=== PATIENT | female | born 1960 | race Caucasian/White ===

== ENCOUNTER 2016-06-30 14:23 | Inpatient (IN) | payer MEDICAID, MEDICARE ==
[2016-06-30] MEDS ORDERED: Ondansetron INJ* 2 MG/ML VIAL IV ONE (15:45)
[2016-06-30] MEDS ORDERED: Morphine INJ* 4 MG/ML 1 ML CARPUJECT IV ONE (15:45)
[2016-06-30 15:55] LABS: Hematocrit 33 % (35-47); Hemoglobin 10.4 g/dl (12.0-16.0); Mean Corpuscular HGB Conc 32 g/dl (31-36); Mean Corpuscular Hemoglobin 27 pg (27-31); Mean Corpuscular Volume 85 fL (80-97); Mean Platelet Volume 7 um3 (7.4-10.4); Red Blood Count 3.81 10^6/ul (4.0-5.4); Red Cell Distribution Width 15 % (10.5-15); White Blood Count 6.1 10^3/ul (3.5-10.8)
[2016-06-30 16:06] LABS: Albumin 3.1 g/dL (3.2-5.2); BUN/Creatinine Ratio 4.8 (8-20); Calcium 9.3 mg/dL (8.6-10.3); EGFR African American 3.4 (>60); EGFR Non-African American 2.6 (>60); Globulin 3.1 g/dL (2-4); Magnesium 2.6 mg/dL (1.9-2.7); Phosphorus 9.5 mg/dL (2.5-5.0); Potassium 5.1 mmol/L (3.5-5.0); Total Bilirubin 0.4 mg/dL (0.2-1.0); Total Protein 6.2 g/dL (6.4-8.9)
[2016-06-30 16:22] LABS: Troponin I 0.07 ng/mL (<0.04)
[2016-06-30 16:30] LABS: TSH (Thyroid Stimulating Horm) 4.18 mcIU/mL (0.34-5.60)
--- NOTE | 2016-06-30 16:30 | RAD ---
INDICATION: Left lower posterior chest pain, not eating, diarrhea. COMPARISON: Comparison is made with a prior CT of the chest from January 04, [address] of the abdomen and pelvis from August 12, 2015. TECHNIQUE: A CT scan of the chest, abdomen and pelvis was performed without intravenous or oral contrast. Contiguous axial sections were obtained from the lung apices through the symphysis pubis. Images were reconstructed in the coronal and sagittal planes. FINDINGS: There are bilateral diffuse groundglass infiltrates with smaller consolidative infiltrates in the anterior aspect of the right upper lobe and within the lingula. There are small bilateral pleural effusions. The lungs are hyperinflated most consistent with chronic obstructive pulmonary disease. No significant enlarged mediastinal or hilar lymph nodes are seen. The heart is mildly enlarged. The thoracic aorta is normal in caliber. There is moderate calcific plaque present. The liver is moderately enlarged. There is a 2.0 cm fluid density lesion in the superior aspect of the right hepatic lobe which is unchanged from the prior exam most consistent with a cyst. The spleen is moderately enlarged and unchanged. The gallbladder is distended. No calcified gallstones are seen. No pancreatic ductal distention or calcifications are seen. The kidneys are enlarged with numerous cysts simple and complex and multiple renal calcifications and calculi most consistent with autosomal dominant polycystic kidney disease. No gross hydronephrosis is seen. The aorta is normal in caliber and there is severe calcific plaque present. No significant enlarged retroperitoneal lymph nodes are seen. There is a small hiatal hernia. The stomach, small and large bowel appear nondistended. The appendix is not visualized. There is mild thickening of the wall of the ascending colon suggesting the possibility of colitis. There is moderate to severe sigmoid diverticulosis without evidence for diverticulitis. There is a peritoneal dialysis catheter present within the right lower quadrant. There is a small amount of free intraperitoneal fluid present within the abdomen and pelvis. No free peritoneal air is seen. There are multiple old bilateral rib fractures some of which are ununited. There is a ununited fracture of the manubrium of the sternum and likely subacute in duration. There is a subacute fracture of the anterolateral aspect of the right iliac crest with surrounding bony callus. There are old healed fractures of the inferior pubic rami on both sides. IMPRESSION: 1. THE DIFFUSE BILATERAL GROUNDGLASS INFILTRATES AND SMALL BILATERAL PLEURAL EFFUSIONS MOST CONSISTENT WITH CONGESTIVE HEART FAILURE LESS LIKELY PNEUMONIA. 2. MILD THICKENING OF THE WALL OF THE ASCENDING COLON SUGGESTING THE POSSIBILITY OF COLITIS. 3. FINDINGS CONSISTENT WITH AUTOSOMAL DOMINANT POLYCYSTIC KIDNEY DISEASE WITH MULTIPLE SIMPLE, COMPLEX CYSTS AND RENAL CALCULI. 4. HEPATOSPLENOMEGALY, UNCHANGED. 5. THERE IS A PERITONEAL DIALYSIS CATHETER IN PLACE AND A SMALL AMOUNT OF FREE INTRAPERITONEAL FLUID. 5. SUBACUTE FRACTURES OF THE MANUBRIUM AND RIGHT ILIAC CREST.
[2016-06-30] MEDS ORDERED: NS 0.9% 500 ML* 500 ML IV ONE (18:14)
[2016-06-30] MEDS ORDERED: Al Hydrox/Mg Hydrox/Simet LIQ* 30 ML UDC PO PRN (18:15)
[2016-06-30] MEDS ORDERED: traMADol TAB* 50 MG PO PRN (18:18)
[2016-06-30] MEDS ORDERED: LORazepam TAB(*) 1 MG PO PRN (18:18)
[2016-06-30] MEDS ORDERED: Acetaminophen TAB* 325 MG PO PRN (18:18)
--- NOTE | 2016-06-30 18:50 | ED ---
Armaan Morales Janilya, scribed for Rohith Hassan MD on 06/30/16 at 1534 . GI/ HPI <Michelle Hernadez - Last Filed: 06/30/16 16:24> - HPI Summary HPI Summary: A 55 y/o came in to [facility] presenting w/ flu-like symptoms starting "a few days ago". Pt reports nausea, body aches, chills, diarrhea, unsure about fever. In addition, pt states she has baseline left sided abd pain that she has had for about a month due to a fall that resulted in broken ribs. Pain worse with palpation. Pt denies rash, but confirms itchy sensations. Pt has not had an adequate diet for about a week. PMHx polycystic renal disease and peritoneal dialysis for about 10 years. Pt did not take any pain medication today. Pt normally takes Hydrocodone. - History of Current Complaint Hx Obtained From: Patient Onset/Duration: Started Days Ago, Still Present Timing: Constant, Lasting Days Severity: Moderate Current Severity: Moderate Pain Intensity: 8 Location of Pain: LUQ, LLQ - Additional Pertinent History Primary Care Physician: [id number] <Rohith Hassan - Last Filed: 06/30/16 18:50> - History of Current Complaint Chief Complaint: EDGeneral Time Seen by Provider: 06/30/16 14:38 Stated Complaint: HAVENT EATEN IN DAYS DIALYSIS PT - Allergy/Home Medications Allergies/Adverse Reactions: Allergies Allergy/AdvReac Type Severity Reaction Status Date / Time Adhesive Tape Allergy Hives Verified 06/30/16 14:30 Codeine Allergy GI Upset Verified 06/30/16 14:30 PMH/Surg Hx/FS Hx/Imm Hx Endocrine/Hematology History: Reports: Hx Anemia - gets epogen shot Denies: Hx Diabetes, Hx Systemic Lupus Erythematosus, Hx Thyroid Disease Cardiovascular History: Reports: Hx Aneurysm, Hx Congestive Heart Failure, Hx Coronary Artery Disease, Hx Hypercholesterolemia, Hx Hypertension, Other Cardiovascular Problems/Disorders - CAD, PR Denies: Hx Pacemaker/ICD, Hx Peripheral Vascular Disease Respiratory History: Reports: Hx Chronic Obstructive Pulmonary Disease (COPD), Hx Pleural Effusion Denies: Hx Pneumonia GI History: Reports: Hx Gastroesophageal Reflux Disease, Hx Ulcer History: Reports: Hx Chronic Renal Failure, Hx Dialysis, Hx Kidney Infection , Hx Renal Disease - dialysis daily, Other Problems/Disorders - polycystic kidney Denies: Hx Kidney Stones Musculoskeletal History: Reports: Hx Rheumatoid Arthritis, Other Musculoskeletal History - LEFT HIP FX Denies: Hx Arthritis, Hx Osteoporosis Sensory History: Reports: Hx Contacts or Glasses - reading glasses only Denies: Hx Cataracts, Hx Glaucoma, Hx Deafness, Hx Hearing Aid, Hx Hearing Problem Opthamlomology History: Reports: Hx Contacts or Glasses - reading glasses only Denies: Hx Cataracts, Hx Glaucoma Neurological History: Reports: Hx CVA, Other Neuro Impairments/Disorders - brain aneurism Psychiatric History: Reports: Hx Anxiety Denies: Hx Depression, Hx Panic Disorder, Hx Post Traumatic Stress Disorder, Other Psychiatric Issues/Disorders - Cancer History Hx Chemotherapy: No - Surgical History Surgery Procedure, Year, and Place: dialysis port x2 Hx Anesthesia Reactions: No - Immunization History Date of Tetanus Vaccine: Unknown Infectious Disease History: No Infectious Disease History: Denies: Traveled Outside the [place] in Last 30 Days - Family History Known Family History: Negative: Cardiac Disease, Hypertension, Diabetes - Social History Alcohol Use: None Substance Use Type: Reports: None Smoking Status (MU): Former Smoker Type: Cigarettes Amount Used/How Often: not much, only while in college Have You Smoked in the Last Year: No <Rohith Hassan - Last Filed: 06/30/16 18:50> Review of Systems Positive: Fever - pt is unsure, Chills Positive: Diarrhea, Nausea Positive: Arthralgia - left sided tenderness, Myalgia - left sided tenderness Negative: Rash - pt confirms itchy sensations All Other Systems Reviewed And Are Negative: Yes <Rohith Hassan - Last Filed: 06/30/16 18:50> Physical Exam Vital Signs On Initial Exam: Initial Vitals Temp Pulse Resp BP Pulse Ox 98.1 F 72 18 139/74 100 06/30/16 14:30 06/30/16 14:30 06/30/16 14:30 06/30/16 14:30 06/30/16 14:30 <Michelle Hernadez - Last Filed: 06/30/16 16:24> Triage Information Reviewed: Yes Vital Signs On Initial Exam: Initial Vitals Temp Pulse Resp BP Pulse Ox 98.1 F 72 18 139/74 100 06/30/16 14:30 06/30/16 14:30 06/30/16 14:30 06/30/16 14:30 06/30/16 14:30 Vital Signs Reviewed: Yes Appearance: Positive: Ill-Appearing - mild-moderately, pale Skin: Positive: Warm, Skin Color Reflects Adequate Perfusion, Dry Head/Face: Positive: Normal Head/Face Inspection, Other - dry mucous membrane Eyes: Positive: EOMI, HEVER ENT: Positive: Normal ENT inspection Neck: Positive: Supple, Nontender Respiratory/Lung Sounds: Positive: Clear to Auscultation, Breath Sounds Present Cardiovascular: Positive: RRR Abdomen Description: Positive: Nontender, Soft Bowel Sounds: Positive: Hypoactive Musculoskeletal: Positive: Other - tenderness in left posterior ribs Neurological: Positive: Normal, Sensory/Motor Intact, Alert, Oriented to Person Place, Time Psychiatric: Positive: Affect/Mood Appropriate <Rohith Hassan - Last Filed: 06/30/16 18:50> Diagnostics - Vital Signs Vital Signs Temp Pulse Resp BP Pulse Ox 06/30/16 16:00 17 06/30/16 15:36 70 90 06/30/16 15:34 146/71 06/30/16 14:30 98.1 F 72 18 139/74 100 - Laboratory Lab Results: Lab Results 06/30/16 06/30/16 06/30/16 Range/Units 15:35 15:35 15:35 WBC 6.1 (3.5-10.8) 10^3/ul RBC 3.81 L (4.0-5.4) 10^6/ul Hgb 10.4 L (12.0-16.0) g/dl Hct 33 L (35-47) % MCV 85 (80-97) fL MCH 27 (27-31) pg MCHC 32 (31-36) g/dl RDW 15 (10.5-15) % Plt Count 151 (150-450) 10^3/ul MPV 7 L (7.4-10.4) um3 Neut % (Auto) 76.3 (38-83) % Lymph % (Auto) 14.2 L (25-47) % Isabella % (Auto) 8.5 (1-9) % Eos % (Auto) 0 (0-6) % Baso % (Auto) 1.0 (0-2) % Absolute Neuts (auto) 4.7 (1.5-7.7) 10^3/ul Absolute Lymphs (auto) 0.9 L (1.0-4.8) 10^3/ul Absolute Monos (auto) 0.5 (0-0.8) 10^3/ul Absolute Eos (auto) 0 (0-0.6) 10^3/ul Absolute Basos (auto) 0.1 (0-0.2) 10^3/ul Absolute Nucleated RBC 0 10^3/ul Nucleated RBC % 0 INR (Anticoag Therapy) 0.91 (0.89-1.11) APTT 38.7 H (26.0-36.3) seconds Sodium 133 (133-145) mmol/L Potassium 5.1 H (3.5-5.0) mmol/L Chloride 93 L (101-111) mmol/L Carbon Dioxide 23 (22-32) mmol/L Anion Gap 17 H (2-11) mmol/L BUN 70 H (6-24) mg/dL Creatinine 14.60 H (0.51-0.95) mg/dL Est GFR ( Amer) 3.4 (>60) Est GFR (Non-Af Amer) 2.6 (>60) BUN/Creatinine Ratio 4.8 L (8-20) Glucose 82 (70-100) mg/dL Lactic Acid (0.5-2.0) mmol/L Calcium 9.3 (8.6-10.3) mg/dL Phosphorus 9.5 H (2.5-5.0) mg/dL Magnesium 2.6 (1.9-2.7) mg/dL Total Bilirubin 0.40 (0.2-1.0) mg/dL AST 10 L (13-39) U/L ALT 6 L (7-52) U/L Alkaline Phosphatase 92 (34-104) U/L Total Creatine Kinase 116 (10-223) U/L CK-MB (CK-2) 13.4 H (0.6-6.3) ng/mL Troponin I 0.07 H* (<0.04) ng/mL C-Reactive Protein 47.00 H (< 5.00) mg/L B-Natriuretic Peptide ( - 100) pg/mL Total Protein 6.2 L (6.4-8.9) g/dL Albumin 3.1 L (3.2-5.2) g/dL Globulin 3.1 (2-4) g/dL Albumin/Globulin Ratio 1.0 (1-3) Lipase 16 (11.0-82.0) U/L TSH Pending 06/30/16 06/30/16 Range/Units 15:35 15:35 WBC (3.5-10.8) 10^3/ul RBC (4.0-5.4) 10^6/ul Hgb (12.0-16.0) g/dl Hct (35-47) % MCV (80-97) fL MCH (27-31) pg MCHC (31-36) g/dl RDW (10.5-15) % Plt Count (150-450) 10^3/ul MPV (7.4-10.4) um3 Neut % (Auto) (38-83) % Lymph % (Auto) (25-47) % Isabella % (Auto) (1-9) % Eos % (Auto) (0-6) % Baso % (Auto) (0-2) % Absolute Neuts (auto) (1.5-7.7) 10^3/ul Absolute Lymphs (auto) (1.0-4.8) 10^3/ul Absolute Monos (auto) (0-0.8) 10^3/ul Absolute Eos (auto) (0-0.6) 10^3/ul Absolute Basos (auto) (0-0.2) 10^3/ul Absolute Nucleated RBC 10^3/ul Nucleated RBC % INR (Anticoag Therapy) (0.89-1.11) APTT (26.0-36.3) seconds Sodium (133-145) mmol/L Potassium (3.5-5.0) mmol/L Chloride (101-111) mmol/L Carbon Dioxide (22-32) mmol/L Anion Gap (2-11) mmol/L BUN (6-24) mg/dL Creatinine (0.51-0.95) mg/dL Est GFR ( Amer) (>60) Est GFR (Non-Af Amer) (>60) BUN/Creatinine Ratio (8-20) Glucose (70-100) mg/dL Lactic Acid 0.7 (0.5-2.0) mmol/L Calcium (8.6-10.3) mg/dL Phosphorus (2.5-5.0) mg/dL Magnesium (1.9-2.7) mg/dL Total Bilirubin (0.2-1.0) mg/dL AST (13-39) U/L ALT (7-52) U/L Alkaline Phosphatase (34-104) U/L Total Creatine Kinase (10-223) U/L CK-MB (CK-2) (0.6-6.3) ng/mL Troponin I (<0.04) ng/mL C-Reactive Protein (< 5.00) mg/L B-Natriuretic Peptide 1193 H ( - 100) pg/mL Total Protein (6.4-8.9) g/dL Albumin (3.2-5.2) g/dL Globulin (2-4) g/dL Albumin/Globulin Ratio (1-3) Lipase (11.0-82.0) U/L TSH Result Diagrams: 06/30/16 15:35 06/30/16 15:35 Lab Statement: Any lab studies that have been ordered have been reviewed, and results considered in the medical decision making process. <Michelle Hernadez - Last Filed: 06/30/16 16:24> - Vital Signs Vital Signs Temp Pulse Resp BP Pulse Ox 06/30/16 14:30 98.1 F 72 18 139/74 100 - Laboratory Lab Results: Lab Results 06/30/16 06/30/16 06/30/16 Range/Units 15:35 15:35 15:35 WBC 6.1 (3.5-10.8) 10^3/ul RBC 3.81 L (4.0-5.4) 10^6/ul Hgb 10.4 L (12.0-16.0) g/dl Hct 33 L (35-47) % MCV 85 (80-97) fL MCH 27 (27-31) pg MCHC 32 (31-36) g/dl RDW 15 (10.5-15) % Plt Count 151 (150-450) 10^3/ul MPV 7 L (7.4-10.4) um3 Neut % (Auto) 76.3 (38-83) % Lymph % (Auto) 14.2 L (25-47) % Isabella % (Auto) 8.5 (1-9) % Eos % (Auto) 0 (0-6) % Baso % (Auto) 1.0 (0-2) % Absolute Neuts (auto) 4.7 (1.5-7.7) 10^3/ul Absolute Lymphs (auto) 0.9 L (1.0-4.8) 10^3/ul Absolute Monos (auto) 0.5 (0-0.8) 10^3/ul Absolute Eos (auto) 0 (0-0.6) 10^3/ul Absolute Basos (auto) 0.1 (0-0.2) 10^3/ul Absolute Nucleated RBC 0 10^3/ul Nucleated RBC % 0 INR (Anticoag Therapy) 0.91 (0.89-1.11) APTT 38.7 H (26.0-36.3) seconds Sodium 133 (133-145) mmol/L Potassium 5.1 H (3.5-5.0) mmol/L Chloride 93 L (101-111) mmol/L Carbon Dioxide 23 (22-32) mmol/L Anion Gap 17 H (2-11) mmol/L BUN 70 H (6-24) mg/dL Creatinine 14.60 H (0.51-0.95) mg/dL Est GFR ( Amer) 3.4 (>60) Est GFR (Non-Af Amer) 2.6 (>60) BUN/Creatinine Ratio 4.8 L (8-20) Glucose 82 (70-100) mg/dL Lactic Acid (0.5-2.0) mmol/L Calcium 9.3 (8.6-10.3) mg/dL Phosphorus 9.5 H (2.5-5.0) mg/dL Magnesium 2.6 (1.9-2.7) mg/dL Total Bilirubin 0.40 (0.2-1.0) mg/dL AST 10 L (13-39) U/L ALT 6 L (7-52) U/L Alkaline Phosphatase 92 (34-104) U/L Total Creatine Kinase 116 (10-223) U/L CK-MB (CK-2) 13.4 H (0.6-6.3) ng/mL Troponin I 0.07 H* (<0.04) ng/mL C-Reactive Protein 47.00 H (< 5.00) mg/L B-Natriuretic Peptide ( - 100) pg/mL Total Protein 6.2 L (6.4-8.9) g/dL Albumin 3.1 L (3.2-5.2) g/dL Globulin 3.1 (2-4) g/dL Albumin/Globulin Ratio 1.0 (1-3) Lipase 16 (11.0-82.0) U/L TSH 4.18 (0.34-5.60) mcIU/mL 06/30/16 06/30/16 Range/Units 15:35 15:35 WBC (3.5-10.8) 10^3/ul RBC (4.0-5.4) 10^6/ul Hgb (12.0-16.0) g/dl Hct (35-47) % MCV (80-97) fL MCH (27-31) pg MCHC (31-36) g/dl RDW (10.5-15) % Plt Count (150-450) 10^3/ul MPV (7.4-10.4) um3 Neut % (Auto) (38-83) % Lymph % (Auto) (25-47) % Isabella % (Auto) (1-9) % Eos % (Auto) (0-6) % Baso % (Auto) (0-2) % Absolute Neuts (auto) (1.5-7.7) 10^3/ul Absolute Lymphs (auto) (1.0-4.8) 10^3/ul Absolute Monos (auto) (0-0.8) 10^3/ul Absolute Eos (auto) (0-0.6) 10^3/ul Absolute Basos (auto) (0-0.2) 10^3/ul Absolute Nucleated RBC 10^3/ul Nucleated RBC % INR (Anticoag Therapy) (0.89-1.11) APTT (26.0-36.3) seconds Sodium (133-145) mmol/L Potassium (3.5-5.0) mmol/L Chloride (101-111) mmol/L Carbon Dioxide (22-32) mmol/L Anion Gap (2-11) mmol/L BUN (6-24) mg/dL Creatinine (0.51-0.95) mg/dL Est GFR ( Amer) (>60) Est GFR (Non-Af Amer) (>60) BUN/Creatinine Ratio (8-20) Glucose (70-100) mg/dL Lactic Acid 0.7 (0.5-2.0) mmol/L Calcium (8.6-10.3) mg/dL Phosphorus (2.5-5.0) mg/dL Magnesium (1.9-2.7) mg/dL Total Bilirubin (0.2-1.0) mg/dL AST (13-39) U/L ALT (7-52) U/L Alkaline Phosphatase (34-104) U/L Total Creatine Kinase (10-223) U/L CK-MB (CK-2) (0.6-6.3) ng/mL Troponin I (<0.04) ng/mL C-Reactive Protein (< 5.00) mg/L B-Natriuretic Peptide 1193 H ( - 100) pg/mL Total Protein (6.4-8.9) g/dL Albumin (3.2-5.2) g/dL Globulin (2-4) g/dL Albumin/Globulin Ratio (1-3) Lipase (11.0-82.0) U/L TSH (0.34-5.60) mcIU/mL Result Diagrams: 06/30/16 15:35 06/30/16 15:35 Lab Statement: Any lab studies that have been ordered have been reviewed, and results considered in the medical decision making process. - CT Chest/A/P CT Interpretation: No Acute Changes CT Interpretation Completed By: Radiologist - IMPRESSION: 1. THE DIFFUSE BILATERAL GROUNDGLASS INFILTRATES AND SMALL BILATERAL PLEURAL EFFUSIONS MOST CONSISTENT WITH CONGESTIVE HEART FAILURE LESS LIKELY PNEUMONIA. 2. MILD THICKENING OF THE WALL OF THE ASCENDING COLON SUGGESTING THE POSSIBILITY OF COLITIS. 3. FINDINGS CONSISTENT WITH AUTOSOMAL DOMINANT POLYCYSTIC KIDNEY DISEASE WITH MULTIPLE SIMPLE, COMPLEX CYSTS AND RENAL CALCULI. 4. HEPATOSPLENOMEGALY, UNCHANGED. 5. THERE IS A PERITONEAL DIALYSIS CATHETER IN PLACE AND A SMALL AMOUNT OF FREE INTRAPERITONEAL FLUID. 5. SUBACUTE FRACTURES OF THE MANUBRIUM AND RIGHT ILIAC CREST. <Rohith Hassan - Last Filed: 06/30/16 18:50> GIGU Course/Dx <Michelle Hernadez - Last Filed: 06/30/16 16:24> - Course Assessment/Plan: admit hospitalist stable - Physician Notifications Discussed Care Of Patient With: Called Dr. Bianchi (ornamental metal worker helper) at 1700: was unavailable. Dr. Duffy (hospitalist) at 1720: agrees to admit pt. <Rohith Hassan - Last Filed: 06/30/16 18:50> - Diagnoses Provider Diagnoses: Diarrhea, Dehydration, Renal failure Discharge <Michelle Hernadez - Last Filed: 06/30/16 16:24> <Rohith Hassan - Last Filed: 06/30/16 18:50> - Discharge Plan Condition: Stable Disposition: ADMITTED TO [facility] Referrals: Letty Duffy MD [Primary Care Provider] - The documentation as recorded by the Armaan woods Janilya accurately reflects the service I personally performed and the decisions made by , Rohith Hassan MD.
[2016-06-30] MEDS ORDERED: Sevelamer TAB* 800 MG PO PRN (20:33)
[2016-06-30] MEDS: HYDROcodone/ACETAMIN 5-325 MG* 1 TAB PO SCH (20:55)
[2016-06-30] MEDS: NIFEdipine ER TAB* 30 MG PO SCH (20:55)
[2016-06-30] MEDS: Heparin VIAL(*) 5000 UNITS/ML VIAL (FIVE THOUSAND) SUBCUT SCH (20:57)
[2016-06-30] MEDS: Aliskiren TAB* 300 MG PO SCH (21:01)
[2016-06-30] MEDS: diPHENhydraMINE PO* 25 MG PO PRN (21:09)
[2016-06-30] MEDS: Ondansetron INJ* 2 MG/ML VIAL IV PRN (21:09)
--- NOTE | 2016-06-30 22:07 | HP ---
HISTORY AND PHYSICAL: DATE OF ADMISSION: 06/30/16 PRIMARY CARE PHYSICIAN: Dr. Letty Duffy. CHIEF COMPLAINT: "Sick with the bug." HISTORY OF PRESENT ILLNESS: Ms. Charles is a pleasant 55-year-old female with a past medical histo ry of hypertension; adult polycystic kidney disease, on peritoneal dialysis; depression; CAD, status post [place]; CVA who presented to the hospital with few days of abdominal pain, diarrhea, and decreased p.o. intake. She reports her symptoms began about 1 week ago where she noted crampy, diffuse abdom inal pain and began to have diarrhea. She states she would have somewhere between 3 and 5 watery alex wel movements a day. She denies any blood in the bowel movement. She states that when she goes to the bathroom, her abdominal pain is relieved; however, it will inadvertently return after a few hour s, occasionally waking her up in the middle of the night. She reports some subjective sweats and ch ills; however, has not taken her temperature, has been very nauseous. Denies any emesis, but has be en eating and drinking very little over the past 4 to 5 days. Reports chronic rhinorrhea which is un changed. No cough. Feels that her breathing has been slightly labored over the past 4 to 5 days, b ut states she would not call it "shortness of breath." The patient does not urinate. States she fe els very dehydrated. Last bowel movement was this morning and was watery as well. The patient also states about 1 month ago she fell and since then has had some left- sided chest aman n that has radiated down the left side of her abdomen as well. PAST MEDICAL HISTORY: 1. Hypertension. 2. End-stage renal disease secondary to polycystic kidney disease, on peritoneal dialysis. 3. Cardiomyopathy with an EF of 45% to 50%. 4. Depression. 5. CAD, status post [place]. 6. CVA. PAST SURGICAL HISTORY: PD catheter insertion, removal, and then reinsertion. HOME MEDICATIONS: 1. Tylenol 500 mg by mouth every 6 hours as needed for pain. 2. Coreg 25 mg by mouth 2 times daily. 3. Silvia-Linette 1 tablet by mouth daily. 4. Tekturna 300 mg by mouth daily. 5. Ativan 1 mg by mouth every 6 hours as needed for anxiety. 6. Isordil 30 mg by mouth daily. 7. [place] 10/325 one tablet by mouth every 6 hours as needed for pain. 8. Zofran 4 mg by mouth every 6 hours as needed for nausea. 9. Nifedipine 30 mg by mouth daily. 10. Sevelamer 4000 mg by mouth with meals and snacks. 11. Sertraline 100 mg by mouth daily. 12. Tramadol 50 mg by mouth every 6 hours as needed for pain. 13. Benadryl 25 mg by mouth at bedtime as needed for insomnia. 14. Vitamin E 400 units by mouth daily. ALLERGIES: CODEINE. FAMILY HISTORY: Significant for father with polycystic kidney disease. SOCIAL HISTORY: The patient states she was a social smoker in college; however, does not currently smoke. Denies any alcohol or illicit drug use. REVIEW OF SYSTEMS: A 12-point review of systems negative except for that as noted in the HPI. PHYSICAL EXAMINATION GENERAL: The patient is a pleasant middle-aged female lying in bed in no apparent distres s. VITAL SIGNS: On admission, temperature 98.1, heart rate of 72, respiratory rate of 18, O2 saturatio n 100% on room air, blood pressure 139/74 which has since increased to systolics in the 180s. HEENT: Moist mucous membranes. Pupils equal, round, reactive to light and accommodation. Anicteri c sclerae. NECK: No cervical adenopathy. LUNGS: The patient with some trace rales in left lower lung field. Otherwise clear. No wheezing a ppreciated. CARDIOVASCULAR: Regular rate and rhythm. Mild systolic ejection murmur. ABDOMEN: Soft. Tender to palpation in the left lower quadrant, left upper quadrant, and epigastric area as well as in the right lower quadrant. Bowel sounds are hyperactive. No rebound or guarding . No abdominal distention. PD catheter is in place with no surrounding erythema or edema. EXTREMITIES: No cyanosis, clubbing, or edema. NEUROLOGIC: The patient is alert and oriented x3. No focal neurological deficits. LABS AND DIAGNOSTICS: White blood cell count of 6.1, hemoglobin of 10.4, hematocrit of 33, platele ts of 151. INR of 0.91. Sodium of 133, potassium of 5.1, chloride of 93, carbon dioxide of 23, BUN of 70, creatinine 14.6, glucose of 82, lactic acid of 0.7, phosphorus of 9.5. LFTs within normal l imits. Troponin of 0.07. CRP of 4700. B-natriuretic peptide of 1193. TSH of 4.18. CT of chest, abdomen, and pelvis shows diffuse bilateral ground-glass infiltrates and small bilatera l effusions. Mild thickening of the wall of the ascending colon suggesting the possibility of colit is. Findings consistent with autosomal dominant polycystic kidney disease with multiple simple comp ashley cysts and renal calculi. Hepatosplenomegaly unchanged. PD catheter in place. Small amount of f ree intraperitoneal fluid. Subacute fractures of the manubrium and right iliac crest. ASSESSMENT AND PLAN: Dehydration secondary to likely viral infection causing nausea, diarrhea, and decreased p.o. intake in a 55-year-old female with a past medical history of hypertension; polycysti c kidney disease, on peritoneal dialysis; coronary artery disease, status post myocardial infarction ; cerebrovascular accident; depression; and mild cardiomyopathy. 1. Dehydration secondary to viral GI infection: The patient appears somewhat dry on exam and her l abs, specifically her hemoglobin and hematocrit are much higher than her baseline. Also has a mildl y elevated BUN/creatinine ratio. The patient is not having any nausea currently. The diarrhea seem s to have subsided. We will give her 500 cc of IV fluid over 5 hours and write for a diet. The ED physician has ordered a number of stool tests which are pending at this time. I do not think this i s a bacterial infection necessitating any antibiotics. I will write for p.r.n. Zofran IV and have t he patient's pain medications available as well. 2. Hypertension: Blood pressure is elevated. We will restart the patient's home blood pressure me dications with all but her Isordil to start today and restart her daily medications tomorrow morning . 3. End-stage renal disease, on peritoneal dialysis secondary to adult polycystic kidney disease: I have contacted the PD nurse who will touch base with Dr. Bianchi to see if he feels that she needs P D tonight. If so, they will come in and do that. We will continue her Silvia-Linette and sevelamer. He r phosphorus is elevated at 9.5, but seems to be somewhat close to where she usually runs. She has no acidosis and only a very mild hyperkalemia. 4. Chronic pain: Continue home [place], Tylenol and tramadol. 5. Depression/anxiety: Continue home Zoloft and lorazepam. 6. DVT prophylaxis: Heparin subcu. 7. Code status: The patient is a full code. TIME SPENT: Total time spent on this admission, 45 minutes with over half the time spent face-to-fa ce with the patient, counseling and coordinating care. [id number]/CPS #: [id number]
[2016-07-01] MEDS: HYDROcodone/ACETAMIN 5-325 MG* 1 TAB PO SCH ×5 (01:07→23:52)
[2016-07-01] MEDS: Heparin VIAL(*) 5000 UNITS/ML VIAL (FIVE THOUSAND) SUBCUT SCH ×3 (05:14→21:08)
[2016-07-01 05:42] LABS: BUN/Creatinine Ratio 5.1 (8-20); Calcium 8.7 mg/dL (8.6-10.3); EGFR African American 3.4 (>60); EGFR Non-African American 2.6 (>60); Potassium 5.2 mmol/L (3.5-5.0)
[2016-07-01] MEDS: Ondansetron INJ* 2 MG/ML VIAL IV PRN ×2 (08:35→12:58)
[2016-07-01] MEDS: Vitamin B Complex TAB PO SCH (08:38)
[2016-07-01] MEDS: Folic Acid TAB* 1 MG PO SCH (08:39)
[2016-07-01] MEDS: Carvedilol TAB* 25 MG PO SCH ×2 (08:40→17:38)
[2016-07-01] MEDS: Vitamin E CAP* 400 UNIT PO SCH (08:40)
[2016-07-01] MEDS: Sertraline* 50 MG TAB PO SCH (08:40)
[2016-07-01] MEDS: NIFEdipine ER TAB* 30 MG PO SCH (08:40)
[2016-07-01] MEDS: Isosorbide Mononitrate ER TAB* 30 MG PO SCH (08:40)
[2016-07-01] MEDS: Sevelamer TAB* 800 MG PO SCH ×3 (08:41→17:39)
[2016-07-01] MEDS: Aliskiren TAB* 300 MG PO SCH (08:41)
[2016-07-01 09:46] LABS: Urine Bacteria Absent (Absent); Urine Bilirubin Negative (Negative); Urine Glucose 1+(50 mg/dL) (Negative); Urine Nitrite Negative (Negative)
--- NOTE | 2016-07-01 11:47 | PN ---
Subjective Date of Service: 07/01/16 Interval History: Patient seen this morning. States she was feeling a little SOB this morning and was noted to be hypoxic. Had a turkey sandwich last night with no problem, this morning had a bigger breakfast and now is having nausea and abdominal discomfort. Also very tired as she did not sleep well. States she has been on oxygen in the hospital before but that was from CO poisoning and maybe PNA. Did not get PD last night. Family History: Unchanged from Admission Social History: Unchanged from Admission Past Medical History: Unchanged from Admission Objective Active Medications: Acetaminophen (Tylenol Tab*) 325 mg PO Q6H PRN Acetaminophen/Hydrocodone Bitart (White 5-325 Tab*) 2 tab PO Q6H GUY Al Hydrox/Mg Hydrox/Simethicone (Maalox Plus*) 30 ml PO Q6H PRN Aliskiren (Tekturna Tab*) 300 mg PO DAILY GUY Carvedilol (Coreg Tab*) 25 mg PO BID WITH MEALS GUY Diphenhydramine HCl (Benadryl Po*) 25 mg PO BEDTIME PRN Folic Acid (Folvite Tab*) 0.5 mg PO DAILY GUY Heparin Sodium (Porcine) (Heparin Vial(*)) 5,000 units SUBCUT Q8HR GUY Isosorbide Mononitrate (Imdur Er Tab*) 30 mg PO DAILY GUY Lorazepam (Ativan Tab(*)) 1 mg PO Q6H PRN Nifedipine (Procardia Xl Tab*) 30 mg PO DAILY GUY Ondansetron HCl (Zofran Inj*) 4 mg IV Q4H PRN Sertraline HCl (Zoloft*) 100 mg PO DAILY GUY Sevelamer Carbonate (Renvela Tab*) 4,000 mg PO TID WITH MEALS GUY Sevelamer Carbonate (Renvela Tab*) 4,000 mg PO .SEE COMMENTS PRN Tramadol HCl (Ultram*) 50 mg PO Q6H PRN Vitamin B Complex/Vitamin E (Complex B-100*) 1 tab PO DAILY GUY Vitamin E (Vitamin E Cap*) 400 unit PO DAILY GUY Vital Signs 06/30/16 06/30/16 06/30/16 18:30 19:48 20:30 Temperature 97.6 F 97.2 F Pulse Rate 70 72 72 Respiratory 16 17 Rate Blood Pressure 180/87 172/77 170/88 (mmHg) O2 Sat by Pulse 91 97 Oximetry 06/30/16 07/01/16 07/01/16 23:43 01:07 03:07 Temperature 98.1 F Pulse Rate 74 Respiratory 16 17 17 Rate Blood Pressure 179/81 (mmHg) O2 Sat by Pulse 93 Oximetry 07/01/16 07/01/16 07/01/16 08:00 08:06 11:23 Temperature 98.1 F 98.3 F Pulse Rate 74 67 Respiratory 20 20 18 Rate Blood Pressure 149/67 164/82 (mmHg) O2 Sat by Pulse 87 97 Oximetry Oxygen Devices in Use Now: Nasal Cannula - 2-3L Appearance: Middle-aged, F, ill-appearing, laying in bed fatigued, NAD Eyes: No Scleral Icterus Ears/Nose/Mouth/Throat: - - Dry MM Neck: NL Appearance and Movements; NL JVP Respiratory: Symmetrical Chest Expansion and Respiratory Effort, - - Trace rales in the bases, good air movement Cardiovascular: NL Sounds; No Murmurs; No JVD, - - mild DONALD Abdominal: - - Soft, non-distended, BS+, mild TTP in lower abdomen, no rebound/ guarding Lymphatic: No Cervical Adenopathy Extremities: No Edema Skin: No Rash or Ulcers Neurological: - - Fatigued but oriented x3 Lines/Tubes/Other Access: Clean, Dry and Intact Other Access - PD cath Result Diagrams: 06/30/16 15:35 07/01/16 04:48 Microbiology and Other Data: Microbiology 07/01/16 06:50 Nasal Screen MRSA (PCR)(HANNAH) - Final Nasal Mrsa Negative Assess/Plan/Problems-Billing Assessment: Viral enteritis/colitis in a 55 yo F with hx of HTN, APKD on PD, CAD s/p [place], CVA , depression and mild cardiomyopathy. Course now complicated by hypoxia. - Patient Problems (1) Gastroenteritis and colitis, viral Current Visit: Yes Comment: Symptoms seem to be slowly improving although some problems with breakfast this morning. Has had no BMs since admission. Cancel C diff testing. Hold on additional IVF for now. Continue anti-emetics. (2) Hypoxia Current Visit: Yes Comment: Unable to wean off O2 this morning. ?due to IVF given yesterday, was only 500 cc. Did not get PD overnight. Will get CXR. Incentive spirometer. Do not think this is respiratory infection. (3) HTN (hypertension) Current Visit: Yes Comment: BP improved this morning. Continue home medications. (4) ESRD (end stage renal disease) Current Visit: No Comment: 2/2 APKD. Spoke with PD nurse who talked with Dr. Bianchi who did not recommend PD overnight. Alerted them to the hypoxia and that patient may be in the hospital an additional night. (5) Chronic pain Current Visit: Yes Comment: Continue home pain medications (6) History of depression Current Visit: No Comment: Continue zoloft (7) DVT prophylaxis Current Visit: No Comment: Heparin SQ. Status and Disposition: Pending improvement in hypoxia and GI symptoms
--- NOTE | 2016-07-01 12:04 | RAD ---
INDICATION: Shortness of breath and hypoxia. COMPARISON: Comparison is made with a prior CT of the chest from June 30, 2016. TECHNIQUE: A portable view of the chest was obtained. FINDINGS: The heart is moderately enlarged. There is diffuse prominence of the interstitial markings. There is a more focal infiltrate at the left lung base. There are small bilateral pleural effusions left greater than right. These findings appear to have progressed from the prior study. IMPRESSION: FINDINGS SUGGESTIVE OF CONGESTIVE HEART FAILURE LESS LIKELY PNEUMONIA DEMONSTRATING INTERVAL PROGRESSION.
[2016-07-01] MEDS ORDERED: PROCHLORPERAZINE INJ 5 MG/ML 2 ML VIAL IV PRN (14:18)
[2016-07-01] MEDS ORDERED: Simethicone TAB* 80 MG TAB.CHEW PO PRN (14:18)
[2016-07-01] MEDS: diPHENhydraMINE PO* 25 MG PO PRN (23:52)
[2016-07-02] MEDS: Heparin VIAL(*) 5000 UNITS/ML VIAL (FIVE THOUSAND) SUBCUT SCH (04:43)
[2016-07-02] MEDS: HYDROcodone/ACETAMIN 5-325 MG* 1 TAB PO SCH (06:00)
[2016-07-02 08:19] VITALS: BP 156/70
[2016-07-02] MEDS: Folic Acid TAB* 1 MG PO SCH (08:24)
[2016-07-02] MEDS: Aliskiren TAB* 300 MG PO SCH (08:24)
[2016-07-02] MEDS: Vitamin E CAP* 400 UNIT PO SCH (08:24)
[2016-07-02] MEDS: NIFEdipine ER TAB* 30 MG PO SCH (08:24)
[2016-07-02] MEDS: Isosorbide Mononitrate ER TAB* 30 MG PO SCH (08:25)
[2016-07-02] MEDS: Carvedilol TAB* 25 MG PO SCH (08:25)
[2016-07-02] MEDS: Sertraline* 50 MG TAB PO SCH (08:25)
[2016-07-02] MEDS: Vitamin B Complex TAB PO SCH (08:25)
[2016-07-02] MEDS: Sevelamer TAB* 800 MG PO SCH (08:26)
[2016-07-02 09:10] LABS: BUN/Creatinine Ratio 4.5 (8-20); EGFR African American 3.3 (>60); EGFR Non-African American 2.6 (>60); Potassium 5.3 mmol/L (3.5-5.0)
--- NOTE | 2016-07-02 10:53 | DCNOTE ---
Patient seen this morning. Says she feels "much better" today. More energy. Weaned off O2. No issues. On exam, RRR, s1 and s2 present, no m/g/r, abd soft, NTND, BS+, no LE edema D/C home today. F/U with PCP and Dr. Bianchi
[2016-07-02] MEDS ORDERED: Epoetin Alfa* 2,000 UNITS/ML VIAL SUBCUT ONE (11:00)
[2016-07-02] MEDS ORDERED: Epoetin Alfa* 3,000 UNITS/ML VIAL SUBCUT ONE (11:00)
[2016-07-02] MEDS ORDERED: Epoetin Alfa* 10,000 UNITS/ML VIAL SUBCUT ONE (11:00)
--- NOTE | 2016-07-03 08:35 | DS ---
DISCHARGE SUMMARY: DATE OF ADMISSION: 06/30/16 DATE OF DISCHARGE: 07/02/16 PRIMARY CARE PHYSICIAN: Dr. Letty Duffy. PRINCIPAL DISCHARGE DIAGNOSES: 1. Viral gastroenteritis. 2. Dehydration. 3. Hypoxia. SECONDARY DIAGNOSES: 1. Hypertension. 2. End-stage renal disease secondary to polycystic kidney disease, on peritoneal dialysis. 3. Depression. 4. CAD status post [place]. 5. CVA; cardiomyopathy with an EF of 45% to 50%. DISCHARGE MEDICATION REGIMEN: 1. Tylenol 500 mg by mouth every 6 hours as needed for pain. 2. Coreg 25 mg by mouth 3 times daily. 3. B-complex 1 tablet by mouth daily. 4. Tekturna 300 mg by mouth daily. 5. Lorazepam 1 mg by mouth every 6 hours as needed for anxiety. 6. Isosorbide 30 mg by mouth daily. 7. Minden 10/325 one tablet by mouth every 6 hours as needed for pain. 8. Zofran 4 mg by mouth every 6 hours as needed for nausea. 9. Nifedipine 30 mg by mouth daily. 10. Sevelamer 4000 mg by mouth with meals and snacks. 11. Sertraline 100 mg by mouth daily. 12. Tramadol 50 mg by mouth every 6 hours as needed for pain. 13. Benadryl 25 mg by mouth at bedtime as needed for insomnia. 14. Vitamin E 400 units by mouth daily. STUDIES DONE DURING HOSPITALIZATION: CT chest, abdomen, and pelvis, impression : Diffuse bilateral ground-glass infiltrates with small bilateral pleural effusions most consistent with congestive heart failure, less likely pneumonia. Mild thickening of the wall of the ascending colon suggesting the possibility of colitis. Findings consistent with autosomal dominant polycystic kidney disease with multiple complex cysts and renal calculi. Hepatosplenomegaly unchanged. There is a peritoneal dialysis catheter in place and a small amount of free intraperitoneal fluid. Subacute fracture of the manubrium and right iliac crest. Chest x-ray, impression: Findings suggestive of congestive heart failure, less likely pneumonia, demonstrating interval progression. HISTORY OF PRESENT ILLNESS AND HOSPITAL SUMMARY: Please see my full history and physical for full details. Briefly, Ms. Charles is a pleasant 55-year-old female with a past medical history as above, who presented to the hospital with abdominal pain, diarrhea, decreased p.o. intake. The patient states she had about 1 week of abdominal discomfort and diarrhea. She states she initially should have come to the hospital sooner, however, she was trying to tough it out at home, however was taking very little orally. The patient's exam and labs indicated dehydration. She was given a small amount of IV fluids in the emergency department. The following day, diarrhea symptom improved; however, the patient remained somewhat nauseous and was not taking very much p.o. and she was also noted to be hypoxic requiring nasal cannula oxygen. The patient underwent peritoneal dialysis with improvement in her symptoms and we were able to wean her off oxygen. On the day of discharge, she felt well, was still not eating much, but the diarrhea had resolved and she had no shortness of breath. She will be discharged home. She can follow up with her PCP and with Dr. Bianchi. TIME SPENT: Total time spent on this discharge, 45 minutes. This is a summary of the hospitalization. Please see the full medical record for further details. CC: Dr. Letty Duffy; Dr. Bianchi * [id number]/CPS #: [id number] MTDD
== END 2016-07-02 11:40 | disposition home or self-care (01) | DRG 391 ==
LOC: ED 14:23 → MEDTELE 18:15 → OBSVTOIN 07-01 17:48
PROVIDERS: ADMIT Hospitalist; ATTEND Hospitalist
PROC: 3E1M39Z Irrigation of Peritoneal Cavity using Dialysate, Percutaneous Approach (ICD-10-PCS; principal; 2016-07-01)
DX: A08.4 Viral intestinal infection, unspecified (principal); N18.6 End stage renal disease; I42.9 Cardiomyopathy, unspecified; I13.11 Hypertensive heart and chronic kidney disease without heart failure, with stage 5 chronic kidney disease, or end stage renal disease; Q61.2 Polycystic kidney, adult type; E86.0 Dehydration; R09.02 Hypoxemia; I25.10 Atherosclerotic heart disease of native coronary artery without angina pectoris; F32.9 Major depressive disorder, single episode, unspecified; Z99.2 Dependence on renal dialysis; Z86.73 Personal history of transient ischemic attack (TIA), and cerebral infarction without residual deficits; I25.2 Old myocardial infarction; Z79.1 Long term (current) use of non-steroidal anti-inflammatories (NSAID); Z79.899 Other long term (current) drug therapy; Z88.6 Allergy status to analgesic agent; Z84.1 Family history of disorders of kidney and ureter
CPT/HCPCS: 36415; 71010; 71250; 74176; 80048; 80053; 81003; 81015; 82550; 82553; 83605; 83690; 83735; 83880; 84100; 84443; 84484; 85025; 85610; 85730; 86140; 87077; 87086; 87186; 87641; 90945; 94760; A9270-GY; G0257; G0378; J0780; J0885; J1644; J2270; J2405

== ENCOUNTER 2016-12-02 17:17 | Emergency (ER) | payer MEDICARE, MEDICAID ==
[2016-12-02] MEDS ORDERED: Acetaminophen TAB* 325 MG PO ONE (18:04)
--- NOTE | 2016-12-02 18:08 | ED ---
Head Injury - HPI Summary HPI Summary: 56F presents with head injury today. She was walking on the sidewalk and tripped and fell onto head and right knee. She denies any LOC or n/v. She is on ASA for a stroke. she was able to ambulate into the ED. She also complains of right knee pain and swelling. She denies any numbness or tingling. She is a dialysis patient. - History Of Current Complaint Chief Complaint: EDHeadInjury Stated Complaint: FALL, Time Seen by Provider: 12/02/16 17:55 Pain Intensity: 0 - Allergies/Home Medications Allergies/Adverse Reactions: Allergies Allergy/AdvReac Type Severity Reaction Status Date / Time Adhesive Tape Allergy Hives Verified 06/30/16 14:30 Codeine Allergy GI Upset Verified 06/30/16 14:30 PMH/Surg Hx/FS Hx/Imm Hx Endocrine/Hematology History: Reports: Hx Anemia - gets epogen shot Denies: Hx Diabetes, Hx Systemic Lupus Erythematosus, Hx Thyroid Disease Cardiovascular History: Reports: Hx Aneurysm, Hx Congestive Heart Failure, Hx Coronary Artery Disease, Hx Hypercholesterolemia, Hx Hypertension, Other Cardiovascular Problems/Disorders - CAD, [place] Denies: Hx Pacemaker/ICD, Hx Peripheral Vascular Disease Respiratory History: Reports: Hx Chronic Obstructive Pulmonary Disease (COPD), Hx Pleural Effusion Denies: Hx Pneumonia GI History: Reports: Hx Gastroesophageal Reflux Disease, Hx Ulcer History: Reports: Hx Chronic Renal Failure, Hx Dialysis, Hx Kidney Infection , Hx Renal Disease - dialysis daily, Other Problems/Disorders - polycystic kidney Denies: Hx Kidney Stones Musculoskeletal History: Reports: Hx Rheumatoid Arthritis, Other Musculoskeletal History - LEFT HIP FX Denies: Hx Arthritis, Hx Osteoporosis Sensory History: Reports: Hx Contacts or Glasses - reading glasses only Denies: Hx Cataracts, Hx Glaucoma, Hx Deafness, Hx Hearing Aid, Hx Hearing Problem Opthamlomology History: Reports: Hx Contacts or Glasses - reading glasses only Denies: Hx Cataracts, Hx Glaucoma Neurological History: Reports: Hx CVA, Other Neuro Impairments/Disorders - brain aneurism Psychiatric History: Reports: Hx Anxiety, Hx Depression Denies: Hx Panic Disorder, Hx Post Traumatic Stress Disorder, Other Psychiatric Issues/Disorders - Cancer History Hx Chemotherapy: No - Surgical History Surgery Procedure, Year, and Place: dialysis port x2 Hx Anesthesia Reactions: No - Immunization History Date of Tetanus Vaccine: Unknown Infectious Disease History: Denies: Traveled Outside the [place] in Last 30 Days - Family History Known Family History: Negative: Cardiac Disease, Hypertension, Diabetes - Social History Alcohol Use: None Substance Use Type: Reports: None Smoking Status (MU): Former Smoker Type: Cigarettes Amount Used/How Often: not much, only while in college Have You Smoked in the Last Year: No Review of Systems Negative: Fever Negative: Chest Pain Negative: Shortness Of Breath Positive: Myalgia - right knee Neurological: Other - head injury All Other Systems Reviewed And Are Negative: Yes Physical Exam Triage Information Reviewed: Yes Vital Signs On Initial Exam: Initial Vitals Temp Pulse Resp BP Pulse Ox 96.7 F 61 17 137/86 98 12/02/16 17:19 12/02/16 17:19 12/02/16 17:19 12/02/16 17:19 12/02/16 17:19 Vital Signs Reviewed: Yes Appearance: Positive: Well-Appearing Skin: Positive: Warm, Dry, Other - abrasion to bridge of noses, under nose, and right knee, Head/Face: Positive: Other - hematoma above left eye, no step off, racoon eyes, godwin sign Eyes: Positive: Normal, EOMI, HEVER, Conjunctiva Clear ENT: Positive: Normal ENT inspection, Pharynx normal, TMs normal Respiratory/Lung Sounds: Positive: Clear to Auscultation, Breath Sounds Present Cardiovascular: Positive: Normal, RRR Musculoskeletal: Positive: Edema Right - right knee, Other - good pulses, tender over right knee Neurological: Positive: Sensory/Motor Intact, Alert, Oriented to Person Place, Time, CN Intact II-III, Finger to Nose - Ernie Coma Scale Best Eye Response: 4 - Spontaneous Best Motor Response: 6 - Obeys Commands Best Verbal Response: 5 - Oriented Diagnostics - Vital Signs Vital Signs Temp Pulse Resp BP Pulse Ox 12/02/16 17:19 96.7 F 61 17 137/86 98 - Laboratory Lab Statement: Any lab studies that have been ordered have been reviewed, and results considered in the medical decision making process. - Radiology knee Xray Interpretation: Positive (See Comments) - IMPRESSION: 1. PROBABLE NONDISPLACED FRACTURE OF THE PROXIMAL DIAPHYSIS OF THE FIBULA. 2. PROMINENT SOFT TISSUE SWELLING IN THE REGION OF THE PATELLAR TENDO Radiology Interpretation Completed By: Radiologist - CT brain CT Interpretation: No Acute Changes - IMPRESSION: 1. NO EVIDENCE FOR ACUTE INTRACRANIAL ABNORMALITY. 2. OLD BILATERAL LACUNAR INFARCTS. CT Interpretation Completed By: Radiologist maxillaryfacial CT Interpretation: No Acute Changes - IMPRESSION: NO EVIDENCE OF FRACTURE. CT Interpretation Completed By: Radiologist Head Injury Course/Dx Course Of Treatment: 56F presents with head injury today. She was walking on the sidewalk and tripped and fell onto head and right knee. She denies any LOC or n/v. She is on ASA for a stroke. she was able to ambulate into the ED. She also complains of right knee pain and swelling. normal neuro exam. moderate amount of edema to right knee. cleaned abrasions on face. CT head and face normal. xray shows possible fibula fracture. discussed with dr gomez and patient and offered knee imbolizer with crutches but pt would like to ANTONIO wrap it and use cane. told to follow up with ortho. patient understands and agrees with plan - Diagnoses Differential Diagnosis/HQI/PQRI: Concussion Without LOC, Intracranial Bleed, Other - fracture Provider Diagnoses: Head injury, Fracture, fibula, proximal Discharge - Discharge Plan Condition: Good Disposition: HOME Prescriptions: traMADol TAB* [Ultram*] 25 mg PO Q8H PRN #12 tab MDD 3 PRN Reason: Pain Patient Education Materials: Leg Fracture (ED), Head Injury (ED) Referrals: Letty Duffy MD [Primary Care Provider] - Additional Instructions: Keep off knee as much as possible Ice, elevate Take Tylenol for pain, every 6 hours, use tramadol for break through pain every 6 hours Follow up with ortho Follow up with primary within 5 days Return to ED if develop any new or worsening symptoms
--- NOTE | 2016-12-02 18:27 | RAD ---
INDICATION: Right knee injury. TECHNIQUE: 4 views of the right knee were obtained. FINDINGS: There is prominent soft tissue swelling along the anterior aspect of the knee which is most prominent in the region of the patellar tendon. The bones appear osteopenic and in normal alignment. No joint effusion is seen. There is suggestion of a nondisplaced fracture of the proximal diaphysis of the fibula. IMPRESSION: 1. PROBABLE NONDISPLACED FRACTURE OF THE PROXIMAL DIAPHYSIS OF THE FIBULA. 2. PROMINENT SOFT TISSUE SWELLING IN THE REGION OF THE PATELLAR TENDON.
--- NOTE | 2016-12-02 18:51 | RAD ---
INDICATION: Head injury. COMPARISON: Comparison is made with a prior CT of the brain from August 30, 2015. TECHNIQUE: Contiguous axial sections of the brain were obtained from the skull base to the vertex without contrast. FINDINGS: The ventricles, cisterns and sulci are enlarged consistent with diffuse atrophy. There is a fluid density lesion in the medial left temporal lobe likely representing a prominent perivascular space which is unchanged. There are focal areas of decreased attenuation present in the periventricular white matter bilaterally most consistent with old lacunar infarcts. No other focal abnormality or mass effect is seen. There is no evidence for hemorrhage. There is focal soft tissue swelling anterior to the region of the nose and the right frontal sinus. No fracture is seen. The visualized portion of the paranasal sinuses and mastoid air cells appear clear. IMPRESSION: 1. NO EVIDENCE FOR ACUTE INTRACRANIAL ABNORMALITY. 2. OLD BILATERAL LACUNAR INFARCTS.
--- NOTE | 2016-12-02 18:58 | RAD ---
INDICATION: Facial trauma. COMPARISON: Comparison is made with a prior CT of the facial bones from August 30, 2015. TECHNIQUE: Contiguous axial sections of the axial images of the facial bones were obtained and reconstructed in the coronal and sagittal planes. FINDINGS: Soft tissue swelling is noted anterior to the bridge of the nose and right frontal sinus. The rocha of the orbits and maxillary sinuses appear intact. The zygomatic arches appear intact. There is no evidence for a fracture of the mandible. There is moderate to severe bilateral osteoarthritic change in the temporomandibular joints. The nasal bones appear intact. There is moderate to severe deviation of the nasal septum toward the right side. The pterygoid plates appear intact. There is mild mucosal thickening within the frontal, ethmoid, maxillary and sphenoid sinuses. The mastoid air cells appear clear. IMPRESSION: NO EVIDENCE OF FRACTURE.
[2016-12-02] MEDS ORDERED: traMADol TAB* 50 MG PO ONE (19:09)
[2016-12-02 19:38] VITALS: BP 139/77
== END 2016-12-02 19:38 | disposition home or self-care (01) ==
LOC: ED 17:17
DX: S09.90XA Unspecified injury of head, initial encounter (principal); S82.401A Unspecified fracture of shaft of right fibula, initial encounter for closed fracture; W01.0XXA Fall on same level from slipping, tripping and stumbling without subsequent striking against object, initial encounter; Y93.9 Activity, unspecified; Y92.9 Unspecified place or not applicable; Z88.5 Allergy status to narcotic agent; Z91.048 Other nonmedicinal substance allergy status; I50.9 Heart failure, unspecified; I25.10 Atherosclerotic heart disease of native coronary artery without angina pectoris; I10 Essential (primary) hypertension; E78.00 Pure hypercholesterolemia, unspecified; J44.9 Chronic obstructive pulmonary disease, unspecified; K21.9 Gastro-esophageal reflux disease without esophagitis; N18.9 Chronic kidney disease, unspecified; Z86.73 Personal history of transient ischemic attack (TIA), and cerebral infarction without residual deficits; Z87.891 Personal history of nicotine dependence
CPT/HCPCS: 70450; 70486; 99282; A9270-GY

== ENCOUNTER 2017-02-24 15:44 | Inpatient (IN) | payer MEDICARE ==
[2017-02-24 18:45] LABS: Hematocrit 38 % (35-47); Hemoglobin 12.1 g/dl (12.0-16.0); Mean Corpuscular HGB Conc 32 g/dl (31-36); Mean Corpuscular Hemoglobin 29 pg (27-31); Mean Corpuscular Volume 91 fL (80-97); Mean Platelet Volume 8 um3 (7.4-10.4); Red Blood Count 4.15 10^6/ul (4.0-5.4); Red Cell Distribution Width 16 % (10.5-15); White Blood Count 5.1 10^3/ul (3.5-10.8)
[2017-02-24 19:02] LABS: Albumin 3.1 g/dL (3.2-5.2); BUN/Creatinine Ratio 6.8 (8-20); C Reactive Protein 7.91 mg/L (< 5.00); Calcium 8.9 mg/dL (8.6-10.3); EGFR African American 4.3 (>60); EGFR Non-African American 3.3 (>60); Globulin 3.1 g/dL (2-4); Total Bilirubin 0.3 mg/dL (0.2-1.0); Total Protein 6.2 g/dL (6.4-8.9)
--- NOTE | 2017-02-24 19:06 | RAD ---
INDICATION: Shortness of breath. Chronic obstructive pulmonary disease. Weakness. COMPARISON: November 08, 2016 TECHNIQUE: Dual energy PA and routine lateral views of the chest were obtained. REPORT: Moderately coarse interstitial markings without significant change. Mild consolidation at the LEFT lung base less prominent than on the prior exam. Small pleural effusions are not excluded. Negative for pneumothorax. Negative for cardiomegaly. Prominent central pulmonary arteries with peripheral attenuation. Tortuous descending thoracic aorta without change. Innumerable bilateral healed rib fractures. Suggestion of a nondisplaced acute fracture involving the RIGHT approximate eighth rib laterally. Increased thoracic kyphosis and multiple mild anterior wedge deformities of the thoracic vertebral bodies without change. Bone density appears decreased throughout. IMPRESSION: 1. Stigmata of chronic obstructive pulmonary disease. Mild LEFT basilar consolidation is less prominent than on the November 08, 2016 exam however it may represent residual or recurrent inflammatory disease. 2. Multiple healed rib fractures and suggestion of at least one acute nondisplaced rib fracture at the RIGHT approximate eighth rib laterally. Negative for pneumothorax.
[2017-02-24 19:11] LABS: Troponin I 0.14 ng/mL (<0.04)
[2017-02-24 20:00] LABS: Potassium 5.4 mmol/L (3.5-5.0)
[2017-02-24] MEDS ORDERED: Aliskiren TAB* 150 MG PO SCH (21:00)
[2017-02-24] MEDS ORDERED: Acetaminophen TAB* 325 MG PO PRN (21:06)
[2017-02-24] MEDS ORDERED: CMCS: Melatonin (NF) 3 MG TAB PO PRN (21:07)
[2017-02-24] MEDS: NS 0.9% 500 ML BAG* 500 ML IV SCH (21:26)
[2017-02-24] MEDS ORDERED: Sevelamer TAB* 800 MG PO PRN (21:28)
[2017-02-24] MEDS: Carvedilol TAB* 25 MG PO SCH (22:23)
[2017-02-24] MEDS: NIFEdipine ER TAB* 30 MG PO SCH (22:23)
[2017-02-24] MEDS: HYDROcodone/ACETAMIN 5-325 MG* 1 TAB PO PRN (22:24)
[2017-02-24] MEDS: Heparin VIAL(*) 5000 UNITS/ML VIAL (FIVE THOUSAND) SUBCUT SCH (22:24)
[2017-02-24] MEDS: LORazepam TAB(*) 1 MG PO PRN (23:02)
--- NOTE | 2017-02-25 00:25 | HP ---
CC: Letty Duffy MD * HISTORY AND PHYSICAL: DATE OF ADMISSION: 02/24/17 PRIMARY CARE PROVIDER: Letty Duffy MD ATTENDING PHYSICIAN: Cammie Lagunas MD * (report dictated by Cheryl Toscano NP) CHIEF COMPLAINT: Shortness of breath and weakness for 3 days. HISTORY OF PRESENT ILLNESS: Ms. Charles is a 56-year-old female with past medical history significant for end-stage renal disease, on peritoneal dialysis , hypertension, polycystic kidney disease, cardiomyopathy, last known EF 45% to 50%, depression, CAD status post myocardial infarction, and cerebrovascular accident, who presented to the emergency room with complaints of shortness of breath and weakness for the last 3 days and feeling dehydrated. The patient states that she has not eaten or drank today due to requiring too much energy to get to the kitchen to get food. She is also worried about ambulating due to her recurrent falls and she did not want to fall and have any further injuries. The patient also reports not taking medications today due to feeling weak. So , the patient presented to the emergency room for further evaluation of her symptoms. While in the emergency room, the patient had labs that were significant for slightly elevated potassium of 5.4, elevated BUN of 80, and creatinine of 11.77. The creatinine is near what appears to be the patient's baseline. Her BUN is elevated. Serum troponin is 0.14 in addition to a BNP of 2607. She had a white blood cell count of 5.1, hemoglobin 12.1, hematocrit 38, and platelet count 171. She had an EKG showing a sinus rhythm, rate of 61, some T wave inversions in leads V4 to 6. This is similar to previous EKG from 06/29/15 with the exception of the T wave inversion in lead V4 is now new. The patient also had a chest x-ray showing stigmata of chronic obstructive pulmonary disease , mild left basilar consolidation, though it is less prominent than from , in addition to multiple healed rib fractures and a suggestion of at least 1 acute nondisplaced rib fracture on the right at approximately the 8th rib. Due to the patient's presentation, hospitalists were asked to evaluate the patient for admission. The patient denies any recent fevers, although she does report intermittent chills. She denies any chest pain. She also reports shortness of breath that is worse with talking and walking. She reports an occasional cough at night. She denies nausea, vomiting. She had 1 episode of diarrhea last evening. She denies any urinary symptoms. She reports that she still urinates a small amount. PAST MEDICAL HISTORY: 1. End-stage renal disease, on peritoneal dialysis. 2. Hypertension. 3. Polycystic kidney disease. 4. Cardiomyopathy, last known EF of 45% to 50%. 5. Depression. 6. Coronary artery disease, status post myocardial infarction. 7. History of cerebrovascular accident. PAST SURGICAL HISTORY: Status post PD cath insertion. MEDICATIONS: Home medications include: 1. Vitamin D 1 tablet oral daily. 2. Calcitriol 1 tablet oral daily. 3. Tekturna 300 mg oral daily. 4. Acetaminophen 500 mg oral every 6 hours as needed for fever or pain. 5. Lorazepam 1 mg oral every 6 hours as needed for anxiety. 6. Isosorbide dinitrate ER 30 mg oral daily. 7. Etna 10/325 one tablet oral every 6 hours as needed for pain. 8. Carvedilol 25 mg oral twice daily. 9. Zoloft 100 mg oral daily. 10. Nifedipine 30 mg oral daily. 11. Benadryl 25 mg oral daily at bedtime as needed for sleep. 12. Sevelamer mg oral with meals and snacks. ALLERGIES: ADHESIVE TAPE and CODEINE. FAMILY HISTORY: The patient denies any family history of coronary artery disease, diabetes mellitus, or cancer. SOCIAL HISTORY: The patient denies any tobacco, alcohol, or recreational drug use. She lives alone. The patient's son, Alex Charles, will be her surrogate decision maker in the event she is unable to make decisions for herself. REVIEW OF SYSTEMS: I performed a 14-point review of systems. All the pertinent positives and negatives are mentioned in the history of present illness. The remaining review of systems is negative. PHYSICAL EXAMINATION GENERAL APPEARANCE: The patient is alert, pleasant, chronically ill appearing, and older than her stated age of 56. VITAL SIGNS: Temperature 97.7, heart rate 76, respiratory rate 21, O2 sat 95% on room air, blood pressure 209/108. HEENT: Normocephalic, atraumatic. Pupils are equal and reactive to light. Extraocular movements are intact. RESPIRATORY: There is no accessory muscle use. The lungs are clear to auscultation bilaterally, but diminished. CARDIOVASCULAR: Regular rate and rhythm. S1 and S2 present. There are no murmurs, rubs, or gallops heard. ABDOMEN: Soft, nontender, and nondistended. There are bowel sounds present x4. EXTREMITIES: Trace to 1+ bilateral lower extremity edema. DP and PT pulses are present and symmetric. MUSCULOSKELETAL: There is no clubbing or cyanosis noted. The patient exhibits good strength in all extremities. NEUROLOGICAL: The patient is alert and oriented x4. Cranial nerves II through XII are grossly intact. PSYCHOLOGICAL: The patient is calm and cooperative. SKIN: There are no rashes or abnormalities seen, although the patient does have a kenrick coloring to her skin. DIAGNOSTIC STUDIES/LABORATORY DATA: Sodium 133, potassium 5.4, chloride 95, CO2 20, BUN 80, creatinine 11.77, glucose 90. Troponin 0.14, CRP 7.91, BNP 2607. CK- MB 20.1. EKG shows a sinus rhythm, rate of 67, there is T wave inversion in leads V4 to 6. This is similar to previous EKG from 06/29/15 with the exception of new T wave inversion in lead V4. Chest x-ray from today. Radiologist's impression: Stigmata of chronic obstructive pulmonary disease, mild left basilar consolidation is less prominent than on the 11/08/16 exam; however, it may represent residual or recurrent inflammatory disease. Multiple healed rib fractures and suggestion of at least one acute nondisplaced rib fracture at the right approximate 8th rib laterality. Negative for pneumothorax. IMPRESSION: Ms. Charles is a 56-year-old female with past medical history significant for end-stage renal disease on peritoneal dialysis, hypertension, cardiomyopathy with EF of 45% to 50%, depression, history of CAD and CVA, who presents to the emergency room with complaints of weakness and shortness of breath for 3 days and feeling dehydrated. She will be admitted as an inpatient for elevated troponins, weakness, and shortness of breath. ASSESSMENT/PLAN: 1. Elevated troponins. The patient's troponin is elevated. She denies any chest pain. Her baseline troponin appears to be around 0.07 in the setting of her end- stage renal disease, although her CK-MB is elevated today at 20.1, which is higher than it has been previously. We will monitor the patient on telemetry. We will trend her troponins. 2. Weakness. The patient has had multiple falls over the last several months and complains of generalized weakness. She has no focal weakness. We will ask Physical Therapy to evaluate her. I did discuss with her the possibility of needing to go to rehabilitation until she is stronger. She lives alone. The patient would like to try to return home if possible. I suspect part of the patient's weakness is dehydration. 3. Shortness of breath. I question if this is secondary to acidosis and the patient trying to compensate for the acidosis. She is not hypoxic or tachycardic. So, we will hold off on working her up for possible PE at this time , but if she continues to have shortness of breath or develops hypoxia and tachycardia, I recommended working the patient up for a possible PE. 4. Hypertension. The patient's blood pressure is as high as 200 systolic and 100 diastolic. She has not taken any of her medications. Today, I am going to resume her oral home antihypertensives of Tekturna, isosorbide, carvedilol, and nifedipine in addition to giving her hydralazine IV as needed for systolic blood pressures greater than 180 and diastolic blood pressures greater than 110. 5. End-stage renal disease. The patient is on peritoneal dialysis. Dr. Bianchi is aware of her admission. He does not feel she needs to have peritoneal dialysis tonight unless she appeared to be fluid overloaded. At this time, she has no crackles in her lungs and minimal lower extremity edema that the patient states is better than usual. We will continue her Silvia-Linette and sevelamer. 6. Chronic pain. The patient will be continued on Etna and Tylenol as needed for pain. 7. Anxiety and depression. The patient will be continued on her home Zoloft and Ativan. 8. Hyperkalemia. The patient is noted to be slightly hyperkalemic. I suspect this is secondary to her renal failure. I am going to hold on giving her any treatment for that as I suspect it will go down slightly on its own and after peritoneal dialysis, it will improve. 9. Fluids, electrolytes, and nutrition. The patient will be on a renal diet. 10. Code status. Full code. 11. DVT prophylaxis. The patient is at moderate risk and will have subcu heparin. 12. Disposition. Inpatient. TIME SPENT: Time for this admission was approximately 60 minutes, greater than half of that was spent [id number] with the patient discussing medications, past medical history, the events leading up to her arrival today, performing a physical examination. The case has been reviewed with the attending, Dr. Lagunas, who agrees with the plan of care. CHERYL GILL, SNEHA [id number]/CPS #: [id number] EL
[2017-02-25] MEDS: NS 0.9% 500 ML BAG* 500 ML IV SCH (02:39)
[2017-02-25] MEDS: hydrALAZINE IV* 20 MG/ML VIAL IV SLOW PU PRN ×2 (04:55→16:09)
[2017-02-25] MEDS: Heparin VIAL(*) 5000 UNITS/ML VIAL (FIVE THOUSAND) SUBCUT SCH ×3 (05:00→21:08)
[2017-02-25] MEDS: LORazepam TAB(*) 1 MG PO PRN ×3 (05:41→23:53)
[2017-02-25] MEDS ORDERED: Furosemide IV* 10 MG/ML VIAL (40 MG) IV ONE (06:08)
[2017-02-25] MEDS ORDERED: Nitroglycerin 2% OINT* 1 GM PAK TOPICAL ONE (06:33)
--- NOTE | 2017-02-25 06:36 | PN ---
Progress Note - Progress Note Date of Service: 02/25/17 Note: Paged for increase work of breathing. Patient feels better on oxymask. Remains tachpneic. Poor aeration with decreased breath sounds. CXR shows increase interstital edema. Will give Lasix 40 mg IV, Inch of Nitro and order ABG. May benefit from hi flow if no improvement.
[2017-02-25 06:38] LABS: PCO2 Arterial 41 mmHg (35-45)
[2017-02-25 06:48] LABS: BUN/Creatinine Ratio 6.8 (8-20); Calcium 8.8 mg/dL (8.6-10.3); EGFR African American 4.2 (>60); EGFR Non-African American 3.3 (>60)
[2017-02-25 07:00] LABS: Potassium 5.4 mmol/L (3.5-5.0)
[2017-02-25] MEDS ORDERED: Furosemide IV* 10 MG/ML VIAL (40 MG) IV SCH (07:00)
--- NOTE | 2017-02-25 08:09 | RAD ---
INDICATION: Shortness of breath. COMPARISON: Comparison is made with prior chest x-ray study from February 24, 2017. TECHNIQUE: A portable view of the chest was obtained. FINDINGS: The heart appears mildly enlarged. There is diffuse prominence of the interstitial markings and small bilateral pleural effusions with a more focal infiltrate at the left lung base most consistent with congestive heart failure less likely pneumonia. IMPRESSION: FINDINGS MOST CONSISTENT WITH CONGESTIVE HEART FAILURE LESS LIKELY PNEUMONIA.
[2017-02-25] MEDS: NIFEdipine ER TAB* 30 MG PO SCH (08:30)
[2017-02-25] MEDS: Carvedilol TAB* 25 MG PO SCH ×2 (08:30→21:07)
[2017-02-25] MEDS: Sevelamer TAB* 800 MG PO SCH ×4 (08:30→17:58)
[2017-02-25] MEDS: Sertraline* 50 MG TAB PO SCH (08:30)
[2017-02-25] MEDS ORDERED: CALCITRIOL PO SCH (09:00)
[2017-02-25] MEDS ORDERED: Influenza VAC *QUAD* 2017-18* 0.5 ML SYRINGE IM ONE (09:00)
[2017-02-25] MEDS: Aliskiren TAB* 300 MG PO SCH (10:11)
[2017-02-25] MEDS: HYDROcodone/ACETAMIN 5-325 MG* 1 TAB PO PRN (17:49)
[2017-02-25] MEDS: Mupirocin 2% OINT* TUBE TOPICAL SCH (17:53)
[2017-02-25] MEDS ORDERED: Nitro Patch/OINT Remove TOPICAL ONE (18:00)
--- NOTE | 2017-02-25 18:15 | PN ---
Subjective Date of Service: 02/25/17 Interval History: Hypertensive to 200s over 100s this morning, responded well to her scheduled antihypertensives. PD was performed this afternoon with some improvement in her breathing. She denies chest pain, cough, fevers, chills, leg swelling. Her abdominal distension is unchanged. She has been gaining weight, but according to our scale is only 3lbs above her dry weight. Family History: Unchanged from Admission Social History: Unchanged from Admission Past Medical History: Unchanged from Admission Objective Active Medications: Acetaminophen (Tylenol Tab*) 650 mg PO Q4H PRN PRN Reason: FEVER/PAIN Last Admin: 02/25/17 14:23 Dose: 650 mg Hydrocodone Bitart/Acetaminophen ([place] 5-325 Tab*) 1 tab PO Q4H PRN PRN Reason: PAIN - MILD TO MODERATE Last Admin: 02/24/17 22:24 Dose: 1 tab Hydrocodone Bitart/Acetaminophen ([place] 5-325 Tab*) 2 tab PO Q4H PRN PRN Reason: PAIN - MODERATE TO SEVERE Last Admin: 02/25/17 17:49 Dose: 2 tab [place] (Tekturna Tab*) 300 mg PO DAILY [facility] Last Admin: 02/25/17 10:11 Dose: 300 mg Calcitriol (Rocaltrol Cap*) 0.25 mcg PO DAILY [facility] Carvedilol (Coreg Tab*) 25 mg PO BID [facility] Last Admin: 02/25/17 08:30 Dose: 25 mg Heparin Sodium (Porcine) (Heparin Vial(*)) 5,000 units SUBCUT Q8HR [facility] Last Admin: 02/25/17 14:00 Dose: Not Given Hydralazine HCl (Apresoline Iv*) 5 mg IV SLOW PU Q6H PRN PRN Reason: BLOOD PRESSURE Last Admin: 02/25/17 16:09 Dose: 5 mg Lorazepam (Ativan Tab(*)) 1 mg PO Q6H PRN PRN Reason: ANXIETY Last Admin: 02/25/17 16:13 Dose: 1 mg Melatonin (Melatonin (Nf)) 3 mg PO BEDTIME PRN PRN Reason: INSOMNIA Mupirocin (Bactroban 2 % Oint*) 1 applic TOPICAL DAILY [facility] Last Admin: 02/25/17 17:53 Dose: 1 applic Nifedipine (Procardia Xl Tab*) 30 mg PO DAILY [facility] Last Admin: 02/25/17 08:30 Dose: 30 mg Sertraline HCl (Zoloft*) 100 mg PO DAILY [facility] Last Admin: 02/25/17 08:30 Dose: 100 mg Sevelamer Carbonate (Renvela Tab*) 4,000 mg PO TID WITH MEALS [facility] Last Admin: 02/25/17 17:58 Dose: 800 mg Sevelamer Carbonate (Renvela Tab*) 4,000 mg PO .SEE COMMENTS PRN PRN Reason: WITH SNACKS Vital Signs 02/24/17 02/24/17 02/24/17 22:07 22:24 23:02 Temperature 97.7 F Pulse Rate 70 Respiratory 22 22 22 Rate Blood Pressure 186/92 (mmHg) O2 Sat by Pulse 100 Oximetry 02/25/17 02/25/17 02/25/17 00:24 01:02 04:29 Temperature 97.6 F Pulse Rate 71 Respiratory 16 16 16 Rate Blood Pressure 198/102 (mmHg) O2 Sat by Pulse 99 Oximetry 02/25/17 02/25/17 02/25/17 05:41 07:41 07:43 Temperature 97.5 F Pulse Rate 76 Respiratory 24 24 26 Rate Blood Pressure 209/105 (mmHg) O2 Sat by Pulse 100 Oximetry 02/25/17 02/25/17 02/25/17 08:00 11:18 15:19 Temperature 97.6 F Pulse Rate 74 72 Respiratory 20 18 Rate Blood Pressure 167/78 (mmHg) O2 Sat by Pulse 100 97 Oximetry 02/25/17 02/25/17 16:13 17:49 Temperature Pulse Rate Respiratory 20 16 Rate Blood Pressure (mmHg) O2 Sat by Pulse Oximetry Oxygen Devices in Use Now: Nasal Cannula Appearance: alert, tachypneic, appears older than stated age Ears/Nose/Mouth/Throat: NL Teeth, Lips, Gums Neck: Trachea Midline, - - unable to visualize JVP, as she is unable to lie at 45 degrees Respiratory: - - crackles at b/l bases Cardiovascular: NL Sounds; No Murmurs; No JVD, RRR Abdominal: - - distended, nontender Lymphatic: No Cervical Adenopathy Extremities: No Edema Skin: No Rash or Ulcers Neurological: Alert and Oriented x 3 Result Diagrams: 02/24/17 18:35 02/25/17 06:05 Assess/Plan/Problems-Billing Assessment: 1. Acute Hypoxic Respiratory Failure Likely caused by hypertensive crisis. Unclear why this occurred; she did not miss any PD sessions or medications, though she may have eaten some salty meals. Improved after PD; wean O2 as able. 2. 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 Now well controlled on home regimen and PD 3. Elevated troponin likely related to volume overload in the setting of ESRD. She does have TWIs inferiorly and laterally; will repeat EKG tomorrow to re-evaluate when she is normotensive. 4. CAD She is not on asa, statin, or bb--need med rec, unclear why not 5. NICM No recent echo; recheck tomorrow for progression given ongoing hypertension
[2017-02-26] MEDS: Heparin VIAL(*) 5000 UNITS/ML VIAL (FIVE THOUSAND) SUBCUT SCH ×3 (04:44→20:33)
[2017-02-26] MEDS: LORazepam TAB(*) 1 MG PO PRN ×3 (06:34→23:29)
[2017-02-26] MEDS: Sevelamer TAB* 800 MG PO SCH ×3 (08:17→16:53)
[2017-02-26] MEDS: Aliskiren TAB* 300 MG PO SCH (08:17)
[2017-02-26] MEDS: Sertraline* 50 MG TAB PO SCH (08:18)
[2017-02-26] MEDS: Mupirocin 2% OINT* TUBE TOPICAL SCH ×2 (08:18→13:44)
[2017-02-26] MEDS: Carvedilol TAB* 25 MG PO SCH ×2 (08:18→20:28)
[2017-02-26] MEDS: Calcitriol CAP* 0.25 MCG PO SCH (08:18)
[2017-02-26] MEDS: NIFEdipine ER TAB* 30 MG PO SCH (08:18)
[2017-02-26] MEDS: hydrALAZINE IV* 20 MG/ML VIAL IV SLOW PU PRN ×2 (11:49→20:28)
--- NOTE | 2017-02-26 11:58 | PN ---
Subjective Date of Service: 02/26/17 Interval History: Still markedly dyspneic with exertion. Feels weak all over, complains of body aches, no chest pain, no cough, some orthpnea, no fevers/chills, no diarrhea or constipation. Family History: Unchanged from Admission Social History: Unchanged from Admission Past Medical History: Unchanged from Admission Objective Active Medications: Acetaminophen (Tylenol Tab*) 650 mg PO Q4H PRN PRN Reason: FEVER/PAIN Last Admin: 02/25/17 14:23 Dose: 650 mg Hydrocodone Bitart/Acetaminophen ([place] 5-325 Tab*) 1 tab PO Q4H PRN PRN Reason: PAIN - MILD TO MODERATE Last Admin: 02/24/17 22:24 Dose: 1 tab Hydrocodone Bitart/Acetaminophen ([place] 5-325 Tab*) 2 tab PO Q4H PRN PRN Reason: PAIN - MODERATE TO SEVERE Last Admin: 02/25/17 17:49 Dose: 2 tab [place] (Tekturna Tab*) 300 mg PO DAILY [facility] Last Admin: 02/26/17 08:17 Dose: 300 mg Calcitriol (Rocaltrol Cap*) 0.25 mcg PO DAILY [facility] Last Admin: 02/26/17 08:18 Dose: 0.25 mcg Carvedilol (Coreg Tab*) 25 mg PO BID [facility] Last Admin: 02/26/17 08:18 Dose: 25 mg Heparin Sodium (Porcine) (Heparin Vial(*)) 5,000 units SUBCUT Q8HR [facility] Last Admin: 02/26/17 04:44 Dose: Not Given Hydralazine HCl (Apresoline Iv*) 5 mg IV SLOW PU Q6H PRN PRN Reason: BLOOD PRESSURE Last Admin: 02/26/17 11:49 Dose: 5 mg Lorazepam (Ativan Tab(*)) 1 mg PO Q6H PRN PRN Reason: ANXIETY Last Admin: 02/26/17 06:34 Dose: 1 mg Melatonin (Melatonin (Nf)) 3 mg PO BEDTIME PRN PRN Reason: INSOMNIA Mupirocin (Bactroban 2 % Oint*) 1 applic TOPICAL DAILY [facility] Last Admin: 02/26/17 08:18 Dose: Not Given Nifedipine (Procardia Xl Tab*) 30 mg PO DAILY [facility] Last Admin: 02/26/17 08:18 Dose: 30 mg Sertraline HCl (Zoloft*) 100 mg PO DAILY [facility] Last Admin: 02/26/17 08:18 Dose: 100 mg Sevelamer Carbonate (Renvela Tab*) 4,000 mg PO TID WITH MEALS [facility] Last Admin: 02/26/17 11:49 Dose: 4,000 mg Sevelamer Carbonate (Renvela Tab*) 4,000 mg PO .SEE COMMENTS PRN PRN Reason: WITH SNACKS Vital Signs 02/25/17 02/25/17 02/25/17 15:19 16:13 17:49 Temperature Pulse Rate 72 Respiratory 20 16 Rate Blood Pressure (mmHg) O2 Sat by Pulse 97 Oximetry 02/25/17 02/25/17 02/25/17 18:13 19:46 19:49 Temperature Pulse Rate 69 Respiratory 16 18 14 Rate Blood Pressure 170/82 (mmHg) O2 Sat by Pulse 100 Oximetry 02/25/17 02/25/17 02/25/17 20:00 20:30 23:27 Temperature 97.5 F 97.6 F Pulse Rate 70 Respiratory 16 20 Rate Blood Pressure 158/87 (mmHg) O2 Sat by Pulse 100 Oximetry 02/25/17 02/26/17 02/26/17 23:53 01:53 03:20 Temperature 97.4 F Pulse Rate 66 Respiratory 12 14 24 Rate Blood Pressure 148/79 (mmHg) O2 Sat by Pulse 99 Oximetry 02/26/17 02/26/17 02/26/17 06:34 07:30 08:00 Temperature 96.4 F Pulse Rate 65 Respiratory 16 22 22 Rate Blood Pressure 177/82 (mmHg) O2 Sat by Pulse 100 Oximetry 02/26/17 02/26/17 08:34 10:50 Temperature 97.4 F Pulse Rate 67 Respiratory 22 20 Rate Blood Pressure 186/93 (mmHg) O2 Sat by Pulse 100 Oximetry Oxygen Devices in Use Now: Nasal Cannula Appearance: alert, ill appearing, uncomfortable Eyes: No Scleral Icterus, PERRLA Ears/Nose/Mouth/Throat: NL Teeth, Lips, Gums, Clear Oropharnyx Respiratory: Symmetrical Chest Expansion and Respiratory Effort, - - crackles at b/l bases Cardiovascular: RRR, No Edema, - - profound kyphosis Lymphatic: No Cervical Adenopathy Extremities: No Edema Skin: No Rash or Ulcers Neurological: Alert and Oriented x 3 Result Diagrams: 02/24/17 18:35 02/25/17 06:05 Assess/Plan/Problems-Billing Assessment: 1. Acute Hypoxic Respiratory Failure Still with b/l pleural effusions today despite successful PD session yesterday. Likely caused by hypertensive crisis. Unclear why this occurred; she did not miss any PD sessions or medications, though she may have eaten some salty meals. Awaiting TTE today to evaluate for cardiogenic etiology of pleural effusions. If unrevealing, will check CTA to rule out thromboembolism, as she is still profoundly dyspneic, and is at risk for pe given chronic severe inflammation. 2. 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 Now well controlled on home regimen and PD 3. Elevated troponin likely related to volume overload in the setting of ESRD. She does have TWIs inferiorly and laterally; awaiting repeat EKG today to re-evaluate when she is normotensive. 4. CAD She is not on asa, statin, or bb--need med rec, unclear why not 5. NICM No recent echo; recheck today for progression given ongoing hypertension.
[2017-02-26] MEDS ORDERED: Iodixanol* (CONTRAST) 320 MG/ML 100 ML SDV IV ONE (12:09)
--- NOTE | 2017-02-26 12:14 | RAD ---
Indication: Pleural effusion. Single frontal view of the chest performed at 1125 hours was reviewed. Comparison is made with previous exam dated February 25, 2017. Cardiomegaly with interstitial edema persists. Left basilar atelectasis and probable small left pleural effusion is noted. No significant change is noted since February 25, 2017. IMPRESSION: INTERSTITIAL EDEMA WITH LEFT PLEURAL EFFUSION AND LEFT BASE ATELECTASIS. THIS IS UNCHANGED FROM 2016.
--- NOTE | 2017-02-26 13:26 | RAD ---
INDICATION: Shortness of breath and elevated troponin. COMPARISON: CT of the chest dated June 30, 2016 TECHNIQUE: Axial source images were acquired following the administration of 58 mL of Visipaque [address] angiographic technique. Coronal and sagittal reconstructed images were constructed and reviewed. FINDINGS: There there are no filling defects in the pulmonary arteries to indicate acute pulmonary embolic disease. The lungs exhibit diffuse centrilobular emphysematous changes and hyperaeration. There are diffuse mild patchy groundglass densities similar in appearance to the previous CT of the chest. There are small bibasilar pleural effusions. Similar to the prior CT examination there is mild cardiomegaly. There is no large pericardial effusion. There is coarse atherosclerotic calcification at the mitral valve. There is mild calcification at the arch of the aorta and coronary arteries. There is calcified atherosclerosis of the lower thoracic and abdominal aorta similar in appearance to the prior CT examination. There is no mediastinal, hilar, or axillary lymphadenopathy. Degenerative changes of the thoracic spine include loss of intervertebral disc height, marginal osteophyte formation and stable kyphotic deformity. 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 IMPRESSION: 1. No CT of evidence of pulmonary embolism. 2. Signs of fluid overload include mild groundglass opacification and small pleural effusions both similar to the prior CT examination. 3. Additional chronic and degenerative changes described in the body the report unlikely to be directly related to the patient's current presentation.
[2017-02-26] MEDS: HYDROcodone/ACETAMIN 5-325 MG* 1 TAB PO PRN ×3 (13:43→21:01)
--- NOTE | 2017-02-26 14:30 | ECHO ---
Patient: EDWARDO GUILLEN [facility] Rec#: [id number] : 1960 Date: 02/26/2017 Age: 56y Height: 167.6 cm / 66.0 in Weight: 50.8 kg / 112.0 lbs Sex: F BSA: 1.6 Room#: 451 Admit Date#: 02/24/2017 Type: Inpatient Referring: Romana Núñez MD Reading: Ike Deutsch MD Dianeticist: Zeynep Orourke RN RDCS CC: Letty Duffy Transthoracic Echocardiogram Indication: Shortness of breath BP: 148/49 HR: 66 Rhythm: NSR Findings History: CAD, HTN, ESRD, peritoneal dialysis Technical Comments: The study quality is fair. Completed at 1050. Left Ventricle: The left ventricular chamber size is normal. Moderate concentric left ventricular hypertrophy is observed. There is global hypokinesis of the left ventricle with minor regional variation. There is mild to moderately decreased left ventricular systolic function. The estimated ejection fraction is 35-40%. Abnormal left ventricular diastolic filling is observed, consistent with impaired relaxation. Left Atrium: The left atrium is mild to moderately dilated. Right Ventricle: The right ventricular cavity size is normal. The right ventricular global systolic function is low normal. Right Atrium: The right atrial cavity size is normal. Aortic Valve: The aortic valve is trileaflet. The aortic valve leaflets are mildly thickened. There is trace to mild aortic regurgitation. There is no evidence of aortic stenosis. Mitral Valve: There is posterior mitral annular calcification. The mitral valve leaflets are mildly thickened. There is mild mitral regurgitation. There is no evidence of mitral stenosis. Tricuspid Valve: The tricuspid valve leaflets are normal. There is mild tricuspid regurgitation. There is evidence of mild pulmonary hypertension. There is no tricuspid stenosis. Pulmonic Valve: The pulmonic valve structure is not well visualized. There is mild pulmonic regurgitation. There is no pulmonic stenosis. Pericardium: A trivial pericardial effusion is visualized. Aorta: There is no dilatation of the ascending aorta. The aortic arch is not well visualized. There is no dilation of the aortic root. Pulmonary Artery: The main pulmonary artery is not well visualized. Venous: The inferior vena cava appears normal in size. There is a greater than 50% respiratory change in the inferior vena cava dimension. Summary: There are no significant changes when compared to the previous study done on 01/27/14 Conclusions There is global hypokinesis of the left ventricle with minor regional variation. There is mild to moderately decreased left ventricular systolic function. The estimated ejection fraction is 35-40%. There is trace to mild aortic regurgitation. There is no evidence of aortic stenosis. There is posterior mitral annular calcification. There is mild mitral regurgitation. There is mild tricuspid regurgitation. There is evidence of mild pulmonary hypertension. A trivial pericardial effusion is visualized. There are no significant changes when compared to the previous study done on 01/27/14 Measurements Name Value Normal Range RVDdMajor (2D) 3.3 cm (2.2 - 4.4) RAd ISD 4CH 4.8 cm (3.4 - 4.9) RA (A4C)W 4.4 cm (2.9 - 4.6) IVSd (2D) 1.4 cm (0.6 - 1) LVPWd (2D) 1.4 cm (0.6 - 1) LVIDd (2D) 3.8 cm (3.6 - 5.4) Aortic Annulus 2 cm (1.4 - 2.6) Ao root diameter (2D) 2.8 cm (2.1 - 3.5) Ascending Ao 3 cm (2.1 - 3.4) LA dimension (AP) 2D 3.5 cm (2.3 - 3.8) LAd ISD 4CH 5.2 cm (2.9 - 5.3) LA ISD 4CH W 4.6 cm (2.5 - 4.5) Name Value Normal Range LA ESV SP 4CH (A/L) 77 ml - LA ESV SP 2CH (A/L) 85 ml - LA ESV BP (A/L) 82 ml - LA ESV BP (A/L) index 52.7 ml/m2 - LA ESV SP 4CH (MOD) 69 ml - LA ESV SP 2CH (MOD) 85 ml - Name Value Normal Range MV E-wave Vmax 0.79 m/sec - MV deceleration time 208 msec - MV A-wave Vmax 1.1 m/sec - MV E:A ratio 0.71 ratio - LV septal e' Vmax 0.03 m/sec - LV lateral e' Vmax 0.05 m/sec - LV E:e' septal ratio 26.3 ratio - LV E:e' lateral ratio 15.8 ratio - Name Value Normal Range AV Vmax 1.8 m/sec - AV VTI 38.8 cm - AV peak gradient 12.2 mmHg - AV mean gradient 6.2 mmHg - LVOT Vmax 1.1 m/sec - LVOT VTI 26.6 cm - LVOT peak gradient 4.8 mmHg - LVOT mean gradient 2.3 mmHg - Name Value Normal Range TR Vmax 3 m/sec - TR peak gradient 36 mmHg - RAP 3 mmHg - RVSP 39 mmHg - IVC diameter 1.3 cm - Name Value Normal Range PV Vmax 0.87 m/sec -
[2017-02-26] MEDS ORDERED: Lisinopril TAB* 10 MG PO ONE (16:00)
[2017-02-26] MEDS: Ondansetron INJ* 2 MG/ML VIAL IV PRN (20:28)
[2017-02-27] MEDS: HYDROcodone/ACETAMIN 5-325 MG* 1 TAB PO PRN ×3 (03:37→21:10)
[2017-02-27 05:16] LABS: Hematocrit 33 % (35-47); Hemoglobin 10.8 g/dl (12.0-16.0); Mean Corpuscular HGB Conc 33 g/dl (31-36); Mean Corpuscular Hemoglobin 29 pg (27-31); Mean Corpuscular Volume 91 fL (80-97); Mean Platelet Volume 7 um3 (7.4-10.4); Red Blood Count 3.67 10^6/ul (4.0-5.4); Red Cell Distribution Width 16 % (10.5-15); White Blood Count 5.9 10^3/ul (3.5-10.8)
[2017-02-27] MEDS: Heparin VIAL(*) 5000 UNITS/ML VIAL (FIVE THOUSAND) SUBCUT SCH ×3 (05:20→21:06)
[2017-02-27 05:33] LABS: BUN/Creatinine Ratio 6.1 (8-20); Calcium 8.7 mg/dL (8.6-10.3); EGFR Non-African American 3.9 (>60); Potassium 4.3 mmol/L (3.5-5.0)
--- NOTE | 2017-02-27 06:24 | ED ---
Ayan Morales SooYoung, scribed for Jt Ricci MD on 02/24/17 at 1748 . Complex/Multi-Sys Presentation - HPI Summary HPI Summary: A 56 y/o F presents to ED with c/o feeling dehydrated onset today. Pt is on peritoneal dialysis, 12 hours at night. Associated sx: weakness, SOB, lightheaded, diarrhea 1x last night. Denies CP, cough, fever, abd pain. Sees Dr. Bianchi, nephrology. - History Of Current Complaint Chief Complaint: EDWeakness Hx Obtained From: Patient Onset/Duration: Still Present Timing: Constant Severity Currently: Moderate Severity Initially: Moderate Associated Signs And Symptoms: Positive: Weakness, SOB, Diarrhea, Other - pos: lightheaded. Negative: Cough, Chest Pain, Abdominal Pain, Fever - Allergies/Home Medications Allergies/Adverse Reactions: Allergies Allergy/AdvReac Type Severity Reaction Status Date / Time Adhesive Tape Allergy Hives Verified 01/11/17 09:10 Codeine Allergy GI Upset Verified 01/11/17 09:10 Home Medications: Home Medications Calcitriol CAP* 1 cap PO DAILY 02/24/17 [History Confirmed 02/24/17] Vitamin D 1 tab PO DAILY 02/24/17 [History Confirmed 02/24/17] PMH/Surg Hx/FS Hx/Imm Hx Previously Healthy: No Endocrine/Hematology History: Reports: Hx Anemia - gets epogen shot Denies: Hx Diabetes, Hx Systemic Lupus Erythematosus, Hx Thyroid Disease Cardiovascular History: Reports: Hx Aneurysm, Hx Congestive Heart Failure, Hx Coronary Artery Disease, Hx Hypercholesterolemia, Hx Hypertension, Other Cardiovascular Problems/Disorders - CAD, NH Denies: Hx Pacemaker/ICD, Hx Peripheral Vascular Disease Respiratory History: Reports: Hx Chronic Obstructive Pulmonary Disease (COPD), Hx Pleural Effusion Denies: Hx Pneumonia GI History: Reports: Hx Gastroesophageal Reflux Disease, Hx Ulcer History: Reports: Hx Chronic Renal Failure, Hx Dialysis, Hx Kidney Infection , Hx Renal Disease - dialysis daily, Other Problems/Disorders - polycystic kidney Denies: Hx Kidney Stones Musculoskeletal History: Reports: Hx Rheumatoid Arthritis, Other Musculoskeletal History - LEFT HIP FX Denies: Hx Arthritis, Hx Osteoporosis Sensory History: Reports: Hx Contacts or Glasses - reading glasses only Denies: Hx Cataracts, Hx Glaucoma, Hx Deafness, Hx Hearing Aid, Hx Hearing Problem Opthamlomology History: Reports: Hx Contacts or Glasses - reading glasses only Denies: Hx Cataracts, Hx Glaucoma Neurological History: Reports: Hx CVA, Other Neuro Impairments/Disorders - brain aneurism Psychiatric History: Reports: Hx Anxiety, Hx Depression Denies: Hx Panic Disorder, Hx Post Traumatic Stress Disorder, Other Psychiatric Issues/Disorders - Cancer History Hx Chemotherapy: No - Surgical History Surgery Procedure, Year, and Place: dialysis port x2 Hx Anesthesia Reactions: No - Immunization History Date of Tetanus Vaccine: Unknown Infectious Disease History: No Infectious Disease History: Denies: Traveled Outside the [place] in Last 30 Days - Family History Known Family History: Negative: Cardiac Disease, Hypertension, Diabetes - Social History Occupation: Disabled Lives: With Family - son Alcohol Use: None Hx Substance Use: Yes Substance Use Type: Reports: Prescribed Hx Tobacco Use: Yes Smoking Status (MU): Former Smoker Type: Cigarettes Amount Used/How Often: not much, only while in college Have You Smoked in the Last Year: No Review of Systems Positive: Other - pos: dehydrated. Negative: Fever Negative: Chest Pain Positive: Shortness Of Breath. Negative: Cough Positive: Diarrhea. Negative: Abdominal Pain Neurological: Other - pos: lightheaded Positive: Weakness All Other Systems Reviewed And Are Negative: Yes Physical Exam - Summary Physical Exam Summary: VITAL SIGNS: Reviewed. GENERAL: Patient is an elderly female who is lying comfortable in the stretcher on 2L O2. Patient is not in any acute respiratory distress. HEAD AND FACE: No signs of trauma. No ecchymosis, hematomas or skull depressions. No sinus tenderness. EYES: PERRLA, EOMI x 2, No injected conjunctiva, no nystagmus. EARS: Hearing grossly intact. Ear canals and tympanic membranes are within normal limits. MOUTH: Oropharynx within normal limits. NECK: Supple, trachea is midline, no adenopathy, no JVD, no carotid bruit, no c- spine tenderness, neck with full ROM. CHEST: Symmetric, no tenderness at palpation LUNGS: Pt has bilateral crackles and decreased breath sounds. CVS: Regular rate and rhythm, S1 and S2 present, no murmurs or gallops appreciated. ABDOMEN: Soft, non-tender. No signs of distention. No rebound, no guarding, and no masses palpated. Bowel sounds are normal. RLQ port for peritoneal dialysis. EXTREMITIES: FROM in all major joints, 1+ bilat pedal edema, no cyanosis or clubbing. NEURO: Alert and oriented x 3. No acute neurological deficits. Speech is normal and follows commands. SKIN: Dry and warm Triage Information Reviewed: Yes Vital Signs On Initial Exam: Initial Vitals Temp Pulse Resp BP Pulse Ox 97.7 F 78 18 154/87 96 02/24/17 15:54 02/24/17 15:54 02/24/17 15:54 02/24/17 15:54 02/24/17 15:54 Vital Signs Reviewed: Yes - Ernie Coma Scale Coma Scale Total: 15 Diagnostics - Vital Signs Vital Signs Temp Pulse Resp BP Pulse Ox 02/24/17 17:25 73 24 92 02/24/17 17:23 175/90 02/24/17 15:54 97.7 F 78 18 154/87 96 - Laboratory Lab Results: Lab Results 02/24/17 02/24/17 02/24/17 Range/Units 18:35 18:35 18:35 WBC 5.1 (3.5-10.8) 10^3/ul RBC 4.15 (4.0-5.4) 10^6/ul Hgb 12.1 (12.0-16.0) g/dl Hct 38 (35-47) % MCV 91 (80-97) fL MCH 29 (27-31) pg MCHC 32 (31-36) g/dl RDW 16 H (10.5-15) % Plt Count 171 (150-450) 10^3/ul MPV 8 (7.4-10.4) um3 Neut % (Auto) 67.8 (38-83) % Lymph % (Auto) 18.4 L (25-47) % Lake % (Auto) 10.5 H (1-9) % Eos % (Auto) 1.8 (0-6) % Baso % (Auto) 1.5 (0-2) % Absolute Neuts (auto) 3.4 (1.5-7.7) 10^3/ul Absolute Lymphs (auto) 0.9 L (1.0-4.8) 10^3/ul Absolute Monos (auto) 0.5 (0-0.8) 10^3/ul Absolute Eos (auto) 0.1 (0-0.6) 10^3/ul Absolute Basos (auto) 0.1 (0-0.2) 10^3/ul Absolute Nucleated RBC 0 10^3/ul Nucleated RBC % 0.1 Sodium 133 (133-145) mmol/L Potassium 5.4 H (3.5-5.0) mmol/L Chloride 95 L (101-111) mmol/L Carbon Dioxide 20 L (22-32) mmol/L Anion Gap 18 H (2-11) mmol/L BUN 80 H (6-24) mg/dL Creatinine 11.77 H (0.51-0.95) mg/dL Est GFR ( Amer) 4.3 (>60) Est GFR (Non-Af Amer) 3.3 (>60) BUN/Creatinine Ratio 6.8 L (8-20) Glucose 90 (70-100) mg/dL Lactic Acid (0.5-2.0) mmol/L Calcium 8.9 (8.6-10.3) mg/dL Total Bilirubin 0.30 (0.2-1.0) mg/dL AST 14 (13-39) U/L ALT 10 (7-52) U/L Alkaline Phosphatase 93 (34-104) U/L CK-MB (CK-2) 20.1 H (0.6-6.3) ng/mL Troponin I 0.14 H* (<0.04) ng/mL C-Reactive Protein 7.91 H (< 5.00) mg/L B-Natriuretic Peptide 2607 H ( - 100) pg/mL Total Protein 6.2 L (6.4-8.9) g/dL Albumin 3.1 L (3.2-5.2) g/dL Globulin 3.1 (2-4) g/dL Albumin/Globulin Ratio 1.0 (1-3) 02/24/17 Range/Units 18:35 WBC (3.5-10.8) 10^3/ul RBC (4.0-5.4) 10^6/ul Hgb (12.0-16.0) g/dl Hct (35-47) % MCV (80-97) fL MCH (27-31) pg MCHC (31-36) g/dl RDW (10.5-15) % Plt Count (150-450) 10^3/ul MPV (7.4-10.4) um3 Neut % (Auto) (38-83) % Lymph % (Auto) (25-47) % Lake % (Auto) (1-9) % Eos % (Auto) (0-6) % Baso % (Auto) (0-2) % Absolute Neuts (auto) (1.5-7.7) 10^3/ul Absolute Lymphs (auto) (1.0-4.8) 10^3/ul Absolute Monos (auto) (0-0.8) 10^3/ul Absolute Eos (auto) (0-0.6) 10^3/ul Absolute Basos (auto) (0-0.2) 10^3/ul Absolute Nucleated RBC 10^3/ul Nucleated RBC % Sodium (133-145) mmol/L Potassium (3.5-5.0) mmol/L Chloride (101-111) mmol/L Carbon Dioxide (22-32) mmol/L Anion Gap (2-11) mmol/L BUN (6-24) mg/dL Creatinine (0.51-0.95) mg/dL Est GFR ( Amer) (>60) Est GFR (Non-Af Amer) (>60) BUN/Creatinine Ratio (8-20) Glucose (70-100) mg/dL Lactic Acid 0.7 (0.5-2.0) mmol/L Calcium (8.6-10.3) mg/dL Total Bilirubin (0.2-1.0) mg/dL AST (13-39) U/L ALT (7-52) U/L Alkaline Phosphatase (34-104) U/L CK-MB (CK-2) (0.6-6.3) ng/mL Troponin I (<0.04) ng/mL C-Reactive Protein (< 5.00) mg/L B-Natriuretic Peptide ( - 100) pg/mL Total Protein (6.4-8.9) g/dL Albumin (3.2-5.2) g/dL Globulin (2-4) g/dL Albumin/Globulin Ratio (1-3) Result Diagrams: 02/27/17 05:07 02/27/17 05:07 Lab Statement: Any lab studies that have been ordered have been reviewed, and results considered in the medical decision making process. - EKG 1751 Cardiac Rate: NL - 67bpm EKG Rhythm: Sinus Rhythm EKG Comparison: No Significant Change - from 06/29/2015 Complex Multi-Symp Course/Dx Course Of Treatment: A 56 y/o F presents to ED with c/o feeling dehydrated onset today. Pt is on peritoneal dialysis, 12 hours at night. Associated sx: weakness, SOB, lightheaded, diarrhea 1x last night. Denies CP, cough, fever, abd pain. Sees Dr. Bianchi, nephrology. Assessment/Plan: In the ED course an IV access was obtained. Patient was placed in a patient monitor. Patient was started with gently hydration since patient seems to be dehydrated. P/E reveals crackles in both lungs. Labs consistent with CHF exacerbation, ESRD for which patient is peritoneal dialysis and increased troponin to r/o ACS. K+ still pending which it will be followed by Dr. Crowe. Dr. Gomez will order diuresis and further treatment for the patient. CXR shows interstitial edema and pleural effusion. She continues to be hemodynamically stable and A+O x3. Patient accepted by Dr. Gomez for admission. - Diagnoses Provider Diagnoses: CHF exacerbation, Pleural effusion Discharge - Discharge Plan Condition: Stable Disposition: OTHER Discharge Disposition Comment: SO to Dr. Beal pending CXR read, lab results. The documentation as recorded by the Ayan woods SooYoung accurately reflects the service I personally performed and the decisions made by me, Jt Ricci MD.
[2017-02-27] MEDS: Sevelamer TAB* 800 MG PO SCH ×3 (08:08→17:17)
[2017-02-27] MEDS: NIFEdipine ER TAB* 30 MG PO SCH (08:09)
[2017-02-27] MEDS: Aliskiren TAB* 300 MG PO SCH (08:09)
[2017-02-27] MEDS: Sertraline* 50 MG TAB PO SCH (08:09)
[2017-02-27] MEDS: Carvedilol TAB* 25 MG PO SCH ×2 (08:09→21:06)
[2017-02-27] MEDS: Calcitriol CAP* 0.25 MCG PO SCH (08:09)
--- NOTE | 2017-02-27 11:44 | PN ---
Subjective Date of Service: 02/27/17 Interval History: Appears much more comfortable today, resting in bed. Less tachypneic. She says she feels almost back to baseline but does not feel ready to go home today. We discussed rehab options, but she declines. SOB improved with ambulation, no chest pain, no palpitations, no abdominal pain but she does report some post-prandial nausea. Family History: Unchanged from Admission Social History: Unchanged from Admission Past Medical History: Unchanged from Admission Objective Active Medications: Acetaminophen (Tylenol Tab*) 650 mg PO Q4H PRN PRN Reason: FEVER/PAIN Last Admin: 02/25/17 14:23 Dose: 650 mg Hydrocodone Bitart/Acetaminophen (Freedom 5-325 Tab*) 1 tab PO Q4H PRN PRN Reason: PAIN - MILD TO MODERATE Last Admin: 02/26/17 15:03 Dose: 1 tab Hydrocodone Bitart/Acetaminophen (Freedom 5-325 Tab*) 2 tab PO Q4H PRN PRN Reason: PAIN - MODERATE TO SEVERE Last Admin: 02/27/17 03:37 Dose: 2 tab [place] (Tekturna Tab*) 300 mg PO DAILY [facility] Last Admin: 02/27/17 08:09 Dose: 300 mg Calcitriol (Rocaltrol Cap*) 0.25 mcg PO DAILY [facility] Last Admin: 02/27/17 08:09 Dose: 0.25 mcg Carvedilol (Coreg Tab*) 25 mg PO BID [facility] Last Admin: 02/27/17 08:09 Dose: 25 mg Heparin Sodium (Porcine) (Heparin Vial(*)) 5,000 units SUBCUT Q8HR [facility] Last Admin: 02/27/17 05:20 Dose: Not Given Hydralazine HCl (Apresoline Iv*) 5 mg IV SLOW PU Q6H PRN PRN Reason: BLOOD PRESSURE Last Admin: 02/26/17 20:28 Dose: 5 mg Lorazepam (Ativan Tab(*)) 1 mg PO Q6H PRN PRN Reason: ANXIETY Last Admin: 02/26/17 23:29 Dose: 1 mg Melatonin (Melatonin (Nf)) 3 mg PO BEDTIME PRN PRN Reason: INSOMNIA Mupirocin (Bactroban 2 % Oint*) 1 applic TOPICAL DAILY [facility] Last Admin: 02/26/17 13:44 Dose: 1 applic Nifedipine (Procardia Xl Tab*) 30 mg PO DAILY [facility] Last Admin: 02/27/17 08:09 Dose: 30 mg Ondansetron HCl (Zofran Inj*) 4 mg IV Q8H PRN PRN Reason: NAUSEA Last Admin: 02/26/17 20:28 Dose: 4 mg Sertraline HCl (Zoloft*) 100 mg PO DAILY [facility] Last Admin: 02/27/17 08:09 Dose: 100 mg Sevelamer Carbonate (Renvela Tab*) 4,000 mg PO TID WITH MEALS [facility] Last Admin: 02/27/17 08:08 Dose: 1,600 mg Sevelamer Carbonate (Renvela Tab*) 4,000 mg PO .SEE COMMENTS PRN PRN Reason: WITH SNACKS Vital Signs 02/26/17 02/26/17 02/26/17 12:44 13:43 14:44 Temperature Pulse Rate Respiratory 20 20 22 Rate Blood Pressure (mmHg) O2 Sat by Pulse Oximetry 02/26/17 02/26/17 02/26/17 15:03 15:23 15:40 Temperature Pulse Rate 68 68 Respiratory 22 20 Rate Blood Pressure 188/83 (mmHg) O2 Sat by Pulse 100 Oximetry 02/26/17 02/26/17 02/26/17 15:42 15:43 17:03 Temperature Pulse Rate Respiratory 20 20 Rate Blood Pressure 190/88 (mmHg) O2 Sat by Pulse Oximetry 02/26/17 02/26/17 02/26/17 19:51 20:00 21:01 Temperature 97.3 F Pulse Rate 70 Respiratory 20 24 22 Rate Blood Pressure 182/83 (mmHg) O2 Sat by Pulse 100 Oximetry 02/26/17 02/26/17 02/26/17 23:01 23:29 23:47 Temperature 97.5 F Pulse Rate 75 Respiratory 18 22 20 Rate Blood Pressure 136/69 (mmHg) O2 Sat by Pulse 100 Oximetry 02/27/17 02/27/17 02/27/17 01:29 03:37 03:44 Temperature 97.8 F Pulse Rate 72 Respiratory 18 24 20 Rate Blood Pressure 124/76 (mmHg) O2 Sat by Pulse 100 Oximetry 02/27/17 02/27/17 02/27/17 07:05 07:45 08:28 Temperature 97.4 F Pulse Rate 70 Respiratory 18 18 18 Rate Blood Pressure 152/79 (mmHg) O2 Sat by Pulse 100 Oximetry Oxygen Devices in Use Now: Nasal Cannula Appearance: alert, thin, ill-appearing, breathing more comfortable Eyes: No Scleral Icterus, PERRLA Ears/Nose/Mouth/Throat: NL Teeth, Lips, Gums, Clear Oropharnyx Neck: NL Appearance and Movements; NL JVP, Trachea Midline Respiratory: Symmetrical Chest Expansion and Respiratory Effort, Clear to Auscultation Cardiovascular: - - systolic murmur at the apex with radiation throughout Abdominal: - - distended, firm, nontender. Lymphatic: No Cervical Adenopathy Extremities: No Edema Skin: No Rash or Ulcers Neurological: Alert and Oriented x 3 Result Diagrams: 02/27/17 05:07 02/27/17 05:07 Additional Lab and Data: Lab Results 02/24/17 02/24/17 02/24/17 Range/Units 18:35 18:35 18:35 WBC 5.1 (3.5-10.8) 10^3/ul RBC 4.15 (4.0-5.4) 10^6/ul Hgb 12.1 (12.0-16.0) g/dl Hct 38 (35-47) % MCV 91 (80-97) fL MCH 29 (27-31) pg MCHC 32 (31-36) g/dl RDW 16 H (10.5-15) % Plt Count 171 (150-450) 10^3/ul MPV 8 (7.4-10.4) um3 Neut % (Auto) 67.8 (38-83) % Lymph % (Auto) 18.4 L (25-47) % Stafford % (Auto) 10.5 H (1-9) % Eos % (Auto) 1.8 (0-6) % Baso % (Auto) 1.5 (0-2) % Absolute Neuts (auto) 3.4 (1.5-7.7) 10^3/ul Absolute Lymphs (auto) 0.9 L (1.0-4.8) 10^3/ul Absolute Monos (auto) 0.5 (0-0.8) 10^3/ul Absolute Eos (auto) 0.1 (0-0.6) 10^3/ul Absolute Basos (auto) 0.1 (0-0.2) 10^3/ul Absolute Nucleated RBC 0 10^3/ul Nucleated RBC % 0.1 Sodium 133 (133-145) mmol/L Potassium 5.4 H (3.5-5.0) mmol/L Chloride 95 L (101-111) mmol/L Carbon Dioxide 20 L (22-32) mmol/L Anion Gap 18 H (2-11) mmol/L BUN 80 H (6-24) mg/dL Creatinine 11.77 H (0.51-0.95) mg/dL Est GFR ( Amer) 4.3 (>60) Est GFR (Non-Af Amer) 3.3 (>60) BUN/Creatinine Ratio 6.8 L (8-20) Glucose 90 (70-100) mg/dL Lactic Acid (0.5-2.0) mmol/L Calcium 8.9 (8.6-10.3) mg/dL Total Bilirubin 0.30 (0.2-1.0) mg/dL AST 14 (13-39) U/L ALT 10 (7-52) U/L Alkaline Phosphatase 93 (34-104) U/L CK-MB (CK-2) 20.1 H (0.6-6.3) ng/mL Troponin I 0.14 H* (<0.04) ng/mL C-Reactive Protein 7.91 H (< 5.00) mg/L B-Natriuretic Peptide 2607 H ( - 100) pg/mL Total Protein 6.2 L (6.4-8.9) g/dL Albumin 3.1 L (3.2-5.2) g/dL Globulin 3.1 (2-4) g/dL Albumin/Globulin Ratio 1.0 (1-3) 02/24/ Range/Units 18:35 WBC (3.5-10.8) 10^3/ul RBC (4.0-5.4) 10^6/ul Hgb (12.0-16.0) g/dl Hct (35-47) % MCV (80-97) fL MCH (27-31) pg MCHC (31-36) g/dl RDW (10.5-15) % Plt Count (150-450) 10^3/ul MPV (7.4-10.4) um3 Neut % (Auto) (38-83) % Lymph % (Auto) (25-47) % Stafford % (Auto) (1-9) % Eos % (Auto) (0-6) % Baso % (Auto) (0-2) % Absolute Neuts (auto) (1.5-7.7) 10^3/ul Absolute Lymphs (auto) (1.0-4.8) 10^3/ul Absolute Monos (auto) (0-0.8) 10^3/ul Absolute Eos (auto) (0-0.6) 10^3/ul Absolute Basos (auto) (0-0.2) 10^3/ul Absolute Nucleated RBC 10^3/ul Nucleated RBC % Sodium (133-145) mmol/L Potassium (3.5-5.0) mmol/L Chloride (101-111) mmol/L Carbon Dioxide (22-32) mmol/L Anion Gap (2-11) mmol/L BUN (6-24) mg/dL Creatinine (0.51-0.95) mg/dL Est GFR ( Amer) (>60) Est GFR (Non-Af Amer) (>60) BUN/Creatinine Ratio (8-20) Glucose (70-100) mg/dL Lactic Acid 0.7 (0.5-2.0) mmol/L Calcium (8.6-10.3) mg/dL Total Bilirubin (0.2-1.0) mg/dL AST (13-39) U/L ALT (7-52) U/L Alkaline Phosphatase (34-104) U/L CK-MB (CK-2) (0.6-6.3) ng/mL Troponin I (<0.04) ng/mL C-Reactive Protein (< 5.00) mg/L B-Natriuretic Peptide ( - 100) pg/mL Total Protein (6.4-8.9) g/dL Albumin (3.2-5.2) g/dL Globulin (2-4) g/dL Albumin/Globulin Ratio (1-3) Assess/Plan/Problems-Billing Assessment: 1. Acute Hypoxic Respiratory Failure Resolving; able to walk with PT yesterday with O2. Still with b/l pleural effusions yesterday despite successful PD, and weight is elevated from dry weight (209lbs). Likely caused by hypertensive crisis. Discussed case with nephrology; Dr. Bianchi will assess today for consideration of more aggressive PD. Markedly improved today. REYES is improved. 2. 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 Now well controlled on home regimen and PD 3. Elevated troponin likely related to volume overload in the setting of ESRD. She does have TWIs laterally that are unchanged from a 2016 ekg. 4. CAD She is not on asa, statin, or bb--need med rec, unclear why not 5. NICM May also be contributing to her volume overload; does not make urine so will address PD volume as above.
[2017-02-27] MEDS: Ondansetron INJ* 2 MG/ML VIAL IV PRN (12:43)
[2017-02-27] MEDS: Mupirocin 2% OINT* TUBE TOPICAL SCH ×2 (21:06→21:07)
--- NOTE | 2017-02-28 07:22 | PN ---
PROGRESS NOTE: DATE OF SERVICE/DICTATION: 02/27/17 HISTORY: Ms. Charles had been rather short of breath here in the hospital with an elevated respiratory rate. Dr. Núñez asked me to come over and see if this looked to be her baseline. The patient tells me that she is actually breathing a lot better this morning since we tried to ultrafilter off some extra fluid last night. Interestingly enough however her weight is not down, but actually a little up since admission. She denies chest pain. She has had some back pain, which is a chronic and longstanding problem for her. She is having diffuse itch which is also a longstanding and chronic problem for her. Her blood pressure is 152/79 with a pulse of 70, respiratory rate is stable at 18. She has some bibasilar rales. She has some signs of fluid overload on her CT scan. We are going to try to go ahead and ultrafilter off some more fluid a little more aggressively tonight than last night. I think she probably has been losing lean body mass, we will need to drop her dry weight. [id number] #: [id number] EL
[2017-02-28] MEDS: Carvedilol TAB* 25 MG PO SCH ×2 (08:43→21:05)
[2017-02-28] MEDS: NIFEdipine ER TAB* 30 MG PO SCH (08:43)
[2017-02-28] MEDS: Calcitriol CAP* 0.25 MCG PO SCH (08:43)
[2017-02-28] MEDS: Sertraline* 50 MG TAB PO SCH (08:44)
[2017-02-28] MEDS: Aliskiren TAB* 300 MG PO SCH (08:44)
[2017-02-28] MEDS: Sevelamer TAB* 800 MG PO SCH ×3 (08:44→17:36)
[2017-02-28] MEDS: Heparin VIAL(*) 5000 UNITS/ML VIAL (FIVE THOUSAND) SUBCUT SCH ×3 (08:44→21:05)
[2017-02-28] MEDS: HYDROcodone/ACETAMIN 5-325 MG* 1 TAB PO PRN (08:57)
[2017-02-28 09:05] LABS: Calcium 8.6 mg/dL (8.6-10.3); EGFR African American 4.9 (>60); EGFR Non-African American 3.8 (>60); Potassium 4.5 mmol/L (3.5-5.0)
--- NOTE | 2017-02-28 11:42 | PN ---
Subjective Date of Service: 02/28/17 Interval History: Had 2.5L UF off overnight with PD. Patient seen this morning. Says she feels "terrible". Feels very dry. Reports difficulty swallowing which apparently has been going on for some time. Reports sensation of things getting stuck in her throat, even water. Breathing feels better. Family History: Unchanged from Admission Social History: Unchanged from Admission Past Medical History: Unchanged from Admission Objective Active Medications: Acetaminophen (Tylenol Tab*) 650 mg PO Q4H PRN PRN Reason: FEVER/PAIN Last Admin: 02/25/17 14:23 Dose: 650 mg Hydrocodone Bitart/Acetaminophen (Heth 5-325 Tab*) 1 tab PO Q4H PRN PRN Reason: PAIN - MILD TO MODERATE Last Admin: 02/26/17 15:03 Dose: 1 tab Hydrocodone Bitart/Acetaminophen (Heth 5-325 Tab*) 2 tab PO Q4H PRN PRN Reason: PAIN - MODERATE TO SEVERE Last Admin: 02/28/17 08:57 Dose: 2 tab [place] (Tekturna Tab*) 300 mg PO DAILY [facility] Last Admin: 02/28/17 08:44 Dose: 300 mg Calcitriol (Rocaltrol Cap*) 0.25 mcg PO DAILY [facility] Last Admin: 02/28/17 08:43 Dose: 0.25 mcg Carvedilol (Coreg Tab*) 25 mg PO BID [facility] Last Admin: 02/28/17 08:43 Dose: 25 mg Heparin Sodium (Porcine) (Heparin Vial(*)) 5,000 units SUBCUT Q8HR [facility] Last Admin: 02/28/17 08:44 Dose: Not Given Hydralazine HCl (Apresoline Iv*) 5 mg IV SLOW PU Q6H PRN PRN Reason: BLOOD PRESSURE Last Admin: 02/26/17 20:28 Dose: 5 mg Lorazepam (Ativan Tab(*)) 1 mg PO Q6H PRN PRN Reason: ANXIETY Last Admin: 02/26/17 23:29 Dose: 1 mg Melatonin (Melatonin (Nf)) 3 mg PO BEDTIME PRN PRN Reason: INSOMNIA Mupirocin (Bactroban 2 % Oint*) 1 applic TOPICAL DAILY [facility] Last Admin: 02/27/17 21:07 Dose: 1 applic Nifedipine (Procardia Xl Tab*) 30 mg PO DAILY [facility] Last Admin: 02/28/17 08:43 Dose: 30 mg Ondansetron HCl (Zofran Inj*) 4 mg IV Q8H PRN PRN Reason: NAUSEA Last Admin: 02/27/17 12:43 Dose: 4 mg Sertraline HCl (Zoloft*) 100 mg PO DAILY [facility] Last Admin: 02/28/17 08:44 Dose: 100 mg Sevelamer Carbonate (Renvela Tab*) 4,000 mg PO TID WITH MEALS [facility] Last Admin: 02/28/17 08:44 Dose: Not Given Sevelamer Carbonate (Renvela Tab*) 4,000 mg PO .SEE COMMENTS PRN PRN Reason: WITH SNACKS Vital Signs 02/27/17 02/27/17 02/27/17 12:49 14:49 15:32 Temperature 97.5 F Pulse Rate 65 Respiratory 18 18 16 Rate Blood Pressure 173/79 (mmHg) O2 Sat by Pulse 96 Oximetry 02/27/17 02/27/17 02/27/17 19:53 21:10 23:10 Temperature Pulse Rate Respiratory 16 20 16 Rate Blood Pressure (mmHg) O2 Sat by Pulse Oximetry 02/28/17 02/28/17 02/28/17 00:10 07:24 07:36 Temperature 98.2 F 97.6 F Pulse Rate 73 73 Respiratory 16 24 16 Rate Blood Pressure 147/72 168/80 (mmHg) O2 Sat by Pulse 90 94 Oximetry Oxygen Devices in Use Now: None Appearance: Middle-aged, F, appears older than stated age, frail, thin Eyes: No Scleral Icterus Ears/Nose/Mouth/Throat: - - Dry MM Neck: NL Appearance and Movements; NL JVP Respiratory: Symmetrical Chest Expansion and Respiratory Effort, Clear to Auscultation Cardiovascular: NL Sounds; No Murmurs; No JVD, RRR Abdominal: - - Soft, non-tender, non-distended, BS+ Lymphatic: No Cervical Adenopathy Extremities: No Edema Skin: No Rash or Ulcers Neurological: Alert and Oriented x 3 Result Diagrams: 02/27/17 05:07 02/28/17 08:30 Assess/Plan/Problems-Billing Assessment: Hypertensive urgency, fluid overload, acute on chronic systolic CHF exacerbation in a 56 yo F with hx of ESRD on PD, APCKD, cardiomyopathy with EF 35-40% - Patient Problems (1) Dysphagia Current Visit: Yes Comment: Reports unable to take in significant PO. Never had EGD in the past. Will get swallow eval and esophagogram. (2) Acute respiratory failure with hypoxia Current Visit: Yes Comment: Resolved. Likely caused by hypertensive crisis. Dr. Bianchi evaluated patient, 2.5L UF taken off overnight. SOB seems to have resolved. (3) Hypertensive urgency Current Visit: No Comment: Resolved. Continue tekturna, nifedipine, carvediolol. Not on Isordil, will remove from home list. (4) Hx of cardiomyopathy Current Visit: No Comment: EF 35-40%. Unchanged from prior echo. Liklely contributed to fluid overloaded with elevated BPs. (5) Hx of coronary artery disease Current Visit: No Comment: Continue beta-samira. Not on ASA/statin, can address with PCP (6) ESRD (end stage renal disease) Current Visit: No Comment: 2/2 APKD. Additional UF taken overnight, likely making patient feel a bit worse today. Continue calcitriol and sevelamer (7) DVT prophylaxis Current Visit: Yes Comment: HSQ
[2017-02-28] MEDS: LORazepam TAB(*) 1 MG PO PRN (16:25)
[2017-02-28] MEDS: Mupirocin 2% OINT* TUBE TOPICAL SCH (21:04)
[2017-03-01] MEDS: Heparin VIAL(*) 5000 UNITS/ML VIAL (FIVE THOUSAND) SUBCUT SCH (05:14)
[2017-03-01] MEDS: Sevelamer TAB* 800 MG PO SCH ×2 (08:52→13:07)
--- NOTE | 2017-03-01 09:04 | RAD ---
INDICATION: Dysphasia COMPARISON: None TECHNIQUE: Barium was administered per os and digital fluoroscopy was performed with cine loop and digital spot imaging of the esophagus. 0.6 minutes of fluoroscopy was utilized. The examination is mildly limited due to difficulty in positioning the patient due to her clinical condition. Prone imaging could not be performed Esophagus: The esophagus is normal in caliber and motility. There are no mucosal irregularities GE junction: The GE junction is normally positioned. There is no hiatal hernia. There is no gastroesophageal reflux Other: None. IMPRESSION: NO ABNORMALITIES ARE IDENTIFIED. CPT II Codes: 6045F PQRS (Fluoro time doc)
[2017-03-01] MEDS: Aliskiren TAB* 300 MG PO SCH (09:45)
[2017-03-01] MEDS: Sertraline* 50 MG TAB PO SCH (09:45)
[2017-03-01] MEDS: NIFEdipine ER TAB* 30 MG PO SCH (09:45)
[2017-03-01] MEDS: Calcitriol CAP* 0.25 MCG PO SCH (09:45)
[2017-03-01] MEDS: Carvedilol TAB* 25 MG PO SCH (09:45)
[2017-03-01] MEDS: Mupirocin 2% OINT* TUBE TOPICAL SCH (09:48)
[2017-03-01 11:02] VITALS: BP 164/65
--- NOTE | 2017-03-01 12:22 | DCNOTE ---
Patient seen this morning. Says she is feeling a bit better than yesterday. Had some breakfast this morning and did better this dinner last night. Explained normal esophagogram. On exam, RRR, DONALD, lungs with some minimal rales in L base, no LE edema O2 in place but not required, patient satting 95% on RA. Will plan to discharge today and will need close PCP follow-up. If continues to have swallowing issues can consider outpatient EGD.
--- NOTE | 2017-03-02 09:14 | DS ---
DISCHARGE SUMMARY: DATE OF ADMISSION: 02/24/17 DATE OF DISCHARGE: 03/01/17 PRINCIPAL DISCHARGE DIAGNOSES: 1. Acute hypoxic respiratory failure. 2. Hypertensive urgency. 3. Acute systolic congestive heart failure exacerbation. SECONDARY DIAGNOSES: 1. Endstage renal disease on peritoneal dialysis without polycystic kidney disease. 2. Dysphagia. DISCHARGE MEDICATION REGIMEN: 1. Sevelamer 4000 mg by mouth with meals and snacks. 2. Benadryl 25 mg by mouth at bedtime as needed for insomnia. 3. Nifedipine extended release 30 mg by mouth daily. 4. Zoloft 100 mg by mouth daily. 5. Coreg 25 mg by mouth 3 times daily. 6. Sterling 10/325 one tablet by mouth every 6 hours as needed for pain. 7. Ativan 1 mg by mouth every 6 hours as needed for anxiety. 8. Tylenol 500 mg by mouth every 6 hours as needed for pain. 9. Tekturna 300 mg by mouth daily. 10. Calcitriol 1 capsule by mouth daily. 11. Vitamin D 1 tablet by mouth daily. STUDIES DONE DURING HOSPITALIZATION: Chest x-ray 02/24/17, impression: Stigmata of chronic obstructive pulmonary disease, mild left basilar consolidation, multiple healed rib fractures, and suggestion of at least 1 acute nondisplaced rib fracture at the right, approximately the 8th rib laterally, negative for pneumothorax. Repeat chest x-ray 02/25/17, findings most consistent with congestive heart failure less likely pneumonia. Transthoracic echocardiogram, conclusion: There is global hypokinesis of the left ventricle with minor regional variation. There is mild to moderately decreased left ventricular systolic function. The estimated ejection fraction is 35% to 40%. Trace to mild aortic regurgitation. No evidence of aortic stenosis. Posterior mitral annular calcification. Mild mitral regurgitation. Mild tricuspid regurgitation, evidence of mild pulmonary hypertension, trivial pericardial effusion is visualized. No significant changes when compared to the previous study of 01/09/14. Repeat chest x-ray 02/26/17, impression: Interstitial edema with left pleural effusion and left basilar atelectasis, this is unchanged from February 25. CTA of the chest. Impression: No CT evidence of pulmonary embolism. Signs of fluid overload, include mild ground glass opacification and small pleural effusions both similar to the prior CT exam. Additional chronic and degenerative changes described in the body of the report unlikely to be related to the patient's current presentation. Esophagogram, impression: No abnormalities identified. HISTORY OF PRESENT ILLNESS AND HOSPITAL SUMMARY: Please see the full history and physical by Lisa Palencia NP, for full details. Briefly, Ms. Charles is a 56-year-old female with a past medical history as above who presented to the hospital with weakness, shortness of breath, and mild troponin elevation, as well as hypertensive urgency. The patient had systolic blood pressures in the 200s, apparently she was not taking her medications for a few days leading up to hospitalization. It was felt these elevated blood pressures lead to acute on chronic systolic CHF exacerbation. The patient due to her renal disease is not particularly responsive to Lasix and extra fluid was filtered during her peritoneal dialysis. Over the following days, her symptoms improved, she was able to be weaned off of oxygen. She was seen by Dr. Bianchi while in the hospital who increased her ultrafiltrate to 2.5 L on the night of the although it seemed like that may have been a bit too much as the patient felt very fatigued and "dried out" the next day. The patient was complaining of some dysphagia during the hospitalization stating she felt that the food got stuck just below her rib cage. This apparently has been going on for some time. She underwent a swallow evaluation as well as an esophagogram both of which were normal. If this persists as an outpatient, she can see her PCP and consider possible GI evaluation and the need for endoscopy. The patient blood pressures were fairly well-controlled back on her home medications. She will be discharged on this and we will follow up with her PCP and Dr. Bianchi as an outpatient. TIME SPENT: Total time spent on this discharge 45 minutes, this is a summary of the hospitalization, please see the full medical record for further details. [id number]/[facility] #: [id number] [facility] CENTERRenee
== END 2017-03-01 14:25 | disposition home or self-care (01) | DRG 189 ==
LOC: ED 15:44 → MEDTELE 20:58 → MED 02-28 16:39
PROVIDERS: ADMIT Nurse Practitioner Family; ATTEND Hospitalist
PROC: 3E1M39Z Irrigation of Peritoneal Cavity using Dialysate, Percutaneous Approach (ICD-10-PCS; principal; 2017-02-25)
DX: J96.00 Acute respiratory failure, unspecified whether with hypoxia or hypercapnia (principal); I50.21 Acute systolic (congestive) heart failure; N18.6 End stage renal disease; Q61.3 Polycystic kidney, unspecified; R13.10 Dysphagia, unspecified; E87.5 Hyperkalemia; S22.31XA Fracture of one rib, right side, initial encounter for closed fracture; 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 disease with heart failure and with stage 5 chronic kidney disease, or end stage renal disease; I16.0 Hypertensive urgency; R74.8 Abnormal levels of other serum enzymes; W18.30XA Fall on same level, unspecified, initial encounter; F41.9 Anxiety disorder, unspecified; F32.9 Major depressive disorder, single episode, unspecified; Z86.73 Personal history of transient ischemic attack (TIA), and cerebral infarction without residual deficits; Z99.2 Dependence on renal dialysis; Y92.9 Unspecified place or not applicable; Z79.1 Long term (current) use of non-steroidal anti-inflammatories (NSAID); Z79.899 Other long term (current) drug therapy; Z88.5 Allergy status to narcotic agent; Z91.048 Other nonmedicinal substance allergy status
CPT/HCPCS: 36415; 71010; 71020; 71275; 74220; 80048; 80053; 82553; 82803; 83605; 83880; 84484; 85025; 86140; 87040; 90686; 90945; 93005; 93306; A9270-GY; G0257; J0360; J1644; J1940; J2405; Q9967

== ENCOUNTER 2017-03-05 15:19 | Emergency (ER) | payer MEDICARE ==
[2017-03-05] MEDS ORDERED: Aspirin Low Dose CHEW TAB* 81 MG PO ONE (15:30)
--- NOTE | 2017-03-05 16:14 | RAD ---
Indication: Fall, head injury. CT of the brain was performed without IV contrast. Comparison is made with previous exam dated December 02, 2016. Ventricular structures are midline. No midline shift is noted. The extraction spaces are unremarkable. Hypodensity is noted in the deep white white matter of the right frontal lobe as well as in the left basal ganglia and left frontal lobe. Are consistent with old lacunar infarcts and have not significantly changed since previous exam. No evidence of mass or hemorrhage is noted otherwise. The bony calvaria including mastoid air cells and paranasal sinuses are otherwise unremarkable. IMPRESSION: No intracranial mass or hemorrhage is noted. Bifrontal lacunar infarct left basal ganglia lacunar infarct is unchanged from previous exam.
--- NOTE | 2017-03-05 16:21 | RAD ---
Indication: Fall, neck injury. CT of the cervical spine was obtained in the axial plane. Sagittal and coronal reconstructed images were obtained. The skull base demonstrates mastoid air cells to be well aerated. No evidence of fracture is noted. The C1 intact. No evidence of compression fracture is noted. The vertebral bodies from C2, C3 and C4 are intact. Due to disc disease is noted at C5-C6. There appears to be a fracture of the spinous process C6. No extension into the lamina is noted. There are also fractures of the spinous processes of C7 and T1 which appear to BE well-corticated and the age of these are undetermined. No evidence of facet arthropathy or facet malalignment is noted. IMPRESSION: There appears to be a fracture of the spinous processes of C6. Additionally there are likely old fractures of the spinous processes of C7 and T1 as the margins appear to be well-corticated. No spinal canal compromise is noted.
[2017-03-05 16:42] LABS: Hematocrit 29 % (35-47); Hemoglobin 9.6 g/dl (12.0-16.0); Mean Corpuscular HGB Conc 34 g/dl (31-36); Mean Corpuscular Hemoglobin 30 pg (27-31); Mean Corpuscular Volume 90 fL (80-97); Mean Platelet Volume 8 um3 (7.4-10.4); Red Blood Count 3.19 10^6/ul (4.0-5.4); Red Cell Distribution Width 16 % (10.5-15); White Blood Count 7.3 10^3/ul (3.5-10.8)
[2017-03-05 16:59] LABS: Albumin 2.5 g/dL (3.2-5.2); BUN/Creatinine Ratio 4.8 (8-20); Calcium 8.5 mg/dL (8.6-10.3); EGFR African American 4.8 (>60); EGFR Non-African American 3.7 (>60); Potassium 4.4 mmol/L (3.5-5.0); Total Bilirubin 0.3 mg/dL (0.2-1.0); Total Protein 5.5 g/dL (6.4-8.9)
[2017-03-05] MEDS ORDERED: Lidocaine 2% EPI 1:200000 MPF* 20 ML VIAL INJ ONE (20:00)
[2017-03-05] MEDS ORDERED: Lidocaine 2% EPI 1:200000 MPF* 20 ML VIAL ONE (20:02)
--- NOTE | 2017-03-05 21:14 | PN ---
Progress Note - Progress Note Date of Service: 03/05/17 Note: Suture placement done by Lynnette Ruiz 1. right knee irregular 5cm by 1 and 1/2 cm laceration cleaned with saline 500cc betadaine prep single layer prolene 4-0 8 sutures placed sterial dressing with telfa, coband, and jayden placed 2. head lac 4cm by 1cm lac irregular cleaned with saline 500cc single layer prolene 6-0 5 sutures placed
[2017-03-05 21:35] VITALS: BP 136/74
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
== END 2017-03-05 21:35 | disposition home or self-care (01) ==
LOC: ED 15:19
DX: S01.81XA Laceration without foreign body of other part of head, initial encounter (principal); S12.9XXA Fracture of neck, unspecified, initial encounter; S09.90XA Unspecified injury of head, initial encounter; W17.89XA Other fall from one level to another, initial encounter; Y93.9 Activity, unspecified; Y92.9 Unspecified place or not applicable; Z87.891 Personal history of nicotine dependence
CPT/HCPCS: 36415; 70450; 72125; 80053; 83605; 85025; 85610; 93005; 96374; 99283

== ENCOUNTER 2017-06-22 12:04 | Inpatient (IN) | payer MEDICARE ==
--- NOTE | 2017-06-22 13:31 | RAD ---
Indication: Chest pain. Single frontal view of the chest performed at 1307 hourswas reviewed. Comparison is made with previous exam dated April 16, 2017. No mediastinal shift is noted. Heart is of normal size and configuration. Lung curry appear clear. Multiple bilateral rib fractures are noted. This was likely present previously. No pneumothorax is noted. Chronic pleural changes are noted. IMPRESSION: CHRONIC PLEURAL CHANGES WITH NO PNEUMONIA. LIKELY BILATERAL RIB FRACTURES.
[2017-06-22 14:06] LABS: ABS Basophils 0 10^3/ul (0-0.2); ABS Eosinophils 0 10^3/ul (0-0.6); ABS Lymphocytes 0.6 10^3/ul (1.0-4.8); ABS Monocytes 0.6 10^3/ul (0-0.8); ABS Neutrophils 11.9 10^3/ul (1.5-7.7); ABS Nucleated RBC 0 10^3/ul; Eosinophil % 0.1 % (0-6); Hematocrit 31 % (35-47); Lymphocyte % 4.8 % (25-47); Mean Corpuscular HGB Conc 32 g/dl (31-36); Mean Corpuscular Hemoglobin 29 pg (27-31); Mean Corpuscular Volume 89 fL (80-97); Mean Platelet Volume 7 um3 (7.4-10.4); Nucleated Red Blood Cells % 0; Platelet Count 263 10^3/ul (150-450); Red Blood Count 3.47 10^6/ul (4.0-5.4); Red Cell Distribution Width 14 % (10.5-15); White Blood Count 13.2 10^3/ul (3.5-10.8)
[2017-06-22] MEDS ORDERED: HYDROmorphone INJ* 2 MG/ML CARPUJECT SYRINGE IV SLOW PU ONE (14:10)
[2017-06-22 14:22] LABS: EGFR Non-African American 6.2 (>60)
[2017-06-22] MEDS ORDERED: Piperacillin/Tazobac ADVAN(*) 3.375 GM in NS 0.9% 100 ML* 100 ML IVPB ONE (15:54)
[2017-06-22] MEDS ORDERED: Zosyn per Pharmacy* NOTE FOLLOW UP SCH (16:00)
[2017-06-22] MEDS ORDERED: HYDROcodone/ACETAMIN 5-325 MG* 1 TAB ONE (17:03)
--- NOTE | 2017-06-22 17:46 | RAD ---
Indication: Right ankle pain. 3 views of the right ankle demonstrates no fracture. Soft tissue swelling is noted. Atherosclerosis with arterial calcification of the posterior tibial and dorsalis pedis artery is noted. IMPRESSION: Soft tissue swelling without fracture.
--- NOTE | 2017-06-22 17:48 | RAD ---
Indication: Right hip pain, leg pain. Single view of the pelvis and 2 views of the right hip are reviewed. There is sclerosis in the right femoral head. No definite fracture is noted. The possibility of avascular necrosis should be considered. The left femoral head appears similar. The pelvic ring is grossly intact. IMPRESSION: No definite fracture is noted. There is increased sclerosis in both femoral heads and the possibility of avascular necrosis should be considered. Findings are similar to that seen on CT dated June 19, 2017.
--- NOTE | 2017-06-22 17:49 | RAD ---
Indication: Right lower leg pain. 2 views of the right lower leg demonstrates no fracture. No other bone or joint abnormality is noted. IMPRESSION: No fracture of the right lower leg is noted.
--- NOTE | 2017-06-22 17:49 | RAD ---
Indication: Right knee pain. 2 views of the right knee demonstrates no fracture. Calcification along the quadriceps tendon is noted. Atherosclerosis of the popliteal artery is noted. IMPRESSION: No fracture is noted. Calcification along the quadriceps tendon. Atherosclerosis is noted.
[2017-06-22] MEDS: ZOSYN 3.375 GM Q12H per EXTENDED INFUSION IVPB SCH ×2 (19:49)
[2017-06-22] MEDS: Carvedilol TAB* 25 MG PO SCH (19:53)
[2017-06-22] MEDS: NIFEdipine ER TAB* 30 MG PO SCH (19:53)
[2017-06-22] MEDS ORDERED: Heparin DIALYSIS ONLY(*) 1,000 UNITS/ML VIAL DIALYSIS ONE (22:00)
[2017-06-22] MEDS: Ondansetron INJ* 2 MG/ML VIAL IV PRN (22:39)
[2017-06-22] MEDS: Heparin VIAL(*) 5000 UNITS/ML VIAL (FIVE THOUSAND) SUBCUT SCH (22:40)
--- NOTE | 2017-06-22 22:56 | HP ---
CC: Dr. Letty Duffy * MEDICINE HISTORY AND PHYSICAL: DATE OF ADMISSION: 06/22/17 ATTENDING PHYSICIAN: Romana Núñez DO * (dictated by Tomasa Ibarra NP) PRIMARY CARE PROVIDER: Dr. Letty Duffy. PRIMARY LABORER: Jet Bianchi MD CHIEF COMPLAINT: Abdominal pain and weakness. HISTORY OF PRESENT ILLNESS: Ms. Charles is a 56-year-old female who has a past medical history of peritoneal dialysis secondary to end-stage renal disease , systolic heart failure with EF of 35% to 40%, polycystic kidney disease, hypertension, coronary artery disease, who presents today with concern of abdominal pain and weakness. She reports the pain started on Saturday and, at that time, she presented to her PCP's office. The history is a little bit confusing as the patient's timeline is somewhat unclear, but it appears that she saw the nurse practitioner in Dr. Duffy's office within the past 10 days, mainly because she was having symptoms of abdominal pain and vaginal discharge. At that time, she said samples were taken and sent off, that she was not put on any medications. On 06/18/17, she was seen by Dr. Bianchi, who ordered a CT scan, with concern for abdominal pain. The CT scan showed diverticulosis. The patient states that she was started on azithromycin for the infection, but it appears that she may have been started on azithromycin for a different concern and this is also somewhat unclear. At some point, there were peritoneal dialysate samples drawn, which showed concern for vaginal victoriano and enterococcus growth. I am uncertain where those records are, but the dialysis nurse will be sending those to the hospital for our records. Ms. Charles was scheduled to have a Gastrografin enema this coming week to better evaluate for fistula concern, given the growth of the bacteria in her dialysis fluid. In regards to the patient's symptoms, she describes her pain as intestinal pain and states that it started worsening this past Saturday on 06/18/17 and it is worst in the right lower quadrant, although she is diffusely tender all over. She feels as though someone punched her in her stomach. It is aggravated with movement, and she has found no relieving factors. She states that she has had peritoneal dialysis for 13 years and this is the worst she has felt. Her most recent dialysis treatment last evening was painful as she was drawing off fluid. In regards to her catheter, she states that she usually does let the catheter hang freely and sometimes it does hit her groin area and thighs. She also endorses decreased PO intake and decreased appetite. She had diarrhea x 4 days but that has since resolved. In regards to the weakness, the patient reports that on Saturday, she tripped as she was coming through the doorway, fell and landed on her right leg. Since then, she has been using a cane and has difficulty bearing weight through the leg as that is very painful. She states that she frequently trips and falls. Here in the ER, she is afebrile. She does have white count of 13,000 as well as an elevated CRP given her multiple complaints. Hospital Medicine was consulted for admission. PAST MEDICAL HISTORY: Includes; 1. End-stage renal disease, on peritoneal dialysis. 2. Hypertension. 3. History of polycystic kidney disease. 4. Cardiomyopathy. 5. Systolic heart failure with EF of 35% to 40%. 6. Depression. 7. Coronary artery disease, status post CO. 8. History of CVA. 9. History of inflammatory arthropathy. HOME MEDICATIONS: Which do still need to be fully confirmed include: 1. Nifedipine ER 30 mg b.i.d. 2. Plaquenil 400 mg daily. 3. Acetaminophen 500 mg q.6 hours p.r.n. 4. Prednisone 5 mg daily. 5. Zofran 4 mg q.6 hours p.r.n. 6. Lindsay 10/325, 1 tab q. 6 hours p.r.n. 7. Coreg 25 mg b.i.d. 8. Lorazepam 2 mg q.6 hours p.r.n. 9. Sertraline 50 mg daily. This list is obtained from [facility]. ALLERGIES: Include ADHESIVE TAPE and CODEINE. FAMILY HISTORY: The patient had a father who of an CO and also had a history of polycystic kidney disease. Her mother has a history of hypertension and Alzheimer disease. SOCIAL HISTORY: She lives with her son. She denies any tobacco, alcohol, or illicit drug use. Her son, Alex Charles, is her surrogate decision maker in the event of an emergency. REVIEW OF SYSTEMS: As per HPI. All pertinent positives and negatives are included in the HPI. PHYSICAL EXAMINATION VITAL SIGNS: Temperature 98.7, heart rate 81, respiratory rate 20, blood pressure 120/77, O2 saturation is 100% on 2 L nasal cannula. HEENT: Head is atraumatic, normocephalic. Pupils are equal, round, reactive to light. Extraocular movements are intact. Oral mucosa appears somewhat dry. There is no oropharyngeal erythema or exudate. NECK: Supple. No lymphadenopathy appreciated. The patient has full range of motion to the neck and no tenderness with palpation. LUNGS: Diminished, but clear to auscultation and has good aeration throughout all lung curry. CARDIAC: S1, S2 heart sounds. Regular rate and rhythm. The patient has a soft systolic murmur, approximately grade 2 to 3 that is best heard along the left upper sternal border. She has 3+ pitting edema to the bilateral lower extremities. ABDOMEN: Diffusely tender with palpation. Bowel sounds are normoactive. There is a peritoneal dialysis catheter in the right lower quadrant that has some mild erythema around the insertion site, but no purulent drainage noted. No evidence of leaking or excoriated skin around the insertion site. MUSCULOSKELETAL: There is no clubbing or cyanosis. The patient is noted to have full range of motion, though there is some pain with palpation to the right knee. NEURO: Speech is clear. The patient is able to move all 4 extremities. Sensation is intact to light touch. There are no focal deficits. SKIN: The patient has scattered ecchymosis and most notably to the right pelaez as well as to the upper extremities and to the forehead. PSYCH: She is alert, oriented x3. Affect is appropriate. DIAGNOSTIC STUDIES/LAB DATA: CBC: WBC 13.2, hemoglobin 10.0, hematocrit 31, platelet count 263,000. CMP: Sodium 130, potassium 4.7, chloride 90, carbon dioxide 27, BUN 57, creatinine 6.88, glucose 104. Lactic acid 1.3. Calcium 8.5. AST 11, ALT 9. Troponin 0.10. CRP 205. Albumin 2.1. Chest x-ray shows chronic pleural changes with no pneumonia, likely bilateral rib fractures. ASSESSMENT AND PLAN: Ms. Charles is a 56-year-old female who presents today with concern for diffuse abdominal pain and weakness. She will be admitted to the medicine floor. Plan is as follows: 1. Abdominal pain, suspect peritonitis. The patient will be started on Zosyn given her elevated white count, diffuse abdominal pain, and CRP. I will attempt to redraw the peritoneal dialysis fluid here in order to see what is growing. The patient has already had blood cultures here in the ER. We will consult ID on Saturday when available. Additionally, the patient was being evaluated with concern for fistula between the vagina and large intestine, and, in speaking with Dr. Bianchi, it appears that the recommended test for this was a Gastrografin enema, which has been ordered. In the interim, we will continue antibiotics and monitor the patient's status. 2. Weakness. It appears to be less of a weakness and more acute injury to the right lower extremity, which has not been evaluated yet. I ordered x-rays of the right lower extremity to see if there are any acute fractures given her fall and inability to fully weight bear through the extremity. Assuming no acute injury, PT and OT will be ordered for the patient to help evaluate for any subacute rehab needs. 3. Leukocytosis. Suspect that this is secondary to peritonitis, perhaps chronic prednisone use. We will continue to trend and follow. 4. Anemia of chronic disease. The patient has H and H that appears within her baseline and is likely secondary to her end-stage renal disease. We will continue to follow this as well. 5. Hyponatremia. Suspect that this may be slightly secondary to dehydration and fluid overload. We will encourage p.o. intake and continue to monitor. 6. Elevated troponin. The patient is denying any chest pain or cardiac complaints. This appears to be within her new baseline as of 2017. I will trend the troponins. 7. History of end-stage renal disease, on peritoneal dialysis. Continue peritoneal dialysis. Dialysis team has been contacted in the ER and is planning to come in to dialyze the patient today. 8. History of hypertension, currently normotensive. Continue home medication regimen of carvedilol and nifedipine. 9. History of systolic heart failure. The patient does have lower extremity edema, which is, per the patient, mildly worse from her baseline. We will continue her on daily weights and I's and O's. Continue to monitor. We could consider JR hose if she will tolerate. We will encourage the patient to elevate her extremities and continue to follow her weight trends. 10. History of depression. Continue Zoloft. 11. History of coronary artery disease. Continue nifedipine and Coreg. 12. History of inflammatory arthropathy. Continue prednisone and Plaquenil. 13. FEN. The patient is ordered a renal diet. 14. DVT prophylaxis. Subcu heparin. 15. Code status. The patient is a full code. 16. Disposition. Admit to inpatient with anticipation of likelihood of stay greater than 2 days. TIME SPENT: Time spent on this admission was approximately 65 minutes, more than half that time was spent [id number] with the patient obtaining history and physical, performing the physical examination, and reviewing the plan of care. Plan of care was also reviewed with my attending, Dr. Núñez, who is in agreement. TOMASA IBARRA, ALMOND SORTER [id number]/CPS #: [id number] EL
--- NOTE | 2017-06-22 22:59 | ED ---
Donato Morales Julia, scribed for Shanna Birch MD on 06/22/17 at 1355 . Abdominal Pain/Female - HPI Summary HPI Summary: This patient is a 56 year old F BIBA to [facility] with a chief complaint of worsening abdominal cramps since 06/11/17. The patient rates the pain 2/10 in severity. Symptoms aggravated by movement. Symptoms alleviated by nothing. Patient reports SOB. Patient denies fever, chills, headache, ear ache, sore through, bloody stool. Patient states current pain is not typical abdominal pain. Patient recently fell and hit RLE. Patient is anuric. Patient recently fell and bruised her RLE. - History of Current Complaint Chief Complaint: EDAbdPain Stated Complaint: ABD PAIN Time Seen by Provider: 06/22/17 12:10 Hx Obtained From: Patient Onset/Duration: Lasting Weeks Pain Intensity: 2 Pain Scale Used: 0-10 Numeric Aggravating Factor(s): Movement Alleviating Factor(s): Nothing Associated Signs and Symptoms: Positive: Other: - SOB Allergies/Adverse Reactions: Allergies Allergy/AdvReac Type Severity Reaction Status Date / Time Adhesive Tape Allergy Hives Verified 06/19/17 12:14 Codeine Allergy GI Upset Verified 06/19/17 12:14 Home Medications: Home Medications Hydroxychloroquine TAB* [Plaquenil TAB*] 400 mg PO DAILY 06/22/17 [History Confirmed 06/22/17] LORazepam TAB(*) [Ativan 1 MG TAB (*)] 2 mg PO Q6HR PRN 06/22/17 [History Confirmed 06/22/17] Ondansetron TAB* [Zofran 4 MG Tab*] 4 mg PO Q6H PRN 06/22/17 [History Confirmed 06/22/17] Prednisone [Prednisone] 5 mg PO DAILY 06/22/17 [History Confirmed 06/22/17] PMH/Surg Hx/FS Hx/Imm Hx Endocrine/Hematology History: Reports: Hx Anemia - gets epogen shot Denies: Hx Diabetes, Hx Systemic Lupus Erythematosus, Hx Thyroid Disease Cardiovascular History: Reports: Hx Aneurysm, Hx Congestive Heart Failure, Hx Coronary Artery Disease, Hx Hypercholesterolemia, Hx Hypertension, Other Cardiovascular Problems/Disorders - CAD, MD Denies: Hx Pacemaker/ICD, Hx Peripheral Vascular Disease Respiratory History: Reports: Hx Pleural Effusion Denies: Hx Chronic Obstructive Pulmonary Disease (COPD) - PT DENIES, Hx Pneumonia GI History: Reports: Hx Diverticulosis, Hx Gastroesophageal Reflux Disease, Hx Ulcer History: Reports: Hx Chronic Renal Failure, Hx Dialysis, Hx Kidney Infection , Hx Renal Disease, Other Problems/Disorders - polycystic kidney Denies: Hx Kidney Stones Musculoskeletal History: Reports: Hx Rheumatoid Arthritis, Hx Back Problems, Other Musculoskeletal History - LEFT HIP FX Denies: Hx Arthritis, Hx Osteoporosis Sensory History: Reports: Hx Contacts or Glasses - reading glasses only Denies: Hx Cataracts, Hx Glaucoma, Hx Deafness, Hx Hearing Aid, Hx Hearing Problem Opthamlomology History: Reports: Hx Contacts or Glasses - reading glasses only Denies: Hx Cataracts, Hx Glaucoma Neurological History: Reports: Hx CVA, Other Neuro Impairments/Disorders - brain aneurism Psychiatric History: Reports: Hx Anxiety, Hx Depression Denies: Hx Panic Disorder, Hx Post Traumatic Stress Disorder, Other Psychiatric Issues/Disorders - Cancer History Hx Chemotherapy: No - Surgical History Surgery Procedure, Year, and Place: dialysis port x2 Hx Anesthesia Reactions: No - Immunization History Date of Tetanus Vaccine: Unknown Infectious Disease History: No Infectious Disease History: Denies: Traveled Outside the [place] in Last 30 Days - Family History Known Family History: Negative: Cardiac Disease, Hypertension, Diabetes - Social History Alcohol Use: None Hx Substance Use: No Substance Use Type: Reports: None Hx Tobacco Use: Yes Smoking Status (MU): Former Smoker Type: Cigarettes Amount Used/How Often: not much, only while in college Have You Smoked in the Last Year: No Review of Systems Negative: Fever, Chills Negative: Sore Throat, Ear Ache Positive: Shortness Of Breath Gastrointestinal: Negative - bloody stool Positive: Abdominal Pain Positive: other - anuric Positive: Bruising - RLE Negative: Headache All Other Systems Reviewed And Are Negative: No Physical Exam - Summary Physical Exam Summary: Appearance: Alert, conversive, nontoxic appearing, weak/frail Skin: Warm, dry, no mottling, no rashes, no contusions HEENT: EOMI, PERRL, dry mucous membranes Neck: No masses on the neck, supple Respiratory: Clear to auscultation, breath sounds present, no rales, no rhonchi , no wheezes Cardiovascular: RRR, pulses are symmetrical in both lower and upper extremities , systolic ejection murmur 3/6 Abdomen: Soft, abdomen is tender, bowel sounds present Bowel Sounds: Present Musculoskeletal: No CVA tenderness, no obvious deformity, moving all extremities in a grossly normal manner, RLE ecchymosis Neurological: A&Ox3, CN II-XII Intact, moving all extremities symmetrically Psychiatric: Normal affect and mood Triage Information Reviewed: Yes Vital Signs On Initial Exam: Initial Vitals Temp Pulse Resp BP Pulse Ox 98.7 F 80 20 135/87 94 06/22/17 12:09 06/22/17 12:09 06/22/17 12:09 06/22/17 12:09 06/22/17 12:09 Vital Signs Reviewed: Yes - Ernie Coma Scale Coma Scale Total: 15 Diagnostics - Vital Signs Vital Signs Temp Pulse Resp BP Pulse Ox 06/22/17 12:16 80 17 94 06/22/17 12:14 135/87 06/22/17 12:09 98.7 F 80 20 135/87 94 - Laboratory Lab Results: Lab Results 06/22/17 06/22/17 06/22/17 Range/Units 13:44 13:44 13:44 WBC 13.2 H (3.5-10.8) 10^3/ul RBC 3.47 L (4.0-5.4) 10^6/ul Hgb 10.0 L (12.0-16.0) g/dl Hct 31 L (35-47) % MCV 89 (80-97) fL MCH 29 (27-31) pg MCHC 32 (31-36) g/dl RDW 14 (10.5-15) % Plt Count 263 (150-450) 10^3/ul MPV 7 L (7.4-10.4) um3 Neut % (Auto) 90.4 H (38-83) % Lymph % (Auto) 4.8 L (25-47) % Lincoln % (Auto) 4.4 (1-9) % Eos % (Auto) 0.1 (0-6) % Baso % (Auto) 0.3 (0-2) % Absolute Neuts (auto) 11.9 H (1.5-7.7) 10^3/ul Absolute Lymphs (auto) 0.6 L (1.0-4.8) 10^3/ul Absolute Monos (auto) 0.6 (0-0.8) 10^3/ul Absolute Eos (auto) 0 (0-0.6) 10^3/ul Absolute Basos (auto) 0 (0-0.2) 10^3/ul Absolute Nucleated RBC 0 10^3/ul Nucleated RBC % 0 Sodium 130 L (133-145) mmol/L Potassium 4.7 (3.5-5.0) mmol/L Chloride 90 L (101-111) mmol/L Carbon Dioxide 27 (22-32) mmol/L Anion Gap 13 H (2-11) mmol/L BUN 57 H (6-24) mg/dL Creatinine 6.88 H (0.51-0.95) mg/dL Est GFR ( Amer) 8.0 (>60) Est GFR (Non-Af Amer) 6.2 (>60) BUN/Creatinine Ratio 8.3 (8-20) Glucose 104 H (70-100) mg/dL Lactic Acid 1.3 (0.5-2.0) mmol/L Calcium 8.5 L (8.6-10.3) mg/dL Total Bilirubin 0.20 (0.2-1.0) mg/dL AST 11 L (13-39) U/L ALT 9 (7-52) U/L Alkaline Phosphatase 99 (34-104) U/L Troponin I 0.10 H* (<0.04) ng/mL C-Reactive Protein 205.25 H (< 5.00) mg/L Total Protein 5.3 L (6.4-8.9) g/dL Albumin 2.1 L (3.2-5.2) g/dL Globulin 3.2 (2-4) g/dL Albumin/Globulin Ratio 0.7 L (1-3) Lipase < 10 L (11.0-82.0) U/L 06/22/17 Range/Units 16:55 WBC (3.5-10.8) 10^3/ul RBC (4.0-5.4) 10^6/ul Hgb (12.0-16.0) g/dl Hct (35-47) % MCV (80-97) fL MCH (27-31) pg MCHC (31-36) g/dl RDW (10.5-15) % Plt Count (150-450) 10^3/ul MPV (7.4-10.4) um3 Neut % (Auto) (38-83) % Lymph % (Auto) (25-47) % Lincoln % (Auto) (1-9) % Eos % (Auto) (0-6) % Baso % (Auto) (0-2) % Absolute Neuts (auto) (1.5-7.7) 10^3/ul Absolute Lymphs (auto) (1.0-4.8) 10^3/ul Absolute Monos (auto) (0-0.8) 10^3/ul Absolute Eos (auto) (0-0.6) 10^3/ul Absolute Basos (auto) (0-0.2) 10^3/ul Absolute Nucleated RBC 10^3/ul Nucleated RBC % Sodium (133-145) mmol/L Potassium (3.5-5.0) mmol/L Chloride (101-111) mmol/L Carbon Dioxide (22-32) mmol/L Anion Gap (2-11) mmol/L BUN (6-24) mg/dL Creatinine (0.51-0.95) mg/dL Est GFR ( Amer) (>60) Est GFR (Non-Af Amer) (>60) BUN/Creatinine Ratio (8-20) Glucose (70-100) mg/dL Lactic Acid (0.5-2.0) mmol/L Calcium (8.6-10.3) mg/dL Total Bilirubin (0.2-1.0) mg/dL AST (13-39) U/L ALT (7-52) U/L Alkaline Phosphatase (34-104) U/L Troponin I 0.11 H* (<0.04) ng/mL C-Reactive Protein (< 5.00) mg/L Total Protein (6.4-8.9) g/dL Albumin (3.2-5.2) g/dL Globulin (2-4) g/dL Albumin/Globulin Ratio (1-3) Lipase (11.0-82.0) U/L Result Diagrams: 06/22/17 13:44 06/22/17 13:44 Lab Statement: Any lab studies that have been ordered have been reviewed, and results considered in the medical decision making process. - Radiology CXR Radiology Interpretation Completed By: Radiologist - CHRONIC PLEURAL CHANGES WITH NO PNEUMONIA. LIKELY BILATERAL RIB FRACTURES. ED Physician has reviewed this report. - EKG 13:39 Cardiac Rate: NL EKG Rhythm: Sinus Rhythm - at 82 BPM EKG Interpretation: normal QRS and QTC, inverted T waves in in lateral leads aVL Abdominal Pain Fem Course/Dx - Diagnoses Provider Diagnoses: Peritonitis, ESRD (end stage renal disease) - Provider Notifications Discussed Care Of Patient With: Jet Bianchi Time Discussed With Above Provider: 14:55 Instructed by Provider To: Other - Dr. Bianchi reports patient grew orgnaisms consistent with vaginal victoriano. Concern for tucking of peritoneal catheter due to catheter colonization. 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 Dr. Bianchi will attempt to have culture results faxed from [facility] in [place]. Patient has history of multiple falls at home, is at risk, and requires admission. Patient is due for next dialysis on 06/24/17. Patient is on vancomycin at dialysis. Peritoneal nurse can be called in for peritoneal dialysis. Discharge - Discharge Plan Condition: Stable Disposition: ADMITTED TO [facility] The documentation as recorded by the Donato woods Julia accurately reflects the service I personally performed and the decisions made by , Shanna Birch MD.
[2017-06-22] MEDS: HYDROcodone/ACETAMIN 5-325 MG* 1 TAB PO PRN (23:22)
[2017-06-23] MEDS: LORazepam TAB(*) 1 MG PO PRN ×3 (00:57→23:46)
[2017-06-23 05:09] LABS: ABS Basophils 0 10^3/ul (0-0.2); ABS Eosinophils 0 10^3/ul (0-0.6); ABS Lymphocytes 0.9 10^3/ul (1.0-4.8); ABS Monocytes 0.5 10^3/ul (0-0.8); ABS Neutrophils 7.1 10^3/ul (1.5-7.7); ABS Nucleated RBC 0 10^3/ul; Eosinophil % 0.5 % (0-6); Hematocrit 27 % (35-47); Lymphocyte % 10.1 % (25-47); Mean Corpuscular HGB Conc 33 g/dl (31-36); Mean Corpuscular Hemoglobin 29 pg (27-31); Mean Corpuscular Volume 89 fL (80-97); Mean Platelet Volume 7 um3 (7.4-10.4); Nucleated Red Blood Cells % 0; Platelet Count 221 10^3/ul (150-450); Red Blood Count 3.06 10^6/ul (4.0-5.4); Red Cell Distribution Width 14 % (10.5-15); White Blood Count 8.6 10^3/ul (3.5-10.8)
[2017-06-23] MEDS: Heparin VIAL(*) 5000 UNITS/ML VIAL (FIVE THOUSAND) SUBCUT SCH ×3 (05:35→21:11)
[2017-06-23] MEDS: Sertraline* 50 MG TAB PO SCH (08:45)
[2017-06-23] MEDS: HYDROcodone/ACETAMIN 5-325 MG* 1 TAB PO PRN ×3 (08:45→21:37)
[2017-06-23] MEDS: ZOSYN 3.375 GM Q12H per EXTENDED INFUSION IVPB SCH ×4 (08:46→21:12)
[2017-06-23] MEDS: predniSONE TAB* 5 MG PO SCH (08:46)
[2017-06-23] MEDS: Hydroxychloroquine TAB* 200 MG PO SCH (08:53)
[2017-06-23] MEDS: Carvedilol TAB* 25 MG PO SCH ×2 (09:01→21:10)
[2017-06-23] MEDS: NIFEdipine ER TAB* 30 MG PO SCH ×2 (09:01→21:10)
--- NOTE | 2017-06-23 10:37 | PN ---
Subjective Date of Service: 06/23/17 Interval History: Patient seen and evaluated at bedside. She reports feeling somewhat improved today, especially with abdominal pain. Denies fever/chills, CP, SOB, n/v. She had peritoneal dialysis last night and states that it went well and did not have pain with session. No other acute concerns expressed. She has been able to get out of bed with assistance. We discussed the incident findings of avascular necrosis seen on imaging and her chronic prednisone. The patient would like to further discuss prednisone use with Dr. Coronel and continue outpatient evaluation, including MRI and ortho follow up. Family History: Unchanged from Admission Social History: Unchanged from Admission Past Medical History: Unchanged from Admission Objective Active Medications: Acetaminophen (Tylenol Tab*) 650 mg PO Q4H PRN PRN Reason: FEVER/PAIN Hydrocodone Bitart/Acetaminophen ([place] 5-325 Tab*) 2 tab PO Q6H PRN PRN Reason: PAIN Last Admin: 06/23/17 08:45 Dose: 2 tab Carvedilol (Coreg Tab*) 25 mg PO BID [facility] Last Admin: 06/23/17 09:01 Dose: Not Given Heparin Sodium (Porcine) (Heparin Vial(*)) 5,000 units SUBCUT Q8HR [facility] Last Admin: 06/23/17 05:35 Dose: 5,000 units Hydromorphone HCl (Dilaudid Injic*) 0.5 mg IV SLOW PU Q4H PRN PRN Reason: PAIN - MODERATE TO SEVERE Hydroxychloroquine Sulfate (Plaquenil Tab*) 400 mg PO DAILY [facility] Last Admin: 06/23/17 08:53 Dose: 400 mg Piperacillin Sod/Tazobactam (Sod 3.375 gm/ Sodium Chloride) 100 mls @ 25 mls/ hr IVPB Q12H [facility] Last Admin: 06/23/17 08:46 Dose: 25 mls/hr Lorazepam (Ativan Tab(*)) 2 mg PO Q6HR PRN PRN Reason: ANXIETY Last Admin: 06/23/17 00:57 Dose: 2 mg Nifedipine (Procardia Xl Tab*) 30 mg PO BID [facility] Last Admin: 06/23/17 09:01 Dose: Not Given Ondansetron HCl (Zofran Inj*) 4 mg IV Q6H PRN PRN Reason: NAUSEA/VOMITING Last Admin: 06/22/17 22:39 Dose: 4 mg Pharmacy Consult (Zosyn Per Pharmacy*) 1 note FOLLOW UP .ZOSYN PER PHARMACY [facility] Prednisone (Deltasone Tab*) 5 mg PO DAILY [facility] Last Admin: 06/23/17 08:46 Dose: 5 mg Sertraline HCl (Zoloft*) 50 mg PO DAILY [facility] Last Admin: 06/23/17 08:45 Dose: 50 mg Vital Signs - 8 hr 06/23/17 06/23/17 06/23/17 02:48 03:56 07:37 Temperature 97.4 F 97.7 F Pulse Rate 81 77 Respiratory 20 20 16 Rate Blood Pressure 98/60 98/54 (mmHg) O2 Sat by Pulse 100 100 Oximetry 06/23/17 06/23/17 06/23/17 07:45 08:45 10:36 Temperature Pulse Rate Respiratory 16 18 18 Rate Blood Pressure (mmHg) O2 Sat by Pulse Oximetry Oxygen Devices in Use Now: Nasal Cannula Appearance: Chronically ill appearing, appears older than stated age, lying in bed, NAD Eyes: No Scleral Icterus, PERRLA Ears/Nose/Mouth/Throat: Clear Oropharnyx, Mucous Membranes Moist Neck: NL Appearance and Movements; NL JVP Respiratory: Symmetrical Chest Expansion and Respiratory Effort, Clear to Auscultation Cardiovascular: RRR - grade 2-3/6 systolic murmur, - - BLE pitting edema Abdominal: - - mild tenderness with deep palpation, diffuse discomfort. BS x 4, PD cath c/d/i Extremities: No Clubbing, Cyanosis Skin: - - scattered ecchymosis to BUE and BLE Neurological: Alert and Oriented x 3, NL Muscle Strength and Tone Lines/Tubes/Other Access: Clean, Dry and Intact Peripheral IV Nutrition: Taking PO's Result Diagrams: 06/23/17 04:49 06/23/17 04:49 Additional Lab and Data: Lab Results 06/22/17 06/22/17 06/22/17 Range/Units 13:44 13:44 13:44 WBC 13.2 H (3.5-10.8) 10^3/ul RBC 3.47 L (4.0-5.4) 10^6/ul Hgb 10.0 L (12.0-16.0) g/dl Hct 31 L (35-47) % MCV 89 (80-97) fL MCH 29 (27-31) pg MCHC 32 (31-36) g/dl RDW 14 (10.5-15) % Plt Count 263 (150-450) 10^3/ul MPV 7 L (7.4-10.4) um3 Neut % (Auto) 90.4 H (38-83) % Lymph % (Auto) 4.8 L (25-47) % [place] % (Auto) 4.4 (1-9) % Eos % (Auto) 0.1 (0-6) % Baso % (Auto) 0.3 (0-2) % Absolute Neuts (auto) 11.9 H (1.5-7.7) 10^3/ul Absolute Lymphs (auto) 0.6 L (1.0-4.8) 10^3/ul Absolute Monos (auto) 0.6 (0-0.8) 10^3/ul Absolute Eos (auto) 0 (0-0.6) 10^3/ul Absolute Basos (auto) 0 (0-0.2) 10^3/ul Absolute Nucleated RBC 0 10^3/ul Nucleated RBC % 0 Sodium 130 L (133-145) mmol/L Potassium 4.7 (3.5-5.0) mmol/L Chloride 90 L (101-111) mmol/L Carbon Dioxide 27 (22-32) mmol/L Anion Gap 13 H (2-11) mmol/L BUN 57 H (6-24) mg/dL Creatinine 6.88 H (0.51-0.95) mg/dL Est GFR ( Amer) 8.0 (>60) Est GFR (Non-Af Amer) 6.2 (>60) BUN/Creatinine Ratio 8.3 (8-20) Glucose 104 H (70-100) mg/dL Lactic Acid 1.3 (0.5-2.0) mmol/L Calcium 8.5 L (8.6-10.3) mg/dL Total Bilirubin 0.20 (0.2-1.0) mg/dL AST 11 L (13-39) U/L ALT 9 (7-52) U/L Alkaline Phosphatase 99 (34-104) U/L Troponin I 0.10 H* (<0.04) ng/mL C-Reactive Protein 205.25 H (< 5.00) mg/L Total Protein 5.3 L (6.4-8.9) g/dL Albumin 2.1 L (3.2-5.2) g/dL Globulin 3.2 (2-4) g/dL Albumin/Globulin Ratio 0.7 L (1-3) Lipase < 10 L (11.0-82.0) U/L 06/22/17 Range/Units 16:55 WBC (3.5-10.8) 10^3/ul RBC (4.0-5.4) 10^6/ul Hgb (12.0-16.0) g/dl Hct (35-47) % MCV (80-97) fL MCH (27-31) pg MCHC (31-36) g/dl RDW (10.5-15) % Plt Count (150-450) 10^3/ul MPV (7.4-10.4) um3 Neut % (Auto) (38-83) % Lymph % (Auto) (25-47) % [place] % (Auto) (1-9) % Eos % (Auto) (0-6) % Baso % (Auto) (0-2) % Absolute Neuts (auto) (1.5-7.7) 10^3/ul Absolute Lymphs (auto) (1.0-4.8) 10^3/ul Absolute Monos (auto) (0-0.8) 10^3/ul Absolute Eos (auto) (0-0.6) 10^3/ul Absolute Basos (auto) (0-0.2) 10^3/ul Absolute Nucleated RBC 10^3/ul Nucleated RBC % Sodium (133-145) mmol/L Potassium (3.5-5.0) mmol/L Chloride (101-111) mmol/L Carbon Dioxide (22-32) mmol/L Anion Gap (2-11) mmol/L BUN (6-24) mg/dL Creatinine (0.51-0.95) mg/dL Est GFR ( Amer) (>60) Est GFR (Non-Af Amer) (>60) BUN/Creatinine Ratio (8-20) Glucose (70-100) mg/dL Lactic Acid (0.5-2.0) mmol/L Calcium (8.6-10.3) mg/dL Total Bilirubin (0.2-1.0) mg/dL AST (13-39) U/L ALT (7-52) U/L Alkaline Phosphatase (34-104) U/L Troponin I 0.11 H* (<0.04) ng/mL C-Reactive Protein (< 5.00) mg/L Total Protein (6.4-8.9) g/dL Albumin (3.2-5.2) g/dL Globulin (2-4) g/dL Albumin/Globulin Ratio (1-3) Lipase (11.0-82.0) U/L Microbiology and Other Data: Microbiology 06/22/17 20:45 Gram Stain - Final Peritoneal Dialysis Effluent 06/22/17 18:45 Nasal Screen MRSA (PCR)([facility]ANNAH) - Final Nasal Mrsa Negative Assess/Plan/Problems-Billing Assessment: Ms. Charles is a 56 yo female with a PMH significant for ESRD on peritoneal dialysis, PKD, HTN, systolic HF, CAD, and inflammatory arthropathy who presented with abd pain and weakness secondary to suspected peritonitis. - Patient Problems (1) Peritonitis Code(s): K65.9 - PERITONITIS, UNSPECIFIED Comment: With diffuse abd pain, now improving Continue Zosyn, will request ID consult tomorrow Patient reportedly had vaginal victoriano growing in previous culture of peritoneal fluid Was previously on azithromycin but with worsening abd pain Blood cx and repeat peritoneal culture pending Plan for gastograffin enema to evaluate for vaginal-intestinal fistula (vs. colonization of catheter with vaginal victoriano) (2) Sepsis Comment: Patient met sepsis criteria within 1st 12 hours of admission by SOFA with SBP< 100, MAP<70, RR>22. Patient met sepsis criteria within 1st 12 hours of admission by SIRS with leukocytosis, tachypnea, hypotension. Source appears to be peritonitis. Cultures pending, continue Zosyn. (3) Leukocytosis Code(s): D72.829 - ELEVATED WHITE BLOOD CELL COUNT, UNSPECIFIED Comment: Resolved Appears to be secondary to acute infection (4) Weakness Code(s): R53.1 - WEAKNESS Comment: By patient report; she reportedly tripped and fell on her right side earlier this week. No acute fractures or injuries noted on XR; incidental finding of concern for avascular necrosis noted on scans. Patient advised to follow up with PCP and ortho as outpatient; will need to discuss discontinuation of prednisone therapy. PT evaluation to assess strength and gait. (5) ESRD (end stage renal disease) Code(s): N18.6 - END STAGE RENAL DISEASE Comment: Hx of polycystic kidney disease Continue peritoneal dialysis. (6) Anemia Code(s): D64.9 - ANEMIA, UNSPECIFIED Comment: Suspect anemia of chronic disease Normocytic, normochromic HH mildly lower than previous labs but still within baseline since February Check stool occult, iron studies (7) Hyponatremia Code(s): E87.1 - HYPO-OSMOLALITY AND HYPONATREMIA Comment: Improving May have been dilutional from fluid overload Continue to intermittently follow (8) Systolic CHF Code(s): I50.20 - UNSPECIFIED SYSTOLIC (CONGESTIVE) HEART FAILURE Comment: Does not appear to be in acute exacerbation BLE edema mildly improved Continue I/O, daily weights Continue home carvedilol. (9) COPD (chronic obstructive pulmonary disease) Code(s): J44.9 - CHRONIC OBSTRUCTIVE PULMONARY DISEASE, UNSPECIFIED Comment: Stable Not in acute exacerbation, no wheezing on exam Continue prn nebulizers (10) HTN (hypertension) Code(s): I10 - ESSENTIAL (PRIMARY) HYPERTENSION Comment: Normotensive to hypotensive Continue home carvedilol and nifedipine with hold parameters. (11) History of depression Code(s): Z86.59 - PERSONAL HISTORY OF OTHER MENTAL AND BEHAVIORAL DISORDERS Comment: Continue sertraline. (12) Hx of coronary artery disease Code(s): Z86.79 - PERSONAL HISTORY OF OTHER DISEASES OF THE CIRCULATORY SYSTEM Comment: Continue beta-samira. Not on ASA/statin, should follow up with PCP. (13) Inflammatory arthropathy Code(s): M19.90 - UNSPECIFIED OSTEOARTHRITIS, UNSPECIFIED SITE Comment: Continue outpatient f/u with rheumatology. Continue home prednisone and hydroxychlorquine. Patient advised to follow up with rheumatology re: continued prednisone with suspected avascular necrosis. Will need outpatient MRI and ortho follow-up, per orthopedic surgery group. (14) Peritoneal dialysis catheter in place Code(s): Z99.2 - DEPENDENCE ON RENAL DIALYSIS (15) DVT prophylaxis SNOMED Code(s): 130499458 Comment: Heparin SQ (16) Full code status Code(s): Z78.9 - OTHER SPECIFIED HEALTH STATUS Status and Disposition: Inpatient admission. Anticipate LOS>2 days for complex medical history and multiple medial issues.
[2017-06-23] MEDS: Ondansetron INJ* 2 MG/ML VIAL IV PRN ×2 (13:24→21:38)
[2017-06-23] MEDS ORDERED: Albuterol 2.5 MG/3 ML NEB.SOL* (0.083%) INH PRN (15:23)
[2017-06-23] MEDS ORDERED: Sevelamer TAB* 800 MG PO PRN (16:11)
--- NOTE | 2017-06-23 17:53 | PN ---
Hospitalist Progress Note Date of Service: 06/23/17 Per the patient, she only wants to take 2 tabs of Renvela with meals and snacks secondary to poor PO intake.
[2017-06-23] MEDS: Sevelamer TAB* 800 MG PO SCH (19:38)
[2017-06-23] MEDS: Ferrous Sulfate TAB* 325 MG PO SCH (21:12)
[2017-06-24] MEDS: Heparin VIAL(*) 5000 UNITS/ML VIAL (FIVE THOUSAND) SUBCUT SCH ×3 (05:19→20:59)
[2017-06-24] MEDS: Calcitriol CAP* 0.25 MCG PO SCH (08:53)
[2017-06-24] MEDS: Carvedilol TAB* 25 MG PO SCH ×2 (08:53→20:57)
[2017-06-24] MEDS: HYDROcodone/ACETAMIN 5-325 MG* 1 TAB PO PRN ×2 (08:53→20:57)
[2017-06-24] MEDS: Ferrous Sulfate TAB* 325 MG PO SCH ×2 (08:54→20:58)
[2017-06-24] MEDS: NIFEdipine ER TAB* 30 MG PO SCH ×2 (08:54→20:58)
[2017-06-24] MEDS: predniSONE TAB* 5 MG PO SCH (08:54)
[2017-06-24] MEDS: Hydroxychloroquine TAB* 200 MG PO SCH (08:54)
[2017-06-24] MEDS: ZOSYN 3.375 GM Q12H per EXTENDED INFUSION IVPB SCH ×4 (08:54→20:58)
[2017-06-24] MEDS: Sevelamer TAB* 800 MG PO SCH ×3 (08:54→17:23)
[2017-06-24] MEDS: Sertraline* 50 MG TAB PO SCH (08:54)
[2017-06-24] MEDS ORDERED: Vancomycin(*) 1,000 MG VIAL IVPB ONE (12:00)
[2017-06-24] MEDS ORDERED: Heparin DIALYSIS ONLY(*) 1,000 UNITS/ML VIAL DIALYSIS ONE ×2 (12:00→14:00)
[2017-06-24] MEDS ORDERED: Mupirocin 2% OINT* TUBE TOPICAL PRN (12:59)
--- NOTE | 2017-06-24 16:55 | CONS ---
CONSULTATION REPORT: DATE OF CONSULT: 06/24/17 REQUESTING PHYSICIAN: Dr. Bianchi. CONSULTING SERVICE: Infectious Disease. REASON FOR CONSULT: Question peritoneal dialysis catheter infection. IMPRESSION: 1. Two weeks of right-sided abdominal pain, loose stools, bloating without change in dialysate, it has not been cloudy. She has a little bit of pain with infusion or instillation, which elicits a bowel movement. She has also had loose stools after eating every meal for the last 2 weeks. No fevers or chills , but she has had anorexia. An outpatient peritoneal dialysis culture grew enterococcus and prevotella. A sample taken here showed 5 white cells and a culture has no growth today. She had not been on antibiotics at the time it was taken. I think peritoneal dialysis catheter infection less likely though still in the differential diagnosis. Other considerations include gallbladder disease given right upper quadrant pain on exam and distended gallbladder on CT. 2. Diarrhea as above. Infectious colitis is a consideration though no particular inflammation seen on the CT scan. 3. End-stage renal disease, on peritoneal dialysis. 4. Polycystic kidney disease. 5. Inflammatory arthropathy, on immunosuppressive regimen. RECOMMENDATION: Ultrasound of the gallbladder, which I ordered. Stool cultures already been sent. We will obtain the outpatient culture results, which were sent. HISTORY OF PRESENT ILLNESS: This is a 56-year-old woman with end-stage renal disease, on peritoneal dialysis, admitted with right-sided abdominal pain. She had been well until about 2 weeks ago when she developed multiple soft or loose stools a day, mostly after eating, then noticed onset of abdominal pain mostly right upper and lower quadrants without fevers or chills. She had noticed her appetite was decreased. During that time, has lost a couple of pounds. She also had a little bit of yellowish vaginal discharge, was seen by [facility] at [facility]. Some samples were taken, apparently unrevealing. She has not noticed that the discharge continued and nothing looked like stool or peritoneal dialysis fluid passed through the vagina. She was seen at dialysis center where she had a culture taken on 06/14/17 that grew Enterococcus faecalis and Prevotella pola. She was on Keflex for a couple of days and stopped because it was not deemed to be improving her symptoms or effective against these organisms. She came to the hospital on 06/22/17 because of worsening abdominal cramps. She was still having loose stools. No blood in the stool or black tarry stools, no mucus. Appetite has been off. No fevers or chills since she has been here. She had a CT scan as an outpatient on 06/19/17 that showed polycystic kidney disease, bilateral avascular necrosis, a little bit of free air. She has not noticed any problems with instillation of dialysate. There is no redness or discharge around the PD catheter. Her lab tests here showed white count of 13,000, CRP of 200 down to 150 the next day. Mild elevation in troponin. PAST MEDICAL HISTORY: 1. End-stage renal disease, on peritoneal dialysis. 2. Polycystic kidney disease. 3. Inflammatory arthropathy. 4. Hypertension. 5. Cardiomyopathy, ejection fraction 35% to 40%. 6. Depression. 7. Coronary artery disease, history of VT. 8. History of stroke. MEDICATIONS: 1. Tylenol. 2. Calcitriol. 3. Carvedilol. 4. Ferrous sulfate. 5. Heparin subcutaneous injection. 6. Vicodin as needed. 7. Ativan as needed. 8. Nifedipine. 9. Zosyn 3.375 g every 12 hours. 10. Prednisone 5 mg a day. 11. Sertraline. 12. Sevelamer. ALLERGIES: ADHESIVE TAPE and CODEINE. FAMILY HISTORY: No recurrent infections. SOCIAL HISTORY: She lives with her son. She has no travel. No sick contacts. REVIEW OF SYSTEMS: A 14-point review of systems was negative except as noted above. PHYSICAL EXAM: Vital Signs: Temperature 36.5, heart rate 75, respiratory rate 20, blood pressure 115/61, oxygen saturation 100% on 2.5 L. General: She is awake, not in distress. Neurologic: She is oriented x3. Follows all commands. Moves all extremities. HEENT: There is no conjunctival hemorrhage. Oropharynx is without lesions. Neck: Neck is supple. Lymph Nodes: There is no inguinal, axillary, or epitrochlear lymphadenopathy. Heart has regular rate and rhythm without murmurs, rubs, or gallops. Lungs are clear to auscultation bilaterally. Abdomen: Decreased bowel sounds throughout. Abdomen is soft. There is right upper quadrant tenderness to palpation. She is not significantly distended. There is no rebound tenderness. The right-sided peritoneal dialysis catheter has no surrounding erythema. Musculoskeletal: No spine tenderness to palpation. LABORATORY DATA: White blood cell count 8.6, hemoglobin 9, platelets 221. Creatinine 6.1, potassium 3.5. CRP 150. Please see impressions and recommendations as outlined above. Thanks for asking me to see Ms. Charles in consultation. [id number]/[facility] #: [id number] MTDD
[2017-06-24] MEDS: Ondansetron INJ* 2 MG/ML VIAL IV PRN (17:23)
--- NOTE | 2017-06-24 18:40 | PN ---
Subjective Date of Service: 06/24/17 Interval History: Patient seen and examined. States she is still having diarrhea and when she ate last night she vomited. She feels a little better than yesterday, but still feels cold and general malaise. No SOB, no chest pain, no current n/v. Afebrile. Family History: Unchanged from Admission Social History: Unchanged from Admission Past Medical History: Unchanged from Admission Objective Active Medications: Acetaminophen (Tylenol Tab*) 650 mg PO Q4H PRN PRN Reason: FEVER/PAIN Hydrocodone Bitart/Acetaminophen ([place] 5-325 Tab*) 2 tab PO Q6H PRN PRN Reason: PAIN Last Admin: 06/24/17 08:53 Dose: 2 tab Albuterol (Ventolin 2.5 Mg/3 Ml Neb.Francy*) 2.5 mg INH Q4H PRN PRN Reason: SOB/WHEEZING Calcitriol (Rocaltrol Cap*) 0.25 mcg PO DAILY [facility] Last Admin: 06/24/17 08:53 Dose: 0.25 mcg Carvedilol (Coreg Tab*) 25 mg PO BID [facility] Last Admin: 06/24/17 08:53 Dose: 25 mg Ferrous Sulfate (Ferrous Sulfate Tab*) 325 mg PO BID [facility] Last Admin: 06/24/17 08:54 Dose: 325 mg Heparin Sodium (Porcine) (Heparin Vial(*)) 5,000 units SUBCUT Q8HR [facility] Last Admin: 06/24/17 13:20 Dose: 5,000 units Hydromorphone HCl (Dilaudid Injic*) 0.5 mg IV SLOW PU Q4H PRN PRN Reason: PAIN - MODERATE TO SEVERE Hydroxychloroquine Sulfate (Plaquenil Tab*) 400 mg PO DAILY [facility] Last Admin: 06/24/17 08:54 Dose: 400 mg Piperacillin Sod/Tazobactam (Sod 3.375 gm/ Sodium Chloride) 100 mls @ 25 mls/ hr IVPB Q12H [facility] Last Admin: 06/24/17 08:54 Dose: 25 mls/hr Lorazepam (Ativan Tab(*)) 2 mg PO Q6HR PRN PRN Reason: ANXIETY Last Admin: 06/23/17 23:46 Dose: 2 mg Mupirocin (Bactroban 2 % Oint*) 1 applic TOPICAL DAILY PRN PRN Reason: PD EXIT SITE Nifedipine (Procardia Xl Tab*) 30 mg PO BID [facility] Last Admin: 06/24/17 08:54 Dose: 30 mg Ondansetron HCl (Zofran Inj*) 4 mg IV Q8H PRN PRN Reason: NAUSEA/VOMITING Last Admin: 06/24/17 17:23 Dose: 4 mg Pharmacy Consult (Zosyn Per Pharmacy*) 1 note FOLLOW UP .ZOSYN PER PHARMACY [facility] Prednisone (Deltasone Tab*) 5 mg PO DAILY [facility] Last Admin: 06/24/17 08:54 Dose: 5 mg Prochlorperazine Edisylate (Compazine Inj*) 2.5 mg IV Q6H PRN PRN Reason: NAUSEA/VOMITING Sertraline HCl (Zoloft*) 50 mg PO DAILY [facility] Last Admin: 06/24/17 08:54 Dose: 50 mg Sevelamer Carbonate (Renvela Tab*) 1,600 mg PO TID WITH MEALS [facility] Last Admin: 06/24/17 17:23 Dose: Not Given Sevelamer Carbonate (Renvela Tab*) 1,600 mg PO .SNACKS PRN PRN Reason: SNACKS Vital Signs - 8 hr 06/24/17 06/24/17 06/24/17 11:19 11:21 15:31 Temperature 97.7 F 97.4 F Pulse Rate 73 52 Respiratory 18 20 20 Rate Blood Pressure 115/61 128/69 (mmHg) O2 Sat by Pulse 100 96 Oximetry Oxygen Devices in Use Now: None Appearance: fatigued, alert Eyes: No Scleral Icterus, PERRLA Ears/Nose/Mouth/Throat: Mucous Membranes Moist Neck: Trachea Midline Respiratory: Symmetrical Chest Expansion and Respiratory Effort, Clear to Auscultation Cardiovascular: NL Sounds; No Murmurs; No JVD Abdominal: - - tender RUQ superior to PD cath Extremities: No Edema, No Clubbing, Cyanosis Neurological: Alert and Oriented x 3, NL Sensation Nutrition: Taking PO's Result Diagrams: 06/23/17 04:49 06/23/17 04:49 Additional Lab and Data: Lab Results 06/22/17 06/22/17 06/22/17 Range/Units 13:44 13:44 13:44 WBC 13.2 H (3.5-10.8) 10^3/ul RBC 3.47 L (4.0-5.4) 10^6/ul Hgb 10.0 L (12.0-16.0) g/dl Hct 31 L (35-47) % MCV 89 (80-97) fL MCH 29 (27-31) pg MCHC 32 (31-36) g/dl RDW 14 (10.5-15) % Plt Count 263 (150-450) 10^3/ul MPV 7 L (7.4-10.4) um3 Neut % (Auto) 90.4 H (38-83) % Lymph % (Auto) 4.8 L (25-47) % [place] % (Auto) 4.4 (1-9) % Eos % (Auto) 0.1 (0-6) % Baso % (Auto) 0.3 (0-2) % Absolute Neuts (auto) 11.9 H (1.5-7.7) 10^3/ul Absolute Lymphs (auto) 0.6 L (1.0-4.8) 10^3/ul Absolute Monos (auto) 0.6 (0-0.8) 10^3/ul Absolute Eos (auto) 0 (0-0.6) 10^3/ul Absolute Basos (auto) 0 (0-0.2) 10^3/ul Absolute Nucleated RBC 0 10^3/ul Nucleated RBC % 0 Sodium 130 L (133-145) mmol/L Potassium 4.7 (3.5-5.0) mmol/L Chloride 90 L (101-111) mmol/L Carbon Dioxide 27 (22-32) mmol/L Anion Gap 13 H (2-11) mmol/L BUN 57 H (6-24) mg/dL Creatinine 6.88 H (0.51-0.95) mg/dL Est GFR ( Amer) 8.0 (>60) Est GFR (Non-Af Amer) 6.2 (>60) BUN/Creatinine Ratio 8.3 (8-20) Glucose 104 H (70-100) mg/dL Lactic Acid 1.3 (0.5-2.0) mmol/L Calcium 8.5 L (8.6-10.3) mg/dL Total Bilirubin 0.20 (0.2-1.0) mg/dL AST 11 L (13-39) U/L ALT 9 (7-52) U/L Alkaline Phosphatase 99 (34-104) U/L Troponin I 0.10 H* (<0.04) ng/mL C-Reactive Protein 205.25 H (< 5.00) mg/L Total Protein 5.3 L (6.4-8.9) g/dL Albumin 2.1 L (3.2-5.2) g/dL Globulin 3.2 (2-4) g/dL Albumin/Globulin Ratio 0.7 L (1-3) Lipase < 10 L (11.0-82.0) U/L 06/22/17 Range/Units 16:55 WBC (3.5-10.8) 10^3/ul RBC (4.0-5.4) 10^6/ul Hgb (12.0-16.0) g/dl Hct (35-47) % MCV (80-97) fL MCH (27-31) pg MCHC (31-36) g/dl RDW (10.5-15) % Plt Count (150-450) 10^3/ul MPV (7.4-10.4) um3 Neut % (Auto) (38-83) % Lymph % (Auto) (25-47) % [place] % (Auto) (1-9) % Eos % (Auto) (0-6) % Baso % (Auto) (0-2) % Absolute Neuts (auto) (1.5-7.7) 10^3/ul Absolute Lymphs (auto) (1.0-4.8) 10^3/ul Absolute Monos (auto) (0-0.8) 10^3/ul Absolute Eos (auto) (0-0.6) 10^3/ul Absolute Basos (auto) (0-0.2) 10^3/ul Absolute Nucleated RBC 10^3/ul Nucleated RBC % Sodium (133-145) mmol/L Potassium (3.5-5.0) mmol/L Chloride (101-111) mmol/L Carbon Dioxide (22-32) mmol/L Anion Gap (2-11) mmol/L BUN (6-24) mg/dL Creatinine (0.51-0.95) mg/dL Est GFR ( Amer) (>60) Est GFR (Non-Af Amer) (>60) BUN/Creatinine Ratio (8-20) Glucose (70-100) mg/dL Lactic Acid (0.5-2.0) mmol/L Calcium (8.6-10.3) mg/dL Total Bilirubin (0.2-1.0) mg/dL AST (13-39) U/L ALT (7-52) U/L Alkaline Phosphatase (34-104) U/L Troponin I 0.11 H* (<0.04) ng/mL C-Reactive Protein (< 5.00) mg/L Total Protein (6.4-8.9) g/dL Albumin (3.2-5.2) g/dL Globulin (2-4) g/dL Albumin/Globulin Ratio (1-3) Lipase (11.0-82.0) U/L Microbiology and Other Data: Microbiology 06/22/17 20:45 Gram Stain - Final Peritoneal Dialysis Effluent 06/22/17 18:45 Nasal Screen MRSA (PCR)(HANNAH) - Final Nasal Mrsa Negative Assess/Plan/Problems-Billing Assessment: This is a 56 yo female with a PMH significant for ESRD on peritoneal dialysis, PKD, HTN, systolic HF, CAD, and inflammatory arthropathy that presents with abdominal pain, diarrhea and weakness secondary to likely peritonitis. - Patient Problems (1) Inflammatory arthropathy Code(s): M19.90 - UNSPECIFIED OSTEOARTHRITIS, UNSPECIFIED SITE SNOMED Code(s) : 8551830 Comment: - Given avascular necrosis on xray, would recommend stopping prednisone, needs outpatient follow up with rheumatology. - Needs MRI and orthopedic eval for hips as an outpatient - Continue home prednisone and hydroxychlorquine for now (2) Peritonitis Code(s): K65.9 - PERITONITIS, UNSPECIFIED SNOMED Code(s): 89402151 Comment: - Abodminal pain somewhat improved, continues with nausea and diarrhea however - Continue Zosyn, follow stool cultures, appreciate recs from ID - Pending US gallbladder - Follow cultures from Dr. Bianchi and inpatient; reportedly had vaginal victoriano growing in previous culture of peritoneal fluid - Less likely vaginal-intestinal fistula (vs. colonization of catheter with vaginal victoriano) based on presentation (3) Sepsis Comment: - Symptoms resolved, BP stable (4) Systolic CHF Code(s): I50.20 - UNSPECIFIED SYSTOLIC (CONGESTIVE) HEART FAILURE SNOMED Code( s): 871958352 Comment: - At baseline - Continue coreg (5) Chronic pain Current Visit: No Status: Acute Code(s): G89.29 - OTHER CHRONIC PAIN SNOMED Code(s): 90741424 Comment: Continue home pain medications (6) Full code status Code(s): Z78.9 - OTHER SPECIFIED HEALTH STATUS SNOMED Code(s): 443626468 (7) ESRD (end stage renal disease) Code(s): N18.6 - END STAGE RENAL DISEASE SNOMED Code(s): 25026534 Comment: - Hx of polycystic kidney disease - Continue peritoneal dialysis (8) History of depression Code(s): Z86.59 - PERSONAL HISTORY OF OTHER MENTAL AND BEHAVIORAL DISORDERS SNOMED Code(s): 313076431 Comment: - Continue sertraline. (9) Hx of coronary artery disease Code(s): Z86.79 - PERSONAL HISTORY OF OTHER DISEASES OF THE CIRCULATORY SYSTEM SNOMED Code(s): 575143670 Comment: - Continue beta-samira. - Question daily ASA or statin? Status and Disposition: Remain inpatient for continued care and multiple complexities. Counseling and/or Coordination of Care Minutes: coordinated with patient and staff and Dr. Benavides
[2017-06-24] MEDS: LORazepam TAB(*) 1 MG PO PRN (19:54)
[2017-06-25] MEDS: HYDROmorphone INJ* 1 MG/ML CARPUJECT SYRINGE IV SLOW PU PRN ×3 (03:16→21:43)
[2017-06-25] MEDS: HYDROcodone/ACETAMIN 5-325 MG* 1 TAB PO PRN ×3 (04:58→19:54)
[2017-06-25] MEDS: Heparin VIAL(*) 5000 UNITS/ML VIAL (FIVE THOUSAND) SUBCUT SCH ×3 (05:00→21:46)
[2017-06-25] MEDS: predniSONE TAB* 5 MG PO SCH (09:10)
[2017-06-25] MEDS: Acetaminophen TAB* 325 MG PO PRN (09:11)
[2017-06-25] MEDS: LORazepam TAB(*) 1 MG PO PRN ×2 (09:11→19:54)
[2017-06-25] MEDS: NIFEdipine ER TAB* 30 MG PO SCH ×2 (09:12→21:46)
[2017-06-25] MEDS: Hydroxychloroquine TAB* 200 MG PO SCH (09:12)
[2017-06-25] MEDS: Carvedilol TAB* 25 MG PO SCH ×2 (09:12→21:46)
[2017-06-25] MEDS: Calcitriol CAP* 0.25 MCG PO SCH (09:12)
[2017-06-25] MEDS: Ferrous Sulfate TAB* 325 MG PO SCH ×2 (09:12→21:46)
[2017-06-25] MEDS: Sertraline* 50 MG TAB PO SCH (09:12)
[2017-06-25] MEDS: ZOSYN 3.375 GM Q12H per EXTENDED INFUSION IVPB SCH ×4 (09:26→21:48)
[2017-06-25] MEDS: Sevelamer TAB* 800 MG PO SCH ×3 (09:27→17:45)
--- NOTE | 2017-06-25 09:51 | RAD ---
HISTORY: Right upper quadrant pain COMPARISONS: CT dated June 19, 2017 TECHNIQUE: Multiple transverse and longitudinal ultrasound images were obtained of the right upper quadrant of the abdomen using grayscale and color Doppler imaging. FINDINGS: LIVER: The liver is normal in shape, size, contour, and echogenicity. There is a cyst of the right lobe measuring 1.8 cm.. There is normal hepatopedal flow of the portal vein on Doppler imaging. BILIARY TREE: There is no intrahepatic or extrahepatic biliary dilatation. The common duct measures 0.7 cm. GALLBLADDER: The gallbladder is distended. There is no cholelithiasis. The technologist reports a positive sonographic Hancock sign. PANCREAS: The head of the pancreas is unremarkable. The tail of the pancreas is not well visualized secondary to overlying bowel gas. RIGHT KIDNEY: The kidney parenchyma is essentially replaced by innumerable renal parenchymal cysts consistent with polycystic kidney disease. There is no hydronephrosis or nephrolithiasis. The right kidney measures 13.9 x 7.2 x 6.9 cm. AORTA AND IVC: The aorta and IVC are unremarkable. FLUID: There is perihepatic ascites OTHER FINDINGS: None. IMPRESSION: 1. THE CYBER SECURITY MANAGER REPORTS A POSITIVE SONOGRAPHIC HANCOCK'S SIGN. THERE IS NO CHOLELITHIASIS OR GALLBLADDER WALL THICKENING. THIS IS INDETERMINATE FOR THE SONOGRAPHIC FEATURES OF ACUTE CHOLECYSTITIS. 2. SMALL AMOUNT OF ASCITES. 3. POLYCYSTIC KIDNEY DISEASE
--- NOTE | 2017-06-25 15:03 | PN ---
Progress Note - Progress Note Date of Service: 06/25/17 SOAP: Subjective: CC: RUQ pain HPI: 56 year old woman with ESRD/PD and RUQ PD catheter with 2-3 weeks Right sided abd pain and post prandial diarrhea. No fever or diarrhea. No change in dialysate until last night when it was painful to drain it and some blood present. Appetite ok. Objective: Vital Signs Temp 36.8 C 06/25/17 11:43 Pulse 76 06/25/17 11:43 Resp 16 06/25/17 13:27 BP 116/77 06/25/17 11:43 Pulse Ox 97 06/25/17 11:43 Intake & Output 06/24/17 06/25/17 06/25/17 18:59 06:59 18:59 Intake Total 346 125 0 Output Total 0 Balance 346 125 0 Weight 112 lb 14.4 oz 113 lb Intake: IV Fluids 15 125 ABX - PIPERACILLIN 15 100 NS (0.9%) 25 IVPB 111 ABX - PIPERACILLIN 111 Oral 220 0 0 Output: Urine 0 Other: Estimated Void Medium # Bowel Movements 2 Estimated Stool Amount Small Medium Small # Voids 0 Gen:awake, no distress HEENT:PERRL, MMM Heart:RRR no murmur Lungs:CTA BL Abd:+BS RUQ tenderness, RUQ catheter no surrounding erythema Skin: no rash Microbiology 06/22/17 13:44 Aerobic Blood Culture - Preliminary Blood Venous No Growth Day 3 Anaerobic Blood Culture - Preliminary No Growth Day 3 06/22/17 13:55 Aerobic Blood Culture - Preliminary Blood Venous No Growth Day 3 Anaerobic Blood Culture - Preliminary No Growth Day 3 06/22/17 20:45 Gram Stain - Final Peritoneal Dialysis Effluent Body Fluid Culture - Preliminary No Growth Day 3 06/22/17 20:45 Sterile Body Fluid Culture - Preliminary Peritoneal Fluid No Growth Day 2 Sterile Body Fluid Culture - Preliminary No Growth Day 2 GB US: enlarged GB, no stones or wall thickening Assessment: 1. RUQ pain; diff dx GB disease or PD catheter infection though fluid had very few WBC's and fluid has been clear; outpt culture grew Enterococcus and Prevotella; here culture negative (without recent abx). 2. ESRD/PD 3. PCKD 4. elevated CRP, improving Plan: 1. continue zosyn, recheck CRP 06/26 (ordered); surgical consultation. Will discuss with Dr Bianchi.
--- NOTE | 2017-06-25 18:50 | PN ---
Subjective Date of Service: 06/25/17 Interval History: Patient seen and examined. Feeling somewhat better. Wants to have her PD exchange tonight, which was interrupted and cancelled last night 2/2 pain. States diarrhea is improving, no n/v, denies fevers, denies headache, no chills. Still with abdominal pain, but tolerating meals now. Family History: Unchanged from Admission Social History: Unchanged from Admission Past Medical History: Unchanged from Admission Objective Active Medications: Acetaminophen (Tylenol Tab*) 650 mg PO Q4H PRN PRN Reason: FEVER/PAIN Last Admin: 06/25/17 09:11 Dose: 650 mg Hydrocodone Bitart/Acetaminophen ([place] 5-325 Tab*) 2 tab PO Q6H PRN PRN Reason: PAIN Last Admin: 06/25/17 13:27 Dose: 2 tab Albuterol (Ventolin 2.5 Mg/3 Ml Neb.Francy*) 2.5 mg INH Q4H PRN PRN Reason: SOB/WHEEZING Calcitriol (Rocaltrol Cap*) 0.25 mcg PO DAILY [facility] Last Admin: 06/25/17 09:12 Dose: 0.25 mcg Carvedilol (Coreg Tab*) 25 mg PO BID [facility] Last Admin: 06/25/17 09:12 Dose: 25 mg Ferrous Sulfate (Ferrous Sulfate Tab*) 325 mg PO BID [facility] Last Admin: 06/25/17 09:12 Dose: 325 mg Heparin Sodium (Porcine) (Heparin Vial(*)) 5,000 units SUBCUT Q8HR [facility] Last Admin: 06/25/17 13:27 Dose: 5,000 units Hydromorphone HCl (Dilaudid Injic*) 0.5 mg IV SLOW PU Q4H PRN PRN Reason: PAIN - MODERATE TO SEVERE Last Admin: 06/25/17 09:12 Dose: 0.5 mg Hydroxychloroquine Sulfate (Plaquenil Tab*) 400 mg PO DAILY [facility] Last Admin: 06/25/17 09:12 Dose: 400 mg Piperacillin Sod/Tazobactam (Sod 3.375 gm/ Sodium Chloride) 100 mls @ 25 mls/ hr IVPB Q12H [facility] Last Admin: 06/25/17 09:26 Dose: 25 mls/hr Lorazepam (Ativan Tab(*)) 2 mg PO Q6HR PRN PRN Reason: ANXIETY Last Admin: 06/25/17 09:11 Dose: 2 mg Mupirocin (Bactroban 2 % Oint*) 1 applic TOPICAL DAILY PRN PRN Reason: PD EXIT SITE Nifedipine (Procardia Xl Tab*) 30 mg PO BID [facility] Last Admin: 06/25/17 09:12 Dose: 30 mg Ondansetron HCl (Zofran Inj*) 4 mg IV Q8H PRN PRN Reason: NAUSEA/VOMITING Last Admin: 06/24/17 17:23 Dose: 4 mg Pharmacy Consult (Zosyn Per Pharmacy*) 1 note FOLLOW UP .ZOSYN PER PHARMACY [facility] Prednisone (Deltasone Tab*) 5 mg PO DAILY [facility] Last Admin: 06/25/17 09:10 Dose: 5 mg Prochlorperazine Edisylate (Compazine Inj*) 2.5 mg IV Q6H PRN PRN Reason: NAUSEA/VOMITING Sertraline HCl (Zoloft*) 50 mg PO DAILY [facility] Last Admin: 06/25/17 09:12 Dose: 50 mg Sevelamer Carbonate (Renvela Tab*) 1,600 mg PO TID WITH MEALS [facility] Last Admin: 06/25/17 17:45 Dose: 1,600 mg Sevelamer Carbonate (Renvela Tab*) 1,600 mg PO .SNACKS PRN PRN Reason: SNACKS Vital Signs - 8 hr 06/25/17 06/25/17 06/25/17 11:31 11:32 11:34 Temperature 98.2 F Pulse Rate 76 Respiratory 18 18 18 Rate Blood Pressure 116/77 (mmHg) O2 Sat by Pulse 93 Oximetry 06/25/17 06/25/17 06/25/17 11:43 13:27 15:29 Temperature 98.2 F 98.1 F Pulse Rate 76 75 Respiratory 18 16 18 Rate Blood Pressure 116/77 123/72 (mmHg) O2 Sat by Pulse 97 95 Oximetry Oxygen Devices in Use Now: None Appearance: Alert, NAD Eyes: No Scleral Icterus, PERRLA Ears/Nose/Mouth/Throat: Mucous Membranes Moist Neck: NL Appearance and Movements; NL JVP, Trachea Midline Respiratory: Symmetrical Chest Expansion and Respiratory Effort, Clear to Auscultation Cardiovascular: NL Sounds; No Murmurs; No JVD, RRR Abdominal: - - tender RUQ Extremities: No Edema, No Clubbing, Cyanosis Skin: No Rash or Ulcers Neurological: Alert and Oriented x 3, NL Muscle Strength and Tone Nutrition: Taking PO's Result Diagrams: 06/23/17 04:49 06/23/17 04:49 Additional Lab and Data: Lab Results 06/22/17 06/22/17 06/22/17 Range/Units 13:44 13:44 13:44 WBC 13.2 H (3.5-10.8) 10^3/ul RBC 3.47 L (4.0-5.4) 10^6/ul Hgb 10.0 L (12.0-16.0) g/dl Hct 31 L (35-47) % MCV 89 (80-97) fL MCH 29 (27-31) pg MCHC 32 (31-36) g/dl RDW 14 (10.5-15) % Plt Count 263 (150-450) 10^3/ul MPV 7 L (7.4-10.4) um3 Neut % (Auto) 90.4 H (38-83) % Lymph % (Auto) 4.8 L (25-47) % [place] % (Auto) 4.4 (1-9) % Eos % (Auto) 0.1 (0-6) % Baso % (Auto) 0.3 (0-2) % Absolute Neuts (auto) 11.9 H (1.5-7.7) 10^3/ul Absolute Lymphs (auto) 0.6 L (1.0-4.8) 10^3/ul Absolute Monos (auto) 0.6 (0-0.8) 10^3/ul Absolute Eos (auto) 0 (0-0.6) 10^3/ul Absolute Basos (auto) 0 (0-0.2) 10^3/ul Absolute Nucleated RBC 0 10^3/ul Nucleated RBC % 0 Sodium 130 L (133-145) mmol/L Potassium 4.7 (3.5-5.0) mmol/L Chloride 90 L (101-111) mmol/L Carbon Dioxide 27 (22-32) mmol/L Anion Gap 13 H (2-11) mmol/L BUN 57 H (6-24) mg/dL Creatinine 6.88 H (0.51-0.95) mg/dL Est GFR ( Amer) 8.0 (>60) Est GFR (Non-Af Amer) 6.2 (>60) BUN/Creatinine Ratio 8.3 (8-20) Glucose 104 H (70-100) mg/dL Lactic Acid 1.3 (0.5-2.0) mmol/L Calcium 8.5 L (8.6-10.3) mg/dL Total Bilirubin 0.20 (0.2-1.0) mg/dL AST 11 L (13-39) U/L ALT 9 (7-52) U/L Alkaline Phosphatase 99 (34-104) U/L Troponin I 0.10 H* (<0.04) ng/mL C-Reactive Protein 205.25 H (< 5.00) mg/L Total Protein 5.3 L (6.4-8.9) g/dL Albumin 2.1 L (3.2-5.2) g/dL Globulin 3.2 (2-4) g/dL Albumin/Globulin Ratio 0.7 L (1-3) Lipase < 10 L (11.0-82.0) U/L 06/22/17 Range/Units 16:55 WBC (3.5-10.8) 10^3/ul RBC (4.0-5.4) 10^6/ul Hgb (12.0-16.0) g/dl Hct (35-47) % MCV (80-97) fL MCH (27-31) pg MCHC (31-36) g/dl RDW (10.5-15) % Plt Count (150-450) 10^3/ul MPV (7.4-10.4) um3 Neut % (Auto) (38-83) % Lymph % (Auto) (25-47) % [place] % (Auto) (1-9) % Eos % (Auto) (0-6) % Baso % (Auto) (0-2) % Absolute Neuts (auto) (1.5-7.7) 10^3/ul Absolute Lymphs (auto) (1.0-4.8) 10^3/ul Absolute Monos (auto) (0-0.8) 10^3/ul Absolute Eos (auto) (0-0.6) 10^3/ul Absolute Basos (auto) (0-0.2) 10^3/ul Absolute Nucleated RBC 10^3/ul Nucleated RBC % Sodium (133-145) mmol/L Potassium (3.5-5.0) mmol/L Chloride (101-111) mmol/L Carbon Dioxide (22-32) mmol/L Anion Gap (2-11) mmol/L BUN (6-24) mg/dL Creatinine (0.51-0.95) mg/dL Est GFR ( Amer) (>60) Est GFR (Non-Af Amer) (>60) BUN/Creatinine Ratio (8-20) Glucose (70-100) mg/dL Lactic Acid (0.5-2.0) mmol/L Calcium (8.6-10.3) mg/dL Total Bilirubin (0.2-1.0) mg/dL AST (13-39) U/L ALT (7-52) U/L Alkaline Phosphatase (34-104) U/L Troponin I 0.11 H* (<0.04) ng/mL C-Reactive Protein (< 5.00) mg/L Total Protein (6.4-8.9) g/dL Albumin (3.2-5.2) g/dL Globulin (2-4) g/dL Albumin/Globulin Ratio (1-3) Lipase (11.0-82.0) U/L Microbiology and Other Data: Microbiology 06/22/17 20:45 Gram Stain - Final Peritoneal Dialysis Effluent 06/22/17 18:45 Nasal Screen MRSA (PCR)([facility]) - Final Nasal Mrsa Negative Assess/Plan/Problems-Billing Assessment: This is a 56 yo female with a PMH significant for ESRD on peritoneal dialysis, PKD, HTN, systolic HF, CAD, and inflammatory arthropathy that presents with abdominal pain, diarrhea and weakness secondary to peritonitis. - Patient Problems (1) Inflammatory arthropathy Code(s): M19.90 - UNSPECIFIED OSTEOARTHRITIS, UNSPECIFIED SITE SNOMED Code(s) : 5247437 Comment: - Given avascular necrosis on xray, would recommend stopping prednisone at some point, needs outpatient follow up with rheumatology. - Needs MRI and orthopedic eval for hips as an outpatient - Continue home prednisone and hydroxychlorquine for now (2) Peritonitis Code(s): K65.9 - PERITONITIS, UNSPECIFIED SNOMED Code(s): 11857410 Comment: - Abodminal pain with further improvement, diarrhea persistent - Continue Zosyn, follow stool cultures - US gallbladder with no acute cholycystitis - Per radiology, gastrografin enema will likely NOT yield a finding for fistula , also discussed with Dr. Ospina from surgery, CT scan with oral contrast would be preferred. (3) Sepsis Comment: - Symptoms resolved, BP stable (4) Systolic CHF Code(s): I50.20 - UNSPECIFIED SYSTOLIC (CONGESTIVE) HEART FAILURE SNOMED Code( s): 179507173 Comment: - At baseline - Continue coreg (5) Chronic pain Current Visit: No Status: Acute Code(s): G89.29 - OTHER CHRONIC PAIN SNOMED Code(s): 52204428 Comment: Continue home pain medications (6) Full code status Code(s): Z78.9 - OTHER SPECIFIED HEALTH STATUS SNOMED Code(s): 997200152 (7) ESRD (end stage renal disease) Code(s): N18.6 - END STAGE RENAL DISEASE SNOMED Code(s): 61022348 Comment: - Hx of polycystic kidney disease, s/p nephrectomy - Continue peritoneal dialysis tonight if tolerated (8) History of depression Code(s): Z86.59 - PERSONAL HISTORY OF OTHER MENTAL AND BEHAVIORAL DISORDERS SNOMED Code(s): 834186008 Comment: - Continue sertraline. (9) Hx of coronary artery disease Code(s): Z86.79 - PERSONAL HISTORY OF OTHER DISEASES OF THE CIRCULATORY SYSTEM SNOMED Code(s): 502006397 Comment: - Continue beta-samira. - Question daily ASA or statin? Status and Disposition: Re-evaluate need for CT scan tomorrow and need for surgical consult based on CT results. Remain inpatient for IV atbx therapy and try PD exchange again tonight. Counseling and/or Coordination of Care Minutes: coordinated with radiology, Dr. Ocampo, Dr. Bianchi and Dr. Ospina
[2017-06-25] MEDS: Ondansetron INJ* 2 MG/ML VIAL IV PRN (21:43)
[2017-06-26] MEDS: HYDROcodone/ACETAMIN 5-325 MG* 1 TAB PO PRN ×3 (03:10→15:33)
[2017-06-26] MEDS: LORazepam TAB(*) 1 MG PO PRN ×4 (03:16→22:29)
[2017-06-26] MEDS: Heparin VIAL(*) 5000 UNITS/ML VIAL (FIVE THOUSAND) SUBCUT SCH ×3 (06:28→22:21)
[2017-06-26 07:28] LABS: ABS Basophils 0 10^3/ul (0-0.2); ABS Eosinophils 0.1 10^3/ul (0-0.6); ABS Monocytes 0.5 10^3/ul (0-0.8); ABS Neutrophils 6.2 10^3/ul (1.5-7.7); ABS Nucleated RBC 0 10^3/ul; Eosinophil % 0.8 % (0-6); Hematocrit 28 % (35-47); Hemoglobin 9.2 g/dl (12.0-16.0); Lymphocyte % 12.6 % (25-47); Mean Corpuscular HGB Conc 32 g/dl (31-36); Mean Corpuscular Hemoglobin 29 pg (27-31); Mean Corpuscular Volume 90 fL (80-97); Mean Platelet Volume 7 um3 (7.4-10.4); Nucleated Red Blood Cells % 0.1; Platelet Count 223 10^3/ul (150-450); Red Blood Count 3.16 10^6/ul (4.0-5.4); Red Cell Distribution Width 15 % (10.5-15); White Blood Count 7.9 10^3/ul (3.5-10.8)
[2017-06-26 07:44] LABS: EGFR Non-African American 7.2 (>60)
[2017-06-26] MEDS: predniSONE TAB* 5 MG PO SCH (08:48)
[2017-06-26] MEDS: Calcitriol CAP* 0.25 MCG PO SCH (08:49)
[2017-06-26] MEDS: Sertraline* 50 MG TAB PO SCH (08:49)
[2017-06-26] MEDS: Hydroxychloroquine TAB* 200 MG PO SCH (08:49)
[2017-06-26] MEDS: Carvedilol TAB* 25 MG PO SCH ×2 (08:50→20:58)
[2017-06-26] MEDS: NIFEdipine ER TAB* 30 MG PO SCH ×2 (08:51→20:58)
[2017-06-26] MEDS: Ferrous Sulfate TAB* 325 MG PO SCH ×2 (08:51→20:58)
[2017-06-26] MEDS: ZOSYN 3.375 GM Q12H per EXTENDED INFUSION IVPB SCH ×4 (08:54→22:21)
[2017-06-26] MEDS: Sevelamer TAB* 800 MG PO SCH ×3 (09:03→17:19)
--- NOTE | 2017-06-26 16:02 | PN ---
Subjective Date of Service: 06/26/17 Interval History: Patient seen and examined. Was able to tolerate PD exchange last night. Still had blood in effluent and still had pain but had some improvement. Still with diarrhea, no SOB, no chest pain, no n/v. Tolerating PO last 24 hours. No fevers or chills. Family History: Unchanged from Admission Social History: Unchanged from Admission Past Medical History: Unchanged from Admission Objective Active Medications: Acetaminophen (Tylenol Tab*) 650 mg PO Q4H PRN PRN Reason: FEVER/PAIN Last Admin: 06/25/17 09:11 Dose: 650 mg Hydrocodone Bitart/Acetaminophen ([employer] 5-325 Tab*) 2 tab PO Q6H PRN PRN Reason: PAIN Last Admin: 06/26/17 15:33 Dose: 2 tab Albuterol (Ventolin 2.5 Mg/3 Ml Neb.Francy*) 2.5 mg INH Q4H PRN PRN Reason: SOB/WHEEZING Calcitriol (Rocaltrol Cap*) 0.25 mcg PO DAILY [facility] Last Admin: 06/26/17 08:49 Dose: 0.25 mcg Carvedilol (Coreg Tab*) 25 mg PO BID [facility] Last Admin: 06/26/17 08:50 Dose: 25 mg Ferrous Sulfate (Ferrous Sulfate Tab*) 325 mg PO BID [facility] Last Admin: 06/26/17 08:51 Dose: 325 mg Heparin Sodium (Porcine) (Heparin Vial(*)) 5,000 units SUBCUT Q8HR [facility] Last Admin: 06/26/17 15:34 Dose: 5,000 units Hydromorphone HCl (Dilaudid Injic*) 0.5 mg IV SLOW PU Q4H PRN PRN Reason: PAIN - MODERATE TO SEVERE Last Admin: 06/25/17 21:43 Dose: 0.5 mg Hydroxychloroquine Sulfate (Plaquenil Tab*) 400 mg PO DAILY [facility] Last Admin: 06/26/17 08:49 Dose: 400 mg Piperacillin Sod/Tazobactam (Sod 3.375 gm/ Sodium Chloride) 100 mls @ 25 mls/ hr IVPB Q12H [facility] Last Admin: 06/26/17 08:54 Dose: 25 mls/hr Lorazepam (Ativan Tab(*)) 2 mg PO Q6HR PRN PRN Reason: ANXIETY Last Admin: 06/26/17 15:34 Dose: 2 mg Mupirocin (Bactroban 2 % Oint*) 1 applic TOPICAL DAILY PRN PRN Reason: PD EXIT SITE Nifedipine (Procardia Xl Tab*) 30 mg PO BID [facility] Last Admin: 06/26/17 08:51 Dose: 30 mg Ondansetron HCl (Zofran Inj*) 4 mg IV Q8H PRN PRN Reason: NAUSEA/VOMITING Last Admin: 06/25/17 21:43 Dose: 4 mg Pharmacy Consult (Zosyn Per Pharmacy*) 1 note FOLLOW UP .ZOSYN PER PHARMACY [facility] Prednisone (Deltasone Tab*) 5 mg PO DAILY [facility] Last Admin: 06/26/17 08:48 Dose: 5 mg Prochlorperazine Edisylate (Compazine Inj*) 2.5 mg IV Q6H PRN PRN Reason: NAUSEA/VOMITING Sertraline HCl (Zoloft*) 50 mg PO DAILY [facility] Last Admin: 06/26/17 08:49 Dose: 50 mg Sevelamer Carbonate (Renvela Tab*) 1,600 mg PO TID WITH MEALS [facility] Last Admin: 06/26/17 15:29 Dose: Not Given Sevelamer Carbonate (Renvela Tab*) 1,600 mg PO .SNACKS PRN PRN Reason: SNACKS Vital Signs - 8 hr 06/26/17 06/26/17 06/26/17 08:00 08:51 08:52 Respiratory 16 16 16 Rate 06/26/17 06/26/17 15:33 15:34 Respiratory 18 18 Rate Oxygen Devices in Use Now: None Appearance: frail, alert, NAD Ears/Nose/Mouth/Throat: Clear Oropharnyx Neck: NL Appearance and Movements; NL JVP, Trachea Midline Respiratory: Symmetrical Chest Expansion and Respiratory Effort, Clear to Auscultation Cardiovascular: NL Sounds; No Murmurs; No JVD, RRR Abdominal: NL Sounds; No Tenderness; No Distention Extremities: No Edema Skin: No Rash or Ulcers Neurological: Alert and Oriented x 3 Nutrition: Taking PO's Result Diagrams: 06/26/17 06:55 06/26/17 06:55 Microbiology and Other Data: Microbiology 06/22/17 20:45 Gram Stain - Final Peritoneal Dialysis Effluent 06/22/17 18:45 Nasal Screen MRSA (PCR)([facility]) - Final Nasal Mrsa Negative Diagnostic Imaging: Patient Name: EDWARDO GUILLEN Medical Record#: [id number] Ordering Physician: Vinayak Benavides MD Acct.#: [id number] : 1960 Age: 56 Sex: F Location: [address] [place] [address] MEDICAL/TELEMETRY Exam Date: 06/25/171128 ADM Status: ADM IN Order Information: US GALL BLADDER Accession Number: [id number] CPT: 39127 HISTORY: Right upper quadrant pain COMPARISONS: CT dated June 19, 2017 TECHNIQUE: Multiple transverse and longitudinal ultrasound images were obtained of the right upper quadrant of the abdomen using grayscale and color Doppler imaging. FINDINGS: LIVER: The liver is normal in shape, size, contour, and echogenicity. There is a cyst of the right lobe measuring 1.8 cm.. There is normal hepatopedal flow of the portal vein on Doppler imaging. BILIARY TREE: There is no intrahepatic or extrahepatic biliary dilatation. The common duct measures 0.7 cm. GALLBLADDER: The gallbladder is distended. There is no cholelithiasis. The technologist reports a positive sonographic Hancock sign. PANCREAS: The head of the pancreas is unremarkable. The tail of the pancreas is not well visualized secondary to overlying bowel gas. RIGHT KIDNEY: The kidney parenchyma is essentially replaced by innumerable renal parenchymal cysts consistent with polycystic kidney disease. There is no hydronephrosis or nephrolithiasis. The right kidney measures 13.9 x 7.2 x 6.9 cm. AORTA AND IVC: The aorta and IVC are unremarkable. FLUID: There is perihepatic ascites OTHER FINDINGS: None. IMPRESSION: 1. THE CONTROL SYSTEMS DRAFTING OFFICER REPORTS A POSITIVE SONOGRAPHIC HANCOCK'S SIGN. THERE IS NO CHOLELITHIASIS OR GALLBLADDER WALL THICKENING. THIS IS INDETERMINATE FOR THE SONOGRAPHIC FEATURES OF ACUTE CHOLECYSTITIS. 2. SMALL AMOUNT OF ASCITES. 3. POLYCYSTIC KIDNEY DISEASE <Electronically signed by Bladimir Barrera MD in [place]> 06/25/17 0947 Dictated By: Bladimir Barrera MD Dictated Date/Time: 06/25/17 0947 Transcribed Date/Time: 06/25/17 0905 Copy to: CC:Letty Duffy MD; Vinayak Benavides MD; Romana Núñez DO; Miriam Vizcarra MD 1 of 2 Assess/Plan/Problems-Billing Assessment: This is a 56 yo female with a PMH significant for ESRD on peritoneal dialysis, PKD, HTN, systolic HF, CAD, and inflammatory arthropathy that presents with abdominal pain, diarrhea and weakness secondary to peritonitis. - Patient Problems (1) Inflammatory arthropathy Code(s): M19.90 - UNSPECIFIED OSTEOARTHRITIS, UNSPECIFIED SITE SNOMED Code(s) : 5211378 Comment: - Given avascular necrosis on xray, would recommend stopping prednisone at some point, needs outpatient follow up with rheumatology. - Needs MRI and orthopedic eval for hips as an outpatient - Continue home prednisone and hydroxychlorquine for now (2) Peritonitis Code(s): K65.9 - PERITONITIS, UNSPECIFIED SNOMED Code(s): 73862171 Comment: - Abodminal pain with further improvement, diarrhea persistent but less volume and episodes - Continue Zosyn, follow stool cultures, NTD - US gallbladder with no acute cholycystitis - Per radiology, gastrografin enema will likely NOT yield a finding for fistula , also discussed with Dr. Ospina from surgery, CT scan with oral contrast would be preferred. Also discussed with Jemma dial marker, there was discussion of doing a peritoneogram under fluoroscopy. Will investigate and see if we can do this tomorrow. (3) Sepsis Comment: - Symptoms resolved, BP stable (4) Systolic CHF Code(s): I50.20 - UNSPECIFIED SYSTOLIC (CONGESTIVE) HEART FAILURE SNOMED Code( s): 726037773 Comment: - At baseline - Continue coreg (5) Chronic pain Current Visit: No Status: Acute Code(s): G89.29 - OTHER CHRONIC PAIN SNOMED Code(s): 29467435 Comment: Continue home pain medications (6) Full code status Code(s): Z78.9 - OTHER SPECIFIED HEALTH STATUS SNOMED Code(s): 719518609 (7) ESRD (end stage renal disease) Code(s): N18.6 - END STAGE RENAL DISEASE SNOMED Code(s): 76439894 Comment: - Hx of polycystic kidney disease, s/p nephrectomy - Blood tinged effluent from PD exchange last night, but tolerated, continue tonight (8) History of depression Code(s): Z86.59 - PERSONAL HISTORY OF OTHER MENTAL AND BEHAVIORAL DISORDERS SNOMED Code(s): 833728206 Comment: - Continue sertraline. (9) Hx of coronary artery disease Code(s): Z86.79 - PERSONAL HISTORY OF OTHER DISEASES OF THE CIRCULATORY SYSTEM SNOMED Code(s): 996883492 Comment: - Continue beta-samira. - Question daily ASA or statin? Status and Disposition: Remain inpatient for atbx and possible peritoneogram tomorrow to assess placement and function of PD catheter. Counseling and/or Coordination of Care Minutes: [facility] with [facility]
[2017-06-26] MEDS: Ondansetron INJ* 2 MG/ML VIAL IV PRN (17:16)
[2017-06-26] MEDS: PROCHLORPERAZINE INJ 5 MG/ML 2 ML VIAL IV PRN (22:43)
[2017-06-27] MEDS: HYDROmorphone INJ* 1 MG/ML CARPUJECT SYRINGE IV SLOW PU PRN ×2 (03:50→21:36)
[2017-06-27] MEDS: Ondansetron INJ* 2 MG/ML VIAL IV PRN ×3 (03:58→21:21)
[2017-06-27] MEDS: Heparin VIAL(*) 5000 UNITS/ML VIAL (FIVE THOUSAND) SUBCUT SCH ×3 (05:54→21:40)
[2017-06-27] MEDS: ZOSYN 3.375 GM Q12H per EXTENDED INFUSION IVPB SCH ×4 (09:34→21:55)
[2017-06-27] MEDS: Sevelamer TAB* 800 MG PO SCH ×3 (09:35→18:07)
[2017-06-27] MEDS: Ferrous Sulfate TAB* 325 MG PO SCH ×2 (09:35→21:39)
[2017-06-27] MEDS: NIFEdipine ER TAB* 30 MG PO SCH ×2 (09:35→21:39)
[2017-06-27] MEDS: Carvedilol TAB* 25 MG PO SCH ×2 (09:35→21:39)
[2017-06-27] MEDS: predniSONE TAB* 5 MG PO SCH (09:35)
[2017-06-27] MEDS: LORazepam TAB(*) 1 MG PO PRN ×2 (09:51→21:39)
[2017-06-27] MEDS: Hydroxychloroquine TAB* 200 MG PO SCH (09:53)
[2017-06-27] MEDS: Calcitriol CAP* 0.25 MCG PO SCH (09:53)
[2017-06-27] MEDS: Sertraline* 50 MG TAB PO SCH (10:22)
--- NOTE | 2017-06-27 14:57 | RAD ---
CPT II Codes: 6045F. Indication: Peritoneal dialysis catheter check. 14 seconds of fluoroscopy time was used. Single view of the abdomen was reviewed. Under fluoroscopic guidance approximately 15 mL of Omnipaque 300 was injected into the peritoneal dialysis catheter. The contrast outlining bowel loops. No evidence of abnormal collections noted. IMPRESSION: Peritoneal dialysis catheter appears to be patent with no evidence of loculated collections.
[2017-06-27] MEDS: PROCHLORPERAZINE INJ 5 MG/ML 2 ML VIAL IV PRN (15:26)
[2017-06-27] MEDS: HYDROcodone/ACETAMIN 5-325 MG* 1 TAB PO PRN (15:32)
--- NOTE | 2017-06-27 16:12 | PN ---
Subjective Date of Service: 06/27/17 Interval History: Patient seen and examined. No acute overnight events. PD exchange with no issues last night. Had some of her usual pain, but not like previous. No blood in effluent. Soft stool, but no diarrhea, no n/v. Pain in right knee 2/2 previous fall. No further complaints. Family History: Unchanged from Admission Social History: Unchanged from Admission Past Medical History: Unchanged from Admission Objective Active Medications: Acetaminophen (Tylenol Tab*) 650 mg PO Q4H PRN PRN Reason: FEVER/PAIN Last Admin: 06/25/17 09:11 Dose: 650 mg Hydrocodone Bitart/Acetaminophen ([place] 5-325 Tab*) 2 tab PO Q6H PRN PRN Reason: PAIN Last Admin: 06/27/17 15:32 Dose: 2 tab Albuterol (Ventolin 2.5 Mg/3 Ml Neb.Francy*) 2.5 mg INH Q4H PRN PRN Reason: SOB/WHEEZING Calcitriol (Rocaltrol Cap*) 0.25 mcg PO DAILY [facility] Last Admin: 06/27/17 09:53 Dose: 0.25 mcg Carvedilol (Coreg Tab*) 25 mg PO BID [facility] Last Admin: 06/27/17 09:35 Dose: 25 mg Ferrous Sulfate (Ferrous Sulfate Tab*) 325 mg PO BID [facility] Last Admin: 06/27/17 09:35 Dose: 325 mg Heparin Sodium (Porcine) (Heparin Vial(*)) 5,000 units SUBCUT Q8HR [facility] Last Admin: 06/27/17 15:27 Dose: 5,000 units Hydromorphone HCl (Dilaudid Injic*) 0.5 mg IV SLOW PU Q4H PRN PRN Reason: PAIN - MODERATE TO SEVERE Last Admin: 06/27/17 03:50 Dose: 0.5 mg Hydroxychloroquine Sulfate (Plaquenil Tab*) 400 mg PO DAILY [facility] Last Admin: 06/27/17 09:53 Dose: 400 mg Piperacillin Sod/Tazobactam (Sod 3.375 gm/ Sodium Chloride) 100 mls @ 25 mls/ hr IVPB Q12H [facility] Last Admin: 06/27/17 09:34 Dose: 25 mls/hr Lorazepam (Ativan Tab(*)) 2 mg PO Q6HR PRN PRN Reason: ANXIETY Last Admin: 06/27/17 09:51 Dose: 2 mg Mupirocin (Bactroban 2 % Oint*) 1 applic TOPICAL DAILY PRN PRN Reason: PD EXIT SITE Nifedipine (Procardia Xl Tab*) 30 mg PO BID [facility] Last Admin: 06/27/17 09:35 Dose: 30 mg Ondansetron HCl (Zofran Inj*) 4 mg IV Q8H PRN PRN Reason: NAUSEA/VOMITING Last Admin: 06/27/17 10:41 Dose: 4 mg Pharmacy Consult (Zosyn Per Pharmacy*) 1 note FOLLOW UP .ZOSYN PER PHARMACY [facility] Prednisone (Deltasone Tab*) 5 mg PO DAILY [facility] Last Admin: 06/27/17 09:35 Dose: 5 mg Prochlorperazine Edisylate (Compazine Inj*) 2.5 mg IV Q6H PRN PRN Reason: NAUSEA/VOMITING Last Admin: 06/27/17 15:26 Dose: 0.5 ml Sertraline HCl (Zoloft*) 50 mg PO DAILY [facility] Last Admin: 06/27/17 10:22 Dose: 50 mg Sevelamer Carbonate (Renvela Tab*) 1,600 mg PO TID WITH MEALS [facility] Last Admin: 06/27/17 12:33 Dose: 1,600 mg Sevelamer Carbonate (Renvela Tab*) 1,600 mg PO .SNACKS PRN PRN Reason: SNACKS Vital Signs - 8 hr 06/27/17 06/27/17 06/27/17 09:51 12:30 15:32 Respiratory 18 18 16 Rate Oxygen Devices in Use Now: None Appearance: alert, ambulatory, no distress Ears/Nose/Mouth/Throat: NL Teeth, Lips, Gums, Mucous Membranes Moist Neck: NL Appearance and Movements; NL JVP, Trachea Midline Respiratory: Symmetrical Chest Expansion and Respiratory Effort, Clear to Auscultation Cardiovascular: NL Sounds; No Murmurs; No JVD, RRR Abdominal: - - mild pain to palpation ruq Extremities: - - bruising and ecchymosis to right knee with some edema Skin: No Rash or Ulcers Neurological: Alert and Oriented x 3 Nutrition: Taking PO's Result Diagrams: 06/26/17 06:55 06/26/17 06:55 Additional Lab and Data: Lab Results Microbiology and Other Data: Microbiology 06/22/17 20:45 Gram Stain - Final Peritoneal Dialysis Effluent 06/22/17 18:45 Nasal Screen MRSA (PCR)(HANNAH) - Final Nasal Mrsa Negative Diagnostic Imaging: Patient Name: EDWARDO GUILLEN Medical Record#: [id number] Ordering Physician: Annette Mooney NP Acct.#: [id number] : 1960 Age: 56 Sex: F Location: 4 [facility]LE[facility] Exam Date: 06/27/17 1219 ADM Status: ADM IN Order Information: INJ CONTRAST FOR CVAD PATENCY Accession Number: [id number] CPT: 29264 CPT II Codes: 6045F. Indication: Peritoneal dialysis catheter check. 14 seconds of fluoroscopy time was used. Single view of the abdomen was reviewed. Under fluoroscopic guidance approximately 15 mL of Omnipaque 300 was injected into the peritoneal dialysis catheter. The contrast outlining bowel loops. No evidence of abnormal collections noted. IMPRESSION: Peritoneal dialysis catheter appears to be patent with no evidence of loculated collections. <Electronically signed by Melinda Campos MD in [place]> 06/27/17 1454 Dictated By: Melinda Campos MD Dictated Date/Time: 06/27/17 1454 Transcribed Date/Time: 06/27/17 1453 Copy to: CC:Letty Duffy MD; Vinayak Benavides MD; Annette Mooney NETWORK TECHNOLOGY INSTRUCTOR; Romana Núñez DO; Doug Reyes MD Imaging - [facility] Imaging - [facility] Imaging - [facility] [address] [address] ph [phone]) ph ([phone]) ph ([phone]) 1 of 1 Patient Name: EDWARDO GUILLEN Medical Record#: [id number] Ordering Physician: Vinayak Benavides MD Acct.#: [id number] : 1960 Age: 56 Sex: F Location: 4 [facility] Exam Date: 06/25/17 1129 ADM Status: ADM IN Order Information: US GALL BLADDER Accession Number: [id number] CPT: 85761 HISTORY: Right upper quadrant pain COMPARISONS: CT dated June 19, 2017 TECHNIQUE: Multiple transverse and longitudinal ultrasound images were obtained of the right upper quadrant of the abdomen using grayscale and color Doppler imaging. FINDINGS: LIVER: The liver is normal in shape, size, contour, and echogenicity. There is a cyst of the right lobe measuring 1.8 cm.. There is normal hepatopedal flow of the portal vein on Doppler imaging. BILIARY TREE: There is no intrahepatic or extrahepatic biliary dilatation. The common duct measures 0.7 cm. GALLBLADDER: The gallbladder is distended. There is no cholelithiasis. The technologist reports a positive sonographic Hancock sign. PANCREAS: The head of the pancreas is unremarkable. The tail of the pancreas is not well visualized secondary to overlying bowel gas. RIGHT KIDNEY: The kidney parenchyma is essentially replaced by innumerable renal parenchymal cysts consistent with polycystic kidney disease. There is no hydronephrosis or nephrolithiasis. The right kidney measures 13.9 x 7.2 x 6.9 cm. AORTA AND IVC: The aorta and IVC are unremarkable. FLUID: There is perihepatic ascites OTHER FINDINGS: None. IMPRESSION: 1. 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 THERE IS NO CHOLELITHIASIS OR GALLBLADDER WALL THICKENING. THIS IS INDETERMINATE FOR THE SONOGRAPHIC FEATURES OF ACUTE CHOLECYSTITIS. 2. SMALL AMOUNT OF ASCITES. 3. POLYCYSTIC KIDNEY DISEASE <Electronically signed by Bladimir Barrera MD in [place]> 06/25/17946 Dictated By: Bladimir Barrera MD Dictated Date/Time: 06/25/17946 Transcribed Date/Time: 06/25/17942 Copy to: CC:Letty Duffy MD; Vinayak Benavides MD; Romana Núñez DO; Miriam Vizcarra MD 1 of 2 Assess/Plan/Problems-Billing Assessment: This is a 56 yo female with a PMH significant for ESRD on peritoneal dialysis, PKD, HTN, systolic HF, CAD, and inflammatory arthropathy that presents with abdominal pain, diarrhea and weakness secondary to peritonitis. - Patient Problems (1) Inflammatory arthropathy Code(s): M19.90 - UNSPECIFIED OSTEOARTHRITIS, UNSPECIFIED SITE SNOMED Code(s) : 4518986 Comment: - Given avascular necrosis on xray, would recommend stopping prednisone at some point, needs outpatient follow up with rheumatology. - Needs MRI and orthopedic eval for hips as an outpatient - Continue home prednisone and hydroxychlorquine for now (2) Peritonitis Code(s): K65.9 - PERITONITIS, UNSPECIFIED SNOMED Code(s): 77579566 Comment: - PD catheter check under fluoroscopy as above. PD catheter in proper placement - Abd pain improved - Soft stool but no watery diarrhea - US gallbladder with no acute cholycystitis - Will defer to ID for duration of antibiotics (3) Sepsis Comment: - Symptoms resolved, BP stable (4) Systolic CHF Code(s): I50.20 - UNSPECIFIED SYSTOLIC (CONGESTIVE) HEART FAILURE SNOMED Code( s): 892707857 Comment: - At baseline - Continue coreg (5) Chronic pain Current Visit: No Status: Acute Code(s): G89.29 - OTHER CHRONIC PAIN SNOMED Code(s): 90146643 Comment: Continue home pain medications (6) Full code status Code(s): Z78.9 - OTHER SPECIFIED HEALTH STATUS SNOMED Code(s): 937817659 (7) ESRD (end stage renal disease) Code(s): N18.6 - END STAGE RENAL DISEASE SNOMED Code(s): 58252714 Comment: - Hx of polycystic kidney disease, s/p nephrectomy - Blood tinged effluent from PD exchange last night, but tolerated, continue tonight (8) History of depression Code(s): Z86.59 - PERSONAL HISTORY OF OTHER MENTAL AND BEHAVIORAL DISORDERS SNOMED Code(s): 558853063 Comment: - Continue sertraline. (9) Hx of coronary artery disease Code(s): Z86.79 - PERSONAL HISTORY OF OTHER DISEASES OF THE CIRCULATORY SYSTEM SNOMED Code(s): 751924950 Comment: - Continue beta-samira. - Question daily ASA or statin? (10) Knee pain, acute Code(s): M25.569 - PAIN IN UNSPECIFIED KNEE SNOMED Code(s): 98944137 Comment: - 2/2 fall, xray negative for fracture or dislocation - ice pack and pain meds for soft tissue swelling and bruising (11) Troponin level elevated Code(s): R74.8 - ABNORMAL LEVELS OF OTHER SERUM ENZYMES SNOMED Code(s): 904108034 Comment: - In a dialysis patient, likely chronic demand ischemia - Final number trended down today - Patient has been chest pain free since admission Status and Disposition: Marked improvement. Would plan for DC home tomorrow if clear by ID. Counseling and/or Coordination of Care Minutes: coordinated with patient and RN
[2017-06-28] MEDS: PROCHLORPERAZINE INJ 5 MG/ML 2 ML VIAL IV PRN (03:35)
[2017-06-28] MEDS: HYDROcodone/ACETAMIN 5-325 MG* 1 TAB PO PRN ×2 (05:00→18:10)
[2017-06-28] MEDS: Heparin VIAL(*) 5000 UNITS/ML VIAL (FIVE THOUSAND) SUBCUT SCH ×3 (05:01→20:31)
[2017-06-28] MEDS: Sevelamer TAB* 800 MG PO SCH ×3 (08:53→17:50)
[2017-06-28] MEDS: ZOSYN 3.375 GM Q12H per EXTENDED INFUSION IVPB SCH ×4 (09:20→22:08)
[2017-06-28] MEDS: Sertraline* 50 MG TAB PO SCH (09:21)
[2017-06-28] MEDS: Acetaminophen TAB* 325 MG PO PRN (09:21)
[2017-06-28] MEDS: Hydroxychloroquine TAB* 200 MG PO SCH (09:21)
[2017-06-28] MEDS: Carvedilol TAB* 25 MG PO SCH ×2 (09:22→20:27)
[2017-06-28] MEDS: Calcitriol CAP* 0.25 MCG PO SCH (09:22)
[2017-06-28] MEDS: NIFEdipine ER TAB* 30 MG PO SCH ×2 (09:22→20:27)
[2017-06-28] MEDS: Ferrous Sulfate TAB* 325 MG PO SCH ×2 (09:22→20:27)
[2017-06-28] MEDS: predniSONE TAB* 5 MG PO SCH (09:23)
--- NOTE | 2017-06-28 09:50 | PN ---
Progress Note - Progress Note Date of Service: 06/28/17 SOAP: Subjective: CC: RUQ pain HPI: 56 year old woman with ESRD/PD and RUQ PD catheter with 2-3 weeks. Ongoing right sided abd pain and post prandial diarrhea. No fever or diarrhea. No pain emptying dialysate. Appetite still decreased. Vomited yesterday. Objective: Vital Signs Temp 37.0 C 06/28/17 07:51 Pulse 78 06/28/17 07:51 Resp 17 06/28/17 08:13 BP 142/76 06/28/17 07:51 Pulse Ox 97 06/28/17 07:51 Intake & Output 06/27/17 06/28/17 06/28/17 18:59 06:59 18:59 Intake Total 350 331 Output Total 0 Balance 350 331 Weight 104 lb 12.8 oz Intake: IV Fluids 20 ABX - ZOSYN 20 IVPB 111 ABX - ZOSYN 111 Oral 350 200 Output: Urine 0 Other: # Bowel Movements 1 Estimated Stool Amount Small Gen:awake, no distress, pale HEENT:PERRL, MMM Heart:RRR no murmur Lungs:CTA BL Abd:+BS, RUQ tenderness, RUQ catheter no surrounding erythema Skin: no rash Laboratory Results - last 24 hr 06/27/17 12:48 Troponin I 0.19 H* Assessment: 1. RUQ pain; diff dx GB disease ie acalculous cholecystitis (Enterococcus does grow in GB, it is enlarged on US, and she has postprandial symptoms) or PD catheter infection which seems less likely as fluid has been clear and instilling fluid is not painful. 2. ESRD/PD 3. PCKD 4. elevated CRP, improving Plan: 1. continue zosyn, HIDA scan. Discussed with Dr Bianchi and Cande Alcala CLINICAL DATA ASSOCIATE 35 minutes floor time >50% face to face regarding further diagnostic testing
--- NOTE | 2017-06-28 10:12 | PN ---
Subjective Date of Service: 06/28/17 Interval History: Ms. Charles reports persistent loose stool, vomiting and right upper quadrant pain. She is nervous about going for the planned HIDA scan this morning. She agrees that she appears short of breath but feels that this is related to her anxiety about the impending test. She feels that she has not really improved much since admission. Family History: Unchanged from Admission Social History: Unchanged from Admission Past Medical History: Unchanged from Admission Objective Active Medications: Acetaminophen (Tylenol Tab*) 650 mg PO Q4H PRN Hydrocodone Bitart/Acetaminophen ([place] 5-325 Tab*) 2 tab PO Q6H PRN Albuterol (Ventolin 2.5 Mg/3 Ml Neb.Francy*) 2.5 mg INH Q4H PRN Calcitriol (Rocaltrol Cap*) 0.25 mcg PO DAILY [facility] Carvedilol (Coreg Tab*) 25 mg PO BID [facility] Ferrous Sulfate (Ferrous Sulfate Tab*) 325 mg PO BID [facility] Heparin Sodium (Porcine) (Heparin Vial(*)) 5,000 units SUBCUT Q8HR [facility] Hydroxychloroquine Sulfate (Plaquenil Tab*) 400 mg PO DAILY [facility] Piperacillin Sod/Tazobactam (Sod 3.375 gm/ Sodium Chloride) 100 mls @ 25 mls/ hr IVPB Q12H [facility] Lorazepam (Ativan Tab(*)) 2 mg PO Q6HR PRN Mupirocin (Bactroban 2 % Oint*) 1 applic TOPICAL DAILY PRN Nifedipine (Procardia Xl Tab*) 30 mg PO BID [facility] Ondansetron HCl (Zofran Inj*) 4 mg IV Q8H PRN Pharmacy Consult (Zosyn Per Pharmacy*) 1 note FOLLOW UP .ZOSYN PER PHARMACY [facility] Prednisone (Deltasone Tab*) 5 mg PO DAILY [facility] Prochlorperazine Edisylate (Compazine Inj*) 2.5 mg IV Q6H PRN Sertraline HCl (Zoloft*) 50 mg PO DAILY [facility] Sevelamer Carbonate (Renvela Tab*) 1,600 mg PO TID WITH MEALS [facility] Sevelamer Carbonate (Renvela Tab*) 1,600 mg PO .SNACKS PRN Vital Signs: Temp Pulse Resp BP Pulse Ox 98.6 F 78 17 142/76 97 06/28/17 07:51 06/28/17 10:05 06/28/17 10:54 06/28/17 07:51 06/28/17 10:05 Oxygen Devices in Use Now: None, Other - Patient on NC intermittently Appearance: Thin female lying in bed, appears mildly SOB Eyes: No Scleral Icterus Ears/Nose/Mouth/Throat: Mucous Membranes Moist Respiratory: Symmetrical Chest Expansion and Respiratory Effort, Clear to Auscultation, - - Diminished bilaterally Cardiovascular: NL Sounds; No Murmurs; No JVD, No Edema Abdominal: - - Soft, significant tenderness in right upper quadrant Extremities: No Edema Skin: No Rash or Ulcers Neurological: Alert and Oriented x 3, NL Muscle Strength and Tone Nutrition: Taking PO's Result Diagrams: 06/26/17 06:55 06/26/17 06:55 Additional Lab and Data: . Microbiology and Other Data: . Diagnostic Imaging: . Assess/Plan/Problems-Billing Assessment: Ms. Charles is a 56 yo female with a PMH significant for ESRD on peritoneal dialysis, PKD, HTN, systolic CHF, CAD, and inflammatory arthropathy that presents with abdominal pain, diarrhea and weakness initially thought to be secondary to peritonitis but with concern for cholecystitis. - Patient Problems (1) Abdominal pain Comment: - Persistent nausea and vomiting with right upper quadrant pain. - Original suspicion was for peritonitis but with persistent symptoms there is persistent concern for cholecystitis despite negative GB US on arrival. - Plan for HIDA scan now. (2) ESRD (end stage renal disease) Comment: - Hx of polycystic kidney disease, s/p nephrectomy. - Blood tinged effluent from PD exchange last night, but tolerated, continue tonight. - Catheter xray shows appropriate placement. (3) Inflammatory arthropathy Comment: - Given avascular necrosis on xray, would recommend stopping prednisone at some point, needs outpatient follow up with rheumatology. - Needs MRI and orthopedic eval for hips as an outpatient - Continue home prednisone and hydroxychlorquine for now (4) Knee pain, acute Comment: - 2/2 fall, xray negative for fracture or dislocation - ice pack and pain meds for soft tissue swelling and bruising (5) Hx of coronary artery disease Comment: - Continue beta-samira. - Question daily ASA or statin? (6) Systolic CHF Comment: - At baseline. - Continue coreg. (7) HTN (hypertension) Comment: - Normotensive to hypotensive - Continue home carvedilol and nifedipine with hold parameters. (8) COPD (chronic obstructive pulmonary disease) Comment: - Stable, no evidence of acute exacerbation. - Continue prn nebulizers. (9) Anxiety Comment: - Continue lorazepam prn. (10) History of depression Comment: - Continue sertraline. (11) Anemia Comment: - Stable. - Suspect anemia of chronic disease. - Continue iron supplementation. (12) Hyponatremia Comment: - Resolved. (13) Troponin level elevated Comment: - Likely related to ESRD and demand ischemia. - Patient has been chest pain free since admission. (14) Sepsis Comment: - Resolved. (15) Full code status (16) DVT prophylaxis Comment: - Heparin SQ Status and Disposition: Remains symptomatic. Anticipate discharge to home when medically stable.
[2017-06-28] MEDS: LORazepam TAB(*) 1 MG PO PRN ×2 (10:54→20:27)
--- NOTE | 2017-06-28 13:34 | RAD ---
INDICATION: ] Right upper quadrant pain. Nausea. Vomiting. COMPARISON: Gallbladder sonogram June 25, 2017 TECHNIQUE: Following the administration of 6.1 millicuries of technetium 99m mebrofenin, serial, static, anterior images of the abdomen were obtained at 5 minute increments for a period of one hour. FINDINGS: There is prompt uptake of radiopharmaceutical within the liver indicating normal hepatic function. There is prompt visualization of the gallbladder and kidney cystic duct patency. The small bowel is well visualized at 1 hour indicating patency of the common duct. IMPRESSION: THE CYSTIC AND COMMON DUCTS ARE PATENT.
[2017-06-28] MEDS: Ondansetron INJ* 2 MG/ML VIAL IV PRN (20:27)
[2017-06-29] MEDS: Heparin VIAL(*) 5000 UNITS/ML VIAL (FIVE THOUSAND) SUBCUT SCH ×3 (05:04→20:38)
[2017-06-29] MEDS: LORazepam TAB(*) 1 MG PO PRN ×3 (05:04→18:32)
[2017-06-29] MEDS: Sevelamer TAB* 800 MG PO SCH ×3 (08:53→17:28)
[2017-06-29] MEDS: Ondansetron INJ* 2 MG/ML VIAL IV PRN (09:07)
[2017-06-29] MEDS: NIFEdipine ER TAB* 30 MG PO SCH ×2 (09:10→20:37)
[2017-06-29] MEDS: Sertraline* 50 MG TAB PO SCH (09:10)
[2017-06-29] MEDS: Ferrous Sulfate TAB* 325 MG PO SCH ×2 (09:10→20:37)
[2017-06-29] MEDS: Carvedilol TAB* 25 MG PO SCH ×2 (09:10→20:37)
[2017-06-29] MEDS: Calcitriol CAP* 0.25 MCG PO SCH (09:23)
[2017-06-29] MEDS: Hydroxychloroquine TAB* 200 MG PO SCH (09:23)
[2017-06-29] MEDS: ZOSYN 3.375 GM Q12H per EXTENDED INFUSION IVPB SCH ×4 (09:24→20:41)
[2017-06-29] MEDS: predniSONE TAB* 5 MG PO SCH (09:24)
[2017-06-29] MEDS: PROCHLORPERAZINE INJ 5 MG/ML 2 ML VIAL IV PRN ×2 (11:37→18:32)
[2017-06-29] MEDS: HYDROcodone/ACETAMIN 5-325 MG* 1 TAB PO PRN ×2 (13:20→20:37)
--- NOTE | 2017-06-29 16:49 | PN ---
Subjective Date of Service: 06/29/17 Interval History: Pt attested to 9/10 abdominal cramps this AM. watery diarrhea 3 times overnight and 3 times by mid day today. Pt asserts that she was hospitalized for 4 days about 1 month ago at this hospital and diagnosed with colitis. No records seen cooborating this. Denies visiting other hospital. Can't say whether she was treated with antibiotics or not. HIDA scan with patent bile ducts. Stool cultures obtained, pending. Cdiff PCR negative. Family History: Unchanged from Admission Social History: Unchanged from Admission Past Medical History: Unchanged from Admission Objective Active Medications: Acetaminophen (Tylenol Tab*) 650 mg PO Q4H PRN PRN Reason: FEVER/PAIN Last Admin: 06/28/17 09:21 Dose: 650 mg Albuterol (Ventolin 2.5 Mg/3 Ml Neb.Francy*) 2.5 mg INH Q4H PRN PRN Reason: SOB/WHEEZING Calcitriol (Rocaltrol Cap*) 0.25 mcg PO DAILY [facility] Last Admin: 06/29/17 09:23 Dose: 0.25 mcg Carvedilol (Coreg Tab*) 25 mg PO BID [facility] Last Admin: 06/29/17 09:10 Dose: 25 mg Ferrous Sulfate (Ferrous Sulfate Tab*) 325 mg PO BID [facility] Last Admin: 06/29/17 09:10 Dose: 325 mg Heparin Sodium (Porcine) (Heparin Vial(*)) 5,000 units SUBCUT Q8HR [facility] Last Admin: 06/29/17 13:16 Dose: 5,000 units Hydroxychloroquine Sulfate (Plaquenil Tab*) 400 mg PO DAILY [facility] Last Admin: 06/29/17 09:23 Dose: 400 mg Piperacillin Sod/Tazobactam (Sod 3.375 gm/ Sodium Chloride) 100 mls @ 25 mls/ hr IVPB Q12H [facility] Last Admin: 06/29/17 09:24 Dose: 25 mls/hr Mupirocin (Bactroban 2 % Oint*) 1 applic TOPICAL DAILY PRN PRN Reason: PD EXIT SITE Nifedipine (Procardia Xl Tab*) 30 mg PO BID [facility] Last Admin: 06/29/17 09:10 Dose: 30 mg Ondansetron HCl (Zofran Inj*) 4 mg IV Q8H PRN PRN Reason: NAUSEA/VOMITING Last Admin: 06/29/17 09:07 Dose: 4 mg Pharmacy Consult (Zosyn Per Pharmacy*) 1 note FOLLOW UP .ZOSYN PER PHARMACY [facility] Prednisone (Deltasone Tab*) 5 mg PO DAILY [facility] Last Admin: 06/29/17 09:24 Dose: Not Given Prochlorperazine Edisylate (Compazine Inj*) 2.5 mg IV Q6H PRN PRN Reason: NAUSEA/VOMITING Last Admin: 06/29/17 11:37 Dose: 0.5 ml Sertraline HCl (Zoloft*) 50 mg PO DAILY [facility] Last Admin: 06/29/17 09:10 Dose: 50 mg Sevelamer Carbonate (Renvela Tab*) 1,600 mg PO TID WITH MEALS [facility] Last Admin: 06/29/17 13:16 Dose: 800 mg Sevelamer Carbonate (Renvela Tab*) 1,600 mg PO .SNACKS PRN PRN Reason: SNACKS Vital Signs - 8 hr 06/29/17 06/29/17 06/29/17 08:53 11:25 11:38 Temperature 97.4 F Pulse Rate 73 Respiratory 18 24 18 Rate Blood Pressure 145/82 (mmHg) O2 Sat by Pulse 100 Oximetry 06/29/17 06/29/17 13:20 14:20 Temperature Pulse Rate Respiratory 18 18 Rate Blood Pressure (mmHg) O2 Sat by Pulse Oximetry Oxygen Devices in Use Now: Nasal Cannula Appearance: NAD, anxious. Eyes: No Scleral Icterus, PERRLA Ears/Nose/Mouth/Throat: NL Teeth, Lips, Gums, Mucous Membranes Moist Neck: NL Appearance and Movements; NL JVP Respiratory: Symmetrical Chest Expansion and Respiratory Effort Cardiovascular: NL Sounds; No Murmurs; No JVD, RRR Abdominal: - - RUQ tenderness, no guarding or rebound. Not worse with Hancock's testing. soft Extremities: No Edema, No Clubbing, Cyanosis Skin: No Rash or Ulcers, No Nodules or Sclerosis Neurological: Alert and Oriented x 3, NL Sensation, NL Muscle Strength and Tone Result Diagrams: 06/29/17 16:55 06/26/17 06:55 Additional Lab and Data: . Microbiology and Other Data: . Microbiology 06/28/17 19:22 Stool Stool Gross Appearance - Final 06/28/17 19:22 Stool C. difficile DNA Amplification - Final 027 Presumptive NEGATIVE Toxigenic C.diff NEGATIVE 06/22/17 20:45 Peritoneal Fluid Sterile Body Fluid Culture - Final No Growth Day 5 06/22/17 20:45 Peritoneal Fluid Sterile Body Fluid Culture - Final No Growth Day 5 06/22/17 13:44 Blood Venous Aerobic Blood Culture - Final No Growth Day 5 06/22/17 13:44 Blood Venous Anaerobic Blood Culture - Final No Growth Day 5 06/22/17 13:55 Blood Venous Aerobic Blood Culture - Final No Growth Day 5 06/22/17 13:55 Blood Venous Anaerobic Blood Culture - Final No Growth Day 5 06/22/17 20:45 Peritoneal Dialysis Effluent Gram Stain - Final 06/22/17 20:45 Peritoneal Dialysis Effluent Body Fluid Culture - Final No Growth Day 4 06/23/17 15:39 Stool Stool Occult Blood ([facility]) - Final 06/22/17 18:45 Nasal Nasal Screen MRSA (PCR)([facility]) - Final Mrsa Negative Assess/Plan/Problems-Billing Assessment: 56 yo female PMH ESRD on peritoneal dialysis, PCKD, HTN, HFpEF(45-50%), CAD, inflammatory arthropathy p/w abdominal pain, diarrhea and weakness. Peritoneal fluid with Enterococcus and Prevotella as outpatient 06/13. Cdiff negative. On zosyn with minimal improvement in symptoms. CT abd/pelvis with extended GB. HIDA negative. RUQ US w/o cholelithasis. LFTS wnl. - Patient Problems (1) Abdominal pain Current Visit: Yes Status: Acute Code(s): R10.9 - UNSPECIFIED ABDOMINAL PAIN SNOMED Code(s): 36425935 Comment: cramping, RUQ. Diarrhea (worsening, green, watery) DDx: peritonitis, gall bladder pathology, PCKD, IBS, Cdiff, colitis, pancreatitis, ischemic colitis, IBD, ovarian torsion. - HIDA scan negative. - RUQ w/o gall stones - Cdiff negative - lipase negative - lactic acid negative - continue norco q6h prn - appreciate ID recs, continue zosyn for now but this is now day 8. repeat labs (none since 06/26) and consider stopping zosyn tomorrow. Repeat peritoneal fluid on 06/22 showed no growth. (2) Anemia Current Visit: Yes Status: Acute Code(s): D64.9 - ANEMIA, UNSPECIFIED SNOMED Code(s): 036967767 Comment: - Stable. Hgb 10.0. Stool occult negative. - Iron <15, Iron Sat 4, Ferritin 19 consistent with iron deficiency - Continue iron supplementation. (3) Inflammatory arthropathy Current Visit: Yes Status: Acute Code(s): M19.90 - UNSPECIFIED OSTEOARTHRITIS, UNSPECIFIED SITE SNOMED Code(s): 6068929 Comment: - Given avascular necrosis on xray, would recommend stopping prednisone at some point, needs outpatient follow up with rheumatology. - Needs MRI and orthopedic eval for hips as an outpatient - Continue home prednisone and hydroxychlorquine for now (4) Peritonitis Current Visit: Yes Status: Acute Code(s): K65.9 - PERITONITIS, UNSPECIFIED SNOMED Code(s): 53593200 Comment: - PD catheter check in proper placement - Continue zosyn for now. plan per above. (5) Sepsis Current Visit: Yes Status: Acute Comment: Present in first 12 hours of admission (hypotensive, tachypneic). Now resolved. (6) Troponin level elevated Current Visit: Yes Status: Acute Code(s): R74.8 - ABNORMAL LEVELS OF OTHER SERUM ENZYMES SNOMED Code(s): 022303086 Comment: - Likely related to ESRD and demand ischemia. - Patient has been chest pain free since admission. (7) Systolic CHF Current Visit: Yes Status: Chronic Code(s): I50.20 - UNSPECIFIED SYSTOLIC ( CONGESTIVE) HEART FAILURE SNOMED Code(s): 173783018 Comment: ECHO 05/21/17 EF 45-50%. - At baseline. - Continue coreg. (8) Anxiety Current Visit: No Status: Acute Priority: High Onset Date: 01/26/14 Code (s): F41.9 - ANXIETY DISORDER, UNSPECIFIED SNOMED Code(s): 09421731 Comment: - Continue lorazepam prn. (9) Chronic pain Current Visit: No Status: Acute Code(s): G89.29 - OTHER CHRONIC PAIN SNOMED Code(s): 86287598 Comment: Continue home pain medications (10) COPD (chronic obstructive pulmonary disease) Current Visit: No Status: Chronic Code(s): J44.9 - CHRONIC OBSTRUCTIVE PULMONARY DISEASE, UNSPECIFIED SNOMED Code(s): 11371340 Comment: - Stable, no evidence of acute exacerbation. - Continue prn nebulizers. (11) ESRD (end stage renal disease) Current Visit: No Status: Chronic Priority: Medium Code(s): N18.6 - END STAGE RENAL DISEASE SNOMED Code(s): 19796212 Comment: - Hx of polycystic kidney disease. - continue PD - Catheter xray shows appropriate placement. (12) HTN (hypertension) Current Visit: No Status: Chronic Code(s): I10 - ESSENTIAL (PRIMARY) HYPERTENSION SNOMED Code(s): 67296403 Comment: - SBP 140-160 - Continue home carvedilol and nifedipine with hold parameters. (13) Hx of coronary artery disease Current Visit: No Status: Chronic Priority: Medium Code(s): Z86.79 - PERSONAL HISTORY OF OTHER DISEASES OF THE CIRCULATORY SYSTEM SNOMED Code(s): 613299125 Comment: - Continue beta-samira. - Question daily ASA or statin? Status and Disposition: Remains symptomatic. Anticipate discharge to home when medically stable. Attending: Doug Reyes
[2017-06-29 17:12] LABS: ABS Basophils 0.1 10^3/ul (0-0.2); ABS Eosinophils 0 10^3/ul (0-0.6); ABS Monocytes 0.6 10^3/ul (0-0.8); ABS Neutrophils 8.7 10^3/ul (1.5-7.7); ABS Nucleated RBC 0 10^3/ul; Eosinophil % 0.1 % (0-6); Hematocrit 31 % (35-47); Lymphocyte % 9.7 % (25-47); Mean Corpuscular HGB Conc 32 g/dl (31-36); Mean Corpuscular Hemoglobin 28 pg (27-31); Mean Corpuscular Volume 89 fL (80-97); Mean Platelet Volume 7 um3 (7.4-10.4); Nucleated Red Blood Cells % 0.1; Platelet Count 243 10^3/ul (150-450); Red Blood Count 3.54 10^6/ul (4.0-5.4); Red Cell Distribution Width 15 % (10.5-15); White Blood Count 10.4 10^3/ul (3.5-10.8)
[2017-06-29 17:22] LABS: EGFR Non-African American 7.1 (>60)
[2017-06-29] MEDS ORDERED: Loperamide CAP* 2 MG PO ONE (17:24)
[2017-06-29] MEDS ORDERED: Loperamide CAP* 2 MG PO PRN (20:00)
[2017-06-30] MEDS: Heparin VIAL(*) 5000 UNITS/ML VIAL (FIVE THOUSAND) SUBCUT SCH (05:36)
[2017-06-30] MEDS: HYDROcodone/ACETAMIN 5-325 MG* 1 TAB PO PRN (06:01)
[2017-06-30] MEDS: LORazepam TAB(*) 1 MG PO PRN (08:28)
[2017-06-30] MEDS ORDERED: Iodixanol* (CONTRAST) 320 MG/ML 100 ML SDV IV ONE (09:44)
--- NOTE | 2017-06-30 11:02 | RAD ---
CLINICAL HISTORY: Abdominal pain, diarrhea, peritoneal dialysis COMPARISON: June 19, 2017 TECHNIQUE: Multiple contiguous axial CT scans were obtained of the abdomen and pelvis after the administration of intravenous contrast. Coronal and sagittal multiplanar reformations are submitted for review. Oral contrast was administered. Delayed images were obtained through the abdomen and pelvis. FINDINGS: LUNG BASES: There are small bilateral pleural effusions. LIVER: There is stable simple cyst of the right lobe of liver. BILE DUCTS: There is no intrahepatic or extrahepatic biliary dilatation. GALLBLADDER: The gallbladder is normal, without pericholecystic inflammatory change. PANCREAS: The pancreas is normal, without mass or ductal dilatation. SPLEEN: Normal in size and appearance. UPPER GI TRACT: Evaluation of the gastrointestinal tract is limited by incomplete gastric distention. The upper GI tract is unremarkable. SMALL BOWEL AND MESENTERY: The small bowel is normal in contour, course, and caliber. There is no obstruction or dilatation. COLON: There are multiple diverticula of the sigmoid colon. There is no pericolonic inflammatory change. ADRENALS: Normal bilaterally. KIDNEYS: Again noted are innumerable cysts of varying complexity replacing the parenchyma of both kidneys. This is stable. There is no appreciable hydronephrosis. BLADDER: The bladder is collapsed and is not well evaluated. PELVIC ORGANS: The uterus and adnexa are grossly normal for technique. AORTA: There is calcific atherosclerotic disease of the abdominal aorta and its branches, without aneurysmal dilatation IVC: Unremarkable LYMPH NODES: There is no lymphadenopathy by size criteria. ABDOMINAL WALL: A peritoneal dialysis catheter is noted. BONES AND SOFT TISSUES: There is a mild scoliotic curvature of the spine. There are findings suggestive of avascular necrosis of the femoral heads bilaterally, stable. There is remote posttraumatic change to the right ilium, stable. There are chronic fractures of the right hemithorax, stable. OTHER: There is a small amount of ascites. IMPRESSION: 1. SMALL BILATERAL PLEURAL EFFUSIONS. 2. AGAIN NOTED ARE NORMAL RENAL PARENCHYMAL CYSTS CONSISTENT WITH POLYCYSTIC KIDNEY DISEASE. 3. SMALL AMOUNT OF ASCITES LIKELY RELATED TO PERITONEAL DIALYSIS. 4. ATHEROSCLEROSIS. 5. DIVERTICULOSIS. 6. THE APPEARANCE SIMILAR TO JUNE 19, 2017.
[2017-06-30] MEDS: Ferrous Sulfate TAB* 325 MG PO SCH (12:51)
[2017-06-30] MEDS: Carvedilol TAB* 25 MG PO SCH (12:51)
[2017-06-30] MEDS: Hydroxychloroquine TAB* 200 MG PO SCH (12:51)
[2017-06-30] MEDS: NIFEdipine ER TAB* 30 MG PO SCH (12:51)
[2017-06-30] MEDS: Sertraline* 50 MG TAB PO SCH (12:51)
[2017-06-30] MEDS: predniSONE TAB* 5 MG PO SCH (12:52)
[2017-06-30] MEDS: Sevelamer TAB* 800 MG PO SCH ×2 (12:52→12:56)
[2017-06-30] MEDS: Calcitriol CAP* 0.25 MCG PO SCH (12:52)
[2017-06-30 15:03] VITALS: BP 158/85
--- NOTE | 2017-07-01 05:00 | DS ---
DISCHARGE SUMMARY: DATE OF ADMISSION: 06/22/17 DATE OF DISCHARGE: 06/30/17 ADMITTING PROVIDER: Jazmine Garcia NP ATTENDING PHYSICIAN: Doug Reyes MD PRIMARY CARE PHYSICIAN: Dr. Letty Duffy. CHIEF COMPLAINT: Abdominal pain and weakness. PRINCIPAL DIAGNOSES: Abdominal pain of unclear etiology, but thought secondary to possible peritonitis in the setting of recent outpatient positive cultures including E. faecalis and Prevotella; and also worsened likely by antibiotic associated diarrhea. HISTORY OF PRESENT ILLNESS AND HOSPITAL COURSE: Ms. Charles is a 56-year-old female with PMH of end-stage renal disease, on peritoneal dialysis, systolic CHF , polycystic kidney disease, hypertension, coronary artery disease who was referred from primary care physician's office with complaint of abdominal pain and weakness. She had been having abdominal pain for the previous 10 days and had some vaginal discharge. 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 Sample peritoneal fluid had been obtained, which would ultimately grow enterococcus faecalis and Prevotella, these had been drawn on 06/13/17. There had been some concern about a possible fistula developing and she was scheduled to get a Gastrografin enema as an outpatient. Of note, she has also had 4 falls within the previous few weeks prior to admission and had some pain in her right knee. She attributed some of the falls to generalized weakness and history of CVA with left foot drop on occasion. She was afebrile on admission throughout her hospital course. She had an elevated white count of 13.2 on admission and CRP initially 205, which decreased throughout admission. She was placed on Zosyn and Infectious Disease was consulted. The patient had elevated troponin, which peaked at 0.41 on 06/24/17. She was noted to be anemic. Hemoglobins 9 to 10. Normocytic and iron studies demonstrated iron- deficiency anemia with iron less than 15, sat 4%, and ferritin 19. She was started on iron supplementation. There was some concern given the seemingly enlarged gallbladder though no wall thickening and normal LFTs for a gallbladder pathology. An ultrasound was obtained, which did not show any evidence of cholelithiasis. There was no gallbladder wall thickening again. There was report of a positive sonographic Hancock sign with small amount of ascites and polycystic kidney disease. She had a HIDA scan, which showed common bile ducts and again liver function tests were normal. The patient had progression of her diarrhea and by 06/29/17, cramping abdominal pain. The day prior, C. diff testing had been sent for and was negative. The patient was placed on some Imodium with almost immediate relief of her abdominal pain. A repeat CT abdomen and pelvis was obtained, which showed small bilateral pleural effusions , normal renal parenchymal cyst consistent with polycystic kidney disease, small amount of ascites, and overall similar appearance to 06/19/17 study. The patient was feeling much better and discharged with plan to follow up with Dr. Letty Duffy and nurses at Dr. Bianchi's nephrology office. Of note, the patient is on Plaquenil for at least 1 year for her inflammatory arthropathy and that can sometimes cause nausea, vomiting, abdominal pain. There was suspicion that perhaps the worsening of her diarrhea was associated with the antibiotic use. Of note, the patient had repeat peritoneal fluid cultures on , which showed no growth x5 days with 5 white blood cells, all neutrophils , fluid was colorless. DISCHARGE MEDICATIONS: Include: 1. Ferrous sulfate 325 mg p.o. b.i.d. 2. Imodium 2 mg tabs p.r.n. 3. Calcitriol daily 0.25 mcg. 4. Carvedilol 25 mg p.o. b.i.d. 5. Hydrocodone/acetaminophen 5/325 mg 1 tabs p.o. q.6 hours p.r.n. 6. Plaquenil (hydrochloroquine) 400 mg p.o. daily. 7. Nifedipine 30 mg p.o. b.i.d. 8. Prednisone 5 mg p.o. daily. 9. Sertraline 15 mg p.o. daily. 10. Sevelamer 4000 mg p.o. with meals and snacks. 11. Acetaminophen 500 mg q.6 hours p.r.n. 12. Zofran 4 mg p.o. q.6 hours p.r.n. 13. Vitamin D 1 tab p.o. daily. 14. Synthetic marijuana p.r.n. DISCHARGE DIET: Heart healthy. ACTIVITY LEVEL: No restrictions. FOLLOWUP: Please follow up with Dr. Letty Duffy within 3 to 5 days of discharge. TIME SPENT ON DISCHARGE: 35 minutes. [id number]/[facility] #: [id number] EL
== END 2017-06-30 14:25 | disposition home or self-care (01) | DRG 391 ==
LOC: ED 12:04 → MEDTELE 18:39 → MED 06-29 16:40
PROVIDERS: ADMIT Internal Medicine; ATTEND Internal Medicine
PROC: 3E1M39Z Irrigation of Peritoneal Cavity using Dialysate, Percutaneous Approach (ICD-10-PCS; principal; 2017-06-22)
DX: K57.80 Diverticulitis of intestine, part unspecified, with perforation and abscess without bleeding (principal); N18.6 End stage renal disease; 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 disease with heart failure and with stage 5 chronic kidney disease, or end stage renal disease; I67.1 Cerebral aneurysm, nonruptured; R18.8 Other ascites; I42.9 Cardiomyopathy, unspecified; K52.1 Toxic gastroenteritis and colitis; E87.1 Hypo-osmolality and hyponatremia; I50.22 Chronic systolic (congestive) heart failure; M87.851 Other osteonecrosis, right femur; M87.852 Other osteonecrosis, left femur; N28.0 Ischemia and infarction of kidney; Q61.3 Polycystic kidney, unspecified; B95.2 Enterococcus as the cause of diseases classified elsewhere; B96.89 Other specified bacterial agents as the cause of diseases classified elsewhere; I25.10 Atherosclerotic heart disease of native coronary artery without angina pectoris; K21.9 Gastro-esophageal reflux disease without esophagitis; M06.9 Rheumatoid arthritis, unspecified; F41.9 Anxiety disorder, unspecified; F32.9 Major depressive disorder, single episode, unspecified; E78.00 Pure hypercholesterolemia, unspecified; R53.1 Weakness; D63.1 Anemia in chronic kidney disease; J44.9 Chronic obstructive pulmonary disease, unspecified; G89.29 Other chronic pain; M25.561 Pain in right knee; M21.372 Foot drop, left foot; D50.9 Iron deficiency anemia, unspecified; M13.852 Other specified arthritis, left hip; M13.851 Other specified arthritis, right hip; R74.8 Abnormal levels of other serum enzymes; T36.95XA Adverse effect of unspecified systemic antibiotic, initial encounter; Y92.239 Unspecified place in hospital as the place of occurrence of the external cause; Z79.52 Long term (current) use of systemic steroids; Z87.891 Personal history of nicotine dependence; Z88.8 Allergy status to other drugs, medicaments and biological substances; Z88.6 Allergy status to analgesic agent; I25.2 Old myocardial infarction; Z99.2 Dependence on renal dialysis; Z90.5 Acquired absence of kidney; I69.398 Other sequelae of cerebral infarction
CPT/HCPCS: 36415; 36598; 71045; 74177; 76705; 78226; 80048; 80053; 82272; 82607; 82652; 82728; 82746; 83540; 83550; 83605; 83690; 84484; 85025; 85652; 86140; 87040; 87045; 87046; 87070; 87205; 87493; 87641; 87899; 89051; 90945; 93005; 96374; 99283; A9270-GY; A9537; G0257; J0780; J1170; J1644; J2405; J2543; J3370; J7512; Q9967

== ENCOUNTER 2017-09-13 21:26 | Observation (INO) | payer MEDICARE, MEDICAID ==
[2017-09-13] MEDS ORDERED: Morphine INJ* 4 MG/ML 1 ML SYRINGE (NEW SYRINGE VERSION) IV ONE (22:05)
[2017-09-13] MEDS ORDERED: ceFAZolin 1 GM VIAL(*) 1 GM in NS 0.9% 50 ML* 50 ML IVPB ONE ×2 (22:05→22:26)
[2017-09-13] MEDS ORDERED: Ondansetron INJ* 2 MG/ML VIAL IV ONE (22:05)
[2017-09-13] MEDS ORDERED: Tetan/Diph/Pertus SYR(Tdap)* 0.5 ML SYR(BOOSTRIX) use SYR IM ONE (22:06)
[2017-09-13] MEDS ORDERED: Lidocaine 2% 10 ML* VIAL INJ ONE (22:07)
[2017-09-13] MEDS ORDERED: ceFAZolin 1 GM in Dextrose (*) 1 GM/50 ML BAG IVPB ONE (22:15)
[2017-09-13] MEDS ORDERED: Morphine VIAL* 4 MG/ML VIAL (1 ml vial) IV ONE ×2 (22:17→22:19)
[2017-09-13 22:28] LABS: ABS Basophils 0.1 10^3/ul (0-0.2); ABS Eosinophils 0.4 10^3/ul (0-0.6); ABS Lymphocytes 1.3 10^3/ul (1.0-4.8); ABS Monocytes 0.5 10^3/ul (0-0.8); ABS Neutrophils 5.9 10^3/ul (1.5-7.7); ABS Nucleated RBC 0 10^3/ul; Hematocrit 33 % (35-47); Hemoglobin 10.7 g/dl (12.0-16.0); Lymphocyte % 15.9 % (25-47); Mean Corpuscular HGB Conc 33 g/dl (31-36); Mean Corpuscular Hemoglobin 29 pg (27-31); Mean Corpuscular Volume 90 fL (80-97); Mean Platelet Volume 7.6 um3 (7.4-10.4); Nucleated Red Blood Cells % 0.1; Platelet Count 201 10^3/ul (150-450); Red Blood Count 3.63 10^6/ul (4.0-5.4); Red Cell Distribution Width 16 % (10.5-15); White Blood Count 8.3 10^3/ul (3.5-10.8)
[2017-09-13 22:46] LABS: EGFR Non-African American 5.6 (>60)
[2017-09-14] MEDS ORDERED: Ondansetron INJ* 2 MG/ML VIAL IV PRN (02:00)
--- NOTE | 2017-09-14 02:16 | ED ---
Umesh Morales Tecjoon, scribkelvin for Sanjuanita High MD on 09/13/17 at 2210 . Laceration/Wound HPI - HPI Summary HPI Summary: This patient is a 57 year old female BIBA to [facility] accompanied by son with a chief complaint of left leg laceration [employer]. Patient states that she was carrying her dialysis bag when she slipped and scrapped her left leg on her trash can. Patient states that when she fell, she suffered head trauma as well, but no LOC. Patient has a long laceration running down her left leg. The pain is rated 5/10 in severity. Symptoms aggravated by movement. Symptoms alleviated by nothing. Patient additionally reports abrasion on lip and ecchymosis on chest. - History of Current Complaint Stated Complaint: FALL/LT LEG INJURY Time Seen by Provider: 09/13/17 21:56 Hx Obtained From: Patient Mechanism of Injury: Sharp/Blunt Trauma, Other - mechanical fall Onset/Duration: Sudden Onset, Lasting Hours, Still Present Aggravating: Movement Alleviating: Nothing Timing: Constant Onset Severity: Severe Current Severity: Severe Pain Intensity: 5 Pain Scale Used: 0-10 Numeric Associated Signs & Symptoms: Pain - Additional Pertinent History Primary Care Physician: CHANDU - Allergy/Home Medications Allergies/Adverse Reactions: Allergies Allergy/AdvReac Type Severity Reaction Status Date / Time Adhesive Tape Allergy Hives Verified 06/19/17 12:14 MS Codeine [Codeine] Allergy GI Upset Verified 06/19/17 12:14 PMH/Surg Hx/FS Hx/Imm Hx Previously Healthy: No Endocrine/Hematology History: Reports: Hx Anemia - gets epogen shot Denies: Hx Diabetes, Hx Systemic Lupus Erythematosus, Hx Thyroid Disease Cardiovascular History: Reports: Hx Aneurysm, Hx Congestive Heart Failure, Hx Coronary Artery Disease, Hx Hypercholesterolemia, Hx Hypertension, Other Cardiovascular Problems/Disorders - CAD, ND Denies: Hx Pacemaker/ICD, Hx Peripheral Vascular Disease Respiratory History: Reports: Hx Pleural Effusion Denies: Hx Chronic Obstructive Pulmonary Disease (COPD) - PT DENIES, Hx Pneumonia GI History: Reports: Hx Diverticulosis, Hx Gastroesophageal Reflux Disease, Hx Ulcer History: Reports: Hx Chronic Renal Failure, Hx Dialysis - PD, Hx Kidney Infection, Hx Renal Disease - ESRD, polycystic kidney disease, Other Problems /Disorders - polycystic kidney Denies: Hx Kidney Stones Musculoskeletal History: Reports: Hx Rheumatoid Arthritis, Hx Back Problems, Other Musculoskeletal History - LEFT HIP FX Denies: Hx Arthritis, Hx Osteoporosis Sensory History: Reports: Hx Contacts or Glasses - reading glasses only Denies: Hx Cataracts, Hx Glaucoma, Hx Deafness, Hx Hearing Aid, Hx Hearing Problem Opthamlomology History: Reports: Hx Contacts or Glasses - reading glasses only Denies: Hx Cataracts, Hx Glaucoma Neurological History: Reports: Hx CVA, Other Neuro Impairments/Disorders - brain aneurism Psychiatric History: Reports: Hx Anxiety, Hx Depression Denies: Hx Panic Disorder, Hx Post Traumatic Stress Disorder, Other Psychiatric Issues/Disorders - Cancer History Hx Chemotherapy: No - Surgical History Surgery Procedure, Year, and Place: dialysis port x2 Hx Anesthesia Reactions: No - Immunization History Date of Tetanus Vaccine: Unknown Infectious Disease History: No Infectious Disease History: Denies: Traveled Outside the [place] in Last 30 Days - Family History Known Family History: Negative: Cardiac Disease, Hypertension, Diabetes - Social History Lives: With Family Alcohol Use: None Hx Substance Use: No Substance Use Type: Reports: None Hx Tobacco Use: Yes Smoking Status (MU): Former Smoker Type: Cigarettes Amount Used/How Often: not much, only while in college Have You Smoked in the Last Year: No Review of Systems Negative: Fever Positive: Other - long laceration over left leg, abrasion on lip, ecchymosis on chest All Other Systems Reviewed And Are Negative: Yes Physical Exam - Summary Physical Exam Summary: VITAL SIGNS: Reviewed. GENERAL: Patient is an elderly-looking, far more than her age implies, female who is lying comfortable in the stretcher. Patient is not in any acute respiratory distress. HEAD AND FACE: No signs of trauma. No ecchymosis, hematomas or skull depressions. No sinus tenderness. EYES: PERRLA, EOMI x 2, No injected conjunctiva, no nystagmus. EARS: Hearing grossly intact. Ear canals and tympanic membranes are within normal limits. MOUTH: Oropharynx within normal limits. NECK: Supple, trachea is midline, no adenopathy, no JVD, no carotid bruit, no c- spine tenderness, neck with full ROM. CHEST: Symmetric, no tenderness at palpation LUNGS: Clear to auscultation bilaterally. No wheezing or crackles. CVS: Regular rate and rhythm, S1 and S2 present, no murmurs or gallops appreciated. ABDOMEN: Soft, non-tender. No signs of distention. No rebound no guarding, and no masses palpated. Bowel sounds are normal. EXTREMITIES: Bilateral lower extremety edema +2-3. Laceration all the way from proximal left leg, just below knee to distal left leg just above ankle. Deep to muscle free flap, patient has another laceration next to that one. Minimal bleeding NEURO: Alert and oriented x 3. No acute neurological deficits. Speech is normal and follows commands. SKIN: Dry and warm Triage Information Reviewed: Yes Vital Signs On Initial Exam: Initial Vitals Temp Pulse Resp BP Pulse Ox 98.5 F 76 18 132/78 94 09/13/17 21:33 09/13/17 21:33 09/13/17 21:33 09/13/17 21:33 09/13/17 21:33 Vital Signs Reviewed: Yes Procedures - Laceration/Wound Repair 1 Location: lower extremity - left Description: Irregular Anesthesia: 2.0%, Lido Betadine Prep?: No Irrigated w/ Saline (ccs): 500 Laceration/Wound Explored: clean Closure: SteriStrips, Brissa #__ - 15 Debridement: minimal Suture Type: Other - brissa Layer Closure?: No Sterile Dressing Applied?: Yes - zero form, bacitracin Diagnostics - Vital Signs Vital Signs Temp Pulse Resp BP Pulse Ox 09/13/17 21:33 98.5 F 76 18 132/78 94 - Laboratory Result Diagrams: 09/13/17 22:10 09/13/17 22:10 Lab Statement: Any lab studies that have been ordered have been reviewed, and results considered in the medical decision making process. - CT CT Head CT Interpretation: Positive (See Comments) - CT Head reveals, per radiologist, IMPRESSION: No hemorrhage. Bilateral low density focus in the left posterior basal ganglia of indeterminant age. No shift or herniation. ED physician has reviewed this radiology report. CT Interpretation Completed By: Radiologist Laceration Repair Course/Dx - Course Course Of Treatment: This patient is a 57 year old female BIBA to [facility] accompanied by son with a chief complaint of left leg laceration [employer]. Patient states that she was carrying her dialysis bag when she slipped and scrapped her left leg on her trash can. Skin edges approximated as much as possible. Patient has very thin skin at places. Bacitracin applied, Zero form applied. Wound wrapped with heavy dressing and jayden bandages. CT Head reveals, per radiologist, IMPRESSION: No hemorrhage. Bilateral low density focus in the left posterior basal ganglia of indeterminant age. No shift or herniation. ED physician has reviewed this radiology report. Bloodwork Obtained. Test results with no significant abnormalities. In the ED course the patient was given Tdap, Zofran, Morhpine, Lidocaine, cefazolin. We discussed patient care with Dr. Chavis ( Hospitalist) and they agreed to admit the patient. Patient will be admitted to the hospital with a diagnosis of large left leg laceration and difficulty ambulating. The patient is agreeable with this plan. - Clinical Impression Provider Diagnoses: Laceration of left leg, Increased weakness when ambulating - Physician Notifications Discussed Care Of Patient With: Richie Chavis - Hospitalist Time Discussed With Above Provider: 00:35 - We discussed patient care with Dr. Chavis (Hospitalist) and they agreed to admit the patient. Instructed by Provider To: Admit As Inpatient Discharge - Sign-Out/Discharge Documenting (check all that apply): Discharge - admitted - Discharge Plan Condition: Stable Disposition: ADMITTED TO [facility] Referrals: Letty Duffy MD [Primary Care Provider] - The documentation as recorded by the Umesh woods Tecjoon accurately reflects the service I personally performed and the decisions made by , Sanjuanita High MD.
[2017-09-14] MEDS ORDERED: Loperamide CAP* 2 MG PO PRN (02:33)
[2017-09-14] MEDS ORDERED: LORazepam TAB(*) 1 MG PO PRN (02:33)
[2017-09-14] MEDS: Acetaminophen TAB* 325 MG PO PRN ×2 (02:37→10:27)
[2017-09-14] MEDS ORDERED: Sevelamer TAB* 800 MG PO PRN (03:00)
[2017-09-14] MEDS: Morphine INJ* 2 MG/ML 1 ML CARPUJECT IV PRN ×2 (03:27→07:11)
--- NOTE | 2017-09-14 07:19 | RAD ---
INDICATION: Head injury. COMPARISON: Comparison is made with prior CT of the brain from March 05, 2017. TECHNIQUE: Contiguous axial sections of the brain were obtained from the skull base to the vertex without contrast. FINDINGS: The ventricles, cisterns and sulci are within normal limits. There are several small hypodense areas present within the periventricular white matter bilaterally, anterior limb of the internal capsule on the left side and within the left lentiform nucleus which appear old most consistent with old lacunar infarcts. There is a new area of decreased relatively low density present in the posterior aspect of the left external capsule also most consistent with a lacunar infarct age-indeterminate although likely subacute to chronic. No hemorrhage or mass effect is seen. Note is made of chronic calcifications along the tentorium. Soft tissue swelling is noted in the scalp anterior to the frontal bones. No fracture is seen. There is mild mucosal thickening within the visualized portion of the maxillary sinuses. The paranasal sinuses and mastoid air cells otherwise appear clear. IMPRESSION: 1. NO EVIDENCE FOR ACUTE INTRACRANIAL ABNORMALITY. 2. FINDINGS MOST CONSISTENT WITH MULTIPLE OLD LACUNAR TYPE INFARCTS. THERE IS ONE NEW INFARCT PRESENT ON THE LEFT SIDE COMPARED WITH THE PRIOR STUDY.
[2017-09-14 08:26] VITALS: BP 157/93
--- NOTE | 2017-09-14 08:27 | PN ---
Subjective Date of Service: 09/14/17 Interval History: Mrs. Charles was admitted for observation last night after she sustained a fall at home. She tripped holding a dialysis solution bag and fell on her left side. She was brought to the ED, found to have a laceration of her left leg and lower lip. Head CT was negative for acute process. She had her laceration repaired in ED, had some difficulty ambulating afterwords due to pain. This morning, she a lot more comfortable. Has been ambulating using her walker, which she does at home as well. Denies any headaches, chest pain, palpitaions or blurred vision. She would like to go home later this morning. Family History: Unchanged from Admission Social History: Unchanged from Admission Past Medical History: Unchanged from Admission Objective Active Medications: Acetaminophen (Tylenol Tab*) 650 mg PO Q4H PRN PRN Reason: FEVER/HEADACHE Last Admin: 09/14/17 02:37 Dose: 650 mg Calcitriol (Rocaltrol Cap*) 0.25 mcg PO DAILY [facility] Carvedilol (Coreg Tab*) 25 mg PO BID GUY Ferrous Sulfate (Ferrous Sulfate Tab*) 325 mg PO BID GUY Loperamide HCl (Imodium Cap*) 2 mg PO .SEE DIRECTIONS PRN PRN Reason: DIARRHEA Lorazepam (Ativan Tab(*)) 2 mg PO Q6HR PRN PRN Reason: ANXIETY Morphine Sulfate (Morphine Inj (Syringe)*) 2 mg IV Q3H PRN PRN Reason: PAIN Last Admin: 09/14/17 07:11 Dose: 2 mg Ondansetron HCl (Zofran Inj*) 4 mg IV Q6H PRN PRN Reason: NAUSEA Sertraline HCl (Zoloft*) 50 mg PO DAILY [facility] Sevelamer Carbonate (Renvela Tab*) 4,000 mg PO .SEE COMMENT PRN PRN Reason: WITH SNACKS Sevelamer Carbonate (Renvela Tab*) 4,000 mg PO TID WITH MEALS [facility] Vital Signs - 8 hr 09/14/17 09/14/17 09/14/17 03:00 03:03 03:09 Temperature 97.4 F 98.9 F 97.4 F Pulse Rate 74 76 74 Respiratory 18 18 18 Rate Blood Pressure 163/81 138/76 163/81 (mmHg) O2 Sat by Pulse 95 98 95 Oximetry 09/14/17 09/14/1709/14/18 03:27 03:49 03:50 Temperature Pulse Rate Respiratory 18 16 18 Rate Blood Pressure (mmHg) O2 Sat by Pulse Oximetry 09/14/17 09/14/17 07:11 07:15 Temperature Pulse Rate Respiratory 16 16 Rate Blood Pressure (mmHg) O2 Sat by Pulse Oximetry Oxygen Devices in Use Now: None Appearance: Awke, alert and oriented, Appears comfortable in bed, left leg elevated on a pillow, in NAD. Eyes: No Scleral Icterus, PERRLA Ears/Nose/Mouth/Throat: Mucous Membranes Moist, - - A small lower lip laceration with a dry scab noted. Minimal surrounding ecchymosis, No active bleeding. No loose teeth or other injuries. Neck: NL Appearance and Movements; NL JVP, Trachea Midline Respiratory: Symmetrical Chest Expansion and Respiratory Effort, Clear to Auscultation Cardiovascular: NL Sounds; No Murmurs; No JVD, RRR Abdominal: NL Sounds; No Tenderness; No Distention Extremities: - - Left lower extrimity with a clean and dry ANOTNIO wrap. A small area on ecchymosis on dorsal aspect of foot. Pedal pulse intact. Sensation intact. Neurological: Alert and Oriented x 3, NL Muscle Strength and Tone Nutrition: Taking PO's Result Diagrams: 09/13/17 22:10 09/13/17 22:10 Diagnostic Imaging: Patient Name: EDWARDO CHARLES Medical Record#: [id number] Ordering Physician: Sanjuanita High MD Acct.#: [id number] : 1960 Age: 57 Sex: F Location: SURGICAL STAY UNIT Exam Date: 09/13/172302 ADM Status: ADM Mago Order Information: CT BRAIN WO Accession Number: [id number] CPT: 57460 INDICATION: Head injury. IMPRESSION: 1. NO EVIDENCE FOR ACUTE INTRACRANIAL ABNORMALITY. 2. FINDINGS MOST CONSISTENT WITH MULTIPLE OLD LACUNAR TYPE INFARCTS. THERE IS ONE NEW INFARCT PRESENT ON THE LEFT SIDE COMPARED WITH THE PRIOR STUDY. Assess/Plan/Problems-Billing Assessment: A 57 y/o female who sustained a left leg laceration after tripping and falling at home last night, with hx CVA, ESRD on PD, HTN and anemia of chronic disease, who was admitted for pain control, doing much better this morning. - Patient Problems (1) Laceration of leg not thigh, left Current Visit: Yes Status: Acute Comment: Laceration repaired by primary closure in ED Dressing changed and advised to keep leg elevated as much as possible Plan to F/U with wound clinic to reassess and remove china when indicated. (2) End stage renal failure on dialysis Current Visit: Yes Comment: Will continue her peritoneal dialysis at home (3) Hypertension Current Visit: Yes Comment: Continue your beta blockers at home (4) Contusion, lip Current Visit: Yes Status: Acute Code(s): S00.531A - CONTUSION OF LIP, INITIAL ENCOUNTER SNOMED Code(s): 42876784 Comment: stable, will resolve with time (5) DVT prophylaxis Current Visit: Yes Status: Acute Code(s): XDV5519 - SNOMED Code(s): 191255215 Comment: Ambulate, SCD (6) Full code status Current Visit: Yes Status: Acute Code(s): Z78.9 - OTHER SPECIFIED HEALTH STATUS SNOMED Code(s): 369940935 Status and Disposition: Mrs. Charles has done well overnight. Her leg pain is tolerable. We went through discharge instructions in details. A Rx for Percocet was sent to her pharmacy to use as needed for pain. F/U plans with PCP and wound clinic arranged. She will be discharged to home today. Total time spent on her discharge today was 35 min.
[2017-09-14] MEDS: Sevelamer TAB* 800 MG PO SCH ×2 (08:39→12:58)
[2017-09-14] MEDS ORDERED: Sertraline* 50 MG TAB PO SCH (09:00)
[2017-09-14] MEDS ORDERED: Carvedilol TAB* 25 MG PO SCH (09:00)
[2017-09-14] MEDS ORDERED: Calcitriol CAP* 0.25 MCG PO SCH (09:00)
[2017-09-14] MEDS ORDERED: Ferrous Sulfate TAB* 325 MG PO SCH (09:00)
--- NOTE | 2017-09-14 10:10 | DS ---
AMENDED REPORT NOW INCLUDES COSIGNER DESIGNATION - ESIGNED BEFORE ADJUSTMENTS CC: Dr. Letty Duffy; Dr. Bianchi * DISCHARGE SUMMARY: DATE OF ADMISSION: 09/13/17 DATE OF DISCHARGE: 09/14/17 PATIENT OF: Dr. Emilie Hammond. ADMITTING PHYSICIAN: Dr. Richie Chavis. ATTENDING PHYSICIAN: Dr. Hammond.* (DICTATED BY CHRISSY CHRIS) ADMISSION DIAGNOSES: 1. Left leg laceration secondary to fall at home. 2. Hypertension. 3. End-stage renal disease, on peritoneal dialysis at home. 4. History of cerebrovascular accident. 5. Depression. DISCHARGE DIAGNOSES: 1. Left leg laceration secondary to fall at home. 2. Hypertension. 3. End-stage renal disease, on peritoneal dialysis at home. 4. History of cerebrovascular accident. 5. Depression. CONSULTATIONS: None. PROCEDURE: Laceration repair with primary closure in ED on 09/13/17. BRIEF MEDICAL HISTORY: Mrs. Charles is a pleasant 57-year-old female with a past medical history significant for end-stage renal disease for which he has been on peritoneal dialysis at home. She also has a history of hypertension, congestive heart failure, coronary artery disease, anxiety, depression, and anemia of chronic disease. She presented to the emergency room last night via ambulance accompanied by her son after she sustained a fall at home. She notes that she was carrying a heavy bag of her dialysis solution when she slipped and fell, scraping her left leg on a trash can. She sustained a laceration on the lateral aspect of her left leg as well as contusion on her left foot and left lower leg. She also suffered a blow to her face; however, she denies any headache, syncope, dizziness, or loss of consciousness. She had a head CT during her ED visit that was negative for any bleeding or acute process. She had primary closure of her laceration in the ED and she was all set to be discharged to home; however, she complained of difficulty ambulating and pain to the left leg for which she was kept in the hospital overnight for observation under the hospitalist service. HOSPITAL COURSE: The patient was admitted for observation. She was given morphine IV as needed for pain that she reports had helped her a lot. On the following morning, she was feeling much better with only mild discomfort in her left leg. She ambulated using her walker down the urena and she had no difficulty. Her laceration was examined, which extended from just below the knee to the distal left leg to just above the ankle and there was a total of 20 china as well as multiple Steri-Strips were present. There was mild edema noted and ecchymosis to the dorsal aspect of her leg. On exam, she had good pedal pulse and normal sensation and muscle strength. She denies any headache, chest pain and she was alert and oriented. We will plan on discharging her today and she will follow up with Dr. Duffy on Saturday as well as wound clinic to reassess her laceration repair and remove her china on a timely fashion. DISCHARGE MEDICATIONS: Her discharge medications include: 1. Acetaminophen 500 mg p.o. q.6 hours as needed for pain. 2. Calcitriol caps 1 tablet daily. 3. Coreg 25 mg p.o. b.i.d. 4. Ferrous sulfate 325 mg p.o. b.i.d. 5. Percocet 5/325 one tablet q.4 hours as needed for pain. 6. Imodium 2 mg p.o. as needed for diarrhea. 7. Lorazepam 1 mg q.6 hours as needed for anxiety. 8. Zofran 4 mg q.6 hours as needed for nausea. 9. Zoloft 50 mg p.o. daily. 10. Vitamin D 1 tablet p.o. daily. PROBLEM LIST: 1. Laceration of the left leg secondary to trip and fall at home. 2. Lower lip contusion. 3. Head trauma with no loss of consciousness and negative CT of the head. 4. End-stage renal disease, on peritoneal dialysis. 5. Hypertension, controlled. 6. Anxiety and depression. CHRISSY CHRIS [id number]/[facility] #: [id number] EL
--- NOTE | 2017-09-14 14:06 | HP ---
CC: Dr. Letty Duffy; Dr. Bianchi ADMISSION HISTORY AND PHYSICAL: DATE OF ADMISSION: 09/14/17 CHIEF COMPLAINT: Left leg laceration. HISTORY OF PRESENT ILLNESS: Ms. Charles is a 57-year-old woman with history of end-stage renal disease, who was carrying her peritoneal dialysis supplies at home when she tripped and fell lacerating her left leg and right forearm as well as striking her face. She did not have loss of consciousness, but she had heavy bleeding from her mouth and left leg and right arm. The patient was brought to the emergency room where she had the laceration on her left lower extremity sutured and hemostasis was obtained. At that point, the son was present and there was concern that the patient will not to be ambulatory at this time due to the large wound in her leg. The son states he cannot manage the patient at home and he will need help and equipment if she is not ambulatory. The patient does admit to pain in the left leg and right forearm and she does feel she cannot manage herself at home or ambulate safely. PAST MEDICAL HISTORY: Includes end-stage renal disease, on peritoneal dialysis ; polycystic kidney disease, underlying cause of the renal failure. She has hypertension, cardiomyopathy with ejection fraction of 35%. She has coronary artery disease with history of CT, history of stroke, and history of inflammatory arthropathy, as well as depression. PAST SURGICAL HISTORY: She has only had a peritoneal dialysis catheter placed in the past. She states she is scheduled for fistula surgery because she will be switching to hemodialysis. MEDICATIONS ON ADMISSION: 1. Acetaminophen 500 mg p.o. q.6 p.r.n. 2. Calcitriol 1 tab p.o. q. day. 3. Carvedilol 25 mg p.o. b.i.d. 4. Iron sulfate 325 mg p.o. b.i.d. 5. Hydrocodone/acetaminophen 10/325 one q.6 hours p.r.n. pain. 6. Loperamide 2 mg as needed. 7. Ativan 2 mg p.o. q.6 hours p.r.n. anxiety. 8. Zofran 4 mg p.o. q.6 hours p.r.n. nausea. 9. Sertraline 50 mg p.o. q. day. 10. Renvela 4000 mg p.o. with meals t.i.d. 11. Synthetic marijuana, unclear dosing. 12. Vitamin D 1 tab p.o. q. day. ALLERGIES: CODEINE and ADHESIVE TAPE. FAMILY HISTORY: Notable for father with polycystic kidney disease and father of CT. Mother had hypertension, but of Alzheimer's. SOCIAL HISTORY: She is disabled. She lives with her son, Rojelio, who is her healthcare proxy. She is . She has only the one son. She never smoked. No alcohol or drug use. REVIEW OF SYSTEMS: The patient denies any fevers, weight loss, anorexia. The patient denies any chest pain or palpitations. The patient denies any shortness of breath or cough. The patient fell due to mechanical tripping, not a syncope. Remainder of her 14-point review of systems is negative other than mentioned in the HPI. PHYSICAL EXAMINATION GENERAL: She is alert, in no acute distress. VITAL SIGNS: Temperature is 37.2, pulse 76, respirations 18, blood pressure is 138/76, O2 sat is 98%. HEENT: Head is normocephalic. There is trauma to the lips, more on the left than the right with edema and erythema, and blood in her lips. Extraocular muscles are intact. Pupils are equal, round, reactive to light and accommodation. Oropharynx: No broken teeth. Dry mouth. No lesions. NECK: No JVD. No carotid bruits. No thyromegaly. LUNGS: Clear to auscultation and percussion bilaterally. HEART: Regular rate and rhythm without murmurs or gallops. ABDOMEN: Soft, nontender, positive bowel sounds. No hepatosplenomegaly. EXTREMITIES: 1+ pitting edema bilaterally. NEUROLOGIC: Cranial nerves II through XII are intact. She can move all 4 extremities with equal power. She is alert and oriented x3. SKIN: Exam notable for gerardo skin color on her chest and face and arms. There is large laceration on the left lower extremity linearly that has been bandaged , with wounds. There is also small laceration on the right forearm and wrist, which has been bandaged as well. See the ER notes for further description of the wound closure. DIAGNOSTIC STUDIES/LAB DATA: Sodium 140, potassium 4.2, chloride 99, bicarb 31 , BUN 44, creatinine 7.46, glucose is 88, calcium 8.7. Albumin 2.4. AST 11, ALT 6, bilirubin 0.2. White count 8.3, hemoglobin 10.7, hematocrit of 33%, platelets are 201. Head CT is negative for infarct or bleed. ASSESSMENT AND PLAN: A 57-year-old woman with large laceration to the left lower extremity. Due to the pain control issues and trouble with ambulation, she needs observation in the hospital to titrate medications and give us time to arrange home care. At home, she will need wheelchair and aides to assist with ADLs. The patient has chronic trouble healing wounds due to her renal disease and edema and she likely needs the wound clinic arranged to help her with the healing of these large wounds as well. For her end-stage renal disease, she will continue on her peritoneal dialysis, but this will be skipped tonight and she can do it during the day tomorrow. She can bring her supplies from home or we can contact Dr. Bianchi if necessary tomorrow. Code status is full. DVT prophylaxis. SCDs will be contraindicated on her lower extremity due to the lacerations. She is at low risk for DVT given her age and lack of certain other comorbidities. We will try to get her to be mobile and possibly even ambulatory tomorrow, so DVT prophylaxis will be just early mobilization. [id number]/[facility] #: [id number] EL
== END 2017-09-14 15:45 | disposition home or self-care (01) ==
LOC: ED 21:26 → SSU 09-14 02:43
PROVIDERS: ADMIT Internal Medicine; ATTEND Internal Medicine
DX: S81.812A Laceration without foreign body, left lower leg, initial encounter (principal); N18.6 End stage renal disease; I10 Essential (primary) hypertension; S00.511A Abrasion of lip, initial encounter; W19.XXXA Unspecified fall, initial encounter; Y92.9 Unspecified place or not applicable; Z99.2 Dependence on renal dialysis; Z86.73 Personal history of transient ischemic attack (TIA), and cerebral infarction without residual deficits; F32.9 Major depressive disorder, single episode, unspecified; I25.10 Atherosclerotic heart disease of native coronary artery without angina pectoris; Z87.891 Personal history of nicotine dependence; R53.1 Weakness; S20.219A Contusion of unspecified front wall of thorax, initial encounter; I25.2 Old myocardial infarction
CPT/HCPCS: 12002; 36415; 70450; 80053; 85025; 86850; 86900; 86901; 90471; 90715; 96374; 96375; 99285; A9270-GY; G0378; J0690; J2270; J2405

== ENCOUNTER 2017-09-16 11:57 | Inpatient (IN) | payer MEDICARE, MEDICAID ==
[2017-09-16 12:41] LABS: ABS Basophils 0 10^3/ul (0-0.2); ABS Eosinophils 0.5 10^3/ul (0-0.6); ABS Lymphocytes 0.8 10^3/ul (1.0-4.8); ABS Monocytes 0.7 10^3/ul (0-0.8); ABS Nucleated RBC 0 10^3/ul; Eosinophil % 6.8 % (0-6); Hematocrit 30 % (35-47); Hemoglobin 9.7 g/dl (12.0-16.0); Lymphocyte % 11.9 % (25-47); Mean Corpuscular HGB Conc 33 g/dl (31-36); Mean Corpuscular Hemoglobin 29 pg (27-31); Mean Corpuscular Volume 90 fL (80-97); Mean Platelet Volume 7.8 um3 (7.4-10.4); Nucleated Red Blood Cells % 0; Platelet Count 183 10^3/ul (150-450); Red Blood Count 3.29 10^6/ul (4.0-5.4); Red Cell Distribution Width 16 % (10.5-15); White Blood Count 7.1 10^3/ul (3.5-10.8)
[2017-09-16 12:43] LABS: INR 0.9 (0.77-1.02)
[2017-09-16 13:03] LABS: EGFR Non-African American 5.6 (>60)
--- NOTE | 2017-09-16 13:08 | RAD ---
INDICATION: Left hip injury. COMPARISON: Comparison is made with a prior study from June 22, 2017. Correlation is also made with a CT of the abdomen and pelvis from June 30, 2017. TECHNIQUE: An AP view of the pelvis and frontal and lateral views of the left hip were obtained. FINDINGS: The bones are in normal alignment. There is lucency and deformity of the right iliac bone likely related to the fracture seen on the prior CT study. No acute fracture is seen. There is sclerosis within the femoral heads which is unchanged suggesting the possibility of avascular necrosis. There are also calcifications adjacent to the left greater trochanter suggestive of calcific tendinitis. There is mild bilateral osteoarthritic change in the hips. IMPRESSION: 1. NO EVIDENCE FOR ACUTE FRACTURE, IF THE PATIENT'S SYMPTOMS PERSIST RECOMMEND FOLLOW-UP IMAGING. 2. CHRONIC FRACTURE OF THE RIGHT ILIAC BONE. 3. SCLEROSIS WITHIN THE FEMORAL HEADS, UNCHANGED SUGGESTING THE POSSIBILITY OF AVASCULAR NECROSIS.
--- NOTE | 2017-09-16 13:09 | RAD ---
INDICATION: Knee pain COMPARISON: None TECHNIQUE: AP and crosstable lateral imaging was performed. The patient was not able to flex the knee were obtained. FINDINGS: No acute bony change is seen. The knee articulates normally. There is no effusion. There are vascular calcifications and there are surgical china about the lateral distal leg. IMPRESSION: NO ACUTE BONY CHANGE.
[2017-09-16] MEDS ORDERED: Ondansetron INJ* 2 MG/ML VIAL IV PRN (13:54)
[2017-09-16] MEDS ORDERED: Bacitracin OINTMENT* 0.5% 0.5 oz TUBE ONE (14:38)
--- NOTE | 2017-09-16 15:58 | RAD ---
INDICATION: Left hip pain after fall COMPARISON: Left hip same date; CT abdomen pelvis June 30, 2017 TECHNIQUE: Noncontrast axial source images were obtained from the iliac crests through the symphysis pubis. FINDINGS: There is osteopenia. There are no CT abnormalities of the bony pelvis. There is sclerosis and cystic change about both femoral heads and the acetabula consistent with degenerative osteoarthritis. Avascular necrosis is considered a less likely finding but not excluded. Relative to an earlier CT the findings are unchanged There is an old right iliac fracture. The SI joints and symphysis are intact. No uterine or adnexal mass is seen. No free fluid or adenopathy is seen. There is subcutaneous edema. There are extensive vascular calcifications. The noncontrast CT appearance of the bowel is remarkable for scattered diverticula. The superficial soft tissues appear normal. The bladder appears normal. There is a peritoneal dialysis catheter. IMPRESSION: NO ACUTE PELVIC FRACTURE. ARTHRITIC CHANGES ABOUT THE HIPS.
--- NOTE | 2017-09-16 16:03 | RAD ---
INDICATION: Left lower extremity laceration and hip pain after a fall COMPARISON: Same day CT of the pelvis dated September 16, 2017 TECHNIQUE: Noncontrast CT examination of the left lower leg.. Axial images were acquired and sagittal and coronal reformats were created and independently analyzed. FINDINGS: There is widespread infiltration of the subcutaneous tissue. Extending down the lateral margin of the thigh there is a subcutaneous fluid collection extending as far as the level of the knee joint. This fluid collection measures up to 2.1 x 6.3 cm in the axial plane. More inferiorly there are surgical skin china overlying the anterolateral proximal left lower leg, presumably the site of the reported laceration. There is coarse of this atherosclerotic calcification of the visualized distal superficial femoral artery extending into the popliteal and infrapopliteal arteries. There is no definite fracture or dislocation identified in the visualized bones. Degenerative changes at the ankle joint and knee joint include joint space narrowing. IMPRESSION: 1. Subcutaneous fluid collection overlying the distal lateral margin of the left thigh as described above. 2. No bony fracture or dislocation.
--- NOTE | 2017-09-16 16:04 | ED ---
Monet Morales Nilda, scribed for Walter Phillips MD on 09/16/17 at 1211 . Lower Extremity - HPI Summary HPI Summary: This patient is a 57 year old F BIBA with a chief complaint of constant worsening left leg pain and bruising since the morning of 09/14/18 after being seen in [facility] [place] (tripped). Pt came to ED 3 days ago with laceration to left leg s/p fall. Per medical records, laceration was stapled and pt was admitted [place] [facility] due to pain with ambulation. Pt was D/C that afternoon after ambulating in hallway, but since then pain has worsened. Pt states she did not receive imaging of leg. The patient rates the pain 7/10 in severity. Symptoms aggravated by movement and palpation, and alleviated by pain medications. - History of Current Complaint Stated Complaint: LOWER LT EXTREMITY PAIN Time Seen by Provider: 09/16/17 11:59 Hx Obtained From: Patient, Medical Records Mechanism Of Injury: Other - Tripped and fall Onset of Pain: Immediate Onset/Duration: Days Severity Currently: Severe Pain Intensity: 7 Pain Scale Used: 0-10 Numeric Timing: Constant Location: Is Discrete @ - left leg Associated Signs And Symptoms: Positive: Bruising, Knee Pain, Other - pain with ROM Aggravating Factor(s): Ambulation, Movement, Other - palpation Alleviating Factor(s): Other - pain medications - Allergies/Home Medications Allergies/Adverse Reactions: Allergies Allergy/AdvReac Type Severity Reaction Status Date / Time Adhesive Tape Allergy Hives Verified 09/16/17 12:02 codeine Allergy GI Upset Verified 09/16/17 12:02 Home Medications: Home Medications Aliskiren TAB* [Tekturna TAB*] 300 mg PO DAILY 09/16/17 [History Confirmed 09/16] Aspirin EC TAB* [Ecotrin EC Low Dose 81 MG*] 81 mg PO DAILY 09/16/17 [History Confirmed 09/16/17] Calcitriol CAP* [Rocaltrol CAP*] 0.25 mcg PO DAILY 09/16/17 [History Confirmed 09/16/17] Etanercept SYR (NF) [Enbrel (NF)] 25 mg SUBCUT Q7D 09/16/17 [History Confirmed 09/16/17] PMH/Surg Hx/FS Hx/Imm Hx Endocrine/Hematology History: Reports: Hx Anemia - gets epogen shot Denies: Hx Blood Disorders, Hx Blood Transfusions, Hx Bone Marrow Disease, Hx Diabetes, Hx Systemic Lupus Erythematosus, Hx Thyroid Disease, Hx Unexplained Bleeding Cardiovascular History: Reports: Hx Aneurysm, Hx Congestive Heart Failure, Hx Coronary Artery Disease, Hx Hypercholesterolemia, Hx Hypertension, Other Cardiovascular Problems/Disorders - CAD, [place] Denies: Hx Pacemaker/ICD, Hx Peripheral Vascular Disease Respiratory History: Reports: Hx Pleural Effusion Denies: Hx Chronic Obstructive Pulmonary Disease (COPD) - PT DENIES, Hx Pneumonia, Hx Pulmonary Edema, Hx Pulmonary Embolism, Hx Seasonal Allergies, Hx Sleep Apnea GI History: Reports: Hx Diverticulosis, Hx Gastroesophageal Reflux Disease, Hx Ulcer History: Reports: Hx Chronic Renal Failure, Hx Dialysis - PD, Hx Kidney Infection, Hx Renal Disease - ESRD, polycystic kidney disease, Other Problems /Disorders - polycystic kidney Denies: Hx Kidney Stones Musculoskeletal History: Reports: Hx Arthritis, Hx Rheumatoid Arthritis, Hx Back Problems, Other Musculoskeletal History - LEFT HIP FX Denies: Hx Osteoporosis Sensory History: Reports: Hx Contacts or Glasses - reading Denies: Hx Cataracts, Hx Eye Injury, Hx Eye Prosthesis, Hx Glaucoma, Hx Legally Blind, Hx Macular Degeneration, Hx Vision Problem, Hx Deafness, Hx Hearing Aid, Hx Hearing Problem Opthamlomology History: Reports: Hx Contacts or Glasses - reading Denies: Hx Cataracts, Hx Eye Injury, Hx Eye Prosthesis, Hx Glaucoma, Hx Legally Blind, Hx Macular Degeneration, Hx Vision Problem Neurological History: Reports: Hx CVA, Other Neuro Impairments/Disorders - brain aneurism x5 per pt Denies: Hx Dementia, Hx Developmental Delay, Hx Headaches, Hx Migraine, Hx Nerve Disease, Hx Seizures Psychiatric History: Reports: Hx Anxiety, Hx Depression Denies: Hx Panic Disorder, Hx Post Traumatic Stress Disorder, Other Psychiatric Issues/Disorders - Cancer History Hx Chemotherapy: No - Surgical History Surgery Procedure, Year, and Place: dialysis port x2 Hx Anesthesia Reactions: No - Immunization History Date of Tetanus Vaccine: Unknown Infectious Disease History: No Infectious Disease History: Denies: Hx Tuberculosis, Traveled Outside the [place] in Last 30 Days - Family History Known Family History: Negative: Cardiac Disease, Hypertension, Diabetes - Social History Alcohol Use: None Hx Substance Use: No Substance Use Type: Reports: None Hx Tobacco Use: Yes Smoking Status (MU): Former Smoker Type: Cigarettes Amount Used/How Often: not much, only while in college Have You Smoked in the Last Year: No Review of Systems Positive: Decreased ROM, Other - left leg pain Positive: Bruising All Other Systems Reviewed And Are Negative: Yes Physical Exam - Summary Physical Exam Summary: Appearance: The patient is well-nourished in no acute distress and in no acute pain. Skin: The skin is warm and dry and skin color reflects adequate perfusion. HEENT: The head is normocephalic and atraumatic. The pupils are equal and reactive. The conjunctivae are clear and without drainage. Nares are patent and without drainage. Mouth reveals moist mucous membranes and the throat is without erythema and exudate. The external ears are intact. The ear canals are patent and without drainage. The tympanic membranes are intact. Neck: the neck is supple with full range of motion and non-tender. There are no carotid bruits. There is no neck vein distension. Respiratory: Chest is non-tender. Lungs are clear to auscultation and breath sounds are symmetrical and equal. Cardiovascular: Heart is regular rate and rhythm. There is no murmur or rub auscultated. Abdomen: The abdomen is soft and non-tender. There are normal bowel sounds heard in all four quadrants and there is no organomegaly palpated. Musculoskeletal: There is no back tenderness noted. There is good capillary refill. Tender to any palpation and ROM of left leg. Left knee is a little swollen and warm to the touch. She has ecchymosis over posterior lateral aspect of the left thigh. Her bilat feet are swollen and difficult to get pulses but they're palpable. Neurological: Patient is alert and oriented to person, place and time. Cranial nerves are grossly intact. She slurs her speech and falls asleep if unattended for more than a couple of seconds. Psychiatric: The patient has an appropriate affect and does not exhibit any anxiety or depression. Triage Information Reviewed: Yes Vital Signs On Initial Exam: Initial Vitals Temp Pulse Resp BP Pulse Ox 98.4 F 78 16 155/83 96 09/16/17 11:59 09/16/17 11:59 09/16/17 11:59 09/16/17 11:59 09/16/17 11:59 Vital Signs Reviewed: Yes Diagnostics - Vital Signs Vital Signs Temp Pulse Resp BP Pulse Ox 09/16/17 11:59 98.4 F 78 16 155/83 96 - Laboratory Lab Results: Lab Results 09/16/17 09/16/17 09/16/17 Range/Units 12:28 12:28 12:28 WBC 7.1 (3.5-10.8) 10^3/ul RBC 3.29 L (4.0-5.4) 10^6/ul Hgb 9.7 L (12.0-16.0) g/dl Hct 30 L (35-47) % MCV 90 (80-97) fL MCH 29 (27-31) pg MCHC 33 (31-36) g/dl RDW 16 H (10.5-15) % Plt Count 183 (150-450) 10^3/ul MPV 7.8 (7.4-10.4) um3 Neut % (Auto) 70.5 (38-83) % Lymph % (Auto) 11.9 L (25-47) % Hernando % (Auto) 10.1 H (0-7) % Eos % (Auto) 6.8 H (0-6) % Baso % (Auto) 0.7 (0-2) % Absolute Neuts (auto) 5.0 (1.5-7.7) 10^3/ul Absolute Lymphs (auto) 0.8 L (1.0-4.8) 10^3/ul Absolute Monos (auto) 0.7 (0-0.8) 10^3/ul Absolute Eos (auto) 0.5 (0-0.6) 10^3/ul Absolute Basos (auto) 0 (0-0.2) 10^3/ul Absolute Nucleated RBC 0 10^3/ul Nucleated RBC % 0 INR (Anticoag Therapy) 0.90 (0.77-1.02) Sodium 136 L (139-145) mmol/L Potassium 4.1 (3.5-5.0) mmol/L Chloride 97 L (101-111) mmol/L Carbon Dioxide 30 (22-32) mmol/L Anion Gap 9 (2-11) mmol/L BUN 46 H (6-24) mg/dL Creatinine 7.48 H (0.51-0.95) mg/dL Est GFR ( Amer) 7.2 (>60) Est GFR (Non-Af Amer) 5.6 (>60) BUN/Creatinine Ratio 6.1 L (8-20) Glucose 92 (70-100) mg/dL Calcium 8.9 (8.6-10.3) mg/dL Total Bilirubin 0.20 (0.2-1.0) mg/dL AST 10 L (13-39) U/L ALT < 3 L (7-52) U/L Alkaline Phosphatase 51 (34-104) U/L C-Reactive Protein 93.21 H (< 5.00) mg/L Total Protein 5.0 L (6.4-8.9) g/dL Albumin 2.3 L (3.2-5.2) g/dL Globulin 2.7 (2-4) g/dL Albumin/Globulin Ratio 0.9 L (1-3) Result Diagrams: 09/16/17 12:28 09/16/17 12:28 Lab Statement: Any lab studies that have been ordered have been reviewed, and results considered in the medical decision making process. - Radiology Knee XR Radiology Interpretation Completed By: Radiologist - Knee XR, per radiologist, reveals no acute bony change. Dr. Phillips has reviewed this radiology report. Hip XR Radiology Interpretation Completed By: Radiologist - Hip XR, per radiologist, reveals 1. NO EVIDENCE FOR ACUTE FRACTURE, IF THE PATIENT'S SYMPTOMS PERSIST RECOMMEND FOLLOW-UP IMAGING. 2. CHRONIC FRACTURE OF THE RIGHT ILIAC BONE. 3. SCLEROSIS WITHIN THE FEMORAL HEADS, UNCHANGED SUGGESTING THE POSSIBILITY OF AVASCULAR NECROSIS. Dr. Phillips has reviewed this radiology report. Re-Evaluation - Re-Evaluation First Eval Re-Evaluation Time: 13:15 Comment: Reviewed labs and imaging with pt as well as admission plan. Lower Extremity Course/Dx - Course Course Of Treatment: Ms. Charles presented with severe pain in her left leg from the fall two days ago. She had walked on it with a walker prior to D/C on Saturday but it has gotten gradually worse. The wound is clean and she is very tender over her knee, femur and hip. She is a bit somnolent I suspect from pain medications. I don't think she can take care of herself at home at this point and have asked the hospitalist service to see her. Assessment/Plan: Knee XR, per radiologist, reveals no acute bony change. Dr. Phillips has reviewed this radiology report. Hip XR, per radiologist, reveals 1. NO EVIDENCE FOR ACUTE FRACTURE, IF THE PATIENT'S SYMPTOMS PERSIST RECOMMEND FOLLOW-UP. IMAGING. 2. CHRONIC FRACTURE OF THE RIGHT ILIAC BONE. 3. SCLEROSIS WITHIN THE FEMORAL HEADS, UNCHANGED SUGGESTING THE POSSIBILITY OF AVASCULAR. NECROSIS. Dr. Phillips has reviewed this radiology report. - Diagnoses Provider Diagnoses: Intractable pain - Physician Notifications Discussed Care Of Patient With: Jet Bianchi - Nephrology Time Discussed With Above Provider: 13:08 Instructed by Provider To: Other - Dr. Bianchi recommended admission and shelter placement and hemodialysis. Discharge - Sign-Out/Discharge Documenting (check all that apply): Discharge - Admit - Discharge Plan Condition: Stable Disposition: ADMITTED TO [facility] Referrals: Letty Duffy MD [Primary Care Provider] - - Billing Disposition and Condition Condition: STABLE [place]position[place] [facility] The documentation as recorded by the Monet woods Nilda accurately reflects the service I personally performed and the decisions made by Alan hutchins Richard L, MD.
[2017-09-16] MEDS: Heparin VIAL(*) 5000 UNITS/ML VIAL (FIVE THOUSAND) SUBCUT SCH ×2 (16:22→22:17)
--- NOTE | 2017-09-16 16:28 | HP ---
CC: Dr. Letty Duffy; Dr. Bianchi; Dr. Maxwell; Dr. Phillips * HISTORY AND PHYSICAL: DATE OF ADMISSION: 09/16/17 PRIMARY CARE PROVIDER: Dr. Letty Duffy. CONSULTING PARAPLANNER: Dr. Bianchi. CONSULTING INTERVENTIONAL RADIOLOGIST: Dr. Maxwell. ATTENDING PHYSICIAN WHILE IN THE HOSPITAL: Dr. Brigitte Patel * (report dictated by Audie Duffy NP) CONSULTING SURGEON: Dr. Phillips. CHIEF COMPLAINT: 1. Fall. 2. Pain. 3. Altered mental status. HISTORY OF PRESENT ILLNESS: Ms. Charles is a 57-year-old female patient, who is just discharged over the weekend on Saturday. She came in initially on 09/14, she says that she was carrying her dialysis bag up 2 stairs when one of the bag slipped, it caused her to lose her balance. She fell in which she caught her leg on the stair. She had a significant wound to the left lower extremity. She came into the ER that night, it was stapled and approximated in the ER. Unfortunately, her pain was not well controlled and she was admitted under observation for pain control that night. The next morning, she was up, she says she walked with a walker. She went home, but unfortunately at home, she was taking her Percocet every 4 hours. She says that she was having more pain particularly now in the hip. It was not as much over the laceration, although anytime she tried to walk, she could not, she needed help getting up out of her couch. She was having difficulty and trouble. She could not really manage at home and it was also noted that she was becoming more drowsy, lethargic, she was not acting herself, and there was concern and EMS was summoned and she was brought into the hospital. Because of the altered mental status and worsening pain, we were asked to evaluate for admission. PAST MEDICAL HISTORY: Significant for: 1. End-stage renal disease, she is on peritoneal dialysis. 2. Polycystic kidney disease. 3. Hypertension. 4. Cardiomyopathy with EF less than 30%. 5. CAD. 6. NH. 7. CVA. 8. Rheumatoid arthritis. 9. Depression. PAST SURGICAL HISTORY: She has had a PD catheter placement, she is scheduled for an AV fistula for HD. MEDICATIONS: Home meds according to the list provided include: 1. Enbrel 25 mg subcu every 7 days. 2. Percocet 1 tablet every 4 hours as needed. 3. Zoloft 50 mg daily. 4. Ativan 2 tablets every 6 hours as needed. 5. Carvedilol 25 mg p.o. b.i.d. 6. Calcitriol 0.25 mcg p.o. daily. 7. Tekturna 300 mg p.o. daily. 8. Aspirin 81 mg a day. ALLERGIES TO MEDICATIONS: Include TAPE and CODEINE. FAMILY HISTORY: Her mother had a history of hypertension, dementia. Father had a history of end-stage renal disease. SOCIAL HISTORY: The patient does not smoke, does not drink. Surrogate decision maker at this point is her son. REVIEW OF SYSTEMS: There is no documented fever. She denied having any significant weight change. She denies having any double vision. There is no ear discharge. Denies having any abdominal pain. There is no nausea. She denies having any vomiting. There is no dysuria, no frequency. There was no seizure, no loss of consciousness. No pruritus. She does admit to having a large open skin wound to the left lower extremity, but no purulent drainage or erythema was noted to her knowledge there. Again, there was no loss of consciousness and no seizure- like activity. Review of 14 systems completed, all others negative. PHYSICAL EXAMINATION GENERAL: At this time, Ms. Charles is a 57-year-old female patient. She is sitting in the ED stretcher. She does appear to be older than stated age, does not appear to be in any acute distress. VITAL SIGNS: Blood pressure 155/83, pulse 78, respirations 16, O2 sat 96%, and temperature 98.4. HEENT: Head: Atraumatic, normocephalic. Eyes: EOMs are intact. Sclerae anicteric and not pale. Throat: Oral mucosa appears to be moist. No oropharyngeal erythema. NECK: Supple. LUNGS: Clear to auscultation bilaterally. No wheezes, rales, or rhonchi. HEART: Sounds S1 and S2. Regular rate and rhythm. No murmurs, rubs, or gallops. ABDOMEN: Soft, it was flat, nontender. She does have a PD catheter in site, there is no erythema or purulent discharge from that site. EXTREMITIES: Pulses were 2+ throughout. Sensation is intact bilaterally. She does have +2 pitting edema bilaterally. She does have a large wound to the left lower extremity extending basically just below her knee just to above her ankle. It is now stapled and approximated. Otherwise, her skin is intact. She does have multiple ecchymotic areas. NEUROLOGIC: She is drowsy. She does fall asleep during my interview but she does awaken to her name and to just tactile stimuli. She is oriented x3. Windows Technical Specialist are equal, tongue midline. No gross focal deficits. Speech was clear. SKIN: Again, grossly intact with the exception of the aforementioned skin laceration and she has multiple areas of ecchymosis. DIAGNOSTIC STUDIES/LAB DATA: Her labs today, WBC of 7.1, RBC of 3.29, hemoglobin 9.7, hematocrit of 30, platelet count of 183. INR 0.90. Sodium 136 , potassium 4.1, chloride 97, bicarb 30, BUN 46, creatinine 7.48, glucose 92, calcium 8.9. Total bili 0.2, AST 10, ALT less than 3, alk phos 51. CRP 93. Albumin is 2.3. She did have a hip pelvis x-ray obtained today, impression: No evidence of acute fracture, if symptoms persist, recommend followup imaging. Chronic fracture of the right iliac bone, sclerosis within the femoral head is unchanged , suggesting the possibility of avascular necrosis. She had a knee x-ray as well today, no active disease. EKG shows normal sinus rhythm with rate of 76. The patient's previous EKG appears to be similar. She does have inverted T waves in V4, V5, and V6 along with II, III, and aVF, which she has had previously, no significant changes. She did have a CT brain when she was here a few days ago, showed no evidence for acute intracranial abnormality. She had multiple old lacunar infarcts. Old medical records were reviewed. ASSESSMENT AND PLAN: Ms. Charles is a 57-year-old female patient coming into the emergency department today with complaints of fall a few days ago and on evaluation now noted to be altered and still having significant amount of left lower extremity pain particularly at the hip. We were asked to evaluate for admission. She will be admitted under inpatient status for: 1. Altered mental status. I suspect this is really the polypharmacy, she is on as needed Percocet every 4 hours. I am going to hold this medication to allow the medication to wear off, which may take some time because of the renal disease, but she does awaken appropriately, she is breathing appropriately. She had no gross focal deficits. She appears to be stable. We will get neuro checks for her every 4 hours and we will continue to follow. 2. End-stage renal disease. Again, I did touch base with Dr. Bianchi, he is following. He will like to try to place a hemodialysis tunneled catheter, which I did touch base with Dr. Maxwell. He will be performing hopefully tomorrow. The patient will be n.p.o. after midnight. Her coagulation studies were stable. I will continue her medications as prescribed. I did discuss with the patient about the peritoneal dialysis, she is not having any cloudy dialysate when she exchanges. 3. Hypertension. Continue meds as prescribed. 4. Left lower extremity wound. I did touch base with the surgical team. I left a message for Dr. Phillips to evaluate. I also placed a Wound Care consult. We will continue with current dressings with daily changes and we will continue to monitor. She does not appear to have active infection. 5. History of coronary artery disease and myocardial infarction. Continue beta samira and aspirin. 6. Rheumatoid arthritis. I am going to hold the Enbrel for now. 7. Cerebrovascular accident. Continue with secondary prevention. 8. Depression. Continue with supportive care. 9. Social issues. The patient is having a hard time managing at home. We will get Social Work involved as she is probably going to need some placement. 10. Continued left hip pain. I am going to CT the lower extremity and we will follow with this. If there are any fractures, we will get Orthopedics involved. 11. Cardiomyopathy. Again, we will continue with her dialysis. 12. DVT prophylaxis. She is high risk. She will be placed on heparin subcu. 13. Code status. Full code. 14. Fluids, electrolytes, and nutrition. She can have a renal diet. TIME SPENT: On the admission, 60 minutes, greater than half that time was spent [id number] with the patient obtaining my history and physical, other half the time spent going over the plan of care with the patient and implementing the plan of care. I did discuss the plan of care with my attending, Dr. Patel; she is in agreement. AUDIE DUFFY, SNEHA [id number]/[facility] #: [id number] EL
--- NOTE | 2017-09-16 19:04 | CONS ---
CC: [facility]; Dr. Jet Bianchi; Dr. Letty Duffy, [facility] * CONSULTATION REPORT: DATE OF CONSULT: 09/16/17 REFERRING PROVIDER: Audie Duffy NP, hospitalist. REASON FOR CONSULT: Left leg laceration. HISTORY OF PRESENT ILLNESS: Ms. Beth Charles is a 57-year-old woman with a history of end-stage renal disease, who is on peritoneal dialysis, who was carrying a heavy dialysis bag when fell and lacerated her left leg between knee and ankle this past Saturday. She also had hit her face and right pelaez. She denied loss of consciousness, but noted some bleeding and she was here in the emergency room, where she had the laceration of her left lower extremity sutured and dressed. At that time, she was admitted for observation overnight. Further radiology studies were all unremarkable for fracture. She was discharged home on Saturday, but presented back to the emergency room today with mental status changes and increased discomfort and inability to care for herself and was subsequently admitted to the hospitalist service. Surgical consultation was obtained for management of the left leg laceration. PAST MEDICAL HISTORY: 1. End-stage renal disease, on peritoneal dialysis. 2. Polycystic kidney disease. 3. Hypertension. 4. Cardiomyopathy. 5. Coronary artery disease. 6. History of CVA. 7. Depression. PAST SURGICAL HISTORY: Peritoneal dialysis catheter placement. MEDICATIONS: Include: 1. Enbrel. 2. Tylenol. 3. Percocet. 4. Sertraline. 5. Carvedilol. 6. Calcitriol. 7. Tekturna. 8. Baby aspirin. ALLERGIES: She is allergic to CODEINE and ADHESIVE TAPE. SOCIAL HISTORY: She is disabled. She lives with her son in [facility]. She is . She never smoked. Does not use alcohol or drugs. PHYSICAL EXAM: She appears much older than her stated age. She is quite cachectic. In the left lower extremity, there is no evidence of edema. She does have a large long laceration on the lateral aspect of the pelaez from just below the knee to just above the ankle. This is fairly superficial, but it appears that there had been a flap that had been raised. There were several areas of denuded skin, somewhat on the lateral aspect of the leg. There was a significant amount of ecchymosis. There were some Steri-Strips as well as china that were intact. There is no evidence of redness or drainage or discomfort. The left foot is without edema. I do not appreciate palpable dorsalis pedis or posterior tibial pulses. She is able to move the left foot normally and has normal strength and sensation to light touch and pinprick. DIAGNOSTIC STUDIES: No x-rays were performed on the day of presentation but her brain CT was unremarkable. Hip and pelvic x-rays today showed no evidence of acute fracture of the hip or pelvis. IMPRESSION: Long laceration of the left leg status post fall. She is going to be admitted to the medical service. PLAN: For continued medical care and observation. In addition, a CT scan of the left lower extremity is to be obtained to rule out fracture especially in the knee area. At this point, I do not believe that there is any evidence of infection in the left lower leg laceration and the suture line appears to be intact. There is a significant amount of ecchymosis and at this point, it is difficult to determine if there is going to be development or progression of nonviable skin that would at some point need more aggressive surgical care. For now, I will recommend bacitracin to the open areas along the staple line and wrapping the leg gently with a 4-inch Kerlix. She will keep the leg elevated when in bed and in the chair. These wound care orders were written. We will follow her closely with you. Thank you very much for this consultation. [id number]/[facility] #: [id number] EL
[2017-09-16] MEDS: Acetaminophen TAB* 325 MG PO PRN (19:15)
[2017-09-16] MEDS: Carvedilol TAB* 25 MG PO SCH (21:05)
[2017-09-16] MEDS ORDERED: traMADol TAB* 50 MG PO PRN (21:08)
[2017-09-17] MEDS: Acetaminophen TAB* 325 MG PO PRN ×2 (01:16→08:09)
[2017-09-17] MEDS: Heparin VIAL(*) 5000 UNITS/ML VIAL (FIVE THOUSAND) SUBCUT SCH ×3 (06:34→21:52)
[2017-09-17 06:53] LABS: ABS Basophils 0 10^3/ul (0-0.2); ABS Eosinophils 0.3 10^3/ul (0-0.6); ABS Lymphocytes 0.9 10^3/ul (1.0-4.8); ABS Monocytes 0.5 10^3/ul (0-0.8); ABS Neutrophils 4.3 10^3/ul (1.5-7.7); ABS Nucleated RBC 0 10^3/ul; Hematocrit 27 % (35-47); Hemoglobin 8.8 g/dl (12.0-16.0); Lymphocyte % 14.5 % (25-47); Mean Corpuscular HGB Conc 33 g/dl (31-36); Mean Corpuscular Hemoglobin 30 pg (27-31); Mean Corpuscular Volume 90 fL (80-97); Mean Platelet Volume 7.5 um3 (7.4-10.4); Nucleated Red Blood Cells % 0; Platelet Count 174 10^3/ul (150-450); Red Blood Count 2.95 10^6/ul (4.0-5.4); Red Cell Distribution Width 16 % (10.5-15); White Blood Count 5.9 10^3/ul (3.5-10.8)
[2017-09-17 06:59] LABS: INR 0.98 (0.77-1.02)
[2017-09-17 07:09] LABS: EGFR Non-African American 5.1 (>60)
[2017-09-17] MEDS: Sertraline* 50 MG TAB PO SCH (08:08)
[2017-09-17] MEDS: Carvedilol TAB* 25 MG PO SCH ×2 (08:08→21:51)
[2017-09-17] MEDS: Calcitriol CAP* 0.25 MCG PO SCH (08:08)
[2017-09-17] MEDS: Aspirin EC TAB* 81 MG TAB.EC PO SCH (08:09)
[2017-09-17] MEDS: ALISKIREN 300 MG PO SCH (08:19)
--- NOTE | 2017-09-17 10:17 | PN ---
Subjective Date of Service: 09/17/17 Interval History: Patient seen and examined. States pain in left leg and thigh is "excrutiating". Cannot ambulate. Denies SOB, no chest pain, no further complaints. Discussed placement of HD cath today, patient states her son does not want her to have HD , and would like her to continue PD. Discussed that this decision is likely in her best interest, given acute nature of her current issues. Objective Active Medications: Acetaminophen (Tylenol Tab*) 650 mg PO Q4H PRN PRN Reason: FEVER/PAIN Last Admin: 09/17/17 08:09 Dose: 650 mg Aliskiren (Tekturna Tab*) 300 mg PO DAILY [facility] Last Admin: 09/17/17 08:19 Dose: 300 mg Aspirin (Aspirin Ec Tab*) 81 mg PO DAILY [facility] Last Admin: 09/17/17 08:09 Dose: 81 mg Calcitriol (Rocaltrol Cap*) 0.25 mcg PO DAILY [facility] Last Admin: 09/17/17 08:08 Dose: 0.25 mcg Carvedilol (Coreg Tab*) 25 mg PO BID [facility] Last Admin: 09/17/17 08:08 Dose: 25 mg Heparin Sodium (Porcine) (Heparin Vial(*)) 5,000 units SUBCUT Q8HR [facility] Last Admin: 09/17/17 06:34 Dose: Not Given Ondansetron HCl (Zofran Inj*) 4 mg IV Q6H PRN PRN Reason: NAUSEA Last Admin: 09/17/17 01:16 Dose: 4 mg Sertraline HCl (Zoloft*) 50 mg PO DAILY [facility] Last Admin: 09/17/17 08:08 Dose: 50 mg Tramadol HCl (Ultram*) 50 mg PO Q8H PRN PRN Reason: PAIN Last Admin: 09/16/17 22:19 Dose: 50 mg Vital Signs - 8 hr 09/17/17 09/17/17 02:52 07:58 Temperature 99.3 F 98.0 F Pulse Rate 92 78 Respiratory 18 16 Rate Blood Pressure 134/78 141/71 (mmHg) O2 Sat by Pulse 95 99 Oximetry Oxygen Devices in Use Now: None Appearance: Alert, frail, deconditioned, mild distress noted Ears/Nose/Mouth/Throat: Mucous Membranes Moist Neck: Trachea Midline Respiratory: Symmetrical Chest Expansion and Respiratory Effort, Clear to Auscultation Cardiovascular: RRR - grade III/ murmur, No Edema Abdominal: NL Sounds; No Tenderness; No Distention Skin: - - poor color, ashen at baseline, significant ecchymosis to left lateral thigh, dressing to LLE CDI Neurological: Alert and Oriented x 3, NL Sensation Nutrition: - - NPO Result Diagrams: 09/17/17 06:45 09/17/17 06:45 Additional Lab and Data: Lab Results 09/16/17 09/16/17 09/16/17 Range/Units 12:28 12:28 12:28 WBC 7.1 (3.5-10.8) 10^3/ul RBC 3.29 L (4.0-5.4) 10^6/ul Hgb 9.7 L (12.0-16.0) g/dl Hct 30 L (35-47) % MCV 90 (80-97) fL MCH 29 (27-31) pg MCHC 33 (31-36) g/dl RDW 16 H (10.5-15) % Plt Count 183 (150-450) 10^3/ul MPV 7.8 (7.4-10.4) um3 Neut % (Auto) 70.5 (38-83) % Lymph % (Auto) 11.9 L (25-47) % [place] % (Auto) 10.1 H (0-7) % Eos % (Auto) 6.8 H (0-6) % Baso % (Auto) 0.7 (0-2) % Absolute Neuts (auto) 5.0 (1.5-7.7) 10^3/ul Absolute Lymphs (auto) 0.8 L (1.0-4.8) 10^3/ul Absolute Monos (auto) 0.7 (0-0.8) 10^3/ul Absolute Eos (auto) 0.5 (0-0.6) 10^3/ul Absolute Basos (auto) 0 (0-0.2) 10^3/ul Absolute Nucleated RBC 0 10^3/ul Nucleated RBC % 0 INR (Anticoag Therapy) 0.90 (0.77-1.02) Sodium 136 L (139-145) mmol/L Potassium 4.1 (3.5-5.0) mmol/L Chloride 97 L (101-111) mmol/L Carbon Dioxide 30 (22-32) mmol/L Anion Gap 9 (2-11) mmol/L BUN 46 H (6-24) mg/dL Creatinine 7.48 H (0.51-0.95) mg/dL Est GFR ( Amer) 7.2 (>60) Est GFR (Non-Af Amer) 5.6 (>60) BUN/Creatinine Ratio 6.1 L (8-20) Glucose 92 (70-100) mg/dL Calcium 8.9 (8.6-10.3) mg/dL Total Bilirubin 0.20 (0.2-1.0) mg/dL AST 10 L (13-39) U/L ALT < 3 L (7-52) U/L Alkaline Phosphatase 51 (34-104) U/L C-Reactive Protein 93.21 H (< 5.00) mg/L Total Protein 5.0 L (6.4-8.9) g/dL Albumin 2.3 L (3.2-5.2) g/dL Globulin 2.7 (2-4) g/dL Albumin/Globulin Ratio 0.9 L (1-3) Diagnostic Imaging: Patient Name: EDWARDO GUILLEN Medical Record#: [id number] Ordering Physician: Audie Duffy FIBER TECHNICIAN Acct.#: [id number] : 1960 Age: 57 Sex: F Location: [address] [place] [address] MEDICAL Exam Date: 09/16/17 1354 ADM Status: ADM IN Order Information: CT EXTREMITY LOWER LEFT WO Accession Number: [id number] CPT: 74414 INDICATION: Left lower extremity laceration and hip pain after a fall COMPARISON: Same day CT of the pelvis dated September 16, 2017 TECHNIQUE: Noncontrast CT examination of the left lower leg.. Axial images were acquired and sagittal and coronal reformats were created and independently analyzed. FINDINGS: There is widespread infiltration of the subcutaneous tissue. Extending down the lateral margin of the thigh there is a subcutaneous fluid collection extending as far as the level of the knee joint. This fluid collection measures up to 2.1 x 6.3 cm in the axial plane. More inferiorly there are surgical skin china overlying the anterolateral proximal left lower leg, presumably the site of the reported laceration. There is coarse of this atherosclerotic calcification of the visualized distal superficial femoral artery extending into the popliteal and infrapopliteal arteries. There is no definite fracture or dislocation identified in the visualized bones. Degenerative changes at the ankle joint and knee joint include joint space narrowing. IMPRESSION: 1. Subcutaneous fluid collection overlying the distal lateral margin of the left thigh as described above. 2. No bony fracture or dislocation. <Electronically signed by Doug Mawxell MD in OV> 09/16/17 1600 Dictated By: Doug Maxwell MD Dictated Date/Time: 09/16/17 1600 Transcribed Date/Time: 09/16/17 1555 Copy to: Assess/Plan/Problems-Billing Assessment: This is a frail, 57 year old female with PMHx of ESRD on PD, cardiomyopathy, RA ; s/p fall with large laceration to LLE with intractable pain and inability to ambulate, admitted for same. - Patient Problems (1) Laceration of left lower leg Code(s): S81.812A - LACERATION WITHOUT FOREIGN BODY, LEFT LOWER LEG, INIT ENCNTR SNOMED Code(s): 575595002 Comment: - [place] intact - Surgery consulted, does not appear to need surgical intervention at this time - CT LLE as above, no fracture - PT as tolerated (2) Anemia Code(s): D64.9 - ANEMIA, UNSPECIFIED SNOMED Code(s): 667025805 Comment: - 2/2 ESRD/chronic disease and iron deficiency - H&H stable - Was previously on iron suplementation, monitor H&H (3) Anxiety Onset Date: 01/26/14 Code(s): F41.9 - ANXIETY DISORDER, UNSPECIFIED SNOMED Code(s): 49682542 Comment: - Continue sertraline daily (4) Chronic pain Code(s): G89.29 - OTHER CHRONIC PAIN SNOMED Code(s): 62703134 Comment: - Acute on chronic now with laceration - Discussed extensively with Dr. Bianchi, will start methadone 5mg daily and ok for percocet for breakthru, mentation is intact (5) End stage renal failure on dialysis Code(s): N18.6 - END STAGE RENAL DISEASE; Z99.2 - DEPENDENCE ON RENAL DIALYSIS SNOMED Code(s): 185144116 Comment: - Plan for tunneled cath today at noon to start HD (6) Hypertension Current Visit: No Status: Acute Code(s): I10 - ESSENTIAL (PRIMARY) HYPERTENSION SNOMED Code(s): 05421633 Comment: Continue your beta blockers at home (7) Inflammatory arthropathy Code(s): M19.90 - UNSPECIFIED OSTEOARTHRITIS, UNSPECIFIED SITE SNOMED Code(s) : 8340693 Comment: - Starting on methadone for chronic pain (8) Full code status Code(s): Z78.9 - OTHER SPECIFIED HEALTH STATUS SNOMED Code(s): 991664610 Status and Disposition: Remain inpatient, highly recommend rehab placement for strength and gait training.
[2017-09-17] MEDS: Methadone TAB* 5 MG PO SCH (11:26)
[2017-09-18] MEDS: Heparin VIAL(*) 5000 UNITS/ML VIAL (FIVE THOUSAND) SUBCUT SCH ×3 (06:12→21:09)
[2017-09-18] MEDS: Carvedilol TAB* 25 MG PO SCH ×2 (09:10→21:09)
[2017-09-18] MEDS: Calcitriol CAP* 0.25 MCG PO SCH (09:10)
[2017-09-18] MEDS: ALISKIREN 300 MG PO SCH (09:10)
[2017-09-18] MEDS: Sertraline* 50 MG TAB PO SCH (09:10)
[2017-09-18] MEDS: Aspirin EC TAB* 81 MG TAB.EC PO SCH (09:10)
[2017-09-18] MEDS: Methadone TAB* 5 MG PO SCH (09:11)
[2017-09-18] MEDS: Mupirocin 2% OINT* TUBE TOPICAL SCH (09:12)
[2017-09-18] MEDS: oxyCODONE/Acetamin 5/325 MG* TAB PO PRN ×2 (11:31→17:41)
--- NOTE | 2017-09-18 15:53 | PN ---
Subjective Date of Service: 09/18/17 Interval History: Patient seen and examined. No acute overnight events. Pain in leg is improving with current pain regimen. Lengthy discussion with patient and her son regarding POC. SW will seek referrals for appropriate facility that can accommodate PD and provide physical rehab based on today's PT evaluation which recommends GAY. Denies chest pain, no SOB, no fevers or chills. States pain in leg makes her unable to walk and difficult to turn in bed. Objective Active Medications: Acetaminophen (Tylenol Tab*) 650 mg PO Q4H PRN PRN Reason: FEVER/PAIN Last Admin: 09/17/17 08:09 Dose: 650 mg Aliskiren (Tekturna Tab*) 300 mg PO DAILY [facility] Last Admin: 09/18/17 09:10 Dose: 300 mg Aspirin (Aspirin Ec Tab*) 81 mg PO DAILY [facility] Last Admin: 09/18/17 09:10 Dose: 81 mg Calcitriol (Rocaltrol Cap*) 0.25 mcg PO DAILY [facility] Last Admin: 09/18/17 09:10 Dose: 0.25 mcg Carvedilol (Coreg Tab*) 25 mg PO BID [facility] Last Admin: 09/18/17 09:10 Dose: 25 mg Heparin Sodium (Porcine) (Heparin Vial(*)) 5,000 units SUBCUT Q8HR [facility] Last Admin: 09/18/17 13:48 Dose: 5,000 units Methadone HCl (Dolophine Tab*) 5 mg PO DAILY [facility] Last Admin: 09/18/17 09:11 Dose: 5 mg Mupirocin (Bactroban 2 % Oint*) 1 applic TOPICAL DAILY [facility] Last Admin: 09/18/17 09:12 Dose: 1 applic Oxycodone/Acetaminophen (Percocet 5/325 Tab*) 1 tab PO Q6H PRN PRN Reason: PAIN Last Admin: 09/18/17 11:31 Dose: 1 tab Sertraline HCl (Zoloft*) 50 mg PO DAILY [facility] Last Admin: 09/18/17 09:10 Dose: 50 mg Vital Signs - 8 hr 09/18/17 09/18/17 09:11 11:31 Respiratory 20 20 Rate Oxygen Devices in Use Now: None Appearance: Alert, NAD Eyes: No Scleral Icterus, PERRLA Ears/Nose/Mouth/Throat: - - dry oral mucosa Neck: Trachea Midline Respiratory: Symmetrical Chest Expansion and Respiratory Effort, Clear to Auscultation Cardiovascular: RRR, No Edema Abdominal: NL Sounds; No Tenderness; No Distention Skin: - - staple line CDI, dressing intact Neurological: Alert and Oriented x 3 Nutrition: Taking PO's Result Diagrams: 09/17/17 06:45 09/17/17 06:45 Additional Lab and Data: Lab Results 09/16/17 09/16/17 09/16/17 Range/Units 12:28 12:28 12:28 WBC 7.1 (3.5-10.8) 10^3/ul RBC 3.29 L (4.0-5.4) 10^6/ul Hgb 9.7 L (12.0-16.0) g/dl Hct 30 L (35-47) % MCV 90 (80-97) fL MCH 29 (27-31) pg MCHC 33 (31-36) g/dl RDW 16 H (10.5-15) % Plt Count 183 (150-450) 10^3/ul MPV 7.8 (7.4-10.4) um3 Neut % (Auto) 70.5 (38-83) % Lymph % (Auto) 11.9 L (25-47) % [place] % (Auto) 10.1 H (0-7) % Eos % (Auto) 6.8 H (0-6) % Baso % (Auto) 0.7 (0-2) % Absolute Neuts (auto) 5.0 (1.5-7.7) 10^3/ul Absolute Lymphs (auto) 0.8 L (1.0-4.8) 10^3/ul Absolute Monos (auto) 0.7 (0-0.8) 10^3/ul Absolute Eos (auto) 0.5 (0-0.6) 10^3/ul Absolute Basos (auto) 0 (0-0.2) 10^3/ul Absolute Nucleated RBC 0 10^3/ul Nucleated RBC % 0 INR (Anticoag Therapy) 0.90 (0.77-1.02) Sodium 136 L (139-145) mmol/L Potassium 4.1 (3.5-5.0) mmol/L Chloride 97 L (101-111) mmol/L Carbon Dioxide 30 (22-32) mmol/L Anion Gap 9 (2-11) mmol/L BUN 46 H (6-24) mg/dL Creatinine 7.48 H (0.51-0.95) mg/dL Est GFR ( Amer) 7.2 (>60) Est GFR (Non-Af Amer) 5.6 (>60) BUN/Creatinine Ratio 6.1 L (8-20) Glucose 92 (70-100) mg/dL Calcium 8.9 (8.6-10.3) mg/dL Total Bilirubin 0.20 (0.2-1.0) mg/dL AST 10 L (13-39) U/L ALT < 3 L (7-52) U/L Alkaline Phosphatase 51 (34-104) U/L C-Reactive Protein 93.21 H (< 5.00) mg/L Total Protein 5.0 L (6.4-8.9) g/dL Albumin 2.3 L (3.2-5.2) g/dL Globulin 2.7 (2-4) g/dL Albumin/Globulin Ratio 0.9 L (1-3) Diagnostic Imaging: Patient Name: EDWARDO GUILLEN Medical Record#: [id number] Ordering Physician: Audie Duffy PHOTO OFFSET PRINTER Acct.#: [id number] : 1960 Age: 57 Sex: F Location: [address] [place] [address] MEDICAL Exam Date: 09/16/17 135 ADM Status: ADM IN Order Information: CT EXTREMITY LOWER LEFT WO Accession Number: [id number] CPT: 80503 INDICATION: Left lower extremity laceration and hip pain after a fall COMPARISON: Same day CT of the pelvis dated September 16, 2017 TECHNIQUE: Noncontrast CT examination of the left lower leg.. Axial images were acquired and sagittal and coronal reformats were created and independently analyzed. FINDINGS: There is widespread infiltration of the subcutaneous tissue. Extending down the lateral margin of the thigh there is a subcutaneous fluid collection extending as far as the level of the knee joint. This fluid collection measures up to 2.1 x 6.3 cm in the axial plane. More inferiorly there are surgical skin brissa overlying the anterolateral proximal left lower leg, presumably the site of the reported laceration. There is coarse of this atherosclerotic calcification of the visualized distal superficial femoral artery extending into the popliteal and infrapopliteal arteries. There is no definite fracture or dislocation identified in the visualized bones. Degenerative changes at the ankle joint and knee joint include joint space narrowing. IMPRESSION: 1. Subcutaneous fluid collection overlying the distal lateral margin of the left thigh as described above. 2. No bony fracture or dislocation. <Electronically signed by Doug Maxwell MD in [place]> 09/16/17 1600 Dictated By: Doug Maxwell MD Dictated Date/Time: 09/16/17 1600 Transcribed Date/Time: 09/16/17 1555 Copy to: Assess/Plan/Problems-Billing Assessment: This is a frail, 57 year old female with PMHx of ESRD on PD, cardiomyopathy, RA ; s/p fall with large laceration to LLE with intractable pain and inability to ambulate, admitted for same. - Patient Problems (1) Laceration of left lower leg Code(s): S81.812A - LACERATION WITHOUT FOREIGN BODY, LEFT LOWER LEG, INIT ENCNTR SNOMED Code(s): 867486491 Comment: - Brissa intact - Surgery consulted, does not appear to need surgical intervention at this time - CT LLE as above, no fracture - Did not tolerate PT/walking today, recommending rehab (2) Anemia Code(s): D64.9 - ANEMIA, UNSPECIFIED SNOMED Code(s): 572696844 Comment: - 2/2 ESRD/chronic disease and iron deficiency - H&H stable - Was previously on iron suplementation, monitor H&H (3) Anxiety Onset Date: 01/26/14 Code(s): F41.9 - ANXIETY DISORDER, UNSPECIFIED SNOMED Code(s): 48402187 Comment: - Continue sertraline daily (4) Chronic pain Code(s): G89.29 - OTHER CHRONIC PAIN SNOMED Code(s): 92787138 Comment: - Acute on chronic now with laceration - Discussed extensively with Dr. Bianchi, continue methadone 5mg daily and ok for percocet for breakthru, mentation is intact (5) End stage renal failure on dialysis Code(s): N18.6 - END STAGE RENAL DISEASE; Z99.2 - DEPENDENCE ON RENAL DIALYSIS SNOMED Code(s): 891134745 Comment: - Tunneled cath DC'd yesterday after discussion with Dr. Bianchi, patient and her son. Will continue PD with nightly exchanges - SW to find appropriate GAY that can accommodate PD (6) Hypertension Current Visit: No Status: Acute Code(s): I10 - ESSENTIAL (PRIMARY) HYPERTENSION SNOMED Code(s): 28278119 Comment: - Stable on home meds (7) Inflammatory arthropathy Code(s): M19.90 - UNSPECIFIED OSTEOARTHRITIS, UNSPECIFIED SITE SNOMED Code(s) : 9209465 Comment: - Pain improving on methadone for chronic pain (8) Full code status Code(s): Z78.9 - OTHER SPECIFIED HEALTH STATUS SNOMED Code(s): 814445717 Status and Disposition: Remain inpatient, plan for GAY for strengthening and gait training and then refer to [facility] after. Patient and her son are agreeable to this plan. SW working on placement. Counseling and/or Coordination of Care Minutes: coordinated with Dr. Bianchi, patient, SW and patient's son/POA.
[2017-09-18] MEDS: LORazepam TAB(*) 1 MG PO PRN (21:08)
[2017-09-19 06:11] LABS: ABS Basophils 0.1 10^3/ul (0-0.2); ABS Eosinophils 0.4 10^3/ul (0-0.6); ABS Lymphocytes 0.7 10^3/ul (1.0-4.8); ABS Monocytes 0.6 10^3/ul (0-0.8); ABS Neutrophils 5.8 10^3/ul (1.5-7.7); ABS Nucleated RBC 0 10^3/ul; Eosinophil % 5.4 % (0-6); Hematocrit 28 % (35-47); Hemoglobin 9.2 g/dl (12.0-16.0); Lymphocyte % 9.1 % (25-47); Mean Corpuscular HGB Conc 32 g/dl (31-36); Mean Corpuscular Hemoglobin 29 pg (27-31); Mean Corpuscular Volume 91 fL (80-97); Mean Platelet Volume 7.9 um3 (7.4-10.4); Nucleated Red Blood Cells % 0.1; Platelet Count 200 10^3/ul (150-450); Red Blood Count 3.12 10^6/ul (4.0-5.4); Red Cell Distribution Width 16 % (10.5-15); White Blood Count 7.5 10^3/ul (3.5-10.8)
[2017-09-19] MEDS: Heparin VIAL(*) 5000 UNITS/ML VIAL (FIVE THOUSAND) SUBCUT SCH ×3 (06:20→20:52)
--- NOTE | 2017-09-19 09:30 | PN ---
Subjective Date of Service: 09/19/17 Interval History: Patient seen and examined. Had some overnight anxiety, ativan ordered with good response. WOB mildly increased today per patient, feelin g "breathless" at times. Leg pain well controlled. No further complaints. Objective Active Medications: Acetaminophen (Tylenol Tab*) 650 mg PO Q4H PRN PRN Reason: FEVER/PAIN Last Admin: 09/17/17 08:09 Dose: 650 mg Aliskiren (Tekturna Tab*) 300 mg PO DAILY [facility] Last Admin: 09/18/17 09:10 Dose: 300 mg Aspirin (Aspirin Ec Tab*) 81 mg PO DAILY [facility] Last Admin: 09/18/17 09:10 Dose: 81 mg Calcitriol (Rocaltrol Cap*) 0.25 mcg PO DAILY [facility] Last Admin: 09/18/17 09:10 Dose: 0.25 mcg Carvedilol (Coreg Tab*) 25 mg PO BID [facility] Last Admin: 09/18/17 21:09 Dose: 25 mg Heparin Sodium (Porcine) (Heparin Vial(*)) 5,000 units SUBCUT Q8HR [facility] Last Admin: 09/19/17 06:20 Dose: 5,000 units Lorazepam (Ativan Tab(*)) 2 mg PO Q6H PRN PRN Reason: ANXIETY Last Admin: 09/18/17 21:08 Dose: 2 mg Methadone HCl (Dolophine Tab*) 5 mg PO DAILY [facility] Last Admin: 09/18/17 09:11 Dose: 5 mg Mupirocin (Bactroban 2 % Oint*) 1 applic TOPICAL DAILY [facility] Last Admin: 09/18/17 09:12 Dose: 1 applic Oxycodone/Acetaminophen (Percocet 5/325 Tab*) 1 tab PO Q6H PRN PRN Reason: PAIN Last Admin: 09/18/17 17:41 Dose: 1 tab Sertraline HCl (Zoloft*) 50 mg PO DAILY [facility] Last Admin: 09/18/17 09:10 Dose: 50 mg Vital Signs - 8 hr 09/19/17 04:07 Temperature 98.6 F Pulse Rate 76 Respiratory 16 Rate Blood Pressure 126/71 (mmHg) O2 Sat by Pulse 92 Oximetry Oxygen Devices in Use Now: Nasal Cannula Appearance: Alert, NAD Ears/Nose/Mouth/Throat: Mucous Membranes Moist Neck: NL Appearance and Movements; NL JVP, Trachea Midline Respiratory: Symmetrical Chest Expansion and Respiratory Effort, Clear to Auscultation Cardiovascular: NL Sounds; No Murmurs; No JVD, RRR Abdominal: NL Sounds; No Tenderness; No Distention Skin: - - poor color overall, at baseline Neurological: Alert and Oriented x 3, - - general weakness Nutrition: Taking PO's Result Diagrams: 09/19/17 05:55 09/17/17 06:45 Additional Lab and Data: Lab Results 09/16/17 09/16/17 09/16/17 Range/Units 12:28 12:28 12:28 WBC 7.1 (3.5-10.8) 10^3/ul RBC 3.29 L (4.0-5.4) 10^6/ul Hgb 9.7 L (12.0-16.0) g/dl Hct 30 L (35-47) % MCV 90 (80-97) fL MCH 29 (27-31) pg MCHC 33 (31-36) g/dl RDW 16 H (10.5-15) % Plt Count 183 (150-450) 10^3/ul MPV 7.8 (7.4-10.4) um3 Neut % (Auto) 70.5 (38-83) % Lymph % (Auto) 11.9 L (25-47) % [place] % (Auto) 10.1 H (0-7) % Eos % (Auto) 6.8 H (0-6) % Baso % (Auto) 0.7 (0-2) % Absolute Neuts (auto) 5.0 (1.5-7.7) 10^3/ul Absolute Lymphs (auto) 0.8 L (1.0-4.8) 10^3/ul Absolute Monos (auto) 0.7 (0-0.8) 10^3/ul Absolute Eos (auto) 0.5 (0-0.6) 10^3/ul Absolute Basos (auto) 0 (0-0.2) 10^3/ul Absolute Nucleated RBC 0 10^3/ul Nucleated RBC % 0 INR (Anticoag Therapy) 0.90 (0.77-1.02) Sodium 136 L (139-145) mmol/L Potassium 4.1 (3.5-5.0) mmol/L Chloride 97 L (101-111) mmol/L Carbon Dioxide 30 (22-32) mmol/L Anion Gap 9 (2-11) mmol/L BUN 46 H (6-24) mg/dL Creatinine 7.48 H (0.51-0.95) mg/dL Est GFR ( Amer) 7.2 (>60) Est GFR (Non-Af Amer) 5.6 (>60) BUN/Creatinine Ratio 6.1 L (8-20) Glucose 92 (70-100) mg/dL Calcium 8.9 (8.6-10.3) mg/dL Total Bilirubin 0.20 (0.2-1.0) mg/dL AST 10 L (13-39) U/L ALT < 3 L (7-52) U/L Alkaline Phosphatase 51 (34-104) U/L C-Reactive Protein 93.21 H (< 5.00) mg/L Total Protein 5.0 L (6.4-8.9) g/dL Albumin 2.3 L (3.2-5.2) g/dL Globulin 2.7 (2-4) g/dL Albumin/Globulin Ratio 0.9 L (1-3) Diagnostic Imaging: Patient Name: EDWARDO GUILLEN Medical Record#: [id number] Ordering Physician: Audie Duffy AXLE TURNER Acct.#: [id number] : 1960 Age: 57 Sex: F Location: [address] [place] [address] MEDICAL Exam Date: 09/16/17 1354 ADM Status: ADM IN Order Information: CT EXTREMITY LOWER LEFT WO Accession Number: [id number] CPT: 47955 INDICATION: Left lower extremity laceration and hip pain after a fall COMPARISON: Same day CT of the pelvis dated September 16, 2017 TECHNIQUE: Noncontrast CT examination of the left lower leg.. Axial images were acquired and sagittal and coronal reformats were created and independently analyzed. FINDINGS: There is widespread infiltration of the subcutaneous tissue. Extending down the lateral margin of the thigh there is a subcutaneous fluid collection extending as far as the level of the knee joint. This fluid collection measures up to 2.1 x 6.3 cm in the axial plane. More inferiorly there are surgical skin brissa overlying the anterolateral proximal left lower leg, presumably the site of the reported laceration. There is coarse of this atherosclerotic calcification of the visualized distal superficial femoral artery extending into the popliteal and infrapopliteal arteries. There is no definite fracture or dislocation identified in the visualized bones. Degenerative changes at the ankle joint and knee joint include joint space narrowing. IMPRESSION: 1. Subcutaneous fluid collection overlying the distal lateral margin of the left thigh as described above. 2. No bony fracture or dislocation. <Electronically signed by Doug Maxwell MD in [facility]> 09/16/17 1600 Dictated By: Doug Maxwell MD Dictated Date/Time: 09/16/17 1600 Transcribed Date/Time: 09/16/17 1555 Copy to: Assess/Plan/Problems-Billing Assessment: This is a frail, 57 year old female with PMHx of ESRD on PD, cardiomyopathy, RA ; s/p fall with large laceration to LLE with intractable pain and inability to ambulate, admitted for same. - Patient Problems (1) Laceration of left lower leg Code(s): S81.812A - LACERATION WITHOUT FOREIGN BODY, LEFT LOWER LEG, INIT ENCNTR SNOMED Code(s): 844625595 Comment: - Brissa intact - Surgery following, continue local wound care, brissa may have to remain for quite some time - CT LLE as above, no fracture - Continue physical activity per PT recs (2) Anemia Code(s): D64.9 - ANEMIA, UNSPECIFIED SNOMED Code(s): 683323806 Comment: - 2/2 ESRD/chronic disease and iron deficiency - H&H stable - Was previously on iron suplementation, monitor H&H (3) Anxiety Onset Date: 01/26/14 Code(s): F41.9 - ANXIETY DISORDER, UNSPECIFIED SNOMED Code(s): 13928863 Comment: - Continue sertraline daily - Ativan added last night, mood stable (4) Chronic pain Code(s): G89.29 - OTHER CHRONIC PAIN SNOMED Code(s): 62169797 Comment: - Acute on chronic now with laceration - Discussed extensively with Dr. Bianchi, continue methadone 5mg daily and ok for percocet for breakthru, mentation is intact (5) End stage renal failure on dialysis Code(s): N18.6 - END STAGE RENAL DISEASE; Z99.2 - DEPENDENCE ON RENAL DIALYSIS SNOMED Code(s): 894571895 Comment: - SW to find appropriate GAY that can accommodate PD (6) Hypertension Current Visit: No Status: Acute Code(s): I10 - ESSENTIAL (PRIMARY) HYPERTENSION SNOMED Code(s): 80096889 Comment: - Stable on home meds (7) Inflammatory arthropathy Code(s): M19.90 - UNSPECIFIED OSTEOARTHRITIS, UNSPECIFIED SITE SNOMED Code(s) : 7550153 Comment: - Pain improving on methadone for chronic pain (8) Full code status Code(s): Z78.9 - OTHER SPECIFIED HEALTH STATUS SNOMED Code(s): 143150196 (9) COPD (chronic obstructive pulmonary disease) Code(s): J44.9 - CHRONIC OBSTRUCTIVE PULMONARY DISEASE, UNSPECIFIED SNOMED Code(s): 36411539 Comment: - Add supplemental O2 today, no wheeze or sputum noted - SOB may also be attributed to volume overload and fluid shifts Status and Disposition: Remain inpatient, plan for GAY for strengthening and gait training and then refer to [facility] after. Patient and her son are agreeable to this plan. SW working on placement.
[2017-09-19] MEDS: oxyCODONE/Acetamin 5/325 MG* TAB PO PRN ×2 (10:04→16:40)
[2017-09-19] MEDS: Methadone TAB* 5 MG PO SCH (10:46)
[2017-09-19] MEDS: Carvedilol TAB* 25 MG PO SCH ×2 (10:46→20:51)
[2017-09-19] MEDS: Aspirin EC TAB* 81 MG TAB.EC PO SCH (10:49)
[2017-09-19] MEDS: Calcitriol CAP* 0.25 MCG PO SCH (10:49)
[2017-09-19] MEDS: ALISKIREN 300 MG PO SCH (10:49)
[2017-09-19] MEDS: Sertraline* 50 MG TAB PO SCH (10:49)
[2017-09-19] MEDS: Mupirocin 2% OINT* TUBE TOPICAL SCH (10:54)
[2017-09-19] MEDS: Acetaminophen TAB* 325 MG PO PRN (21:00)
[2017-09-20] MEDS: oxyCODONE/Acetamin 5/325 MG* TAB PO PRN ×2 (02:56→17:07)
[2017-09-20] MEDS: Heparin VIAL(*) 5000 UNITS/ML VIAL (FIVE THOUSAND) SUBCUT SCH ×3 (05:36→21:15)
[2017-09-20] MEDS: ALISKIREN 300 MG PO SCH (08:13)
[2017-09-20] MEDS: Aspirin EC TAB* 81 MG TAB.EC PO SCH (08:14)
[2017-09-20] MEDS: Mupirocin 2% OINT* TUBE TOPICAL SCH (08:14)
[2017-09-20] MEDS: Sertraline* 50 MG TAB PO SCH (08:14)
[2017-09-20] MEDS: Carvedilol TAB* 25 MG PO SCH ×2 (08:14→21:14)
[2017-09-20] MEDS: Calcitriol CAP* 0.25 MCG PO SCH (08:14)
[2017-09-20] MEDS: Methadone TAB* 5 MG PO SCH (08:14)
--- NOTE | 2017-09-20 09:06 | PN ---
Subjective Date of Service: 09/20/17 Interval History: Patient seen and examined. No acute overnight events. Still with pain in LLE, but improved. Remains unable to ambulate unassisted. Tolerated PD overnight without issue. No c/o SOB today. Objective Active Medications: Acetaminophen (Tylenol Tab*) 650 mg PO Q4H PRN PRN Reason: FEVER/PAIN Last Admin: 09/19/17 21:00 Dose: 650 mg Aliskiren (Tekturna Tab*) 300 mg PO DAILY [facility] Last Admin: 09/20/17 08:13 Dose: 300 mg Aspirin (Aspirin Ec Tab*) 81 mg PO DAILY [facility] Last Admin: 09/20/17 08:14 Dose: 81 mg Calcitriol (Rocaltrol Cap*) 0.25 mcg PO DAILY [facility] Last Admin: 09/20/17 08:14 Dose: 0.25 mcg Carvedilol (Coreg Tab*) 25 mg PO BID [facility] Last Admin: 09/20/17 08:14 Dose: 25 mg Heparin Sodium (Porcine) (Heparin Vial(*)) 5,000 units SUBCUT Q8HR [facility] Last Admin: 09/20/17 05:36 Dose: 5,000 units Lorazepam (Ativan Tab(*)) 2 mg PO Q6H PRN PRN Reason: ANXIETY Last Admin: 09/18/17 21:08 Dose: 2 mg Methadone HCl (Dolophine Tab*) 5 mg PO DAILY [facility] Last Admin: 09/20/17 08:14 Dose: 5 mg Mupirocin (Bactroban 2 % Oint*) 1 applic TOPICAL DAILY [facility] Last Admin: 09/20/17 08:14 Dose: 1 applic Oxycodone/Acetaminophen (Percocet 5/325 Tab*) 1 tab PO Q6H PRN PRN Reason: PAIN Last Admin: 09/20/17 02:56 Dose: 1 tab Sertraline HCl (Zoloft*) 50 mg PO DAILY [facility] Last Admin: 09/20/17 08:14 Dose: 50 mg Vital Signs - 8 hr 09/20/17 09/20/17 09/20/17 02:55 02:56 03:09 Temperature 97.3 F Pulse Rate 72 Respiratory 16 18 Rate Blood Pressure 161/71 142/76 (mmHg) O2 Sat by Pulse 100 Oximetry 09/20/17 09/20/17 09/20/17 05:35 07:34 08:14 Temperature 97.7 F Pulse Rate 70 Respiratory 18 15 18 Rate Blood Pressure 141/68 (mmHg) O2 Sat by Pulse 100 Oximetry 09/20/17 08:19 Temperature Pulse Rate Respiratory 18 Rate Blood Pressure (mmHg) O2 Sat by Pulse Oximetry Oxygen Devices in Use Now: Nasal Cannula Appearance: Alert, NAD Ears/Nose/Mouth/Throat: Mucous Membranes Moist Neck: NL Appearance and Movements; NL JVP, Trachea Midline Respiratory: Symmetrical Chest Expansion and Respiratory Effort, Clear to Auscultation Cardiovascular: NL Sounds; No Murmurs; No JVD, RRR, No Edema Abdominal: NL Sounds; No Tenderness; No Distention Extremities: No Clubbing, Cyanosis, - - laceration dressing CDI Skin: - - ecchymosis improving to left lateral thigh Neurological: Alert and Oriented x 3, - - general weakness Nutrition: Taking PO's Result Diagrams: 09/19/17 05:55 09/17/17 06:45 Additional Lab and Data: Lab Results 09/16/17 09/16/17 09/16/17 Range/Units 12:28 12:28 12:28 WBC 7.1 (3.5-10.8) 10^3/ul RBC 3.29 L (4.0-5.4) 10^6/ul Hgb 9.7 L (12.0-16.0) g/dl Hct 30 L (35-47) % MCV 90 (80-97) fL MCH 29 (27-31) pg MCHC 33 (31-36) g/dl RDW 16 H (10.5-15) % Plt Count 183 (150-450) 10^3/ul MPV 7.8 (7.4-10.4) um3 Neut % (Auto) 70.5 (38-83) % Lymph % (Auto) 11.9 L (25-47) % [place] % (Auto) 10.1 H (0-7) % Eos % (Auto) 6.8 H (0-6) % Baso % (Auto) 0.7 (0-2) % Absolute Neuts (auto) 5.0 (1.5-7.7) 10^3/ul Absolute Lymphs (auto) 0.8 L (1.0-4.8) 10^3/ul Absolute Monos (auto) 0.7 (0-0.8) 10^3/ul Absolute Eos (auto) 0.5 (0-0.6) 10^3/ul Absolute Basos (auto) 0 (0-0.2) 10^3/ul Absolute Nucleated RBC 0 10^3/ul Nucleated RBC % 0 INR (Anticoag Therapy) 0.90 (0.77-1.02) Sodium 136 L (139-145) mmol/L Potassium 4.1 (3.5-5.0) mmol/L Chloride 97 L (101-111) mmol/L Carbon Dioxide 30 (22-32) mmol/L Anion Gap 9 (2-11) mmol/L BUN 46 H (6-24) mg/dL Creatinine 7.48 H (0.51-0.95) mg/dL Est GFR ( Amer) 7.2 (>60) Est GFR (Non-Af Amer) 5.6 (>60) BUN/Creatinine Ratio 6.1 L (8-20) Glucose 92 (70-100) mg/dL Calcium 8.9 (8.6-10.3) mg/dL Total Bilirubin 0.20 (0.2-1.0) mg/dL AST 10 L (13-39) U/L ALT < 3 L (7-52) U/L Alkaline Phosphatase 51 (34-104) U/L C-Reactive Protein 93.21 H (< 5.00) mg/L Total Protein 5.0 L (6.4-8.9) g/dL Albumin 2.3 L (3.2-5.2) g/dL Globulin 2.7 (2-4) g/dL Albumin/Globulin Ratio 0.9 L (1-3) Diagnostic Imaging: Patient Name: EDWARDO GUILLEN Medical Record#: [id number] Ordering Physician: 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 Axial images were acquired and sagittal and coronal reformats were created and independently analyzed. FINDINGS: There is widespread infiltration of the subcutaneous tissue. Extending down the lateral margin of the thigh there is a subcutaneous fluid collection extending as far as the level of the knee joint. This fluid collection measures up to 2.1 x 6.3 cm in the axial plane. More inferiorly there are surgical skin brissa overlying the anterolateral proximal left lower leg, presumably the site of the reported laceration. There is coarse of this atherosclerotic calcification of the visualized distal superficial femoral artery extending into the popliteal and infrapopliteal arteries. There is no definite fracture or dislocation identified in the visualized bones. Degenerative changes at the ankle joint and knee joint include joint space narrowing. IMPRESSION: 1. Subcutaneous fluid collection overlying the distal lateral margin of the left thigh as described above. 2. No bony fracture or dislocation. <Electronically signed by Doug Maxwell MD in [facility]> 09/16/17 1600 Dictated By: Doug Maxwell MD Dictated Date/Time: 09/16/17 1600 Transcribed Date/Time: 09/16/17 1555 Copy to: Assess/Plan/Problems-Billing Assessment: This is a frail, 57 year old female with PMHx of ESRD on PD, cardiomyopathy, RA ; s/p fall with large laceration to LLE with intractable pain and inability to ambulate, admitted for same. - Patient Problems (1) Laceration of left lower leg Code(s): S81.812A - LACERATION WITHOUT FOREIGN BODY, LEFT LOWER LEG, INIT ENCNTR SNOMED Code(s): 486834134 Comment: - Brissa intact - Surgery following, continue local wound care, brissa may have to remain for quite some time - CT LLE as above, no fracture - Continue physical activity per PT recs (2) Anemia Code(s): D64.9 - ANEMIA, UNSPECIFIED SNOMED Code(s): 603198236 Comment: - 2/2 ESRD/chronic disease and iron deficiency - H&H stable - Was previously on iron suplementation, monitor H&H (3) Anxiety Onset Date: 01/26/14 Code(s): F41.9 - ANXIETY DISORDER, UNSPECIFIED SNOMED Code(s): 98253089 Comment: - Continue sertraline daily - Ativan added last night, mood stable (4) Chronic pain Code(s): G89.29 - OTHER CHRONIC PAIN SNOMED Code(s): 49255014 Comment: - Acute on chronic now with laceration - Continue methadone 5mg daily and ok for percocet for breakthru, mentation is intact (5) End stage renal failure on dialysis Code(s): N18.6 - END STAGE RENAL DISEASE; Z99.2 - DEPENDENCE ON RENAL DIALYSIS SNOMED Code(s): 856894437 Comment: - SW to find appropriate GAY that can accommodate PD - Referrals made 09/19 (6) Hypertension Current Visit: No Status: Acute Code(s): I10 - ESSENTIAL (PRIMARY) HYPERTENSION SNOMED Code(s): 64596215 Comment: - Stable on home meds (7) Inflammatory arthropathy Code(s): M19.90 - UNSPECIFIED OSTEOARTHRITIS, UNSPECIFIED SITE SNOMED Code(s) : 5272358 Comment: - Pain improving on methadone for chronic pain (8) COPD (chronic obstructive pulmonary disease) Code(s): J44.9 - CHRONIC OBSTRUCTIVE PULMONARY DISEASE, UNSPECIFIED SNOMED Code(s): 47734811 Comment: - Add supplemental O2 today, no wheeze or sputum noted - SOB may also be attributed to volume overload and fluid shifts (9) Full code status Code(s): Z78.9 - OTHER SPECIFIED HEALTH STATUS SNOMED Code(s): 028920345 Status and Disposition: Remain inpatient, plan for GAY for strengthening and gait training and then refer to [facility] after. Patient and her son are agreeable to this plan. SW working on placement. May have to be placed on Swing Status if we are unable to get an accepting facility today.
--- NOTE | 2017-09-20 10:16 | PN ---
Progress Note - Progress Note Date of Service: 09/20/17 SOAP: Subjective: She complains only of left lower extremity pain Tolerating po Unable to ambulate Objective: Temp Pulse Resp BP Pulse Ox 97.7 F 70 18 141/68 100 09/20/17 07:34 09/20/17 07:34 09/20/17 08:19 09/20/17 07:34 09/20/17 07:34 PEX: Left lower leg--staple line is intact. Flap is viable and remains ecchymotic. Open areas of laceration are pink and healthy without drainage, surrounding redness or warmth. No odor. No edema in the leg. Upper lateral thigh without redness or tenderness. [place] removed. Wound re-dressed. Assessment: Left lower leg laceration s/p fall-- no signs of infection at present. Continue to follow skin flap which today appears viable but ecchymotic. No signs of infection Gro[place]beck removed and no indication for debridement Plan: Continue wound care as ordered Elevate leg as much as possible.
[2017-09-20] MEDS: LORazepam TAB(*) 1 MG PO PRN (10:33)
[2017-09-20] MEDS: Acetaminophen TAB* 325 MG PO PRN (21:14)
[2017-09-21] MEDS: oxyCODONE/Acetamin 5/325 MG* TAB PO PRN ×3 (02:21→17:27)
[2017-09-21] MEDS: Heparin VIAL(*) 5000 UNITS/ML VIAL (FIVE THOUSAND) SUBCUT SCH ×3 (05:54→21:23)
[2017-09-21] MEDS: Aspirin EC TAB* 81 MG TAB.EC PO SCH (08:42)
[2017-09-21] MEDS: Sertraline* 50 MG TAB PO SCH (08:42)
[2017-09-21] MEDS: Methadone TAB* 5 MG PO SCH (08:42)
[2017-09-21] MEDS: Calcitriol CAP* 0.25 MCG PO SCH (08:42)
[2017-09-21] MEDS: ALISKIREN 300 MG PO SCH (08:42)
[2017-09-21] MEDS: Carvedilol TAB* 25 MG PO SCH ×2 (08:42→21:23)
[2017-09-21] MEDS: Mupirocin 2% OINT* TUBE TOPICAL SCH (08:48)
--- NOTE | 2017-09-21 10:49 | PN ---
Subjective Date of Service: 09/21/17 Interval History: C/o continued left lower leg pain increased pain with movement, pain also at rest. Chest pain or shortness of breath. Denies n/v/d. Family History: Unchanged from Admission Social History: Unchanged from Admission Past Medical History: Unchanged from Admission Objective Active Medications: Acetaminophen (Tylenol Tab*) 650 mg PO Q4H PRN PRN Reason: FEVER/PAIN Last Admin: 09/20/17 21:14 Dose: 650 mg Aliskiren (Tekturna Tab*) 300 mg PO DAILY [facility] Last Admin: 09/21/17 08:42 Dose: 300 mg Aspirin (Aspirin Ec Tab*) 81 mg PO DAILY [facility] Last Admin: 09/21/17 08:42 Dose: 81 mg Calcitriol (Rocaltrol Cap*) 0.25 mcg PO DAILY [facility] Last Admin: 09/21/17 08:42 Dose: 0.25 mcg Carvedilol (Coreg Tab*) 25 mg PO BID [facility] Last Admin: 09/21/17 08:42 Dose: 25 mg Heparin Sodium (Porcine) (Heparin Vial(*)) 5,000 units SUBCUT Q8HR [facility] Last Admin: 09/21/17 05:54 Dose: 5,000 units Lorazepam (Ativan Tab(*)) 2 mg PO Q6H PRN PRN Reason: ANXIETY Last Admin: 09/20/17 10:33 Dose: 2 mg Methadone HCl (Dolophine Tab*) 5 mg PO DAILY [facility] Last Admin: 09/21/17 08:42 Dose: 5 mg Mupirocin (Bactroban 2 % Oint*) 1 applic TOPICAL DAILY [facility] Last Admin: 09/21/17 08:48 Dose: 1 applic Oxycodone/Acetaminophen (Percocet 5/325 Tab*) 1 tab PO Q6H PRN PRN Reason: PAIN Last Admin: 09/21/17 08:43 Dose: 1 tab Sertraline HCl (Zoloft*) 50 mg PO DAILY [facility] Last Admin: 09/21/17 08:42 Dose: 50 mg Vital Signs - 8 hr 09/21/17 09/21/17 09/21/17 04:56 08:42 08:43 Respiratory 18 18 18 Rate Oxygen Devices in Use Now: Nasal Cannula Appearance: appears uncomfortable resting in bed, respirations easy and even. Eyes: No Scleral Icterus Ears/Nose/Mouth/Throat: Clear Oropharnyx, Mucous Membranes Moist Neck: NL Appearance and Movements; NL JVP, Trachea Midline Respiratory: Symmetrical Chest Expansion and Respiratory Effort, Clear to Auscultation Cardiovascular: NL Sounds; No Murmurs; No JVD Abdominal: NL Sounds; No Tenderness; No Distention Extremities: No Clubbing, Cyanosis, - - mild swelling to left lower leg. Skin: - - dressing intact to left lower leg, pedal and post tib pulses intact, sensation and movement also intact. Neurological: Alert and Oriented x 3 Nutrition: Taking PO's Result Diagrams: 09/19/17 05:55 09/17/17 06:45 Additional Lab and Data: Lab Results 09/16/17 09/16/17 09/16/17 Range/Units 12:28 12:28 12:28 WBC 7.1 (3.5-10.8) 10^3/ul RBC 3.29 L (4.0-5.4) 10^6/ul Hgb 9.7 L (12.0-16.0) g/dl Hct 30 L (35-47) % MCV 90 (80-97) fL MCH 29 (27-31) pg MCHC 33 (31-36) g/dl RDW 16 H (10.5-15) % Plt Count 183 (150-450) 10^3/ul MPV 7.8 (7.4-10.4) um3 Neut % (Auto) 70.5 (38-83) % Lymph % (Auto) 11.9 L (25-47) % Garrard % (Auto) 10.1 H (0-7) % Eos % (Auto) 6.8 H (0-6) % Baso % (Auto) 0.7 (0-2) % Absolute Neuts (auto) 5.0 (1.5-7.7) 10^3/ul Absolute Lymphs (auto) 0.8 L (1.0-4.8) 10^3/ul Absolute Monos (auto) 0.7 (0-0.8) 10^3/ul Absolute Eos (auto) 0.5 (0-0.6) 10^3/ul Absolute Basos (auto) 0 (0-0.2) 10^3/ul Absolute Nucleated RBC 0 10^3/ul Nucleated RBC % 0 INR (Anticoag Therapy) 0.90 (0.77-1.02) Sodium 136 L (139-145) mmol/L Potassium 4.1 (3.5-5.0) mmol/L Chloride 97 L (101-111) mmol/L Carbon Dioxide 30 (22-32) mmol/L Anion Gap 9 (2-11) mmol/L BUN 46 H (6-24) mg/dL Creatinine 7.48 H (0.51-0.95) mg/dL Est GFR ( Amer) 7.2 (>60) Est GFR (Non-Af Amer) 5.6 (>60) BUN/Creatinine Ratio 6.1 L (8-20) Glucose 92 (70-100) mg/dL Calcium 8.9 (8.6-10.3) mg/dL Total Bilirubin 0.20 (0.2-1.0) mg/dL AST 10 L (13-39) U/L ALT < 3 L (7-52) U/L Alkaline Phosphatase 51 (34-104) U/L C-Reactive Protein 93.21 H (< 5.00) mg/L Total Protein 5.0 L (6.4-8.9) g/dL Albumin 2.3 L (3.2-5.2) g/dL Globulin 2.7 (2-4) g/dL Albumin/Globulin Ratio 0.9 L (1-3) Diagnostic Imaging: Patient Name: EDWARDO GUILLEN Medical Record#: [id number] Ordering Physician: Audie Duffy [employer]OLLEY [employer]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 Axial images were acquired and sagittal and coronal reformats were created and independently analyzed. FINDINGS: There is widespread infiltration of the subcutaneous tissue. Extending down the lateral margin of the thigh there is a subcutaneous fluid collection extending as far as the level of the knee joint. This fluid collection measures up to 2.1 x 6.3 cm in the axial plane. More inferiorly there are surgical skin brissa overlying the anterolateral proximal left lower leg, presumably the site of the reported laceration. There is coarse of this atherosclerotic calcification of the visualized distal superficial femoral artery extending into the popliteal and infrapopliteal arteries. There is no definite fracture or dislocation identified in the visualized bones. Degenerative changes at the ankle joint and knee joint include joint space narrowing. IMPRESSION: 1. Subcutaneous fluid collection overlying the distal lateral margin of the left thigh as described above. 2. No bony fracture or dislocation. <Electronically signed by Doug Maxwell MD in OV> 09/16/17 1600 Dictated By: Doug Maxwell MD Dictated Date/Time: 09/16/17 1600 Transcribed Date/Time: 09/16/17 1555 Copy to: Assess/Plan/Problems-Billing Assessment: This is a frail, 57 year old female with PMHx of ESRD on PD, cardiomyopathy, RA ; s/p fall with large laceration to LLE with intractable pain and inability to ambulate, admitted for same. - Patient Problems (1) Laceration of left lower leg Current Visit: Yes Status: Acute Code(s): S81.812A - LACERATION WITHOUT FOREIGN BODY, LEFT LOWER LEG, INIT ENCNTR SNOMED Code(s): 104992499 Comment: - Brissa removed - Surgery following, continue local wound care - dressing intact with a small of amount of serosangous drainage noted to the dressing - CT LLE as above, no fracture - Continue physical activity per PT recs (2) Anemia Current Visit: No Status: Acute Code(s): D64.9 - ANEMIA, UNSPECIFIED SNOMED Code(s): 438085058 Comment: - 2/2 ESRD/chronic disease and iron deficiency - H&H stable at baseline - Was previously on iron suplementation, monitor H&H (3) Anxiety Current Visit: No Status: Acute Priority: High Onset Date: 01/26/14 Code (s): F41.9 - ANXIETY DISORDER, UNSPECIFIED SNOMED Code(s): 63751452 Comment: - Continue sertraline daily - Ativan added last night, mood stable (4) Chronic pain Current Visit: No Status: Acute Code(s): G89.29 - OTHER CHRONIC PAIN SNOMED Code(s): 32260909 Comment: - Acute on chronic now with laceration - Continue methadone 5mg daily and ok for percocet for breakthru, mentation is intact, continues to have pain in left lower leg (5) Contusion, lip Current Visit: No Status: Acute Code(s): S00.531A - CONTUSION OF LIP, INITIAL ENCOUNTER SNOMED Code(s): 33530823 Comment: stable, will resolve with time (6) End stage renal failure on dialysis Current Visit: No Status: Acute Code(s): N18.6 - END STAGE RENAL DISEASE; Z99.2 - DEPENDENCE ON RENAL DIALYSIS SNOMED Code(s): 867462231 Comment: - PD nightly - SW to find appropriate [facility] that can accommodate PD - Referrals made 09/19 - May need to transfer to swing bed on saturday. (7) DVT prophylaxis Current Visit: No Status: Acute Priority: High Onset Date: 09/08/14 Code (s): [id number] - SNOMED Code(s): 222815874 Comment: - Heparin SQ (8) Full code status Current Visit: No Status: Acute Onset Date: 09/08/14 Code(s): Z78.9 - OTHER SPECIFIED HEALTH STATUS SNOMED Code(s): 315628749 Status and Disposition: Remain inpatient, plan for [facility] for strengthening and gait training and then refer to [facility] after. Patient and her son are agreeable to this plan. SW working on placement. May have to be placed on Swing Status if we are unable to get an accepting facility.
[2017-09-21] MEDS: LORazepam TAB(*) 1 MG PO PRN (18:19)
[2017-09-22] MEDS: Heparin VIAL(*) 5000 UNITS/ML VIAL (FIVE THOUSAND) SUBCUT SCH ×3 (05:38→21:02)
[2017-09-22] MEDS: oxyCODONE/Acetamin 5/325 MG* TAB PO PRN ×2 (06:09→13:58)
[2017-09-22] MEDS: Sertraline* 50 MG TAB PO SCH (10:15)
[2017-09-22] MEDS: Calcitriol CAP* 0.25 MCG PO SCH (10:15)
[2017-09-22] MEDS: ALISKIREN 300 MG PO SCH (10:15)
[2017-09-22] MEDS: Methadone TAB* 5 MG PO SCH (10:15)
[2017-09-22] MEDS: Carvedilol TAB* 25 MG PO SCH ×2 (10:15→21:00)
[2017-09-22] MEDS: Aspirin EC TAB* 81 MG TAB.EC PO SCH (10:15)
[2017-09-22] MEDS: Mupirocin 2% OINT* TUBE TOPICAL SCH (10:17)
[2017-09-22] MEDS: LORazepam TAB(*) 1 MG PO PRN (13:58)
--- NOTE | 2017-09-22 17:47 | PN ---
Subjective Date of Service: 09/22/17 Interval History: Continues to c/o severe pain in left ankle with movement and at rest. Denies chest pain or shortness of breath. denies and abdominal pain, n/v/d. Family History: Unchanged from Admission Social History: Unchanged from Admission Past Medical History: Unchanged from Admission Objective Active Medications: Acetaminophen (Tylenol Tab*) 650 mg PO Q4H PRN PRN Reason: FEVER/PAIN Last Admin: 09/20/17 21:14 Dose: 650 mg Aliskiren (Tekturna Tab*) 300 mg PO DAILY [facility] Last Admin: 09/22/17 10:15 Dose: 300 mg Aspirin (Aspirin Ec Tab*) 81 mg PO DAILY [facility] Last Admin: 09/22/17 10:15 Dose: 81 mg Calcitriol (Rocaltrol Cap*) 0.25 mcg PO DAILY [facility] Last Admin: 09/22/17 10:15 Dose: 0.25 mcg Carvedilol (Coreg Tab*) 25 mg PO BID [facility] Last Admin: 09/22/17 10:15 Dose: 25 mg Heparin Sodium (Porcine) (Heparin Vial(*)) 5,000 units SUBCUT Q8HR [facility] Last Admin: 09/22/17 14:00 Dose: 5,000 units Lorazepam (Ativan Tab(*)) 2 mg PO Q6H PRN PRN Reason: ANXIETY Last Admin: 09/22/17 13:58 Dose: 2 mg Methadone HCl (Dolophine Tab*) 5 mg PO DAILY [facility] Last Admin: 09/22/17 10:15 Dose: 5 mg Mupirocin (Bactroban 2 % Oint*) 1 applic TOPICAL DAILY [facility] Last Admin: 09/22/17 10:17 Dose: 1 applic Oxycodone/Acetaminophen (Percocet 5/325 Tab*) 1 tab PO Q6H PRN PRN Reason: PAIN Last Admin: 09/22/17 13:58 Dose: 1 tab Sertraline HCl (Zoloft*) 50 mg PO DAILY [facility] Last Admin: 09/22/17 10:15 Dose: 50 mg Vital Signs - 8 hr 09/22/17 09/22/17 09/22/17 10:15 12:15 13:58 Respiratory 18 18 18 Rate Oxygen Devices in Use Now: Nasal Cannula Appearance: alert, appears uncomfortable resting in bed, color pale Eyes: No Scleral Icterus Ears/Nose/Mouth/Throat: Clear Oropharnyx, Mucous Membranes Moist Neck: NL Appearance and Movements; NL JVP, Trachea Midline Respiratory: Symmetrical Chest Expansion and Respiratory Effort, Clear to Auscultation - diminished in the bases bilat with few scaatered crackles Cardiovascular: - - no JVD, irregular rate Abdominal: NL Sounds; No Tenderness; No Distention Extremities: No Edema, No Clubbing, Cyanosis Skin: - - large laceration extending from just below the knee to ankle the left lower leg, purple discoloration noted, there is some skin approximation noted throughout the laceration, open area noted to the mid pelaez, no redness, small amount of serosangous drainage noted . blistering noted to left heel Neurological: Alert and Oriented x 3 Nutrition: Taking PO's Result Diagrams: 09/19/17 05:55 09/17/17 06:45 Additional Lab and Data: Lab Results 09/16/17 09/16/17 09/16/17 Range/Units 12:28 12:28 12:28 WBC 7.1 (3.5-10.8) 10^3/ul RBC 3.29 L (4.0-5.4) 10^6/ul Hgb 9.7 L (12.0-16.0) g/dl Hct 30 L (35-47) % MCV 90 (80-97) fL MCH 29 (27-31) pg MCHC 33 (31-36) g/dl RDW 16 H (10.5-15) % Plt Count 183 (150-450) 10^3/ul MPV 7.8 (7.4-10.4) um3 Neut % (Auto) 70.5 (38-83) % Lymph % (Auto) 11.9 L (25-47) % Steele % (Auto) 10.1 H (0-7) % Eos % (Auto) 6.8 H (0-6) % Baso % (Auto) 0.7 (0-2) % Absolute Neuts (auto) 5.0 (1.5-7.7) 10^3/ul Absolute Lymphs (auto) 0.8 L (1.0-4.8) 10^3/ul Absolute Monos (auto) 0.7 (0-0.8) 10^3/ul Absolute Eos (auto) 0.5 (0-0.6) 10^3/ul Absolute Basos (auto) 0 (0-0.2) 10^3/ul Absolute Nucleated RBC 0 10^3/ul Nucleated RBC % 0 INR (Anticoag Therapy) 0.90 (0.77-1.02) Sodium 136 L (139-145) mmol/L Potassium 4.1 (3.5-5.0) mmol/L Chloride 97 L (101-111) mmol/L Carbon Dioxide 30 (22-32) mmol/L Anion Gap 9 (2-11) mmol/L BUN 46 H (6-24) mg/dL Creatinine 7.48 H (0.51-0.95) mg/dL Est GFR ( Amer) 7.2 (>60) Est GFR (Non-Af Amer) 5.6 (>60) BUN/Creatinine Ratio 6.1 L (8-20) Glucose 92 (70-100) mg/dL Calcium 8.9 (8.6-10.3) mg/dL Total Bilirubin 0.20 (0.2-1.0) mg/dL AST 10 L (13-39) U/L ALT < 3 L (7-52) U/L Alkaline Phosphatase 51 (34-104) U/L C-Reactive Protein 93.21 H (< 5.00) mg/L Total Protein 5.0 L (6.4-8.9) g/dL Albumin 2.3 L (3.2-5.2) g/dL Globulin 2.7 (2-4) g/dL Albumin/Globulin Ratio 0.9 L (1-3) Diagnostic Imaging: Patient Name: EDWARDO GUILLEN Medical Record#: [id number] Ordering Physician: Audie Duffy COLOR MATCHER Acct.#: [id number] : 1960 Age: 57 Sex: F Location: [address] [place] [address] MEDICAL Exam Date: 09/16/17 1358 ADM Status: ADM IN Order Information: CT EXTREMITY LOWER LEFT WO Accession Number: [id number] CPT: 38667 INDICATION: Left lower extremity laceration and hip pain after a fall COMPARISON: Same day CT of the pelvis dated September 16, 2017 TECHNIQUE: Noncontrast CT examination of the left lower leg.. Axial images were acquired and sagittal and coronal reformats were created and independently analyzed. FINDINGS: There is widespread infiltration of the subcutaneous tissue. Extending down the lateral margin of the thigh there is a subcutaneous fluid collection extending as far as the level of the knee joint. This fluid collection measures up to 2.1 x 6.3 cm in the axial plane. More inferiorly there are surgical skin brissa overlying the anterolateral proximal left lower leg, presumably the site of the reported laceration. There is coarse of this atherosclerotic calcification of the visualized distal superficial femoral artery extending into the popliteal and infrapopliteal arteries. There is no definite fracture or dislocation identified in the visualized bones. Degenerative changes at the ankle joint and knee joint include joint space narrowing. IMPRESSION: 1. Subcutaneous fluid collection overlying the distal lateral margin of the left thigh as described above. 2. No bony fracture or dislocation. <Electronically signed by Doug Maxwell MD in [facility]> 09/16/17 1600 Dictated By: Doug Maxwell MD Dictated Date/Time: 09/16/17 1600 Transcribed Date/Time: 09/16/17 1555 Copy to: Assess/Plan/Problems-Billing Assessment: This is a frail, 57 year old female with PMHx of ESRD on PD, cardiomyopathy, RA ; s/p fall with large laceration to LLE with intractable pain and inability to ambulate, admitted for same. - Patient Problems (1) Laceration of left lower leg Current Visit: Yes Status: Acute Code(s): S81.812A - LACERATION WITHOUT FOREIGN BODY, LEFT LOWER LEG, INIT ENCNTR SNOMED Code(s): 276896903 Comment: - Brissa removed- 1 remaining staple at the distal laceration just above the ankle - Surgery following, continue local wound care - dressing removed and wound evaluated- large laceration extending from just below the knee to the left ankle, small open area noted to mid pelaez, small amount of serosangous drainage. Skin is warm to touch pedal pulses are +1, sensation is intact. - reports significant pain in left ankle with movement- will get CT with contrast to R/O abscess, reevaluate for fracture d/t unproportional pain (2) Anemia Current Visit: No Status: Acute Code(s): D64.9 - ANEMIA, UNSPECIFIED SNOMED Code(s): 772845384 Comment: - 2/2 ESRD/chronic disease and iron deficiency - H&H stable at baseline - monitor H&H (3) Anxiety Current Visit: No Status: Acute Priority: High Onset Date: 01/26/14 Code (s): F41.9 - ANXIETY DISORDER, UNSPECIFIED SNOMED Code(s): 25595448 Comment: - Continue sertraline daily - Ativan added last night, mood stable (4) Chronic pain Current Visit: No Status: Acute Code(s): G89.29 - OTHER CHRONIC PAIN SNOMED Code(s): 87857790 Comment: - Acute on chronic now with laceration - Continue methadone 5mg daily and ok for percocet for breakthru, mentation is intact, continues to have pain in left lower leg (5) Contusion, lip Current Visit: No Status: Acute Code(s): S00.531A - CONTUSION OF LIP, INITIAL ENCOUNTER SNOMED Code(s): 81996248 Comment: stable, will resolve with time (6) End stage renal failure on dialysis Current Visit: No Status: Acute Code(s): N18.6 - END STAGE RENAL DISEASE; Z99.2 - DEPENDENCE ON RENAL DIALYSIS SNOMED Code(s): 256589156 Comment: - PD nightly - SW to find appropriate [facility] that can accommodate PD - Referrals made 09/19 - May need to transfer to swing bed on saturday. (7) DVT prophylaxis Current Visit: No Status: Acute Priority: High Onset Date: 09/08/14 Code (s): YJE5427 - SNOMED Code(s): 592338445 Comment: - Heparin SQ (8) Full code status Current Visit: No Status: Acute Onset Date: 09/08/14 Code(s): Z78.9 - OTHER SPECIFIED HEALTH STATUS SNOMED Code(s): 004500349 Status and Disposition: Remain inpatient, plan for [facility] for strengthening and gait training and then refer to [facility] after. Patient and her son are agreeable to this plan. SW working on placement. May have to be placed on Swing Status if we are unable to get an accepting facility.
[2017-09-22] MEDS ORDERED: Iodixanol* (CONTRAST) 320 MG/ML 100 ML SDV IV ONE (18:35)
[2017-09-23] MEDS: Heparin VIAL(*) 5000 UNITS/ML VIAL (FIVE THOUSAND) SUBCUT SCH ×3 (05:31→21:40)
[2017-09-23] MEDS: Calcitriol CAP* 0.25 MCG PO SCH (08:28)
[2017-09-23] MEDS: oxyCODONE/Acetamin 5/325 MG* TAB PO PRN ×2 (08:29→20:46)
[2017-09-23] MEDS: Carvedilol TAB* 25 MG PO SCH ×2 (08:29→20:44)
[2017-09-23] MEDS: Sertraline* 50 MG TAB PO SCH (08:29)
[2017-09-23] MEDS: Aspirin EC TAB* 81 MG TAB.EC PO SCH (08:29)
[2017-09-23] MEDS: Methadone TAB* 5 MG PO SCH (08:30)
[2017-09-23] MEDS: LORazepam TAB(*) 1 MG PO PRN ×2 (08:31→20:46)
[2017-09-23] MEDS: ALISKIREN 300 MG PO SCH (08:31)
[2017-09-23] MEDS: Mupirocin 2% OINT* TUBE TOPICAL SCH (08:32)
[2017-09-23 09:58] LABS: ABS Basophils 0 10^3/ul (0-0.2); ABS Eosinophils 0.3 10^3/ul (0-0.6); ABS Lymphocytes 1.1 10^3/ul (1.0-4.8); ABS Monocytes 0.5 10^3/ul (0-0.8); ABS Neutrophils 3.1 10^3/ul (1.5-7.7); ABS Nucleated RBC 0 10^3/ul; Eosinophil % 6.3 % (0-6); Hematocrit 27 % (35-47); Hemoglobin 9.1 g/dl (12.0-16.0); Mean Corpuscular HGB Conc 33 g/dl (31-36); Mean Corpuscular Hemoglobin 30 pg (27-31); Mean Corpuscular Volume 90 fL (80-97); Mean Platelet Volume 6.9 um3 (7.4-10.4); Nucleated Red Blood Cells % 0.1; Platelet Count 240 10^3/ul (150-450); Red Blood Count 3.06 10^6/ul (4.0-5.4); Red Cell Distribution Width 16 % (10.5-15)
[2017-09-23 10:12] LABS: EGFR Non-African American 6.2 (>60)
[2017-09-23] MEDS ORDERED: Iodixanol* (CONTRAST) 320 MG/ML 100 ML SDV IV ONE (13:21)
--- NOTE | 2017-09-23 15:35 | RAD ---
INDICATION: Severe ankle pain disproportionate to injury. COMPARISON: Comparison is made with a prior x-ray study of the left lower extremity from September 16, 2017. TECHNIQUE: Contiguous axial sections were obtained of the lower legs. Images were reconstructed in the sagittal and coronal planes. The exam was performed following intravenous injection of 100 mL of Visipaque nonionic contrast. FINDINGS: There is soft tissue swelling present throughout the left lower leg. There is a soft tissue defect present along the anterolateral aspect of the distal lower leg. No fluid collection or abscess is seen. No periosteal reaction or erosive changes seen. There is a moderate to high-grade stenosis in the left popliteal artery. There is diffuse calcific plaque present in the lower leg runoff vessels which appear grossly patent. IMPRESSION: 1. SOFT TISSUE SWELLING AND SOFT TISSUE DEFECT IN THE LEFT LOWER LEG. NO ABSCESS IS SEEN. THERE IS NO EVIDENCE FOR OSTEOMYELITIS. IF THIS IS OF CLINICAL CONCERN CONSIDER A BONE SCAN OR MR IMAGING FOR FURTHER EVALUATION. 2. MODERATE TO HIGH-GRADE STENOSIS IN THE LEFT POPLITEAL ARTERY.
[2017-09-23] MEDS ORDERED: Heparin DIALYSIS ONLY(*) 1,000 UNITS/ML VIAL DIALYSIS ONE (17:00)
--- NOTE | 2017-09-23 19:32 | PN ---
Subjective Date of Service: 09/23/17 Interval History: States that left lower leg pain is improved today. Denies chest pain or shortness of breath. Denies Abd pain n/v/d. states she did well with PT today. Family History: Unchanged from Admission Social History: Unchanged from Admission Past Medical History: Unchanged from Admission Objective Active Medications: Acetaminophen (Tylenol Tab*) 650 mg PO Q4H PRN PRN Reason: FEVER/PAIN Last Admin: 09/20/17 21:14 Dose: 650 mg Aliskiren (Tekturna Tab*) 300 mg PO DAILY [facility] Last Admin: 09/23/17 08:31 Dose: 300 mg Aspirin (Aspirin Ec Tab*) 81 mg PO DAILY [facility] Last Admin: 09/23/17 08:29 Dose: 81 mg Calcitriol (Rocaltrol Cap*) 0.25 mcg PO DAILY [facility] Last Admin: 09/23/17 08:28 Dose: 0.25 mcg Carvedilol (Coreg Tab*) 25 mg PO BID [facility] Last Admin: 09/23/17 08:29 Dose: 25 mg Heparin Sodium (Porcine) (Heparin Vial(*)) 5,000 units SUBCUT Q8HR [facility] Last Admin: 09/23/17 15:35 Dose: 5,000 units Lorazepam (Ativan Tab(*)) 2 mg PO Q6H PRN PRN Reason: ANXIETY Last Admin: 09/23/17 08:31 Dose: 2 mg Methadone HCl (Dolophine Tab*) 5 mg PO DAILY [facility] Last Admin: 09/23/17 08:30 Dose: 5 mg Mupirocin (Bactroban 2 % Oint*) 1 applic TOPICAL DAILY [facility] Last Admin: 09/23/17 08:32 Dose: 1 applic Oxycodone/Acetaminophen (Percocet 5/325 Tab*) 1 tab PO Q6H PRN PRN Reason: PAIN Last Admin: 09/23/17 08:29 Dose: 1 tab Sertraline HCl (Zoloft*) 50 mg PO DAILY [facility] Last Admin: 09/23/17 08:29 Dose: 50 mg Vital Signs - 8 hr 09/23/17 09/23/17 09/23/17 11:23 14:32 16:10 Temperature 98.0 F 97.8 F 98.2 F Pulse Rate 77 75 79 Respiratory 15 18 Rate Blood Pressure 115/62 134/71 150/70 (mmHg) O2 Sat by Pulse 91 95 95 Oximetry Oxygen Devices in Use Now: Nasal Cannula Appearance: Color sallow, appears comfortable resting in bed Eyes: No Scleral Icterus Ears/Nose/Mouth/Throat: Clear Oropharnyx, Mucous Membranes Moist Neck: NL Appearance and Movements; NL JVP, Trachea Midline Respiratory: Symmetrical Chest Expansion and Respiratory Effort, Clear to Auscultation Cardiovascular: NL Sounds; No Murmurs; No JVD, No Edema Abdominal: NL Sounds; No Tenderness; No Distention Extremities: No Edema, No Clubbing, Cyanosis Skin: - - see imaging below Neurological: Alert and Oriented x 3, NL Muscle Strength and Tone Result Diagrams: 09/23/17 09:50 09/23/17 09:50 Additional Lab and Data: Lab Results 09/16/17 09/16/17 09/16/17 Range/Units 12:28 12:28 12:28 WBC 7.1 (3.5-10.8) 10^3/ul RBC 3.29 L (4.0-5.4) 10^6/ul Hgb 9.7 L (12.0-16.0) g/dl Hct 30 L (35-47) % MCV 90 (80-97) fL MCH 29 (27-31) pg MCHC 33 (31-36) g/dl RDW 16 H (10.5-15) % Plt Count 183 (150-450) 10^3/ul MPV 7.8 (7.4-10.4) um3 Neut % (Auto) 70.5 (38-83) % Lymph % (Auto) 11.9 L (25-47) % [place] % (Auto) 10.1 H (0-7) % Eos % (Auto) 6.8 H (0-6) % Baso % (Auto) 0.7 (0-2) % Absolute Neuts (auto) 5.0 (1.5-7.7) 10^3/ul Absolute Lymphs (auto) 0.8 L (1.0-4.8) 10^3/ul Absolute Monos (auto) 0.7 (0-0.8) 10^3/ul Absolute Eos (auto) 0.5 (0-0.6) 10^3/ul Absolute Basos (auto) 0 (0-0.2) 10^3/ul Absolute Nucleated RBC 0 10^3/ul Nucleated RBC % 0 INR (Anticoag Therapy) 0.90 (0.77-1.02) Sodium 136 L (139-145) mmol/L Potassium 4.1 (3.5-5.0) mmol/L Chloride 97 L (101-111) mmol/L Carbon Dioxide 30 (22-32) mmol/L Anion Gap 9 (2-11) mmol/L BUN 46 H (6-24) mg/dL Creatinine 7.48 H (0.51-0.95) mg/dL Est GFR ( Amer) 7.2 (>60) Est GFR (Non-Af Amer) 5.6 (>60) BUN/Creatinine Ratio 6.1 L (8-20) Glucose 92 (70-100) mg/dL Calcium 8.9 (8.6-10.3) mg/dL Total Bilirubin 0.20 (0.2-1.0) mg/dL AST 10 L (13-39) U/L ALT < 3 L (7-52) U/L Alkaline Phosphatase 51 (34-104) U/L C-Reactive Protein 93.21 H (< 5.00) mg/L Total Protein 5.0 L (6.4-8.9) g/dL Albumin 2.3 L (3.2-5.2) g/dL Globulin 2.7 (2-4) g/dL Albumin/Globulin Ratio 0.9 L (1-3) Diagnostic Imaging: Assess/Plan/Problems-Billing Assessment: This is a frail, 57 year old female with PMHx of ESRD on PD, cardiomyopathy, RA ; s/p fall with large laceration to LLE with intractable pain and inability to ambulate, admitted for same. - Patient Problems (1) Laceration of left lower leg Current Visit: Yes Status: Acute Code(s): S81.812A - LACERATION WITHOUT FOREIGN BODY, LEFT LOWER LEG, INIT ENCNTR SNOMED Code(s): 033192251 Comment: - [place] removed- 1 remaining staple at the distal laceration just above the ankle- removed today - Surgery following, continue local wound care - dressing removed and wound evaluated- large laceration extending from just below the knee to the left ankle, small open area noted to mid pelaez, small amount of serosangous drainage. Skin is warm to touch pedal pulses are +1, sensation is intact. - reports significant pain in left ankle with movement- will get CT with contrast to R/O abscess, reevaluate for fracture d/t unproportional pain- CT negative - PT evaluation - refer to picture attached to this document for further description of the wound.- pt gave verbal consented to imaging (2) Anemia Current Visit: No Status: Acute Code(s): D64.9 - ANEMIA, UNSPECIFIED SNOMED Code(s): 265171777 Comment: - 2/2 ESRD/chronic disease and iron deficiency - H&H stable at baseline - monitor H&H (3) Anxiety Current Visit: No Status: Acute Priority: High Onset Date: 01/26/14 Code (s): F41.9 - ANXIETY DISORDER, UNSPECIFIED SNOMED Code(s): 89796613 Comment: - Continue sertraline daily - Ativan added last night, mood stable (4) Chronic pain Current Visit: No Status: Acute Code(s): G89.29 - OTHER CHRONIC PAIN SNOMED Code(s): 42691056 Comment: - Acute on chronic now with laceration - Continue methadone 5mg daily and ok for percocet for breakthru, mentation is intact, continues to have pain in left lower leg (5) Contusion, lip Current Visit: No Status: Acute Code(s): S00.531A - CONTUSION OF LIP, INITIAL ENCOUNTER SNOMED Code(s): 93597335 Comment: stable, will resolve with time (6) End stage renal failure on dialysis Current Visit: No Status: Acute Code(s): N18.6 - END STAGE RENAL DISEASE; Z99.2 - DEPENDENCE ON RENAL DIALYSIS SNOMED Code(s): 591014860 Comment: - PD nightly - SW to find appropriate [facility] that can accommodate PD - Referrals made 09/19 - waitinf for bed (7) DVT prophylaxis Current Visit: No Status: Acute Priority: High Onset Date: 09/08/14 Code (s): MUH2126 - SNOMED Code(s): 425200910 Comment: - Heparin SQ (8) Full code status Current Visit: No Status: Acute Onset Date: 09/08/14 Code(s): Z78.9 - OTHER SPECIFIED HEALTH STATUS SNOMED Code(s): 254709586 Status and Disposition: Remain inpatient, plan for [facility] for strengthening and gait training and then refer to [facility] after. Patient and her son are agreeable to this plan. SW working on placement. May have to be placed on Swing Status if we are unable to get an accepting facility.
[2017-09-24] MEDS: oxyCODONE/Acetamin 5/325 MG* TAB PO PRN (03:12)
[2017-09-24] MEDS: Heparin VIAL(*) 5000 UNITS/ML VIAL (FIVE THOUSAND) SUBCUT SCH ×3 (05:46→21:54)
[2017-09-24] MEDS: ALISKIREN 300 MG PO SCH (09:14)
[2017-09-24] MEDS: Sertraline* 50 MG TAB PO SCH (09:15)
[2017-09-24] MEDS: Calcitriol CAP* 0.25 MCG PO SCH (09:15)
[2017-09-24] MEDS: Carvedilol TAB* 25 MG PO SCH ×2 (09:15→20:08)
[2017-09-24] MEDS: Methadone TAB* 5 MG PO SCH (09:15)
[2017-09-24] MEDS: Aspirin EC TAB* 81 MG TAB.EC PO SCH (09:15)
[2017-09-24] MEDS: Mupirocin 2% OINT* TUBE TOPICAL SCH (09:18)
[2017-09-24] MEDS ORDERED: Heparin DIALYSIS ONLY(*) 1,000 UNITS/ML VIAL DIALYSIS ONE (17:00)
[2017-09-24] MEDS: LORazepam TAB(*) 1 MG PO PRN (18:29)
[2017-09-24] MEDS: Acetaminophen TAB* 325 MG PO PRN (18:30)
[2017-09-24] MEDS ORDERED: oxyCODONE/Acetamin 5/325 MG* TAB PO PRN (18:53)
[2017-09-24] MEDS: Bacitracin OINTMENT* 0.5% 0.5 oz TUBE TOPICAL SCH (20:11)
--- NOTE | 2017-09-24 22:16 | PN ---
Subjective Date of Service: 09/24/17 Interval History: States that she is feeling better today, continue to have mild pain in left lower leg, worse with movement. Denies chest pain or shortness of breath. Denies abd pain or n/v/d. denies fever or chills Family History: Unchanged from Admission Social History: Unchanged from Admission Past Medical History: Unchanged from Admission Objective Active Medications: Acetaminophen (Tylenol Tab*) 650 mg PO Q4H PRN PRN Reason: FEVER/PAIN Last Admin: 09/24/17 18:30 Dose: 650 mg Aliskiren (Tekturna Tab*) 300 mg PO DAILY [facility] Last Admin: 09/24/17 09:14 Dose: 300 mg Aspirin (Aspirin Ec Tab*) 81 mg PO DAILY [facility] Last Admin: 09/24/17 09:15 Dose: 81 mg Bacitracin (Bacitracin Ointment*) 1 applic TOPICAL DAILY [facility] Last Admin: 09/24/17 20:11 Dose: Not Given Calcitriol (Rocaltrol Cap*) 0.25 mcg PO DAILY [facility] Last Admin: 09/24/17 09:15 Dose: 0.25 mcg Carvedilol (Coreg Tab*) 25 mg PO BID [facility] Last Admin: 09/24/17 20:08 Dose: 25 mg Heparin Sodium (Porcine) (Heparin Vial(*)) 5,000 units SUBCUT Q8HR [facility] Last Admin: 09/24/17 21:54 Dose: 5,000 units Lorazepam (Ativan Tab(*)) 2 mg PO Q6H PRN PRN Reason: ANXIETY Last Admin: 09/24/17 18:29 Dose: 2 mg Mupirocin (Bactroban 2 % Oint*) 1 applic TOPICAL DAILY [facility] Last Admin: 09/24/17 09:18 Dose: Not Given Oxycodone/Acetaminophen (Percocet 5/325 Tab*) 1 tab PO Q6H PRN PRN Reason: PAIN Last Admin: 09/24/17 20:08 Dose: 1 tab Sertraline HCl (Zoloft*) 50 mg PO DAILY [facility] Last Admin: 09/24/17 09:15 Dose: 50 mg Vital Signs - 8 hr 09/24/17 09/24/17 09/24/17 14:20 15:55 18:29 Temperature 97.8 F Pulse Rate 71 Respiratory 18 16 22 Rate Blood Pressure 165/85 (mmHg) O2 Sat by Pulse 100 Oximetry 09/24/17 09/24/17 09/24/17 18:37 19:39 20:08 Temperature 97.5 F Pulse Rate 72 Respiratory 20 18 18 Rate Blood Pressure 186/89 (mmHg) O2 Sat by Pulse 100 Oximetry 09/24/17 09/24/17 20:10 21:56 Temperature Pulse Rate Respiratory 18 18 Rate Blood Pressure (mmHg) O2 Sat by Pulse Oximetry Oxygen Devices in Use Now: Nasal Cannula Appearance: color pale, appear comfortable sitting in the bed encouraged to the patient to get out of bed. Eyes: No Scleral Icterus Ears/Nose/Mouth/Throat: Clear Oropharnyx, Mucous Membranes Moist Neck: NL Appearance and Movements; NL JVP Respiratory: Symmetrical Chest Expansion and Respiratory Effort, Clear to Auscultation Cardiovascular: NL Sounds; No Murmurs; No JVD Abdominal: NL Sounds; No Tenderness; No Distention Extremities: No Edema, No Clubbing, Cyanosis, - - bilat arms and legs with bruising noted. Left lower leg with dressing intact, pepal pulses +2 bilat. Skin: - - please refer to 09/23 dianostic image for picture discription of the large lower leg wound. blistering noted to left heel, no open area Neurological: Alert and Oriented x 3 Nutrition: Taking PO's Result Diagrams: 09/23/17 09:50 09/23/17 09:50 Additional Lab and Data: Lab Results 09/16/17 09/16/17 09/16/17 Range/Units 12:28 12:28 12:28 WBC 7.1 (3.5-10.8) 10^3/ul RBC 3.29 L (4.0-5.4) 10^6/ul Hgb 9.7 L (12.0-16.0) g/dl Hct 30 L (35-47) % MCV 90 (80-97) fL MCH 29 (27-31) pg MCHC 33 (31-36) g/dl RDW 16 H (10.5-15) % Plt Count 183 (150-450) 10^3/ul MPV 7.8 (7.4-10.4) um3 Neut % (Auto) 70.5 (38-83) % Lymph % (Auto) 11.9 L (25-47) % [place] % (Auto) 10.1 H (0-7) % Eos % (Auto) 6.8 H (0-6) % Baso % (Auto) 0.7 (0-2) % Absolute Neuts (auto) 5.0 (1.5-7.7) 10^3/ul Absolute Lymphs (auto) 0.8 L (1.0-4.8) 10^3/ul Absolute Monos (auto) 0.7 (0-0.8) 10^3/ul Absolute Eos (auto) 0.5 (0-0.6) 10^3/ul Absolute Basos (auto) 0 (0-0.2) 10^3/ul Absolute Nucleated RBC 0 10^3/ul Nucleated RBC % 0 INR (Anticoag Therapy) 0.90 (0.77-1.02) Sodium 136 L (139-145) mmol/L Potassium 4.1 (3.5-5.0) mmol/L Chloride 97 L (101-111) mmol/L Carbon Dioxide 30 (22-32) mmol/L Anion Gap 9 (2-11) mmol/L BUN 46 H (6-24) mg/dL Creatinine 7.48 H (0.51-0.95) mg/dL Est GFR ( Amer) 7.2 (>60) Est GFR (Non-Af Amer) 5.6 (>60) BUN/Creatinine Ratio 6.1 L (8-20) Glucose 92 (70-100) mg/dL Calcium 8.9 (8.6-10.3) mg/dL Total Bilirubin 0.20 (0.2-1.0) mg/dL AST 10 L (13-39) U/L ALT < 3 L (7-52) U/L Alkaline Phosphatase 51 (34-104) U/L C-Reactive Protein 93.21 H (< 5.00) mg/L Total Protein 5.0 L (6.4-8.9) g/dL Albumin 2.3 L (3.2-5.2) g/dL Globulin 2.7 (2-4) g/dL Albumin/Globulin Ratio 0.9 L (1-3) Diagnostic Imaging: Assess/Plan/Problems-Billing Assessment: This is a frail, 57 year old female with PMHx of ESRD on PD, cardiomyopathy, RA ; s/p fall with large laceration to LLE with intractable pain and inability to ambulate, admitted for same. - Patient Problems (1) Laceration of left lower leg Current Visit: Yes Status: Acute Code(s): S81.812A - LACERATION WITHOUT FOREIGN BODY, LEFT LOWER LEG, INIT ENCNTR SNOMED Code(s): 040742790 Comment: - [place] removed- - continue local wound care- spoke to wound care today - continue with bacitran and telfa dressing to left lower leg. - dressing removed and wound evaluated- large laceration extending from just below the knee to the left ankle, Skin is warm to touch pedal pulses are +1, sensation is intact. - reports pain in left ankle has improved No signs of infection - PT evaluation - refer to picture attached to this document for further description of the wound.- pt gave verbal consented to imaging (2) Anemia Current Visit: No Status: Acute Code(s): D64.9 - ANEMIA, UNSPECIFIED SNOMED Code(s): 457757273 Comment: - 2/2 ESRD/chronic disease and iron deficiency - H&H stable at baseline - monitor H&H (3) Anxiety Current Visit: No Status: Acute Priority: High Onset Date: 01/26/14 Code (s): F41.9 - ANXIETY DISORDER, UNSPECIFIED SNOMED Code(s): 37100079 Comment: - Continue sertraline daily - Ativan added, mood stable (4) Chronic pain Current Visit: No Status: Acute Code(s): G89.29 - OTHER CHRONIC PAIN SNOMED Code(s): 14058257 Comment: - Acute on chronic now with laceration - Continue percocet for pain mentation is intact, continues to have pain in left lower leg (5) Contusion, lip Current Visit: No Status: Acute Code(s): S00.531A - CONTUSION OF LIP, INITIAL ENCOUNTER SNOMED Code(s): 10928064 Comment: stable, will resolve with time (6) End stage renal failure on dialysis Current Visit: No Status: Acute Code(s): N18.6 - END STAGE RENAL DISEASE; Z99.2 - DEPENDENCE ON RENAL DIALYSIS SNOMED Code(s): 962520406 Comment: - PD nightly - SW to find appropriate [facility] that can accommodate PD - waiting for bed (7) DVT prophylaxis Current Visit: No Status: Acute Priority: High Onset Date: 09/08/14 Code (s): IUT4341 - SNOMED Code(s): 018479383 Comment: - Heparin SQ (8) Full code status Current Visit: No Status: Acute Onset Date: 09/08/14 Code(s): Z78.9 - OTHER SPECIFIED HEALTH STATUS SNOMED Code(s): 767446081 Status and Disposition: Possible discharge tomorrow to short term rehab or will be placed in a swing bed.
[2017-09-25] MEDS: Heparin VIAL(*) 5000 UNITS/ML VIAL (FIVE THOUSAND) SUBCUT SCH (05:45)
[2017-09-25] MEDS: Carvedilol TAB* 25 MG PO SCH (08:43)
[2017-09-25] MEDS: ALISKIREN 300 MG PO SCH (08:43)
[2017-09-25] MEDS: Calcitriol CAP* 0.25 MCG PO SCH (08:43)
[2017-09-25] MEDS: Aspirin EC TAB* 81 MG TAB.EC PO SCH (08:43)
[2017-09-25] MEDS: Sertraline* 50 MG TAB PO SCH (08:43)
[2017-09-25] MEDS: Bacitracin OINTMENT* 0.5% 0.5 oz TUBE TOPICAL SCH (08:44)
[2017-09-25] MEDS: Mupirocin 2% OINT* TUBE TOPICAL SCH (08:44)
--- NOTE | 2017-09-25 11:44 | PN ---
Progress Note - Progress Note Date of Service: 09/25/17 SOAP: Subjective: She is being discharged to a [facility] in [place] today Still with pain in her left ankle. Objective: Temp Pulse Resp BP Pulse Ox 98.0 F 76 18 172/87 98 09/25/17 07:55 09/25/17 07:55 09/25/17 07:55 09/25/17 07:55 09/25/17 07:55 PEX: Left lower extremity without edema The lateral skin flap between knee and ankle is blistered and resolving and there is some underlying skin that is darker in color-there is no redness or drainage or odor. Open areas are clean and pink. No ankle edema Assessment: Large laceration and hematoma left leg. There is no sign of infection at this point but the flap of skin is beginning to "declare" itself and may need debridement in the next few days. It may form a protective eschar which may be optimal. Plan: Continue present wound care Elevation of leg leg and also protection of heel on the foot to prevent pressure ulcer. I discussed this with her. I would gladly follow up with her in [facility] wound center but distance may make this impossible.
[2017-09-25] MEDS: LORazepam TAB(*) 1 MG PO PRN (12:09)
--- NOTE | 2017-09-25 13:23 | DS ---
CC: Dr. Letty Duffy; Dr. Bianchi; Dr. Maxwell; Dr. Phillips * DATE OF ADMISSION: 09/16/2017. DATE OF DISCHARGE: 09/25/2017. PROVIDER: Elvia Cornell NP. ATTENDING PHYSICIAN: Dr. Pradeep Duffy *(dictated by Elvia Cornell NP). PRIMARY CARE PHYSICIAN: Dr. Letty Duffy. PRIMARY DIAGNOSES: 1. Fall. 2. Pain. 3. Large left lower leg laceration. SECONDARY DIAGNOSES: 1. End-stage renal disease with peritoneal dialysis. 2. Polycystic kidney disease. 3. Hypertension. 4. Cardiomyopathy with an EF of less than 30 percent. 5. CAD. 6. [place]. 7. CVA. 8. Rheumatoid arthritis. 9. Depression. STUDIES COMPLETED WHILE IN THE HOSPITAL: 1. She had a hip and pelvis x-ray on 09/16/2017: Radiologist's impression: (1 ) No evidence for acute fracture. If the patient's symptoms persist, recommend follow-up imaging. (2) Chronic fracture of the right iliac bone. (3) Sclerosis within the femoral heads, unchanged suggesting the possibility of avascular necrosis. 2. She had a knee x-ray on 09/16/2017: No acute bony changes. 3. She had an electrocardiogram on 09/16/2017 which showed a sinus rhythm at a rate of 76. 4. She had a CT of the lower extremity on 09/16/2017: Radiologist's impression : Subcutaneous fluid collection overlying the distal lateral margin of the left thigh, measures 2.1 x 6.3 cm in the axial plane. There was no bony fracture or dislocation. 5. She had a CT of the pelvis on 09/16/2017: Radiologist's impression: No acute pelvic fracture. Arthritic changes about the hips. There is sclerosis and cystic changes about both femoral heads and the acetabula consistent with degenerative osteoarthritis. 6. She had a repeat CT of her lower extremity on 09/23/2017: Radiologist's impression: (1) Soft tissue swelling and soft tissue defect in the left lower leg. No abscess was seen. There was no evidence for osteomyelitis. (2) Moderate to high-grade stenosis in the left popliteal artery. DISCHARGE MEDICATIONS: New medication: 1. Bacitracin ointment, apply daily to left lower leg open wound. Continued home medications: 1. Enbrel 25 mg subcu q.7 days. 2. Oxycodone/acetaminophen 5/325 one tablet q.4 hours as needed for pain. 3. Zoloft 50 mg p.o. daily. 4. Ativan 2 mg p.o. q.6 hours as needed for anxiety. 5. Carvedilol 25 mg p.o. b.i.d. 6. Rocaltrol 0.25 mcg p.o. daily. 7. Tekturna 300 mg p.o. daily. 8. Aspirin enteric coated 81 mg p.o. daily. 9. Acetaminophen 650 mg p.o. q.4 hours as needed for pain, do not exceed more than 3,000 mg of Tylenol daily. HISTORY OF PRESENT ILLNESS AND HOSPITAL COURSE: Ms. Charles is a 57-year-old female who initially presented to the facility on September 14, states she was carrying her dialysis bags up two stairs and one bag slipped causing her to lose her balance and she fell and caught her leg on the stairs. She had a significant wound to her left lower extremity. She came to the ER that night. It was stapled and approximated in the ER. Unfortunately, her pain was not well controlled and she was admitted under observation for pain control that night. The next morning, she was up and says she walked with a walker. She went home, but unfortunately at home she was taking her Percocet every four hours. She said she was having more pain particularly now in the hip. It was not as much over the laceration, although anytime she tried to walk she could not and she needed help getting off the couch. She was having difficulty and trouble with ambulations and unable to manage at home. She was also noted to be becoming more drowsy and lethargic and not acting herself, and that was a concern, so EMS was summoned and she was brought to the hospital. Because of her altered mental status and worsening pain, we were asked to see her for admission. During her hospitalization, we have continued to monitor her. She has been receiving her peritoneal dialysis on a nightly basis without any issues. Her vital signs have been stable throughout her hospitalization. She does have periods of hypertension when her pain is exacerbated. The patient was also seen and treated by the Surgical team and wound management here. Dr. Phillips evaluated her on 09/25/2017. He had recommended that her dressing be changed daily, Bacitracin be applied to the wound daily, and then Vaseline gauze on top of 4 x 4's and wrapped loosing in cling. He is also recommending that she see a wound care consult in one week to help assist in further management. The patient did some some exquisite pain in her left ankle on 09/23/2017. A repeat CT was completed with contrast to rule out abscess in the lower extremity wound. The CT of the lower extremity was negative for any abscess or infection. She has not had a white count during this hospitalization. Her WBC on 09/23/2017 was 5.0, RBC was 3.06, hemoglobin was 9.1, hematocrit was 27 which is her baseline, platelet count was 240. Sodium was 134 on 09/23/2017, this is her baseline, potassium was 4.4, BUN was 48, creatinine was 6.84. She does complain of generalized joint pain due to her osteoarthritis. She does take Percocet at home for this pain. Percocet continues to help relieve her pain here in the hospital. She has worked with physical therapy throughout her hospitalization. She is improving slowly. At this time, Ms. Charles is stable for transfer to [facility] for further management. Ms. Charles will be discharged home today. Vitals signs are as follows: Temperature 98.0, heart rate 76, respirations 18, O2 saturation 98 percent, blood pressure 147/75. DISCHARGE PLAN: 1. Ms. Charles will be discharged to [facility]. 2. Activity as tolerated with physical therapy. 3. She should continue on a renal diet. 4. End-stage renal disease. She should continue her nightly peritoneal dialysis. 5. As far as her hypertension, she should continue her previously prescribed hypertensive meds of Carvedilol. 6. Lower extremity wound: She should continue with daily dressing changes, Bacitracin, then Vaseline gauze with 4 x 4's applied on top and loosely wrapped in cling. As far as her heel pressure wound, she should continue elevating her feet off of the bed to avoid further breakdown. It was recommended that Dr. Phillips that she also be seen by wound care when she is admitted to [facility]. A wound care consult needs to be set up for further management of her left lower leg wound. She should be seen within one week. 7. For her coronary artery disease, we will continue her beta samira and aspirin. 8. For her CVA, we will continue with secondary prevention. 9. For her depression, her supportive care and continue her Zoloft. 10. For her continued left hip pain, CT of the pelvis showed degenerative changes in the hips. 11. For her cardiomyopathy, again she should continue with her dialysis on a daily basis. 12. Code status: She is a full code. The patient should return to the emergency room if she develops any chest pain or shortness of breath or any other concerning symptoms. This is a summarization of her hospitalization. For further details, please see the entire medical record. I discussed this discharge with Dr. Duffy and he is in agreement with my plan. TIME SPENT: Time spent on this discharge was approximately 60 minutes, greater than half that time was spent with the patient discussing discharge plans and instructions. CONDITION ON DISCHARGE: Stable. ELVIA CORNELL NP [id number]/[facility] #: [id number] EL
[2017-09-25 13:54] VITALS: BP 139/70
== END 2017-09-25 13:05 | DRG 604 ==
LOC: ED 11:57 → MED 13:49
PROVIDERS: ADMIT Hospitalist; ATTEND Internal Medicine
PROC: 0JQP3ZZ Repair Left Lower Leg Subcutaneous Tissue and Fascia, Percutaneous Approach (ICD-10-PCS; 2017-09-16)
PROC: 3E1M39Z Irrigation of Peritoneal Cavity using Dialysate, Percutaneous Approach (ICD-10-PCS; principal; 2017-09-17)
DX: S81.812A Laceration without foreign body, left lower leg, initial encounter (principal); N18.6 End stage renal disease; I42.9 Cardiomyopathy, unspecified; Q61.3 Polycystic kidney, unspecified; 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 disease with heart failure and with stage 5 chronic kidney disease, or end stage renal disease; M84.454A Pathological fracture, pelvis, initial encounter for fracture; R64 Cachexia; S00.531A Contusion of lip, initial encounter; E78.00 Pure hypercholesterolemia, unspecified; I50.9 Heart failure, unspecified; K21.9 Gastro-esophageal reflux disease without esophagitis; K57.90 Diverticulosis of intestine, part unspecified, without perforation or abscess without bleeding; M19.90 Unspecified osteoarthritis, unspecified site; M06.9 Rheumatoid arthritis, unspecified; I25.10 Atherosclerotic heart disease of native coronary artery without angina pectoris; R41.82 Altered mental status, unspecified; I70.202 Unspecified atherosclerosis of native arteries of extremities, left leg; F41.9 Anxiety disorder, unspecified; D63.1 Anemia in chronic kidney disease; D50.8 Other iron deficiency anemias; G89.29 Other chronic pain; J44.9 Chronic obstructive pulmonary disease, unspecified; I72.9 Aneurysm of unspecified site; F32.9 Major depressive disorder, single episode, unspecified; S80.12XA Contusion of left lower leg, initial encounter; W01.0XXA Fall on same level from slipping, tripping and stumbling without subsequent striking against object, initial encounter; Z88.5 Allergy status to narcotic agent; Z88.8 Allergy status to other drugs, medicaments and biological substances; Z86.79 Personal history of other diseases of the circulatory system; Z79.82 Long term (current) use of aspirin; Z99.2 Dependence on renal dialysis; Z86.73 Personal history of transient ischemic attack (TIA), and cerebral infarction without residual deficits; Z87.891 Personal history of nicotine dependence; I25.2 Old myocardial infarction; Z82.49 Family history of ischemic heart disease and other diseases of the circulatory system; Z84.1 Family history of disorders of kidney and ureter; Z68.20 Body mass index [BMI] 20.0-20.9, adult; Y92.009 Unspecified place in unspecified non-institutional (private) residence as the place of occurrence of the external cause
CPT/HCPCS: 12002; 36415; 70450; 72192; 80048; 80053; 85025; 85610; 85730; 86140; 86850; 86900; 86901; 90471; 90715; 90945; 93005; 96374; 96375; 99284; 99285; A9270-GY; G0257; G0378; G8978-GP-CJ; G8978-GP-CL; G8978-GP-CM; G8979-GP-CH; G8979-GP-CI; G8979-GP-CK; G8979-GP-CL; G8980-GP-CH; J0690; J1644; J2270; J2405; Q9967

== ENCOUNTER 2017-11-24 11:22 | Inpatient (IN) | payer MEDICARE ==
[2017-11-24 13:50] LABS: ABS Basophils 0.1 10^3/ul (0-0.2); ABS Eosinophils 0.2 10^3/ul (0-0.6); ABS Lymphocytes 0.9 10^3/ul (1.0-4.8); ABS Monocytes 0.4 10^3/ul (0-0.8); ABS Neutrophils 7.3 10^3/ul (1.5-7.7); ABS Nucleated RBC 0 10^3/ul; Eosinophil % 2.4 % (0-6); Hematocrit 30 % (35-47); Hemoglobin 9.8 g/dl (12.0-16.0); Lymphocyte % 10.2 % (25-47); Mean Corpuscular HGB Conc 33 g/dl (31-36); Mean Corpuscular Hemoglobin 30 pg (27-31); Mean Corpuscular Volume 90 fL (80-97); Mean Platelet Volume 7.2 um3 (7.4-10.4); Nucleated Red Blood Cells % 0; Platelet Count 278 10^3/ul (150-450); Red Cell Distribution Width 17 % (10.5-15); White Blood Count 8.9 10^3/ul (3.5-10.8)
[2017-11-24 13:58] LABS: INR 0.98 (0.77-1.02)
--- NOTE | 2017-11-24 14:03 | RAD ---
CLINICAL HISTORY: ABD PAIN COMPARISON: June 30, 2017 TECHNIQUE: Multiple contiguous axial CT scans were obtained of the abdomen and pelvis, without intravenous contrast enhancement. Coronal and sagittal multiplanar reformations are submitted for review. Oral contrast was not administered. FINDINGS: The study is limited by the lack of intravenous contrast. This limits evaluation of the solid organs and vasculature. LUNG BASES: There are moderate bilateral pleural effusions. LIVER: The liver is enlarged measuring 19 cm long axis. There are stable hepatic cysts. BILE DUCTS: There is no intrahepatic or extrahepatic biliary dilatation. GALLBLADDER: The gallbladder is not visualized. Surgical clips are noted in the gallbladder fossa. PANCREAS: The pancreas is normal, without mass or ductal dilatation. SPLEEN: Normal in size and appearance. UPPER GI TRACT: Evaluation of the gastrointestinal tract is limited by incomplete gastric distention. The upper GI tract is unremarkable. SMALL BOWEL AND MESENTERY: The small bowel is normal in contour, course, and caliber. There is no obstruction or dilatation. COLON: There is extensive diverticulosis of the descending and sigmoid colon. ADRENALS: Normal bilaterally. KIDNEYS: The kidneys are essentially replaced by a double cysts of varying attenuation consistent with polycystic kidney disease. These are stable. BLADDER: The bladder is collapsed and is not well evaluated. PELVIC ORGANS: The uterus and adnexa are grossly normal for technique. AORTA: There is calcific atherosclerotic disease of the abdominal aorta and its branches, without aneurysmal dilatation IVC: Unremarkable LYMPH NODES: There is no lymphadenopathy by size criteria. ABDOMINAL WALL: There is diffuse subcutaneous edema. BONES AND SOFT TISSUES: Degenerative changes are noted. There is diffuse subcutaneous edema. OTHER: There is a small amount of ascites a peritoneal dialysis catheter is noted. There is free intracranial gas. IMPRESSION: 1. BILATERAL PLEURAL EFFUSIONS. 2. EXTENSIVE SUBCUTANEOUS EDEMA. 3. SMALL AMOUNT OF ASCITES WITH A PERITONEAL DIALYSIS CATHETER. THERE IS ALSO FRAYED. NO GAS IS PRESUMABLY RELATED TO BE. WE'LL DIALYSIS CATHETER. 4. POLYCYSTIC KIDNEY DISEASE. 5. ATHEROSCLEROSIS. 6. EXTENSIVE DIVERTICULOSIS.
--- NOTE | 2017-11-24 14:12 | RAD ---
HISTORY: COUGH,SOB COMPARISONS: June 22, 2015 VIEWS: 1: frontal portable view of the chest at 1:30 PM FINDINGS: LINES AND TUBES: None. CARDIOMEDIASTINAL SILHOUETTE: The cardiomediastinal silhouette is normal for portable technique. PLEURA: There is a small left pleural effusion. LUNG PARENCHYMA: There is a diffuse reticular pattern with indistinct pulmonary vessels. ABDOMEN: The upper abdomen is clear. There is no subphrenic gas. BONES AND SOFT TISSUES: There are chronic bilateral rib fractures. IMPRESSION: PULMONARY INTERSTITIAL EDEMA WITH A SMALL LEFT PLEURAL EFFUSION.
[2017-11-24] MEDS ORDERED: Acetaminophen TAB* 325 MG PO PRN ×2 (16:21→16:22)
[2017-11-24] MEDS ORDERED: Morphine VIAL* 4 MG/ML VIAL (1 ml vial) IV PRN (16:22)
[2017-11-24] MEDS ORDERED: Magnesium Sulfate 1 GM IV* 1 GM/100 ML BAG IV ONE (16:36)
[2017-11-24] MEDS ORDERED: Vancomycin per Pharmacy* NOTE FOLLOW UP SCH (17:00)
[2017-11-24] MEDS ORDERED: Vancomycin(*) 750 MG in NS 0.9% 250 ML* 250 ML IVPB SCH ×4 (17:00)
[2017-11-24 17:45] LABS: ABS Basophils 0.1 10^3/ul (0-0.2); ABS Eosinophils 0.3 10^3/ul (0-0.6); ABS Lymphocytes 1.1 10^3/ul (1.0-4.8); ABS Monocytes 0.5 10^3/ul (0-0.8); ABS Neutrophils 6.4 10^3/ul (1.5-7.7); ABS Nucleated RBC 0 10^3/ul; Eosinophil % 3.4 % (0-6); Hematocrit 29 % (35-47); Hemoglobin 9.3 g/dl (12.0-16.0); Lymphocyte % 13.3 % (25-47); Mean Corpuscular HGB Conc 32 g/dl (31-36); Mean Corpuscular Hemoglobin 29 pg (27-31); Mean Corpuscular Volume 90 fL (80-97); Mean Platelet Volume 7.3 um3 (7.4-10.4); Nucleated Red Blood Cells % 0; Platelet Count 280 10^3/ul (150-450); Red Blood Count 3.22 10^6/ul (4.00-5.40); Red Cell Distribution Width 17 % (10.5-15); White Blood Count 8.4 10^3/ul (3.5-10.8)
[2017-11-24] MEDS: HYDROcodone/ACETAMIN 5-325 MG* 1 TAB PO PRN (18:02)
[2017-11-24] MEDS: cefTRIAXone(*) 1 GM in NS 0.9% 50 ML* 50 ML IVPB SCH (18:03)
[2017-11-24 18:12] LABS: EGFR Non-African American 6.8 (>60)
--- NOTE | 2017-11-24 18:26 | HP ---
CC: Dr. Letty Duffy; Dr. Bianchi * HISTORY AND PHYSICAL: DATE OF ADMISSION: 11/24/17 PRIMARY CARE PROVIDER: Dr. Letty Duffy. CHIEF COMPLAINT: Shortness of breath, weight gain, and abdominal pain. HISTORY OF PRESENT ILLNESS: Beth Charles is a 57-year-old female with history of end-stage renal disease due to polycystic kidney disease, who is using peritoneal dialysis on a daily basis. The patient stated that she had been having problems with generalized abdominal pain and feeling unwell for the past 4 to 5 days. The patient stated that her bowels are well formed and regular and the last bowel movement was 24 hours ago. The patient also has noted that she has gained approximately 10 pounds in the past 1 month and she feels that her dialysis is not effective. She was admitted to the hospital in September 2017 after a fall, from which hospital stay the patient needed to be transferred to rehabilitation facility. She stayed at the rehabilitation facility for approximately 2 weeks, did well and was discharged home to live with her son. She ambulates with a roller walker and her wound on the left leg that was a large laceration is healing well. Nevertheless, she also has noted for the past month after her discharge from rehab facility, she had been gaining weight despite trying to use dialysis as directed. The patient is going to be admitted with a diagnosis of possibility of peritonitis. She also is in fluid overload. PAST MEDICAL HISTORY: 1. History of end-stage renal disease secondary to polycystic kidney disease, on peritoneal dialysis. 2. History of hypertension. 3. History of cardiomyopathy with EF of 35%. 4. History of coronary artery disease. 5. History of CVA. 6. History of inflammatory arthropathy, on Enbrel. 7. History of depression. 8. Status post peritoneal dialysis placement in the past. 9. History of leg wound for the past month and a half after trauma. MEDICATIONS AT HOME: Include: 1. Zoloft 50 mg daily. 2. Tekturna 300 mg daily. 3. Acetaminophen 650 mg on a p.r.n. basis. 4. Ativan 2 mg every 6 hours p.r.n. 5. Calcitriol 0.25 mcg daily. 6. Aspirin 81 mg daily. 7. Omeprazole 20 mg daily. 8. Enbrel 25 mg subcutaneously every 7 days. 9. Naproxen 500 mg b.i.d. 10. Hydrocodone/acetaminophen 5/325 mg 1 tablet every 6 hours p.r.n. 11. Coreg 25 mg b.i.d. ALLERGIES: Include ADHESIVE TAPE and CODEINE. FAMILY HISTORY: Father with history of polycystic kidney disease, who of VT. Mother with history of hypertension, who of Alzheimer's. SOCIAL HISTORY: The patient is independent with activities of daily living. She uses a walker for ambulation. She lives with her son. She never smoked. She denies any alcohol or drug use. Her son, Rojelio, is her healthcare proxy. REVIEW OF SYSTEMS: Please see history of present illness. In addition to above mentioned, the patient stated that her usual weight is 117 pounds and currently she is 127. Her leg wound which dressing she changes on a daily basis herself is doing well. She goes to wound care center on a weekly basis. The patient denies any fevers. She denies diarrhea, nausea, and vomiting. Her appetite was rather poor. She complains of bilateral lower quadrant abdominal pain that is constant and approximately 5/10 in intensity. She was noted to have an eschar covered abrasion next to her peritoneal dialysis catheter and she is unsure of how long it has been there. She had been short of breath for several days now. Her abdominal pain had been ongoing for 4 to 5 days. All the remaining 12 systems were reviewed with the patient and were otherwise negative. PHYSICAL EXAMINATION GENERAL: The patient is a pleasant 57-year-old female who appears older than stated age and chronically ill. The patient has grayish discoloration of her skin, which appears chronic. She is in no acute distress. She is alert, awake , and oriented x3. VITAL SIGNS: Blood pressure of 154/88, heart rate of 70 and regular, respiratory rate 14, oxygen saturation 100% on room air, temperature of 97.7. HEENT: Head: Atraumatic, normocephalic. Eyes: Pupils are equal, reactive to light and accommodation. Oropharynx clear. Mucosa moist. NECK: Supple. No JVD. No bruits bilaterally. RESPIRATORY: Decreased breath sounds in bilateral bases with faint crackles in bilateral mid lungs. CARDIOVASCULAR: Regular rate and rhythm with 2/6 systolic ejection murmur on auscultation of the right upper sternal border. ABDOMEN: Soft, tender in the bilateral lower quadrants with positive rebound. No guarding. Bowel sounds are present in all 4 quadrants. Peritoneal dialysis catheter is in place. Next to it on the left side of peritoneal dialysis catheter, the patient has what appears to be abrasion like lesion that is approximately 1 cm in diameter covered with eschar, now with some erythema surrounding it, appears chronic. EXTREMITIES: There is +2 pitting pedal edema right more than left. There is no clubbing and no cyanosis. NEUROLOGIC: Cranial nerves II through XII are grossly intact. Motor strength is 5/5 bilaterally. PSYCHIATRIC: Oriented x3 with no evidence of anxiety or depression. SKIN: For the eschar covered lesion next to the peritoneal dialysis catheter in the area surrounding the peritoneal dialysis catheter, there is no purulent discharge. The patient also has a large wound on the distal left lower extremity that is partially healed. The area is elongated in approximately 2 or 3 parts of approximately 10 cm each. The bottom of the wounds is covered with slough. The wounds are rather shallow and granulating well. There is no evidence of acute infection. DIAGNOSTIC STUDIES/LAB DATA: The patient's last echocardiogram obtained in May 2017 showed EF of 45% to 50% with mild aortic stenosis and aortic valve area calculated at 1.5 cm square. There was also borderline mitral valve stenosis. Today's lab work obtained in the ED showed white blood cell count of 8.9, hemoglobin of 9.8, hematocrit of 30, and platelets of 278,000. Please note that the patient's anemia is consistent with prior. Sodium was 136, potassium 3.8, chloride 96, carbon dioxide 31, BUN of 49, creatinine 6.15. Liver function tests were unremarkable. C-reactive protein of 147, lipase below 10, lactic acid 0.5. Magnesium was 1.7. The patient's CT of abdomen and pelvis obtained on 11/24/17 showed "bilateral pleural effusions. subcutaneous edema. Small amount of ascites within the peritoneal dialysis catheter. There is also free air. The gas is presumably related to the dialysis catheter. Polycystic kidney disease. Atherosclerosis. Extensive amount of diverticulosis." Portable chest x-ray, impression: "Pulmonary interstitial edema with small left pleural effusion." ASSESSMENT AND PLAN: 1. Abdominal pain in a patient with history of peritoneal dialysis. The patient also has markedly elevated C-reactive protein. At this point, the patient is also on Enbrel, which is an immunosuppressant. At this point, the patient is going to be placed empirically on vancomycin and ceftriaxone. I spoke with Dr. Bianchi who is going to arrange for the patient to have intraperitoneal antibiotic treatment. Intravenously, the patient is going to be placed on ceftriaxone and vancomycin. In regards to vancomycin dosage, the patient is going to be placed on 750 mg of vancomycin on a daily basis and we will need to check the patient's trough since we do not have a protocol in the pharmacy to treat peritoneal dialysis patients with vancomycin. For the time being, the patient is going to be placed on a liquid diet. Fluid cultures are going to be obtained in the emergency department. 2. Fluid overload. The patient gained over 10 pounds. She is fairly dyspneic on evaluation and has pleural effusions on chest x-ray. She is going to be placed on peritoneal dialysis tonight. 3. The patient's anemia is chronic likely due to end-stage renal disease with hemoglobin at baseline. 4. For the patient's history of inflammatory arthropathy, her Enbrel is going to be held for the time being when the patient is being evaluated for source of infection. 5. For DVT prophylaxis, the patient is going to be placed on heparin subcutaneously. 6. The patient's code status is full. Her surrogate is her son. TIME SPENT: Approximately 70 minutes were spent on admission of this patient, more than half of that time was spent [id number] with the patient during the interview and physical exam. [id number]/[facility] #: [id number] EL
--- NOTE | 2017-11-24 18:34 | ED ---
Narcisa Morales Jade, scribed for Rohith Hassan MD on 11/24/17 at 1309 . Abdominal Pain/Female - HPI Summary HPI Summary: Pt is a 57 y/o who presents to the ED c/o abdominal pain. She states the cramping pain began 3 days ago and became worse today, and it feels like she has an infection of her peritoneal dialysis catheter. The pain is rated a 7/10 in intensity, feels a bubbling sensation in her stomach, and is SOB. Pt denies any fever. Pt is currently on dialysis because her kidneys failed from polycystic kidney disease. - History of Current Complaint Chief Complaint: EDAbdPain Stated Complaint: ABD PAIN Time Seen by Provider: 11/24/17 12:56 Hx Obtained From: Patient Onset/Duration: Gradual Onset, Lasting Days - 3 Severity Currently: Moderate Pain Intensity: 7 Pain Scale Used: 0-10 Numeric Location: Suprapubic Character: Cramping Associated Signs and Symptoms: Positive: Other: - Shortness of breath Allergies/Adverse Reactions: Allergies Allergy/AdvReac Type Severity Reaction Status Date / Time Adhesive Tape Allergy Hives Verified 11/24/17 11:33 codeine Allergy GI Upset Verified 11/24/17 11:33 Home Medications: Home Medications HYDROcodone/ACETAMIN 5-325 MG* [[place] 5-325 TAB*] 1 tab PO Q6H PRN 11/24/17 [ History Confirmed 11/24/17] Naproxen [Naproxen 500 mg tab] 500 mg PO BID 11/24/17 [History Confirmed ] Omeprazole CAP* [Prilosec CAP* 20 MG] 20 mg PO DAILY 11/24/17 [History Confirmed 11/24/17] PMH/Surg Hx/FS Hx/Imm Hx Endocrine/Hematology History: Reports: Hx Anemia - gets epogen shot Denies: Hx Blood Disorders, Hx Blood Transfusions, Hx Bone Marrow Disease, Hx Diabetes, Hx Systemic Lupus Erythematosus, Hx Thyroid Disease, Hx Unexplained Bleeding Cardiovascular History: Reports: Hx Aneurysm, Hx Congestive Heart Failure, Hx Coronary Artery Disease, Hx Hypercholesterolemia, Hx Hypertension, Other Cardiovascular Problems/Disorders - CAD, [place] Denies: Hx Pacemaker/ICD, Hx Peripheral Vascular Disease Respiratory History: Reports: Hx Pleural Effusion Denies: Hx Chronic Obstructive Pulmonary Disease (COPD) - PT DENIES, Hx Pneumonia, Hx Pulmonary Edema, Hx Pulmonary Embolism, Hx Seasonal Allergies, Hx Sleep Apnea GI History: Reports: Hx Diverticulosis, Hx Gastroesophageal Reflux Disease, Hx Ulcer History: Reports: Hx Chronic Renal Failure, Hx Dialysis - PD, Hx Kidney Infection, Hx Renal Disease - ESRD, polycystic kidney disease, Other Problems /Disorders - polycystic kidney Denies: Hx Kidney Stones Musculoskeletal History: Reports: Hx Arthritis, Hx Rheumatoid Arthritis, Hx Back Problems, Other Musculoskeletal History - LEFT HIP FX Denies: Hx Osteoporosis Sensory History: Reports: Hx Contacts or Glasses - reading Denies: Hx Cataracts, Hx Eye Injury, Hx Eye Prosthesis, Hx Glaucoma, Hx Legally Blind, Hx Macular Degeneration, Hx Vision Problem, Hx Deafness, Hx Hearing Aid, Hx Hearing Problem Opthamlomology History: Reports: Hx Contacts or Glasses - reading Denies: Hx Cataracts, Hx Eye Injury, Hx Eye Prosthesis, Hx Glaucoma, Hx Legally Blind, Hx Macular Degeneration, Hx Vision Problem Neurological History: Reports: Hx CVA, Other Neuro Impairments/Disorders - brain aneurism x5 per pt Denies: Hx Dementia, Hx Developmental Delay, Hx Headaches, Hx Migraine, Hx Nerve Disease, Hx Seizures Psychiatric History: Reports: Hx Anxiety, Hx Depression Denies: Hx Panic Disorder, Hx Post Traumatic Stress Disorder, Other Psychiatric Issues/Disorders - Cancer History Hx Chemotherapy: No - Surgical History Surgery Procedure, Year, and Place: dialysis port x2 Hx Anesthesia Reactions: No - Immunization History Date of Tetanus Vaccine: Unknown Infectious Disease History: No Infectious Disease History: Denies: Hx Tuberculosis, Traveled Outside the [place] in Last 30 Days - Family History Known Family History: Negative: Cardiac Disease, Hypertension, Diabetes - Social History Alcohol Use: None Hx Substance Use: No Substance Use Type: Reports: None Hx Tobacco Use: Yes Smoking Status (MU): Former Smoker Type: Cigarettes Amount Used/How Often: not much, only while in college Have You Smoked in the Last Year: No Review of Systems Negative: Fever Positive: Shortness Of Breath Positive: Abdominal Pain - Lower - peritoneal dialysis catheter, Other - Bubbling sensation in stomach All Other Systems Reviewed And Are Negative: Yes Physical Exam - Summary Physical Exam Summary: General: well-appearing, no pain distress Skin: Metallic Head: normal Eyes: EOMI, HEVER ENT: normal Neck: supple, nontender Respiratory: CTA, breath sounds present Cardiovascular: RRR Abdomen: soft. Peritoneal dialysis catheter in right abdomen. No erythema. Tenderness over lower abdomen. Bowel: Hypoactive Musculoskeletal: normal, strength/ROM intact Neurological: sensory/motor intact, A&O x3 Psychological: affect/mood appropriate Triage Information Reviewed: Yes Vital Signs On Initial Exam: Initial Vitals Temp Pulse Resp BP Pulse Ox 97.7 F 76 36 136/105 97 11/24/17 11:26 11/24/17 11:26 11/24/17 11:26 11/24/17 11:26 11/24/17 11:26 Vital Signs Reviewed: Yes Diagnostics - Vital Signs Vital Signs Temp Pulse Resp BP Pulse Ox 11/24/17 11:26 97.7 F 76 36 136/105 97 - Laboratory Lab Results: Lab Results 11/24/17 11/24/17 11/24/17 Range/Units 13:23 13:23 13:24 WBC 8.9 (3.5-10.8) 10^3/ul RBC 3.30 L (4.00-5.40) 10^6/ul Hgb 9.8 L (12.0-16.0) g/dl Hct 30 L (35-47) % MCV 90 (80-97) fL MCH 30 (27-31) pg MCHC 33 (31-36) g/dl RDW 17 H (10.5-15) % Plt Count 278 (150-450) 10^3/ul MPV 7.2 L (7.4-10.4) um3 Neut % (Auto) 82.1 (38-83) % Lymph % (Auto) 10.2 L (25-47) % Pike % (Auto) 4.3 (0-7) % Eos % (Auto) 2.4 (0-6) % Baso % (Auto) 1.0 (0-2) % Absolute Neuts (auto) 7.3 (1.5-7.7) 10^3/ul Absolute Lymphs (auto) 0.9 L (1.0-4.8) 10^3/ul Absolute Monos (auto) 0.4 (0-0.8) 10^3/ul Absolute Eos (auto) 0.2 (0-0.6) 10^3/ul Absolute Basos (auto) 0.1 (0-0.2) 10^3/ul Absolute Nucleated RBC 0 10^3/ul Nucleated RBC % 0 INR (Anticoag Therapy) 0.98 (0.77-1.02) APTT 40.4 H (26.0-36.3) seconds Sodium (135-145) mmol/L Potassium (3.5-5.0) mmol/L Chloride (101-111) mmol/L Carbon Dioxide (22-32) mmol/L Anion Gap (2-11) mmol/L BUN (6-24) mg/dL Creatinine (0.51-0.95) mg/dL Est GFR ( Amer) (>60) Est GFR (Non-Af Amer) (>60) BUN/Creatinine Ratio (8-20) Glucose (70-100) mg/dL Lactic Acid 0.5 (0.5-2.0) mmol/L Calcium (8.6-10.3) mg/dL Phosphorus (2.5-5.0) mg/dL Magnesium (1.9-2.7) mg/dL Total Bilirubin (0.2-1.0) mg/dL AST (13-39) U/L ALT (7-52) U/L Alkaline Phosphatase (34-104) U/L C-Reactive Protein (< 5.00) mg/L Total Protein (6.4-8.9) g/dL Albumin (3.2-5.2) g/dL Globulin (2-4) g/dL Albumin/Globulin Ratio (1-3) Lipase (11.0-82.0) U/L // Range/Units 13:24 WBC (3.5-10.8) 10^3/ul RBC (4.00-5.40) 10^6/ul Hgb (12.0-16.0) g/dl Hct (35-47) % MCV (80-97) fL MCH (27-31) pg MCHC (31-36) g/dl RDW (10.5-15) % Plt Count (150-450) 10^3/ul MPV (7.4-10.4) um3 Neut % (Auto) (38-83) % Lymph % (Auto) (25-47) % Pike % (Auto) (0-7) % Eos % (Auto) (0-6) % Baso % (Auto) (0-2) % Absolute Neuts (auto) (1.5-7.7) 10^3/ul Absolute Lymphs (auto) (1.0-4.8) 10^3/ul Absolute Monos (auto) (0-0.8) 10^3/ul Absolute Eos (auto) (0-0.6) 10^3/ul Absolute Basos (auto) (0-0.2) 10^3/ul Absolute Nucleated RBC 10^3/ul Nucleated RBC % INR (Anticoag Therapy) (0.77-1.02) APTT (26.0-36.3) seconds Sodium 136 (135-145) mmol/L Potassium 3.8 (3.5-5.0) mmol/L Chloride 96 L (101-111) mmol/L Carbon Dioxide 31 (22-32) mmol/L Anion Gap 9 (2-11) mmol/L BUN 49 H (6-24) mg/dL Creatinine 6.15 H (0.51-0.95) mg/dL Est GFR ( Amer) 9.0 (>60) Est GFR (Non-Af Amer) 7.0 (>60) BUN/Creatinine Ratio 8.0 (8-20) Glucose 103 H (70-100) mg/dL Lactic Acid (0.5-2.0) mmol/L Calcium 8.8 (8.6-10.3) mg/dL Phosphorus 4.8 (2.5-5.0) mg/dL Magnesium 1.7 L (1.9-2.7) mg/dL Total Bilirubin 0.20 (0.2-1.0) mg/dL AST 12 L (13-39) U/L ALT 11 (7-52) U/L Alkaline Phosphatase 82 (34-104) U/L C-Reactive Protein 147.07 H (< 5.00) mg/L Total Protein 5.3 L (6.4-8.9) g/dL Albumin 2.1 L (3.2-5.2) g/dL Globulin 3.2 (2-4) g/dL Albumin/Globulin Ratio 0.7 L (1-3) Lipase < 10 L (11.0-82.0) U/L Result Diagrams: 11/24/17 17:18 11/24/17 17:30 Lab Statement: Any lab studies that have been ordered have been reviewed, and results considered in the medical decision making process. - Radiology CXR Xray Interpretation: Positive (See Comments) - PULMONARY INTERSTITIAL EDEMA WITH A SMALL LEFT PLEURAL EFFUSION. ED physician reviewed radiology report. Radiology Interpretation Completed By: Radiologist - CT 13:12 CT Interpretation: Positive (See Comments) - Abd/Pel CT: 1. BILATERAL PLEURAL EFFUSIONS. 2. EXTENSIVE SUBCUTANEOUS EDEMA. 3. SMALL AMOUNT OF ASCITES WITH A PERITONEAL DIALYSIS CATHETER. THERE IS ALSO FRAYED. NO GAS IS PRESUMABLY RELATED TO BE. WE'LL DIALYSIS CATHETER. 4. POLYCYSTIC KIDNEY DISEASE. 5. ATHEROSCLEROSIS. 6. EXTENSIVE DIVERTICULOSIS. ED physician reviewed radiology report. CT Interpretation Completed By: Radiologist Abdominal Pain Fem Course/Dx - Course Course Of Treatment: ADMIT HOSPITALIST - Diagnoses Provider Diagnoses: Abdominal pain, Peritoneal dialysis catheter in place Discharge - Sign-Out/Discharge Documenting (check all that apply): Discharge/Admit/Transfer - Admit Signing out patient TO: Miriam Vizcarra - Discharge Plan Condition: Stable Disposition: ADMITTED TO [facility] - Billing Disposition and Condition Condition: STABLE Disposition: Admitted to [facility] The documentation as recorded by the Narcisa woods Jade accurately reflects the service I personally performed and the decisions made by me, Rohith Hassan MD.
[2017-11-24] MEDS: Aliskiren TAB* 150 MG PO SCH (19:10)
[2017-11-24] MEDS: Vancomycin(*) 750 MG in NS 0.9% 250 ML* 250 ML IVPB SCH (19:10)
[2017-11-24] MEDS: Heparin VIAL(*) 5000 UNITS/ML VIAL (FIVE THOUSAND) SUBCUT SCH (21:43)
[2017-11-24] MEDS: LORazepam TAB(*) 1 MG PO PRN (21:44)
[2017-11-24] MEDS: Carvedilol TAB* 25 MG PO SCH (21:44)
[2017-11-25] MEDS: Heparin VIAL(*) 5000 UNITS/ML VIAL (FIVE THOUSAND) SUBCUT SCH ×2 (05:09→17:42)
[2017-11-25] MEDS: HYDROcodone/ACETAMIN 5-325 MG* 1 TAB PO PRN ×2 (05:09→11:59)
[2017-11-25 06:48] LABS: Vancomycin Trough 9.7 mcg/mL
[2017-11-25] MEDS: Aspirin EC TAB* 81 MG TAB.EC PO SCH (08:15)
[2017-11-25] MEDS: Carvedilol TAB* 25 MG PO SCH ×2 (08:15→20:27)
[2017-11-25] MEDS: Aliskiren TAB* 150 MG PO SCH (08:15)
[2017-11-25] MEDS: Omeprazole CAP* 20 MG PO SCH (08:15)
[2017-11-25] MEDS: Calcitriol CAP* 0.25 MCG PO SCH (08:15)
[2017-11-25] MEDS: Sertraline* 50 MG TAB PO SCH (08:15)
[2017-11-25] MEDS ORDERED: Heparin VIAL(*) 5000 UNITS/ML VIAL (FIVE THOUSAND) SUBCUT SCH (09:00)
--- NOTE | 2017-11-25 14:31 | CONS ---
CONSULTATION NOTE: DATE OF CONSULT: 11/25/17 REQUESTING PHYSICIAN: Dr. Smiht. CONSULTING SERVICE: Infectious Disease. REASON FOR CONSULTATION: Abdominal pain, peritoneal dialysis. IMPRESSION: 1. A few days of lower abdominal pain, some change in the consistency of the dialysate after it comes off the catheter. Overall, she has a PD catheter associated peritonitis, bacterial or fungal, most likely bacterial. 2. End-stage renal disease, on peritoneal dialysis. 3. Left lower extremity wound, chronic nonpressure related. RECOMMENDATION: Agree with intraperitoneal vancomycin and ceftriaxone 1 g a day while we are awaiting the fluid studies and cultures. She does not make urine but if the peritoneal fluid cultures are unrevealing, we could consider straight catheterization for urine culture. HISTORY OF PRESENT ILLNESS: This is a 57-year-old woman with end-stage renal disease, on peritoneal dialysis, who has had diffuse abdominal pain since . She has had no fevers or chills at home. Dialysis process has been a bit more painful; and, when the fluid comes out, it is kind of cloudy and stringy. A sample of fluid was taken overnight. She was started on vancomycin and ceftriaxone. No fever here overnight. She has no occult fever or chills at home. She has had a left lower extremity wound since a fall for about 2 or 3 months. It is slowly healing. There is no redness and minimal fluid drainage. PAST MEDICAL HISTORY: 1. Polycystic kidney disease. 2. End-stage renal disease, on peritoneal dialysis. 3. Hypertension. 4. Cardiomyopathy, ejection fraction 35%. 5. Coronary artery disease. 6. History of stroke. 7. Inflammatory arthropathy, was prescribed Enbrel but says she has never received it. 8. Depression. MEDICATIONS: 1. Tylenol. 2. Tekturna. 3. Aspirin. 4. Calcitriol. 5. Coreg. 6. Heparin subcutaneous injection. 7. Vicodin as needed. 8. Ativan as needed. 9. Morphine as needed. 10. Omeprazole. 11. Ceftriaxone 1 g a day. 12. Sertraline. 13. Vancomycin 750 mg nightly. ALLERGIES: ADHESIVE TAPE and CODEINE. FAMILY HISTORY: Father had polycystic kidney disease and of [place]. Mother had hypertension, of Alzheimer's. SOCIAL HISTORY: She is a nonsmoker. No alcohol or injection drugs. Her son is her healthcare proxy. REVIEW OF SYSTEMS: All negative to a 14-point review of systems except as noted above. PHYSICAL EXAM: Vital Signs: Temperature 36.4, heart rate 70, respiratory rate 16, blood pressure 118/65, oxygen saturation 96% on 2 L. In general, she is awake and not in distress. Neurologic: She is oriented x3, follows all commands, moves all her extremities. HEENT: There is no conjunctival hemorrhage. Oropharynx without lesions. Neck: Supple without mass. Heart is regular rate and rhythm without murmurs, rubs, or gallops. Lungs are clear to auscultation bilaterally. Abdomen: Soft, mildly distended. There is a midline peritoneal dialysis catheter without surrounding erythema or fluctuance. There is diffuse mild tenderness to palpation. Bowel sounds are present. Skin: There is no rash or splinter hemorrhages. Musculoskeletal: There is no spine tenderness to palpation. No joint synovitis. LABORATORY DATA: White blood cell count 8, hemoglobin 9, platelets 280,000, MCV 90. Creatinine 6, potassium 3.8, CRP 150. Please see impressions and recommendations outlined above. Thanks for asking me to see Ms. Charles in consultation. [id number]/[facility] #: [id number] EL
[2017-11-25] MEDS: Mupirocin 2% OINT* TUBE TOPICAL SCH (17:20)
[2017-11-25] MEDS: cefTRIAXone(*) 1 GM in NS 0.9% 50 ML* 50 ML IVPB SCH (17:41)
[2017-11-25] MEDS: Vancomycin(*) 750 MG in NS 0.9% 250 ML* 250 ML IVPB SCH (18:00)
[2017-11-25] MEDS: LORazepam TAB(*) 1 MG PO PRN (20:26)
--- NOTE | 2017-11-25 20:27 | PN ---
Subjective Date of Service: 11/25/17 Interval History: Pt seen and examined. Meds and labs reviewed. ROS: Denied PATTEN/dizziness, F/C, N/V, CP, SOB, increased cough, sputum production , abd pain, diarrhea, constipation, dysuria, myalgias, arthralgias, throat pain , and new skin lesions. The rest of the 14 point ROS are unremarkable. PHYSICAL EXAM: GEN APPEARANCE: Awake, not in acute distress, think HEENT: NC/AT, PERRLA, moist oral mucosa, (-) throat erythema NECK: Soft, supple, (-) cervical LAD, (-)JVD HEART: S1S2 WNL, RRR, No MRG CHEST: CTA, BL, GAE, No W/R/R ABD: Soft, ND/NT, NABS 4x Q EXT: No C/C/+1BLUE edema, more subcutaneous distribution SKIN: Warm to touch PSYCH: No active psychosis, hallucinations, depression, SI/HI Objective Active Medications: Acetaminophen (Tylenol Tab*) 650 mg PO Q4H PRN PRN Reason: FEVER/PAIN Hydrocodone Bitart/Acetaminophen ([place] 5-325 Tab*) 1 tab PO Q6H PRN PRN Reason: PAIN Last Admin: 11/25/17 11:59 Dose: 1 tab Alisk[place]ren (Tekturna Tab*) 300 mg PO DAILY [facility] Last Admin: 11/25/17 08:15 Dose: 300 mg Aspirin (Aspirin Ec Tab*) 81 mg PO DAILY [facility] Last Admin: 11/25/17 08:15 Dose: 81 mg Calcitriol (Rocaltrol Cap*) 0.25 mcg PO DAILY [facility] Last Admin: 11/25/17 08:15 Dose: 0.25 mcg Carvedilol (Coreg Tab*) 25 mg PO BID [facility] Last Admin: 11/25/17 08:15 Dose: 25 mg Heparin Sodium (Porcine) (Heparin Vial(*)) 5,000 units SUBCUT Q12H [facility] Last Admin: 11/25/17 17:42 Dose: 5,000 units Ceftriaxone Sodium 1 gm/ (Sodium Chloride) 50 mls @ 200 mls/hr IVPB Q24H [facility] Last Admin: 11/25/17 17:41 Dose: 200 mls/hr Vancomycin HCl 750 mg/ Sodium (Chloride) 250 mls @ 166.667 mls/hr IVPB 1830 [facility] Last Admin: 11/25/17 18:00 Dose: 166.667 mls/hr Lorazepam (Ativan Tab(*)) 2 mg PO Q6HR PRN PRN Reason: PAIN Last Admin: 11/24/17 21:44 Dose: 2 mg Morphine Sulfate (Morphine Vial*) 1 mg IV Q4H PRN PRN Reason: PAIN Last Admin: 11/24/17 21:43 Dose: 1 mg Mupirocin (Bactroban 2 % Oint*) 1 applic TOPICAL DAILY [facility] Last Admin: 11/25/17 17:20 Dose: Not Given Omeprazole (Prilosec Cap*) 20 mg PO DAILY [facility] Last Admin: 11/25/17 08:15 Dose: 20 mg Sertraline HCl (Zoloft*) 50 mg PO DAILY [facility] Last Admin: 11/25/17 08:15 Dose: 50 mg Vital Signs - 8 hr 11/25/17 11/25/17 11/25/17 14:13 15:41 19:21 Temperature 98.0 F 98.1 F Pulse Rate 70 94 Respiratory 18 16 22 Rate Blood Pressure 131/67 152/75 (mmHg) O2 Sat by Pulse 97 100 Oximetry Oxygen Devices in Use Now: Nasal Cannula Result Diagrams: 11/24/17 17:18 11/24/17 17:30 Additional Lab and Data: Lab Results 11/24/17 11/24/17 11/24/17 Range/Units 13:23 13:23 13:24 WBC 8.9 (3.5-10.8) 10^3/ul RBC 3.30 L (4.00-5.40) 10^6/ul Hgb 9.8 L (12.0-16.0) g/dl Hct 30 L (35-47) % MCV 90 (80-97) fL MCH 30 (27-31) pg MCHC 33 (31-36) g/dl RDW 17 H (10.5-15) % Plt Count 278 (150-450) 10^3/ul MPV 7.2 L (7.4-10.4) um3 Neut % (Auto) 82.1 (38-83) % Lymph % (Auto) 10.2 L (25-47) % [place] % (Auto) 4.3 (0-7) % Eos % (Auto) 2.4 (0-6) % Baso % (Auto) 1.0 (0-2) % Absolute Neuts (auto) 7.3 (1.5-7.7) 10^3/ul Absolute Lymphs (auto) 0.9 L (1.0-4.8) 10^3/ul Absolute Monos (auto) 0.4 (0-0.8) 10^3/ul Absolute Eos (auto) 0.2 (0-0.6) 10^3/ul Absolute Basos (auto) 0.1 (0-0.2) 10^3/ul Absolute Nucleated RBC 0 10^3/ul Nucleated RBC % 0 INR (Anticoag Therapy) 0.98 (0.77-1.02) APTT 40.4 H (26.0-36.3) seconds Sodium (135-145) mmol/L Potassium (3.5-5.0) mmol/L Chloride (101-111) mmol/L Carbon Dioxide (22-32) mmol/L Anion Gap (2-11) mmol/L BUN (6-24) mg/dL Creatinine (0.51-0.95) mg/dL Est GFR ( Amer) (>60) Est GFR (Non-Af Amer) (>60) BUN/Creatinine Ratio (8-20) Glucose (70-100) mg/dL Lactic Acid 0.5 (0.5-2.0) mmol/L Calcium (8.6-10.3) mg/dL Phosphorus (2.5-5.0) mg/dL Magnesium (1.9-2.7) mg/dL Total Bilirubin (0.2-1.0) mg/dL AST (13-39) U/L ALT (7-52) U/L Alkaline Phosphatase (34-104) U/L C-Reactive Protein (< 5.00) mg/L Total Protein (6.4-8.9) g/dL Albumin (3.2-5.2) g/dL Globulin (2-4) g/dL Albumin/Globulin Ratio (1-3) Lipase (11.0-82.0) U/L 11/24/17 Range/Units 13:24 WBC (3.5-10.8) 10^3/ul RBC (4.00-5.40) 10^6/ul Hgb (12.0-16.0) g/dl Hct (35-47) % MCV (80-97) fL MCH (27-31) pg MCHC (31-36) g/dl RDW (10.5-15) % Plt Count (150-450) 10^3/ul MPV (7.4-10.4) um3 Neut % (Auto) (38-83) % Lymph % (Auto) (25-47) % [place] % (Auto) (0-7) % Eos % (Auto) (0-6) % Baso % (Auto) (0-2) % Absolute Neuts (auto) (1.5-7.7) 10^3/ul Absolute Lymphs (auto) (1.0-4.8) 10^3/ul Absolute Monos (auto) (0-0.8) 10^3/ul Absolute Eos (auto) (0-0.6) 10^3/ul Absolute Basos (auto) (0-0.2) 10^3/ul Absolute Nucleated RBC 10^3/ul Nucleated RBC % INR (Anticoag Therapy) (0.77-1.02) APTT (26.0-36.3) seconds Sodium 136 (135-145) mmol/L Potassium 3.8 (3.5-5.0) mmol/L Chloride 96 L (101-111) mmol/L Carbon Dioxide 31 (22-32) mmol/L Anion Gap 9 (2-11) mmol/L BUN 49 H (6-24) mg/dL Creatinine 6.15 H (0.51-0.95) mg/dL Est GFR ( Amer) 9.0 (>60) Est GFR (Non-Af Amer) 7.0 (>60) BUN/Creatinine Ratio 8.0 (8-20) Glucose 103 H (70-100) mg/dL Lactic Acid (0.5-2.0) mmol/L Calcium 8.8 (8.6-10.3) mg/dL Phosphorus 4.8 (2.5-5.0) mg/dL Magnesium 1.7 L (1.9-2.7) mg/dL Total Bilirubin 0.20 (0.2-1.0) mg/dL AST 12 L (13-39) U/L ALT 11 (7-52) U/L Alkaline Phosphatase 82 (34-104) U/L C-Reactive Protein 147.07 H (< 5.00) mg/L Total Protein 5.3 L (6.4-8.9) g/dL Albumin 2.1 L (3.2-5.2) g/dL Globulin 3.2 (2-4) g/dL Albumin/Globulin Ratio 0.7 L (1-3) Lipase < 10 L (11.0-82.0) U/L Assess/Plan/Problems-Billing Assessment: - Patient Problems (1) Abdominal pain Current Visit: No Status: Acute Code(s): R10.9 - UNSPECIFIED ABDOMINAL PAIN SNOMED Code(s): 11819087 Comment: #Abd pain: -Discussed with Dr. Vizcarra who mentioned that on presentation, pt had rebound guarding and tenderness on direct palpation indicative of peritonitis -Continue Vanco and Rocephin intraperitoneally -Cultures ordered on admission was for some reason not randiscussed with Dr. Vizcarra and Dr. Benavides -Will await any further input from Dr. Bianchi (2) Fluid overload Current Visit: Yes Status: Acute Code(s): E87.70 - FLUID OVERLOAD, UNSPECIFIED SNOMED Code(s): 44067608 Comment: -Will likely need ultra-filtration? -Defer with Dr. Bianchi (3) Anemia Current Visit: No Status: Acute Code(s): D64.9 - ANEMIA, UNSPECIFIED SNOMED Code(s): 023826016 Comment: -Chronic and likely due to AOCD -Check Iron studies, B12 and folate (4) Inflammatory arthropathy Current Visit: No Status: Acute Code(s): M19.90 - UNSPECIFIED OSTEOARTHRITIS , UNSPECIFIED SITE SNOMED Code(s): 1589772 Comment: -Enbrel being withheld due to concerns of peritonitis above (5) DVT prophylaxis Current Visit: No Status: Acute Priority: High Onset Date: 09/08/14 Code (s): FUN3018 - SNOMED Code(s): 581360193 Comment: - Decreased Heparin SQ to q12 given CKD Status and Disposition: -As above -For PT eval for D/C planning
[2017-11-26] MEDS: HYDROcodone/ACETAMIN 5-325 MG* 1 TAB PO PRN ×4 (01:34→22:21)
[2017-11-26] MEDS: Heparin VIAL(*) 5000 UNITS/ML VIAL (FIVE THOUSAND) SUBCUT SCH ×2 (06:18→18:00)
[2017-11-26 06:34] LABS: Vancomycin Trough 16.2 mcg/mL
[2017-11-26] MEDS: Sertraline* 50 MG TAB PO SCH (09:39)
[2017-11-26] MEDS: Aspirin EC TAB* 81 MG TAB.EC PO SCH (09:39)
[2017-11-26] MEDS: Omeprazole CAP* 20 MG PO SCH (09:39)
[2017-11-26] MEDS: Carvedilol TAB* 25 MG PO SCH ×2 (09:39→22:21)
[2017-11-26] MEDS: Aliskiren TAB* 150 MG PO SCH (09:41)
[2017-11-26] MEDS: Calcitriol CAP* 0.25 MCG PO SCH (09:41)
[2017-11-26] MEDS: Mupirocin 2% OINT* TUBE TOPICAL SCH (09:42)
--- NOTE | 2017-11-26 10:28 | PN ---
Subjective Date of Service: 11/26/17 Interval History: Patient seen and examined. States she feels "weird" and "confused". Patient relays that last night and this morning she has gotten dizzy with ambulation, but not weak. Today she is feeling confused, states she had trouble working her phone and couldn't find the TV on the wall. States she knows something is off. Denies headache, no dizziness while seated or laying down, denies chest pain, no SOB, no further complaints. Objective Active Medications: Acetaminophen (Tylenol Tab*) 650 mg PO Q4H PRN PRN Reason: FEVER/PAIN Hydrocodone Bitart/Acetaminophen ([place] 5-325 Tab*) 1 tab PO Q6H PRN PRN Reason: PAIN Last Admin: 11/26/17 06:17 Dose: 1 tab Aliskiren (Tekturna Tab*) 300 mg PO DAILY [facility] Last Admin: 11/26/17 09:41 Dose: 300 mg Aspirin (Aspirin Ec Tab*) 81 mg PO DAILY [facility] Last Admin: 11/26/17 09:39 Dose: 81 mg Calcitriol (Rocaltrol Cap*) 0.25 mcg PO DAILY [facility] Last Admin: 11/26/17 09:41 Dose: 0.25 mcg Carvedilol (Coreg Tab*) 25 mg PO BID [facility] Last Admin: 11/26/17 09:39 Dose: 25 mg Heparin Sodium (Porcine) (Heparin Vial(*)) 5,000 units SUBCUT Q12H [facility] Last Admin: 11/26/17 06:18 Dose: 5,000 units Ceftriaxone Sodium 1 gm/ (Sodium Chloride) 50 mls @ 200 mls/hr IVPB Q24H [facility] Last Admin: 11/25/17 17:41 Dose: 200 mls/hr Vancomycin HCl 750 mg/ Sodium (Chloride) 250 mls @ 166.667 mls/hr IVPB 1830 [facility] Last Admin: 11/25/17 18:00 Dose: 166.667 mls/hr Lorazepam (Ativan Tab(*)) 2 mg PO Q6HR PRN PRN Reason: PAIN Last Admin: 11/25/17 20:26 Dose: 2 mg Morphine Sulfate (Morphine Vial*) 1 mg IV Q4H PRN PRN Reason: PAIN Last Admin: 11/24/17 21:43 Dose: 1 mg Mupirocin (Bactroban 2 % Oint*) 1 applic TOPICAL DAILY [facility] Last Admin: 11/26/17 09:42 Dose: Not Given Omeprazole (Prilosec Cap*) 20 mg PO DAILY [facility] Last Admin: 11/26/17 09:39 Dose: 20 mg Sertraline HCl (Zoloft*) 50 mg PO DAILY [facility] Last Admin: 11/26/17 09:39 Dose: 50 mg Vital Signs - 8 hr 11/26/17 11/26/17 11/26/17 03:05 04:17 06:17 Temperature 97.9 F Pulse Rate 72 Respiratory 16 18 20 Rate Blood Pressure 131/71 (mmHg) O2 Sat by Pulse 100 Oximetry 11/26/17 11/26/17 11/26/17 07:20 08:00 10:00 Temperature 97.3 F Pulse Rate 69 Respiratory 15 20 20 Rate Blood Pressure 135/67 (mmHg) O2 Sat by Pulse 98 Oximetry Oxygen Devices in Use Now: Nasal Cannula Appearance: Alert, mild distress Eyes: No Scleral Icterus, PERRLA Ears/Nose/Mouth/Throat: NL Teeth, Lips, Gums, Mucous Membranes Moist Neck: NL Appearance and Movements; NL JVP, Trachea Midline Respiratory: Symmetrical Chest Expansion and Respiratory Effort, - - diminished throughout, no rhonchi or rales noted Cardiovascular: NL Sounds; No Murmurs; No JVD, - - bilateral LE edema Abdominal: NL Sounds; No Tenderness; No Distention Skin: No Rash or Ulcers Neurological: - - alert to person and place, seems forgetful otherwise Nutrition: Taking PO's Result Diagrams: 11/24/17 17:18 11/24/17 17:30 Additional Lab and Data: Lab Results 11/24/17 11/24/17 11/24/17 Range/Units 13:23 13:23 13:24 WBC 8.9 (3.5-10.8) 10^3/ul RBC 3.30 L (4.00-5.40) 10^6/ul Hgb 9.8 L (12.0-16.0) g/dl Hct 30 L (35-47) % MCV 90 (80-97) fL MCH 30 (27-31) pg MCHC 33 (31-36) g/dl RDW 17 H (10.5-15) % Plt Count 278 (150-450) 10^3/ul MPV 7.2 L (7.4-10.4) um3 Neut % (Auto) 82.1 (38-83) % Lymph % (Auto) 10.2 L (25-47) % [place] % (Auto) 4.3 (0-7) % Eos % (Auto) 2.4 (0-6) % Baso % (Auto) 1.0 (0-2) % Absolute Neuts (auto) 7.3 (1.5-7.7) 10^3/ul Absolute Lymphs (auto) 0.9 L (1.0-4.8) 10^3/ul Absolute Monos (auto) 0.4 (0-0.8) 10^3/ul Absolute Eos (auto) 0.2 (0-0.6) 10^3/ul Absolute Basos (auto) 0.1 (0-0.2) 10^3/ul Absolute Nucleated RBC 0 10^3/ul Nucleated RBC % 0 INR (Anticoag Therapy) 0.98 (0.77-1.02) APTT 40.4 H (26.0-36.3) seconds Sodium (135-145) mmol/L Potassium (3.5-5.0) mmol/L Chloride (101-111) mmol/L Carbon Dioxide (22-32) mmol/L Anion Gap (2-11) mmol/L BUN (6-24) mg/dL Creatinine (0.51-0.95) mg/dL Est GFR ( Amer) (>60) Est GFR (Non-Af Amer) (>60) BUN/Creatinine Ratio (8-20) Glucose (70-100) mg/dL Lactic Acid 0.5 (0.5-2.0) mmol/L Calcium (8.6-10.3) mg/dL Phosphorus (2.5-5.0) mg/dL Magnesium (1.9-2.7) mg/dL Total Bilirubin (0.2-1.0) mg/dL AST (13-39) U/L ALT (7-52) U/L Alkaline Phosphatase (34-104) U/L C-Reactive Protein (< 5.00) mg/L Total Protein (6.4-8.9) g/dL Albumin (3.2-5.2) g/dL Globulin (2-4) g/dL Albumin/Globulin Ratio (1-3) Lipase (11.0-82.0) U/L // Range/Units 13:24 WBC (3.5-10.8) 10^3/ul RBC (4.00-5.40) 10^6/ul Hgb (12.0-16.0) g/dl Hct (35-47) % MCV (80-97) fL MCH (27-31) pg MCHC (31-36) g/dl RDW (10.5-15) % Plt Count (150-450) 10^3/ul MPV (7.4-10.4) um3 Neut % (Auto) (38-83) % Lymph % (Auto) (25-47) % [place] % (Auto) (0-7) % Eos % (Auto) (0-6) % Baso % (Auto) (0-2) % Absolute Neuts (auto) (1.5-7.7) 10^3/ul Absolute Lymphs (auto) (1.0-4.8) 10^3/ul Absolute Monos (auto) (0-0.8) 10^3/ul Absolute Eos (auto) (0-0.6) 10^3/ul Absolute Basos (auto) (0-0.2) 10^3/ul Absolute Nucleated RBC 10^3/ul Nucleated RBC % INR (Anticoag Therapy) (0.77-1.02) APTT (26.0-36.3) seconds Sodium 136 (135-145) mmol/L Potassium 3.8 (3.5-5.0) mmol/L Chloride 96 L (101-111) mmol/L Carbon Dioxide 31 (22-32) mmol/L Anion Gap 9 (2-11) mmol/L BUN 49 H (6-24) mg/dL Creatinine 6.15 H (0.51-0.95) mg/dL Est GFR ( Amer) 9.0 (>60) Est GFR (Non-Af Amer) 7.0 (>60) BUN/Creatinine Ratio 8.0 (8-20) Glucose 103 H (70-100) mg/dL Lactic Acid (0.5-2.0) mmol/L Calcium 8.8 (8.6-10.3) mg/dL Phosphorus 4.8 (2.5-5.0) mg/dL Magnesium 1.7 L (1.9-2.7) mg/dL Total Bilirubin 0.20 (0.2-1.0) mg/dL AST 12 L (13-39) U/L ALT 11 (7-52) U/L Alkaline Phosphatase 82 (34-104) U/L C-Reactive Protein 147.07 H (< 5.00) mg/L Total Protein 5.3 L (6.4-8.9) g/dL Albumin 2.1 L (3.2-5.2) g/dL Globulin 3.2 (2-4) g/dL Albumin/Globulin Ratio 0.7 L (1-3) Lipase < 10 L (11.0-82.0) U/L Diagnostic Imaging: Patient Name: EDWARDO GUILLEN Medical Record#: [id number] Ordering Physician: Rohith Hassan MD Acct.#: [id number] : 1960 Age: 57 Sex: F Location: EMERGENCY DEPARTMENT Exam Date: 11/24/17 1312 ADM Status: REG ER Order Information: CT ABD/PEL W/O Accession Number: [id number] CPT: 14072 CLINICAL HISTORY: ABD PAIN COMPARISON: June 30, 2017 TECHNIQUE: Multiple contiguous axial CT scans were obtained of the abdomen and pelvis, without intravenous contrast enhancement. Coronal and sagittal multiplanar reformations are submitted for review. Oral contrast was not administered. FINDINGS: The study is limited by the lack of intravenous contrast. This limits evaluation of the solid organs and vasculature. LUNG BASES: There are moderate bilateral pleural effusions. LIVER: The liver is enlarged measuring 19 cm long axis. There are stable hepatic cysts. BILE DUCTS: There is no intrahepatic or extrahepatic biliary dilatation. GALLBLADDER: The gallbladder is not visualized. Surgical clips are noted in the gallbladder fossa. PANCREAS: The pancreas is normal, without mass or ductal dilatation. SPLEEN: Normal in size and appearance. UPPER GI TRACT: Evaluation of the gastrointestinal tract is limited by incomplete gastric distention. The upper GI tract is unremarkable. SMALL BOWEL AND MESENTERY: The small bowel is normal in contour, course, and caliber. There is no obstruction or dilatation. COLON: There is extensive diverticulosis of the descending and sigmoid colon. ADRENALS: Normal bilaterally. KIDNEYS: The kidneys are essentially replaced by a double cysts of varying attenuation consistent with polycystic kidney disease. These are stable. BLADDER: The bladder is collapsed and is not well evaluated. PELVIC ORGANS: The uterus and adnexa are grossly normal for technique. AORTA: There is calcific atherosclerotic disease of the abdominal aorta and its branches, without aneurysmal dilatation IVC: Unremarkable LYMPH NODES: There is no lymphadenopathy by size criteria. ABDOMINAL WALL: There is diffuse subcutaneous edema. BONES AND SOFT TISSUES: Degenerative changes are noted. There is diffuse subcutaneous edema. OTHER: There is a small amount of ascites a peritoneal dialysis catheter is noted. There is free intracranial gas. IMPRESSION: 1. BILATERAL PLEURAL EFFUSIONS. 2. EXTENSIVE SUBCUTANEOUS EDEMA. 3. SMALL AMOUNT OF ASCITES WITH A PERITONEAL DIALYSIS CATHETER. THERE IS ALSO FRAYED. NO GAS IS PRESUMABLY RELATED TO BE. WE'LL DIALYSIS CATHETER. 4. POLYCYSTIC KIDNEY DISEASE. 5. ATHEROSCLEROSIS. 6. EXTENSIVE DIVERTICULOSIS. 1 of 2 Assess/Plan/Problems-Billing Assessment: This is a 57 year old female, well known to our service, history of ESRD on PD, COPD/oxygen dependent, admitted for abdominal pain, r/o peritonitis, now with acute confusion. - Patient Problems (1) Peritonitis Code(s): K65.9 - PERITONITIS, UNSPECIFIED SNOMED Code(s): 88700433 Comment: - Persistent abdominal pain - CT as above - Started on vanco and rocephin intraperiotoneal instillation - ID and Nephro following - Fluid culture was not obtained before vanco started, will not likely yield any results - Supportive care (2) Fluid overload Code(s): E87.70 - FLUID OVERLOAD, UNSPECIFIED SNOMED Code(s): 09057531 Comment: - Plan per nephrology, appreciate recs from Dr. Bianchi (3) Chronic pain Code(s): G89.29 - OTHER CHRONIC PAIN SNOMED Code(s): 67638890 Comment: - Continue analgesics as needed, acute on chronic? (4) End stage renal failure on dialysis Code(s): N18.6 - END STAGE RENAL DISEASE; Z99.2 - DEPENDENCE ON RENAL DIALYSIS SNOMED Code(s): 117542128 Comment: - Nightly PD as per nephrology (5) Inflammatory arthropathy Code(s): M19.90 - UNSPECIFIED OSTEOARTHRITIS, UNSPECIFIED SITE SNOMED Code(s) : 2404545 Comment: - Hold Enbrel while being worked up/treated for peritonitis (6) COPD (chronic obstructive pulmonary disease) Code(s): J44.9 - CHRONIC OBSTRUCTIVE PULMONARY DISEASE, UNSPECIFIED SNOMED Code(s): 63810872 Comment: - Continue O2 - It is likely that fluid overload and pleural effusions contributing Status and Disposition: Remain inpatient, dispo planning home with VNS.
--- NOTE | 2017-11-26 11:28 | RAD ---
Indication: Confusion. CT of the brain was performed without IV contrast. Motion artifact limits examination. Ventricular structures are midline. No midline shift is noted. Periventricular lucency consistent with chronic ischemic White matter change is noted. No obvious hemorrhage is noted although subtle areas of hemorrhage cannot BE excluded. Lacunar infarct in the left basal ganglia is noted. Hypodensity in the right occipital lobe in the right PHYSICIAN CHIEF OF PATHOLOGY territory is present and the possibility of a right posterior cerebral artery infarct noted involving is not excluded. IMPRESSION: NO OBVIOUS HEMORRHAGE IS NOTED. HYPODENSITY IN THE RIGHT OCCIPITAL AREA FOR WHICH AN EVOLVING INFARCT CANNOT BE EXCLUDED. CLINICAL CORRELATION IS SUGGESTED.
[2017-11-26] MEDS: LORazepam TAB(*) 1 MG PO PRN ×2 (12:49→20:06)
[2017-11-26] MEDS: cefTRIAXone(*) 1 GM in NS 0.9% 50 ML* 50 ML IVPB SCH (16:59)
[2017-11-26] MEDS: Vancomycin(*) 750 MG in NS 0.9% 250 ML* 250 ML IVPB SCH (18:00)
--- NOTE | 2017-11-27 05:59 | CONS ---
NEUROLOGICAL CONSULTATION REPORT: DATE OF CONSULT: 11/26/17 REQUESTING PROVIDER: Annette Mooney NP REASON FOR CONSULT: Probable right occipital infarction. HISTORY OF PRESENT ILLNESS: Beth Charles is a 57-year-old woman with history of end-stage renal disease, on peritoneal dialysis, secondary to polycystic kidney disease, as well as history of strokes in the bilateral hemispheres in 2016, who came into the hospital on 11/24/17 because of abdominal pain, shortness of breath, and weight gain. She was admitted to the medicine service with concern for peritonitis. This morning, when Annette Mooney went to round on the patient, she reported she was feeling confused in that she was having difficulty using her flip phone and difficulty figuring out how to turn on the television. She had not alerted anyone else to these new problems. She further went on to tell Annette that her previous stroke had presented with confusion and so a CT scan of the brain was ordered, which demonstrated hypodensity in the area of the right TIE SAWYER. On my evaluation this evening, Ms. Charles denied having any specific problems with her vision. She just thought that she was confused about how to use things that she normally should knows how to use. She did not think that she had any weakness or numbness that was new in her extremities. She did recognize that she was in the hospital for abdominal pain. Since her admission , she has been treated for the possibility of peritonitis as well. PAST MEDICAL HISTORY: 1. End-stage renal disease secondary to PCKD, on peritoneal dialysis. 2. Hypertension. 3. Cardiomyopathy. 4. Coronary artery disease. 5. History of bihemispheric strokes. 6. Inflammatory arthropathy, on Enbrel. 7. Depression. 8. Intracranial aneurysms MEDICATIONS: In-hospital medications: 1. Tylenol 650 q.4 p.r.n. 2. [place] 5/325 q.6 p.r.n. 3. T[place]turn[place] 300 mg daily. 4. Aspirin 81 mg daily. 5. Calcitriol 0.25 mcg daily. 6. Carvedilol 25 mg twice daily. 7. Ceftriaxone 1 g q.24 hours. 8. Heparin 5000 units q.12. 9. Lorazepam 2 mg p.o. q.6 p.r.n. pain. 10. Morphine 1 mg IV q.4 p.r.n. pain. 11. Bactroban ointment. 12. Omeprazole 20 mg daily. 13. Zoloft 50 mg daily. 14. Vancomycin 750 mg last administered on 11/26/17 at 1800. ALLERGIES: ADHESIVE TAPE and CODEINE. FAMILY HISTORY: Her father had polycystic kidney disease and of a heart attack. Her mother has history of hypertension and from Alzheimer's disease. SOCIAL HISTORY: She is a nonsmoker and does not drink alcohol or use illicit drugs. She lives with her son and uses a walker. REVIEW OF SYSTEMS: She admits to being short of breath. She has a healing laceration on her right lower leg. She has had abdominal pain as mentioned in HPI. PHYSICAL EXAM: Vital Signs: Temperature 97.6, blood pressure 164/81, heart rate 73, oxygen saturation 100% on room air. Her recent blood pressures have all generally had MAPs greater than 80 except for this morning at 8 a.m. and 11 a.m. On general examination, she appears older than her stated age and chronically ill. She has grayish purple discoloration of her extremities. She appeared to have increased work of breathing. Her heart was in a regular rate and rhythm with a soft systolic ejection murmur. No carotid bruits are auscultated. On neurologic exam, she is alert and oriented to situation. Her pupils are equal, round, and reactive from 3 to 2 mm. She has some difficulty cooperating with versions to the left though she was able to cross midline. She has dense left homonymous hemianopsia. Her speech is intact without dysarthria or aphasia. Facial musculature and sensation is full and symmetric. Hearing is intact to voice. Palate elevates symmetrically and the tongue is midline. On motor examination, she has antigravity strength in her upper and lower extremities. There is no clear focal weakness. Sensation was intact to light touch in the upper and lower extremities. The remainder of the neurologic exam was deferred as the patient was requesting to get out of bed and use bathroom. DIAGNOSTIC STUDIES/LAB DATA: Her CBC on 11/24/17 showed a normal white count, hematocrit of 29, platelet count of 280. Chemistry panel on 11/24/17 showed a creatinine of 6.32, BUN of 48, normal sodium and potassium. Her CRP was 147.07. Protein and albumin were low. Coagulation studies on 06/17/18 showed a normal INR and PTT of 40.4. Her noncontrast brain CT was personally reviewed and there was significant motion artifact, which degraded the images, but there did appear to be a new hypodensity in the right occipital region. In addition, there is evidence of old infarcts in the bilateral white matter of the frontal lobes. IMPRESSION AND PLAN: Ms. Beth Charles is a 57-year-old woman with end- stage renal disease secondary to polycystic kidney disease as well as history of previous stroke, who is admitted with concern for peritonitis and now unfortunately seems to have suffered a right posterior cerebral artery stroke. Her exam is notable for a left homonymous hemianopsia. When I reviewed her CT scan earlier with Annette Mooney, I recommended transfer to [address] [place] [id number] for telemetry monitoring. This evening when I saw Ms. Charles, I ordered head and neck MRA as well as brain MRI to better define the area of infarction since the CT was degraded by motion and to evaluate for any other involved territories, which may be smaller and not well seen on the CAT scan. I also should note that she has known intracranial aneurysms secondary to her polycystic kidney disease and therefore if she were found to have a definite embolic source for her strokes, we will have to carefully weigh the risks and benefits of anticoagulation in her especially given her overall health status at this point. We will update her transthoracic echocardiogram with bubble study. I will also get a fasting lipid profile and hemoglobin A1c on her in the morning. She should continue aspirin at this time, but we may elect to change this to clopidogrel after her workup is completed and/or consider adding it for a short period of time to the aspirin that she is already on pending her testing Thank you for this consultation, we will continue to follow the patient along with you. [id number]/[facility] #: [id number] EL
[2017-11-27] MEDS: Heparin VIAL(*) 5000 UNITS/ML VIAL (FIVE THOUSAND) SUBCUT SCH ×2 (06:07→18:45)
[2017-11-27] MEDS: LORazepam TAB(*) 1 MG PO PRN (06:11)
[2017-11-27] MEDS: HYDROcodone/ACETAMIN 5-325 MG* 1 TAB PO PRN ×3 (06:34→23:54)
[2017-11-27 07:49] LABS: Vancomycin Trough 21.6 mcg/mL
[2017-11-27] MEDS: Omeprazole CAP* 20 MG PO SCH (08:42)
[2017-11-27] MEDS: Aspirin EC TAB* 81 MG TAB.EC PO SCH (08:42)
[2017-11-27] MEDS: Methadone TAB* 5 MG PO PRN (08:42)
[2017-11-27] MEDS: Sertraline* 50 MG TAB PO SCH (08:42)
[2017-11-27] MEDS: Mupirocin 2% OINT* TUBE TOPICAL SCH (08:43)
[2017-11-27] MEDS: Carvedilol TAB* 25 MG PO SCH ×2 (08:43→21:16)
[2017-11-27] MEDS: Calcitriol CAP* 0.25 MCG PO SCH (08:47)
[2017-11-27] MEDS: Aliskiren TAB* 150 MG PO SCH (08:47)
--- NOTE | 2017-11-27 08:53 | RAD ---
Indication: Posterior cerebral artery territory stroke. Evaluate vertebral arteries. End-stage renal disease. Comparison: MRI brain of the same date. Technique: [employer] 1.5 Natacha [id number] with GEM suite. MR angiography 3-D [id number] data was obtained with rotational display of the [place] and posterior fossa arteries. Report: Unremarkable intracranial internal carotid arteries as well as the M1 and M2 segments of the middle cerebral arteries. 0.7 cm maximum dimension isidro aneurysm at the anterior communicating artery. Patent A1 and A2 segments of the anterior cerebral arteries. Diminutive RIGHT vertebral artery with both vertebral arteries contributing to the basilar artery. Unremarkable cerebellar artery origins. The RIGHT posterior cerebral artery is occluded approximately 1.8 cm from the basilar artery origin. The LEFT posterior cerebral artery is unremarkable. The posterior communicating arteries are hypoplastic. IMPRESSION: 1. Solitary 0.7 cm maximum dimension intracranial aneurysm at the level of the anterior indicating artery centered toward the RIGHT side. 2. The RIGHT posterior cerebral artery is occluded approximately 1.8 cm from the basilar artery origin. 3. Normal variant diminutive RIGHT vertebral artery with both vertebral arteries contributing to the basilar artery.
--- NOTE | 2017-11-27 09:08 | RAD ---
Indication: RIGHT posterior cerebral artery distribution stroke. Comparison: MRI brain of the same date March 13, 2016 CT angiogram head and neck. Technique: [employer] 1.5 Natacha [id number] with GEM suite. MR angiography of the neck without contrast. Rotational display of the major arteries of the neck. Stenosis estimations based on denominator of distal internal carotid diameter. Report: Motion artifact degrades image quality. No significant stenosis evident at the internal carotid arteries. Antegrade flow documented at the bilateral vertebral arteries. The distal RIGHT vertebral artery is diminutive but patent and contributes to the basilar artery. Unremarkable dominant LEFT vertebral artery. IMPRESSION: 1. Limited exam due to motion artifact in absence of IV contrast without compelling evidence for significant carotid stenosis. 2. The distal RIGHT vertebral artery is diminutive but patent and contributes to the basilar artery.
--- NOTE | 2017-11-27 09:36 | RAD ---
Indication: Suspect posterior cerebral artery distribution stroke. Acute confusion. Comparison: MRI angiogram of the head and neck of the same date. CT of the same date. September 16, 2015 MRI. Technique: [employer] [place] 1.5 Natacha [id number] with GEM suite. MRI brain without contrast. Report: Large region of restricted diffusion involving medial aspect of the RIGHT occipital lobe and medial posterior aspect of the RIGHT temporal with corresponding loss of signal on ADC map and corresponding with the region hypodensity on CT. Associated mild mass effect with effacement of the overlying cerebral sulci. Negative for significant mass effect on the RIGHT lateral ventricle. Negative for midline shift. The basal cisterns remain patent. Additional minimal linear region of restricted diffusion corresponding decreased signal on ADC map extending to the inferior RIGHT parietal lobule. Normal variant dilated perivascular spaces at the basal ganglia periventricular white matter with dominant 1.0 cm diameter perivascular space at the LEFT basal ganglia. The white matter signal changes in the periventricular regions may represent chronic small vessel ischemic disease. Grossly preserved major intracranial flow-voids. Anterior communicating artery and distal RIGHT M1 segment middle cerebral artery aneurysms noted as described in the dedicated MRA report. Unremarkable orbital contents. No suspicious abnormality of the calvarium or skull base. Grossly clear paranasal sinuses. RIGHT greater than LEFT mastoid effusions are chronic. IMPRESSION: 1. Acute or subacute large RIGHT posterior cerebral artery distribution ischemic infarct. Only mild mass effect. 2. Anterior communicating artery and distal RIGHT M1 segment middle cerebral artery aneurysms noted as described in the dedicated MRA report. 3. Normal variant dilated perivascular spaces at the basal ganglia periventricular white matter with dominant 1.0 cm diameter perivascular space at the LEFT basal ganglia. The white matter signal changes in the periventricular regions may represent chronic small vessel ischemic disease. This finding is unchanged compared with the September 16, 2015 exam.
[2017-11-27] MEDS ORDERED: Magnesium Sulfate 1 GM IV* 1 GM/100 ML BAG IV ONE (11:25)
[2017-11-27] MEDS ORDERED: NS 0.9% 500 ML* 500 ML IV ONE (11:53)
[2017-11-27] MEDS ORDERED: PROCHLORPERAZINE INJ 5 MG/ML 2 ML VIAL IV PRN (11:55)
[2017-11-27 11:56] LABS: EGFR Non-African American 7.2 (>60)
[2017-11-27] MEDS ORDERED: Potassium Chloride LIQUID* 20 MEQ PACKET PO ONE (12:20)
[2017-11-27 12:30] LABS: ABS Basophils 0.1 10^3/ul (0-0.2); ABS Eosinophils 0.4 10^3/ul (0-0.6); ABS Monocytes 0.5 10^3/ul (0-0.8); ABS Neutrophils 6.6 10^3/ul (1.5-7.7); ABS Nucleated RBC 0 10^3/ul; Eosinophil % 4.6 % (0-6); Hematocrit 32 % (35-47); Hemoglobin 10.3 g/dl (12.0-16.0); Lymphocyte % 11.9 % (25-47); Mean Corpuscular HGB Conc 32 g/dl (31-36); Mean Corpuscular Hemoglobin 29 pg (27-31); Mean Corpuscular Volume 90 fL (80-97); Mean Platelet Volume 7.6 um3 (7.4-10.4); Nucleated Red Blood Cells % 0; Platelet Count 353 10^3/ul (150-450); Red Blood Count 3.55 10^6/ul (4.00-5.40); Red Cell Distribution Width 16 % (10.5-15); White Blood Count 8.5 10^3/ul (3.5-10.8)
--- NOTE | 2017-11-27 14:50 | ECHO ---
Patient: EDWARDO GUILLEN [facility] Rec#: [id number] : 1960 Date: 11/27/2017 Age: 57y Height: 167.64 cm / 66.0 in Weight: 55.34 kg / 122.0 lbs Sex: F BSA: 1.62 Room#: [facility] Admit Date#: 11/25/2017 Type: Inpatient Referring: Karen Lugo Reading: Kate Verduzco MD Senior Mechanical Estimator: Lisa Orozco RDCS CC: Letty Duffy Transthoracic Echocardiogram Indication: CVA BP: 163/77 HR: 83 Rhythm: NSR with PVCs Findings History: ESRD on peritoneal dialysis, CVA, HTN, cardiomyopathy, and CAD. Technical Comments: The study quality is fair. Completed at 1300. Left Ventricle: The left ventricular chamber size is decreased. Mild to moderate concentric left ventricular hypertrophy is observed. Global left ventricular wall motion and contractility are within normal limits. Left ventricular systolic function is at the lower limits of normal. The estimated ejection fraction is 50-55%. Abnormal left ventricular diastolic function is observed. Abnormal left ventricular diastolic filling is observed, consistent with impaired relaxation. Left Atrium: The left atrium is moderately dilated. Right Ventricle: The right ventricle wall thickness is mildly increased. The right ventricular cavity size is normal. The right ventricular global systolic function is mildly reduced. Right Atrium: The right atrium is mildly dilated. Interatrial septum appears intact without evidence of shunting. The bubble study is negative. A patent foramen ovale is not demonstrated with color Doppler and agitated contrast. Aortic Valve: The aortic valve is trileaflet. The aortic valve leaflets are mildly thickened. There is a trace of aortic regurgitation. There is no evidence of aortic stenosis. The mean gradient of the aortic valve is 4.34 mmHg. The peak instantaneous gradient of the aortic valve is 12.7 mmHg. The aortic valve area, by peak velocities, is calculated at 1.7 cm2. The aortic valve area, by VTI's, is calculated at 1.5 cm2. Mitral Valve: There is mitral annular calcification. The mitral valve leaflets are moderately thickened. There is mild mitral regurgitation. The mean gradient across the mitral valve is 4.54 mmHg. The peak gradient across the mitral valve is 10.88 mmHg. The pressure half time of the mitral valve is 90 msec. The mitral valve area, by pressure half time, is calculated at 2.4 cm2. Tricuspid Valve: The tricuspid valve leaflets are mildly thickened. There is trace to mild tricuspid regurgitation. The right ventricular systolic pressure is estimated at 30 mmHg. There is evidence that pulmonary hypertension may be underestimated. There is no tricuspid stenosis. Pulmonic Valve: The pulmonic valve appears normal. There is a trace pulmonic regurgitation. There is no pulmonic stenosis. Pericardium: There is no significant pericardial effusion. Aorta: There is no dilatation of the ascending aorta. There is no dilatation of the aortic arch. The aortic root is normal in size. Pulmonary Artery: The main pulmonary artery appears normal. Venous: The inferior vena cava appears normal in size. There is a greater than 50% respiratory change in the inferior vena cava dimension. Contrast: Normal saline was used as contrast for the bubble study. Images 17 and 18. Intravenous contrast was used to help determine presence of intracardiac shunting. Conclusions Mild to moderate concentric left ventricular hypertrophy is observed. The left ventricular chamber size is decreased. Global left ventricular wall motion and contractility are within normal limits. The estimated ejection fraction is 50-55%. Abnormal left ventricular diastolic function is observed. The right ventricle wall thickness is mildly increased. The right ventricular global systolic function is mildly reduced. Interatrial septum appears intact without evidence of shunting. The aortic valve leaflets are mildly thickened with good valve function. There is mitral annular calcification and sclerosis of the leaflets. There is mild mitral regurgitation. The mitral valve area, by pressure half time, is calculated at 2.4 cm2. There is trace to mild tricuspid regurgitation. The right ventricular systolic pressure is estimated at 30 mmHg. There is evidence that pulmonary hypertension may be underestimated. Compared with prior echo of 05/21/17, LVEF improved from 45-50%, previously mild seen, not noted now, mean gradient decreased from 9 to 4 mmHg. MAC and borderline MS noted previously, P 1/2 stable at 90 ms. MR and TR stable, PA pressure estimate stable. Measurements Name Value Normal Range RVIDd (AP) 2D 2.6 cm (0.9 - 2.6) RAd ISD 4CH 5 cm (3.4 - 4.9) RA (A4C)W 4.2 cm (2.9 - 4.6) IVSd (2D) 1.3 cm (0.6 - 1) LVPWd (2D) 1.3 cm (0.6 - 1) LVIDd (2D) 3.5 cm (3.6 - 5.4) LVIDs (2D) 2.8 cm - LV FS (2D) 19 % (25 - 45) Aortic Annulus 1.8 cm (1.4 - 2.6) Ao root diameter (2D) 3.1 cm (2.1 - 3.5) Ascending Ao 3.4 cm (2.1 - 3.4) Aortic arch 2.7 cm (1.8 - 3.4) LA dimension (AP) 2D 3.1 cm (2.3 - 3.8) LAd ISD 4CH 5.5 cm (2.9 - 5.3) LA ISD 4CH W 5.7 cm (2.5 - 4.5) Name Value Normal Range LA ESV SP 4CH (A/L) 79 ml - LA ESV SP 2CH (A/L) 62 ml - LA ESV BP (A/L) 71 ml - LA ESV BP (A/L) index 45 ml/m2 - LA ESV SP 4CH (MOD) 74 ml - LA ESV SP 2CH (MOD) 58 ml - Name Value Normal Range MV E-wave Vmax 1 m/sec - MV deceleration time 153.3 msec - MV A-wave Vmax 1.34 m/sec - MV E:A ratio 0.77 ratio - LV septal e' Vmax 0.04 m/sec - LV lateral e' Vmax 0.11 m/sec - LV E:e' septal ratio 25 ratio - LV E:e' lateral ratio 9.09 ratio - Name Value Normal Range AV Vmax 1.8 m/sec - AV VTI 36.7 cm - AV peak gradient 12.7 mmHg - AV mean gradient 4.34 mmHg - LVOT diameter 2 cm - LVOT Vmax 0.99 m/sec - LVOT VTI 17.34 cm - LVOT peak gradient 3.92 mmHg - LVOT mean gradient 1.86 mmHg - JOCELYNN (continuity Vmax) 1.7 cm2 - JOCELYNN (continuity VTI) 1.5 cm2 - HELADIO Vmax 0.57 m/sec - Name Value Normal Range MV Vmax 1.6 m/sec - MV VTI 34.32 cm - MV peak gradient 10.88 mmHg - MV mean gradient 4.54 mmHg - MV PHT 90 msec - MVA (PHT) 2.4 cm2 - MVA (continuity VTI) 1.5 cm2 - Name Value Normal Range TR Vmax 2.6 m/sec - TR peak gradient 27 mmHg - RAP 3 mmHg - RVSP 30 mmHg - IVC diameter 1.7 cm - Name Value Normal Range PV Vmax 1.1 m/sec - PV peak gradient 4.9 mmHg -
--- NOTE | 2017-11-27 15:18 | PN ---
Subjective Date of Service: 11/27/17 Interval History: Patient seen and examined. nauseous this AM. Denies chest pain, no SOB, abdominal pain increased this AM, improved with methadone. No further complaints , appears tired today. Son at bedside for visit. Objective Active Medications: Acetaminophen (Tylenol Tab*) 650 mg PO Q4H PRN PRN Reason: FEVER/PAIN Hydrocodone Bitart/Acetaminophen ([place] 5-325 Tab*) 1 tab PO Q6H PRN PRN Reason: PAIN Last Admin: 11/27/17 06:34 Dose: 1 tab Al[place]iren (Tekturna Tab*) 300 mg PO DAILY [facility] Last Admin: 11/27/17 08:47 Dose: 300 mg Aspirin (Aspirin Ec Tab*) 81 mg PO DAILY [facility] Last Admin: 11/27/17 08:42 Dose: 81 mg Calcitriol (Rocaltrol Cap*) 0.25 mcg PO DAILY [facility] Last Admin: 11/27/17 08:47 Dose: 0.25 mcg Carvedilol (Coreg Tab*) 25 mg PO BID [facility] Last Admin: 11/27/17 08:43 Dose: 25 mg Heparin Sodium (Porcine) (Heparin Vial(*)) 5,000 units SUBCUT Q12H [facility] Last Admin: 11/27/17 06:07 Dose: 5,000 units Ceftriaxone Sodium 1 gm/ (Sodium Chloride) 50 mls @ 200 mls/hr IVPB Q24H [facility] Last Admin: 11/26/17 16:59 Dose: 200 mls/hr Vancomycin HCl 750 mg/ Sodium (Chloride) 250 mls @ 166.667 mls/hr IVPB 1830 [facility] Last Admin: 11/26/17 18:00 Dose: 166.667 mls/hr Sodium Chloride (Ns 0.9% 500 Ml*) 500 mls @ 50 mls/hr IV ONCE ONE Stop: 11/27/17 21:52 Last Admin: 11/27/17 12:24 Dose: 50 mls/hr Lorazepam (Ativan Tab(*)) 2 mg PO Q6HR PRN PRN Reason: PAIN Last Admin: 11/27/17 06:11 Dose: 2 mg Methadone HCl (Dolophine Tab*) 5 mg PO Q12H PRN PRN Reason: PAIN Last Admin: 11/27/17 08:42 Dose: 5 mg Morphine Sulfate (Morphine Vial*) 1 mg IV Q4H PRN PRN Reason: PAIN Last Admin: 11/24/17 21:43 Dose: 1 mg Mupirocin (Bactroban 2 % Oint*) 1 applic TOPICAL DAILY [facility] Last Admin: 11/27/17 08:43 Dose: Not Given Omeprazole (Prilosec Cap*) 20 mg PO DAILY [facility] Last Admin: 11/27/17 08:42 Dose: 20 mg Prochlorperazine Edisylate (Compazine Inj*) 5 mg IV Q6H PRN PRN Reason: NAUSEA/VOMITING Last Admin: 11/27/17 12:25 Dose: 5 mg Sertraline HCl (Zoloft*) 50 mg PO DAILY [facility] Last Admin: 11/27/17 08:42 Dose: 50 mg Vital Signs - 8 hr 11/27/17 11/27/17 11/27/17 07:33 07:35 08:42 Temperature 98.6 F Pulse Rate 74 Respiratory 15 18 Rate Blood Pressure 147/71 (mmHg) O2 Sat by Pulse 93 Oximetry 11/27/17 11/27/17 11/27/17 08:43 11:10 11:20 Temperature 99.2 F Pulse Rate 85 Respiratory 18 20 16 Rate Blood Pressure 153/83 (mmHg) O2 Sat by Pulse 99 Oximetry Oxygen Devices in Use Now: Nasal Cannula Appearance: tired, ill appearing Eyes: No Scleral Icterus, PERRLA Ears/Nose/Mouth/Throat: NL Teeth, Lips, Gums, - - dry oral mucosa noted Neck: NL Appearance and Movements; NL JVP, Trachea Midline Respiratory: Symmetrical Chest Expansion and Respiratory Effort, - - periods of tachypnea, no distress, no wheeze, poor air entry at baseline Cardiovascular: NL Sounds; No Murmurs; No JVD, No Edema Abdominal: - - diffuse tenderness, no rebound Extremities: No Clubbing, Cyanosis Skin: - - old LE laceration almost healed, dressing CDI Neurological: Alert and Oriented x 3, - - general weakness Nutrition: Taking PO's Result Diagrams: 11/27/17 06:44 11/27/17 06:44 Additional Lab and Data: Lab Results 11/24/17 11/24/17 11/24/17 Range/Units 13:23 13:23 13:24 WBC 8.9 (3.5-10.8) 10^3/ul RBC 3.30 L (4.00-5.40) 10^6/ul Hgb 9.8 L (12.0-16.0) g/dl Hct 30 L (35-47) % MCV 90 (80-97) fL MCH 30 (27-31) pg MCHC 33 (31-36) g/dl RDW 17 H (10.5-15) % Plt Count 278 (150-450) 10^3/ul MPV 7.2 L (7.4-10.4) um3 Neut % (Auto) 82.1 (38-83) % Lymph % (Auto) 10.2 L (25-47) % [place] % (Auto) 4.3 (0-7) % Eos % (Auto) 2.4 (0-6) % Baso % (Auto) 1.0 (0-2) % Absolute Neuts (auto) 7.3 (1.5-7.7) 10^3/ul Absolute Lymphs (auto) 0.9 L (1.0-4.8) 10^3/ul Absolute Monos (auto) 0.4 (0-0.8) 10^3/ul Absolute Eos (auto) 0.2 (0-0.6) 10^3/ul Absolute Basos (auto) 0.1 (0-0.2) 10^3/ul Absolute Nucleated RBC 0 10^3/ul Nucleated RBC % 0 INR (Anticoag Therapy) 0.98 (0.77-1.02) APTT 40.4 H (26.0-36.3) seconds Sodium (135-145) mmol/L Potassium (3.5-5.0) mmol/L Chloride (101-111) mmol/L Carbon Dioxide (22-32) mmol/L Anion Gap (2-11) mmol/L BUN (6-24) mg/dL Creatinine (0.51-0.95) mg/dL Est GFR ( Amer) (>60) Est GFR (Non-Af Amer) (>60) BUN/Creatinine Ratio (8-20) Glucose (70-100) mg/dL Lactic Acid 0.5 (0.5-2.0) mmol/L Calcium (8.6-10.3) mg/dL Phosphorus (2.5-5.0) mg/dL Magnesium (1.9-2.7) mg/dL Total Bilirubin (0.2-1.0) mg/dL AST (13-39) U/L ALT (7-52) U/L Alkaline Phosphatase (34-104) U/L C-Reactive Protein (< 5.00) mg/L Total Protein (6.4-8.9) g/dL Albumin (3.2-5.2) g/dL Globulin (2-4) g/dL Albumin/Globulin Ratio (1-3) Lipase (11.0-82.0) U/L 11/24/17 Range/Units 13:24 WBC (3.5-10.8) 10^3/ul RBC (4.00-5.40) 10^6/ul Hgb (12.0-16.0) g/dl Hct (35-47) % MCV (80-97) fL MCH (27-31) pg MCHC (31-36) g/dl RDW (10.5-15) % Plt Count (150-450) 10^3/ul MPV (7.4-10.4) um3 Neut % (Auto) (38-83) % Lymph % (Auto) (25-47) % [place] % (Auto) (0-7) % Eos % (Auto) (0-6) % Baso % (Auto) (0-2) % Absolute Neuts (auto) (1.5-7.7) 10^3/ul Absolute Lymphs (auto) (1.0-4.8) 10^3/ul Absolute Monos (auto) (0-0.8) 10^3/ul Absolute Eos (auto) (0-0.6) 10^3/ul Absolute Basos (auto) (0-0.2) 10^3/ul Absolute Nucleated RBC 10^3/ul Nucleated RBC % INR (Anticoag Therapy) (0.77-1.02) APTT (26.0-36.3) seconds Sodium 136 (135-145) mmol/L Potassium 3.8 (3.5-5.0) mmol/L Chloride 96 L (101-111) mmol/L Carbon Dioxide 31 (22-32) mmol/L Anion Gap 9 (2-11) mmol/L BUN 49 H (6-24) mg/dL Creatinine 6.15 H (0.51-0.95) mg/dL Est GFR ( Amer) 9.0 (>60) Est GFR (Non-Af Amer) 7.0 (>60) BUN/Creatinine Ratio 8.0 (8-20) Glucose 103 H (70-100) mg/dL Lactic Acid (0.5-2.0) mmol/L Calcium 8.8 (8.6-10.3) mg/dL Phosphorus 4.8 (2.5-5.0) mg/dL Magnesium 1.7 L (1.9-2.7) mg/dL Total Bilirubin 0.20 (0.2-1.0) mg/dL AST 12 L (13-39) U/L ALT 11 (7-52) U/L Alkaline Phosphatase 82 (34-104) U/L C-Reactive Protein 147.07 H (< 5.00) mg/L Total Protein 5.3 L (6.4-8.9) g/dL Albumin 2.1 L (3.2-5.2) g/dL Globulin 3.2 (2-4) g/dL Albumin/Globulin Ratio 0.7 L (1-3) Lipase < 10 L (11.0-82.0) U/L Diagnostic Imaging: Patient Name: EDWARDO GUILLEN Medical Record#: [id number] Ordering Physician: Rohith Hassan MD Acct.#: [id number] : 1960 Age: 57 Sex: F Location: EMERGENCY DEPARTMENT Exam Date: 11/24/17 1312 ADM Status: REG ER Order Information: CT ABD/PEL W/O Accession Number: [id number] CPT: 16364 CLINICAL HISTORY: ABD PAIN COMPARISON: June 30, 2017 TECHNIQUE: Multiple contiguous axial CT scans were obtained of the abdomen and pelvis, without intravenous contrast enhancement. Coronal and sagittal multiplanar reformations are submitted for review. Oral contrast was not administered. FINDINGS: The study is limited by the lack of intravenous contrast. This limits evaluation of the solid organs and vasculature. LUNG BASES: There are moderate bilateral pleural effusions. LIVER: The liver is enlarged measuring 19 cm long axis. There are stable hepatic cysts. BILE DUCTS: There is no intrahepatic or extrahepatic biliary dilatation. GALLBLADDER: The gallbladder is not visualized. Surgical clips are noted in the gallbladder fossa. PANCREAS: The pancreas is normal, without mass or ductal dilatation. SPLEEN: Normal in size and appearance. UPPER GI TRACT: Evaluation of the gastrointestinal tract is limited by incomplete gastric distention. The upper GI tract is unremarkable. SMALL BOWEL AND MESENTERY: The small bowel is normal in contour, course, and caliber. There is no obstruction or dilatation. COLON: There is extensive diverticulosis of the descending and sigmoid colon. ADRENALS: Normal bilaterally. KIDNEYS: The kidneys are essentially replaced by a double cysts of varying attenuation consistent with polycystic kidney disease. These are stable. BLADDER: The bladder is collapsed and is not well evaluated. PELVIC ORGANS: The uterus and adnexa are grossly normal for technique. AORTA: There is calcific atherosclerotic disease of the abdominal aorta and its branches, without aneurysmal dilatation IVC: Unremarkable LYMPH NODES: There is no lymphadenopathy by size criteria. ABDOMINAL WALL: There is diffuse subcutaneous edema. BONES AND SOFT TISSUES: Degenerative changes are noted. There is diffuse subcutaneous edema. OTHER: There is a small amount of ascites a peritoneal dialysis catheter is noted. There is free intracranial gas. IMPRESSION: 1. BILATERAL PLEURAL EFFUSIONS. 2. EXTENSIVE SUBCUTANEOUS EDEMA. 3. SMALL AMOUNT OF ASCITES WITH A PERITONEAL DIALYSIS CATHETER. THERE IS ALSO FRAYED. NO GAS IS PRESUMABLY RELATED TO BE. WE'LL DIALYSIS CATHETER. 4. POLYCYSTIC KIDNEY DISEASE. 5. ATHEROSCLEROSIS. 6. EXTENSIVE DIVERTICULOSIS. 1 of 2 Assess/Plan/Problems-Billing Assessment: This is a 57 year old female, well known to our service, history of ESRD on PD, COPD/oxygen dependent, admitted for abdominal pain, r/o peritonitis, acute confusion, found to have new CVA on CT scan. - Patient Problems (1) Peritonitis Code(s): K65.9 - PERITONITIS, UNSPECIFIED SNOMED Code(s): 63885052 Comment: - Persistent abdominal pain - CT as above - Started on vanco and rocephin, however she did not have intraperitoneal instillation of ATBX - Vanco level >21 today - Discussed with ID, dose adjust vanco with pharmacy and hold tonight's dose - ID and Nephro following - Follow cultures - Supportive care (2) Fluid overload Code(s): E87.70 - FLUID OVERLOAD, UNSPECIFIED SNOMED Code(s): 65883350 Comment: - Plan per nephrology, had PD last night, patient states she was "pluggin up" during treatment last night, appreciate recs from Dr. Bianchi - Appears intravascularly dry today - Although she has fine crackles, she is otherwise dry, will trial very gentle IV hydration and monitor respiratory status. (3) Chronic pain Code(s): G89.29 - OTHER CHRONIC PAIN SNOMED Code(s): 32063802 Comment: - Continue analgesics as needed, acute on chronic, methadone added yesterday (4) End stage renal failure on dialysis Code(s): N18.6 - END STAGE RENAL DISEASE; Z99.2 - DEPENDENCE ON RENAL DIALYSIS SNOMED Code(s): 005506893 Comment: - Nightly PD as per nephrology (5) Inflammatory arthropathy Code(s): M19.90 - UNSPECIFIED OSTEOARTHRITIS, UNSPECIFIED SITE SNOMED Code(s) : 5424850 Comment: - Hold Enbrel while being worked up/treated for peritonitis (6) COPD (chronic obstructive pulmonary disease) Code(s): J44.9 - CHRONIC OBSTRUCTIVE PULMONARY DISEASE, UNSPECIFIED SNOMED Code(s): 75811464 Comment: - Continue O2 - Appears improved today Status and Disposition: Remain inpatient, dispo planning home with VNS when clear by ID and nephrology.
[2017-11-27] MEDS ORDERED: [UNRECOGNIZED DRUG - OTHER] FOLLOW UP PRN (15:32)
[2017-11-27] MEDS: cefTRIAXone(*) 1 GM in NS 0.9% 50 ML* 50 ML IVPB SCH (16:34)
[2017-11-27] MEDS ORDERED: Heparin DIALYSIS ONLY(*) 1,000 UNITS/ML VIAL DIALYSIS ONE (17:00)
[2017-11-28] MEDS: LORazepam TAB(*) 1 MG PO PRN ×2 (03:42→15:17)
[2017-11-28] MEDS: Heparin VIAL(*) 5000 UNITS/ML VIAL (FIVE THOUSAND) SUBCUT SCH ×2 (06:35→17:29)
[2017-11-28] MEDS: Vancomycin Random Level* NOTE FOLLOW UP SCH (06:39)
[2017-11-28] MEDS: Omeprazole CAP* 20 MG PO SCH (08:34)
[2017-11-28] MEDS: Aliskiren TAB* 150 MG PO SCH (08:34)
[2017-11-28] MEDS: Aspirin EC TAB* 81 MG TAB.EC PO SCH (08:34)
[2017-11-28] MEDS: Calcitriol CAP* 0.25 MCG PO SCH (08:34)
[2017-11-28] MEDS: Carvedilol TAB* 25 MG PO SCH ×2 (08:34→20:54)
[2017-11-28] MEDS: Sertraline* 50 MG TAB PO SCH (08:34)
[2017-11-28] MEDS: Mupirocin 2% OINT* TUBE TOPICAL SCH (08:36)
[2017-11-28] MEDS ORDERED: Heparin DIALYSIS ONLY(*) 1,000 UNITS/ML VIAL DIALYSIS ONE (15:00)
--- NOTE | 2017-11-28 17:12 | PN ---
Subjective Date of Service: 11/28/17 Interval History: Patient seen and examined. Does appear a little improved today. No confusion, abdominal pain with mild improvment, responding well to pain meds. Denies nausea today, no vomiting. No chest pain or SOB. Denies fevers or chills. Objective Active Medications: Acetaminophen (Tylenol Tab*) 650 mg PO Q4H PRN PRN Reason: FEVER/PAIN Hydrocodone Bitart/Acetaminophen ([place] [address] 5-325 Tab*) 1 tab PO Q6H PRN PRN Reason: PAIN Last Admin: 11/27/17 23:54 Dose: 1 tab [place] ([place]turna Tab*) 300 mg PO DAILY [facility] Aspirin (Aspirin Ec Tab*) 81 mg PO DAILY [facility] Last Admin: 11/28/17 08:34 Dose: 81 mg Atorvastatin Calcium (Lipitor*) 20 mg PO 2100 [facility] Calcitriol (Rocaltrol Cap*) 0.25 mcg PO DAILY [facility] Last Admin: 11/28/17 08:34 Dose: 0.25 mcg Carvedilol (Coreg Tab*) 25 mg PO BID [facility] Last Admin: 11/28/17 08:34 Dose: 25 mg Heparin Sodium (Porcine) (Heparin Vial(*)) 5,000 units SUBCUT Q12H [facility] Last Admin: 11/28/17 06:35 Dose: 5,000 units Ceftriaxone Sodium 1 gm/ (Sodium Chloride) 50 mls @ 200 mls/hr IVPB Q24H [facility] Last Admin: 11/27/17 16:34 Dose: 200 mls/hr Lorazepam (Ativan Tab(*)) 2 mg PO Q6HR PRN PRN Reason: PAIN Last Admin: 11/28/17 15:17 Dose: 2 mg Methadone HCl (Dolophine Tab*) 5 mg PO Q12H PRN PRN Reason: PAIN Last Admin: 11/27/17 08:42 Dose: 5 mg Morphine Sulfate (Morphine Vial*) 1 mg IV Q4H PRN PRN Reason: PAIN Last Admin: 11/24/17 21:43 Dose: 1 mg Mupirocin (Bactroban 2 % Oint*) 1 applic TOPICAL DAILY [facility] Last Admin: 11/28/17 08:36 Dose: Not Given Omeprazole (Prilosec Cap*) 20 mg PO DAILY [facility] Last Admin: 11/28/17 08:34 Dose: 20 mg Pharmacy Consult (Vancomycin Per Pharmacy*) 1 note FOLLOW UP . PRN PRN Reason: PER PROTOCOL Pharmacy Consult (Vancomycin Random Level*) 1 note FOLLOW UP 0600 [facility] Last Admin: 11/28/17 06:39 Dose: 1 note Prochlorperazine Edisylate (Compazine Inj*) 5 mg IV Q6H PRN PRN Reason: NAUSEA/VOMITING Last Admin: 11/27/17 12:25 Dose: 5 mg Sertraline HCl (Zoloft*) 50 mg PO DAILY [facility] Last Admin: 11/28/17 08:34 Dose: 50 mg Vital Signs - 8 hr 11/28/17 11/28/17 11/28/17 11:34 15:17 15:40 Temperature 99.0 F 98.1 F Pulse Rate 73 71 Respiratory 15 19 16 Rate Blood Pressure 133/70 124/69 (mmHg) O2 Sat by Pulse 100 99 Oximetry Oxygen Devices in Use Now: Nasal Cannula Appearance: Alert, ill-appearing Eyes: No Scleral Icterus, PERRLA Ears/Nose/Mouth/Throat: Clear Oropharnyx, Mucous Membranes Moist Neck: NL Appearance and Movements; NL JVP, Trachea Midline Respiratory: Symmetrical Chest Expansion and Respiratory Effort, - - diminished throughout, no wheeze Cardiovascular: NL Sounds; No Murmurs; No JVD, RRR - multifocal PVCs Abdominal: NL Sounds; No Tenderness; No Distention Extremities: No Edema Skin: - - LLE dressed, CDI Neurological: Alert and Oriented x 3 Nutrition: Taking PO's Result Diagrams: 11/27/17 06:44 11/27/17 06:44 Additional Lab and Data: Lab Results 11/24/17 11/24/17 11/24/17 Range/Units 13:23 13:23 13:24 WBC 8.9 (3.5-10.8) 10^3/ul RBC 3.30 L (4.00-5.40) 10^6/ul Hgb 9.8 L (12.0-16.0) g/dl Hct 30 L (35-47) % MCV 90 (80-97) fL MCH 30 (27-31) pg MCHC 33 (31-36) g/dl RDW 17 H (10.5-15) % Plt Count 278 (150-450) 10^3/ul MPV 7.2 L (7.4-10.4) um3 Neut % (Auto) 82.1 (38-83) % Lymph % (Auto) 10.2 L (25-47) % [place] % (Auto) 4.3 (0-7) % Eos % (Auto) 2.4 (0-6) % Baso % (Auto) 1.0 (0-2) % Absolute Neuts (auto) 7.3 (1.5-7.7) 10^3/ul Absolute Lymphs (auto) 0.9 L (1.0-4.8) 10^3/ul Absolute Monos (auto) 0.4 (0-0.8) 10^3/ul Absolute Eos (auto) 0.2 (0-0.6) 10^3/ul Absolute Basos (auto) 0.1 (0-0.2) 10^3/ul Absolute Nucleated RBC 0 10^3/ul Nucleated RBC % 0 INR (Anticoag Therapy) 0.98 (0.77-1.02) APTT 40.4 H (26.0-36.3) seconds Sodium (135-145) mmol/L Potassium (3.5-5.0) mmol/L Chloride (101-111) mmol/L Carbon Dioxide (22-32) mmol/L Anion Gap (2-11) mmol/L BUN (6-24) mg/dL Creatinine (0.51-0.95) mg/dL Est GFR ( Amer) (>60) Est GFR (Non-Af Amer) (>60) BUN/Creatinine Ratio (8-20) Glucose (70-100) mg/dL Lactic Acid 0.5 (0.5-2.0) mmol/L Calcium (8.6-10.3) mg/dL Phosphorus (2.5-5.0) mg/dL Magnesium (1.9-2.7) mg/dL Total Bilirubin (0.2-1.0) mg/dL AST (13-39) U/L ALT (7-52) U/L Alkaline Phosphatase (34-104) U/L C-Reactive Protein (< 5.00) mg/L Total Protein (6.4-8.9) g/dL Albumin (3.2-5.2) g/dL Globulin (2-4) g/dL Albumin/Globulin Ratio (1-3) Lipase (11.0-82.0) U/L //18 Range/Units 13:24 WBC (3.5-10.8) 10^3/ul RBC (4.00-5.40) 10^6/ul Hgb (12.0-16.0) g/dl Hct (35-47) % MCV (80-97) fL MCH (27-31) pg MCHC (31-36) g/dl RDW (10.5-15) % Plt Count (150-450) 10^3/ul MPV (7.4-10.4) um3 Neut % (Auto) (38-83) % Lymph % (Auto) (25-47) % [place] % (Auto) (0-7) % Eos % (Auto) (0-6) % Baso % (Auto) (0-2) % Absolute Neuts (auto) (1.5-7.7) 10^3/ul Absolute Lymphs (auto) (1.0-4.8) 10^3/ul Absolute Monos (auto) (0-0.8) 10^3/ul Absolute Eos (auto) (0-0.6) 10^3/ul Absolute Basos (auto) (0-0.2) 10^3/ul Absolute Nucleated RBC 10^3/ul Nucleated RBC % INR (Anticoag Therapy) (0.77-1.02) APTT (26.0-36.3) seconds Sodium 136 (135-145) mmol/L Potassium 3.8 (3.5-5.0) mmol/L Chloride 96 L (101-111) mmol/L Carbon Dioxide 31 (22-32) mmol/L Anion Gap 9 (2-11) mmol/L BUN 49 H (6-24) mg/dL Creatinine 6.15 H (0.51-0.95) mg/dL Est GFR ( Amer) 9.0 (>60) Est GFR (Non-Af Amer) 7.0 (>60) BUN/Creatinine Ratio 8.0 (8-20) Glucose 103 H (70-100) mg/dL Lactic Acid (0.5-2.0) mmol/L Calcium 8.8 (8.6-10.3) mg/dL Phosphorus 4.8 (2.5-5.0) mg/dL Magnesium 1.7 L (1.9-2.7) mg/dL Total Bilirubin 0.20 (0.2-1.0) mg/dL AST 12 L (13-39) U/L ALT 11 (7-52) U/L Alkaline Phosphatase 82 (34-104) U/L C-Reactive Protein 147.07 H (< 5.00) mg/L Total Protein 5.3 L (6.4-8.9) g/dL Albumin 2.1 L (3.2-5.2) g/dL Globulin 3.2 (2-4) g/dL Albumin/Globulin Ratio 0.7 L (1-3) Lipase < 10 L (11.0-82.0) U/L Microbiology and Other Data: Microbiology 11/24/17 19:59 Sterile Body Fluid Culture - Preliminary Peritoneal Fluid No Growth Day 3 Sterile Body Fluid Culture - Preliminary No Growth Day 3 11/24/17 17:30 Aerobic Blood Culture - Preliminary Blood Venous No Growth Day 3 Anaerobic Blood Culture - Preliminary No Growth Day 3 Diagnostic Imaging: Patient Name: EDWARDO GUILLEN Medical Record#: [id number] Ordering Physician: Rohith Hassan MD Acct.#: [id number] : 1960 Age: 57 Sex: F Location: EMERGENCY DEPARTMENT Exam Date: 11/24/171311 ADM Status: REG ER Order Information: CT ABD/PEL W/O Accession Number: [id number] CPT: 61734 CLINICAL HISTORY: ABD PAIN COMPARISON: June 30, 2017 TECHNIQUE: Multiple contiguous axial CT scans were obtained of the abdomen and pelvis, without intravenous contrast enhancement. Coronal and sagittal multiplanar reformations are submitted for review. Oral contrast was not administered. FINDINGS: The study is limited by the lack of intravenous contrast. This limits evaluation of the solid organs and vasculature. LUNG BASES: There are moderate bilateral pleural effusions. LIVER: The liver is enlarged measuring 19 cm long axis. There are stable hepatic cysts. BILE DUCTS: There is no intrahepatic or extrahepatic biliary dilatation. GALLBLADDER: The gallbladder is not visualized. Surgical clips are noted in the gallbladder fossa. PANCREAS: The pancreas is normal, without mass or ductal dilatation. SPLEEN: Normal in size and appearance. UPPER GI TRACT: Evaluation of the gastrointestinal tract is limited by incomplete gastric distention. The upper GI tract is unremarkable. SMALL BOWEL AND MESENTERY: The small bowel is normal in contour, course, and caliber. There is no obstruction or dilatation. COLON: There is extensive diverticulosis of the descending and sigmoid colon. ADRENALS: Normal bilaterally. KIDNEYS: The kidneys are essentially replaced by a double cysts of varying attenuation consistent with polycystic kidney disease. These are stable. BLADDER: The bladder is collapsed and is not well evaluated. PELVIC ORGANS: The uterus and adnexa are grossly normal for technique. AORTA: There is calcific atherosclerotic disease of the abdominal aorta and its branches, without aneurysmal dilatation IVC: Unremarkable LYMPH NODES: There is no lymphadenopathy by size criteria. ABDOMINAL WALL: There is diffuse subcutaneous edema. BONES AND SOFT TISSUES: Degenerative changes are noted. There is diffuse subcutaneous edema. OTHER: There is a small amount of ascites a peritoneal dialysis catheter is noted. There is free intracranial gas. IMPRESSION: 1. BILATERAL PLEURAL EFFUSIONS. 2. EXTENSIVE SUBCUTANEOUS EDEMA. 3. SMALL AMOUNT OF ASCITES WITH A PERITONEAL DIALYSIS CATHETER. THERE IS ALSO FRAYED. NO GAS IS PRESUMABLY RELATED TO BE. WE'LL DIALYSIS CATHETER. 4. POLYCYSTIC KIDNEY DISEASE. 5. ATHEROSCLEROSIS. 6. EXTENSIVE DIVERTICULOSIS. 1 of 2 Assess/Plan/Problems-Billing Assessment: This is a 57 year old female, well known to our service, history of ESRD on PD, COPD/oxygen dependent, admitted for abdominal pain, r/o peritonitis, acute confusion, found to have new CVA on CT scan. - Patient Problems (1) Peritonitis Code(s): K65.9 - PERITONITIS, UNSPECIFIED SNOMED Code(s): 66380946 Comment: - Persistent abdominal pain with some improvement today - CT as above - Vanco level 18 today, dose adjust vanco with pharmacy and hold tonight's dose , random level tomorrow - ID and Nephro following - Follow cultures NTD - Supportive care (2) CVA (cerebral vascular accident) Code(s): I63.9 - CEREBRAL INFARCTION, UNSPECIFIED SNOMED Code(s): 138245010 Comment: - CT as above - Neuro consult appreciated - Continue current managment with ASA - Will defer to neuro if Plavic to be initiated (3) Fluid overload Code(s): E87.70 - FLUID OVERLOAD, UNSPECIFIED SNOMED Code(s): 00975271 Comment: - Appears euvolemic - Continue to monitor (4) Chronic pain Code(s): G89.29 - OTHER CHRONIC PAIN SNOMED Code(s): 00778864 Comment: - Continue analgesics as needed, acute on chronic, methadone added yesterday (5) End stage renal failure on dialysis Code(s): N18.6 - END STAGE RENAL DISEASE; Z99.2 - DEPENDENCE ON RENAL DIALYSIS SNOMED Code(s): 217307598 Comment: - Nightly PD as per nephrology (6) Inflammatory arthropathy Code(s): M19.90 - UNSPECIFIED OSTEOARTHRITIS, UNSPECIFIED SITE SNOMED Code(s) : 3454529 Comment: - Hold Enbrel while being worked up/treated for peritonitis (7) COPD (chronic obstructive pulmonary disease) Code(s): J44.9 - CHRONIC OBSTRUCTIVE PULMONARY DISEASE, UNSPECIFIED SNOMED Code(s): 23565998 Comment: - Continue O2 - Still desats without O2, education provided (8) DVT prophylaxis Code(s): GYL9871 - SNOMED Code(s): 179603531 Comment: - HSQ (9) Full code status Code(s): Z78.9 - OTHER SPECIFIED HEALTH STATUS SNOMED Code(s): 638860226 Status and Disposition: Remain inpatient, dispo planning home with VNS when clear by ID and nephrology.
[2017-11-28] MEDS: cefTRIAXone(*) 1 GM in NS 0.9% 50 ML* 50 ML IVPB SCH (17:29)
--- NOTE | 2017-11-28 19:42 | RAD ---
Indication: Bilateral lower extremity edema. Duplex Doppler sonography of the deep venous system of both lower extremities was performed. Bilaterally the common femoral veins, proximal greater saphenous veins, proximal deep femoral veins, femoral veins, popliteal veins, posterior tibial veins and peroneal veins appear patent and compressible. IMPRESSION: NO EVIDENCE OF DEEP VENOUS THROMBOSIS OF EITHER LOWER EXTREMITY IS PRESENT.
[2017-11-28] MEDS: Methadone TAB* 5 MG PO PRN (20:53)
[2017-11-28] MEDS: Atorvastatin* 20 MG TAB PO SCH (20:54)
[2017-11-29] MEDS: Heparin VIAL(*) 5000 UNITS/ML VIAL (FIVE THOUSAND) SUBCUT SCH ×2 (06:20→17:56)
[2017-11-29] MEDS: HYDROcodone/ACETAMIN 5-325 MG* 1 TAB PO PRN (06:20)
[2017-11-29] MEDS: Vancomycin Random Level* NOTE FOLLOW UP SCH (08:49)
[2017-11-29] MEDS: LORazepam TAB(*) 1 MG PO PRN (10:28)
[2017-11-29] MEDS: Omeprazole CAP* 20 MG PO SCH (10:29)
[2017-11-29] MEDS: Sertraline* 50 MG TAB PO SCH (10:29)
[2017-11-29] MEDS: Carvedilol TAB* 25 MG PO SCH ×2 (10:29→20:47)
[2017-11-29] MEDS: Methadone TAB* 5 MG PO PRN (10:29)
[2017-11-29] MEDS: Calcitriol CAP* 0.25 MCG PO SCH (10:29)
[2017-11-29] MEDS: Aspirin EC TAB* 81 MG TAB.EC PO SCH (10:31)
[2017-11-29] MEDS: Aliskiren TAB* 300 MG PO SCH (10:31)
[2017-11-29] MEDS: Mupirocin 2% OINT* TUBE TOPICAL SCH (12:08)
[2017-11-29] MEDS: Clopidogrel TAB* 75 MG PO SCH (14:26)
[2017-11-29] MEDS ORDERED: Heparin DIALYSIS ONLY(*) 1,000 UNITS/ML VIAL DIALYSIS ONE (16:00)
--- NOTE | 2017-11-29 16:32 | PN ---
Subjective Date of Service: 11/29/17 Interval History: Patient seen and examined. Feeling better today, states pain is improving. No fevers or chills, no dizziness or confusion. Tolerating PO. Objective Active Medications: Acetaminophen (Tylenol Tab*) 650 mg PO Q4H PRN PRN Reason: FEVER/PAIN Hydrocodone Bitart/Acetaminophen (Stirum 5-325 Tab*) 1 tab PO Q6H PRN PRN Reason: PAIN Last Admin: 11/29/17 06:20 Dose: 1 tab [place] (Tekturna Tab*) 300 mg PO DAILY [facility] Last Admin: 11/29/17 10:31 Dose: 300 mg Aspirin (Aspirin Ec Tab*) 81 mg PO DAILY [facility] Last Admin: 11/29/17 10:31 Dose: 81 mg Atorvastatin Calcium (Lipitor*) 20 mg PO 2100 [facility] Last Admin: 11/28/17 20:54 Dose: 20 mg Calcitriol (Rocaltrol Cap*) 0.25 mcg PO DAILY [facility] Last Admin: 11/29/17 10:29 Dose: 0.25 mcg Carvedilol (Coreg Tab*) 25 mg PO BID [facility] Last Admin: 11/29/17 10:29 Dose: 25 mg Clopidogrel Bisulfate (Plavix Tab*) 75 mg PO DAILY [facility] Last Admin: 11/29/17 14:26 Dose: 75 mg Heparin Sodium (Porcine) (Heparin Vial(*)) 5,000 units SUBCUT Q12H [facility] Last Admin: 11/29/17 06:20 Dose: 5,000 units Lorazepam (Ativan Tab(*)) 2 mg PO Q6HR PRN PRN Reason: PAIN Last Admin: 11/29/17 10:28 Dose: 2 mg Methadone HCl (Dolophine Tab*) 5 mg PO Q12H PRN PRN Reason: PAIN Last Admin: 11/29/17 10:29 Dose: 5 mg Mupirocin (Bactroban 2 % Oint*) 1 applic TOPICAL DAILY [facility] Last Admin: 11/29/17 12:08 Dose: Not Given Pantoprazole Sodium (Protonix Tab (Nf)) 40 mg PO DAILY [facility] Prochlorperazine Edisylate (Compazine Inj*) 5 mg IV Q6H PRN PRN Reason: NAUSEA/VOMITING Last Admin: 11/27/17 12:25 Dose: 5 mg Sertraline HCl (Zoloft*) 50 mg PO DAILY [facility] Last Admin: 11/29/17 10:29 Dose: 50 mg Vital Signs - 8 hr 11/29/17 11/29/17 11/29/17 09:59 10:28 10:29 Temperature Pulse Rate Respiratory 20 20 20 Rate Blood Pressure (mmHg) O2 Sat by Pulse Oximetry 11/29/17 11/29/17 11/29/17 13:59 14:37 15:35 Temperature 97.5 F 97.8 F Pulse Rate 69 66 Respiratory 18 16 12 Rate Blood Pressure 152/70 158/77 (mmHg) O2 Sat by Pulse 100 100 Oximetry Oxygen Devices in Use Now: Nasal Cannula Appearance: Alert, NAD, frail appearing Eyes: No Scleral Icterus, PERRLA Ears/Nose/Mouth/Throat: Clear Oropharnyx, Mucous Membranes Moist Neck: NL Appearance and Movements; NL JVP, Trachea Midline Respiratory: Symmetrical Chest Expansion and Respiratory Effort, - - diminished throughout lung curry Cardiovascular: NL Sounds; No Murmurs; No JVD, RRR - PVCs on tele Abdominal: - - diffuse tenderness Extremities: No Clubbing, Cyanosis Skin: - - LLE dressing CDI Neurological: Alert and Oriented x 3 Nutrition: Taking PO's Result Diagrams: 11/27/17 06:44 11/27/17 06:44 Additional Lab and Data: Lab Results 11/24/17 11/24/17 11/24/17 Range/Units 13:23 13:23 13:24 WBC 8.9 (3.5-10.8) 10^3/ul RBC 3.30 L (4.00-5.40) 10^6/ul Hgb 9.8 L (12.0-16.0) g/dl Hct 30 L (35-47) % MCV 90 (80-97) fL MCH 30 (27-31) pg MCHC 33 (31-36) g/dl RDW 17 H (10.5-15) % Plt Count 278 (150-450) 10^3/ul MPV 7.2 L (7.4-10.4) um3 Neut % (Auto) 82.1 (38-83) % Lymph % (Auto) 10.2 L (25-47) % [place] % (Auto) 4.3 (0-7) % Eos % (Auto) 2.4 (0-6) % Baso % (Auto) 1.0 (0-2) % Absolute Neuts (auto) 7.3 (1.5-7.7) 10^3/ul Absolute Lymphs (auto) 0.9 L (1.0-4.8) 10^3/ul Absolute Monos (auto) 0.4 (0-0.8) 10^3/ul Absolute Eos (auto) 0.2 (0-0.6) 10^3/ul Absolute Basos (auto) 0.1 (0-0.2) 10^3/ul Absolute Nucleated RBC 0 10^3/ul Nucleated RBC % 0 INR (Anticoag Therapy) 0.98 (0.77-1.02) APTT 40.4 H (26.0-36.3) seconds Sodium (135-145) mmol/L Potassium (3.5-5.0) mmol/L Chloride (101-111) mmol/L Carbon Dioxide (22-32) mmol/L Anion Gap (2-11) mmol/L BUN (6-24) mg/dL Creatinine (0.51-0.95) mg/dL Est GFR ( Amer) (>60) Est GFR (Non-Af Amer) (>60) BUN/Creatinine Ratio (8-20) Glucose (70-100) mg/dL Lactic Acid 0.5 (0.5-2.0) mmol/L Calcium (8.6-10.3) mg/dL Phosphorus (2.5-5.0) mg/dL Magnesium (1.9-2.7) mg/dL Total Bilirubin (0.2-1.0) mg/dL AST (13-39) U/L ALT (7-52) U/L Alkaline Phosphatase (34-104) U/L C-Reactive Protein (< 5.00) mg/L Total Protein (6.4-8.9) g/dL Albumin (3.2-5.2) g/dL Globulin (2-4) g/dL Albumin/Globulin Ratio (1-3) Lipase (11.0-82.0) U/L 11/24/17 Range/Units 13:24 WBC (3.5-10.8) 10^3/ul RBC (4.00-5.40) 10^6/ul Hgb (12.0-16.0) g/dl Hct (35-47) % MCV (80-97) fL MCH (27-31) pg MCHC (31-36) g/dl RDW (10.5-15) % Plt Count (150-450) 10^3/ul MPV (7.4-10.4) um3 Neut % (Auto) (38-83) % Lymph % (Auto) (25-47) % [place] % (Auto) (0-7) % Eos % (Auto) (0-6) % Baso % (Auto) (0-2) % Absolute Neuts (auto) (1.5-7.7) 10^3/ul Absolute Lymphs (auto) (1.0-4.8) 10^3/ul Absolute Monos (auto) (0-0.8) 10^3/ul Absolute Eos (auto) (0-0.6) 10^3/ul Absolute Basos (auto) (0-0.2) 10^3/ul Absolute Nucleated RBC 10^3/ul Nucleated RBC % INR (Anticoag Therapy) (0.77-1.02) APTT (26.0-36.3) seconds Sodium 136 (135-145) mmol/L Potassium 3.8 (3.5-5.0) mmol/L Chloride 96 L (101-111) mmol/L Carbon Dioxide 31 (22-32) mmol/L Anion Gap 9 (2-11) mmol/L BUN 49 H (6-24) mg/dL Creatinine 6.15 H (0.51-0.95) mg/dL Est GFR ( Amer) 9.0 (>60) Est GFR (Non-Af Amer) 7.0 (>60) BUN/Creatinine Ratio 8.0 (8-20) Glucose 103 H (70-100) mg/dL Lactic Acid (0.5-2.0) mmol/L Calcium 8.8 (8.6-10.3) mg/dL Phosphorus 4.8 (2.5-5.0) mg/dL Magnesium 1.7 L (1.9-2.7) mg/dL Total Bilirubin 0.20 (0.2-1.0) mg/dL AST 12 L (13-39) U/L ALT 11 (7-52) U/L Alkaline Phosphatase 82 (34-104) U/L C-Reactive Protein 147.07 H (< 5.00) mg/L Total Protein 5.3 L (6.4-8.9) g/dL Albumin 2.1 L (3.2-5.2) g/dL Globulin 3.2 (2-4) g/dL Albumin/Globulin Ratio 0.7 L (1-3) Lipase < 10 L (11.0-82.0) U/L Microbiology and Other Data: Microbiology 11/24/17 19:59 Sterile Body Fluid Culture - Preliminary Peritoneal Fluid No Growth Day 3 Sterile Body Fluid Culture - Preliminary No Growth Day 3 11/24/17 17:30 Aerobic Blood Culture - Preliminary Blood Venous No Growth Day 3 Anaerobic Blood Culture - Preliminary No Growth Day 3 Diagnostic Imaging: Patient Name: EDWARDO GUILLEN Medical Record#: [id number] Ordering Physician: Rohith Hassan MD Acct.#: [id number] : 1960 Age: 57 Sex: F Location: EMERGENCY DEPARTMENT Exam Date: 11/24/171311 ADM Status: REG ER Order Information: CT ABD/PEL W/O Accession Number: [id number] CPT: 04036 CLINICAL HISTORY: ABD PAIN COMPARISON: June 30, 2017 TECHNIQUE: Multiple contiguous axial CT scans were obtained of the abdomen and pelvis, without intravenous contrast enhancement. Coronal and sagittal multiplanar reformations are submitted for review. Oral contrast was not administered. FINDINGS: The study is limited by the lack of intravenous contrast. This limits evaluation of the solid organs and vasculature. LUNG BASES: There are moderate bilateral pleural effusions. LIVER: The liver is enlarged measuring 19 cm long axis. There are stable hepatic cysts. BILE DUCTS: There is no intrahepatic or extrahepatic biliary dilatation. GALLBLADDER: The gallbladder is not visualized. Surgical clips are noted in the gallbladder fossa. PANCREAS: The pancreas is normal, without mass or ductal dilatation. SPLEEN: Normal in size and appearance. UPPER GI TRACT: Evaluation of the gastrointestinal tract is limited by incomplete gastric distention. The upper GI tract is unremarkable. SMALL BOWEL AND MESENTERY: The small bowel is normal in contour, course, and caliber. There is no obstruction or dilatation. COLON: There is extensive diverticulosis of the descending and sigmoid colon. ADRENALS: Normal bilaterally. KIDNEYS: The kidneys are essentially replaced by a double cysts of varying attenuation consistent with polycystic kidney disease. These are stable. BLADDER: The bladder is collapsed and is not well evaluated. PELVIC ORGANS: The uterus and adnexa are grossly normal for technique. AORTA: There is calcific atherosclerotic disease of the abdominal aorta and its branches, without aneurysmal dilatation IVC: Unremarkable LYMPH NODES: There is no lymphadenopathy by size criteria. ABDOMINAL WALL: There is diffuse subcutaneous edema. BONES AND SOFT TISSUES: Degenerative changes are noted. There is diffuse subcutaneous edema. OTHER: There is a small amount of ascites a peritoneal dialysis catheter is noted. There is free intracranial gas. IMPRESSION: 1. BILATERAL PLEURAL EFFUSIONS. 2. EXTENSIVE SUBCUTANEOUS EDEMA. 3. SMALL AMOUNT OF ASCITES WITH A PERITONEAL DIALYSIS CATHETER. THERE IS ALSO FRAYED. NO GAS IS PRESUMABLY RELATED TO BE. WE'LL DIALYSIS CATHETER. 4. POLYCYSTIC KIDNEY DISEASE. 5. ATHEROSCLEROSIS. 6. EXTENSIVE DIVERTICULOSIS. 1 of 2 Assess/Plan/Problems-Billing Assessment: This is a 57 year old female, well known to our service, history of ESRD on PD, COPD/oxygen dependent, admitted for abdominal pain, r/o peritonitis, acute confusion, found to have new CVA on CT scan. - Patient Problems (1) Peritonitis Code(s): K65.9 - PERITONITIS, UNSPECIFIED SNOMED Code(s): 49381851 Comment: - Persistent abdominal pain with continued improvment - CT as above - Per ID, DC antibiotics today - Will monitor off antibiotics and assess in AM (2) CVA (cerebral vascular accident) Code(s): I63.9 - CEREBRAL INFARCTION, UNSPECIFIED SNOMED Code(s): 772281388 Comment: - CT as above - Neuro consult appreciated - Start plavix today and continue ASA daily - Continue duel anti-platelet therapy for 30 days (3) Fluid overload Code(s): E87.70 - FLUID OVERLOAD, UNSPECIFIED SNOMED Code(s): 10297991 Comment: - Resolved (4) Chronic pain Code(s): G89.29 - OTHER CHRONIC PAIN SNOMED Code(s): 70232271 Comment: - Improved with methadone added to regimen (5) End stage renal failure on dialysis Code(s): N18.6 - END STAGE RENAL DISEASE; Z99.2 - DEPENDENCE ON RENAL DIALYSIS SNOMED Code(s): 418424014 Comment: - Nightly PD as per nephrology (6) Inflammatory arthropathy Code(s): M19.90 - UNSPECIFIED OSTEOARTHRITIS, UNSPECIFIED SITE SNOMED Code(s) : 9690656 Comment: - Restart enbrel at DC (7) COPD (chronic obstructive pulmonary disease) Code(s): J44.9 - CHRONIC OBSTRUCTIVE PULMONARY DISEASE, UNSPECIFIED SNOMED Code(s): 17523093 Comment: - Continue O2 - Still desats without O2, education provided (8) DVT prophylaxis Code(s): QQO9681 - SNOMED Code(s): 241945143 Comment: - HSQ (9) Full code status Code(s): Z78.9 - OTHER SPECIFIED HEALTH STATUS SNOMED Code(s): 534283256 Status and Disposition: Dispo home vs rehab. Follow PT eval and discharge likely tomorrow.
[2017-11-29] MEDS: Atorvastatin* 20 MG TAB PO SCH (20:47)
[2017-11-30] MEDS: Heparin VIAL(*) 5000 UNITS/ML VIAL (FIVE THOUSAND) SUBCUT SCH (05:42)
[2017-11-30] MEDS ORDERED: CMCS - Pantoprazole TAB (NF) 40 MG TAB PO SCH (09:00)
[2017-11-30] MEDS: Aliskiren TAB* 300 MG PO SCH (09:23)
[2017-11-30] MEDS: Aspirin EC TAB* 81 MG TAB.EC PO SCH (09:23)
[2017-11-30] MEDS: Calcitriol CAP* 0.25 MCG PO SCH (09:23)
[2017-11-30] MEDS: Carvedilol TAB* 25 MG PO SCH (09:23)
[2017-11-30] MEDS: Sertraline* 50 MG TAB PO SCH (09:23)
[2017-11-30] MEDS: Clopidogrel TAB* 75 MG PO SCH (09:23)
[2017-11-30] MEDS: Mupirocin 2% OINT* TUBE TOPICAL SCH ×2 (09:24→09:29)
[2017-11-30 12:50] VITALS: BP 166/79
[2017-11-30] MEDS: Methadone TAB* 5 MG PO PRN (13:02)
[2017-11-30] MEDS: LORazepam TAB(*) 1 MG PO PRN (16:34)
--- NOTE | 2017-11-30 19:37 | DS ---
CC: Dr. Letty Duffy; Jet Bianchi MD * DISCHARGE SUMMARY: DATE OF ADMISSION: 11/25/17 DATE OF DISCHARGE: 11/30/17 ATTENDING PHYSICIAN: Miriam Vizcarra MD MY ATTENDING FOR TODAY: Julius Nash MD * (DICTATED BY JENNA CAMPA NP) HOSPITAL COURSE: This is a 57-year-old female well known to our service who has had multiple admissions in the past for abdominal pain, shortness of breath and fluid overload. The patient is on peritoneal dialysis for 15 years now. She is well known to Dr. Edison Bianchi. She has had a history of polycystic kidney disease for which she is on peritoneal dialysis. The patient presented again with shortness of breath and excruciating abdominal pain. It was thought that she may have peritonitis. Fluid samples were collected. She was started empirically on vancomycin and Rocephin. She was seen by Infectious Disease and by Dr. Bianchi. We continued her peritoneal dialysis nightly. She did not have anything return in culture. She remained afebrile; however, she did have this persistent abdominal pain. She was started on methadone, which she had taken back in September of this year, which worked well for her chronic pains and responded well. With no cultures growing any bacteria and her symptoms resolving on their own, we felt it safe to discharge the patient today. She had no acute rehab needs. She does have rehab in the home. She was cleared by Infectious Disease to be off antibiotics for the last 24 hours, her vancomycin was stopped as well as her Rocephin and she has fared very well. I had a long conversation with the patient's son regarding disposition planning. Both the patient and her son felt that she did not want to go to rehab even though Physical Therapy thought she would benefit from it; however, given her peritoneal dialysis it is very difficult to find placement for her in rehab. She opted to go home and continue to follow up with her home care nursing and outpatient wound care for a chronic lower extremity wound that has been healing very well and has had no acute changes since this admission. The patient also reported on the second day of admission that she felt dizzy and confused and was unsure how to use her telephone. She was sent for a CAT scan and found to have a new CVA. She was seen by Dr. Lugo of Neurology, who evaluated her scan and then sent the patient also for head and neck MRA and MRI of the brain. The patient's symptoms resolved very quickly. She was started on aspirin and Plavix for 30 days and optimized with statin as well. Per Dr. Lugo 's recommendations, her stroke appeared to be embolic; however, given her frail nature and history of chronic kidney disease, putting her on systemic anticoagulation would probably be very complicated. She has poor health in general, she is quite emaciated and frail. Two years ago when she had her last stroke, she was told by Dr. Lugo that she may potentially have further episodes like this. She had Dopplers that were negative while she was here, so at this point putting her on an antiplatelet regimen seemed the safest for her. Again, the patient was in agreement and Dr. Bianchi was kept in the loop on all the recommendations that were made. REVIEW OF SYSTEMS: On the day of discharge, review of systems is negative except as noted above. DISCHARGE DIAGNOSES: 1. Abdominal pain, rule out peritonitis. 2. Fluid overload secondary to end-stage renal disease. 3. History of hypertension. 4. History of cardiomyopathy with ejection fraction of 35%. 5. History of coronary artery disease, stable. 6. History of cerebrovascular accident. 7. History of inflammatory arthropathy, on Enbrel. 8. History of depression. 9. Chronic leg wound. DISCHARGE MEDICATIONS: Include: 1. Sertraline 50 mg daily. 2. Tekturna 300 mg daily. 3. Tylenol 650 mg q.4 hours as needed. 4. Ativan 2 mg q.6 hours as needed. 5. Rocaltrol 0.25 mcg daily. 6. Aspirin 81 mg daily. 7. Omeprazole 20 mg daily. 8. Enbrel 25 mg subcu q.7 days. 9. Naproxen 500 mg 2 times a day. 10. [place] 1 tablet q.6 hours as needed. 11. Carvedilol 25 mg 2 times a day. 12. Bactroban ointment to lower extremity daily. 13. Methadone 5 mg p.o. b.i.d. as needed for 5 days. 14. Plavix 75 mg daily. 15. Atorvastatin 20 mg daily. FOLLOWUPS: The patient was instructed to follow up with [facility] for her home care services; Dr. Edison Bianchi for her dialysis needs; and Dr. Letty Duffy, her primary care provider, within the next week. The patient was discharged in the care of her son in stable condition. All questions were answered. The patient stated her understanding of her discharge instructions. Again, I did discuss this extensively with the patient's son, Alex, who stated he was comfortable taking the patient home and continuing their in-home plan of care. JENNA CAMPA, SNEHA [id number]/[facility] #: [id number] EL
== END 2017-11-30 17:43 | disposition home health service (06) | DRG 919 ==
LOC: ED 11:22 → MED 15:53 → OBSVTOIN 11-25 14:00 → MEDTELE 11-26 11:37
PROVIDERS: ADMIT Internal Medicine; ATTEND Internal Medicine
PROC: 3E1M39Z Irrigation of Peritoneal Cavity using Dialysate, Percutaneous Approach (ICD-10-PCS; principal; 2017-11-25)
DX: T85.71XA Infection and inflammatory reaction due to peritoneal dialysis catheter, initial encounter (principal); K65.9 Peritonitis, unspecified; N18.6 End stage renal disease; I63.531 Cerebral infarction due to unspecified occlusion or stenosis of right posterior cerebral artery; 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 disease with heart failure and with stage 5 chronic kidney disease, or end stage renal disease; I42.9 Cardiomyopathy, unspecified; I25.10 Atherosclerotic heart disease of native coronary artery without angina pectoris; E78.00 Pure hypercholesterolemia, unspecified; I50.9 Heart failure, unspecified; K21.9 Gastro-esophageal reflux disease without esophagitis; M06.9 Rheumatoid arthritis, unspecified; F32.9 Major depressive disorder, single episode, unspecified; F41.9 Anxiety disorder, unspecified; R74.8 Abnormal levels of other serum enzymes; D63.1 Anemia in chronic kidney disease; H53.462 Homonymous bilateral field defects, left side; G89.29 Other chronic pain; Y73.1 Therapeutic (nonsurgical) and rehabilitative gastroenterology and urology devices associated with adverse incidents; M12.80 Other specific arthropathies, not elsewhere classified, unspecified site; E87.70 Fluid overload, unspecified; J44.9 Chronic obstructive pulmonary disease, unspecified; X58.XXXA Exposure to other specified factors, initial encounter; S81.812A Laceration without foreign body, left lower leg, initial encounter; K57.90 Diverticulosis of intestine, part unspecified, without perforation or abscess without bleeding; R41.0 Disorientation, unspecified; Q61.3 Polycystic kidney, unspecified; Z99.2 Dependence on renal dialysis; Z88.5 Allergy status to narcotic agent; Z91.048 Other nonmedicinal substance allergy status; I25.2 Old myocardial infarction; Z87.11 Personal history of peptic ulcer disease; Z86.73 Personal history of transient ischemic attack (TIA), and cerebral infarction without residual deficits; Z84.1 Family history of disorders of kidney and ureter; Z82.49 Family history of ischemic heart disease and other diseases of the circulatory system; Z81.8 Family history of other mental and behavioral disorders; Z79.02 Long term (current) use of antithrombotics/antiplatelets; Z79.82 Long term (current) use of aspirin; Z99.81 Dependence on supplemental oxygen; Y92.9 Unspecified place or not applicable
CPT/HCPCS: 36415; 70450; 70544; 70547; 70551; 71045; 74176; 80048; 80053; 80061; 80202; 82042; 82607; 82652; 82728; 82746; 83036; 83540; 83550; 83605; 83690; 83735; 84100; 84157; 85025; 85610; 85730; 86140; 87040; 89051; 90945; 93306; 93970; 99284; A9270-GY; G0257; G0378; G8978-GP-CJ; G8979-GP-CI; J0696; J0780; J1644; J2270; J3370; J3475

== ENCOUNTER 2017-11-30 20:48 | Inpatient (IN) | payer MEDICARE ==
--- NOTE | 2017-11-29 11:06 | PN ---
NEUROLOGY FOLLOWUP NOTE: DATE OF FOLLOWUP: 11/28/17 HISTORY: Ms. Charles notices no improvement in her vision off to the left, but also notices no new neurological issues. She continues to have intermittent abdominal pain, which was bad this morning, and seems to be worse right after she eats. MEDICATIONS: 1. Tylenol 650 q.4 p.r.n. 2. [place] 1 tab q.6 p.r.n. 3. Tekturna 300 mg daily. 4. Aspirin 81 mg daily. 5. Calcitriol 0.25 mcg daily. 6. Carvedilol 25 mg b.i.d. 7. Ceftriaxone 1 g daily. 8. Heparin 5000 units q.12 hours. 9. Lorazepam 2 mg q.6 hours p.r.n. pain. 10. Methadone 5 mg q.12 p.r.n. 11. Morphine 1 mg q.4 p.r.n. pain. 12. Bactroban ointment. 13. Omeprazole 20 mg daily. 14. Prochlorperazine 5 mg IV q.6 p.r.n. 15. Zoloft 50 mg daily. PHYSICAL EXAMINATION: Vital Signs: Temperature 98.1, blood pressure 124/69, heart rate 71, oxygen saturation 99% on 2 L. On general examination, she appears chronically ill. She appears to have mild increased work of breathing. She is in no acute distress. Her heart is in regular rate and rhythm. Lungs are clear laterally. She has flexion deformity of the digits 2 through 5 on the right hand. She has multiple bruises over her arms and bandaged left lower extremity. On neurologic exam, she is fully awake, alert, and oriented. Speech is clear without dysarthria or aphasia. Pupils were equal, round, and reactive from 3 to 2.5 mm bilaterally. Visions are full without nystagmus. On visual field testing, she continues to have a left dense homonymous hemianopia. When presented with stroke cards, she only describes the right half of pictures and reads the right half of words on the page. Her face is symmetric and full strength. Hearing is intact to voice. Shoulder shrug is symmetric. On motor testing, she has full strength proximally in her upper extremities. No clear focal weakness in the lower extremities. Sensation is intact to light touch in the upper and lower extremities. There is no ataxia on [id number] testing. She was not ambulated. DIAGNOSTIC STUDIES/LAB DATA: Her brain MRI showed a large area of infarct in the right occipital region in the area of the right [employer]VIS[employer]. Head and neck MRA was notable for occlusion of the right [employer] just distal to the bifurcation off the basilar artery. The right vertebral artery appears diminutive, which is chronic. Her known intracranial aneurysms are stable with the largest being the Acom measured at approximately 0.7 cm. Her neck MRA was somewhat limited because of the lack of contrast, but there is no obvious internal carotid stenosis. She had a repeat transthoracic echocardiogram, which demonstrated an EF of 50% to 55% and indicates there is no PFO, but she has had a TTE in the past as an outpatient, which did show PFO as well as an atrial septal aneurysm. Lipid profile shows triglycerides of 133, total cholesterol 148, LDL 96, HCL 25. Her hemoglobin A1c is 5.1. 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 This could be cardioembolic in nature, but given the presence of her previously documented PFO, it also could be secondary to a paradoxical embolus. I will recheck lower extremity Doppler' s. She is not on a statin and there is no mention of her being allergic or intolerant to statins. Given her lipid profile, she should be treated with a statin and I will speak with the hospitalist service about adding one. Though her stroke appears to be embolic in nature, consideration of anticoagulation would be very complicated in her given the presence of known intracranial aneurysms in the setting of her polycystic kidney disease and her overall poor health status with her increased fall risk as well. As an outpatient, we had discussed this when she had strokes 2 years ago and I had wanted her to have a reevaluation with the endovascular neurosurgeon in [place] to weigh in on this question, but unfortunately she was never able to go for that evaluation. If there is compelling evidence either on telemetry or with her Dopplers of reason to anticoagulate, we may need to consider and discuss this further. For now, she will continue her current antiplatelet regimen. [id number]/[facility] #: [id number] [facility] CENTERRenee
--- NOTE | 2017-12-01 02:27 | PN ---
Progress Note - Progress Note Date of Service: 11/30/17 Note: Patient discharged earlier this evening, had been advised to stay in hospital on swing status, wait for subacute rehab bed. Patient went home with son, was unable to get into house, returned to ED. She now agrees to stay for swing stay and go to subacute rehab. Patient admitted to swing status.
[2017-12-01] MEDS ORDERED: Methadone TAB* 5 MG PO PRN (02:43)
[2017-12-01] MEDS ORDERED: Etanercept SYR (NF) 50 MG/ML 0.98 ML SUBCUT SCH (03:00)
--- NOTE | 2017-12-01 03:31 | ED ---
Ayan Morales SooYoung, scribed for Alva Fishman MD on 11/30/17 at 2205 . Complex/Multi-Sys Presentation - HPI Summary HPI Summary: A 57 y/o F presents to ED due to weakness onset [employer]AMP [employer]. Pt is asleep at bedside. 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 Three days ago, in [facility], pt had a stroke. Son took pt home, but brought her to [facility] because he felt it was not safe for her to be in her home due to LE weakness. At discharge today at 1700, pt was given 2 Lorazepams. Pt is on Day 3 of Methadone, which she receives for chronic pain. Pt has renal failure and receives peritoneal dialysis every night at home. Previously, pt had a fall and was in rehab for 1.5 months at [facility], which she finished approximately 5 weeks ago. Son states pt's leg is healing and she goes to the wound clinic, and pt receives PT from [facility] at home. He states that pt is lucid at one moment but then does not make sense the next moment. PMHx: chronic pain; polycystic kidney dz; renal failure; 4 brain aneurysms; CVA. - History Of Current Complaint Chief Complaint: EDWeakness Time Seen by Provider: 11/30/17 21:57 Hx Obtained From: Family/Animal Rides Manager - son Onset/Duration: Still Present Timing: Constant Character: Unable To Describe - asleep at bedside Associated Signs And Symptoms: Positive: Weakness, Other - pt asleep at bedside Related History: Recent Hospitalization - Allergies/Home Medications Allergies/Adverse Reactions: Allergies Allergy/AdvReac Type Severity Reaction Status Date / Time Adhesive Tape Allergy Hives Verified 11/30/17 20:58 codeine Allergy GI Upset Verified 11/30/17 20:58 PMH/Surg Hx/FS Hx/Imm Hx Previously Healthy: No Endocrine/Hematology History: Reports: Hx Anemia - gets epogen shot Denies: Hx Blood Disorders, Hx Blood Transfusions, Hx Bone Marrow Disease, Hx Diabetes, Hx Systemic Lupus Erythematosus, Hx Thyroid Disease, Hx Unexplained Bleeding Cardiovascular History: Reports: Hx Aneurysm, Hx Cardiomegaly, Hx Congestive Heart Failure, Hx Coronary Artery Disease, Hx Hypercholesterolemia, Hx Hypertension, Other Cardiovascular Problems/Disorders - CAD, PR Denies: Hx Pacemaker/ICD, Hx Peripheral Vascular Disease Respiratory History: Reports: Hx Pleural Effusion Denies: Hx Chronic Obstructive Pulmonary Disease (COPD) - PT DENIES, Hx Pneumonia, Hx Pulmonary Edema, Hx Pulmonary Embolism, Hx Seasonal Allergies, Hx Sleep Apnea GI History: Reports: Hx Diverticulosis, Hx Gastroesophageal Reflux Disease, Hx Ulcer History: Reports: Hx Chronic Renal Failure, Hx Dialysis - PD, Hx Kidney Infection, Hx Renal Disease - ESRD, polycystic kidney disease, Other Problems /Disorders - polycystic kidney Denies: Hx Kidney Stones Musculoskeletal History: Reports: Hx Arthritis, Hx Rheumatoid Arthritis, Hx Back Problems, Other Musculoskeletal History - LEFT HIP FX Denies: Hx Osteoporosis Sensory History: Reports: Hx Contacts or Glasses - reading Denies: Hx Cataracts, Hx Eye Injury, Hx Eye Prosthesis, Hx Glaucoma, Hx Legally Blind, Hx Macular Degeneration, Hx Vision Problem, Hx Deafness, Hx Hearing Aid, Hx Hearing Problem Opthamlomology History: Reports: Hx Contacts or Glasses - reading Denies: Hx Cataracts, Hx Eye Injury, Hx Eye Prosthesis, Hx Glaucoma, Hx Legally Blind, Hx Macular Degeneration, Hx Vision Problem Neurological History: Reports: Hx CVA, Other Neuro Impairments/Disorders - brain aneurism x5 per pt Denies: Hx Dementia, Hx Developmental Delay, Hx Headaches, Hx Migraine, Hx Nerve Disease, Hx Seizures Psychiatric History: Reports: Hx Anxiety, Hx Depression Denies: Hx Panic Disorder, Hx Post Traumatic Stress Disorder, Other Psychiatric Issues/Disorders - Cancer History Hx Chemotherapy: No - Surgical History Surgery Procedure, Year, and Place: dialysis port x2 Hx Anesthesia Reactions: No - Immunization History Date of Tetanus Vaccine: Unknown Infectious Disease History: No Infectious Disease History: Denies: Hx Tuberculosis, Traveled Outside the [place] in Last 30 Days - Family History Known Family History: Negative: Cardiac Disease, Hypertension, Diabetes - Social History Occupation: Retired Lives: With Family Alcohol Use: None Hx Substance Use: No Substance Use Type: Reports: None Hx Tobacco Use: Yes Smoking Status (MU): Former Smoker Type: Cigarettes Amount Used/How Often: not much, only while in college Have You Smoked in the Last Year: No Review of Systems Negative: Fever Positive: Weakness All Other Systems Reviewed And Are Negative: No - Comments Additional Review of Systems Comments: LEVEL 5 CAVEAT: PT ASLEEP AT BEDSIDE. Physical Exam - Summary Physical Exam Summary: GENERAL: Patient is a well-developed and nourished F who is lying comfortable in the stretcher. Pt is very sleepy. Patient is not in any acute respiratory distress. HEAD AND FACE: Normocephalic EYES: PERRLA, EOMI x 2. EARS: Hearing grossly intact. MOUTH: Oropharynx within normal limits. NECK: Supple, trachea is midline, no adenopathy, no JVD, no carotid bruit. CHEST: Symmetric, no tenderness at palpation LUNGS: Clear to auscultation bilaterally. No wheezing or crackles. CVS: Regular rate and rhythm, S1 and S2 present, no murmurs or gallops appreciated. ABDOMEN: Distended but non-tender. Bowel sounds are normal. No abdominal abnormal pulsations. EXTREMITIES: Full ROM in all major joints, no edema, no cyanosis or clubbing. NEURO: Alert and oriented x 3. No acute neurological deficits. Speech is normal and follows commands. SKIN: Dry and warm Triage Information Reviewed: Yes Vital Signs On Initial Exam: Initial Vitals Temp Pulse Resp BP Pulse Ox 98.3 F 60 16 128/71 94 11/30/17 20:54 11/30/17 20:54 11/30/17 20:54 11/30/17 20:54 11/30/17 20:54 Vital Signs Reviewed: Yes Diagnostics - Vital Signs Vital Signs Temp Pulse Resp BP Pulse Ox 11/30/17 20:54 98.3 F 60 16 128/71 94 - Laboratory Lab Statement: Any lab studies that have been ordered have been reviewed, and results considered in the medical decision making process. 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 Pt is asleep at bedside. 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 Three days ago, in [facility], pt had a stroke. Son took pt home, but brought her to [facility] because he felt it was not safe for her to be in her home due to LE weakness. At discharge today at 1700, pt was given 2 Lorazepams. Pt is on Day 3 of Methadone, which she receives for chronic pain. Pt has renal failure and receives peritoneal dialysis every night at home. Previously, pt had a fall and was in rehab for 1.5 months at [facility], which she finished approximately 5 weeks ago. Son states pt' s leg is healing and she goes to the wound clinic, and pt receives PT from [facility] at home. He states that pt is lucid at one moment but then does not make sense the next moment. PMHx: chronic pain; polycystic kidney dz; renal failure; 4 brain aneurysms; CVA. Pt seen and evaluated at bedside by hospitalist with plans for placement. - Diagnoses Provider Diagnoses: Increased weakness when ambulating - Physician Notifications Discussed Care Of Patient With: Richie Chavis - hospitalist Time Discussed With Above Provider: 22:15 Instructed by Provider To: Other - Will look into a social consult and call back. Discharge - Sign-Out/Discharge Documenting (check all that apply): Discharge/Admit/Transfer - admit - Discharge Plan Condition: Stable Disposition: ADMITTED TO [facility] Consult Consult: Consult with Dr. Chavis at 2330. Will admit pt. The documentation as recorded by the Ayan woosd SooYoung accurately reflects the service I personally performed and the decisions made by me, Alva Fishman MD.
[2017-12-01] MEDS: Aliskiren TAB* 300 MG PO SCH (09:28)
[2017-12-01] MEDS: Calcitriol CAP* 0.25 MCG PO SCH (09:28)
[2017-12-01] MEDS: Carvedilol TAB* 25 MG PO SCH ×2 (09:29→22:23)
[2017-12-01] MEDS: Naproxen TAB* 250 MG PO SCH ×2 (09:29→22:22)
[2017-12-01] MEDS: Clopidogrel TAB* 75 MG PO SCH (09:29)
[2017-12-01] MEDS: Sertraline* 50 MG TAB PO SCH (09:29)
[2017-12-01] MEDS: Aspirin EC TAB* 81 MG TAB.EC PO SCH (09:30)
[2017-12-01] MEDS: CMCS: Pantoprazole TAB (NF) 40 MG TAB PO SCH (09:30)
[2017-12-01] MEDS: Mupirocin 2% OINT* TUBE TOPICAL SCH (09:34)
[2017-12-01 11:07] LABS: ABS Basophils 0 10^3/ul (0-0.2); ABS Eosinophils 0.3 10^3/ul (0-0.6); ABS Lymphocytes 1.1 10^3/ul (1.0-4.8); ABS Monocytes 0.5 10^3/ul (0-0.8); ABS Neutrophils 5.3 10^3/ul (1.5-7.7); ABS Nucleated RBC 0 10^3/ul; Hematocrit 29 % (35-47); Hemoglobin 9.3 g/dl (12.0-16.0); Lymphocyte % 15.8 % (25-47); Mean Corpuscular HGB Conc 33 g/dl (31-36); Mean Corpuscular Hemoglobin 30 pg (27-31); Mean Corpuscular Volume 91 fL (80-97); Mean Platelet Volume 7.2 um3 (7.4-10.4); Nucleated Red Blood Cells % 0; Platelet Count 308 10^3/ul (150-450); Red Blood Count 3.15 10^6/ul (4.00-5.40); Red Cell Distribution Width 16 % (10.5-15); White Blood Count 7.2 10^3/ul (3.5-10.8)
[2017-12-01 11:14] LABS: EGFR Non-African American 6.7 (>60)
[2017-12-01] MEDS ORDERED: Magnesium Sulfate 1 GM IV* 1 GM/100 ML BAG IV ONE (14:45)
--- NOTE | 2017-12-01 14:47 | PN ---
Subjective Date of Service: 12/01/17 Interval History: Patient states that after she was discharged yesterday she went home and was unable to get into her house even with the help of her son. Patient states that she has been feeling weak and that this was not an exacerbation of her weakness. Patient denies any new symptoms since leaving the hospital including F /C, N/V, CP, SOB, dysuria, or other pain. Complains of overall weakness with no focality of other neurological deficits and of chronic abdominal pain which is at baseline. Family History: Unchanged from Admission Social History: Unchanged from Admission Past Medical History: Unchanged from Admission Objective Active Medications: Acetaminophen (Tylenol Tab*) 650 mg PO Q4H PRN PRN Reason: FEVER/PAIN Hydrocodone Bitart/Acetaminophen ([place] 5-325 Tab*) 1 tab PO Q6H PRN PRN Reason: PAIN Aliskiren (Tekturna Tab*) 300 mg PO DAILY [facility] Last Admin: 12/01/17 09:28 Dose: 300 mg Aspirin (Aspirin Ec Tab*) 81 mg PO DAILY [facility] Last Admin: 12/01/17 09:30 Dose: 81 mg Atorvastatin Calcium (Lipitor*) 20 mg PO 2100 [facility] Calcitriol (Rocaltrol Cap*) 0.25 mcg PO DAILY [facility] Last Admin: 12/01/17 09:28 Dose: 0.25 mcg Carvedilol (Coreg Tab*) 25 mg PO BID [facility] Last Admin: 12/01/17 09:29 Dose: 25 mg Clopidogrel Bisulfate (Plavix Tab*) 75 mg PO DAILY [facility] Last Admin: 12/01/17 09:29 Dose: 75 mg Clotrimazole (Mycelex Jose J*) 10 mg PO FIVE TIMES DAILY [facility] Etanercept (Enbrel (Nf)) 25 mg SUBCUT Q7D [facility] Lorazepam (Ativan Tab(*)) 1 mg PO Q6HR PRN PRN Reason: PAIN Methadone HCl (Dolophine Tab*) 5 mg PO BID PRN PRN Reason: PAIN Mupirocin (Bactroban 2 % Oint*) 1 applic TOPICAL DAILY [facility] Last Admin: 12/01/17 09:34 Dose: 1 oint Naproxen (Naprosyn Tab*) 500 mg PO BID [facility] Last Admin: 12/01/17 09:29 Dose: 500 mg Pantoprazole Sodium (Protonix Tab (Nf)) 40 mg PO DAILY [facility] Last Admin: 12/01/17 09:30 Dose: 40 mg Sertraline HCl (Zoloft*) 50 mg PO DAILY [facility] Last Admin: 12/01/17 09:29 Dose: 50 mg Vital Signs - 8 hr 12/01/17 12/01/17 07:29 09:01 Pulse Rate 63 Respiratory 14 Rate Blood Pressure 132/70 (mmHg) O2 Sat by Pulse 100 99 Oximetry Oxygen Devices in Use Now: Nasal Cannula Appearance: Patient is a 57yo sidhu hued female who appears much older than stated age and is sitting in the bed in NAD. Eyes: No Scleral Icterus, PERRLA Ears/Nose/Mouth/Throat: NL Teeth, Lips, Gums, Mucous Membranes Moist, - - Thrush Neck: NL Appearance and Movements; NL JVP, Trachea Midline Respiratory: Symmetrical Chest Expansion and Respiratory Effort, Clear to Auscultation Cardiovascular: NL Sounds; No Murmurs; No JVD, RRR, No Edema Abdominal: No Hepatosplenomegaly, - - Diffusely tender to palpation without rebound or guarding. Extremities: No Edema, No Clubbing, Cyanosis Skin: No Nodules or Sclerosis, - - Patient has a sidhu tinge to skin. Neurological: Alert and Oriented x 3, NL Sensation, NL Muscle Strength and Tone , - - CN II-XII intact. 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 - Patient Problems (1) Physical deconditioning Current Visit: Yes Status: Acute Code(s): R53.81 - OTHER MALAISE SNOMED Code(s): 06781092355642 Comment: General, without focality. Is agreeable to STR at this time. Swing Bed. PT/OT. (2) End stage renal failure on dialysis Current Visit: No Status: Acute Code(s): N18.6 - END STAGE RENAL DISEASE; Z99.2 - DEPENDENCE ON RENAL DIALYSIS SNOMED Code(s): 341933036 Comment: Continue Peritoneal Dialysis. (3) Anemia Current Visit: No Status: Acute Code(s): D64.9 - ANEMIA, UNSPECIFIED SNOMED Code(s): 553480660 Comment: Chronic and likely due to AOCD/Renal Failure (4) Anxiety Current Visit: No Status: Acute Priority: High Onset Date: 01/26/14 Code (s): F41.9 - ANXIETY DISORDER, UNSPECIFIED SNOMED Code(s): 36632177 Comment: Continue sertraline daily Ativan PRN, Currently Euthymic. (5) CVA (cerebral vascular accident) Current Visit: No Status: Acute Code(s): I63.9 - CEREBRAL INFARCTION, UNSPECIFIED SNOMED Code(s): 776326460 Comment: During recent hospitalization. Continue duel anti-platelet therapy for 30 days from 11/29 (6) COPD (chronic obstructive pulmonary disease) Current Visit: No Status: Chronic Code(s): J44.9 - CHRONIC OBSTRUCTIVE PULMONARY DISEASE, UNSPECIFIED SNOMED Code(s): 78570376 Comment: With Chronic hypoxic respiratory failure Continue O2 at 1L NC (7) Inflammatory arthropathy Current Visit: No Status: Acute Code(s): M19.90 - UNSPECIFIED OSTEOARTHRITIS , UNSPECIFIED SITE SNOMED Code(s): 8343331 Comment: Restart enbrel when able. Follow with rheumatology outpatient. (8) HTN (hypertension) Current Visit: No Status: Chronic Code(s): I10 - ESSENTIAL (PRIMARY) HYPERTENSION SNOMED Code(s): 65088452 Comment: Normotensive Continue Tekturna, Coreg (9) Hx of coronary artery disease Current Visit: No Status: Chronic Priority: Medium Code(s): Z86.79 - PERSONAL HISTORY OF OTHER DISEASES OF THE CIRCULATORY SYSTEM SNOMED Code(s): 406743693 Comment: Continue beta-samira. On DAPT (10) Systolic CHF Current Visit: No Status: Chronic Code(s): I50.20 - UNSPECIFIED SYSTOLIC ( CONGESTIVE) HEART FAILURE SNOMED Code(s): 699170902 Comment: Echo shows No Exacerbation, Continue Coreg and Tekturna (11) Full code status Current Visit: No Status: Acute Code(s): Z78.9 - OTHER SPECIFIED HEALTH STATUS SNOMED Code(s): 098766729 (12) DVT prophylaxis Current Visit: No Status: Acute Priority: High Onset Date: 09/08/14 Code (s): YLD1139 - SNOMED Code(s): 991779748 Comment: Heparin SQ to q12 given CKD Status and Disposition: Swing bed pending placement.
[2017-12-01] MEDS: Clotrimazole TROCHE* 10 MG TROCHE PO SCH ×3 (15:31→23:10)
[2017-12-01] MEDS ORDERED: Magnesium Oxide TAB* 400 MG PO ONE (15:39)
[2017-12-01] MEDS: Atorvastatin* 20 MG TAB PO SCH (22:22)
[2017-12-01] MEDS: Heparin VIAL(*) 5000 UNITS/ML VIAL (FIVE THOUSAND) SUBCUT SCH (22:25)
[2017-12-02] MEDS: Clotrimazole TROCHE* 10 MG TROCHE PO SCH ×5 (05:12→20:30)
[2017-12-02] MEDS: Calcitriol CAP* 0.25 MCG PO SCH (08:47)
[2017-12-02] MEDS: Sertraline* 50 MG TAB PO SCH (08:48)
[2017-12-02] MEDS: Carvedilol TAB* 25 MG PO SCH ×2 (08:48→20:29)
[2017-12-02] MEDS: Clopidogrel TAB* 75 MG PO SCH (08:49)
[2017-12-02] MEDS: Naproxen TAB* 250 MG PO SCH ×2 (08:49→20:29)
[2017-12-02] MEDS: CMCS: Pantoprazole TAB (NF) 40 MG TAB PO SCH (08:50)
[2017-12-02] MEDS: Aspirin EC TAB* 81 MG TAB.EC PO SCH (08:50)
[2017-12-02] MEDS: Aliskiren TAB* 300 MG PO SCH (08:50)
[2017-12-02] MEDS: Mupirocin 2% OINT* TUBE TOPICAL SCH ×2 (08:51→10:49)
[2017-12-02] MEDS: Heparin VIAL(*) 5000 UNITS/ML VIAL (FIVE THOUSAND) SUBCUT SCH ×2 (08:51→20:30)
[2017-12-02] MEDS: HYDROcodone/ACETAMIN 5-325 MG* 1 TAB PO PRN (10:47)
[2017-12-02] MEDS: Atorvastatin* 20 MG TAB PO SCH (20:28)
[2017-12-03] MEDS: HYDROcodone/ACETAMIN 5-325 MG* 1 TAB PO PRN ×2 (01:22→10:22)
[2017-12-03] MEDS: Clotrimazole TROCHE* 10 MG TROCHE PO SCH ×5 (06:04→22:41)
[2017-12-03] MEDS: CMCS: Pantoprazole TAB (NF) 40 MG TAB PO SCH (10:21)
[2017-12-03] MEDS: Aspirin EC TAB* 81 MG TAB.EC PO SCH (10:21)
[2017-12-03] MEDS: Calcitriol CAP* 0.25 MCG PO SCH (10:22)
[2017-12-03] MEDS: Carvedilol TAB* 25 MG PO SCH ×2 (10:22→20:51)
[2017-12-03] MEDS: Sertraline* 50 MG TAB PO SCH (10:23)
[2017-12-03] MEDS: Naproxen TAB* 250 MG PO SCH ×2 (10:23→20:43)
[2017-12-03] MEDS: Heparin VIAL(*) 5000 UNITS/ML VIAL (FIVE THOUSAND) SUBCUT SCH ×2 (10:24→20:44)
[2017-12-03] MEDS: Mupirocin 2% OINT* TUBE TOPICAL SCH (10:24)
[2017-12-03] MEDS: Clopidogrel TAB* 75 MG PO SCH (10:24)
[2017-12-03] MEDS: Aliskiren TAB* 300 MG PO SCH (10:25)
[2017-12-03] MEDS ORDERED: Senna TAB PO PRN (10:56)
[2017-12-03] MEDS ORDERED: Docusate CAP* 100 MG PO PRN (10:56)
[2017-12-03] MEDS ORDERED: Heparin DIALYSIS ONLY(*) 1,000 UNITS/ML VIAL DIALYSIS ONE (13:00)
[2017-12-03] MEDS: Atorvastatin* 20 MG TAB PO SCH (20:44)
[2017-12-04] MEDS: LORazepam TAB(*) 1 MG PO PRN (03:34)
[2017-12-04] MEDS: Clotrimazole TROCHE* 10 MG TROCHE PO SCH ×5 (05:06→20:01)
[2017-12-04] MEDS: Naproxen TAB* 250 MG PO SCH ×2 (10:11→19:58)
[2017-12-04] MEDS: Clopidogrel TAB* 75 MG PO SCH (10:11)
[2017-12-04] MEDS: Heparin VIAL(*) 5000 UNITS/ML VIAL (FIVE THOUSAND) SUBCUT SCH ×2 (10:12→19:59)
[2017-12-04] MEDS: Aliskiren TAB* 300 MG PO SCH (10:12)
[2017-12-04] MEDS: Calcitriol CAP* 0.25 MCG PO SCH (10:12)
[2017-12-04] MEDS: Aspirin EC TAB* 81 MG TAB.EC PO SCH (10:12)
[2017-12-04] MEDS: Carvedilol TAB* 25 MG PO SCH ×2 (10:12→19:59)
[2017-12-04] MEDS: Sertraline* 50 MG TAB PO SCH (10:12)
[2017-12-04] MEDS: CMCS: Pantoprazole TAB (NF) 40 MG TAB PO SCH (10:13)
[2017-12-04] MEDS: Mupirocin 2% OINT* TUBE TOPICAL SCH (10:13)
--- NOTE | 2017-12-04 15:40 | PN ---
Hospitalist Progress Note Date of Service: 12/04/17 Discussed at length with Patient and Son Alex the limited options therapeutically for the patient as well as her limited life expectancy in the setting of ESRD. Patient and son state that they are not interested in a palliative approach to care at this time and would like the main goal of her care to be restoring functional capacity so she can return home to be as independent as possible.
[2017-12-04] MEDS: Atorvastatin* 20 MG TAB PO SCH (19:59)
[2017-12-05] MEDS: Clotrimazole TROCHE* 10 MG TROCHE PO SCH (05:22)
[2017-12-05] MEDS: Calcitriol CAP* 0.25 MCG PO SCH (09:04)
[2017-12-05] MEDS: Sertraline* 50 MG TAB PO SCH (09:04)
[2017-12-05] MEDS: CMCS: Pantoprazole TAB (NF) 40 MG TAB PO SCH (09:04)
[2017-12-05] MEDS: Clopidogrel TAB* 75 MG PO SCH (09:04)
[2017-12-05] MEDS: Naproxen TAB* 250 MG PO SCH (09:04)
[2017-12-05] MEDS: Carvedilol TAB* 25 MG PO SCH ×2 (09:04→20:19)
[2017-12-05] MEDS: Aspirin EC TAB* 81 MG TAB.EC PO SCH (09:04)
[2017-12-05] MEDS: Heparin VIAL(*) 5000 UNITS/ML VIAL (FIVE THOUSAND) SUBCUT SCH ×2 (09:05→20:19)
[2017-12-05] MEDS: Aliskiren TAB* 300 MG PO SCH (09:05)
[2017-12-05] MEDS: Mupirocin 2% OINT* TUBE TOPICAL SCH (09:15)
[2017-12-05] MEDS: HYDROcodone/ACETAMIN 5-325 MG* 1 TAB PO PRN (11:05)
[2017-12-05] MEDS ORDERED: Multivitamins/Minerals TAB PO SCH (13:15)
[2017-12-05] MEDS ORDERED: Folic Acid TAB* 1 MG PO SCH (14:00)
[2017-12-05] MEDS ORDERED: Thiamine TAB* 100 MG TAB PO SCH (14:00)
[2017-12-05] MEDS ORDERED: LORazepam TAB(*) 1 MG PO SCH (14:00)
[2017-12-05] MEDS ORDERED: Heparin DIALYSIS ONLY(*) 1,000 UNITS/ML VIAL DIALYSIS ONE (16:00)
[2017-12-05] MEDS ORDERED: Heparin(*) 1000 UNIT/ML 10 ML VIAL CATH LAB IV ONE (17:00)
[2017-12-05] MEDS: Atorvastatin* 20 MG TAB PO SCH (20:18)
[2017-12-05] MEDS: LORazepam TAB(*) 1 MG PO PRN (20:19)
[2017-12-06] MEDS: Ondansetron ODT TAB* 4 MG SL PRN ×2 (01:29→22:22)
[2017-12-06] MEDS: HYDROcodone/ACETAMIN 5-325 MG* 1 TAB PO PRN (03:35)
[2017-12-06] MEDS: CMCS: Pantoprazole TAB (NF) 40 MG TAB PO SCH (09:37)
[2017-12-06] MEDS: Aspirin EC TAB* 81 MG TAB.EC PO SCH (09:37)
[2017-12-06] MEDS: Heparin VIAL(*) 5000 UNITS/ML VIAL (FIVE THOUSAND) SUBCUT SCH ×2 (09:37→21:39)
[2017-12-06] MEDS: Carvedilol TAB* 25 MG PO SCH ×2 (09:37→21:39)
[2017-12-06] MEDS: Sertraline* 50 MG TAB PO SCH (09:37)
[2017-12-06] MEDS: Calcitriol CAP* 0.25 MCG PO SCH (09:37)
[2017-12-06] MEDS: Clopidogrel TAB* 75 MG PO SCH (09:37)
[2017-12-06] MEDS: Aliskiren TAB* 300 MG PO SCH (09:37)
[2017-12-06] MEDS: Mupirocin 2% OINT* TUBE TOPICAL SCH (09:38)
--- NOTE | 2017-12-06 14:19 | PN ---
Subjective Date of Service: 12/06/17 Interval History: Patient feeling much better today. Decreased abdominal pain. Able to transfer to with 1 assist. Optimistic about possible placement. Denies CP, SOB, N/V, F/C , diarrhea, or other pain. Family History: Unchanged from Admission Social History: Unchanged from Admission Past Medical History: Unchanged from Admission Objective Active Medications: Acetaminophen (Tylenol Tab*) 650 mg PO Q4H PRN PRN Reason: FEVER/PAIN Hydrocodone Bitart/Acetaminophen ([place] 5-325 Tab*) 1 tab PO Q6H PRN PRN Reason: PAIN Last Admin: 12/06/17 03:35 Dose: 1 tab Aliskiren (Tekturna Tab*) 300 mg PO DAILY [facility] Last Admin: 12/06/17 09:37 Dose: 300 mg Aspirin (Aspirin Ec Tab*) 81 mg PO DAILY [facility] Last Admin: 12/06/17 09:37 Dose: 81 mg Atorvastatin Calcium (Lipitor*) 20 mg PO 2100 [facility] Last Admin: 12/05/17 20:18 Dose: 20 mg Calcitriol (Rocaltrol Cap*) 0.25 mcg PO DAILY [facility] Last Admin: 12/06/17 09:37 Dose: 0.25 mcg Carvedilol (Coreg Tab*) 25 mg PO BID [facility] Last Admin: 12/06/17 09:37 Dose: 25 mg Clopidogrel Bisulfate (Plavix Tab*) 75 mg PO DAILY [facility] Last Admin: 12/06/17 09:37 Dose: 75 mg Docusate Sodium (Colace Cap*) 200 mg PO DAILY PRN PRN Reason: CONSTIPATION Heparin Sodium (Porcine) (Heparin Vial(*)) 5,000 units SUBCUT Q12HR [facility] Last Admin: 12/06/17 09:37 Dose: 5,000 units Lorazepam (Ativan Tab(*)) 1 mg PO Q6HR PRN PRN Reason: PAIN Last Admin: 12/05/17 20:19 Dose: 1 mg Methadone HCl (Dolophine Tab*) 5 mg PO BID PRN PRN Reason: PAIN Mupirocin (Bactroban 2 % Oint*) 1 applic TOPICAL DAILY [facility] Last Admin: 12/06/17 09:38 Dose: Not Given Ondansetron HCl (Zofran Odt Tab*) 4 mg SL Q6H PRN PRN Reason: NAUSEA/VOMITING Last Admin: 12/06/17 01:29 Dose: 4 mg Pantoprazole Sodium (Protonix Tab (Nf)) 40 mg PO DAILY [facility] Last Admin: 12/06/17 09:37 Dose: 40 mg Senna (Senokot Tab*) 1 tab PO DAILY PRN PRN Reason: CONSTIPATION Sertraline HCl (Zoloft*) 50 mg PO DAILY [facility] Last Admin: 12/06/17 09:37 Dose: 50 mg Vital Signs - 8 hr 12/06/17 12/06/17 12/06/17 07:35 08:00 10:59 Temperature 98.2 F 98.8 F Pulse Rate 74 68 Respiratory 14 18 20 Rate Blood Pressure 112/53 89/55 (mmHg) O2 Sat by Pulse 96 99 Oximetry 12/06/17 11:06 Temperature Pulse Rate Respiratory Rate Blood Pressure 92/55 (mmHg) O2 Sat by Pulse Oximetry Oxygen Devices in Use Now: Nasal Cannula Appearance: Patient is a 57yo female who appears much older than stated age and is sitting in the bed in [facility]. Eyes: No Scleral Icterus, PERRLA Ears/Nose/Mouth/Throat: NL Teeth, Lips, Gums, Clear Oropharnyx, Mucous Membranes Moist Neck: NL Appearance and Movements; NL JVP, Trachea Midline Respiratory: Symmetrical Chest Expansion and Respiratory Effort, Clear to Auscultation Cardiovascular: NL Sounds; No Murmurs; No JVD, RRR, No Edema Abdominal: NL Sounds; No Tenderness; No Distention, No Hepatosplenomegaly Lymphatic: No Cervical Adenopathy Extremities: No Edema, No Clubbing, Cyanosis Skin: No Nodules or Sclerosis, - - Ashen. Large ulcer on left pelaez. Neurological: Alert and Oriented x 3, NL Sensation, - - Left sided homonyous hemianopsia. No other focal deficits. 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 - Patient Problems (1) Physical deconditioning Current Visit: Yes Status: Acute Code(s): R53.81 - OTHER MALAISE SNOMED Code(s): 78048824866082 Comment: General, without focality. Is agreeable to STR at this time. Swing Bed. PT/OT. Will need placement at a facility with PD capability. (2) End stage renal failure on dialysis Current Visit: No Status: Acute Code(s): N18.6 - END STAGE RENAL DISEASE; Z99.2 - DEPENDENCE ON RENAL DIALYSIS SNOMED Code(s): 139984220 Comment: Continue Peritoneal Dialysis. (3) Anemia Current Visit: No Status: Acute Code(s): D64.9 - ANEMIA, UNSPECIFIED SNOMED Code(s): 426270639 Comment: Chronic and likely due to AOCD/Renal Failure (4) Anxiety Current Visit: No Status: Acute Priority: High Onset Date: 01/26/14 Code (s): F41.9 - ANXIETY DISORDER, UNSPECIFIED SNOMED Code(s): 16288236 Comment: Continue sertraline daily Ativan PRN, Currently Euthymic. (5) CVA (cerebral vascular accident) Current Visit: No Status: Acute Code(s): I63.9 - CEREBRAL INFARCTION, UNSPECIFIED SNOMED Code(s): 538046513 Comment: During recent hospitalization. Continue duel anti-platelet therapy for 30 days from 11/29 (6) COPD (chronic obstructive pulmonary disease) Current Visit: No Status: Chronic Code(s): J44.9 - CHRONIC OBSTRUCTIVE PULMONARY DISEASE, UNSPECIFIED SNOMED Code(s): 22961377 Comment: With Chronic hypoxic respiratory failure Continue O2 at 1L NC (7) Inflammatory arthropathy Current Visit: No Status: Acute Code(s): M19.90 - UNSPECIFIED OSTEOARTHRITIS , UNSPECIFIED SITE SNOMED Code(s): 8810720 Comment: Restart enbrel when able. Follow with rheumatology outpatient. (8) HTN (hypertension) Current Visit: No Status: Chronic Code(s): I10 - ESSENTIAL (PRIMARY) HYPERTENSION SNOMED Code(s): 68651406 Comment: Normotensive Continue Tekturna, Coreg (9) Hx of coronary artery disease Current Visit: No Status: Chronic Priority: Medium Code(s): Z86.79 - PERSONAL HISTORY OF OTHER DISEASES OF THE CIRCULATORY SYSTEM SNOMED Code(s): 241354439 Comment: Continue beta-samira. On DAPT (10) Systolic CHF Current Visit: No Status: Chronic Code(s): I50.20 - UNSPECIFIED SYSTOLIC ( CONGESTIVE) HEART FAILURE SNOMED Code(s): 680876592 Comment: Echo shows No Exacerbation, Continue Coreg and Tekturna (11) Full code status Current Visit: No Status: Acute Code(s): Z78.9 - OTHER SPECIFIED HEALTH STATUS SNOMED Code(s): 590854274 (12) DVT prophylaxis Current Visit: No Status: Acute Priority: High Onset Date: 09/08/14 Code (s): WYR3781 - SNOMED Code(s): 445717198 Comment: Heparin SQ to q12 given CKD Status and Disposition: Swing bed pending placement.
[2017-12-06] MEDS: Acetaminophen TAB* 325 MG PO PRN (19:49)
[2017-12-06] MEDS: LORazepam TAB(*) 1 MG PO PRN (20:14)
[2017-12-06] MEDS: Atorvastatin* 20 MG TAB PO SCH (21:39)
[2017-12-07] MEDS: HYDROcodone/ACETAMIN 5-325 MG* 1 TAB PO PRN (02:25)
[2017-12-07] MEDS: Aliskiren TAB* 300 MG PO SCH (10:42)
[2017-12-07] MEDS: LORazepam TAB(*) 1 MG PO PRN ×2 (10:43→23:07)
[2017-12-07] MEDS: Aspirin EC TAB* 81 MG TAB.EC PO SCH (10:43)
[2017-12-07] MEDS: Sertraline* 50 MG TAB PO SCH (10:43)
[2017-12-07] MEDS: Carvedilol TAB* 25 MG PO SCH ×2 (10:43→22:51)
[2017-12-07] MEDS: Clopidogrel TAB* 75 MG PO SCH (10:43)
[2017-12-07] MEDS: Calcitriol CAP* 0.25 MCG PO SCH (10:44)
[2017-12-07] MEDS: Mupirocin 2% OINT* TUBE TOPICAL SCH (10:44)
[2017-12-07] MEDS: Heparin VIAL(*) 5000 UNITS/ML VIAL (FIVE THOUSAND) SUBCUT SCH ×2 (10:44→22:50)
[2017-12-07] MEDS: CMCS: Pantoprazole TAB (NF) 40 MG TAB PO SCH (10:44)
[2017-12-07] MEDS: Heparin(*) 1000 UNIT/ML 10 ML VIAL CATH LAB IV SCH (14:03)
[2017-12-07] MEDS: Atorvastatin* 20 MG TAB PO SCH (22:51)
[2017-12-08] MEDS: Mupirocin 2% OINT* TUBE TOPICAL SCH (07:23)
[2017-12-08] MEDS: Heparin(*) 1000 UNIT/ML 10 ML VIAL CATH LAB IV SCH (07:23)
[2017-12-08] MEDS: Aliskiren TAB* 300 MG PO SCH (07:44)
[2017-12-08] MEDS: Calcitriol CAP* 0.25 MCG PO SCH (07:44)
[2017-12-08] MEDS: Aspirin EC TAB* 81 MG TAB.EC PO SCH (07:44)
[2017-12-08] MEDS: CMCS: Pantoprazole TAB (NF) 40 MG TAB PO SCH (07:44)
[2017-12-08] MEDS: Clopidogrel TAB* 75 MG PO SCH (07:45)
[2017-12-08] MEDS: Heparin VIAL(*) 5000 UNITS/ML VIAL (FIVE THOUSAND) SUBCUT SCH ×2 (07:45→21:29)
[2017-12-08] MEDS: Carvedilol TAB* 25 MG PO SCH ×2 (07:45→21:29)
[2017-12-08] MEDS: Sertraline* 50 MG TAB PO SCH (07:45)
[2017-12-08] MEDS: LORazepam TAB(*) 1 MG PO PRN (09:14)
[2017-12-08] MEDS: HYDROcodone/ACETAMIN 5-325 MG* 1 TAB PO PRN (12:40)
[2017-12-08] MEDS: Acetaminophen TAB* 325 MG PO PRN (19:31)
[2017-12-08] MEDS: Atorvastatin* 20 MG TAB PO SCH (21:29)
[2017-12-09] MEDS: Ondansetron ODT TAB* 4 MG SL PRN (01:03)
[2017-12-09] MEDS: LORazepam TAB(*) 1 MG PO PRN ×2 (01:42→21:53)
[2017-12-09] MEDS: HYDROcodone/ACETAMIN 5-325 MG* 1 TAB PO PRN (06:35)
[2017-12-09] MEDS: Mupirocin 2% OINT* TUBE TOPICAL SCH (07:29)
[2017-12-09] MEDS: Heparin(*) 1000 UNIT/ML 10 ML VIAL CATH LAB IV SCH (07:29)
[2017-12-09] MEDS: Carvedilol TAB* 25 MG PO SCH ×2 (07:44→20:59)
[2017-12-09] MEDS: Sertraline* 50 MG TAB PO SCH (07:44)
[2017-12-09] MEDS: Clopidogrel TAB* 75 MG PO SCH (07:44)
[2017-12-09] MEDS: Aspirin EC TAB* 81 MG TAB.EC PO SCH (07:44)
[2017-12-09] MEDS: CMCS: Pantoprazole TAB (NF) 40 MG TAB PO SCH (07:44)
[2017-12-09] MEDS: Heparin VIAL(*) 5000 UNITS/ML VIAL (FIVE THOUSAND) SUBCUT SCH ×2 (07:44→20:59)
[2017-12-09] MEDS: Aliskiren TAB* 300 MG PO SCH (07:44)
[2017-12-09] MEDS: Calcitriol CAP* 0.25 MCG PO SCH (07:44)
--- NOTE | 2017-12-09 10:21 | PN ---
Subjective Date of Service: 12/09/17 Interval History: Patient reports she is "doing okay today", reports mild SOB, not different from other days. She feels fluid overloaded and states her PD appears to not be working. She agrees to hemodialysis catheter placement. Family History: Unchanged from Admission Social History: Unchanged from Admission Past Medical History: Unchanged from Admission Objective Active Medications: Acetaminophen (Tylenol Tab*) 650 mg PO Q4H PRN PRN Reason: FEVER/PAIN Last Admin: 12/08/17 19:31 Dose: 650 mg Hydrocodone Bitart/Acetaminophen ([place] 5-325 Tab*) 1 tab PO Q6H PRN PRN Reason: PAIN Last Admin: 12/09/17 06:35 Dose: 1 tab [place] (Tekturna Tab*) 300 mg PO DAILY [facility] Last Admin: 12/09/17 07:44 Dose: 300 mg Aspirin (Aspirin Ec Tab*) 81 mg PO DAILY [facility] Last Admin: 12/09/17 07:44 Dose: 81 mg Atorvastatin Calcium (Lipitor*) 20 mg PO 2100 [facility] Last Admin: 12/08/17 21:29 Dose: 20 mg Calcitriol (Rocaltrol Cap*) 0.25 mcg PO DAILY [facility] Last Admin: 12/09/17 07:44 Dose: 0.25 mcg Carvedilol (Coreg Tab*) 25 mg PO BID [facility] Last Admin: 12/09/17 07:44 Dose: 25 mg Clopidogrel Bisulfate (Plavix Tab*) 75 mg PO DAILY [facility] Last Admin: 12/09/17 07:44 Dose: 75 mg Docusate Sodium (Colace Cap*) 200 mg PO DAILY PRN PRN Reason: CONSTIPATION Heparin Sodium (Porcine) (Heparin Vial(*)) 5,000 units SUBCUT Q12HR [facility] Last Admin: 12/09/17 07:44 Dose: 5,000 units Heparin Sodium (Porcine) (Heparin(*)) 0 unit IV DAILY [facility] Last Admin: 12/09/17 07:29 Dose: Not Given Lorazepam (Ativan Tab(*)) 1 mg PO Q6H PRN PRN Reason: ANXIETY Last Admin: 12/09/17 01:42 Dose: 1 mg Mupirocin (Bactroban 2 % Oint*) 1 applic TOPICAL DAILY [facility] Last Admin: 12/09/17 07:29 Dose: Not Given Ondansetron HCl (Zofran Odt Tab*) 4 mg SL Q6H PRN PRN Reason: NAUSEA/VOMITING Last Admin: 12/09/17 01:03 Dose: 4 mg Pantoprazole Sodium (Protonix Tab (Nf)) 40 mg PO DAILY [facility] Last Admin: 12/09/17 07:44 Dose: 40 mg Senna (Senokot Tab*) 1 tab PO DAILY PRN PRN Reason: CONSTIPATION Sertraline HCl (Zoloft*) 50 mg PO DAILY [facility] Last Admin: 12/09/17 07:44 Dose: 50 mg Vital Signs - 8 hr 12/09/17 12/09/17 12/09/17 04:47 06:35 07:21 Temperature 97.8 F Pulse Rate 68 Respiratory 17 16 16 Rate Blood Pressure 117/71 (mmHg) O2 Sat by Pulse 97 Oximetry 12/09/17 12/09/17 08:00 09:27 Temperature Pulse Rate Respiratory 16 16 Rate Blood Pressure (mmHg) O2 Sat by Pulse Oximetry Oxygen Devices in Use Now: Nasal Cannula Appearance: chronically ill female sitting up in a chair in NAD. A+O x3 Neck: NL Appearance and Movements; NL JVP Respiratory: Symmetrical Chest Expansion and Respiratory Effort, - - mild crackles to lower bases bilaterally Abdominal: NL Sounds; No Tenderness; No Distention, - - PD cath intact - no noted erythema or drainage. Extremities: - - 2+ B/L extremity edema - upper extremities lower aspect of arms are edematous. 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 - Patient Problems (1) ESRD (end stage renal disease) Comment: - Hx of polycystic kidney disease. - PD not effectively dialyzing pt, per patient she is retaining fluid. Some mild SOB. - Hemodialysis tunneled cuff catheter to be placed by surgery - preference today or tomorrow so she can have hemodialysis wed. Patient agrees with plan. Surgery to consult. Will send labs including INR, PTT. (2) Physical deconditioning Comment: General, without focality. Is agreeable to STR at this time. Swing Bed. PT/OT. Will need placement (3) CVA (cerebral vascular accident) Comment: Previous recent hospitalization. Possible cardioembolic, noted PFO in past. Neurology discussed anticoagulation, however she is high risk d/t falls, and complicated d/t known intracranial aneurysms, previously she was recommended to f/u with an endovascular neurosurgeon which she failed to do. Recommendation last hospitalizations was if there was compelling evidence to anticoagulate such as dopplers or noted afib on tele it may need to be further considered. Dopplers negative. Continue duel anti-platelet therapy for 30 days from 11/29 (4) COPD (chronic obstructive pulmonary disease) Comment: Stable With Chronic hypoxic respiratory failure Continue O2 at 1L NC (5) Hx of coronary artery disease Comment: Continue beta-samira. On DAPT (6) Peritoneal dialysis catheter in place Comment: noted (7) Systolic CHF Comment: Echo shows EF 55% Noted fluid overload, but stable, Mild SOB with crackles noted, requiring oxygen. Continue Coreg and Tekturna - plan for hemodialysis (8) DVT prophylaxis Comment: Heparin SQ to q12 given CKD Status and Disposition: Swing bed pending placement.
[2017-12-09 11:46] LABS: ABS Basophils 0.1 10^3/ul (0-0.2); ABS Eosinophils 0.4 10^3/ul (0-0.6); ABS Lymphocytes 0.8 10^3/ul (1.0-4.8); ABS Monocytes 0.6 10^3/ul (0-0.8); ABS Neutrophils 4.5 10^3/ul (1.5-7.7); ABS Nucleated RBC 0 10^3/ul; Eosinophil % 6.2 % (0-6); Hematocrit 25 % (35-47); Hemoglobin 7.9 g/dl (12.0-16.0); Lymphocyte % 12.5 % (25-47); Mean Corpuscular HGB Conc 32 g/dl (31-36); Mean Corpuscular Hemoglobin 29 pg (27-31); Mean Corpuscular Volume 90 fL (80-97); Mean Platelet Volume 7.2 um3 (7.4-10.4); Nucleated Red Blood Cells % 0; Platelet Count 237 10^3/ul (150-450); Red Blood Count 2.71 10^6/ul (4.00-5.40); Red Cell Distribution Width 17 % (10.5-15); White Blood Count 6.4 10^3/ul (3.5-10.8)
[2017-12-09 11:54] LABS: INR 0.97 (0.77-1.02)
[2017-12-09 12:20] LABS: EGFR Non-African American 5.6 (>60)
[2017-12-09] MEDS: Atorvastatin* 20 MG TAB PO SCH (20:59)
[2017-12-10] MEDS: LORazepam TAB(*) 1 MG PO PRN (07:29)
--- NOTE | 2017-12-10 08:47 | PN ---
Subjective Date of Service: 12/10/17 Family History: Unchanged from Admission Social History: Unchanged from Admission Past Medical History: Unchanged from Admission Objective Active Medications: Acetaminophen (Tylenol Tab*) 650 mg PO Q4H PRN PRN Reason: FEVER/PAIN Last Admin: 12/08/17 19:31 Dose: 650 mg Hydrocodone Bitart/Acetaminophen ([place] 5-325 Tab*) 1 tab PO Q6H PRN PRN Reason: PAIN Last Admin: 12/09/17 06:35 Dose: 1 tab [place] (Tekturna Tab*) 300 mg PO DAILY [facility] Last Admin: 12/09/17 07:44 Dose: 300 mg Aspirin (Aspirin Ec Tab*) 81 mg PO DAILY [facility] Last Admin: 12/09/17 07:44 Dose: 81 mg Atorvastatin Calcium (Lipitor*) 20 mg PO 2100 [facility] Last Admin: 12/09/17 20:59 Dose: 20 mg Calcitriol (Rocaltrol Cap*) 0.25 mcg PO DAILY [facility] Last Admin: 12/09/17 07:44 Dose: 0.25 mcg Carvedilol (Coreg Tab*) 25 mg PO BID [facility] Last Admin: 12/09/17 20:59 Dose: 25 mg Clopidogrel Bisulfate (Plavix Tab*) 75 mg PO DAILY [facility] Last Admin: 12/09/17 07:44 Dose: 75 mg Docusate Sodium (Colace Cap*) 200 mg PO DAILY PRN PRN Reason: CONSTIPATION Heparin Sodium (Porcine) (Heparin Vial(*)) 5,000 units SUBCUT Q12HR [facility] Last Admin: 12/09/17 20:59 Dose: 5,000 units Heparin Sodium (Porcine) (Heparin(*)) 0 unit IV DAILY [facility] Last Admin: 12/09/17 07:29 Dose: Not Given Lorazepam (Ativan Tab(*)) 1 mg PO Q6H PRN PRN Reason: ANXIETY Last Admin: 12/10/17 07:29 Dose: 1 mg Mupirocin (Bactroban 2 % Oint*) 1 applic TOPICAL DAILY [facility] Last Admin: 12/09/17 07:29 Dose: Not Given Ondansetron HCl (Zofran Odt Tab*) 4 mg SL Q6H PRN PRN Reason: NAUSEA/VOMITING Last Admin: 12/09/17 01:03 Dose: 4 mg Pantoprazole Sodium (Protonix Tab (Nf)) 40 mg PO DAILY [facility] Last Admin: 12/09/17 07:44 Dose: 40 mg Senna (Senokot Tab*) 1 tab PO DAILY PRN PRN Reason: CONSTIPATION Sertraline HCl (Zoloft*) 50 mg PO DAILY [facility] Last Admin: 12/09/17 07:44 Dose: 50 mg Vital Signs - 8 hr 12/10/17 07:29 Respiratory 16 Rate Oxygen Devices in Use Now: Nasal Cannula Result Diagrams: 12/09/17 11:31 12/09/17 11:31 Assess/Plan/Problems-Billing Assessment: Patient is a 57yo with a PMH for 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 - Patient Problems (1) ESRD (end stage renal disease) Comment: - Hx of polycystic kidney disease. - PD not effectively dialyzing pt, per patient she is retaining fluid. Some mild SOB. - Hemodialysis tunneled cuff catheter to be placed by surgery - preference today or tomorrow so she can have hemodialysis wed. Patient agrees with plan. Surgery to consult. Will send labs including INR, PTT. (2) Physical deconditioning Comment: General, without focality. Is agreeable to STR at this time. Swing Bed. PT/OT. Will need placement (3) CVA (cerebral vascular accident) Comment: Previous recent hospitalization. Possible cardioembolic, noted PFO in past. Neurology discussed anticoagulation, however she is high risk d/t falls, and complicated d/t known intracranial aneurysms, previously she was recommended to f/u with an endovascular neurosurgeon which she failed to do. Recommendation last hospitalizations was if there was compelling evidence to anticoagulate such as dopplers or noted afib on tele it may need to be further considered. Dopplers negative. Continue duel anti-platelet therapy for 30 days from 11/29 (4) COPD (chronic obstructive pulmonary disease) Comment: Stable With Chronic hypoxic respiratory failure Continue O2 at 1L NC (5) Hx of coronary artery disease Comment: Continue beta-samira. On DAPT (6) Peritoneal dialysis catheter in place Comment: noted (7) Systolic CHF Comment: Echo shows EF 55% Noted fluid overload, but stable, Mild SOB with crackles noted, requiring oxygen. Continue Coreg and Tekturna - plan for hemodialysis (8) DVT prophylaxis Comment: Heparin SQ to q12 given CKD Status and Disposition: Swing bed pending placement.
[2017-12-10] MEDS: CMCS: Pantoprazole TAB (NF) 40 MG TAB PO SCH (09:25)
[2017-12-10] MEDS: Sertraline* 50 MG TAB PO SCH (09:25)
[2017-12-10] MEDS: Calcitriol CAP* 0.25 MCG PO SCH (09:25)
[2017-12-10] MEDS: Carvedilol TAB* 25 MG PO SCH ×2 (09:25→21:01)
[2017-12-10] MEDS: Clopidogrel TAB* 75 MG PO SCH (09:25)
[2017-12-10] MEDS: Heparin VIAL(*) 5000 UNITS/ML VIAL (FIVE THOUSAND) SUBCUT SCH ×2 (09:25→21:01)
[2017-12-10] MEDS: Aliskiren TAB* 300 MG PO SCH (09:25)
[2017-12-10] MEDS: Aspirin EC TAB* 81 MG TAB.EC PO SCH (09:25)
[2017-12-10] MEDS: Heparin(*) 1000 UNIT/ML 10 ML VIAL CATH LAB IV SCH (09:26)
[2017-12-10] MEDS: Mupirocin 2% OINT* TUBE TOPICAL SCH (09:26)
[2017-12-10] MEDS: Ondansetron ODT TAB* 4 MG SL PRN (11:04)
--- NOTE | 2017-12-10 14:46 | PN ---
Hospitalist Progress Note Date of Service: 12/10/[address] Villarreal, plan now for to place catheter. Hold Plavix. He spoke with Dr. Bianchi who recommended giving DDAVP prior to surgery. Will discuss with pharmacist best timing pre-op.
[2017-12-10] MEDS: Atorvastatin* 20 MG TAB PO SCH (21:01)
[2017-12-11] MEDS: HYDROcodone/ACETAMIN 5-325 MG* 1 TAB PO PRN (04:42)
[2017-12-11] MEDS: Mupirocin 2% OINT* TUBE TOPICAL SCH (07:15)
[2017-12-11] MEDS: Heparin(*) 1000 UNIT/ML 10 ML VIAL CATH LAB IV SCH (07:15)
[2017-12-11] MEDS: Calcitriol CAP* 0.25 MCG PO SCH (08:57)
[2017-12-11] MEDS: Aspirin EC TAB* 81 MG TAB.EC PO SCH (08:57)
[2017-12-11] MEDS: Aliskiren TAB* 300 MG PO SCH (08:57)
[2017-12-11] MEDS: Sertraline* 50 MG TAB PO SCH (08:57)
[2017-12-11] MEDS: Heparin VIAL(*) 5000 UNITS/ML VIAL (FIVE THOUSAND) SUBCUT SCH (08:57)
[2017-12-11] MEDS: Carvedilol TAB* 25 MG PO SCH ×2 (08:57→21:17)
[2017-12-11] MEDS: CMCS: Pantoprazole TAB (NF) 40 MG TAB PO SCH (08:57)
[2017-12-11] MEDS: LORazepam TAB(*) 1 MG PO PRN ×2 (10:51→18:37)
[2017-12-11] MEDS: Ondansetron TAB* 4 MG PO PRN (16:38)
[2017-12-11] MEDS: Atorvastatin* 20 MG TAB PO SCH (21:17)
[2017-12-12] MEDS: HYDROcodone/ACETAMIN 5-325 MG* 1 TAB PO PRN ×2 (04:14→20:09)
[2017-12-12 06:56] LABS: ABS Basophils 0.1 10^3/ul (0-0.2); ABS Eosinophils 0.5 10^3/ul (0-0.6); ABS Lymphocytes 0.9 10^3/ul (1.0-4.8); ABS Monocytes 0.8 10^3/ul (0-0.8); ABS Nucleated RBC 0 10^3/ul; Eosinophil % 6.5 % (0-6); Hematocrit 25 % (35-47); Hemoglobin 8.1 g/dl (12.0-16.0); Lymphocyte % 12.5 % (25-47); Mean Corpuscular HGB Conc 33 g/dl (31-36); Mean Corpuscular Hemoglobin 30 pg (27-31); Mean Corpuscular Volume 90 fL (80-97); Mean Platelet Volume 7.5 um3 (7.4-10.4); Nucleated Red Blood Cells % 0; Platelet Count 264 10^3/ul (150-450); Red Blood Count 2.74 10^6/ul (4.00-5.40); Red Cell Distribution Width 17 % (10.5-15); White Blood Count 7.2 10^3/ul (3.5-10.8)
[2017-12-12] MEDS: Heparin(*) 1000 UNIT/ML 10 ML VIAL CATH LAB IV SCH (07:16)
[2017-12-12] MEDS: Mupirocin 2% OINT* TUBE TOPICAL SCH (07:16)
[2017-12-12] MEDS: Aliskiren TAB* 300 MG PO SCH (08:05)
[2017-12-12] MEDS: Calcitriol CAP* 0.25 MCG PO SCH (08:05)
[2017-12-12] MEDS: Sertraline* 50 MG TAB PO SCH (08:05)
[2017-12-12] MEDS: CMCS: Pantoprazole TAB (NF) 40 MG TAB PO SCH (08:05)
[2017-12-12] MEDS: LORazepam TAB(*) 1 MG PO PRN (08:05)
[2017-12-12] MEDS: Carvedilol TAB* 25 MG PO SCH (08:05)
[2017-12-12] MEDS: Aspirin EC TAB* 81 MG TAB.EC PO SCH (08:08)
[2017-12-12] MEDS ORDERED: Desmopressin Acetate* 4 MCG/ML 10 ML VIAL IVPB ONE (13:00)
[2017-12-12] MEDS ORDERED: NS 0.9% IVPB ONE (13:00)
[2017-12-12] MEDS ORDERED: DESMOPRESSIN ACETATE IVPB ONE (13:00)
--- NOTE | 2017-12-12 18:05 | RAD ---
INDICATION: Status post right internal jugular vein tunneled dialysis catheter placement COMPARISON: Chest x-ray November 24, 2017 TECHNIQUE: Single AP portable view of the chest was obtained. FINDINGS: Image quality is compromised due to the relative inferiority of a portable chest x-ray. There is been interval placement of a right internal jugular vein tunneled hemodialysis catheter with the tip terminating at the cavoatrial junction. The heart and mediastinum exhibit normal size and contour. There are patchy densities obscuring the bilateral lungs as well as density obscuring the left lung base and left hemidiaphragm. Visualized bones are normal for the patient's age. IMPRESSION: 1. Interval placement of a tunneled hemodialysis catheter as described above. 2. Chest x-ray findings are consistent with pulmonary edema and likely left lung base pleural effusion.
--- NOTE | 2017-12-12 18:32 | PN ---
Hospitalist Progress Note Date of Service: 12/12/17 Patient back from HD cath insertion. Per nurse dialysis recommends hold home antihypertensive meds so they can try to get a lot of fluid off tomorrow during dialysis. Will DC Tekturna and Coreg, these will need to potentially be restarted determining blood pressure. As well her Plavix is on hold for the procdure and will need to be restarted when cleared by surgery.
--- NOTE | 2017-12-12 18:32 | PN ---
Subjective Date of Service: 12/12/17 Interval History: Patient back from HD cath insertion. Per nurse dialysis recommends hold home antihypertensive meds so they can try to get a lot of fluid off tomorrow during dialysis. Will DC Tekturna and Coreg, these will need to potentially be restarted determining blood pressure. As well her Plavix is on hold for the procdure and will need to be restarted when cleared by surgery. Family History: Unchanged from Admission Social History: Unchanged from Admission Past Medical History: Unchanged from Admission Objective Active Medications: Acetaminophen (Tylenol Tab*) 650 mg PO Q4H PRN PRN Reason: FEVER/PAIN Last Admin: 12/08/17 19:31 Dose: 650 mg Hydrocodone Bitart/Acetaminophen ([place] 5-325 Tab*) 1 tab PO Q6H PRN PRN Reason: PAIN Last Admin: 12/12/17 04:14 Dose: 1 tab Aspirin (Aspirin Ec Tab*) 81 mg PO DAILY [facility] Last Admin: 12/12/17 08:08 Dose: Not Given Atorvastatin Calcium (Lipitor*) 20 mg PO 2100 [facility] Last Admin: 12/11/17 21:17 Dose: 20 mg Calcitriol (Rocaltrol Cap*) 0.25 mcg PO DAILY [facility] Last Admin: 12/12/17 08:05 Dose: 0.25 mcg Docusate Sodium (Colace Cap*) 200 mg PO DAILY PRN PRN Reason: CONSTIPATION Heparin Sodium (Porcine) (Heparin(*)) 0 unit IV DAILY [facility] Last Admin: 12/12/17 07:16 Dose: Not Given Lorazepam (Ativan Tab(*)) 1 mg PO Q6H PRN PRN Reason: ANXIETY Last Admin: 12/12/17 08:05 Dose: 1 mg Mupirocin (Bactroban 2 % Oint*) 1 applic TOPICAL DAILY [facility] Last Admin: 12/12/17 07:16 Dose: Not Given Ondansetron HCl (Zofran Tab*) 4 mg PO Q6H PRN PRN Reason: NAUSEA/VOMITING Last Admin: 12/11/17 16:38 Dose: 4 mg Pantoprazole Sodium (Protonix Tab (Nf)) 40 mg PO DAILY [facility] Last Admin: 12/12/17 08:05 Dose: 40 mg Senna (Senokot Tab*) 1 tab PO DAILY PRN PRN Reason: CONSTIPATION Sertraline HCl (Zoloft*) 50 mg PO DAILY [facility] Last Admin: 12/12/17 08:05 Dose: 50 mg Vital Signs - 8 hr 12/12/17 12/12/17 12/12/17 12:20 18:11 18:14 Temperature 97.5 F 97.5 F Pulse Rate 62 70 70 Respiratory 19 20 20 Rate Blood Pressure 122/64 86/54 90/50 (mmHg) O2 Sat by Pulse 98 94 94 Oximetry Oxygen Devices in Use Now: Nasal Cannula Result Diagrams: 12/12/17 06:09 12/12/17 06:09 Assess/Plan/Problems-Billing Assessment: - Patient Problems (1) ESRD (end stage renal disease) Comment: - Hx of polycystic kidney disease. - PD not effectively dialyzing pt, per patient she is retaining fluid. Some mild SOB. - Hemodialysis tunneled cuff catheter to be placed by surgery - preference today or tomorrow so she can have hemodialysis wed. Patient agrees with plan. Surgery to consult. Will send labs including INR, PTT. (2) Physical deconditioning Comment: General, without focality. Is agreeable to STR at this time. Swing Bed. PT/OT. Will need placement (3) CVA (cerebral vascular accident) Comment: Previous recent hospitalization. Possible cardioembolic, noted PFO in past. Neurology discussed anticoagulation, however she is high risk d/t falls, and complicated d/t known intracranial aneurysms, previously she was recommended to f/u with an endovascular neurosurgeon which she failed to do. Recommendation last hospitalizations was if there was compelling evidence to anticoagulate such as dopplers or noted afib on tele it may need to be further considered. Dopplers negative. Continue duel anti-platelet therapy for 30 days from 11/29 (4) COPD (chronic obstructive pulmonary disease) Comment: Stable With Chronic hypoxic respiratory failure Continue O2 at 1L NC (5) Hx of coronary artery disease Comment: Continue beta-samira. On DAPT (6) Peritoneal dialysis catheter in place Comment: noted (7) Systolic CHF Comment: Echo shows EF 55% Noted fluid overload, but stable, Mild SOB with crackles noted, requiring oxygen. Continue Coreg and Tekturna - plan for hemodialysis (8) DVT prophylaxis Comment: Heparin SQ to q12 given CKD
[2017-12-12] MEDS: Atorvastatin* 20 MG TAB PO SCH (20:09)
--- NOTE | 2017-12-12 20:49 | RAD ---
CPT II Codes: G9500 INDICATION: Renal failure TECHNIQUE: Intraoperative fluoroscopy was provided during placement of a right internal jugular vein tunneled hemodialysis catheter. FINDINGS: A single spot film depicts a tunneled hemodialysis catheter above the right clavicle. The tip is not visualized on the image. Fluoroscopy time: 12.7 seconds IMPRESSION: As above.
[2017-12-13] MEDS: Acetaminophen TAB* 325 MG PO PRN ×3 (00:33→16:34)
[2017-12-13] MEDS: HYDROcodone/ACETAMIN 5-325 MG* 1 TAB PO PRN ×3 (03:08→14:51)
[2017-12-13] MEDS: LORazepam TAB(*) 1 MG PO PRN ×2 (06:02→20:19)
[2017-12-13] MEDS: Sertraline* 50 MG TAB PO SCH (08:54)
[2017-12-13] MEDS: CMCS: Pantoprazole TAB (NF) 40 MG TAB PO SCH (08:54)
[2017-12-13] MEDS: Calcitriol CAP* 0.25 MCG PO SCH (08:54)
[2017-12-13] MEDS: Aspirin EC TAB* 81 MG TAB.EC PO SCH (08:55)
[2017-12-13] MEDS: Heparin(*) 1000 UNIT/ML 10 ML VIAL CATH LAB IV SCH (09:00)
[2017-12-13] MEDS: Mupirocin 2% OINT* TUBE TOPICAL SCH (09:00)
[2017-12-13] MEDS ORDERED: Epoetin Alfa* 10,000 UNITS/ML VIAL IV ONE (11:00)
[2017-12-13] MEDS ORDERED: Heparin DIALYSIS ONLY(*) 1,000 UNITS/ML VIAL DIALYSIS ONE (11:00)
--- NOTE | 2017-12-13 11:02 | OP ---
CC: Darinel Villarreal MD; Dr. Jet Bianchi* OPERATIVE REPORT: DATE OF OPERATION: 12/12/17 - Inpatient, room 402-01. DATE OF : 60 SURGEON: Darinel Villarreal MD MAGNETIC OBSERVER: None. ANESTHESIOLOGIST: Marek. ANESTHESIA: LMAC anesthesia. PRE-OP DIAGNOSIS: Renal failure. POST-OP DIAGNOSIS: Renal failure. OPERATIVE PROCEDURE: Placement of right internal jugular hemodialysis catheter , with sono and fluoro guidance. DESCRIPTION OF PROCEDURE: The patient was supine on the operating table. After adequate intravenous sedation, the right neck and chest region were prepped with antiseptic and draped in a sterile fashion. Ultrasound was used to identify the jugular vein in the neck. Several times, I am able to cannulate the vein and then the wire does not pass, but ultimately I am able to cannulate the vein and get the wire to pass and it passes nicely down the SVC. It was decided that a 28-cm hemodialysis catheter would be utilized. This was tunneled above from below and then passed through the peel-away introducer after dilating the tract. The catheter was positioned with the tip in the distal SVC and the cuff is roughly 3 to 4 cm above the exit site. The exit site was suture closed with 4-0 Prolene, was also used to secure the catheter flange. The neck site is sutured with 5-0 Vicryl followed by Steri-Strips. A Tegaderm dressing was placed over the exit site. The catheter had good blood return. It was flushed with saline solution and then final heparin flush solution. She is awakened and brought to Recovery in good condition. There were no complications. No drains. No pathologic specimens. Sponge and instrument counts correct. Estimated blood loss is 50 mL. [id number]/[facility] #: [id number] [facility]
[2017-12-13] MEDS ORDERED: HYDROcodone/ACETAMIN 5-325 MG* 1 TAB PO ONE (19:00)
[2017-12-13] MEDS: Atorvastatin* 20 MG TAB PO SCH (20:19)
--- NOTE | 2017-12-13 20:34 | PN ---
Hospitalist Progress Note Date of Service: 12/13/17 Called by Nursing staff do to patients increased pain at her hemodialysis cath site. There is no bleed or swelling noted to the site. No crepitus or ecchymosis noted. Lungs sounds are diminished but clear. Will give 1 time dose of hydrocodone for her increased pain. Will reassess tomorrow. Patient did receive dialysis today.
[2017-12-14] MEDS: HYDROcodone/ACETAMIN 5-325 MG* 1 TAB PO PRN ×2 (05:52→18:31)
[2017-12-14] MEDS: CMCS: Pantoprazole TAB (NF) 40 MG TAB PO SCH (08:24)
[2017-12-14] MEDS: LORazepam TAB(*) 1 MG PO PRN ×2 (08:24→22:04)
[2017-12-14] MEDS: Sertraline* 50 MG TAB PO SCH (08:24)
[2017-12-14] MEDS: Aspirin EC TAB* 81 MG TAB.EC PO SCH (08:24)
[2017-12-14] MEDS: Calcitriol CAP* 0.25 MCG PO SCH (08:25)
[2017-12-14] MEDS: Heparin(*) 1000 UNIT/ML 10 ML VIAL CATH LAB IV SCH (09:05)
[2017-12-14] MEDS: Mupirocin 2% OINT* TUBE TOPICAL SCH (09:07)
[2017-12-14] MEDS: Atorvastatin* 20 MG TAB PO SCH (22:04)
[2017-12-14] MEDS: Acetaminophen TAB* 325 MG PO PRN (22:06)
[2017-12-15] MEDS: HYDROcodone/ACETAMIN 5-325 MG* 1 TAB PO PRN ×3 (01:52→23:15)
[2017-12-15] MEDS: LORazepam TAB(*) 1 MG PO PRN ×2 (04:21→19:18)
[2017-12-15 06:51] LABS: ABS Basophils 0.2 10^3/ul (0-0.2); ABS Eosinophils 0.6 10^3/ul (0-0.6); ABS Monocytes 0.9 10^3/ul (0-0.8); ABS Neutrophils 5.5 10^3/ul (1.5-7.7); ABS Nucleated RBC 0 10^3/ul; Eosinophil % 7.1 % (0-6); Hematocrit 26 % (35-47); Hemoglobin 8.8 g/dl (12.0-16.0); Mean Corpuscular HGB Conc 34 g/dl (31-36); Mean Corpuscular Hemoglobin 31 pg (27-31); Mean Corpuscular Volume 90 fL (80-97); Mean Platelet Volume 7.5 um3 (7.4-10.4); Nucleated Red Blood Cells % 0.1; Platelet Count 274 10^3/ul (150-450); Red Blood Count 2.88 10^6/ul (4.00-5.40); Red Cell Distribution Width 17 % (10.5-15); White Blood Count 8.1 10^3/ul (3.5-10.8)
[2017-12-15 07:12] LABS: EGFR Non-African American 5.1 (>60)
[2017-12-15] MEDS: Heparin(*) 1000 UNIT/ML 10 ML VIAL CATH LAB IV SCH (07:38)
[2017-12-15] MEDS: Mupirocin 2% OINT* TUBE TOPICAL SCH (07:39)
[2017-12-15] MEDS: CMCS: Pantoprazole TAB (NF) 40 MG TAB PO SCH (07:52)
[2017-12-15] MEDS: Sertraline* 50 MG TAB PO SCH (07:52)
[2017-12-15] MEDS: Acetaminophen TAB* 325 MG PO PRN ×2 (07:52→19:18)
[2017-12-15] MEDS: Aspirin EC TAB* 81 MG TAB.EC PO SCH (07:52)
[2017-12-15] MEDS: Calcitriol CAP* 0.25 MCG PO SCH (07:52)
[2017-12-15] MEDS: Ondansetron TAB* 4 MG PO PRN (17:20)
[2017-12-15] MEDS: Atorvastatin* 20 MG TAB PO SCH (19:18)
[2017-12-16] MEDS: HYDROcodone/ACETAMIN 5-325 MG* 1 TAB PO PRN ×2 (06:48→12:59)
[2017-12-16] MEDS: LORazepam TAB(*) 1 MG PO PRN ×2 (07:23→14:29)
[2017-12-16] MEDS: CMCS: Pantoprazole TAB (NF) 40 MG TAB PO SCH (08:50)
[2017-12-16] MEDS: Calcitriol CAP* 0.25 MCG PO SCH (08:50)
[2017-12-16] MEDS: Aspirin EC TAB* 81 MG TAB.EC PO SCH (08:50)
[2017-12-16] MEDS: Sertraline* 50 MG TAB PO SCH (08:51)
[2017-12-16] MEDS: Heparin(*) 1000 UNIT/ML 10 ML VIAL CATH LAB IV SCH (09:11)
[2017-12-16] MEDS: Mupirocin 2% OINT* TUBE TOPICAL SCH (09:11)
[2017-12-16] MEDS ORDERED: Heparin DIALYSIS ONLY(*) 1,000 UNITS/ML VIAL DIALYSIS ONE (10:00)
[2017-12-16] MEDS ORDERED: Epoetin Alfa* 10,000 UNITS/ML VIAL IV ONE (10:00)
--- NOTE | 2017-12-16 10:29 | PN ---
Subjective Date of Service: 12/16/17 Interval History: PAtient seen and examined. Currently having HD and tolerating well. Per RN, BP was elevated at the start, but is starting to trend down with treatment. Still with serous leaking to dialysis cath site. Evaluated by surgery, will be resutured by surgical attending after HD finishes. Patient states she feel weak , no acute SOB, no further complaints. Family History: Unchanged from Admission Social History: Unchanged from Admission Past Medical History: Unchanged from Admission Objective Active Medications: Acetaminophen (Tylenol Tab*) 650 mg PO Q4H PRN PRN Reason: FEVER/PAIN Last Admin: 12/15/17 19:18 Dose: 650 mg Hydrocodone Bitart/Acetaminophen ([place] 5-325 Tab*) 1 tab PO Q6H PRN PRN Reason: PAIN Last Admin: 12/16/17 06:48 Dose: 1 tab Aspirin (Aspirin Ec Tab*) 81 mg PO DAILY [facility] Last Admin: 12/16/17 08:50 Dose: 81 mg Atorvastatin Calcium (Lipitor*) 20 mg PO 2100 [facility] Last Admin: 12/15/17 19:18 Dose: 20 mg Calcitriol (Rocaltrol Cap*) 0.25 mcg PO DAILY [facility] Last Admin: 12/16/17 08:50 Dose: 0.25 mcg Docusate Sodium (Colace Cap*) 200 mg PO DAILY PRN PRN Reason: CONSTIPATION Lorazepam (Ativan Tab(*)) 1 mg PO Q6H PRN PRN Reason: ANXIETY Last Admin: 12/16/17 07:23 Dose: 1 mg Mupirocin (Bactroban 2 % Oint*) 1 applic TOPICAL DAILY [facility] Last Admin: 12/16/17 09:11 Dose: Not Given Ondansetron HCl (Zofran Tab*) 4 mg PO Q6H PRN PRN Reason: NAUSEA/VOMITING Last Admin: 12/15/17 17:20 Dose: 4 mg Pantoprazole Sodium (Protonix Tab (Nf)) 40 mg PO DAILY [facility] Last Admin: 12/16/17 08:50 Dose: 40 mg Senna (Senokot Tab*) 1 tab PO DAILY PRN PRN Reason: CONSTIPATION Sertraline HCl (Zoloft*) 50 mg PO DAILY [facility] Last Admin: 12/16/17 08:51 Dose: 50 mg Vital Signs - 8 hr 0712/16/17 12/16/17 06:48 07:23 07:39 Temperature 97.4 F Pulse Rate 72 Respiratory 20 24 24 Rate Blood Pressure 186/97 (mmHg) O2 Sat by Pulse 95 Oximetry 12/16/17 12/16/17 12/16/17 07:40 08:02 08:55 Temperature Pulse Rate Respiratory 20 Rate Blood Pressure 162/74 (mmHg) O2 Sat by Pulse 96 Oximetry 12/16/17 08:59 Temperature Pulse Rate Respiratory 20 Rate Blood Pressure (mmHg) O2 Sat by Pulse Oximetry Oxygen Devices in Use Now: Nasal Cannula Appearance: alert, frail, NAD Eyes: No Scleral Icterus, PERRLA Ears/Nose/Mouth/Throat: - - dry oral mucosa Neck: NL Appearance and Movements; NL JVP, - - dialysis cath site with persistent drainage on dressing Respiratory: Symmetrical Chest Expansion and Respiratory Effort, - - diminished bases Cardiovascular: NL Sounds; No Murmurs; No JVD, RRR Abdominal: NL Sounds; No Tenderness; No Distention Extremities: No Clubbing, Cyanosis, - - wound RLE dressing CDI Neurological: Alert and Oriented x 3, - - general weakness Nutrition: Taking PO's Result Diagrams: 12/15/17 06:27 12/15/17 06:27 Assess/Plan/Problems-Billing Assessment: This is a 57 year old female with extensive history of ESRD on PD, now on HD started this week, multiple CVAs, general weakness and chronic pain that was unable to be discharged to home, and remains on SWING status until placement can be obtained. - Patient Problems (1) Physical deconditioning Code(s): R53.81 - OTHER MALAISE SNOMED Code(s): 72788145034237 Comment: - No new focality, likely long-standing chronic illness and multiple hospital admissions - Needs rehab, but will talk with patient and her son about placement and goals of care (2) Anemia Code(s): D64.9 - ANEMIA, UNSPECIFIED SNOMED Code(s): 236015986 Comment: - 2/2 Chronic disease/ESRD - Continue supportive care (3) Anxiety Onset Date: 01/26/14 Code(s): F41.9 - ANXIETY DISORDER, UNSPECIFIED SNOMED Code(s): 08920687 Comment: - Continue sertraline daily - Ativan PRN, mood stable (4) Chronic pain Code(s): G89.29 - OTHER CHRONIC PAIN SNOMED Code(s): 06641311 Comment: - Hydrocodone as needed (5) ESRD (end stage renal disease) Code(s): N18.6 - END STAGE RENAL DISEASE SNOMED Code(s): 14239538 Comment: - 2/2 polycycstic renal disease - Ultimately failed PD - Tunneled cath placed for HD this week - Tolerating HD, plan for MWF as an outpatient (6) HTN (hypertension) Code(s): I10 - ESSENTIAL (PRIMARY) HYPERTENSION SNOMED Code(s): 60180834 Comment: - Hypertensive today prior to HD, with no improvement - Restart Tekturna and Coreg, first doses now then daily - Cotninue to monitor (7) CVA (cerebral vascular accident) Code(s): I63.9 - CEREBRAL INFARCTION, UNSPECIFIED SNOMED Code(s): 208318679 Comment: - Continue duel anti-platelet therapy for 30 days from 11/29 when ok by surgery to restart, would recommend continue to hold as cath site is bleeding - Re-eval tomorrow (8) Full code status Code(s): Z78.9 - OTHER SPECIFIED HEALTH STATUS SNOMED Code(s): 308607018 Status and Disposition: Needs placement and family discussion for realistic plan about patient's physical capacity to be home.
[2017-12-16] MEDS: Carvedilol TAB* 25 MG PO SCH (11:20)
[2017-12-16] MEDS: Aliskiren TAB* 300 MG PO SCH (11:20)
[2017-12-16] MEDS: Acetaminophen TAB* 325 MG PO PRN ×2 (11:20→16:10)
[2017-12-16] MEDS: Atorvastatin* 20 MG TAB PO SCH (19:59)
--- NOTE | 2017-12-17 02:20 | OP ---
CC: Dr. Bianchi * DATE OF PROCEDURE: 12/16/17 HISTORY: Ms. Charles is 4 days out from placement of a new hemodialysis catheter. I was called this morning by my dialysis unit. She was bleeding from the exit site. DESCRIPTION OF PROCEDURE: On evaluation, there was fresh blood oozing from the catheter exit site on the right chest. There was no obvious bleeder at the site , it was coming from within, therefore it was decided that a compression suture will be placed to tamponade the area. Two sutures of 2-0 silk were placed under local anesthetic with alcohol prep. She tolerated this well and the dialysis nurses will take care of replacing the bandage afterwards and certainly they are free to call me if there is any additional bleeding. [id number]/[facility] #: [id number] MTDRenee
[2017-12-17] MEDS: HYDROcodone/ACETAMIN 5-325 MG* 1 TAB PO PRN ×2 (02:59→12:08)
[2017-12-17] MEDS: Sertraline* 50 MG TAB PO SCH (07:40)
[2017-12-17] MEDS: Carvedilol TAB* 25 MG PO SCH (07:41)
[2017-12-17] MEDS: Aliskiren TAB* 300 MG PO SCH (07:41)
[2017-12-17 07:42] VITALS: BP 158/74
[2017-12-17] MEDS: Calcitriol CAP* 0.25 MCG PO SCH (07:42)
[2017-12-17] MEDS: Aspirin EC TAB* 81 MG TAB.EC PO SCH (07:42)
[2017-12-17] MEDS: CMCS: Pantoprazole TAB (NF) 40 MG TAB PO SCH (07:42)
[2017-12-17] MEDS: LORazepam TAB(*) 1 MG PO PRN (08:01)
[2017-12-17] MEDS: Mupirocin 2% OINT* TUBE TOPICAL SCH (08:22)
--- NOTE | 2017-12-17 12:08 | DS ---
CC: Dr. Letty Duffy; Dr. Jet Bianchi* DATE OF ADMISSION: 11/30/2017. DATE OF DISCHARGE: 12/17/2017. PRIMARY CARE PHYSICIAN: Dr. Letty Duffy. ATTENDING PHYSICIAN FOR THIS ADMISSION: Dr. Chato Chavis. MY ATTENDING PHYSICIAN FOR TODAY: Dr. Dennis Manzo* (dictated by Jenna Mooney NP). HOSPITAL COURSE: This is a 57-year-old female patient who discharged from the hospital on November 30 after having a complicated admission for CVA and peritonitis. The patient was stabilized and discharged to home on the ; however, two hours later the patient returned to the emergency department. Her son, whom she lives with and her primary caregiver, was unable to actually transport the patient into the house. She became very weak and deconditioned and was advised to come back to the emergency department where she was admitted to swing status given her recent hospitalization. The patient has remained in swing on fluid overload and dealing with her issues with her end-stage renal disease and peritoneal dialysis. It was determined that during this time, because of her persistent fluid over which has been happening for some six months now, the patient finally agreed to having a hemodialysis catheter placed. That procedure was performed by our surgical team, Dr. Villarreal, inpatient on 12/12/2017. The patient had placement of a right internal jugular hemodialysis catheter. That procedure was performed with ultrasound and fluoroscopy guidance. She had an uneventful procedure; however, when the dialysis catheter was being used for her first round of hemodialysis, she did have some seepage and leaking. On 12/16/2017, Dr. Villarreal and the surgical team resutured the catheter and effectively controlling the amount of seepage and bleeding from the insertion site. The patient tolerated her first few rounds of hemodialysis with no issue. She was scheduled by Dr. Bianchi for a Saturday, Saturday, and Saturday regimen in the afternoons. Now that the patient is less fluid bound and feeling better, she is ready for discharge to rehab. Of significant note up to this point, because the patient was on peritoneal dialysis for so long, we had had quite a bit of difficulty placing her in rehab for PD; however, now that she is on hemodialysis, we are sending her locally to [facility] this afternoon. Please see initial discharge summary from 11/30/2017 for her full course and hospitalization from her admission prior to being admitted back for swing status. DISCHARGE DIAGNOSES: 1. Physical deconditioning with no new focalities. 2. Anemia of chronic disease, secondary to end-stage renal disease. 3. History of anxiety, maintained on SSRI and Ativan as needed. 4. Chronic pain: Hydrocodone and Methadone as needed. 5. Hypertension: Controlled with Tekturna and Coreg and is stable. 6. History of CVA, most recently in November of this year, also currently stable with no residual deficits. DISCHARGE MEDICATIONS: 1. Tylenol 650 mg as needed q.4 hours. 2. Colace 200 mg p.o. daily. 3. Tekturna 300 mg daily. 4. Aspirin 81 mg daily. 5. Atorvastatin 20 mg in the evening. 6. Calcitriol 0.25 mcg daily. 7. Carvedilol 25 mg two times a day. 8. Plavix 75 mg daily. 9. Enbrel 25 mg subcu weekly. 10. [place] one tab q.6 hours as needed. 11. Ativan 2 mg q.6 hours as needed. 12. Methadone 5 mg two times a day as needed. 13. Bactroban ointment applied to leg wound daily. 14. Naproxen 500 mg two times a day as needed. 15. Omeprazole 20 mg daily. 16. Sertraline 50 mg daily. LABORATORY DATA: Most recent labs dated 12/15/2017: WBC 8.1, RBC 2.88, hemoglobin 8.8, hematocrit 26, platelets 274; sodium 137, potassium 4.4, chloride 98, CO2 26, BUN 52, creatinine 8.09, GFR 5.1, glucose 84, calcium 9.1; INR 0.97. DISPOSITION: The patient will be discharged to [facility] this afternoon for subacute rehab. She can have a renal heart-healthy diet. Her activity, she can participate in PT ad amna as tolerated. Again, her dialysis schedule is Saturday, Saturday, and Saturday in the afternoons. This is being handled by Dr. Bianchi's office and should be continued. FOLLOW-UP: The patient should follow-up with Dr. Duffy's office after she is discharged from rehabilitation. Also, follow-up with home care services as needed after she is discharged from rehabilitation. Weekly follow-ups with Dr. Bianchi while she is maintained on her hemodialysis. The patient was discharged in stable condition. All questions were answered. I had a lengthy discussion also with the patient's son, Alex, who is also her power of attorney at law who is in agreement with her plan and is aware of her progress today. JENNA MOONEY, REMEDIATION CONSULTANT [id number]/[facility] #: [id number] AL[facility] MEDICAL CENTERRenee
== END 2017-12-17 13:10 | DRG 264 ==
LOC: ED 20:48 → MED 12-01 00:31
PROVIDERS: ADMIT Internal Medicine; ATTEND Internal Medicine
PROC: 3E1M39Z Irrigation of Peritoneal Cavity using Dialysate, Percutaneous Approach (ICD-10-PCS; 2017-12-02)
PROC: B513ZZA Fluoroscopy of Right Jugular Veins, Guidance (ICD-10-PCS; 2017-12-12)
PROC: 0JH63XZ Insertion of Tunneled Vascular Access Device into Chest Subcutaneous Tissue and Fascia, Percutaneous Approach (ICD-10-PCS; 2017-12-12)
PROC: 02HV33Z Insertion of Infusion Device into Superior Vena Cava, Percutaneous Approach (ICD-10-PCS; 2017-12-12)
PROC: 5A1D70Z Performance of Urinary Filtration, Intermittent, Less than 6 Hours Per Day (ICD-10-PCS; 2017-12-13)
PROC: 0W383ZZ Control Bleeding in Chest Wall, Percutaneous Approach (ICD-10-PCS; principal; 2017-12-16)
PROC: 5A1D70Z Performance of Urinary Filtration, Intermittent, Less than 6 Hours Per Day (ICD-10-PCS; 2017-12-16)
DX: 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 disease with heart failure and with stage 5 chronic kidney disease, or end stage renal disease (principal); N18.6 End stage renal disease; Q61.3 Polycystic kidney, unspecified; I50.22 Chronic systolic (congestive) heart failure; Q21.1 Atrial septal defect; I25.3 Aneurysm of heart; T82.43XA Leakage of vascular dialysis catheter, initial encounter; J96.11 Chronic respiratory failure with hypoxia; R53.81 Other malaise; Y84.1 Kidney dialysis as the cause of abnormal reaction of the patient, or of later complication, without mention of misadventure at the time of the procedure; Y92.239 Unspecified place in hospital as the place of occurrence of the external cause; G89.29 Other chronic pain; D63.1 Anemia in chronic kidney disease; I67.1 Cerebral aneurysm, nonruptured; I25.10 Atherosclerotic heart disease of native coronary artery without angina pectoris; E78.00 Pure hypercholesterolemia, unspecified; K21.9 Gastro-esophageal reflux disease without esophagitis; K57.90 Diverticulosis of intestine, part unspecified, without perforation or abscess without bleeding; J44.9 Chronic obstructive pulmonary disease, unspecified; I65.9 Occlusion and stenosis of unspecified precerebral artery; M19.90 Unspecified osteoarthritis, unspecified site; M06.9 Rheumatoid arthritis, unspecified; F41.9 Anxiety disorder, unspecified; F32.9 Major depressive disorder, single episode, unspecified; I25.2 Old myocardial infarction; Z88.5 Allergy status to narcotic agent; Z87.11 Personal history of peptic ulcer disease; Z99.2 Dependence on renal dialysis; Z86.73 Personal history of transient ischemic attack (TIA), and cerebral infarction without residual deficits; Z88.8 Allergy status to other drugs, medicaments and biological substances; Z87.891 Personal history of nicotine dependence; Z79.82 Long term (current) use of aspirin; Z79.02 Long term (current) use of antithrombotics/antiplatelets
CPT/HCPCS: 36415; 71045; 76000; 80048; 83735; 85025; 85610; 85730; 90935; 90945; 99283; A9270-GY; G0257; G8978-GP-CJ; G8979-GP-CI; G8987-GO-CL; G8988-GO-CI; G8989-GO-CI; J0885; J1644; J2597; J3475

== ENCOUNTER 2017-12-24 12:05 | Emergency (ER) | payer MEDICARE, MEDICAID ==
--- NOTE | 2017-12-24 12:21 | ED ---
Complex/Multi-Sys Presentation - HPI Summary HPI Summary: 57 y/o female BIBA c/o general malaise for around 1 week s/p hemodialysis. PMHx peritoneal dialysis (20 years). Last week pt was changed to hemodialysis and has been "off" ever since. Catheter placed by Dr. Villarreal around 2 weeks ago. Pt c/o nausea, SOB, vision deficit, confusion (with "left and right"). SOB aggravated with exertion. PMHx polycystic kidney disease. This is scribe Wesly Marie documenting for attending physician Walter Phillips M.D. - History Of Current Complaint Chief Complaint: EDAbdPain Time Seen by Provider: 12/24/17 12:16 Hx Obtained From: Patient Onset/Duration: Lasting Days, Still Present Timing: Constant Aggravating Factor(s): SOB aggravated with exertion Associated Signs And Symptoms: Positive: Confusion, SOB, Nausea, Other - vision deficit - Allergies/Home Medications Allergies/Adverse Reactions: Allergies Allergy/AdvReac Type Severity Reaction Status Date / Time Adhesive Tape Allergy Hives Verified 11/30/17 20:58 codeine AdvReac GI Upset Verified 12/13/17 18:19 Home Medications: Home Medications Acetaminophen TAB* [Tylenol TAB*] 650 mg PO Q4H PRN 12/24/17 [History Confirmed 12/24/17] Aliskiren TAB* [Tekturna TAB*] 300 mg PO QAM 12/24/17 [History Confirmed ] Aspirin EC TAB* [Ecotrin EC Low Dose 81 MG*] 81 mg PO QAM 12/24/17 [History Confirmed 12/24/17] Atorvastatin* [Lipitor*] 20 mg PO QPM 12/24/17 [History Confirmed 12/24/17] Calcitriol CAP* [Rocaltrol CAP*] 0.25 mcg PO QAM 12/24/17 [History Confirmed ] Carvedilol TAB* [Coreg TAB*] 25 mg PO BID 12/24/17 [History Confirmed 12/24/17] Clopidogrel TAB* [Plavix TAB*] 75 mg PO QPM 12/24/17 [History Confirmed 12/24/17 ] Etanercept [Enbrel] 25 mg SC WEEKLY 12/24/17 [History Confirmed 12/24/17] HYDROcodone/ACETAMIN 5-325 MG* [Raymond 5-325 TAB*] 1 tab PO Q6H PRN 12/24/17 [ History Confirmed 12/24/17] LORazepam TAB(*) [Ativan 1 MG TAB (*)] 2 mg PO Q6H PRN 12/24/17 [History Confirmed 12/24/17] Methadone TAB* [Dolophine TAB*] 5 mg PO Q12H PRN MDD 2 tablets 12/24/17 [ History Confirmed 12/24/17] Mupirocin 2% OINT* [Bactroban 2 % Oint*] 1 applic TOPICAL BID 12/24/17 [History Confirmed 12/24/17] Naproxen [Naprosyn 500 mg tab] 500 mg PO BID 12/24/17 [History Confirmed ] Omeprazole CAP* [Prilosec CAP* 20 MG] 20 mg PO QAM 12/24/17 [History Confirmed 12/24/17] Ondansetron TAB* [Zofran 4 MG Tab*] 4 mg PO Q8H PRN 12/24/17 [History Confirmed 12/24/17] Sertraline* [Zoloft*] 50 mg PO QAM 12/24/17 [History Confirmed 12/24/17] PMH/Surg Hx/FS Hx/Imm Hx Previously Healthy: No Endocrine/Hematology History: Reports: Hx Anemia - gets epogen shot Denies: Hx Blood Disorders, Hx Blood Transfusions, Hx Bone Marrow Disease, Hx Diabetes, Hx Systemic Lupus Erythematosus, Hx Thyroid Disease, Hx Unexplained Bleeding Cardiovascular History: Reports: Hx Aneurysm, Hx Cardiomegaly, Hx Congestive Heart Failure, Hx Coronary Artery Disease, Hx Hypercholesterolemia, Hx Hypertension, Other Cardiovascular Problems/Disorders - CAD, [place] Denies: Hx Pacemaker/ICD, Hx Peripheral Vascular Disease Respiratory History: Reports: Hx Pleural Effusion Denies: Hx Chronic Obstructive Pulmonary Disease (COPD) - PT DENIES, Hx Pneumonia, Hx Pulmonary Edema, Hx Pulmonary Embolism, Hx Seasonal Allergies, Hx Sleep Apnea GI History: Reports: Hx Diverticulosis, Hx Gastroesophageal Reflux Disease, Hx Ulcer History: Reports: Hx Chronic Renal Failure, Hx Dialysis - PD, Hx Kidney Infection, Hx Renal Disease - ESRD, polycystic kidney disease, Other Problems /Disorders - polycystic kidney Denies: Hx Kidney Stones Musculoskeletal History: Reports: Hx Arthritis, Hx Rheumatoid Arthritis, Hx Back Problems, Other Musculoskeletal History - LEFT HIP FX Denies: Hx Osteoporosis Sensory History: Reports: Hx Contacts or Glasses - reading Denies: Hx Cataracts, Hx Eye Injury, Hx Eye Prosthesis, Hx Glaucoma, Hx Legally Blind, Hx Macular Degeneration, Hx Vision Problem, Hx Deafness, Hx Hearing Aid, Hx Hearing Problem Opthamlomology History: Reports: Hx Contacts or Glasses - reading Denies: Hx Cataracts, Hx Eye Injury, Hx Eye Prosthesis, Hx Glaucoma, Hx Legally Blind, Hx Macular Degeneration, Hx Vision Problem Neurological History: Reports: Hx CVA, Other Neuro Impairments/Disorders - brain aneurism x5 per pt Denies: Hx Dementia, Hx Developmental Delay, Hx Headaches, Hx Migraine, Hx Nerve Disease, Hx Seizures Psychiatric History: Reports: Hx Anxiety, Hx Depression Denies: Hx Panic Disorder, Hx Post Traumatic Stress Disorder, Other Psychiatric Issues/Disorders - Cancer History Hx Chemotherapy: No - Surgical History Surgery Procedure, Year, and Place: dialysis port x2 Hx Anesthesia Reactions: No - Immunization History Date of Tetanus Vaccine: Unknown Infectious Disease History: No Infectious Disease History: Denies: Hx Tuberculosis, Traveled Outside the [place] in Last 30 Days - Family History Known Family History: Negative: Cardiac Disease, Hypertension, Diabetes - Social History Alcohol Use: None Hx Substance Use: No Substance Use Type: Reports: None Hx Tobacco Use: Yes Smoking Status (MU): Former Smoker Type: Cigarettes Amount Used/How Often: not much, only while in college Have You Smoked in the Last Year: No Review of Systems Positive: Other - general malaise Eyes: Other - vision deficit ENT: Negative Cardiovascular: Negative Positive: Shortness Of Breath Positive: Nausea Genitourinary: Negative Musculoskeletal: Negative Skin: Negative Neurological: Other - confusion Psychological: Normal All Other Systems Reviewed And Are Negative: Yes Physical Exam - Summary Physical Exam Summary: Appearance: The patient is well-nourished in no acute distress and in no acute pain. Skin: The skin is warm and dry and skin color reflects adequate perfusion. HEENT: The head is normocephalic and atraumatic. The pupils are equal and reactive. The conjunctivae are clear and without drainage. Nares are patent and without drainage. Mouth reveals moist mucous membranes and the throat is without erythema and exudate. The external ears are intact. The ear canals are patent and without drainage. The tympanic membranes are intact. Neck: The neck is supple with full range of motion and non-tender. There are no carotid bruits. There is no neck vein distension. Respiratory: Chest is non-tender. Breath sounds are symmetrical and equal. There are crackles in both lung curry. Cardiovascular: Heart is regular rate and rhythm. There is possibly a soft systolic ejection murmur. There is mild pitting edema and pulses are symmetrical and equal. Abdomen: The abdomen is soft and non-tender. There are normal bowel sounds heard in all four quadrants and there is no organomegaly palpated. Musculoskeletal: There is no back tenderness noted. Extremities are non-tender with full range of motion. There is good capillary refill. There is no peripheral edema or calf tenderness elicited. Neurological: Patient is alert and oriented to person, place and time. The patient has symmetrical motor strength in all four extremities. Cranial nerves are grossly intact. Deep tendon reflexes are symmetrical and equal in all four extremities. Psychiatric: The patient has an appropriate affect and does not exhibit any anxiety or depression. Triage Information Reviewed: Yes Vital Signs On Initial Exam: Initial Vitals Temp Pulse Resp BP Pulse Ox 98.3 F 69 20 179/92 99 12/24/17 12:09 12/24/17 12:09 12/24/17 12:09 12/24/17 12:09 12/24/17 12:09 Vital Signs Reviewed: Yes Diagnostics - Vital Signs Vital Signs Temp Pulse Resp BP Pulse Ox 12/24/17 12:09 98.3 F 69 20 179/92 99 - Laboratory Result Diagrams: 12/24/17 12:37 12/24/17 12:37 Lab Statement: Any lab studies that have been ordered have been reviewed, and results considered in the medical decision making process. - Radiology CXR Xray Interpretation: Positive (See Comments) - #. Alveolar and interstitial pulmonary edema with associated moderate pleural effusions and basilar atelectasis without significant interval change. #. Probable underlying chronic obstructive pulmonary disease. Radiology Interpretation Completed By: Radiologist - EKG 1 EKG Interpretation: 12:32 - NSR @ 65 BPM. LVH. EKG Comparison: No Significant Change - 09/16/17 Re-Evaluation - Re-Evaluation 1 Re-Evaluation Time: 14:30 Comment: Pt is asleep. Spoke with pt's son Complex Multi-Symp Course/Dx Course Of Treatment: Ms. Charles presents to the emergency department stating that ever since she was converted from CAPD to hemodialysis about 2 weeks ago, she hasn't felt right. Her complaints are numerous and vague but one of them is shortness of breath. She was worked up here with labs and chest x-ray and she does have some pulmonary edema. Her labs and chest x-ray do not look any different than her previous values and she looks very comfortable lying flat in the bed sleeping. I spoke with Dr. Bianchi who knows her well and he reviewed her results also. He felt that she could go home and he would follow her up. - Diagnoses Provider Diagnoses: Weakness - Physician Notifications Discussed Care Of Patient With: Jet Bianchi Time Discussed With Above Provider: 13:30 Discharge - Sign-Out/Discharge Documenting (check all that apply): Patient Departure - Discharge Plan Condition: Stable Disposition: HOME Patient Education Materials: Weakness (ED) Referrals: Letty Duffy MD [Primary Care Provider] - () Jet Bianchi MD [Medical Doctor] - 3 Days (PLEASE F/U IN 2-3 DAYS) Additional Instructions: RETURN TO THE ED FOR CHANGING/WORSENING SYMPTOMS - Billing Disposition and Condition Condition: STABLE Disposition: Home
[2017-12-24 12:52] LABS: ABS Basophils 0.1 10^3/ul (0-0.2); ABS Eosinophils 0.4 10^3/ul (0-0.6); ABS Monocytes 0.6 10^3/ul (0-0.8); ABS Neutrophils 3.8 10^3/ul (1.5-7.7); ABS Nucleated RBC 0 10^3/ul; Eosinophil % 6.8 % (0-6); Hematocrit 28 % (35-47); Hemoglobin 9.3 g/dl (12.0-16.0); Lymphocyte % 17.4 % (25-47); Mean Corpuscular HGB Conc 33 g/dl (31-36); Mean Corpuscular Hemoglobin 30 pg (27-31); Mean Corpuscular Volume 91 fL (80-97); Nucleated Red Blood Cells % 0; Platelet Count 203 10^3/ul (150-450); Red Blood Count 3.13 10^6/ul (4.00-5.40); Red Cell Distribution Width 18 % (10.5-15); White Blood Count 5.9 10^3/ul (3.5-10.8)
[2017-12-24 13:10] LABS: EGFR Non-African American 12.7 (>60)
--- NOTE | 2017-12-24 13:20 | RAD ---
INDICATION: Shortness of breath for 2 months. Coronary artery disease; previous myocardial infarction. History of tobacco use. COMPARISON: June 14, 2017 TECHNIQUE: Dual energy PA and routine lateral views of the chest were obtained. REPORT: Distal tip of tunneled RIGHT chest wall central venous catheter is at the level of the RIGHT atrium. Cardiomegaly, prominent ill-defined central pulmonary vasculature, mild predominant perihilar alveolar opacities, and diffuse prominence of interstitial markings with peripheral thickened interlobular septa. Small bilateral dependent pleural effusions with proportional basilar atelectasis. Healed bilateral rib fractures. IMPRESSION: #. Alveolar and interstitial pulmonary edema with associated moderate pleural effusions and basilar atelectasis without significant interval change. #. Probable underlying chronic obstructive pulmonary disease.
[2017-12-24 15:23] VITALS: BP 193/100
== END 2017-12-24 18:00 | disposition home or self-care (01) ==
LOC: ED 12:05
DX: R53.1 Weakness (principal); J90 Pleural effusion, not elsewhere classified; J98.11 Atelectasis; Q61.3 Polycystic kidney, unspecified; D64.9 Anemia, unspecified; J81.1 Chronic pulmonary edema; I51.7 Cardiomegaly; I12.0 Hypertensive chronic kidney disease with stage 5 chronic kidney disease or end stage renal disease; N18.6 End stage renal disease; M06.9 Rheumatoid arthritis, unspecified; Z86.73 Personal history of transient ischemic attack (TIA), and cerebral infarction without residual deficits; Z99.2 Dependence on renal dialysis; Z79.02 Long term (current) use of antithrombotics/antiplatelets; Z79.899 Other long term (current) drug therapy; Z88.5 Allergy status to narcotic agent; Z87.891 Personal history of nicotine dependence
CPT/HCPCS: 36415; 71046; 80053; 83605; 83735; 83880; 84100; 84484; 85025; 86140; 93005; 99284

== ENCOUNTER 2018-02-12 11:01 | Emergency (ER) | payer MEDICAID, MEDICARE ==
[2018-02-12] MEDS ORDERED: Amoxicillin/Clavulanate TAB* 875 MG PO ONE (12:02)
[2018-02-12 12:38] LABS: ABS Basophils 0.1 10^3/ul (0-0.2); ABS Eosinophils 0.5 10^3/ul (0-0.6); ABS Lymphocytes 0.6 10^3/ul (1.0-4.8); ABS Monocytes 0.7 10^3/ul (0-0.8); ABS Neutrophils 4.8 10^3/ul (1.5-7.7); ABS Nucleated RBC 0 10^3/ul; Eosinophil % 8.1 % (0-6); Hematocrit 33 % (35-47); Hemoglobin 10.2 g/dl (12.0-16.0); Lymphocyte % 8.5 % (25-47); Mean Corpuscular HGB Conc 31 g/dl (31-36); Mean Corpuscular Hemoglobin 28 pg (27-31); Mean Corpuscular Volume 90 fL (80-97); Nucleated Red Blood Cells % 0; Platelet Count 224 10^3/ul (150-450); Red Blood Count 3.64 10^6/ul (4.00-5.40); Red Cell Distribution Width 16 % (10.5-15); White Blood Count 6.7 10^3/ul (3.5-10.8)
--- NOTE | 2018-02-12 12:46 | RAD ---
INDICATION: 1 week of right ear pain with reported red/brown discharge from the right ear. COMPARISON: CTA of the head and neck November 01, 2010 TECHNIQUE: Contiguous axial sections of the axial images of the sinuses were obtained and reconstructed in the coronal and sagittal planes. FINDINGS: There is mild mucosal thickening of the bilateral sphenoid sinuses. There is mild mucosal thickening of the right ethmoid air cells. There is very mild mucosal thickening of the dependent-most bilateral maxillary sinuses. There is complete opacification of the right frontal sinuses. There is complete opacification of the right mastoid air cells as well as opacification of the external auditory canal. The temporal bones are grossly intact. Encephalomalacia at the right medial posterior aspect of the temporal lobe and occipital lobe corresponds to the acute infarction documented on the November 26, 2017 MRI of the brain. The remaining visualized brain is grossly normal. IMPRESSION: 1. Complete mastoid air cell effusion and opacification of the right external auditory canal is consistent with mastoiditis. 2. Mild to moderate paranasal sinus mucosal disease and complete opacification of the right frontal sinus. 3. Right-sided encephalomalacia corresponds to the acute infarction seen on the November 26, 2017 MRI the brain.
[2018-02-12 12:50] LABS: EGFR Non-African American 10.7 (>60)
[2018-02-12] MEDS ORDERED: Ciproflox/Dexameth OTIC.SUSP* 7.5 ML BTL RIGHT EAR ONE (13:19)
[2018-02-12 14:22] VITALS: BP 186/91
--- NOTE | 2018-02-12 15:27 | ED ---
Throat Pain/Nasal Congestion - HPI Summary HPI Summary: Patient is a 57-year-old female presenting to the ED from [facility] with a 1.5 week history of serous and purulent drainage from the right ear. She was placed on ofloxacin last week by her HEALTH CARE TECHNICIAN. The ear continues to have purulent drainage and serosanguineous fluid. Sitting was fluid is new over the past several days, but serous fluid has been present 1.5 weeks. She is endorsing pain to the mastoid area. She also is stating this is causing her to have some vertigo symptoms. She has multiple health complications, however no obvious history of ear infections. Patient is immunocompromised. - History of Current Complaint Chief Complaint: EDEarPain Time Seen by Provider: 02/12/18 11:26 Hx Obtained From: Patient, Family/Dietitian, Medical Records Onset/Duration: Gradual Onset Severity: Severe Associated Signs And Symptoms: Positive: Negative - Epiglottits Risk Factors Epiglottis Risk Factors: Negative - Allergies/Home Medications Allergies/Adverse Reactions: Allergies Allergy/AdvReac Type Severity Reaction Status Date / Time Adhesive Tape Allergy Hives Verified 02/12/18 11:26 codeine AdvReac GI Upset Verified 02/12/18 11:26 PMH/Surg Hx/FS Hx/Imm Hx Previously Healthy: No Endocrine/Hematology History: Reports: Hx Anemia - gets epogen shot Denies: Hx Blood Disorders, Hx Blood Transfusions, Hx Bone Marrow Disease, Hx Diabetes, Hx Systemic Lupus Erythematosus, Hx Thyroid Disease, Hx Unexplained Bleeding Cardiovascular History: Reports: Hx Aneurysm, Hx Cardiomegaly, Hx Congestive Heart Failure, Hx Coronary Artery Disease, Hx Hypercholesterolemia, Hx Hypertension, Other Cardiovascular Problems/Disorders - CAD, SD Denies: Hx Pacemaker/ICD, Hx Peripheral Vascular Disease Respiratory History: Reports: Hx Pleural Effusion Denies: Hx Chronic Obstructive Pulmonary Disease (COPD) - PT DENIES, Hx Pneumonia, Hx Pulmonary Edema, Hx Pulmonary Embolism, Hx Seasonal Allergies, Hx Sleep Apnea GI History: Reports: Hx Diverticulosis, Hx Gastroesophageal Reflux Disease, Hx Ulcer History: Reports: Hx Chronic Renal Failure, Hx Dialysis - PD, Hx Kidney Infection, Hx Renal Disease - ESRD, polycystic kidney disease, Other Problems /Disorders - polycystic kidney Denies: Hx Kidney Stones Musculoskeletal History: Reports: Hx Arthritis, Hx Rheumatoid Arthritis, Hx Back Problems, Other Musculoskeletal History - LEFT HIP FX Denies: Hx Osteoporosis Sensory History: Reports: Hx Contacts or Glasses - reading Denies: Hx Cataracts, Hx Eye Injury, Hx Eye Prosthesis, Hx Glaucoma, Hx Legally Blind, Hx Macular Degeneration, Hx Vision Problem, Hx Deafness, Hx Hearing Aid, Hx Hearing Problem Opthamlomology History: Reports: Hx Contacts or Glasses - reading Denies: Hx Cataracts, Hx Eye Injury, Hx Eye Prosthesis, Hx Glaucoma, Hx Legally Blind, Hx Macular Degeneration, Hx Vision Problem Neurological History: Reports: Hx CVA, Other Neuro Impairments/Disorders - brain aneurism x5 per pt Denies: Hx Dementia, Hx Developmental Delay, Hx Headaches, Hx Migraine, Hx Nerve Disease, Hx Seizures Psychiatric History: Reports: Hx Anxiety, Hx Depression Denies: Hx Panic Disorder, Hx Post Traumatic Stress Disorder, Other Psychiatric Issues/Disorders - Cancer History Hx Chemotherapy: No - Surgical History Surgery Procedure, Year, and Place: dialysis port x2 Hx Anesthesia Reactions: No - Immunization History Date of Tetanus Vaccine: Unknown Immunizations Up to Date: Yes Infectious Disease History: No Infectious Disease History: Denies: Hx Tuberculosis, Traveled Outside the [place] in Last 30 Days - Family History Known Family History: Negative: Cardiac Disease, Hypertension, Diabetes - Social History Occupation: Unemployed Lives: [facility] Alcohol Use: None Hx Substance Use: No Substance Use Type: Reports: None Hx Tobacco Use: Yes Smoking Status (MU): Former Smoker Type: Cigarettes Amount Used/How Often: not much, only while in college Have You Smoked in the Last Year: No Review of Systems Constitutional: Negative Negative: Fever, Chills, Fatigue, Skin Diaphoresis Positive: Ear Ache Negative: Palpitations, Chest Pain Negative: Shortness Of Breath, Cough Negative: Abdominal Pain, Vomiting, Diarrhea, Nausea Genitourinary: Negative Positive: no symptoms reported, see HPI Negative: Arthralgia, Myalgia Skin: Negative Neurological: Negative All Other Systems Reviewed And Are Negative: Yes Physical Exam Triage Information Reviewed: Yes Vital Signs On Initial Exam: Initial Vitals Temp Pulse Resp BP Pulse Ox 98 F 62 20 200/97 100 02/12/18 11:10 02/12/18 11:10 02/12/18 11:10 02/12/18 11:10 02/12/18 11:10 Vital Signs Reviewed: Yes Appearance: Positive: Ill-Appearing, Thin, Cachectic Skin: Positive: Skin Color Reflects Adequate Perfusion Head/Face: Positive: Normal Head/Face Inspection Eyes: Positive: EOMI, HEVER, Conjunctiva Clear ENT: Positive: Other - Right TM clear drainage with serosanguineous fluid with air bubbles Neck: Positive: Supple, No Lymphadenopathy Respiratory/Lung Sounds: Positive: Clear to Auscultation, Breath Sounds Present Cardiovascular: Positive: RRR, Pulses are Symmetrical in both Upper and Lower Extremities Musculoskeletal: Positive: Normal, Strength/ROM Intact - At baseline per patient Neurological: Positive: Speech Normal Psychiatric: Positive: Normal, Affect/Mood Appropriate AVPU Assessment: Alert Diagnostics - Vital Signs Vital Signs Temp Pulse Resp BP Pulse Ox 02/12/18 14:31 98.2 F 62 18 186/91 98 02/12/18 14:19 64 18 186/91 98 02/12/18 14:10 61 14 195/93 96 02/12/18 13:39 61 15 183/93 99 02/12/18 13:09 57 13 186/96 96 02/12/18 11:39 64 15 201/97 100 02/12/18 11:20 62 22 177/97 100 02/12/18 11:10 98 F 62 20 200/97 100 - Laboratory Lab Results: Lab Results 02/12/18 02/12/18 Range/Units 12:17 12:18 WBC 6.7 (3.5-10.8) 10^3/ul RBC 3.64 L (4.00-5.40) 10^6/ul Hgb 10.2 L (12.0-16.0) g/dl Hct 33 L (35-47) % MCV 90 (80-97) fL MCH 28 (27-31) pg MCHC 31 (31-36) g/dl RDW 16 H (10.5-15) % Plt Count 224 (150-450) 10^3/ul MPV 8.0 (7.4-10.4) um3 Neut % (Auto) 71.8 (38-83) % Lymph % (Auto) 8.5 L (25-47) % [place] % (Auto) 10.7 H (0-7) % Eos % (Auto) 8.1 H (0-6) % Baso % (Auto) 0.9 (0-2) % Absolute Neuts (auto) 4.8 (1.5-7.7) 10^3/ul Absolute Lymphs (auto) 0.6 L (1.0-4.8) 10^3/ul Absolute Monos (auto) 0.7 (0-0.8) 10^3/ul Absolute Eos (auto) 0.5 (0-0.6) 10^3/ul Absolute Basos (auto) 0.1 (0-0.2) 10^3/ul Absolute Nucleated RBC 0 10^3/ul Nucleated RBC % 0 Sodium 138 (135-145) mmol/L Potassium 4.3 (3.5-5.0) mmol/L Chloride 98 L (101-111) mmol/L Carbon Dioxide 31 (22-32) mmol/L Anion Gap 9 (2-11) mmol/L BUN 36 H (6-24) mg/dL Creatinine 4.26 H (0.51-0.95) mg/dL Est GFR ( Amer) 13.0 (>60) Est GFR (Non-Af Amer) 10.7 (>60) BUN/Creatinine Ratio 8.5 (8-20) Glucose 87 (70-100) mg/dL Calcium 9.6 (8.6-10.3) mg/dL Total Bilirubin 0.30 (0.2-1.0) mg/dL AST 9 L (13-39) U/L ALT 9 (7-52) U/L Alkaline Phosphatase 95 (34-104) U/L Total Protein 5.8 L (6.4-8.9) g/dL Albumin 3.2 (3.2-5.2) g/dL Globulin 2.6 (2-4) g/dL Albumin/Globulin Ratio 1.2 (1-3) Result Diagrams: 02/12/18 12:17 02/12/18 12:18 Lab Statement: Any lab studies that have been ordered have been reviewed, and results considered in the medical decision making process. EENT Course/Dx - Course Course Of Treatment: On physical examination, there is serosanguineous drainage from the right ear. Otoscope examination there is fluid feel purulent drainage in the ear canal with air bubbles resembling a serous otitis externa. Despite her medications, this appears to be worsening. CT obtained which shows: IMPRESSION: 1. Complete mastoid air cell effusion and opacification of the right external auditory. canal is consistent with mastoiditis. 2. Mild to moderate paranasal sinus mucosal disease and complete opacification of the. right frontal sinus. 3. Right-sided encephalomalacia corresponds to the acute infarction seen on the November 262017 MRI the brain. Discussed case with Dr. Forman who said this is likely secondary to only the mastoid air cells and not a true mastoiditis affecting the bone. She has follow-up in the office tomorrow at 1:15. She will be placed on Augmentin by mouth twice daily as well as Ciprodex. - Diagnoses Provider Diagnoses: Otitis externa, Mastoiditis Discharge - Sign-Out/Discharge Documenting (check all that apply): Patient Departure - Discharge Plan Condition: Stable Disposition: HOME Prescriptions: Amoxicillin/Clavulanate TAB* [Augmentin TAB 875*] 875 mg PO BID #14 tab Referrals: Letty Duffy MD [Primary Care Provider] - Additional Instructions: Ciprodex: Instill 4 drops into affected ear(s) twice daily for 7 days Augmentin twice daily x 7 days: First dose at home is this evening Follow up TOMORROW as scheduled with ENT - Billing Disposition and Condition Condition: STABLE Disposition: Home
== END 2018-02-12 14:31 | disposition home or self-care (01) ==
LOC: ED 11:01
DX: H92.09 Otalgia, unspecified ear (principal); Z87.891 Personal history of nicotine dependence; H60.90 Unspecified otitis externa, unspecified ear; H70.90 Unspecified mastoiditis, unspecified ear
CPT/HCPCS: 36415; 70486; 80053; 85025; 99283; A9270-GY

== ENCOUNTER 2018-02-19 11:23 | Emergency (ER) | payer MEDICARE ==
--- OUTSIDE RECORDS SUMMARY | 2018-02-19 12:03 | XMS REPORT | Continuity of Care Document ---
:1960 External Reference #:[id number] Author Name Edilberto Forman MD Address [address] [place] [address] Care Team Providers Name Role Phone Edilberto Forman MD Care Team Information Higher Education Administrator Unavailable Payers Type Date Identification Numbers Payment Provider Subscriber Policy Number: [id number] Medicare-[facility] [employer] [place] PayID: [id number] [address] [place] [address] Policy Number: [id number] Medicaid/I [employer] [place] Group Name: 1 2 Insurance Primary PayID: [id number] [place] [address] Advance Directives Description No Information Available Problems Description No Information Family History Description No Information Available Social History Type Date Description Comments Sex Unknown Occupation Disabled Tobacco Use Start: Unknown End: Unknown Former Cigarette Smoker Tobacco Use Start: Unknown Never Smoked A Pipe Smokeless Tobacco Never Used Smokeless Tobacco Tobacco Use Start: Unknown End: Unknown Patient is a former smoker Smoking Status Reviewed: 02/13/18 Patient is a former smoker Allergies, Adverse Reactions, Alerts Date Description Reaction Status Severity Comments 02/13/2018 Codeine Active 02/13/2018 Tape Active Medications Medication Date Status Form Strength Qnty SIG Indications Ordering Provider Amoxicillin/Cl / Active Tablets 875-125mg Unknown avulanate 0000 Potassium Atorvastatin / Active Tablets 20mg Unknown Calcium 0000 Clopidogrel / Active Tablets 75mg Unknown Bisulfate 0000 Methadone HCL / Active Tablets 5mg Unknown 0000 Hydrocodone-Ac / Active Tablets 5-325mg Q6H prn Tash, etaminophen 0000 Jet Anthony Carvedilol / Active Tablets 25mg Jaquion, 0000 Jet Anthony Naproxen / Active Tablets ER 500mg Jaquion, Sodium ER 0000 24HR Jet Anthony Omeprazole / Active Capsules DR 20mg Tash, 0000 Jet Anthony Prazosin HCL / Active Capsules 2mg Unknown 0000 Renvela / Active Tablets 800mg Unknown 0000 Oxycodone-Acet / Active Tablets 5-325mg Unknown aminophen 0000 Enbrel / Active Soln Prefill 25mg/0.5ML Inject 1 Unknown 0000 Syringe Syringe Under The Skin Once A Week Tekturna / Active Tablets 300mg Jaquion, Jet Anthony Lorazepam / Active Tablets 2mg Hesson, 0000 Jet Anthony Loperamide HCL / Active Capsules 2mg Unknown 0000 Sertraline HCL / Active Tablets 50mg Benavides 0000 Letty GILES Ondansetron / Active Tablets 4mg Hesson, HCL 0000 Jet Anthony Miconazole / Active Cream 2% as Unknown Nitrate 0000 directed Aspirin 81 Low / Active Chewtabs 81mg daily Unknown Dose 0000 Calcitriol / Active Capsules 0.25mcg 1 by mouth Unknown 0000 every day Ciprodex / Active Suspension 0.3-0.1% 4 drops in Unknown 0000 right ear twice a day X 7 days Ofloxacin / Active Solution 0.3% 10 drops Unknown (Otic) 0000 to right ear bid X 14 days Tylenol / Active Tablets 325mg Q4H prn Unknown 0000 Immunizations Description No Information Available Vital Signs Description No Information Available Results Description No Information Available Procedures Description No Information Available Encounters Description No Information Available Plan of Treatment Future Appointment(s):02/20/2018 8:45 am - Edilberto Forman MD at [place], After 06/10/808 - Edilberto Forman [id number] Acute suppurative otitis media with spontaneous rupture of ear drum, right ear
[2018-02-19 12:55] LABS: ABS Basophils 0.1 10^3/ul (0-0.2); ABS Eosinophils 0.7 10^3/ul (0-0.6); ABS Lymphocytes 0.8 10^3/ul (1.0-4.8); ABS Neutrophils 8.5 10^3/ul (1.5-7.7); ABS Nucleated RBC 0 10^3/ul; Eosinophil % 6.2 % (0-6); Hematocrit 33 % (35-47); Hemoglobin 10.1 g/dl (12.0-16.0); Mean Corpuscular HGB Conc 31 g/dl (31-36); Mean Corpuscular Hemoglobin 27 pg (27-31); Mean Corpuscular Volume 87 fL (80-97); Mean Platelet Volume 7.7 um3 (7.4-10.4); Nucleated Red Blood Cells % 0; Platelet Count 269 10^3/ul (150-450); Red Blood Count 3.73 10^6/ul (4.00-5.40); Red Cell Distribution Width 17 % (10.5-15); White Blood Count 11.1 10^3/ul (3.5-10.8)
[2018-02-19 13:16] LABS: EGFR Non-African American 8.3 (>60)
--- NOTE | 2018-02-19 13:35 | RAD ---
INDICATION: Head injury. COMPARISON: Comparison is made with a prior CT of the brain from November 26, 2017. Correlation is also made with a prior MRI of the brain also from November 26, 2017. TECHNIQUE: Contiguous axial sections of the brain were obtained from the skull base to the vertex without contrast. FINDINGS: The ventricles, cisterns and sulci are enlarged consistent with diffuse atrophy. There are focal areas of decreased density in the periventricular white matter most consistent with old lacunar infarcts or chronic small vessel ischemic changes. There is a focal area of encephalomalacia present in the right medial occipital lobe consistent with an old posterior cerebral artery infarct. No other focal abnormality or mass effect is seen. There is no evidence for hemorrhage. No fracture is seen. There is opacification of a couple right ethmoid air cells and mild mucosal thickening within the sphenoid and frontal sinuses. There is complete opacification of the right mastoid air cells. IMPRESSION: 1. NO EVIDENCE FOR ACUTE INTRACRANIAL ABNORMALITY. 2. 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 3. NEW RIGHT MASTOID AIR CELL EFFUSION RECOMMEND CLINICAL CORRELATION FOR POSSIBLE MASTOIDITIS.
--- NOTE | 2018-02-19 13:45 | RAD ---
Indication: Head injury. CT of the cervical spine was obtained in the axial plane. Sagittal and coronal reconstructed images were obtained. Comparison is made with previous exam dated March 05, 2017. The skull base demonstrates no fracture. The C1 ring is intact. No evidence of fracture. 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 These are not significantly changed since previous examination. The remainder of the vertebral bodies appear normal in height. No compression fracture is noted. Degenerative disc disease at C5-C6 and C6-C7 is noted. Minimal spondylitic ridge is noted. IMPRESSION: No fracture of the cervical spine is noted. 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 These are unchanged. Degenerative disc disease at C5-C6 and C6-C7 unchanged from March 05, 2017.
--- NOTE | 2018-02-19 14:39 | ED ---
Head Injury - HPI Summary HPI Summary: Patient brought in by ambulance status post fall at her home prior to arrival. She reports she fell in the bathroom but does not recall the details of falling i.e. she's not sure if she tripped or got dizzy, etc. was (. She does recall striking her head but does not believe she lost consciousness. This was not witnessed however her son was in the house at the time. She does have a mild headache but more so she has neck pain. She denies radicular symptoms as well as numbness, tingling, weakness, visual change, nausea, vomiting. She has had ongoing balance issues and was actually discharged from [facility] yesterday for strength and conditioning rehabilitation. She does not feel like this helped as her strength and coordination are the same. During the course of her stay [facility], she developed an inner ear infection and was seen by Dr. Forman. She was placed on antibiotics 10 days ago and patient also reports she had ear toileting. She just completed her antibiotics couple of days ago. She has a follow-up in the next couple of days. It is unclear if her ear is better or worse. She denies fever, chills, difficulty hearing although she does admit she still has discomfort on the right side. With her fall, she additionally denies chest pain, back pain, lower extremity pain, abdominal pain. She initially told me she was due for dialysis tomorrow however it turns out she is due for dialysis today. She receives dialysis here at [facility] via Dr. Arriaga's care. Her son arrived later in the visit and filled in details of her fall from this morning. Reports he was in the house and she struck her head against the hard [place] floor. He also confirms that she does not seem to be stronger since leaving [facility]. And he exited provided the information about her inner ear infection with details of treatment. She reports patient seemed more confused earlier this morning immediately after the head injury and seems to be more alert and oriented at this time. He does admit she has good and bad days when it comes to her memory and recall. Today seems to be baseline for her. Furthermore, he has made arrangements for her to go back to rate is he does not feel that she is safe at home right now. - History Of Current Complaint Chief Complaint: EDHeadInjury Stated Complaint: FALL/RT ARM INJURY/HEAD INJURY Time Seen by Provider: 02/19/18 11:34 Hx Obtained From: Patient, Family/Resident Assistant - SON Pain Intensity: 2 - Allergies/Home Medications Allergies/Adverse Reactions: Allergies Allergy/AdvReac Type Severity Reaction Status Date / Time Adhesive Tape Allergy Hives Verified 02/19/18 11:53 codeine AdvReac GI Upset Verified 02/19/18 11:53 PMH/Surg Hx/FS Hx/Imm Hx Endocrine/Hematology History: Reports: Hx Anemia - gets epogen shot Denies: Hx Blood Disorders, Hx Blood Transfusions, Hx Bone Marrow Disease, Hx Diabetes, Hx Systemic Lupus Erythematosus, Hx Thyroid Disease, Hx Unexplained Bleeding Cardiovascular History: Reports: Hx Aneurysm, Hx Cardiomegaly, Hx Congestive Heart Failure, Hx Coronary Artery Disease, Hx Hypercholesterolemia, Hx Hypertension, Other Cardiovascular Problems/Disorders - CAD, CT, MURMUR Denies: Hx Pacemaker/ICD, Hx Peripheral Vascular Disease Respiratory History: Reports: Hx Chronic Obstructive Pulmonary Disease (COPD) - PT DENIES, Hx Pleural Effusion Denies: Hx Pneumonia, Hx Pulmonary Edema, Hx Pulmonary Embolism, Hx Seasonal Allergies, Hx Sleep Apnea GI History: Reports: Hx Diverticulosis, Hx Gastroesophageal Reflux Disease, Hx Ulcer History: Reports: Hx Chronic Renal Failure, Hx Dialysis - HEMODIALYSIS VIA [facility], Hx Kidney Infection, Hx Renal Disease - ESRD, polycystic kidney disease , Other Problems/Disorders - polycystic kidney Denies: Hx Kidney Stones Musculoskeletal History: Reports: Hx Arthritis, Hx Rheumatoid Arthritis, Hx Back Problems, Other Musculoskeletal History - LEFT HIP FX Denies: Hx Osteoporosis Sensory History: Reports: Hx Contacts or Glasses - reading Denies: Hx Cataracts, Hx Eye Injury, Hx Eye Prosthesis, Hx Glaucoma, Hx Legally Blind, Hx Macular Degeneration, Hx Vision Problem, Hx Deafness, Hx Hearing Aid, Hx Hearing Problem Opthamlomology History: Reports: Hx Contacts or Glasses - reading Denies: Hx Cataracts, Hx Eye Injury, Hx Eye Prosthesis, Hx Glaucoma, Hx Legally Blind, Hx Macular Degeneration, Hx Vision Problem Neurological History: Reports: Hx CVA, Other Neuro Impairments/Disorders - brain aneurism x5 per pt Denies: Hx Dementia, Hx Developmental Delay, Hx Headaches, Hx Migraine, Hx Nerve Disease, Hx Seizures Psychiatric History: Reports: Hx Anxiety, Hx Depression Denies: Hx Panic Disorder, Hx Post Traumatic Stress Disorder, Other Psychiatric Issues/Disorders - Cancer History Hx Chemotherapy: No - Surgical History Surgery Procedure, Year, and Place: dialysis port x2 Hx Anesthesia Reactions: No - Immunization History Date of Tetanus Vaccine: Unknown Immunizations Up to Date: Yes Infectious Disease History: No Infectious Disease History: Denies: Hx Tuberculosis, Traveled Outside the US in Last 30 Days - Family History Known Family History: Negative: Cardiac Disease, Hypertension, Diabetes - Social History Lives: With Family - WITH SON BUT ALSO [place] Alcohol Use: None Hx Substance Use: No Substance Use Type: Reports: None Hx Tobacco Use: Yes Smoking Status (MU): Former Smoker Type: Cigarettes Amount Used/How Often: not much, only while in college Have You Smoked in the Last Year: No Review of Systems Constitutional: Negative Positive: Fatigue. Negative: Fever, Chills Eyes: Negative Negative: Photophobia, Blurred Vision, Diplopia Positive: Sore Throat - mouth is very dry, Ear Ache - Rt side. Negative: Epistaxis, Dental Pain, Nasal Discharge Cardiovascular: Negative Respiratory: Negative Gastrointestinal: Negative Positive: no symptoms reported Positive: Arthralgia, Myalgia Skin: Other - Rt UE skin tears; baseline bruising Neurological: Other - balance issues (ongoing) Positive: Headache - mild Psychological: Normal All Other Systems Reviewed And Are Negative: Yes Physical Exam Triage Information Reviewed: Yes Vital Signs On Initial Exam: Initial Vitals Temp Pulse Resp BP Pulse Ox 98.9 F 72 12 126/88 95 02/19/18 11:33 02/19/18 11:33 02/19/18 11:33 02/19/18 11:33 02/19/18 11:33 Vital Signs Reviewed: Yes Appearance: Positive: Ill-Appearing, Cachectic Skin: Positive: Warm, Dry - multiple areas of macular purpuric ecchymosis, general gerardo color but skin is warm Head/Face: Positive: Normal Head/Face Inspection - atraumatic Eyes: Positive: EOMI, HEVER - no photophobia, Other: - icreric sclera ENT: Positive: Other - dry oral mucosa and lips - scaling. Negative: Nasal drainage Neck: Positive: Supple, Tenderness @ - in soft collar Respiratory/Lung Sounds: Positive: Breath Sounds Present. Negative: Rales, Rhonchi, Wheezes Cardiovascular: Positive: Murmur, S1, S2. Negative: Leg Edema Left, Leg Edema Right Abdomen Description: Positive: Nontender, No Organomegaly, Soft Bowel Sounds: Positive: Present Musculoskeletal: Positive: Normal, Strength/ROM Intact, Other - Lt anterior knee hematoma (pt reports she had this already) Neurological: Positive: CN Intact II-III, Other - Alter to person, place and mostly time although response are delayed at times - this may be from hearing reduction and/or difficulty concentrating - son reports this is baseline Diagnostics - Vital Signs Vital Signs Temp Pulse Resp BP Pulse Ox 02/19/18 13:45 68 18 195/82 96 02/19/18 12:45 9 183/95 02/19/18 12:15 20 188/90 02/19/18 11:45 17 186/96 02/19/18 11:33 98.9 F 72 12 126/88 95 - Laboratory Lab Results: Lab Results 02/19/18 02/19/18 02/19/18 Range/Units 12:40 12:40 12:40 WBC 11.1 H (3.5-10.8) 10^3/ul RBC 3.73 L (4.00-5.40) 10^6/ul Hgb 10.1 L (12.0-16.0) g/dl Hct 33 L (35-47) % MCV 87 (80-97) fL MCH 27 (27-31) pg MCHC 31 (31-36) g/dl RDW 17 H (10.5-15) % Plt Count 269 (150-450) 10^3/ul MPV 7.7 (7.4-10.4) um3 Neut % (Auto) 76.7 (38-83) % Lymph % (Auto) 7.0 L (25-47) % Gaines % (Auto) 8.8 H (0-7) % Eos % (Auto) 6.2 H (0-6) % Baso % (Auto) 1.3 (0-2) % Absolute Neuts (auto) 8.5 H (1.5-7.7) 10^3/ul Absolute Lymphs (auto) 0.8 L (1.0-4.8) 10^3/ul Absolute Monos (auto) 1.0 H (0-0.8) 10^3/ul Absolute Eos (auto) 0.7 H (0-0.6) 10^3/ul Absolute Basos (auto) 0.1 (0-0.2) 10^3/ul Absolute Nucleated RBC 0 10^3/ul Nucleated RBC % 0 Sodium 138 (135-145) mmol/L Potassium 5.0 (3.5-5.0) mmol/L Chloride 101 (101-111) mmol/L Carbon Dioxide 25 (22-32) mmol/L Anion Gap 12 H (2-11) mmol/L BUN 50 H (6-24) mg/dL Creatinine 5.34 H (0.51-0.95) mg/dL Est GFR ( Amer) 10.0 (>60) Est GFR (Non-Af Amer) 8.3 (>60) BUN/Creatinine Ratio 9.4 (8-20) Glucose 74 (70-100) mg/dL Lactic Acid 0.5 (0.5-2.0) mmol/L Calcium 9.4 (8.6-10.3) mg/dL Magnesium 2.2 (1.9-2.7) mg/dL Total Bilirubin 0.30 (0.2-1.0) mg/dL AST 13 (13-39) U/L ALT 10 (7-52) U/L Alkaline Phosphatase 72 (34-104) U/L Troponin I 0.03 (<0.04) ng/mL C-Reactive Protein 55.99 H (<8.01) mg/L B-Natriuretic Peptide ( - 100) pg/mL Total Protein 5.8 L (6.4-8.9) g/dL Albumin 3.1 L (3.2-5.2) g/dL Globulin 2.7 (2-4) g/dL Albumin/Globulin Ratio 1.1 (1-3) TSH 3.79 (0.34-5.60) mcIU/mL 02/19/18 Range/Units 12:40 WBC (3.5-10.8) 10^3/ul RBC (4.00-5.40) 10^6/ul Hgb (12.0-16.0) g/dl Hct (35-47) % MCV (80-97) fL MCH (27-31) pg MCHC (31-36) g/dl RDW (10.5-15) % Plt Count (150-450) 10^3/ul MPV (7.4-10.4) um3 Neut % (Auto) (38-83) % Lymph % (Auto) (25-47) % Gaines % (Auto) (0-7) % Eos % (Auto) (0-6) % Baso % (Auto) (0-2) % Absolute Neuts (auto) (1.5-7.7) 10^3/ul Absolute Lymphs (auto) (1.0-4.8) 10^3/ul Absolute Monos (auto) (0-0.8) 10^3/ul Absolute Eos (auto) (0-0.6) 10^3/ul Absolute Basos (auto) (0-0.2) 10^3/ul Absolute Nucleated RBC 10^3/ul Nucleated RBC % Sodium (135-145) mmol/L Potassium (3.5-5.0) mmol/L Chloride (101-111) mmol/L Carbon Dioxide (22-32) mmol/L Anion Gap (2-11) mmol/L BUN (6-24) mg/dL Creatinine (0.51-0.95) mg/dL Est GFR ( Amer) (>60) Est GFR (Non-Af Amer) (>60) BUN/Creatinine Ratio (8-20) Glucose (70-100) mg/dL Lactic Acid (0.5-2.0) mmol/L Calcium (8.6-10.3) mg/dL Magnesium (1.9-2.7) mg/dL Total Bilirubin (0.2-1.0) mg/dL AST (13-39) U/L ALT (7-52) U/L Alkaline Phosphatase (34-104) U/L Troponin I (<0.04) ng/mL C-Reactive Protein (<8.01) mg/L B-Natriuretic Peptide 887 H ( - 100) pg/mL Total Protein (6.4-8.9) g/dL Albumin (3.2-5.2) g/dL Globulin (2-4) g/dL Albumin/Globulin Ratio (1-3) TSH (0.34-5.60) mcIU/mL Result Diagrams: 02/19/18 12:40 02/19/18 12:40 Lab Statement: Any lab studies that have been ordered have been reviewed, and results considered in the medical decision making process. Re-Evaluation - Re-Evaluation First Eval Change: Improved Head Injury Course/Dx Course Of Treatment: Brain and cervical CT's ordered to assess for hemorrhage, fx, dislocation, and these were not identified but a mastoiditis of the Rt side was found. She reports struggling with a recent Rt sided ear infection (see HPI) . She just completed anbx a few days ago and has f/u w/ Dr. Forman in couple of days. She was also recently d/c'd from [facility] but son is going to have her readmitted as he does not feel she's ready to be at home yet. Her labs indicate need for dialysis. Discussed w/ nurse who reports dialysis called to notify us dialysis cannot take her today. Spoke w/ Dr. Bianchi - based on the fact that her volume is not overloaded and her electrolytes are WNL, she can wait until Saturday for dialysis. She needs to be on 2gram potassium and 2 gram sodium restriction as well as 1800cc fluid restriction. Discussed w/ pt. Spoke w/ Dr. King at ENT - pt was seen on 02/14 and given anbx for mastoiditis. Apparently she had a CT 1 week ago which revealed similar results. No needs for additional tx at this time. She will keep f/u w/ Dr. Forman tomorrow. Spoke w/ son to update on d/c plan - he will call [facility] to confirm bed and transport. Pt aware and agrees w/ plan. - Diagnoses Provider Diagnoses: Fall from standing, Concussion, End stage renal disease, Mastoiditis of right side, Cervical strain, acute, Skin tear of left upper extremity Discharge - Sign-Out/Discharge Documenting (check all that apply): Patient Departure - Discharge Plan Condition: Stable Disposition: HOME Patient Education Materials: Cervical Strain (ED), Concussion (ED), Fall Prevention for Older Adults (ED), Skin Tear (ED), End Stage Kidney Disease (ED) , Mastoiditis (ED) Referrals: [place] [facility], [[facility], APPLICATION, OTHER] - Edilberto Forman MD [Medical Doctor] - Jet Bianchi MD [Medical Doctor] - Additional Instructions: You are being discharged to [facility]. Once cleared by your medical staff, you need to restart your strength and conditioning program although may need a change your regimen as you and your son have reported limited improvement since there for strength and conditioning last time. Currently, you will be on concussion protcol until cleared by PCP. This includes: Rest both physically and cognitively for 48 hours - avoid screens (ie. TV, computer, phone, etc), focusing (ie. reading, holding lengthy or in depth conversation), exertion (ie. carrying heavy objects, going upstairs/hills, jogging, etc) and stimulants (ie. caffeine such as chocolate, coffee, tea, soda , alcohol, etc). Stay hydrated within fluid restrictions and well nourished within food restrictions for renal function. Follow-up with PCP in 2 days for recheck of concussion symptoms. If worse in the meantime, return to the ED. Call today to schedule follow-up. Additionally: *You also need dialysis Saturday per Dr. Bianchi. Call today/tomorrow to confirm appointment. Limit your diet in the meantime regarding sodium, potassium and fluids (see education for details). *Keep appointment with Dr. Forman for tomorrow to recheck mastoiditis. Keep your skin tear clean and covered until healed. Gently washs daily with soap and water - rinse well, pat dry with clean cloth and reapply xeroform dressing with gauze. *If you develop redness, swelling, streaking or purulent drainage, fever or chills, return to the ED - Billing Disposition and Condition Condition: STABLE Disposition: Home
[2018-02-19 18:49] VITALS: BP 168/87
== END 2018-02-19 18:48 | disposition home or self-care (01) ==
LOC: ED 11:23
DX: S06.0X0A Concussion without loss of consciousness, initial encounter (principal); S41.111A Laceration without foreign body of right upper arm, initial encounter; S16.1XXA Strain of muscle, fascia and tendon at neck level, initial encounter; W18.30XA Fall on same level, unspecified, initial encounter; Y93.9 Activity, unspecified; Y92.002 Bathroom of unspecified non-institutional (private) residence as the place of occurrence of the external cause; N18.6 End stage renal disease; Z99.2 Dependence on renal dialysis; H70.91 Unspecified mastoiditis, right ear; Z87.891 Personal history of nicotine dependence; J02.9 Acute pharyngitis, unspecified; Z88.5 Allergy status to narcotic agent; Z91.048 Other nonmedicinal substance allergy status; R53.83 Other fatigue
CPT/HCPCS: 36415; 70450; 72125; 80053; 83605; 83735; 83880; 84443; 84484; 85025; 86140; 93005; 99283

== ENCOUNTER 2018-02-28 19:43 | Inpatient (IN) | payer MEDICARE ==
[2018-02-28] MEDS ORDERED: Cefepime(*) 2 GM in NS 0.9% 50 ML* 50 ML IVPB ONE (20:31)
[2018-02-28] MEDS ORDERED: Levofloxacin 750 MG IVPREMIX(* 750 MG/150 ML BAG IVPB ONE (20:31)
--- OUTSIDE RECORDS SUMMARY | 2018-02-28 20:34 | XMS REPORT | Continuity of Care Document ---
:1960 External Reference #:[id number] Author Name Edilberto Forman MD Address [address] [place] [address] Care Team Providers Name Role Phone Edilberto Forman MD Care Team Information Camp Coordinator Unavailable Payers Type Date Identification Numbers Payment Provider Subscriber Policy Number: [id number] Medicare-[facility] Govn [facility] Beth Charles PayID: [id number] [address] [place] [address] Policy Number: [id number] Medicaid/I Beth Charles Group Name: 1 2 Insurance Primary PayID: [id number] [place] [address] Advance Directives Description No Information Available Problems [...] Form Strength Qnty SIG Indications Ordering Provider Ciprodex 02/27/ Active Suspension 0.3-0.1% 7.500 4 drops Edilberto 2017 ml right ear Graciela Forman twice a day Clopidogrel / Active Tablets 75mg Unknown Bisulfate 0000 Hydrocodone-Eddie / Active Tablets 5-325mg Q6H prn Tash taminophen 0000 Jet Anthony Carvedilol / Active Tablets 25mg Jaquion, 0000 Jet Anthony Tekturna / Active Tablets 300mg Tash, 0000 Jet Anthony Lorazepam / Active Tablets 2mg Tash, 0000 Jet Anthony Ondansetron HCL / Active Tablets 4mg Jaquion, Gabrielle Calcitriol / Active Capsules 0.25mcg 1 by Unknown 0000 mouth every day Lactobacillus / Active Packet Unknown 0000 Amoxicillin/Cla / Hx Tablets 875-125mg Unknown vulanate 0000 - Potassium 2017 Atorvastatin 00/ Hx Tablets 20mg Unknown Calcium 2017 Methadone HCL / Hx Tablets 5mg Unknown 2017 Naproxen Sodium / Hx Tablets ER 500mg Hesson, ER 0000 - 24HR M.DMartin 2017 Omeprazole / Hx Capsules DR 20mg Hesson, M.DMartin 2017 Prazosin HCL / Hx Capsules 2mg Unknown 2017 Renvela / Hx Tablets 800mg Unknown 2017 Oxycodone-Aceta / Hx Tablets 5-325mg Unknown minophen - 2017 Enbrel / Hx Soln Prefill 25mg/0.5ML Inject 1 Unknown 0000 - Syringe Syringe Under The 2018 Skin Once A Week Loperamide HCL / Hx Capsules 2mg Unknown 2017 Sertraline HCL / Hx Tablets 50mg Clive 0000 - Letty GILES 2017 Miconazole / Hx Cream 2% as Unknown Nitrate 0000 - directed 2017 Aspirin 81 Low / Hx Chewtabs 81mg daily Unknown Dose - 2017 Ciprodex / Hx Suspension 0.3-0.1% 4 drops Unknown 0000 - in right ear twice 2018 a day X 7 days Ofloxacin / Hx Solution 0.3% 10 drops Unknown (Otic) 0000 - to right ear bid X 2018 14 days Tylenol / Hx Tablets 325mg Q4H prn Unknown 2017 Immunizations Description No Information Available Vital Signs Description No Information Available Results Description No Information Available Procedures Description No Information Available Encounters Type Date Location Provider Dx Diagnosis Office Visit 02/27/2018 Jessica Hancock H66.011 Acute suppr 9:00a 06/10/07 MD [facility] otitis media w spon rupt ear drum, right ear Office Visit 02/13/2018 [place] Edilberto Owens H66.011 Acute suppr 1:30p 06/10/07 MD [facility] otitis media w spon rupt ear drum, right ear Plan of Treatment 02/27/2018 - Edilberto Forman, H66.011 Acute suppurative otitis media with spontaneous rupture of eNew Labs:Wound Culture/Sensi, Ordered: 02/27/18
--- NOTE | 2018-02-28 20:38 | ED ---
Respiratory - HPI Summary HPI Summary: This patient is a 57 year old female presenting to [facility] with a chief complaint of SOB since earlier today. Patient is from the [facility]. Attending doctor present found infiltrates on bilateral lungs when patient complained of SOB so patient was transferred to ED. At baseline, patient is SOB and lethargic, but responds to her name. Patient is a Level 5 Caveat: AMS - History of Current Complaint Chief Complaint: EDShortnessOfBreath Stated Complaint: POSS CHF Time Seen by Provider: 02/28/18 20:25 Hx Obtained From: EMS Hx From Patient Unobtainable Due To: Altered Mental Status Onset/Duration: Still Present Timing: Constant Current Severity: Severe Pain Intensity: 0 Character: Dyspnea at Rest Sputum Amount: None Associated Signs and Symptoms: SOB - Allergy/Home Medications Allergies/Adverse Reactions: Allergies Allergy/AdvReac Type Severity Reaction Status Date / Time Adhesive Tape Allergy Hives Verified 02/19/18 11:53 codeine AdvReac GI Upset Verified 02/19/18 11:53 PMH/Surg Hx/FS Hx/Imm Hx Previously Healthy: No - Level 5 Caveat: AMS Endocrine/Hematology History: Reports: Hx Anemia - gets epogen shot Denies: Hx Blood Disorders, Hx Blood Transfusions, Hx Bone Marrow Disease, Hx Diabetes, Hx Systemic Lupus Erythematosus, Hx Thyroid Disease, Hx Unexplained Bleeding Cardiovascular History: Reports: Hx Aneurysm, Hx Cardiomegaly, Hx Congestive Heart Failure, Hx Coronary Artery Disease, Hx Hypercholesterolemia, Hx Hypertension, Other Cardiovascular Problems/Disorders - CAD, [place], MURMUR Denies: Hx Pacemaker/ICD, Hx Peripheral Vascular Disease Respiratory History: Reports: Hx Chronic Obstructive Pulmonary Disease (COPD) - PT DENIES, Hx Pleural Effusion Denies: Hx Pneumonia, Hx Pulmonary Edema, Hx Pulmonary Embolism, Hx Seasonal Allergies, Hx Sleep Apnea GI History: Reports: Hx Diverticulosis, Hx Gastroesophageal Reflux Disease, Hx Ulcer History: Reports: Hx Chronic Renal Failure, Hx Dialysis - HEMODIALYSIS VIA [facility], Hx Kidney Infection, Hx Renal Disease - ESRD, polycystic kidney disease , Other Problems/Disorders - polycystic kidney Denies: Hx Kidney Stones Musculoskeletal History: Reports: Hx Arthritis, Hx Rheumatoid Arthritis, Hx Back Problems, Other Musculoskeletal History - LEFT HIP FX Denies: Hx Osteoporosis Sensory History: Reports: Hx Contacts or Glasses - reading Denies: Hx Cataracts, Hx Eye Injury, Hx Eye Prosthesis, Hx Glaucoma, Hx Legally Blind, Hx Macular Degeneration, Hx Vision Problem, Hx Deafness, Hx Hearing Aid, Hx Hearing Problem Opthamlomology History: Reports: Hx Contacts or Glasses - reading Denies: Hx Cataracts, Hx Eye Injury, Hx Eye Prosthesis, Hx Glaucoma, Hx Legally Blind, Hx Macular Degeneration, Hx Vision Problem Neurological History: Reports: Hx CVA, Other Neuro Impairments/Disorders - brain aneurism x5 per pt Denies: Hx Dementia, Hx Developmental Delay, Hx Headaches, Hx Migraine, Hx Nerve Disease, Hx Seizures Psychiatric History: Reports: Hx Anxiety, Hx Depression Denies: Hx Panic Disorder, Hx Post Traumatic Stress Disorder, Other Psychiatric Issues/Disorders - Cancer History Hx Chemotherapy: No - Surgical History Surgery Procedure, Year, and Place: dialysis port x2 Hx Anesthesia Reactions: No - Immunization History Date of Tetanus Vaccine: Unknown Infectious Disease History: No Infectious Disease History: Denies: Hx Tuberculosis, Traveled Outside the [place] in Last 30 Days - Family History Known Family History: Negative: Cardiac Disease, Hypertension, Diabetes - Social History Lives: [facility] Alcohol Use: None Hx Substance Use: No Substance Use Type: Reports: None Hx Tobacco Use: Yes Smoking Status (MU): Former Smoker Type: Cigarettes Amount Used/How Often: not much, only while in college Have You Smoked in the Last Year: No Review of Systems Negative: Fever Positive: Shortness Of Breath All Other Systems Reviewed And Are Negative: No - Comments Additional Review of Systems Comments: Level 5 Caveat: AMS Physical Exam - Summary Physical Exam Summary: Appearance: Lethargic, Appears to know name Skin: Warm, dry, no obvious rash Eyes: sclera anicteric, no conjunctival pallor Respiratory: Appears to be in mild/moderate resp distress. Basal crackles Cardiovascular: Appears well perfused, pulses are nml. CVC present Musculoskeletal: No peripheral edema Triage Information Reviewed: No Vital Signs On Initial Exam: Initial Vitals Temp Pulse Resp BP Pulse Ox 98.3 F 77 28 190/105 93 02/28/18 19:56 02/28/18 19:56 02/28/18 19:56 02/28/18 19:56 02/28/18 19:56 Vital Signs Reviewed: No Completion Of Physical Exam Limited Due To: Altered Mental Status, Level 5 Diagnostics - Vital Signs Vital Signs Temp Pulse Resp BP Pulse Ox 02/28/18 19:56 98.3 F 77 28 190/105 93 - Laboratory Result Diagrams: 02/28/18 20:42 02/28/18 20:42 Lab Statement: Any lab studies that have been ordered have been reviewed, and results considered in the medical decision making process. - Radiology CXR Xray Interpretation: Positive (See Comments) - CXR reveals stable right pleural effusion, stable left pleural effusion, Permacath in good position, new area of opacity in right peripheral midlung field, ED physician has reviewed this radiology report. Radiology Interpretation Completed By: ED Physician Disposition - Course Assessment/Plan: This patient is a 57 year old female presenting to [facility] with a chief complaint of SOB since earlier today. Patient is from the [facility]. Attending doctor present found infiltrates on bilateral lungs when patient complained of SOB so patient was transferred to ED. At baseline, patient is SOB and lethargic, but responds to her name. CXR reveals stable right pleural effusion, stable left pleural effusion, Permacath in good position , new area of opacity in right peripheral midlung field, ED physician has reviewed this radiology report. Bloodwork Obtained. Urinalysis Obtained. In the ED course the patient was given Cefepime, Levaquin, Vancomycin, Ativan. We discussed patient care with Dr. Patel (Hospitalist) and they agreed to admit patient. The patient is agreeable with this plan. - Physician Notifications Discussed Care Of Patient With: Brigitte Patel - Hospitalist Time Discussed With Above Provider: 22:00 Instructed by Provider To: Admit As Inpatient Discharge - Discharge Plan Disposition: ADMITTED TO [facility] - Attestation Statements Document Initiated by Scribe: Yes
[2018-02-28] MEDS ORDERED: NS 0.9% 50 ML* 50 ML ONE (20:47)
[2018-02-28] MEDS ORDERED: Cefepime 2 GM in Dextrose(*) 2 GM/50 ML BAG IV ONE (20:49)
[2018-02-28 20:57] LABS: ABS Basophils 0 10^3/ul (0-0.2); ABS Eosinophils 1.4 10^3/ul (0-0.6); ABS Lymphocytes 0.9 10^3/ul (1.0-4.8); ABS Monocytes 0.6 10^3/ul (0-0.8); ABS Nucleated RBC 0 10^3/ul; Eosinophil % 20.3 % (0-6); Hematocrit 32 % (35-47); Hemoglobin 10.1 g/dl (12.0-16.0); Lymphocyte % 12.7 % (25-47); Mean Corpuscular HGB Conc 31 g/dl (31-36); Mean Corpuscular Hemoglobin 28 pg (27-31); Mean Corpuscular Volume 88 fL (80-97); Mean Platelet Volume 7.6 um3 (7.4-10.4); Nucleated Red Blood Cells % 0; Platelet Count 263 10^3/ul (150-450); Red Blood Count 3.68 10^6/ul (4.00-5.40); Red Cell Distribution Width 17 % (10.5-15)
[2018-02-28] MEDS ORDERED: Vancomycin(*) 750 MG in NS 0.9% 250 ML* 250 ML IVPB ONE (21:00)
[2018-02-28] MEDS ORDERED: Vancomycin(*) 1,000 MG VIAL IVPB ONE (21:00)
[2018-02-28 21:13] LABS: EGFR Non-African American 17.4 (>60)
[2018-02-28 21:14] LABS: INR 1.01 (0.77-1.02)
[2018-02-28] MEDS ORDERED: LORazepam INJ* 2 MG/ML 1 ML VIAL IV PUSH ONE (21:16)
[2018-02-28] MEDS ORDERED: LORazepam INJ* 2 MG/ML 1 ML VIAL ONE (21:18)
[2018-02-28] MEDS ORDERED: Atropine SYRINGE* 0.1 MG/ML 10 ML SYRINGE (1 MG) ONE ×2 (21:26→21:27)
[2018-02-28] MEDS ORDERED: Flumazenil* 0.1 MG/ML 5 ML MDV IV ONE ×2 (21:32→21:38)
[2018-02-28] MEDS ORDERED: Atropine 1MG/ML INJ* 1 ML VIAL IV PUSH ONE (21:33)
[2018-02-28] MEDS ORDERED: Atropine SYRINGE* 0.1 MG/ML 10 ML SYRINGE (1 MG) IV PUSH ONE (21:33)
[2018-02-28] MEDS ORDERED: Ondansetron INJ* 2 MG/ML VIAL IV PRN (22:11)
[2018-02-28] MEDS ORDERED: Acetaminophen TAB* 325 MG PO PRN (22:14)
[2018-02-28] MEDS ORDERED: Methadone TAB* 5 MG PO PRN (22:14)
--- NOTE | 2018-03-01 02:23 | HP ---
CC: Dr. Letty Duffy * HISTORY AND PHYSICAL: DATE OF ADMISSION: 02/28/18 PRIMARY CARE PROVIDER: Dr. Letty Duffy, Dr. Brigitte Patel at [facility]. CHIEF COMPLAINT: Hypoxia then unresponsive. HISTORY OF PRESENT ILLNESS: Ms. Charles is a 57-year-old female who is currently residing at [facility] for subacute rehab, when she was identified to be hypoxic at 88% on 2 L oxygen on the morning of admission. According to the nurse practitioner who saw the patient on the day of admission, the patient appeared to be otherwise at her baseline and without any significant complaints of shortness of breath or cough. There was a potential concern for fever and therefore a chest x- ray was obtained. The patient went to dialysis as usual in the afternoon. According to the patient's son, the patient essentially seemed at baseline when he spoke with her after dialysis. The results of the chest x-ray were called to the on-call provider, at which time, the request was made to send the patient to the emergency room for further evaluation with labs to evaluate for possible pneumonia. In the emergency room, the patient was heard by myself while working on another patient's admission to be calling out for help. Ultimately, the conversation was that the patient was anxious. She felt like she was having a panic attack. She stated she wanted to be out of the emergency room. Ativan 1 mg IV was given to the patient. Shortly thereafter the patient did stop screaming and the next thing I heard was the telemetry alarm going off. The patient's heart rate was identified to be 26 to 27 and therefore I went into see the patient emergently. The patient appeared to be guppy breathing and her coloring was quite off. She appeared to be a blue -gerardo color. The decision was made despite a DNR to give atropine 1 mg IV. After the atropine was given, the patient's heart rate increased to 115 temporarily and is subsequently drifting back down, is currently at 88. The patient despite the atropine continued to be unresponsive as she just received Ativan, a dose of flumazenil 0.2 mg IV was given. Following this, the patient was able to open her eyes to my calling her name and responded out to sternal rub. This was a dramatic improvement from previous. At this point, the patient is unable to provide any other history. PAST MEDICAL HISTORY: 1. End-stage renal disease secondary to polycystic kidney disease. 2. Hypertension. 3. Cardiomyopathy with an EF of 35%. 4. Coronary artery disease. 5. History of past stroke. 6. Rheumatoid arthritis. 7. Depression. PAST SURGICAL HISTORY: 1. Tunneled dialysis catheter insertion. 2. Peritoneal dialysis catheter insertion and removal. MEDICATIONS: 1. Sertraline 50 mg p.o. daily. 2. Zofran 4 mg p.o. q.8 hours p.r.n. nausea. 3. Omeprazole 20 mg p.o. daily. 4. Naproxen 500 mg p.o. b.i.d. 5. Bactroban ointment applied topically twice daily to peritoneal dialysis catheter site. 6. Methadone 5 mg p.o. q.12 hours p.r.n. pain. 7. Ativan 2 mg p.o. q.6 hours p.r.n. anxiety. 8. [place] 5/325 one tab p.o. q.6 hours p.r.n. pain. 9. Enbrel 25 mg subcutaneous weekly. 10. Plavix 75 mg p.o. q.h.s. 11. Coreg 25 mg p.o. b.i.d. 12. Calcitriol 0.25 mcg p.o. daily. 13. Lipitor 20 mg p.o. q.h.s. 14. Aspirin 81 mg p.o. daily. 15. Augmentin 875 mg p.o. b.i.d. 16. Aliskiren 300 mg p.o. daily. 17. Tylenol 650 mg p.o. q.4 hours p.r.n. pain. ALLERGIES: ADHESIVE TAPE and CODEINE. FAMILY HISTORY: From prior histories and physicals revealed father with a history of polycystic kidney disease who ultimately of [place]. Mom had a history of hypertension who of Alzheimer's. SOCIAL HISTORY: The patient currently is residing at [facility]. She is a lifelong nonsmoker. She had previously denied any alcohol use. Her son, Alex, is her healthcare proxy. REVIEW OF SYSTEMS: Unobtainable from the patient due to her being unresponsive. PHYSICAL EXAMINATION GENERAL: The patient is a well-developed middle-aged female who appears chronically ill and much older than her stated age and currently minimally responsive. VITAL SIGNS: Blood pressure 166/89, pulse 88, respirations 20, temp 97.6, and O2 sat 100% on 10 L. HEENT: Pupils are equal and round. There is slight reaction to light. Oropharynx is dry due to the patient is breathing with her mouth wide open. There is no submandibular, cervical or supraclavicular adenopathy. NECK: Thyroid is not enlarged. No thyroid nodules noted. PULMONARY: Lungs are clear anteriorly. CARDIAC: Normal S1 and S2. Heart rate at the time of significant bradycardia was slow and regular. Post atropine, the patient's heart rate is regular. There are no murmurs. There is right greater than left ankle edema. ABDOMEN: Bowel sounds are present. Abdomen is soft, nontender, and nondistended. There is a healing wound to the right lower quadrant where her peritoneal dialysis catheter was previously. MUSCULOSKELETAL: The patient was not seen moving any of her limbs. Her baseline coloring is somewhat gerardo. SKIN: Warm and dry. She has a healing wound to the left anterior leg. NEURO: Unable to be performed. PSYCH: Unable to be performed. DIAGNOSTIC STUDIES/LAB DATA: WBC 7.0, hemoglobin 10.1, hematocrit 32, platelets 263. INR 1.01. Sodium 139, potassium 3.9, chloride 96, CO2 35, BUN 20, creatinine 2.8, glucose 126, lactic acid 0.6, calcium 9.1. Bilirubin 0.3, AST 18, ALT 21, alk phos 93. Troponin 0.03. Albumin 3.4. Chest x-ray to my interpretation appears to have probable pulmonary vascular congestion that is essentially unchanged from prior chest x-ray obtained in December of this year. ASSESSMENT AND PLAN: Ms. Charles is a 57-year-old chronically ill female with history of end-stage renal disease, rheumatoid arthritis, hypertension, ischemic cardiomyopathy and depression who presents to the emergency room for evaluation of hypoxia and possible infiltrates on chest x-ray, found at [facility] and while in the emergency room developed significant bradycardia and an unresponsive episode possibly related to Ativan administration. 1. Hypoxia. At this point, the patient's chest x-ray looks essentially unchanged from prior in December of this year. I do not believe the patient is infected at this point. A procalcitonin has been added onto the labs from the emergency room. The results of these are pending. The patient currently is not hypoxic though she is on 10 L of oxygen after her unresponsive episode in the emergency room. We will try to wean this down as able. I am not going to continue antibiotic therapy unless the procalcitonin comes back elevated or unless tomorrow. The patient is able to state that she in fact has been coughing and bringing up sputum; however, this does not appear to be the case based on the progress note from the nurse practitioner who saw the patient earlier on the day of admission. 2. Unresponsive episode with associated bradycardia. While in the ER, I identified the patient's telemetry to be alarming. Upon visual inspection, the patient was blue-gerardo in color and guppy breathing. The patient received atropine and 0.2 mg of flumazenil with fair response. She is still minimally responsive; however she does take p.r.n. Ativan at [facility], I do not want to fully reverse the effects of Ativan as she does appear to be ventilating adequately at this time. The patient is a DNR/DNI. I have explained the situation to the patient's son. The plan is to allow the patient more time in a supervised setting to sleep off the Ativan that she received and to monitor her mental status with this. 3. Hypertension. The patient was markedly hypertensive previously, her blood pressure has started to trend down. She will be resumed on her usual antihypertensives tomorrow morning if she becomes alert. 4. Coronary artery disease. I will get a followup troponin at midnight to see if the event in the emergency room may have been related to cardiac ischemia though I suspect this is not the case. She will continue on aspirin, Coreg, Plavix, and Lipitor once she becomes alert. 5. Bilateral ear infections as reported by the nurse practitioner at [facility]. The patient has had issues with otitis externa on the right with significant leakage from that ear. She has been following with ENT. Most recently she was started on Augmentin 875 mg twice daily. Due to her renal failure, this dose should be cut to 500 mg daily and I will make this change now. 6. Rheumatoid arthritis. I am going to place the patient's Enbrel on hold. 7. End-stage renal disease. Dr. Bianchi will need to be notified of the patient 's admission. She will continue on calcitriol. 8. Deep vein thrombosis prophylaxis. According to the Adult Thrombosis Prophylaxis Risk Factor Assessment Guide, the patient has a total risk factor score of 2 making her moderate risk. She will be placed on heparin 5000 units subcutaneous q.8 hours. 9. Code status is DNR/DNI. [id number]/[facility] #: [id number] [facility]ASSETT HOSPITALRenee
[2018-03-01 04:44] LABS: Hematocrit 29 % (35-47); Hemoglobin 9.1 g/dl (12.0-16.0); Mean Corpuscular HGB Conc 31 g/dl (31-36); Mean Corpuscular Hemoglobin 27 pg (27-31); Mean Corpuscular Volume 88 fL (80-97); Mean Platelet Volume 7.7 um3 (7.4-10.4); Platelet Count 234 10^3/ul (150-450); Red Blood Count 3.32 10^6/ul (4.00-5.40); Red Cell Distribution Width 17 % (10.5-15); White Blood Count 7.3 10^3/ul (3.5-10.8)
[2018-03-01 05:10] LABS: EGFR Non-African American 15.7 (>60)
[2018-03-01] MEDS: Heparin VIAL(*) 5000 UNITS/ML VIAL (FIVE THOUSAND) SUBCUT SCH ×3 (05:56→21:33)
[2018-03-01] MEDS: hydrALAZINE IV* 20 MG/ML VIAL IV SLOW PU PRN ×2 (08:25→23:07)
[2018-03-01] MEDS ORDERED: Amoxicillin/Clavulanate TAB* 875 MG PO SCH (09:00)
[2018-03-01] MEDS: Aspirin EC TAB* 81 MG TAB.EC PO SCH (09:09)
[2018-03-01] MEDS: Sertraline* 50 MG TAB PO SCH (09:09)
[2018-03-01] MEDS: Amoxicillin/Clavulanate TAB* 500 MG PO SCH (09:09)
[2018-03-01] MEDS: Calcitriol CAP* 0.25 MCG PO SCH (09:09)
[2018-03-01] MEDS: CMCS: Pantoprazole TAB (NF) 40 MG TAB PO SCH (09:09)
[2018-03-01] MEDS: Carvedilol TAB* 25 MG PO SCH ×2 (09:09→21:33)
[2018-03-01] MEDS: Mupirocin 2% OINT* TUBE TOPICAL SCH ×2 (09:26→21:37)
[2018-03-01] MEDS: LORazepam TAB(*) 0.5 MG PO PRN ×3 (09:26→23:56)
[2018-03-01] MEDS: Aliskiren TAB* 300 MG PO SCH (09:27)
[2018-03-01] MEDS: HYDROcodone/ACETAMIN 5-325 MG* 1 TAB PO PRN (11:02)
--- NOTE | 2018-03-01 15:01 | RAD ---
INDICATION: Shortness of breath COMPARISON: Most recent comparison chest x-ray is dated December 24, 2017 TECHNIQUE: Single AP portable view of the chest was obtained. FINDINGS: Image quality is compromised due to the relative inferiority of a portable chest x-ray. Again seen is a right internal jugular vein hemodialysis catheter with the tip terminating at the cavoatrial junction. There is a mild degree of cardiomegaly similar to the previous chest x-ray. There is coarse calcification overlying the arch of aorta. There is layering density overlying the bilateral lung bases obscuring the diaphragm. These are larger on the left side than the right and not significantly changed since the previous chest x-ray. There appear to be stable rib fractures at the left lateral fourth and fifth ribs, the posterior right fourth, fifth and sixth ribs and the lateral fifth and sixth ribs on the right. IMPRESSION: 1. Chest x-ray findings are consistent with pulmonary edema with bibasilar pleural effusions, larger on the left than the right that have not changed significantly when compared to the December 24, 2017 chest x-ray. 2. Multiple rib fractures similar in appearance to the previous chest x-ray. R2
--- NOTE | 2018-03-01 16:37 | PN ---
Critical Care Services: Patient remains anxious and complains of SOB. Vital Signs: Pulse Resp BP SpO2 FiO2 67 25 134/72 100 03/01/18 15:00 03/01/18 15:00 03/01/18 14:00 03/01/18 15:00 Physical Exam: Gen:Alert and oriented. Lungs: BS distant. Occasional inspiratory wheezes. Extremities: Warm. Not cyanotic. Fluid Balance (Past 24 Hours): 03/01/18 06:59 Intake Total 450 Output Total Balance 450 Weight 114 lb Intake: IV Fluids 450 Oral 0 Output: Urine Labs: 02/28/18 02/28/18 02/28/18 20:42 20:42 20:42 WBC 7.0 RBC 3.68 L Hgb 10.1 L Hct 32 L MCV 88 MCH 28 MCHC 31 RDW 17 H Plt Count 263 MPV 7.6 Neut % (Auto) 57.2 Lymph % (Auto) 12.7 L Jenkins % (Auto) 9.1 H Eos % (Auto) 20.3 H Baso % (Auto) 0.7 Absolute Neuts (auto) 4.0 Absolute Lymphs (auto) 0.9 L Absolute Monos (auto) 0.6 Absolute Eos (auto) 1.4 H Absolute Basos (auto) 0 Absolute Nucleated RBC 0 Nucleated RBC % 0 INR (Anticoag Therapy) 1.01 APTT 47.3 H Sodium 139 Potassium 3.9 Chloride 96 L Carbon Dioxide 35 H Anion Gap 8 BUN 20 Creatinine 2.80 H Est GFR ( Amer) 21.1 Est GFR (Non-Af Amer) 17.4 BUN/Creatinine Ratio 7.1 L Glucose 126 H Lactic Acid Calcium 9.1 Total Bilirubin 0.30 AST 18 ALT 21 Alkaline Phosphatase 93 Troponin I 0.03 Total Protein 6.2 L Albumin 3.4 Globulin 2.8 Albumin/Globulin Ratio 1.2 Procalcitonin 02/28/18 02/28/18 02/28/18 20:42 20:42 22:49 WBC RBC Hgb Hct MCV MCH MCHC RDW Plt Count MPV Neut % (Auto) Lymph % (Auto) Jenkins % (Auto) Eos % (Auto) Baso % (Auto) Absolute Neuts (auto) Absolute Lymphs (auto) Absolute Monos (auto) Absolute Eos (auto) Absolute Basos (auto) Absolute Nucleated RBC Nucleated RBC % INR (Anticoag Therapy) APTT Sodium Potassium Chloride Carbon Dioxide Anion Gap BUN Creatinine Est GFR ( Amer) Est GFR (Non-Af Amer) BUN/Creatinine Ratio Glucose Lactic Acid 0.6 Calcium Total Bilirubin AST ALT Alkaline Phosphatase Troponin I 0.03 Total Protein Albumin Globulin Albumin/Globulin Ratio Procalcitonin 1.3 H 03/01/18 03/01/18 04:20 04:20 WBC 7.3 RBC 3.32 L Hgb 9.1 L Hct 29 L MCV 88 MCH 27 MCHC 31 RDW 17 H Plt Count 234 MPV 7.7 Neut % (Auto) Lymph % (Auto) Jenkins % (Auto) Eos % (Auto) Baso % (Auto) Absolute Neuts (auto) Absolute Lymphs (auto) Absolute Monos (auto) Absolute Eos (auto) Absolute Basos (auto) Absolute Nucleated RBC Nucleated RBC % INR (Anticoag Therapy) APTT Sodium 137 Potassium 4.1 Chloride 96 L Carbon Dioxide 33 H Anion Gap 8 BUN 23 Creatinine 3.07 Glucose 74 Lactic Acid Calcium 8.9 Total Bilirubin AST ALT Alkaline Phosphatase Troponin I Total Protein Albumin Globulin Albumin/Globulin Ratio Procalcitonin NOTE: Dialysis yesterday. Studies: None Nutrition: Oral diet Impression: Despite complaints SOB, there is no objective evidence of a treatable pulmonary condition. Plan: General supportive care, including anxiolytic meds and dialysis.
[2018-03-01] MEDS: Atorvastatin* 20 MG TAB PO SCH (18:31)
[2018-03-01] MEDS: Clopidogrel TAB* 75 MG PO SCH (18:31)
[2018-03-02] MEDS: HYDROcodone/ACETAMIN 5-325 MG* 1 TAB PO PRN ×3 (00:18→23:14)
[2018-03-02] MEDS: LORazepam TAB(*) 0.5 MG PO PRN ×3 (04:34→21:50)
[2018-03-02] MEDS: Heparin VIAL(*) 5000 UNITS/ML VIAL (FIVE THOUSAND) SUBCUT SCH ×3 (05:25→20:17)
[2018-03-02] MEDS: hydrALAZINE IV* 20 MG/ML VIAL IV SLOW PU PRN (06:09)
[2018-03-02] MEDS: Aliskiren TAB* 300 MG PO SCH (08:24)
[2018-03-02] MEDS: Aspirin EC TAB* 81 MG TAB.EC PO SCH (08:24)
[2018-03-02] MEDS: Calcitriol CAP* 0.25 MCG PO SCH (08:24)
[2018-03-02] MEDS: Amoxicillin/Clavulanate TAB* 500 MG PO SCH (08:25)
[2018-03-02] MEDS: CMCS: Pantoprazole TAB (NF) 40 MG TAB PO SCH (08:25)
[2018-03-02] MEDS: Mupirocin 2% OINT* TUBE TOPICAL SCH ×2 (08:25→20:35)
[2018-03-02] MEDS: Sertraline* 50 MG TAB PO SCH (08:25)
[2018-03-02] MEDS: Carvedilol TAB* 25 MG PO SCH ×2 (08:25→20:17)
--- NOTE | 2018-03-02 09:52 | PN ---
Date of Service: 03/02/18 Critical Care Services: Less anxious and less SOB today. Is up in chair and eating breakfast. BP has been high on occasion (i.e., systolic BPs approaching 200 mm Hg), requiring IV hydralazine. Vital Signs: Temp Pulse Resp BP SpO2 FiO2 99.1 F 73 26 168/90 100 NOTE: On nasal O2 at 3 L/min. (vs outpatient O2 at 2 L/min) Physical Exam: Gen:Alert, oritnted, and breathing comfortably Lungs: No adventitious sounds. Cardiac: Reg rhythm Extremities:No cyanosis or edema. Fluid Balance (Past 24 Hours): 03/02/18 06:59 Intake Total 360 Output Total 0 Balance 360 Weight 118 lb Intake: IV Fluids Oral 360 Output: Urine 0 Labs: None today Studies: None today Nutrition: Oral diet Impression: Complaints of dyspnea appear to be anxiety-related (and not related to fluid accumulation), and is much less anxious today. Other problem: Hypertension needs to be better controlled. Plan: 1. Add losartan (ARB) for BP control. 2. Continue benzos and opiates for sedation and analgesia. 3. Dialysis scheduled for tomorrow.
--- NOTE | 2018-03-02 10:11 | PN ---
Progress Note - Progress Note Date of Service: 03/02/18 Note: PATIENT ALREADY RECEIVING AN ANTONIO INHIBITOR FOR HYPERTENSION, SO i WILL NOT START THE LOSARTAN, BUT INSTEAD WILL USE AMLODIPINE.
[2018-03-02] MEDS: amLODIPine TAB* 5 MG PO SCH (12:16)
[2018-03-02] MEDS: Clopidogrel TAB* 75 MG PO SCH (18:07)
[2018-03-02] MEDS: Atorvastatin* 20 MG TAB PO SCH (18:07)
[2018-03-02] MEDS ORDERED: Morphine VIAL* 4 MG/ML VIAL (1 ml vial) IV ONE ×2 (22:03→22:05)
[2018-03-03] MEDS: LORazepam TAB(*) 0.5 MG PO PRN ×4 (04:02→20:41)
[2018-03-03] MEDS: Heparin VIAL(*) 5000 UNITS/ML VIAL (FIVE THOUSAND) SUBCUT SCH ×3 (04:04→19:59)
[2018-03-03] MEDS: Amoxicillin/Clavulanate TAB* 500 MG PO SCH (08:17)
[2018-03-03] MEDS: amLODIPine TAB* 5 MG PO SCH (08:18)
[2018-03-03] MEDS: Sertraline* 50 MG TAB PO SCH (08:18)
[2018-03-03] MEDS: Aspirin EC TAB* 81 MG TAB.EC PO SCH (08:18)
[2018-03-03] MEDS: Carvedilol TAB* 25 MG PO SCH ×2 (08:18→20:41)
[2018-03-03] MEDS: Calcitriol CAP* 0.25 MCG PO SCH (08:18)
[2018-03-03] MEDS: Aliskiren TAB* 300 MG PO SCH (08:18)
[2018-03-03] MEDS: Mupirocin 2% OINT* TUBE TOPICAL SCH ×2 (08:19→20:47)
[2018-03-03] MEDS: CMCS: Pantoprazole TAB (NF) 40 MG TAB PO SCH (08:19)
[2018-03-03 10:41] LABS: ABS Basophils 0 10^3/ul (0-0.2); ABS Eosinophils 0.9 10^3/ul (0-0.6); ABS Lymphocytes 0.9 10^3/ul (1.0-4.8); ABS Monocytes 0.4 10^3/ul (0-0.8); ABS Neutrophils 3.8 10^3/ul (1.5-7.7); ABS Nucleated RBC 0 10^3/ul; Eosinophil % 14.9 % (0-6); Hematocrit 28 % (35-47); Hemoglobin 8.5 g/dl (12.0-16.0); Mean Corpuscular HGB Conc 31 g/dl (31-36); Mean Corpuscular Hemoglobin 27 pg (27-31); Mean Corpuscular Volume 89 fL (80-97); Mean Platelet Volume 7.6 um3 (7.4-10.4); Nucleated Red Blood Cells % 0; Platelet Count 213 10^3/ul (150-450); Red Blood Count 3.12 10^6/ul (4.00-5.40); Red Cell Distribution Width 18 % (10.5-15)
[2018-03-03] MEDS ORDERED: Epoetin Alfa* 10,000 UNITS/ML VIAL IV ONE (11:00)
[2018-03-03] MEDS ORDERED: Heparin DIALYSIS ONLY(*) 1,000 UNITS/ML VIAL DIALYSIS ONE (11:00)
[2018-03-03 11:04] LABS: EGFR Non-African American 10.6 (>60)
[2018-03-03] MEDS ORDERED: Morphine VIAL* 4 MG/ML VIAL (1 ml vial) IV PRN (12:58)
--- NOTE | 2018-03-03 16:39 | PN ---
Subjective Date of Service: 03/03/18 Interval History: Pt seen and examined. Meds and labs reviewed. CC: Anxiety ROS: Denied PATTEN/dizziness, F/C, N/V, CP, SOB, increased cough, sputum production , abd pain, diarrhea, constipation, dysuria, myalgias, arthralgias, throat pain , and new skin lesions. The rest of the 14 point ROS are unremarkable. PHYSICAL EXAM: GEN APPEARANCE: Awake, not in acute distress HEENT: NC/AT, PERRLA, moist oral mucosa, (-) throat erythema NECK: Soft, supple, (-) cervical LAD, (-)JVD HEART: S1S2 WNL, RRR, No MRG CHEST: CTA, BL, GAE, No W/R/R ABD: Soft, ND/NT, NABS 4x Q EXT: No C/C/BLLE edema 2+ SKIN: Warm to touch; skin appears fuad and sidhu, however, no circumoral cyanosis PSYCH: No active psychosis, hallucinations, depression, SI/HI; Pt is anxious Objective Active Medications: Acetaminophen (Tylenol Tab*) 650 mg PO Q4H PRN PRN Reason: PAIN Hydrocodone Bitart/Acetaminophen ([place] 5-325 Tab*) 1 tab PO Q6H PRN PRN Reason: PAIN Last Admin: 03/02/18 10:05 Dose: 1 tab Aliskiren (Tekturna Tab*) 300 mg PO QAM [facility] Last Admin: 03/03/18 08:18 Dose: 300 mg Amlodipine Besylate (Norvasc Tab*) 10 mg PO DAILY [facility] Amoxicillin/Clavulanate Potassium (Augmentin Tab*) 500 mg PO DAILY [facility] Last Admin: 03/03/18 08:17 Dose: 500 mg Aspirin (Aspirin Ec Tab*) 81 mg PO QAM [facility] Last Admin: 03/03/18 08:18 Dose: 81 mg Atorvastatin Calcium (Lipitor*) 20 mg PO QPM [facility] Last Admin: 03/02/18 18:07 Dose: 20 mg Calcitriol (Rocaltrol Cap*) 0.25 mcg PO QAM [facility] Last Admin: 03/03/18 08:18 Dose: 0.25 mcg Carvedilol (Coreg Tab*) 25 mg PO BID [facility] Last Admin: 03/03/18 08:18 Dose: 25 mg Clopidogrel Bisulfate (Plavix Tab*) 75 mg PO QPM [facility] Last Admin: 03/02/18 18:07 Dose: 75 mg Heparin Sodium (Porcine) (Heparin Vial(*)) 5,000 units SUBCUT Q8HR [facility] Last Admin: 03/03/18 04:04 Dose: 5,000 units Hydralazine HCl (Apresoline Iv*) 10 mg IV SLOW PU Q6H PRN PRN Reason: BLOOD PRESSURE Last Admin: 03/02/18 06:09 Dose: 10 mg Lorazepam (Ativan Tab(*)) 0.5 mg PO Q4H PRN PRN Reason: ANXIETY Last Admin: 03/03/18 12:51 Dose: 0.5 mg Methadone HCl (Dolophine Tab*) 5 mg PO Q12H PRN PRN Reason: PAIN Morphine Sulfate (Morphine Vial*) 0.5 mg IV Q4H PRN PRN Reason: PAIN Last Admin: 03/03/18 13:38 Dose: 0.5 mg Mupirocin (Bactroban 2 % Oint*) 1 applic TOPICAL BID [facility] Last Admin: 03/03/18 08:19 Dose: 1 applic Ondansetron HCl (Zofran Inj*) 4 mg IV Q6H PRN PRN Reason: NAUSEA Last Admin: 03/02/18 11:27 Dose: 4 mg Pantoprazole Sodium (Protonix Tab (Nf)) 40 mg PO QAM [facility] Last Admin: 03/03/18 08:19 Dose: 40 mg Sertraline HCl (Zoloft*) 50 mg PO QAM [facility] Last Admin: 03/03/18 08:18 Dose: 50 mg Vital Signs - 8 hr 03/03/18 03/03/18 12:51 13:38 Respiratory 32 30 Rate Oxygen Devices in Use Now: Nasal Cannula - Nutrition: Malnutrition Diagnosis/Plan Malnutrition Assessment by Registered Dietitian: Malnutrition Assessment Clinical Characteristics Chronic,Severe Malnutrition Assessment: Severe temporal/clavicle muscle wasting Criteria Severe fat pad wasting Chronic ESRD Malnutrition Assessment: Offered nutritional supplements but pt continues Interventions to decline. Send snacks to supplement calorie/protein intake - providing approx 400 kcals, 13 g pro Regular diet appropriate since renal parameters controlled to maximize flexibility Monitor dry weight change and follow overall oral intake Malnutrition Assessment: Goals 1. Improved oral intake to support dry weight regain, confucianist of lean body mass 2. Maintain controlled renal labs and interdialytic weight gains w/in ESRD parameters Result Diagrams: 03/03/18 10:24 03/03/18 10:24 Microbiology and Other Data: Microbiology 02/28/18 20:42 Aerobic Blood Culture - Preliminary Blood Venous No Growth Day 2 Anaerobic Blood Culture - Preliminary No Growth Day 2 02/28/18 20:42 Aerobic Blood Culture - Preliminary Blood Venous No Growth Day 2 Anaerobic Blood Culture - Preliminary No Growth Day 2 02/28/18 22:49 Nasal Screen MRSA (PCR) - Final Nasal Mrsa Not Detected Assess/Plan/Problems-Billing Assessment: - Patient Problems (1) HTN (hypertension) Current Visit: No Status: Chronic Code(s): I10 - ESSENTIAL (PRIMARY) HYPERTENSION SNOMED Code(s): 75463012 Comment: -Uncontrolled -Will add Amlodipine to her regimen (2) Hypoxia Current Visit: Yes Status: Acute Code(s): R09.02 - HYPOXEMIA SNOMED Code(s ): 805582198 Comment: -Resolved -Thought to be due to shallow rapid breaths due to anxiety -ACS ruled out with troponins (-) x3 -R/O of VTE given D-dimer not more than 570, which is cut off for her age group (3) Bradycardia Current Visit: Yes Status: Acute Code(s): R00.1 - BRADYCARDIA, UNSPECIFIED SNOMED Code(s): 20854432 Comment: -Resolved (4) CAD (coronary artery disease) Current Visit: Yes Status: Acute Code(s): I25.10 - ATHSCL HEART DISEASE OF [place] CORONARY ARTERY W/O ANG PCTRS SNOMED Code(s): 47039526 Comment: -Continue Atorvastatin and Carvedilol (5) Ear infection Current Visit: Yes Status: Acute Code(s): H66.90 - OTITIS MEDIA, UNSPECIFIED , UNSPECIFIED EAR SNOMED Code(s): 196386634 Comment: -Continue Augmentin (6) DVT prophylaxis Current Visit: No Status: Acute Priority: High Onset Date: 09/08/14 Code (s): [id number] - SNOMED Code(s): 921598219 Comment: -Place on SCDs -Decrease frequency of Heparin to q12 given ESRD Status and Disposition: -As above
[2018-03-03] MEDS: Clopidogrel TAB* 75 MG PO SCH (17:29)
[2018-03-03] MEDS: Atorvastatin* 20 MG TAB PO SCH (17:30)
[2018-03-04] MEDS: Heparin VIAL(*) 5000 UNITS/ML VIAL (FIVE THOUSAND) SUBCUT SCH (05:32)
[2018-03-04 07:02] LABS: ABS Basophils 0 10^3/ul (0-0.2); ABS Eosinophils 1.1 10^3/ul (0-0.6); ABS Lymphocytes 0.9 10^3/ul (1.0-4.8); ABS Monocytes 0.8 10^3/ul (0-0.8); ABS Neutrophils 4.2 10^3/ul (1.5-7.7); ABS Nucleated RBC 0 10^3/ul; Eosinophil % 15.7 % (0-6); Hematocrit 29 % (35-47); Hemoglobin 9.2 g/dl (12.0-16.0); Lymphocyte % 12.8 % (25-47); Mean Corpuscular HGB Conc 32 g/dl (31-36); Mean Corpuscular Hemoglobin 28 pg (27-31); Mean Corpuscular Volume 88 fL (80-97); Mean Platelet Volume 7.9 um3 (7.4-10.4); Nucleated Red Blood Cells % 0.1; Platelet Count 216 10^3/ul (150-450); Red Blood Count 3.29 10^6/ul (4.00-5.40); Red Cell Distribution Width 18 % (10.5-15); White Blood Count 7.1 10^3/ul (3.5-10.8)
[2018-03-04 07:29] LABS: EGFR Non-African American 14.7 (>60)
[2018-03-04] MEDS: Carvedilol TAB* 25 MG PO SCH (08:59)
[2018-03-04] MEDS: Sertraline* 50 MG TAB PO SCH (08:59)
[2018-03-04] MEDS: Aliskiren TAB* 300 MG PO SCH (08:59)
[2018-03-04] MEDS: Calcitriol CAP* 0.25 MCG PO SCH (08:59)
[2018-03-04] MEDS: LORazepam TAB(*) 0.5 MG PO PRN (08:59)
[2018-03-04] MEDS: CMCS: Pantoprazole TAB (NF) 40 MG TAB PO SCH (08:59)
[2018-03-04] MEDS ORDERED: Metoprolol Tartrate TAB* 25 MG PO SCH ×2 (09:00)
[2018-03-04] MEDS ORDERED: amLODIPine TAB* 5 MG PO SCH (09:00)
[2018-03-04] MEDS: Aspirin EC TAB* 81 MG TAB.EC PO SCH (09:00)
[2018-03-04] MEDS: Amoxicillin/Clavulanate TAB* 500 MG PO SCH (09:00)
[2018-03-04] MEDS: Mupirocin 2% OINT* TUBE TOPICAL SCH (09:01)
[2018-03-04 13:10] VITALS: BP 143/70
--- NOTE | 2018-03-04 14:49 | DS ---
CC: Dr. Patel; Dr. Letty Duffy * DISCHARGE SUMMARY: DATE OF ADMISSION: DATE OF DISCHARGE: 03/04/18 DISCHARGE DIAGNOSES: 1. Hypertension, uncontrolled, improved. 2. Hypoxia, likely secondary to polypharmacy as well as rapid shallow breaths due to panic attacks. 3. Bradycardia, likely secondary to benzodiazepines in the setting of renal failure during her panic attacks and hence likely iatrogenic, resolved. 4. History of coronary artery disease. 5. History of ear infection, the patient is on Augmentin. DISCHARGE MEDICATIONS: 1. Tylenol 650 p.o. q.4 p.r.n. with max of 2 g given the patient is in renal failure. 2. Aliskiren 300 mg p.o. q.a.m. 3. Amlodipine 10 mg p.o. daily. 4. Amoxicillin clavulanate 875 mg p.o. b.i.d. 5. Aspirin 81 mg p.o. q.a.m. 6. Atorvastatin 20 mg p.o. q.p.m. 7. Calcitriol 0.25 mcg p.o. q.a.m. 8. Carvedilol 50 mg p.o. b.i.d. 9. Plavix 75 mg p.o. q.p.m. 10. Hydrocodone and acetaminophen ([place]) 5/325. 11. Ativan 0.5 mg p.o. q.4 hours p.r.n. 12. Methadone 5 mg p.o. q.12. 13. Mupirocin 1 application topically b.i.d. 14. Omeprazole 20 mg p.o. q.a.m. 15. Sertraline 50 mg p.o. q.a.m. 16. Etanercept 25 mg subcu weekly. 17. Ondansetron 4 mg p.o. q.8 hours p.r.n. HISTORY OF PRESENT ILLNESS/HOSPITAL COURSE: The patient is a 57-year-old lady, who resides at [facility] for a subacute rehab where she was brought to the hospital given she was found to be hypoxic at 88% on 2 L of oxygen on the morning of admission and per the nurse practitioner, the patient on the day of admission appeared to be otherwise at baseline without any significant complaints of shortness of breath or cough. However, in the emergency room when she was brought, she was thought to be in panic attack and she herself mentioned that she was in panic attack. She was given 1 mg of IV Ativan and shortly thereafter was found to have heart rates in the 26 to 27 and the patient was reported to be unresponsive or barely responsive for a few minutes and was given atropine and flumazenil with fair response. She was brought initially to the ICU for further monitoring and further evaluation where she was found to be hemodynamically stable. Once again her hypoxia was thought to be due to rapid shallow breaths and/or oversedation post benzodiazepine use and certainly her bradycardia is thought to be due to her polypharmacy in the setting of renal failure and ESRD along with bolus dosing of Ativan that caused it. She was ruled out for venous thromboembolism with a D -dimer that is less than the maximum for her age and unlike to have PE given she does not complain of any chest pain or shortness of breath, and shortly upon controlling her anxiety, she has been found to be saturating well at her baseline. She also had received dialysis during her appropriate schedule for ESRD. She was found to have uncontrolled hypertension and hence her carvedilol was increased to also further control her panic attacks. The dose of her Ativan was subsequently lowered and was prescribed more frequently as a p.r.n. dose to further avoid any full-blown panic attacks when she feels her anxiety as well as to mitigate any sudden sedation and/or mental status change with the huge dose of benzodiazepine and she has done well with this. During her hospitalization stay and a few hours prior to her discharge, she complained of ear discharge on the right, but has unknown ear infection. I would recommend that she follow up with an ENT as an outpatient to further evaluate and examine her ears. At this time, I would recommend to continue Augmentin. The patient had been advised to follow up and/or call her PCP within 3 days postdischarge and she was advised that if she feels anxious to ask for as needed medications to control her anxiety immediately and if her symptoms resume or develop new ones or feel unwell for any reason, to call her PCP. If her PCP cannot entertain her due to scheduling issues alone to call [facility] if the issue is nonemergent. At this point, her PCP would be our practitioners at [facility]. She was advised to call my office regarding any questions, concerns, and or further clarifications regarding her discharge plans and her prescriptions and to take her medications as prescribed. In addition, she also requested that her DNR/DNI status be reversed and for her to be full code and hence we will defer to change her code status when she goes back to [facility]. Upon request, the patient should be full code. REVIEW OF SYSTEMS: On review of systems, the patient denied any recent headaches, dizziness, fevers, chills, nausea, vomiting, chest pain, shortness of breath, increased cough or sputum production, abdominal pain, diarrhea, constipation, pain, and/or increased frequency in urination, myalgias, arthralgias, throat pain, or new skin lesions. The rest of the 14-point review of systems is otherwise unremarkable. PHYSICAL EXAMINATION: Reveals the most recent vital signs of record with blood pressure of 171/75, 97.7 degrees Fahrenheit, 74 beats per minute heart rate, 23 per minute respiratory rate from 18, saturating at 100% at her usual oxygen at home. General Appearance: The patient is awake, alert, and oriented, not in acute distress. HEENT: Normocephalic, atraumatic. PERRLA. Extraocular muscles intact. Negative for icterus. Moist oral mucosa. Negative throat erythema. Neck is soft and supple with no cervical lymphadenopathy. No JVD. Heart: S1 and S2 within normal limits. Regular rate and rhythm. No murmurs, rubs, or gallops. Chest: Clear to auscultation bilaterally, good air entry. No wheezes, rales, or rhonchi. Abdomen is soft, nondistended, and nontender. Normoactive bowel sounds x4 quadrants. Extremities: No cyanosis, clubbing, or edema. Psychiatric: No active psychosis, depression, suicidal or homicidal ideations. Skin is warm to touch. She has a fuad grayish appearance of her skin which is her normal. TIME SPENT: The total time spent evaluating the patient, reviewing pertinent data, and appropriate documentation is 50 minutes. [id number]/[id number] #: [id number] MTDD
[2018-03-04] MEDS ORDERED: Carvedilol TAB* 25 MG PO SCH (21:00)
== END 2018-03-04 14:50 | DRG 304 ==
LOC: ED 19:43 → ICU 22:11 → MED 03-02 10:12
PROVIDERS: ADMIT Hospitalist; ATTEND Student in an Organized Health Care Education/Training Program
PROC: 5A1D70Z Performance of Urinary Filtration, Intermittent, Less than 6 Hours Per Day (ICD-10-PCS; principal; 2018-03-03)
DX: I10 Essential (primary) hypertension (principal); N18.6 End stage renal disease; Q61.3 Polycystic kidney, unspecified; I42.9 Cardiomyopathy, unspecified; R09.02 Hypoxemia; F41.0 Panic disorder [episodic paroxysmal anxiety]; I12.0 Hypertensive chronic kidney disease with stage 5 chronic kidney disease or end stage renal disease; I25.10 Atherosclerotic heart disease of native coronary artery without angina pectoris; M06.9 Rheumatoid arthritis, unspecified; F32.9 Major depressive disorder, single episode, unspecified; H83.03 Labyrinthitis, bilateral; Z86.73 Personal history of transient ischemic attack (TIA), and cerebral infarction without residual deficits; Z79.1 Long term (current) use of non-steroidal anti-inflammatories (NSAID); Z79.02 Long term (current) use of antithrombotics/antiplatelets; Z79.82 Long term (current) use of aspirin; Z79.899 Other long term (current) drug therapy; Z88.5 Allergy status to narcotic agent; Z91.048 Other nonmedicinal substance allergy status; Z84.1 Family history of disorders of kidney and ureter; Z82.49 Family history of ischemic heart disease and other diseases of the circulatory system
CPT/HCPCS: 36415; 36600; 71045; 80048; 80053; 83605; 83735; 84100; 84145; 84484; 85025; 85027; 85379; 85610; 85730; 87040; 87070; 87077; 87186; 87205; 87641; 90935; 93005; 99285; A9270-GY; G0257; G8978-GP-CK; G8979-GP-CI; J0360; J0461; J0692; J0885; J1644; J2060; J2270; J2405; J3370

== ENCOUNTER 2018-03-05 11:47 | Inpatient (IN) | payer MEDICARE, MEDICAID ==
[2018-03-05] MEDS ORDERED: methylPREDNISolone 125 MG* 2 ML VIAL IV ONE (11:51)
[2018-03-05] MEDS ORDERED: Albuterol/Ipratropium NEB.SOL* Albuterol 2.5 MG/Ipratropium 0.5 MG 3 ML INH ONE (11:51)
--- NOTE | 2018-03-05 12:28 | RAD ---
Indication: Shortness of breath. Low O2 saturation. Chronic obstructive pulmonary disease. Comparison: February 28, 2018 Technique: Upright AP 1205 hours Report: Distal tip of the tunneled dual-lumen RIGHT chest wall central venous catheter is at the level of the RIGHT atrium. Cardiomegaly, prominent ill-defined central pulmonary vasculature with perihilar alveolar opacities and diffuse prominence of the interstitial markings. Moderately large RIGHT and moderate LEFT pleural effusions with proportional atelectasis. No pneumothorax evident. Multiple RIGHT-sided rib fractures appear unchanged in the prior exam. IMPRESSION: #. The constellation of findings is consistent with worsening pulmonary edema with pleural effusions.
--- NOTE | 2018-03-05 12:29 | ED ---
Shortness of Breath - HPI Summary HPI Summary: This patient is a 57 year old F presenting to [facility] from [facility] with a chief complaint of SOB since s/p a panic attack. Pt notes she is usually on 2L O2. Pt denies cough. Pt denies desire for intubation. Pt endorses getting her dialysis intermittently, and says her schedule for dialysis is Saturday, Saturday, and Saturday, and has not received it today (, a Saturday). Pt received .5 mg ativan at 1000. - History of Current Complaint Chief Complaint: EDShortnessOfBreath Time Seen by Provider: 03/05/18 11:50 Hx Obtained From: Patient Onset/Duration: Sudden Onset, Still Present Timing: Constant Current Severity: Moderate Dyspnea At: Rest Aggrevating Factors: Other - panic attack Alleviating Factors: Nothing Associated Signs & Symptoms: Negative Related History: Healthcare Acquired: Inpatient Status Within Last 30 Days - discharged from ICU less than 1 week ago - Allergy/Home Medications Allergies/Adverse Reactions: Allergies Allergy/AdvReac Type Severity Reaction Status Date / Time Adhesive Tape Allergy Hives Verified 02/19/18 11:53 codeine AdvReac GI Upset Verified 02/19/18 11:53 Home Medications: Home Medications Aliskiren TAB* [[place] TAB*] 300 mg PO DAILY 03/05/18 [History Confirmed 03/05] Aspirin EC TAB* [Ecotrin EC Low Dose 81 MG*] 81 mg PO DAILY 03/05/18 [History Confirmed 03/05/18] Atorvastatin* [Lipitor*] 20 mg PO BEDTIME 03/05/18 [History Confirmed 03/05/18] Etanercept [Enbrel] 25 mg SUBCUT FR 03/05/18 [History Confirmed 03/05/18] Mupirocin 2% OINT* [Bactroban 2 % Oint*] 1 applic TOPICAL DAILY 03/05/18 [ History Confirmed 03/05/18] Omeprazole CAP* [Prilosec CAP* 20 MG] 20 mg PO BEDTIME 03/05/18 [History Confirmed 03/05/18] Sertraline* [Zoloft*] 50 mg PO DAILY 03/05/18 [History Confirmed 03/05/18] PMH/Surg Hx/FS Hx/Imm Hx Endocrine/Hematology History: Reports: Hx Anemia - gets epogen shot Denies: Hx Blood Disorders, Hx Blood Transfusions, Hx Bone Marrow Disease, Hx Diabetes, Hx Systemic Lupus Erythematosus, Hx Thyroid Disease, Hx Unexplained Bleeding Cardiovascular History: Reports: Hx Aneurysm, Hx Cardiomegaly, Hx Congestive Heart Failure, Hx Coronary Artery Disease, Hx Hypercholesterolemia, Hx Hypertension, Other Cardiovascular Problems/Disorders - CAD, NE, MURMUR Denies: Hx Pacemaker/ICD, Hx Peripheral Vascular Disease Respiratory History: Reports: Hx Chronic Obstructive Pulmonary Disease (COPD) - PT DENIES, Hx Pleural Effusion Denies: Hx Pneumonia, Hx Pulmonary Edema, Hx Pulmonary Embolism, Hx Seasonal Allergies, Hx Sleep Apnea GI History: Reports: Hx Diverticulosis, Hx Gastroesophageal Reflux Disease, Hx Ulcer History: Reports: Hx Chronic Renal Failure, Hx Dialysis - HEMODIALYSIS [facility]IA [facility], Hx Kidney Infection, Hx Renal Disease - ESRD, polycystic kidney disease , Other Problems/Disorders - polycystic kidney Denies: Hx Kidney Stones Musculoskeletal History: Reports: Hx Arthritis, Hx Rheumatoid Arthritis, Hx Back Problems, Hx Orthopedic Injury - left hip fx, Other Musculoskeletal History - LEFT HIP FX Denies: Hx Osteoporosis Sensory History: Reports: Hx Contacts or Glasses Denies: Hx Cataracts, Hx Eye Injury, Hx Eye Prosthesis, Hx Glaucoma, Hx Legally Blind, Hx Macular Degeneration, Hx Vision Problem, Hx Deafness, Hx Hearing Aid, Hx Hearing Problem Opthamlomology History: Reports: Hx Contacts or Glasses Denies: Hx Cataracts, Hx Eye Injury, Hx Eye Prosthesis, Hx Glaucoma, Hx Legally Blind, Hx Macular Degeneration, Hx Vision Problem Neurological History: Reports: Hx CVA, Other Neuro Impairments/Disorders - brain aneurism x5 per pt Denies: Hx Dementia, Hx Developmental Delay, Hx Headaches, Hx Migraine, Hx Nerve Disease, Hx Seizures Psychiatric History: Reports: Hx Anxiety, Hx Depression Denies: Hx Panic Disorder, Hx Post Traumatic Stress Disorder, Other Psychiatric Issues/Disorders - Cancer History Hx Chemotherapy: No - Surgical History Surgery Procedure, Year, and Place: dialysis port x2 Hx Anesthesia Reactions: No - Immunization History Date of Tetanus Vaccine: Unknown Infectious Disease History: No Infectious Disease History: Denies: Hx Tuberculosis, Traveled Outside the [place] in Last 30 Days - Family History Known Family History: Negative: Cardiac Disease, Hypertension, Diabetes - Social History Occupation: Disabled Lives: At [employer] Alcohol Use: None Hx Substance Use: No Substance Use Type: Reports: None Hx Tobacco Use: Yes Smoking Status (MU): Former Smoker Type: Cigarettes Amount Used/How Often: not much, only while in college Have You Smoked in the Last Year: No Review of Systems Negative: Fever, Chills Negative: Erythema Negative: Sore Throat Negative: Chest Pain Positive: Shortness Of Breath. Negative: Cough Negative: Abdominal Pain, Vomiting, Nausea Negative: dysuria, hematuria Negative: Myalgia, Edema Negative: Rash Neurological: Other - NEGATIVE: Dizziness All Other Systems Reviewed And Are Negative: Yes Physical Exam - Summary Physical Exam Summary: Constitutional: Well-developed, Well-nourished, Alert. (+) Distressed. Fatigued appearing Skin: Warm, Dry HENT: Normocephalic; Atraumatic Eyes: Conjunctiva normal Neck: Musculoskeletal ROM normal neck. (-) JVD, (-) Stridor, (-) Tracheal deviation Cardio: Rhythm regular, rate normal, Heart sounds normal; Intact distal pulses; The pedal pulses are 2+ and symmetric. Radial pulses are 2+ and symmetric. (-) Murmur Pulmonary/Chest wall: Gasping effort. (+) Respiratory distress, (-) Wheezes, (- ) Rales. (+) crackles. Diminished breath sounds in bilateral bases. Abd: Soft, (-) epigastric tenderness, (-) Distension, (-) Guarding, (-) Rebound Musculoskeletal: (-) Edema Lymph: (-) Cervical adenopathy Neuro: Alert, Oriented x3 Psych: Mood and affect Normal Triage Information Reviewed: Yes Vital Signs On Initial Exam: Initial Vitals Temp Pulse Resp BP Pulse Ox 99.4 F 84 24 170/88 92 03/05/18 11:52 03/05/18 11:52 03/05/18 11:52 03/05/18 11:52 03/05/18 11:52 Vital Signs Reviewed: Yes Diagnostics - Vital Signs Vital Signs Temp Pulse Resp BP Pulse Ox 03/05/18 12:22 18 03/05/18 11:52 99.4 F 84 24 170/88 92 - Laboratory Result Diagrams: 03/05/18 12:12 03/05/18 12:12 Lab Statement: Any lab studies that have been ordered have been reviewed, and results considered in the medical decision making process. - Radiology CXR Xray Interpretation: Positive (See Comments) Radiology Interpretation Completed By: Radiologist - The constellation of findings is consistent with worsening pulmonary edema with pleural effusions. Dr. Beal has reviewed this report. - EKG 1158 Cardiac Rate: NL - 82 EKG Rhythm: Sinus Rhythm Ectopy: None EKG Interpretation: T wave inversions in leads v5 and v6. Re-Evaluation - Re-Evaluation First Eval Re-Evaluation Time: 12:49 Change: Unchanged Comment: Responsive to verbal stimulus. Course/Dx - Course Course Of Treatment: A 57-year-old F presents to the ED with a CC of SOB s/p a panic attack. (-) cough. Pt lives at [facility]. PMHx ESRD, dialysis saturday, saturday, and saturday; she has not had her dialysis yet today. A CXR reveals The constellation of findings is consistent with worsening pulmonary edema with pleural effusions. An EKG reveals NSR at 82 BPM with T- wave inversions in leads V5 and V6. In the ED course, pt was given duoneb, solumedrol, and cefepime. Pt labs showed abnl levels of WBC, RBC, H&H, RDW, lymph %, mono %, eos %, abs neuts, abs lymphs, abs monos, ,abs eos, ABG pCO2 of 82, ABG pH, ABG pO2, ABD base excess, Cl-, BUN, creatinine, alkaline phosphatase , and total protein. PO ativan administered at 1000 AM, ambulance called at 1015. - Diagnoses Provider Diagnoses: Acute respiratory failure, ESRD (end stage renal disease), Fluid overload - Physician Notifications Discussed Care of Patient With: Jet Bianchi Time Discussed With Above Provider: 13:00 Instructed by Provider To: Other - Agreed with emergent dialysis. - Critical Care Time Critical Care Time: 75-104 min - 75 Discharge - Sign-Out/Discharge Documenting (check all that apply): Patient Departure - admit - Discharge Plan Condition: Critical Disposition: ADMITTED TO [facility] Referrals: Letty Duffy MD [Primary Care Provider] - - Attestation Statements Document Initiated by Scribe: Yes Documenting Scribe: Martin Montes Provider For Whom Scribe is Documenting (Include Credential): Dr. Ad Beal MD Scribe Attestation: IMartin, scribed for Dr. Ad Beal MD on 03/05/18 at 1532. Consult Consult: 1415 Dr. Bianchi: Informed him that pt is deteriorating, still needs emergent dialysis. 1436 Dr. 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
[2018-03-05 12:42] LABS: Hematocrit 32 % (35-47); Hemoglobin 9.8 g/dl (12.0-16.0); Mean Corpuscular HGB Conc 31 g/dl (31-36); Mean Corpuscular Hemoglobin 28 pg (27-31); Mean Corpuscular Volume 90 fL (80-97); Red Blood Count 3.53 10^6/ul (4.00-5.40); Red Cell Distribution Width 17 % (10.5-15); White Blood Count 11.2 10^3/ul (3.5-10.8)
[2018-03-05] MEDS ORDERED: Cefepime 2 GM in Dextrose(*) 2 GM/50 ML BAG IV ONE (12:44)
[2018-03-05 13:04] LABS: ABS Basophils 0.1 10^3/ul (0-0.2); ABS Eosinophils 1.3 10^3/ul (0-0.6); ABS Lymphocytes 0.9 10^3/ul (1.0-4.8); ABS Monocytes 1.1 10^3/ul (0-0.8); ABS Neutrophils 7.9 10^3/ul (1.5-7.7); ABS Nucleated RBC 0 10^3/ul; EGFR Non-African American 10.9 (>60); Eosinophil % 11.5 % (0-6); Lymphocyte % 7.8 % (25-47); Nucleated Red Blood Cells % 0.1; Platelet Count 219 10^3/ul (150-450)
[2018-03-05] MEDS ORDERED: Flumazenil* 0.1 MG/ML 5 ML MDV ONE (14:35)
[2018-03-05] MEDS ORDERED: Flumazenil* 0.1 MG/ML 5 ML MDV IV ONE (14:37)
[2018-03-05] MEDS ORDERED: Heparin DIALYSIS ONLY(*) 1,000 UNITS/ML VIAL DIALYSIS STA (16:02)
[2018-03-05] MEDS ORDERED: Ondansetron TAB* 4 MG PO PRN (17:05)
[2018-03-05] MEDS: Clopidogrel TAB* 75 MG PO SCH (18:21)
[2018-03-05] MEDS: Carvedilol TAB* 25 MG PO SCH (20:42)
[2018-03-05] MEDS: CMC:Pantoprazole TAB (NF) 40 MG TAB PO SCH (20:42)
[2018-03-05] MEDS: Atorvastatin* 20 MG TAB PO SCH (20:42)
--- NOTE | 2018-03-05 22:02 | HP ---
ADMISSION HISTORY AND PHYSICAL: DATE OF ADMISSION: 03/05/18 REASON FOR ADMISSION: Respiratory failure and altered mental status. HISTORY OF PRESENT ILLNESS: The patient is a 57-year-old white female known to this service with history of end-stage renal disease (on chronic hemodialysis), coronary artery disease (status post stent placement), and severe kyphoscoliosis , who was recently in the hospital here for respiratory failure aggravated by aggressive use of benzodiazepines. The patient was returned to her senior care yesterday and this morning was brought back to the emergency department, obtunded and with shallow breathing. ABGs revealed a PCO2 of 82 and a pH of 7.22 (consistent with [id number] hypercapnia).The patient was given 0.2 mg of flumazenil intravenously and immediately woke up and showed more vigorous breathing. She was subsequently admitted to the ICU with a preliminary diagnosis of ohpim-[id number] respiratory failure due to the combination of kyphoscoliotic COPD and benzodiazepines. Patient's son is present, but no other history (from the senior care) available at at this time. MEDICATIONS: Meds on discharge from her last hospitalization included the followin. Amlodipine (10 mg daily). 2. Aspirin (81 mg daily). 3. Atorvastatin (20 mg daily). 4. Carvedilol (50 mg p.o. b.i.d.). 5. Plavix (75 mg p.o. daily). 6. Hydrocodone/acetaminophen ([place]) 5/325 (1 tablet t.i.d. p.r.n. pain). 7. Ativan (0.5 mg p.o. q.4 hours p.r.n. agitation). 8. Methadone (5 mg p.o. q.12 hours). 9. Omeprazole (20 mg p.o. daily). 10. Sertraline (50 mg p.o. daily). 11. Etanercept (25 mg subcutaneously weekly). SOCIAL HISTORY: The patient is a resident of [facility]. There is no history of recent alcohol or drug abuse. The patient's is and she has a 30-year-old son, who is the principal caregiver. REVIEW OF SYSTEMS: Unobtainable. PHYSICAL EXAMINATION GENERAL: The patient was somnolent, but arousable after the flumazenil. VITAL SIGNS: Temp 99.4, blood pressure 120/60, heart rate 72 and regular, respiratory rate 25, O2 saturation 99% with an FiO2 of 40%. HEENT: Pupils mid position and reactive. No facial asymmetry. NECK: No jugular venous distention. LUNGS: Breath sounds distant. No crackles or wheezes. CARDIAC: Heart sounds distant. No murmurs or rubs. ABDOMEN: Not distended and nontender. EXTREMITIES: Cool but not cyanotic. There was 1 to 2+ peripheral edema. ADMISSION LABORATORY DATA: White count was 11.2, hemoglobin 9.8, platelet count 219,000. Electrolytes: Sodium, potassium, and chloride were normal. BUN was 26, creatinine 4.19, albumin 3.4, lactic acid 0.5. Arterial blood gas as mentioned. IMAGING: Chest x-ray showed hyperinflation with flattening of the diaphragms consistent with a diagnosis of COPD. EKG showed a normal sinus rhythm with LVH by ST and T-wave changes. There was no evidence of ischemia. IMPRESSION: This patient has advanced kyphoscoliosis and chronic hypercapnic respiratory failure, and the addition of benzodiazepines appears to exacerbate that situation, prompting the past 2 admissions. The patient has a history of anxiety disorder managed with benzodiazepines. She is also on opiates for low back pain and that certainly adds to the problem. The positive response of flumazenil in the emergency department today indicates that benzodiazepines are a major player in this admission. MANAGEMENT PLAN: Wll discontinue benzodiazepines and use an alternative anxiolytic (? hydroxyzine). The patient will be dialyzed today. Her son is present at the bedside and was informed of the current diagnosis and management plan. TIME SPENT: Critical care time: 65 minutes. [id number]/CPS #: [id number] EL
[2018-03-06 05:36] LABS: INR 0.98 (0.77-1.02)
[2018-03-06 05:44] LABS: Hematocrit 31 % (35-47); Hemoglobin 9.5 g/dl (12.0-16.0); Mean Corpuscular HGB Conc 31 g/dl (31-36); Mean Corpuscular Hemoglobin 27 pg (27-31); Mean Corpuscular Volume 87 fL (80-97); Mean Platelet Volume 8.1 um3 (7.4-10.4); Platelet Count 197 10^3/ul (150-450); Red Blood Count 3.52 10^6/ul (4.00-5.40); Red Cell Distribution Width 18 % (10.5-15); White Blood Count 5.9 10^3/ul (3.5-10.8)
[2018-03-06 05:55] LABS: EGFR Non-African American 10.7 (>60)
[2018-03-06] MEDS: Heparin VIAL(*) 5000 UNITS/ML VIAL (FIVE THOUSAND) SUBCUT SCH ×2 (06:34→17:54)
[2018-03-06] MEDS: Carvedilol TAB* 25 MG PO SCH ×2 (08:51→22:06)
[2018-03-06] MEDS: ALISKIREN 150 MG PO SCH (08:51)
[2018-03-06] MEDS: Calcitriol CAP* 0.25 MCG PO SCH (08:51)
[2018-03-06] MEDS: Aspirin EC TAB* 81 MG TAB.EC PO SCH (08:51)
[2018-03-06] MEDS: Sertraline* 50 MG TAB PO SCH (08:52)
[2018-03-06] MEDS: amLODIPine TAB* 5 MG PO SCH (08:52)
[2018-03-06] MEDS: HYDROcodone/ACETAMIN 5-325 MG* 1 TAB PO PRN ×2 (08:53→22:07)
[2018-03-06] MEDS ORDERED: KCL 20 MEQ/100 ML IVPREMIX* 20 MEQ/100 ML BAG IV SCH (11:00)
--- NOTE | 2018-03-06 11:57 | PN ---
Date of Service: 03/06/18 Critical Care Services: Doing well this AM. Is awake, oritnted, and up in chair eating breakfast. Had an episode of anxiety last night that resolved without meds. Vital Signs: Temp Pulse Resp BP SpO2 FiO2 100.2 F 71 26 120/60 100 35 Physical Exam: Gen:Alert, oriented, and appears comfortable Lungs: BS distant Cardiac: I/ early systolic murmur (probable flow murmur) Extremities:No cyanosis or edema Fluid Balance (Past 24 Hours): 03/06/18 06:59 Intake Total 470 Output Total 0 Balance 470 Weight 120 lb 2.431 oz Intake: IV Fluids 50 Oral 420 Output: Urine 0 NOTE: Patient was dialysed yesterday with removal of 2.5 liters. Labs: 03/05/18 03/05/18 03/05/18 12:12 12:12 12:12 WBC 11.2 H RBC 3.53 L Hgb 9.8 L Hct 32 L MCV 90 MCH 28 MCHC 31 RDW 17 H Plt Count 219 MPV 8.0 Sodium 137 Potassium 4.5 Chloride 97 L Carbon Dioxide 29 Anion Gap 11 BUN 26 H Creatinine 4.19 H Est GFR ( Amer) 13.2 Est GFR (Non-Af Amer) 10.9 BUN/Creatinine Ratio 6.2 L Glucose 87 Lactic Acid 0.5 Calcium 9.2 Total Bilirubin 0.40 AST 22 ALT 20 Alkaline Phosphatase 113 H Total Protein 5.9 L Albumin 3.4 Globulin 2.5 Albumin/Globulin Ratio 1.4 03/05/18 03/06/18 03/06/18 13:00 05:22 05:22 WBC 5.9 RBC 3.52 L Hgb 9.5 L Hct 31 L MCV 87 MCH 27 MCHC 31 RDW 18 H Plt Count 197 MPV 8.1 Neut % (Auto) Lymph % (Auto) [place] % (Auto) Eos % (Auto) Baso % (Auto) Absolute Neuts (auto) Absolute Lymphs (auto) Absolute Monos (auto) Absolute Eos (auto) Absolute Basos (auto) Absolute Nucleated RBC Nucleated RBC % INR (Anticoag Therapy) ABG pH 7.22 L ABG pCO2 82 H* ABG pO2 116 H ABG HCO3 27.0 ABG O2 Saturation 97.5 ABG Base Excess 2.8 H O2 Delivery Device oxymask 6lpm Sodium 135 Potassium 4.8 Chloride 95 L Carbon Dioxide 32 Anion Gap 8 BUN 29 H Creatinine 4.27 H Glucose 129 H Lactic Acid Calcium 8.9 Total Bilirubin AST ALT Alkaline Phosphatase Total Protein Albumin Globulin Albumin/Globulin Ratio Studies: None today Nutrition: Oral diet Impression: Doing well. Needs alternative to benzodiazepines for anxiolysis. Plan: 1. Start PO hydroxyzine (25 mg q4h PRN) for anxiety. 2. Son wants to change nursing homes (from [facility]), and he will meet with discharge planners to organize this effort. 3. Continue hemodialysis as normally scheduled. 4. Transfer out of ICU today.
[2018-03-06] MEDS: hydrOXYzine HCL TAB* 25 MG PO PRN ×2 (13:03→22:06)
[2018-03-06] MEDS: Clopidogrel TAB* 75 MG PO SCH (17:53)
[2018-03-06] MEDS: Atorvastatin* 20 MG TAB PO SCH (22:06)
[2018-03-06] MEDS: CMC:Pantoprazole TAB (NF) 40 MG TAB PO SCH (22:06)
[2018-03-06] MEDS: Methadone TAB* 5 MG PO PRN (23:05)
[2018-03-07] MEDS: Heparin VIAL(*) 5000 UNITS/ML VIAL (FIVE THOUSAND) SUBCUT SCH ×2 (06:13→17:21)
[2018-03-07 07:00] LABS: EGFR Non-African American 8.1 (>60)
[2018-03-07] MEDS: Calcitriol CAP* 0.25 MCG PO SCH (09:44)
[2018-03-07] MEDS: Carvedilol TAB* 25 MG PO SCH ×2 (09:44→20:08)
[2018-03-07] MEDS: Aspirin EC TAB* 81 MG TAB.EC PO SCH (09:45)
[2018-03-07] MEDS: amLODIPine TAB* 5 MG PO SCH (09:45)
[2018-03-07] MEDS: Sertraline* 50 MG TAB PO SCH (09:45)
[2018-03-07] MEDS: ALISKIREN 150 MG PO SCH (09:45)
[2018-03-07] MEDS: HYDROcodone/ACETAMIN 5-325 MG* 1 TAB PO PRN ×2 (09:54→15:40)
[2018-03-07] MEDS: hydrOXYzine HCL TAB* 25 MG PO PRN ×2 (09:54→15:40)
[2018-03-07] MEDS ORDERED: Heparin DIALYSIS ONLY(*) 1,000 UNITS/ML VIAL DIALYSIS ONE (12:00)
--- NOTE | 2018-03-07 14:04 | PN ---
Subjective Date of Service: 03/07/18 Interval History: Patient seen and examined at bedside while in dialysis. Pt very anxious saying she can't do it anymore. Pt encouraged to take deep breaths, Pt able to relax and rest in chair. Denies fever, chills, shortness of breath, chest discomfort, N/V/D. Pt states that she is having back pain. Family History: Unchanged from Admission Social History: Unchanged from Admission Past Medical History: Unchanged from Admission Objective Active Medications: Hydrocodone Bitart/Acetaminophen ([place] 5-325 Tab*) 1 tab PO Q6H PRN Reason: PAIN Aliskiren (Tekturna Tab*) 300 mg PO DAILY GUY Amlodipine Besylate (Norvasc Tab*) 10 mg PO DAILY GUY Aspirin (Aspirin Ec Tab*) 81 mg PO DAILY [facility] Atorvastatin Calcium (Lipitor*) 20 mg PO BEDTIME [facility] Calcitriol (Rocaltrol Cap*) 0.25 mcg PO QAM [facility] Carvedilol (Coreg Tab*) 50 mg PO BID [facility] Clopidogrel Bisulfate (Plavix Tab*) 75 mg PO QPM [facility] Heparin Sodium (Porcine) (Heparin Vial(*)) 5,000 units SUBCUT Q12H GU[facility] Hydroxyzine HCl (Atarax Tab*) 25 mg PO Q4H PRN Reason: ANXIETY Methadone HCl (Dolophine Tab*) 5 mg PO Q12H PRN Reason: PAIN Ondansetron HCl (Zofran Tab*) 4 mg PO Q8H PRN Reason: NAUSEA Pantoprazole Sodium (Protonix Tab (Nf)) 40 mg PO BEDTIME [facility] Sertraline HCl (Zoloft*) 50 mg PO DAILY [facility] Vital Signs - 8 hr 03/07/18 03/07/18 03/07/18 07:27 08:00 09:54 Temperature 97.8 F Respiratory 10 18 16 Rate Blood Pressure 143/65 (mmHg) O2 Sat by Pulse 99 99 Oximetry Oxygen Devices in Use Now: None Appearance: NAD, sitting up in chair Ears/Nose/Mouth/Throat: Mucous Membranes Moist Respiratory: Symmetrical Chest Expansion and Respiratory Effort, Clear to Auscultation - , diminished Cardiovascular: NL Sounds; No Murmurs; No JVD, RRR Abdominal: NL Sounds; No Tenderness; No Distention Extremities: No Edema Skin: - - Skin gerardo in color Neurological: Alert and Oriented x 3 - , anxious Lines/Tubes/Other Access: Clean, Dry and Intact Peripheral IV, Clean, Dry and Intact Other Access - Hemodialysis cath in place, site benign Nutrition: Taking PO's Result Diagrams: 03/06/18 05:22 03/07/18 06:24 Assess/Plan/Problems-Billing Assessment: Ms. 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 - Patient Problems (1) Respiratory failure Code(s): J96.90 - RESPIRATORY FAILURE, UNSP, UNSP W HYPOXIA OR HYPERCAPNIA SNOMED Code(s): 780421445 Comment: - Acute on chronic hypercarbic/hypoxic - Suspect secondary to pain medication and benzodiazepines - Received flumazenil in the ED - AVOID benzodiazepines - Continue to wean supplemental O2 (2) Anxiety Code(s): F41.9 - ANXIETY DISORDER, UNSPECIFIED SNOMED Code(s): 27295978 Comment: - Continue sertraline daily and hyproxyzine PRN - AVOID benzodiazepams - May consider adding Buspar if continues to have significant anxiety (3) Altered mental status Code(s): R41.82 - ALTERED MENTAL STATUS, UNSPECIFIED SNOMED Code(s): 211940515 Comment: - Resolved - Suspect secondary to benzodiazepem use in setting of ESRD (4) End stage renal failure on dialysis Code(s): N18.6 - END STAGE RENAL DISEASE; Z99.2 - DEPENDENCE ON RENAL DIALYSIS SNOMED Code(s): 663811794 Comment: - Management per Dr. Bianchi - Continue Hemodialysis (MWF) (5) Anemia Code(s): D64.9 - ANEMIA, UNSPECIFIED SNOMED Code(s): 082304912 Comment: - HH near baseline - Secondary to Chronic disease/ESRD - Continue supportive care (6) Systolic CHF Code(s): I50.20 - UNSPECIFIED SYSTOLIC (CONGESTIVE) HEART FAILURE SNOMED Code( s): 873206477 Comment: - 11/2017 Echo shows EF 55% - Continue Coreg and Tekturna (7) CVA (cerebral vascular accident) Code(s): I63.9 - CEREBRAL INFARCTION, UNSPECIFIED SNOMED Code(s): 268422432 Comment: - Continue ASA and Plavix - Will need to re-eval need for duel anti-platelet therapy since Pt has been on for more than 30 days, planned starting 11/29 (will try to obtain records to see if there is still a reason for her to still be on duel anti-platelet (8) CAD (coronary artery disease) Code(s): I25.10 - ATHSCL HEART DISEASE OF [place] CORONARY ARTERY W/O ANG PCTRS SNOMED Code(s): 17783403 Comment: - Denies chest pain - Continue Atorvastatin and Carvedilol (9) Chronic pain Code(s): G89.29 - OTHER CHRONIC PAIN SNOMED Code(s): 75559795 Comment: - Continue methadone and Hydrocodone PRN for breakthrough pain (use caution with ESRD) (10) COPD (chronic obstructive pulmonary disease) Code(s): J44.9 - CHRONIC OBSTRUCTIVE PULMONARY DISEASE, UNSPECIFIED SNOMED Code(s): 84899262 Comment: - No signs of acute exacerbation - With Chronic hypoxic/hypercarbic respiratory failure - Continue supplemental O2 (11) HTN (hypertension) Code(s): I10 - ESSENTIAL (PRIMARY) HYPERTENSION SNOMED Code(s): 12872475 Comment: - Normotensive, SBP 120-140's - Continue Amlodipine, tekturna, and coreg (12) History of depression Code(s): Z86.59 - PERSONAL HISTORY OF OTHER MENTAL AND BEHAVIORAL DISORDERS SNOMED Code(s): 700196851 Comment: - Continue sertraline. (13) Hx of osteoporosis Code(s): Z87.39 - PERSONAL HISTORY OF DISEASES OF THE MS SYS AND CONN TISS SNOMED Code(s): 232413849 (14) Rheumatoid arthritis Code(s): M06.9 - RHEUMATOID ARTHRITIS, UNSPECIFIED SNOMED Code(s): 63004908 Comment: - Hold Enbrel (15) DVT prophylaxis Code(s): TDT5982 - SNOMED Code(s): 909711158 Comment: - SQ Heparin q12H given ESRD (16) Full code status Code(s): Z78.9 - OTHER SPECIFIED HEALTH STATUS SNOMED Code(s): 204430549 Status and Disposition: Inpatient. Discharge to [facility] when medically stable, suspect she will be ready in 1-2 days. Attending: Pradeep Duffy
[2018-03-07] MEDS: Methadone TAB* 5 MG PO PRN (15:40)
[2018-03-07] MEDS: Clopidogrel TAB* 75 MG PO SCH (17:22)
[2018-03-07] MEDS ORDERED: Acetaminophen TAB* 325 MG PO PRN (19:46)
[2018-03-07] MEDS ORDERED: Magnesium Hydroxide LIQ* 30 ML UDC PO PRN (20:05)
[2018-03-07] MEDS ORDERED: Docusate CAP* 100 MG PO PRN (20:05)
[2018-03-07] MEDS ORDERED: Senna TAB PO PRN (20:05)
[2018-03-07] MEDS: Atorvastatin* 20 MG TAB PO SCH (20:08)
[2018-03-07] MEDS: CMC:Pantoprazole TAB (NF) 40 MG TAB PO SCH (20:08)
[2018-03-08] MEDS: Heparin VIAL(*) 5000 UNITS/ML VIAL (FIVE THOUSAND) SUBCUT SCH ×2 (05:53→18:00)
[2018-03-08 06:46] LABS: EGFR Non-African American 14.5 (>60)
[2018-03-08] MEDS: ALISKIREN 150 MG PO SCH (08:45)
[2018-03-08] MEDS: Carvedilol TAB* 25 MG PO SCH ×2 (08:45→20:09)
[2018-03-08] MEDS: amLODIPine TAB* 5 MG PO SCH (08:46)
[2018-03-08] MEDS: Aspirin EC TAB* 81 MG TAB.EC PO SCH (08:46)
[2018-03-08] MEDS: Sertraline* 50 MG TAB PO SCH (08:46)
[2018-03-08] MEDS: Calcitriol CAP* 0.25 MCG PO SCH (08:47)
[2018-03-08] MEDS: hydrOXYzine HCL TAB* 25 MG PO PRN ×3 (10:06→22:23)
--- NOTE | 2018-03-08 11:18 | RAD ---
HISTORY: shortness of breath COMPARISONS: March 05, 2018 VIEWS: 1: frontal AP view of the chest at 10:30 AM FINDINGS: LINES AND TUBES: A central venous catheter is noted with the tip overlying the cavoatrial junction. CARDIOMEDIASTINAL SILHOUETTE: The cardiac silhouette is enlarged. The cardiomediastinal silhouette is otherwise normal for portable technique. PLEURA: There are small bilateral pleural effusions, greater on the left than on the right. LUNG PARENCHYMA: There is a diffuse reticular pattern with indistinct pulmonary vessels. There is been mild improvement compared to the previous examination. ABDOMEN: The upper abdomen is clear. There is no subphrenic gas. BONES AND SOFT TISSUES: No bone or soft tissue abnormalities are noted. IMPRESSION: CARDIOMEGALY WITH PERSISTENT PULMONARY INTERSTITIAL EDEMA AND BILATERAL PLEURAL EFFUSIONS, SLIGHTLY IMPROVED FROM THE 2017 EXAMINATION.
[2018-03-08] MEDS: HYDROcodone/ACETAMIN 5-325 MG* 1 TAB PO PRN ×2 (13:53→22:23)
--- NOTE | 2018-03-08 15:39 | PN ---
Subjective Date of Service: 03/08/18 Interval History: Ms. Charles says "nothing is okay" and gets frustrated when I ask her more about this. She says she always feels worse after she takes her morning medications. She feels like she can't feed herself, but when I have her show me , she is able to feed herself. She cannot describe what does not feel right to her. She feels short of breath and anxious. She has no pain. Family History: Unchanged from Admission Social History: Unchanged from Admission Past Medical History: Unchanged from Admission Objective Active Medications: Acetaminophen (Tylenol Tab*) 650 mg PO Q4H PRN PRN Reason: PAIN Hydrocodone Bitart/Acetaminophen ([place] 5-325 Tab*) 1 tab PO Q6H PRN PRN Reason: PAIN - BREAKTHROUGH Last Admin: 03/08/18 13:53 Dose: 1 tab Albuterol (Ventolin 2.5 Mg/3 Ml Neb.Francy*) 2.5 mg INH Q4H PRN PRN Reason: SOB/WHEEZING Aliskiren (Tekturna Tab*) 300 mg PO DAILY [facility] Last Admin: 03/08/18 08:45 Dose: 300 mg Amlodipine Besylate (Norvasc Tab*) 10 mg PO DAILY [facility] Last Admin: 03/08/18 08:46 Dose: 10 mg Aspirin (Aspirin Ec Tab*) 81 mg PO DAILY [facility] Last Admin: 03/08/18 08:46 Dose: 81 mg Atorvastatin Calcium (Lipitor*) 20 mg PO BEDTIME [facility] Last Admin: 03/07/18 20:08 Dose: 20 mg Calcitriol (Rocaltrol Cap*) 0.25 mcg PO QAM [facility] Last Admin: 03/08/18 08:47 Dose: 0.25 mcg Carvedilol (Coreg Tab*) 50 mg PO BID [facility] Last Admin: 03/08/18 08:45 Dose: 50 mg Clopidogrel Bisulfate (Plavix Tab*) 75 mg PO QPM [facility] Last Admin: 03/07/18 17:22 Dose: 75 mg Docusate Sodium (Colace Cap*) 100 mg PO BID PRN PRN Reason: CONSTIPATION Heparin Sodium (Porcine) (Heparin Vial(*)) 5,000 units SUBCUT Q12H [facility] Last Admin: 03/08/18 05:53 Dose: 5,000 units Hydroxyzine HCl (Atarax Tab*) 25 mg PO Q4H PRN PRN Reason: ANXIETY Last Admin: 03/08/18 13:53 Dose: 25 mg Magnesium Hydroxide (Milk Of Magnesia Liq*) 30 ml PO BID PRN PRN Reason: CONSTIPATION Methadone HCl (Dolophine Tab*) 5 mg PO Q12H PRN PRN Reason: PAIN Last Admin: 03/07/18 15:40 Dose: 5 mg Ondansetron HCl (Zofran Tab*) 4 mg PO Q8H PRN PRN Reason: NAUSEA Pantoprazole Sodium (Protonix Tab (Nf)) 40 mg PO BEDTIME [facility] Last Admin: 03/07/18 20:08 Dose: 40 mg Senna (Senokot Tab*) 1 tab PO BEDTIME PRN PRN Reason: CONSTIPATION Sertraline HCl (Zoloft*) 50 mg PO DAILY [facility] Last Admin: 03/08/18 08:46 Dose: 50 mg Vital Signs - 8 hr 03/08/18 03/08/18 03/08/18 08:00 08:15 13:53 Temperature 97.8 F Pulse Rate 59 Respiratory 16 16 18 Rate Blood Pressure 140/66 (mmHg) O2 Sat by Pulse 100 100 Oximetry Oxygen Devices in Use Now: Nasal Cannula Appearance: ill appearing, thin, pale, kyphotic Eyes: No Scleral Icterus Ears/Nose/Mouth/Throat: NL Teeth, Lips, Gums Neck: - - distended external jugular veins Respiratory: Symmetrical Chest Expansion and Respiratory Effort, Clear to Auscultation Cardiovascular: NL Sounds; No Murmurs; No JVD, - - systolic murmur throughout. permcath right chest wall. Abdominal: - - distended, nontender Lymphatic: No Cervical Adenopathy Extremities: No Edema Skin: - - healing lacerations b/l shins Neurological: Alert and Oriented x 3, - - muscular atrophy Result Diagrams: 03/06/18 05:22 03/08/18 06:20 Assess/Plan/Problems-Billing Assessment: Ms. Charles is a 57 yo female with PMH significant for ESRD on hemodialysis, CAD, severe kyphosis who presented to the emergency room with respiratory failure and altered mental status from [facility]. - Patient Problems (1) Toxic encephalopathy Current Visit: Yes Status: Acute Code(s): G92 - TOXIC ENCEPHALOPATHY SNOMED Code(s): 82142497 Comment: Likely related to benzodiazepines Resolved after flumazenil in the ED (2) Respiratory failure Current Visit: Yes Status: Acute Code(s): J96.90 - RESPIRATORY FAILURE, UNSP , UNSP W HYPOXIA OR HYPERCAPNIA SNOMED Code(s): 933008545 Comment: Acute on chronic hypercarbic/hypoxic Likely multifactorial and related to benzos and kyphosis Now on baseline home O2 requirement (2L) Repeat CXR today showed improved aeration (3) Anxiety Current Visit: Yes Status: Chronic Priority: High Onset Date: 01/26/14 Code(s): F41.9 - ANXIETY DISORDER, UNSPECIFIED SNOMED Code(s): 21501009 Comment: Continue sertraline daily and hyproxyzine PRN -- QTc needs to be monitored with the hydoxyzine/methadone combination; will recheck ekg AVOID benzos Buspirone may help and can be considered, especially if her QTc is a concern (4) CAD (coronary artery disease) Current Visit: No Status: Acute Code(s): I25.10 - ATHSCL HEART DISEASE OF [place] CORONARY ARTERY W/O ANG PCTRS SNOMED Code(s): 24455591 Comment: continue coreg and statin (5) Chronic pain Current Visit: No Status: Acute Code(s): G89.29 - OTHER CHRONIC PAIN SNOMED Code(s): 56403409 Comment: continue methadone and Hydrocodone PRN for breakthrough pain (use caution with ESRD) (6) End stage renal failure on dialysis Current Visit: No Status: Acute Code(s): N18.6 - END STAGE RENAL DISEASE; Z99.2 - DEPENDENCE ON RENAL DIALYSIS SNOMED Code(s): 712300492 Comment: Related to polycystic kidney disease MWF HD Lytes okay Volume okay Status and Disposition: Medically stable for discharge back to . I have discussed this with her son, however he does not want her to go back to [facility] because he feels she has been neglected there. I also discussed alternatives with CM/SW, who have been involved in her case since admission and have attempted to get her accepted to another facility but have been unsuccessful due to hemodialysis.
[2018-03-08] MEDS: Clopidogrel TAB* 75 MG PO SCH (18:00)
[2018-03-08] MEDS: CMC:Pantoprazole TAB (NF) 40 MG TAB PO SCH (20:09)
[2018-03-08] MEDS: Atorvastatin* 20 MG TAB PO SCH (20:09)
[2018-03-09] MEDS: Heparin VIAL(*) 5000 UNITS/ML VIAL (FIVE THOUSAND) SUBCUT SCH ×2 (05:29→17:46)
[2018-03-09] MEDS: hydrOXYzine HCL TAB* 25 MG PO PRN ×2 (05:44→20:25)
[2018-03-09] MEDS: Aspirin EC TAB* 81 MG TAB.EC PO SCH (08:06)
[2018-03-09] MEDS: Sertraline* 50 MG TAB PO SCH (08:07)
[2018-03-09] MEDS: Carvedilol TAB* 25 MG PO SCH ×2 (08:07→20:26)
[2018-03-09] MEDS: amLODIPine TAB* 5 MG PO SCH (08:07)
[2018-03-09] MEDS: Calcitriol CAP* 0.25 MCG PO SCH (08:09)
[2018-03-09] MEDS: ALISKIREN 150 MG PO SCH (08:09)
[2018-03-09] MEDS: HYDROcodone/ACETAMIN 5-325 MG* 1 TAB PO PRN ×2 (09:22→22:25)
--- NOTE | 2018-03-09 09:41 | PN ---
Subjective Date of Service: 03/09/18 Interval History: Ms. Charles and her son appealed her discharge yesterday because they do not want her to go back to [facility]. I spoke with Alex yesterday about the limited options due to hemodialysis. He understands this but plans to look for other options today. Today, Ms. Charles and I had a long talk about her feelings about her situation and she admits she is completely overwhelmed. She describes feeling "weird" all the time but cannot elaborate on those feelings. She has pain in her back which is chronic and unchanged but she does not know what helps her. She cannot think of any hobbies or interests that bring her pleasure. She used to bird watch. Having her son here brings her some comfort, but she feels that she is a burden on him. She has no other family who are involved in her life. She becomes tearful during our conversation and says she doesn't know what else to do, she is tired of being in pain, being in the hospital, being in a detention. Yesterday we discussed palliative and hospice options when she described feeling "tired of everything" and not wanting to go through so much any more. However, she doesn't feel that she is ready for palliation or hospice, and she definitely wants to continue with dialysis. Family History: Unchanged from Admission Social History: Unchanged from Admission Past Medical History: Unchanged from Admission Objective Active Medications: Acetaminophen (Tylenol Tab*) 650 mg PO Q4H PRN PRN Reason: PAIN Hydrocodone Bitart/Acetaminophen ([place] 5-325 Tab*) 1 tab PO Q6H PRN PRN Reason: PAIN - BREAKTHROUGH Last Admin: 03/09/18 09:22 Dose: 1 tab Albuterol (Ventolin 2.5 Mg/3 Ml Neb.Francy*) 2.5 mg INH Q4H PRN PRN Reason: SOB/WHEEZING Aliskiren (Tekturna Tab*) 300 mg PO DAILY [facility] Last Admin: 03/09/18 08:09 Dose: 300 mg Amlodipine Besylate (Norvasc Tab*) 10 mg PO DAILY [facility] Last Admin: 03/09/18 08:07 Dose: 10 mg Aspirin (Aspirin Ec Tab*) 81 mg PO DAILY [facility] Last Admin: 03/09/18 08:06 Dose: 81 mg Atorvastatin Calcium (Lipitor*) 20 mg PO BEDTIME [facility] Last Admin: 03/08/18 20:09 Dose: 20 mg Buspirone HCl (Buspar Tab*) 5 mg PO ONCE [facility] Calcitriol (Rocaltrol Cap*) 0.25 mcg PO QAM [facility] Last Admin: 03/09/18 08:09 Dose: 0.25 mcg Carvedilol (Coreg Tab*) 50 mg PO BID [facility] Last Admin: 03/09/18 08:07 Dose: 50 mg Clopidogrel Bisulfate (Plavix Tab*) 75 mg PO QPM [facility] Last Admin: 03/08/18 18:00 Dose: 75 mg Docusate Sodium (Colace Cap*) 100 mg PO BID PRN PRN Reason: CONSTIPATION Heparin Sodium (Porcine) (Heparin Vial(*)) 5,000 units SUBCUT Q12H [facility] Last Admin: 03/09/18 05:29 Dose: 5,000 units Hydroxyzine HCl (Atarax Tab*) 25 mg PO Q4H PRN PRN Reason: ANXIETY Last Admin: 03/09/18 05:44 Dose: 25 mg Magnesium Hydroxide (Milk Of Magnesia Liq*) 30 ml PO BID PRN PRN Reason: CONSTIPATION Methadone HCl (Dolophine Tab*) 5 mg PO Q12H PRN PRN Reason: PAIN Last Admin: 03/07/18 15:40 Dose: 5 mg Ondansetron HCl (Zofran Tab*) 4 mg PO Q8H PRN PRN Reason: NAUSEA Pantoprazole Sodium (Protonix Tab (Nf)) 40 mg PO BEDTIME [facility] Last Admin: 03/08/18 20:09 Dose: 40 mg Senna (Senokot Tab*) 1 tab PO BEDTIME PRN PRN Reason: CONSTIPATION Sertraline HCl (Zoloft*) 50 mg PO DAILY [facility] Last Admin: 03/09/18 08:07 Dose: 50 mg Vital Signs - 8 hr 03/09/18 03/09/18 01:58 09:22 Respiratory 18 18 Rate Oxygen Devices in Use Now: Nasal Cannula Appearance: frail, ill appearing, kyphotic, sitting on the edge of the bed eating a muffin Eyes: No Scleral Icterus Ears/Nose/Mouth/Throat: NL Teeth, Lips, Gums Neck: NL Appearance and Movements; NL JVP Respiratory: Symmetrical Chest Expansion and Respiratory Effort, Clear to Auscultation, - - permcath right chest wall Cardiovascular: NL Sounds; No Murmurs; No JVD, RRR Abdominal: NL Sounds; No Tenderness; No Distention Lymphatic: No Cervical Adenopathy Extremities: - - nonpitting edema. healing lacerations b/l shins. strength 5/ 5 in arms, 4/5 in legs. Neurological: - - depressed, tearful Result Diagrams: 03/06/18 05:22 03/08/18 06:20 Assess/Plan/Problems-Billing Assessment: Ms. Charles is a 57 yo female with PMH significant for ESRD on hemodialysis, CAD, severe kyphosis who presented to the emergency room with respiratory failure and altered mental status from [facility]. - Patient Problems (1) Toxic encephalopathy Current Visit: Yes Status: Acute Code(s): G92 - TOXIC ENCEPHALOPATHY SNOMED Code(s): 63089921 Comment: Likely related to benzodiazepines Resolved after flumazenil in the ED (2) Respiratory failure Current Visit: Yes Status: Acute Code(s): J96.90 - RESPIRATORY FAILURE, UNSP , UNSP W HYPOXIA OR HYPERCAPNIA SNOMED Code(s): 179322617 Comment: Acute on chronic hypercarbic/hypoxic Likely multifactorial and related to benzos and kyphosis Now on baseline home O2 requirement (2L) Repeat CXR yesterday showed improved aeration (3) Anxiety Current Visit: Yes Status: Chronic Priority: High Onset Date: 01/26/14 Code(s): F41.9 - ANXIETY DISORDER, UNSPECIFIED SNOMED Code(s): 73531192 Comment: Continue sertraline daily and hyproxyzine PRN -- QTc needs to be monitored with the hydoxyzine/methadone combination; will recheck ekg AVOID benzos I would like to try buspirone, however, I discussed the metabolism of buspirone with the pharmacist. Buspar is metabolized by the liver but excreted by the kidneys. Since she is anuric, metabolites will be higher than desired. It is dialized off, so I am going to order it to be given tomorrow when dialysis is available in case she becomes sedated. (4) CAD (coronary artery disease) Current Visit: No Status: Acute Code(s): I25.10 - ATHSCL HEART DISEASE OF [place] CORONARY ARTERY W/O ANG PCTRS SNOMED Code(s): 78038779 Comment: continue coreg and statin and asa (5) Chronic pain Current Visit: No Status: Acute Code(s): G89.29 - OTHER CHRONIC PAIN SNOMED Code(s): 60042286 Comment: continue methadone and Hydrocodone PRN for breakthrough pain (6) End stage renal failure on dialysis Current Visit: No Status: Acute Code(s): N18.6 - END STAGE RENAL DISEASE; Z99.2 - DEPENDENCE ON RENAL DIALYSIS SNOMED Code(s): 767662724 Comment: Related to polycystic kidney disease MWF HD Lytes okay Volume okay Status and Disposition: Medically stable for discharge back to . I have discussed this with her son, however he does not want her to go back to [facility] because he feels she has been neglected there. I also discussed alternatives with CM/SW, who have been involved in her case since admission and have attempted to get her accepted to another facility but have been unsuccessful due to hemodialysis.
[2018-03-09] MEDS: Clopidogrel TAB* 75 MG PO SCH (17:46)
[2018-03-09] MEDS: Albuterol 2.5 MG/3 ML NEB.SOL* (0.083%) INH PRN (20:21)
[2018-03-09] MEDS: CMC:Pantoprazole TAB (NF) 40 MG TAB PO SCH (20:25)
[2018-03-09] MEDS: Atorvastatin* 20 MG TAB PO SCH (20:26)
[2018-03-10] MEDS: Heparin VIAL(*) 5000 UNITS/ML VIAL (FIVE THOUSAND) SUBCUT SCH ×2 (06:36→17:56)
[2018-03-10 06:53] LABS: ABS Basophils 0 10^3/ul (0-0.2); ABS Eosinophils 0.7 10^3/ul (0-0.6); ABS Monocytes 0.5 10^3/ul (0-0.8); ABS Neutrophils 3.6 10^3/ul (1.5-7.7); ABS Nucleated RBC 0 10^3/ul; Hematocrit 31 % (35-47); Hemoglobin 9.3 g/dl (12.0-16.0); Lymphocyte % 16.5 % (25-47); Mean Corpuscular HGB Conc 30 g/dl (31-36); Mean Corpuscular Hemoglobin 27 pg (27-31); Mean Corpuscular Volume 89 fL (80-97); Mean Platelet Volume 8.1 um3 (7.4-10.4); Nucleated Red Blood Cells % 0; Platelet Count 190 10^3/ul (150-450); Red Blood Count 3.43 10^6/ul (4.00-5.40); Red Cell Distribution Width 17 % (10.5-15); White Blood Count 5.9 10^3/ul (3.5-10.8)
[2018-03-10 06:59] LABS: INR 1.03 (0.77-1.02)
[2018-03-10 07:13] LABS: EGFR Non-African American 8.3 (>60)
[2018-03-10] MEDS ORDERED: busPIRone TAB* 5 MG PO ONE (08:00)
[2018-03-10] MEDS: amLODIPine TAB* 5 MG PO SCH (08:34)
[2018-03-10] MEDS: Aspirin EC TAB* 81 MG TAB.EC PO SCH (08:34)
[2018-03-10] MEDS: Calcitriol CAP* 0.25 MCG PO SCH (08:34)
[2018-03-10] MEDS: Sertraline* 50 MG TAB PO SCH (08:34)
[2018-03-10] MEDS: HYDROcodone/ACETAMIN 5-325 MG* 1 TAB PO PRN ×2 (08:34→17:52)
[2018-03-10] MEDS: Carvedilol TAB* 25 MG PO SCH (08:34)
[2018-03-10] MEDS ORDERED: ALISKIREN 300 MG PO SCH (09:00)
[2018-03-10] MEDS: hydrOXYzine HCL TAB* 25 MG PO PRN ×2 (13:37→17:59)
[2018-03-10] MEDS: Albuterol 2.5 MG/3 ML NEB.SOL* (0.083%) INH PRN (13:47)
--- NOTE | 2018-03-10 14:54 | DS ---
AMENDED REPORT NOW INCLUDES COSIGNER DESIGNATION - ESIGNED BEFORE ADJUSTMENT DISCHARGE SUMMARY: DATE OF ADMISSION: 03/05/18 DATE OF DISCHARGE: 03/10/18 PATIENT OF ADMITTING HOSPITALIST: Rolando Arevalo MD ATTENDING HOSPITALIST WHILE PATIENT HERE: Dr. Romana Núñez.* (DICTATED BY CHRISSY CHRIS) ADMISSION DIAGNOSES: 1. Respiratory failure. 2. Altered mental status. 3. Hypertension. 4. Hyperlipidemia. 5. Coronary artery disease. 6. End-stage renal disease, on hemodialysis. 7. Gastroesophageal reflux disease. 8. Anxiety and depression. DISCHARGE DIAGNOSES: 1. Respiratory failure. 2. Altered mental status. 3. Hypertension. 4. Hyperlipidemia. 5. Coronary artery disease. 6. End-stage renal disease, on hemodialysis. 7. Gastroesophageal reflux disease. 8. Anxiety and depression. 9. Benzodiazepine intolerance. CONSULTATIONS: None. PROCEDURE: Hemodialysis on 03/10/18, prior to discharge. HISTORY OF PRESENT ILLNESS: Ms. Charles is a 57-year-old female, who is known to us from prior admission related to end-stage renal disease for which she has been on chronic hemodialysis as well as coronary artery disease for which she is status post cardiac catheterization with stent placement. She was recently admitted to the hospital for respiratory failure aggravated by aggressive use of benzodiazepines. She returned to the emergency room on 03/05/18 from her residence at [facility] due to shallow breathing. Her ABGs revealed a PCO2 of 82 and pH of 7.22 consistent with acute on chronic hypercapnia. She was evaluated in the emergency room and eventually was admitted to the ICU with diagnosis of acute on chronic respiratory failure as well as combination of COPD and intolerance to benzodiazepine. HOSPITAL COURSE: The patient was admitted under Dr. Arevalo's care at the ICU unit. She stayed in the unit overnight and on the following day. Her ABGs were repeated and showed some improvement with her hypercapnia using oxygen replacement. She continued to do well and was more awake and oriented on the following day. She had longstanding history of anxiety and depression that eventually resolved without any need for anymore benzodiazepines. She started on hydroxyzine for anxiety and we had initially discussed with her son all the healthcare plans and he expressed desire to change the halfway and asked to talk to the social workers in that matter. She was eventually transferred from the ICU on 03/06/18 and was transferred to [address] [place] [address]. She continued to clinically improve and had laboratory workup that was done revealing good oxygen saturation as well. Again, the social workers had a good discussion with her son and the patient initially was clinically stable to be discharged on Saturday; however, her discharge was appealed by her son and the rationale was not to transfer her back to [facility]. He wanted her to consider other placement options for which he was encouraged to investigate and contact these facilities. She stayed over the weekend at the hospital and continued to improve clinically. Her laboratory workup showed no evidence of leukocytosis. Her chemistry panel showed slightly elevated potassium and she is scheduled for dialysis on discharge day. This morning, I had a discussion with her son again and he was encouraged to continue looking for alternative facility if he is not happy with care provided at [facility]; however, at this point, she seems to be clinically stable and we will plan on discharging her today back to [facility] and son had agreed to discharge plan and he will follow up with manager of case management and social insurance analyst regarding a change in facility if needed. I assured him that benzodiazepines will not be used for control of her anxiety anymore given her intolerance and prior admission to this matter. She will be covered with hydroxyzine as needed for anxiety and we will continue to follow her up as an outpatient via her primary care physician. She is clinically stable and will proceed with her usual scheduled hemodialysis session this afternoon and after which she will be cleared for discharge to [facility]. DISCHARGE MEDICATIONS: Include: 1. Tylenol 650 mg p.o. q.4 hours as needed for fever or pain. 2. Tekturna 300 mg p.o. daily. 3. Aspirin 81 mg p.o. daily. 4. Lipitor 20 mg p.o. q.h.s. 5. Calcitriol 0.25 mcg p.o. q.a.m. 6. Plavix 75 mg p.o. q.p.m. 7. Etanercept 25 mg subcu injections once weekly. 8. Percocet 5/325 one tablet q.6 hours as needed for pain. 9. Dolophine 5 mg p.o. q.12 hours. 10. Bactroban 2% ointment apply topically as directed. 11. Omeprazole 20 mg p.o. daily. 12. Zofran 4 mg p.o. q.8 hours p.r.n. for nausea. 13. Zoloft 50 mg p.o. daily. 14. Norvasc 10 mg p.o. daily. 15. Coreg 50 mg p.o. b.i.d. 16. Atarax 10 mg p.o. t.i.d. as needed for anxiety. CHRISSY CHRIS [id number]/[facility] #: [id number] [facility]
[2018-03-10] MEDS ORDERED: Epoetin Alfa* 2,000 UNITS/ML VIAL IV ONE (16:00)
[2018-03-10] MEDS ORDERED: Epoetin Alfa* 3,000 UNITS/ML VIAL IV ONE (16:00)
[2018-03-10] MEDS ORDERED: Heparin DIALYSIS ONLY(*) 1,000 UNITS/ML VIAL DIALYSIS ONE (16:00)
[2018-03-10 17:37] VITALS: BP 136/67
[2018-03-10] MEDS: Clopidogrel TAB* 75 MG PO SCH (17:52)
== END 2018-03-10 20:10 | DRG 91 ==
LOC: ED 11:47 → ICU 14:45 → MED 03-06 14:51 → UNDODISIN 03-11 04:16
PROVIDERS: ADMIT Internal Medicine Critical Care Medicine; ATTEND Internal Medicine
PROC: 5A09357 Assistance with Respiratory Ventilation, Less than 24 Consecutive Hours, Continuous Positive Airway Pressure (ICD-10-PCS; 2018-03-05)
PROC: 5A1D70Z Performance of Urinary Filtration, Intermittent, Less than 6 Hours Per Day (ICD-10-PCS; principal; 2018-03-10)
DX: G92 Toxic encephalopathy (principal); J96.22 Acute and chronic respiratory failure with hypercapnia; E43 Unspecified severe protein-calorie malnutrition; N18.6 End stage renal disease; 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 disease with heart failure and with stage 5 chronic kidney disease, or end stage renal disease; I50.20 Unspecified systolic (congestive) heart failure; M41.9 Scoliosis, unspecified; R41.82 Altered mental status, unspecified; T42.4X5A Adverse effect of benzodiazepines, initial encounter; I25.10 Atherosclerotic heart disease of native coronary artery without angina pectoris; E78.5 Hyperlipidemia, unspecified; K21.9 Gastro-esophageal reflux disease without esophagitis; F41.9 Anxiety disorder, unspecified; M54.5 Low back pain; D64.9 Anemia, unspecified; F32.9 Major depressive disorder, single episode, unspecified; M81.0 Age-related osteoporosis without current pathological fracture; Z99.2 Dependence on renal dialysis; Z79.02 Long term (current) use of antithrombotics/antiplatelets; Z79.82 Long term (current) use of aspirin; Z79.899 Other long term (current) drug therapy; Z79.891 Long term (current) use of opiate analgesic; Z68.20 Body mass index [BMI] 20.0-20.9, adult; Y92.129 Unspecified place in nursing home as the place of occurrence of the external cause; Z95.5 Presence of coronary angioplasty implant and graft; Z86.73 Personal history of transient ischemic attack (TIA), and cerebral infarction without residual deficits
CPT/HCPCS: 36415; 36600; 71045; 80048; 80053; 82803; 83605; 83735; 84100; 85025; 85027; 85610; 90935; 93005; 94640; 99285; A9270-GY; G0257; J0692; J0885; J1644; J2930

== ENCOUNTER 2018-04-13 08:17 | Inpatient (IN) | payer MEDICARE, MEDICAID ==
[2018-04-13] MEDS ORDERED: Morphine VIAL* 4 MG/ML VIAL (1 ml vial) IV ONE (08:22)
[2018-04-13] MEDS ORDERED: Ondansetron INJ* 2 MG/ML VIAL IV ONE (08:23)
--- OUTSIDE RECORDS SUMMARY | 2018-04-13 08:24 | XMS REPORT | Continuity of Care Document ---
:1960 External Reference #:[id number] Author Name Edilberto Forman MD Address [address] [place] [address] Care Team Providers Name Role Phone Edilberto Forman MD Care Team Information Relay Operator Unavailable Payers Type Date Identification Numbers Payment Provider Subscriber Policy Number: [id number] Medicare-Formerly [facility], 1928–1983 Govn [employer] Edwardo Guillen PayID: [id number] [address] [place] [address] Policy Number: [id number] Medicaid/I Edwardo Guillen Group Name: 1 2 Insurance Primary PayID: [id number] [place] [address] Advance Directives Description No Information Available Problems [...] Form Strength Qnty SIG Indications Ordering Provider Atorvastatin Active Tablets 20mg satinder, Calcium /0000 see Clopidogrel Active Tablets 75mg Take One Unknown Bisulfate /0000 Tablet By Mouth Every Day Hydrocodone-Ac Active Tablets 10-325mg Tash etaminophen /0000 Jet Anthony Omeprazole Active Capsules DR 20mg Tash, /0000 Jet Anthony Prazosin HCL Active Capsules 2mg Unknown /0000 Carvedilol Active Tablets 25mg Unknown /0000 Calcitriol 00 Active Capsules 0.25mcg Unknown /0000 Hydrocodone-Ac Active Tablets 5-325mg [place] etaminophen /0000 N.P., Jazmine Sertraline HCL Active Tablets 50mg satinder, /0000 see Naproxen Active Tablets 500mg satinder, /0000 ese Methadone HCL Active Tablets 5mg Take One Unknown Tablet By Mouth Twice A Day as Needed For Pain Maximum Daily Dose Two Tablets Clonazepam 03/20 Hx Tablets 0.5mg 20tab 1 by mouth Dispers s every 12 Graciela Forman - hours as 03/19 needed for vertigo Ciprodex 02/27 Hx Suspension 0.3-0.1% 7.500 4 drops right ml ear twice a EMartin Forman, - day 03/19 Levofloxacin 02/27 Hx Tablets 250mg 6tabs take 2 tabs day 1, then 1 Graciela Forman - tab every 48 03/19 hours until prescription completed Amoxicillin/Cl Hx Tablets 875-125mg Unknown avulanate / Potassium - 02/27 Atorvastatin Hx Tablets 20mg Unknown Calcium / - 02/27 Clopidogrel Hx Tablets 75mg Unknown Bisulfate / - 03/19 Methadone HCL Hx Tablets 5mg Unknown / - 02/27 Hydrocodone-Ac Hx Tablets 5-325mg Q6H prn Tash, etaminophen / Jet Trujillo M.D. 03/19 Carvedilol Hx Tablets 25mg [place], /0000 Jet Trujillo M.D. 03/19 Naproxen Hx Tablets ER 500mg Tash, Sodium ER / 24HR Jet Trujillo M.D. 02/[address] 20mg Tash, /0000 Jet Trujillo M.D. 02/27 Prazosin HCL Hx Capsules 2mg Unknown / - 02/27 Renvela Hx Tablets 800mg Unknown / - 02/27 Oxycodone-Acet Hx Tablets 5-325mg Unknown aminophen / - 02/27 Enbrel Hx Soln 25mg/0.5M Inject 1 Prefill L Syringe Under - Syringe The Skin Once 02/27 A Tekturna Hx Tablets 300mg Hesson, Jet Trujillo M.D. 03/19 Lorazepam Hx Tablets 2mg Hesson, Jet Trujillo M.D. 03/19 Loperamide HCL Hx Capsules 2mg Unknown - 02/27 Sertraline HCL Hx Tablets 50mg [place] /0000 Letty GILES - 02/27 Ondansetron Hx Tablets 4mg [place], HCL Jet Trujillo M.D. 03/19 Miconazole Hx Cream 2% as directed Unknown Nitrate / - 02/27 Aspirin 81 Low Hx Chewtabs 81mg daily Unknown Dose / - 02/27 Calcitriol Hx Capsules 0.25mcg 1 by mouth every day - 03/19 Ciprodex Hx Suspension 0.3-0.1% 4 drops in / right ear - twice a day X 02/27 7 Ofloxacin Hx Solution 0.3% 10 drops to Unknown (Otic) right ear bid - X 14 days 02/27 Tylenol Hx Tablets 325mg Q4H prn - 02/27 Lactobacillus Hx Packet - 03/19 Immunizations Description No Information Available Vital Signs Description No Information Available Results Test Date Facility Test Result H/L Range Note Wound 02/27/2018 [facility] Wound/Misc SEE RESULT 1, 2 Culture/Sensi c/o Department of Laboratories [place] [address] Stain [phone] [id number] 2 SEE RESULT BELOW Name: EDWARDO GUILLEN : [address]: Edilberto Forman MD Acct: [id number] Unit: [id number] AGE: 57 Location: [facility] Re02/27/18 SEX: F Status: REG REF SPEC: [id number] SUZY: 02/27/18-[address]: Edilberto Forman MD REQ: [id number] RECD: 02/27/18 STATUS: COMP _ SOURCE: MISC SOURC SPDESC:DRAINAGE ORDERED: Culture Stain COMMENTS: [id number] Specimen Description EAR DRAINAGE Procedure Result Reported Site Wound/Misc Gram Stain Final 02/27/18- 1853 ML 3+ Epithelial Cells 1+ Neutrophils No Organisms Seen Wound/Misc Culture Final 03/02/18- 1058 ML Organism 1 SERRATIA MARCESCENS Quantity 1+ 1. SERRATIA MARCESCENS M.I.C. RX --------- ------ Cefazolin >=64 R Cefepime <=1 S Ceftriaxone <=1 S Ciprofloxacin <=0.25 S Gentamicin <=1 S Levofloxacin <=0.12 S Meropenem <=0.25 S Tetracycline 4 S Trimethoprim/Sulfamethoxazole <=20 S Amoxicillin/Clavulanic Acid >=32 R Aztreonam <=1 S CONTINUED ON NEXT PAGE DEPARTMENT OF PATHOLOGY, [address] [place] [address] Shalom Higgins M.D. Director [facility] # [id number] Patient: EDWARDO GUILLEN [id number] (Continued) Specimen: [id number] Collected: 02/27/18 Received: 02/27/18-1204 (Continued) Procedure Result Reported Site Wound/Misc Culture Final (continued) Contact the Microbiology Department for any additional antibiotic reporting. * ML - Main Lab . END OF REPORT DEPARTMENT OF PATHOLOGY, [address] [place] [address] Shalom Higgins M.D. Director [facility] # [id number] Procedures Description No Information Available Encounters Type Date Location Provider Dx Diagnosis Office Visit 03/20/2018 [place] Edilberto Owens H66.011 Acute suppr 2:45p 06/10/07 MD Dasia otitis media w spon rupt ear drum, right ear Office Visit 02/27/2018 [place] Edilberto Owens H66.011 Acute suppr 9:00a 06/10/07 MD Dasia otitis media w spon rupt ear drum, right ear Office Visit 02/13/2018 [place] Edilberto Owens H66.011 Acute suppr 1:30p 06/10/07 MD Dasia otitis media w spon rupt ear drum, right ear Plan of Treatment Future Appointment(s):05/22/2018 10:45 am - Edilberto Forman MD at [place], After 06/10/809 - Edilberto Forman MDH66.011 Acute suppurative otitis media with spontaneous rupture of e
--- NOTE | 2018-04-13 08:30 | ED ---
Respiratory - HPI Summary HPI Summary: Pt is a 57 year old F presenting to the ED BIBA for respiratory distress from [facility]. Pts full hx is limited due to being unable to breathe. Per EMS, the pt has a hx of COPD, her BP was hypertensive this morning, her lung sounds included crackles, she had mild cyanosis around her face, and she was unable to speak at all in the ambulance ride. EMS put a CPAP on her because she was gasping for air. - History of Current Complaint Chief Complaint: EDRespiratoryDistress Stated Complaint: DIFF BREATHING Time Seen by Provider: 04/13/18 08:23 Hx Obtained From: EMS Hx From Patient Unobtainable Due To: Other - difficulty breathing, did not respond to questions Timing: Constant Initial Severity: Severe Current Severity: Severe Pain Intensity: 9 Character: Dyspnea at Rest Sputum Amount: None Aggravating Factor(s): Exertion, Movement, Deep Breaths Alleviating Factor(s): Nothing Associated Signs and Symptoms: SOB - Allergy/Home Medications Allergies/Adverse Reactions: Allergies Allergy/AdvReac Type Severity Reaction Status Date / Time Adhesive Tape Allergy Intermediate Hives Verified 04/11/18 12:56 codeine AdvReac Severe GI Upset Verified 04/11/18 12:56 Home Medications: Home Medications Ciproflox/Dexameth OTIC.SUSP* [Ciprodex Otic*] 1 drop BOTH EARS BID 04/13/18 [ History Confirmed 04/13/18] PMH/Surg Hx/FS Hx/Imm Hx Previously Healthy: No Endocrine/Hematology History: Reports: Hx Anemia - gets epogen shot Denies: Hx Blood Disorders, Hx Blood Transfusions, Hx Bone Marrow Disease, Hx Diabetes, Hx Systemic Lupus Erythematosus, Hx Thyroid Disease, Hx Unexplained Bleeding Cardiovascular History: Reports: Hx Aneurysm, Hx Cardiomegaly, Hx Congestive Heart Failure, Hx Coronary Artery Disease, Hx Hypercholesterolemia, Hx Hypertension, Other Cardiovascular Problems/Disorders - CAD, NH, MURMUR Denies: Hx Pacemaker/ICD, Hx Peripheral Vascular Disease Respiratory History: Reports: Hx Chronic Obstructive Pulmonary Disease (COPD) - PT DENIES, Hx Pleural Effusion Denies: Hx Pneumonia, Hx Pulmonary Edema, Hx Pulmonary Embolism, Hx Seasonal Allergies, Hx Sleep Apnea GI History: Reports: Hx Diverticulosis, Hx Gastroesophageal Reflux Disease, Hx Ulcer History: Reports: Hx Chronic Renal Failure, Hx Dialysis - HEMODIALYSIS VIA [facility], Hx Kidney Infection, Hx Renal Disease - ESRD, polycystic kidney disease , Other Problems/Disorders - polycystic kidney Denies: Hx Kidney Stones Musculoskeletal History: Reports: Hx Arthritis, Hx Rheumatoid Arthritis, Hx Back Problems, Hx Orthopedic Injury - left hip fx, Other Musculoskeletal History - LEFT HIP FX Denies: Hx Osteoporosis Sensory History: Reports: Hx Contacts or Glasses Denies: Hx Cataracts, Hx Eye Injury, Hx Eye Prosthesis, Hx Glaucoma, Hx Legally Blind, Hx Macular Degeneration, Hx Vision Problem, Hx Deafness, Hx Hearing Aid, Hx Hearing Problem Opthamlomology History: Reports: Hx Contacts or Glasses Denies: Hx Cataracts, Hx Eye Injury, Hx Eye Prosthesis, Hx Glaucoma, Hx Legally Blind, Hx Macular Degeneration, Hx Vision Problem Neurological History: Reports: Hx CVA, Other Neuro Impairments/Disorders - brain aneurism x5 per pt Denies: Hx Dementia, Hx Developmental Delay, Hx Headaches, Hx Migraine, Hx Nerve Disease, Hx Seizures Psychiatric History: Reports: Hx Anxiety, Hx Depression Denies: Hx Panic Disorder, Hx Post Traumatic Stress Disorder, Other Psychiatric Issues/Disorders - Cancer History Hx Chemotherapy: No - Surgical History Surgery Procedure, Year, and Place: dialysis port x2 Hx Anesthesia Reactions: No - Immunization History Date of Tetanus Vaccine: Unknown Infectious Disease History: Unable to Obtain/Confirm Infectious Disease History: Denies: Hx Tuberculosis, Traveled Outside the [place] in Last 30 Days - Family History Known Family History: Negative: Cardiac Disease, Hypertension, Diabetes - Social History Alcohol Use: None Hx Substance Use: No Substance Use Type: Reports: None Hx Tobacco Use: Yes Smoking Status (MU): Former Smoker Type: Cigarettes Amount Used/How Often: not much, only while in college Have You Smoked in the Last Year: No Review of Systems Negative: Fever Positive: Shortness Of Breath All Other Systems Reviewed And Are Negative: No - Comments Additional Review of Systems Comments: Level 5 caveat due to depressed level of consciousness Physical Exam - Summary Physical Exam Summary: Appearance: Acute on chronically ill-appearing, cachectic Skin: Warm, dry, no obvious rash Eyes: sclera anicteric, no conjunctival pallor ENT: mucous membranes moist, pharynx appears normal Neck: Supple, nontender Respiratory: Distant breath sounds, pt unable to cooperate with a deep breath. Her breathing is somewhat labored with tachypnea but no other signs of respiratory distress. Cardiovascular: Normal S1, S2. No murmurs. Normal distal pulses in tibial and radial bilaterally. Abdomen: Soft, nontender, normal active bowel sounds present Musculoskeletal: Normal, Strength/ROM Intact Neurological: Pt is easily arousable but somnolent. There are no focal motor deficits noted. memorial marker designer appear grossly intact; there is no facial droop. Psychiatric: affect is blunted, pt does not appear delirious. Triage Information Reviewed: Yes Vital Signs On Initial Exam: Initial Vitals Temp Pulse Resp BP Pulse Ox 95.6 F 93 22 171/137 100 04/13/18 08:18 04/13/18 08:18 04/13/18 08:18 04/13/18 08:18 04/13/18 08:18 Vital Signs Reviewed: Yes Completion Of Physical Exam Limited Due To: Other - inability to breathe Diagnostics - Vital Signs Vital Signs Temp Pulse Resp BP Pulse Ox 04/13/18 08:18 95.6 F 93 22 171/137 100 - Laboratory Result Diagrams: 04/14/18 05:35 04/14/18 05:35 Lab Statement: Any lab studies that have been ordered have been reviewed, and results considered in the medical decision making process. - Radiology Chest xray Radiology Interpretation Completed By: Radiologist Summary of Radiographic Findings: Chest x-ray findings are most consistent with cardiogenic pulmonary edema with bibasilar pleural effusions. ED physician has reviewed this report. - EKG 1001 Cardiac Rate: NL - 69bpm EKG Rhythm: Sinus Rhythm ST Segment: Normal Ectopy: None Summary of EKG Findings: Nml except for septal Q waves. Disposition - Course Course Of Treatment: The pt is a 57 y/o F presenting BIBA from [facility] in respiratory distress. The pt was not responding to any questions from EMS and would not answer questions for a physical. The pt is presently stable. - Diagnoses Provider Diagnoses: Pulmonary edema, Hx of coronary artery disease, End stage renal failure on dialysis, Physical deconditioning - Critical Care Time Critical Care Time: 30-74 min - This is a 57-year-old woman with very serious ongoing chronic medical conditions who presents with acute dyspnea, likely secondary to some volume overload. She required BiPAP and careful monitoring for several hours. This was complicated by bradycardia requiring treatment with atropine. Discharge - Sign-Out/Discharge Documenting (check all that apply): Patient Departure - admit - Discharge Plan Condition: Stable Disposition: ADMITTED TO [facility] - Billing Disposition and Condition Condition: STABLE Disposition: Admitted to [facility] - Attestation Statements Document Initiated by Cecile: Yes Documenting Scribe: Cammie Mckeon Provider For Whom Cecile is Documenting (Include Credential): Walter Tucker MD. Scribe Attestation: Cammie Morales, scribed for Walter Tucker MD. on 04/14/18 at 0726. Scribe Documentation Reviewed: Yes Provider Attestation: The documentation as recorded by the scribe, Cammie Mckeon accurately reflects the service I personally performed and the decisions made by me, Walter Tucker MD. Consult Consult: [id number] - Spoke with Pradeep Duffy MD., about the pt's condition and prior history. He will be the accepting physician.
[2018-04-13 08:46] LABS: Hematocrit 44 % (35-47); Hemoglobin 14.2 g/dl (12.0-16.0); Mean Corpuscular HGB Conc 32 g/dl (31-36); Mean Corpuscular Hemoglobin 28 pg (27-31); Mean Corpuscular Volume 87 fL (80-97); Red Blood Count 5.13 10^6/ul (4.00-5.40); Red Cell Distribution Width 17 % (10.5-15); White Blood Count 5.2 10^3/ul (3.5-10.8)
[2018-04-13] MEDS ORDERED: Nitro 2% OINT* (Nitroglycerin) 1 INCH/PAK PAK TOPICAL ONE (09:02)
[2018-04-13 09:03] LABS: ALT 22 U/L (7-52); Albumin 4.4 g/dL (3.2-5.2); Albumin/Globulin Ratio 1.8 (1-3); Alkaline Phosphatase 111 U/L (34-104); BUN/Creatinine Ratio 7.1 (8-20); Blood Urea Nitrogen 31 mg/dL (6-24); CO2 Carbon Dioxide 30 mmol/L (22-32); Calcium 10.1 mg/dL (8.6-10.3); Chloride 98 mmol/L (101-111); EGFR African American 12.7 (>60); EGFR Non-African American 10.5 (>60); Globulin 2.4 g/dL (2-4); Glucose 97 mg/dL (70-100); Sodium 137 mmol/L (135-145); Total Protein 6.8 g/dL (6.4-8.9)
[2018-04-13 09:06] LABS: Troponin I 0.03 ng/mL (<0.04)
--- NOTE | 2018-04-13 09:29 | RAD ---
INDICATION: Dyspnea COMPARISON: Most recent comparison chest x-rays dated March 08, 2018 TECHNIQUE: Single AP portable view of the chest was obtained. FINDINGS: Image quality is compromised due to the relative inferiority of a portable chest x-ray. Again seen is a right internal jugular vein tunneled hemodialysis catheter with the tip terminating at the superior vena cava. There is a mild degree of cardiomegaly. There is density obscuring the bilateral lung bases. There is hazy density overlying the bilateral lungs more superiorly. IMPRESSION: Chest x-ray findings are most consistent with cardiogenic pulmonary edema with bibasilar pleural effusions.
[2018-04-13 09:38] LABS: ABS Basophils 0.1 10^3/ul (0-0.2); ABS Eosinophils 0.4 10^3/ul (0-0.6); ABS Lymphocytes 1.2 10^3/ul (1.0-4.8); ABS Monocytes 0.3 10^3/ul (0-0.8); ABS Neutrophils 3.2 10^3/ul (1.5-7.7); ABS Nucleated RBC 0 10^3/ul; Eosinophil % 8.2 % (0-6); Lymphocyte % 22.7 % (25-47); Mean Platelet Volume 6.6 fL (7.4-10.4); Nucleated Red Blood Cells % 0.1; Platelet Count 86 10^3/ul (150-450)
[2018-04-13 09:59] LABS: Anion Gap 9 mmol/L (2-11)
[2018-04-13] MEDS ORDERED: Atropine SYRINGE* 0.1 MG/ML 10 ML SYRINGE (1 MG) IV PUSH ONE (10:25)
[2018-04-13 10:58] LABS: Potassium Redraw 5.4 mmol/L (3.5-5.0)
[2018-04-13] MEDS ORDERED: hydrOXYzine HCL TAB* 10 MG PO PRN (11:51)
[2018-04-13] MEDS ORDERED: Ondansetron TAB* 4 MG PO PRN (11:51)
[2018-04-13] MEDS ORDERED: Methadone TAB* 5 MG PO PRN (11:51)
[2018-04-13] MEDS ORDERED: hydrALAZINE IV* 20 MG/ML VIAL IV SLOW PU ONE ×2 (11:55→13:27)
[2018-04-13] MEDS ORDERED: Haloperidol INJ IV/IM* 5 MG/ML AMP IV SLOW PU ONE (12:40)
[2018-04-13] MEDS ORDERED: Haloperidol INJ IV/IM* 5 MG/ML AMP IV SLOW PU PRN (12:41)
[2018-04-13] MEDS ORDERED: Haloperidol INJ IV/IM* 5 MG/ML AMP ONE (12:43)
[2018-04-13] MEDS ORDERED: LORazepam INJ* 2 MG/ML 1 ML VIAL ONE (12:46)
[2018-04-13] MEDS ORDERED: LORazepam INJ* 2 MG/ML 1 ML VIAL IV PUSH ONE (13:37)
--- NOTE | 2018-04-13 13:40 | CONSULT ---
Consult Consult: Consultation Note -- Critical Care Requesting Physician: Dr Pradeep Duffy Reason for consult: respiratory failure, delirium Limitations in history/physical: delirium, resp failure Date of consult: 04/13/2018 HPI: 57y F pmhx of ESRD on HD, CAD s/p PCI, Diastolic Dysfunction, HTN, anxiety and depression, COPD on home O2, GERD, HTN, HLD; recent admission to [facility] [place] to ICU for acute on chronic hypercapneic respiratory failure, requiring NIV. She subsequently improved in the ICU. Suspicion of possible BDZ causing the respiratoyr failure and hypercapnea were entertained, so Lorazepam/Bdz were discontinued on discharge. She comes to ER [facility] [place] today 04/13 for sudden increasing respiratoyr distress since last night. According to son who was in ER with her, she missed HD last saturday and saturday, but had HD saturday. She had no distress , was okay up until last night. She comes to ER, was in distress, awake, confused, placed on NIV. CXR demonstrated pulm congestion bilaterally. She was bradycardic to 25-30, given atropine in ER, with improvement. She was weaned off NIV and by my arrival, she was on NC, sats 99%, HR 100-110s, RR 20, good air movement bilaterally without rhales/rhonchi, but was resltess, confused, no active resp distress. NIV was on standby. Decision for CT chest en-route to ICU. While in ER, we witness a GTC seizure, lasting 1 min or so, and broke on its own, patient was lethargic, poorly responsive with agonal breathing. She was told to be DNR/DNI as per her son, and had a MOLST form. She was bagged and placed on NIV. I called son who called back after some minutes and discussed immediate issue of seizure and respiratoyr fialure, likely requiring intubation. He knew of DNR/DNI, wanted to follow her wishes but was a little unsure of intubation would benefit. He maintained to keep DNR. At the time of discussion, she was moving more, taking more breaths on her own but not waking to follow commands as quickly. We discussed her options and her desire to maintian DNI, and unclear how long she wound need intubation. He agreed to hold course with NIV, and if resp status suddenly worsens again or she becomes apneic to call for any change as a possibility of intubation would be decided. She has not recieved ativan for seizure; may compromise airway. she appeared to be post-ictal. BP are 200s/130s, HR 110s sinus tachy, on NIV. ED/floor Course: as above ROS: unable to obtain 2/2 to encephalopathy, delirium, respiratory failure PMHx: ESRD on HD, CAD s/p PCI, Diastolic Dysfunction, HTN, anxiety and depression, COPD on home O2, GERD, HTN, HLD; h/o CVAs and brain aneurysms in past PSHx: HD cathetor Family History: no cardiac disease Social History: Alcohol-former social during college, Smoking-former smoker, Drug use-non; Living Son Alex; lives in [place] Allergies: Allergies Allergy/AdvReac Type Severity Reaction Status Date / Time lorazepam Allergy Severe Difficulty Verified 04/13/18 09:30 Breathing Adhesive Tape Allergy Intermediate Hives Verified 04/11/18 12:56 codeine AdvReac Severe GI Upset Verified 04/11/18 12:56 Home Medications: Acetaminophen TAB* [Tylenol TAB*] 650 mg PO Q4H PRN 12/24/17 [History Confirmed 04/13/18] Calcitriol CAP* [Rocaltrol CAP*] 0.25 mcg PO QAM 12/24/17 [History Confirmed ] Clopidogrel TAB* [Plavix TAB*] 75 mg PO BEDTIME 12/24/17 [History Confirmed 09/25] HYDROcodone/ACETAMIN 5-325 MG* [Osteen 5-325 TAB*] 1 tab PO Q6H PRN 12/24/17 [ History Confirmed 04/13/18] Methadone TAB* [Dolophine TAB*] 5 mg PO Q12H PRN MDD 2 tablets 12/24/17 [ History Confirmed 04/13/18] Ondansetron TAB* [Zofran 4 MG Tab*] 4 mg PO Q8H PRN 12/24/17 [History Confirmed 04/13/18] Carvedilol TAB* [Coreg TAB*] 50 mg PO BID #60 tab 03/04/18 [Rx Confirmed ] Aliskiren TAB* [Tekturna TAB*] 300 mg PO QAM 03/05/18 [History Confirmed ] Aspirin EC TAB* [Ecotrin EC Low Dose 81 MG*] 81 mg PO QAM 03/05/18 [History Confirmed 04/13/18] Atorvastatin* [Lipitor 20 MG*] 20 mg PO BEDTIME 03/05/18 [History Confirmed 09/25] Etanercept [Enbrel] 25 mg SUBCUT FR 03/05/18 [History Confirmed 04/13/18] Omeprazole CAP* [Prilosec CAP* 20 MG] 20 mg PO BEDTIME 03/05/18 [History Confirmed 04/13/18] Sertraline* [Zoloft*] 50 mg PO QAM 03/05/18 [History Confirmed 04/13/18] hydrOXYzine HCL TAB* [Atarax 10 MG TAB*] 10 mg PO TID PRN #30 tab 03/08/18 [Rx Confirmed 04/13/18] amLODIPine TAB* [Norvasc 5 mg TAB*] 10 mg PO QAM 04/11/18 [History Confirmed 09/25] Ciproflox/Dexameth OTIC.SUSP* [Ciprodex Otic*] 1 drop BOTH EARS BID 04/13/18 [ History Confirmed 04/13/18] Tele: sinus tachycardia Vitals: Vital Signs Temp 97.3 F 04/13/18 10:52 Pulse 105 04/13/18 14:06 Resp 14 04/13/18 14:06 BP 204/137 04/13/18 14:06 Pulse Ox 100 04/13/18 14:06 Intake & Output 04/12/18 04/13/18 04/13/18 19:59 06:59 18:59 Weight 54.431 kg O2/Vent: NIV 20/8, 65%; sat 100%, RR 20s, TV 400s Infusions: heplock Current Medications: Acetaminophen (Tylenol Tab*) 650 mg PO Q4H PRN PRN Reason: PAIN Hydrocodone Bitart/Acetaminophen (Osteen 5-325 Tab*) 1 tab PO Q6H PRN PRN Reason: PAIN Aliskiren (Tekturna Tab*) 300 mg PO QAM GUY Amlodipine Besylate (Norvasc Tab*) 10 mg PO QAM GUY Aspirin (Aspirin Ec Tab*) 81 mg PO QAM GUY Atorvastatin Calcium (Lipitor*) 20 mg PO BEDTIME GUY Calcitriol (Rocaltrol Cap*) 0.25 mcg PO QAM GUY Ciprofloxacin/Dexamethasone (Ciprodex Otic.Susp*) 1 drop BOTH EARS BID GUY Clopidogrel Bisulfate (Plavix Tab*) 75 mg PO BEDTIME GUY Etanercept (Enbrel (Nf)) 25 mg SUBCUT Fr@0900 GUY Heparin Sodium (Porcine) (Heparin Vial(*)) 5,000 units SUBCUT Q8HR GUY Hydralazine HCl (Apresoline Iv*) 5 mg IV SLOW PU Q6H PRN PRN Reason: SYSTOLIC BP GREATER THAN: Ondansetron HCl (Zofran Tab*) 4 mg PO Q8H PRN PRN Reason: NAUSEA Pantoprazole Sodium (Protonix Tab (Nf)) 40 mg PO BEDTIME GUY Sertraline HCl (Zoloft*) 50 mg PO QAM COUNTS INCLUDE 234 BEDS AT THE [facility] Physical Exam: General: currently poor mental status, restless, moving ext, doesnt follow commands Head: normocephalic, atraumatic HEENT: no pallor, no icterus, moist mucous membranes Neck: soft, supple, no jvd, no stridor CVS: tachycardic, regular, no murmur Resp: bilateral air entry, no rhales, no wheeze, no rhonchi, no acc muscle use; Right chest permacath Abdomen: soft, nontender, nondistended, bowel sounds present Ext: pulses+, warm, no edema Skin: DRY Neuro: restless, not awake, doesnt follow commands now; bilateral pupils were 2mm and reactive, post seizure now 4-5mm and reactive Labs: Laboratory Results - last 24 hr 04/13/18 04/13/18 04/13/18 08:34 08:34 08:34 WBC 5.2 RBC 5.13 Hgb 14.2 Hct 44 MCV 87 MCH 28 MCHC 32 RDW 17 H Plt Count 86 L MPV 6.6 L Neut % (Auto) 61.5 Lymph % (Auto) 22.7 L Garland % (Auto) 6.0 Eos % (Auto) 8.2 H Baso % (Auto) 1.6 Absolute Neuts (auto) 3.2 Absolute Lymphs (auto) 1.2 Absolute Monos (auto) 0.3 Absolute Eos (auto) 0.4 Absolute Basos (auto) 0.1 Absolute Nucleated RBC 0 Nucleated RBC % 0.1 VBG pH VBG pCO2 VBG pO2 VBG HCO3 VBG O2 Saturation VBG Base Excess Sodium 137 Potassium TNP Chloride 98 L Carbon Dioxide 30 Anion Gap 9 BUN 31 H Creatinine 4.35 H Est GFR ( Amer) 12.7 Est GFR (Non-Af Amer) 10.5 BUN/Creatinine Ratio 7.1 L Glucose 97 Calcium 10.1 Total Bilirubin 0.80 AST TNP ALT 22 Alkaline Phosphatase 111 H Troponin I 0.03 B-Natriuretic Peptide 1479 H Total Protein 6.8 Albumin 4.4 Globulin 2.4 Albumin/Globulin Ratio 1.8 04/13/18 04/13/18 04/13/18 10:09 10:09 10:32 WBC RBC Hgb Hct MCV MCH MCHC RDW Plt Count MPV Neut % (Auto) Lymph % (Auto) Garland % (Auto) Eos % (Auto) Baso % (Auto) Absolute Neuts (auto) Absolute Lymphs (auto) Absolute Monos (auto) Absolute Eos (auto) Absolute Basos (auto) Absolute Nucleated RBC Nucleated RBC % VBG pH 7.26 L 7.18 L VBG pCO2 72 H 75 H VBG pO2 31 L 64 H VBG HCO3 26.3 23.1 L VBG O2 Saturation 58.8 L 92.2 H VBG Base Excess 3.1 -2.1 L Sodium Potassium 5.4 H Chloride Carbon Dioxide Anion Gap BUN Creatinine Est GFR ( Amer) Est GFR (Non-Af Amer) BUN/Creatinine Ratio Glucose Calcium Total Bilirubin AST 22 ALT Alkaline Phosphatase Troponin I B-Natriuretic Peptide Total Protein Albumin Globulin Albumin/Globulin Ratio Imaging: cxr 04/13 - bilateral pulm congestion; left pleural effusion+ Assessment: 57y F pmhx of ESRD on HD, CAD s/p PCI, Diastolic Dysfunction, HTN, anxiety and depression, COPD on home O2, GERD, HTN, HLD; recent admission to [facility] [place] 03/[place] to ICU for acute on chronic hypercapneic respiratory failure, requiring NIV. She subsequently improved in the ICU. Suspicion of possible BDZ causing the respiratoyr failure and hypercapnea were entertained, so Lorazepam/ Bdz were discontinued on discharge. She comes to ER [facility] [place] today 04/13 for sudden increasing respiratoyr distress since last night. She missed HD sessions but had 1 day prior to admission. In ER, imaging demonstrated pulm congestion. Bradycardia 20-30s, s/p atropine given with improvement. Sudden GTC Seizure, self-limited in ER, with worsened resp status and encephalopathy, remains DNR and DNI with possible change based on status again. Hypertensive 220s post seizure -Seizure, now post-ictal -r/o intracranial pathology -Acute on chronic hypercapneic and hypoxic respiratory failure -Encephalopathy, multifactorial -Hypertensive Urgency -Pulmonary Congestion -acute on chronic decompensated LV diastolic CHF -Bradycardia ESRD on HD CAD COPD Plan: Neuro- already delirious on arrival, suspect this may have been metabolic. Now post-ictal also; ativan PRN only but only after discussion with MD flores poor resp status and DNR status. Start keppra 1gm, then 500mg IV BID. Neurochecks. asp prec. Stat CT brain to r/o hemorrhage. BP control IV push +/- infusion. hold asa/plavix for now, till CT done. hold zoloft for depression. no antipsychotics for delirium as they lower seizure threshold. Obtain EEG. CVS- Hypertensive; start IV hydralazine, may be 2/2 to seizure; may need IV infusion cardene. hold asa/plavix for now. Pulm congestion on CXR, likely from missed HD, but overall dry skin, but BNP++. Will need HD today. Bradycardia imrpoved now; hold BB and other potential agent. Hold asa/plavix. Resp- on NIV, but poor candidate for, some improvement though while in ER. For now, DNR/DNI as per son, will call if any worsening if potential for change of mind. No active wheezing, was moving air. repeat ABG. start Solumedrol and nebulizers for potential COPD exaccerbation. Has pulm congestion, pato lbenefit form HD for volume removal. -hold sedating agents, narcotics for now; d/c methadone/hydroxazine ID- afebrile. wbc normal. No signs of infection, no focal infiltrate on CXR. no URI symptoms noted by family. New seizure. Will monitor, if there is concern for infectious process , will begin empiric coverage. Will consider LP if also needed if repeat seizures. GI- NPO. asp prec. GERD, h2b iv daily. Renal- ESRD on HD; missed earlier 2 sessions but completed last. No acidosis today, peripherally no edema, repeat K 5.4. will contact nephrology for HD. Heme- hg stable. plt stable. hold asa/plavix. DVT proph with SCDs Endo- fingersticks q6h Musculsk- pressure ulcer prophylaxis. Bedrest. Wounds- none Nutrition- NPO DVT prophylaxis: SCDs GI prophylaxis: h2b Central Line: no Arterial Line: no Vides Cathetor: no Disposition: ICU Code Status: DNR, DNI as per Son with possible change if status worsens again. Total Critical Care time is 60 minutes, excluding procedures/teaching Rajan Patton MD Manager Radiation (Electronically Signed)
[2018-04-13] MEDS ORDERED: Heparin VIAL(*) 5000 UNITS/ML VIAL (FIVE THOUSAND) SUBCUT SCH (14:00)
[2018-04-13] MEDS ORDERED: levETIRAcetam IV* 1,000 MG in NS 0.9% 100 ML* 100 ML IVPB ONE (15:00)
[2018-04-13] MEDS ORDERED: LORazepam INJ* 2 MG/ML 1 ML VIAL IV PUSH PRN (15:15)
--- NOTE | 2018-04-13 15:21 | PN ---
Progress Note - Progress Note Date of Service: 04/13/18 Note: improved mental status, can state name, no complaints either; remains on NIV Hypertensive; will need HD, hydralazine PRN 1 time seizure, multifactorial origin if less restless, still need CT brain pupils now smaller and reactive ativan 1mg q4h prn d/c keppra for now and EEG will try to obtain HD Rajan Patton MD Commercial Portfolio Manager
[2018-04-13] MEDS ORDERED: Famotidine IV* 10 MG/ML 2 ML (20 mg) IV SCH (15:30)
[2018-04-13] MEDS: niCARdipine 0.1MG/ML IVPREMIX* 20 MG/200 ML BAG IV SCH ×2 (16:04→20:05)
--- NOTE | 2018-04-13 16:26 | HP ---
CC: Dr. Letty Duffy. * ADMISSION HISTORY AND PHYSICAL: DATE OF ADMISSION: 04/13/18 PRIMARY CARE PROVIDER: Dr. Letty Duffy. HEALTHCARE PROXY: Her son. CODE STATUS: DNR/DNI. Confirmed with son, MOLST updated confirmed. SOURCE OF INFORMATION: History obtained from interview with the son, and review of EMS records, review of [facility] records. CHIEF COMPLAINT: Respiratory failure. HISTORY OF PRESENT ILLNESS: This is a 57-year-old female, frequent hospital stay at [facility] with 2 hospital stays on 02/28/18 and 03/05/18, both with respiratory failure __thought____ in the setting of benzodiazepine with the second hospital stay requiring ICU stay and BiPAP with her most recent discharge on 03/10/18. Previous stays were notable for COPD contributing to respiratory failure as well as bradycardia. This morning son received a telephone call at 7:30 a.m. from [facility] noting that his mother was on the edge of the bed and short of breath. EMS notes that upon arrival they found a semi-alert woman, sitting on the edge of the bed with [employer] in obvious respiratory distress. Further notes that staff had found her in the morning gasping for air with presenting blood pressure of 220/130 and saturation of 98%. She was noted be cyanotic on her lips, face, chest, and arms when EMS arrived. Son notes that he spoke to her yesterday at 5 p.m. and she was feeling okay, and in the last 3 weeks she has been feeling "great." She did miss hemodialysis on Saturday, but attended both Saturday and Saturday. It is unclear why she missed this dialysis session. The son notes sometimes she misses it when she is feeling unwell, and other times there is simply transportation issues. She was switched to hemodialysis approximately 2 months prior from peritoneal dialysis. Additionally, the patient has been on eardrops for a right ear infection and review of [facility] from [facility] indicates that there is an order to arrange a urgent ENT appointment, which was placed at the end of March. Otherwise, there is no indication that she had any recent fevers, chills, night sweats, nausea, vomiting, increased fluid intake, changes in her weight, URI symptoms, or other changes in her routine. Upon presentation to the emergency room, she was placed on BiPAP and received Morphine for tachypnea with improvement. Additionally, she was noted to develop bradycardia into the 20s, which was not recorded on vitals in [facility], although nursing note at 10:23 indicates bradycardia at 26 beats per minute, for which she received atropine at 10:25. When seen by this author, she remained on BiPAP. She was minimally responsive, although son indicates that at her baseline she is oriented x3 and interactive, walks with a walker. PAST MEDICAL HISTORY: Includes: 1. End-stage renal disease secondary to polycystic kidney disease over 20 years , switched to HD 2 months prior. 2. Hypertension. 3. Cardiomyopathy, last recorded EF in [facility] from November 2017, an EF of 50% to 55% with notable diastolic dysfunction and pulmonary hypertension. 4. History of CVA. 5. History of rheumatoid arthritis. 6. History of depression. 7. History of tunnel dialysis catheter as well as history of peritoneal dialysis catheter insertion and removal. MEDICATIONS: From discharge report from [facility] include: 1. Ciprodex 4 drops both ears in the morning and at bedtime. 2. Methadone 5 mg in the morning. 3. Aliskiren 300 mg daily. 4. Rocaltrol 0.25 mcg in the morning. 5. Zofran 4 mg every 8 hours as needed. 6. Hydroxyzine 10 mg every 8 hours as needed. 7. Enbrel 25 mcg on Saturday. 8. Norvasc 10 mg daily. 9. Aspirin 81 mg daily. 10. Zoloft 50 mg daily. 11. Omeprazole 20 mg daily. 12. Atorvastatin 20 mg daily. 13. Clopidogrel 75 mg daily. 14. Coreg 50 mg twice daily. 15. [place]ec[place] 5/325, 1 tablet every 6 hours. 16. Tylenol 325 mg daily. 17. [place] 10/325 every 6 hours as needed. 18. Atorvastatin 20 mg at bedtime. 19. Naproxen 500 mg twice daily. FAMILY HISTORY: Polycystic kidney disease, father with CAD. SOCIAL HISTORY: Resident of [facility]. She is a nonsmoker. No alcohol. REVIEW OF SYSTEMS: As per HPI. Otherwise all other systems are negative. PHYSICAL EXAMINATION GENERAL: Older than stated age, on BiPAP, minimally responsive. VITAL SIGNS: When seen by this author, 187/110, heart rate of 95, respiratory rate of 22, temperature is 97.3, 98% on 40% oxygen. HEENT: Oropharynx is dry. Eyes are equal and reactive to light. LUNGS: Diffuse rhonchi. Decreased breath sounds in the bases, worse on the right. HEART: She has regular rate and rhythm. No murmurs. ABDOMEN: Soft, nontender, and nondistended. EXTREMITIES: Warm and well perfused. There is slight patchy erythema on bilateral feet. NEURO: She is alert and oriented x0. She does moan when touched, localizes the pain. PSYCH: No apparent anxiety, agitation, or depression. DIAGNOSTIC STUDIES/LAB DATA: Labs reviewed, notable for white blood cell count of 5.2, platelets of 86. Potassium of 5.4, BUN 31, creatinine of 4.3. BNP 1479. Data: Chest x-ray: Chest x-ray findings are most consistent with cardiogenic pulmonary edema with bibasilar pulmonary effusions. EKG: Normal limit, axis. Low voltage in limb leads, biphasic T-waves in V5, V6. T-wave inversion in II and III, Q and V2. ASSESSMENT AND PLAN: This is a 57-year-old female with multiple comorbidities including end-stage renal disease, severe kyphosis, chronic respiratory failure requiring 2 L oxygen at [facility], diastolic heart dysfunction, presenting to the hospital with [id number] respiratory failure requiring BiPAP. 1. [id number] respiratory failure. Unclear, what was the etiology for an abrupt change. Review of [facility] indicates Ativan was not ordered despite transfer list, which has Ativan written, although crossed out in pen. She has a precarious situation with her combination of diastolic heart failure, low lung volumes and end-stage renal disease. Missing dialysis on Saturday may has contributed. Unclear if hypertension seem now preceded shortness of breath or as a result. We will check and discuss the care with Dr. Patton from the ICU. We will check noncontrast CT prior to transfer to the ICU. We can maintain BiPAP. Antibiotics should CAT scan elucidate underlying infection seen on plain film. Morphine p.r.n. as needed. Treat hypertension as below. Arrange for hemodialysis as early as possible. 2. Bradycardia. Again unclear etiology. Seen on last hospital stay as well, resolved with atropine. Monitored in the ICU on telemetry. Repeat troponin now. 3. Hypertension. Hydralazine 5 mg IV now, then q.6 hours as needed. She will benefit from taking her home medications, which are all ordered, but we will hold while she is on BiPAP. If she becomes more alert, can dose medications that she missed this morning now. Continue otherwise. 4. End-stage chronic kidney disease, requiring hemodialysis, continue Saturday, Saturday, and Saturday with additional dialysis today can be arranged. 5. Pleural effusions. Likely contributing to respiratory failure. Plain film as indicated above. 6. Diastolic heart failure exacerbation. Volume management as indicated above with arrangement for hemodialysis, positive pressure ventilation and Morphine. 7. Thrombocytopenia. New, from previous stays. Continue to trend. She does have erythema in bilateral feet that does not appear to be petechia. Monitor. 8. DVT prophylaxis: Hep subcu. [id number]/CPS #: [id number] MTDD
[2018-04-13] MEDS ORDERED: Vancomycin(*) 1,000 MG in NS 0.9% 250 ML* 250 ML IVPB ONE (18:12)
[2018-04-13] MEDS ORDERED: Cefepime 1 GM in Dextrose(*) 1 GM/50 ML BAG IV ONE (18:14)
--- NOTE | 2018-04-13 18:38 | PN ---
Progress Note - Progress Note Date of Service: 04/13/18 Note: Patient spiked temp of ~101 temp Hypertensive, on cardene drip Remains tachycardic low 100s on NIV, delirium still present reassess BP after HD. Admitted for pulmonary congestion and a component of CHF exaccerbation at this time, so will defer IVF bolus for sepsis at this time, will re-evaluate based on hemodynamics if needed. start IV vanco and cefepime blood culture x2 anuric, no urine available Rajan Patton Notereader
[2018-04-13] MEDS ORDERED: Vancomycin - DIALYSIS DOSING* NOTE FOLLOW UP SCH (19:00)
[2018-04-13] MEDS: Acetaminophen IV 1GM/100ML * 100 ML IVPB SCH (20:05)
[2018-04-13] MEDS: Atorvastatin* 20 MG TAB PO SCH (20:06)
[2018-04-13] MEDS: Heparin VIAL(*) 5000 UNITS/ML VIAL (FIVE THOUSAND) SUBCUT SCH (20:53)
[2018-04-13] MEDS ORDERED: Carvedilol TAB* 25 MG PO SCH (21:00)
[2018-04-13] MEDS ORDERED: CMCS - Pantoprazole TAB (NF) 40 MG TAB PO SCH (21:00)
[2018-04-13] MEDS ORDERED: Clopidogrel TAB* 75 MG PO SCH (21:00)
[2018-04-13] MEDS ORDERED: levETIRAcetam 500 MG IVPREMIX* 500 MG/100 ML BAG IV SCH (22:00)
[2018-04-13] MEDS ORDERED: Atropine SYRINGE* 0.1 MG/ML 10 ML SYRINGE (1 MG) IV PUSH PRN (22:32)
[2018-04-14] MEDS: Acetaminophen IV 1GM/100ML * 100 ML IVPB SCH ×3 (01:10→16:54)
[2018-04-14] MEDS: Ciproflox/Dexameth OTIC.SUSP* 7.5 ML BTL BOTH EARS SCH ×3 (01:10→20:23)
[2018-04-14] MEDS: hydrALAZINE IV* 20 MG/ML VIAL IV SLOW PU PRN (04:13)
[2018-04-14] MEDS: Heparin VIAL(*) 5000 UNITS/ML VIAL (FIVE THOUSAND) SUBCUT SCH ×3 (04:14→20:24)
[2018-04-14] MEDS ORDERED: Diazepam INJ (NF) 5 MG/ML 10 ML VIAL (50 MG TOTAL) IV ONE (05:00)
[2018-04-14 05:53] LABS: Hematocrit 34 % (35-47); Mean Corpuscular HGB Conc 32 g/dl (31-36); Mean Corpuscular Hemoglobin 28 pg (27-31); Mean Corpuscular Volume 86 fL (80-97); Mean Platelet Volume 7.6 fL (7.4-10.4); Platelet Count 82 10^3/ul (150-450); Red Blood Count 3.99 10^6/ul (4.00-5.40); Red Cell Distribution Width 17 % (10.5-15); White Blood Count 5.5 10^3/ul (3.5-10.8)
[2018-04-14 06:12] LABS: BUN/Creatinine Ratio 6.1 (8-20); Calcium 9.2 mg/dL (8.6-10.3); EGFR African American 22.8 (>60); EGFR Non-African American 18.8 (>60); Potassium 4.1 mmol/L (3.5-5.0)
[2018-04-14] MEDS ORDERED: LORazepam INJ* 2 MG/ML 1 ML VIAL ONE (06:35)
[2018-04-14] MEDS ORDERED: LORazepam INJ* 2 MG/ML 1 ML VIAL IV PUSH ONE (06:35)
[2018-04-14] MEDS ORDERED: Aspirin EC TAB* 81 MG TAB.EC PO SCH (09:00)
[2018-04-14] MEDS ORDERED: Famotidine IV * 20 MG in NS 0.9% 100 ML* 100 ML IVPB SCH (09:00)
[2018-04-14] MEDS: Famotidine IV* 10 MG/ML 2 ML (20 mg) IV SCH (09:06)
[2018-04-14] MEDS: niCARdipine 0.1MG/ML IVPREMIX* 20 MG/200 ML BAG IV SCH (09:10)
--- NOTE | 2018-04-14 11:12 | PN ---
Progress Note - Progress Note Date of Service: 04/14/18 Note: Progress Note -- Critical Care 24 hour events: -off NIV this morning -was febrile tmax 101 yesterday, started on sepsis pathway -s/p HD with 2 L off -off cardene last night but hypertensive this morning; on cardene now -mental status slightly better; able to state naem, but lethargic at times -restless, unable to perform CT brain/chest overnight, wont lay flat either -some ebony episodes to 40s and then comes back up again, no hypotension though -now afebrile 98-99 -off NIV, on NC, sats 90s, RR low 20s, no active severe resp distress Tele: sinus tachycardia Vitals: Vital Signs Temp 98.1 F 04/14/18 11:06 Pulse 75 04/14/18 11:00 Resp 22 04/14/18 11:00 BP 136/79 04/14/18 11:00 Pulse Ox 99 04/14/18 11:00 Intake & Output 04/13/18 04/14/18 04/14/18 18:59 06:59 18:59 Intake Total 0 706 Output Total 0 4200 0 Balance 0 -3494 0 Weight 50.3 kg 49.2 kg Intake: IV Fluids 300 ABX - CEFEPIME 50 ABX - VANCOMYCIN 250 IVPB 200 NS (0.9%) 200 Medicated IV 206 CC - Nicarpidine/Cardene 206 Oral 0 Output: Urine 0 0 0 Residual 0 Vides 16 Fr Temperature 0 Probe Other 4200 Other: Other Amount Description dialysis O2/Vent: NC Infusions: cardene 2.5 Current Medications: Acetaminophen (Tylenol Tab*) 650 mg PO Q4H PRN PRN Reason: PAIN Hydrocodone Bitart/Acetaminophen ([facility] 5-325 Tab*) 1 tab PO Q6H PRN PRN Reason: PAIN Aliskiren (Tekturna Tab*) 300 mg PO QAM [facility] Amlodipine Besylate (Norvasc Tab*) 10 mg PO QAM [facility] Atorvastatin Calcium (Lipitor*) 20 mg PO BEDTIME [facility] Last Admin: 04/13/18 20:06 Dose: Not Given Atropine Sulfate (Atropine Syringe*) 0.5 mg IV PUSH Q5M PRN PRN Reason: bradycardia <40 Calcitriol (Rocaltrol Cap*) 0.25 mcg PO QAM [facility] Ciprofloxacin/Dexamethasone (Ciprodex Otic.Susp*) 1 drop BOTH EARS BID [facility] Last Admin: 04/14/18 08:51 Dose: 1 drop Etanercept (Enbrel (Nf)) 25 mg SUBCUT Fr@0900 [facility] Famotidine (Pepcid Iv*) 20 mg IV DAILY@0900 [facility] Last Admin: 04/14/18 09:06 Dose: 20 mg Heparin Sodium (Porcine) (Heparin Vial(*)) 5,000 units SUBCUT Q8H [facility] Last Admin: 04/14/18 04:14 Dose: 5,000 units Hydralazine HCl (Apresoline Iv*) 5 mg IV SLOW PU Q6H PRN PRN Reason: SYSTOLIC BP GREATER THAN: Last Admin: 04/14/18 04:13 Dose: 5 mg Hydralazine HCl (Apresoline Tab*) 25 mg PO TID [facility] Nicardipine/Sodium Chloride (Cardene 0.1mg/Ml Ivpremix*) 20 mg in 200 mls @ 100 mls/hr IV .PER RATE [facility]; Protocol Last Admin: 04/14/18 09:10 Dose: 25 mls/hr Cefepime HCl 0.5 gm/ Sodium (Chloride) 50 mls @ 100 mls/hr IVPB Q24H [facility] Acetaminophen (Ofirmev*) 100 mls @ 400 mls/hr IVPB Q6HR [facility] Stop: 04/14/18 12:14 Last Admin: 04/14/18 05:43 Dose: 400 mls/hr Lorazepam (Ativan Inj*) 1 mg IV PUSH Q4H PRN PRN Reason: seizure Ondansetron HCl (Zofran Tab*) 4 mg PO Q8H PRN PRN Reason: NAUSEA Pharmacy Consult (Vancomycin - Dialysis Dosing*) 1 note FOLLOW UP .VANC PER PHARMACY [facility] Sertraline HCl (Zoloft*) 50 mg PO QAM [facility] Physical Exam: General: awake, intermittent lethargy, no sig distress, restless+, can follow some commands Head: normocephalic, atraumatic HEENT: no pallor, no icterus, moist mucous membranes Neck: soft, supple, no jvd, no stridor CVS: tachycardic, regular, no murmur Resp: bilateral air entry, no rhales, no wheeze, no rhonchi, no acc muscle use; Right chest permacath Abdomen: soft, nontender, nondistended, bowel sounds present Ext: pulses+, warm, no edema Skin: DRY Neuro: restless, awake, able to state name, moves all ext, pupils reactive bilaterally Labs: Laboratory Results - last 24 hr 04/13/18 04/13/18 04/14/18 18:28 21:29 01:02 WBC RBC Hgb Hct MCV MCH MCHC RDW Plt Count MPV Patient Temperature Not Reportable ABG pH 7.37 ABG pH (Temp Correct) Not Reportable ABG pCO2 52 H ABG pCO2 (Temp Corrct Not Reportable ABG pO2 117 H ABG pO2 (Temp Correct Not Reportable ABG HCO3 27.9 ABG O2 Saturation 98.9 H ABG Base Excess 3.9 H Respiration Rate Not Reportable Ventilator Type Not Reportable Vent Mode Not Reportable FiO2 40 Inspiratory Time Not Reportable PEEP Not Reportable Pressure Support Not Reportable Pressure Control Not Reportable EPAP 6 IPAP 16 BiPAP Not Reportable Sodium Potassium Chloride Carbon Dioxide Anion Gap BUN Creatinine Est GFR ( Amer) Est GFR (Non-Af Amer) BUN/Creatinine Ratio Glucose POC Glucose (mg/dL) 98 84 Calcium 04/14/18 04/14/18 04/14/18 05:35 05:35 05:38 WBC 5.5 RBC 3.99 L Hgb 11.0 L Hct 34 L MCV 86 MCH 28 MCHC 32 RDW 17 H Plt Count 82 L MPV 7.6 Patient Temperature ABG pH ABG pH (Temp Correct) ABG pCO2 ABG pCO2 (Temp Corrct ABG pO2 ABG pO2 (Temp Correct ABG HCO3 ABG O2 Saturation ABG Base Excess Respiration Rate Ventilator Type Vent Mode FiO2 Inspiratory Time PEEP Pressure Support Pressure Control EPAP IPAP BiPAP Sodium 134 L Potassium 4.1 Chloride 100 L Carbon Dioxide 28 Anion Gap 6 BUN 16 Creatinine 2.62 H Est GFR ( Amer) 22.8 Est GFR (Non-Af Amer) 18.8 BUN/Creatinine Ratio 6.1 L Glucose 70 POC Glucose (mg/dL) 79 Calcium 9.2 Imaging: cxr 04/13 - bilateral pulm congestion; left pleural effusion+ Assessment: 57y F pmhx of ESRD on HD, CAD s/p PCI, Diastolic Dysfunction, HTN, anxiety and depression, COPD on home O2, GERD, HTN, HLD; recent admission to [facility] 03/2018 to ICU for acute on chronic hypercapneic respiratory failure, requiring NIV. She subsequently improved in the ICU. Suspicion of possible BDZ causing the respiratoyr failure and hypercapnea were entertained, so Lorazepam/ Bdz were discontinued on discharge. She comes to ER [facility] today 04/13 for sudden increasing respiratoyr distress since last night. She missed HD sessions but had 1 day prior to admission. In ER, imaging demonstrated pulm congestion. Bradycardia 20-30s, s/p atropine given with improvement. Sudden GTC Seizure, self-limited in ER, with worsened resp status and encephalopathy, remains DNR and DNI with possible change based on status again. Hypertensive 220s post seizure -Seizure -Acute on chronic hypercapneic and hypoxic respiratory failure -Encephalopathy, multifactorial -Hypertensive Urgency -Pulmonary Congestion -acute on chronic decompensated LV diastolic CHF -Bradycardia -ESRD on HD CAD COPD Plan: Neuro- some improvement in mental status, no further seizing noted. ativan PRN. holding methadone and other sedatives for now. Unable to obtain CT brain due to restlessness, giving more sedation may compromise resp status also. Seems she was able to follow more yesterday once in ICU and post-ictal state improved. Keppra held, unclear reason for seizure. Fever but afebrile now. if no improvemet in neurostatus, will consider LP if family wants to pursue all measures. Neurochecks. asp prec. hold asa/plavix, poor mental status. hold zoloft for depression. no antipsychotics for delirium as they lower seizure threshold. Obtain EEG if able. CVS- Hypertensive; on/off cardene. start PO antihypertensives if able to swallow. no NGT as per patient wishes. BP imrpoved with HD, for short HD today. ?pulm congestion, BNP elevated, some component of diastolic dysfxn from htn but no large pulm edema noted. may benefit from short HD and voluem removal. hold asa/plavix for now. Bradycardia to 40s, transient but no hemodyn change; hold BB and other potential agent. Atropine PRN. Resp- off NIV, on oximask now, no sig distress. will monitor, NIV as needed. DNR /DNI. No wheezing, has improved resp status, held off steroids yesterday. Will trial low dose to see if added benefit. No focal infitlrate on CXR yesterday, repeat CXR tomorrow. -hold sedating agents, methadone/hydroxazine ID- tmax 101, wbc normal. BP hypertensive. No focal process on CXR. no cough. anuric. blood culture x2 sent. Right permcath on chest+. s/p vanco and cefepime. cont Cefepime 500mg qdaily (day#2) and Vanco 1 gm with HD (day#2). Pending cultures. GI- NPO. asp prec. GERD, h2b iv daily. Renal- ESRD on HD; for short HD today. Clinically dry, under her dry weight too. BP control. ?pulm congestion. cover for pneumoia. pending blood cultures to make sure no bacteremia, as permcath can be source of infection. IV abx. Nephrology consulted, discussed case. Heme- hg stable. plt stable. hold asa/plavix. DVT proph with SCDs Endo- fingersticks q6h Musculsk- pressure ulcer prophylaxis. Bedrest. Wounds- none Nutrition- NPO DVT prophylaxis: SCDs GI prophylaxis: h2b Central Line: no Arterial Line: no Vides Cathetor: no Disposition: ICU Code Status: DNR, DNI as per Son with possible change if status worsens again. Total Critical Care time is 35 minutes, excluding procedures/teaching Rajan Patton MD Lead Custodian (Electronically Signed)
[2018-04-14] MEDS: Calcitriol CAP* 0.25 MCG PO SCH (11:39)
[2018-04-14] MEDS: Aliskiren TAB* 300 MG PO SCH ×2 (11:39→17:02)
[2018-04-14] MEDS: amLODIPine TAB* 5 MG PO SCH ×2 (11:39→17:01)
[2018-04-14] MEDS: hydrALAZINE TAB* 25 MG PO SCH ×3 (11:39→20:23)
[2018-04-14] MEDS: Sertraline* 50 MG TAB PO SCH ×2 (11:40→17:01)
[2018-04-14] MEDS ORDERED: Vancomycin(*) 1,000 MG in NS 0.9% 250 ML* 250 ML IVPB ONE (11:56)
[2018-04-14] MEDS: methylPREDNISolone SOD 40 MG* 1 ML VIAL IV SCH ×2 (13:04→23:43)
[2018-04-14] MEDS ORDERED: Vancomycin(*) 500 MG in NS 0.9% 250 ML* 250 ML IVPB SCH (14:00)
[2018-04-14] MEDS ORDERED: Cefepime ADVAN(*) 2 GM ADDV.VIAL IVPB SCH (18:00)
[2018-04-14] MEDS: Cefepime(*) 0.5 GM in NS 0.9% 50 ML* 50 ML IVPB SCH (20:23)
[2018-04-14] MEDS: Atorvastatin* 20 MG TAB PO SCH (20:24)
--- NOTE | 2018-04-14 22:43 | PN ---
PROGRESS NOTE: DATE OF VISIT: 04/14/18 HISTORY: Ms. Charles is well known to me from outpatient management of her chronic renal failure. She presented to the hospital yesterday with shortness of breath and she has some evidence of respiratory failure and there was some suggestion of cardiogenic pulmonary edema on her chest x-ray. As a result, we went ahead with dialysis earlier than her usual schedule last evening. Her weight is down considerably since admission and her respiratory status has improved. She did, however, spike a fever to 101.3 last evening. The source of that infection is not clear. She does have a central venous dialysis catheter in place and we always have to be suspicious that this is the source of infection. She is barely arousable this morning. The best she will do is say, , when stimulated and attempts were made to examine her. Her chest is actually significant that she has some upper airway nor has been no focal findings. Heart revealed a regular rhythm. I did not hear any murmurs. Her skin is warm and dry. Her mucous membranes are dry, but she is a mouth breather and has always been like that when I see her in the dialysis unit. She was quite hypertensive and required a Cardene drip. Her blood pressure came down nicely with the Cardene and dialysis, but she is back up to 176/104 at this point. Her Gram stain and blood cultures are not back yet. Her laboratory values reveal a white count of 5.5 with hemoglobin of 11. Interestingly enough, her admission hemoglobin was 14.2, which is 3 g higher than her usual in the dialysis unit and makes me suspicious as to the result. Sodium 134, potassium 4.1, total CO2 of 28, chloride 100, BUN 16 with creatinine of 2.62. DISCUSSION: We really do not know what the source of her injection is at the present time, but obviously I have to be suspicious of her dialysis catheter. If she comes back with gram positive organisms on her Gram stain, I think it would be appropriate to dialyze her today and then pull the catheter. We would then wait while receiving therapy and then replace the dialysis catheter before resuming dialysis. If the Gram stain is negative, we probably will proceed on with dialysis on our routine schedule until the cultures come back. IMPRESSION: 1. Respiratory failure. 2. Chronic renal failure. 3. Sepsis, etiology to be determined. I have discussed the case at length with Dr. Patton. [id number]/[facility] #: [id number] EL
[2018-04-15] MEDS: hydrALAZINE IV* 20 MG/ML VIAL IV SLOW PU PRN ×2 (01:16→19:20)
[2018-04-15] MEDS: Albuterol 2.5 MG/3 ML NEB.SOL* (0.083%) INH PRN (01:55)
[2018-04-15] MEDS: Heparin VIAL(*) 5000 UNITS/ML VIAL (FIVE THOUSAND) SUBCUT SCH (03:39)
--- NOTE | 2018-04-15 05:14 | EEG ---
ELECTROENCEPHALOGRAPHY: DATE OF STUDY: - ROOM #ICU-7 DATE OF DICTATION: 04/14/18 PATIENT OF: Dr. Patton. HISTORY: A 57-year-old woman being evaluated for confusion and following a possible seizure followed admission for respiratory distress. MEDICATIONS: 1. Hydralazine. 2. Heparin. 3. Cefepime. 4. Atorvastatin. 5. Famotidine. 6. Atropine. 7. [place]. 8. Lorazepam. 9. Ondansetron. 10. Etanercept. 11. Vancomycin. 12. Aspirin. 13. Valium. 14. Keppra. 15. Haldol. 16. Methadone. INTERPRETATION: With the patient thrashing but without eyes opening and not on a respirator, background cerebral activity showed diffuse admixed delta theta activity with some admixed alpha range frequencies. Prominent muscle movement artifact was noted throughout the tracings, no focal abnormalities, major asymmetries of background, no epileptiform potentials were noted. IMPRESSION: This EEG is abnormal because of diffuse slowing of background consistent with encephalopathy but not specific as to etiology. Medications that the patient is consuming may be contributing to some of the slowing. [id number]/[facility] #: [id number] MTDD
[2018-04-15] MEDS ORDERED: hydrALAZINE IV* 20 MG/ML VIAL IV SLOW PU ONE (05:30)
[2018-04-15 06:24] LABS: Hematocrit 37 % (35-47); Hemoglobin 11.8 g/dl (12.0-16.0); Mean Corpuscular HGB Conc 32 g/dl (31-36); Mean Corpuscular Hemoglobin 27 pg (27-31); Mean Corpuscular Volume 86 fL (80-97); Mean Platelet Volume 7.6 fL (7.4-10.4); Platelet Count 124 10^3/ul (150-450); Red Blood Count 4.34 10^6/ul (4.00-5.40); Red Cell Distribution Width 17 % (10.5-15); White Blood Count 5.8 10^3/ul (3.5-10.8)
[2018-04-15 06:37] LABS: Calcium 9.1 mg/dL (8.6-10.3); Potassium 4.3 mmol/L (3.5-5.0)
[2018-04-15 06:42] LABS: BUN/Creatinine Ratio 9.5 (8-20); EGFR African American 27.7 (>60); EGFR Non-African American 22.9 (>60); Vancomycin Random 14.9 mcg/mL
[2018-04-15] MEDS: Aliskiren TAB* 300 MG PO SCH (08:29)
[2018-04-15] MEDS: hydrALAZINE TAB* 25 MG PO SCH ×2 (08:29→19:29)
[2018-04-15] MEDS: Famotidine IV* 10 MG/ML 2 ML (20 mg) IV SCH (08:29)
[2018-04-15] MEDS: Ciproflox/Dexameth OTIC.SUSP* 7.5 ML BTL BOTH EARS SCH ×2 (08:30→19:34)
[2018-04-15] MEDS: Calcitriol CAP* 0.25 MCG PO SCH (09:33)
[2018-04-15] MEDS: amLODIPine TAB* 5 MG PO SCH (09:33)
[2018-04-15] MEDS: Sertraline* 50 MG TAB PO SCH (09:33)
[2018-04-15] MEDS ORDERED: hydrALAZINE TAB* 25 MG PO ONE (11:06)
[2018-04-15] MEDS ORDERED: Methadone TAB* 5 MG PO PRN (11:14)
--- NOTE | 2018-04-15 11:23 | PN ---
Progress Note - Progress Note Date of Service: 04/15/18 Note: Progress Note -- Critical Care 24 hour events: -more alert/awake yesterday evening; s/p hd 04/14 with 1 liter off -no further seizures -on NC, off NIV, sats 100%, no distress -afebrile, no cough/cp/sob -BP 190s; was on cardene after HD, off overnight -this morning dosed meds Tele: NSR Vitals: Vital Signs Temp 98.5 F 04/15/18 08:00 Pulse 79 04/15/18 10:15 Resp 14 04/15/18 10:15 BP 182/99 04/15/18 10:15 Pulse Ox 100 04/15/18 10:15 Intake & Output 04/14/18 04/15/18 04/15/18 18:59 06:59 18:59 Intake Total 392 511 125 Output Total 0 0 Balance 392 511 125 Weight 51.2 kg Intake: IV Fluids 20 65 ABX - CEFEPIME 50 NS (0.9%) 20 15 IVPB 272 46 ABX - VANCOMYCIN 272 NS (0.9%) 46 Medicated IV 50 CC - Nicarpidine/Cardene 50 Oral 50 400 125 Output: Urine 0 0 Other: Date of Last Bowel t Movement # Bowel Movements 1 Estimated Stool Amount Medium O2/Vent: NC 3L Infusions: heplock Current Medications: Acetaminophen (Tylenol Tab*) 650 mg PO Q4H PRN PRN Reason: PAIN Hydrocodone Bitart/Acetaminophen ([place] 5-325 Tab*) 1 tab PO Q6H PRN PRN Reason: PAIN Albuterol (Ventolin 2.5 Mg/3 Ml Neb.Francy*) 2.5 mg INH Q4H PRN PRN Reason: SOB/WHEEZING Last Admin: 04/15/18 01:55 Dose: 2.5 mg Aliskiren (Tekturna Tab*) 300 mg PO QAM [facility] Last Admin: 04/15/18 08:29 Dose: 300 mg Amlodipine Besylate (Norvasc Tab*) 10 mg PO QAM [facility] Last Admin: 04/15/18 09:33 Dose: 10 mg Atorvastatin Calcium (Lipitor*) 20 mg PO BEDTIME [facility] Last Admin: 04/14/18 20:24 Dose: 20 mg Atropine Sulfate (Atropine Syringe*) 0.5 mg IV PUSH Q5M PRN PRN Reason: bradycardia <40 Calcitriol (Rocaltrol Cap*) 0.25 mcg PO QAM [facility] Last Admin: 04/15/18 09:33 Dose: 0.25 mcg Ciprofloxacin/Dexamethasone (Ciprodex Otic.Susp*) 1 drop BOTH EARS BID [facility] Last Admin: 04/15/18 08:30 Dose: 1 drop Etanercept (Enbrel (Nf)) 25 mg SUBCUT Fr@0900 [facility] Famotidine (Pepcid Iv*) 20 mg IV DAILY@0900 [facility] Last Admin: 04/15/18 08:29 Dose: 20 mg Hydralazine HCl (Apresoline Iv*) 5 mg IV SLOW PU Q6H PRN PRN Reason: SYSTOLIC BP GREATER THAN: Last Admin: 04/15/18 01:16 Dose: 5 mg Hydralazine HCl (Apresoline Tab*) 50 mg PO TID [facility] Nicardipine/Sodium Chloride (Cardene 0.1mg/Ml Ivpremix*) 20 mg in 200 mls @ 100 mls/hr IV .PER RATE [facility]; Protocol Last Admin: 04/14/18 09:10 Dose: 25 mls/hr Cefepime HCl 0.5 gm/ Sodium (Chloride) 50 mls @ 100 mls/hr IVPB Q24H [facility] Stop: 04/15/18 23:59 Last Admin: 04/14/18 20:23 Dose: 100 mls/hr Lorazepam (Ativan Inj*) 1 mg IV PUSH Q4H PRN PRN Reason: seizure Methylprednisolone Sodium Succinate (Solu-Medrol 40 Mg) 40 mg IV DAILY [facility] Ondansetron HCl (Zofran Tab*) 4 mg PO Q8H PRN PRN Reason: NAUSEA Sertraline HCl (Zoloft*) 50 mg PO QAM [facility] Last Admin: 04/15/18 09:33 Dose: 50 mg Physical Exam: General: awake, alert, no distress Head: normocephalic, atraumatic HEENT: no pallor, no icterus, moist mucous membranes Neck: soft, supple, no jvd, no stridor CVS: normal rate, regular, no murmur Resp: bilateral air entry, no rhales, no wheeze, no rhonchi, no acc muscle use; Right chest permacath Abdomen: soft, nontender, nondistended, bowel sounds present Ext: pulses+, warm, no edema Skin: DRY Neuro: awake/alert, oriented x3, no distress, moves all ext Labs: Laboratory Results - last 24 hr 04/13/18 04/14/18 04/14/18 08:34 11:32 11:57 WBC RBC Hgb Hct MCV MCH MCHC RDW Plt Count MPV Hem Pathologist Commnt Sodium Potassium Chloride Carbon Dioxide Anion Gap BUN Creatinine Est GFR ( Amer) Est GFR (Non-Af Amer) BUN/Creatinine Ratio Glucose POC Glucose (mg/dL) Calcium Troponin I 0.05 H* Vancomycin Trough 8.7 Random Vancomycin 04/14/18 04/14/18 04/14/18 12:05 17:55 23:38 WBC RBC Hgb Hct MCV MCH MCHC RDW Plt Count MPV Hem Pathologist Commnt Sodium Potassium Chloride Carbon Dioxide Anion Gap BUN Creatinine Est GFR ( Amer) Est GFR (Non-Af Amer) BUN/Creatinine Ratio Glucose POC Glucose (mg/dL) 85 80 167 H Calcium Troponin I Vancomycin Trough Random Vancomycin 04/15/18 04/15/18 05:50 05:50 WBC 5.8 RBC 4.34 Hgb 11.8 L Hct 37 MCV 86 MCH 27 MCHC 32 RDW 17 H Plt Count 124 L MPV 7.6 Hem Pathologist Commnt Sodium 133 L Potassium 4.3 Chloride 97 L Carbon Dioxide 27 Anion Gap 9 BUN 21 Creatinine 2.21 H Est GFR ( Amer) 27.7 Est GFR (Non-Af Amer) 22.9 BUN/Creatinine Ratio 9.5 Glucose 121 H POC Glucose (mg/dL) Calcium 9.1 Troponin I Vancomycin Trough Random Vancomycin 14.9 Imaging: cxr 04/13 - bilateral pulm congestion; left pleural effusion+ CT brain 04/14 - chronic changes; chronic encephalomalacia right occ and left BG EEG 04/14 - abnormal, likely metabolic dysfunction; no acute seizure activity mentioned Assessment: 57y F pmhx of ESRD on HD, CAD s/p PCI, Diastolic Dysfunction, HTN, anxiety and depression, COPD on home O2, GERD, HTN, HLD; recent admission to [facility] 03/2018 to ICU for acute on chronic hypercapneic respiratory failure, requiring NIV. She subsequently improved in the ICU. Suspicion of possible BDZ causing the respiratoyr failure and hypercapnea were entertained, so Lorazepam/ Bdz were discontinued on discharge. She comes to ER [facility] today 04/13 for sudden increasing respiratoyr distress since last night. She missed HD sessions but had 1 day prior to admission. In ER, imaging demonstrated pulm congestion. Bradycardia 20-30s, s/p atropine given with improvement. Sudden GTC Seizure, self-limited in ER, with worsened resp status and encephalopathy, remains DNR and DNI with possible change based on status again. Hypertensive 220s post seizure -Seizure -Acute on chronic hypercapneic and hypoxic respiratory failure -Encephalopathy, multifactorial -Hypertensive Urgency -Pulmonary Congestion -acute on chronic decompensated LV diastolic CHF -Bradycardia -ESRD on HD CAD COPD Plan: Neuro- alert/awake, sometimes has some hallucionations still, almost to baseline as per son. no further bdz unless needed. no seizures. EEG negative. delirium prec, asp prec. restart methadone PO. neurochecks. asp prec. restart asa/plavix. restart zoloft for depression. CVS- Hypertensive; BP elevated; off cardene; dosing PO meds and icnreasing. cont norvasc 10, aliskiren; inc hydralazine to 50mg tid. -no further BB/CCB for rate controll; no bradycardia further but will hold given prior ebony issues also, unclear if resp related but was not hypoxic/ hypercap during episodes. -s/p HD with some volume removal yesterday; not planned today, appears dry now. Resp- on NC 3L, baseline 2L; con to wean. NIV if needed. DNR, trial of intubation. No wheezing. -start solumedrol taper to 40mg IV dialy; bronchodilators PRN ID- tmax 99, wbc normal. No focal process on CXR. no cough. blood culture neg so far. Vanco since yesterday HD given, d/c further vanco unless culture positive tomorrw (day#3). Give next cefepime tonight (day#3), then d/c. Re-eval tomorrow if any further growth from cultures, otherwise no more abx. GI- start honey thick, soft, renal diet. asp prec. GERD, h2b ipo daily. Renal- ESRD on HD; s/p HD 04/14. CLinicaly dry, lower weight. Blood culture neg. no plan for HD today, re-eval tomorrow. Nephrology following. BP control today with PO meds. Heme- hg stable. plt stable. restart asa/plavix. DVT proph with SCDs Endo- fingersticks q6h Musculsk- pressure ulcer prophylaxis. oob to chair Wounds- none Nutrition- renal diet, honey thick, soft DVT prophylaxis: SCDs GI prophylaxis: h2b Central Line: no Arterial Line: no Vides Cathetor: no Disposition: ICU today for blood pressure control Code Status: DNR, trial of intubation as per patient/son, confirmed Total Critical Care time is 35 minutes, excluding procedures/teaching Rajan Patton MD Senior [employer] Developer (Electronically Signed)
[2018-04-15] MEDS ORDERED: hydrALAZINE TAB* 25 MG PO SCH (14:00)
[2018-04-15] MEDS ORDERED: Haloperidol INJ IV/IM* 5 MG/ML AMP IV SLOW PU PRN ×2 (14:41→16:24)
[2018-04-15] MEDS ORDERED: QUEtiapine TAB* 25 MG PO ONE (16:24)
[2018-04-15] MEDS: Cefepime(*) 0.5 GM in NS 0.9% 50 ML* 50 ML IVPB SCH (19:24)
[2018-04-15] MEDS: Atorvastatin* 20 MG TAB PO SCH (19:27)
--- NOTE | 2018-04-15 21:01 | PN ---
PROGRESS NOTE: ADDENDUM: DATE OF VISIT: 04/14/18 There is a blank 6 lines down and that should be "ow!" [id number]/[facility] #: [id number] EL
[2018-04-15] MEDS ORDERED: Isosorbide Mononitrate ER TAB* 30 MG PO ONE (22:00)
[2018-04-16] MEDS: hydrALAZINE IV* 20 MG/ML VIAL IV SLOW PU PRN ×2 (04:35→22:21)
[2018-04-16 05:37] LABS: Hematocrit 34 % (35-47); Mean Corpuscular HGB Conc 32 g/dl (31-36); Mean Corpuscular Hemoglobin 28 pg (27-31); Mean Corpuscular Volume 86 fL (80-97); Mean Platelet Volume 7.1 fL (7.4-10.4); Platelet Count 149 10^3/ul (150-450); Red Blood Count 3.96 10^6/ul (4.00-5.40); Red Cell Distribution Width 18 % (10.5-15); White Blood Count 8.4 10^3/ul (3.5-10.8)
[2018-04-16 05:57] LABS: BUN/Creatinine Ratio 10.2 (8-20); Calcium 9.4 mg/dL (8.6-10.3); EGFR African American 16.6 (>60); EGFR Non-African American 13.7 (>60); Potassium 4.2 mmol/L (3.5-5.0)
[2018-04-16] MEDS ORDERED: Vancomycin Random Level* NOTE FOLLOW UP SCH (06:00)
[2018-04-16 06:40] LABS: Vancomycin Random 13.5 mcg/mL
[2018-04-16] MEDS: hydrALAZINE TAB* 25 MG PO SCH (07:53)
[2018-04-16] MEDS: Clopidogrel TAB* 75 MG PO SCH (07:56)
[2018-04-16] MEDS: amLODIPine TAB* 5 MG PO SCH (07:56)
[2018-04-16] MEDS: Famotidine TAB* 20 MG PO SCH (07:57)
[2018-04-16] MEDS: Sertraline* 50 MG TAB PO SCH ×2 (07:57→08:00)
[2018-04-16] MEDS: Aliskiren TAB* 300 MG PO SCH (07:58)
[2018-04-16] MEDS: Aspirin 81 mg CHEW TAB* 81 MG TAB.CHEW PO SCH (07:58)
[2018-04-16] MEDS: Ciproflox/Dexameth OTIC.SUSP* 7.5 ML BTL BOTH EARS SCH ×2 (08:01→20:39)
[2018-04-16] MEDS: Calcitriol CAP* 0.25 MCG PO SCH (08:05)
[2018-04-16] MEDS ORDERED: methylPREDNISolone SOD 40 MG* 1 ML VIAL IV SCH (09:00)
--- NOTE | 2018-04-16 09:05 | PN ---
PROGRESS NOTE: DATE OF VISIT: 04/15/18 - ROOM #ICU-07 HISTORY: Ms. Charles is awake and alert today, feeling much better. She is breathing easily. She has been out of bed. She has been eating. Her blood pressure remains somewhat elevated at 184/121. She has begun her oral medications again with the exception of carvedilol because of some bradycardia. I had a discussion with her again today as I have had in the past with regards to question of discontinuation of dialysis. She wants to proceed along with dialysis at the present time and that has been unchanged from her previously expressed wishes. It is difficult to decide what to do with her blood pressure. She has received hydralazine, but this is going to be difficult to use without some rate-limiting agent; however, with her bradycardia , we would have to be very cautious with a beta- samira as well as the nondihydropyridine calcium channel blockers. While it would be rare to use digoxin these days, it may be the actually safest agent we have available to limit the reflex tachycardia of the hydralazine. An alternative would be clonidine, which can also occasionally have bradycardia, however, that is typically seen when used in conjunction with other rate-limiting agents. Since she is already on aliskiren, ANTONIO inhibitors and angiotensin receptor blockers would be superfluous. Clearly, diuretics will not give us much value in the present circumstance. We could use other alpha agents such as doxazosin. These typically are not as potent as hydralazine would be. [id number]/[facility] #: [id number] MTDD
[2018-04-16] MEDS ORDERED: ALPRAZolam TAB* 0.25 MG PO ONE ×2 (14:06→20:39)
--- NOTE | 2018-04-16 14:06 | PN ---
Progress Note - Progress Note Date of Service: 04/16/18 Note: Progress Note -- Critical Care 24 hour events: -alert/awake, no confusion overnight; no distress. now oin chair, eating meal -BP 150-160s, no cardene infusion -plan for HD today Tele: NSR Vitals: Vital Signs Temp 98.3 F 04/16/18 12:00 Pulse 77 04/16/18 13:00 Resp 25 04/16/18 13:00 BP 155/104 04/16/18 13:00 Pulse Ox 98 04/16/18 13:00 Intake & Output 04/15/18 04/16/18 04/16/18 18:59 06:59 18:59 Intake Total 355 311.4 635 Output Total 75 0 Balance 355 236.4 635 Weight 49.5 kg Intake: IV Fluids 111.4 ABX - CEFEPIME 60 NS (0.9%) 51.4 Oral 355 200 635 Output: Urine 0 0 Vides 75 O2/Vent: NC 2-3L, sat upper 90s Infusions: heplock Current Medications: Acetaminophen (Tylenol Tab*) 650 mg PO Q4H PRN PRN Reason: PAIN Hydrocodone Bitart/Acetaminophen ([place] 5-325 Tab*) 1 tab PO Q6H PRN PRN Reason: PAIN Albuterol (Ventolin 2.5 Mg/3 Ml Neb.Francy*) 2.5 mg INH Q4H PRN PRN Reason: SOB/WHEEZING Last Admin: 04/15/18 01:55 Dose: 2.5 mg Aliskiren (Tekturna Tab*) 300 mg PO QAM [facility] Last Admin: 04/16/18 07:58 Dose: 300 mg Amlodipine Besylate (Norvasc Tab*) 10 mg PO QAM [facility] Last Admin: 04/16/18 07:56 Dose: 10 mg Aspirin (Aspirin 81 Mg Chew Tab*) 81 mg PO DAILY [facility] Last Admin: 04/16/18 07:58 Dose: 81 mg Atorvastatin Calcium (Lipitor*) 20 mg PO BEDTIME [facility] Last Admin: 04/15/18 19:27 Dose: 20 mg Atropine Sulfate (Atropine Syringe*) 0.5 mg IV PUSH Q5M PRN PRN Reason: bradycardia <40 Calcitriol (Rocaltrol Cap*) 0.25 mcg PO QAM [facility] Last Admin: 04/16/18 08:05 Dose: 0.25 mcg Ciprofloxacin/Dexamethasone (Ciprodex Otic.Susp*) 1 drop BOTH EARS BID [facility] Last Admin: 04/16/18 08:01 Dose: 1 drop Clopidogrel Bisulfate (Plavix Tab*) 75 mg PO DAILY [facility] Last Admin: 04/16/18 07:56 Dose: 75 mg Famotidine (Pepcid Tab*) 20 mg PO DAILY [facility] Last Admin: 04/16/18 07:57 Dose: 20 mg Haloperidol Lactate (Haldol Inj Iv/Im*) 5 mg IV SLOW PU Q6H PRN PRN Reason: delirium, restlessness Last Admin: 04/15/18 16:29 Dose: 5 mg Hydralazine HCl (Apresoline Iv*) 5 mg IV SLOW PU Q6H PRN PRN Reason: SYSTOLIC BP GREATER THAN: Last Admin: 04/16/18 04:35 Dose: 5 mg Hydralazine HCl (Apresoline Tab*) 100 mg PO TID [facility] Nicardipine/Sodium Chloride (Cardene 0.1mg/Ml Ivpremix*) 20 mg in 200 mls @ 100 mls/hr IV .PER RATE [facility]; Protocol Last Admin: 04/14/18 09:10 Dose: 25 mls/hr Isosorbide Mononitrate (Imdur Er Tab*) 30 mg PO Q24H [facility] Lorazepam (Ativan Inj*) 1 mg IV PUSH Q4H PRN PRN Reason: seizure Methadone HCl (Dolophine Tab*) 5 mg PO Q12H PRN PRN Reason: PAIN - MODERATE Methylprednisolone Sodium Succinate (Solu-Medrol 40 Mg) 40 mg IV DAILY [facility] Last Admin: 04/16/18 08:01 Dose: 40 mg Ondansetron HCl (Zofran Tab*) 4 mg PO Q8H PRN PRN Reason: NAUSEA Sertraline HCl (Zoloft*) 50 mg PO DAILY [facility] Last Admin: 04/16/18 08:00 Dose: 50 mg Physical Exam: General: awake, alert, no distress Head: normocephalic, atraumatic HEENT: no pallor, no icterus, moist mucous membranes Neck: soft, supple, no jvd, no stridor CVS: normal rate, regular, no murmur Resp: bilateral air entry, no rhales, no wheeze, no rhonchi, no acc muscle use; Right chest permacath Abdomen: soft, nontender, nondistended, bowel sounds present Ext: pulses+, warm, no edema Skin: DRY Neuro: awake/alert, oriented x3, no distress, moves all ext Labs: Laboratory Results - last 24 hr 04/16/18 04/16/18 05:20 05:20 WBC 8.4 RBC 3.96 L Hgb 11.0 L Hct 34 L MCV 86 MCH 28 MCHC 32 RDW 18 H Plt Count 149 L MPV 7.1 L Sodium 133 L Potassium 4.2 Chloride 99 L Carbon Dioxide 26 Anion Gap 8 BUN 35 H Creatinine 3.44 H Est GFR ( Amer) 16.6 Est GFR (Non-Af Amer) 13.7 BUN/Creatinine Ratio 10.2 Glucose 104 H Calcium 9.4 Random Vancomycin 13.5 Imaging: cxr 04/13 - bilateral pulm congestion; left pleural effusion+ CT brain 04/14 - chronic changes; chronic encephalomalacia right occ and left BG EEG 04/14 - abnormal, likely metabolic dysfunction; no acute seizure activity mentioned Assessment: 57y F pmhx of ESRD on HD, CAD s/p PCI, Diastolic Dysfunction, HTN, anxiety and depression, COPD on home O2, GERD, HTN, HLD; recent admission to [facility] [place] 03[place] to ICU for acute on chronic hypercapneic respiratory failure, requiring NIV. She subsequently improved in the ICU. Suspicion of possible BDZ causing the respiratoyr failure and hypercapnea were entertained, so Lorazepam/ Bdz were discontinued on discharge. She comes to ER [facility] [place] today 04/13 for sudden increasing respiratoyr distress since last night. She missed HD sessions but had 1 day prior to admission. In ER, imaging demonstrated pulm congestion. Bradycardia 20-30s, s/p atropine given with improvement. Sudden GTC Seizure, self-limited in ER, with worsened resp status and encephalopathy, remains DNR and DNI with possible change based on status again. Hypertensive 220s post seizure -Seizure -Acute on chronic hypercapneic and hypoxic respiratory failure -Encephalopathy, multifactorial -Hypertensive Urgency -Pulmonary Congestion -acute on chronic decompensated LV diastolic CHF -Bradycardia -ESRD on HD CAD COPD Plan: Neuro- alert/awake, haldol prn if repeat delirium. some anxiety, give xanax 0.125mg x1 only. EEG negative. delirium prec, asp prec. methadone 5mg bid prn; but has not asked for it, no pain either, will ask patient if she even required it. asp prec. asa/plavix. zoloft for depression. CVS- Hypertensive; off drips; increase hydralazine 100mg tid; cont norvasc 10/ tekturna 300. started imdur 30mg last night. BP may improve after HD also. -limiting CCB/BB 2/2 to bradycardia. will consider clonidine as next agent, reviewed nephrology note. no further ebony noted. -HD planned today Resp- on NC 3L, baseline 2L; stable. taper solumedrol; bronchodilators PRN ID- afebrile, wbc normal. no clear source of infection, nontoxic. s/p 3 days cefepime. monitor off abx. culture negative. GI- honey thick/mechanical soft, renal diet. asp prec. GERD, h2b ipo daily. Renal- ESRD on HD; HD planned today. Increase antihypertensives as above. will consider adding clonidine. Heme- hg stable. plt stable. asa/plavix. DVT proph with SCDs Endo- - Musculsk- pressure ulcer prophylaxis. oob to chair Wounds- none Nutrition- renal diet, honey thick/soft DVT prophylaxis: SCDs GI prophylaxis: h2b Central Line: no Arterial Line: no Vides Cathetor: no Disposition: if BP better today; will consider transfer to [facility] after Hemodialysis Code Status: DNR, trial of intubation as per patient/son Rajan Patton MD House Mover Supervisor (Electronically Signed)
[2018-04-16] MEDS: hydrALAZINE TAB* 100 MG ** ONE HUNDRED PO SCH ×2 (14:16→20:39)
[2018-04-16] MEDS ORDERED: Heparin DIALYSIS ONLY(*) 1,000 UNITS/ML VIAL DIALYSIS ONE (18:00)
[2018-04-16] MEDS: Atorvastatin* 20 MG TAB PO SCH (20:40)
[2018-04-16] MEDS ORDERED: Isosorbide Mononitrate ER TAB* 30 MG PO SCH (21:00)
[2018-04-16] MEDS: HYDROcodone/ACETAMIN 5-325 MG* 1 TAB PO PRN (22:57)
[2018-04-17] MEDS ORDERED: hydrALAZINE IV* 20 MG/ML VIAL IV SLOW PU ONE ×2 (01:30→13:04)
[2018-04-17] MEDS: hydrALAZINE IV* 20 MG/ML VIAL IV SLOW PU PRN ×2 (03:21→08:52)
[2018-04-17 05:29] LABS: Hematocrit 36 % (35-47); Hemoglobin 11.6 g/dl (12.0-16.0); Mean Corpuscular HGB Conc 32 g/dl (31-36); Mean Corpuscular Hemoglobin 28 pg (27-31); Mean Corpuscular Volume 87 fL (80-97); Platelet Count 151 10^3/ul (150-450); Red Blood Count 4.19 10^6/ul (4.00-5.40); Red Cell Distribution Width 17 % (10.5-15); White Blood Count 7.6 10^3/ul (3.5-10.8)
[2018-04-17 05:46] LABS: BUN/Creatinine Ratio 6.7 (8-20); EGFR African American 25.2 (>60); EGFR Non-African American 20.8 (>60)
[2018-04-17 06:29] LABS: Vancomycin Random 9.6 mcg/mL
[2018-04-17] MEDS: hydrALAZINE TAB* 100 MG ** ONE HUNDRED PO SCH ×5 (08:44→21:13)
[2018-04-17] MEDS: Famotidine TAB* 20 MG PO SCH (08:44)
[2018-04-17] MEDS: amLODIPine TAB* 5 MG PO SCH ×3 (08:45→11:37)
[2018-04-17] MEDS: Clopidogrel TAB* 75 MG PO SCH (08:45)
[2018-04-17] MEDS: Sertraline* 50 MG TAB PO SCH (08:45)
[2018-04-17] MEDS: Aspirin 81 mg CHEW TAB* 81 MG TAB.CHEW PO SCH (08:45)
[2018-04-17] MEDS: Aliskiren TAB* 300 MG PO SCH (08:46)
[2018-04-17] MEDS: Ciproflox/Dexameth OTIC.SUSP* 7.5 ML BTL BOTH EARS SCH ×2 (08:47→21:13)
[2018-04-17] MEDS ORDERED: methylPREDNISolone SOD 40 MG* 1 ML VIAL IV SCH (09:00)
[2018-04-17] MEDS: Calcitriol CAP* 0.25 MCG PO SCH (11:25)
[2018-04-17] MEDS ORDERED: hydrALAZINE IV* 20 MG/ML VIAL IV SLOW PU PRN (13:04)
[2018-04-17] MEDS: Doxazosin TAB* 2 MG PO SCH (13:15)
--- NOTE | 2018-04-17 15:05 | PN ---
Progress Note - Progress Note Date of Service: 04/17/18 Note: Progress Note -- Critical Care 24 hour events: -alert/awake, no confusion overnight; no distress -BP 190s, now to 130s after medications Tele: NSR Vitals: Vital Signs Temp 98.2 F 04/17/18 12:00 Pulse 79 04/17/18 15:00 Resp 24 04/17/18 15:00 BP 123/75 04/17/18 15:00 Pulse Ox 99 04/17/18 15:00 Intake & Output 04/16/18 04/17/18 04/17/18 18:59 06:59 18:59 Intake Total 635 180 240 Output Total 0 2100 0 Balance 635 -1920 240 Weight 51.2 kg Intake: Oral 635 180 240 Output: Urine 0 0 0 Other 2100 Other: Other Amount Description dialysis O2/Vent: NC 2-3L Infusions: heplock Current Medications: Acetaminophen (Tylenol Tab*) 650 mg PO Q4H PRN PRN Reason: PAIN Hydrocodone Bitart/Acetaminophen ([place] 5-325 Tab*) 1 tab PO Q6H PRN PRN Reason: PAIN Last Admin: 04/16/18 22:57 Dose: 1 tab Albuterol (Ventolin 2.5 Mg/3 Ml Neb.Francy*) 2.5 mg INH Q4H PRN PRN Reason: SOB/WHEEZING Last Admin: 04/15/18 01:55 Dose: 2.5 mg Aliskiren (Tekturna Tab*) 300 mg PO QAM [facility] Last Admin: 04/17/18 08:46 Dose: 300 mg Amlodipine Besylate (Norvasc Tab*) 10 mg PO QAM [facility] Last Admin: 04/17/18 11:37 Dose: Not Given Aspirin (Aspirin 81 Mg Chew Tab*) 81 mg PO DAILY [facility] Last Admin: 04/17/18 08:45 Dose: 81 mg Atorvastatin Calcium (Lipitor*) 20 mg PO BEDTIME [facility] Last Admin: 04/16/18 20:40 Dose: 20 mg Atropine Sulfate (Atropine Syringe*) 0.5 mg IV PUSH Q5M PRN PRN Reason: bradycardia <40 Calcitriol (Rocaltrol Cap*) 0.25 mcg PO QAM [facility] Last Admin: 04/17/18 11:25 Dose: 0.25 mcg Ciprofloxacin/Dexamethasone (Ciprodex Otic.Susp*) 1 drop BOTH EARS BID [facility] Last Admin: 04/17/18 08:47 Dose: 1 drop Clopidogrel Bisulfate (Plavix Tab*) 75 mg PO DAILY [facility] Last Admin: 04/17/18 08:45 Dose: 75 mg Doxazosin Mesylate (Cardura Tab*) 4 mg PO DAILY [facility] Last Admin: 04/17/18 13:15 Dose: 4 mg Famotidine (Pepcid Tab*) 20 mg PO DAILY [facility] Last Admin: 04/17/18 08:44 Dose: 20 mg Haloperidol Lactate (Haldol Inj Iv/Im*) 5 mg IV SLOW PU Q6H PRN PRN Reason: delirium, restlessness Last Admin: 04/15/18 16:29 Dose: 5 mg Hydralazine HCl (Apresoline Tab*) 100 mg PO TID [facility] Last Admin: 04/17/18 11:36 Dose: Not Given Hydralazine HCl (Apresoline Iv*) 5 mg IV SLOW PU Q4H PRN PRN Reason: SYSTOLIC BP GREATER THAN: Isosorbide Mononitrate (Imdur Er Tab*) 60 mg PO BEDTIME [facility] Lorazepam (Ativan Inj*) 1 mg IV PUSH Q4H PRN PRN Reason: seizure Methadone HCl (Dolophine Tab*) 5 mg PO Q12H PRN PRN Reason: PAIN - MODERATE Ondansetron HCl (Zofran Tab*) 4 mg PO Q8H PRN PRN Reason: NAUSEA Prednisone (Deltasone Tab*) 20 mg PO DAILY [facility] Sertraline HCl (Zoloft*) 50 mg PO DAILY [facility] Last Admin: 04/17/18 08:45 Dose: 50 mg Physical Exam: General: awake, alert, no distress Head: normocephalic, atraumatic HEENT: no pallor, no icterus, moist mucous membranes Neck: soft, supple, no jvd, no stridor CVS: normal rate, regular, no murmur Resp: bilateral air entry, no rhales, no wheeze, no rhonchi, no acc muscle use; Right chest permacath Abdomen: soft, nontender, nondistended, bowel sounds present Ext: pulses+, warm, no edema Skin: DRY Neuro: awake/alert, oriented x3, no distress, moves all ext Labs: Laboratory Results - last 24 hr 04/17/18 04/17/18 05:15 05:15 WBC 7.6 RBC 4.19 Hgb 11.6 L Hct 36 MCV 87 MCH 28 MCHC 32 RDW 17 H Plt Count 151 MPV 7.0 L Sodium 133 L Potassium 4.0 Chloride 100 L Carbon Dioxide 28 Anion Gap 5 BUN 16 Creatinine 2.40 H Est GFR ( Amer) 25.2 Est GFR (Non-Af Amer) 20.8 BUN/Creatinine Ratio 6.7 L Glucose 101 H Calcium 9.0 Random Vancomycin 9.6 Imaging: cxr 04/13 - bilateral pulm congestion; left pleural effusion+ CT brain 04/14 - chronic changes; chronic encephalomalacia right occ and left BG EEG 04/14 - abnormal, likely metabolic dysfunction; no acute seizure activity mentioned Assessment: 57y F pmhx of ESRD on HD, CAD s/p PCI, Diastolic Dysfunction, HTN, anxiety and depression, COPD on home O2, GERD, HTN, HLD; [place] [facility] [place] for acute on chronic hypercapneic respiratory failure, requiring NIV. She subsequently improved in the ICU. Suspicion of possible BDZ causing the respiratoyr failure and hypercapnea were entertained, so Lorazepam/ Bdz were discontinued on discharge. She comes [place] [facility] [place] for sudden increasing respiratoyr distress since last night. She missed HD sessions but had 1 day prior to admission. In ER, imaging demonstrated pulm congestion. Bradycardia 20-30s, s/p atropine given with improvement. Sudden GTC Seizure, self-limited in ER, with worsened resp status and encephalopathy, remains DNR and DNI with possible change based on status again. Hypertensive 220s post seizure -Seizure -Acute on chronic hypercapneic and hypoxic respiratory failure -Encephalopathy, multifactorial -Hypertensive Urgency -Pulmonary Congestion -acute on chronic decompensated LV diastolic CHF -Bradycardia -ESRD on HD CAD COPD Plan: Neuro- alert/awake. EEG negative. delirium prec, asp prec. methadone 5mg bid prn ; but has not asked for it, no pain either. asp prec. asa/plavix. zoloft for depression. CVS- Hypertensive; cont tekturna/hydralazine 100mg tid/norvasc 10. d/c imdur. started doxazosin 4mg po daily, seems to have worked better. -limiting CCB/BB 2/2 to bradycardia. Resp- on NC 3L, baseline 2L; stable. taper prednisone. bronchodilators PRN ID- afebrile, wbc normal. no clear source of infection, nontoxic. s/p 3 days cefepime. monitor off abx. culture negative. GI- honey thick/mechanical soft, renal diet. asp prec. GERD, h2b ipo daily. Renal- ESRD on HD; HD as per gauri. Increase antihypertensives as above. will consider adding clonidine as another option Heme- hg stable. plt stable. asa/plavix. DVT proph with SCDs Endo- - Musculsk- pressure ulcer prophylaxis. oob to chair Wounds- none Nutrition- renal diet, honey thick/soft DVT prophylaxis: SCDs GI prophylaxis: h2b Central Line: no Arterial Line: no Vides Cathetor: no Disposition: BP improved; needs further adjustment. alert. can be transferred to medical floor. Code Status: DNR, trial of intubation as per patient/son Rajan Patton MD Head Filter Tank Tender Helper (Electronically Signed)
[2018-04-17] MEDS ORDERED: Isosorbide Mononitrate ER TAB* 60 MG PO SCH (21:00)
[2018-04-17] MEDS: Atorvastatin* 20 MG TAB PO SCH (21:13)
[2018-04-18 05:58] LABS: Hematocrit 37 % (35-47); Hemoglobin 11.8 g/dl (12.0-16.0); Mean Corpuscular HGB Conc 32 g/dl (31-36); Mean Corpuscular Hemoglobin 28 pg (27-31); Mean Corpuscular Volume 87 fL (80-97); Mean Platelet Volume 7.2 fL (7.4-10.4); Platelet Count 134 10^3/ul (150-450); Red Blood Count 4.26 10^6/ul (4.00-5.40); Red Cell Distribution Width 17 % (10.5-15); White Blood Count 6.8 10^3/ul (3.5-10.8)
[2018-04-18 06:20] LABS: BUN/Creatinine Ratio 7.9 (8-20); Calcium 9.1 mg/dL (8.6-10.3); EGFR African American 16.7 (>60); EGFR Non-African American 13.8 (>60); Potassium 4.4 mmol/L (3.5-5.0)
[2018-04-18 06:25] LABS: Vancomycin Random 9.4 mcg/mL
[2018-04-18] MEDS: Calcitriol CAP* 0.25 MCG PO SCH (08:09)
[2018-04-18] MEDS: Doxazosin TAB* 2 MG PO SCH (08:09)
[2018-04-18] MEDS: predniSONE TAB* 20 MG PO SCH (08:09)
[2018-04-18] MEDS: Aliskiren TAB* 300 MG PO SCH (08:09)
[2018-04-18] MEDS: Famotidine TAB* 20 MG PO SCH (08:10)
[2018-04-18] MEDS: Aspirin 81 mg CHEW TAB* 81 MG TAB.CHEW PO SCH (08:10)
[2018-04-18] MEDS: Sertraline* 50 MG TAB PO SCH (08:10)
[2018-04-18] MEDS: hydrALAZINE TAB* 100 MG ** ONE HUNDRED PO SCH ×3 (08:10→21:13)
[2018-04-18] MEDS: amLODIPine TAB* 5 MG PO SCH (08:10)
[2018-04-18] MEDS: Clopidogrel TAB* 75 MG PO SCH (08:10)
[2018-04-18] MEDS: Ciproflox/Dexameth OTIC.SUSP* 7.5 ML BTL BOTH EARS SCH ×2 (08:10→21:13)
[2018-04-18] MEDS ORDERED: Etanercept SYR (NF) 50 MG/ML 0.98 ML SUBCUT SCH (09:00)
[2018-04-18] MEDS: Acetaminophen TAB* 325 MG PO PRN (14:22)
--- NOTE | 2018-04-18 17:58 | PN ---
Subjective Date of Service: 04/18/18 Interval History: Pt seen and examined. Meds and labs reviewed. CC: N/A ROS: Denied PATTEN/dizziness, F/C, N/V, CP, SOB, increased cough, sputum production , abd pain, diarrhea, constipation, dysuria, myalgias, arthralgias, throat pain , and new skin lesions. The rest of the 14 point ROS are unremarkable. PHYSICAL EXAM: GEN APPEARANCE: Awake, not in acute distress HEENT: NC/AT, PERRLA, moist oral mucosa, (-) throat erythema NECK: Soft, supple, (-) cervical LAD, (-)JVD HEART: S1S2 WNL, RRR, No MRG CHEST: CTA, BL, GAE, No W/R/R ABD: Soft, ND/NT, NABS 4x Q EXT: No C/C/E SKIN: Warm to touch PSYCH: No active psychosis, hallucinations, depression, SI/HI Objective Active Medications: Acetaminophen (Tylenol Tab*) 650 mg PO Q4H PRN PRN Reason: PAIN Last Admin: 04/18/18 14:22 Dose: 650 mg Hydrocodone Bitart/Acetaminophen ([place] 5-325 Tab*) 1 tab PO Q6H PRN PRN Reason: PAIN Last Admin: 04/16/18 22:57 Dose: 1 tab Albuterol (Ventolin 2.5 Mg/3 Ml Neb.Francy*) 2.5 mg INH Q4H PRN PRN Reason: SOB/WHEEZING Last Admin: 04/15/18 01:55 Dose: 2.5 mg Aliskiren (Tekturna Tab*) 300 mg PO QAM [facility] Last Admin: 04/18/18 08:09 Dose: 300 mg Amlodipine Besylate (Norvasc Tab*) 10 mg PO QAM [facility] Last Admin: 04/18/18 08:10 Dose: 10 mg Aspirin (Aspirin 81 Mg Chew Tab*) 81 mg PO DAILY [facility] Last Admin: 04/18/18 08:10 Dose: 81 mg Atorvastatin Calcium (Lipitor*) 20 mg PO BEDTIME [facility] Last Admin: 04/17/18 21:13 Dose: 20 mg Atropine Sulfate (Atropine Syringe*) 0.5 mg IV PUSH Q5M PRN PRN Reason: bradycardia <40 Calcitriol (Rocaltrol Cap*) 0.25 mcg PO QAM [facility] Last Admin: 04/18/18 08:09 Dose: 0.25 mcg Ciprofloxacin/Dexamethasone (Ciprodex Otic.Susp*) 1 drop BOTH EARS BID [facility] Last Admin: 04/18/18 08:10 Dose: 1 drop Clopidogrel Bisulfate (Plavix Tab*) 75 mg PO DAILY [facility] Last Admin: 04/18/18 08:10 Dose: 75 mg Doxazosin Mesylate (Cardura Tab*) 4 mg PO DAILY [facility] Last Admin: 04/18/18 08:09 Dose: 4 mg Famotidine (Pepcid Tab*) 20 mg PO DAILY [facility] Last Admin: 04/18/18 08:10 Dose: 20 mg Haloperidol Lactate (Haldol Inj Iv/Im*) 5 mg IV SLOW PU Q6H PRN PRN Reason: delirium, restlessness Last Admin: 04/15/18 16:29 Dose: 5 mg Heparin Sodium (Porcine) (Heparin Dialysis Only(*)) 5,000 units DIALYSIS ONCE ONE Stop: 04/18/18 18:01 Hydralazine HCl (Apresoline Tab*) 100 mg PO TID [facility] Last Admin: 04/18/18 14:22 Dose: 100 mg Hydralazine HCl (Apresoline Iv*) 5 mg IV SLOW PU Q4H PRN PRN Reason: SYSTOLIC BP GREATER THAN: Lorazepam (Ativan Inj*) 1 mg IV PUSH Q4H PRN PRN Reason: seizure Methadone HCl (Dolophine Tab*) 5 mg PO Q12H PRN PRN Reason: PAIN - MODERATE Last Admin: 04/17/18 22:10 Dose: 5 mg Ondansetron HCl (Zofran Tab*) 4 mg PO Q8H PRN PRN Reason: NAUSEA Prednisone (Deltasone Tab*) 20 mg PO DAILY [facility] Last Admin: 04/18/18 08:09 Dose: 20 mg Sertraline HCl (Zoloft*) 50 mg PO DAILY [facility] Last Admin: 04/18/18 08:10 Dose: 50 mg Vital Signs - 8 hr 04/18/18 04/18/18 11:16 15:33 Temperature 97.6 F 97.8 F Pulse Rate 81 94 Respiratory 16 20 Rate Blood Pressure 126/63 140/63 (mmHg) O2 Sat by Pulse 98 100 Oximetry Oxygen Devices in Use Now: Nasal Cannula - Nutrition: Malnutrition Diagnosis/Plan Malnutrition Assessment by Registered Dietitian: Malnutrition Assessment Clinical Characteristics Chronic,Severe Malnutrition Assessment: - severe temporal and clavicle muscle wasting Criteria - severe buccal fat pad wasting * note BMI <18.5 Malnutrition Assessment: 1. thickened liquids offered since 04/14. Interventions Suggest swallow eval per MEDICAL ART THERAPIST. 2. renal diet; soft textures. Maintain liberal restrictions as renal parameters allow. 3. mid-afternoon snack as desired PB&J sandwich (no crust) + chocolate milk (~500 kcals, 18 g prot) 4. daily additions to breakfast tray hard boiled egg and peanut butter x2 (325 kcals , 12 g prot) 5. NO liquid supplements per pt preference Malnutrition Assessment: Goals 1. Pt will tolerate PO without difficulty chewing/swallowing 2. Intake will support stable dry wt and preserve lean body mass without unintended loss of dry wt 3. Renal labs will be maintained within acceptable limits given hx ESRD, HD Result Diagrams: 04/18/18 05:33 04/18/18 05:33 Microbiology and Other Data: Microbiology 04/13/18 18:40 Aerobic Blood Culture - Preliminary Blood Venous No Growth Day 4 Anaerobic Blood Culture - Preliminary No Growth Day 4 04/13/18 18:20 Aerobic Blood Culture - Preliminary Blood Line No Growth Day 4 Anaerobic Blood Culture - Preliminary No Growth Day 4 04/14/18 01:27 Nasal Screen MRSA (PCR) - Final Nasal Mrsa Not Detected Assess/Plan/Problems-Billing Assessment: - Patient Problems (1) Respiratory failure Current Visit: No Status: Acute Code(s): J96.90 - RESPIRATORY FAILURE, UNSP , UNSP W HYPOXIA OR HYPERCAPNIA SNOMED Code(s): 691096112 Comment: -Improved; currently on 2L NC O2 at rest; at home she is on O2 only at night and on ambulation/exertion -Hypercapnic respiratory failue possibly due to oversedation and COPD exacerbation and pulmonary congestion due to CHF likely due to missing dialysis -Continue Prednisone -Encouraged not to miss dialysis appointments (2) HTN (hypertension) Current Visit: No Status: Chronic Code(s): I10 - ESSENTIAL (PRIMARY) HYPERTENSION SNOMED Code(s): 04456079 Comment: -Well-controlled -Continue Amlodipine, Aliskiren, and Doxazosin (3) Depression Current Visit: Yes Status: Acute Code(s): F32.9 - MAJOR DEPRESSIVE DISORDER , SINGLE EPISODE, UNSPECIFIED SNOMED Code(s): 33518755 Comment: -Stable -Continue Zoloft (4) CAD (coronary artery disease) Current Visit: No Status: Acute Code(s): I25.10 - ATHSCL HEART DISEASE OF [place] CORONARY ARTERY W/O ANG PCTRS SNOMED Code(s): 44072232 Comment: -Continue ASA, Plavix, and statins -Unclear why pt not placed on Metoprolol and instead placed on Doxazosin -Will continue to observe and consider transitioning back to beta blockers if tolerated (5) DVT prophylaxis Current Visit: No Status: Acute Priority: High Onset Date: 09/08/14 Code (s): [id number] - SNOMED Code(s): 660613723 Comment: -Continue SCDs Status and Disposition: -Continue PT -For possible D/C in 2-3 days
[2018-04-18] MEDS ORDERED: Heparin DIALYSIS ONLY(*) 1,000 UNITS/ML VIAL DIALYSIS ONE (18:00)
[2018-04-18] MEDS: Atorvastatin* 20 MG TAB PO SCH (21:13)
[2018-04-18] MEDS: HYDROcodone/ACETAMIN 5-325 MG* 1 TAB PO PRN (21:13)
[2018-04-19] MEDS ORDERED: diPHENhydraMINE PO* 25 MG PO ONE (02:30)
[2018-04-19 05:25] LABS: ABS Basophils 0 10^3/ul (0-0.2); ABS Eosinophils 0 10^3/ul (0-0.6); ABS Lymphocytes 1.1 10^3/ul (1.0-4.8); ABS Monocytes 0.5 10^3/ul (0-0.8); ABS Neutrophils 4.1 10^3/ul (1.5-7.7); ABS Nucleated RBC 0 10^3/ul; Eosinophil % 0.7 % (0-6); Hematocrit 37 % (35-47); Lymphocyte % 19.8 % (25-47); Mean Corpuscular HGB Conc 32 g/dl (31-36); Mean Corpuscular Hemoglobin 28 pg (27-31); Mean Corpuscular Volume 86 fL (80-97); Nucleated Red Blood Cells % 0.1; Platelet Count 125 10^3/ul (150-450); Red Blood Count 4.32 10^6/ul (4.00-5.40); Red Cell Distribution Width 18 % (10.5-15); White Blood Count 5.8 10^3/ul (3.5-10.8)
[2018-04-19 05:40] LABS: Albumin 3.6 g/dL (3.2-5.2); Albumin/Globulin Ratio 1.8 (1-3); Calcium 8.9 mg/dL (8.6-10.3); EGFR African American 24.9 (>60); EGFR Non-African American 20.6 (>60); Phosphorus 3.2 mg/dL (2.5-5.0); Potassium 4.1 mmol/L (3.5-5.0); Total Bilirubin 0.5 mg/dL (0.2-1.0); Total Protein 5.6 g/dL (6.4-8.9)
[2018-04-19 05:46] LABS: Vancomycin Random 7.8 mcg/mL
[2018-04-19] MEDS: HYDROcodone/ACETAMIN 5-325 MG* 1 TAB PO PRN ×3 (08:28→22:29)
[2018-04-19] MEDS: Sertraline* 50 MG TAB PO SCH (08:29)
[2018-04-19] MEDS: Aspirin 81 mg CHEW TAB* 81 MG TAB.CHEW PO SCH (08:29)
[2018-04-19] MEDS: predniSONE TAB* 20 MG PO SCH (08:29)
[2018-04-19] MEDS: Calcitriol CAP* 0.25 MCG PO SCH (08:29)
[2018-04-19] MEDS: hydrALAZINE TAB* 100 MG ** ONE HUNDRED PO SCH ×3 (08:29→21:01)
[2018-04-19] MEDS: amLODIPine TAB* 5 MG PO SCH (08:29)
[2018-04-19] MEDS: Aliskiren TAB* 300 MG PO SCH (08:30)
[2018-04-19] MEDS: Doxazosin TAB* 2 MG PO SCH (08:30)
[2018-04-19] MEDS: Famotidine TAB* 20 MG PO SCH (08:30)
[2018-04-19] MEDS: Clopidogrel TAB* 75 MG PO SCH (08:30)
[2018-04-19] MEDS: Ciproflox/Dexameth OTIC.SUSP* 7.5 ML BTL BOTH EARS SCH ×2 (08:35→21:01)
[2018-04-19] MEDS: Carvedilol TAB* 25 MG PO SCH ×2 (10:45→21:01)
--- NOTE | 2018-04-19 15:23 | PN ---
Subjective Date of Service: 04/19/18 Interval History: Pt seen and examined. Meds and labs reviewed. CC: N/A ROS: Denied PATTEN/dizziness, F/C, N/V, CP, SOB, increased cough, sputum production , abd pain, diarrhea, constipation, dysuria, myalgias, arthralgias, throat pain , and new skin lesions. The rest of the 14 point ROS are unremarkable. PHYSICAL EXAM: GEN APPEARANCE: Awake, not in acute distress HEENT: NC/AT, PERRLA, moist oral mucosa, (-) throat erythema NECK: Soft, supple, (-) cervical LAD, (-)JVD HEART: S1S2 WNL, RRR, No MRG CHEST: CTA, BL, GAE, No W/R/R ABD: Soft, ND/NT, NABS 4x Q EXT: No C/C/E SKIN: Warm to touch PSYCH: No active psychosis, hallucinations, depression, SI/HI Objective Active Medications: Acetaminophen (Tylenol Tab*) 650 mg PO Q4H PRN PRN Reason: PAIN Last Admin: 04/18/18 14:22 Dose: 650 mg Hydrocodone Bitart/Acetaminophen (Corry 5-325 Tab*) 1 tab PO Q6H PRN PRN Reason: PAIN Last Admin: 04/19/18 08:28 Dose: 1 tab Albuterol (Ventolin 2.5 Mg/3 Ml Neb.Francy*) 2.5 mg INH Q4H PRN PRN Reason: SOB/WHEEZING Last Admin: 04/15/18 01:55 Dose: 2.5 mg Aliskiren (Tekturna Tab*) 300 mg PO QAM [facility] Last Admin: 04/19/18 08:30 Dose: 300 mg Amlodipine Besylate (Norvasc Tab*) 10 mg PO QAM [facility] Last Admin: 04/19/18 08:29 Dose: 10 mg Aspirin (Aspirin 81 Mg Chew Tab*) 81 mg PO DAILY [facility] Last Admin: 04/19/18 08:29 Dose: 81 mg Atorvastatin Calcium (Lipitor*) 20 mg PO BEDTIME [facility] Last Admin: 04/18/18 21:13 Dose: 20 mg Atropine Sulfate (Atropine Syringe*) 0.5 mg IV PUSH Q5M PRN PRN Reason: bradycardia <40 Calcitriol (Rocaltrol Cap*) 0.25 mcg PO QAM [facility] Last Admin: 04/19/18 08:29 Dose: 0.25 mcg Carvedilol (Coreg Tab*) 50 mg PO BID [facility] Last Admin: 04/19/18 10:45 Dose: 50 mg Ciprofloxacin/Dexamethasone (Ciprodex Otic.Susp*) 1 drop BOTH EARS BID [facility] Last Admin: 04/19/18 08:35 Dose: 1 drop Clopidogrel Bisulfate (Plavix Tab*) 75 mg PO DAILY [facility] Last Admin: 04/19/18 08:30 Dose: 75 mg Doxazosin Mesylate (Cardura Tab*) 4 mg PO DAILY [facility] Last Admin: 04/19/18 08:30 Dose: 4 mg Famotidine (Pepcid Tab*) 20 mg PO DAILY [facility] Last Admin: 04/19/18 08:30 Dose: 20 mg Haloperidol Lactate (Haldol Inj Iv/Im*) 5 mg IV SLOW PU Q6H PRN PRN Reason: delirium, restlessness Last Admin: 04/15/18 16:29 Dose: 5 mg Hydralazine HCl (Apresoline Tab*) 100 mg PO TID [facility] Last Admin: 04/19/18 14:06 Dose: 100 mg Hydralazine HCl (Apresoline Iv*) 5 mg IV SLOW PU Q4H PRN PRN Reason: SYSTOLIC BP GREATER THAN: Last Admin: 04/19/18 04:50 Dose: 5 mg Lorazepam (Ativan Inj*) 1 mg IV PUSH Q4H PRN PRN Reason: seizure Methadone HCl (Dolophine Tab*) 5 mg PO Q12H PRN PRN Reason: PAIN - MODERATE Last Admin: 04/17/18 22:10 Dose: 5 mg Ondansetron HCl (Zofran Tab*) 4 mg PO Q8H PRN PRN Reason: NAUSEA Prednisone (Deltasone Tab*) 20 mg PO DAILY [facility] Last Admin: 04/19/18 08:29 Dose: 20 mg Sertraline HCl (Zoloft*) 50 mg PO DAILY [facility] Last Admin: 04/19/18 08:29 Dose: 50 mg Vital Signs - 8 hr 04/19/18 04/19/18 04/19/18 07:37 08:28 09:16 Temperature 98.2 F Pulse Rate 92 Respiratory 16 20 20 Rate Blood Pressure 191/92 (mmHg) O2 Sat by Pulse 100 Oximetry 04/19/18 04/19/18 04/19/18 10:22 10:45 13:38 Temperature Pulse Rate 95 71 Respiratory 20 Rate Blood Pressure 139/76 110/55 (mmHg) O2 Sat by Pulse Oximetry Oxygen Devices in Use Now: Nasal Cannula - Nutrition: Malnutrition Diagnosis/Plan Malnutrition Assessment by Registered Dietitian: Malnutrition Assessment Clinical Characteristics Chronic,Severe Malnutrition Assessment: - severe temporal and clavicle muscle wasting Criteria - severe buccal fat pad wasting * note BMI <18.5 Malnutrition Assessment: 1. thickened liquids offered since 04/14. Interventions Suggest swallow eval per [employer]. 2. renal diet; soft textures. Maintain liberal restrictions as renal parameters allow. 3. mid-afternoon snack as desired PB&J sandwich (no crust) + chocolate milk (~500 kcals, 18 g prot) 4. daily additions to breakfast tray hard boiled egg and peanut butter x2 (325 kcals , 12 g prot) 5. NO liquid supplements per pt preference Malnutrition Assessment: Goals 1. Pt will tolerate PO without difficulty chewing/swallowing 2. Intake will support stable dry wt and preserve lean body mass without unintended loss of dry wt 3. Renal labs will be maintained within acceptable limits given hx ESRD, HD Result Diagrams: 04/19/18 05:08 04/19/18 05:08 Microbiology and Other Data: Microbiology 04/13/18 18:40 Aerobic Blood Culture - Preliminary Blood Venous No Growth Day 4 Anaerobic Blood Culture - Preliminary No Growth Day 4 04/13/18 18:20 Aerobic Blood Culture - Preliminary Blood Line No Growth Day 4 Anaerobic Blood Culture - Preliminary No Growth Day 4 04/14/18 01:27 Nasal Screen MRSA (PCR) - Final Nasal Mrsa Not Detected Assess/Plan/Problems-Billing Assessment: - Patient Problems (1) Respiratory failure Current Visit: No Status: Acute Code(s): J96.90 - RESPIRATORY FAILURE, UNSP , UNSP W HYPOXIA OR HYPERCAPNIA SNOMED Code(s): 869491956 Comment: -Improved; currently on 2L NC O2 at rest; at home she is on O2 only at night and on ambulation/exertion -Hypercapnic respiratory failue possibly due to oversedation and COPD exacerbation and pulmonary congestion due to CHF likely due to missing dialysis -Continue Prednisone -Encouraged not to miss dialysis appointments (2) HTN (hypertension) Current Visit: No Status: Chronic Code(s): I10 - ESSENTIAL (PRIMARY) HYPERTENSION SNOMED Code(s): 50735456 Comment: -Un-controlled -Continue Amlodipine, Aliskiren, and Doxazosin -Will place pt back on home Carvedilol -Will continue watchful waiting (3) Depression Current Visit: Yes Status: Acute Code(s): F32.9 - MAJOR DEPRESSIVE DISORDER , SINGLE EPISODE, UNSPECIFIED SNOMED Code(s): 25412193 Comment: -Stable -Continue Zoloft (4) CAD (coronary artery disease) Current Visit: No Status: Acute Code(s): I25.10 - ATHSCL HEART DISEASE OF [place] CORONARY ARTERY W/O ANG PCTRS SNOMED Code(s): 65866189 Comment: -Continue ASA, Plavix, and statins -Will be placed back on Carvedilol today as described above (5) DVT prophylaxis Current Visit: No Status: Acute Priority: High Onset Date: 09/08/14 Code (s): BTR1423 - SNOMED Code(s): 262264668 Comment: -Continue SCDs Status and Disposition: -Continue PT -For possible D/C in 2-3 days
[2018-04-19] MEDS: Acetaminophen TAB* 325 MG PO PRN (19:49)
[2018-04-19] MEDS: Atorvastatin* 20 MG TAB PO SCH (21:01)
[2018-04-20 05:18] LABS: ABS Basophils 0 10^3/ul (0-0.2); ABS Eosinophils 0 10^3/ul (0-0.6); ABS Lymphocytes 1.1 10^3/ul (1.0-4.8); ABS Monocytes 0.6 10^3/ul (0-0.8); ABS Neutrophils 4.7 10^3/ul (1.5-7.7); ABS Nucleated RBC 0 10^3/ul; Eosinophil % 0.4 % (0-6); Hematocrit 35 % (35-47); Hemoglobin 11.1 g/dl (12.0-16.0); Lymphocyte % 16.8 % (25-47); Mean Corpuscular HGB Conc 32 g/dl (31-36); Mean Corpuscular Hemoglobin 28 pg (27-31); Mean Corpuscular Volume 87 fL (80-97); Mean Platelet Volume 7.5 fL (7.4-10.4); Nucleated Red Blood Cells % 0; Platelet Count 127 10^3/ul (150-450); Red Blood Count 4.01 10^6/ul (4.00-5.40); Red Cell Distribution Width 18 % (10.5-15); White Blood Count 6.4 10^3/ul (3.5-10.8)
[2018-04-20 05:54] LABS: Vancomycin Random 7.9 mcg/mL
[2018-04-20 06:18] LABS: Albumin 3.6 g/dL (3.2-5.2); Calcium 8.9 mg/dL (8.6-10.3); Magnesium 2.1 mg/dL (1.9-2.7); Potassium 4.5 mmol/L (3.5-5.0); Total Bilirubin 0.4 mg/dL (0.2-1.0)
[2018-04-20 06:24] LABS: Albumin/Globulin Ratio 1.9 (1-3); BUN/Creatinine Ratio 9.3 (8-20); EGFR African American 15.4 (>60); EGFR Non-African American 12.7 (>60); Globulin 1.9 g/dL (2-4); Total Protein 5.5 g/dL (6.4-8.9)
[2018-04-20] MEDS: Calcitriol CAP* 0.25 MCG PO SCH ×2 (08:27→11:52)
[2018-04-20] MEDS: Aspirin 81 mg CHEW TAB* 81 MG TAB.CHEW PO SCH (08:27)
[2018-04-20] MEDS: Sertraline* 50 MG TAB PO SCH ×2 (08:27→11:52)
[2018-04-20] MEDS: amLODIPine TAB* 5 MG PO SCH (08:28)
[2018-04-20] MEDS: Aliskiren TAB* 300 MG PO SCH (08:28)
[2018-04-20] MEDS: Famotidine TAB* 20 MG PO SCH ×2 (08:28→11:52)
[2018-04-20] MEDS: Clopidogrel TAB* 75 MG PO SCH (08:28)
[2018-04-20] MEDS: Carvedilol TAB* 25 MG PO SCH ×3 (08:28→22:18)
[2018-04-20] MEDS: hydrALAZINE TAB* 100 MG ** ONE HUNDRED PO SCH ×3 (08:28→22:18)
[2018-04-20] MEDS: Doxazosin TAB* 2 MG PO SCH ×2 (08:28→11:52)
[2018-04-20] MEDS: predniSONE TAB* 20 MG PO SCH ×2 (08:28→11:52)
[2018-04-20] MEDS ORDERED: Heparin VIAL(*) 5000 UNITS/ML VIAL (FIVE THOUSAND) SUBCUT SCH (09:00)
[2018-04-20] MEDS: Ciproflox/Dexameth OTIC.SUSP* 7.5 ML BTL BOTH EARS SCH (11:52)
--- NOTE | 2018-04-20 15:56 | PN ---
Subjective Date of Service: 04/20/18 Interval History: Pt seen and examined. Meds and labs reviewed. Pt appeared lethargic in my AM visit and per RN did not sleep well last night as pt herself confirms. CT of head ordered, non-contrast and q4h neurochecks. Per RN, later on in the afternoon, pt became more awake and no longer lethargic. CC: Insomnia ROS: Could not be reliably obtained given pt wants to go back to sleep. PHYSICAL EXAM: GEN APPEARANCE: Pt appeared lethargic, but arousable on my visit and when woken up, responds appropriately, not in acute distress HEENT: NC/AT, PERRLA, moist oral mucosa, (-) throat erythema NECK: Soft, supple, (-) cervical LAD, (-)JVD HEART: S1S2 WNL, RRR, No MRG CHEST: CTA, BL, GAE, No W/R/R ABD: Soft, ND/NT, NABS 4x Q EXT: No C/C/E SKIN: Warm to touch PSYCH: No active psychosis, hallucinations, depression, SI/HI Objective Active Medications: Acetaminophen (Tylenol Tab*) 650 mg PO Q4H PRN PRN Reason: PAIN Last Admin: 04/19/18 19:49 Dose: 650 mg Albuterol (Ventolin 2.5 Mg/3 Ml Neb.Francy*) 2.5 mg INH Q4H PRN PRN Reason: SOB/WHEEZING Last Admin: 04/15/18 01:55 Dose: 2.5 mg Aliskiren (Tekturna Tab*) 300 mg PO QAM [facility] Last Admin: 04/20/18 08:28 Dose: 300 mg Amlodipine Besylate (Norvasc Tab*) 10 mg PO QAM [facility] Last Admin: 04/20/18 08:28 Dose: 10 mg Aspirin (Aspirin 81 Mg Chew Tab*) 81 mg PO DAILY [facility] Last Admin: 04/20/18 08:27 Dose: 81 mg Atorvastatin Calcium (Lipitor*) 20 mg PO BEDTIME [facility] Last Admin: 04/19/18 21:01 Dose: 20 mg Atropine Sulfate (Atropine Syringe*) 0.5 mg IV PUSH Q5M PRN PRN Reason: bradycardia <40 Calcitriol (Rocaltrol Cap*) 0.25 mcg PO QAM [facility] Last Admin: 04/20/18 11:52 Dose: Not Given Carvedilol (Coreg Tab*) 25 mg PO BID [facility] Ciprofloxacin/Dexamethasone (Ciprodex Otic.Susp*) 1 drop BOTH EARS BID [facility] Last Admin: 04/20/18 11:52 Dose: Not Given Clopidogrel Bisulfate (Plavix Tab*) 75 mg PO DAILY [facility] Last Admin: 04/20/18 08:28 Dose: 75 mg Doxazosin Mesylate (Cardura Tab*) 4 mg PO DAILY [facility] Last Admin: 04/20/18 11:52 Dose: Not Given Famotidine (Pepcid Tab*) 20 mg PO DAILY [facility] Last Admin: 04/20/18 11:52 Dose: Not Given Haloperidol Lactate (Haldol Inj Iv/Im*) 5 mg IV SLOW PU Q6H PRN PRN Reason: delirium, restlessness Last Admin: 04/15/18 16:29 Dose: 5 mg Hydralazine HCl (Apresoline Tab*) 100 mg PO TID [facility] Last Admin: 04/20/18 13:48 Dose: 100 mg Hydralazine HCl (Apresoline Iv*) 5 mg IV SLOW PU Q4H PRN PRN Reason: SYSTOLIC BP GREATER THAN: Last Admin: 04/19/18 04:50 Dose: 5 mg Methadone HCl (Dolophine Tab*) 5 mg PO Q12H PRN PRN Reason: PAIN - MODERATE Last Admin: 04/17/18 22:10 Dose: 5 mg Ondansetron HCl (Zofran Tab*) 4 mg PO Q8H PRN PRN Reason: NAUSEA Prednisone (Deltasone Tab*) 20 mg PO DAILY [facility] Last Admin: 04/20/18 11:52 Dose: Not Given Sertraline HCl (Zoloft*) 50 mg PO DAILY [facility] Last Admin: 04/20/18 11:52 Dose: Not Given Trazodone HCl (Desyrel Tab*) 25 mg PO BEDTIME [facility] Vital Signs - 8 hr 04/20/18 04/20/18 04/20/18 08:06 09:56 11:48 Temperature 98.8 F Pulse Rate 64 80 78 Respiratory 20 20 20 Rate Blood Pressure 149/69 147/68 134/62 (mmHg) O2 Sat by Pulse 100 100 100 Oximetry Oxygen Devices in Use Now: Nasal Cannula - Nutrition: Malnutrition Diagnosis/Plan Malnutrition Assessment by Registered Dietitian: Malnutrition Assessment Clinical Characteristics Chronic,Severe Malnutrition Assessment: - severe temporal and clavicle muscle wasting Criteria - severe buccal fat pad wasting * note BMI <18.5 Malnutrition Assessment: 1. thickened liquids offered since 04/14. Interventions Suggest swallow eval per [employer]. 2. renal diet; soft textures. Maintain liberal restrictions as renal parameters allow. 3. mid-afternoon snack as desired PB&J sandwich (no crust) + chocolate milk (~500 kcals, 18 g prot) 4. daily additions to breakfast tray hard boiled egg and peanut butter x2 (325 kcals , 12 g prot) 5. NO liquid supplements per pt preference Malnutrition Assessment: Goals 1. Pt will tolerate PO without difficulty chewing/swallowing 2. Intake will support stable dry wt and preserve lean body mass without unintended loss of dry wt 3. Renal labs will be maintained within acceptable limits given hx ESRD, HD Result Diagrams: 04/20/18 04:50 04/20/18 04:50 Microbiology and Other Data: Microbiology 04/13/18 18:40 Aerobic Blood Culture - Preliminary Blood Venous No Growth Day 4 Anaerobic Blood Culture - Preliminary No Growth Day 4 04/13/18 18:20 Aerobic Blood Culture - Preliminary Blood Line No Growth Day 4 Anaerobic Blood Culture - Preliminary No Growth Day 4 04/14/18 01:27 Nasal Screen MRSA (PCR) - Final Nasal Mrsa Not Detected Assess/Plan/Problems-Billing Assessment: - Patient Problems (1) Respiratory failure Current Visit: No Status: Acute Code(s): J96.90 - RESPIRATORY FAILURE, UNSP , UNSP W HYPOXIA OR HYPERCAPNIA SNOMED Code(s): 786707347 Comment: -Improved; currently on 2L NC O2 at rest; at home she is on O2 only at night and on ambulation/exertion -Hypercapnic respiratory failue possibly due to oversedation and COPD exacerbation and pulmonary congestion due to CHF likely due to missing dialysis -Continue Prednisone -Encouraged not to miss dialysis appointments -For ambulatory sats in AM (2) Lethargy Current Visit: Yes Status: Acute Code(s): R53.83 - OTHER FATIGUE SNOMED Code(s): 712528462 Comment: -Likely due to lack of sleep at night as pts mentation improved during the course of the day -NeuroVS reported to be stable -CT of head non-contrast: NAD (3) HTN (hypertension) Current Visit: No Status: Chronic Code(s): I10 - ESSENTIAL (PRIMARY) HYPERTENSION SNOMED Code(s): 42382422 Comment: -Improved control, however, pt has had some asymptomatic bradycardia and will cut down Carvedilol to 25 mg PO BID -Continue Amlodipine, Aliskiren, and Doxazosin -Will continue watchful waiting (4) Depression Current Visit: Yes Status: Acute Code(s): F32.9 - MAJOR DEPRESSIVE DISORDER , SINGLE EPISODE, UNSPECIFIED SNOMED Code(s): 40289630 Comment: -Stable -Continue Zoloft (5) CAD (coronary artery disease) Current Visit: No Status: Acute Code(s): I25.10 - ATHSCL HEART DISEASE OF [place] CORONARY ARTERY W/O ANG PCTRS SNOMED Code(s): 30820807 Comment: -Continue ASA, Plavix, statins, and Carvedilol (6) DVT prophylaxis Current Visit: No Status: Acute Priority: High Onset Date: 09/08/14 Code (s): XJJ8603 - SNOMED Code(s): 223532548 Comment: -Continue SCDs -Placed on Heparin SQq12H Status and Disposition: -Continue PT -For ambulatory sats in AM -For possible D/C in in AM---will discuss if any needs with care coordinators in AM
[2018-04-20] MEDS ORDERED: traZODone TAB* 50 MG TAB PO SCH (21:00)
[2018-04-20] MEDS: Albuterol 2.5 MG/3 ML NEB.SOL* (0.083%) INH PRN (21:42)
[2018-04-20] MEDS: Atorvastatin* 20 MG TAB PO SCH (22:18)
[2018-04-20] MEDS: HYDROcodone/ACETAMIN 5-325 MG* 1 TAB PO PRN (22:18)
[2018-04-21] MEDS ORDERED: Morphine VIAL* 4 MG/ML VIAL (1 ml vial) IV ONE (01:00)
[2018-04-21 05:46] LABS: Hematocrit 39 % (35-47); Hemoglobin 12.4 g/dl (12.0-16.0); Mean Corpuscular HGB Conc 32 g/dl (31-36); Mean Corpuscular Hemoglobin 28 pg (27-31); Mean Corpuscular Volume 88 fL (80-97); Mean Platelet Volume 7.3 fL (7.4-10.4); Platelet Count 163 10^3/ul (150-450); Red Blood Count 4.48 10^6/ul (4.00-5.40); Red Cell Distribution Width 18 % (10.5-15); White Blood Count 8.7 10^3/ul (3.5-10.8)
[2018-04-21 06:02] LABS: Albumin 3.3 g/dL (3.2-5.2); Albumin/Globulin Ratio 1.8 (1-3); BUN/Creatinine Ratio 9.5 (8-20); Calcium 8.8 mg/dL (8.6-10.3); EGFR African American 11.2 (>60); EGFR Non-African American 9.2 (>60); Globulin 1.8 g/dL (2-4); Magnesium 2.1 mg/dL (1.9-2.7); Phosphorus 5.2 mg/dL (2.5-5.0); Total Bilirubin 0.4 mg/dL (0.2-1.0); Total Protein 5.1 g/dL (6.4-8.9)
[2018-04-21 06:11] LABS: Vancomycin Random 7.1 mcg/mL
[2018-04-21 06:26] LABS: Potassium 5.1 mmol/L (3.5-5.0)
[2018-04-21 08:48] VITALS: BP 128/63
[2018-04-21] MEDS: amLODIPine TAB* 5 MG PO SCH (08:53)
[2018-04-21] MEDS: Aliskiren TAB* 300 MG PO SCH (08:53)
[2018-04-21] MEDS: Aspirin 81 mg CHEW TAB* 81 MG TAB.CHEW PO SCH (08:54)
[2018-04-21] MEDS: Doxazosin TAB* 2 MG PO SCH (08:54)
[2018-04-21] MEDS: hydrALAZINE TAB* 100 MG ** ONE HUNDRED PO SCH (08:54)
[2018-04-21] MEDS: Famotidine TAB* 20 MG PO SCH (08:55)
[2018-04-21] MEDS: Clopidogrel TAB* 75 MG PO SCH (08:55)
[2018-04-21] MEDS: Sertraline* 50 MG TAB PO SCH (08:55)
[2018-04-21] MEDS: Carvedilol TAB* 25 MG PO SCH (08:55)
[2018-04-21] MEDS: predniSONE TAB* 20 MG PO SCH (08:55)
[2018-04-21] MEDS: Calcitriol CAP* 0.25 MCG PO SCH (08:56)
[2018-04-21] MEDS: HYDROcodone/ACETAMIN 5-325 MG* 1 TAB PO PRN (09:03)
--- NOTE | 2018-04-21 15:08 | DS ---
CC: Dr. Pradeep Duffy; Dr. Walter Tucker; Zuleyka Torres NP; Dr. Cammie Lagunas ; Dr. Beth Rubi; Dr. Letty Duffy * DISCHARGE SUMMARY: DATE OF ADMISSION: DATE OF DISCHARGE: 04/21/18 DISCHARGE DIAGNOSES: As follows: 1. Respiratory failure, multifactorial, likely due to: A. Congestive heart failure exacerbation due to noncompliance with dialysis. B. Chronic obstructive pulmonary disease exacerbation. C. Polypharmacy. 2. Bradycardia. 3. Hypertension. 4. End-stage chronic kidney disease requiring hemodialysis Saturday, Saturday, and Saturday. DISCHARGE MEDICATIONS: As follows: 1. Tylenol 650 mg p.o. q.6 p.r.n. 2. Aliskiren 300 mg p.o. q.a.m. 3. Amlodipine 10 mg p.o. q.a.m. 4. Aspirin 81 mg p.o. q.a.m. 5. Atorvastatin 20 mg p.o. q.h.s. 6. Calcitriol 0.25 mcg p.o. q.a.m. 7. Carvedilol 25 mg p.o. b.i.d. 8. Ciprofloxacin/dexamethasone otic suspension 1 drop to both ears b.i.d. as previously prescribed. 9. Plavix 75 mg p.o. q.h.s. 10. Doxazosin 4 mg p.o. daily. 11. Etanercept 25 mg subcu q. Saturday. 12. Hydralazine 100 mg p.o. t.i.d. 13. Grassflat 5/325 one tab p.o. q.8 p.r.n., 12 tabs dispensed with 0 refills. 14. Methadone 5 mg p.o. q.12. 15. Omeprazole 20 mg p.o. q.h.s. 16. Ondansetron 4 mg p.o. q.8 p.r.n. 17. Prednisone rapid taper. 18. Sertraline 50 mg p.o. q.a.m. 19. Trazodone 25 mg p.o. q.h.s. HISTORY OF PRESENT ILLNESS/HOSPITAL COURSE: The patient is a 57-year-old lady with history of ESRD, on hemodialysis; hypertension and cardiomyopathy, who mentions that she has missed hemodialysis session prior to her admission and since then, the patient felt unwell and became more confused and noticed that she was in respiratory distress and hence, the patient was brought from [facility] to our facility and was subsequently found to have acute on chronic respiratory failure that is multifactorial likely due to CHF exacerbation due to noncompliance with her dialysis, COPD exacerbation, as well as polypharmacy. She has had hemodialysis in our facility with ultrafiltration along with treatment of steroids and we have decreased her medication need, especially her antihistamines were discontinued and the time between each p.r.n. pain meds was further increased. Her hypercapnic respiratory failure is likely due to her oversedation in the context of COPD and pulmonary congestion by missing her dialysis. During her hospital course and after being transferred out of the ICU, the patient has done well, but was found to be lethargic on the weekend given that she has not been sleeping well at night. When she was given trazodone and was able to sleep at night, her daytime lethargy has since resolved. She had been advised to follow up and/or call her PCP within 3 days post discharge and if her symptoms resume or develop new ones or feel unwell for any reason to call her PCP first and if her PCP cannot entertain her due to scheduling issues alone to call [facility] if the issue is considered nonemergent. She was advised to call my office regarding any questions, concerns, or further clarifications regarding her discharge plans and/or prescriptions and to take her medications as prescribed. She also had ambulatory sats done prior to her discharge and has done well on 2 L, which she normally uses on exertion and none at rest. PHYSICAL EXAMINATION: Shows the most recent vital signs of record with blood pressure of 128/63, 67 beats per minute heart rate, 20 per minute respiratory rate, saturating at 100%. General Appearance: The patient is awake, alert, and oriented x3, not in acute distress. HEENT: Normocephalic, atraumatic. PERRLA. Extraocular muscles intact. Negative for icterus. Moist oral mucosa. Negative throat erythema. Neck is soft, supple with no cervical lymphadenopathy , no JVD. Heart: S1, S2 within normal limits. Regular rate and rhythm. No murmurs, rubs, and gallops. Chest: Clear to auscultation bilaterally. Good air entry. No wheezes, rales, or rhonchi. Abdomen is soft, nondistended, nontender. Normoactive bowel sounds 4 times Q. Extremities: No cyanosis, clubbing, or edema. Psychiatric: No active psychosis, depression, suicidal nor homicidal ideation. Skin is warm to touch. TIME SPENT: The total time spent evaluating the patient, reviewing pertinent data, and appropriate documentation is 65 minutes. [id number]/[facility] #: [id number] MTDD
== END 2018-04-25 16:00 | disposition home or self-care (01) | DRG 189 ==
LOC: ED 08:17 → ICU 11:56 → MEDTELE 04-18 00:43 → UNDODISIN 04-21 11:00
PROVIDERS: ADMIT Internal Medicine; ATTEND Student in an Organized Health Care Education/Training Program
PROC: 5A09357 Assistance with Respiratory Ventilation, Less than 24 Consecutive Hours, Continuous Positive Airway Pressure (ICD-10-PCS; 2018-04-13)
PROC: 5A1D70Z Performance of Urinary Filtration, Intermittent, Less than 6 Hours Per Day (ICD-10-PCS; 2018-04-13)
PROC: 4A00X4Z Measurement of Central Nervous Electrical Activity, External Approach (ICD-10-PCS; principal; 2018-04-14)
PROC: 5A1D70Z Performance of Urinary Filtration, Intermittent, Less than 6 Hours Per Day (ICD-10-PCS; 2018-04-14)
PROC: 5A1D70Z Performance of Urinary Filtration, Intermittent, Less than 6 Hours Per Day (ICD-10-PCS; 2018-04-16)
PROC: 5A1D70Z Performance of Urinary Filtration, Intermittent, Less than 6 Hours Per Day (ICD-10-PCS; 2018-04-18)
DX: J96.20 Acute and chronic respiratory failure, unspecified whether with hypoxia or hypercapnia (principal); I50.33 Acute on chronic diastolic (congestive) heart failure; N18.6 End stage renal disease; 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 disease with heart failure and with stage 5 chronic kidney disease, or end stage renal disease; J44.1 Chronic obstructive pulmonary disease with (acute) exacerbation; Q61.3 Polycystic kidney, unspecified; Z68.1 Body mass index [BMI] 19.9 or less, adult; R64 Cachexia; I42.9 Cardiomyopathy, unspecified; G40.89 Other seizures; G93.40 Encephalopathy, unspecified; I25.10 Atherosclerotic heart disease of native coronary artery without angina pectoris; J96.12 Chronic respiratory failure with hypercapnia; E78.5 Hyperlipidemia, unspecified; I72.9 Aneurysm of unspecified site; K21.9 Gastro-esophageal reflux disease without esophagitis; K57.90 Diverticulosis of intestine, part unspecified, without perforation or abscess without bleeding; M19.90 Unspecified osteoarthritis, unspecified site; M06.9 Rheumatoid arthritis, unspecified; I16.0 Hypertensive urgency; F32.9 Major depressive disorder, single episode, unspecified; F41.9 Anxiety disorder, unspecified; I27.20 Pulmonary hypertension, unspecified; D69.6 Thrombocytopenia, unspecified; M40.209 Unspecified kyphosis, site unspecified; Z66 Do not resuscitate; T50.905A Adverse effect of unspecified drugs, medicaments and biological substances, initial encounter; R00.1 Bradycardia, unspecified; Z79.82 Long term (current) use of aspirin; Z87.891 Personal history of nicotine dependence; Z86.73 Personal history of transient ischemic attack (TIA), and cerebral infarction without residual deficits; Z79.52 Long term (current) use of systemic steroids; Z99.2 Dependence on renal dialysis; Z88.5 Allergy status to narcotic agent; Z88.8 Allergy status to other drugs, medicaments and biological substances; I25.2 Old myocardial infarction; Z79.02 Long term (current) use of antithrombotics/antiplatelets; Z82.49 Family history of ischemic heart disease and other diseases of the circulatory system; Z84.1 Family history of disorders of kidney and ureter; Z91.15 Patient's noncompliance with renal dialysis; Z99.81 Dependence on supplemental oxygen; Y92.009 Unspecified place in unspecified non-institutional (private) residence as the place of occurrence of the external cause
CPT/HCPCS: 36415; 36600; 70450; 71045; 80048; 80053; 80202; 82803; 83605; 83735; 83880; 84100; 84443; 84484; 85025; 85027; 85060; 85610; 86140; 87040; 87641; 90935; 93005; 94640; 94660; 94762; 95819; 99285; A9270-GY; G0257; G8978-GP-CJ; G8979-GP-CH; J0360; J0461; J0692; J1630; J1644; J2060; J2270; J2310; J2405; J2920; J3360; J3370; J7512

== ENCOUNTER 2018-04-21 15:59 | Inpatient (IN) | payer MEDICARE, MEDICAID ==
--- NOTE | 2018-04-21 16:31 | ED ---
Complex/Multi-Sys Presentation - HPI Summary HPI Summary: A 57 year old female brought in by ambulance presents to the ED c/o becoming increasingly somnolent during dialysis on 04/21/2018. Per EMS her vital signs were normal. The pt states that she has dyspnea with anything that she does. She denies chills or cough. She thinks that she usually wears O2 at home but did not seem sure. She states that she had no symptoms prior to dialysis. - History Of Current Complaint Chief Complaint: EDGeneral Time Seen by Provider: 04/21/18 16:02 Hx Obtained From: Patient, EMS Onset/Duration: Sudden Onset, Lasting Hours Associated Signs And Symptoms: Negative: Cough - Allergies/Home Medications Allergies/Adverse Reactions: Allergies Allergy/AdvReac Type Severity Reaction Status Date / Time Adhesive Tape Allergy Intermediate Hives Verified 04/21/18 16:11 codeine AdvReac Severe GI Upset Verified 04/21/18 16:11 PMH/Surg Hx/FS Hx/Imm Hx Endocrine/Hematology History: Reports: Hx Anemia - gets epogen shot Denies: Hx Blood Disorders, Hx Blood Transfusions, Hx Bone Marrow Disease, Hx Diabetes, Hx Systemic Lupus Erythematosus, Hx Thyroid Disease, Hx Unexplained Bleeding Cardiovascular History: Reports: Hx Aneurysm, Hx Cardiomegaly, Hx Congestive Heart Failure, Hx Coronary Artery Disease, Hx Hypercholesterolemia, Hx Hypertension, Other Cardiovascular Problems/Disorders - CAD, MT, MURMUR Denies: Hx Pacemaker/ICD, Hx Peripheral Vascular Disease Respiratory History: Reports: Hx Chronic Obstructive Pulmonary Disease (COPD) - PT DENIES, Hx Pleural Effusion Denies: Hx Pneumonia, Hx Pulmonary Edema, Hx Pulmonary Embolism, Hx Seasonal Allergies, Hx Sleep Apnea GI History: Reports: Hx Diverticulosis, Hx Gastroesophageal Reflux Disease, Hx Ulcer History: Reports: Hx Chronic Renal Failure, Hx Dialysis - HEMODIALYSIS VIA [facility], Hx Kidney Infection, Hx Renal Disease - ESRD, polycystic kidney disease , Other Problems/Disorders - polycystic kidney Denies: Hx Kidney Stones Musculoskeletal History: Reports: Hx Arthritis, Hx Rheumatoid Arthritis, Hx Back Problems, Hx Orthopedic Injury - left hip fx, Other Musculoskeletal History - LEFT HIP FX Denies: Hx Osteoporosis Sensory History: Reports: Hx Contacts or Glasses Denies: Hx Cataracts, Hx Eye Injury, Hx Eye Prosthesis, Hx Glaucoma, Hx Legally Blind, Hx Macular Degeneration, Hx Vision Problem, Hx Deafness, Hx Hearing Aid, Hx Hearing Problem Opthamlomology History: Reports: Hx Contacts or Glasses Denies: Hx Cataracts, Hx Eye Injury, Hx Eye Prosthesis, Hx Glaucoma, Hx Legally Blind, Hx Macular Degeneration, Hx Vision Problem Neurological History: Reports: Hx CVA, Other Neuro Impairments/Disorders - brain aneurism x5 per pt Denies: Hx Dementia, Hx Developmental Delay, Hx Headaches, Hx Migraine, Hx Nerve Disease, Hx Seizures Psychiatric History: Reports: Hx Anxiety, Hx Depression Denies: Hx Panic Disorder, Hx Post Traumatic Stress Disorder, Other Psychiatric Issues/Disorders - Cancer History Hx Chemotherapy: No - Surgical History Surgery Procedure, Year, and Place: dialysis port x2 Hx Anesthesia Reactions: No - Immunization History Date of Tetanus Vaccine: Unknown Infectious Disease History: No Infectious Disease History: Denies: Hx Tuberculosis, Traveled Outside the [place] in Last 30 Days - Family History Known Family History: Negative: Cardiac Disease, Hypertension, Diabetes - Social History Alcohol Use: None Hx Substance Use: No Substance Use Type: Reports: None Hx Tobacco Use: Yes Smoking Status (MU): Former Smoker Type: Cigarettes Amount Used/How Often: not much, only while in college Have You Smoked in the Last Year: No Review of Systems Constitutional: Other - Positive: somnolent Negative: Chills Respiratory: Other - positive: dyspnea Negative: Cough All Other Systems Reviewed And Are Negative: Yes Physical Exam - Summary Physical Exam Summary: Appearance: The patient is well-nourished in no acute distress and in no acute pain. Skin: The skin is warm and dry and skin color reflects adequate perfusion. HEENT: The head is normocephalic and atraumatic. The pupils are equal and reactive. The conjunctivae are clear and without drainage. Nares are patent and without drainage. Mouth reveals moist mucous membranes and the throat is without erythema and exudate. The external ears are intact. The ear canals are patent and without drainage. The tympanic membranes are intact. Neck: The neck is supple with full range of motion and non-tender. There are no carotid bruits. There is no neck vein distension. Respiratory: periodically gasping for breath. Crackles at left base, decreased breath sounds right lung. Cardiovascular: Heart is regular rate and rhythm. There is no murmur or rub auscultated. There is no peripheral edema and pulses are symmetrical and equal. Abdomen: The abdomen is soft and non-tender. There are normal bowel sounds heard in all four quadrants and there is no organomegaly palpated. Musculoskeletal: There is no back tenderness noted. Extremities are non-tender with full range of motion. There is good capillary refill. There is no peripheral edema or calf tenderness elicited. Neurological: Patient is alert and oriented to person, place and time. The patient has symmetrical motor strength in all four extremities. Cranial nerves are grossly intact. Deep tendon reflexes are symmetrical and equal in all four extremities. Psychiatric: The patient has an appropriate affect and does not exhibit any anxiety or depression. Triage Information Reviewed: Yes Vital Signs On Initial Exam: Initial Vitals Temp Pulse Resp BP Pulse Ox 97.3 F 64 12 121/58 100 04/21/18 16:01 04/21/18 16:01 04/21/18 16:01 04/21/18 16:01 04/21/18 16:01 Vital Signs Reviewed: Yes Diagnostics - Vital Signs Vital Signs Temp Pulse Resp BP Pulse Ox 04/21/18 16:01 97.3 F 64 12 121/58 100 - Laboratory Result Diagrams: 04/21/18 16:38 04/21/18 16:38 Lab Statement: Any lab studies that have been ordered have been reviewed, and results considered in the medical decision making process. - Radiology CXR Radiology Interpretation Completed By: Radiologist - Chest x-ray findings are consistent with pulmonary edema with left greater than right pleural effusions, slightly reduced since the most recent April 13, 2018 chest x-ray. ED physician has reviewed this report. - EKG 16:49 Cardiac Rate: NL - 63 bpm EKG Rhythm: Sinus Rhythm Summary of EKG Findings: Normal sinus rhythm, LVH Re-Evaluation - Re-Evaluation First Eval Re-Evaluation Time: 19:30 Change: Unchanged Comment: Spoke to pt about admission. Complex Multi-Symp Course/Dx Course Of Treatment: Ms. Charles was apparently discharged from the hospital today for respiratory failure. She went to dialysis prior to going back to the half-way but was complaining of extreme weakness after dialysis and was somewhat somnolent and was therefore sent back. It's difficult to get a story when she arrives and while her workup was proceeding she gets a little more somnolent. An ABG revealed her to be hypercarbic and she was placed on BiPAP. The hospitalist service was contacted for readmission. - Diagnoses Provider Diagnoses: Respiratory failure - Physician Notifications Discussed Care Of Patient With: Cammie Lagunas Time Discussed With Above Provider: 17:40 Instructed by Provider To: Admit As Inpatient - Critical Care Time Critical Care Time: 30-74 min Discharge - Sign-Out/Discharge Documenting (check all that apply): Patient Departure - Admit - Discharge Plan Condition: Fair Disposition: ADMITTED TO [facility] - Billing Disposition and Condition Condition: FAIR Disposition: Admitted to [facility] - Attestation Statements Document Initiated by Khariibe: Yes Documenting Scribe: Rolando Keller Provider For Whom Khariibe is Documenting (Include Credential): Walter Phillips MD Scribe Attestation: I, Rolando Keller, scribed for Walter Phillips MD on 04/21/18 at 2109. Scribe Documentation Reviewed: Yes Provider Attestation: The documentation as recorded by the Rolando woods accurately reflects the service I personally performed and the decisions made by me, Walter Phillips MD
[2018-04-21 16:49] LABS: ABS Basophils 0 10^3/ul (0-0.2); ABS Eosinophils 0 10^3/ul (0-0.6); ABS Lymphocytes 0.5 10^3/ul (1.0-4.8); ABS Monocytes 0.2 10^3/ul (0-0.8); ABS Neutrophils 5.5 10^3/ul (1.5-7.7); ABS Nucleated RBC 0 10^3/ul; Eosinophil % 0.3 % (0-6); Hematocrit 38 % (35-47); Hemoglobin 11.9 g/dl (12.0-16.0); Lymphocyte % 8.7 % (25-47); Mean Corpuscular HGB Conc 32 g/dl (31-36); Mean Corpuscular Hemoglobin 28 pg (27-31); Mean Corpuscular Volume 88 fL (80-97); Mean Platelet Volume 7.3 fL (7.4-10.4); Nucleated Red Blood Cells % 0; Platelet Count 142 10^3/ul (150-450); Red Blood Count 4.26 10^6/ul (4.00-5.40); Red Cell Distribution Width 17 % (10.5-15); White Blood Count 6.3 10^3/ul (3.5-10.8)
[2018-04-21 16:56] LABS: INR 0.98 (0.77-1.02)
[2018-04-21 17:10] LABS: EGFR Non-African American 21.1 (>60)
[2018-04-21] MEDS ORDERED: Albuterol 2.5 MG/3 ML NEB.SOL* (0.083%) INH PRN (20:49)
[2018-04-21] MEDS ORDERED: hydrALAZINE TAB* 100 MG ** ONE HUNDRED PO SCH (21:00)
[2018-04-21] MEDS ORDERED: Carvedilol TAB* 25 MG PO SCH (21:00)
[2018-04-21] MEDS ORDERED: Naloxone* 0.4 MG/ML 1 ML VIAL ONE (21:22)
[2018-04-21] MEDS: hydrALAZINE TAB* 100 MG ** ONE HUNDRED PO SCH (22:40)
[2018-04-21] MEDS: Atorvastatin* 20 MG TAB PO SCH (22:40)
[2018-04-21] MEDS: Carvedilol TAB* 25 MG PO SCH (22:40)
[2018-04-21] MEDS: Clopidogrel TAB* 75 MG PO SCH (22:40)
[2018-04-21] MEDS: CMCS:Pantoprazole TAB (NF) 40 MG TAB PO SCH (22:40)
[2018-04-21] MEDS: Heparin VIAL(*) 5000 UNITS/ML VIAL (FIVE THOUSAND) SUBCUT SCH (22:41)
--- NOTE | 2018-04-21 22:53 | HP ---
AMENDED REPORT NOW INCLUDES DESIGNATED COSIGNER CC: Baldo Johnson * HISTORY AND PHYSICAL: ATTENDING PROVIDER: Dr. Lagunas * (DICTATED BY RIGO GAGE NP) DATE OF ADMISSION: 04/21/18 CHIEF COMPLAINT: Altered mental status. HISTORY OF PRESENT ILLNESS: Mrs. Charles is a 57-year-old female patient with multiple medical problems. She carries a history of end-stage renal disease secondary to polycystic kidney disease. She also has a history of cardiomyopathy, EF was 50% to 55% with diastolic failure and pulmonary hypertension, history of hypertension, CVA, rheumatoid arthritis, depression. She is presenting again today. She was recently admitted on 04/13/18, discharged today to dialysis. Her recent admission was secondary to respiratory failure requiring BiPAP and for hypercarbia. She left [facility], she was sent to dialysis. In dialysis, it was noted that she was drowsy. She was confused. She was sleepy. She was just not acting herself. They were concerned at dialysis and they sent her to the hospital. She got into the ED. She was initially somewhat talkative. She did become more somnolent and blood gas obtained showed hypercapnic respiratory failure again. The history really was not able to be obtained from the patient. She is on a BiPAP, she will awaken to noxious stimuli, open her eyes. She is combative when we try to push her arms away and quickly falls back asleep. She was noted to have the hypercapnic respiratory failure and we were asked to evaluate for admission. She has been admitted in the past for similar episodes like this. She was literally discharged at 2 o'clock today, went to dialysis, and then sent right away from dialysis. Unfortunately, I was unable to talk to dialysis nurses as they have gone home for the evening. She was placed on BiPAP and we were asked to evaluate for admission. The son indicated to me over the phone that she typically is oriented x3 and interactive. PAST MEDICAL HISTORY: Significant for: 1. End-stage renal disease secondary to polycystic kidney disease. 2. Hypertension. 3. Cardiomyopathy, last EF was in November of 50% to 55%. Notable diastolic dysfunction and pulmonary hypertension. 4. CVA. 5. Rheumatoid arthritis. 6. Depression. PAST SURGICAL HISTORY: The only surgery that I am aware of is that she had a tunnel dialysis catheter as well as peritoneal dialysis catheter, which was inserted and removed. Unable to obtain other history. HOME MEDICATIONS: This was according to the discharge summary dictated a couple of hours ago. The discharge medications include: 1. Tylenol 650 mg every 6 hours as needed. 2. Tekturna 300 mg p.o. q.a.m. 3. Amlodipine 10 mg p.o. q.a.m. 4. Aspirin 81 mg daily. 5. Lipitor 20 mg at bedtime. 6. Calcitetrol 0.25 mcg p.o. q.a.m. 7. Carvedilol 25 mg p.o. b.i.d. 8. Cipro/dexamethasone suspension 1 drop both ears b.i.d. 9. Plavix 75 mg p.o. q.h.s. 10. Doxazosin 4 mg p.o. daily. 11. Enbrel 25 mg subcu on Saturday. 12. Hydralazine 100 mg p.o. t.i.d. 13. Franklinton 1 tablet every 8 hours as needed. 14. Methadone 5 mg p.o. every 12 hours. 15. Omeprazole 20 mg p.o. q.h.s. 16. Prednisone taper. 17. Zofran 4 mg every 8 hours as needed. 18. Trazodone 25 mg q.h.s. 19. Zoloft 50 mg in the morning. ALLERGIES TO MEDICATIONS: Include TAPE and CODEINE. FAMILY HISTORY: According to old notes, her father did have polycystic kidney disease and CAD. Otherwise unable to be obtained. SOCIAL HISTORY: She resides at [facility]. Previous notes indicates she was a nonsmoker and does not drink alcohol. Surrogate decision maker is her son. REVIEW OF SYSTEMS: Unable to be obtained directly from the patient given the altered mental status. PHYSICAL EXAMINATION GENERAL: At this time, Mrs. Charles is a 57-year-old female patient. She appears to be older than her stated age. She is sitting in the ED stretcher. She is somnolent. She does not appear to be in any acute distress. VITAL SIGNS: Blood pressure 107/69 with a pulse of 57, respirations were 13, she is on a BiPAP currently. Oxygen saturation are 100%, temperature is 97.3. HEENT: Head atraumatic. Eyes: Pupils reactive to light. Sclerae anicteric. Throat: Oral mucosa appears to be dry. No oropharyngeal erythema. NECK: Supple. LUNGS: She had crackles bilateral in the basis. Equal diaphragmatic expansion. HEART: Sounds S1 and S2. No murmurs, rubs, or gallops. ABDOMEN: Soft, it was flat, and nontender. Bowel sounds were present. EXTREMITIES: Pulses were 2+ throughout. She had no peripheral edema. NEUROLOGIC: Again, she is sedate. She responds to noxious stimuli and moves grossly all 4 extremities. She does not have any gross focal neurologic deficits. Her skin was intact. LABORATORY DATA: Revealing a WBC of 6.3, RBC of 4.26, hemoglobin of 11.9, hematocrit of 38, and platelet count of 142. INR of 0.98. Blood gas; pH 722, pCO2 of 83. The pO2 was 85. Sodium was 134, potassium of 4.6, chloride 100, bicarb 30, BUN was 18, creatinine of 2.37, glucose of 110, lactate of 0.7, calcium 8.7. Total mag was 2.0, total bili 0.4. AST 13, ALT 15, alk phos 73, troponin 0.02. BNP was 213. Albumin of 3.4. TSH was normal. Chest x-ray today when I reviewed it; she does have bilateral pulmonary edema. Radiology read as chest x-ray are consistent with pulmonary edema with left greater than right pleural effusion, slightly reduced since 04/13/18 exam. She had an EKG obtained today, which does show a sinus rhythm, rate of 63 with LVH. She did have inverted T-waves in I, II, III, and aVL along with V4, 5, and 6. She has had inverted T-waves previously in these leads. V4 is now new, but LVH is not new. Old medical records were reviewed. ASSESSMENT AND PLAN: Mrs. Charles is a complex 57-year-old female patient with multiple medical problems coming to the emergency department today with altered mental status. On evaluation was found to be in hypercapnic respiratory failure. We were asked to evaluate for admission. She will be admitted under inpatient status for: 1. Hypercapnic respiratory failure. Etiology of this is unclear. I did touch base with our pharmacy to see what medication she was given. She was given Franklinton 8 in the morning, in addition to this morphine 1 mg at 1 o'clock in the morning. I question if this could be polypharmacy and she may have a low threshold given the fact she has got significant pulmonary edema which may have certainly contributed to hypercapnia. My plan will be to hold sedating agents, place her on BiPAP, repeat her gas. If she is not improving, we may need to consider intubation for the patient. I am going to touch base with the son about resuscitation and code status. Fortunately, he is on his way in so I can discuss that with him. I do not have an obvious precipitating factor at this point; but at this point again, we will need to continue with this BiPAP, touch base with the son, and see where we are going to move forward from here and I think she deserves a Pulmonology consult which I have placed. 2. End-stage renal disease. Will continue her dialysis. 3. Polycystic kidney disease. She is following with Dr. Bianchi. 4. Hypertension. Her blood pressure actually appears to be stable. Essentially on the softer side. I will continue her meds with hold parameters. She is typically hypertensive with these episodes. She is not tonight. 5. Cardiomyopathy. Again, she will need dialysis for fluid status. We will check her weights daily. I will continue meds as prescribed. 6. Cerebrovascular accident. Continue with secondary prevention. 7. History of rheumatoid arthritis. We will start her Enbrel when we are able. I am going to hold it currently. 8. Depression. Continue supportive care. 9. DVT prophylaxis. She will be placed on heparin subcu. 10. Altered mental status. I am going to get a CT of the brain. 11. She has indicated in the past a DNR, DNI. However, in the computer system , there is full code. We need to clarify this with the patient's son, the healthcare proxy. TIME SPENT ON ADMISSION: Approximately 70 minutes, greater than half the time was spent [id number] with the patient obtaining my history and physical. Other half the time spent going over the plan of care with the patient, implementing the plan of care. This was critical care time. I did discuss the plan of care with my attending Dr. Lagunas, she is in agreement. RIGO GAGE, SNEHA [id number]/[facility] #: [id number] JOHN [facility]. OISHEI CHILDREN'S HOSPITALRenee
[2018-04-22] MEDS: Mometasone/Formoter 200/5 MDI INH SCH ×3 (03:02→19:07)
[2018-04-22] MEDS: Heparin VIAL(*) 5000 UNITS/ML VIAL (FIVE THOUSAND) SUBCUT SCH ×3 (05:41→21:34)
[2018-04-22 06:07] LABS: ABS Basophils 0 10^3/ul (0-0.2); ABS Eosinophils 0.1 10^3/ul (0-0.6); ABS Monocytes 0.6 10^3/ul (0-0.8); ABS Neutrophils 5.8 10^3/ul (1.5-7.7); ABS Nucleated RBC 0 10^3/ul; Eosinophil % 0.8 % (0-6); Hematocrit 36 % (35-47); Hemoglobin 11.2 g/dl (12.0-16.0); Lymphocyte % 12.8 % (25-47); Mean Corpuscular HGB Conc 31 g/dl (31-36); Mean Corpuscular Hemoglobin 28 pg (27-31); Mean Corpuscular Volume 88 fL (80-97); Mean Platelet Volume 7.6 fL (7.4-10.4); Nucleated Red Blood Cells % 0.1; Platelet Count 143 10^3/ul (150-450); Red Blood Count 4.05 10^6/ul (4.00-5.40); Red Cell Distribution Width 18 % (10.5-15); White Blood Count 7.4 10^3/ul (3.5-10.8)
[2018-04-22 06:14] LABS: INR 0.91 (0.77-1.02)
[2018-04-22] MEDS ORDERED: predniSONE TAB* 10 MG PO SCH (09:00)
[2018-04-22] MEDS ORDERED: Doxazosin TAB* 2 MG PO SCH (09:00)
[2018-04-22] MEDS ORDERED: amLODIPine TAB* 5 MG PO SCH (09:00)
[2018-04-22] MEDS: hydrALAZINE TAB* 100 MG ** ONE HUNDRED PO SCH ×3 (09:28→20:23)
[2018-04-22] MEDS: predniSONE TAB* 10 MG PO SCH (09:29)
[2018-04-22] MEDS: Carvedilol TAB* 25 MG PO SCH ×2 (09:29→20:21)
[2018-04-22] MEDS: amLODIPine TAB* 5 MG PO SCH (09:29)
[2018-04-22] MEDS: Calcitriol CAP* 0.25 MCG PO SCH (09:30)
[2018-04-22] MEDS: Doxazosin TAB* 2 MG PO SCH (09:30)
[2018-04-22] MEDS: Aliskiren TAB* 300 MG PO SCH (09:30)
[2018-04-22] MEDS: Sertraline* 50 MG TAB PO SCH (09:30)
[2018-04-22] MEDS: Aspirin EC TAB* 81 MG TAB.EC PO SCH (09:31)
--- NOTE | 2018-04-22 10:14 | PN ---
Subjective Date of Service: 04/22/18 Interval History: Pt stated that she uses 02 but no CPAP/BIPAP at [facility]. Rather vague to the time frame of recent events. Doesn't remember when she was placed in [place] originally. Feels "better" now. No c/o SOB/CP/abd pain Objective Active Medications: Acetaminophen (Tylenol Tab*) 650 mg PO Q4H PRN PRN Reason: FEVER/PAIN Albuterol (Ventolin 2.5 Mg/3 Ml Neb.Francy*) 2.5 mg INH Q2H PRN PRN Reason: SOB/WHEEZING Aliskiren (Tekturna Tab*) 300 mg PO QAM [facility] Last Admin: 04/22/18 09:30 Dose: 300 mg Amlodipine Besylate (Norvasc Tab*) 10 mg PO QAM [facility] Last Admin: 04/22/18 09:29 Dose: 10 mg Aspirin (Aspirin Ec Tab*) 81 mg PO QAM [facility] Last Admin: 04/22/18 09:31 Dose: 81 mg Atorvastatin Calcium (Lipitor*) 20 mg PO BEDTIME [facility] Last Admin: 04/21/18 22:40 Dose: Not Given Calcitriol (Rocaltrol Cap*) 0.25 mcg PO QAM [facility] Last Admin: 04/22/18 09:30 Dose: 0.25 mcg Carvedilol (Coreg Tab*) 25 mg PO BID [facility] Last Admin: 04/22/18 09:29 Dose: 25 mg Clopidogrel Bisulfate (Plavix Tab*) 75 mg PO BEDTIME [facility] Last Admin: 04/21/18 22:40 Dose: Not Given Doxazosin Mesylate (Cardura Tab*) 4 mg PO DAILY [facility] Last Admin: 04/22/18 09:30 Dose: 4 mg Heparin Sodium (Porcine) (Heparin Vial(*)) 5,000 units SUBCUT Q8HR [facility] Last Admin: 04/22/18 05:41 Dose: 5,000 units Hydralazine HCl (Apresoline Tab*) 100 mg PO TID [facility] Last Admin: 04/22/18 09:28 Dose: 100 mg Mometasone Furoate/Formoterol Fumar (Dulera 200/5 Mdi*) 2 puff INH BID [facility] Last Admin: 04/22/18 08:27 Dose: 2 puff Pantoprazole Sodium (Protonix Tab (Nf)) 40 mg PO BEDTIME [facility] Last Admin: 04/21/18 22:40 Dose: Not Given Prednisone (Deltasone Tab*) 20 mg PO DAILY [facility] Stop: 04/24/18 09:01 Last Admin: 04/22/18 09:29 Dose: 20 mg Prednisone (Deltasone Tab*) 10 mg PO DAILY [facility] Stop: 04/27/18 09:01 Prednisone (Deltasone Tab*) 5 mg PO DAILY [facility] Stop: 04/30/18 09:01 Sertraline HCl (Zoloft*) 50 mg PO QAM [facility] Last Admin: 04/22/18 09:30 Dose: 50 mg Vital Signs - 8 hr 04/22/18 04/22/18 04/22/18 03:00 03:01 03:33 Temperature 98 F Pulse Rate 73 74 Respiratory 19 23 Rate Blood Pressure 85/57 (mmHg) O2 Sat by Pulse 100 100 Oximetry 04/22/18 04/22/18 04/22/18 04:00 04:01 05:00 Temperature Pulse Rate 70 76 75 Respiratory 14 19 22 Rate Blood Pressure 130/65 127/72 (mmHg) O2 Sat by Pulse 97 96 98 Oximetry 04/22/18 04/22/18 04/22/18 05:01 05:32 06:00 Temperature Pulse Rate 72 77 Respiratory 16 16 17 Rate Blood Pressure 128/70 (mmHg) O2 Sat by Pulse 98 99 Oximetry 04/22/18 04/22/18 04/22/18 06:01 07:00 07:01 Temperature Pulse Rate 81 75 75 Respiratory 19 14 19 Rate Blood Pressure 144/76 (mmHg) O2 Sat by Pulse 99 99 99 Oximetry 04/22/18 04/22/18 04/22/18 08:00 08:01 08:06 Temperature 98.7 F Pulse Rate 74 82 Respiratory 17 22 Rate Blood Pressure 150/82 (mmHg) O2 Sat by Pulse 98 99 Oximetry 04/22/18 04/22/18 04/22/18 08:25 08:26 09:00 Temperature 98.6 F Pulse Rate 81 72 Respiratory 25 21 Rate Blood Pressure 149/74 (mmHg) O2 Sat by Pulse 99 99 96 Oximetry 04/22/18 04/22/18 04/22/18 09:01 09:32 09:52 Temperature Pulse Rate 72 81 Respiratory 24 15 26 Rate Blood Pressure 137/69 (mmHg) O2 Sat by Pulse 94 100 Oximetry 04/22/18 04/22/18 10:00 10:01 Temperature Pulse Rate 82 80 Respiratory 21 24 Rate Blood Pressure 145/92 (mmHg) O2 Sat by Pulse 99 99 Oximetry Oxygen Devices in Use Now: Nasal Cannula Appearance: 57 yo F in nAD, AAOx3, appears chronically ill, poor historian Eyes: No Scleral Icterus, PERRLA Ears/Nose/Mouth/Throat: NL Teeth, Lips, Gums, Mucous Membranes Moist Neck: NL Appearance and Movements; NL JVP, Trachea Midline Respiratory: Symmetrical Chest Expansion and Respiratory Effort, - - crackles at b/l bases Cardiovascular: NL Sounds; No Murmurs; No JVD, RRR Abdominal: NL Sounds; No Tenderness; No Distention, No Hepatosplenomegaly Lymphatic: No Cervical Adenopathy Extremities: No Edema, No Clubbing, Cyanosis Skin: No Rash or Ulcers, No Nodules or Sclerosis, - - R subclavian HD cath in place, skin clean Neurological: Alert and Oriented x 3, NL Muscle Strength and Tone Result Diagrams: 04/22/18 05:44 04/22/18 05:44 Assess/Plan/Problems-Billing Assessment: Ms. Charles is a 57 yo female with PMH significant for ESRD on hemodialysis, CAD, severe kyphosis who presented to the emergency room from her discharge on the same day after 8 days of hospital stay for acute resp failure. Pt was noted to have hypercapnia again - Patient Problems (1) Acute hypercapnic respiratory failure Comment: I suspect pt will need BIPAP/CPAP whenever she is asleep will place for overnight pulseox to potentially qualify pt for it before d/c to NH cont 02 at 2-3 L at baseline (2) CAD (coronary artery disease) Comment: -Continue ASA, Plavix, statins, and Carvedilol (3) Chronic pain Comment: methadone and Hydrocodone PRN on hold due to lethargy at admission (4) End stage renal failure on dialysis Comment: Related to polycystic kidney disease MWF HD Lytes okay Volume okay (5) COPD (chronic obstructive pulmonary disease) Comment: - No signs of acute exacerbation - With Chronic hypoxic respiratory failure, was dx with exacerbation during previous hospital admission, cont Prednisone taper - Continue supplemental O2 (6) HTN (hypertension) Comment: controlled, Carvedilol was lowered to to 25 mg PO BID on 04/20/18 -Continue Amlodipine, Aliskiren, and Doxazosin (7) DVT prophylaxis Comment: -Continue SCDs -Placed on Heparin SQq Status and Disposition: Inpatient
[2018-04-22] MEDS: hydrOXYzine HCL TAB* 10 MG PO PRN ×2 (13:54→21:30)
[2018-04-22] MEDS: Clopidogrel TAB* 75 MG PO SCH (20:20)
[2018-04-22] MEDS: CMCS:Pantoprazole TAB (NF) 40 MG TAB PO SCH (20:22)
[2018-04-22] MEDS: Atorvastatin* 20 MG TAB PO SCH (20:22)
[2018-04-23] MEDS: Heparin VIAL(*) 5000 UNITS/ML VIAL (FIVE THOUSAND) SUBCUT SCH ×3 (05:21→21:43)
--- NOTE | 2018-04-23 06:57 | CONS ---
PULMONARY CONSULTATION REPORT: DATE OF CONSULTATION: 04/22/18 CONSULTATION REQUESTED BY: Miriam Vizcarra MD REASON FOR CONSULTATION: Evaluation of hypoxemic and hypercapnic respiratory failure. HISTORY OF PRESENT ILLNESS: The patient is a 57-year-old female with end-stage renal disease, on hemodialysis, CAD, severe neuromuscular disease with kyphosis , has chronic pain and been on methadone, hydrocodone p.r.n., COPD diagnosed recently when she presented during prior hospitalization, hypertension. The patient was transferred to ICU last night for acute change in mental status. The patient is a poor historian. Much of the history is obtained from inpatient care provider, review of medical records. The patient is a current resident of [facility]. She has end-stage renal disease and has been on hemodialysis. The patient was recently hospitalized for altered mental status and respiratory failure. She was recently admitted on 04/13/18 and was discharged to dialysis. She was treated for respiratory failure, requiring BiPAP , and for hypercapnic respiratory failure. While in dialysis, she was noted to be drowsy, confused, and sleepy, not acting herself. She was sent into the emergency room for further evaluation. The patient was found to be lethargic in emergency room. Further evaluation included arterial blood gas, which showed evidence of hypercapnic respiratory failure. She was placed on noninvasive ventilation. The patient was subsequently admitted to ICU for hypercapnic respiratory failure and altered mental status. The patient continued on BiPAP overnight. She was more alert and oriented x2 this morning at the time of my evaluation. She is on methadone and [place]. She is indicated as a former nonsmoker; however, recently was given the diagnosis of COPD. She has not seen a court deputy before. She was discharged on tapering doses of prednisone after recent hospitalization. The patient has been refusing BiPAP after she became more alert. She has been complaining of being uncomfortable with BiPAP settings. Repeat blood gas was obtained this morning, which showed improvement of acidosis with metabolic compensation. She has subsequently remained on nasal cannula at 4 to 6 L without evidence of significant hypoxemia. The patient subsequently was transferred to regular medical floor. The patient had CT of the brain given altered mental status, which revealed no acute abnormality. EKG revealed sinus rhythm with no acute ischemic changes. Her narcotic medications are being held. PAST MEDICAL HISTORY: 1. End-stage renal disease secondary to polycystic kidney disease, on dialysis. 2. Hypertension. 3. Cardiomyopathy with diastolic dysfunction. 4. Pulmonary hypertension. 5. CVA. 6. Rheumatoid arthritis. 7. Depression. PAST SURGICAL HISTORY: Dialysis catheter placement, also peritoneal catheter in the past that was removed. MEDICATIONS: At home: 1. Tylenol. 2. Tekturna. 3. Amlodipine. 4. Aspirin. 5. Lipitor. 6 Zoloft 7. Carvedilol. 8. Cipro/dexamethasone eye drops. 9. Plavix. 10. Doxazosin. 11. Enbrel. 12. Hydralazine. 13. [place]. 14. Methadone 5 mg every 12 hours. 15. Omeprazole 20 mg at bedtime. 16. Prednisone taper. 17. Zofran. 18. Trazodone. ALLERGIES: TAPE and CODEINE. FAMILY HISTORY: Polycystic kidney disease and coronary artery disease. SOCIAL HISTORY: Resides at [facility]. REVIEW OF SYSTEMS: The patient is a poor historian. Denied chest pain, shortness of breath, headaches, chest pain, palpitations, urinary complaints, skin rash, allergies at the time of evaluation. PHYSICAL EXAM: Frail-appearing thin female, in no apparent distress. Vital Signs: Temperature 98.2, pulse 90 beats per minute, respiratory rate 20 per minute, O2 sat 100% on 4 to 6 L, blood pressure 117/65. HEENT: Pupils equal and reactive to light. Neck: Supple. Respiratory: Diminished air entry bilaterally, crackles at bases. Cardiovascular: S1, S2 present. Regular. Abdomen: Soft, nontender, nondistended. Bowel sounds present. Extremities: No edema. Skin: No rash or bruises, right subclavian hemodialysis catheter in place. Skin looks clean. Neurologic: Alert, awake, oriented x3. No focal deficits are obvious. DIAGNOSTIC STUDIES/LAB DATA: WBC count 7.4, hemoglobin 11.2, hematocrit 36, platelet count 143,000. Blood gas analysis on admission showed evidence of severe respiratory acidosis, improved significantly with BiPAP. Sodium 134, potassium 4.8, chloride 101, bicarb 30, BUN 25, creatinine 3.02 consistent with end-stage renal disease. Chest x-ray on admission was personally reviewed by me - evidence of pulmonary vascular congestion and pleural effusions bilaterally, slightly increased on left side. CT of the brain as described above in HPI. IMPRESSION/RECOMMENDATIONS: 57-year-old female, nonsmoker with evidence of severe kyphoscoliosis, on narcotics and pain medications for chronic pain, admitted with hypercapnic respiratory failure. Hypercapnic respiratory failure, likely combination of narcotic medications in the setting of restrictive lung disease from neuromuscular issue - kyphoscoliosis. The patient is a nonsmoker with no history of COPD. The patient would benefit from noninvasive ventilation. She was tried on BiPAP, reported not being able to get enough air on lower settings, reported discomfort with higher settings. Might tolerate auto settings better. Also recommend reevaluation of her pain medications and possibly avoiding narcotic medication. She also has component of fluid overload in the setting of end-stage renal disease and diastolic dysfunction. She could not complete dialysis session today and might need to increase the duration of dialysis for adequate fluid removal. The patient will need to be discharged on BiPAP. Thank you for allowing me to participate in the care of your patient. Will follow up with you. [id number]/ANANHT #: [id number]
[2018-04-23] MEDS: Mometasone/Formoter 200/5 MDI INH SCH ×2 (07:37→19:30)
[2018-04-23] MEDS: hydrALAZINE TAB* 100 MG ** ONE HUNDRED PO SCH ×3 (08:16→21:42)
[2018-04-23] MEDS: amLODIPine TAB* 5 MG PO SCH (08:17)
[2018-04-23] MEDS: Sertraline* 50 MG TAB PO SCH (08:17)
[2018-04-23] MEDS: Aspirin EC TAB* 81 MG TAB.EC PO SCH (08:18)
[2018-04-23] MEDS: predniSONE TAB* 10 MG PO SCH (08:18)
[2018-04-23] MEDS: Carvedilol TAB* 25 MG PO SCH ×2 (08:18→21:41)
[2018-04-23] MEDS: Calcitriol CAP* 0.25 MCG PO SCH (08:59)
[2018-04-23] MEDS: Aliskiren TAB* 300 MG PO SCH (09:00)
[2018-04-23] MEDS: Doxazosin TAB* 2 MG PO SCH (09:00)
[2018-04-23] MEDS: Albuterol/Ipratropium NEB.SOL* Albuterol 2.5 MG/Ipratropium 0.5 MG 3 ML INH SCH ×2 (13:03→19:29)
--- NOTE | 2018-04-23 13:50 | PN ---
Subjective Date of Service: 04/23/18 Interval History: Pt is seen during another "anxiety attack". c/o feeling anxious and SOB. O2 sat 96%, but very limited air entry on auscultation Objective Active Medications: Acetaminophen (Tylenol Tab*) 650 mg PO Q4H PRN PRN Reason: FEVER/PAIN Albuterol (Ventolin 2.5 Mg/3 Ml Neb.Francy*) 2.5 mg INH Q2H PRN PRN Reason: SOB/WHEEZING Albuterol/Ipratropium (Duoneb (Albuterol 2.5 Mg/Ipratropium 0.5 Mg)) 1 neb INH [id number] AWAKE [facility] Last Admin: 04/23/18 13:03 Dose: 1 neb Aliskiren (Tekturna Tab*) 300 mg PO QAM [facility] Last Admin: 04/23/18 09:00 Dose: 300 mg Amlodipine Besylate (Norvasc Tab*) 10 mg PO QAM [facility] Last Admin: 04/23/18 08:17 Dose: 10 mg Aspirin (Aspirin Ec Tab*) 81 mg PO QAM [facility] Last Admin: 04/23/18 08:18 Dose: 81 mg Atorvastatin Calcium (Lipitor*) 20 mg PO BEDTIME [facility] Last Admin: 04/22/18 20:22 Dose: 20 mg Calcitriol (Rocaltrol Cap*) 0.25 mcg PO QAM [facility] Last Admin: 04/23/18 08:59 Dose: 0.25 mcg Carvedilol (Coreg Tab*) 25 mg PO BID [facility] Last Admin: 04/23/18 08:18 Dose: 25 mg Clopidogrel Bisulfate (Plavix Tab*) 75 mg PO BEDTIME [facility] Last Admin: 04/22/18 20:20 Dose: 75 mg Doxazosin Mesylate (Cardura Tab*) 4 mg PO DAILY [facility] Last Admin: 04/23/18 09:00 Dose: 4 mg Heparin Sodium (Porcine) (Heparin Vial(*)) 5,000 units SUBCUT Q8HR [facility] Last Admin: 04/23/18 05:21 Dose: 5,000 units Hydralazine HCl (Apresoline Tab*) 100 mg PO TID [facility] Last Admin: 04/23/18 08:16 Dose: 100 mg Hydroxyzine HCl (Atarax Tab*) 10 mg PO Q6H PRN PRN Reason: ANXIETY Last Admin: 04/22/18 21:30 Dose: 10 mg Mometasone Furoate/Formoterol Fumar (Dulera 200/5 Mdi*) 2 puff INH BID [facility] Last Admin: 04/23/18 07:37 Dose: 2 puff Pantoprazole Sodium (Protonix Tab (Nf)) 40 mg PO BEDTIME [facility] Last Admin: 04/22/18 20:22 Dose: 40 mg Prednisone (Deltasone Tab*) 20 mg PO DAILY [facility] Stop: 04/24/18 09:01 Last Admin: 04/23/18 08:18 Dose: 20 mg Prednisone (Deltasone Tab*) 10 mg PO DAILY [facility] Stop: 04/27/18 09:01 Prednisone (Deltasone Tab*) 5 mg PO DAILY [facility] Stop: 04/30/18 09:01 Sertraline HCl (Zoloft*) 50 mg PO QAM [facility] Last Admin: 04/23/18 08:17 Dose: 50 mg Vital Signs - 8 hr 04/23/18 04/23/18 04/23/18 06:21 07:31 13:04 Temperature 98.3 F Pulse Rate 86 76 Respiratory 30 18 Rate Blood Pressure 176/88 (mmHg) O2 Sat by Pulse 91 97 96 Oximetry Oxygen Devices in Use Now: Nasal Cannula Appearance: 57 yo F, appears older than stated age, anxious, AAOx3. thin body habitus Eyes: No Scleral Icterus, PERRLA Ears/Nose/Mouth/Throat: NL Teeth, Lips, Gums, Mucous Membranes Moist Neck: NL Appearance and Movements; NL JVP, Trachea Midline Respiratory: Symmetrical Chest Expansion and Respiratory Effort, - - barrel chest, very decreased breath sounds b/l, no wheezes, prolonged exp phase Cardiovascular: NL Sounds; No Murmurs; No JVD Abdominal: NL Sounds; No Tenderness; No Distention Lymphatic: No Cervical Adenopathy Extremities: No Edema, No Clubbing, Cyanosis Skin: No Nodules or Sclerosis Neurological: Alert and Oriented x 3, NL Muscle Strength and Tone - Nutrition: Malnutrition Diagnosis/Plan Malnutrition Assessment by Registered Dietitian: Malnutrition Assessment Clinical Characteristics Chronic,Severe Malnutrition Assessment: - severe temporal and clavicle muscle wasting Criteria - severe buccal fat pad wasting * note BMI <18.5 Malnutrition Assessment: 1. thickened liquids offered since 04/14. Interventions Suggest swallow eval per SUPERVISING NURSE. 2. regular diet, no restrictions 3. mid-afternoon snack as desired PB&J sandwich (no crust) + chocolate milk (~500 kcals, 18 g prot) 4. daily additions to breakfast tray hard boiled egg and peanut butter x2 (325 kcals , 12 g prot) 5. NO liquid supplements per pt preference Malnutrition Assessment: Goals 1. Adequate po intake to replete lean body mass in the setting of malnutrition 2. Appropriate fluid/electrolyte balance in the setting of ESRD on HD w/o further dietary restriction 3. Achieve bowel regularity w/ adequate po intake w/o diarrhea or constipation Result Diagrams: 04/22/18 05:44 04/22/18 05:44 Assess/Plan/Problems-Billing Assessment: Ms. Charles is a 57 yo female with PMH significant for ESRD on hemodialysis, CAD, severe kyphosis who presented to the emergency room from her discharge on the same day after 8 days of hospital stay for acute resp failure. Pt was noted to have hypercapnia again - Patient Problems (1) Acute hypercapnic respiratory failure Comment: I suspect pt will need BIPAP/CPAP whenever she is asleep, but overnight pulse ox shows desats for only 2 min cont 02 at 2-3 L at baseline (2) CAD (coronary artery disease) Comment: -Continue ASA, Plavix, statins, and Carvedilol (3) Chronic pain Comment: methadone and Hydrocodone PRN on hold due to lethargy at admission (4) End stage renal failure on dialysis Comment: Related to polycystic kidney disease MWF HD Lytes okay Volume okay (5) COPD (chronic obstructive pulmonary disease) Comment: - appears in exacerbation today. will start scheduled dounebs - With Chronic hypoxic respiratory failure, was dx with exacerbation during previous hospital admission, cont Prednisone taper as scheduled - Continue supplemental O2 (6) HTN (hypertension) Comment: -Continue Amlodipine, Aliskiren,Carvedilol and Doxazosin (7) DVT prophylaxis Comment: -Continue SCDs -Placed on Heparin SQ Status and Disposition: Inpatient
[2018-04-23] MEDS ORDERED: Heparin DIALYSIS ONLY(*) 1,000 UNITS/ML VIAL DIALYSIS ONE (16:00)
[2018-04-23] MEDS: Atorvastatin* 20 MG TAB PO SCH (21:41)
[2018-04-23] MEDS: Clopidogrel TAB* 75 MG PO SCH (21:42)
[2018-04-23] MEDS: CMCS:Pantoprazole TAB (NF) 40 MG TAB PO SCH (21:42)
[2018-04-24] MEDS: Albuterol/Ipratropium NEB.SOL* Albuterol 2.5 MG/Ipratropium 0.5 MG 3 ML INH SCH ×2 (01:27→07:27)
[2018-04-24] MEDS: Heparin VIAL(*) 5000 UNITS/ML VIAL (FIVE THOUSAND) SUBCUT SCH ×3 (05:33→21:52)
[2018-04-24] MEDS ORDERED: Albuterol/Ipratropium NEB.SOL* Albuterol 2.5 MG/Ipratropium 0.5 MG 3 ML INH PRN (07:25)
[2018-04-24] MEDS: Mometasone/Formoter 200/5 MDI INH SCH ×2 (07:27→20:36)
[2018-04-24] MEDS: Aliskiren TAB* 300 MG PO SCH (07:30)
[2018-04-24] MEDS: Doxazosin TAB* 2 MG PO SCH (07:31)
[2018-04-24] MEDS: Carvedilol TAB* 25 MG PO SCH ×2 (07:31→21:50)
[2018-04-24] MEDS: amLODIPine TAB* 5 MG PO SCH (07:31)
[2018-04-24] MEDS: predniSONE TAB* 10 MG PO SCH (07:31)
[2018-04-24] MEDS: Sertraline* 50 MG TAB PO SCH (07:31)
[2018-04-24] MEDS: hydrALAZINE TAB* 100 MG ** ONE HUNDRED PO SCH ×3 (07:31→21:49)
[2018-04-24] MEDS: Calcitriol CAP* 0.25 MCG PO SCH (07:31)
[2018-04-24] MEDS: Aspirin EC TAB* 81 MG TAB.EC PO SCH (07:32)
--- NOTE | 2018-04-24 12:55 | PN ---
Subjective Date of Service: 04/24/18 Interval History: pt feels well. SOB improved. some abd cramping noted. Las BM yesterday Objective Active Medications: Acetaminophen (Tylenol Tab*) 650 mg PO Q4H PRN PRN Reason: FEVER/PAIN Albuterol (Ventolin 2.5 Mg/3 Ml Neb.Francy*) 2.5 mg INH Q2H PRN PRN Reason: SOB/WHEEZING Albuterol/Ipratropium (Duoneb (Albuterol 2.5 Mg/Ipratropium 0.5 Mg)) 1 neb INH Q4H PRN PRN Reason: SOB/WHEEZING Aliskiren (Tekturna Tab*) 300 mg PO QAM [facility] Last Admin: 04/24/18 07:30 Dose: 300 mg Amlodipine Besylate (Norvasc Tab*) 10 mg PO QAM [facility] Last Admin: 04/24/18 07:31 Dose: 10 mg Aspirin (Aspirin Ec Tab*) 81 mg PO QAM [facility] Last Admin: 04/24/18 07:32 Dose: 81 mg Atorvastatin Calcium (Lipitor*) 20 mg PO BEDTIME [facility] Last Admin: 04/23/18 21:41 Dose: 20 mg Calcitriol (Rocaltrol Cap*) 0.25 mcg PO QAM [facility] Last Admin: 04/24/18 07:31 Dose: 0.25 mcg Carvedilol (Coreg Tab*) 50 mg PO BID [facility] Last Admin: 04/24/18 07:31 Dose: 50 mg Clopidogrel Bisulfate (Plavix Tab*) 75 mg PO BEDTIME [facility] Last Admin: 04/23/18 21:42 Dose: 75 mg Doxazosin Mesylate (Cardura Tab*) 4 mg PO DAILY [facility] Last Admin: 04/24/18 07:31 Dose: 4 mg Heparin Sodium (Porcine) (Heparin Vial(*)) 5,000 units SUBCUT Q8HR [facility] Last Admin: 04/24/18 05:33 Dose: 5,000 units Hydralazine HCl (Apresoline Tab*) 100 mg PO TID [facility] Last Admin: 04/24/18 07:31 Dose: 100 mg Hydroxyzine HCl (Atarax Tab*) 10 mg PO Q6H PRN PRN Reason: ANXIETY Last Admin: 04/22/18 21:30 Dose: 10 mg Mometasone Furoate/Formoterol Fumar (Dulera 200/5 Mdi*) 2 puff INH BID [facility] Last Admin: 04/24/18 07:27 Dose: 2 puff Pantoprazole Sodium (Protonix Tab (Nf)) 40 mg PO BEDTIME [facility] Last Admin: 04/23/18 21:42 Dose: 40 mg Prednisone (Deltasone Tab*) 10 mg PO DAILY [facility] Stop: 04/27/18 09:01 Prednisone (Deltasone Tab*) 5 mg PO DAILY [facility] Stop: 04/30/18 09:01 Sertraline HCl (Zoloft*) 50 mg PO QAM [facility] Last Admin: 04/24/18 07:31 Dose: 50 mg Vital Signs - 8 hr 04/24/18 04/24/18 04/24/18 07:22 07:49 08:00 Temperature 98.2 F Pulse Rate 74 76 Respiratory 16 18 18 Rate Blood Pressure 181/83 (mmHg) O2 Sat by Pulse 100 100 Oximetry 04/24/18 10:08 Temperature Pulse Rate Respiratory Rate Blood Pressure (mmHg) O2 Sat by Pulse 100 Oximetry Oxygen Devices in Use Now: Nasal Cannula Appearance: 57 yo F in nAD, aAOx3, thin body habitus, appears older than age Eyes: No Scleral Icterus, PERRLA Ears/Nose/Mouth/Throat: NL Teeth, Lips, Gums, Mucous Membranes Moist Neck: NL Appearance and Movements; NL JVP, Trachea Midline Respiratory: Symmetrical Chest Expansion and Respiratory Effort, - - barrel chest, grossly clear b/l Cardiovascular: NL Sounds; No Murmurs; No JVD, RRR Abdominal: No Hepatosplenomegaly, - - mild distention noted, tympanic, NT, BS+ Extremities: No Edema Skin: No Rash or Ulcers, No Nodules or Sclerosis Neurological: Alert and Oriented x 3, NL Muscle Strength and Tone - Nutrition: Malnutrition Diagnosis/Plan Malnutrition Assessment by Registered Dietitian: Malnutrition Assessment Clinical Characteristics Chronic,Severe Malnutrition Assessment: - severe temporal and clavicle muscle wasting Criteria - severe buccal fat pad wasting * note BMI <18.5 Malnutrition Assessment: 1. thickened liquids offered since 04/14. Interventions Suggest swallow eval per PST SPECIALIST. 2. regular diet, no restrictions 3. mid-afternoon snack as desired PB&J sandwich (no crust) + chocolate milk (~500 kcals, 18 g prot) 4. daily additions to breakfast tray hard boiled egg and peanut butter x2 (325 kcals , 12 g prot) 5. NO liquid supplements per pt preference Malnutrition Assessment: Goals 1. Adequate po intake to replete lean body mass in the setting of malnutrition 2. Appropriate fluid/electrolyte balance in the setting of ESRD on HD w/o further dietary restriction 3. Achieve bowel regularity w/ adequate po intake w/o diarrhea or constipation Result Diagrams: 04/22/18 05:44 04/22/18 05:44 Assess/Plan/Problems-Billing Assessment: Ms. Charles is a 57 yo female with PMH significant for ESRD on hemodialysis, CAD, severe kyphosis who presented to the emergency room from her discharge on the same day after 8 days of hospital stay for acute resp failure. Pt was noted to have hypercapnia again - Patient Problems (1) Acute hypercapnic respiratory failure Comment: Pt had not been tolerating BIPAP. Is on her baseline 02 now. Much better once off narcotics. As per d/w son pt had her hypercapnea episodes when she was given either benzodizepines or narcotics ans her son is requesting not to give pt narcotics unless necessary. she is doing OK without any sedatives now. cont 02 at 2-3 L at baseline (2) CAD (coronary artery disease) Comment: -Continue ASA, Plavix, statins, and Carvedilol (3) Chronic pain Comment: methadone and Hydrocodone PRN on hold due to lethargy at admission (4) End stage renal failure on dialysis Comment: Related to polycystic kidney disease MWF HD Lytes okay Volume okay (5) COPD (chronic obstructive pulmonary disease) Comment: - improved today, scheduled dounebs - With Chronic hypoxic respiratory failure, was dx with exacerbation during previous hospital admission, cont Prednisone taper as scheduled - Continue supplemental O2 (6) HTN (hypertension) Comment: -Continue Amlodipine, Aliskiren,Carvedilol and Doxazosin SBP in 180 this am before medications given and now down to 108. (7) DVT prophylaxis Comment: -Continue SCDs -Placed on Heparin SQ Status and Disposition: Inpatient, plan to d/c to [place] tomorrow
--- NOTE | 2018-04-24 13:52 | PN ---
Progress Note - Progress Note Date of Service: 04/24/18 - Pulm f/u note Note: Pt seen and examined at bedside. Pt sitting up in chair and eating lunch. Denies any issues. Active Medications Generic Name Dose Route Start Last Admin Trade Name Freq PRN Reason Stop Dose Admin Acetaminophen 650 mg 04/21/18 20:41 Tylenol Tab* PO Q4H PRN FEVER/PAIN Albuterol 2.5 mg 04/21/18 20:49 Ventolin 2.5 Mg/3 Ml Neb.Francy* INH Q2H PRN SOB/WHEEZING Albuterol/Ipratropium 1 neb 04/24/18 07:25 Duoneb (Albuterol 2.5 Mg/Ipratropium 0.5 Mg) INH Q4H PRN SOB/WHEEZING Aliskiren 300 mg 04/22/18 09:00 04/24/18 07:30 Tekturna Tab* PO 300 mg QAM GUY Administration Amlodipine Besylate 10 mg 04/22/18 09:00 04/24/18 07:31 Norvasc Tab* PO 10 mg QAM GUY Administration Aspirin 81 mg 04/22/18 09:00 04/24/18 07:32 Aspirin Ec Tab* PO 81 mg QAM GUY Administration Atorvastatin Calcium 20 mg 04/21/18 21:00 04/23/18 21:41 Lipitor* PO 20 mg BEDTIME GUY Administration Calcitriol 0.25 mcg 04/22/18 09:00 04/24/18 07:31 Rocaltrol Cap* PO 0.25 mcg QAM GUY Administration Carvedilol 50 mg 04/23/18 21:00 04/24/18 07:31 Coreg Tab* PO 50 mg BID GUY Administration Clopidogrel Bisulfate 75 mg 04/21/18 21:00 04/23/18 21:42 Plavix Tab* PO 75 mg BEDTIME GUY Administration Doxazosin Mesylate 4 mg 04/22/18 09:00 04/24/18 07:31 Cardura Tab* PO 4 mg DAILY GUY Administration Heparin Sodium (Porcine) 5,000 units 04/21/18 22:00 04/24/18 05:33 Heparin Vial(*) SUBCUT 5,000 units Q8HR GUY Administration Hydralazine HCl 100 mg 04/21/18 21:00 04/24/18 07:31 Apresoline Tab* PO 100 mg TID GUY Administration Hydroxyzine HCl 10 mg 04/22/18 13:30 04/22/18 21:30 Atarax Tab* PO 10 mg Q6H PRN Administration ANXIETY Mometasone Furoate/Formoterol Fumar 2 puff 04/21/18 21:00 04/24/18 07:27 Dulera 200/5 Mdi* INH 2 puff BID GUY Administration Pantoprazole Sodium 40 mg 04/21/18 21:00 04/23/18 21:42 Protonix Tab (Nf) PO 40 mg BEDTIME GUY Administration Prednisone 10 mg 04/25/18 09:00 Deltasone Tab* PO 04/27/18 09:01 DAILY GUY Prednisone 5 mg 04/28/18 09:00 Deltasone Tab* PO 04/30/18 09:01 DAILY GUY Sertraline HCl 50 mg 04/22/18 09:00 04/24/18 07:31 Zoloft* PO 50 mg QAM GUY Administration Vital Signs Temp Pulse Resp BP Pulse Ox 97.1 F 75 14 107/61 100 04/24/18 13:50 04/24/18 13:50 04/24/18 13:50 04/24/18 13:50 04/24/18 13:50 O/E: Pt in NAD, sitting up in chair HEENT: PERRLA Lungs: Diminished air entry b/l Lungs: Distant breath sounds, no wheeze CVS: S1, S2+, regular Abd: Soft, BS+ Musculoskeletal: Normal ROM, kyphosis Skin: NO rash Neuro: No focal deficits Labs: No new labs I/R: 57 yo female with PMH significant for ESRD on hemodialysis, CAD, severe kyphosis who presented to the emergency room on same day after 8 days of hospital stay for acute hypercapnic resp failure with AMS found to have hypercapnia, pt improved with BiPAP. Hypercapnic resp failure likely sec to narcotics in setting of COPD and kyposcoliosis Pt at [facility] currently Resp status stable c/w bronchodilators Pt not in favor of NIPPV Avoid narcotics, sedatives Aspiration and fall precautions D/w Dr Vizcarra
[2018-04-24] MEDS: Acetaminophen TAB* 325 MG PO PRN ×2 (14:58→23:25)
[2018-04-24] MEDS: hydrOXYzine HCL TAB* 10 MG PO PRN (14:58)
[2018-04-24] MEDS: Atorvastatin* 20 MG TAB PO SCH (21:49)
[2018-04-24] MEDS: CMCS:Pantoprazole TAB (NF) 40 MG TAB PO SCH (21:49)
[2018-04-24] MEDS: Clopidogrel TAB* 75 MG PO SCH (21:50)
[2018-04-25] MEDS: hydrOXYzine HCL TAB* 10 MG PO PRN (00:13)
[2018-04-25] MEDS: Heparin VIAL(*) 5000 UNITS/ML VIAL (FIVE THOUSAND) SUBCUT SCH ×2 (05:26→15:43)
[2018-04-25] MEDS: Mometasone/Formoter 200/5 MDI INH SCH (07:20)
[2018-04-25 07:55] LABS: EGFR Non-African American 12.4 (>60)
[2018-04-25] MEDS ORDERED: predniSONE TAB* 10 MG PO SCH (09:00)
[2018-04-25 09:19] VITALS: BP 144/55
[2018-04-25] MEDS: Aspirin EC TAB* 81 MG TAB.EC PO SCH (09:29)
[2018-04-25] MEDS: amLODIPine TAB* 5 MG PO SCH (09:29)
[2018-04-25] MEDS: Aliskiren TAB* 300 MG PO SCH (09:30)
[2018-04-25] MEDS: Calcitriol CAP* 0.25 MCG PO SCH (09:30)
[2018-04-25] MEDS: Carvedilol TAB* 25 MG PO SCH (09:30)
[2018-04-25] MEDS: Sertraline* 50 MG TAB PO SCH (09:30)
[2018-04-25] MEDS: Doxazosin TAB* 2 MG PO SCH (09:30)
[2018-04-25] MEDS: hydrALAZINE TAB* 100 MG ** ONE HUNDRED PO SCH ×2 (09:30→15:43)
[2018-04-25] MEDS ORDERED: Heparin DIALYSIS ONLY(*) 1,000 UNITS/ML VIAL DIALYSIS ONE (12:00)
[2018-04-25] MEDS: Acetaminophen TAB* 325 MG PO PRN (13:12)
[2018-04-25] MEDS ORDERED: Ondansetron ODT TAB* 4 MG PO ONE (13:16)
--- NOTE | 2018-04-25 14:30 | DS ---
CC: Dr. Letty Duffy; Dr. Bianchi; Dr. Patel from [facility] * DISCHARGE SUMMARY: DATE OF ADMISSION: 04/21/18 DATE OF DISCHARGE/TRANSFER: Back to [facility], 04/25/18. PRIMARY CARE PROVIDER: Dr. Letty Duffy. DISCHARGE DIAGNOSIS: Altered mental status due to acute hypercapnic respiratory failure, likely related to narcotics. SECONDARY DIAGNOSES: 1. History of end-stage renal disease secondary to polycystic kidney disease, on dialysis. 2. Hypertension. 3. Cardiomyopathy with EF in November of 2017 of 50%. 4. History of diastolic dysfunction and pulmonary hypertension. 5. History of chronic obstructive pulmonary disease with recent exacerbation and chronic oxygen use at 2 to 3 L. 6. History of cerebrovascular accident, ischemic. 7. Rheumatoid arthritis. 8. Depression. 9. The patient is status post tunneled dialysis catheter placed in her right subclavian area. MEDICATIONS AT DISCHARGE: Include: 1. Acetaminophen on a p.r.n. basis. 2. Tekturna 300 mg daily. 3. Norvasc 10 mg daily. 4. Aspirin 81 mg daily. 5. Lipitor 20 mg at bedtime. 6. Calcitriol 0.25 mcg q.a.m. 7. Ciprodex otic suspension 1 drop bilaterally to both ears b.i.d. p.r.n. 8. Plavix 75 mg at bedtime. 9. Enbrel 25 mg subcutaneously weekly as previously prescribed. 10. Omeprazole 20 mg at bedtime. 11. Zofran 4 mg on a p.r.n. basis. 12. Zoloft 50 mg q.a.m. 13. DuoNeb every 4 hours p.r.n. 14. Coreg 50 mg twice a day. 15. Cardura 4 mg daily. 16. Advair 250/50 one puff inhalation b.i.d. 17. Hydralazine 100 mg 3 times a day. 18. Hydroxyzine/Atarax 10 mg every 6 hours p.r.n. 19. Prednisone 5 mg daily for 4 days, then stop. The patient is asked to abstain from narcotics and benzodiazepine since they have very sedating effect on the patient and caused hypercapnic respiratory failure. LABORATORY DATA AND STUDIES PERFORMED DURING THE HOSPITAL STAY: Included on , white blood cell count of 7.4, hemoglobin of 11.2, hematocrit of 36, and platelets of 143. Sodium 137, potassium 4.9, chloride 101, carbon dioxide 30, BUN of 37, creatinine 3.76. Troponin was 0.02 at admission. C-reactive protein was 1.2 at admission. TSH was 2.16 at admission. Overnight pulse oximetry reported on the night of 04/24/18 showed the longest continuous time with saturation of below 89% was 12 minutes and 28 seconds. O2 sats below 88% were at total of 41 minutes and 16 seconds and that accounted for 7.7%. HOSPITALIZATION COURSE: Beth Charles is a 57-year-old female, chronically ill, on dialysis after renal failure for polycystic kidney disease. The patient has also history of COPD and is oxygen dependent. She is a resident at [facility]. Please note that the patient had hospitalization from 04/13/18 to 04/21/18 and please refer to Dr. Smith' discharge summary dictated on 04/21/18 for details. Shortly, the patient suffered from respiratory failure that was thought to be multifactorial due to CHF and COPD exacerbation as well as polypharmacy. The patient was discharged on 04/21/18 to go to dialysis and from dialysis, she was supposed to go back to [facility]. Unfortunately, during dialysis she became basically unresponsive and was diagnosed with hypercapnic respiratory failure. Please also note that prior to dialysis, she received a dose of Moca and methadone. She was readmitted on the same day as discharged and admitted to the intensive care unit for BiPAP treatment. On BiPAP, she gradually improved and within a couple of days, she was transferred back to medical floor. It became apparent that once she is off her narcotics and off her trazodone, her mental state markedly improved. We did place in for overnight pulse oximetry and the second time she did qualify for CPAP/BiPAP. That is to be arranged at the retirement. Nevertheless, the patient had done very well on oxygen at 2 to 3 L and had no further episodes of hypercapnia during the remainder of her hospital stay. I discussed the patient's presentation with her son, who noted that the patient is very sensitive to benzodiazepines as well as narcotics and wishes for the patient not to have any of the group of medications unless absolutely necessary. Please note that the patient did very well without the narcotics and benzodiazepines and did not require any further pain management apart from Tylenol. She did complain of feeling anxious occasionally and Atarax that used to be prescribed for the patient was restarted with good results and no evidence of sedation. PHYSICAL EXAMINATION: At the time of discharge, blood pressure of 124/55, heart rate of 67 and regular, respiratory rate 19, oxygen saturation 99% on 2 L of oxygen via nasal cannula, temperature 97.8. General: The patient is a pleasant 57-year- old female, who appears older than stated age with very thin body habitus, in no acute distress. The patient is alert and oriented x3. HEENT: Head: Atraumatic, normocephalic. Eyes: Pupils are equal, reactive to light and accommodation. Oropharynx is clear. Mucosa moist. Neck: Supple. No JVD. No bruits bilaterally. Cardiovascular: Regular rate and rhythm. No murmur. Respiratory: Distant breath sounds bilaterally. No wheezes. Abdomen: Soft, nontender. Bowel sounds are present in all 4 quadrants. Extremities: There is no edema. Pulses are +2 bilaterally. No clubbing or cyanosis. On neuro evaluation, speech is clear. Cranial nerves II through XII are grossly intact. Motor strength is 5/5 bilaterally. On evaluation of the skin, the patient has right subclavian tunneled catheter in place with no evidence of skin infection. The patient is being transferred to [facility] today for further rehabilitation. She is to continue on oxygen at 2 L continuously. She is to avoid narcotics and benzodiazepines. [id number]/[facility] #: [id number] [facility] H[facility]PITALRenee
[2018-04-28] MEDS ORDERED: predniSONE TAB* 5 MG PO SCH (09:00)
== END 2018-04-25 16:00 | DRG 189 ==
LOC: ED 15:59 → ICU 20:31 → MED 04-22 15:19
PROVIDERS: ADMIT Pediatrics; ATTEND Internal Medicine
PROC: 5A09357 Assistance with Respiratory Ventilation, Less than 24 Consecutive Hours, Continuous Positive Airway Pressure (ICD-10-PCS; principal; 2018-04-21)
PROC: 5A1D70Z Performance of Urinary Filtration, Intermittent, Less than 6 Hours Per Day (ICD-10-PCS; 2018-04-23)
PROC: 5A1D70Z Performance of Urinary Filtration, Intermittent, Less than 6 Hours Per Day (ICD-10-PCS; 2018-04-23)
DX: J96.22 Acute and chronic respiratory failure with hypercapnia (principal); N18.6 End stage renal disease; 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 disease with heart failure and with stage 5 chronic kidney disease, or end stage renal disease; Q61.3 Polycystic kidney, unspecified; J44.1 Chronic obstructive pulmonary disease with (acute) exacerbation; I42.9 Cardiomyopathy, unspecified; I50.30 Unspecified diastolic (congestive) heart failure; E87.2 Acidosis; T40.605A Adverse effect of unspecified narcotics, initial encounter; I27.20 Pulmonary hypertension, unspecified; M06.9 Rheumatoid arthritis, unspecified; F32.9 Major depressive disorder, single episode, unspecified; Z66 Do not resuscitate; D64.9 Anemia, unspecified; I25.10 Atherosclerotic heart disease of native coronary artery without angina pectoris; E78.00 Pure hypercholesterolemia, unspecified; K21.9 Gastro-esophageal reflux disease without esophagitis; F41.9 Anxiety disorder, unspecified; G89.29 Other chronic pain; M41.9 Scoliosis, unspecified; E87.70 Fluid overload, unspecified; Z88.5 Allergy status to narcotic agent; Z88.8 Allergy status to other drugs, medicaments and biological substances; Z99.2 Dependence on renal dialysis; Y92.9 Unspecified place or not applicable; Z99.81 Dependence on supplemental oxygen; Z86.73 Personal history of transient ischemic attack (TIA), and cerebral infarction without residual deficits; Z91.048 Other nonmedicinal substance allergy status; Z84.1 Family history of disorders of kidney and ureter; Z87.891 Personal history of nicotine dependence; Z79.02 Long term (current) use of antithrombotics/antiplatelets
CPT/HCPCS: 36415; 36600; 70450; 71045; 80048; 80053; 82803; 83605; 83735; 83880; 84443; 84484; 85025; 85610; 86140; 93005; 94640; 94660; 94762; 99285; A9270-GY; J1644; J2310; J7512

== ENCOUNTER → 2018-05-23 10:28 | Day surgery (SDC) | payer MEDICARE, MEDICAID ==
--- NOTE | 2018-04-08 06:41 | HP ---
HISTORY AND PHYSICAL: DATE OF ADMISSION: 04/18/18 CHIEF COMPLAINT: End-stage renal disease. HISTORY OF PRESENT ILLNESS: The patient is a 57-year-old female being admitted to the hospital for placement of a left arteriovenous dialysis graft for hemodialysis. The patient has had end-stage renal disease for over 20 years and she has been most of that time undergoing dialysis via peritoneal dialysis, but it was not working and approximately 6 months ago was switched to hemodialysis via temporary right internal jugular catheter that is currently in use. PAST MEDICAL HISTORY: Remarkable for hypertension, cardiomyopathy, congestive heart failure, atherosclerotic heart disease, cerebrovascular disease, history of polycystic kidneys, osteoarthritis, COPD. CURRENT MEDICATIONS: Include: 1. Aliskiren fumarate. 2. Aspirin 81 mg daily. 3. Atorvastatin 20 mg p.o. daily. 4. Bactroban nasal 2%. 5. Clopidogrel 75 mg p.o. daily. 6. Coreg CR 50 mg p.o. daily. 7. Enbrel 25 mg/0.5 mL. 8. Hydroxyzine 10 mg p.o. t.i.d. 9. Methadone 5 mg p.o. daily. 10. [place] 5/325 one tablet p.o. q.6 hours p.r.n. for pain. 11. Norvasc 10 mg p.o. daily. 12. Omeprazole 20 mg p.o. daily. 13. Rocaltrol 0.25 mcg p.o. daily. 14. Sertraline 50 mg p.o. daily. 15. Tylenol 325 mg every 4 hours as needed. 16. Zofran 4 mg p.o. every 6 hours as needed. ALLERGIES: The patient is allergic to CODEINE and ADHESIVES. SOCIAL HISTORY: The patient is a smoker. She is a resident of [facility]. REVIEW OF SYSTEMS: Contributory for: Head and Neck: Presence of hemodialysis catheter on the right internal jugular. Neurologic: History of strokes. 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 Cardiovascular: History of cardiomyopathy and congestive heart failure. Pulmonary: History of COPD. History of hypertension. Urinary: Polycystic kidneys. PHYSICAL EXAMINATION GENERAL: The patient is alert and oriented. She was brought in a wheelchair. HEAD AND NECK: Reveal the presence of a temporary dialysis catheter. No neck nodes or masses are noted. LUNGS: Clear to auscultation bilaterally. HEART: Regular. There is a systolic murmur 1/6. EXTREMITIES: Upper extremities: On the right upper extremity, there appears to be edema in comparison to the left. The brachial artery and radial and ulnar are palpable and strong. The veins are not visible in the arm and do not appear to be adequate in size for a [place] fistula. On the left arm, the patient has also excellent palpable pulses. No edema of the arms. Brachial, radial and ulnar are palpable. The veins are more visible, but still not adequate in size for a [place] fistula. There is edema on the right arm, none on the left. Mild edema on the lower extremities. DIAGNOSTIC STUDIES1: The patient underwent a vein and arterial mapping for dialysis in August of 2017 that revealed adequate size brachial veins and antecubital veins. Today, on exam in the office, an ultrasound of the left arm was done because of the edema. There is some edema. The veins appear to be larger and this may have to do with the presence of the temporary hemodialysis catheter into the right internal jugular that may be disturbing the flow from the right subclavian. This is not present on the left side. DIAGNOSTIC IMPRESSION: End-stage renal disease. PLAN: The plan is being admitted for placement of hemodialysis graft, in this case [place] graft on the left arm, which appears to be the nondominant arm and the one that has no edema. Although the patient is right handed, she has no use of the right hand. The patient understands the potential complications including but not exclusive of others such as infection, bleeding, bruising, edema, occlusion of the graft and revision. The patient understands, agrees and wishes to proceed. [id number]/[facility] #: [id number] [facility]ITAL[facility]ene[facility]
--- NOTE | 2018-05-09 07:58 | HP ---
HISTORY AND PHYSICAL: DATE OF ADMISSION/SURGERY: 05/23/18 She is scheduled for surgery at [facility] on 05/23/18. ATTENDING PROVIDER: Dr. Vega * (DICTATED BY MARIYA LUKE NP) CHIEF COMPLAINT: End-stage renal disease with hemodialysis and a right internal jugular catheter. HISTORY OF PRESENT ILLNESS: Beth Charles is a 57-year-old female who comes to [facility] for placement of the left arteriovenous dialysis graft for hemodialysis. She has had end-stage renal disease for over 20 years and has been undergoing dialysis via peritoneal dialysis, but it was not working and approximately 6 months ago, was switched to hemodialysis via temporary right internal jugular catheter that is currently in use. Dr. Vega has discussed the nature and course of an arteriovenous graft and has discussed the material risks and relevant alternatives to surgery. These were reviewed with the patient at her preoperative appointment including, but not limited to infection, bleeding, poor healing, occlusion. The patient has been given a chance to ask questions, and these have been answered. The patient will sign on admission an informed consent for left arm arteriovenous graft anastomosis. PAST MEDICAL HISTORY: Hypertension, cardiomyopathy, congestive heart failure, atherosclerotic heart disease, cerebrovascular disease, polycystic kidneys, osteoarthritis, COPD, depression, and anxiety. The patient was scheduled for surgery on 04/18/18. This was canceled because the patient was taken from [facility] where she is a resident to [facility] where she was found to be unresponsive at [facility]. She is not sure of the details of her admission, but the admission was caused by too much lorazepam. She had sustained several broken teeth from intubation. MEDICATIONS: 1. Amlodipine besylate 5 mg p.o. daily. 2. Aspirin 81 mg p.o. daily. 3. Atorvastatin calcium tablet 20 mg. 4. Calcitriol capsule 0.25 mcg p.o. 5. Carvedilol 50 mg 2 times a day. 6. Doxazosin mesylate tablet 4 mg p.o. 7. Enbrel solution reconstituted 25 mg, inject 25 mg subcutaneously every 7 days. 8. Hydralazine HCl tablet 100 mg, give 100 mg by mouth 3 times a day for CHF. 9. Hydroxyzine HCl tablet 10 mg p.o. p.r.n. 10. Ipratropium albuterol solution every 4 hours as needed. 11. Plavix 75 mg 1 tablet p.o. 12. Prilosec 20 mg p.o. 13. Tekturna tablet 300 mg 1 p.o. 14. Tylenol p.r.n. 15. Zofran p.r.n. 16. Zoloft 50 mg 1 tablet daily. 17. She has oxygen at 2 L. ALLERGIES: The patient is allergic to CODEINE, ADHESIVE, LORAZEPAM. SOCIAL HISTORY: The patient is a resident of [facility]. She has tobacco use history. REVIEW OF SYSTEMS: She has a right internal jugular hemodialysis catheter. She has a history of stroke and cardiomyopathy and congestive heart failure, COPD, hypertension, polycystic kidneys. She is unable to move fingers on her right hand. PHYSICAL EXAMINATION GENERAL: Beth Charles is a 57-year-old female, appears older than stated age. She is alert and oriented and brought in in a wheelchair with O2. VITAL SIGNS: 124/64, pulse is 80, respirations 18. CHEST: Lungs clear. HEART: Regular rate and rhythm. Systolic murmur /. IMPRESSION: End-stage renal disease with temporary dialysis catheter, history of peritoneal dialysis. PLAN: Left arm arteriovenous graft with anastomosis. MARIYA LUKE NP [id number]/[facility] #: [id number] MTDRenee
[~2018-05-23 10:28] MED LIST: Aspirin EC TAB* 81 MG TAB.EC PO SCH; Buffered Lidocaine 0.9% SYRIN* 5 ML/SYR SYRINGE INTRADERM ONE; Carvedilol TAB* 25 MG PO SCH; Dexamethasone IV* 4 MG/ML 1 ML (4 MG) ONE; Dexamethasone TAB* 4 MG PO ONE; DiMENhydriNATE IV* 50 MG/ML VIAL IV PUSH PRN; Doxazosin TAB* 2 MG PO SCH; Famotidine IV* 10 MG/ML 2 ML (20 mg) IV ONE; Famotidine IV* 10 MG/ML 2 ML (20 mg) ONE; Heparin 2 UNITS/ML IVPREMIX* 1,000 ML IV ONE; Lactated Ringers 1000 ML Bag* 1,000 ML IV SCH; Levalbuterol 0.63MG/3ML NEB* UNIT OF USE INH ONE; Midazolam* 1 MG/ML 5 ML VIAL (5 MG) ONE; Morphine VIAL* 4 MG/ML VIAL (1 ml vial) IV PRN; NS 0.45% 1000 ML BAG* 1,000 ML IV SCH; Naloxone* 0.4 MG/ML 1 ML VIAL IV PRN; Ondansetron ODT TAB* 4 MG ONE; Ondansetron TAB* 4 MG PO ONE; PROCHLORPERAZINE INJ 5 MG/ML 2 ML VIAL IV PRN; amLODIPine TAB* 5 MG PO SCH; fentaNYL* 50 MCG/ML 2 ML VIAL (100 MCG VIAL) IV PRN; fentaNYL* 50 MCG/ML 2 ML VIAL (100 MCG VIAL) ONE; hydrALAZINE TAB* 100 MG ** ONE HUNDRED PO SCH; oxyCODONE/Acetamin 5/325 MG* TAB PO PRN
[2018-05-23 11:16] VITALS: BP 185/98
--- NOTE | 2018-05-23 14:28 | CONSULT ---
Review of Systems - Measurements Intake and Output: Intake and Output Last 24 Hours 05/21/18 05/22/18 05/23/18 05/24/18 06:59 06:59 06:59 06:59 Weight 112 lb Objective Active Medications: Amlodipine Besylate (Norvasc Tab*) 5 mg PO DAILY [facility] Last Admin: 05/23/18 12:38 Dose: 5 mg Aspirin (Aspirin Ec Tab*) 81 mg PO DAILY [facility] Last Admin: 05/23/18 12:38 Dose: 81 mg Carvedilol (Coreg Tab*) 50 mg PO DAILY [facility] Last Admin: 05/23/18 12:38 Dose: 50 mg Dexamethasone (Decadron Tab*) 8 mg PO ONCE ONE Stop: 05/23/18 06:01 Last Admin: 05/23/18 11:43 Dose: 8 mg Dimenhydrinate (Dramamine Iv*) 12.5 mg IV PUSH ONCE PRN PRN Reason: NAUSEA/VOMITING Doxazosin Mesylate (Cardura Tab*) 4 mg PO DAILY [facility] Last Admin: 05/23/18 12:39 Dose: 4 mg Famotidine (Pepcid Iv*) 20 mg IV ONCE ONE Stop: 05/23/18 06:01 Last Admin: 05/23/18 11:43 Dose: 20 mg Fentanyl Citrate (Fentanyl*) 20 mcg IV Q5M PRN PRN Reason: PAIN - MODERATE Hydralazine HCl (Apresoline Tab*) 100 mg PO DAILY [facility] Last Admin: 05/23/18 12:38 Dose: 100 mg Lactated Ringer's (Lactated Ringers 1000 Ml Bag*) 1,000 mls @ 125 mls/hr IV PER RATE [facility] Sodium Chloride (Ns 0.45% 1000 Ml Bag*) 1,000 mls @ 0 mls/hr IV KVO [facility] Last Admin: 05/23/18 11:30 Dose: 15 mls/hr Lidocaine/Sodium Bicarbonate (Buffered Lidocaine 0.9% Syrin*) 0.2 ml INTRADERM ONCE ONE Stop: 05/22/18 12:36 Last Admin: 05/23/18 11:30 Dose: 1 applic Morphine Sulfate (Morphine Vial*) 1 mg IV Q5M PRN PRN Reason: PAIN Naloxone HCl (Narcan*) 0.08 mg IV Q2M PRN PRN Reason: severe induced resp depression Ondansetron HCl (Zofran Tab*) 4 mg PO ONCE ONE Stop: 05/22/18 12:36 Last Admin: 05/23/18 11:43 Dose: 4 mg Oxycodone/Acetaminophen (Percocet 5/325 Tab*) 1 tab PO ONCE PRN PRN Reason: PAIN - MODERATE Prochlorperazine Edisylate (Compazine Inj*) 2.5 mg IV ONCE PRN PRN Reason: NAUSEA/VOMITING Vital Signs - 8 hr 05/23/18 11:13 Temperature 97.0 F Pulse Rate 61 Respiratory 22 Rate Blood Pressure 185/98 (mmHg) O2 Sat by Pulse 96 Oximetry Oxygen Devices in Use Now: Nasal Cannula Assessment/Plan - Billing Plan By Medical Problem: Please see dictated consult note.
--- NOTE | 2018-05-23 21:30 | CONS ---
MEDICAL CONSULTATION: DATE OF CONSULT: 05/23/18 HISTORY OF PRESENT ILLNESS: This 57-year-old woman presented to the presurgical area for elective left arm fistula for hemodialysis. She has polycystic kidney disease and has been getting hemodialysis through a temporary tunneled catheter for about 6 weeks. PAST MEDICAL HISTORY: She has a history of cardiomyopathy with diastolic dysfunction, the ejection fraction 50% to 55%. She has history of rheumatoid arthritis, hypertension, old CVA. MEDICATIONS: I have reviewed her MAR from [facility]. I note her clopidogrel has been held for about a week. She gets no narcotics. She does get sertraline 50 mg daily. She gets p.r.n. hydroxyzine. FAMILY HISTORY: Her father had polycystic kidney disease as well as coronary artery disease. SOCIAL HISTORY: She has been living at [facility]. She smoked only when she was a teenager. She does not abuse alcohol. Her surrogate decision maker is her son. REVIEW OF SYSTEMS: The patient told me she had a cough with some yellowish sputum for a couple of days. She has no chest pain. PHYSICAL EXAMINATION: She is a thin woman, who looks older than her stated age. Her temperature was 97.0, pulse 61, respirations 22, O2 sat 96%, blood pressure 185/98. She seemed to be sleeping most of the time. She did wake up easily to voice and responded appropriately, then seemed to go back to sleep. Respirations seemed a little bit labored. HEENT showed no signs of head trauma. There was JVD at 45 degrees. There was a tunneled catheter in her right neck and chest. There are mild rhonchi bilaterally and diminished air movement. Heart was regular without murmurs or rubs. Abdomen was soft. No mass, organomegaly, or tenderness. Bowel sounds were normal. There was trace pedal edema bilaterally. Skin was warm and dry and intact. There was no calf tenderness. Neurologic: She moved all limbs well. There was no tremor. ASSESSMENT AND PLAN: The patient was unable to lie flat and consequently could not have her AV fistula today. I have requested a blood gas, which is pending. She has had CO2 retention in the past. I would treat her with a 7-day course of doxycycline. I would give her 200 mg the first day followed by 100 mg daily for 6 days. I would decrease her sertraline from 50 mg daily to 25 mg daily and in a couple of weeks if there is no clear evidence of clinical benefit, consider stopping the sertraline completely. This may reduce her sedation. I discussed this with Dr. Patel. Blood gas is pending. If her CO2 retention has increased, limiting the oxygen supply more might be beneficial. My clinical impression is that she has mild acute bronchitis. She has chronic lung disease. She has evidence of fluid overload with JVD. I have spoken to the dialysis clinicn and Dr. Bianchi about trying to dialyze her to a lower weight. [id number]/[facility] #: [id number] [facility]
== END | disposition home or self-care (01) ==
LOC: OR 10:28
PROVIDERS: ATTEND Surgery
DX: N18.6 End stage renal disease (principal); Z53.09 Procedure and treatment not carried out because of other contraindication; J20.9 Acute bronchitis, unspecified; Q61.3 Polycystic kidney, unspecified; I42.9 Cardiomyopathy, unspecified; Z87.891 Personal history of nicotine dependence; I12.9 Hypertensive chronic kidney disease with stage 1 through stage 4 chronic kidney disease, or unspecified chronic kidney disease; M06.9 Rheumatoid arthritis, unspecified; Z86.73 Personal history of transient ischemic attack (TIA), and cerebral infarction without residual deficits
CPT/HCPCS: 36415; 36600; 71045; 82803; A9270-GY; J1100; J1644; J2250; J3010

== ENCOUNTER 2018-07-02 14:33 | Inpatient (IN) | payer MEDICARE, MEDICAID ==
--- OUTSIDE RECORDS SUMMARY | 2018-07-02 15:05 | XMS REPORT | Continuity of Care Document ---
:1960 External Reference #:[id number] Author Name Edilberto Forman MD Address [address] [place] [address] Care Team Providers Name Role Phone Edilberto Forman MD Care Team Information Rn New Grad Unavailable Payers Type Date Identification Numbers Payment Provider Subscriber Policy Number: [id number] Medicare-[facility] Govn SRVS Edwardo Guillen PayID: [id number] [address] [place] [address] Policy Number: [id number] Medicaid/I Edwardo Guillen Group Name: 1 2 Insurance Primary PayID: [id number] [place] [address] Advance Directives Description No Information Available Problems [...] Indications Ordering Provider Atorvastatin Active Tablets 20mg Jorge Calcium /0000 D.O., Kathy Clopidogrel Active Tablets 75mg Take One Unknown Bisulfate /0000 Tablet By Mouth Every Day Omeprazole Active Capsules DR 20mg Tash, /0000 Jet Anthony Carvedilol Active Tablets 25mg Unknown /0000 Calcitriol Active Capsules 0.25mcg Unknown /0000 Sertraline HCL Active Tablets 50mg Jorge /0000 D.O., Kathy Hydroxyzine Active Tablets 10mg [place], HCL /0000 Anjelica Anthony Enbrel Active Solution 25mg [place], /0000 Rec Anjelica Anthony Tekturna Active Tablets 300mg [place], /0000 Anjelica Anthony Amlodipine Active Tablets 5mg [place], Besylate Anjelica Anthony Hydralazine Active Tablets 100mg [place], HCL Anjelica Anthony Zofran Active Tablets 4mg 4mg by mouth Unknown every 6 hours as needed Aspirin 81 Low Active Chewtabs 81mg daily Unknown Dose Ipratropium Active Solution 0.5-2.5(3 inhale 3 Unknown [place] )mg/3ML milliliters rol Sulfate via nebulizer 4 times per day for chronic obstructive lung disease Clonazepam 03/20 Hx Tablets 0.5mg 20tab 1 by mouth Dispers s every 12 Graciela Forman - hours as 03/19 needed for vertigo Ciprodex 02/27 Hx Suspension 0.3-0.1% 7.500 4 drops right ml ear twice a EMartin Forman - day 03/19 Levofloxacin 02/27 Hx Tablets 250mg 6tabs take 2 tabs Edilberto day 1, then 1 Graciela Forman - tab every 48 03/19 hours until prescription completed Amoxicillin/Cl Hx Tablets 875-125mg Unknown avulanate Potassium - 02/27 Atorvastatin Hx Tablets 20mg Unknown Calcium / - 02/27 Clopidogrel Hx Tablets 75mg Unknown Bisulfate / - 03/19 Methadone HCL Hx Tablets 5mg Unknown / - 02/27 Hydrocodone-Ac Hx Tablets 5-325mg Q6H prn Tash, etaminophen / Jet Trujillo M.D. 03/19 Carvedilol Hx Tablets 25mg Tash, Jet Trujillo M.D. 03/19 Naproxen Hx Tablets ER 500mg Tash, Sodium ER /0000 24HR Jet Trujillo M.D. 02/[address] 20mg Tash, Jet Trujillo M.D. 02/27 Prazosin HCL Hx Capsules 2mg Unknown - 02/27 Renvela Hx Tablets 800mg Unknown - 02/27 Oxycodone-Acet Hx Tablets 5-325mg Unknown aminophen / - 02/27 Enbrel Hx Soln 25mg/0.5M Inject 1 Prefill L Syringe Under - Syringe The Skin Once 02/27 A Week Tekturna Hx Tablets 300mg [place], Jet Trujillo M.D. 03/19 Lorazepam Hx Tablets 2mg [place], 0000 Jet Trujillo M.D. 03/19 Loperamide HCL Hx Capsules 2mg Unknown - 02/27 Sertraline HCL Hx Tablets 50mg [place] / Letty GILES 02/27 Ondansetron Hx Tablets 4mg [place], HCL Jet Trujillo M.D. 03/19 Miconazole Hx Cream 2% as directed Unknown Nitrate / - 02/27 Aspirin 81 Low Hx Chewtabs 81mg daily Unknown Dose / - 02/27 Calcitriol Hx Capsules 0.25mcg 1 by mouth Unknown / every day - 03/19 Ciprodex Hx Suspension 0.3-0.1% 4 drops in Unknown / right ear - twice a day X 02/27 Ofloxacin Hx Solution 0.3% 10 drops to Unknown (Otic) / right ear bid - X 14 days 02/27 Tylenol Hx Tablets 325mg Q4H prn Unknown - 02/27 Lactobacillus Hx Packet Unknown - 03/19 Hydrocodone-Ac Hx Tablets 10-325mg [place], etaminophen 0000 Jet Trujillo M.D. 06/11 Prazosin HCL Hx Capsules 2mg Unknown - 06/11 Hydrocodone-Ac Hx Tablets 5-325mg [place] etaminophen 0000 N.P., - Jazmine 06/11 Naproxen Hx Tablets 500mg Jorge /0000 D.O., - Kathy 06/11 Methadone HCL Hx Tablets 5mg Take One Tablet By - Mouth Twice A 06/11 Day as Needed For Pain Maximum Daily Dose Two Tablets Immunizations Description No Information Available Vital Signs Description No Information Available Results Test Date Facility Test Result H/L Range Note Wound 02/27/2018 [facility] Wound/Misc SEE RESULT 1, 2 Culture/Sensi c/o Department of Laboratories [place] [address] Stain [phone] [id number] 2 SEE RESULT BELOW Name: EDWARDO GUILLEN : [address]: Edilberto Forman MD Acct: [id number] Unit: [id number] AGE: 57 Location: [facility] Re02/27/18 SEX: F Status: REG REF SPEC: [id number] SUZY: 02/27/18-[address] [facility] [address]: Edilberto Forman MD REQ: [id number] RECD: 02/27/188 STATUS: COMP _ SOURCE: MISC SOURC SPDESC:DRAINAGE ORDERED: Culture Stain COMMENTS: [id number] Specimen Description EAR DRAINAGE Procedure Result Reported [...] CONTINUED ON NEXT PAGE DEPARTMENT OF PATHOLOGY, [address] [place] [address] Shalom Higgins M.D. Director JAN # [id number] Patient: EDWARDO GUILLEN [id number] (Continued) Specimen: [id number] Collected: 02/27/18 Received: 02/27/18-1204 (Continued) Procedure Result Reported Site Wound/Misc Culture Final (continued) Contact the Microbiology Department for any additional antibiotic reporting. * [facility] - Main Lab . END OF REPORT DEPARTMENT OF PATHOLOGY, [address] [place] [id number] Shalom Higgins M.D. Director [facility] # [id number] Procedures Description No Information Available Encounters Type Date Location Provider Dx Diagnosis Office Visit 06/12/2018 [facility],Jessica [id number] Acute suppr 1:45p 06/10/07 MD Dasia otitis media w spon rupt ear drum, right ear Office Visit 03/20/2018 [facility],After Edilberto Owens H66.011 Acute suppr 2:45p 06/10/07 MD Dasia otitis media w spon rupt ear drum, right ear Office Visit 02/27/2018 [facility],After Edilberto Owens H66.011 Acute suppr 9:00a 06/10/07 MD Dasia otitis media w spon rupt ear drum, right ear Office Visit 02/13/2018 [facility],After Edilberto Owens H66.011 Acute suppr 1:30p 06/10/07 MD Dasia otitis media w spon rupt ear drum, right ear Plan of Treatment Future Appointment(s):09/11/2018 1:45 pm - Gucci Haddad MA, CCC-A at [facility],After 06/10/803 1:30 pm - Edilberto Forman MD at [facility] - Edilberto Forman MDH66.011 Acute suppurative otitis media with spontaneous rupture of e
--- NOTE | 2018-07-02 15:17 | ED ---
Shortness of Breath - HPI Summary HPI Summary: A 57 y/o female brought in by [id number] ambulance presents to [facility] with a chief complaint of SOB on 07/02/18. Per triage note, Patient was at dialysis today, therapy was stopped. Patient was having Resp distress, with confusion and AMS. She claims that her breathing is harder than usual. She uses 2L O2 at home. She has a Hx of COPD and emphysema. She is unsure what time her symptoms started. She is unsure of the date but is able to tell that it is 2018. She denies fever, chills, erythema (eyes), sore throat, chest pain, cough, abdominal pain, vomiting, nausea, dysuria, hematuria, myalgia, edema, rash and dizziness. At triage her pain was rated as 0/10. - History of Current Complaint Chief Complaint: EDShortnessOfBreath Time Seen by Provider: 07/02/18 15:03 Hx Obtained From: Patient, EMS Onset/Duration: Sudden Onset, Lasting Hours, Still Present Timing: Constant Current Severity: Moderate Dyspnea At: Rest Aggrevating Factors: Nothing Alleviating Factors: Nothing Associated Signs & Symptoms: Negative - fever, chills, erythema (eyes), sore throat, chest pain, cough, abdominal pain, vomiting, nausea, dysuria, hematuria , myalgia, edema, rash and dizziness. - Allergy/Home Medications Allergies/Adverse Reactions: Allergies Allergy/AdvReac Type Severity Reaction Status Date / Time Adhesive Tape Allergy Intermediate Hives Verified 05/23/18 11:16 codeine AdvReac Severe GI Upset Verified 05/23/18 11:16 Home Medications: Home Medications Acetaminophen [Tylenol Extra Strength] 500 - 1,000 mg PO DAILY PRN 07/02/18 [ History Confirmed 07/02/18] Aliskiren TAB* [Tekturna TAB*] 300 mg PO DAILY 07/02/18 [History Confirmed 07/02] Aspirin 81 mg CHEW TAB* [Aspirin Low Dose TAB*] 81 mg PO DAILY 07/02/18 [ History Confirmed 07/02/18] Atorvastatin* [Lipitor*] 20 mg PO DAILY 07/02/18 [History Confirmed 07/02/18] Carvedilol TAB* [Coreg TAB*] 50 mg PO BID 07/02/18 [History Confirmed 07/02/18] Clopidogrel TAB* [Plavix TAB*] 75 mg PO DAILY 07/02/18 [History Confirmed ] Etanercept [Enbrel] 25 mg SUBCUT WEEKLY 07/02/18 [History Confirmed 07/02/18] HYDROcodone/ACETAMIN 5-325 MG* [Brocket 5-325 TAB*] 1 tab PO Q6H PRN 07/02/18 [ History Confirmed 07/02/18] Methadone TAB* [Dolophine TAB*] 5 mg PO Q12H 07/02/18 [History Confirmed ] Omeprazole CAP (NF) [Prilosec CAP* 20 MG] 20 mg PO DAILY 07/02/18 [History Confirmed 07/02/18] Ondansetron ODT TAB* [Zofran 4 MG Odt TAB*] 4 mg PO Q8H PRN 07/02/18 [History Confirmed 07/02/18] Sertraline* [Zoloft*] 50 mg PO DAILY 07/02/18 [History Confirmed 07/02/18] Sodium Polystyrene Sulfon/Sorb [Sps] 15 gm PO SEE INSTRUCTIONS 07/02/18 [ History Confirmed 07/02/18] amLODIPine TAB* [Norvasc 5 mg TAB*] 10 mg PO DAILY 07/02/18 [History Confirmed 07/02/18] hydrOXYzine HCL TAB* [Atarax 10 MG TAB*] 10 mg PO TID PRN 07/02/18 [History Confirmed 07/02/18] PMH/Surg Hx/FS Hx/Imm Hx Endocrine/Hematology History: Reports: Hx Anemia - gets epogen shot Denies: Hx Blood Disorders, Hx Blood Transfusions, Hx Bone Marrow Disease, Hx Diabetes, Hx Systemic Lupus Erythematosus, Hx Thyroid Disease, Hx Unexplained Bleeding Cardiovascular History: Reports: Hx Aneurysm, Hx Cardiomegaly, Hx Congestive Heart Failure, Hx Coronary Artery Disease, Hx Hypercholesterolemia, Hx Hypertension, Other Cardiovascular Problems/Disorders - CAD, AL, MURMUR, bradycardia Denies: Hx Pacemaker/ICD, Hx Peripheral Vascular Disease Respiratory History: Reports: Hx Chronic Obstructive Pulmonary Disease (COPD) - PT DENIES, Hx Pleural Effusion Denies: Hx Pneumonia, Hx Pulmonary Edema, Hx Pulmonary Embolism, Hx Seasonal Allergies, Hx Sleep Apnea GI History: Reports: Hx Diverticulosis, Hx Gastroesophageal Reflux Disease, Hx Ulcer History: Reports: Hx Chronic Renal Failure - dialysis patient, Hx Dialysis - HEMODIALYSIS [facility]IA [facility], Hx Kidney Infection, Hx Renal Disease - ESRD, polycystic kidney disease, Other Problems/Disorders - polycystic kidney, does notvoid Denies: Hx Kidney Stones Musculoskeletal History: Reports: Hx Arthritis, Hx Rheumatoid Arthritis, Hx Back Problems, Hx Orthopedic Injury - left hip fx, Other Musculoskeletal History - LEFT HIP FX Denies: Hx Osteoporosis Sensory History: Denies: Hx Cataracts, Hx Contacts or Glasses, Hx Eye Injury, Hx Eye Prosthesis, Hx Glaucoma, Hx Legally Blind, Hx Macular Degeneration, Hx Vision Problem, Hx Deafness, Hx Hearing Aid, Hx Hearing Problem Opthamlomology History: Denies: Hx Cataracts, Hx Contacts or Glasses, Hx Eye Injury, Hx Eye Prosthesis, Hx Glaucoma, Hx Legally Blind, Hx Macular Degeneration, Hx Vision Problem Neurological History: Reports: Hx CVA, Hx Seizures - last admission in ED, Other Neuro Impairments/Disorders - brain aneurism x5 per pt Denies: Hx Dementia, Hx Developmental Delay, Hx Headaches, Hx Migraine, Hx Nerve Disease Psychiatric History: Reports: Hx Anxiety, Hx Depression Denies: Hx Panic Disorder, Hx Post Traumatic Stress Disorder, Other Psychiatric Issues/Disorders - Cancer History Hx Chemotherapy: No - Surgical History Surgery Procedure, Year, and Place: dialysis port x2 Hx Anesthesia Reactions: No - Immunization History Date of Tetanus Vaccine: Unknown Infectious Disease History: No Infectious Disease History: Denies: Hx Tuberculosis, Traveled Outside the [place] in Last 30 Days - Family History Known Family History: Negative: Cardiac Disease, Hypertension, Diabetes - Social History Alcohol Use: None Hx Substance Use: No Substance Use Type: Reports: None Hx Tobacco Use: Yes Smoking Status (MU): Former Smoker Type: Cigarettes Amount Used/How Often: not much, only while in college Have You Smoked in the Last Year: No Review of Systems Negative: Fever, Chills Negative: Erythema Negative: Sore Throat Negative: Chest Pain Positive: Shortness Of Breath. Negative: Cough Negative: Abdominal Pain, Vomiting, Nausea Negative: dysuria, hematuria Negative: Myalgia, Edema Negative: Rash Neurological: Negative - dizziness All Other Systems Reviewed And Are Negative: Yes Physical Exam - Summary Physical Exam Summary: Constitutional: Well-developed, Well-nourished, Alert. (-) Distressed Skin: Warm, Dry HENT: Normocephalic; Atraumatic Eyes: Conjunctiva normal Neck: Musculoskeletal ROM normal neck. (-) JVD, (-) Stridor, (-) Tracheal deviation Cardio: Rhythm regular, rate normal, Heart sounds normal; Intact distal pulses; The pedal pulses are 2+ and symmetric. Radial pulses are 2+ and symmetric. (-) Murmur Pulmonary/Chest wall: Effort normal. (-) Respiratory distress, (-) Wheezes, (+) Rales stronger on right than left Abd: Soft, (-) epigastric tenderness, (-) Distension, (-) Guarding, (-) Rebound Musculoskeletal: (-) Edema Lymph: (-) Cervical adenopathy Neuro: Alert, Oriented x3 Psych: Mood and affect Normal Triage Information Reviewed: Yes Vital Signs On Initial Exam: Initial Vitals Temp Pulse Resp BP Pulse Ox 98.0 F 72 16 166/87 100 07/02/18 14:35 07/02/18 14:35 07/02/18 14:35 07/02/18 14:35 07/02/18 14:35 Vital Signs Reviewed: Yes Diagnostics - Vital Signs Vital Signs Temp Pulse Resp BP Pulse Ox 07/02/18 14:35 98.0 F 72 16 166/87 100 - Laboratory Result Diagrams: 07/02/18 15:58 07/02/18 15:58 Lab Statement: Any lab studies that have been ordered have been reviewed, and results considered in the medical decision making process. - Radiology CXR Radiology Interpretation Completed By: Radiologist Summary of Radiographic Findings: 1. CARDIOMEGALY. 2. PULMONARY INTERSTITIAL EDEMA. 3. BILATERAL PLEURAL EFFUSIONS WITH BIBASILAR ATELECTASIS VERSUS CONSOLIDATION. ED physician has reviewed this imaging report. - EKG 14:37 Cardiac Rate: NL - 70 bpm EKG Rhythm: Sinus Rhythm Summary of EKG Findings: NSR at 70 bpm. T-wave inversion V5V6. no STEMI 14:46 Cardiac Rate: NL - 67 bpm EKG Rhythm: Sinus Rhythm Summary of EKG Findings: NSR 67 bpm no STEMI. Re-Evaluation - Re-Evaluation First Eval Re-Evaluation Time: 19:01 Change: Improved Comment: The patient is awake and alert, breathing better, not tired of breathing, will hold off on BIPAP, extreme claustrophobia with nurse who needed to remove the mask on admission. Course/Dx - Course Course Of Treatment: A 57 y/o female brought in by [facility] ambulance presents to [facility] with a chief complaint of SOB on 07/02/18. The physical exam revealed rales stronger on right than left. CXR impression: 1. CARDIOMEGALY. 2. PULMONARY INTERSTITIAL EDEMA. 3. BILATERAL PLEURAL EFFUSIONS WITH BIBASILAR ATELECTASIS VERSUS CONSOLIDATION. EKG revealed NSR at 70 bpm. In the ED course the patient was given Azithromycin IVPB and Methadone TAB PO. Lab results obtained. Lactic Acid was low at 0.4. Case discussed with Dr. Bianchi, who claims dialysis was done PROCESS MAINTENANCE TECHNICIAN and recommended dialysis to lower her fluid levels. Case discussed with Dr. Sheldon, hospitalist, who accepted the patient for admission. - Diagnoses Provider Diagnoses: Respiratory distress, Fluid overload, Renal failure - Physician Notifications Discussed Care of Patient With: Jet Bianchi Time Discussed With Above Provider: 15:00 Instructed by Provider To: Other - Reports that dialysis was completed PROCESS MAINTENANCE TECHNICIAN. Discharge - Sign-Out/Discharge Documenting (check all that apply): Patient Departure - admit - Discharge Plan Condition: Fair Disposition: ADMITTED TO [facility] - Attestation Statements Document Initiated by Scribe: Yes Documenting Scribe: Rolando Keller Provider For Whom Scribe is Documenting (Include Credential): Ad Beal MD Scribe Attestation: I, Rolando Keller, scribed for Ad Beal MD on 07/02/18 at 1912. Status of Scribe Document: Ready Consult Consult: At 17:[address] Bianchi who claims that her fluid is overloaded so he recommends further dialysis to decrease fluid levels and admission to the ICU. At 18:00 Dr. Sheldon, hospitalist, accepted the patient for admission.
[2018-07-02 16:12] LABS: ABS Basophils 0 10^3/ul (0-0.2); ABS Eosinophils 0.3 10^3/ul (0-0.6); ABS Lymphocytes 0.8 10^3/ul (1.0-4.8); ABS Monocytes 0.4 10^3/ul (0-0.8); ABS Neutrophils 3.3 10^3/ul (1.5-7.7); ABS Nucleated RBC 0 10^3/ul; Hematocrit 29 % (35-47); Hemoglobin 9.4 g/dl (12.0-16.0); Lymphocyte % 16.8 %; Mean Corpuscular HGB Conc 33 g/dl (31-36); Mean Corpuscular Hemoglobin 30 pg (27-31); Mean Corpuscular Volume 90 fL (80-97); Mean Platelet Volume 7.3 fL (7.4-10.4); Nucleated Red Blood Cells % 0; Platelet Count 117 10^3/ul (150-450); Red Blood Count 3.18 10^6/ul (4.00-5.40); Red Cell Distribution Width 15 % (10.5-15)
[2018-07-02 16:25] LABS: Activated Partial Thrombo Time 42.6 seconds (26.0-36.3); INR 0.93 (0.77-1.02)
[2018-07-02 16:27] LABS: Albumin/Globulin Ratio 1.8 (1-3); Calcium 9.6 mg/dL (8.6-10.3); EGFR African American 19.5 (>60); EGFR Non-African American 16.1 (>60); Globulin 2.2 g/dL (2-4); Potassium 4.1 mmol/L (3.5-5.0); Total Bilirubin 0.5 mg/dL (0.2-1.0); Total Protein 6.2 g/dL (6.4-8.9)
[2018-07-02 16:29] LABS: Troponin I 0.03 ng/mL (<0.04)
[2018-07-02] MEDS ORDERED: Azithromycin IV(*) 500 MG in NS 0.9% 250 ML* 250 ML IVPB ONE (16:34)
[2018-07-02] MEDS ORDERED: cefTRIAXone(*) 1 GM in NS 0.9% 50 ML* 50 ML IVPB ONE (16:34)
[2018-07-02] MEDS ORDERED: Methadone TAB* 5 MG PO ONE (17:10)
[2018-07-02] MEDS ORDERED: Acetaminophen TAB* 325 MG PO PRN (18:40)
[2018-07-02 19:29] LABS: TSH (Thyroid Stimulating Horm) 2.88 mcIU/mL (0.34-5.60)
--- NOTE | 2018-07-02 19:37 | PN ---
Hospitalist Progress Note Date of Service: 07/02/18 Addendum to H/P On re examination and arrival in ICU patient was more somnolent compared to my prior exam, a repeat ABG was ordered, and I have placed her on BiPAP while awaiting results pending the change in her mental status.
[2018-07-02] MEDS ORDERED: Naloxone* 0.4 MG/ML 1 ML VIAL IV PUSH ONE (21:47)
[2018-07-02] MEDS: Carvedilol TAB* 25 MG PO SCH (21:48)
[2018-07-02] MEDS ORDERED: Naloxone* 0.4 MG/ML 1 ML VIAL ONE (22:19)
[2018-07-02] MEDS: Heparin VIAL(*) 5000 UNITS/ML VIAL (FIVE THOUSAND) SUBCUT SCH (22:46)
--- NOTE | 2018-07-03 01:10 | HP ---
CC: [facility] * HISTORY AND PHYSICAL: ATTENDING PROVIDER: Dr. Ileana Sheldon. DATE OF ADMISSION: 07/02/18 CHIEF COMPLAINT: Shortness of breath and altered mental status. HISTORY OF PRESENT ILLNESS: Ms. Charles is a 57-year-old female with a complex past medical history notable for end-stage renal disease secondary to polycystic kidney disease, hypertension, heart failure with preserved ejection fraction of 50% to 55% from last echocardiogram in November 2017, history of CVA, history of rheumatoid arthritis, and history of depression. She presented today from dialysis, where she was noted to have altered mental status and inappropriately answering questions. I spoke with the radiation officer, Dr. Bianchi , who was present at her dialysis today and he said that she seemed more confused and off of her baseline. Typically, she is alert, oriented x3 to situation, although he said that she has had a decline and some concern for failure to thrive over a number of months. Ultimately, today during dialysis, towards the end, she was getting more confused and she also had some increased work of breathing and complained of some shortness of breath, so she was sent by EMS to the emergency room. EMS did note that she has some increased work of breathing in transit, but other than that, there were no active acute complaints. When she arrived in the emergency room, her vital signs were: Blood pressure 166/87, temperature of 98, heart rate of 72, respiration rate noted to be 25, and she was satting 100% on 4 L. According to EMS, she had been desatting well below the 90s and needing increasing amounts of nasal cannula oxygen. Of note, her baseline oxygen is none. She had labs done in the emergency room that were notable only for mild anemia, hemoglobin of 9.4 and hematocrit of 29 as well as BMP that was largely unremarkable given that she had just been dialyzed. She did have an ABG done, which was 7.38, 54, 76, and 97. She had a chest x-ray ordered that was notable for significant vascular congestion and pulmonary edema bilaterally. She had no clear opacification or concern for consolidation. Over the course of her emergency room treatment, the emergency room providers noted that she became more and more tachypneic and had increased work of breathing. Ultimately, they felt that she required high-flow nasal cannula to help lower her respiratory rate from above 30 down to 18. By the time I had seen her, she was on high-flow nasal cannula at 31%, although she did note to be slightly drowsy. Also in the emergency room, she was given azithromycin, ceftriaxone, and her home medication of methadone 5 mg p.o. once as they said she had complained of pain. On interview with the patient, she was unable to give me much of a history of present illness, other than she said that she did feel short of breath. She denied all other review of systems and ultimately said her #1 complaint was trouble breathing. Of note, she did have trouble staying awake during our conversation, although she was about 40 minutes out from having her methadone. Ultimately, the decision to admit her to the ICU given her increased work of breathing and needs for high-flow nasal cannula and positive pressure was made and she was admitted to the ICU. PAST MEDICAL HISTORY: Significant for ESRD secondary to polycystic kidney disease, hypertension, cardiomyopathy and heart failure with preserved ejection fraction with last ejection fraction of 50% to 55% in November 2017, CVA, rheumatoid arthritis, and depression. PAST SURGICAL HISTORY: Notable for a tunneled dialysis catheter as well as a distant peritoneal dialysis catheter, which has now been removed. I was unable to obtain any other history in terms of her surgeries. MEDICATIONS: Her home medications are as follows: 1. Tylenol 650 mg every 6 hours p.r.n. for pain. 2. Aliskiren 300 mg p.o. daily (this is a renin inhibitor for ESRD patients). 3. Amlodipine 10 mg p.o. daily. 4. Aspirin 81 mg p.o. daily. 5. Atorvastatin 20 mg p.o. daily. 6. Carvedilol 50 mg p.o. daily. 7. Clopidogrel 75 mg p.o. daily. 8. Etanercept 25 mg subcutaneous q. week. 9. Methadone 5 mg p.o. q.12. 10. Hydroxyzine 10 mg p.o. t.i.d. p.r.n. for anxiety. 11. Omeprazole 20 mg p.o. daily. 12. Ondansetron 4 mg p.o. q.8 hours p.r.n. for nausea. 13. Sertraline 50 mg p.o. daily. 14. Sodium polystyrene 15 g p.o. daily p.r.n. ALLERGIES: Include adhesive tape and CODEINE. FAMILY HISTORY: According to old notes, her father did have polycystic kidney disease and coronary artery disease; otherwise, she was unable to tell me a family history. SOCIAL HISTORY: She resides at [facility]. She is a nonsmoker. She does not drink alcohol. No history of elicits. Her surrogate decision maker is her son, Rojelio. REVIEW OF SYSTEMS: Head and Neck: She denies headache and vision changes at this time. No difficulty swallowing. She denies chest pain. In terms of cardiovascular and pulmonary, she does endorse shortness of breath and increased work of breathing. GI: She denies nausea, vomiting, diarrhea, constipation. : She denies any dysuria or hematuria. Of note, she is unable to make urine. Musculoskeletal: She complains of chronic musculoskeletal pain, which is unchanged in nature. Psychiatric: She does endorse depression. PHYSICAL EXAMINATION GENERAL: This is a frail, older than appearing stated woman who is sitting on the emergency room stretcher with waxing and waning mental state. She did not appear to be in any acute distress. She arouses easily to my voice and is alert and oriented to person, place, date, and time, although does nod off every 45 seconds. VITAL SIGNS: At time of physial exam are 161/86, heart rate 65, temperature 98 , respiration rate was in the mid 20s at 25, and she was satting 99% at 35% high -flow nasal cannula. HEENT: She was acephalic and nontraumatic. Her pupils were equal and reactive to light. Her oral mucosa was dry with no oropharyngeal erythema. NECK: Supple with no cervical lymphadenopathy. LUNGS: Notable for bilateral crackles in the bases with no evidence of wheezes. She did have increased work of breathing and became tachypneic with short sentences. HEART: She had regular rate and rhythm with no murmur, rubs, or gallops. ABDOMEN: Her belly was soft with normoactive bowel sounds and nondistended. EXTREMITIES: Notable for 1+ edema, pitting, to bilateral shins. She had evidence of chronic venous stasis on the left lower extremity. Her pulses were 2+ throughout. NEUROLOGIC: Again, she has a waxing and waning sensorium. She responds to my voice and is A and O x3 when prompted. She follows all commands and she has no gross focal neurologic deficits. Cranial nerves II through XII are intact. SKIN: Intact. DIAGNOSTIC STUDIES/LAB DATA: Laboratory data is as follows: White blood cell count 5, hemoglobin 9.4, hematocrit 29, platelets 117. BMP notable for sodium 134, potassium 4.1, chloride 92, carbon dioxide 34, BUN 27, creatinine 3, glucose 86, lactic acid 0.4. ABG was done and was notable for 7.38, 54, 76, 97. Liver function panel was done, which was unremarkable with the exception of mildly elevated alkaline phosphatase at 116. Her BNP was notable for 378. Her albumin is 4. Her total protein is 6.2. Imaging: Chest x-ray was ordered and she does have bilateral pulmonary edema with evidence of vascular congestion. The radiology report was read as the same. She did have an EKG obtained in the emergency room which was notable for sinus rhythm, rate of 67. She has notable left ventricular hypertrophy and normal axes. She has flattened T waves in III and aVF. She has a mild IVCD with QRS at 82. Her old EKG was reviewed and is similar with the same. ASSESSMENT: 1. Overall, this is a 57-year-old female with past medical history of end- stage renal disease, on hemodialysis, history of heart failure with preserved ejection fraction, hypertension, and failure to thrive who presented from hemodialysis with altered mental status and increased work of breathing. In the emergency room, she is noted to be with waxing and waning mental status and requires high-flow nasal cannula to lessen her work of breathing, although not to maintain sats. At this point, her data suggests that her current presentation is likely secondary to volume overload. It is unclear whether she reached dry weight at her current hemodialysis session. Furthermore, her waxing and waning sensorium may be secondary to medications as she has been sensitive to opiate mediations in the past and she is on home opiates. PLAN: 1. Shortness of breath. As noted, I believe this is volume related. Currently , she is on high-flow nasal cannula for positive pressure. If she decompensates further, she is not Lasix responsive and she does not make urine, so she may do well with Nitro paste. I did discuss the case with Dr. Bianchi, who said that if we felt that she needed emergent dialysis she would need to transferred. At this time, she does not seem critically volume overloaded and thus, we will just continue high-flow nasal cannula and plan for dialysis on Saturday. Furthermore, I cannot rule out that she has some component of reactive airway disease or early lung infection, although it does not appear so. She received azithromycin and ceftriaxone. I will continue azithromycin for now, though I have low clinical suspicion and it certainly can be discontinued tomorrow. She does not have evidence of hypercapnia, with her last ABG showing a PCO2 of 54, although we will repeat ABG when she gets to the ICU, concern for needing BiPAP. 2. Altered mental status. This is probably multifactorial from hypoxia, mild hypercarbia, and likely from polypharmacy. As of above, I am unclear if she has an infection. There is no clear consolidation in lungs, although I cannot rule out an early pneumonia. For now, we will hold opiates, repeat an ABG, and continue supportive care. I did add TSH, B12, and ammonia to labs, which can be followed up on. 3. End-stage renal disease. Her last dialysis was today. It is unclear if she reached dry weight. Per EMS, she stopped 45 minutes short secondary to her altered mental status. She is on the schedule for dialysis for Saturday. I spoke with Dr. Tash robledo and he reports that if she is acutely volume overloaded and needing emergent dialysis, she would need to be transferred. 4. Hypertension. I will continue her home medications, amlodipine and aliskiren. 5. Depression and failure to thrive. I will continue her home medications of sertraline and hydroxyzine for anxiety. 6. Rheumatoid arthritis. This is not an active problem. I am holding her methadone and offering her Tylenol in place. 7. Heart failure with preserved ejection fraction. Last ejection fraction was 50% to 55%. Of note, she is not Lasix responsive. She is on a beta samira, aspirin, and statin. We will continue these medications. 8. DVT prophylaxis. She is on subcu heparin. 9. FEN plan. She is on a renal diet. 10. Her code status is DNR/DNI. This is confirmed with her and this has been confirmed with her son in the past. She is clear with this when I discussed with her in the emergency room. I did leave a message for her son, noting that if this is the incorrect code status to call us back. TIME SPENT: Time spent on this admission was approximately 60 minutes and greater than half the time was spent [id number] with the patient obtaining my history and physial. Other half the time was going over the plan of care with the patient, implementing the plan of care, and this was critical care time. I did discuss the plan with the team involved with her care and we are all in agreement. [id number]/CPS #: [id number] [email or web address]
[2018-07-03] MEDS: Heparin VIAL(*) 5000 UNITS/ML VIAL (FIVE THOUSAND) SUBCUT SCH ×3 (06:15→22:15)
[2018-07-03 06:37] LABS: ABS Basophils 0 10^3/ul (0-0.2); ABS Eosinophils 0.2 10^3/ul (0-0.6); ABS Monocytes 0.4 10^3/ul (0-0.8); ABS Neutrophils 3.3 10^3/ul (1.5-7.7); ABS Nucleated RBC 0 10^3/ul; Eosinophil % 4.7 %; Hematocrit 26 % (35-47); Hemoglobin 8.5 g/dl (12.0-16.0); Lymphocyte % 19.6 %; Mean Corpuscular HGB Conc 33 g/dl (31-36); Mean Corpuscular Hemoglobin 30 pg (27-31); Mean Corpuscular Volume 91 fL (80-97); Mean Platelet Volume 7.6 fL (7.4-10.4); Nucleated Red Blood Cells % 0.1; Platelet Count 120 10^3/ul (150-450); Red Blood Count 2.86 10^6/ul (4.00-5.40); Red Cell Distribution Width 16 % (10.5-15); White Blood Count 4.9 10^3/ul (3.5-10.8)
[2018-07-03 06:49] LABS: Calcium 9.7 mg/dL (8.6-10.3); EGFR African American 15.5 (>60); EGFR Non-African American 12.8 (>60); Potassium 4.9 mmol/L (3.5-5.0)
[2018-07-03] MEDS: Atorvastatin* 20 MG TAB PO SCH (07:18)
[2018-07-03] MEDS: Clopidogrel TAB* 75 MG PO SCH (07:18)
[2018-07-03] MEDS: Aliskiren TAB* 300 MG PO SCH (07:18)
[2018-07-03] MEDS: amLODIPine TAB* 5 MG PO SCH (07:18)
[2018-07-03] MEDS: Aspirin 81 mg CHEW TAB* 81 MG TAB.CHEW PO SCH (07:18)
[2018-07-03] MEDS: Pantoprazole TAB * 40 MG TAB PO SCH (07:18)
[2018-07-03] MEDS: Carvedilol TAB* 25 MG PO SCH ×2 (07:18→22:10)
[2018-07-03] MEDS: Sertraline* 50 MG TAB PO SCH (07:18)
[2018-07-03] MEDS: hydrOXYzine HCL TAB* 10 MG PO PRN (07:50)
--- NOTE | 2018-07-03 14:41 | PN ---
Date of Service: 07/03/18 Critical Care Services: Patient is somnolent but easily arousable. No complaints SOB Vital Signs: Temp Pulse Resp BP SpO2 FiO2 98.1 F 59 8 97/49 100 40 Physical Exam: Gen:As mentioned Lungs: No wheezing or rhonchi Extremities: no cyanosis or edema Fluid Balance (Past 24 Hours): 07/03/18 06:59 Intake Total 50 Output Total 0 Balance 50 Weight 127 lb Intake: IV Fluids 50 Oral 0 Output: Urine 0 Labs: Laboratory Results - last 24 hr 07/02/18 07/02/18 07/02/18 15:58 15:58 15:58 WBC 5.0 RBC 3.18 L Hgb 9.4 L Hct 29 L MCV 90 MCH 30 MCHC 33 RDW 15 Plt Count 117 L MPV 7.3 L Neut % (Auto) 67.4 Lymph % (Auto) 16.8 Rush % (Auto) 8.4 Eos % (Auto) 7.0 Baso % (Auto) 0.4 Absolute Neuts (auto) 3.3 Absolute Lymphs (auto) 0.8 L Absolute Monos (auto) 0.4 Absolute Eos (auto) 0.3 Absolute Basos (auto) 0 Absolute Nucleated RBC 0 Nucleated RBC % 0 INR (Anticoag Therapy) 0.93 APTT 42.6 H Patient Temperature ABG pH ABG pH (Temp Correct) ABG pCO2 ABG pCO2 (Temp Corrct ABG pO2 ABG pO2 (Temp Correct ABG HCO3 ABG O2 Saturation ABG Base Excess Respiration Rate O2 Delivery Device Ventilator Type Vent Mode FiO2 Inspiratory Time PEEP Pressure Support Pressure Control EPAP IPAP BiPAP Sodium 134 L Potassium 4.1 D Chloride 92 L Carbon Dioxide 34 H Anion Gap 8 BUN 27 H Creatinine 3.00 H Est GFR ( Amer) 19.5 Est GFR (Non-Af Amer) 16.1 BUN/Creatinine Ratio 9.0 Glucose 86 Lactic Acid Calcium 9.6 Total Bilirubin 0.50 AST 30 ALT 32 Alkaline Phosphatase 116 H Ammonia Troponin I 0.03 B-Natriuretic Peptide Total Protein 6.2 L Albumin 4.0 Globulin 2.2 Albumin/Globulin Ratio 1.8 Vitamin B12 457 TSH 2.88 07/02/18 07/02/18 07/02/18 15:58 15:58 16:10 WBC RBC Hgb Hct MCV MCH MCHC RDW Plt Count MPV Neut % (Auto) Lymph % (Auto) Rush % (Auto) Eos % (Auto) Baso % (Auto) Absolute Neuts (auto) Absolute Lymphs (auto) Absolute Monos (auto) Absolute Eos (auto) Absolute Basos (auto) Absolute Nucleated RBC Nucleated RBC % INR (Anticoag Therapy) APTT Patient Temperature ABG pH 7.38 ABG pH (Temp Correct) ABG pCO2 54 H ABG pCO2 (Temp Corrct ABG pO2 76 L ABG pO2 (Temp Correct ABG HCO3 29.0 ABG O2 Saturation 97.0 ABG Base Excess 5.3 H Respiration Rate O2 Delivery Device Ventilator Type Vent Mode FiO2 Inspiratory Time PEEP Pressure Support Pressure Control EPAP IPAP BiPAP Sodium Potassium Chloride Carbon Dioxide Anion Gap BUN Creatinine Est GFR ( Amer) Est GFR (Non-Af Amer) BUN/Creatinine Ratio Glucose Lactic Acid 0.4 L Calcium Total Bilirubin AST ALT Alkaline Phosphatase Ammonia Troponin I B-Natriuretic Peptide 378 H Total Protein Albumin Globulin Albumin/Globulin Ratio Vitamin B12 TSH 07/02/18 07/02/18 07/02/18 19:24 19:29 19:35 WBC RBC Hgb Hct MCV MCH MCHC RDW Plt Count MPV Neut % (Auto) Lymph % (Auto) Rush % (Auto) Eos % (Auto) Baso % (Auto) Absolute Neuts (auto) Absolute Lymphs (auto) Absolute Monos (auto) Absolute Eos (auto) Absolute Basos (auto) Absolute Nucleated RBC Nucleated RBC % INR (Anticoag Therapy) APTT ABG pH 7.31 L ABG pCO2 69 H ABG pO2 186 H ABG HCO3 29.6 ABG O2 Saturation 100.0 H ABG Base Excess 6.0 H O2 Delivery Device vapotherm FiO2 75 Sodium Potassium Chloride Carbon Dioxide Anion Gap BUN Creatinine Est GFR ( Amer) Est GFR (Non-Af Amer) BUN/Creatinine Ratio Glucose Lactic Acid 0.3 L Calcium Total Bilirubin AST ALT Alkaline Phosphatase Ammonia 44 Troponin I B-Natriuretic Peptide Total Protein Albumin Globulin Albumin/Globulin Ratio Vitamin B12 TSH 07/02/18 07/03/18 07/03/18 21:06 06:13 06:13 WBC 4.9 RBC 2.86 L Hgb 8.5 L Hct 26 L MCV 91 MCH 30 MCHC 33 RDW 16 H Plt Count 120 L APTT ABG pH 7.31 L ABG pCO2 71 H ABG pO2 135 H ABG HCO3 30.3 ABG O2 Saturation 100.0 H ABG Base Excess 6.8 H O2 Delivery Device bipap Vent Mode s/t FiO2 50 EPAP 6 IPAP 16 Sodium 135 Potassium 4.9 Chloride 93 L Carbon Dioxide 34 H Anion Gap 8 BUN 33 H Creatinine 3.65 H Est GFR ( Amer) 15.5 Est GFR (Non-Af Amer) 12.8 BUN/Creatinine Ratio 9.0 Glucose 73 Lactic Acid Calcium 9.7 Studies: CXR - no change from last CXR. Nutrition: Oral diet Impression: Somnolence seems to be related to methadone (5 mg) given in ED, as patient has a Hx of this type of response to methadone. Plan: Observe and hold on any further opiates. Dr Bianchi to decide about dialysis Rx. Spoke with patient's son, who is aware of the current situation.
[2018-07-03] MEDS ORDERED: Azithromycin IV(*) 250 MG in NS 0.9% 250 ML* 250 ML IVPB SCH (18:00)
[2018-07-04 04:52] LABS: BUN/Creatinine Ratio 9.8 (8-20); Calcium 9.2 mg/dL (8.6-10.3); EGFR African American 11.7 (>60); EGFR Non-African American 9.6 (>60)
[2018-07-04 04:53] LABS: Potassium 5.2 mmol/L (3.5-5.0)
[2018-07-04] MEDS: Heparin VIAL(*) 5000 UNITS/ML VIAL (FIVE THOUSAND) SUBCUT SCH ×3 (06:29→20:43)
--- NOTE | 2018-07-04 10:53 | PN ---
Date of Service: 07/04/18 Critical Care Services: Much more alert today. Up in bed eating breakfast. Vital Signs: Temp Pulse Resp BP SpO2 FiO2 97.5 F 61 23 116/56 90 5L/m Physical Exam: Gen:Responds appropriately Lungs: Few crackles on right posteriorly Extremities:No cyanosis or edema Fluid Balance (Past 24 Hours): For dialysis today Labs: 07/04/18 04:20 Sodium 134 L Potassium 5.2 H Chloride 94 L Carbon Dioxide 31 Anion Gap 9 BUN 46 H Creatinine 4.68 H Est GFR ( Amer) 11.7 Est GFR (Non-Af Amer) 9.6 BUN/Creatinine Ratio 9.8 Glucose 51 L Calcium 9.2 Studies: Blood cultures negative so far. Nutrition: Oral diet - intake good this AM Impression: Mental status back to baseline since methadone effect has worn off. Still has anxiety, but it is controlled with Atarax. Oxygenation almost back to baseline. Plan: 1. Dialysis today. 2. Transfer out of ICU 3. Can return to half-way when O2 requirement is back to baseline (2 L/min)
[2018-07-04] MEDS ORDERED: EPOETIN ALFA-EPBX * 10,000 UNIT/ML VIAL IV ONE (11:00)
[2018-07-04] MEDS ORDERED: Heparin DIALYSIS ONLY(*) 1,000 UNITS/ML VIAL DIALYSIS ONE (11:00)
[2018-07-04 11:57] LABS: Hepatitis B Surface AB Not Immune (Immune)
[2018-07-04] MEDS: amLODIPine TAB* 5 MG PO SCH (12:35)
[2018-07-04] MEDS: Aliskiren TAB* 300 MG PO SCH (12:36)
[2018-07-04] MEDS: Carvedilol TAB* 25 MG PO SCH ×2 (12:36→20:43)
[2018-07-04] MEDS: Atorvastatin* 20 MG TAB PO SCH (12:36)
[2018-07-04] MEDS: Pantoprazole TAB * 40 MG TAB PO SCH (12:36)
[2018-07-04] MEDS: Aspirin 81 mg CHEW TAB* 81 MG TAB.CHEW PO SCH (12:36)
[2018-07-04] MEDS: Sertraline* 50 MG TAB PO SCH (12:36)
[2018-07-04] MEDS: Clopidogrel TAB* 75 MG PO SCH (12:36)
[2018-07-04] MEDS: hydrOXYzine HCL TAB* 10 MG PO PRN (12:49)
[2018-07-04 13:03] LABS: Hepatitis B Surface Antigen Nonreactive (Nonreactive)
[2018-07-05] MEDS: hydrOXYzine HCL TAB* 10 MG PO PRN ×2 (01:06→20:41)
[2018-07-05] MEDS ORDERED: Haloperidol INJ IV/IM* 5 MG/ML AMP IM ONE (03:25)
[2018-07-05] MEDS ORDERED: Haloperidol INJ IV/IM* 5 MG/ML AMP ONE (03:28)
[2018-07-05] MEDS: Heparin VIAL(*) 5000 UNITS/ML VIAL (FIVE THOUSAND) SUBCUT SCH ×3 (05:23→20:42)
[2018-07-05 06:53] LABS: BUN/Creatinine Ratio 7.9 (8-20); Calcium 9.7 mg/dL (8.6-10.3); EGFR African American 14.9 (>60); EGFR Non-African American 12.3 (>60); Potassium 4.6 mmol/L (3.5-5.0)
[2018-07-05] MEDS: Carvedilol TAB* 25 MG PO SCH ×2 (10:26→20:40)
[2018-07-05] MEDS: Aliskiren TAB* 300 MG PO SCH (10:26)
[2018-07-05] MEDS: amLODIPine TAB* 5 MG PO SCH (10:26)
[2018-07-05] MEDS: Atorvastatin* 20 MG TAB PO SCH (10:26)
[2018-07-05] MEDS: Clopidogrel TAB* 75 MG PO SCH (10:26)
[2018-07-05] MEDS: Aspirin 81 mg CHEW TAB* 81 MG TAB.CHEW PO SCH (10:27)
[2018-07-05] MEDS: Pantoprazole TAB * 40 MG TAB PO SCH (10:27)
[2018-07-05] MEDS: Sertraline* 50 MG TAB PO SCH (10:27)
--- NOTE | 2018-07-05 14:57 | PN ---
Subjective Date of Service: 07/05/18 Interval History: Patient seen and examined. Appears confused, sometimes yelling out. Difficult to obtain ROS. Objective Active Medications: Acetaminophen (Tylenol Tab*) 650 mg PO Q6H PRN PRN Reason: FEVER/PAIN Aliskiren (Tekturna Tab*) 300 mg PO DAILY [facility] Last Admin: 07/05/18 10:26 Dose: 300 mg Amlodipine Besylate (Norvasc Tab*) 10 mg PO DAILY [facility] Last Admin: 07/05/18 10:26 Dose: 10 mg Aspirin (Aspirin 81 Mg Chew Tab*) 81 mg PO DAILY [facility] Last Admin: 07/05/18 10:27 Dose: 81 mg Atorvastatin Calcium (Lipitor*) 20 mg PO DAILY [facility] Last Admin: 07/05/18 10:26 Dose: 20 mg Carvedilol (Coreg Tab*) 50 mg PO BID [facility] Last Admin: 07/05/18 10:26 Dose: 50 mg Clopidogrel Bisulfate (Plavix Tab*) 75 mg PO DAILY [facility] Last Admin: 07/05/18 10:26 Dose: 75 mg Heparin Sodium (Porcine) (Heparin Vial(*)) 5,000 units SUBCUT Q8HR [facility] Last Admin: 07/05/18 13:34 Dose: 5,000 units Hydroxyzine HCl (Atarax Tab*) 10 mg PO Q6H PRN PRN Reason: ANXIETY Last Admin: 07/05/18 01:06 Dose: 10 mg Methadone HCl (Dolophine Tab*) 2.5 mg PO Q12H PRN PRN Reason: pain or agitation Pantoprazole Sodium (Protonix Tab*) 40 mg PO DAILY [facility] Last Admin: 07/05/18 10:27 Dose: 40 mg Sertraline HCl (Zoloft*) 50 mg PO DAILY [facility] Last Admin: 07/05/18 10:27 Dose: 50 mg Vital Signs - 8 hr 07/05/18 07/05/18 07/05/18 07:11 08:00 11:11 Temperature 96.7 F Pulse Rate 61 67 Respiratory 18 18 18 Rate Blood Pressure 153/70 150/66 (mmHg) O2 Sat by Pulse 100 97 Oximetry 07/05/18 11:13 Temperature Pulse Rate 67 Respiratory 18 Rate Blood Pressure 150/66 (mmHg) O2 Sat by Pulse 97 Oximetry Oxygen Devices in Use Now: Nasal Cannula Appearance: frail, poor color, ill-appearing Eyes: PERRLA Ears/Nose/Mouth/Throat: - - dry oral mucosa Neck: NL Appearance and Movements; NL JVP, Trachea Midline Respiratory: Symmetrical Chest Expansion and Respiratory Effort, - - diminished bases Cardiovascular: NL Sounds; No Murmurs; No JVD, RRR Abdominal: - - distended at baseline, +BS Extremities: No Edema, No Clubbing, Cyanosis Skin: - - warm and dry Neurological: - - a&o x2, general weakness Nutrition: Taking PO's - Nutrition: Malnutrition Diagnosis/Plan Malnutrition Assessment by Registered Dietitian: Malnutrition Assessment Clinical Characteristics Chronic,Severe Malnutrition Assessment: - severe temporal and clavicle muscle wasting Criteria - severe buccal fat pad wasting * note BMI <18.5 Malnutrition Assessment: 1. renal diet; soft textures. Maintain liberal Interventions restrictions as renal parameters allow. 2. mid-afternoon snack as desired PB&J sandwich (no crust) + chocolate milk (~500 kcals, 18 g prot) 3. daily additions to breakfast tray hard boiled egg and peanut butter x2 (325 kcals , 12 g prot) 4. NO liquid supplements per pt preference Malnutrition Assessment: Goals 1. Adequate po intake to replete lean body mass in the setting of malnutrition 2. Appropriate fluid/electrolyte balance in the setting of ESRD on HD w/o further dietary restriction 3. Achieve bowel regularity w/ adequate po intake w/o diarrhea or constipation Result Diagrams: 07/03/18 06:13 07/05/18 06:24 Microbiology and Other Data: Microbiology 07/02/18 15:45 Aerobic Blood Culture - Preliminary Blood Venous No Growth Day 2 Anaerobic Blood Culture - Final Cornyebacterium Minutissimum 07/02/18 15:58 Aerobic Blood Culture - Preliminary Blood Venous No Growth Day 2 Anaerobic Blood Culture - Preliminary No Growth Day 2 07/02/18 19:24 Nasal Screen MRSA (PCR) - Final Nasal Mrsa Not Detected Assess/Plan/Problems-Billing Assessment: This is a 57 year old female, well known to our service for multiple admissions over the past year that presented from [facility] with somnolence and AMS. - Patient Problems (1) Altered mental status Code(s): R41.82 - ALTERED MENTAL STATUS, UNSPECIFIED SNOMED Code(s): 660666422 Comment: - Concern for polypharmacy at admssion - Methadone held, but now appears to be delerirous, perhaps in narcotic withdrawal - Will restart methatdone at lower dose - Supportive care (2) CAD (coronary artery disease) Code(s): I25.10 - ATHSCL HEART DISEASE OF [place] CORONARY ARTERY W/O ANG PCTRS SNOMED Code(s): 62059296 Comment: - Continue ASA, Plavix, statin, and Carvedilol (3) Chronic pain Current Visit: No Code(s): G89.29 - OTHER CHRONIC PAIN SNOMED Code(s): 08527975 Comment: - On methadone for pain, had similar issue in April where she was lethargic - Methadone held last 2 days, will restart at lower dose and monitor mentation (4) Depression Code(s): F32.9 - MAJOR DEPRESSIVE DISORDER, SINGLE EPISODE, UNSPECIFIED SNOMED Code(s): 16186855 Comment: - Continue Zoloft (5) End stage renal failure on dialysis Code(s): N18.6 - END STAGE RENAL DISEASE; Z99.2 - DEPENDENCE ON RENAL DIALYSIS SNOMED Code(s): 402472709 Comment: - Was on PD, has been on HD since February, [facility] - Dr. Bianchi aware of this admission (6) Inflammatory arthropathy Code(s): M19.90 - UNSPECIFIED OSTEOARTHRITIS, UNSPECIFIED SITE SNOMED Code(s) : 3796661 Comment: - Pain control, supportive care, was on prednisone which she can no longer tolerate, restart enbrel at DC (7) Toxic encephalopathy Code(s): G92 - TOXIC ENCEPHALOPATHY SNOMED Code(s): 25183045 Comment: - Seems to be a recurrent problem in the setting of multiple chronic diseases and ESRD - Patient does not excrete metabolites 2/2 ESRD - Will need to continue to monitor LOC and balance appropriate medications (8) Anxiety Code(s): F41.9 - ANXIETY DISORDER, UNSPECIFIED SNOMED Code(s): 75407105 Comment: - no benzos, atarax PRN (9) COPD (chronic obstructive pulmonary disease) Current Visit: No Status: Chronic Code(s): J44.9 - CHRONIC OBSTRUCTIVE PULMONARY DISEASE, UNSPECIFIED SNOMED Code(s): 69371215 Comment: - with chronic respiratory failure on O2 - Does not appear to be in exacerbation Status and Disposition: Inpatient, DC back to [facility] when medically optimized.
[2018-07-05] MEDS: Methadone TAB* 5 MG PO PRN (20:41)
[2018-07-06] MEDS: hydrOXYzine HCL TAB* 10 MG PO PRN ×3 (02:34→21:26)
[2018-07-06] MEDS: Heparin VIAL(*) 5000 UNITS/ML VIAL (FIVE THOUSAND) SUBCUT SCH ×3 (05:33→21:26)
[2018-07-06 06:10] LABS: Calcium 9.5 mg/dL (8.6-10.3); EGFR African American 11.5 (>60); EGFR Non-African American 9.5 (>60); Potassium 4.6 mmol/L (3.5-5.0)
[2018-07-06] MEDS: Carvedilol TAB* 25 MG PO SCH ×2 (08:37→21:26)
[2018-07-06] MEDS: Atorvastatin* 20 MG TAB PO SCH (08:37)
[2018-07-06] MEDS: Pantoprazole TAB * 40 MG TAB PO SCH (08:37)
[2018-07-06] MEDS: amLODIPine TAB* 5 MG PO SCH (08:37)
[2018-07-06] MEDS: Clopidogrel TAB* 75 MG PO SCH (08:37)
[2018-07-06] MEDS: Sertraline* 50 MG TAB PO SCH (08:37)
[2018-07-06] MEDS: Aspirin 81 mg CHEW TAB* 81 MG TAB.CHEW PO SCH (08:38)
[2018-07-06] MEDS: Aliskiren TAB* 300 MG PO SCH (09:02)
--- NOTE | 2018-07-06 13:40 | PN ---
Subjective Date of Service: 07/06/18 Interval History: Patient seen and examined. Much improved from yesterday. Patient asking why she was so delerious, as she remembers being "not right". We discussed her medications at length and the possibility of toxic build up from methadone. Patient states she is feeling better but very tired. Denies fever headache or chills. No SOB, no chest pain, no abdominal pain. Feels relatively steady but needs her walker. Objective Active Medications: Acetaminophen (Tylenol Tab*) 650 mg PO Q6H PRN PRN Reason: FEVER/PAIN Aliskiren (Tekturna Tab*) 300 mg PO DAILY [facility] Last Admin: 07/06/18 09:02 Dose: 300 mg Amlodipine Besylate (Norvasc Tab*) 10 mg PO DAILY [facility] Last Admin: 07/06/18 08:37 Dose: 10 mg Aspirin (Aspirin 81 Mg Chew Tab*) 81 mg PO DAILY [facility] Last Admin: 07/06/18 08:38 Dose: 81 mg Atorvastatin Calcium (Lipitor*) 20 mg PO DAILY [facility] Last Admin: 07/06/18 08:37 Dose: 20 mg Carvedilol (Coreg Tab*) 50 mg PO BID [facility] Last Admin: 07/06/18 08:37 Dose: 50 mg Clopidogrel Bisulfate (Plavix Tab*) 75 mg PO DAILY [facility] Last Admin: 07/06/18 08:37 Dose: 75 mg Heparin Sodium (Porcine) (Heparin Vial(*)) 5,000 units SUBCUT Q8HR [facility] Last Admin: 07/06/18 05:33 Dose: 5,000 units Hydroxyzine HCl (Atarax Tab*) 10 mg PO Q6H PRN PRN Reason: ANXIETY Last Admin: 07/06/18 08:37 Dose: 10 mg Methadone HCl (Dolophine Tab*) 2.5 mg PO Q12H PRN PRN Reason: pain or agitation Last Admin: 07/05/18 20:41 Dose: 2.5 mg Pantoprazole Sodium (Protonix Tab*) 40 mg PO DAILY [facility] Last Admin: 07/06/18 08:37 Dose: 40 mg Sertraline HCl (Zoloft*) 50 mg PO DAILY [facility] Last Admin: 07/06/18 08:37 Dose: 50 mg Vital Signs - 8 hr 07/06/18 07/06/18 07/06/18 07:01 07:54 08:00 Temperature 97.1 F Pulse Rate 64 Respiratory 16 20 Rate Blood Pressure 132/74 (mmHg) O2 Sat by Pulse 98 96 96 Oximetry 07/06/18 07/06/18 08:37 11:30 Temperature Pulse Rate Respiratory 200 12 Rate Blood Pressure (mmHg) O2 Sat by Pulse Oximetry Oxygen Devices in Use Now: Nasal Cannula Appearance: alert, frail, ill-appearing Eyes: No Scleral Icterus, PERRLA Ears/Nose/Mouth/Throat: - - dry oral mucosa Neck: NL Appearance and Movements; NL JVP, Trachea Midline Respiratory: Symmetrical Chest Expansion and Respiratory Effort, - - diminished throughout but clear Cardiovascular: NL Sounds; No Murmurs; No JVD, RRR, No Edema Extremities: No Edema, No Clubbing, Cyanosis Neurological: Alert and Oriented x 3, - - general weakness and gait dysfunction Nutrition: Taking PO's - Nutrition: Malnutrition Diagnosis/Plan Malnutrition Assessment by Registered Dietitian: Malnutrition Assessment Clinical Characteristics Chronic,Severe Malnutrition Assessment: - severe temporal and clavicle muscle wasting Criteria - severe buccal fat pad wasting * note BMI <18.5 Malnutrition Assessment: 1. renal diet; soft textures. Maintain liberal Interventions restrictions as renal parameters allow. 2. mid-afternoon snack as desired PB&J sandwich (no crust) + chocolate milk (~500 kcals, 18 g prot) 3. daily additions to breakfast tray hard boiled egg and peanut butter x2 (325 kcals , 12 g prot) 4. NO liquid supplements per pt preference Malnutrition Assessment: Goals 1. Adequate po intake to replete lean body mass in the setting of malnutrition 2. Appropriate fluid/electrolyte balance in the setting of ESRD on HD w/o further dietary restriction 3. Achieve bowel regularity w/ adequate po intake w/o diarrhea or constipation Result Diagrams: 07/03/18 06:13 07/06/18 04:41 Microbiology and Other Data: Microbiology 07/02/18 15:45 Aerobic Blood Culture - Preliminary Blood Venous No Growth Day 2 Anaerobic Blood Culture - Final Cornyebacterium Minutissimum 07/02/18 15:58 Aerobic Blood Culture - Preliminary Blood Venous No Growth Day 2 Anaerobic Blood Culture - Preliminary No Growth Day 2 07/02/18 19:24 Nasal Screen MRSA (PCR) - Final Nasal Mrsa Not Detected Assess/Plan/Problems-Billing Assessment: This is a 57 year old female, well known to our service for multiple admissions over the past year that presented from [facility] with somnolence and AMS. - Patient Problems (1) Altered mental status Code(s): R41.82 - ALTERED MENTAL STATUS, UNSPECIFIED SNOMED Code(s): 054957804 Comment: - Concern for polypharmacy at admssion, today patient is back at her baseline, conversant and alert - Methadone continuing at lower dose, patient seems to be tolerating without adverse affects and pain is controlled (2) CAD (coronary artery disease) Code(s): I25.10 - ATHSCL HEART DISEASE OF [place] CORONARY ARTERY W/O ANG PCTRS SNOMED Code(s): 75006954 Comment: - Continue ASA, Plavix, statin, and Carvedilol (3) Chronic pain Current Visit: No Code(s): G89.29 - OTHER CHRONIC PAIN SNOMED Code(s): 96238382 Comment: - On methadone for pain, had similar issue in April where she was lethargic - Methadone being tolerated at lower dose after washout period (4) Depression Code(s): F32.9 - MAJOR DEPRESSIVE DISORDER, SINGLE EPISODE, UNSPECIFIED SNOMED Code(s): 87617233 Comment: - Continue Zoloft (5) End stage renal failure on dialysis Code(s): N18.6 - END STAGE RENAL DISEASE; Z99.2 - DEPENDENCE ON RENAL DIALYSIS SNOMED Code(s): 736099907 Comment: - Was on PD, has been on HD since February, [facility] - Dr. Bianchi aware of this admission, will have dialysis in AM (6) Inflammatory arthropathy Code(s): M19.90 - UNSPECIFIED OSTEOARTHRITIS, UNSPECIFIED SITE SNOMED Code(s) : 8421140 Comment: - Pain control, supportive care, was on prednisone which she can no longer tolerate, restart enbrel at DC (7) Toxic encephalopathy Code(s): G92 - TOXIC ENCEPHALOPATHY SNOMED Code(s): 62712672 Comment: - Seems to be a recurrent problem in the setting of multiple chronic diseases, narcotincs and ESRD - Patient does not excrete metabolites 2/2 ESRD, metabolities are poorly removed by HD - Recommend drug holidays with her methadone dosing to prevent further episodes of toxic metabolic encephalopathy, patient would likely benefit from every other day dosing or a 2 day washout period every 2 weeks (8) Anxiety Code(s): F41.9 - ANXIETY DISORDER, UNSPECIFIED SNOMED Code(s): 04042106 Comment: - no benzos, atarax PRN (9) COPD (chronic obstructive pulmonary disease) Current Visit: No Status: Chronic Code(s): J44.9 - CHRONIC OBSTRUCTIVE PULMONARY DISEASE, UNSPECIFIED SNOMED Code(s): 74643507 Comment: - with chronic respiratory failure on O2 - Does not appear to be in exacerbation Status and Disposition: Inpatient, if mentation remains optimized will DC back to [facility] after dialysis tomorrow.
[2018-07-07] MEDS: Heparin VIAL(*) 5000 UNITS/ML VIAL (FIVE THOUSAND) SUBCUT SCH ×3 (05:08→20:41)
[2018-07-07] MEDS: amLODIPine TAB* 5 MG PO SCH ×2 (07:49→16:49)
[2018-07-07] MEDS: Sertraline* 50 MG TAB PO SCH ×2 (07:49→16:50)
[2018-07-07] MEDS: Aliskiren TAB* 300 MG PO SCH ×2 (07:49→16:48)
[2018-07-07] MEDS: Aspirin 81 mg CHEW TAB* 81 MG TAB.CHEW PO SCH ×2 (07:49→16:49)
[2018-07-07] MEDS: Clopidogrel TAB* 75 MG PO SCH ×2 (07:49→16:50)
[2018-07-07] MEDS: Carvedilol TAB* 25 MG PO SCH ×3 (07:49→20:41)
[2018-07-07] MEDS: Atorvastatin* 20 MG TAB PO SCH ×2 (07:49→16:49)
[2018-07-07] MEDS: Pantoprazole TAB * 40 MG TAB PO SCH ×2 (07:49→16:50)
[2018-07-07] MEDS: hydrOXYzine HCL TAB* 10 MG PO PRN ×3 (09:38→23:52)
[2018-07-07] MEDS ORDERED: Heparin DIALYSIS ONLY(*) 1,000 UNITS/ML VIAL DIALYSIS ONE (13:00)
[2018-07-07] MEDS ORDERED: EPOETIN ALFA-EPBX * 10,000 UNIT/ML VIAL IV ONE (13:00)
--- NOTE | 2018-07-07 14:55 | PN ---
Subjective Date of Service: 07/07/18 Interval History: Patient seen and examined. Going to dialysis today, states she had a bad morning , feels shaky and thought she was getting confused again this AM. States she is always "nervous on dialysis days". Denies SOB, no fever, no chest pain, no further complaints. Objective Active Medications: Acetaminophen (Tylenol Tab*) 650 mg PO Q6H PRN PRN Reason: FEVER/PAIN [place] (Tekturna Tab*) 300 mg PO DAILY [facility] Last Admin: 07/06/18 09:02 Dose: 300 mg Amlodipine Besylate (Norvasc Tab*) 10 mg PO DAILY [facility] Last Admin: 07/06/18 08:37 Dose: 10 mg Aspirin (Aspirin 81 Mg Chew Tab*) 81 mg PO DAILY [facility] Last Admin: 07/06/18 08:38 Dose: 81 mg Atorvastatin Calcium (Lipitor*) 20 mg PO DAILY [facility] Last Admin: 07/06/18 08:37 Dose: 20 mg Carvedilol (Coreg Tab*) 50 mg PO BID [facility] Last Admin: 07/06/18 21:26 Dose: 50 mg Clopidogrel Bisulfate (Plavix Tab*) 75 mg PO DAILY [facility] Last Admin: 07/06/18 08:37 Dose: 75 mg Heparin Sodium (Porcine) (Heparin Vial(*)) 5,000 units SUBCUT Q8HR [facility] Last Admin: 07/07/18 05:08 Dose: 5,000 units Hydroxyzine HCl (Atarax Tab*) 10 mg PO Q6H PRN PRN Reason: ANXIETY Last Admin: 07/07/18 09:38 Dose: 10 mg Methadone HCl (Dolophine Tab*) 2.5 mg PO Q12H PRN PRN Reason: pain or agitation Last Admin: 07/05/18 20:41 Dose: 2.5 mg Pantoprazole Sodium (Protonix Tab*) 40 mg PO DAILY [facility] Last Admin: 07/06/18 08:37 Dose: 40 mg Sertraline HCl (Zoloft*) 50 mg PO DAILY [facility] Last Admin: 07/06/18 08:37 Dose: 50 mg Vital Signs - 8 hr 07/07/18 07/07/18 07/07/18 07:17 09:38 11:17 Temperature 98.3 F 97.6 F Pulse Rate 62 62 Respiratory 18 20 18 Rate Blood Pressure 116/59 129/58 (mmHg) O2 Sat by Pulse 99 100 Oximetry Oxygen Devices in Use Now: Nasal Cannula Appearance: alert, ill-appearing, NAD Eyes: PERRLA Ears/Nose/Mouth/Throat: Mucous Membranes Moist Neck: NL Appearance and Movements; NL JVP, Trachea Midline Respiratory: Symmetrical Chest Expansion and Respiratory Effort, - - diminished throughout lung curry Cardiovascular: NL Sounds; No Murmurs; No JVD, RRR Abdominal: NL Sounds; No Tenderness; No Distention Lymphatic: No Auricular Adenopathy Skin: No Nodules or Sclerosis Neurological: Alert and Oriented x 3 Nutrition: Taking PO's - Nutrition: Malnutrition Diagnosis/Plan Malnutrition Assessment by Registered Dietitian: Malnutrition Assessment Clinical Characteristics Chronic,Severe Malnutrition Assessment: - severe temporal and clavicle muscle wasting Criteria - severe buccal fat pad wasting * note BMI <18.5 Malnutrition Assessment: 1. renal diet; soft textures. Maintain liberal Interventions restrictions as renal parameters allow. 2. mid-afternoon snack as desired PB&J sandwich (no crust) + chocolate milk (~500 kcals, 18 g prot) 3. daily additions to breakfast tray hard boiled egg and peanut butter x2 (325 kcals , 12 g prot) 4. NO liquid supplements per pt preference Malnutrition Assessment: Goals 1. Adequate po intake to replete lean body mass in the setting of malnutrition 2. Appropriate fluid/electrolyte balance in the setting of ESRD on HD w/o further dietary restriction 3. Achieve bowel regularity w/ adequate po intake w/o diarrhea or constipation Result Diagrams: 07/03/18 06:13 07/06/18 04:41 Microbiology and Other Data: Microbiology 07/02/18 15:45 Aerobic Blood Culture - Preliminary Blood Venous No Growth Day 2 Anaerobic Blood Culture - Final Cornyebacterium Minutissimum 07/02/18 15:58 Aerobic Blood Culture - Preliminary Blood Venous No Growth Day 2 Anaerobic Blood Culture - Preliminary No Growth Day 2 07/02/18 19:24 Nasal Screen MRSA (PCR) - Final Nasal Mrsa Not Detected Assess/Plan/Problems-Billing Assessment: This is a 57 year old female, well known to our service for multiple admissions over the past year that presented from [facility] with somnolence and AMS. - Patient Problems (1) Altered mental status Code(s): R41.82 - ALTERED MENTAL STATUS, UNSPECIFIED SNOMED Code(s): 121091846 Comment: - Concern for polypharmacy at admssion, today patient is back at her baseline, conversant and alert - Methadone continuing at lower dose, patient seems to be tolerating without adverse affects and pain is controlled (2) CAD (coronary artery disease) Code(s): I25.10 - ATHSCL HEART DISEASE OF [place] CORONARY ARTERY W/O ANG PCTRS SNOMED Code(s): 59810232 Comment: - Continue ASA, Plavix, statin, and Carvedilol (3) Chronic pain Current Visit: No Code(s): G89.29 - OTHER CHRONIC PAIN SNOMED Code(s): 61813889 Comment: - On methadone for pain, had similar issue in April where she was lethargic - Methadone being tolerated at lower dose after washout period (4) Depression Code(s): F32.9 - MAJOR DEPRESSIVE DISORDER, SINGLE EPISODE, UNSPECIFIED SNOMED Code(s): 47771889 Comment: - Continue Zoloft (5) End stage renal failure on dialysis Code(s): N18.6 - END STAGE RENAL DISEASE; Z99.2 - DEPENDENCE ON RENAL DIALYSIS SNOMED Code(s): 533605178 Comment: - Was on PD, has been on HD since February, [facility] - Dr. Bianchi aware of this admission, will have dialysis in AM (6) Inflammatory arthropathy Code(s): M19.90 - UNSPECIFIED OSTEOARTHRITIS, UNSPECIFIED SITE SNOMED Code(s) : 8687378 Comment: - Pain control, supportive care, was on prednisone which she can no longer tolerate, restart enbrel at [place] (7) Toxic encephalopathy Code(s): G92 - TOXIC ENCEPHALOPATHY SNOMED Code(s): 39070797 Comment: - Seems to be a recurrent problem in the setting of multiple chronic diseases, narcotincs and ESRD - Patient does not excrete metabolites 2/2 ESRD, metabolities are poorly removed by HD - Recommend drug holidays with her methadone dosing to prevent further episodes of toxic metabolic encephalopathy, patient would likely benefit from every other day dosing or a 2 day washout period every 2 weeks (8) Anxiety Code(s): F41.9 - ANXIETY DISORDER, UNSPECIFIED SNOMED Code(s): 21731315 Comment: - no benzos, atarax PRN (9) COPD (chronic obstructive pulmonary disease) Current Visit: No Status: Chronic Code(s): J44.9 - CHRONIC OBSTRUCTIVE PULMONARY DISEASE, UNSPECIFIED SNOMED Code(s): 71151641 Comment: - With chronic respiratory failure on O2, remains with adequate sats on NC now (was on bipap in ICU) - Does not appear to be in exacerbation (10) DNR (do not resuscitate) Status and Disposition: Inpatient, will re-evaluate after dialysis today if she is appropriate to go back to [facility] today or tomorrow.
[2018-07-08] MEDS: Methadone TAB* 5 MG PO PRN (02:14)
[2018-07-08] MEDS: Heparin VIAL(*) 5000 UNITS/ML VIAL (FIVE THOUSAND) SUBCUT SCH (05:01)
[2018-07-08] MEDS: Sertraline* 50 MG TAB PO SCH (07:51)
[2018-07-08] MEDS: Aliskiren TAB* 300 MG PO SCH (07:51)
[2018-07-08] MEDS: Atorvastatin* 20 MG TAB PO SCH (07:51)
[2018-07-08] MEDS: Aspirin 81 mg CHEW TAB* 81 MG TAB.CHEW PO SCH (07:51)
[2018-07-08] MEDS: Pantoprazole TAB * 40 MG TAB PO SCH (07:51)
[2018-07-08] MEDS: Clopidogrel TAB* 75 MG PO SCH (07:51)
[2018-07-08] MEDS: Carvedilol TAB* 25 MG PO SCH (07:51)
[2018-07-08] MEDS: amLODIPine TAB* 5 MG PO SCH (07:52)
--- NOTE | 2018-07-08 11:29 | DS ---
CC: Dr. Brigitte Patel at [facility]; Dr. Letty Duffy; Dr. Bianchi. * DISCHARGE SUMMARY: DATE OF ADMISSION: 07/02/18 DATE OF DISCHARGE: 07/08/18 PRIMARY CARE PROVIDER: Dr. Letty Duffy. However, the patient is currently a resident at [facility]. ATTENDING PHYSICIAN: Dr. Julius Nash.* (DICTATED BY JENNA CAMPA, SNEHA) HOSPITAL COURSE: This is a 57-year-old female patient, very well known to our service with a longstanding history of polycystic kidney disease, end-stage renal disease on hemodialysis, inflammatory arthropathy, and multiple comorbid conditions. The patient has had many hospitalizations recently; however, for this most recent stay she came from [facility] with an altered mental status. Per the record the patient was having her dialysis and then towards the end of her treatment was getting more and more confused, then apparently some increased work of breathing and some shortness of breath. She was in hypoxic respiratory failure. In the ED she was on a high-flow cannula at 31%. However, her mentation continued to be poor and her level of consciousness was not improving. She was then placed on BiPAP and sent to the ICU for closer monitoring. The patient did well in the ICU, managed to get off BiPAP. Her biggest obstacle is the fact that the patient does have chronic pain per the record, was taking methadone 2 times a day. It was felt that this was possibly the etiology of her altered mental status in that her hemodialysis did not really effectively remove the metabolites of methadone. She had 2 days of a drug holiday while still undergoing dialysis. Eventually, her mentation improved. Her respiratory status also improved and the patient was back to baseline. I had a long conversation with the patient about her medications. We discussed her pain and pain medications at length. She is in agreement that we will cut her methadone dosing to 1 tablet 5 mg every other day and to be given only p.r.n. as opposed to scheduled. The patient is agreeable to that plan. DISCHARGE DIAGNOSES: 1. Altered mental status likely secondary to polypharmacy and inability to excrete methadone metabolites. 2. History of coronary artery disease, currently stable. 3. History of chronic pain secondary to inflammatory arthropathy, controlled. 4. History of depression on SSRI, stable. 5. End-stage renal disease on hemodialysis Saturday, Saturday, and Saturday. Follows with Dr. Bianchi. 6. Toxic encephalopathy secondary to diagnosis #1, now resolved. 7. History of anxiety on Atarax as needed. 8. History of chronic obstructive pulmonary disease, oxygen dependent. Currently stable, not in exacerbation. DISCHARGE MEDICATIONS: Include: 1. Atorvastatin 20 mg p.o. daily. 2. Zofran 4 mg p.o. every 8 hours as needed. 3. Tylenol 500 to 1000 mg p.o. daily as needed. 4. Enbrel 25 mg subcu weekly. 5. Tekturna 300 mg p.o. daily. 6. Methadone 5 mg p.o. every other day as needed (this is a change). 7. Kayexalate 15 g p.o. as needed. 8. Zoloft 50 mg p.o. daily. 9. Carvedilol 50 mg p.o. b.i.d. 10. Hydroxyzine tablet 10 mg p.o. t.i.d. as needed for anxiety. 11. Omeprazole 20 mg p.o. daily. 12. Plavix 75 mg p.o. daily. 13. Aspirin 81 mg daily. 14. Amlodipine 10 mg p.o. daily. REVIEW OF SYSTEMS: On the day of discharge, the patient denies any fever or chills. She does complain of fatigue at baseline and some general weakness. Denies any dizziness, confusion, or shortness of breath. No chest pain, no abdominal pain, no nausea, no vomiting. No further constitutional complaints. PHYSICAL EXAMINATION: In general this is a very frail, ill-appearing female who appears to be above her stated age. Vital Signs: Blood pressure 116/59, heart rate 63, respiratory rate 16, O2 saturation 100% on nasal cannula 3 liters , temperature is 96.8. HEENT: The patient is atraumatic, normocephalic. PERRLA. Nonicteric sclerae. Oral mucosa is moist. Dentition is poor. Tongue is midline. Neck is supple and nontender. No JVD noted. No carotid bruits auscultated. No thyromegaly appreciated. Cardiovascular: S1 and S2 present. No murmurs, gallops, or rubs noted. Rate and rhythm are currently regular. Lungs are clear at the apices bilaterally, otherwise diminished throughout. She has moderate air entry. No wheezing, rhonchi, or rales noted. Abdomen: Soft and nontender. Mildly distended. Positive bowel sounds in all 4 quadrants. No organomegaly noted. : Deferred. Musculoskeletal: There is no clubbing, no cyanosis, no edema. She has significant muscle wasting of the extremities. She does have a wound which is dressed with Mepilex on the right lower leg which was present upon admission. She has an unsteady gait, ambulates with a walker. Skin: Warm and dry. Color is poor. Skin quality is very dry, ashy, and scaly. Again that is her baseline. Neurologic: She does have periods of forgetfulness, but is otherwise alert and oriented x3 and no gross focal deficits noted. Psychiatric: She is cooperative and appropriate. LABORATORY DATA: WBC is 4.9, RBC is 2.86, hemoglobin 8.5, hematocrit 26, platelets 120. Sodium 135, potassium 4.6, chloride 98, CO2 of 32, BUN 38, creatinine 4.74. GFR is 9.5. She does not make urine. Glucose 90, calcium 9.5 , ammonia level 44, TSH was 2.88. IMAGING: Chest x-ray upon admission dated 07/02/18 shows cardiomegaly, pulmonary interstitial edema, bilateral pleural effusions with bibasilar atelectasis. Please note these findings are consistent with her chest x-ray dated 05/23/18 and does not represent acute changes. DISPOSITION: The patient will be discharged back to [facility] today. DIET: Diet would be renal, heart healthy as tolerated. ACTIVITY: As tolerated. FOLLOWUP: The patient is to follow up with Dr. Bianchi for her renal management. She should follow up with dialysis Saturday, Saturday, and Saturday per her usual schedule and also follow up with Dr. Brigitte Patel attending at [facility]. If the patient is discharged from [facility] she should follow up with Dr. Letty Duffy her primary care provider. TIME SPENT: 35 minutes interfacing with the patient and staff regarding her discharge plan of care. JENNA CAMPA NP [id number]/[facility] #: [id number] EL
[2018-07-08 12:03] VITALS: BP 109/56
== END 2018-07-08 12:35 | DRG 91 ==
LOC: ED 14:33 → ICU 18:03 → MED 07-04 18:35
PROVIDERS: ADMIT Internal Medicine; ATTEND Internal Medicine
PROC: 5A1D70Z Performance of Urinary Filtration, Intermittent, Less than 6 Hours Per Day (ICD-10-PCS; principal; 2018-07-04)
PROC: 5A1D70Z Performance of Urinary Filtration, Intermittent, Less than 6 Hours Per Day (ICD-10-PCS; 2018-07-07)
DX: G92 Toxic encephalopathy (principal); N18.6 End stage renal disease; E43 Unspecified severe protein-calorie malnutrition; J96.22 Acute and chronic respiratory failure with hypercapnia; J96.21 Acute and chronic respiratory failure with hypoxia; 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 disease with heart failure and with stage 5 chronic kidney disease, or end stage renal disease; Z68.1 Body mass index [BMI] 19.9 or less, adult; Q61.3 Polycystic kidney, unspecified; I42.9 Cardiomyopathy, unspecified; I50.9 Heart failure, unspecified; Z99.81 Dependence on supplemental oxygen; R41.82 Altered mental status, unspecified; I25.10 Atherosclerotic heart disease of native coronary artery without angina pectoris; Z66 Do not resuscitate; T50.905A Adverse effect of unspecified drugs, medicaments and biological substances, initial encounter; Y92.538 Other ambulatory health services establishments as the place of occurrence of the external cause; F32.9 Major depressive disorder, single episode, unspecified; T40.3X5A Adverse effect of methadone, initial encounter; M06.9 Rheumatoid arthritis, unspecified; G89.29 Other chronic pain; J44.9 Chronic obstructive pulmonary disease, unspecified; F11.90 Opioid use, unspecified, uncomplicated; Z99.2 Dependence on renal dialysis; Z86.73 Personal history of transient ischemic attack (TIA), and cerebral infarction without residual deficits; Z79.1 Long term (current) use of non-steroidal anti-inflammatories (NSAID); Z79.82 Long term (current) use of aspirin; Z79.899 Other long term (current) drug therapy; Z88.5 Allergy status to narcotic agent; Z91.048 Other nonmedicinal substance allergy status; Z84.1 Family history of disorders of kidney and ureter; Z82.49 Family history of ischemic heart disease and other diseases of the circulatory system
CPT/HCPCS: 36415; 36600; 71045; 80048; 80053; 82140; 82607; 82803; 83605; 83880; 84443; 84484; 85025; 85610; 85730; 86706; 87040; 87077; 87205; 87340; 87641; 93005; 94660; 99285; A9270-GY; J0456; J0696; J1630; J1644; J2310; Q5106

== ENCOUNTER 2018-07-22 13:17 | Emergency (ER) | payer MEDICARE, MEDICAID ==
--- NOTE | 2018-07-22 13:33 | ED ---
Altered Mental Status - HPI Summary HPI Summary: This pt is a 57 y/o female presenting to [facility] via EMS from [facility] for AMS. EMS reports they received a call for unresponsiveness today. Upon their arrival to scene pt was fully alert and oriented x3. Per EMS, staff were adamant about bringing the pt to the ED. Pt states staff at [facility] were trying to wake her up and she just didn't want to wake up. 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 She reports feeling fine. Pt notes she had dialysis yesterday and had 3L of fluids taken out and feels wiped out, fatigued. She states her breathing has been labored lately. Denies fever, chills, chest pain. Pt wears 2L of oxygen at baseline. - History Of Current Complaint Stated Complaint: AMS Time Seen by Provider: 07/22/18 13:25 Hx Obtained From: Patient, EMS Onset/Duration: Resolved Severity Currently: None Character: Responsiveness - per staff at [facility] Aggravating Factor(s): Nothing Alleviating Factor(s): Nothing Associated Signs And Symptoms: Positive: Weakness - generalized weakness, SOB.. Negative: Fever - Allergies/Home Medications Allergies/Adverse Reactions: Allergies Allergy/AdvReac Type Severity Reaction Status Date / Time Adhesive Tape Allergy Intermediate Hives Verified 07/22/18 13:28 codeine AdvReac Severe GI Upset Verified 07/22/18 13:28 PMH/Surg Hx/FS Hx/Imm Hx Endocrine/Hematology History: Reports: Hx Anemia - gets epogen shot Denies: Hx Blood Disorders, Hx Blood Transfusions, Hx Bone Marrow Disease, Hx Diabetes, Hx Systemic Lupus Erythematosus, Hx Thyroid Disease, Hx Unexplained Bleeding Cardiovascular History: Reports: Hx Aneurysm, Hx Cardiomegaly, Hx Congestive Heart Failure, Hx Coronary Artery Disease, Hx Hypercholesterolemia, Hx Hypertension, Other Cardiovascular Problems/Disorders - CAD, [place], MURMUR, bradycardia Denies: Hx Pacemaker/ICD, Hx Peripheral Vascular Disease Respiratory History: Reports: Hx Chronic Obstructive Pulmonary Disease (COPD), Hx Pleural Effusion Denies: Hx Pneumonia, Hx Pulmonary Edema, Hx Pulmonary Embolism, Hx Seasonal Allergies, Hx Sleep Apnea GI History: Reports: Hx Diverticulosis, Hx Gastroesophageal Reflux Disease, Hx Ulcer History: Reports: Hx Chronic Renal Failure - dialysis patient, Hx Dialysis - HEMODIALYSIS [facility]IA [facility], Hx Kidney Infection, Hx Renal Disease - ESRD, polycystic kidney disease, Other Problems/Disorders - polycystic kidney, does notvoid Denies: Hx Kidney Stones Musculoskeletal History: Reports: Hx Arthritis, Hx Rheumatoid Arthritis, Hx Back Problems, Hx Orthopedic Injury - left hip fx, Other Musculoskeletal History - LEFT HIP FX Denies: Hx Osteoporosis Sensory History: Denies: Hx Cataracts, Hx Contacts or Glasses, Hx Eye Injury, Hx Eye Prosthesis, Hx Glaucoma, Hx Legally Blind, Hx Macular Degeneration, Hx Vision Problem, Hx Deafness, Hx Hearing Aid, Hx Hearing Problem Opthamlomology History: Denies: Hx Cataracts, Hx Contacts or Glasses, Hx Eye Injury, Hx Eye Prosthesis, Hx Glaucoma, Hx Legally Blind, Hx Macular Degeneration, Hx Vision Problem Neurological History: Reports: Hx CVA, Hx Seizures - last admission in ED, Other Neuro Impairments/Disorders - brain aneurism x5 per pt Denies: Hx Dementia, Hx Developmental Delay, Hx Headaches, Hx Migraine, Hx Nerve Disease Psychiatric History: Reports: Hx Anxiety, Hx Depression Denies: Hx Panic Disorder, Hx Post Traumatic Stress Disorder, Other Psychiatric Issues/Disorders - Cancer History Hx Chemotherapy: No - Surgical History Surgery Procedure, Year, and Place: dialysis port x2 Hx Anesthesia Reactions: No - Immunization History Date of Tetanus Vaccine: Unknown Infectious Disease History: Denies: Hx of Known/Suspected MRSA, Hx Tuberculosis - Family History Known Family History: Negative: Cardiac Disease, Hypertension, Diabetes - Social History Alcohol Use: None Hx Substance Use: No Substance Use Type: Reports: None Hx Tobacco Use: Yes Smoking Status (MU): Former Smoker Type: Cigarettes Amount Used/How Often: not much, only while in college Have You Smoked in the Last Year: No Review of Systems Positive: Fatigue. Negative: Fever, Chills Negative: Chest Pain Positive: Shortness Of Breath Positive: Weakness - generalized All Other Systems Reviewed And Are Negative: Yes Physical Exam - Summary Physical Exam Summary: Appearance: Chronically ill-appearing. Appears much older than stated age. Skin: Warm, dry, no obvious rash Eyes: sclera anicteric, no conjunctival pallor ENT: mucous membranes moist, pharynx appears normal Neck: Supple, nontender Respiratory: Mild distress with some tachypnea noted. Cardiovascular: Normal S1, S2. No murmurs. Normal distal pulses in tibial and radial bilaterally. Abdomen: Soft, nontender, normal active bowel sounds present Musculoskeletal: Normal, Strength/ROM Intact Neurological: A&Ox3, awake and alert, mentation is normal, speech is fluent and appropriate Psychiatric: affect is normal, does not appear anxious or depressed Triage Information Reviewed: Yes Vital Signs On Initial Exam: Initial Vitals Temp Pulse Resp BP Pulse Ox 98.2 F 66 18 171/88 97 07/22/18 13:29 07/22/18 13:29 07/22/18 13:29 07/22/18 13:29 07/22/18 13:29 Vital Signs Reviewed: Yes - Douglas Coma Scale Best Eye Response: 4 - Spontaneous Best Motor Response: 6 - Obeys Commands Best Verbal Response: 5 - Oriented Coma Scale Total: 15 Diagnostics - Laboratory Result Diagrams: 07/22/18 13:37 07/22/18 13:37 Lab Statement: Any lab studies that have been ordered have been reviewed, and results considered in the medical decision making process. - Radiology Chest XR Radiology Interpretation Completed By: Radiologist Summary of Radiographic Findings: IMPRESSION: Pulmonary edema with associated pleural effusions increase in severity compared with the prior exam. Dr. Tucker has reviewed this report. - CT Brain CT CT Interpretation Completed By: Radiologist Summary of CT Findings: IMPRESSION: 1. No acute intracranial pathology. 2. Multifocal encephalomalacia consistent with remote infarcts. 3. Large right mastoid effusion. Dr. Tuckre has reviewed this report. Altered Mental Statu Course/Dx - Course Assessment/Plan: Pt is a 57 y/o female, dialysis pt (last session was yesterday) , who presents via EMS from [facility] for AMS. Upon EMS arrival to scene pt was fully alert and oriented x3. Pt states staff at [facility] were trying to wake her up but didn't want as she is wiped out from dialysis. She states her breathing has been labored lately. A head CT scan was done due to concerns from her facility about a fall with injury to the head a couple of days ago with transient brief LOC. Pt initially refused transport then, but is amenable to the scan now. CHRISSY Martinez, received a call from the MEDICAL ESTHETICIAN at [facility] who reports pt had a fall yesterday with a positive LOC. Pt is on Plavix. Per MEDICAL ESTHETICIAN, pt had previously declined a brain CT. Chest XR shows pulmonary edema with associated pleural effusions increase in severity compared with the prior exam. Brain CT reveals magan consistent with remote infarcts. 3. Large right mastoid effusion. Dr. Tucker has reviewed this report. Pt will be discharged back to assisted with follow up from her PCP if needed. - Diagnoses Provider Diagnoses: Altered mental status Discharge - Sign-Out/Discharge Documenting (check all that apply): Patient Departure - Discharge home Patient Received Moderate/Deep Sedation with Procedure: No - Discharge Plan Condition: Good Disposition: HOME Patient Education Materials: Altered Mental Status (ED) Referrals: Letty Duffy MD [Primary Care Provider] - If Needed - Billing Disposition and Condition Condition: GOOD Disposition: Home - Attestation Statements Document Initiated by Andreinae: Yes Documenting Scribe: Kaci Medley Provider For Whom Khariibe is Documenting (Include Credential): Walter Tucker MD Scribe Attestation: Kaci Morales scribed for Walter Tucker MD on 07/22/18 at 1929. Scribe Documentation Reviewed: Yes Provider Attestation: The documentation as recorded by the Kaci woods accurately reflects the service I personally performed and the decisions made by me, Walter Tucker MD Status of Scribe Document: Viewed
[2018-07-22 13:51] LABS: ABS Basophils 0 10^3/ul (0-0.2); ABS Eosinophils 0.4 10^3/ul (0-0.6); ABS Monocytes 0.4 10^3/ul (0-0.8); ABS Nucleated RBC 0 10^3/ul; Eosinophil % 8.7 %; Hematocrit 32 % (35-47); Hemoglobin 10.2 g/dl (12.0-16.0); Lymphocyte % 20.9 %; Mean Corpuscular HGB Conc 32 g/dl (31-36); Mean Corpuscular Hemoglobin 31 pg (27-31); Mean Corpuscular Volume 97 fL (80-97); Mean Platelet Volume 6.9 fL (7.4-10.4); Nucleated Red Blood Cells % 0; Platelet Count 146 10^3/ul (150-450); Red Blood Count 3.25 10^6/ul (4.00-5.40); Red Cell Distribution Width 18 % (10.5-15); White Blood Count 4.9 10^3/ul (3.5-10.8)
[2018-07-22 14:01] LABS: Albumin 3.8 g/dL (3.2-5.2); Albumin/Globulin Ratio 1.8 (1-3); BUN/Creatinine Ratio 9.4 (8-20); EGFR African American 15.8 (>60); Globulin 2.1 g/dL (2-4); Potassium 4.8 mmol/L (3.5-5.0); Total Bilirubin 0.5 mg/dL (0.2-1.0); Total Protein 5.9 g/dL (6.4-8.9)
[2018-07-22] MEDS ORDERED: hydrOXYzine HCL TAB* 10 MG PO ONE (14:10)
[2018-07-22 16:59] VITALS: BP 156/86
== END 2018-07-22 16:54 | disposition home or self-care (01) ==
LOC: ED 13:17
DX: R41.82 Altered mental status, unspecified (principal); R53.1 Weakness; R06.02 Shortness of breath; I25.10 Atherosclerotic heart disease of native coronary artery without angina pectoris; J44.9 Chronic obstructive pulmonary disease, unspecified; K21.9 Gastro-esophageal reflux disease without esophagitis; N18.9 Chronic kidney disease, unspecified; Z99.2 Dependence on renal dialysis; Z87.891 Personal history of nicotine dependence; R53.83 Other fatigue
CPT/HCPCS: 36415; 70450; 71046; 80053; 85025; 99283; A9270-GY

== ENCOUNTER 2019-05-06 12:08 | Emergency (ER) | payer MEDICARE, MEDICAID ==
[2019-05-06] MEDS ORDERED: NS 0.9% 1000 ML** 1,000 ML IV ONE (12:13)
--- OUTSIDE RECORDS SUMMARY | 2019-05-06 12:44 | XMS REPORT | Continuity of Care Document ---
:1960 External Reference #:[id number] Author Name RAUL Gallardo (transmitted by agent of provider Annette Mancilla) Address [address] [place] [address] Care Team Providers Name Role Phone Jet Bianchi M.D. 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 Risk Lead [phone] Problems Description No Information Available Social History Type Date Description Comments Sex Unknown Tobacco Use Start: Unknown Patient has never smoked Smoking Status Reviewed: 09/02/18 Patient has never smoked Allergies, Adverse Reactions, Alerts Active Allergies Reaction Severity Comments Date Codeine 04/01/2018 Adhesives skin tear 04/01/2018 Lorazepam patient states can not tolerae 05/08/2018 Medications Active Medications SIG Qnty Indications Ordering Provider Date Tylenol Extra Strength 500 mg po prn Unknown 500mg Tablets Eucerin apply daily as Unknown Cream directed Albuterol Sulfate every 4 hours prn Unknown sob (2.5mg/3ML) 0.083% Nebulizer Saline Nasal [place] q 2 hrs prn Unknown 0.65% Solution Melatonin 1 po q hs Unknown 3mg Capsules Atorvastatin Calcium po qd Unknown 20mg Tablets Kayexalate 15 gm po prn per Unknown Powder md order Imodium A-D 2 caps po q 8 Unknown 2mg Capsules hours prn. Carvedilol 50 mg po bid Unknown 25mg Tablets Dialyvite po qd Unknown Calcium Acetate (Phos 2 po before meals Unknown Binder) 667mg Tablets Buspirone HCL po bid Unknown 5mg Tablets Amlodipine Besylate 1/2 by mouth every Unknown 5mg day Tablets Tekturna po qd Unknown 300mg Tablets Sertraline HCL po qd Unknown 50mg Tablets Omeprazole po qd Unknown 20mg Capsules DR Hydroxyzine HCL 1 by mouth every Unknown 10mg day to three times Tablets a day as needed anxiety Enbrel sq every 7 days Unknown 25mg/0.5ML Soln Prefill Syringe Clopidogrel Bisulfate po qd Unknown 75mg Tablets Atorvastatin Calcium po qd Unknown 20mg Tablets Aspirin 81 Low Dose po qd` Unknown 81mg Chewtabs Immunizations Description No Information Available Vital Signs Date Vital Result Comment 04/30/2019 11:16am Height 67 inches 5'7" Weight 131.00 lb BP Systolic 115 mmHg BP Diastolic 50 mmHg BMI (Body Mass Index) 20.5 kg/m2 Heart Rate 67 /min Respiratory Rate 16 /min Pain Level 0 04/16/2019 11:32am Height 67 inches 5'7" Weight 123.00 lb BP Systolic 123 mmHg BP Diastolic 99 mmHg BMI (Body Mass Index) 19.3 kg/m2 Heart Rate 68 /min Respiratory Rate 18 /min Pain Level 0 out of 10 Results Description No Information Available Procedures Description No Information Available Medical Devices Description No Information Available Encounters Type Date Location Provider Dx Diagnosis Office Visit 04/16/2019 11:30a A & [facility] Timi eVga N18.6 End stage renal disease Q61.2 Polycystic kidney, adult type Z99.2 Dependence on renal dialysis Z79.01 half-way (current) use of anticoagulants Z79.82 half-way (current) use of aspirin Z86.73 Prsnl hx of TIA (TIA), and cereb infrc w/o resid deficits Z68.1 Body mass index (BMI) 19.9 or less, adult Assessments Date Code Description Provider 04/30/2019 Z68.20 Body mass index (BMI) 20.0-20.9, adult RAUL Gallardo 04/16/2019 N18.6 End stage renal disease Timi Vega 04/16/2019 Q61.2 Polycystic kidney, adult type VegaTimi 04/16/2019 Z99.2 Dependence on renal dialysis VegaTimi 04/16/2019 Z79.01 half-way (current) use of anticoagulants Timi Vega 04/16/2019 Z79.82 half-way (current) use of aspirin Timi Vega 04/16/2019 Z86.73 Personal history of transient ischemic attack Timi Vega (TIA), and cerebral infarction without residual deficits 04/16/2019 Z68.1 Body mass index (BMI) 19.9 or less, adult Timi Vega Plan of Treatment Future Appointment(s):05/28/2019 10:30 am - Timi Vega at & 2018 2:00 pm - Timi Vega at [facility] Functional Status Description No Information Available Mental Status Description No Information Available Referrals Refer to Dr Reason for Referral Status Appt Date Timi Vega M.D. Scheduled 03/12/[address] [place] [address] A [facility] [place] [address] [phone]
--- OUTSIDE RECORDS SUMMARY | 2019-05-06 12:44 | XMS REPORT | Continuity of Care Document ---
:1960 External Reference #:[id number] Author Name Latisha BarahonaRAUL Address [address] [facility] [place] [address] Care Team Providers Name Role Phone Jet Bianchi M.D. 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 Problems Description No Information Available Social History [...] Unknown sob (2.5mg/3ML) 0.083% Nebulizer Saline Nasal [place] q 2 hrs prn Unknown 0.65% Solution [...] Date Location Provider Dx Diagnosis Office Visit 04/30/2019 11:30a A & [facility] RAUL Gallardo N18.6 End stage renal disease Q61.2 Polycystic kidney, adult type Z99.2 Dependence on renal dialysis Z68.20 Body mass index (BMI) 20.0-20.9, adult Office Visit 04/16/2019 11:30a A & [facility] Timi Vega N18.6 End stage renal disease Q61.2 Polycystic kidney, adult type Z99.2 Dependence on renal dialysis Z79.01 director long term care (current) use of anticoagulants Z79.82 director long term care (current) use of aspirin Z86.73 Prsnl hx of TIA (TIA), and cereb infrc w/o resid deficits Z68.1 Body mass index (BMI) 19.9 or less, adult Assessments Date Code Description Provider 04/30/2019 N18.6 End stage renal disease Latisha Barahona, [facility] 04/30/2019 Q61.2 Polycystic kidney, adult type Latisah Barahona, [facility] 04/30/2019 Z99.2 Dependence on renal dialysis Latisha Barahona, [facility] 04/30/2019 Z68.20 Body mass index (BMI) 20.0-20.9, adult Latisha Barahona, [facility] 04/16/2019 N18.6 End stage renal disease Gary Timi 04/16/2019 Q61.2 Polycystic kidney, adult type Gary, Timi 04/16/2019 Z99.2 Dependence on renal dialysis Vega, Timi 04/16/2019 Z79.01 FDC (current) use of anticoagulants Vega, Timi 04/16/2019 Z79.82 FDC (current) use of aspirin Terri Vegamo 04/16/2019 Z86.73 Personal history of transient ischemic attack Timi Vega (TIA), and cerebral infarction without residual deficits 04/16/2019 Z68.1 Body mass index (BMI) 19.9 or less, adult Timi Vega Plan of Treatment Future Appointment(s):05/28/2019 10:30 am - Timi Vega at & 2018 2:00 pm - Timi Vega at [facility] Functional Status Description No Information Available Mental Status Description No Information Available Referrals Refer to Reason for Referral Status Appt Date Timi Vega M.D. Scheduled 03/12/2019 [address] [facility] [address] [place] [address] [phone]
--- OUTSIDE RECORDS SUMMARY | 2019-05-06 12:44 | XMS REPORT | Continuity of Care Document ---
:1960 External Reference #:[id number] Author Name Timi Vega (transmitted by agent of provider Annette Mancilla) Address [address] [place] [address] Care Team Providers Name Role Phone Jet Bianchi M.D. 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 [phone] Problems Description No Information Available Social History Type Date Description Comments Sex Unknown Tobacco Use Start: Unknown Patient has never smoked Smoking Status Reviewed: 09/02/18 Patient has never smoked Allergies, Adverse Reactions, Alerts Active Allergies Reaction Severity Comments Date Codeine 04/01/2018 Adhesives skin tear 04/01/2018 Lorazepam 05/08/2018 Medications Active Medications SIG Qnty Indications Ordering Provider Date Saline Nasal [place] q 2 hrs prn Unknown 0.65% Solution Melatonin 1 po q hs Unknown 3mg Capsules Atorvastatin Calcium po qd Unknown 20mg Tablets Kayexalate 15 gm po prn per Unknown Powder md order Imodium A-D 2 caps po q 8 Unknown 2mg Capsules hours prn. Carvedilol 50 mg po bid Unknown 25mg Tablets Dialyvite po qd Unknown Calcium Acetate (Phos po before meals Unknown Binder) 667mg Tablets Buspirone HCL po bid Unknown 5mg Tablets Amlodipine Besylate 1 by mouth every Unknown 5mg day Tablets Tekturna po qd Unknown 300mg Tablets Zofran 1 tab by mouth Unknown 4mg Tablets every 6 hours prn Tylenol 2 po prn Unknown 325mg Tablets Sertraline HCL po qd Unknown 50mg Tablets Omeprazole po qd Unknown 20mg Capsules DR Hydroxyzine HCL 1 by mouth every Unknown 10mg day to three Tablets times a day as needed anxiety Enbrel sq every 7 days Unknown 25mg/0.5ML Soln Prefill Syringe Clopidogrel Bisulfate Unknown 75mg Tablets Aspirin 81 Low Dose Unknown 81mg Chewtabs Immunizations Description No Information Available Vital Signs Date Vital Result Comment 04/16/2019 11:32am Height 67 inches 5'7" Weight 123.00 lb BP Systolic 123 mmHg BP Diastolic 99 mmHg BMI (Body Mass Index) 19.3 kg/m2 Heart Rate 68 /min Respiratory Rate 18 /min Pain Level 0 out of 10 05/08/2018 1:47pm BP Systolic 122 mmHg BP Diastolic 64 mmHg Heart Rate 80 /min Respiratory Rate 18 /min Results Description No Information Available Procedures Description No Information Available Medical Devices Description No Information Available Encounters Type Date Location Provider Dx Diagnosis Office Visit 04/16/2019 11:30a A & [facility] Timi Vega Z99.2 Dependence on renal dialysis Z68.1 Body mass index (BMI) 19.9 or less, adult Assessments Date Code Description Provider 04/16/2019 Z99.2 Dependence on renal dialysis Timi Vega 04/16/2019 Z68.1 Body mass index (BMI) 19.9 or less, adult Timi Vega Plan of Treatment No Information Available Functional Status Description No Information Available Mental Status Description No Information Available Referrals Refer to Reason for Referral Status Appt Timi Rey M.D. Scheduled 03/12/2019 [address] [facility] [address] [place] [id number] [phone]
--- OUTSIDE RECORDS SUMMARY | 2019-05-06 12:44 | XMS REPORT | Continuity of Care Document ---
:1960 External Reference #:[id number] Author Name Timi Vega Address [address] [facility], [place] [address] Care Team Providers Name Role Phone Jet Bianchi M.D. - Nephrology Care Team Information Dope Sprayer [phone] Problems Description No Information Available Social History Type Date Description Comments Sex Unknown Tobacco Use Start: Unknown Patient has never smoked Smoking Status Reviewed: 09/02/18 Patient has never smoked Allergies, Adverse Reactions, Alerts Active Allergies Reaction Severity Comments Date Codeine 04/01/2018 Adhesives skin tear 04/01/2018 Lorazepam 05/08/2018 Medications Active Medications SIG Qnty Indications Ordering Provider Date Saline Nasal [place] q 2 hrs prn Unknown 0.65% Solution [...] Tablets Omeprazole po qd Unknown 20mg Capsules Hydroxyzine HCL 1 by mouth every Unknown [...] Medical Devices Description No Information Available Encounters Description No Information Available Assessments Date Code Description Provider 04/16/2019 N18.6 End stage renal disease Timi Vega 04/16/2019 Q61.2 Polycystic kidney, adult type Timi Vega 04/16/2019 Z99.2 Dependence on renal dialysis Timi Vega 04/16/2019 Z79.01 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 Timi Vega 04/16/2019 Z79.82 intermodal dispatcher (current) use of aspirin Timi Vega 04/16/2019 Z86.73 Personal history of transient ischemic attack Timi Vega (TIA), and cerebral infarction without residual deficits 04/16/2019 Z68.1 Body mass index (BMI) 19.9 or less, adult Timi Vega Plan of Treatment Future Appointment(s):05/28/2019 10:30 am - Timi Vega at A & [id number] 11:30 am - RAUL Gallardo at A & 05/22/2019 2:00 pm - Timi Vega at [facility] Functional Status Description No Information Available Mental Status Description No Information Available Referrals Refer to Reason for Referral Status Appt Date Timi Vega M.D. Scheduled 03/12/2019 8 [facility] [place] [address] [phone]
--- NOTE | 2019-05-06 12:49 | ED ---
GI/ HPI - HPI Summary HPI Summary: The patient is a 58 y/o F arriving by ambulance to [facility] with a chief complaint of diarrhea and weakness for the last three days. She reports watery stool and difficulty ambulating secondary to the weakness. She has been unable to eat with a decreased appetite, but she denies any nausea or vomiting. She rates the symptoms 3/10 in severity. There are no aggravating or alleviating factors. She has not taken any medications prior to arrival for treatment, and she is not on antibiotics. She has not recently traveled anywhere, and she lives at [facility] but doesnt think anyone else has similar symptoms. She was sent here from her dialysis appointment because she was hypotensive at 92/45 mmHg, but she states she felt okay then. PMHx: anemia, cardiomegaly, CHF, CAD, HLD, HTN, bradycardia, MN, COPD, pleural effusion, diverticulosis, GERD, chronic renal failure, hemodialysis, polycystic kidney disease, CVA, seizures. Former smoker, no EtOH, no substance use. Medications reviewed. Allergies noted. - History of Current Complaint Chief Complaint: EDNauseaVomitDiarrh Stated Complaint: GENERAL ILLNESS PER EMS Hx Obtained From: Patient Onset/Duration: Started Days Ago - three, Still Present Timing: Lasting Days Severity: Moderate Current Severity: Moderate Pain Intensity: 3 Associated Signs and Symptoms: Positive: Weakness, Diarrhea. Negative: Nausea, Vomiting - Additional Pertinent History Primary Care Physician: CHANDU - Allergy/Home Medications Allergies/Adverse Reactions: Allergies Allergy/AdvReac Type Severity Reaction Status Date / Time Adhesive Tape Allergy Intermediate Hives Verified 07/22/18 13:28 codeine AdvReac Severe GI Upset Verified 07/22/18 13:28 Home Medications: Home Medications Albuterol 2.5MG/3ML (0.083%)* [Ventolin 2.5 MG/3 ML NEB.CRISSY*] 3 ml INH Q4H PRN 05/06/19 [History Confirmed 05/06/19] Calcium Acetate CAP* [Phoslo CAP*] 1,334 mg PO TID WITH MEALS 05/06/19 [History Confirmed 05/06/19] Loperamide CAP* [Imodium CAP*] 2 mg PO Q4H PRN MDD 8 tabs 05/06/19 [History Confirmed 05/06/19] Melatonin (NF) 1 tab PO BEDTIME PRN 05/06/19 [History Confirmed 05/06/19] Minerin Cream* [Eucerin Cream*] 1 applic TOPICAL DAILY 05/06/19 [History Confirmed 05/06/19] Multivitamin/Iron/Folic Acid [Daily Vitamin Formula-Iron Tab] 1 each PO DAILY [History Confirmed 05/06/19] Saline NASAL SPRAY 0.65%* [Sodium Chloride 0.65% Nasal [place]*] 1 spray BOTH NARES Q2H PRN 05/06/19 [History Confirmed 05/06/19] busPIRone TAB* [Buspar TAB*] 5 mg PO BID 05/06/19 [History Confirmed 05/06/19] PMH/Surg Hx/FS Hx/Imm Hx Endocrine/Hematology History: Reports: Hx Anemia - gets epogen shot Denies: Hx Blood Disorders, Hx Blood Transfusions, Hx Bone Marrow Disease, Hx Diabetes, Hx Systemic Lupus Erythematosus, Hx Thyroid Disease, Hx Unexplained Bleeding Cardiovascular History: Reports: Hx Aneurysm, Hx Cardiomegaly, Hx Congestive Heart Failure, Hx Coronary Artery Disease, Hx Hypercholesterolemia, Hx Hypertension, Hx Myocardial Infarction, Other Cardiovascular Problems/Disorders - CAD, MN, MURMUR, bradycardia Denies: Hx Pacemaker/ICD, Hx Peripheral Vascular Disease Respiratory History: Reports: Hx Chronic Obstructive Pulmonary Disease (COPD), Hx Pleural Effusion Denies: Hx Pneumonia, Hx Pulmonary Edema, Hx Pulmonary Embolism, Hx Seasonal Allergies, Hx Sleep Apnea GI History: Reports: Hx Diverticulosis, Hx Gastroesophageal Reflux Disease, Hx Ulcer History: Reports: Hx Chronic Renal Failure - dialysis patient, Hx Dialysis - HEMODIALYSIS [facility]IA [facility], Hx Kidney Infection, Hx Renal Disease - ESRD, polycystic kidney disease, Other Problems/Disorders - polycystic kidney, does notvoid Denies: Hx Kidney Stones Musculoskeletal History: Reports: Hx Arthritis, Hx Rheumatoid Arthritis, Hx Back Problems, Hx Orthopedic Injury - left hip fx, Other Musculoskeletal History - LEFT HIP FX Denies: Hx Osteoporosis Sensory History: Denies: Hx Cataracts, Hx Contacts or Glasses, Hx Eye Injury, Hx Eye Prosthesis, Hx Glaucoma, Hx Legally Blind, Hx Macular Degeneration, Hx Vision Problem, Hx Deafness, Hx Hearing Aid, Hx Hearing Problem Opthamlomology History: Denies: Hx Cataracts, Hx Contacts or Glasses, Hx Eye Injury, Hx Eye Prosthesis, Hx Glaucoma, Hx Legally Blind, Hx Macular Degeneration, Hx Vision Problem Neurological History: Reports: Hx CVA, Hx Seizures - last admission in ED, Other Neuro Impairments/Disorders - brain aneurism x5 per pt Denies: Hx Dementia, Hx Developmental Delay, Hx Headaches, Hx Migraine, Hx Nerve Disease Psychiatric History: Reports: Hx Anxiety, Hx Depression Denies: Hx Panic Disorder, Hx Post Traumatic Stress Disorder, Other Psychiatric Issues/Disorders - Cancer History Hx Chemotherapy: No - Surgical History Surgical History: Yes Surgery Procedure, Year, and Place: dialysis port x2 Hx Anesthesia Reactions: No - Immunization History Date of Tetanus Vaccine: Unknown Infectious Disease History: No Infectious Disease History: Denies: Hx of Known/Suspected MRSA, Hx Tuberculosis, Traveled Outside the [place] in Last 30 Days - Family History Known Family History: Negative: Cardiac Disease, Hypertension, Diabetes - Social History Alcohol Use: None Hx Substance Use: No Substance Use Type: Reports: None Hx Tobacco Use: Yes Smoking Status (MU): Former Smoker Type: Cigarettes Amount Used/How Often: not much, only while in college Have You Smoked in the Last Year: No Review of Systems Positive: Diarrhea - liquid. Negative: Vomiting, Nausea Positive: Weakness All Other Systems Reviewed And Are Negative: Yes Physical Exam - Summary Physical Exam Summary: VITAL SIGNS: Reviewed. GENERAL: Patient is a well-developed and very fragile elderly female who is lying comfortable in the stretcher. Patient is not in any acute respiratory distress. HEAD AND FACE: No signs of trauma. No ecchymosis, hematomas or skull depressions. No sinus tenderness. EYES: PERRLA, EOMI x 2, No injected conjunctiva, no nystagmus. EARS: Hearing grossly intact. Ear canals and tympanic membranes are within normal limits. MOUTH: Dry oral mucosa. Oropharynx otherwise within normal limits. NECK: Supple, trachea is midline, no adenopathy, no JVD, no carotid bruit, no c- spine tenderness, neck with full ROM. CHEST: Symmetric, no tenderness at palpation. LUNGS: Clear to auscultation bilaterally. No wheezing or crackles. CVS: Regular rate and rhythm, S1 and S2 present, no murmurs or gallops appreciated. ABDOMEN: Soft, non-tender. No signs of distention. No rebound, no guarding, and no masses palpated. Increased bowel sounds. EXTREMITIES: FROM in all major joints, no edema, no cyanosis or clubbing. NEURO: Alert and oriented x 3. No acute neurological deficits. Speech is normal and follows commands. SKIN: Dry and warm. Port on right chest. Triage Information Reviewed: Yes Vital Signs On Initial Exam: Initial Vitals Temp Pulse Resp BP Pulse Ox 97.6 F 76 14 107/60 97 05/06/19 12:22 05/06/19 12:22 05/06/19 12:22 05/06/19 12:22 05/06/19 12:22 Vital Signs Reviewed: Yes Procedures - Sedation Patient Received Moderate/Deep Sedation with Procedure: No Diagnostics - Vital Signs Vital Signs Temp Pulse Resp BP Pulse Ox 05/06/19 12:23 68 23 97 05/06/19 12:22 97.6 F 76 14 107/60 97 - Laboratory Result Diagrams: 05/06/19 13:03 05/06/19 13:03 Lab Statement: Any lab studies that have been ordered have been reviewed, and results considered in the medical decision making process. - EKG 1231 Cardiac Rate: NL - 64 BPM EKG Rhythm: Sinus Rhythm Summary of EKG Findings: EKG at 1231 reveals normal sinus rhythm at 64 BPM. T- wave inversions in V5 and V6. No ST elevations. ED physician has reviewed and interpreted this EKG. GIGU Course/Dx - Course Assessment/Plan: The patient is a 58-year-old female who presents to the emergency department with a chief complaint of having diarrhea for the last 3 days. She denies any nausea or vomiting. Patient was at dialysis and they noticed that the patient was hypotensive. Therefore, the patient was sent to the emergency department. Initially, the patient was placed on a sql consultant , IV access was obtained, and the patient was given IV fluids since the patient is hypotensive. Blood work without any significant abnormality except for chloride of 97, and anion gap of 12, BUN of 49, creatinine of 6.61, alkaline phosphatase of 108, CRP of 102.7, BNP 117, and total protein of 6. I discussed the case with Dr. Bustillos from nephrology, and she requested for the patient to get Dialysis now. Patient has not had dialysis for a few days. C. difficile is negative. Fecal lactoferrin is positive. Stool cultures pending. At this point, I discussed my physical exam and findings with and Dr. Alvarez from the hospital services, and she requests the patient is brought back to the ER. She reports that the hemodialysis will take about 4 hours and she can not admit the patient w/o examining the patient. Therefore, she requested to bring the patient to the ED after dialysis. She reports that likely the admission will be done for the next hospitalist. I discussed the case with Dr. Durham and she will evaluate the patient. Patient was evaluated by Annette Mooney NP, working with Dr. Durham and recommend for the patient to be discharged back to [facility]. - Diagnoses Provider Diagnoses: Infectious diarrhea, Hypotension, ESRD (end stage renal disease) - Physician Notifications Discussed Care Of Patient With: Osiris Bustillos - nephrology Time Discussed With Above Provider: 14:00 Instructed by Provider To: Other - I spoke with Dr. Bustillos, and she states that she wants the patient to get dialysis today on the fourth floor, and she recommends admission. I discussed the patients case with Dr. Durham, and she will evaluate the patient. Annette Garcia NP, recommends discharge for the patient. Discharge ED - Sign-Out/Discharge Documenting (check all that apply): Patient Departure - Patient will be discharged home. - Discharge Plan Condition: Stable Disposition: HOME Patient Education Materials: Chronic Diarrhea (ED), Hypotension (ED), End Stage Kidney Disease (ED) Referrals: Brigitte Patel DO [Primary Care Provider] - 3 Days Additional Instructions: Follow up with your primary care provider in 2-3 days. Return to the emergency department for any new or worsening symptoms. - Billing Disposition and Condition Condition: STABLE Disposition: Home - Attestation Statements Document Initiated by Cecile: Yes Documenting Scribe: Oneyda Tai Provider For Whom Cecile is Documenting (Include Credential): Dr. Jt Ricci MD Scribe Attestation: Oneyda Morales scribed for Dr. Jt Ricci MD on 05/07/19 at 1847. Scribe Documentation Reviewed: Yes Provider Attestation: The documentation as recorded by the Oneyda woods accurately reflects the service I personally performed and the decisions made by me, Dr. Jt Ricci MD Status of Scribe Document: Viewed
[2019-05-06 13:37] LABS: ABS Basophils 0.1 10^3/ul (0-0.2); ABS Eosinophils 0.2 10^3/ul (0-0.6); ABS Monocytes 0.8 10^3/ul (0-0.8); ABS Neutrophils 5.8 10^3/ul (1.5-7.7); Eosinophil % 2.4 %; Hematocrit 37 % (35-47); Hemoglobin 12.3 g/dL (12.0-16.0); Lymphocyte % 12.8 %; Mean Corpuscular HGB Conc 33 g/dL (31-36); Mean Corpuscular Hemoglobin 32 pg (27-31); Mean Corpuscular Volume 96 fL (80-97); Mean Platelet Volume 8.1 fL (7.4-10.4); Nucleated Red Blood Cells % 0.1; Platelet Count 155 10^3/uL (150-450); Red Cell Distribution Width 15 % (10-15); White Blood Count 7.8 10^3/uL (3.5-10.8)
[2019-05-06 14:18] LABS: Albumin 3.5 g/dL (3.2-5.2); Calcium 9.5 mg/dL (8.6-10.3); Potassium 3.5 mmol/L (3.5-5.0); Total Bilirubin 0.7 mg/dL (0.2-1.0)
[2019-05-06 14:24] LABS: Albumin/Globulin Ratio 1.4 (1-3); BUN/Creatinine Ratio 7.4 (8-20); C Reactive Protein 102.07 mg/L (<8.01); EGFR African American 7.8 (>60); EGFR Non-African American 6.4 (>60); Globulin 2.5 g/dL (2-4)
[2019-05-06] MEDS ORDERED: Heparin DIALYSIS ONLY(*) 1,000 UNITS/ML VIAL DIALYSIS ONE (15:00)
[2019-05-06] MEDS ORDERED: Acetaminophen TAB* 325 MG PO ONE (18:00)
[2019-05-06] MEDS ORDERED: hydrOXYzine HCL TAB* 25 MG PO ONE (18:00)
--- NOTE | 2019-05-06 18:00 | PN ---
DIALYSIS NOTE: DATE OF DIALYSIS: 05/06/19 SUBJECTIVE: The patient is seen and examined during dialysis. Vitals and labs have been reviewed. PHYSICAL EXAM: HEENT: NC/AT. Heart: S1, S2 present. Regular at the time of exam. Lungs: Decreased breath sounds bilaterally. Abdomen: Soft. Extremities: Noted to have no edema. Neuro: Alert. ASSESSMENT AND PLAN: 1. End-stage renal disease, on hemodialysis. The patient's last hemodialysis was on Saturday. The patient is on a different schedule with the holiday this week. The patient went to the dialysis unit today in the morning but was noted to be very tired with low blood pressure and significant diarrhea and was sent to the ER for evaluation. 2. The patient's blood pressure was in the 90s in the dialysis unit and the patient received a 250 cc bolus but only had 15 minutes of dialysis. 3. At this time, the patient is being acutely dialyzed in the hospital as we do not have dialysis tomorrow and the patient may be unable to go 5 days without dialysis as our next session would be Saturday. 4. We will perform a short session today and as the patient's blood pressure is still soft, we will avoid taking fluid off but as the blood pressures improve to the 120s, we will try to see if we can possibly remove the 250 cc that we gave her or just turn her euvolemic. 5. The patient chronically wears oxygen. 6. We will dialyze her on 3 K bath as the patient's potassium noted to be on the lower side. 7. We will follow with the medical team and be available for any questions. [id number]/CPS #: [id number] EL
[2019-05-06] MEDS ORDERED: Diphenoxylat/Atrop 2.5-0.025M* 1 TAB PO ONE (18:47)
--- NOTE | 2019-05-06 18:57 | PN ---
Subjective Date of Service: 05/06/19 Interval History: This is a 58 year old female with ESRD on HD that was brought to the ED when she became hypotensive during dialysis today. She was brought through the ED for evaluation then sent to inpatient dialysis to complete her treatment. Her BP was soft, but this is her usual state on dialysis days. The only other concern was that the patient was having diarrhea for the las few days. She describes it as soft stools after eating. No fever, no white count, no s/s of infectious process. Cdiff testing is negative. Found to have VRE in stool culture. Hospitalists are asked to consult for potential admission. Objective Vital Signs - 8 hr 05/06/19 05/06/19 05/06/19 12:22 12:23 12:52 Temperature 97.6 F Pulse Rate 76 68 64 Respiratory 14 23 16 Rate Blood Pressure 107/60 97/56 (mmHg) O2 Sat by Pulse 97 97 100 Oximetry 05/06/19 05/06/19 05/06/19 13:00 13:22 13:52 Temperature Pulse Rate 63 64 66 Respiratory 14 13 14 Rate Blood Pressure 113/62 106/63 (mmHg) O2 Sat by Pulse 99 99 100 Oximetry 05/06/19 05/06/19 05/06/19 14:00 17:32 17:39 Temperature Pulse Rate 68 78 77 Respiratory 13 29 17 Rate Blood Pressure 117/101 (mmHg) O2 Sat by Pulse 100 96 94 Oximetry 05/06/19 05/06/19 18:00 18:10 Temperature Pulse Rate Respiratory 20 19 Rate Blood Pressure 146/73 (mmHg) O2 Sat by Pulse Oximetry Oxygen Devices in Use Now: Nasal Cannula Appearance: alert, NAD Eyes: PERRLA Ears/Nose/Mouth/Throat: - - dry oral mucosa Neck: NL Appearance and Movements; NL JVP Respiratory: Symmetrical Chest Expansion and Respiratory Effort, Clear to Auscultation Cardiovascular: RRR, - - systolic murmur grade III Abdominal: NL Sounds; No Tenderness; No Distention Extremities: No Edema, No Clubbing, Cyanosis Skin: No Rash or Ulcers Neurological: Alert and Oriented x 3 Nutrition: Taking PO's Result Diagrams: 05/06/19 13:03 05/06/19 13:03 Microbiology and Other Data: Microbiology 05/06/19 12:20 Stool Gross Appearance - Final Stool C. difficile DNA Amplification - Final 027 Presumptive NEGATIVE Toxigenic C.diff NEGATIVE 05/06/19 12:20 Stool Gross Appearance - Final Stool Stool Lactoferrin - Final Assess/Plan/Problems-Billing Assessment: This is a 58 year old female well known to our service with history of polycystic renal disease on HD that presents to ED with hypotension during dialysis and soft stools. - Patient Problems (1) VRE (vancomycin resistant enterococcus) culture positive Code(s): Z22.39 - CARRIER OF OTHER SPECIFIED BACTERIAL DISEASES SNOMED Code(s) : 370488286 Comment: - VRE in stool only likely represents colonization in the setting of dialysis/ immune compromised state and living in retirement facility - No fever, no white count, no abdominal pain, cdiff negative, no s/s of sepsis or toxicity - Recommend probiotic BID and PRN lomotil and supportive care (2) ESRD (end stage renal disease) Code(s): N18.6 - END STAGE RENAL DISEASE SNOMED Code(s): 95093382 Comment: - Hypotension during HD today which patient states happens on her dialysis days - BP currently 118/64, HR 82 - Asymptomatic/back to baseline - Discussed with Dr. Bustillos, nephrology, nc for discharge now that dialysis is complete and patient is hemodynamically stable (3) COPD (chronic obstructive pulmonary disease) Code(s): J44.9 - CHRONIC OBSTRUCTIVE PULMONARY DISEASE, UNSPECIFIED SNOMED Code(s): 57282875 Comment: - Stable on PRN O2 and inhalers (4) Hx of coronary artery disease Code(s): Z86.79 - PERSONAL HISTORY OF OTHER DISEASES OF THE CIRCULATORY SYSTEM SNOMED Code(s): 589809168 Comment: - Stable (5) Full code status Code(s): Z78.9 - OTHER SPECIFIED HEALTH STATUS SNOMED Code(s): 055397151 Status and Disposition: Recommend discharge back to [facility]. Patient will be seen by Dr. Patel, [facility] Attending Physician on Saturday. Discussed with Dr. Ricci ED physician that will coordinate discharge.
[2019-05-06 19:23] VITALS: BP 112/68
== END 2019-05-06 19:05 | disposition home or self-care (01) ==
LOC: ED 12:08
DX: A09 Infectious gastroenteritis and colitis, unspecified (principal); I95.9 Hypotension, unspecified; 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 disease with heart failure and with stage 5 chronic kidney disease, or end stage renal disease; N18.6 End stage renal disease; I50.9 Heart failure, unspecified; Z99.2 Dependence on renal dialysis; D63.1 Anemia in chronic kidney disease; I25.10 Atherosclerotic heart disease of native coronary artery without angina pectoris; E78.00 Pure hypercholesterolemia, unspecified; I25.2 Old myocardial infarction; J44.9 Chronic obstructive pulmonary disease, unspecified; K21.9 Gastro-esophageal reflux disease without esophagitis; F41.9 Anxiety disorder, unspecified; F32.9 Major depressive disorder, single episode, unspecified; Z86.73 Personal history of transient ischemic attack (TIA), and cerebral infarction without residual deficits; Z87.891 Personal history of nicotine dependence; Z79.899 Other long term (current) drug therapy; Z88.5 Allergy status to narcotic agent
CPT/HCPCS: 36415; 80053; 83605; 83630; 83690; 83880; 85025; 86140; 87040; 87045; 87046; 87493; 87899; 93005; 96360; 96361; 99283; A9270-GY; J1644

== ENCOUNTER 2019-05-08 11:59 | Inpatient (IN) | payer MEDICARE, MEDICAID ==
--- NOTE | 2019-05-08 12:28 | ED ---
GI/ HPI - HPI Summary HPI Summary: This patient is a 58 year old F with a history of CKD on dialysis BIBA via EMS to ED with a chief complaint of bloody stool and diarrhea since one week ago. 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 She had dialysis on 05/06/19 and went to the ED for abdominal cramps, had stool studies w neg cdiff, VRE in culture which was presumed to be chronic. Since then, she has continued to have the bloody diarrhea. She has also vomited. Patient reports subjective low-grade fever, fatigue, weakness, and feeling dehydrated. Patient is supposed to have dialysis today. She has not been on antibiotics recently. She has been on dialysis for the past year for polycystic kidney disease, previously PD now has vas cath. The patient rates the pain 8/10 in severity. - History of Current Complaint Chief Complaint: EDGIBleed Time Seen by Provider: 05/08/19 12:05 Stated Complaint: BLOODY STOOLS PER EMS Hx Obtained From: Patient Onset/Duration: Started Weeks Ago - 1 week, Still Present Timing: Constant, Lasting Weeks - 1 week Current Severity: Severe Pain Intensity: 8 Associated Signs and Symptoms: Positive: Weakness, Vomiting, Blood-Streaked Stool, Diarrhea, Fever - Subjective low-grade Aggravating Factor(s): Nothing Alleviating Factor(s): Nothing - Additional Pertinent History Primary Care Physician: CHANDU - Allergy/Home Medications Allergies/Adverse Reactions: Allergies Allergy/AdvReac Type Severity Reaction Status Date / Time Adhesive Tape Allergy Intermediate Hives Verified 07/22/18 13:28 codeine AdvReac Severe GI Upset Verified 07/22/18 13:28 Home Medications: Home Medications Folic Acid/B Cplx/C/Selen/Zinc [Dialyvite 3,000 Tablet] 1 each PO DAILY [History Confirmed 05/08/19] PMH/Surg Hx/FS Hx/Imm Hx Endocrine/Hematology History: Reports: Hx Anemia - gets epogen shot Denies: Hx Blood Disorders, Hx Blood Transfusions, Hx Bone Marrow Disease, Hx Diabetes, Hx Systemic Lupus Erythematosus, Hx Thyroid Disease, Hx Unexplained Bleeding Cardiovascular History: Reports: Hx Aneurysm, Hx Cardiomegaly, Hx Congestive Heart Failure, Hx Coronary Artery Disease, Hx Hypercholesterolemia, Hx Hypertension, Hx Myocardial Infarction, Other Cardiovascular Problems/Disorders - CAD, [place], MURMUR, bradycardia Denies: Hx Pacemaker/ICD, Hx Peripheral Vascular Disease Respiratory History: Reports: Hx Chronic Obstructive Pulmonary Disease (COPD), Hx Pleural Effusion Denies: Hx Pneumonia, Hx Pulmonary Edema, Hx Pulmonary Embolism, Hx Seasonal Allergies, Hx Sleep Apnea GI History: Reports: Hx Diverticulosis, Hx Gastroesophageal Reflux Disease, Hx Ulcer History: Reports: Hx Chronic Renal Failure - dialysis patient, Hx Dialysis - HEMODIALYSIS [facility]IA [facility], Hx Kidney Infection, Hx Renal Disease - ESRD, polycystic kidney disease, Other Problems/Disorders - polycystic kidney, does notvoid Denies: Hx Kidney Stones Musculoskeletal History: Reports: Hx Arthritis, Hx Rheumatoid Arthritis, Hx Back Problems, Hx Orthopedic Injury - left hip fx, Other Musculoskeletal History - LEFT HIP FX Denies: Hx Osteoporosis Sensory History: Denies: Hx Cataracts, Hx Contacts or Glasses, Hx Eye Injury, Hx Eye Prosthesis, Hx Glaucoma, Hx Legally Blind, Hx Macular Degeneration, Hx Vision Problem, Hx Deafness, Hx Hearing Aid, Hx Hearing Problem Opthamlomology History: Denies: Hx Cataracts, Hx Contacts or Glasses, Hx Eye Injury, Hx Eye Prosthesis, Hx Glaucoma, Hx Legally Blind, Hx Macular Degeneration, Hx Vision Problem Neurological History: Reports: Hx CVA, Hx Seizures - last admission in ED, Other Neuro Impairments/Disorders - brain aneurism x5 per pt Denies: Hx Dementia, Hx Developmental Delay, Hx Headaches, Hx Migraine, Hx Nerve Disease Psychiatric History: Reports: Hx Anxiety, Hx Depression Denies: Hx Panic Disorder, Hx Post Traumatic Stress Disorder, Other Psychiatric Issues/Disorders - Cancer History Hx Chemotherapy: No - Surgical History Surgery Procedure, Year, and Place: dialysis port x2 Hx Anesthesia Reactions: No - Immunization History Date of Tetanus Vaccine: Unknown Infectious Disease History: Yes Infectious Disease History: Denies: Hx of Known/Suspected MRSA, Hx Tuberculosis, Traveled Outside the [place] in Last 30 Days - Family History Known Family History: Negative: Cardiac Disease, Hypertension, Diabetes - Social History Alcohol Use: None Hx Substance Use: No Substance Use Type: Reports: None Hx Tobacco Use: Yes Smoking Status (MU): Former Smoker Type: Cigarettes Amount Used/How Often: not much, only while in college Have You Smoked in the Last Year: No Review of Systems Positive: Fever - Subjective low-grade, Fatigue Positive: Abdominal Pain, Vomiting, Diarrhea - Bloody Positive: Weakness All Other Systems Reviewed And Are Negative: Yes Physical Exam - Summary Physical Exam Summary: Constitutional: Ill-appearing, appears older than stated age. (-) Distressed Skin: Warm, Dry HENT: Dry mucus membranes Eyes: Conjunctiva normal Neck: Musculoskeletal ROM normal neck. (-) JVD, (-) Stridor, (-) Nuchal rigidity Cardio: Rhythm regular, rate normal, Heart sounds normal; Intact distal pulses; Radial pulses are 2+ and symmetric. (-) Murmur Pulmonary/Chest wall: Effort normal. (-) Respiratory distress, (-) Wheezes, (-) Rales. Right vascular catheter. 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 Light stool, no blood. Musculoskeletal: Trace edema of bilateral lower extremities Lymph: (-) Cervical adenopathy Neuro: Alert, Oriented x3 Psych: Mood and affect Normal Triage Information Reviewed: Yes Vital Signs On Initial Exam: Initial Vitals Temp Pulse Resp BP Pulse Ox 99.8 F 80 13 102/57 95 05/08/19 12:08 05/08/19 12:08 05/08/19 12:08 05/08/19 12:08 05/08/19 12:08 Vital Signs Reviewed: Yes Procedures - Sedation Patient Received Moderate/Deep Sedation with Procedure: No Diagnostics - Vital Signs Vital Signs Temp Pulse Resp BP Pulse Ox 05/08/19 12:08 99.8 F 80 13 102/57 95 - Laboratory Result Diagrams: 05/08/19 12:35 05/08/19 12:35 Lab Statement: Any lab studies that have been ordered have been reviewed, and results considered in the medical decision making process. - Radiology CXR Radiology Interpretation Completed By: Radiologist Summary of Radiographic Findings: CARDIOMEGALY WITH INTERSTITIAL EDEMA. Dr. Lowe has reviewed this radiology report. Re-Evaluation - Re-Evaluation First Eval Re-Evaluation Time: 13:50 Comment: patient had bloody BM GIGU Course/Dx - Course Course Of Treatment: 58 y/o F w hx ESRD (MWF), PCKD, recent diarrheal illness p/ w n/v/d and concern for GI bleed. - PE w ill appearing female, abd mildly tender, rectal w/o gross blood. - CBC w stable Hb, LA normal. Covered broadly for infectious cause given fever w vanc/zosyn. VRE in stool suspected to be chronic. - CXR neg for PNA. - admit to medicine - Diagnoses Provider Diagnoses: Diarrhea, Dehydration, GIB (gastrointestinal bleeding) - Physician Notifications Discussed Care Of Patient With: Briana Tirado Time Discussed With Above Provider: 13:20 Instructed by Provider To: Other - Discussed patient case with Dr. Tirado, polls or surveys interviewer, who agreed that the patient likely will not need dialysis at this time given dehydration (we cannot do it over the weekend). At 1330 discussed patient case with Dr. Hilton, hospitalist, who accepted the patient for admission to [facility]. Discharge ED - Sign-Out/Discharge Documenting (check all that apply): Patient Departure - Admit - Discharge Plan Condition: Fair Disposition: ADMITTED TO [facility] Referrals: Brigitte Patel, [Primary Care Provider] - - Billing Disposition and Condition Condition: FAIR Disposition: Admitted to [facility] - Attestation Statements Document Initiated by Khariibe: Yes Documenting Scribe: Melecio Villeda Provider For Whom Cecile is Documenting (Include Credential): Jessa Lowe MD Scribe Attestation: I, Melecio Villeda, scribed for Jessa Lowe MD on 05/08/19 at 1356. Scribe Documentation Reviewed: Yes Provider Attestation: The documentation as recorded by the Melecio woods accurately reflects the service I personally performed and the decisions made by me, Jessa Lowe MD Status of Scribe Document: Viewed
[2019-05-08 12:45] LABS: ABS Basophils 0.1 10^3/ul (0-0.2); ABS Eosinophils 0.1 10^3/ul (0-0.6); ABS Lymphocytes 0.7 10^3/ul (1.0-4.8); ABS Neutrophils 5.8 10^3/ul (1.5-7.7); Eosinophil % 0.7 %; Hematocrit 34 % (35-47); Hemoglobin 11.5 g/dL (12.0-16.0); Lymphocyte % 9.6 %; Mean Corpuscular HGB Conc 34 g/dL (31-36); Mean Corpuscular Hemoglobin 32 pg (27-31); Mean Corpuscular Volume 95 fL (80-97); Mean Platelet Volume 7.9 fL (7.4-10.4); Platelet Count 178 10^3/uL (150-450); Red Cell Distribution Width 14 % (10-15); White Blood Count 7.6 10^3/uL (3.5-10.8)
[2019-05-08] MEDS ORDERED: Piperacillin/Tazobac ADVAN(*) 3.375 GM in NS 0.9% 100 ML* 100 ML IVPB ONE (12:49)
[2019-05-08] MEDS ORDERED: fentaNYL* 50 MCG/ML 2 ML VIAL (100 MCG VIAL) IV SLOW PU ONE (12:58)
[2019-05-08] MEDS ORDERED: Vancomycin(*) 1,000 MG VIAL IVPB SCH (13:00)
[2019-05-08 13:01] LABS: Albumin 3.2 g/dL (3.2-5.2); Albumin/Globulin Ratio 1.5 (1-3); BUN/Creatinine Ratio 6.4 (8-20); Calcium 8.9 mg/dL (8.6-10.3); EGFR African American 8.9 (>60); EGFR Non-African American 7.3 (>60); Globulin 2.2 g/dL (2-4); Potassium 3.9 mmol/L (3.5-5.0); Total Bilirubin 0.6 mg/dL (0.2-1.0); Total Protein 5.4 g/dL (6.4-8.9)
[2019-05-08] MEDS ORDERED: NS 0.9% 1000 ML** 500 ML IV ONE ×2 (13:15→14:06)
[2019-05-08] MEDS ORDERED: Saline NASAL SPRAY 0.65%* BTL BOTH NARES PRN (14:07)
[2019-05-08] MEDS ORDERED: Ondansetron ODT TAB* 4 MG PO PRN (14:07)
[2019-05-08 14:10] LABS: C Reactive Protein 127.75 mg/L (<8.01)
[2019-05-08] MEDS ORDERED: NS 0.9% 1000 ML** 1,000 ML IV SCH (14:15)
[2019-05-08] MEDS ORDERED: Morphine INJ* 2 MG/ML 1 ML SYRINGE (TWO MG - NEW SYRINGE VERSION) IV PRN (14:16)
[2019-05-08] MEDS ORDERED: Zosyn per Pharmacy* NOTE FOLLOW UP SCH (15:00)
--- NOTE | 2019-05-08 15:36 | HP ---
CC: Providers at [facility] MEDICINE HISTORY AND PHYSICAL: DATE OF ADMISSION: 05/08/19 ATTENDING PHYSICIAN: Dr. Emilie Hammond * (dictation provided by Cande Alcala NP ). CHIEF COMPLAINT: Diarrhea and weakness. HISTORY OF PRESENT ILLNESS: Ms. Charles is a 58-year-old female with past medical history of end-stage renal disease, on hemodialysis, preserved ejection fraction, CHF, CVA and depression, who presents today to the hospital with concern for diarrhea and weakness. Ms. Charles states that her issues with diarrhea began about a week ago. She has been given Imodium at [facility], but this has not been effective in reducing the amount of diarrhea. She went for dialysis per routine on 05/06/19 and was evaluated in the emergency room thereafter due to her diarrhea and mild hypotension. At that time, workup was negative and she was discharged back to [facility]. In the intervening 2 days, the patient has had persistent diarrhea and has now been noted to have blood in the stool per the report at [facility]. The patient also describes diffuse abdominal pain. She states that she believes she has had a mild fever. She denies shortness of breath, chest pain, palpitations. She states she has had poor oral intake as her appetite has been very minimal. In the emergency room, Ms. Charles had labs, which showed that her hemoglobin was stable at 11.5. Her BUN and creatinine were elevated consistent with her history of end-stage renal disease. Her CRP is pending. Her vitals were stable but she does have a mildly increased temperature to 99.8. She is not tachycardic and she is on her home 2 L nasal cannula with blood pressure of 116/ 59. After my assessment, the patient was up to the bathroom for bowel movement and was noted to have significant quantity of overt blood in the stool. PAST MEDICAL HISTORY: 1. End-stage renal disease, on hemodialysis secondary to polycystic kidney disease. 2. History of inflammatory arthropathy or rheumatoid arthritis. 3. Hypertension. 4. History of diastolic congestive heart failure. 5. CVA. 6. Depression. MEDICATIONS: Outpatient are: 1. Aspirin 81 mg p.o. daily. 2. Amlodipine 5 mg p.o. daily. 3. Eucerin cream at bedtime. 4. Ondansetron 4 mg p.o. q.4 hours p.r.n. nausea. 5. Tylenol p.r.n. 6. Saline nasal spray both nares q.2 hours p.r.n. 7. Sodium polystyrene 15 g as needed. 8. Imodium 2 mg as needed. 9. Hydroxyzine 10 mg p.o. p.r.n. 10. Albuterol p.r.n. 11. PhosLo cap 1334 mg p.o. t.i.d. with meals. 12. BuSpar 5 mg p.o. b.i.d. 13. Carvedilol 50 mg p.o. b.i.d. 14. Sertraline 50 mg p.o. daily. 15. Aliskiren 300 mg p.o. daily. 16. Omeprazole 20 mg p.o. daily. 17. Clopidogrel 75 mg p.o. daily. 18. Melatonin 1 tab p.o. at bedtime p.r.n. 19. Atorvastatin 20 mg p.o. daily. 20. Folic acid-B complex, X-[id number] 1 each p.o. daily. ALLERGIES: To ADHESIVE TAPE and CODEINE. FAMILY HISTORY: Father related to polycystic kidney disease and coronary artery disease. SOCIAL HISTORY: The patient resides at [facility]. She is a nonsmoker. She does not drink alcohol. Her surrogate decision maker is her son, Rojelio. REVIEW OF SYSTEMS: A 14-point review of systems is completed with Ms. Charles and all those not mentioned above are negative. PHYSICAL EXAMINATION GENERAL: Ms. Charles is lying in the bed. She is in no acute distress. VITAL SIGNS: Temperature 99.8, pulse rate 77, respiratory rate 13, O2 saturation 95% on 2 L nasal cannula, blood pressure 116/59. LUNGS: Clear to auscultation bilaterally with no accessory muscle use and good aeration. HEART: S1, S2 with a systolic murmur at the sternal border. ABDOMEN: Soft. It is nontender throughout. There is no rebound or guarding. EXTREMITIES: No cyanosis or edema. NEUROLOGIC: She is somewhat drowsy after receiving fentanyl in the ED for abdominal pain, but awakens easily to voice and communicates appropriately. She moves all extremities equally. There is no facial asymmetry or focal weakness. Extraocular movements are intact. SKIN: Intact. DIAGNOSTIC STUDIES/LAB DATA: Sodium 135, potassium 3.9, chloride 100, serum bicarbonate 25, BUN 38, creatinine 5.90. Glucose 96, lactic acid 0.5, CRP 127.75. I will note that the last CRP was 102.07 on 05/06/19. WBC 7.6, hemoglobin 11.5, hematocrit 34, platelet count 178. The patient did have a chest x-ray that shows cardiomegaly with interstitial edema. ASSESSMENT AND PLAN: Ms. Charles is a 58-year-old female with past medical history of end-stage renal disease, on hemodialysis as well as an inflammatory arthropathy, hypertension, diastolic congestive heart failure, cerebrovascular accident, and depression, who presents today to the hospital with concern for ongoing diarrhea, now associated with gastrointestinal bleeding. Our plans are for inpatient admission as I expect her length of stay would be greater than 2 days for the followin. Diarrhea with lower gastrointestinal bleeding and abdominal pain: The patient did have a C. diff on 05/06/19 that was negative. Plan to repeat now. She does have a history of VRE in the stool, but this has been felt to be a colonizer. We will recheck C. diff and stool culture. Plan to evaluate with CT abdomen and pelvis with oral contrast. The patient will have hemoglobin q.6 hours for gastrointestinal bleeding in the setting of end-stage renal disease, on hemodialysis. We will administer gentle IV fluids only at 75 mL/hr x1 bag and monitor fluid status closely. We will monitor her weight daily. Monitor I' s and O's. Plan to treat for suspected colitis with Zosyn, which has been started in the ED. 2. End-stage renal disease, on hemodialysis: The patient will continue on her home medications. She is not scheduled to have dialysis until next week anticipating Saturday. 3. Hypertension: Plan to continue Tekturna and carvedilol with hold parameters for systolic blood pressure less than 100. We will hold amlodipine 4. Hyperlipidemia: Continue atorvastatin. 5. Anxiety: Continue BuSpar. 6. Depression: Continue sertraline. 7. History of cerebrovascular accident: Plan to hold Plavix and aspirin in the setting of overt significant lower gastrointestinal bleeding. 8. DVT prophylaxis with SCDs only. 9. Code status is full code. This was reviewed with the patient at the bedside today. TIME SPENT: Approximately 60 minutes was spent on the admission of this patient , more than half that time was spent with the patient at the bedside reviewing the events leading up to this hospitalization, performing the physical examination, and reviewing the plan of care. CANDE ALCALA NP [id number]/CPS #: [id number] MTDD
[2019-05-08] MEDS: ZOSYN 3.375 GM Q12H per EXTENDED INFUSION IVPB SCH ×2 (17:20)
[2019-05-08] MEDS: Calcium Acetate CAP* 667 MG PO SCH (17:23)
[2019-05-08 17:46] LABS: Hematocrit 34 % (35-47); Hemoglobin 11.1 g/dL (12.0-16.0)
[2019-05-08] MEDS: busPIRone TAB* 5 MG PO SCH (20:41)
[2019-05-08] MEDS ORDERED: Carvedilol TAB* 25 MG PO SCH (21:00)
[2019-05-09 01:26] LABS: Hematocrit 32 % (35-47); Hemoglobin 10.7 g/dL (12.0-16.0)
[2019-05-09] MEDS ORDERED: NS 0.9% 250 ML* 250 ML IV ONE (03:38)
[2019-05-09] MEDS: ZOSYN 3.375 GM Q12H per EXTENDED INFUSION IVPB SCH ×4 (04:50→18:19)
[2019-05-09 06:34] LABS: BUN/Creatinine Ratio 6.7 (8-20); Calcium 8.9 mg/dL (8.6-10.3); EGFR African American 7.6 (>60); EGFR Non-African American 6.3 (>60)
[2019-05-09] MEDS: Calcium Acetate CAP* 667 MG PO SCH (08:20)
[2019-05-09] MEDS: Sertraline* 50 MG TAB PO SCH (08:49)
[2019-05-09] MEDS: busPIRone TAB* 5 MG PO SCH ×4 (08:49→22:32)
[2019-05-09] MEDS: Pantoprazole TAB * 40 MG TAB PO SCH (08:49)
[2019-05-09] MEDS: Atorvastatin* 20 MG TAB PO SCH (08:49)
[2019-05-09] MEDS ORDERED: Bismuth Subsalicylate* 524 MG/30 ML BTL PO PRN (08:57)
[2019-05-09] MEDS ORDERED: Aliskiren TAB* 300 MG PO SCH (09:00)
[2019-05-09] MEDS: HYDROmorphone INJ1* 1 MG/ML SYRINGE IV SLOW PU PRN ×4 (09:49→22:38)
[2019-05-09 10:38] LABS: Hematocrit 34 % (35-47)
[2019-05-09] MEDS: Lactobacillus Acidophilus* 1 TAB PO SCH (12:09)
--- NOTE | 2019-05-09 13:59 | PN ---
Subjective Date of Service: 05/09/19 Interval History: Patient is feeling poorly. Patient states she has pain in her abdomen diffusely , which is worse with movement and palpation. Patient states she is quite hungry and feels very dry. Patient continues to have bowel movements which do not affect her abdominal pain. Patient denies F/C, CP, SOB, dizziness, N/V. Patient's family states she had a similar episode a couple years ago, for which she was admitted to the hospital. Family History: Unchanged from Admission Social History: Unchanged from Admission Past Medical History: Unchanged from Admission Objective Active Medications: Atorvastatin Calcium (Lipitor*) 20 mg PO DAILY [facility] Last Admin: 05/09/19 08:49 Dose: 20 mg Bismuth Subsalicylate (Peptic Relief*) 524 mg PO BID PRN PRN Reason: DIARRHEA Buspirone HCl (Buspar Tab*) 5 mg PO BID [facility] Last Admin: 05/09/19 08:49 Dose: 5 mg Hydromorphone HCl (Dilaudid Inj1s*) 1 mg IV SLOW PU Q4H PRN PRN Reason: PAIN - SEVERE Last Admin: 05/09/19 09:49 Dose: 1 mg Piperacillin Sod/Tazobactam (Sod 3.375 gm/ Sodium Chloride) 100 mls @ 25 mls/ hr IVPB Q12H [facility] Last Admin: 05/09/19 04:50 Dose: 25 mls/hr Lactobacillus Rhamnosus (Lactobacillus Acidophilus*) 1 tab PO DAILY [facility] Last Admin: 05/09/19 12:09 Dose: 1 tab Ondansetron HCl (Zofran Odt Tab*) 4 mg PO Q4H PRN PRN Reason: NAUSEA Pantoprazole Sodium (Protonix Tab*) 40 mg PO DAILY [facility] Last Admin: 05/09/19 08:49 Dose: 40 mg Pharmacy Consult (Zosyn Per Pharmacy*) 1 note FOLLOW UP .ZOSYN PER PHARMACY [facility] Sertraline HCl (Zoloft*) 50 mg PO DAILY [facility] Last Admin: 05/09/19 08:49 Dose: 50 mg Sodium Chloride (Sodium Chloride 0.65% Nasal [place]*) 1 spray BOTH NARES Q2H PRN PRN Reason: DRY NOSE Vital Signs - 8 hr 05/09/19 05/09/19 05/09/19 07:15 08:00 09:49 Temperature 96.8 F Pulse Rate 63 Respiratory 20 20 20 Rate Blood Pressure 87/45 (mmHg) O2 Sat by Pulse 100 Oximetry 05/09/19 05/09/19 11:15 12:07 Temperature 97.7 F Pulse Rate 59 Respiratory 18 20 Rate Blood Pressure 99/47 (mmHg) O2 Sat by Pulse 99 Oximetry Oxygen Devices in Use Now: Nasal Cannula Appearance: Patient is a 58yo female who appears older than stated age and is sitting in the bed in [facility]. Eyes: No Scleral Icterus, PERRLA Ears/Nose/Mouth/Throat: NL Teeth, Lips, Gums, Clear Oropharnyx, Mucous Membranes Moist Neck: NL Appearance and Movements; NL JVP, Trachea Midline Respiratory: Symmetrical Chest Expansion and Respiratory Effort, - - Diminished in B/L bases, Rales in B/L middle lobes. Cardiovascular: NL Sounds; No Murmurs; No JVD, RRR, No Edema Abdominal: No Hepatosplenomegaly, - - Tender throughout, hyperactive bowel sounds. Extremities: No Clubbing, Cyanosis Skin: No Nodules or Sclerosis, - - Dialysis catheter in right anterior chest. Neurological: Alert and Oriented x 3, NL Sensation, NL Muscle Strength and Tone , - - CN II-XII intact. Result Diagrams: 05/09/19 10:13 05/09/19 06:00 Microbiology and Other Data: Microbiology 05/08/19 12:35 Aerobic Blood Culture - Preliminary Blood Venous No Growth Day 1 Anaerobic Blood Culture - Preliminary No Growth Day 1 05/08/19 12:35 Aerobic Blood Culture - Preliminary Blood Venous No Growth Day 1 Anaerobic Blood Culture - Preliminary No Growth Day 1 05/08/19 14:27 Stool Gross Appearance - Final Stool C. difficile DNA Amplification - Final 027 Presumptive NEGATIVE Toxigenic C.diff NEGATIVE 05/08/19 13:26 Stool Occult Blood (HANNAH) - Final Stool Assess/Plan/Problems-Billing Assessment: Patient is a 58yo female with a PMH for ADPKD with ESRD, HTN, HFpEF, CVA, here with colitis of likely bacterial cause who is improving with antibiotics and supportive care. - Patient Problems (1) Colitis Current Visit: Yes Status: Acute Code(s): K52.9 - NONINFECTIVE GASTROENTERITIS AND COLITIS, UNSPECIFIED SNOMED Code(s): 62863689 Comment: - With 3 days of N/V/D and then development of bloody diarrhea - CT shows Pancolitis, likely infectious. 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 - Q12H H/H (2) (HFpEF) heart failure with preserved ejection fraction Current Visit: Yes Status: Acute Code(s): I50.30 - UNSPECIFIED DIASTOLIC ( CONGESTIVE) HEART FAILURE SNOMED Code(s): 547177396 Comment: - Mild pulmonary edema, unchanged from prior - At baseline O2 - Monitor closely for fluid overload. (3) CAD (coronary artery disease) Current Visit: No Status: Acute Code(s): I25.10 - ATHSCL HEART DISEASE OF [place] CORONARY ARTERY W/O ANG PCTRS SNOMED Code(s): 99512111 Comment: - Continue ASA, Plavix, statin, - Hold Carvedilol for hypotension (4) End stage renal failure on dialysis Current Visit: No Status: Acute Code(s): N18.6 - END STAGE RENAL DISEASE; Z99.2 - DEPENDENCE ON RENAL DIALYSIS SNOMED Code(s): 753387549 Comment: - On MWF HD, - Dialysis for Saturday - No indication for more urgent dialysis at this time. - Closely monitor fluid status and electrolytes. (5) CVA (cerebral vascular accident) Current Visit: No Status: Chronic Code(s): I63.9 - CEREBRAL INFARCTION, UNSPECIFIED SNOMED Code(s): 969303985 Comment: - On DAPT still - Hold at this time due to bloody diarrhea. (6) HTN (hypertension) Current Visit: No Status: Chronic Code(s): I10 - ESSENTIAL (PRIMARY) HYPERTENSION SNOMED Code(s): 66815275 Comment: - Hypotensive due to above, hold medications (7) DVT prophylaxis Current Visit: No Status: Acute Priority: High Onset Date: 09/08/14 Code (s): EFT5073 - SNOMED Code(s): 424375526 Comment: -Continue SCDs Status and Disposition: Inpatient, D/C when medically stable.
[2019-05-10] MEDS: ZOSYN 3.375 GM Q12H per EXTENDED INFUSION IVPB SCH ×4 (05:45→18:14)
[2019-05-10] MEDS: HYDROmorphone INJ1* 1 MG/ML SYRINGE IV SLOW PU PRN ×2 (06:13→10:01)
[2019-05-10 06:29] LABS: Hematocrit 34 % (35-47); Hemoglobin 11.2 g/dL (12.0-16.0)
[2019-05-10 06:31] LABS: ABS Eosinophils 0.2 10^3/ul (0-0.6); ABS Lymphocytes 0.6 10^3/ul (1.0-4.8); ABS Monocytes 0.8 10^3/ul (0-0.8); ABS Neutrophils 5.1 10^3/ul (1.5-7.7); Eosinophil % 3.1 %; Hematocrit 34 % (35-47); Hemoglobin 11.2 g/dL (12.0-16.0); Mean Corpuscular HGB Conc 33 g/dL (31-36); Mean Corpuscular Hemoglobin 32 pg (27-31); Mean Corpuscular Volume 97 fL (80-97); Mean Platelet Volume 7.9 fL (7.4-10.4); Platelet Count 173 10^3/uL (150-450); Red Blood Count 3.53 10^6 /uL (3.70-4.87); Red Cell Distribution Width 15 % (10-15); White Blood Count 6.7 10^3/uL (3.5-10.8)
[2019-05-10 06:47] LABS: BUN/Creatinine Ratio 6.9 (8-20); Calcium 8.5 mg/dL (8.6-10.3); EGFR African American 6.7 (>60); EGFR Non-African American 5.5 (>60); Magnesium 2.1 mg/dL (1.9-2.7); Phosphorus 7.3 mg/dL (2.5-5.0)
[2019-05-10] MEDS: Pantoprazole TAB * 40 MG TAB PO SCH (09:42)
[2019-05-10] MEDS: Sertraline* 50 MG TAB PO SCH (09:42)
[2019-05-10] MEDS: busPIRone TAB* 5 MG PO SCH ×2 (09:42→21:18)
[2019-05-10] MEDS: Atorvastatin* 20 MG TAB PO SCH (09:42)
[2019-05-10] MEDS: Lactobacillus Acidophilus* 1 TAB PO SCH (09:42)
[2019-05-10] MEDS: Calcium Acetate CAP* 667 MG PO SCH ×3 (10:02→17:30)
[2019-05-10] MEDS ORDERED: Ketorolac INJ* 15 MG/ML 1 ML VIAL IV PUSH PRN (10:53)
--- NOTE | 2019-05-10 11:21 | PN ---
Subjective Date of Service: 05/10/19 Interval History: Patient is very drowsy today and complains of generalized pain, worst in her abdomen. Patient attributes her musculoskeletal pain to uncomfortable positioning in bed. Patient states her pain is not entirely relieved with the dilaudid. Patient still has an appetite and denies N/V. Patient denies F/C, dizziness, CP, SOB, or palpitations. Family History: Unchanged from Admission Social History: Unchanged from Admission Past Medical History: Unchanged from Admission Objective Active Medications: Acetaminophen (Tylenol Tab*) 975 mg PO Q8H [facility] Atorvastatin Calcium (Lipitor*) 20 mg PO DAILY [facility] Last Admin: 05/10/19 09:42 Dose: 20 mg Bismuth Subsalicylate (Peptic Relief*) 524 mg PO BID [facility] Buspirone HCl (Buspar Tab*) 5 mg PO BID [facility] Last Admin: 05/10/19 09:42 Dose: 5 mg Calcium Acetate (Phoslo Cap*) 1,334 mg PO AC [facility] Last Admin: 05/10/19 10:02 Dose: 1,334 mg Hydromorphone HCl (Dilaudid Inj1s*) 1 mg IV SLOW PU Q4H PRN PRN Reason: PAIN - SEVERE Last Admin: 05/10/19 10:01 Dose: 1 mg Piperacillin Sod/Tazobactam (Sod 3.375 gm/ Sodium Chloride) 100 mls @ 25 mls/ hr IVPB Q12H [facility] Last Admin: 05/10/19 05:45 Dose: 25 mls/hr Ketorolac Tromethamine (Toradol Inj*) 15 mg IV PUSH Q8H PRN PRN Reason: PAIN - MODERATE Lactobacillus Rhamnosus (Lactobacillus Acidophilus*) 1 tab PO DAILY [facility] Last Admin: 05/10/19 09:42 Dose: 1 tab Ondansetron HCl (Zofran Odt Tab*) 4 mg PO Q4H PRN PRN Reason: NAUSEA Oxycodone HCl (Roxycodone Tab*) 2.5 mg PO Q6H PRN PRN Reason: PAIN - MODERATE Pantoprazole Sodium (Protonix Tab*) 40 mg PO DAILY [facility] Last Admin: 05/10/19 09:42 Dose: 40 mg Pharmacy Consult (Zosyn Per Pharmacy*) 1 note FOLLOW UP .ZOSYN PER PHARMACY [facility] Sertraline HCl (Zoloft*) 50 mg PO DAILY [facility] Last Admin: 05/10/19 09:42 Dose: 50 mg Sodium Chloride (Sodium Chloride 0.65% Nasal [place]*) 1 spray BOTH NARES Q2H PRN PRN Reason: DRY NOSE Vital Signs - 8 hr 05/10/19 05/10/19 05/10/19 03:15 06:13 10:01 Temperature 97.5 F Pulse Rate 69 Respiratory 20 20 19 Rate Blood Pressure 100/40 (mmHg) O2 Sat by Pulse 94 Oximetry Oxygen Devices in Use Now: Nasal Cannula Appearance: Patient is a 58yo female who appears older than stated age and is sitting in the bed in [facility]. Eyes: No Scleral Icterus, PERRLA Ears/Nose/Mouth/Throat: NL Teeth, Lips, Gums, Clear Oropharnyx, Mucous Membranes Moist Neck: NL Appearance and Movements; NL JVP, Trachea Midline Respiratory: Symmetrical Chest Expansion and Respiratory Effort, - - Diminished in bases, rales from yesterday resolved. Cardiovascular: NL Sounds; No Murmurs; No JVD, RRR, - - Trace B/L LE edema. Abdominal: NL Sounds; No Tenderness; No Distention, No Hepatosplenomegaly Lymphatic: No Cervical Adenopathy Extremities: No Clubbing, Cyanosis Skin: No Nodules or Sclerosis Neurological: Alert and Oriented x 3, NL Sensation, NL Muscle Strength and Tone , - - CN II-XII intact. Result Diagrams: 05/10/19 06:16 05/10/19 06:16 Microbiology and Other Data: Microbiology 05/08/19 12:35 Aerobic Blood Culture - Preliminary Blood Venous No Growth Day 1 Anaerobic Blood Culture - Preliminary No Growth Day 1 05/08/19 12:35 Aerobic Blood Culture - Preliminary Blood Venous No Growth Day 1 Anaerobic Blood Culture - Preliminary No Growth Day 1 05/08/19 14:27 Stool Gross Appearance - Final Stool C. difficile DNA Amplification - Final 027 Presumptive NEGATIVE Toxigenic C.diff NEGATIVE 05/08/19 13:26 Stool Occult Blood (HANNAH) - Final Stool Assess/Plan/Problems-Billing Assessment: Patient is a 58yo female with a PMH for ADPKD with ESRD, HTN, HFpEF, CVA, here with colitis of likely bacterial cause who is improving with antibiotics and supportive care. - Patient Problems (1) Colitis Current Visit: Yes Status: Acute Code(s): K52.9 - NONINFECTIVE GASTROENTERITIS AND COLITIS, UNSPECIFIED SNOMED Code(s): 05047970 Comment: - With 3 days of N/V/D and then development of bloody diarrhea - Bloody Diarrhea has improved. - Bismuth for diarrheal control. - CT shows Pancolitis, likely infectious. 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 - H/H Stable, check daily. - Add on Tylenol and Toradol for pain (2) (HFpEF) heart failure with preserved ejection fraction Current Visit: Yes Status: Acute Code(s): I50.30 - UNSPECIFIED DIASTOLIC ( CONGESTIVE) HEART FAILURE SNOMED Code(s): 365656142 Comment: - Mild pulmonary edema, unchanged from prior - At baseline O2 - Monitor closely for fluid overload. (3) CAD (coronary artery disease) Current Visit: No Status: Acute Code(s): I25.10 - ATHSCL HEART DISEASE OF [place] CORONARY ARTERY W/O ANG PCTRS SNOMED Code(s): 44741301 Comment: - Continue statin - Hold Carvedilol for hypotension - Hold Aspirin, Plavix for bleeding. (4) End stage renal failure on dialysis Current Visit: No Status: Acute Code(s): N18.6 - END STAGE RENAL DISEASE; Z99.2 - DEPENDENCE ON RENAL DIALYSIS SNOMED Code(s): 596360531 Comment: - On MWF HD, - Dialysis for Saturday - No indication for more urgent dialysis at this time. - Closely monitor fluid status and electrolytes. (5) CVA (cerebral vascular accident) Current Visit: No Status: Chronic Code(s): I63.9 - CEREBRAL INFARCTION, UNSPECIFIED SNOMED Code(s): 490168732 Comment: - On DAPT still - Hold at this time due to bloody diarrhea. (6) HTN (hypertension) Current Visit: No Status: Chronic Code(s): I10 - ESSENTIAL (PRIMARY) HYPERTENSION SNOMED Code(s): 81336214 Comment: - Hypotensive due to above, hold medications (7) DVT prophylaxis Current Visit: No Status: Acute Priority: High Onset Date: 09/08/14 Code (s): HEW1555 - SNOMED Code(s): 545043446 Comment: -Continue SCDs Status and Disposition: Inpatient, D/C when medically stable.
[2019-05-10] MEDS: Acetaminophen TAB* 325 MG PO SCH ×2 (12:31→21:17)
[2019-05-10] MEDS: Bismuth Subsalicylate* 524 MG/30 ML BTL PO SCH ×2 (12:31→21:22)
[2019-05-11] MEDS: Acetaminophen TAB* 325 MG PO SCH ×3 (03:56→20:50)
[2019-05-11] MEDS: ZOSYN 3.375 GM Q12H per EXTENDED INFUSION IVPB SCH ×4 (05:09→18:07)
[2019-05-11 06:08] LABS: ABS Basophils 0.1 10^3/ul (0-0.2); ABS Eosinophils 0.3 10^3/ul (0-0.6); ABS Lymphocytes 1.1 10^3/ul (1.0-4.8); ABS Monocytes 0.8 10^3/ul (0-0.8); ABS Neutrophils 3.8 10^3/ul (1.5-7.7); Eosinophil % 5.4 %; Hematocrit 31 % (35-47); Hemoglobin 10.3 g/dL (12.0-16.0); Mean Corpuscular HGB Conc 33 g/dL (31-36); Mean Corpuscular Hemoglobin 32 pg (27-31); Mean Corpuscular Volume 96 fL (80-97); Mean Platelet Volume 7.9 fL (7.4-10.4); Nucleated Red Blood Cells % 0.1; Platelet Count 160 10^3/uL (150-450); Red Blood Count 3.26 10^6 /uL (3.70-4.87); Red Cell Distribution Width 15 % (10-15); White Blood Count 6.1 10^3/uL (3.5-10.8)
[2019-05-11 06:25] LABS: BUN/Creatinine Ratio 6.3 (8-20); Calcium 8.3 mg/dL (8.6-10.3); EGFR African American 5.6 (>60); EGFR Non-African American 4.7 (>60); Magnesium 2.1 mg/dL (1.9-2.7); Potassium 3.7 mmol/L (3.5-5.0)
[2019-05-11] MEDS: Pantoprazole TAB * 40 MG TAB PO SCH (08:17)
[2019-05-11] MEDS: Lactobacillus Acidophilus* 1 TAB PO SCH (08:17)
[2019-05-11] MEDS: Atorvastatin* 20 MG TAB PO SCH (08:17)
[2019-05-11] MEDS: Calcium Acetate CAP* 667 MG PO SCH ×3 (08:17→18:08)
[2019-05-11] MEDS: Sertraline* 50 MG TAB PO SCH (08:17)
[2019-05-11] MEDS: busPIRone TAB* 5 MG PO SCH ×2 (08:17→20:51)
[2019-05-11] MEDS: Bismuth Subsalicylate* 524 MG/30 ML BTL PO SCH ×2 (08:18→20:52)
[2019-05-11] MEDS ORDERED: HYDROmorphone INJ1* 1 MG/ML SYRINGE IV SLOW PU PRN (08:34)
--- NOTE | 2019-05-11 13:35 | PN ---
Subjective Date of Service: 05/11/19 Interval History: Patient is feeling better today. Patient still has widespread musculoskeletal pain and severe abdominal pain, both of which are improving. Patient also has improvement in number of BMs. Patient denies F/C, CP, SOB N/V, abdominal pain, or other pain. Family History: Unchanged from Admission Social History: Unchanged from Admission Past Medical History: Unchanged from Admission Objective Active Medications: Acetaminophen (Tylenol Tab*) 975 mg PO Q8H [facility] Last Admin: 05/11/19 11:07 Dose: 975 mg Atorvastatin Calcium (Lipitor*) 20 mg PO DAILY [facility] Last Admin: 05/11/19 08:17 Dose: 20 mg Bismuth Subsalicylate (Peptic Relief*) 524 mg PO BID [facility] Last Admin: 05/11/19 08:18 Dose: 524 mg Buspirone HCl (Buspar Tab*) 5 mg PO BID [facility] Last Admin: 05/11/19 08:17 Dose: 5 mg Calcium Acetate (Phoslo Cap*) 1,334 mg PO AC [facility] Last Admin: 05/11/19 11:06 Dose: Not Given Hydromorphone HCl (Dilaudid Inj1s*) 0.5 mg IV SLOW PU Q4H PRN PRN Reason: PAIN - SEVERE Piperacillin Sod/Tazobactam (Sod 3.375 gm/ Sodium Chloride) 100 mls @ 25 mls/ hr IVPB Q12H [facility] Last Admin: 05/11/19 05:09 Dose: 25 mls/hr Ketorolac Tromethamine (Toradol Inj*) 15 mg IV PUSH Q8H PRN PRN Reason: PAIN - MODERATE Last Admin: 05/10/19 15:21 Dose: 15 mg Lactobacillus Rhamnosus (Lactobacillus Acidophilus*) 1 tab PO DAILY [facility] Last Admin: 05/11/19 08:17 Dose: 1 tab Ondansetron HCl (Zofran Odt Tab*) 4 mg PO Q4H PRN PRN Reason: NAUSEA Oxycodone HCl (Roxycodone Tab*) 2.5 mg PO Q6H PRN PRN Reason: PAIN - MODERATE Pantoprazole Sodium (Protonix Tab*) 40 mg PO DAILY [facility] Last Admin: 05/11/19 08:17 Dose: 40 mg Pharmacy Consult (Zosyn Per Pharmacy*) 1 note FOLLOW UP .ZOSYN PER PHARMACY [facility] Sertraline HCl (Zoloft*) 50 mg PO DAILY [facility] Last Admin: 05/11/19 08:17 Dose: 50 mg Sodium Chloride (Sodium Chloride 0.65% Nasal [place]*) 1 spray BOTH NARES Q2H PRN PRN Reason: DRY NOSE Vital Signs - 8 hr 05/11/19 05/11/19 05/11/19 07:15 08:00 11:15 Temperature 97.9 F 97.3 F Pulse Rate 69 72 Respiratory 18 16 20 Rate Blood Pressure 107/48 123/60 (mmHg) O2 Sat by Pulse 98 98 Oximetry Oxygen Devices in Use Now: Nasal Cannula Appearance: Patient is a 58yo female who appears stated age and is sitting in the bed in [facility]. Eyes: No Scleral Icterus, PERRLA Ears/Nose/Mouth/Throat: NL Teeth, Lips, Gums, Clear Oropharnyx, Mucous Membranes Moist Neck: NL Appearance and Movements; NL JVP, Trachea Midline Respiratory: Symmetrical Chest Expansion and Respiratory Effort, - - Diminished in bases, rales in B/L Middle lobes. Cardiovascular: NL Sounds; No Murmurs; No JVD, RRR, No Edema Abdominal: No Hepatosplenomegaly, - - Hypoactive bowel sounds. Diffusely tender without rebound or guarding. Lymphatic: No Cervical Adenopathy Extremities: No Clubbing, Cyanosis Skin: No Rash or Ulcers, No Nodules or Sclerosis Neurological: Alert and Oriented x 3, NL Sensation, NL Muscle Strength and Tone , - - CN II-XII intact. Result Diagrams: 05/11/19 05:31 05/11/19 05:35 Microbiology and Other Data: Microbiology 05/08/19 12:35 Aerobic Blood Culture - Preliminary Blood Venous No Growth Day 1 Anaerobic Blood Culture - Preliminary No Growth Day 1 05/08/19 12:35 Aerobic Blood Culture - Preliminary Blood Venous No Growth Day 1 Anaerobic Blood Culture - Preliminary No Growth Day 1 05/08/19 14:27 Stool Gross Appearance - Final Stool C. difficile DNA Amplification - Final 027 Presumptive NEGATIVE Toxigenic C.diff NEGATIVE 05/08/19 13:26 Stool Occult Blood (HANNAH) - Final Stool Assess/Plan/Problems-Billing Assessment: Patient is a 58yo female with a PMH for ADPKD with ESRD, HTN, HFpEF, CVA, here with colitis of likely bacterial cause who is improving with antibiotics and supportive care. - Patient Problems (1) Colitis Current Visit: Yes Status: Acute Code(s): K52.9 - NONINFECTIVE GASTROENTERITIS AND COLITIS, UNSPECIFIED SNOMED Code(s): 95327624 Comment: - With 3 days of N/V/D and then development of bloody diarrhea - Bloody Diarrhea has resolved - Bismuth for diarrheal control. - CT shows Pancolitis, likely infectious. 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 - H/H Stable - Add on Tylenol and Toradol for pain - Stool culture negative (Does not rule out bacterial Colitis) (2) (HFpEF) heart failure with preserved ejection fraction Current Visit: Yes Status: Acute Code(s): I50.30 - UNSPECIFIED DIASTOLIC ( CONGESTIVE) HEART FAILURE SNOMED Code(s): 674964322 Comment: - Mild pulmonary edema, unchanged from prior - At baseline O2 - Monitor closely for fluid overload. (3) CAD (coronary artery disease) Current Visit: No Status: Acute Code(s): I25.10 - ATHSCL HEART DISEASE OF [place] CORONARY ARTERY W/O ANG PCTRS SNOMED Code(s): 64527579 Comment: - Continue statin - Hold Carvedilol for hypotension - Hold Aspirin, Plavix for bleeding. (4) End stage renal failure on dialysis Current Visit: No Status: Acute Code(s): N18.6 - END STAGE RENAL DISEASE; Z99.2 - DEPENDENCE ON RENAL DIALYSIS SNOMED Code(s): 730577923 Comment: - On MWF HD, - Dialysis today - No indication for more urgent dialysis at this time. - Closely monitor fluid status and electrolytes. (5) CVA (cerebral vascular accident) Current Visit: No Status: Chronic Code(s): I63.9 - CEREBRAL INFARCTION, UNSPECIFIED SNOMED Code(s): 175775683 Comment: - On DAPT still - Hold at this time due to bloody diarrhea. (6) HTN (hypertension) Current Visit: No Status: Chronic Code(s): I10 - ESSENTIAL (PRIMARY) HYPERTENSION SNOMED Code(s): 59782462 Comment: - BP improving, continue to hold BP medications. (7) DVT prophylaxis Current Visit: No Status: Acute Priority: High Onset Date: 09/08/14 Code (s): GNX6450 - SNOMED Code(s): 739263821 Comment: -Continue SCDs Status and Disposition: Inpatient, D/C when medically stable.
[2019-05-11] MEDS ORDERED: Heparin DIALYSIS ONLY(*) 1,000 UNITS/ML VIAL DIALYSIS ONE (15:00)
[2019-05-11] MEDS ORDERED: EPOETIN ALFA-EPBX * 4,000 UNIT/ML VIAL IV ONE (15:00)
[2019-05-11] MEDS: oxyCODONE TAB* 5 MG TAB PO PRN (18:07)
[2019-05-12] MEDS: Acetaminophen TAB* 325 MG PO SCH ×3 (04:38→20:04)
[2019-05-12] MEDS: ZOSYN 3.375 GM Q12H per EXTENDED INFUSION IVPB SCH ×4 (04:38→16:45)
[2019-05-12] MEDS: Calcium Acetate CAP* 667 MG PO SCH ×3 (08:25→16:19)
[2019-05-12] MEDS: Lactobacillus Acidophilus* 1 TAB PO SCH (08:25)
[2019-05-12] MEDS: Sertraline* 50 MG TAB PO SCH (08:25)
[2019-05-12] MEDS: Pantoprazole TAB * 40 MG TAB PO SCH (08:25)
[2019-05-12] MEDS: Atorvastatin* 20 MG TAB PO SCH (08:25)
[2019-05-12] MEDS: busPIRone TAB* 5 MG PO SCH ×2 (08:25→20:04)
[2019-05-12] MEDS: Bismuth Subsalicylate* 524 MG/30 ML BTL PO SCH ×2 (08:26→20:04)
--- NOTE | 2019-05-12 08:27 | PN ---
Subjective Date of Service: 05/12/19 Interval History: Ms. Charles is states she is not doing well today "because she is here." She c /o diffuse joint pain, because she has arthritis and is not moving enough. She c/o mouth soreness and dryness leading to difficulty eating. She complains weakness, SOB that has not changed- she requires O2 at all times. She had a BM today, but is unsure if it was formed and whether or not it contained blood. She ate 50-75% breakfast of liberian toast, 50% grilled cheese for lunch. She has no other complaints today. Family History: Unchanged from Admission Social History: Unchanged from Admission Past Medical History: Unchanged from Admission Objective Active Medications: Acetaminophen (Tylenol Tab*) 975 mg PO Q8H [facility] Last Admin: 05/12/19 04:38 Dose: 975 mg Atorvastatin Calcium (Lipitor*) 20 mg PO DAILY [facility] Last Admin: 05/11/19 08:17 Dose: 20 mg Bismuth Subsalicylate (Peptic Relief*) 524 mg PO BID [facility] Last Admin: 05/11/19 20:52 Dose: 524 mg Buspirone HCl (Buspar Tab*) 5 mg PO BID [facility] Last Admin: 05/11/19 20:51 Dose: 5 mg Calcium Acetate (Phoslo Cap*) 1,334 mg PO AC [facility] Last Admin: 05/11/19 18:08 Dose: Not Given Hydromorphone HCl (Dilaudid Inj1s*) 0.5 mg IV SLOW PU Q4H PRN PRN Reason: PAIN - SEVERE Piperacillin Sod/Tazobactam (Sod 3.375 gm/ Sodium Chloride) 100 mls @ 25 mls/ hr IVPB Q12H [facility] Last Admin: 05/12/19 04:38 Dose: 25 mls/hr Ketorolac Tromethamine (Toradol Inj*) 15 mg IV PUSH Q8H PRN PRN Reason: PAIN - MODERATE Last Admin: 05/10/19 15:21 Dose: 15 mg Lactobacillus Rhamnosus (Lactobacillus Acidophilus*) 1 tab PO DAILY [facility] Last Admin: 05/11/19 08:17 Dose: 1 tab Ondansetron HCl (Zofran Odt Tab*) 4 mg PO Q4H PRN PRN Reason: NAUSEA Oxycodone HCl (Roxycodone Tab*) 2.5 mg PO Q6H PRN PRN Reason: PAIN - MODERATE Last Admin: 05/11/19 18:07 Dose: 2.5 mg Pantoprazole Sodium (Protonix Tab*) 40 mg PO DAILY [facility] Last Admin: 05/11/19 08:17 Dose: 40 mg Pharmacy Consult (Zosyn Per Pharmacy*) 1 note FOLLOW UP .ZOSYN PER PHARMACY [facility] Sertraline HCl (Zoloft*) 50 mg PO DAILY [facility] Last Admin: 05/11/19 08:17 Dose: 50 mg Sodium Chloride (Sodium Chloride 0.65% Nasal [place]*) 1 spray BOTH NARES Q2H PRN PRN Reason: DRY NOSE Vital Signs: Temp Pulse Resp BP Pulse Ox 97.0 F 65 18 153/66 100 05/12/19 11:15 05/12/19 11:15 05/12/19 11:15 05/12/19 11:15 05/12/19 11:15 Oxygen Devices in Use Now: Nasal Cannula Appearance: Ms. Charles is a middle-aged, white, average weight female who is sitting up in bed. She appears older than her stated age. She appears to have midly increased work of breathing, but is otherwise in no acute distress. Eyes: No Scleral Icterus, PERRLA Ears/Nose/Mouth/Throat: NL Teeth, Lips, Gums, Clear Oropharnyx, Mucous Membranes Moist Neck: NL Appearance and Movements; NL JVP, Trachea Midline Respiratory: Symmetrical Chest Expansion and Respiratory Effort, - - Diminished breath sounds throughout b/l Cardiovascular: RRR, No Edema, - - Systolic murmur Abdominal: - - Bowel sounds throughout; mildly distended abdomen, TTP at RUQ, RLQ, nontender elsewhere Extremities: No Edema, No Clubbing, Cyanosis Neurological: Alert and Oriented x 3 Result Diagrams: 05/12/19 10:12 05/12/19 10:12 Microbiology and Other Data: Microbiology 05/08/19 12:35 Aerobic Blood Culture - Preliminary Blood Venous No Growth Day 1 Anaerobic Blood Culture - Preliminary No Growth Day 1 05/08/19 12:35 Aerobic Blood Culture - Preliminary Blood Venous No Growth Day 1 Anaerobic Blood Culture - Preliminary No Growth Day 1 05/08/19 14:27 Stool Gross Appearance - Final Stool C. difficile DNA Amplification - Final 027 Presumptive NEGATIVE Toxigenic C.diff NEGATIVE 05/08/19 13:26 Stool Occult Blood (HANNAH) - Final Stool Assess/Plan/Problems-Billing Assessment: Patient is a 58yo female with a PMH for ADPKD with ESRD, HTN, HFpEF, CVA, here with colitis of likely bacterial cause who is improving with antibiotics and supportive care. 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 - Continue zosyn and PRN fluid to support BP - BP low due to combination of volume depletion and SIRS - H/H Stable - Add on Tylenol and Toradol for pain - Stool culture negative (does not rule out bacterial Colitis) - BC NGTD (2) (HFpEF) heart failure with preserved ejection fraction Comment: - Mild pulmonary edema, unchanged from prior - At baseline O2 - Monitor closely for fluid overload (3) End stage renal failure on dialysis Comment: - On MWF HD - No indication for more urgent dialysis at this time - Closely monitor fluid status and electrolytes (4) HTN (hypertension) Comment: - BP improving, continue to hold BP medications (5) CAD (coronary artery disease) Comment: - Continue statin - Hold Carvedilol for hypotension - Restart asa, plavix (6) CVA (cerebral vascular accident) Comment: - On DAPT still - Restart today (7) DVT prophylaxis Comment: -Continue SCDs (8) Full code status Status and Disposition: Inpatient, D/C when medically stable.
[2019-05-12 10:21] LABS: ABS Basophils 0.1 10^3/ul (0-0.2); ABS Eosinophils 0.3 10^3/ul (0-0.6); ABS Lymphocytes 0.8 10^3/ul (1.0-4.8); ABS Monocytes 0.7 10^3/ul (0-0.8); ABS Neutrophils 3.5 10^3/ul (1.5-7.7); Eosinophil % 6.3 %; Hematocrit 34 % (35-47); Hemoglobin 11.2 g/dL (12.0-16.0); Lymphocyte % 15.2 %; Mean Corpuscular HGB Conc 33 g/dL (31-36); Mean Corpuscular Hemoglobin 32 pg (27-31); Mean Corpuscular Volume 96 fL (80-97); Mean Platelet Volume 7.4 fL (7.4-10.4); Nucleated Red Blood Cells % 0.1; Platelet Count 177 10^3/uL (150-450); Red Blood Count 3.56 10^6 /uL (3.70-4.87); Red Cell Distribution Width 15 % (10-15); White Blood Count 5.5 10^3/uL (3.5-10.8)
[2019-05-12 10:38] LABS: BUN/Creatinine Ratio 5.8 (8-20); Calcium 8.7 mg/dL (8.6-10.3); EGFR African American 9.7 (>60); Potassium 3.6 mmol/L (3.5-5.0)
[2019-05-12] MEDS: oxyCODONE TAB* 5 MG TAB PO PRN (21:48)
[2019-05-13] MEDS: Acetaminophen TAB* 325 MG PO SCH ×3 (04:47→22:23)
[2019-05-13] MEDS: ZOSYN 3.375 GM Q12H per EXTENDED INFUSION IVPB SCH ×4 (04:47→17:56)
[2019-05-13 05:03] LABS: ABS Basophils 0.1 10^3/ul (0-0.2); ABS Eosinophils 0.5 10^3/ul (0-0.6); ABS Lymphocytes 1.1 10^3/ul (1.0-4.8); ABS Monocytes 0.8 10^3/ul (0-0.8); ABS Neutrophils 4.3 10^3/ul (1.5-7.7); Eosinophil % 7.1 %; Hematocrit 35 % (35-47); Hemoglobin 11.6 g/dL (12.0-16.0); Lymphocyte % 16.6 %; Mean Corpuscular HGB Conc 33 g/dL (31-36); Mean Corpuscular Hemoglobin 32 pg (27-31); Mean Corpuscular Volume 96 fL (80-97); Mean Platelet Volume 7.5 fL (7.4-10.4); Platelet Count 199 10^3/uL (150-450); Red Blood Count 3.64 10^6 /uL (3.70-4.87); Red Cell Distribution Width 15 % (10-15); White Blood Count 6.9 10^3/uL (3.5-10.8)
[2019-05-13 05:20] LABS: BUN/Creatinine Ratio 6.5 (8-20); C Reactive Protein 97.79 mg/L (<8.01); Calcium 9.1 mg/dL (8.6-10.3); EGFR African American 7.7 (>60); EGFR Non-African American 6.4 (>60); Potassium 3.9 mmol/L (3.5-5.0)
[2019-05-13] MEDS: busPIRone TAB* 5 MG PO SCH ×2 (09:03→22:24)
[2019-05-13] MEDS: Calcium Acetate CAP* 667 MG PO SCH ×3 (09:03→17:58)
[2019-05-13] MEDS: Bismuth Subsalicylate* 524 MG/30 ML BTL PO SCH ×2 (09:04→22:24)
[2019-05-13] MEDS: Clopidogrel TAB* 75 MG PO SCH (09:04)
[2019-05-13] MEDS: Sertraline* 50 MG TAB PO SCH (09:04)
[2019-05-13] MEDS: Pantoprazole TAB * 40 MG TAB PO SCH (09:04)
[2019-05-13] MEDS: Lactobacillus Acidophilus* 1 TAB PO SCH (09:04)
[2019-05-13] MEDS: Aspirin 81 mg CHEW TAB* 81 MG TAB.CHEW PO SCH (09:04)
[2019-05-13] MEDS: Atorvastatin* 20 MG TAB PO SCH (09:04)
[2019-05-13] MEDS: amLODIPine TAB* 5 MG PO SCH (11:13)
--- NOTE | 2019-05-13 11:27 | PN ---
Progress Note - Progress Note Date of Service: 05/13/19 Note: Inpatient Acute Dialysis Note Performed by Dr. Arnoldo Tirado, [facility] Nephrology 05/13/2019 She was admitted with 3 days of NVD, then developed bloody diarrhea. Since admission Bloody diarrhea has resolved. CT showed Quinn Colitis, likely infectious vs. ischemic colitis. Circumferential wall thickening of the entire colon & of the distal and terminal ileum. Of note, CRP coming down on IV ABx 127 on admission to 97 today Shes on IV ABx Zosyn. Of note, has HFpEF & Mild pulmonary edema, She was seen and examined on HD for ESRD. Sleepy not complaining HD Routine: MWF HD Duration: 3.0 Hr UF Goal: 1-2 L/Rx Vitals: BP: 190/85. BP has been very high since yesterday HR: 75/m Blood Flow: 400 cc/min Dialysate Flow: 600 cc/min Bath: K: 3K Ca: 2.5Ca Na: 138 Hco3: 35 Temp: 36 C Dialyzer: Revaclear 300 Access: Rt IJ TDC Heparin free. Meds with HD: None Tolerates HD well. No Intradialytic Hypotension. A/: Elevated BP, likely Volume related. Will try removing 1-2 L today Electrolytes Ok Colitis management per primary team, but I'll do HD heparin free and avoid Precipitous drop in BP fearing ischemic colitis, but in view of high CRP, likely Infectious in etiology.
--- NOTE | 2019-05-13 11:41 | PN ---
Subjective Date of Service: 05/13/19 Interval History: Ms. Charles is seen in room with fried at bedside. She continues to have intermittent cramping in the abdomen that she states feels like "gas pain." She c/o increased flatulance and has had 1 loose bowel movement without blood today. She c/o increase SOB for appx 2h today, and is due to HD today. She has no other complaints. Family History: Unchanged from Admission Social History: Unchanged from Admission Past Medical History: Unchanged from Admission Objective Active Medications: Acetaminophen (Tylenol Tab*) 975 mg PO Q8H [facility] Last Admin: 05/13/19 04:47 Dose: 975 mg Amlodipine Besylate (Norvasc Tab*) 5 mg PO DAILY [facility] Last Admin: 05/13/19 11:13 Dose: 5 mg Aspirin (Aspirin 81 Mg Chew Tab*) 81 mg PO DAILY [facility] Last Admin: 05/13/19 09:04 Dose: 81 mg Atorvastatin Calcium (Lipitor*) 20 mg PO DAILY [facility] Last Admin: 05/13/19 09:04 Dose: 20 mg Bismuth Subsalicylate (Peptic Relief*) 524 mg PO BID [facility] Last Admin: 05/13/19 09:04 Dose: 524 mg Buspirone HCl (Buspar Tab*) 5 mg PO BID [facility] Last Admin: 05/13/19 09:03 Dose: 5 mg Calcium Acetate (Phoslo Cap*) 1,334 mg PO AC [facility] Last Admin: 05/13/19 09:03 Dose: 1,334 mg Clopidogrel Bisulfate (Plavix Tab*) 75 mg PO DAILY [facility] Last Admin: 05/13/19 09:04 Dose: 75 mg Hydromorphone HCl (Dilaudid Inj1s*) 0.5 mg IV SLOW PU Q4H PRN PRN Reason: PAIN - SEVERE Hydroxyzine HCl (Atarax Tab*) 10 mg PO Q8H PRN PRN Reason: ANXIETY Piperacillin Sod/Tazobactam (Sod 3.375 gm/ Sodium Chloride) 100 mls @ 25 mls/ hr IVPB Q12H [facility] Last Admin: 05/13/19 04:47 Dose: 25 mls/hr Lactobacillus Rhamnosus (Lactobacillus Acidophilus*) 1 tab PO DAILY [facility] Last Admin: 05/13/19 09:04 Dose: 1 tab Ondansetron HCl (Zofran Odt Tab*) 4 mg PO Q4H PRN PRN Reason: NAUSEA Oxycodone HCl (Roxycodone Tab*) 2.5 mg PO Q6H PRN PRN Reason: PAIN - MODERATE Last Admin: 05/12/19 21:48 Dose: 2.5 mg Pantoprazole Sodium (Protonix Tab*) 40 mg PO DAILY [facility] Last Admin: 05/13/19 09:04 Dose: 40 mg Pharmacy Consult (Zosyn Per Pharmacy*) 1 note FOLLOW UP .ZOSYN PER PHARMACY [facility] Sertraline HCl (Zoloft*) 50 mg PO DAILY [facility] Last Admin: 05/13/19 09:04 Dose: 50 mg Sodium Chloride (Sodium Chloride 0.65% Nasal [place]*) 1 spray BOTH NARES Q2H PRN PRN Reason: DRY NOSE Last Admin: 05/12/19 20:04 Dose: 1 spray Vital Signs: Temp Pulse Resp BP Pulse Ox 97.8 F 72 18 185/72 98 05/13/19 17:45 05/13/19 17:45 05/13/19 17:57 05/13/19 17:45 05/13/19 17:45 Oxygen Devices in Use Now: Nasal Cannula Appearance: Ms. Charles is an anxious-appearing middle-aged white female who appears older than her stated age; she appears to have increased work of breathing. Eyes: No Scleral Icterus, PERRLA Ears/Nose/Mouth/Throat: NL Teeth, Lips, Gums, Clear Oropharnyx, Mucous Membranes Moist Neck: NL Appearance and Movements; NL JVP, Trachea Midline Respiratory: - - Increase work of breathing. Course rales throughout lung curry Cardiovascular: RRR, No Edema, - - Systolic murmur Abdominal: - - Abdominal distention with tenderness to palpation thoughout, R>L Extremities: No Edema, No Clubbing, Cyanosis Neurological: Alert and Oriented x 3 Result Diagrams: 05/13/19 04:43 05/13/19 04:43 Microbiology and Other Data: Microbiology 05/08/19 12:35 Aerobic Blood Culture - Preliminary Blood Venous No Growth Day 1 Anaerobic Blood Culture - Preliminary No Growth Day 1 05/08/19 12:35 Aerobic Blood Culture - Preliminary Blood Venous No Growth Day 1 Anaerobic Blood Culture - Preliminary No Growth Day 1 05/08/19 14:27 Stool Gross Appearance - Final Stool C. difficile DNA Amplification - Final 027 Presumptive NEGATIVE Toxigenic C.diff NEGATIVE 05/08/19 13:26 Stool Occult Blood (HANNAH) - Final Stool Assess/Plan/Problems-Billing Assessment: Patient is a 58yo female with a PMH for ADPKD with ESRD, HTN, HFpEF, CVA, here with colitis of likely bacterial cause who is improving with antibiotics and supportive care. - Patient Problems (1) Colitis Comment: - With 3 days of N/V/D and then development of bloody diarrhea - Bloody diarrhea has resolved - Bismuth for diarrheal control - CT shows Pancolitis, likely infectious; most likely diagnosis based on anatomy - Could also shows ischemic colitis superimposed on viral gastroenteritis, but this is less likely and does not manager change - Continue zosyn - BP improved; now elevated - H/H Stable - Continue Tylenol and Toradol for pain - Stool culture negative (does not rule out bacterial Colitis) - BC NGTD (2) (HFpEF) heart failure with preserved ejection fraction Comment: - Mild pulmonary edema, unchanged from prior - At baseline O2 - Monitor closely for fluid overload (3) End stage renal failure on dialysis Comment: - On MWF HD - No indication for more urgent dialysis at this time - Closely monitor fluid status and electrolytes (4) HTN (hypertension) Comment: -SBP 150-190's -continue carvedilol, aliskiren; restart amlodipine (5) CAD (coronary artery disease) Comment: - Continue statin, carvedilol - continue asa, plavix (6) CVA (cerebral vascular accident) Comment: - On DAPT still (7) DVT prophylaxis Comment: -Continue SCDs (8) Full code status Status and Disposition: Inpatient, D/C when medically stable.
[2019-05-13] MEDS ORDERED: Heparin DIALYSIS ONLY(*) 1,000 UNITS/ML VIAL DIALYSIS ONE (14:00)
[2019-05-13] MEDS ORDERED: Simethicone TAB* 80 MG TAB.CHEW PO PRN (14:46)
[2019-05-13] MEDS: hydrOXYzine HCL TAB* 10 MG PO PRN (17:57)
[2019-05-13] MEDS ORDERED: hydrALAZINE IV* 20 MG/ML VIAL IV SLOW PU PRN (23:10)
[2019-05-14] MEDS: ZOSYN 3.375 GM Q12H per EXTENDED INFUSION IVPB SCH ×4 (04:49→19:13)
[2019-05-14] MEDS: hydrOXYzine HCL TAB* 10 MG PO PRN (04:50)
[2019-05-14] MEDS: Acetaminophen TAB* 325 MG PO SCH ×4 (04:50→23:35)
[2019-05-14 06:14] LABS: BUN/Creatinine Ratio 5.8 (8-20); Calcium 9.4 mg/dL (8.6-10.3); EGFR African American 12.7 (>60); EGFR Non-African American 10.5 (>60); Potassium 3.6 mmol/L (3.5-5.0)
[2019-05-14] MEDS: Calcium Acetate CAP* 667 MG PO SCH ×3 (09:19→17:35)
[2019-05-14] MEDS: Bismuth Subsalicylate* 524 MG/30 ML BTL PO SCH ×2 (09:19→21:37)
[2019-05-14] MEDS: Sertraline* 50 MG TAB PO SCH (09:20)
[2019-05-14] MEDS: Pantoprazole TAB * 40 MG TAB PO SCH (09:20)
[2019-05-14] MEDS: Atorvastatin* 20 MG TAB PO SCH (09:20)
[2019-05-14] MEDS: Lactobacillus Acidophilus* 1 TAB PO SCH (09:20)
[2019-05-14] MEDS: Clopidogrel TAB* 75 MG PO SCH (09:20)
[2019-05-14] MEDS: Aspirin 81 mg CHEW TAB* 81 MG TAB.CHEW PO SCH (09:20)
[2019-05-14] MEDS: busPIRone TAB* 5 MG PO SCH ×2 (09:20→21:37)
[2019-05-14] MEDS: amLODIPine TAB* 5 MG PO SCH (09:20)
[2019-05-14] MEDS: Aliskiren TAB* 300 MG PO SCH (11:45)
[2019-05-14] MEDS: Carvedilol TAB* 25 MG PO SCH ×2 (11:45→21:38)
--- NOTE | 2019-05-14 13:14 | PN ---
Subjective Date of Service: 05/14/19 Interval History: Ms. Charles states she is feeling better today. She feels as if her breathing is improved. She was woken up at 0300 this morning for ABG blood draw, but does not know why and states she was having no SOB at that time. She had 1 episode of diarrhea today, 1 yesterday, but no reports of blood in stool. She has no abdominal pain currently, but does c/o gas. She has no other complaints today. Family History: Unchanged from Admission Social History: Unchanged from Admission Past Medical History: Unchanged from Admission Objective Active Medications: Acetaminophen (Tylenol Tab*) 975 mg PO Q8H [facility] Last Admin: 05/14/19 04:50 Dose: 975 mg [place]isk[place]ren (Tekturna Tab*) 300 mg PO DAILY [facility] Last Admin: 05/14/19 11:45 Dose: 300 mg Amlodipine Besylate (Norvasc Tab*) 5 mg PO DAILY [facility] Last Admin: 05/14/19 09:20 Dose: 5 mg Aspirin (Aspirin 81 Mg Chew Tab*) 81 mg PO DAILY [facility] Last Admin: 05/14/19 09:20 Dose: 81 mg Atorvastatin Calcium (Lipitor*) 20 mg PO DAILY [facility] Last Admin: 05/14/19 09:20 Dose: 20 mg Bismuth Subsalicylate (Peptic Relief*) 524 mg PO BID [facility] Last Admin: 05/14/19 09:19 Dose: 524 mg Buspirone HCl (Buspar Tab*) 5 mg PO BID [facility] Last Admin: 05/14/19 09:20 Dose: 5 mg Calcium Acetate (Phoslo Cap*) 1,334 mg PO AC [facility] Last Admin: 05/14/19 11:44 Dose: 1,334 mg Carvedilol (Coreg Tab*) 50 mg PO BID [facility] Last Admin: 05/14/19 11:45 Dose: 50 mg Clopidogrel Bisulfate (Plavix Tab*) 75 mg PO DAILY [facility] Last Admin: 05/14/19 09:20 Dose: 75 mg Hydralazine HCl (Apresoline Iv*) 5 mg IV SLOW PU Q6H PRN PRN Reason: Systolic Bp Greater Than:160 Last Admin: 05/13/19 23:29 Dose: 5 mg Hydroxyzine HCl (Atarax Tab*) 10 mg PO Q8H PRN PRN Reason: ANXIETY Last Admin: 05/14/19 04:50 Dose: 10 mg Piperacillin Sod/Tazobactam (Sod 3.375 gm/ Sodium Chloride) 100 mls @ 25 mls/ hr IVPB Q12H [facility] Last Admin: 05/14/19 04:49 Dose: 25 mls/hr Lactobacillus Rhamnosus (Lactobacillus Acidophilus*) 1 tab PO DAILY [facility] Last Admin: 05/14/19 09:20 Dose: 1 tab Ondansetron HCl (Zofran Odt Tab*) 4 mg PO Q4H PRN PRN Reason: NAUSEA Pantoprazole Sodium (Protonix Tab*) 40 mg PO DAILY [facility] Last Admin: 05/14/19 09:20 Dose: 40 mg Pharmacy Consult (Zosyn Per Pharmacy*) 1 note FOLLOW UP .ZOSYN PER PHARMACY [facility] Sertraline HCl (Zoloft*) 50 mg PO DAILY [facility] Last Admin: 05/14/19 09:20 Dose: 50 mg Simethicone (Mylicon Tab*) 80 mg PO Q6H PRN PRN Reason: gas Sodium Chloride (Sodium Chloride 0.65% Nasal [place]*) 1 spray BOTH NARES Q2H PRN PRN Reason: DRY NOSE Last Admin: 05/12/19 20:04 Dose: 1 spray Vital Signs: Temp Pulse Resp BP Pulse Ox 97.2 F 74 18 183/73 98 05/14/19 07:15 05/14/19 07:15 05/14/19 07:59 05/14/19 07:15 05/14/19 07:15 Oxygen Devices in Use Now: Nasal Cannula Appearance: Ms. Charles is a middle aged white female who is laying in bed sleeping; she wakes easily. She appears older than stated age, chronically ill. She has mildly increased work of breathing. Eyes: No Scleral Icterus, PERRLA Ears/Nose/Mouth/Throat: NL Teeth, Lips, Gums, Clear Oropharnyx, - - Dry oral mucosa Neck: NL Appearance and Movements; NL JVP, Trachea Midline Respiratory: Symmetrical Chest Expansion and Respiratory Effort, - - faint rales throughout lung curry Cardiovascular: RRR, No Edema, - - Systolic murmur Abdominal: NL Sounds; No Tenderness; No Distention, No Hepatosplenomegaly Extremities: No Edema, No Clubbing, Cyanosis Neurological: Alert and Oriented x 3 Result Diagrams: 05/13/19 04:43 05/14/19 05:18 Microbiology and Other Data: Microbiology 05/08/19 12:35 Aerobic Blood Culture - Preliminary Blood Venous No Growth Day 1 Anaerobic Blood Culture - Preliminary No Growth Day 1 05/08/19 12:35 Aerobic Blood Culture - Preliminary Blood Venous No Growth Day 1 Anaerobic Blood Culture - Preliminary No Growth Day 1 05/08/19 14:27 Stool Gross Appearance - Final Stool C. difficile DNA Amplification - Final 027 Presumptive NEGATIVE Toxigenic C.diff NEGATIVE 05/08/19 13:26 Stool Occult Blood (HANNAH) - Final Stool Assess/Plan/Problems-Billing Assessment: Patient is a 58yo female with a PMH for ADPKD with ESRD, HTN, HFpEF, CVA, here with colitis of likely bacterial cause who is improving with antibiotics and supportive care. - Patient Problems (1) Colitis Comment: - With 3 days of N/V/D and then development of bloody diarrhea - Bloody diarrhea has resolved - Bismuth for diarrheal control - CT shows Pancolitis, likely infectious; most likely diagnosis based on anatomy - Could also show ischemic colitis superimposed on viral gastroenteritis, but this is less likely and does not manager change - Abd x-ray 05/13 shows no free air, non-obstructive gas pattern, small b/l pleural effusions - Continue zosyn - H/H Stable - Continue Tylenol for pain - Stool culture negative (does not rule out bacterial Colitis) - BC NGTD (2) (HFpEF) heart failure with preserved ejection fraction Comment: - Mild pulmonary edema, unchanged from prior - At baseline O2 - Monitor closely for fluid overload (3) End stage renal failure on dialysis Comment: - On MWF HD - No indication for more urgent dialysis at this time - Closely monitor fluid status and electrolytes (4) HTN (hypertension) Comment: -SBP 150-190's -continue amlodipine -restart aliskiren, carvedilol today (5) CAD (coronary artery disease) Comment: - Continue statin, carvedilol - continue asa, plavix (6) CVA (cerebral vascular accident) Comment: - On DAPT still (7) DVT prophylaxis Comment: -Continue SCDs (8) Full code status Status and Disposition: Inpatient, D/C when medically stable.
[2019-05-15] MEDS: hydrOXYzine HCL TAB* 10 MG PO PRN ×2 (01:51→12:33)
[2019-05-15] MEDS: ZOSYN 3.375 GM Q12H per EXTENDED INFUSION IVPB SCH ×2 (05:22)
[2019-05-15] MEDS: Acetaminophen TAB* 325 MG PO SCH ×2 (05:27→12:33)
[2019-05-15] MEDS: Atorvastatin* 20 MG TAB PO SCH (07:51)
[2019-05-15] MEDS: Pantoprazole TAB * 40 MG TAB PO SCH (07:51)
[2019-05-15] MEDS: Lactobacillus Acidophilus* 1 TAB PO SCH (07:51)
[2019-05-15] MEDS: Aliskiren TAB* 300 MG PO SCH (07:52)
[2019-05-15] MEDS: amLODIPine TAB* 5 MG PO SCH (07:52)
[2019-05-15] MEDS: Carvedilol TAB* 25 MG PO SCH (07:54)
[2019-05-15] MEDS: Aspirin 81 mg CHEW TAB* 81 MG TAB.CHEW PO SCH (07:58)
[2019-05-15] MEDS: Clopidogrel TAB* 75 MG PO SCH (07:58)
[2019-05-15] MEDS: Calcium Acetate CAP* 667 MG PO SCH ×2 (08:00→12:33)
[2019-05-15] MEDS: Bismuth Subsalicylate* 524 MG/30 ML BTL PO SCH (08:00)
[2019-05-15] MEDS: busPIRone TAB* 5 MG PO SCH (09:40)
[2019-05-15] MEDS: Sertraline* 50 MG TAB PO SCH (09:40)
[2019-05-15] MEDS ORDERED: Heparin DIALYSIS ONLY(*) 1,000 UNITS/ML VIAL DIALYSIS ONE (10:00)
[2019-05-15 13:04] VITALS: BP 178/54
[2019-05-15] MEDS ORDERED: Nystatin TOP POWDER* 15 GM BTL TOPICAL SCH (14:30)
--- NOTE | 2019-05-15 14:53 | PN ---
Progress Note - Progress Note Date of Service: 05/15/19 Note: Inpatient Acute Dialysis Note Performed by Dr. Arnoldo Tirado, [facility] Nephrology 05/15/2019 Diarrhea is better. Getting d/c to [facility] today.' She was seen and examined on HD for ESRD. Not complaining HD Routine: MWF HD Duration: 3.0 Hr UF Goal: 2 L/Rx Vitals: BP: 160/85. HR: 75/m Blood Flow: 400 cc/min Dialysate Flow: 600 cc/min Bath: K: 3K Ca: 2.5Ca Na: 138 Hco3: 35 Temp: 36 C Dialyzer: Revaclear 300 Access: Rt IJ TDC Heparin free. Meds with HD: None Tolerates HD well. No Intradialytic Hypotension.
--- NOTE | 2019-05-15 19:50 | DS ---
DISCHARGE SUMMARY: DATE OF ADMISSION: 05/08/19 DATE OF DISCHARGE: 05/15/19 PROVIDER: Elvia Cornell NP. PRIMARY CARE PROVIDER: Dr. Brigitte Patel. ATTENDING PHYSICIAN WHILE IN THE HOSPITAL: Dr. Julius Nash * (dictated by Elvia Cornell NP). PRIMARY DIAGNOSES: 1. Pancolitis. 2. Mild pulmonary edema. 3. Yeast infection. SECONDARY DIAGNOSES: 1. End-stage renal disease, on hemodialysis. 2. History of inflammatory arthropathy and rheumatoid arthritis. 3. Hypertension. 4. History of diastolic congestive heart failure. 5. Cerebrovascular accident. 6. Depression. STUDIES COMPLETED WHILE IN THE HOSPITAL: The patient had a chest x-ray, radiologist's impression: Cardiomegaly with interstitial edema. She had a CT of the abdomen and pelvis, radiologist's impression: Findings of infectious pancolitis, marked gallbladder distention, no additional findings of acute cholecystitis, previously seen polycystic renal disease, chronic pleural effusion with associated lung volume loss, right ovarian cyst. Follow up with a pelvic ultrasound as recommended. She had an abdominal x-ray on 05/13/19, showed no pneumoperitoneum, nonobstructive bowel gas pattern, known polycystic kidney disease, small bilateral pleural effusion, extensive vascular calcifications. She had an electrocardiogram which showed sinus rhythm at a rate of 76, prolonged DC, LVH. DISCHARGE MEDICATIONS: New home medication: 1. Lactobacillus 1 tablet p.o. daily. 2. Simethicone 80 mg p.o. q.6 hours as needed for gas. 3. Nystatin powder apply topically to perineal area twice daily. Continued home medications: 1. Aspirin 81 mg p.o. daily. 2. Amlodipine 5 mg p.o. daily. 3. Eucerin cream topically as needed. 4. Zofran 4 mg p.o. q.4 hours as needed. 5. Tylenol 500 mg p.o. q.8 hours as needed. 6. Saline nasal spray 1 spray both nares 2 hours as needed. 7. Sodium polystyrene sulfonate/sorb 15 g/60 mL suspension take as directed by dialysis nurse. 8. Imodium 2 mg every 4 hours as needed for diarrhea. 9. Atarax 10 mg p.o. q.8 hours as needed. 10. Albuterol nebulizer every 4 hours as needed for shortness of breath and wheezing. 11. PhosLo cap 1334 mg tablet p.o. 3 times a day with meals. 12. BuSpar 5 mg p.o. b.i.d. 13. Carvedilol 50 mg p.o. b.i.d. 14. Sertraline 50 mg p.o. daily. 15. Omeprazole 20 mg p.o. daily. 16. Clopidogrel 75 mg p.o. daily. 17. Melatonin 1 tablet p.o. at bedtime p.r.n. 18. Atorvastatin 20 mg p.o. daily. 19. Folic acid 1 tablet p.o. daily. 20. Tekturna 300 mg p.o. daily. HISTORY OF PRESENT ILLNESS AND HOSPITAL COURSE: Ms. Charles is a 58-year-old female with a past medical history significant for chronic end-stage renal disease, on hemodialysis Saturday, Saturday, Saturday; congestive heart failure with preserved ejection fraction; history of CVA and depression, who presented to the hospital with complaints of weakness and diarrhea. Prior to her admission, Ms. Charles reported that her diarrhea started 1 week prior to her admission. She had been given Imodium at [facility], which had not been effective in reducing the amount of her diarrhea. She went to dialysis on Saturday05/06/19 and was evaluated in the emergency room there due to diarrhea and mild hypotension. After a workup was negative, she was discharged back to [facility] and the subsequent 2 days the patient continued to have persistent diarrhea, noted to have some blood in her stool reported by [facility] and also described abdominal pain with a mild fever, so she was sent to the emergency room for further evaluation. While in the emergency room, she had routine blood work. She was found to have a stable hemoglobin of 11.5. BUN and creatine were elevated, but at her baseline as the patient does have chronic renal disease. Due to the reports of bloody diarrhea and consistent diarrhea, Hospital Medicine admitted her. The patient did have a CT of the abdomen and pelvis, which showed pancolitis. She was treated with Zosyn IV during this hospitalization. Her symptoms did improve. She denies any further abdominal pain. Diarrhea has improved. She has had no diarrheal bowel movements today on her day of discharge. She does report gas. At this time, the patient is feeling better. She does complain of burning and itching in her groin and perineal area. She does appear to have a yeast infection. She will be treated with nystatin. REVIEW OF SYSTEMS: The patient denies any fever or chills. She denies any nausea or vomiting. She denies currently any diarrhea or abdominal pain. She does report gas. She denies any bloody bowel movements. She denies any chest pain. She does reports that her breathing is at her baseline. She denies any fever or chills. PHYSICAL EXAMINATION: General: At this time, Ms. Charles is alert and oriented, she is resting in her hospital bed. Her skin is pale and sallow. Vital Signs: Blood pressure 178/54, heart rate is 66, respirations 22, temperature was 97.6, O2 saturation on 3 L was 100%. HEENT: Head is atraumatic , normocephalic. Eyes: EOMs are intact. Sclerae anicteric and not pale. Oral mucosa appeared to be moist. Neck is supple. Lungs are diminished throughout bilaterally with some scattered wheezing. Cardiac: S1, S2. Regular rate and rhythm. No rubs or gallops. Abdomen is soft and nontender. Bowel sounds are present x4. Extremities: She is able to move all 4 extremities. There is no clubbing. Pedal pulses are +1 bilaterally. Neurologic: She is awake, alert, oriented x3. Speech is clear. Thought process is intact. There is no gross focal deficits. Skin is intact. At this time, Ms. Charles is stable for discharge back to [facility]. DISCHARGE PLAN: Ms. Charles will be discharged to [facility]. Activity as tolerated. 1. Pancolitis. The patient did receive IV antibiotics during this admission. She does not need any further antibiotics for treatment of her pancolitis. Her diarrhea has subsided. She should continue on lactobacillus for probiotic and she can have simethicone as needed for gas. 2. Mild pulmonary edema. Her breathing has improved. Her breathing is at her baseline. She denies any current worsening shortness of breath. She will continue on carvedilol 50 mg p.o. b.i.d. 3. History of CVA. The patient will continue on clopidogrel 75 mg p.o. daily, atorvastatin 20 mg p.o. daily. 4. End-stage renal disease. The patient will continue on PhosLo and sodium polystyrene 15 g as needed as per the direction of dialysis. 5. Hypertension. Tekturna. The patient should follow up with primary care provider in 4 to 7 days. She should return to the emergency room for any chest pain, shortness of breath, weakness, uncontrolled diarrhea, fever, chills, or any other concerning symptoms. CONDITION ON DISCHARGE: Fair. DISPOSITION ON DISCHARGE: [facility]. I have discussed this with my attending Dr. Julius Nash, he is in agreement with my plan. ELVIA CORNELL, BLOW DOWN HELPER [id number]/CPS #: [id number] EL
== END 2019-05-15 15:07 | DRG 385 ==
LOC: ED 11:59 → MEDTELE 14:04
PROVIDERS: ADMIT Internal Medicine; ATTEND Internal Medicine
PROC: 5A1D70Z Performance of Urinary Filtration, Intermittent, Less than 6 Hours Per Day (ICD-10-PCS; principal; 2019-05-11)
PROC: 5A1D70Z Performance of Urinary Filtration, Intermittent, Less than 6 Hours Per Day (ICD-10-PCS; 2019-05-13)
PROC: 5A1D70Z Performance of Urinary Filtration, Intermittent, Less than 6 Hours Per Day (ICD-10-PCS; 2019-05-15)
DX: K51.00 Ulcerative (chronic) pancolitis without complications (principal); N18.6 End stage renal disease; 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 disease with heart failure and with stage 5 chronic kidney disease, or end stage renal disease; I50.30 Unspecified diastolic (congestive) heart failure; Q61.3 Polycystic kidney, unspecified; E78.5 Hyperlipidemia, unspecified; B37.9 Candidiasis, unspecified; M06.9 Rheumatoid arthritis, unspecified; F32.9 Major depressive disorder, single episode, unspecified; I25.10 Atherosclerotic heart disease of native coronary artery without angina pectoris; Z86.73 Personal history of transient ischemic attack (TIA), and cerebral infarction without residual deficits; Z99.2 Dependence on renal dialysis; Z99.81 Dependence on supplemental oxygen; Z79.1 Long term (current) use of non-steroidal anti-inflammatories (NSAID); Z79.82 Long term (current) use of aspirin; Z79.899 Other long term (current) drug therapy; Z88.5 Allergy status to narcotic agent; Z91.048 Other nonmedicinal substance allergy status; Z82.49 Family history of ischemic heart disease and other diseases of the circulatory system; Z84.1 Family history of disorders of kidney and ureter; Z79.02 Long term (current) use of antithrombotics/antiplatelets
CPT/HCPCS: 36415; 36600; 71045; 74019; 74176; 74177; 80048; 80053; 82270; 82803; 83605; 83735; 84100; 85014; 85018; 85025; 86140; 86850; 86900; 86901; 87040; 87045; 87046; 87077; 87493; 87899; 90935; 93005; 96374; 99283; A9270-GY; G0257; J0360; J1170; J1644; J1885; J2543; J3010; Q5106

== ENCOUNTER 2019-05-27 04:36 | Inpatient (IN) | payer MEDICARE, MEDICAID ==
--- NOTE | 2019-05-27 04:45 | ED ---
Shortness of Breath - HPI Summary HPI Summary: 58 year old F arriving via EMS from [facility] complains of worsening shortness of breath, nonproductive cough, weakness x1 week. Recent dx respiratory infection. Placed on antibiotics. No fever or chest pain. Symptoms rated 0/10 in severity. Symptoms aggravated by nothing. Symptoms alleviated by nothing. On dialysis 3 times a week. Last dialysis Friday 05/25. Has dialysis scheduled 05/27 AM. - History of Current Complaint Chief Complaint: EDRespiratoryDistress Time Seen by Provider: 05/27/19 04:37 Hx Obtained From: Patient Onset/Duration: Lasting Weeks - 1, Still Present Timing: Constant Current Severity: None Aggravating Factors: Nothing Alleviating Factors: Nothing - Allergy/Home Medications Allergies/Adverse Reactions: Allergies Allergy/AdvReac Type Severity Reaction Status Date / Time Adhesive Tape Allergy Intermediate Hives Verified 05/27/19 04:41 codeine AdvReac Severe GI Upset Verified 05/27/19 04:41 Home Medications: Home Medications Aliskiren Hemifumarate [Aliskiren] 300 mg PO QAM 05/27/19 [History Confirmed ] Amoxicillin/Clavulanate TAB* [Augmentin TAB*] 500 mg PO DAILY 05/27/19 [History Confirmed 05/27/19] Nitroglycerin [Nitroglycerin Transdermal] 0.2 mg TD DAILY 05/27/19 [History Confirmed 05/27/19] PMH/Surg Hx/FS Hx/Imm Hx Endocrine/Hematology History: Reports: Hx Anemia - gets epogen shot Denies: Hx Blood Disorders, Hx Blood Transfusions, Hx Bone Marrow Disease, Hx Diabetes, Hx Systemic Lupus Erythematosus, Hx Thyroid Disease, Hx Unexplained Bleeding Cardiovascular History: Reports: Hx Aneurysm, Hx Cardiomegaly, Hx Congestive Heart Failure, Hx Coronary Artery Disease, Hx Hypercholesterolemia, Hx Hypertension, Hx Myocardial Infarction, Other Cardiovascular Problems/Disorders - CAD, MA, MURMUR, bradycardia Denies: Hx Pacemaker/ICD, Hx Peripheral Vascular Disease Respiratory History: Reports: Hx Chronic Obstructive Pulmonary Disease (COPD), Hx Pleural Effusion Denies: Hx Pneumonia, Hx Pulmonary Edema, Hx Pulmonary Embolism, Hx Seasonal Allergies, Hx Sleep Apnea GI History: Reports: Hx Diverticulosis, Hx Gastroesophageal Reflux Disease, Hx Ulcer History: Reports: Hx Chronic Renal Failure - dialysis patient, Hx Dialysis - HEMODIALYSIS [facility]IA [facility], Hx Kidney Infection, Hx Renal Disease - ESRD, polycystic kidney disease, Other Problems/Disorders - polycystic kidney, does notvoid Denies: Hx Kidney Stones Musculoskeletal History: Reports: Hx Arthritis, Hx Rheumatoid Arthritis, Hx Back Problems, Hx Orthopedic Injury - left hip fx, Other Musculoskeletal History - LEFT HIP FX Denies: Hx Osteoporosis Sensory History: Reports: Hx Contacts or Glasses - not with pt Denies: Hx Cataracts, Hx Eye Injury, Hx Eye Prosthesis, Hx Glaucoma, Hx Legally Blind, Hx Macular Degeneration, Hx Vision Problem, Hx Deafness, Hx Hearing Aid, Hx Hearing Problem Opthamlomology History: Reports: Hx Contacts or Glasses - not with pt Denies: Hx Cataracts, Hx Eye Injury, Hx Eye Prosthesis, Hx Glaucoma, Hx Legally Blind, Hx Macular Degeneration, Hx Vision Problem Neurological History: Reports: Hx CVA, Hx Seizures - last admission in ED, Other Neuro Impairments/Disorders - brain aneurism x5 per pt Denies: Hx Dementia, Hx Developmental Delay, Hx Headaches, Hx Migraine, Hx Nerve Disease Psychiatric History: Reports: Hx Anxiety, Hx Depression Denies: Hx Panic Disorder, Hx Post Traumatic Stress Disorder, Other Psychiatric Issues/Disorders - Cancer History Hx Chemotherapy: No - Surgical History Surgery Procedure, Year, and Place: dialysis port x2 Hx Anesthesia Reactions: No - Immunization History Date of Tetanus Vaccine: Unknown Infectious Disease History: No Infectious Disease History: Denies: Hx of Known/Suspected MRSA, Hx Tuberculosis, Traveled Outside the [place] in Last 30 Days - Family History Known Family History: Negative: Cardiac Disease, Hypertension, Diabetes - Social History Alcohol Use: Occasionally Hx Substance Use: No Substance Use Type: Reports: None Hx Tobacco Use: Yes Smoking Status (MU): Former Smoker Type: Cigarettes Amount Used/How Often: not much, only while in college Have You Smoked in the Last Year: No Review of Systems - ROS Summary Review of Systems Summary: Home Medications Medication Instructions Recorded Confirmed Type Acetaminophen [Tylenol Extra 500 mg PO Q8H PRN 07/02/18 05/27/19 History Strength] Aliskiren TAB* [Tekturna TAB*] 300 mg PO DAILY 07/02/18 05/27/19 History Aspirin 81 mg CHEW TAB* 81 mg PO DAILY 07/02/18 05/27/19 History Atorvastatin* [Lipitor 20 MG*] 20 mg PO DAILY 07/02/18 05/27/19 History Carvedilol TAB* [Coreg TAB*] 50 mg PO BID 07/02/18 05/27/19 History Clopidogrel TAB* [Plavix TAB*] 75 mg PO DAILY 07/02/18 05/27/19 History Omeprazole CAP (NF) [Prilosec CAP* 20 mg PO DAILY 07/02/18 05/27/19 History 20 MG] Ondansetron ODT TAB* [Zofran 4 MG 4 mg PO Q4H PRN 07/02/18 05/27/19 History Odt TAB*] Sertraline* [Zoloft*] 50 mg PO DAILY 07/02/18 05/27/19 History amLODIPine TAB* [Norvasc 5 mg TAB*] 5 mg PO DAILY 07/02/18 05/27/19 History hydrOXYzine HCL TAB* [Atarax 10 MG 10 mg PO Q8H PRN 07/02/18 05/27/19 History TAB*] Albuterol 2.5MG/3ML (0.083%)* 3 ml INH Q4H PRN 05/06/19 05/27/19 History [Ventolin 2.5 MG/3 ML NEB.CRISSY*] Calcium Acetate CAP* [Phoslo CAP*] 1,334 mg PO TID WITH MEALS 05/06/19 05/27/19 History Loperamide CAP* [Imodium CAP*] 2 mg PO Q4H PRN MDD 8 tabs 05/06/19 05/27/19 History Melatonin (NF) 3 mg PO BEDTIME PRN 05/06/19 05/27/19 History Minerin Cream* [Eucerin Cream*] 1 applic TOPICAL BEDTIME 05/06/19 05/27/19 History Saline NASAL SPRAY 0.65%* [Sodium 1 spray BOTH NARES Q2H PRN 05/06/19 05/27/19 History Chloride 0.65% Nasal [place]*] busPIRone TAB* [Buspar TAB*] 5 mg PO BID 05/06/19 05/27/19 History Folic Acid/B Cplx/C/Selen/Zinc 1 each PO DAILY 05/08/19 05/27/19 History [Dialyvite 3,000 Tablet] Lactobacillus Acidophilus* 1 tab PO DAILY #30 tab 12/05/19 12/18/19 Rx Simethicone TAB* [Mylicon TAB*] 80 mg PO Q6H PRN #30 tab.chew 05/14/19 05/27/19 Rx Nystatin TOP POWDER* 1 applic TOPICAL BID btl 05/15/19 05/27/19 Rx Aliskiren Hemifumarate [Aliskiren] 300 mg PO QAM 05/27/19 05/27/19 History Amoxicillin/Clavulanate TAB* 500 mg PO DAILY 05/27/19 05/27/19 History [Augmentin TAB*] Nitroglycerin [Nitroglycerin 0.2 mg TD DAILY 05/27/19 05/27/19 History Transdermal] Negative: Fever Negative: Chest Pain Positive: Shortness Of Breath, Cough Positive: Weakness All Other Systems Reviewed And Are Negative: Yes Physical Exam - Summary Physical Exam Summary: General: Cachectic elderly FEMALE. Appears in moderate respiratory distress HEENT: Normocephalic, Atraumatic. Eyes: Conjuctiva normal, PERRL. Oropharynx: Clear, mucous membranes moist, (-) exudates. Neck: Soft, FROM, (-) lymphadenopathy, (-) thyromegaly, (-) JVD. Cardiovascular: Normal sinus rhythm, (-) murmur. Lungs: Bibasilar crackles, rhonchi in right upper lobe Abdomen: Soft, non-tender, non-distended, (-) organomegaly, normal bowel sounds. Back: (-) CVA tenderness Extremities: 2+ edema bilaterally in lower extremities Skin: Warm, dry, (-) rash. Neuro: Alert and oriented x3, no focal deficits. Psychiatric: Mood normal, affect normal. Triage Information Reviewed: Yes Vital Signs On Initial Exam: Initial Vitals Temp Pulse Resp BP Pulse Ox 98.2 F 63 24 155/97 100 05/27/19 04:36 05/27/19 04:36 05/27/19 04:36 05/27/19 04:36 05/27/19 04:36 Vital Signs Reviewed: Yes Procedures - Sedation Patient Received Moderate/Deep Sedation with Procedure: No Diagnostics - Vital Signs Vital Signs Temp Pulse Resp BP Pulse Ox 05/27/19 04:36 98.2 F 63 24 155/97 100 - Laboratory Result Diagrams: 05/27/19 04:48 05/27/19 04:48 Lab Statement: Any lab studies that have been ordered have been reviewed, and results considered in the medical decision making process. - Radiology CXR Radiology Interpretation Completed By: ED Physician Summary of Radiographic Findings: Increased interstitial markings consistent with fluid overload. Unchanged from previous. PENDING OFFICIAL REPORT - EKG 0438 Cardiac Rate: NL - 64 BPM EKG Rhythm: Sinus Rhythm Summary of EKG Findings: EKG at 0438 reveals normal sinus rhythm with rate of 64 BPM, no acute changes, no ischemic changes. This EKG was reviewed and interpreted by Dr. Pizarro. Re-Evaluation - Re-Evaluation First Eval Re-Evaluation Time: 07:04 Comment: patient agrees to admission Course/Dx - Course Course Of Treatment: 58-year-old female presents by ambulance for shortness of breath. Patient appears in significant distress upon arrival. She has known COPD. Dialysis patient. She does have a productive cough. No fevers or signs of acute illness. DuoNeb given upon arrival. Initial ABG was unsuccessful. Patient ordered for BiPAP. ABG then demonstrates CO2 retention. Chest x-ray unremarkable. Patient scheduled for dialysis later today. Patient referred to hospitalist for admission in the ICU while on BiPAP. Dialysis as soon as possible. Patient given Duoneb treatment. Patient referred to hospitalist for ICU admission and dialysis. - Diagnoses Provider Diagnoses: Acute respiratory failure - Physician Notifications Discussed Care of Patient With: Doug Reyes Time Discussed With Above Provider: 07:03 Instructed by Provider To: Admit As Inpatient Discharge ED - Sign-Out/Discharge Documenting (check all that apply): Patient Departure - Discharge Plan Condition: Good Disposition: ADMITTED TO [facility] - Billing Disposition and Condition Condition: GOOD Disposition: Admitted to [facility] - Attestation Statements Document Initiated by Scribe: Yes Documenting Scribe: Deandra Ng Provider For Whom Khariibernestina is Documenting (Include Credential): Danya Pizarro MD Scribe Attestation: Deandra Morales, scribed for Danya Pizarro MD on 05/28/19 at 0320. Scribe Documentation Reviewed: Yes Provider Attestation: The documentation as recorded by the Deandra woods accurately reflects the service I personally performed and the decisions made by me, Danya Pizarro MD Status of Scribe Document: Viewed
[2019-05-27 05:01] LABS: ABS Basophils 0.1 10^3/ul (0-0.2); ABS Eosinophils 0.3 10^3/ul (0-0.6); ABS Lymphocytes 0.8 10^3/ul (1.0-4.8); ABS Monocytes 0.7 10^3/ul (0-0.8); ABS Neutrophils 7.1 10^3/ul (1.5-7.7); Eosinophil % 3.3 %; Hematocrit 32 % (35-47); Hemoglobin 10.8 g/dL (12.0-16.0); Lymphocyte % 9.3 %; Mean Corpuscular HGB Conc 34 g/dL (31-36); Mean Corpuscular Hemoglobin 32 pg (27-31); Mean Corpuscular Volume 94 fL (80-97); Mean Platelet Volume 7.8 fL (7.4-10.4); Platelet Count 199 10^3/uL (150-450); Red Blood Count 3.44 10^6 /uL (3.70-4.87); Red Cell Distribution Width 15 % (10-15)
[2019-05-27 05:05] LABS: INR 1.03 (0.82-1.09)
[2019-05-27 05:17] LABS: ALT 14 U/L (7-52); AST 15 U/L (13-39); Albumin 3.5 g/dL (3.2-5.2); Albumin/Globulin Ratio 1.2 (1-3); Alkaline Phosphatase 119 U/L (34-104); Anion Gap 10 mmol/L (2-11); BUN/Creatinine Ratio 5.5 (8-20); Blood Urea Nitrogen 28 mg/dL (6-24); CO2 Carbon Dioxide 31 mmol/L (22-32); Calcium 8.9 mg/dL (8.6-10.3); Chloride 93 mmol/L (101-111); EGFR African American 10.6 (>60); EGFR Non-African American 8.7 (>60); Glucose 99 mg/dL (70-100); Potassium 3.3 mmol/L (3.5-5.0); Sodium 134 mmol/L (135-145); Total Protein 6.5 g/dL (6.4-8.9)
[2019-05-27 05:21] LABS: Troponin I 0.03 ng/mL (<0.03)
[2019-05-27] MEDS ORDERED: Albuterol/Ipratropium NEB.SOL* Albuterol 2.5 MG/Ipratropium 0.5 MG 3 ML INH ONE (05:23)
[2019-05-27] MEDS ORDERED: LORazepam INJ* 2 MG/ML 1 ML VIAL IV PUSH ONE (07:07)
[2019-05-27] MEDS ORDERED: Lorazepam PYXIS KEY PRN (07:07)
[2019-05-27] MEDS ORDERED: Simethicone TAB* 80 MG TAB.CHEW PO PRN (08:24)
[2019-05-27] MEDS ORDERED: Albuterol/Ipratropium NEB.SOL* Albuterol 2.5 MG/Ipratropium 0.5 MG 3 ML ONE (08:55)
[2019-05-27] MEDS ORDERED: Nitroglycerin 0.2 MG/HR PATCH* (5 MG) TRANSDERM SCH (09:00)
[2019-05-27] MEDS: Albuterol/Ipratropium NEB.SOL* Albuterol 2.5 MG/Ipratropium 0.5 MG 3 ML INH SCH ×4 (09:44→19:33)
[2019-05-27] MEDS ORDERED: Heparin DIALYSIS ONLY(*) 1,000 UNITS/ML VIAL DIALYSIS ONE (11:00)
[2019-05-27 12:18] LABS: Hepatitis B Surface Antigen Nonreactive (Nonreactive)
[2019-05-27] MEDS ORDERED: LORazepam INJ* 2 MG/ML 1 ML VIAL ONE (12:21)
[2019-05-27 12:35] LABS: Hepatitis B Surface Ab Not Immune (Immune)
--- NOTE | 2019-05-27 12:45 | PN ---
Progress Note - Progress Note Date of Service: 05/27/19 Note: Inpatient Acute Dialysis Note Performed by Dr. Arnoldo Tirado, [facility] Nephrology 05/27/2019 She was admitted with Pulmonary edema She was seen and examined on HD for ESRD. No complaint HD Routine: MWF HD Duration: 3.0 Hr UF Goal: 3 L/Rx Vitals: BP: 170/85. HR: 75/m Blood Flow: 400 cc/min Dialysate Flow: 600 cc/min Bath: K: 2K Ca: 2.5Ca Na: 138 Hco3: 35 Temp: 36 C Dialyzer: Revaclear 300 Access: Rt IJ TDC Heparin 2000 Bolus and 1000 maintenance Meds with HD: None Tolerates HD well. No Intradialytic Hypotension.
[2019-05-27] MEDS: Carvedilol TAB* 25 MG PO SCH ×2 (13:00→19:31)
[2019-05-27] MEDS: Atorvastatin* 20 MG TAB PO SCH (13:06)
[2019-05-27] MEDS: hydrOXYzine HCL TAB* 10 MG PO PRN (13:06)
[2019-05-27] MEDS: amLODIPine TAB* 5 MG PO SCH (13:06)
[2019-05-27] MEDS: Sertraline* 50 MG TAB PO SCH (13:06)
[2019-05-27] MEDS: Clopidogrel TAB* 75 MG PO SCH (13:06)
[2019-05-27] MEDS: Pantoprazole TAB * 40 MG TAB PO SCH (13:06)
[2019-05-27] MEDS: Lactobacillus Acidophilus* 1 TAB PO SCH (13:07)
[2019-05-27] MEDS: Calcium Acetate CAP* 667 MG PO SCH ×3 (13:07→19:30)
[2019-05-27] MEDS: Aspirin 81 mg CHEW TAB* 81 MG TAB.CHEW PO SCH (13:07)
[2019-05-27] MEDS: Aliskiren TAB* 300 MG PO SCH (13:08)
[2019-05-27] MEDS: busPIRone TAB* 5 MG PO SCH ×2 (13:15→19:30)
[2019-05-27] MEDS: guaiFENesin ER TAB 600 MG PO SCH ×2 (13:15→19:31)
--- NOTE | 2019-05-27 14:13 | CONSULT ---
Consult Consult: Consult requested for: SHI. Consult requested by: Dr. Pizarro, ER Performed by Dr. Arnoldo Tirado, [facility] Nephrology 05/27/2019 58 YO WF. Known ESD on HD, MWF 2nd shift. Last HD Saturday [facility] SOB at rest. CXR in ED showed acute Pulmonary Edema. She just recovered from a recent admission with diarrhea, during that time, only minimal fluid was taken off during HD, & this possibly contributed to Fluid overload. She had very high BP on admission. PMH: ESRD HTN Dyslipidemia CAD CHF Hospital Meds: Albuterol/Ipratropium (Duoneb (Albuterol 2.5 Mg/Ipratropium 0.5 Mg)) 1 neb INH [id number] AWAKE [facility] Last Admin: 05/27/19 12:53 Dose: 1 neb Aliskiren (Tekturna Tab*) 300 mg PO QAM [facility] Last Admin: 05/27/19 13:08 Dose: 300 mg Amlodipine Besylate (Norvasc Tab*) 5 mg PO DAILY [facility] Last Admin: 05/27/19 13:06 Dose: 5 mg Aspirin (Aspirin 81 Mg Chew Tab*) 81 mg PO DAILY [facility] Last Admin: 05/27/19 13:07 Dose: 81 mg Atorvastatin Calcium (Lipitor*) 20 mg PO DAILY [facility] Last Admin: 05/27/19 13:06 Dose: 20 mg Buspirone HCl (Buspar Tab*) 5 mg PO BID [facility] Last Admin: 05/27/19 13:15 Dose: 5 mg Calcium Acetate (Phoslo Cap*) 1,334 mg PO TID [facility] Last Admin: 05/27/19 13:07 Dose: 1,334 mg Carvedilol (Coreg Tab*) 50 mg PO BID [facility] Last Admin: 05/27/19 13:00 Dose: 50 mg Clopidogrel Bisulfate (Plavix Tab*) 75 mg PO DAILY [facility] Last Admin: 05/27/19 13:06 Dose: 75 mg Guaifenesin (Mucinex*) 600 mg PO BID [facility] Last Admin: 05/27/19 13:15 Dose: 600 mg Heparin Sodium (Porcine) (Heparin Vial(*)) 5,000 units SUBCUT Q8HR [facility] Hydroxyzine HCl (Atarax Tab*) 10 mg PO Q8H PRN PRN Reason: ANXIETY Last Admin: 05/27/19 13:06 Dose: 10 mg Lactobacillus Rhamnosus (Lactobacillus Acidophilus*) 1 tab PO DAILY [facility] Last Admin: 05/27/19 13:07 Dose: 1 tab Melatonin (Melatonin) 3 mg PO BEDTIME PRN PRN Reason: INSOMNIA Miscellaneous (Ativan Pyxis [place]) 1 ea N/A .ATIVAN IV BUTLER PRN PRN Reason: PYXIS BUTLER Pantoprazole Sodium (Protonix Tab*) 40 mg PO DAILY [facility] Last Admin: 05/27/19 13:06 Dose: 40 mg Sertraline HCl (Zoloft*) 50 mg PO DAILY [facility] Last Admin: 05/27/19 13:06 Dose: 50 mg Simethicone (Mylicon Tab*) 80 mg PO Q6H PRN PRN Reason: gas Sodium Chloride (Sodium Chloride 0.65% Nasal [place]*) 1 spray BOTH NARES Q2H PRN PRN Reason: DRY SKIN Allergies: Adhesive Tape. Codeine Social History: Denied Alcohol, smoking. No IVDA. Family History: Negative for Dialysis, ESRD or Renal Transplant. Positive for HTN & DM Surgical History:Tunneled HD catheter 12-Point Review of System obtained: Constitutional: Fatigue. No fever no weight loss Eyes No blurry vision. No red eye CV: SOB at rest & minimal exertion, no chest pain no syncope. Has worsening edema Respiratory: SOB at rest no cough no wheezing G.I: no diarrhea no nausea no vomiting no pain no blood per rectum no burning no obstruction symptoms Skin no rash Neurology No seizures or neurologic deficit Endocrine no diabetes, no heat or cold intolerance Hem/Lymphatic no bleeding no lymph nodes swelling Immune/Allergy no allergic reactions Musculoskeletal: No arthritis, no swelling Psych no anxiety no depression no hallucination Objective: Vital Signs Temp 98.6 F 05/27/19 08:17 Pulse 60 05/27/19 13:13 Resp 16 05/27/19 13:13 BP 209/96 05/27/19 12:30 Pulse Ox 94 05/27/19 13:13 Intake & Output 05/26/19 05/27/19 05/27/19 18:59 06:59 18:59 Output Total 0 Balance 0 Weight 58.967 kg 60.8 kg Output: Urine 0 10 Point multi system exam: Constitutional Alert Oriented x 3 HEENT: No Conjunctivitis Abdomen Soft Abdomen No Ascites Heart: NSR, ++ LE Edema, No murmur Lungs: Crackles. B/L Extremities: ++ edema, no rash Skin no rash Neurology No deficit. CN intact Hem/Lymph: no palpable lymph nodes Musculoskeletal: No joint swelling Laboratory Reviewed ABG pH 7.29 (7.35-7.45) L 05/27/19 09:20 ABG HCO3 26.1 mmol/L (19-31) 05/27/19 09:20 Sodium 134 mmol/L (135-145) L 05/27/19 04:48 Potassium 3.3 mmol/L (3.5-5.0) L 05/27/19 04:48 BUN 28 mg/dL (6-24) H 05/27/19 04:48 Creatinine 5.08 mg/dL (0.51-0.95) H 05/27/19 04:48 Calcium 8.9 mg/dL (8.6-10.3) 05/27/19 04:48 AST 15 U/L (13-39) 05/27/19 04:48 ALT 14 U/L (7-52) 05/27/19 04:48 Imaging: CXR: Acute Pulm edema and B/L PLEF Assessment and Plan: *ESRD, Fluid overload: HD today. May need extra HD tomorrow. *K 3.3, HD with 3K Bath *BP high, fluid overload related, try UF 3L *Fluid overload, as above She was informed about lab/radiology results & prognosis. All questions were answered. She was made part of the treatment plan.
[2019-05-27] MEDS ORDERED: hydrALAZINE IV* 20 MG/ML VIAL IV SLOW PU ONE (14:15)
[2019-05-27] MEDS: Heparin VIAL(*) 5000 UNITS/ML VIAL (FIVE THOUSAND) SUBCUT SCH ×2 (14:29→21:55)
--- NOTE | 2019-05-27 16:35 | HP ---
CC: Dr. Brigitte Patel; Dr. Tirado, Nephrology; Dr. Rolando Arevalo * ADMISSION HISTORY AND PHYSICAL: DATE OF ADMISSION: 05/27/19 PRIMARY CARE PROVIDER: Dr. Brigitte Patel. ATTENDING FOR THIS ADMISSION: Dr. Rolando Arevalo, ICU black studies professor. * (dictated by Jenna Mooney, SENHA) CHIEF COMPLAINT: Shortness of breath. HISTORY OF PRESENT ILLNESS: Ms. Charles is a 58-year-old female patient, well known to our service, who presented in the emergency department today from her residence at [facility] with complaint of shortness of breath x1 week. The patient states she had what was described to her as an upper respiratory illness for the past week and she had been placed on Augmentin. The patient states that she had gotten progressively short of breath in a rather insidious manner over the past week. She was due for dialysis today. She is normally on a Saturday, Saturday, Saturday regimen for her end-stage renal failure. However, this morning upon waking, she became so short of breath that she was bordering on some respiratory distress. She was brought to the emergency department for evaluation where she was found to be in pulmonary edema and fluid overload. On chest x-ray, this also coincided with her findings of fluid overload. It was determined that the patient should be admitted for a more aggressive diuresis through ultrafiltration with her dialysis; however, during that time in the emergency department, her respiratory status did decline and she required placement of acute BiPAP for respiratory support. At that point, hospitalists were initially called to admit the patient, but the patient was then handed off to intensive care services for admission. PAST MEDICAL HISTORY: Significant for end-stage renal disease, on hemodialysis ; history of rheumatoid arthritis; history of hypertension; history of diastolic congestive heart failure; history of CVA; and history of depression. PAST SURGICAL HISTORY: Significant for placement of dialysis port x2. HOME MEDICATIONS: Include: 1. Aspirin 81 mg daily. 2. Amlodipine 5 mg daily. 3. Zofran 4 mg p.o. q.4 hours as needed. 4. Eucerin cream topically at bedtime. 5. Tylenol 500 mg p.o. q.6 hours as needed. 6. Saline nasal spray both nares q.2 hours as needed. 7. Sodium polystyrene 15 g as needed. 8. Imodium 2 mg as needed for diarrhea. 9. Hydroxyzine 10 mg p.o. q.8 hours as needed for anxiety. 10. Albuterol inhaler q.6 hours as needed for shortness of breath. 11. PhosLo caps 1334 mg p.o. 3 times a day with meals. 12. BuSpar 5 mg p.o. b.i.d. 13. Carvedilol 50 mg p.o. b.i.d. 14. Sertraline 50 mg p.o. daily. 15. Tekturna 300 mg p.o. daily. 16. Omeprazole 20 mg p.o. daily. 17. Plavix 75 mg p.o. daily. 18. Melatonin 1 tablet p.o. at bedtime as needed for insomnia. 19. Atorvastatin 20 mg p.o. daily. 20. Folic acid, B complex, selenium, and zinc combination supplement 1 tab p.o. daily. ALLERGIES: The patient has an allergy to ADHESIVE TAPE and CODEINE. FAMILY HISTORY: Father of polycystic kidney disease and coronary artery disease. SOCIAL HISTORY: The patient does not smoke, does not drink alcohol. 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 Her surrogate decision maker is her son, Azalia. REVIEW OF SYSTEMS: The patient does endorse acute shortness of breath, but denies any chest pain. No fever or chills. No nausea, no vomiting, no abdominal pain. The patient does not make urine. No arthralgias or myalgias. She does have some fatigue, but no further constitutional complaints. PHYSICAL EXAMINATION GENERAL: Reveals a chronically ill-appearing female, in moderate amount of distress. VITAL SIGNS: Blood pressure 132/93, heart rate 92, respiratory rate 16, O2 saturation 93% on BiPAP with a temperature of 98.4. HEENT: The patient is atraumatic, normocephalic. PERRLA. Nonicteric sclerae. Oral mucosa is dry. Tongue is midline. NECK: Supple, nontender. No JVD noted and no carotid bruits auscultated. LUNGS: Rhonchorous bilaterally with no wheezing noted. She does have some fine crackles bilaterally at the bases. CARDIOVASCULAR: S1, S2 present. She has a systolic murmur noted. Otherwise no gallops or rubs. Rate and rhythm are currently regular. ABDOMEN: Soft, nontender, nondistended. Positive bowel sounds in all 4 quadrants. MUSCULOSKELETAL: There is bipedal edema +3 of the lower extremities from about mid pelaez down. It is nonpitting. She has +2 radial pulses palpable. There is otherwise no clubbing or cyanosis noted. NEUROLOGIC: She is currently alert and oriented x3, but she does have periods of drowsiness when she was off the BiPAP. PSYCHIATRIC: She is cooperative and appropriate. SKIN: Warm, dry, and intact. She does have some mottling at baseline on the left upper extremity and some discoloration of the skin of the forearm, but otherwise it is intact. DIAGNOSTIC STUDIES/LAB DATA: WBCs 9.0, RBCs 3.44, hemoglobin 10.8, hematocrit 32 , platelets 199. Sodium 134, potassium 3.3, chloride 93, CO2 31, anion gap 10, BUN 28, creatinine 5.08, GFR 8.7, BUN/creatinine ratio 5.5, glucose 99, lactic acid 0.4, calcium 8.9. Total bilirubin 0.40, AST 15, ALT 14, alk phos 119. Troponin 0.03, BNP 517. Total protein 6.5, albumin 3.5, globulin 3.0, albumin/ globulin ratio 1.2. INR 1.03. ABG; pH 7.25, pCO2 70, pO2 184, bicarb 26.1, O2 saturation 99.3% on 100% FiO2 on BiPAP. Imaging: X-ray of the chest at 4:38 this morning shows findings consistent with congestive heart failure, showing some prominence of the interstitial markings and a small to moderate-sized bilateral pleural effusions which appear unchanged from imaging on 05/15/19. IMPRESSION AND PLAN: Ms. Charles is a hemodialysis dependent female who presented in fluid overload and some respiratory distress this morning, who will be admitted to the ICU. 1. Acute respiratory failure. The patient has been temporarily placed on BiPAP pending dialysis with ultrafiltration this morning. She will be seen by Nephrology today. We expect her to be seen by Dr. Tirado, who will direct her fluid management in terms of her dialysis this morning, which should happen at about 9 a.m. We will repeat a blood gas after she has been on BiPAP and reassess her respiratory needs at that time. We hope that by managing her fluid balance that we will be able to wean her BiPAP appropriately. It should be noted that she is on 3 L nasal cannula mostly overnight and as needed at the care home. We do suspect she will need some sort of oxygen support as she is weaned off of the BiPAP. I am hoping to may be wean her to Vapotherm in anticipation of getting her off the BiPAP mask, which is very uncomfortable for her. We will give her p.r.n. Ativan to make the mask more comfortable and we will otherwise reevaluate these needs after she is completed her dialysis this morning. 2. End-stage renal disease, on hemodialysis. Again, this will be directed by nephrology service and we look to their guidance for additional recommendations. 3. History of hypertension. Her blood pressure does seem elevated this morning. I am hoping that her blood pressure will be coming down after she is dialyzed. We will give her regularly scheduled medications as well and continue to monitor blood pressure closely. 4. History of depression. She will be continued on BuSpar and her SSRI and also we will give her hydroxyzine as needed and Ativan as needed in the immediate time because of the acute BiPAP. 5. History of cerebrovascular accident. The patient will be continued on aspirin, Plavix, and statin. 6. History of diastolic heart failure. In combination with her fluid overload , she does have history of diastolic failure. She will be maintained on her carvedilol. I believe that by managing her with dialysis at this time we did not need to repeat an echocardiogram. She is regular sinus on telemetry. Her EKG is no different from previous EKGs and she is not complaining of any chest pain. She will be monitored on telemetry. 7. Diet: Heart-healthy diet as tolerated. 8. DVT prophylaxis: She is high risk and we will place her on heparin subcu q.8 hours. Ambulate as tolerated once she is over the acute period, but for now she can be out of bed to chair. Code Status: DNR/DNI The rest of the patient's course will be determined by further diagnostics, laboratories, and any other input from other providers as warranted during this admission. This plan of care has been discussed with Dr. Rolando Arevalo, the ICU black studies professor on this case, and he is in agreement with this plan of care. TIME SPENT: Critical care time 70 minutes on admission planning. JENNA MOONEY, SILK BLOCKER [id number]/[facility] #: [id number] [facility]
[2019-05-27] MEDS ORDERED: ZOSYN 3.375 GM x ONE DOSE over 30 miuntes IVPB ×2 (17:30)
[2019-05-27] MEDS ORDERED: Vancomycin(*) 1,000 MG in NS 0.9% 250 ML* 250 ML IV ONE (18:00)
[2019-05-27] MEDS ORDERED: Acetaminophen TAB* 325 MG ONE (19:25)
[2019-05-27] MEDS ORDERED: Zosyn per Pharmacy* NOTE FOLLOW UP PRN (20:45)
[2019-05-27] MEDS: ZOSYN 3.375 GM Q12H per EXTENDED INFUSION IVPB SCH ×2 (21:55)
[2019-05-28 04:18] LABS: ABS Basophils 0.1 10^3/ul (0-0.2); ABS Lymphocytes 0.9 10^3/ul (1.0-4.8); ABS Monocytes 0.9 10^3/ul (0-0.8); Eosinophil % 0.2 %; Hematocrit 27 % (35-47); Lymphocyte % 6.9 %; Mean Corpuscular HGB Conc 33 g/dL (31-36); Mean Corpuscular Hemoglobin 32 pg (27-31); Mean Corpuscular Volume 96 fL (80-97); Platelet Count 206 10^3/uL (150-450); Red Blood Count 2.86 10^6 /uL (3.70-4.87); Red Cell Distribution Width 15 % (10-15); White Blood Count 12.9 10^3/uL (3.5-10.8)
[2019-05-28 05:01] LABS: Vancomycin Random 12.7 mcg/mL
[2019-05-28] MEDS: Heparin VIAL(*) 5000 UNITS/ML VIAL (FIVE THOUSAND) SUBCUT SCH ×3 (06:12→20:22)
[2019-05-28 06:16] LABS: Calcium 8.6 mg/dL (8.6-10.3)
[2019-05-28 06:21] LABS: Potassium 3.5 mmol/L (3.5-5.0)
[2019-05-28 06:22] LABS: BUN/Creatinine Ratio 5.2 (8-20); EGFR African American 16.4 (>60); EGFR Non-African American 13.6 (>60)
[2019-05-28] MEDS: ZOSYN 3.375 GM Q12H per EXTENDED INFUSION IVPB SCH ×4 (08:24→20:36)
[2019-05-28] MEDS: Lactobacillus Acidophilus* 1 TAB PO SCH ×2 (08:25→09:10)
[2019-05-28] MEDS: Sertraline* 50 MG TAB PO SCH (08:25)
[2019-05-28] MEDS: Pantoprazole TAB * 40 MG TAB PO SCH (08:25)
[2019-05-28] MEDS: busPIRone TAB* 5 MG PO SCH ×2 (08:26→20:19)
[2019-05-28] MEDS: Clopidogrel TAB* 75 MG PO SCH (08:26)
[2019-05-28] MEDS: Atorvastatin* 20 MG TAB PO SCH (08:26)
[2019-05-28] MEDS: guaiFENesin ER TAB 600 MG PO SCH ×2 (08:26→20:22)
[2019-05-28] MEDS: Calcium Acetate CAP* 667 MG PO SCH ×4 (08:26→17:19)
[2019-05-28] MEDS: Aspirin 81 mg CHEW TAB* 81 MG TAB.CHEW PO SCH (08:26)
[2019-05-28] MEDS: Aliskiren TAB* 300 MG PO SCH ×2 (08:26→08:36)
[2019-05-28] MEDS: amLODIPine TAB* 5 MG PO SCH (08:27)
[2019-05-28] MEDS: Carvedilol TAB* 25 MG PO SCH ×2 (08:27→21:13)
[2019-05-28] MEDS: Acetaminophen TAB* 325 MG PO PRN ×2 (09:56→20:57)
--- NOTE | 2019-05-28 10:49 | PN ---
Subjective Date of Service: 05/28/19 Interval History: PAtient seen and examined. Feeling well. OOB to chair. Off bipap since yesterday. Had overnight fever x1 which resolved. Denies fever or chills today. No acute SOB, no chest pain, no further complaints or events. Objective Active Medications: Acetaminophen (Tylenol Tab*) 650 mg PO Q4H PRN PRN Reason: BODY ACHES/PAIN Last Admin: 05/28/19 09:56 Dose: 650 mg Albuterol/Ipratropium (Duoneb (Albuterol 2.5 Mg/Ipratropium 0.5 Mg)) 1 neb INH Q4H PRN PRN Reason: SOB/WHEEZING Aliskiren (Tekturna Tab*) 300 mg PO QAM [facility] Last Admin: 05/28/19 08:36 Dose: Not Given Amlodipine Besylate (Norvasc Tab*) 5 mg PO DAILY [facility] Last Admin: 05/28/19 08:27 Dose: Not Given Aspirin (Aspirin 81 Mg Chew Tab*) 81 mg PO DAILY [facility] Last Admin: 05/28/19 08:26 Dose: 81 mg Atorvastatin Calcium (Lipitor*) 20 mg PO DAILY [facility] Last Admin: 05/28/19 08:26 Dose: 20 mg Buspirone HCl (Buspar Tab*) 5 mg PO BID [facility] Last Admin: 05/28/19 08:26 Dose: 5 mg Calcium Acetate (Phoslo Cap*) 1,334 mg PO TID [facility] Last Admin: 05/28/19 08:26 Dose: 1,334 mg Carvedilol (Coreg Tab*) 50 mg PO BID [facility] Last Admin: 05/28/19 08:27 Dose: Not Given Clopidogrel Bisulfate (Plavix Tab*) 75 mg PO DAILY [facility] Last Admin: 05/28/19 08:26 Dose: 75 mg Guaifenesin (Mucinex*) 600 mg PO BID [facility] Last Admin: 05/28/19 08:26 Dose: 600 mg Heparin Sodium (Porcine) (Heparin Vial(*)) 5,000 units SUBCUT Q8HR [facility] Last Admin: 05/28/19 06:12 Dose: 5,000 units Hydroxyzine HCl (Atarax Tab*) 10 mg PO Q8H PRN PRN Reason: ANXIETY Last Admin: 05/27/19 13:06 Dose: 10 mg Piperacillin Sod/Tazobactam (Sod 3.375 gm/ Sodium Chloride) 100 mls @ 25 mls/ hr IVPB Q12H [facility] Last Admin: 05/28/19 08:24 Dose: 25 mls/hr Lactobacillus Rhamnosus (Lactobacillus Acidophilus*) 1 tab PO DAILY [facility] Last Admin: 05/28/19 08:25 Dose: 1 tab Melatonin (Melatonin) 3 mg PO BEDTIME PRN PRN Reason: INSOMNIA Miscellaneous (Ativan Pyxis Rosen[place]) 1 ea N/A .ATIVAN IV ROSENBERG PRN PRN Reason: PYXIS ROSENBERG Ondansetron HCl (Zofran Inj*) 4 mg IV Q4H PRN PRN Reason: NAUSEA/VOMITING Pantoprazole Sodium (Protonix Tab*) 40 mg PO DAILY [facility] Last Admin: 05/28/19 08:25 Dose: 40 mg Pharmacy Consult (Zosyn Per Pharmacy*) 1 note FOLLOW UP . PRN PRN Reason: PER PROTOCOL Pharmacy Consult (Vancomycin - Dialysis Dosing*) 1 note FOLLOW UP . [facility] Sertraline HCl (Zoloft*) 50 mg PO DAILY [facility] Last Admin: 05/28/19 08:25 Dose: 50 mg Simethicone (Mylicon Tab*) 80 mg PO Q6H PRN PRN Reason: gas Sodium Chloride (Sodium Chloride 0.65% Nasal [place]*) 1 spray BOTH NARES Q2H PRN PRN Reason: DRY SKIN Vital Signs - 8 hr 05/28/19 05/28/19 05/28/19 03:00 03:30 03:56 Temperature 97.5 F Pulse Rate 56 58 Respiratory 13 15 Rate Blood Pressure 118/54 103/52 (mmHg) O2 Sat by Pulse 100 98 Oximetry 05/28/19 05/28/19 05/28/19 04:00 04:30 05:00 Temperature Pulse Rate 59 60 58 Respiratory 14 13 24 Rate Blood Pressure 96/50 105/62 99/55 (mmHg) O2 Sat by Pulse 98 98 97 Oximetry 05/28/19 05/28/19 05/28/19 05:30 06:00 06:30 Temperature Pulse Rate 59 63 59 Respiratory 19 21 17 Rate Blood Pressure 91/50 102/56 103/52 (mmHg) O2 Sat by Pulse 97 97 97 Oximetry 05/28/19 05/28/19 05/28/19 07:00 07:30 07:47 Temperature Pulse Rate 57 59 64 Respiratory 28 16 18 Rate Blood Pressure 109/57 120/57 (mmHg) O2 Sat by Pulse 96 98 99 Oximetry 05/28/19 05/28/19 05/28/19 08:00 08:24 09:00 Temperature 98.2 F Pulse Rate 58 66 70 Respiratory 19 20 25 Rate Blood Pressure 117/58 108/58 98/57 (mmHg) O2 Sat by Pulse 98 95 97 Oximetry 05/28/19 05/28/19 09:59 10:00 Temperature Pulse Rate 65 Respiratory 22 21 Rate Blood Pressure 102/53 (mmHg) O2 Sat by Pulse 97 Oximetry Oxygen Devices in Use Now: Nasal Cannula Appearance: alert, NAD Eyes: PERRLA Ears/Nose/Mouth/Throat: Mucous Membranes Moist Neck: NL Appearance and Movements; NL JVP Respiratory: Symmetrical Chest Expansion and Respiratory Effort, - - diminished throughout lung curry, rhonchi noted on right Abdominal: NL Sounds; No Tenderness; No Distention Extremities: No Clubbing, Cyanosis, - - bipedal edema improving, +2 non-pitting Skin: No Rash or Ulcers Neurological: Alert and Oriented x 3 Nutrition: Taking PO's Result Diagrams: 05/28/19 04:10 05/28/19 04:10 Microbiology and Other Data: Microbiology 05/27/19 08:22 Nasal Screen MRSA (PCR) - Final Nasal Mrsa Not Detected Diagnostic Imaging: Patient Name: EDWARDO GUILLEN Medical Record#: [id number] Ordering Physician: Danya Pizarro MD Acct.#: [id number] : 1960 Age: 58 Sex: F Location: EMERGENCY DEPARTMENT Exam Date: 05/27/19437 ADM Status: REG ER Order Information: CHEST AP OR PORT Accession Number: [id number] CPT: 63958 INDICATION: Shortness of breath. COMPARISON: Comparison is made with a prior chest x-ray study from April. TECHNIQUE: A portable view of the chest was obtained. FINDINGS: There is a central venous catheter entering on the right side. The catheter tip projects over the region of the right atrium. The heart is moderately enlarged. There are diffuse prominence of the interstitial markings and small to moderate size bilateral pleural effusions which appear unchanged most consistent with congestive heart failure. IMPRESSION: FINDINGS MOST CONSISTENT WITH CONGESTIVE HEART FAILURE, UNCHANGED. R0 Preliminary Imaging Read R0 <Electronically signed by Rell Baeza MD in OV> 05/27/19 0717 Assess/Plan/Problems-Billing Assessment: This is a 58 year old female with history of polycystic kidney disease/ESRD on hemodialysis, HTN, diastolic HF, depression, that presented to the ED with complaints of increasing SOB and respiratory distress. - Patient Problems (1) Acute hypercapnic respiratory failure Code(s): J96.02 - ACUTE RESPIRATORY FAILURE WITH HYPERCAPNIA SNOMED Code(s): 060535110 Comment: - 2/2 volume overload with mild encephalopathy prior to bipap - Mentation back to baseline after bipap and vapotherm prior to undergoing 3L ultrafiltration on HD yesterday; edema and respiratory status greatly improved today - Repeat ABG shows reduction in CO2 retention, remains on 3LNC today which is her baseline O2 requirement (2) Fever Code(s): R50.9 - FEVER, UNSPECIFIED SNOMED Code(s): 848723166 Comment: - Source unclear - Reportedly had "viral" illness at [facility] and was on Augmentin for one week prior to admission - CXR as above, no infiltrate or consolidation - Patient does not make urine - Follow blood cultures drawn last night, continue zosyn and vancomycin for now , recommend stopping atbx if patient remains afebrile and no source identified and blood cultures are negative (3) (HFpEF) heart failure with preserved ejection fraction Code(s): I50.30 - UNSPECIFIED DIASTOLIC (CONGESTIVE) HEART FAILURE SNOMED Code (s): 368371180 Comment: - CXR with pulmonary edema - Does not make urine, responded well to ultrafiltration yesterday - No chest pain (4) Depression Code(s): F32.9 - MAJOR DEPRESSIVE DISORDER, SINGLE EPISODE, UNSPECIFIED SNOMED Code(s): 89842701 Comment: - Continue Zoloft, buspar and atarax (5) End stage renal failure on dialysis Code(s): N18.6 - END STAGE RENAL DISEASE; Z99.2 - DEPENDENCE ON RENAL DIALYSIS SNOMED Code(s): 561506287 Comment: - On MWF HD schedule - Consult by nephrology appreciated (6) Rheumatoid arthritis Code(s): M06.9 - RHEUMATOID ARTHRITIS, UNSPECIFIED SNOMED Code(s): 12585394 Comment: - Longstanding chronic pain 2/2 RA - Currently controlled (7) HTN (hypertension) Code(s): I10 - ESSENTIAL (PRIMARY) HYPERTENSION SNOMED Code(s): 54518967 Comment: - BP accelerated yesterday even after dialysis but is more hypotensive today - Morning meds held, should be rechecked and given at lunchtime (amlodipine, aliskiren, carvedilol) (8) DVT prophylaxis Code(s): SJG7740 - SNOMED Code(s): 298666577 Comment: - HSQ, high risk while in ICU (9) Full code status Code(s): Z78.9 - OTHER SPECIFIED HEALTH STATUS SNOMED Code(s): 365928964 Comment: - Patient was DNR/DNI when she arrived but today, decided to change her wishes and elects to be Full Code with trial of Intubation - MOLST updated to reflect patient's wishes Status and Disposition: Inpatient. Status: Progressing/Improving. Stable for downgrade from ICU today to telemetry floor.
[2019-05-28] MEDS ORDERED: Vancomycin - DIALYSIS DOSING* NOTE FOLLOW UP SCH (11:00)
[2019-05-28] MEDS: hydrOXYzine HCL TAB* 10 MG PO PRN (14:16)
--- NOTE | 2019-05-28 15:14 | PN ---
Progress Note - Progress Note Date of Service: 05/28/19 Note: Nephrology Follow Up Note Performed by Dr. Arnoldo Tirado, [facility] Nephrology 05/28/2019 ESRD on HD, MWF 2nd shift. Last HD Yesterday Admitted with Acute Pulmonary Edema, s/p HD with 3L UF. BP was 170-180 before & during HD and right after HD BP was 140s. Late last night BP dropped 90-110, remained like that since the. She was in MICU in the AM and now transferred to 4t Floor. She's doing relatively well, and breathing is significantly better and edema is almost gone, with new skin wrinkling in LE. [facility] Meds: Acetaminophen (Tylenol Tab*) 650 mg PO Q4H PRN PRN Reason: BODY ACHES/PAIN Last Admin: 05/28/19 09:56 Dose: 650 mg Albuterol/Ipratropium (Duoneb (Albuterol 2.5 Mg/Ipratropium 0.5 Mg)) 1 neb INH Q4H PRN PRN Reason: SOB/WHEEZING Aliskiren (Tekturna Tab*) 300 mg PO QAM [facility] Last Admin: 05/28/19 08:36 Dose: Not Given Amlodipine Besylate (Norvasc Tab*) 5 mg PO DAILY [facility] Last Admin: 05/28/19 08:27 Dose: Not Given Aspirin (Aspirin 81 Mg Chew Tab*) 81 mg PO DAILY [facility] Last Admin: 05/28/19 08:26 Dose: 81 mg Atorvastatin Calcium (Lipitor*) 20 mg PO DAILY [facility] Last Admin: 05/28/19 08:26 Dose: 20 mg Buspirone HCl (Buspar Tab*) 5 mg PO BID [facility] Last Admin: 05/28/19 08:26 Dose: 5 mg Calcium Acetate (Phoslo Cap*) 1,334 mg PO TID WITH MEALS [facility] Carvedilol (Coreg Tab*) 50 mg PO BID [facility] Last Admin: 05/28/19 08:27 Dose: Not Given Clopidogrel Bisulfate (Plavix Tab*) 75 mg PO DAILY [facility] Last Admin: 05/28/19 08:26 Dose: 75 mg Guaifenesin (Mucinex*) 600 mg PO BID [facility] Last Admin: 05/28/19 08:26 Dose: 600 mg Heparin Sodium (Porcine) (Heparin Vial(*)) 5,000 units SUBCUT Q8HR [facility] Last Admin: 05/28/19 14:17 Dose: 5,000 units Hydroxyzine HCl (Atarax Tab*) 10 mg PO Q8H PRN PRN Reason: ANXIETY Last Admin: 05/28/19 14:16 Dose: 10 mg Piperacillin Sod/Tazobactam (Sod 3.375 gm/ Sodium Chloride) 100 mls @ 25 mls/ hr IVPB Q12H [facility] Last Admin: 05/28/19 08:24 Dose: 25 mls/hr Vancomycin HCl 1,000 mg/ (Sodium Chloride) 250 mls @ 166.667 mls/hr IV 1800 ONE Stop: 05/29/19 19:29 Lactobacillus Rhamnosus (Lactobacillus Acidophilus*) 1 tab PO DAILY [facility] Last Admin: 05/28/19 09:10 Dose: 1 tab Melatonin (Melatonin) 3 mg PO BEDTIME PRN PRN Reason: INSOMNIA Miscellaneous (Ativan Pyxis [place]) 1 ea N/A .ATIVAN IV [place]LER PRN PRN Reason: PYXIS BUTLER Ondansetron HCl (Zofran Inj*) 4 mg IV Q4H PRN PRN Reason: NAUSEA/VOMITING Pantoprazole Sodium (Protonix Tab*) 40 mg PO DAILY [facility] Last Admin: 05/28/19 08:25 Dose: 40 mg Pharmacy Consult (Zosyn Per Pharmacy*) 1 note FOLLOW UP . PRN PRN Reason: PER PROTOCOL Pharmacy Consult (Vancomycin - Dialysis Dosing*) 1 note FOLLOW UP . [facility] Sertraline HCl (Zoloft*) 50 mg PO DAILY [facility] Last Admin: 05/28/19 08:25 Dose: 50 mg Simethicone (Mylicon Tab*) 80 mg PO Q6H PRN PRN Reason: gas Sodium Chloride (Sodium Chloride 0.65% Nasal [place]*) 1 spray BOTH NARES Q2H PRN PRN Reason: DRY SKIN Objective: Temp Pulse Resp BP Pulse Ox 97.5 F 63 22 112/42 98 05/28/19 14:32 05/28/19 14:32 05/28/19 14:33 05/28/19 14:32 05/28/19 14:32 10 Point multi system exam: Constitutional Alert Oriented x 3 HEENT: No Conjunctivitis Abdomen Soft Abdomen No Ascites Heart: NSR, No LE Edema, No murmur Lungs: Improved breath sounds Extremities: No edema, no rash Skin no rash Neurology No deficit. CN intact Hem/Lymph: no palpable lymph nodes Musculoskeletal: No joint swelling Laboratory Reviewed ABG pH 7.45 (7.35-7.45) 05/27/19 14:20 ABG HCO3 25.5 mmol/L (19-31) 05/27/19 14:20 Sodium 136 mmol/L (135-145) 05/28/19 04:10 Potassium 3.5 mmol/L (3.5-5.0) 05/28/19 04:10 BUN 18 mg/dL (6-24) 05/28/19 04:10 Creatinine 3.46 mg/dL (0.51-0.95) H 05/28/19 04:10 Calcium 8.6 mg/dL (8.6-10.3) 05/28/19 04:10 AST 15 U/L (13-39) 05/27/19 04:48 ALT 14 U/L (7-52) 05/27/19 04:48 Assessment and Plan: *ESRD, on HD MWF. *Fluid overload: Resolved. *HD tomorrow. *Electrolytes Ok *BP dropped, may need to cut down on he BP meds upon discharge! She was informed about lab/radiology results & prognosis. All questions were answered. She was made part of the treatment plan.
[2019-05-28 15:35] LABS: Influenza A Molecular NEGATIVE (Negative); Influenza B Molecular NEGATIVE (Negative)
[2019-05-28] MEDS: Melatonin 3 MG TAB PO PRN (20:34)
[2019-05-29] MEDS: hydrOXYzine HCL TAB* 10 MG PO PRN (00:26)
[2019-05-29] MEDS: Saline NASAL SPRAY 0.65%* BTL BOTH NARES PRN (00:31)
[2019-05-29] MEDS ORDERED: ALPRAZolam TAB* 0.25 MG PO ONE (04:04)
[2019-05-29] MEDS: Benzonatate CAP* 100 MG PO PRN (04:18)
[2019-05-29] MEDS: Heparin VIAL(*) 5000 UNITS/ML VIAL (FIVE THOUSAND) SUBCUT SCH ×4 (05:54→21:42)
[2019-05-29 06:47] LABS: ABS Eosinophils 0.2 10^3/ul (0-0.6); ABS Lymphocytes 0.8 10^3/ul (1.0-4.8); ABS Monocytes 0.9 10^3/ul (0-0.8); ABS Neutrophils 8.1 10^3/ul (1.5-7.7); Eosinophil % 2.5 %; Hematocrit 26 % (35-47); Hemoglobin 8.9 g/dL (12.0-16.0); Lymphocyte % 7.8 %; Mean Corpuscular HGB Conc 34 g/dL (31-36); Mean Corpuscular Hemoglobin 32 pg (27-31); Mean Corpuscular Volume 95 fL (80-97); Nucleated Red Blood Cells % 0.1; Platelet Count 215 10^3/uL (150-450); Red Blood Count 2.77 10^6 /uL (3.70-4.87); Red Cell Distribution Width 15 % (10-15); White Blood Count 10.1 10^3/uL (3.5-10.8)
[2019-05-29 07:11] LABS: Calcium 9.1 mg/dL (8.6-10.3); EGFR African American 11.6 (>60); EGFR Non-African American 9.5 (>60); Potassium 3.4 mmol/L (3.5-5.0)
[2019-05-29] MEDS: Clopidogrel TAB* 75 MG PO SCH (08:22)
[2019-05-29] MEDS: amLODIPine TAB* 5 MG PO SCH (08:22)
[2019-05-29] MEDS: Calcium Acetate CAP* 667 MG PO SCH ×3 (08:22→18:22)
[2019-05-29] MEDS: busPIRone TAB* 5 MG PO SCH ×2 (08:22→21:39)
[2019-05-29] MEDS: Lactobacillus Acidophilus* 1 TAB PO SCH (08:22)
[2019-05-29] MEDS: Atorvastatin* 20 MG TAB PO SCH (08:23)
[2019-05-29] MEDS: Pantoprazole TAB * 40 MG TAB PO SCH (08:23)
[2019-05-29] MEDS: ZOSYN 3.375 GM Q12H per EXTENDED INFUSION IVPB SCH ×2 (08:23)
[2019-05-29] MEDS: guaiFENesin ER TAB 600 MG PO SCH ×2 (08:23→21:39)
[2019-05-29] MEDS: Sertraline* 50 MG TAB PO SCH (08:23)
[2019-05-29] MEDS: Carvedilol TAB* 25 MG PO SCH ×2 (08:23→21:38)
[2019-05-29] MEDS: Aspirin 81 mg CHEW TAB* 81 MG TAB.CHEW PO SCH (08:23)
[2019-05-29] MEDS: Aliskiren TAB* 300 MG PO SCH (08:46)
[2019-05-29] MEDS ORDERED: Heparin DIALYSIS ONLY(*) 1,000 UNITS/ML VIAL DIALYSIS ONE (11:00)
--- NOTE | 2019-05-29 11:54 | PN ---
Progress Note - Progress Note Date of Service: 05/29/19 Note: Inpatient Acute Dialysis Note Performed by Dr. Arnoldo Tirado, [facility] Nephrology 05/29/2019 ESRD on HD MWF Pulmonary edema, recovered. She was seen and examined on HD for ESRD. No complaint. Had low BP yesterday, s/p 3L UF 05/27. Now no SOB, feels well, has excessive upper airway secretions BP stable & Better HD Routine: MWF HD Duration: 3.0 Hr UF Goal: 1 L/Rx Vitals: BP: 110/85. HR: 75/m Blood Flow: 400 cc/min Dialysate Flow: 600 cc/min Bath: K: 3K Ca: 2.5Ca Na: 138 Hco3: 35 Temp: 36 C Dialyzer: Revaclear 300 Access: Rt IJ TDC Heparin 2000 Bolus and 1000 maintenance Meds with HD: None Tolerates HD well. No Intradialytic Hypotension.
--- NOTE | 2019-05-29 13:16 | PN ---
Subjective Date of Service: 05/29/19 Interval History: Pt is seen at , doing well, denies pain , or SOB. Uses 02 at 3l at [facility] Objective Active Medications: Acetaminophen (Tylenol Tab*) 650 mg PO Q4H PRN PRN Reason: BODY ACHES/PAIN Last Admin: 05/28/19 20:57 Dose: 650 mg Albuterol/Ipratropium (Duoneb (Albuterol 2.5 Mg/Ipratropium 0.5 Mg)) 1 neb INH Q4H PRN PRN Reason: SOB/WHEEZING Aliskiren (Tekturna Tab*) 300 mg PO QAM [facility] Last Admin: 05/29/19 08:46 Dose: 300 mg Amlodipine Besylate (Norvasc Tab*) 5 mg PO DAILY [facility] Last Admin: 05/29/19 08:22 Dose: 5 mg Aspirin (Aspirin 81 Mg Chew Tab*) 81 mg PO DAILY [facility] Last Admin: 05/29/19 08:23 Dose: 81 mg Atorvastatin Calcium (Lipitor*) 20 mg PO DAILY [facility] Last Admin: 05/29/19 08:23 Dose: 20 mg Benzonatate (Tessalon Cap*) 100 mg PO BID PRN PRN Reason: COUGH Last Admin: 05/29/19 04:18 Dose: 100 mg Buspirone HCl (Buspar Tab*) 5 mg PO BID [facility] Last Admin: 05/29/19 08:22 Dose: 5 mg Calcium Acetate (Phoslo Cap*) 1,334 mg PO TID WITH MEALS [facility] Last Admin: 05/29/19 08:22 Dose: 1,334 mg Carvedilol (Coreg Tab*) 50 mg PO BID [facility] Last Admin: 05/29/19 08:23 Dose: 50 mg Clopidogrel Bisulfate (Plavix Tab*) 75 mg PO DAILY [facility] Last Admin: 05/29/19 08:22 Dose: 75 mg Guaifenesin (Mucinex*) 600 mg PO BID [facility] Last Admin: 05/29/19 08:23 Dose: 600 mg Heparin Sodium (Porcine) (Heparin Vial(*)) 5,000 units SUBCUT Q8HR [facility] Last Admin: 05/29/19 05:54 Dose: 5,000 units Hydroxyzine HCl (Atarax Tab*) 10 mg PO Q8H PRN PRN Reason: ANXIETY Last Admin: 05/29/19 00:26 Dose: 10 mg Piperacillin Sod/Tazobactam (Sod 3.375 gm/ Sodium Chloride) 100 mls @ 25 mls/ hr IVPB Q12H [facility] Last Admin: 05/29/19 08:23 Dose: 25 mls/hr Vancomycin HCl 1,000 mg/ (Sodium Chloride) 250 mls @ 166.667 mls/hr IV 1800 ONE Stop: 05/29/19 19:29 Lactobacillus Rhamnosus (Lactobacillus Acidophilus*) 1 tab PO DAILY [facility] Last Admin: 05/29/19 08:22 Dose: 1 tab Melatonin (Melatonin) 3 mg PO BEDTIME PRN PRN Reason: INSOMNIA Last Admin: 05/28/19 20:34 Dose: 3 mg Miscellaneous (Ativan Pyxis [place]) 1 ea N/A .ATIVAN IV ROSENBERG PRN PRN Reason: PYXIS ROSENBERG Ondansetron HCl (Zofran Inj*) 4 mg IV Q4H PRN PRN Reason: NAUSEA/VOMITING Pantoprazole Sodium (Protonix Tab*) 40 mg PO DAILY [facility] Last Admin: 05/29/19 08:23 Dose: 40 mg Pharmacy Consult (Zosyn Per Pharmacy*) 1 note FOLLOW UP . PRN PRN Reason: PER PROTOCOL Pharmacy Consult (Vancomycin - Dialysis Dosing*) 1 note FOLLOW UP . [facility] Sertraline HCl (Zoloft*) 50 mg PO DAILY [facility] Last Admin: 05/29/19 08:23 Dose: 50 mg Simethicone (Mylicon Tab*) 80 mg PO Q6H PRN PRN Reason: gas Sodium Chloride (Sodium Chloride 0.65% Nasal [place]*) 1 spray BOTH NARES Q2H PRN PRN Reason: DRY SKIN Last Admin: 05/29/19 00:31 Dose: 1 spray Vital Signs - 8 hr 05/29/19 05/29/19 06:20 07:15 Temperature 98.4 F Pulse Rate 73 Respiratory 19 24 Rate Blood Pressure 134/54 (mmHg) O2 Sat by Pulse 95 Oximetry Oxygen Devices in Use Now: Nasal Cannula Appearance: 58 yo f in nAD, aAOx3 Eyes: No Scleral Icterus, PERRLA Ears/Nose/Mouth/Throat: NL Teeth, Lips, Gums, Mucous Membranes Moist Neck: NL Appearance and Movements; NL JVP, Trachea Midline Respiratory: Symmetrical Chest Expansion and Respiratory Effort, - - crackles at RLL Cardiovascular: NL Sounds; No Murmurs; No JVD, RRR Abdominal: NL Sounds; No Tenderness; No Distention Lymphatic: No Cervical Adenopathy Extremities: No Clubbing, Cyanosis, - - trace pedal edema b/l Skin: - - R tunneled IJ dialysis cath present Neurological: Alert and Oriented x 3, NL Muscle Strength and Tone Result Diagrams: 05/29/19 06:00 05/29/19 06:00 Microbiology and Other Data: Microbiology 05/27/19 08:22 Nasal Screen MRSA (PCR) - Final Nasal Mrsa Not Detected Diagnostic Imaging: Patient Name: EDWARDO GUILLEN Medical Record#: [id number] Ordering Physician: Danya Pizarro MD Acct.#: [id number] : 1960 Age: 58 Sex: F Location: EMERGENCY DEPARTMENT Exam Date: 05/27/19437 ADM Status: REG ER Order Information: CHEST AP OR PORT Accession Number: [id number] CPT: 54061 INDICATION: Shortness of breath. COMPARISON: Comparison is made with a prior chest x-ray study from April. TECHNIQUE: A portable view of the chest was obtained. FINDINGS: There is a central venous catheter entering on the right side. The catheter tip projects over the region of the right atrium. The heart is moderately enlarged. There are diffuse prominence of the interstitial markings and small to moderate size bilateral pleural effusions which appear unchanged most consistent with congestive heart failure. IMPRESSION: FINDINGS MOST CONSISTENT WITH CONGESTIVE HEART FAILURE, UNCHANGED. R0 Preliminary Imaging Read R0 <Electronically signed by Rell Baeza MD in OV> 05/27/19 2158 Assess/Plan/Problems-Billing Assessment: This is a 58 year old female with history of polycystic kidney disease/ESRD on hemodialysis, HTN, diastolic HF, depression, that presented to the ED with complaints of increasing SOB and respiratory distress. - Patient Problems (1) Fever Comment: - Source unclear - Reportedly had "viral" illness at [facility] and was on Augmentin for one week prior to admission - CXR no infiltrate or consolidation - Patient does not make urine - blood cultures NTD-d/c zosyn and vancomycin (2) (HFpEF) heart failure with preserved ejection fraction Comment: - pulmonary edema from admission resolved - Does not make urine, responded well to HD - No chest pain (3) Acute hypercapnic respiratory failure Comment: - 2/2 volume overload with mild encephalopathy prior to bipap - Mentation back to baseline after bipap and vapotherm in ICU. -back to baseline 3 L 02 (4) Rheumatoid arthritis Comment: - Longstanding chronic pain 2/2 RA - Currently controlled (5) ESRD (end stage renal disease) Comment: HD today (6) HTN (hypertension) Comment: controlled on home meds (7) DVT prophylaxis Comment: - HSQ Status and Disposition: Inpatient. Status: Progressing/Improving. Likely d/c back to [facility] tomorrow
[2019-05-29] MEDS ORDERED: Vancomycin(*) 1,000 MG in NS 0.9% 250 ML* 250 ML IV ONE (18:00)
[2019-05-29] MEDS: Acetaminophen TAB* 325 MG PO PRN (18:45)
[2019-05-30] MEDS: Acetaminophen TAB* 325 MG PO PRN ×2 (00:25→23:00)
[2019-05-30] MEDS: Benzonatate CAP* 100 MG PO PRN ×2 (00:25→17:11)
[2019-05-30] MEDS: hydrOXYzine HCL TAB* 10 MG PO PRN (00:26)
[2019-05-30] MEDS: Heparin VIAL(*) 5000 UNITS/ML VIAL (FIVE THOUSAND) SUBCUT SCH ×3 (05:11→20:12)
[2019-05-30 06:47] LABS: ABS Eosinophils 0.3 10^3/ul (0-0.6); ABS Lymphocytes 0.8 10^3/ul (1.0-4.8); ABS Monocytes 0.6 10^3/ul (0-0.8); ABS Neutrophils 6.8 10^3/ul (1.5-7.7); Eosinophil % 3.5 %; Hematocrit 27 % (35-47); Hemoglobin 9.4 g/dL (12.0-16.0); Lymphocyte % 9.6 %; Mean Corpuscular HGB Conc 35 g/dL (31-36); Mean Corpuscular Hemoglobin 33 pg (27-31); Mean Corpuscular Volume 96 fL (80-97); Mean Platelet Volume 7.8 fL (7.4-10.4); Platelet Count 236 10^3/uL (150-450); Red Blood Count 2.83 10^6 /uL (3.70-4.87); Red Cell Distribution Width 15 % (10-15); White Blood Count 8.6 10^3/uL (3.5-10.8)
[2019-05-30 06:54] LABS: BUN/Creatinine Ratio 4.6 (8-20); Calcium 9.2 mg/dL (8.6-10.3); EGFR African American 19.2 (>60); EGFR Non-African American 15.8 (>60); Potassium 3.6 mmol/L (3.5-5.0)
[2019-05-30] MEDS: amLODIPine TAB* 5 MG PO SCH (08:49)
[2019-05-30] MEDS: Pantoprazole TAB * 40 MG TAB PO SCH (08:49)
[2019-05-30] MEDS: Clopidogrel TAB* 75 MG PO SCH (08:49)
[2019-05-30] MEDS: Aspirin 81 mg CHEW TAB* 81 MG TAB.CHEW PO SCH (08:49)
[2019-05-30] MEDS: Lactobacillus Acidophilus* 1 TAB PO SCH (08:49)
[2019-05-30] MEDS: busPIRone TAB* 5 MG PO SCH ×2 (08:50→20:03)
[2019-05-30] MEDS: Carvedilol TAB* 25 MG PO SCH ×2 (08:50→20:03)
[2019-05-30] MEDS: Calcium Acetate CAP* 667 MG PO SCH ×4 (08:50→17:11)
[2019-05-30] MEDS: Sertraline* 50 MG TAB PO SCH (08:50)
[2019-05-30] MEDS: guaiFENesin ER TAB 600 MG PO SCH ×2 (08:50→20:03)
[2019-05-30] MEDS: Atorvastatin* 20 MG TAB PO SCH (08:50)
[2019-05-30] MEDS: Aliskiren TAB* 300 MG PO SCH (09:00)
--- NOTE | 2019-05-30 09:37 | PN ---
Subjective Date of Service: 05/30/19 Interval History: pt is not feeling "too well", more SOB and nonproductive cough. RN noted tachypnea sand crackles Objective Active Medications: Acetaminophen (Tylenol Tab*) 650 mg PO Q4H PRN PRN Reason: BODY ACHES/PAIN Last Admin: 05/30/19 00:25 Dose: 650 mg Albuterol/Ipratropium (Duoneb (Albuterol 2.5 Mg/Ipratropium 0.5 Mg)) 1 neb INH Q4H PRN PRN Reason: SOB/WHEEZING Albuterol/Ipratropium (Duoneb (Albuterol 2.5 Mg/Ipratropium 0.5 Mg)) 1 neb INH [id number] AWAKE [facility] Aliskiren (Tekturna Tab*) 300 mg PO QAM [facility] Last Admin: 05/30/19 09:00 Dose: 300 mg Amlodipine Besylate (Norvasc Tab*) 5 mg PO DAILY [facility] Last Admin: 05/30/19 08:49 Dose: 5 mg Aspirin (Aspirin 81 Mg Chew Tab*) 81 mg PO DAILY [facility] Last Admin: 05/30/19 08:49 Dose: 81 mg Atorvastatin Calcium (Lipitor*) 20 mg PO DAILY [facility] Last Admin: 05/30/19 08:50 Dose: 20 mg Benzonatate (Tessalon Cap*) 100 mg PO BID PRN PRN Reason: COUGH Last Admin: 05/30/19 00:25 Dose: 100 mg Buspirone HCl (Buspar Tab*) 5 mg PO BID [facility] Last Admin: 05/30/19 08:50 Dose: 5 mg Calcium Acetate (Phoslo Cap*) 1,334 mg PO TID WITH MEALS [facility] Last Admin: 05/30/19 08:50 Dose: 1,334 mg Carvedilol (Coreg Tab*) 50 mg PO BID [facility] Last Admin: 05/30/19 08:50 Dose: 50 mg Clopidogrel Bisulfate (Plavix Tab*) 75 mg PO DAILY [facility] Last Admin: 05/30/19 08:49 Dose: 75 mg Guaifenesin (Mucinex*) 600 mg PO BID [facility] Last Admin: 05/30/19 08:50 Dose: 600 mg Heparin Sodium (Porcine) (Heparin Vial(*)) 5,000 units SUBCUT Q8HR [facility] Last Admin: 05/30/19 05:11 Dose: 5,000 units Ceftriaxone Sodium 1 gm/ (Sodium Chloride) 50 mls @ 100 mls/hr IVPB Q24H [facility] Azithromycin (Zithromax 500 Mg/250 Ml) 500 mg in 250 mls @ 250 mls/hr IVPB Q24H [facility] Lactobacillus Rhamnosus (Lactobacillus Acidophilus*) 1 tab PO DAILY [facility] Last Admin: 05/30/19 08:49 Dose: 1 tab Melatonin (Melatonin) 3 mg PO BEDTIME PRN PRN Reason: INSOMNIA Last Admin: 05/28/19 20:34 Dose: 3 mg Miscellaneous (Ativan Pyxis [place]) 1 ea N/A .ATIVAN IV ROSENBERG PRN PRN Reason: PYXIS ROSENBERG Ondansetron HCl (Zofran Inj*) 4 mg IV Q4H PRN PRN Reason: NAUSEA/VOMITING Pantoprazole Sodium (Protonix Tab*) 40 mg PO DAILY [facility] Last Admin: 05/30/19 08:49 Dose: 40 mg Sertraline HCl (Zoloft*) 50 mg PO DAILY [facility] Last Admin: 05/30/19 08:50 Dose: 50 mg Simethicone (Mylicon Tab*) 80 mg PO Q6H PRN PRN Reason: gas Sodium Chloride (Sodium Chloride 0.65% Nasal [place]*) 1 spray BOTH NARES Q2H PRN PRN Reason: DRY SKIN Last Admin: 05/29/19 00:31 Dose: 1 spray Vital Signs - 8 hr 05/30/19 05/30/19 05/30/19 02:27 03:15 05:36 Temperature 97.8 F Pulse Rate 63 65 Respiratory 22 20 20 Rate Blood Pressure 155/64 (mmHg) O2 Sat by Pulse 97 93 97 Oximetry 05/30/19 07:55 Temperature Pulse Rate Respiratory 24 Rate Blood Pressure (mmHg) O2 Sat by Pulse Oximetry Oxygen Devices in Use Now: Nasal Cannula Appearance: 58 yo F in nAD, AAOx3, appears tired and mildly tachypneic Eyes: No Scleral Icterus, PERRLA Ears/Nose/Mouth/Throat: NL Teeth, Lips, Gums, Mucous Membranes Moist Neck: NL Appearance and Movements; NL JVP, Trachea Midline Respiratory: Symmetrical Chest Expansion and Respiratory Effort, - - crackles at rales b/l bases, rales mid lungs b/l Cardiovascular: NL Sounds; No Murmurs; No JVD, RRR Abdominal: NL Sounds; No Tenderness; No Distention, No Hepatosplenomegaly Lymphatic: No Cervical Adenopathy Extremities: No Clubbing, Cyanosis, - - trace pedal edema b/l Skin: No Rash or Ulcers, No Nodules or Sclerosis Neurological: Alert and Oriented x 3, NL Muscle Strength and Tone Result Diagrams: 05/30/19 06:06 05/30/19 06:06 Microbiology and Other Data: Microbiology 05/27/19 08:22 Nasal Screen MRSA (PCR) - Final Nasal Mrsa Not Detected Diagnostic Imaging: Patient Name: EDWARDO GUILLEN Medical Record#: [id number] Ordering Physician: Danya Pizarro MD Acct.#: [id number] : 1960 Age: 58 Sex: F Location: EMERGENCY DEPARTMENT Exam Date: 05/27/19437 ADM Status: REG ER Order Information: CHEST AP OR PORT Accession Number: [id number] CPT: 67739 INDICATION: Shortness of breath. COMPARISON: Comparison is made with a prior chest x-ray study from April. TECHNIQUE: A portable view of the chest was obtained. FINDINGS: There is a central venous catheter entering on the right side. The catheter tip projects over the region of the right atrium. The heart is moderately enlarged. There are diffuse prominence of the interstitial markings and small to moderate size bilateral pleural effusions which appear unchanged most consistent with congestive heart failure. IMPRESSION: FINDINGS MOST CONSISTENT WITH CONGESTIVE HEART FAILURE, UNCHANGED. R0 Preliminary Imaging Read R0 <Electronically signed by Rell Baeza MD in OV> 05/27/19 3897 Assess/Plan/Problems-Billing Assessment: This is a 58 year old female with history of polycystic kidney disease/ESRD on hemodialysis, HTN, diastolic HF, depression, that presented to the ED with complaints of increasing SOB and respiratory distress. - Patient Problems (1) Fever Comment: - Source unclear - Reportedly had "viral" illness at [facility] and was on Augmentin for one week prior to admission - CXR no infiltrate or consolidation, pt was on Vancomycin and zosyn , stopped x one day on 05/29/19 and developred worsening respiratory symptoms. Will place her back on antibiotics. Start Ceftriaxone /Azithro on 05/30/19 - Patient does not make urine - blood cultures NTD (2) (HFpEF) heart failure with preserved ejection fraction Comment: - pulmonary edema from admission appears to be reccuring, although it is uncertain if is purely related to volume or there is a component of ongoing pulmonary infection - Does not make urine (3) Acute hypercapnic respiratory failure Comment: - 2/2 volume overload with mild encephalopathy prior to bipap - Mentation back to baseline after bipap and vapotherm in ICU. -back to baseline 3-4 L 02 -but today breathing more laboured:restarting antibiotics, will talk with nephrology and start nebs GUY (4) Rheumatoid arthritis Comment: - Longstanding chronic pain 2/2 RA - Currently controlled (5) ESRD (end stage renal disease) Comment: HD last on 05/29/19 (6) HTN (hypertension) Comment: controlled on home meds (7) Anemia Comment: - HH slightly lover than baseline likely due to critical illness and multiple blood draws -no evidence of acute bleed - Secondary to Chronic disease/ESRD - Continue supportive care (8) Anxiety Comment: controlled (9) DVT prophylaxis Comment: - HSQ Status and Disposition: Inpatient. Status: Progressing/Improving.
[2019-05-30] MEDS ORDERED: cefTRIAXone(*) 1 GM in NS 0.9% 50 ML* 50 ML IVPB SCH (10:00)
[2019-05-30] MEDS ORDERED: Azithromycin 500 mg/250 ml NS 500 MG/250 ML BAG IVPB SCH (11:00)
[2019-05-30] MEDS: Ondansetron INJ* 2 MG/ML VIAL IV PRN (11:54)
[2019-05-30] MEDS: Albuterol/Ipratropium NEB.SOL* Albuterol 2.5 MG/Ipratropium 0.5 MG 3 ML INH SCH ×3 (14:04→19:35)
[2019-05-30] MEDS: Albuterol/Ipratropium NEB.SOL* Albuterol 2.5 MG/Ipratropium 0.5 MG 3 ML INH PRN (15:50)
[2019-05-30] MEDS: Melatonin 3 MG TAB PO PRN (23:00)
[2019-05-31] MEDS ORDERED: ALPRAZolam TAB* 0.25 MG PO PRN (00:59)
[2019-05-31] MEDS: Heparin VIAL(*) 5000 UNITS/ML VIAL (FIVE THOUSAND) SUBCUT SCH ×4 (06:11→21:14)
[2019-05-31 06:23] LABS: BUN/Creatinine Ratio 5.6 (8-20); EGFR African American 13.4 (>60); EGFR Non-African American 11.1 (>60); Potassium 3.9 mmol/L (3.5-5.0)
[2019-05-31 06:24] LABS: Hematocrit 28 % (35-47); Hemoglobin 9.1 g/dL (12.0-16.0); Mean Corpuscular HGB Conc 33 g/dL (31-36); Mean Corpuscular Hemoglobin 32 pg (27-31); Mean Corpuscular Volume 97 fL (80-97); Platelet Count 256 10^3/uL (150-450); Red Blood Count 2.86 10^6 /uL (3.70-4.87); Red Cell Distribution Width 15 % (10-15); White Blood Count 9.2 10^3/uL (3.5-10.8)
[2019-05-31] MEDS ORDERED: Piperacillin/Tazobac ADVAN(*) 3.375 GM in NS 0.9% 100 ML* 100 ML IVPB ONE (09:37)
--- NOTE | 2019-05-31 09:47 | PN ---
Subjective Date of Service: 05/31/19 Interval History: Pr appears very tired, but wakes up to voice. refused food today. C/o SOB, denies CP Objective Active Medications: Acetaminophen (Tylenol Tab*) 650 mg PO Q4H PRN PRN Reason: BODY ACHES/PAIN Last Admin: 05/30/19 23:00 Dose: 650 mg Albuterol/Ipratropium (Duoneb (Albuterol 2.5 Mg/Ipratropium 0.5 Mg)) 1 neb INH Q4H PRN PRN Reason: SOB/WHEEZING Last Admin: 05/30/19 15:50 Dose: 1 neb Aliskiren (Tekturna Tab*) 300 mg PO QAM [facility] Last Admin: 05/30/19 09:00 Dose: 300 mg Alprazolam (Xanax Tab*) 0.25 mg PO DAILY PRN PRN Reason: ANXIETY Last Admin: 05/31/19 01:08 Dose: 0.25 mg Amlodipine Besylate (Norvasc Tab*) 5 mg PO DAILY [facility] Last Admin: 05/30/19 08:49 Dose: 5 mg Aspirin (Aspirin 81 Mg Chew Tab*) 81 mg PO DAILY [facility] Last Admin: 05/30/19 08:49 Dose: 81 mg Atorvastatin Calcium (Lipitor*) 20 mg PO DAILY [facility] Last Admin: 05/30/19 08:50 Dose: 20 mg Benzonatate (Tessalon Cap*) 100 mg PO BID PRN PRN Reason: COUGH Last Admin: 05/30/19 17:11 Dose: 100 mg Buspirone HCl (Buspar Tab*) 5 mg PO BID [facility] Last Admin: 05/30/19 20:03 Dose: 5 mg Calcium Acetate (Phoslo Cap*) 1,334 mg PO TID WITH MEALS [facility] Last Admin: 05/30/19 17:11 Dose: 1,334 mg Carvedilol (Coreg Tab*) 50 mg PO BID [facility] Last Admin: 05/30/19 20:03 Dose: 50 mg Clopidogrel Bisulfate (Plavix Tab*) 75 mg PO DAILY [facility] Last Admin: 05/30/19 08:49 Dose: 75 mg Guaifenesin (Mucinex*) 600 mg PO BID [facility] Last Admin: 05/30/19 20:03 Dose: 600 mg Heparin Sodium (Porcine) (Heparin Vial(*)) 5,000 units SUBCUT Q8HR [facility] Last Admin: 05/31/19 06:11 Dose: 5,000 units Vancomycin HCl 1,000 mg/ (Sodium Chloride) 250 mls @ 166.667 mls/hr IVPB ONCE ONE; Protocol Stop: 05/31/19 11:07 Piperacillin Sod/Tazobactam (Sod 3.375 gm/ Sodium Chloride) 100 mls @ 200 mls/ hr IVPB ONCE ONE Stop: 05/31/19 10:06 Lactobacillus Rhamnosus (Lactobacillus Acidophilus*) 1 tab PO DAILY [facility] Last Admin: 05/30/19 08:49 Dose: 1 tab Melatonin (Melatonin) 3 mg PO BEDTIME PRN PRN Reason: INSOMNIA Last Admin: 05/30/19 23:00 Dose: 3 mg Miscellaneous (Ativan Pyxis Rosenberg) 1 ea N/A .ATIVAN IV ROSENBERG PRN PRN Reason: PYXIS ROSENBERG Ondansetron HCl (Zofran Inj*) 4 mg IV Q4H PRN PRN Reason: NAUSEA/VOMITING Last Admin: 05/30/19 11:54 Dose: 4 mg Pantoprazole Sodium (Protonix Tab*) 40 mg PO DAILY [facility] Last Admin: 05/30/19 08:49 Dose: 40 mg Pharmacy Consult (Vancomycin Per Pharmacy*) 1 note FOLLOW UP .VANC PER PHARMACY [facility]; Protocol Pharmacy Consult (Zosyn Per Pharmacy*) 1 note FOLLOW UP .ZOSYN PER PHARMACY [facility] Sertraline HCl (Zoloft*) 50 mg PO DAILY [facility] Last Admin: 05/30/19 08:50 Dose: 50 mg Simethicone (Mylicon Tab*) 80 mg PO Q6H PRN PRN Reason: gas Sodium Chloride (Sodium Chloride 0.65% Nasal [place]*) 1 spray BOTH NARES Q2H PRN PRN Reason: DRY SKIN Last Admin: 05/29/19 00:31 Dose: 1 spray Vital Signs - 8 hr 05/31/19 05/31/19 03:10 03:34 Temperature 97.3 F Pulse Rate 68 Respiratory 18 18 Rate Blood Pressure 122/55 (mmHg) O2 Sat by Pulse 95 Oximetry Oxygen Devices in Use Now: Nasal Cannula Appearance: 58 yo F in nAD, aAOx3 Eyes: No Scleral Icterus, PERRLA Ears/Nose/Mouth/Throat: NL Teeth, Lips, Gums, Mucous Membranes Moist Neck: NL Appearance and Movements; NL JVP, Trachea Midline Respiratory: Symmetrical Chest Expansion and Respiratory Effort, - - rhonchi at RML, rales b/l bases Abdominal: NL Sounds; No Tenderness; No Distention, No Hepatosplenomegaly Lymphatic: No Cervical Adenopathy Extremities: No Clubbing, Cyanosis, - - +1 b/l ankle edema Skin: No Nodules or Sclerosis, - - R IJ tunneled cath for HD Neurological: Alert and Oriented x 3, NL Muscle Strength and Tone, - - lethargic Result Diagrams: 05/31/19 05:19 05/31/19 05:19 Microbiology and Other Data: Microbiology 05/27/19 08:22 Nasal Screen MRSA (PCR) - Final Nasal Mrsa Not Detected Diagnostic Imaging: Patient Name: EDWARDO GUILLEN Medical Record#: [id number] Ordering Physician: Danya Pizarro MD Acct.#: [id number] : 1960 Age: 58 Sex: F Location: EMERGENCY DEPARTMENT Exam Date: 05/27/19437 ADM Status: REG ER Order Information: CHEST AP OR PORT Accession Number: [id number] CPT: 84880 INDICATION: Shortness of breath. COMPARISON: Comparison is made with a prior chest x-ray study from April. TECHNIQUE: A portable view of the chest was obtained. FINDINGS: There is a central venous catheter entering on the right side. The catheter tip projects over the region of the right atrium. The heart is moderately enlarged. There are diffuse prominence of the interstitial markings and small to moderate size bilateral pleural effusions which appear unchanged most consistent with congestive heart failure. IMPRESSION: FINDINGS MOST CONSISTENT WITH CONGESTIVE HEART FAILURE, UNCHANGED. R0 Preliminary Imaging Read R0 <Electronically signed by Rell Baeza MD in OV> 05/27/19 4576 Assess/Plan/Problems-Billing Assessment: This is a 58 year old female with history of polycystic kidney disease/ESRD on hemodialysis, HTN, diastolic HF, depression, that presented to the ED with complaints of increasing SOB and respiratory distress. - Patient Problems (1) Acute hypercapnic respiratory failure Comment: - 2/2 volume overload with mild encephalopathy prior to bipap initially in ICU - today lethargic again-will get ABG and repeat CXR (2) Fever Comment: - Source unclear - Reportedly had "viral" illness at [facility] and was on Augmentin for one week prior to admission - CXR no infiltrate or consolidation, pt was on Vancomycin and zosyn , stopped x one day on 05/29/19 and developed worsening respiratory symptoms. Placed her on Ceftriaxone /Azithro on 05/30/19, still no improvement. Restarted Vanc/Zosyn 05/31/19 - Patient does not make urine - blood cultures NTD (3) (HFpEF) heart failure with preserved ejection fraction Comment: - pulmonary edema from admission appears to be reccuring, although it is uncertain if is purely related to volume or there is a component of ongoing pulmonary infection - Does not make urine (4) Rheumatoid arthritis Comment: - Longstanding chronic pain 2/2 RA - Currently controlled (5) ESRD (end stage renal disease) Comment: HD last on 05/29/19 (6) HTN (hypertension) Comment: controlled on home meds (7) Anemia Comment: - HH slightly lover than baseline likely due to critical illness and multiple blood draws -no evidence of acute bleed - Secondary to Chronic disease/ESRD - Continue supportive care (8) Anxiety Comment: controlled (9) DVT prophylaxis Comment: - HSQ Status and Disposition: Inpatient.
[2019-05-31] MEDS: amLODIPine TAB* 5 MG PO SCH (09:48)
[2019-05-31] MEDS: busPIRone TAB* 5 MG PO SCH ×2 (09:48→21:05)
[2019-05-31] MEDS: guaiFENesin ER TAB 600 MG PO SCH ×2 (09:54→21:06)
[2019-05-31] MEDS: Carvedilol TAB* 25 MG PO SCH ×2 (09:54→21:06)
[2019-05-31] MEDS: Clopidogrel TAB* 75 MG PO SCH (09:54)
[2019-05-31] MEDS: Lactobacillus Acidophilus* 1 TAB PO SCH (09:54)
[2019-05-31] MEDS: Calcium Acetate CAP* 667 MG PO SCH ×3 (09:54→18:00)
[2019-05-31] MEDS: Aspirin 81 mg CHEW TAB* 81 MG TAB.CHEW PO SCH (09:54)
[2019-05-31] MEDS: Pantoprazole TAB * 40 MG TAB PO SCH (09:54)
[2019-05-31] MEDS: Atorvastatin* 20 MG TAB PO SCH (09:54)
[2019-05-31] MEDS: Sertraline* 50 MG TAB PO SCH (09:54)
[2019-05-31] MEDS: Aliskiren TAB* 300 MG PO SCH (09:55)
[2019-05-31] MEDS ORDERED: Zosyn per Pharmacy* NOTE FOLLOW UP SCH (10:00)
[2019-05-31] MEDS ORDERED: Vancomycin per Pharmacy* NOTE FOLLOW UP SCH (10:00)
[2019-05-31] MEDS ORDERED: Vancomycin(*) 1,000 MG in NS 0.9% 250 ML* 250 ML IVPB ONE (11:00)
[2019-05-31] MEDS: Benzonatate CAP* 100 MG PO PRN ×2 (11:43→21:12)
[2019-05-31] MEDS: Albuterol/Ipratropium NEB.SOL* Albuterol 2.5 MG/Ipratropium 0.5 MG 3 ML INH PRN ×2 (14:27→23:18)
[2019-05-31] MEDS: ZOSYN 3.375 GM Q12H per EXTENDED INFUSION IVPB SCH ×2 (14:47)
[2019-05-31] MEDS: hydrOXYzine HCL TAB* 10 MG PO PRN ×2 (16:13→22:31)
[2019-05-31] MEDS: Acetaminophen TAB* 325 MG PO PRN (21:10)
[2019-06-01] MEDS: Melatonin 3 MG TAB PO PRN (00:28)
[2019-06-01] MEDS: ZOSYN 3.375 GM Q12H per EXTENDED INFUSION IVPB SCH ×4 (02:38→14:25)
[2019-06-01] MEDS: Heparin VIAL(*) 5000 UNITS/ML VIAL (FIVE THOUSAND) SUBCUT SCH ×4 (05:12→21:31)
[2019-06-01] MEDS ORDERED: Vancomycin Random Level* NOTE FOLLOW UP ONE (06:00)
[2019-06-01 06:35] LABS: EGFR African American 9.9 (>60); EGFR Non-African American 8.2 (>60)
[2019-06-01 06:37] LABS: Vancomycin Random 20.2 mcg/mL
[2019-06-01] MEDS: Calcium Acetate CAP* 667 MG PO SCH ×3 (10:24→17:16)
[2019-06-01] MEDS ORDERED: Heparin DIALYSIS ONLY(*) 1,000 UNITS/ML VIAL DIALYSIS ONE (11:00)
[2019-06-01] MEDS ORDERED: EPOETIN ALFA-EPBX * 4,000 UNIT/ML VIAL IV ONE (11:00)
--- NOTE | 2019-06-01 13:11 | PN ---
Subjective Date of Service: 06/01/19 Interval History: Pt is seen in dialysis suite. feeling better, still coughing Objective Active Medications: Acetaminophen (Tylenol Tab*) 650 mg PO Q4H PRN PRN Reason: BODY ACHES/PAIN Last Admin: 05/31/19 21:10 Dose: 650 mg Albuterol/Ipratropium (Duoneb (Albuterol 2.5 Mg/Ipratropium 0.5 Mg)) 1 neb INH Q4H PRN PRN Reason: SOB/WHEEZING Last Admin: 05/31/19 23:18 Dose: 1 neb Aliskiren (Tekturna Tab*) 300 mg PO QAM [facility] Last Admin: 05/31/19 09:55 Dose: 300 mg Amlodipine Besylate (Norvasc Tab*) 5 mg PO DAILY [facility] Last Admin: 05/31/19 09:48 Dose: 5 mg Aspirin (Aspirin 81 Mg Chew Tab*) 81 mg PO DAILY [facility] Last Admin: 05/31/19 09:54 Dose: 81 mg Atorvastatin Calcium (Lipitor*) 20 mg PO DAILY [facility] Last Admin: 05/31/19 09:54 Dose: 20 mg Benzonatate (Tessalon Cap*) 100 mg PO BID PRN PRN Reason: COUGH Last Admin: 05/31/19 21:12 Dose: 100 mg Buspirone HCl (Buspar Tab*) 5 mg PO BID [facility] Last Admin: 05/31/19 21:05 Dose: 5 mg Calcium Acetate (Phoslo Cap*) 1,334 mg PO TID WITH MEALS [facility] Last Admin: 06/01/19 12:33 Dose: Not Given Carvedilol (Coreg Tab*) 50 mg PO BID [facility] Last Admin: 05/31/19 21:06 Dose: 50 mg Clopidogrel Bisulfate (Plavix Tab*) 75 mg PO DAILY [facility] Last Admin: 05/31/19 09:54 Dose: 75 mg Guaifenesin (Mucinex*) 600 mg PO BID [facility] Last Admin: 05/31/19 21:06 Dose: 600 mg Heparin Sodium (Porcine) (Heparin Vial(*)) 5,000 units SUBCUT Q8HR [facility] Last Admin: 06/01/19 12:33 Dose: Not Given Hydroxyzine HCl (Atarax Tab*) 10 mg PO Q6H PRN PRN Reason: ANXIETY Last Admin: 05/31/19 22:31 Dose: 10 mg Piperacillin Sod/Tazobactam (Sod 3.375 gm/ Sodium Chloride) 100 mls @ 25 mls/ hr IVPB Q12H [facility] Last Admin: 06/01/19 02:38 Dose: 25 mls/hr Vancomycin HCl 500 mg/ Sodium (Chloride) 250 mls @ 166.667 mls/hr IVPB ONCE ONE Stop: 06/01/19 17:29 Lactobacillus Rhamnosus (Lactobacillus Acidophilus*) 1 tab PO DAILY [facility] Last Admin: 05/31/19 09:54 Dose: 1 tab Melatonin (Melatonin) 3 mg PO BEDTIME PRN PRN Reason: INSOMNIA Last Admin: 06/01/19 00:28 Dose: 3 mg Miscellaneous (Ativan Pyxis [place]) 1 ea N/A .ATIVAN IV ROSENBERG PRN PRN Reason: PYXIS ROSENBERG Ondansetron HCl (Zofran Inj*) 4 mg IV Q4H PRN PRN Reason: NAUSEA/VOMITING Last Admin: 05/30/19 11:54 Dose: 4 mg Pantoprazole Sodium (Protonix Tab*) 40 mg PO DAILY [facility] Last Admin: 05/31/19 09:54 Dose: 40 mg Pharmacy Consult (Vancomycin Per Pharmacy*) 1 note FOLLOW UP .VANC PER PHARMACY [facility]; Protocol Pharmacy Consult (Zosyn Per Pharmacy*) 1 note FOLLOW UP .ZOSYN PER PHARMACY [facility] Pharmacy Consult (Vancomycin Random Level*) 1 note FOLLOW UP 0600 ONE Stop: 06/03/19 06:01 Sertraline HCl (Zoloft*) 50 mg PO DAILY [facility] Last Admin: 05/31/19 09:54 Dose: 50 mg Simethicone (Mylicon Tab*) 80 mg PO Q6H PRN PRN Reason: gas Sodium Chloride (Sodium Chloride 0.65% Nasal [place]*) 1 spray BOTH NARES Q2H PRN PRN Reason: DRY SKIN Last Admin: 05/29/19 00:31 Dose: 1 spray Vital Signs - 8 hr 06/01/19 06/01/19 07:15 07:59 Temperature 97.3 F Pulse Rate 67 Respiratory 17 20 Rate Blood Pressure 136/55 (mmHg) O2 Sat by Pulse 98 Oximetry Oxygen Devices in Use Now: Nasal Cannula Appearance: 58 yo F in nAD, AAOx3 Eyes: No Scleral Icterus, PERRLA Ears/Nose/Mouth/Throat: NL Teeth, Lips, Gums, Mucous Membranes Moist Neck: NL Appearance and Movements; NL JVP, Trachea Midline Respiratory: Symmetrical Chest Expansion and Respiratory Effort, - - rhonchi at RML Cardiovascular: NL Sounds; No Murmurs; No JVD, RRR Abdominal: NL Sounds; No Tenderness; No Distention Lymphatic: No Cervical Adenopathy Extremities: No Clubbing, Cyanosis, - - trace pedal edema b/l Skin: No Nodules or Sclerosis Neurological: Alert and Oriented x 3, NL Muscle Strength and Tone Result Diagrams: 05/31/19 05:19 06/01/19 05:39 Microbiology and Other Data: Microbiology 05/27/19 08:22 Nasal Screen MRSA (PCR) - Final Nasal Mrsa Not Detected Diagnostic Imaging: Patient Name: EDWARDO GUILLEN Medical Record#: [id number] Ordering Physician: Danya Pizarro MD Acct.#: [id number] : 1960 Age: 58 Sex: F Location: EMERGENCY DEPARTMENT Exam Date: 05/27/19437 ADM Status: REG ER Order Information: CHEST AP OR PORT Accession Number: [id number] CPT: 60216 INDICATION: Shortness of breath. COMPARISON: Comparison is made with a prior chest x-ray study from April. TECHNIQUE: A portable view of the chest was obtained. FINDINGS: There is a central venous catheter entering on the right side. The catheter tip projects over the region of the right atrium. The heart is moderately enlarged. There are diffuse prominence of the interstitial markings and small to moderate size bilateral pleural effusions which appear unchanged most consistent with congestive heart failure. IMPRESSION: FINDINGS MOST CONSISTENT WITH CONGESTIVE HEART FAILURE, UNCHANGED. R0 Preliminary Imaging Read R0 <Electronically signed by Rell Baeza MD in OV> 05/27/19 5369 Assess/Plan/Problems-Billing Assessment: This is a 58 year old female with history of polycystic kidney disease/ESRD on hemodialysis, HTN, diastolic HF, depression, that presented to the ED with complaints of increasing SOB and respiratory distress. - Patient Problems (1) Acute hypercapnic respiratory failure Comment: - 2/2 volume overload with mild encephalopathy prior to bipap initially in ICU - resolved, lethargy better,now, whn off benzodiazepines. (2) Fever Comment: - Source -cinically RML PNA - Reportedly had "viral" illness at [facility] and was on Augmentin for one week prior to admission - CXR no infiltrate or consolidation, pt was on Vancomycin and zosyn , stopped x one day on 05/29/19 and developed worsening respiratory symptoms. Placed her on Ceftriaxone /Azithro on 05/30/19, still no improvement. Restarted Vanc/Zosyn 05/31/19 - Patient does not make urine - blood cultures NTD (3) (HFpEF) heart failure with preserved ejection fraction Comment: - pulmonary edema from admission appears to be reccuring, although it is uncertain if is purely related to volume or there is a component of ongoing pulmonary infection - Does not make urine (4) Rheumatoid arthritis Comment: - Longstanding chronic pain 2/2 RA - Currently controlled (5) ESRD (end stage renal disease) Comment: HD last on 06/01/19 (6) HTN (hypertension) Comment: controlled on home meds (7) Anemia Comment: - HH slightly lover than baseline likely due to critical illness and multiple blood draws -no evidence of acute bleed - Secondary to Chronic disease/ESRD - Continue supportive care (8) Anxiety Comment: controlled (9) DVT prophylaxis Comment: - HSQ Status and Disposition: Inpatient.
[2019-06-01] MEDS: Carvedilol TAB* 25 MG PO SCH ×2 (14:07→20:55)
[2019-06-01] MEDS: amLODIPine TAB* 5 MG PO SCH (14:07)
[2019-06-01] MEDS: Atorvastatin* 20 MG TAB PO SCH (14:07)
[2019-06-01] MEDS: Acetaminophen TAB* 325 MG PO PRN ×3 (14:07→20:58)
[2019-06-01] MEDS: Clopidogrel TAB* 75 MG PO SCH (14:08)
[2019-06-01] MEDS: guaiFENesin ER TAB 600 MG PO SCH ×2 (14:08→20:55)
[2019-06-01] MEDS: Lactobacillus Acidophilus* 1 TAB PO SCH (14:08)
[2019-06-01] MEDS: Aspirin 81 mg CHEW TAB* 81 MG TAB.CHEW PO SCH (14:08)
[2019-06-01] MEDS: Sertraline* 50 MG TAB PO SCH (14:08)
[2019-06-01] MEDS: busPIRone TAB* 5 MG PO SCH ×2 (14:08→20:55)
[2019-06-01] MEDS: Aliskiren TAB* 300 MG PO SCH (14:09)
[2019-06-01] MEDS: Pantoprazole TAB * 40 MG TAB PO SCH (14:09)
[2019-06-01] MEDS: Albuterol/Ipratropium NEB.SOL* Albuterol 2.5 MG/Ipratropium 0.5 MG 3 ML INH PRN (14:44)
[2019-06-01] MEDS ORDERED: Vancomycin(*) 500 MG in NS 0.9% 250 ML* 250 ML IVPB ONE (16:00)
--- NOTE | 2019-06-01 18:42 | PN ---
Progress Note - Progress Note Date of Service: 06/01/19 Note: History of present illness: Patient admitted on the of this month with acute pulmonary edema. She is in poor health. Today is her regular hemodialysis day. Complains of shortness of breath and cough. Labs reviewed and dialysis prescription discussed with the dialysis nurse. Review of systems: Constitutional patient looks ill and uncomfortable. She complained of anxiety she states she was given an Ativan last night Cardiovascular: No palpitations, edema present Physical exam: Blood pressure 167/66, oxygen saturation is 99% on 4 L of supplemental oxygen, heart rate 67, temperature 98.2 Constitutional: 58-year-old woman looking older than her stated age, with anxiety. Chest with diffuse wheezes, abdomen is soft nontender nondistended, extremities with +2 lower extremities edema and no clubbing or cyanosis Labs reviewed: Assessment and plan. 1. End Stage kidney disease on dialysis Saturday. a. I saw the patient during maintenance hemodialysis today. Tolerating treatment as usual for her. Blood pressure was high around 160 systolic. 2. Pulmonary edema- improving Anemia of end-stage kidney disease. Patient receiving EMILIANA with dialysis
[2019-06-01] MEDS: Benzonatate CAP* 100 MG PO PRN (19:40)
[2019-06-01] MEDS: hydrOXYzine HCL TAB* 10 MG PO PRN (19:41)
[2019-06-02] MEDS: Saline NASAL SPRAY 0.65%* BTL BOTH NARES PRN (01:55)
[2019-06-02] MEDS: ZOSYN 3.375 GM Q12H per EXTENDED INFUSION IVPB SCH ×4 (03:20→14:12)
[2019-06-02] MEDS: Heparin VIAL(*) 5000 UNITS/ML VIAL (FIVE THOUSAND) SUBCUT SCH ×3 (05:01→20:34)
[2019-06-02] MEDS: Atorvastatin* 20 MG TAB PO SCH (08:30)
[2019-06-02] MEDS: amLODIPine TAB* 5 MG PO SCH (08:30)
[2019-06-02] MEDS: Calcium Acetate CAP* 667 MG PO SCH ×3 (08:30→17:18)
[2019-06-02] MEDS: Sertraline* 50 MG TAB PO SCH (08:31)
[2019-06-02] MEDS: Pantoprazole TAB * 40 MG TAB PO SCH (08:31)
[2019-06-02] MEDS: Carvedilol TAB* 25 MG PO SCH ×2 (08:31→20:33)
[2019-06-02] MEDS: Lactobacillus Acidophilus* 1 TAB PO SCH (08:31)
[2019-06-02] MEDS: Clopidogrel TAB* 75 MG PO SCH (08:31)
[2019-06-02] MEDS: Aspirin 81 mg CHEW TAB* 81 MG TAB.CHEW PO SCH (08:31)
[2019-06-02] MEDS: guaiFENesin ER TAB 600 MG PO SCH ×2 (08:31→20:34)
[2019-06-02] MEDS: busPIRone TAB* 5 MG PO SCH ×2 (08:31→20:34)
[2019-06-02] MEDS: Aliskiren TAB* 300 MG PO SCH (08:31)
--- NOTE | 2019-06-02 10:23 | PN ---
Subjective Date of Service: 06/02/19 Interval History: Cough persists. Feels "run down" after HD Feels breathing is better since yesterday but not near baseline At baseline can walk about 15 ft Objective Active Medications: Acetaminophen (Tylenol Tab*) 650 mg PO Q4H PRN PRN Reason: FEVER/PAIN Last Admin: 06/01/19 20:58 Dose: 650 mg Albuterol/Ipratropium (Duoneb (Albuterol 2.5 Mg/Ipratropium 0.5 Mg)) 1 neb INH Q4H PRN PRN Reason: SOB/WHEEZING Last Admin: 06/01/19 14:44 Dose: 1 neb Aliskiren (Tekturna Tab*) 300 mg PO QAM [facility] Last Admin: 06/02/19 08:31 Dose: 300 mg Amlodipine Besylate (Norvasc Tab*) 5 mg PO DAILY [facility] Last Admin: 06/02/19 08:30 Dose: 5 mg Aspirin (Aspirin 81 Mg Chew Tab*) 81 mg PO DAILY [facility] Last Admin: 06/02/19 08:31 Dose: 81 mg Atorvastatin Calcium (Lipitor*) 20 mg PO DAILY [facility] Last Admin: 06/02/19 08:30 Dose: 20 mg Benzonatate (Tessalon Cap*) 100 mg PO BID PRN PRN Reason: COUGH Last Admin: 06/01/19 19:40 Dose: 100 mg Buspirone HCl (Buspar Tab*) 5 mg PO BID [facility] Last Admin: 06/02/19 08:31 Dose: 5 mg Calcium Acetate (Phoslo Cap*) 1,334 mg PO TID WITH MEALS [facility] Last Admin: 06/02/19 08:30 Dose: 1,334 mg Carvedilol (Coreg Tab*) 50 mg PO BID [facility] Last Admin: 06/02/19 08:31 Dose: 50 mg Clopidogrel Bisulfate (Plavix Tab*) 75 mg PO DAILY [facility] Last Admin: 06/02/19 08:31 Dose: 75 mg Guaifenesin (Mucinex*) 600 mg PO BID [facility] Last Admin: 06/02/19 08:31 Dose: 600 mg Heparin Sodium (Porcine) (Heparin Vial(*)) 5,000 units SUBCUT Q8HR [facility] Last Admin: 06/02/19 05:01 Dose: Not Given Hydroxyzine HCl (Atarax Tab*) 10 mg PO Q6H PRN PRN Reason: ANXIETY Last Admin: 06/01/19 19:41 Dose: 10 mg Piperacillin Sod/Tazobactam (Sod 3.375 gm/ Sodium Chloride) 100 mls @ 25 mls/ hr IVPB Q12H [facility] Last Admin: 06/02/19 03:20 Dose: 25 mls/hr Lactobacillus Rhamnosus (Lactobacillus Acidophilus*) 1 tab PO DAILY [facility] Last Admin: 06/02/19 08:31 Dose: 1 tab Melatonin (Melatonin) 3 mg PO BEDTIME PRN PRN Reason: INSOMNIA Last Admin: 06/01/19 00:28 Dose: 3 mg Miscellaneous (Ativan Pyxis Rosenberg) 1 ea N/A .ATIVAN IV ROSENBERG PRN PRN Reason: PYXIS ROSENBERG Ondansetron HCl (Zofran Inj*) 4 mg IV Q4H PRN PRN Reason: NAUSEA/VOMITING Last Admin: 05/30/19 11:54 Dose: 4 mg Pantoprazole Sodium (Protonix Tab*) 40 mg PO DAILY [facility] Last Admin: 06/02/19 08:31 Dose: 40 mg Pharmacy Consult (Vancomycin Per Pharmacy*) 1 note FOLLOW UP .VANC PER PHARMACY [facility]; Protocol Pharmacy Consult (Zosyn Per Pharmacy*) 1 note FOLLOW UP .ZOSYN PER PHARMACY [facility] Pharmacy Consult (Vancomycin - Dialysis Dosing*) 1 note FOLLOW UP 0600 ONE Stop: 06/03/19 06:01 Sertraline HCl (Zoloft*) 50 mg PO DAILY [facility] Last Admin: 06/02/19 08:31 Dose: 50 mg Simethicone (Mylicon Tab*) 80 mg PO Q6H PRN PRN Reason: gas Sodium Chloride (Sodium Chloride 0.65% Nasal [place]*) 1 spray BOTH NARES Q2H PRN PRN Reason: DRY SKIN Last Admin: 06/02/19 01:55 Dose: 1 spray Vital Signs - 8 hr 06/02/19 06/02/19 06/02/19 03:15 07:44 08:00 Temperature 98.2 F 98.6 F Pulse Rate 58 63 Respiratory 19 20 16 Rate Blood Pressure 125/53 135/67 (mmHg) O2 Sat by Pulse 99 96 Oximetry Oxygen Devices in Use Now: Nasal Cannula - 3L Appearance: sitting in chair, NAD Eyes: No Scleral Icterus, PERRLA Ears/Nose/Mouth/Throat: NL Teeth, Lips, Gums, Clear Oropharnyx Neck: NL Appearance and Movements; NL JVP, Trachea Midline Respiratory: Symmetrical Chest Expansion and Respiratory Effort, - - trace rales in bases Cardiovascular: RRR, - - 2/6 DONALD Abdominal: NL Sounds; No Tenderness; No Distention, No Hepatosplenomegaly Lymphatic: No Cervical Adenopathy Extremities: No Edema Skin: No Rash or Ulcers Neurological: Alert and Oriented x 3 Result Diagrams: 05/31/19 05:19 06/01/19 05:39 Microbiology and Other Data: Microbiology 05/27/19 08:22 Nasal Screen MRSA (PCR) - Final Nasal Mrsa Not Detected Diagnostic Imaging: Patient Name: EDWARDO GUILLEN Medical Record#: [id number] Ordering Physician: Danya Pizarro MD Acct.#: [id number] : 1960 Age: 58 Sex: F Location: EMERGENCY DEPARTMENT Exam Date: 05/27/19437 ADM Status: REG ER Order Information: CHEST AP OR PORT Accession Number: [id number] CPT: 77204 INDICATION: Shortness of breath. COMPARISON: Comparison is made with a prior chest x-ray study from April. TECHNIQUE: A portable view of the chest was obtained. FINDINGS: There is a central venous catheter entering on the right side. The catheter tip projects over the region of the right atrium. The heart is moderately enlarged. There are diffuse prominence of the interstitial markings and small to moderate size bilateral pleural effusions which appear unchanged most consistent with congestive heart failure. IMPRESSION: FINDINGS MOST CONSISTENT WITH CONGESTIVE HEART FAILURE, UNCHANGED. R0 Preliminary Imaging Read R0 <Electronically signed by Rell Baeza MD in OV> 05/27/19 1873 Assess/Plan/Problems-Billing Assessment: 58 year old female with history of polycystic kidney disease and ESRD on hemodialysis MWF, HTN, diastolic HF, depression, that presented to the ED with complaints of increasing SOB found with hypercarbic/hypoxic respiratory failure requiring ICU and BiPAP - Patient Problems (1) Acute hypercapnic respiratory failure Comment: - volume overload and PNA (see below) - complicated by mild encephalopathy on arrival prior to bipap initially in ICU - resolved, lethargy better - Holding benzodiazepines as thought they contributed to encephalopathy (2) Pneumonia Comment: Suspected RML PNA 1 week URI on Augment at [facility] prior to presentation This stay - after vanco/zoysn stopped (05/29) pt developed worsening respiratory symptoms. Started CTX/azithro 05/31 without improvement. Now improving on vanco/zosyn after changed back on 05/31 (3) (HFpEF) heart failure with preserved ejection fraction Comment: - pulmonary edema present on admission improving - volume is HD dependent (4) Anemia Comment: - H/H slightly lower than baseline likely due to critical illness, ESRD and multiple blood draws -no evidence of acute bleed - Secondary to Chronic disease/ESRD - Continue supportive care (5) Anxiety Comment: controlled holding benzos as above 2/2 sedation (6) ESRD (end stage renal disease) Comment: HD last on 06/01/19 (7) Rheumatoid arthritis Comment: - Longstanding chronic pain 2/2 RA - Currently controlled (8) DVT prophylaxis Comment: - HSQ Status and Disposition: Inpatient.
[2019-06-02] MEDS: Acetaminophen TAB* 325 MG PO PRN (10:50)
[2019-06-02] MEDS: Albuterol/Ipratropium NEB.SOL* Albuterol 2.5 MG/Ipratropium 0.5 MG 3 ML INH PRN ×2 (13:05→20:52)
[2019-06-02] MEDS: hydrOXYzine HCL TAB* 10 MG PO PRN ×2 (15:10→22:00)
[2019-06-02] MEDS: Benzonatate CAP* 100 MG PO PRN ×2 (17:22→23:11)
[2019-06-03] MEDS: Acetaminophen TAB* 325 MG PO PRN ×2 (01:50→17:44)
[2019-06-03] MEDS: Saline NASAL SPRAY 0.65%* BTL BOTH NARES PRN (01:53)
[2019-06-03] MEDS: ZOSYN 3.375 GM Q12H per EXTENDED INFUSION IVPB SCH ×4 (02:09→14:08)
[2019-06-03] MEDS: Heparin VIAL(*) 5000 UNITS/ML VIAL (FIVE THOUSAND) SUBCUT SCH ×3 (04:39→22:14)
[2019-06-03] MEDS ORDERED: Vancomycin - DIALYSIS DOSING* NOTE FOLLOW UP ONE (06:00)
[2019-06-03] MEDS: Ondansetron INJ* 2 MG/ML VIAL IV PRN (06:13)
[2019-06-03] MEDS: Lactobacillus Acidophilus* 1 TAB PO SCH (08:34)
[2019-06-03] MEDS: guaiFENesin ER TAB 600 MG PO SCH ×2 (08:34→19:54)
[2019-06-03] MEDS: Clopidogrel TAB* 75 MG PO SCH (08:34)
[2019-06-03] MEDS: Aliskiren TAB* 300 MG PO SCH (08:34)
[2019-06-03] MEDS: Atorvastatin* 20 MG TAB PO SCH (08:34)
[2019-06-03] MEDS: Aspirin 81 mg CHEW TAB* 81 MG TAB.CHEW PO SCH (08:34)
[2019-06-03] MEDS: busPIRone TAB* 5 MG PO SCH ×2 (08:34→19:51)
[2019-06-03] MEDS: Calcium Acetate CAP* 667 MG PO SCH ×3 (08:35→16:46)
[2019-06-03] MEDS: Carvedilol TAB* 25 MG PO SCH ×2 (08:35→20:04)
[2019-06-03] MEDS: amLODIPine TAB* 5 MG PO SCH (08:35)
[2019-06-03] MEDS: Pantoprazole TAB * 40 MG TAB PO SCH (08:35)
[2019-06-03] MEDS: Sertraline* 50 MG TAB PO SCH (08:35)
--- NOTE | 2019-06-03 15:43 | PN ---
Subjective Date of Service: 06/03/19 Interval History: Did not sleep well because of cough No pain Feels SOB and coughing is no worse than yesterday Objective Active Medications: Acetaminophen (Tylenol Tab*) 650 mg PO Q4H PRN PRN Reason: FEVER/PAIN Last Admin: 06/03/19 01:50 Dose: 650 mg Albuterol/Ipratropium (Duoneb (Albuterol 2.5 Mg/Ipratropium 0.5 Mg)) 1 neb INH Q4H PRN PRN Reason: SOB/WHEEZING Last Admin: 06/02/19 20:52 Dose: 1 neb Aliskiren (Tekturna Tab*) 300 mg PO QAM [facility] Last Admin: 06/03/19 08:34 Dose: 300 mg Amlodipine Besylate (Norvasc Tab*) 5 mg PO DAILY [facility] Last Admin: 06/03/19 08:35 Dose: 5 mg Aspirin (Aspirin 81 Mg Chew Tab*) 81 mg PO DAILY [facility] Last Admin: 06/03/19 08:34 Dose: 81 mg Atorvastatin Calcium (Lipitor*) 20 mg PO DAILY [facility] Last Admin: 06/03/19 08:34 Dose: 20 mg Benzonatate (Tessalon Cap*) 100 mg PO BID PRN PRN Reason: COUGH Last Admin: 06/02/19 23:11 Dose: 100 mg Buspirone HCl (Buspar Tab*) 5 mg PO BID [facility] Last Admin: 06/03/19 08:34 Dose: 5 mg Calcium Acetate (Phoslo Cap*) 1,334 mg PO TID WITH MEALS [facility] Last Admin: 06/03/19 11:53 Dose: Not Given Carvedilol (Coreg Tab*) 50 mg PO BID [facility] Last Admin: 06/03/19 08:35 Dose: 50 mg Clopidogrel Bisulfate (Plavix Tab*) 75 mg PO DAILY [facility] Last Admin: 06/03/19 08:34 Dose: 75 mg Guaifenesin (Mucinex*) 600 mg PO BID [facility] Last Admin: 06/03/19 08:34 Dose: 600 mg Heparin Sodium (Porcine) (Heparin Vial(*)) 5,000 units SUBCUT Q8HR [facility] Last Admin: 06/03/19 13:28 Dose: Not Given Hydroxyzine HCl (Atarax Tab*) 10 mg PO Q6H PRN PRN Reason: ANXIETY Last Admin: 06/02/19 22:00 Dose: 10 mg Piperacillin Sod/Tazobactam (Sod 3.375 gm/ Sodium Chloride) 100 mls @ 25 mls/ hr IVPB Q12H [facility] Last Admin: 06/03/19 14:08 Dose: 25 mls/hr Lactobacillus Rhamnosus (Lactobacillus Acidophilus*) 1 tab PO DAILY [facility] Last Admin: 06/03/19 08:34 Dose: 1 tab Melatonin (Melatonin) 3 mg PO BEDTIME PRN PRN Reason: INSOMNIA Last Admin: 06/01/19 00:28 Dose: 3 mg Miscellaneous (Ativan Pyxis Rosenberg) 1 ea N/A .ATIVAN IV ROSENBERG PRN PRN Reason: PYXIS ROSENBERG Ondansetron HCl (Zofran Inj*) 4 mg IV Q4H PRN PRN Reason: NAUSEA/VOMITING Last Admin: 06/03/19 06:13 Dose: 4 mg Pantoprazole Sodium (Protonix Tab*) 40 mg PO DAILY [facility] Last Admin: 06/03/19 08:35 Dose: 40 mg Pharmacy Consult (Vancomycin Per Pharmacy*) 1 note FOLLOW UP .VANC PER PHARMACY [facility]; Protocol Pharmacy Consult (Zosyn Per Pharmacy*) 1 note FOLLOW UP .ZOSYN PER PHARMACY [facility] Sertraline HCl (Zoloft*) 50 mg PO DAILY [facility] Last Admin: 06/03/19 08:35 Dose: 50 mg Simethicone (Mylicon Tab*) 80 mg PO Q6H PRN PRN Reason: gas Sodium Chloride (Sodium Chloride 0.65% Nasal [place]*) 1 spray BOTH NARES Q2H PRN PRN Reason: DRY SKIN Last Admin: 06/03/19 01:53 Dose: 1 spray Vital Signs - 8 hr 06/03/19 06/03/19 06/03/19 08:00 11:15 15:15 Temperature 97.5 F 97.2 F Pulse Rate 66 61 Respiratory 20 16 16 Rate Blood Pressure 110/50 133/64 (mmHg) O2 Sat by Pulse 98 100 Oximetry Oxygen Devices in Use Now: Nasal Cannula Appearance: lying 30 deg, NAD, no coughing Eyes: No Scleral Icterus, PERRLA Ears/Nose/Mouth/Throat: NL Teeth, Lips, Gums, Clear Oropharnyx Neck: NL Appearance and Movements; NL JVP, Trachea Midline Respiratory: Symmetrical Chest Expansion and Respiratory Effort, - - decreased throughout Cardiovascular: - - IRIR Abdominal: NL Sounds; No Tenderness; No Distention, No Hepatosplenomegaly Lymphatic: No Cervical Adenopathy Extremities: No Edema Neurological: Alert and Oriented x 3 Result Diagrams: 05/31/19 05:19 06/01/19 05:39 Microbiology and Other Data: Microbiology 05/27/19 08:22 Nasal Screen MRSA (PCR) - Final Nasal Mrsa Not Detected Diagnostic Imaging: Patient Name: EDWARDO GUILLEN Medical Record#: [id number] Ordering Physician: Danya Pizarro MD Acct.#: [id number] : 1960 Age: 58 Sex: F Location: EMERGENCY DEPARTMENT Exam Date: 05/27/19437 ADM Status: REG ER Order Information: CHEST AP OR PORT Accession Number: [id number] CPT: 75545 INDICATION: Shortness of breath. COMPARISON: Comparison is made with a prior chest x-ray study from April. TECHNIQUE: A portable view of the chest was obtained. FINDINGS: There is a central venous catheter entering on the right side. The catheter tip projects over the region of the right atrium. The heart is moderately enlarged. There are diffuse prominence of the interstitial markings and small to moderate size bilateral pleural effusions which appear unchanged most consistent with congestive heart failure. IMPRESSION: FINDINGS MOST CONSISTENT WITH CONGESTIVE HEART FAILURE, UNCHANGED. R0 Preliminary Imaging Read R0 <Electronically signed by Rell Baeza MD in OV> 05/27/19 8916 Assess/Plan/Problems-Billing Assessment: 58 year old female with history of polycystic kidney disease and ESRD on hemodialysis MWF, HTN, diastolic HF, depression, that presented to the ED with complaints of increasing SOB found with hypercarbic/hypoxic respiratory failure requiring ICU and BiPAP - Patient Problems (1) Acute hypercapnic respiratory failure Comment: - volume overload and PNA (see below) - complicated by mild encephalopathy on arrival prior to bipap initially in ICU - resolved, lethargy better - Holding benzodiazepines as thought they contributed to encephalopathy (2) Pneumonia Comment: Suspected RML PNA 1 week URI on Augment at [facility] prior to presentation This stay - after vanco/zoysn stopped (05/29) pt developed worsening respiratory symptoms. Started CTX/azithro 05/31 without improvement. Now improving on vanco/zosyn after changed back on 05/31 (3) (HFpEF) heart failure with preserved ejection fraction Comment: - pulmonary edema present on admission improving - volume is HD dependent (4) Anemia Comment: - H/H slightly lower than baseline likely due to critical illness, ESRD and multiple blood draws -no evidence of acute bleed - Secondary to Chronic disease/ESRD - Continue supportive care (5) Anxiety Comment: controlled holding benzos as above 2/2 sedation (6) ESRD (end stage renal disease) Comment: HD last on 06/01/19 (7) Rheumatoid arthritis Comment: - Longstanding chronic pain 2/2 RA - Currently controlled (8) DVT prophylaxis Comment: - HSQ Status and Disposition: Inpatient.
[2019-06-03] MEDS: Benzonatate CAP* 100 MG PO PRN (20:00)
[2019-06-04] MEDS: Acetaminophen TAB* 325 MG PO PRN ×4 (00:32→21:47)
[2019-06-04] MEDS: Melatonin 3 MG TAB PO PRN ×2 (00:34→21:49)
[2019-06-04] MEDS: ZOSYN 3.375 GM Q12H per EXTENDED INFUSION IVPB SCH ×4 (01:32→15:53)
[2019-06-04] MEDS: Nystatin OINT* 15 GM TOPICAL PRN ×2 (01:32→21:57)
[2019-06-04] MEDS: hydrOXYzine HCL TAB* 10 MG PO PRN ×3 (02:34→22:47)
[2019-06-04] MEDS: Heparin VIAL(*) 5000 UNITS/ML VIAL (FIVE THOUSAND) SUBCUT SCH ×3 (05:16→21:49)
[2019-06-04 05:39] LABS: Hematocrit 30 % (35-47); Hemoglobin 9.9 g/dL (12.0-16.0); Mean Corpuscular HGB Conc 33 g/dL (31-36); Mean Corpuscular Hemoglobin 32 pg (27-31); Mean Corpuscular Volume 97 fL (80-97); Mean Platelet Volume 7.3 fL (7.4-10.4); Platelet Count 264 10^3/uL (150-450); Red Blood Count 3.11 10^6 /uL (3.70-4.87); Red Cell Distribution Width 16 % (10-15); White Blood Count 8.2 10^3/uL (3.5-10.8)
[2019-06-04 05:55] LABS: BUN/Creatinine Ratio 4.9 (8-20); Calcium 9.3 mg/dL (8.6-10.3); EGFR African American 9.3 (>60); EGFR Non-African American 7.7 (>60); Phosphorus 4.7 mg/dL (2.5-5.0); Potassium 3.7 mmol/L (3.5-5.0)
[2019-06-04 05:56] LABS: Vancomycin Random 18.3 mcg/mL
[2019-06-04] MEDS ORDERED: Vancomycin - DIALYSIS DOSING* NOTE FOLLOW UP SCH (08:43)
[2019-06-04] MEDS: Calcium Acetate CAP* 667 MG PO SCH ×3 (09:12→16:57)
[2019-06-04] MEDS: Clopidogrel TAB* 75 MG PO SCH (09:12)
[2019-06-04] MEDS: guaiFENesin ER TAB 600 MG PO SCH ×2 (09:12→21:07)
[2019-06-04] MEDS: Atorvastatin* 20 MG TAB PO SCH (09:12)
[2019-06-04] MEDS: Sertraline* 50 MG TAB PO SCH (09:12)
[2019-06-04] MEDS: Aspirin 81 mg CHEW TAB* 81 MG TAB.CHEW PO SCH (09:12)
[2019-06-04] MEDS: Lactobacillus Acidophilus* 1 TAB PO SCH (09:12)
[2019-06-04] MEDS: Pantoprazole TAB * 40 MG TAB PO SCH (09:12)
[2019-06-04] MEDS: busPIRone TAB* 5 MG PO SCH ×2 (09:12→21:07)
[2019-06-04] MEDS: amLODIPine TAB* 5 MG PO SCH (09:12)
[2019-06-04] MEDS: Carvedilol TAB* 25 MG PO SCH ×4 (09:13→23:47)
[2019-06-04] MEDS: Aliskiren TAB* 300 MG PO SCH (09:13)
[2019-06-04] MEDS ORDERED: EPOETIN ALFA-EPBX * 4,000 UNIT/ML VIAL IV ONE (11:00)
[2019-06-04] MEDS ORDERED: Heparin DIALYSIS ONLY(*) 1,000 UNITS/ML VIAL DIALYSIS ONE (11:00)
--- NOTE | 2019-06-04 12:58 | PN ---
Progress Note - Progress Note Date of Service: 06/04/19 Note: Chief complaint: End-stage kidney disease Interval history: Beth looks worse than the last time I saw her. She is sleepy and short of breath. She is also been having a wet cough. Review of systems: She admits to being short of breath. She denies chest pain. Meds Acetaminophen (Tylenol Tab*) 650 mg PO Q4H PRN PRN Reason: FEVER/PAIN Last Admin: 06/04/19 05:16 Dose: 650 mg Albuterol/Ipratropium (Duoneb (Albuterol 2.5 Mg/Ipratropium 0.5 Mg)) 1 neb INH Q4H PRN PRN Reason: SOB/WHEEZING Last Admin: 06/02/19 20:52 Dose: 1 neb Aliskiren (Tekturna Tab*) 300 mg PO QAM [facility] Last Admin: 06/04/19 09:13 Dose: 300 mg Amlodipine Besylate (Norvasc Tab*) 5 mg PO DAILY [facility] Last Admin: 06/04/19 09:12 Dose: 5 mg Aspirin (Aspirin 81 Mg Chew Tab*) 81 mg PO DAILY [facility] Last Admin: 06/04/19 09:12 Dose: 81 mg Atorvastatin Calcium (Lipitor*) 20 mg PO DAILY [facility] Last Admin: 06/04/19 09:12 Dose: 20 mg Benzonatate (Tessalon Cap*) 100 mg PO BID PRN PRN Reason: COUGH Last Admin: 06/03/19 20:00 Dose: 100 mg Buspirone HCl (Buspar Tab*) 5 mg PO BID [facility] Last Admin: 06/04/19 09:12 Dose: 5 mg Calcium Acetate (Phoslo Cap*) 1,334 mg PO TID WITH MEALS [facility] Last Admin: 06/04/19 09:12 Dose: 1,334 mg Carvedilol (Coreg Tab*) 50 mg PO BID [facility] Last Admin: 06/04/19 09:13 Dose: Not Given Clopidogrel Bisulfate (Plavix Tab*) 75 mg PO DAILY [facility] Last Admin: 06/04/19 09:12 Dose: 75 mg Guaifenesin (Mucinex*) 600 mg PO BID [facility] Last Admin: 06/04/19 09:12 Dose: 600 mg Heparin Sodium (Porcine) (Heparin Vial(*)) 5,000 units SUBCUT Q8HR [facility] Last Admin: 06/04/19 05:16 Dose: 5,000 units Hydroxyzine HCl (Atarax Tab*) 10 mg PO Q6H PRN PRN Reason: ANXIETY Last Admin: 06/04/19 02:34 Dose: 10 mg Piperacillin Sod/Tazobactam (Sod 3.375 gm/ Sodium Chloride) 100 mls @ 25 mls/ hr IVPB Q12H [facility] Last Admin: 06/04/19 01:32 Dose: 25 mls/hr Lactobacillus Rhamnosus (Lactobacillus Acidophilus*) 1 tab PO DAILY [facility] Last Admin: 06/04/19 09:12 Dose: 1 tab Melatonin (Melatonin) 3 mg PO BEDTIME PRN PRN Reason: INSOMNIA Last Admin: 06/04/19 00:34 Dose: 3 mg Nystatin (Nystatin Oint*) 1 applic TOPICAL DAILY PRN PRN Reason: GROIN RASH Last Admin: 06/04/19 01:32 Dose: 1 applic Ondansetron HCl (Zofran Inj*) 4 mg IV Q4H PRN PRN Reason: NAUSEA/VOMITING Last Admin: 06/03/19 06:13 Dose: 4 mg Pantoprazole Sodium (Protonix Tab*) 40 mg PO DAILY [facility] Last Admin: 06/04/19 09:12 Dose: 40 mg Pharmacy Consult (Zosyn Per Pharmacy*) 1 note FOLLOW UP .ZOSYN PER PHARMACY [facility] Pharmacy Consult (Vancomycin - Dialysis Dosing*) 1 note FOLLOW UP .VANC PER PHARMACY [facility]; Protocol Sertraline HCl (Zoloft*) 50 mg PO DAILY [facility] Last Admin: 06/04/19 09:12 Dose: 50 mg Simethicone (Mylicon Tab*) 80 mg PO Q6H PRN PRN Reason: gas Sodium Chloride (Sodium Chloride 0.65% Nasal [place]*) 1 spray BOTH NARES Q2H PRN PRN Reason: DRY SKIN Last Admin: 06/03/19 01:53 Dose: 1 spray Labs Laboratory Results - last 24 hr 06/04/19 06/04/19 05:09 05:09 WBC 8.2 RBC 3.11 L Hgb 9.9 L Hct 30 L MCV 97 MCH 32 H MCHC 33 RDW 16 H Plt Count 264 MPV 7.3 L Sodium 135 Potassium 3.7 Chloride 97 L Carbon Dioxide 29 Anion Gap 9 BUN 28 H Creatinine 5.66 H Est GFR ( Amer) 9.3 Est GFR (Non-Af Amer) 7.7 BUN/Creatinine Ratio 4.9 L Glucose 89 Calcium 9.3 Phosphorus 4.7 Random Vancomycin 18.3 Physical exam: Temp Pulse Resp BP Pulse Ox 98.7 F 58 16 112/54 100 06/04/19 07:15 06/04/19 07:15 06/04/19 08:00 06/04/19 07:15 06/04/19 07:15 Constitutional: Mild respiratory effort, lying in bed, looking chronically ill Chest auscultation shows few diffuse wheezes and some rhonchi Heart shows S1-S2 regular rate and rhythm no murmurs rubs or gallops Abdomen is soft and nontender Extremities with no edema Assessment and plan: End-stage renal disease patient admitted \with respiratory symptoms. 1. End-stage kidney disease on hemodialysis Saturday. She did not get dialysis yesterday because was off for dialysis nurses. I saw the patient during her hemodialysis treatment today and treatment was running smoothly without hemodynamic complications, but she was not doing well respiratory calderon Discussed dialysis prescription with hemodialysis nurse. 3K bath, 2.5 calcium, same epogen and heparin dose. 2. Respiratory distress : recommend ABG and CXR after dialysis
[2019-06-04] MEDS: Albuterol/Ipratropium NEB.SOL* Albuterol 2.5 MG/Ipratropium 0.5 MG 3 ML INH PRN (14:49)
[2019-06-04] MEDS: Vancomycin(*) 500 MG in NS 0.9% 250 ML* 250 ML IV ONE ×2 (16:38→16:46)
--- NOTE | 2019-06-04 17:47 | PN ---
Subjective Date of Service: 06/04/19 Interval History: Seen several times throughout the day Sleepy this AM but better in the afternoon ABG indicates hypercarbia. Pt is having difficulty keeping on bipap 2/2 anxiety. Discussed at length and she understands risks associated with not using bipapa and will place again now. Cough continues but she feels it is better Objective Active Medications: Acetaminophen (Tylenol Tab*) 650 mg PO Q4H PRN PRN Reason: FEVER/PAIN Last Admin: 06/04/19 16:44 Dose: 650 mg Albuterol/Ipratropium (Duoneb (Albuterol 2.5 Mg/Ipratropium 0.5 Mg)) 1 neb INH Q4H PRN PRN Reason: SOB/WHEEZING Last Admin: 06/04/19 14:49 Dose: 1 neb Aliskiren (Tekturna Tab*) 300 mg PO QAM [facility] Last Admin: 06/04/19 09:13 Dose: 300 mg Amlodipine Besylate (Norvasc Tab*) 5 mg PO DAILY [facility] Last Admin: 06/04/19 09:12 Dose: 5 mg Aspirin (Aspirin 81 Mg Chew Tab*) 81 mg PO DAILY [facility] Last Admin: 06/04/19 09:12 Dose: 81 mg Atorvastatin Calcium (Lipitor*) 20 mg PO DAILY [facility] Last Admin: 06/04/19 09:12 Dose: 20 mg Benzonatate (Tessalon Cap*) 100 mg PO BID PRN PRN Reason: COUGH Last Admin: 06/03/19 20:00 Dose: 100 mg Buspirone HCl (Buspar Tab*) 5 mg PO BID [facility] Last Admin: 06/04/19 09:12 Dose: 5 mg Calcium Acetate (Phoslo Cap*) 1,334 mg PO TID WITH MEALS [facility] Last Admin: 06/04/19 16:57 Dose: Not Given Carvedilol (Coreg Tab*) 50 mg PO BID [facility] Last Admin: 06/04/19 09:13 Dose: Not Given Clopidogrel Bisulfate (Plavix Tab*) 75 mg PO DAILY [facility] Last Admin: 06/04/19 09:12 Dose: 75 mg Guaifenesin (Mucinex*) 600 mg PO BID [facility] Last Admin: 06/04/19 09:12 Dose: 600 mg Heparin Sodium (Porcine) (Heparin Vial(*)) 5,000 units SUBCUT Q8HR [facility] Last Admin: 06/04/19 16:38 Dose: 5,000 units Hydroxyzine HCl (Atarax Tab*) 10 mg PO Q6H PRN PRN Reason: ANXIETY Last Admin: 06/04/19 16:42 Dose: 10 mg Piperacillin Sod/Tazobactam (Sod 3.375 gm/ Sodium Chloride) 100 mls @ 25 mls/ hr IVPB Q12H [facility] Last Admin: 06/04/19 15:53 Dose: 25 mls/hr Vancomycin HCl 500 mg/ Sodium (Chloride) 250 mls @ 166.667 mls/hr IV ONCE@1999; Protocol Stop: 06/04/19 21:29 Lactobacillus Rhamnosus (Lactobacillus Acidophilus*) 1 tab PO DAILY [facility] Last Admin: 06/04/19 09:12 Dose: 1 tab Melatonin (Melatonin) 3 mg PO BEDTIME PRN PRN Reason: INSOMNIA Last Admin: 06/04/19 00:34 Dose: 3 mg Nystatin (Nystatin Oint*) 1 applic TOPICAL DAILY PRN PRN Reason: GROIN RASH Last Admin: 06/04/19 01:32 Dose: 1 applic Ondansetron HCl (Zofran Inj*) 4 mg IV Q4H PRN PRN Reason: NAUSEA/VOMITING Last Admin: 06/03/19 06:13 Dose: 4 mg Pantoprazole Sodium (Protonix Tab*) 40 mg PO DAILY [facility] Last Admin: 06/04/19 09:12 Dose: 40 mg Pharmacy Consult (Zosyn Per Pharmacy*) 1 note FOLLOW UP .ZOSYN PER PHARMACY [facility] Pharmacy Consult (Vancomycin - Dialysis Dosing*) 1 note FOLLOW UP .VANC PER PHARMACY [facility]; Protocol Sertraline HCl (Zoloft*) 50 mg PO DAILY [facility] Last Admin: 06/04/19 09:12 Dose: 50 mg Simethicone (Mylicon Tab*) 80 mg PO Q6H PRN PRN Reason: gas Sodium Chloride (Sodium Chloride 0.65% Nasal [place]*) 1 spray BOTH NARES Q2H PRN PRN Reason: DRY SKIN Last Admin: 06/03/19 01:53 Dose: 1 spray Vital Signs - 8 hr 06/04/19 06/04/19 13:40 16:42 Temperature 98.0 F Pulse Rate 69 Respiratory 24 18 Rate Blood Pressure 130/58 (mmHg) O2 Sat by Pulse 98 Oximetry Oxygen Devices in Use Now: Nasal Cannula Appearance: talking in full sentences, sleeps easily but also easy rouse Eyes: No Scleral Icterus, PERRLA Ears/Nose/Mouth/Throat: NL Teeth, Lips, Gums, Clear Oropharnyx Neck: NL Appearance and Movements; NL JVP, Trachea Midline Respiratory: Symmetrical Chest Expansion and Respiratory Effort, - - trace rales in bases Cardiovascular: RRR Abdominal: NL Sounds; No Tenderness; No Distention, No Hepatosplenomegaly Lymphatic: No Cervical Adenopathy Extremities: No Edema Neurological: Alert and Oriented x 3, - - sleepy but awake and oriented Result Diagrams: 06/04/19 05:09 06/04/19 05:09 Microbiology and Other Data: Microbiology 05/27/19 08:22 Nasal Screen MRSA (PCR) - Final Nasal Mrsa Not Detected Diagnostic Imaging: Patient Name: EDWARDO GUILLEN Medical Record#: [id number] Ordering Physician: Danya Pizarro MD Acct.#: [id number] : 1960 Age: 58 Sex: F Location: EMERGENCY DEPARTMENT Exam Date: 05/27/19437 ADM Status: REG ER Order Information: CHEST AP OR PORT Accession Number: [id number] CPT: 33107 INDICATION: Shortness of breath. COMPARISON: Comparison is made with a prior chest x-ray study from April. TECHNIQUE: A portable view of the chest was obtained. FINDINGS: There is a central venous catheter entering on the right side. The catheter tip projects over the region of the right atrium. The heart is moderately enlarged. There are diffuse prominence of the interstitial markings and small to moderate size bilateral pleural effusions which appear unchanged most consistent with congestive heart failure. IMPRESSION: FINDINGS MOST CONSISTENT WITH CONGESTIVE HEART FAILURE, UNCHANGED. R0 Preliminary Imaging Read R0 <Electronically signed by Rell Baeza MD in OV> 05/27/19 9380 Assess/Plan/Problems-Billing Assessment: 58 year old female with history of polycystic kidney disease and ESRD on hemodialysis MWF, HTN, diastolic HF, depression, that presented to the ED with complaints of increasing SOB found with hypercarbic/hypoxic respiratory failure requiring ICU and BiPAP - Patient Problems (1) Acute hypercapnic respiratory failure Comment: - volume overload and PNA (see below) - complicated by mild encephalopathy on arrival prior to bipap initially in ICU - resolved, lethargy better since admission but sleepy today - hypercarbic again, trial BiPAP - Holding benzodiazepines as thought they contributed to encephalopathy (2) Pneumonia Comment: Suspected RML PNA 1 week URI on Augment at [facility] prior to presentation This stay - after vanco/zoysn stopped (05/29) pt developed worsening respiratory symptoms. Started CTX/azithro 05/31 without improvement. Now improving on vanco/zosyn after changed back on 05/31 (3) (HFpEF) heart failure with preserved ejection fraction Comment: - pulmonary edema present on admission - volume is HD dependent - did not get HD on [place] now inc cough - dialysis again tomorrow, CXR if not improved (4) Anemia Comment: - H/H slightly lower than baseline likely due to critical illness, ESRD and multiple blood draws -no evidence of acute bleed - Secondary to Chronic disease/ESRD - Continue supportive care (5) Anxiety Comment: controlled holding benzos as above 2/2 sedation (6) ESRD (end stage renal disease) Comment: HD last on 06/01/19 (7) Rheumatoid arthritis Comment: - Longstanding chronic pain 2/2 RA - Currently controlled (8) DVT prophylaxis Comment: - HSQ Status and Disposition: Inpatient.
[2019-06-04] MEDS ORDERED: Vancomycin(*) 500 MG in NS 0.9% 250 ML* 250 ML IV ONE (20:00)
[2019-06-05] MEDS: ZOSYN 3.375 GM Q12H per EXTENDED INFUSION IVPB SCH ×4 (02:05→17:38)
[2019-06-05] MEDS: Acetaminophen TAB* 325 MG PO PRN ×2 (03:13→15:19)
[2019-06-05] MEDS: Heparin VIAL(*) 5000 UNITS/ML VIAL (FIVE THOUSAND) SUBCUT SCH ×3 (05:11→22:16)
[2019-06-05] MEDS: hydrOXYzine HCL TAB* 10 MG PO PRN (09:48)
[2019-06-05] MEDS ORDERED: Heparin DIALYSIS ONLY(*) 1,000 UNITS/ML VIAL DIALYSIS ONE (10:00)
[2019-06-05] MEDS ORDERED: EPOETIN ALFA-EPBX * 4,000 UNIT/ML VIAL IV ONE (10:00)
[2019-06-05] MEDS: Ondansetron INJ* 2 MG/ML VIAL IV PRN (10:06)
[2019-06-05] MEDS: Aliskiren TAB* 300 MG PO SCH (10:11)
[2019-06-05] MEDS: busPIRone TAB* 5 MG PO SCH ×2 (10:11→20:01)
[2019-06-05] MEDS: Atorvastatin* 20 MG TAB PO SCH (10:12)
[2019-06-05] MEDS: amLODIPine TAB* 5 MG PO SCH (10:12)
[2019-06-05] MEDS: Sertraline* 50 MG TAB PO SCH (10:13)
[2019-06-05] MEDS: Pantoprazole TAB * 40 MG TAB PO SCH (10:13)
[2019-06-05] MEDS: Carvedilol TAB* 25 MG PO SCH ×2 (10:14→20:01)
[2019-06-05] MEDS: Aspirin 81 mg CHEW TAB* 81 MG TAB.CHEW PO SCH (10:15)
[2019-06-05] MEDS: Lactobacillus Acidophilus* 1 TAB PO SCH (10:15)
[2019-06-05] MEDS: guaiFENesin ER TAB 600 MG PO SCH ×2 (10:15→20:01)
[2019-06-05] MEDS: Clopidogrel TAB* 75 MG PO SCH (10:15)
[2019-06-05] MEDS: Calcium Acetate CAP* 667 MG PO SCH ×3 (10:53→17:33)
[2019-06-05 12:41] LABS: INR 1.19 (0.82-1.09)
[2019-06-05] MEDS ORDERED: Zosyn per Pharmacy* NOTE FOLLOW UP SCH (16:00)
[2019-06-05] MEDS ORDERED: Vancomycin per Pharmacy* NOTE FOLLOW UP SCH (16:00)
[2019-06-05] MEDS ORDERED: Vancomycin(*) 500 MG in NS 0.9% 250 ML* 250 ML IV ONE (16:30)
[2019-06-05] MEDS ORDERED: ZOSYN 3.375 GM Q12H per EXTENDED INFUSION IVPB SCH ×2 (16:30)
--- NOTE | 2019-06-05 16:56 | PN ---
Progress Note - Progress Note Date of Service: 06/05/19 Note: Chief complaint: End-stage kidney disease Interval history: Beth is not doing very well today. She developed hypoxemic and hypercapnic respiratory failure yesterday, and she is now on BiPAP which she tolerates well. I saw the patient during dialysis. Dialysis treatment was going well without any hemodynamic instability. Beth opened her eyes and nodded her head yes when I asked her if the biPAP is improving her breathing. Chest x-ray done yesterday showed a large left pleural effusion. meds: Acetaminophen (Tylenol Tab*) 650 mg PO Q4H PRN PRN Reason: FEVER/PAIN Last Admin: 06/05/19 15:19 Dose: 650 mg Albuterol/Ipratropium (Duoneb (Albuterol 2.5 Mg/Ipratropium 0.5 Mg)) 1 neb INH Q4H PRN PRN Reason: SOB/WHEEZING Last Admin: 06/04/19 14:49 Dose: 1 neb Aliskiren (Tekturna Tab*) 300 mg PO QAM [facility] Last Admin: 06/05/19 10:11 Dose: 300 mg Amlodipine Besylate (Norvasc Tab*) 5 mg PO DAILY [facility] Last Admin: 06/05/19 10:12 Dose: 5 mg Aspirin (Aspirin 81 Mg Chew Tab*) 81 mg PO DAILY [facility] Last Admin: 06/05/19 10:15 Dose: 81 mg Atorvastatin Calcium (Lipitor*) 20 mg PO DAILY [facility] Last Admin: 06/05/19 10:12 Dose: 20 mg Benzonatate (Tessalon Cap*) 100 mg PO BID PRN PRN Reason: COUGH Last Admin: 06/03/19 20:00 Dose: 100 mg Buspirone HCl (Buspar Tab*) 5 mg PO BID [facility] Last Admin: 06/05/19 10:11 Dose: 5 mg Calcium Acetate (Phoslo Cap*) 1,334 mg PO TID WITH MEALS [facility] Last Admin: 06/05/19 15:05 Dose: Not Given Carvedilol (Coreg Tab*) 50 mg PO BID [facility] Last Admin: 06/05/19 10:14 Dose: 50 mg Clopidogrel Bisulfate (Plavix Tab*) 75 mg PO DAILY [facility] Last Admin: 06/05/19 10:15 Dose: 75 mg Guaifenesin (Mucinex*) 600 mg PO BID [facility] Last Admin: 06/05/19 10:15 Dose: 600 mg Heparin Sodium (Porcine) (Heparin Vial(*)) 5,000 units SUBCUT Q8HR [facility] Last Admin: 06/05/19 15:20 Dose: 5,000 units Hydroxyzine HCl (Atarax Tab*) 10 mg PO Q6H PRN PRN Reason: ANXIETY Last Admin: 06/05/19 09:48 Dose: 10 mg Vancomycin HCl 500 mg/ Sodium (Chloride) 250 mls @ 166.667 mls/hr IV ONCE ONE Stop: 06/05/19 17:59 Piperacillin Sod/Tazobactam (Sod 3.375 gm/ Sodium Chloride) 100 mls @ 25 mls/ hr IVPB Q12H [facility] Lactobacillus Rhamnosus (Lactobacillus Acidophilus*) 1 tab PO DAILY [facility] Last Admin: 06/05/19 10:15 Dose: 1 tab Melatonin (Melatonin) 3 mg PO BEDTIME PRN PRN Reason: INSOMNIA Last Admin: 06/04/19 21:49 Dose: 3 mg Nystatin (Nystatin Oint*) 1 applic TOPICAL DAILY PRN PRN Reason: GROIN RASH Last Admin: 06/04/19 21:57 Dose: 1 applic Ondansetron HCl (Zofran Inj*) 4 mg IV Q4H PRN PRN Reason: NAUSEA/VOMITING Last Admin: 06/05/19 10:06 Dose: 4 mg Pantoprazole Sodium (Protonix Tab*) 40 mg PO DAILY [facility] Last Admin: 06/05/19 10:13 Dose: 40 mg Pharmacy Consult (Vancomycin Per Pharmacy*) 1 note FOLLOW UP .VANC PER PHARMACY [facility]; Protocol Pharmacy Consult (Zosyn Per Pharmacy*) 1 note FOLLOW UP .ZOSYN PER PHARMACY [facility] Sertraline HCl (Zoloft*) 50 mg PO DAILY [facility] Last Admin: 06/05/19 10:13 Dose: 50 mg Simethicone (Mylicon Tab*) 80 mg PO Q6H PRN PRN Reason: gas Sodium Chloride (Sodium Chloride 0.65% Nasal [place]*) 1 spray BOTH NARES Q2H PRN PRN Reason: DRY SKIN Last Admin: 06/03/19 01:53 Dose: 1 spray Physical exam Temp Pulse Resp BP SpO2 FiO2 98.1 F 66 25 117/61 92 45 06/05/19 15:15 06/05/19 15:15 06/05/19 15:15 06/05/19 15:15 06/05/19 15:15 05/29 05:59 Constitutional: Patient in mild respiratory distress on BiPAP, sleepy but arousable Chest: Heart auscultation anteriorly Abdomen soft nontender Extremities without edema. labs: Laboratory Results - last 24 hr 06/05/19 06/05/19 06:28 12:25 INR (Anticoag Therapy) 1.19 H ABG pH 7.29 L ABG pCO2 61 H ABG pO2 58 L* ABG HCO3 25.7 ABG O2 Saturation 93.7 L ABG Base Excess 1.2 Intake & Output 06/03/19 06/04/19 06/05/19 06/06/19 06:59 06:59 06:59 06:59 Intake Total 800 110 665 100 Output Total 0 Balance 800 110 665 100 Weight 58.287 kg 58.786 kg 57.788 kg Intake: IV Fluids 60 ABX - ZOSYN 60 IVPB 200 90 425 100 ABX - ZOSYN 200 90 20 Antibiotics 405 100 Oral 540 20 240 0 Output: Urine 0 Other: # Bowel Movements 1 1 Estimated Stool Amount Medium Medium # Voids 0 Assessment and plan: 1. End-stage kidney disease maintenance hemodialysis Saturday. I saw the patient during maintenance hemodialysis today. Treatment was progressing well without hemodynamic instability. 2. Acute hypercapnic and hypoxemic respiratory failure due to left sided pleural effusion. Patient on BiPAP. She will need diagnostic and therapeutic pleurocentesis. Further workup as per primary team. 3. Deconditioning
[2019-06-05] MEDS ORDERED: traMADol TAB* 50 MG PO ONE (17:58)
[2019-06-06] MEDS: ZOSYN 3.375 GM Q12H per EXTENDED INFUSION IVPB SCH ×8 (05:25→22:33)
[2019-06-06] MEDS: Heparin VIAL(*) 5000 UNITS/ML VIAL (FIVE THOUSAND) SUBCUT SCH ×3 (05:25→22:28)
[2019-06-06] MEDS: Calcium Acetate CAP* 667 MG PO SCH ×3 (08:41→21:52)
[2019-06-06] MEDS: Aliskiren TAB* 300 MG PO SCH (08:46)
[2019-06-06] MEDS: amLODIPine TAB* 5 MG PO SCH (08:47)
[2019-06-06] MEDS: Aspirin 81 mg CHEW TAB* 81 MG TAB.CHEW PO SCH (08:48)
[2019-06-06] MEDS: Clopidogrel TAB* 75 MG PO SCH (08:48)
[2019-06-06] MEDS: busPIRone TAB* 5 MG PO SCH (08:48)
[2019-06-06] MEDS: Sertraline* 50 MG TAB PO SCH (08:48)
[2019-06-06] MEDS: Lactobacillus Acidophilus* 1 TAB PO SCH (08:49)
[2019-06-06] MEDS: guaiFENesin ER TAB 600 MG PO SCH (08:49)
[2019-06-06] MEDS: Atorvastatin* 20 MG TAB PO SCH (08:49)
[2019-06-06] MEDS: Carvedilol TAB* 25 MG PO SCH ×2 (08:49→22:28)
[2019-06-06] MEDS: Pantoprazole TAB * 40 MG TAB PO SCH (08:49)
[2019-06-06] MEDS: Acetaminophen TAB* 325 MG PO PRN (09:01)
--- NOTE | 2019-06-06 13:26 | PN ---
Subjective Date of Service: 06/06/19 Interval History: Still feels tired Able to tolerate the BiPAP overnight Cough continues Breathing no worse Objective Active Medications: Acetaminophen (Tylenol Tab*) 650 mg PO Q4H PRN PRN Reason: FEVER/PAIN Last Admin: 06/06/19 09:01 Dose: 650 mg Albuterol/Ipratropium (Duoneb (Albuterol 2.5 Mg/Ipratropium 0.5 Mg)) 1 neb INH Q4H PRN PRN Reason: SOB/WHEEZING Last Admin: 06/04/19 14:49 Dose: 1 neb Aliskiren (Tekturna Tab*) 300 mg PO QAM [facility] Last Admin: 06/06/19 08:46 Dose: 300 mg Amlodipine Besylate (Norvasc Tab*) 5 mg PO DAILY [facility] Last Admin: 06/06/19 08:47 Dose: 5 mg Aspirin (Aspirin 81 Mg Chew Tab*) 81 mg PO DAILY [facility] Last Admin: 06/06/19 08:48 Dose: 81 mg Atorvastatin Calcium (Lipitor*) 20 mg PO DAILY [facility] Last Admin: 06/06/19 08:49 Dose: 20 mg Benzonatate (Tessalon Cap*) 100 mg PO BID PRN PRN Reason: COUGH Last Admin: 06/03/19 20:00 Dose: 100 mg Buspirone HCl (Buspar Tab*) 5 mg PO BID [facility] Last Admin: 06/06/19 08:48 Dose: 5 mg Calcium Acetate (Phoslo Cap*) 1,334 mg PO TID WITH MEALS [facility] Last Admin: 06/06/19 08:41 Dose: 1,334 mg Carvedilol (Coreg Tab*) 50 mg PO BID [facility] Last Admin: 06/06/19 08:49 Dose: 50 mg Clopidogrel Bisulfate (Plavix Tab*) 75 mg PO DAILY [facility] Last Admin: 06/06/19 08:48 Dose: 75 mg Guaifenesin (Mucinex*) 600 mg PO BID [facility] Last Admin: 06/06/19 08:49 Dose: 600 mg Heparin Sodium (Porcine) (Heparin Vial(*)) 5,000 units SUBCUT Q8HR [facility] Last Admin: 06/06/19 05:25 Dose: Not Given Hydroxyzine HCl (Atarax Tab*) 10 mg PO Q6H PRN PRN Reason: ANXIETY Last Admin: 06/05/19 09:48 Dose: 10 mg Piperacillin Sod/Tazobactam (Sod 3.375 gm/ Sodium Chloride) 100 mls @ 25 mls/ hr IVPB Q12H [facility] Last Admin: 06/06/19 05:25 Dose: 25 mls/hr Lactobacillus Rhamnosus (Lactobacillus Acidophilus*) 1 tab PO DAILY [facility] Last Admin: 06/06/19 08:49 Dose: 1 tab Melatonin (Melatonin) 3 mg PO BEDTIME PRN PRN Reason: INSOMNIA Last Admin: 06/04/19 21:49 Dose: 3 mg Nystatin (Nystatin Oint*) 1 applic TOPICAL DAILY PRN PRN Reason: GROIN RASH Last Admin: 06/04/19 21:57 Dose: 1 applic Ondansetron HCl (Zofran Inj*) 4 mg IV Q4H PRN PRN Reason: NAUSEA/VOMITING Last Admin: 06/05/19 10:06 Dose: 4 mg Pantoprazole Sodium (Protonix Tab*) 40 mg PO DAILY [facility] Last Admin: 06/06/19 08:49 Dose: 40 mg Pharmacy Consult (Vancomycin Per Pharmacy*) 1 note FOLLOW UP .VANC PER PHARMACY [facility]; Protocol Pharmacy Consult (Zosyn Per Pharmacy*) 1 note FOLLOW UP .ZOSYN PER [facility]ARMACY [facility] Sertraline HCl (Zoloft*) 50 mg PO DAILY [facility] Last Admin: 06/06/19 08:48 Dose: 50 mg Simethicone (Mylicon Tab*) 80 mg PO Q6H PRN PRN Reason: gas Sodium Chloride (Sodium Chloride 0.65% Nasal [place]*) 1 spray BOTH NARES Q2H PRN PRN Reason: DRY SKIN Last Admin: 06/03/19 01:53 Dose: 1 spray Vital Signs - 8 hr 06/06/19 06/06/19 06/06/19 07:15 08:00 11:15 Temperature 98.2 F 97.8 F Pulse Rate 70 62 Respiratory 18 18 16 Rate Blood Pressure 121/59 96/48 (mmHg) O2 Sat by Pulse 96 95 Oximetry 06/06/19 13:11 Temperature Pulse Rate 74 Respiratory Rate Blood Pressure 92/50 (mmHg) O2 Sat by Pulse Oximetry Oxygen Devices in Use Now: Nasal Cannula Appearance: sleepy but interactive, NAD Eyes: No Scleral Icterus, PERRLA Ears/Nose/Mouth/Throat: NL Teeth, Lips, Gums, Clear Oropharnyx Neck: NL Appearance and Movements; NL JVP Respiratory: - - decreased throughout, rales b/l bases and right middle Cardiovascular: RRR Abdominal: NL Sounds; No Tenderness; No Distention, No Hepatosplenomegaly Lymphatic: No Cervical Adenopathy Extremities: No Edema Skin: No Rash or Ulcers Neurological: Alert and Oriented x 3 Result Diagrams: 06/04/19 05:09 06/04/19 05:09 Microbiology and Other Data: Microbiology 05/27/19 08:22 Nasal Screen MRSA (PCR) - Final Nasal Mrsa Not Detected Diagnostic Imaging: Patient Name: EDWARDO GUILLEN Medical Record#: [id number] Ordering Physician: Danya Pizarro MD Acct.#: [id number] : 1960 Age: 58 Sex: F Location: EMERGENCY DEPARTMENT Exam Date: 05/27/19437 ADM Status: REG ER Order Information: CHEST AP OR PORT Accession Number: [id number] CPT: 63701 INDICATION: Shortness of breath. COMPARISON: Comparison is made with a prior chest x-ray study from April. TECHNIQUE: A portable view of the chest was obtained. FINDINGS: There is a central venous catheter entering on the right side. The catheter tip projects over the region of the right atrium. The heart is moderately enlarged. There are diffuse prominence of the interstitial markings and small to moderate size bilateral pleural effusions which appear unchanged most consistent with congestive heart failure. IMPRESSION: FINDINGS MOST CONSISTENT WITH CONGESTIVE HEART FAILURE, UNCHANGED. R0 Preliminary Imaging Read R0 <Electronically signed by Rell Baeza MD in OV> 05/27/19 0497 Assess/Plan/Problems-Billing Assessment: 58 year old female with history of polycystic kidney disease and ESRD on hemodialysis MWF, HTN, diastolic HF, depression, that presented to the ED with complaints of increasing SOB found with hypercarbic/hypoxic respiratory failure requiring ICU and BiPAP with stay notable for PNA - Patient Problems (1) Acute hypercapnic respiratory failure Comment: - volume overload and PNA (see below) - complicated by mild encephalopathy on arrival prior to bipap initially in ICU - resolved, lethargy better since admission but remains sleepy - hypercarbic again - she is having trouble maintaining the BiPAP on. - Plan on repeat ABG if she can tolerate BiPAP. - Holding benzodiazepines as thought they contributed to encephalopathy (2) Pneumonia Comment: CT chest on 06/05 revealing for multifocal PNA - suspect large contribution to poor improvent despite Vanc/Zosyn - Obstruction of left mainstem bronchus - pulmonary constult to discuss bronch This stay - after vanco/zoysn stopped (05/29) pt developed worsening respiratory symptoms. Started CTX/azithro 05/31 without improvement. Now continues on vanco/zosyn with some improvement after changed back on 05/31 but stagnation since then (3) (HFpEF) heart failure with preserved ejection fraction Comment: - pulmonary edema present on admission - volume is HD dependent - Appears euvolemic (4) Anemia Comment: - H/H slightly lower than baseline likely due to critical illness, ESRD and multiple blood draws -no evidence of acute bleed - Secondary to Chronic disease/ESRD - Continue supportive care (5) Anxiety Comment: controlled holding benzos as above 2/2 sedation (6) ESRD (end stage renal disease) Comment: HD sat/sat/sat (7) Rheumatoid arthritis Comment: - Longstanding chronic pain 2/2 RA - Currently controlled (8) DVT prophylaxis Comment: - HSQ Status and Disposition: Inpatient.
[2019-06-06] MEDS ORDERED: Vancomycin - DIALYSIS DOSING* NOTE FOLLOW UP SCH (16:00)
--- NOTE | 2019-06-06 17:41 | PN ---
Date of Service: 06/06/19 Vital Signs: Temp Pulse Resp BP SpO2 FiO2 99 F 64 21 98/50 94 45 06/06/19 15:15 06/06/19 15:04 06/06/19 15:04 06/06/19 15:04 06/06/19 15:04 06/06 15:04 Physical Exam: Gen:nad on bipap HEENT:on bipap, Lungs: decreased breath sounds R>L Cardiac: s1, s2 Abdomen: soft Extremities: no edema Neuro:alert and aware Fluid Balance (Past 24 Hours): I= O= Net Intake & Output 06/04/19 06/05/19 06/06/19 06/07/19 06:59 06:59 06:59 06:59 Intake Total 110 665 165 170 Output Total 0 0 Balance 110 665 165 170 Weight 129 lb 9.6 oz 127 lb 6.4 oz Intake: IVPB 90 425 100 60 ABX - ZOSYN 90 20 60 Antibiotics 405 100 Oral 20 240 65 110 Output: Urine 0 0 Other: # Bowel Movements 1 1 Estimated Stool Amount Medium Medium # Voids 0 Labs: Laboratory Results - last 24 hr 06/06/19 13:55 Patient Temperature Not Reportable ABG pH 7.20 L ABG pH (Temp Correct) Not Reportable ABG pCO2 73 H* ABG pCO2 (Temp Corrct Not Reportable ABG pO2 58 L* ABG pO2 (Temp Correct Not Reportable ABG HCO3 23.5 ABG O2 Saturation 94.9 ABG Base Excess -1.7 Respiration Rate 12 O2 Delivery Device bipap Ventilator Type Not Reportable Vent Mode Not Reportable FiO2 45 Inspiratory Time Not Reportable PEEP Not Reportable Pressure Support Not Reportable Pressure Control Not Reportable EPAP 5 IPAP 10 BiPAP Not Reportable Plan: admitted 05/27 58 year old female with history of polycystic kidney disease and ESRD on hemodialysis MWF, HTN, diastolic HF, depression, that presented to the ED with complaints of increasing SOB found with hypercarbic/hypoxic respiratory failure requiring ICU and BiPAP with stay notable for PNA. Pna has progressively worsened notable on repeated imaging. Patient was on the floor and now transferred to ICU as her work of breathing has significantly worsened. Patient is full code. CT chest on 06/05 revealing for multifocal PNA R>L- on Vanc/Zosyn. acute hypoxic hypercapnic respiratory failure due to pna +/- sedative use, possible aspiration patient was on bipap however could not expectorate - will try nasal canula with co2 monitor abg q6 hrs patient has good cough will keep on co2 monitor and nc for o2. chest pt q1 hour will hold all sedatives at this time npo even for medications flu neg high risk of intubation will need speech and swallow eval ESRD with pulm edema -mild to mod effusion will need hd for volume removal with scheduled HD GI ppx due to multiorgan dysfunction dvt ppx Patient is poor prognosis, high risk for intubation. Discussed at length with family. Patient is full code. Critical Care Time: 45 min
[2019-06-06] MEDS ORDERED: Succinylcholine* 20 MG/ML 10 ML VIAL ONE (17:58)
[2019-06-06] MEDS ORDERED: Norepinephrine 16MCG/ML IVPRE* 4,000 MCG/250 ML BAG IV ONE (18:01)
[2019-06-06] MEDS ORDERED: fentaNYL* 50 MCG/ML 5 ML VIAL (250 MCG VIAL) ONE (18:12)
[2019-06-06] MEDS ORDERED: Propofol* 10 MG/ML 20 ML BTL ONE (18:14)
[2019-06-06] MEDS ORDERED: Propofol* 100 ML ONE (18:46)
[2019-06-06] MEDS: Propofol* 100 ML IV SCH ×2 (18:48→23:33)
[2019-06-06] MEDS ORDERED: Norepinephrine 16MCG/ML IVPRE* 4,000 MCG/250 ML BAG IV SCH (19:00)
[2019-06-06] MEDS: fentaNYL INFUSION 50 MCG/ML* 2,500 MCG/50 ML BAG IV SCH (19:07)
[2019-06-06] MEDS: Chlorhexidine MOUTHWASH 0.12%* 15 ML UDC TOPICAL SCH (23:32)
[2019-06-07] MEDS: Chlorhexidine MOUTHWASH 0.12%* 15 ML UDC TOPICAL SCH ×6 (02:01→20:41)
[2019-06-07] MEDS ORDERED: Acetaminophen ADULT LIQ* 650 MG/20.3 ML UDC NG TUBE PRN (02:30)
[2019-06-07] MEDS: Propofol* 100 ML IV SCH ×2 (03:45→12:16)
[2019-06-07 05:17] LABS: ABS Basophils 0.1 10^3/ul (0-0.2); ABS Eosinophils 0.3 10^3/ul (0-0.6); ABS Lymphocytes 1.8 10^3/ul (1.0-4.8); ABS Monocytes 0.9 10^3/ul (0-0.8); ABS Neutrophils 8.5 10^3/ul (1.5-7.7); ABS Nucleated RBC 0.1 10^3/ul; Eosinophil % 2.2 %; Hematocrit 30 % (35-47); Hemoglobin 9.8 g/dL (12.0-16.0); Lymphocyte % 15.5 %; Mean Corpuscular HGB Conc 32 g/dL (31-36); Mean Corpuscular Hemoglobin 31 pg (27-31); Mean Corpuscular Volume 96 fL (80-97); Mean Platelet Volume 7.9 fL (7.4-10.4); Nucleated Red Blood Cells % 0.5; Platelet Count 200 10^3/uL (150-450); Red Blood Count 3.16 10^6 /uL (3.70-4.87); Red Cell Distribution Width 16 % (10-15); White Blood Count 11.5 10^3/uL (3.5-10.8)
[2019-06-07 05:30] LABS: BUN/Creatinine Ratio 3.8 (8-20); Calcium 8.8 mg/dL (8.6-10.3); EGFR African American 14.3 (>60); EGFR Non-African American 11.8 (>60); Potassium 3.3 mmol/L (3.5-5.0)
[2019-06-07] MEDS: Heparin VIAL(*) 5000 UNITS/ML VIAL (FIVE THOUSAND) SUBCUT SCH ×3 (05:55→20:41)
[2019-06-07] MEDS: ZOSYN 3.375 GM Q12H per EXTENDED INFUSION IVPB SCH ×4 (08:08→20:41)
[2019-06-07] MEDS: Sertraline* 50 MG TAB PO SCH (10:57)
[2019-06-07] MEDS: Aspirin 81 mg CHEW TAB* 81 MG TAB.CHEW PO SCH (10:57)
[2019-06-07] MEDS: Lactobacillus Acidophilus* 1 TAB PO SCH (10:57)
[2019-06-07] MEDS: Clopidogrel TAB* 75 MG PO SCH (10:57)
[2019-06-07] MEDS: Pantoprazole IV* 40 MG IV SCH (10:58)
[2019-06-07] MEDS: Docusate LIQ* 100 MG/10 ML UDC PO SCH (10:58)
[2019-06-07] MEDS: Carvedilol TAB* 25 MG PO SCH (12:04)
--- NOTE | 2019-06-07 12:44 | PN ---
Date of Service: 06/07/19 Vital Signs: Temp Pulse Resp BP SpO2 FiO2 98.8 F 74 20 107/66 99 35 06/07/19 11:39 06/07/19 12:00 06/07/19 12:00 06/07/19 12:00 06/07/19 12:00 06/07 12:38 Physical Exam: Gen:nad HEENT: intubated Lungs:increased aeration on Right, better than yesterday Cardiac: s1, s2 Abdomen: soft, nontender, nondistended Extremities: no edema Neuro:chemically sedated Fluid Balance (Past 24 Hours): I= O= Net Intake & Output 06/05/19 06/06/19 06/07/19 06/08/19 06:59 06:59 06:59 06:59 Intake Total 665 165 563.4 601 Output Total 0 0 0 Balance 665 165 563.4 601 Weight 127 lb 6.4 oz 128 lb 9 oz Intake: IV Fluids 20 362 ABX - ZOSYN 20 NS (0.9%) 362 IVPB 425 100 152 110 ABX - ZOSYN 20 152 110 Antibiotics 405 100 Medicated IV 231.4 129 CC - Propofol/Diprivan 231.4 129 Oral 240 65 110 NG Tube Irrigate Amount 50 Output: Urine 0 0 0 Vides 0 Other: # Bowel Movements 1 0 Estimated Stool Amount Medium Large # Voids 0 Labs: Laboratory Results - last 24 hr 06/06/19 06/06/19 06/07/19 13:55 17:44 02:08 WBC RBC Hgb Hct MCV MCH MCHC RDW Plt Count MPV Neut % (Auto) Lymph % (Auto) Bay % (Auto) Eos % (Auto) Baso % (Auto) Absolute Neuts (auto) Absolute Lymphs (auto) Absolute Monos (auto) Absolute Eos (auto) Absolute Basos (auto) Absolute Nucleated RBC Nucleated RBC % Patient Temperature Not Reportable Not Reportable ABG pH 7.20 L 7.17 L* ABG pH (Temp Correct) Not Reportable Not Reportable ABG pCO2 73 H* 75 H* ABG pCO2 (Temp Corrct Not Reportable Not Reportable ABG pO2 58 L* 109 H ABG pO2 (Temp Correct Not Reportable Not Reportable ABG HCO3 23.5 22.6 ABG O2 Saturation 94.9 99.4 H ABG Base Excess -1.7 -3.0 L Respiration Rate 12 Not Reportable O2 Delivery Device bipap salter Ventilator Type Not Reportable Not Reportable Vent Mode Not Reportable Not Reportable FiO2 45 Not Reportable Inspiratory Time Not Reportable Not Reportable PEEP Not Reportable Not Reportable Pressure Support Not Reportable Not Reportable Pressure Control Not Reportable Not Reportable EPAP 5 Not Reportable IPAP 10 Not Reportable BiPAP Not Reportable Not Reportable Sodium Potassium Chloride Carbon Dioxide Anion Gap BUN Creatinine Est GFR ( Amer) Est GFR (Non-Af Amer) BUN/Creatinine Ratio Glucose POC Glucose (mg/dL) 68 L Calcium 06/07/19 06/07/19 06/07/19 05:02 05:02 05:45 WBC 11.5 H RBC 3.16 L Hgb 9.8 L Hct 30 L MCV 96 MCH 31 MCHC 32 RDW 16 H Plt Count 200 MPV 7.9 Neut % (Auto) 73.4 Lymph % (Auto) 15.5 Bay % (Auto) 8.0 Eos % (Auto) 2.2 Baso % (Auto) 0.9 Absolute Neuts (auto) 8.5 H Absolute Lymphs (auto) 1.8 Absolute Monos (auto) 0.9 H Absolute Eos (auto) 0.3 Absolute Basos (auto) 0.1 Absolute Nucleated RBC 0.1 Nucleated RBC % 0.5 Patient Temperature ABG pH 7.49 H ABG pH (Temp Correct) ABG pCO2 24 L ABG pCO2 (Temp Corrct ABG pO2 220 H ABG pO2 (Temp Correct ABG HCO3 22.4 ABG O2 Saturation 99.7 H ABG Base Excess -3.3 L Respiration Rate O2 Delivery Device Ventilator Type Vent Mode FiO2 Inspiratory Time PEEP Pressure Support Pressure Control EPAP IPAP BiPAP Sodium 133 L Potassium 3.3 L Chloride 100 L Carbon Dioxide 19 L Anion Gap 14 H BUN 15 Creatinine 3.90 H Est GFR ( Amer) 14.3 Est GFR (Non-Af Amer) 11.8 BUN/Creatinine Ratio 3.8 L Glucose 71 POC Glucose (mg/dL) Calcium 8.8 06/07/19 06/07/19 10:22 12:30 WBC RBC Hgb Hct MCV MCH MCHC RDW Plt Count MPV Neut % (Auto) Lymph % (Auto) Bay % (Auto) Eos % (Auto) Baso % (Auto) Absolute Neuts (auto) Absolute Lymphs (auto) Absolute Monos (auto) Absolute Eos (auto) Absolute Basos (auto) Absolute Nucleated RBC Nucleated RBC % Patient Temperature Not Reportable ABG pH ABG pH (Temp Correct) ABG pCO2 ABG pCO2 (Temp Corrct ABG pO2 ABG pO2 (Temp Correct ABG HCO3 ABG O2 Saturation ABG Base Excess Respiration Rate 35 O2 Delivery Device vent Ventilator Type 330 Vent Mode cmv FiO2 80 Inspiratory Time Not Reportable PEEP 5 Pressure Support Not Reportable Pressure Control Not Reportable EPAP Not Reportable IPAP Not Reportable BiPAP Not Reportable Sodium Potassium Chloride Carbon Dioxide Anion Gap BUN Creatinine Est GFR ( Amer) Est GFR (Non-Af Amer) BUN/Creatinine Ratio Glucose POC Glucose (mg/dL) 88 Calcium Plan: admitted 05/27 58 year old female with history of polycystic kidney disease and ESRD on hemodialysis MWF, HTN, diastolic HF, depression, that presented to the ED with complaints of increasing SOB found with hypercarbic/hypoxic respiratory failure requiring ICU and BiPAP with stay notable for PNA. Pna has progressively worsened notable on repeated imaging. Patient was on the floor and now transferred to ICU as her work of breathing has significantly worsened. Patient is full code. CT chest on 06/05 revealing for multifocal PNA R>L- on Vanc/Zosyn. patient was intubated on 06/07 for worsening acute hypoxic hypercapnic respiratory failure. Patient was a difficult intubation requiring anesthesia, multiple attempts were made. acute hypoxic hypercapnic respiratory failure due to pna +/- sedative use, possible aspiration now intubated on 06/07 - very difficult intubation attempted multiple times with anesthesia first with 7.5 then 7 then finally with 6.5 ETT, just immediate to successful intubation surgery was called for emergent cricothyrotomy abg q24 patient has good cough prior to intubation chest pt q4 hour on fentanyl and propofol will restart meds and feeds flu neg will need speech and swallow eval ESRD with pulm edema -mild to mod effusion will need hd for volume removal with scheduled HD GI ppx due to multiorgan dysfunction dvt ppx Patient is poor prognosis, high risk for intubation. Discussed at length with family. Patient is full code. Had lengthy discussion with family regarding the pros and cons of possible extubation vs tracheostomy. Family aware patient is very deconditioned and wanted a few days to make their overall decision to proceed with prossible trach Critical Care Time: 45 min
[2019-06-07] MEDS: Calcium Acetate CAP* 667 MG PO SCH ×4 (13:22→20:40)
[2019-06-07] MEDS: Atorvastatin* 20 MG TAB PO SCH ×2 (13:23→20:41)
[2019-06-07] MEDS: fentaNYL INFUSION 50 MCG/ML* 2,500 MCG/50 ML BAG IV SCH (18:28)
[2019-06-07] MEDS: Nystatin OINT* 15 GM TOPICAL PRN (21:21)
[2019-06-08] MEDS: Propofol* 100 ML IV SCH ×3 (01:15→21:38)
[2019-06-08] MEDS: Chlorhexidine MOUTHWASH 0.12%* 15 ML UDC TOPICAL SCH ×6 (02:04→21:23)
[2019-06-08 05:39] LABS: ABS Basophils 0.1 10^3/ul (0-0.2); ABS Eosinophils 0.6 10^3/ul (0-0.6); ABS Lymphocytes 1.4 10^3/ul (1.0-4.8); ABS Monocytes 0.9 10^3/ul (0-0.8); ABS Neutrophils 8.6 10^3/ul (1.5-7.7); Eosinophil % 5.4 %; Hematocrit 26 % (35-47); Hemoglobin 8.7 g/dL (12.0-16.0); Lymphocyte % 11.9 %; Mean Corpuscular HGB Conc 33 g/dL (31-36); Mean Corpuscular Hemoglobin 32 pg (27-31); Mean Corpuscular Volume 95 fL (80-97); Mean Platelet Volume 7.9 fL (7.4-10.4); Nucleated Red Blood Cells % 0.1; Platelet Count 196 10^3/uL (150-450); Red Blood Count 2.77 10^6 /uL (3.70-4.87); Red Cell Distribution Width 15 % (10-15); White Blood Count 11.6 10^3/uL (3.5-10.8)
[2019-06-08 05:56] LABS: Albumin 2.6 g/dL (3.2-5.2); Albumin/Globulin Ratio 1.1 (1-3); BUN/Creatinine Ratio 4.4 (8-20); EGFR African American 10.9 (>60); Globulin 2.4 g/dL (2-4); Potassium 3.2 mmol/L (3.5-5.0); Total Bilirubin 0.4 mg/dL (0.2-1.0)
[2019-06-08] MEDS ORDERED: Vancomycin Random Level* NOTE FOLLOW UP ONE (06:00)
[2019-06-08] MEDS: Heparin VIAL(*) 5000 UNITS/ML VIAL (FIVE THOUSAND) SUBCUT SCH ×3 (06:17→21:23)
[2019-06-08] MEDS: Calcium Acetate CAP* 667 MG PO SCH ×3 (08:58→20:30)
[2019-06-08] MEDS: Lactobacillus Acidophilus* 1 TAB PO SCH (08:59)
[2019-06-08] MEDS: Clopidogrel TAB* 75 MG PO SCH (08:59)
[2019-06-08] MEDS: Aspirin 81 mg CHEW TAB* 81 MG TAB.CHEW PO SCH (08:59)
[2019-06-08] MEDS: Sertraline* 50 MG TAB PO SCH (08:59)
[2019-06-08] MEDS: Docusate LIQ* 100 MG/10 ML UDC PO SCH (08:59)
[2019-06-08] MEDS: Pantoprazole IV* 40 MG IV SCH (08:59)
[2019-06-08] MEDS: ZOSYN 3.375 GM Q12H per EXTENDED INFUSION IVPB SCH ×4 (09:00→20:30)
--- NOTE | 2019-06-08 09:58 | PN ---
Subjective Date of Service: 06/08/19 Interval History: 58 F with history of PCKD and ESRD on hemodialysis MoWedFri, HTN, HFpEf, depression presented to the ED with increasing SOB found with hypercarbic/ hypoxic respiratory failure requiring ICU and BiPAP with stay notable for PNA; worsening hypoxia requiring intubation and ICU transfer. On IV abx-vanc and zosyn; improving HD #13 on 06/08 ICU transferred on 06/06 Overnight: Hypotensive; got midodrine VS: stable Ventilator mode: CMV rate: 20 TV: 330 PEEP: 5 FiO2: 45 saturation: 100% Objective Active Medications: Acetaminophen (Tylenol Adult Liq*) 650 mg NG TUBE Q4H PRN PRN Reason: FEVER/ PAIN Last Admin: 06/07/19 03:45 Dose: 650 mg Albuterol/Ipratropium (Duoneb (Albuterol 2.5 Mg/Ipratropium 0.5 Mg)) 1 neb INH Q4H PRN PRN Reason: SOB/WHEEZING Last Admin: 06/04/19 14:49 Dose: 1 neb Aspirin (Aspirin 81 Mg Chew Tab*) 81 mg PO DAILY [facility] Last Admin: 06/08/19 08:59 Dose: 81 mg Atorvastatin Calcium (Lipitor*) 20 mg PO BEDTIME [facility] Last Admin: 06/07/19 20:41 Dose: 20 mg Calcium Acetate (Phoslo Cap*) 1,334 mg PO 0800,1200,2000 [facility] Last Admin: 06/08/19 08:58 Dose: 1,334 mg Chlorhexidine Gluconate (Peridex Mouth Wash 0.12%*) 15 ml TOPICAL Q4H [facility] Last Admin: 06/08/19 08:59 Dose: 15 ml Clopidogrel Bisulfate (Plavix Tab*) 75 mg PO DAILY [facility] Last Admin: 06/08/19 08:59 Dose: 75 mg Docusate Sodium (Colace Liq*) 100 mg PO DAILY [facility] Last Admin: 06/08/19 08:59 Dose: Not Given Heparin Sodium (Porcine) (Heparin Vial(*)) 5,000 units SUBCUT Q8HR [facility] Last Admin: 06/08/19 06:17 Dose: 5,000 units Fentanyl Citrate (Fentanyl Infusion Bag 50 Mcg/Ml 50 Ml) 2,500 mcg in 50 mls @ 0 mls/hr IV Q72H [facility]; Protocol Last Admin: 06/07/19 18:28 Dose: 2 mls/hr Propofol (Diprivan*) 100 mls @ 0 mls/hr IV .PER PROTOCOL [facility]; Protocol Last Admin: 06/08/19 01:15 Dose: 8.7 mls/hr Piperacillin Sod/Tazobactam (Sod 3.375 gm/ Sodium Chloride) 100 mls @ 25 mls/ hr IVPB 08,1999 [facility] Last Admin: 06/08/19 09:00 Dose: 25 mls/hr Vancomycin HCl 500 mg/ Sodium (Chloride) 250 mls @ 166.667 mls/hr IVPB ONCE ONE Stop: 06/08/19 16:29 Lactobacillus Rhamnosus (Lactobacillus Acidophilus*) 1 tab PO DAILY [facility] Last Admin: 06/08/19 08:59 Dose: 1 tab Nystatin (Nystatin Oint*) 1 applic TOPICAL DAILY PRN PRN Reason: GROIN RASH Last Admin: 06/07/19 21:21 Dose: 1 applic Pantoprazole Sodium (Protonix Iv*) 40 mg IV DAILY [facility] Last Admin: 06/08/19 08:59 Dose: 40 mg Pharmacy Consult (Vancomycin Per Pharmacy*) 1 note FOLLOW UP .VANC PER PHARMACY [facility]; Protocol Pharmacy Consult (Zosyn Per Pharmacy*) 1 note FOLLOW UP .ZOSYN PER PHARMACY [facility] Pharmacy Consult (Vancomycin - Dialysis Dosing*) 1 note FOLLOW UP . [facility] Pharmacy Consult (Vancomycin Random Level*) 1 note FOLLOW UP ONCE ONE Stop: 06/10/19 06:01 Sertraline HCl (Zoloft*) 50 mg PO DAILY [facility] Last Admin: 06/08/19 08:59 Dose: 50 mg Vital Signs - 8 hr 06/08/19 06/08/19 06/08/19 01:45 02:00 02:15 Temperature Pulse Rate 66 63 65 Respiratory 20 Rate Blood Pressure 144/77 130/68 (mmHg) O2 Sat by Pulse 99 99 98 Oximetry 06/08/19 06/08/19 06/08/19 02:30 02:31 02:45 Temperature Pulse Rate 65 65 Respiratory 20 Rate Blood Pressure 119/63 123/66 (mmHg) O2 Sat by Pulse 98 98 Oximetry 06/08/19 06/08/19 06/08/19 03:00 03:10 03:13 Temperature 98.2 F Pulse Rate 67 68 Respiratory 20 Rate Blood Pressure 127/68 (mmHg) O2 Sat by Pulse 98 98 Oximetry 06/08/19 06/08/19 06/08/19 03:15 03:30 03:45 Temperature Pulse Rate 68 66 67 Respiratory Rate Blood Pressure 116/63 115/63 (mmHg) O2 Sat by Pulse 99 97 98 Oximetry 06/08/19 06/08/19 06/08/19 04:00 04:15 04:30 Temperature Pulse Rate 74 68 70 Respiratory 20 Rate Blood Pressure 128/70 144/86 138/71 (mmHg) O2 Sat by Pulse 99 100 100 Oximetry 06/08/19 06/08/19 06/08/19 04:45 05:00 05:15 Temperature Pulse Rate 69 67 69 Respiratory 20 Rate Blood Pressure 141/77 151/78 146/72 (mmHg) O2 Sat by Pulse 100 100 100 Oximetry 06/08/19 06/08/19 06/08/19 05:30 06:00 06:14 Temperature Pulse Rate 71 72 71 Respiratory 20 Rate Blood Pressure 129/71 140/76 (mmHg) O2 Sat by Pulse 100 100 100 Oximetry 06/08/19 06/08/19 06/08/19 06:30 07:00 07:18 Temperature 100.1 F Pulse Rate 71 81 Respiratory 20 Rate Blood Pressure 148/77 151/79 (mmHg) O2 Sat by Pulse 100 100 Oximetry 06/08/19 06/08/19 06/08/19 07:30 07:54 08:00 Temperature Pulse Rate 69 74 75 Respiratory 20 Rate Blood Pressure 157/81 159/91 (mmHg) O2 Sat by Pulse 100 100 100 Oximetry 06/08/19 06/08/19 06/08/19 08:15 08:30 08:45 Temperature Pulse Rate 76 72 73 Respiratory Rate Blood Pressure 154/78 147/73 147/73 (mmHg) O2 Sat by Pulse 100 100 100 Oximetry 06/08/19 09:00 Temperature Pulse Rate 70 Respiratory 20 Rate Blood Pressure 108/55 (mmHg) O2 Sat by Pulse 100 Oximetry Oxygen Devices in Use Now: Endotracheal Tube, Mechanical Ventilator Exam: Patient is lying on a bed with ET Tube HEENT: intubated neck: No JVD Lungs: clear with no added sounds Heart: Normal in rate and rhythm. S1/S2 heard with no murmur ABdomen: Soft, nondistende and nontender. Normal Bs heard Extremities: No swelling and cyanosis Neuro: sedated Result Diagrams: 06/08/19 05:00 06/08/19 05:00 Microbiology and Other Data: Microbiology 05/27/19 08:22 Nasal Screen MRSA (PCR) - Final Nasal Mrsa Not Detected Diagnostic Imaging: Patient Name: EDWARDO GUILLEN Medical Record#: [id number] Ordering Physician: Danya Pizarro MD Acct.#: [id number] : 1960 Age: 58 Sex: F Location: EMERGENCY DEPARTMENT Exam Date: 05/27/19437 ADM Status: REG ER Order Information: CHEST AP OR PORT Accession Number: [id number] CPT: 55050 INDICATION: Shortness of breath. COMPARISON: Comparison is made with a prior chest x-ray study from April. TECHNIQUE: A portable view of the chest was obtained. FINDINGS: There is a central venous catheter entering on the right side. The catheter tip projects over the region of the right atrium. The heart is moderately enlarged. There are diffuse prominence of the interstitial markings and small to moderate size bilateral pleural effusions which appear unchanged most consistent with congestive heart failure. IMPRESSION: FINDINGS MOST CONSISTENT WITH CONGESTIVE HEART FAILURE, UNCHANGED. R0 Preliminary Imaging Read R0 <Electronically signed by Rell Baeza MD in OV> 05/27/19 4817 Assess/Plan/Problems-Billing Assessment: 58 F with history of PCKD and ESRD on hemodialysis MoWedFri, HTN, HFpEf, depression presented to the ED with increasing SOB found with hypercarbic/ hypoxic respiratory failure requiring ICU and BiPAP with stay notable for PNA; worsening hypoxia requiring intubation and ICU transfer. On IV abx-vanc and zosyn; dialysis today - Patient Problems (1) Acute hypercapnic respiratory failure Current Visit: Yes Status: Acute Code(s): J96.02 - ACUTE RESPIRATORY FAILURE WITH HYPERCAPNIA SNOMED Code(s): 103483212 Comment: -secondary to pneumonia; some component of vulume overload -intubated-difficult intubation-mulitple attmepts; ETT #6.5 -on iv abx- vanco and zosyn- will give abx for total of 10-14 days -did trial of SAT and SBT-passed SAT but failed SBT -PNA improving -has deconditioning -may need tracheostomy; failed bipap (2) (HFpEF) heart failure with preserved ejection fraction Current Visit: Yes Status: Acute Code(s): I50.30 - UNSPECIFIED DIASTOLIC ( CONGESTIVE) HEART FAILURE SNOMED Code(s): 933159504 Comment: -euvolemic at present -last echo in 2018- EF of 50-55% with moderate LA dialtation' (3) ESRD (end stage renal disease) Current Visit: Yes Status: Chronic Priority: Medium Code(s): N18.6 - END STAGE RENAL DISEASE SNOMED Code(s): 44361122 Comment: -HD sat/sat/sat -has hypokalemia- will replete during dialysis (4) DVT prophylaxis Current Visit: Yes Status: Acute Code(s): UMX0805 - SNOMED Code(s): 279640486 Comment: - On Heparin (5) Full code status Current Visit: No Status: Acute Onset Date: 09/08/14 Code(s): Z78.9 - OTHER SPECIFIED HEALTH STATUS SNOMED Code(s): 723792707 Comment: Status and Disposition: Inpatient. from [facility] failed SBT; passed SAT family deciding for need of tracheostomy Attending: Toro Sadlana Attestation Documenting Resident: Amy Morris Supervising Physician: Toro Saldana Attending/Supervising Physician Comment: Agree with above. Patient seen and examined at bedside. Patient passed SAT but failed sbt, once prior to dialysis and after. Patient's son Alex was updated of her situation. Will attempt weaning tomorrow. Patient received HD with 2.4 L removed. Patient received midodrine 10 mg prior to HD Attestation: This service has been performed in part by a resident under the direction of a teaching physician.I, Toro Saldana, performed the service, or was physically present during the critical, or yarbrough portions of the service, furnished by the resident. I participated in the management of the patient.
[2019-06-08] MEDS: fentaNYL INFUSION 50 MCG/ML* 2,500 MCG/50 ML BAG IV SCH (10:04)
[2019-06-08] MEDS ORDERED: EPOETIN ALFA-EPBX * 4,000 UNIT/ML VIAL IV ONE (11:00)
[2019-06-08] MEDS ORDERED: Heparin DIALYSIS ONLY(*) 1,000 UNITS/ML VIAL DIALYSIS ONE (11:00)
--- NOTE | 2019-06-08 14:51 | PN ---
Progress Note - Progress Note Date of Service: 06/08/19 Note: Inpatient acute HD Note Performed by Dr. Arnoldo Tirado, [facility] Nephrology 06/08/2019 She was seen and examined on HD. Shes in MICU, lightly sedated and intubated! She was intubated 06/07 for acute hypercarbic hypoxic respiratory failure. HD Routine: MWF HD Duration: 3 Hr UF Goal: 2 L/Rx Vitals: BP: 120/70 HR: 76/m Blood Flow: 400 cc/min Dialysate Flow: 600 cc/min Bath: K: 3K Ca: 2.5Ca Na: 138 Hco3: 35 Temp: 36 C Dialyzer: Revaclear Max Access: Rt IJ TDC No Access Related Issues Meds with HD: EO Heparin Loading & Maintenance: 2,000 IU bolus then 1,000 IU/Hr except last Hr Tolerates UF well. No Intradialytic Hypotension. She has no LE edema, but CXR showed progressive PNA. CT Chest 06/05 multifocal PNA Rt>Lt She has poor overall prognosis!!
[2019-06-08] MEDS ORDERED: Vancomycin(*) 500 MG in NS 0.9% 250 ML* 250 ML IVPB ONE (15:00)
[2019-06-08] MEDS: Atorvastatin* 20 MG TAB PO SCH (20:30)
[2019-06-09] MEDS: Propofol* 100 ML IV SCH ×3 (02:09→12:09)
[2019-06-09] MEDS: Chlorhexidine MOUTHWASH 0.12%* 15 ML UDC TOPICAL SCH ×6 (03:41→21:00)
[2019-06-09 04:43] LABS: Hematocrit 29 % (35-47); Hemoglobin 9.5 g/dL (12.0-16.0); Mean Corpuscular HGB Conc 33 g/dL (31-36); Mean Corpuscular Hemoglobin 31 pg (27-31); Mean Corpuscular Volume 96 fL (80-97); Mean Platelet Volume 7.7 fL (7.4-10.4); Platelet Count 196 10^3/uL (150-450); Red Blood Count 3.04 10^6 /uL (3.70-4.87); Red Cell Distribution Width 16 % (10-15); White Blood Count 12.4 10^3/uL (3.5-10.8)
[2019-06-09 04:54] LABS: Albumin 2.8 g/dL (3.2-5.2); Albumin/Globulin Ratio 1.1 (1-3); BUN/Creatinine Ratio 3.8 (8-20); Calcium 9.2 mg/dL (8.6-10.3); EGFR African American 20.2 (>60); EGFR Non-African American 16.7 (>60); Globulin 2.6 g/dL (2-4); Potassium 3.1 mmol/L (3.5-5.0); Total Bilirubin 0.4 mg/dL (0.2-1.0); Total Protein 5.4 g/dL (6.4-8.9)
[2019-06-09 05:13] LABS: ABS Basophils 0.2 10^3/ul (0-0.2); ABS Eosinophils 0.5 10^3/ul (0-0.6); ABS Lymphocytes 1.5 10^3/ul (1.0-4.8); ABS Monocytes 0.8 10^3/ul (0-0.8); ABS Neutrophils 9.4 10^3/ul (1.5-7.7); Eosinophil % 4.4 %; Lymphocyte % 12.1 %; Nucleated Red Blood Cells % 0.2
[2019-06-09 05:21] LABS: Magnesium 1.8 mg/dL (1.9-2.7)
[2019-06-09] MEDS: Heparin VIAL(*) 5000 UNITS/ML VIAL (FIVE THOUSAND) SUBCUT SCH ×3 (05:52→21:01)
[2019-06-09] MEDS ORDERED: Potassium Chlor TAB* 20 MEQ TAB.ER PO ONE (06:57)
[2019-06-09] MEDS: Lactobacillus Acidophilus* 1 TAB PO SCH (08:45)
[2019-06-09] MEDS: Aspirin 81 mg CHEW TAB* 81 MG TAB.CHEW PO SCH (08:45)
[2019-06-09] MEDS: ZOSYN 3.375 GM Q12H per EXTENDED INFUSION IVPB SCH ×4 (08:45→20:52)
[2019-06-09] MEDS: Sertraline* 50 MG TAB PO SCH (08:45)
[2019-06-09] MEDS: Clopidogrel TAB* 75 MG PO SCH (08:45)
[2019-06-09] MEDS: Pantoprazole IV* 40 MG IV SCH (08:45)
[2019-06-09] MEDS: Calcium Acetate CAP* 667 MG PO SCH ×3 (09:08→21:01)
--- NOTE | 2019-06-09 09:29 | PN ---
Subjective Date of Service: 06/09/19 Interval History: 58 F with history of PCKD and ESRD on hemodialysis MoWedFri, HTN, HFpEf, depression presented to the ED with increasing SOB found with hypercarbic/ hypoxic respiratory failure requiring ICU and BiPAP with stay notable for PNA; worsening hypoxia requiring intubation and ICU transfer. On IV abx-vanc and zosyn; improving HD #14 on 06/09 ICU transferred on 06/06 Overnight: Vent setting changed to pressure support as patient uncomfortable and vent showing high pressures; also had incontinent of BM Vitals:stable; although hypertensive Ventilator mode: PCV rate: 20 set pressure: 30 TV: around 400 PEEP: 5 FiO2: 40 saturation: 100% End-tidal co2: 31 Objective Active Medications: Acetaminophen (Tylenol Adult Liq*) 650 mg NG TUBE Q4H PRN PRN Reason: FEVER/ PAIN Last Admin: 06/07/19 03:45 Dose: 650 mg Albuterol/Ipratropium (Duoneb (Albuterol 2.5 Mg/Ipratropium 0.5 Mg)) 1 neb INH Q4H PRN PRN Reason: SOB/WHEEZING Last Admin: 06/04/19 14:49 Dose: 1 neb Aspirin (Aspirin 81 Mg Chew Tab*) 81 mg PO DAILY [facility] Last Admin: 06/09/19 08:45 Dose: 81 mg Atorvastatin Calcium (Lipitor*) 20 mg PO BEDTIME [facility] Last Admin: 06/08/19 20:30 Dose: 20 mg Calcium Acetate (Phoslo Cap*) 1,334 mg PO 0800,1200,2000 [facility] Last Admin: 06/08/19 20:30 Dose: 1,334 mg Chlorhexidine Gluconate (Peridex Mouth Wash 0.12%*) 15 ml TOPICAL Q4H [facility] Last Admin: 06/09/19 05:52 Dose: 15 ml Clopidogrel Bisulfate (Plavix Tab*) 75 mg PO DAILY [facility] Last Admin: 06/09/19 08:45 Dose: 75 mg Heparin Sodium (Porcine) (Heparin Vial(*)) 5,000 units SUBCUT Q8HR [facility] Last Admin: 06/09/19 05:52 Dose: 5,000 units Fentanyl Citrate (Fentanyl Infusion Bag 50 Mcg/Ml 50 Ml) 2,500 mcg in 50 mls @ 0 mls/hr IV Q72H [facility]; Protocol Last Admin: 06/08/19 10:04 Dose: 1 mls/hr Propofol (Diprivan*) 100 mls @ 0 mls/hr IV .PER PROTOCOL [facility]; Protocol Last Admin: 06/09/19 07:55 Dose: 17.3 mls/hr Piperacillin Sod/Tazobactam (Sod 3.375 gm/ Sodium Chloride) 100 mls @ 25 mls/ hr IVPB 08,1999 [facility] Stop: 06/09/19 23:59 Last Admin: 06/09/19 08:45 Dose: 25 mls/hr Lactobacillus Rhamnosus (Lactobacillus Acidophilus*) 1 tab PO DAILY [facility] Last Admin: 06/09/19 08:45 Dose: 1 tab Nystatin (Nystatin Oint*) 1 applic TOPICAL DAILY PRN PRN Reason: GROIN RASH Last Admin: 06/07/19 21:21 Dose: 1 applic Pantoprazole Sodium (Protonix Iv*) 40 mg IV DAILY [facility] Last Admin: 06/09/19 08:45 Dose: 40 mg Pharmacy Consult (Vancomycin Per Pharmacy*) 1 note FOLLOW UP .VANC PER PHARMACY [facility]; Protocol Stop: 06/09/19 23:59 Pharmacy Consult (Zosyn Per Pharmacy*) 1 note FOLLOW UP .ZOSYN PER PHARMACY [facility] Stop: 06/09/19 23:59 Pharmacy Consult (Vancomycin - Dialysis Dosing*) 1 note FOLLOW UP . [facility] Stop: 06/09/19 23:59 Sertraline HCl (Zoloft*) 50 mg PO DAILY [facility] Last Admin: 06/09/19 08:45 Dose: 50 mg Vital Signs - 8 hr 06/09/19 06/09/19 06/09/19 01:30 01:45 02:00 Temperature Pulse Rate 73 72 79 Respiratory 20 Rate Blood Pressure 144/73 151/74 156/78 (mmHg) O2 Sat by Pulse 100 99 100 Oximetry 06/09/19 06/09/19 06/09/19 02:15 02:30 02:45 Temperature Pulse Rate 71 72 71 Respiratory 20 Rate Blood Pressure 155/76 162/80 156/77 (mmHg) O2 Sat by Pulse 100 99 99 Oximetry 06/09/19 06/09/19 06/09/19 03:00 03:15 03:30 Temperature Pulse Rate 74 70 70 Respiratory 20 Rate Blood Pressure 168/79 156/74 162/78 (mmHg) O2 Sat by Pulse 100 99 100 Oximetry 06/09/19 06/09/19 06/09/19 03:45 04:00 04:15 Temperature 99.9 F Pulse Rate 71 77 78 Respiratory 20 Rate Blood Pressure 174/85 172/82 149/75 (mmHg) O2 Sat by Pulse 100 100 100 Oximetry 06/09/19 06/09/19 06/09/19 04:30 04:45 05:00 Temperature Pulse Rate 73 72 75 Respiratory 20 Rate Blood Pressure 154/77 152/76 153/75 (mmHg) O2 Sat by Pulse 100 99 99 Oximetry 06/09/19 06/09/19 06/09/19 05:15 05:45 06:00 Temperature Pulse Rate 72 72 73 Respiratory 20 Rate Blood Pressure 153/77 158/76 171/82 (mmHg) O2 Sat by Pulse 99 100 100 Oximetry 06/09/19 07:43 Temperature 99.1 F Pulse Rate Respiratory Rate Blood Pressure (mmHg) O2 Sat by Pulse Oximetry Oxygen Devices in Use Now: Endotracheal Tube, Mechanical Ventilator Exam: Patient is lying on a bed with ET Tube HEENT: intubated neck: No JVD Lungs: squeaky sound heard on right lung Heart: Normal in rate and rhythm. S1/S2 heard with no murmur ABdomen: Soft, nondistende and nontender. Normal Bs heard Extremities: No swelling and cyanosis Neuro: sedated Result Diagrams: 06/09/19 04:15 06/09/19 04:15 Microbiology and Other Data: Microbiology 05/27/19 08:22 Nasal Screen MRSA (PCR) - Final Nasal Mrsa Not Detected Diagnostic Imaging: Patient Name: EDWARDO GUILLEN Medical Record#: [id number] Ordering Physician: Danya Pizarro MD Acct.#: [id number] : 1960 Age: 58 Sex: F Location: EMERGENCY DEPARTMENT Exam Date: 05/27/19437 ADM Status: REG ER Order Information: CHEST AP OR PORT Accession Number: [id number] CPT: 27266 INDICATION: Shortness of breath. COMPARISON: Comparison is made with a prior chest x-ray study from April. TECHNIQUE: A portable view of the chest was obtained. FINDINGS: There is a central venous catheter entering on the right side. The catheter tip projects over the region of the right atrium. The heart is moderately enlarged. There are diffuse prominence of the interstitial markings and small to moderate size bilateral pleural effusions which appear unchanged most consistent with congestive heart failure. IMPRESSION: FINDINGS MOST CONSISTENT WITH CONGESTIVE HEART FAILURE, UNCHANGED. R0 Preliminary Imaging Read R0 <Electronically signed by Rell Baeza MD in OV> 05/27/19 0717 Assess/Plan/Problems-Billing Assessment: 58 F with history of PCKD and ESRD on hemodialysis MoWedFri, HTN, HFpEf, depression presented to the ED with increasing SOB found with hypercarbic/ hypoxic respiratory failure requiring ICU and BiPAP with stay notable for PNA; worsening hypoxia requiring intubation and ICU transfer. On IV abx-vanc and zosyn; On HD - Patient Problems (1) Acute hypercapnic respiratory failure Current Visit: Yes Status: Acute Code(s): J96.02 - ACUTE RESPIRATORY FAILURE WITH HYPERCAPNIA SNOMED Code(s): 339494662 Comment: -secondary to pneumonia; some component of volume overload -intubated-difficult intubation-mulitple attempts; ETT #6.5 -on iv abx- vanco and zosyn- will give abx for total of 10-14 days -did trial of SAT and SBT-passed SAT but failed SBT -PNA improving -has deconditioning -may need tracheostomy; failed bipap -vent changed to PCV -will do trial of SBT today again (2) (HFpEF) heart failure with preserved ejection fraction Current Visit: Yes Status: Acute Code(s): I50.30 - UNSPECIFIED DIASTOLIC ( CONGESTIVE) HEART FAILURE SNOMED Code(s): 136285953 Comment: -euvolemic at present -last echo in 2018- EF of 50-55% with moderate LA dialtation (3) ESRD (end stage renal disease) Current Visit: Yes Status: Chronic Priority: Medium Code(s): N18.6 - END STAGE RENAL DISEASE SNOMED Code(s): 38505536 Comment: -HD sat/sat/sat -has hypokalemia- KCL given -underwent dialysis yesterday -planned for dialysis today again; electrolyte will be repleted during dialysis (4) DVT prophylaxis Current Visit: Yes Status: Acute Code(s): XGD6985 - SNOMED Code(s): 874549720 Comment: - On Heparin (5) Full code status Current Visit: No Status: Acute Onset Date: 09/08/14 Code(s): Z78.9 - OTHER SPECIFIED HEALTH STATUS SNOMED Code(s): 839900480 Comment: Status and Disposition: Inpatient. from [facility] failed SBT; passed SAT family deciding for need of tracheostomy Attending: Toro Saldana Attestation Documenting Resident: Amy Morris Supervising Physician: Toro Saldana Attending/Supervising Physician Comment: patient was seen and examined by the resident and myself. patient received HD today with 3 L removed. Her BP is now more normotensive now that she has had 2 days of fluid removal via HD. intubated on 06/07 - very difficult intubation attempted multiple times with anesthesia first with 7.5 then 7 then finally with 6.5 ETT, just immediate to successful intubation surgery was called for emergent cricothyrotomy Patient is poor prognosis, high risk for intubation. Discussed at length with family. Patient is full code. Discussed case with the anesthesiologist who intubated with me and agrees that attempting to extubate would be dangerous. Had lengthy discussion with family regarding the pros and cons of possible extubation vs tracheostomy. Family aware patient is very deconditioned and wanted a few days to make their overall decision to proceed with possible trach. Currently patient is on asa and plavix she had so far failed her sbt's Attestation: This service has been performed in part by a resident under the direction of a teaching physician.I, Toro Saldana, performed the service, or was physically present during the critical, or yarbrough portions of the service, furnished by the resident. I participated in the management of the patient.
[2019-06-09] MEDS ORDERED: EPOETIN ALFA-EPBX * 4,000 UNIT/ML VIAL IV ONE (12:00)
[2019-06-09] MEDS ORDERED: Heparin DIALYSIS ONLY(*) 1,000 UNITS/ML VIAL DIALYSIS ONE ×2 (12:00→14:30)
--- NOTE | 2019-06-09 14:00 | PN ---
Progress Note - Progress Note Date of Service: 06/09/19 Note: Inpatient acute HD Note Performed by Dr. Arnoldo Tirado, [facility] Nephrology 06/09/2019 She was seen and examined on HD. I spoke to her son, Alex Charles, in length about her condition and overall prognosis and his expectations and the fact that we'll support his choices throughout this ordeal. Shes still in MICU, sedated and intubated! She has been failing weaning trials, and as a matter of fact she was a very difficult intubation, hence concerns were raised regarding possible Tracheostomy , but been deferred per son's request! She was intubated 06/07 for acute hypercarbic hypoxic respiratory failure. CT Chest 06/05 multifocal PNA Rt>Lt on top of fluid overload! She has poor overall prognosis!! HD Routine: MWF HD Duration: 3 Hr UF Goal: 3 L/Rx Vitals: BP: 150/70 dropped 130/70 within 30 min HR: 81/m Blood Flow: 400 cc/min Dialysate Flow: 600 cc/min Bath: K: 3K Ca: 2.5Ca Na: 138 Hco3: 35 Temp: 36 C Dialyzer: Revaclear 300 Access: Rt IJ TDC No Access Related Issues Meds with HD: EPO Heparin Loading & Maintenance: 2,000 IU bolus then 1,000 IU/Hr except last Hr Tolerates UF well. No Intradialytic Hypotension.
[2019-06-09] MEDS: Atorvastatin* 20 MG TAB PO SCH (21:01)
[2019-06-10] MEDS: fentaNYL INFUSION 50 MCG/ML* 2,500 MCG/50 ML BAG IV SCH ×2 (00:37→15:38)
[2019-06-10] MEDS: Chlorhexidine MOUTHWASH 0.12%* 15 ML UDC TOPICAL SCH ×6 (03:15→21:01)
[2019-06-10 05:18] LABS: EGFR African American 26.8 (>60); EGFR Non-African American 22.1 (>60)
[2019-06-10] MEDS: Heparin VIAL(*) 5000 UNITS/ML VIAL (FIVE THOUSAND) SUBCUT SCH ×3 (05:50→21:00)
[2019-06-10] MEDS ORDERED: Vancomycin Random Level* NOTE FOLLOW UP ONE (06:00)
[2019-06-10 06:39] LABS: ABS Basophils 0.1 10^3/ul (0-0.2); ABS Eosinophils 0.5 10^3/ul (0-0.6); ABS Lymphocytes 1.6 10^3/ul (1.0-4.8); ABS Neutrophils 7.5 10^3/ul (1.5-7.7); Eosinophil % 5.1 %; Hematocrit 28 % (35-47); Hemoglobin 9.3 g/dL (12.0-16.0); Lymphocyte % 15.3 %; Mean Corpuscular HGB Conc 33 g/dL (31-36); Mean Corpuscular Hemoglobin 32 pg (27-31); Mean Corpuscular Volume 96 fL (80-97); Mean Platelet Volume 8.2 fL (7.4-10.4); Nucleated Red Blood Cells % 0.1; Platelet Count 192 10^3/uL (150-450); Red Blood Count 2.92 10^6 /uL (3.70-4.87); Red Cell Distribution Width 16 % (10-15); White Blood Count 10.7 10^3/uL (3.5-10.8)
[2019-06-10 06:53] LABS: Albumin 2.8 g/dL (3.2-5.2); Calcium 9.4 mg/dL (8.6-10.3); Globulin 2.8 g/dL (2-4); Potassium 3.5 mmol/L (3.5-5.0); Total Bilirubin 0.4 mg/dL (0.2-1.0); Total Protein 5.6 g/dL (6.4-8.9)
[2019-06-10 07:02] LABS: BUN/Creatinine Ratio 3.5 (8-20)
[2019-06-10 07:35] LABS: Magnesium 1.8 mg/dL (1.9-2.7)
--- NOTE | 2019-06-10 07:55 | PN ---
Subjective Date of Service: 06/10/19 Interval History: 58 F with history of PCKD and ESRD on hemodialysis MoWedFri, HTN, HFpEf, depression presented to the ED with increasing SOB found with hypercarbic/ hypoxic respiratory failure requiring ICU and BiPAP with stay notable for PNA; worsening hypoxia requiring intubation and ICU transfer. On IV abx-vanc and zosyn; improving HD #15 on 06/10 ICU transferred on 06/06 Overnight: No acute overnight events VS: stable Ventilator mode: PCV rate: 20 set pressure: 30 TV: around 400 PEEP: 5 FiO2: 25 saturation: 96% End-tidal co2: 36 Objective Active Medications: Acetaminophen (Tylenol Adult Liq*) 650 mg NG TUBE Q4H PRN PRN Reason: FEVER/ PAIN Last Admin: 06/07/19 03:45 Dose: 650 mg Albuterol/Ipratropium (Duoneb (Albuterol 2.5 Mg/Ipratropium 0.5 Mg)) 1 neb INH Q4H PRN PRN Reason: SOB/WHEEZING Last Admin: 06/04/19 14:49 Dose: 1 neb Aspirin (Aspirin 81 Mg Chew Tab*) 81 mg PO DAILY [facility] Last Admin: 06/09/19 08:45 Dose: 81 mg Atorvastatin Calcium (Lipitor*) 20 mg PO BEDTIME [facility] Last Admin: 06/09/19 21:01 Dose: 20 mg Calcium Acetate (Phoslo Cap*) 1,334 mg PO 0800,1200,2000 [facility] Last Admin: 06/09/19 21:01 Dose: 1,334 mg Chlorhexidine Gluconate (Peridex Mouth Wash 0.12%*) 15 ml TOPICAL Q4H [facility] Last Admin: 06/10/19 05:50 Dose: 15 ml Clopidogrel Bisulfate (Plavix Tab*) 75 mg PO DAILY [facility] Last Admin: 06/09/19 08:45 Dose: 75 mg Heparin Sodium (Porcine) (Heparin Vial(*)) 5,000 units SUBCUT Q8HR [facility] Last Admin: 06/10/19 05:50 Dose: 5,000 units Propofol (Diprivan*) 100 mls @ 0 mls/hr IV .PER PROTOCOL [facility]; Protocol Last Admin: 06/09/19 12:09 Dose: 10.4 mls/hr Fentanyl Citrate (Fentanyl Infusion Bag 50 Mcg/Ml 50 Ml) 2,500 mcg in 50 mls @ 0 mls/hr IV Q72H [facility]; Protocol Last Admin: 06/10/19 00:37 Dose: 2.5 mls/hr Lactobacillus Rhamnosus (Lactobacillus Acidophilus*) 1 tab PO DAILY [facility] Last Admin: 06/09/19 08:45 Dose: 1 tab Nystatin (Nystatin Oint*) 1 applic TOPICAL DAILY PRN PRN Reason: GROIN RASH Last Admin: 06/07/19 21:21 Dose: 1 applic Pantoprazole Sodium (Protonix Iv*) 40 mg IV DAILY [facility] Last Admin: 06/09/19 08:45 Dose: 40 mg Sertraline HCl (Zoloft*) 50 mg PO DAILY [facility] Last Admin: 06/09/19 08:45 Dose: 50 mg Vital Signs - 8 hr 06/09/19 06/10/19 06/10/19 23:53 00:00 00:13 Temperature 100.2 F Pulse Rate 86 76 Respiratory 20 Rate Blood Pressure 142/67 (mmHg) O2 Sat by Pulse 100 95 Oximetry 06/10/19 06/10/19 06/10/19 00:30 00:37 01:00 Temperature Pulse Rate 71 68 Respiratory 20 20 Rate Blood Pressure 93/50 100/55 (mmHg) O2 Sat by Pulse 95 95 Oximetry 06/10/19 06/10/19 06/10/19 01:30 02:00 02:30 Temperature Pulse Rate 68 67 67 Respiratory 20 Rate Blood Pressure 107/55 128/64 128/65 (mmHg) O2 Sat by Pulse 95 96 96 Oximetry 06/10/19 06/10/19 06/10/19 02:44 03:00 03:10 Temperature Pulse Rate 74 82 Respiratory 20 20 Rate Blood Pressure 129/64 (mmHg) O2 Sat by Pulse 96 96 Oximetry 06/10/19 06/10/19 06/10/19 03:30 03:37 04:00 Temperature 98.0 F 98.7 F Pulse Rate 72 72 Respiratory 20 Rate Blood Pressure 118/62 102/56 (mmHg) O2 Sat by Pulse 96 96 Oximetry 06/10/19 06/10/19 06/10/19 04:30 04:59 05:00 Temperature Pulse Rate 68 71 Respiratory 20 Rate Blood Pressure 117/64 123/66 (mmHg) O2 Sat by Pulse 97 96 Oximetry 06/10/19 06/10/19 06/10/19 05:30 05:56 06:00 Temperature Pulse Rate 82 67 Respiratory 20 Rate Blood Pressure 131/70 132/69 (mmHg) O2 Sat by Pulse 98 97 Oximetry 06/10/19 06/10/19 06/10/19 06:30 07:00 07:24 Temperature Pulse Rate 69 68 70 Respiratory 20 20 Rate Blood Pressure 129/67 136/67 (mmHg) O2 Sat by Pulse 97 96 93 Oximetry Oxygen Devices in Use Now: Mechanical Ventilator Exam: Patient is lying on a bed with ET Tube HEENT: intubated neck: No JVD Lungs: squeaky sound heard on right lung; diminished Heart: Normal in rate and rhythm. S1/S2 heard with no murmur Abdomen: Soft, nondistended and nontender. Normal Bs heard Extremities: No swelling and cyanosis Neuro: sedated Result Diagrams: 06/10/19 04:45 06/10/19 06:00 Microbiology and Other Data: Microbiology 05/27/19 08:22 Nasal Screen MRSA (PCR) - Final Nasal Mrsa Not Detected Diagnostic Imaging: Patient Name: EDWARDO GUILLEN Medical Record#: [id number] Ordering Physician: Danya Pizarro MD Acct.#: [id number] : 1960 Age: 58 Sex: F Location: EMERGENCY DEPARTMENT Exam Date: 05/27/19437 ADM Status: REG ER Order Information: CHEST AP OR PORT Accession Number: [id number] CPT: 18930 INDICATION: Shortness of breath. COMPARISON: Comparison is made with a prior chest x-ray study from April. TECHNIQUE: A portable view of the chest was obtained. FINDINGS: There is a central venous catheter entering on the right side. The catheter tip projects over the region of the right atrium. The heart is moderately enlarged. There are diffuse prominence of the interstitial markings and small to moderate size bilateral pleural effusions which appear unchanged most consistent with congestive heart failure. IMPRESSION: FINDINGS MOST CONSISTENT WITH CONGESTIVE HEART FAILURE, UNCHANGED. R0 Preliminary Imaging Read R0 <Electronically signed by Rell Baeza MD in OV> 05/27/19716 Assess/Plan/Problems-Billing Assessment: 58 F with history of PCKD and ESRD on hemodialysis MoWedFri, HTN, HFpEf, depression presented to the ED with increasing SOB found with hypercarbic/ hypoxic respiratory failure requiring ICU and BiPAP with stay notable for PNA; worsening hypoxia requiring intubation and ICU transfer. On IV abx-vanc and zosyn; On HD - Patient Problems (1) Acute hypercapnic respiratory failure Current Visit: Yes Status: Acute Code(s): J96.02 - ACUTE RESPIRATORY FAILURE WITH HYPERCAPNIA SNOMED Code(s): 061972418 Comment: -secondary to pneumonia-bilateral; some component of volume overload -intubated-difficult intubation-mulitple attempts; ETT #6.5 -completed 14 days of iv vanc and zosyn on 06/09 -PNA improving -has deconditioning -may need tracheostomy; failed bipap -vent changed to PCV -failed 2 trials of SBT -SBT daily (2) (HFpEF) heart failure with preserved ejection fraction Current Visit: Yes Status: Acute Code(s): I50.30 - UNSPECIFIED DIASTOLIC ( CONGESTIVE) HEART FAILURE SNOMED Code(s): 384376975 Comment: -euvolemic at present -last echo in 2018- EF of 50-55% with moderate LA dialtation (3) ESRD (end stage renal disease) Current Visit: Yes Status: Chronic Priority: Medium Code(s): N18.6 - END STAGE RENAL DISEASE SNOMED Code(s): 66124626 Comment: -HD sat/sat/sat -HD yesterday- removed 3L -lytes normal except Mg of 1.8; repleting (4) DVT prophylaxis Current Visit: Yes Status: Acute Code(s): OKC3380 - SNOMED Code(s): 070225323 Comment: - On Heparin (5) Full code status Current Visit: No Status: Acute Onset Date: 09/08/14 Code(s): Z78.9 - OTHER SPECIFIED HEALTH STATUS SNOMED Code(s): 901858864 Comment: Status and Disposition: Inpatient. from [facility] failed SBT; passed SAT; if passes SBT will try to extubate family deciding for need of tracheostomy Attending: Penny Noland Attestation Documenting Resident: Sristee Niraula Supervising Physician: Penny Noland Attestation: This service has been performed in part by a resident under the direction of a teaching physician.I, Penny Noland, performed the service, or was physically present during the critical, or yarbrough portions of the service, furnished by the resident. I participated in the management of the patient.
--- NOTE | 2019-06-10 09:29 | PN ---
Date of Service: 06/10/19 - HD 15 Critical Care Services: 58 yo F presents to ED from [facility] on 05/27 with shortness of breath , cough and weakness x 1 week. Not improved with outpatient abx therapy. On evaluation in ED tachypneic to 24. Sats 100%. Physical exam notable for moderate respiratory distress. Bibasilar crackes and rhonchi in RUL present. 2 + edema in lower extremities. WBC 9.0, BUN 28 and Cr 5.08. CXR with increased interstitial markings consistent with fluid overload. EKG NSR. Started on Duonebs. ABG with CO2 retention. Started on BiPAP and admitted to hospitalist/ ICU. Tolerated HD (was scheduled for outpatient that day) without hypotension. Weaned off BiPAP 05/28: Encephalopathy resolved after BiPAP. Repeat ABG shows resolution of CO2 retention. Edema and respiratory status improved after HD. Quinn cultured for fever. Continued on Zosyn and Vancomycin. Hypertension resolved after HD. Pt requested change in code status from DNR/DNI to FULL CODE with trial of intubation. Downgraded from ICU to telemetry floor. 05/29: Noted to have excessive upper airway secretions. HD again with 1L removal. Blood cultures NGTD; antibiotics discontinued. 05/30: Feeling worse. More short of breath and cough. Tachypnea and crackles now noted. ABX restarted (Ceftriaxone and Azithromycin). Pulmonary edema recurred. 05/31: More fatigued. Refusing food today. ABX changed back to Vancomycin and Zosyn 06/01: HD. 06/03: couldn't sleep because of cough. 06/04: Appears worse. Sleepy and short of breath. ABG with hypercarbia. Difficulty tolerating BiPAP due to anxiety. 06/05: Nephrology recommending diagnostic and therapeutic thoracentesis of left pleural cavity. 06/06: Transferred to ICU for increasing hypercarbia and hypoxia. Amlodipine discontinued for hypotension. Benzodiazepines held as it was felt that they might be contributing to encephalopathy. CXR with obstruction of left mainstem bronchus by mucus plug. 06/07: Intubated for acute on chronic hypoxic and hypercarbic respiratory failure. Postintubation RICKEY reexpanded but LLL with postobstructive infiltrate presumed pneumonia. Difficult intubation, airway anterior 06/08: failed SBT. HD done. 06/09: ABX stopped as >10d course. Failed SBT. Family considering tracheostomy. 06/10: No overnight events. Vital Signs: Temp Pulse Resp BP SpO2 FiO2 98.7 F 70 20 136/67 93 25 06/10/19 04:00 06/10/19 07:24 06/10/19 07:24 06/10/19 07:00 06/10/19 07:24 06/10 07:24 Physical Exam: Gen: resting comfortably HEENT: ETT in place Lungs: rhonci on inspiration bilaterally. LLL expiratory crackle Cardiac: RRR Abdomen: soft, mildly distended, nontender Extremities: warm, dry Neuro: sedated. awakens to voice Fluid Balance (Past 24 Hours): I= O= Net Intake & Output 06/08/19 06/09/19 06/10/19 06/11/19 06:59 06:59 06:59 06:59 Intake Total 1604.3 1700 868 278 Output Total 0 0 0 Balance 1604.3 1700 868 278 Weight 127 lb 10.362 oz 121 lb 11.123 oz 116 lb 13.52 oz Intake: IV Fluids 726 465 100 ABX - ZOSYN 169 100 100 NS (0.9%) 557 365 IVPB 262 388 379 ABX - VANCOMYCIN 273 ABX - ZOSYN 253 115 100 Antibiotics 9 169 NS (0.9%) 110 Medicated IV 387.3 268 110 38 CC - Propofol/Diprivan 387.3 268 110 38 IV Narcotic Infusion 31 56 Fentanyl 31 56 Oral 0 0 0 Tube Feeding 229 458 223 240 Tube Feeding Flush Amount 90 NG Tube Irrigate Amount 0 0 0 Output: Urine 0 0 0 Irrigation 0 0 Other: Date of Last Bowel 06/08/19 06/08/19 06/09/19 Movement # Bowel Movements 1 1 1 Estimated Stool Amount Medium Small Small Labs: Laboratory Results - last 24 hr 06/09/19 06/09/19 06/09/19 09:50 13:51 15:52 WBC RBC Hgb Hct MCV MCH MCHC RDW Plt Count MPV Neut % (Auto) Lymph % (Auto) [place] % (Auto) Eos % (Auto) Baso % (Auto) Absolute Neuts (auto) Absolute Lymphs (auto) Absolute Monos (auto) Absolute Eos (auto) Absolute Basos (auto) Absolute Nucleated RBC Nucleated RBC % Sodium Potassium Chloride Carbon Dioxide Anion Gap BUN Creatinine Est GFR ( Amer) Est GFR (Non-Af Amer) BUN/Creatinine Ratio Glucose POC Glucose (mg/dL) 119 H 102 H 99 Lactic Acid Calcium Magnesium Total Bilirubin AST ALT Alkaline Phosphatase Total Protein Albumin Globulin Albumin/Globulin Ratio 06/09/19 06/10/19 06/10/19 22:34 01:54 04:45 WBC 10.7 RBC 2.92 L Hgb 9.3 L Hct 28 L MCV 96 MCH 32 H MCHC 33 RDW 16 H Plt Count 192 MPV 8.2 Neut % (Auto) 69.5 Lymph % (Auto) 15.3 [place] % (Auto) 9.5 Eos % (Auto) 5.1 Baso % (Auto) 0.6 Absolute Neuts (auto) 7.5 Absolute Lymphs (auto) 1.6 Absolute Monos (auto) 1.0 H Absolute Eos (auto) 0.5 Absolute Basos (auto) 0.1 Absolute Nucleated RBC 0.0 Nucleated RBC % 0.1 Sodium Potassium Chloride Carbon Dioxide Anion Gap BUN Creatinine Est GFR ( Amer) Est GFR (Non-Af Amer) BUN/Creatinine Ratio Glucose POC Glucose (mg/dL) 103 H 110 H Lactic Acid Calcium Magnesium Total Bilirubin AST ALT Alkaline Phosphatase Total Protein Albumin Globulin Albumin/Globulin Ratio 06/10/19 06/10/19 06/10/19 06:00 06:38 06:55 WBC RBC Hgb Hct MCV MCH MCHC RDW Plt Count MPV Neut % (Auto) Lymph % (Auto) [place] % (Auto) Eos % (Auto) Baso % (Auto) Absolute Neuts (auto) Absolute Lymphs (auto) Absolute Monos (auto) Absolute Eos (auto) Absolute Basos (auto) Absolute Nucleated RBC Nucleated RBC % Sodium 140 Potassium 3.5 Chloride 102 Carbon Dioxide 30 Anion Gap 8 BUN 8 Creatinine 2.27 H Est GFR ( Amer) 26.8 Est GFR (Non-Af Amer) 22.1 BUN/Creatinine Ratio 3.5 L Glucose 97 POC Glucose (mg/dL) 108 H Lactic Acid 0.6 Calcium 9.4 Magnesium 1.8 L Total Bilirubin 0.40 AST 12 L ALT 6 L Alkaline Phosphatase 160 H Total Protein 5.6 L Albumin 2.8 L Globulin 2.8 Albumin/Globulin Ratio 1.0 Studies: 12/31 CXR - mixed interstitial and alveolar pulmonar edema with decreased aeration of RLL. Small bilateral pleural effusions. Cardiomegaly. 06/07 CXR - pulmonary edema likely with a small to moderate left lower lung pleural effusion vs consolidation. unchanged from prior. 06/06 CXR - Pulmonary edema likely with left lung base pleural effusion. 06/06 CXR - interval placement of ETT> Vascular congestion likely with left lower lobe pleural effusion. Improved aeration compared to 06/05 CXR 06/05 CT chest- bilateral infiltrates and small bilateral pleural effusions. Mucus plug in distal left mainstem bronchus and lower lobe and lingular bronchi. 06/05 CXR - Cardiomegaly with intersitial edema. LLL airspace disease and likely left pleural effusion. 05/31 CXR - pulmonary interstitial edema. Bilateral pleural effusions iwth bibasilar atelectasis vs consolidation. Nutrition: TF Impression: 58 yo F with PMH including COPD and recent pulmonary infection admitted on with RLL pneumonia. Initially managed on floor however developed mucus plugging of L main bronchus with post obstructive pneumonia in LLL. Transferred to ICU and intubated for acute respiratory failure on 06/06. Plan: Hospital Diagnoses: #1: Acute on chronic hypoxic and hypercapneic respiratory failure #2: Sepsis #3: Bilateral lower lobe pneumonia #4: Pulmonary edema Cardiovascular: (1) Chronic HTN;(2) CAD with hx of prior [place], (3) chronic systolic CHF; (4) hx of cardiomegaly; (5) Hypercholesterolemia; (6) hx of murmur ; (7) hx of bradycardia -- HR 66-102 -- SBP 89-164 -- Telemetry -- ASA and Plavix -- Atorvastatin Home meds: Atorvastatin, Aliskiren, Carvedilol, Plavix, ASA, Amlodipine, Nitroglycerine Pulmonary: (1) Acute on chronic hypoxic and hypercapneic respiratory failure; ( 2) Bilateral lower lobe pneumonia; (3)Pulmonary edema, bilateral; (4) COPD; (5) Recent respiratory infection prior to admission; (6) hx of pleural effusions -- RR 20-26 -- sats 91-100 -- vent: PCV P 30 PEEP 5 FiO2 25% RR 20 -- SBT held today for increased hypoxia requiring increased FiO2 to 60% -- CXR, 06/09: RLL infiltrate. small bilateral pleural effusions. Repeat CXR ordered -- AB.40/49/47/28.1/4.5/86.6. fiO2 increased -- PRN Duonebs -- Nephrology had recommended thoracentesis; will discuss with patient's son as any available optimization may help to liberate her from the vent. -- Family considering patient's desires regarding tracheostomy. Home meds: Albuterol, 3L home O2 Gastrointestinal: (1) hx of dysphagia; (2) hx of diverticulosis; (3) GERD; (4) hx of PUD -- diet: TF -- bowel regimen: none -- ulcer prophylaxis: Protonix -- Lactobacillus -- plan for swallow eval once extubated given history of dysphagia Home meds: Zofran, Prilosec, Immodium, Lactobacillus, Simethicone Endocrine: No acute issues -- monitor BGs Home meds: None Renal: (1) ESRD on dialysis; (2) Hypomagnesemia; (3) Polycystic kidney disease -- UOP: anuric -- Cr 2.27 from 2.89 -- Lytes Na 140 from 138 K 3.5, replace Ca 9.4 Mag 1.8, replace Phos ordered with AM labs -- Phoslo -- Nephrology following Home meds: Phoslo, Dialyvite Infectious disease: (1) Sepsis, improving; (2) Bilateral lower lobe pneumonia; (3) past hx of VRE -- Tmax 100.3 -- WBC 10.7 from 12.4 -- Micro 06/06 sputum yeast 05/27 blood negative MRSA negative -- ABX Completed course of Zosyn and vancomycin on 06/09 Home meds: topical nystatin, Augmentin Neurologic: (1) Chronic depression and anxiety; (2) Chronic pain syndrome; (3) hx of prior CVA; (4) hx of seizures; (5) hx of brain aneurysm x 5 -- PRN Tylenol -- Fentanyl gtt for pain contorl -- Propofol gtt for sedation -- Zoloft Home meds: Tylenol, Zoloft, Atarax, Melatonin, Buspar Hematological: (1) Anemia, chronic -- Hgb 9.3 from 9.5, follow trend -- Plt 192 from 196 -- DVT prophylaxis: SQ Heparin -- ASA and Plavix -- Epogen Home meds: Plavix, ASA Metabolic: No acute issues Home meds: None Other: (1) Rheumatoid arthritis; (2) hx of osteoporosis Home meds: None Deep vein thrombosis prophylaxis: SQ Heparin Dietary: Protonix Condition: critical Prognosis: guarded Code status: full Disposition: continue ICU Care Family updated at bedside regarding interval events and plan of care Cumulative time spent in the care of this patient (excluding any procedure time) : at least 90 minutes. Patient care included clinical interview (with patient and/or family), bedside exam of the patient, review of labs, x-rays, and other ancillary data, coordination of (respiratory, nursing care, review of patient's records, discussion regarding patients management with involved consultants, primary physician, pharmacists, and other healthcare personnel (dietary, case management , physical/occupational therapy etc.) Critical Care Time: 90 min
[2019-06-10] MEDS: Propofol* 100 ML IV SCH (09:47)
[2019-06-10] MEDS: Pantoprazole IV* 40 MG IV SCH (09:47)
[2019-06-10] MEDS: Sertraline* 50 MG TAB PO SCH (09:53)
[2019-06-10] MEDS: Lactobacillus Acidophilus* 1 TAB PO SCH (09:53)
[2019-06-10] MEDS: Aspirin 81 mg CHEW TAB* 81 MG TAB.CHEW PO SCH (09:53)
[2019-06-10] MEDS: Clopidogrel TAB* 75 MG PO SCH (09:53)
[2019-06-10] MEDS: Calcium Acetate CAP* 667 MG PO SCH ×3 (10:06→21:00)
[2019-06-10] MEDS ORDERED: KCL 20 MEQ/100 ML IVPREMIX* 20 MEQ/100 ML BAG IV ONE (10:25)
[2019-06-10] MEDS ORDERED: Magnesium Sulfate 2 GM IV* 2 GM/50 ML BAG IVPB ONE (10:57)
[2019-06-10] MEDS ORDERED: Vancomycin(*) 1,000 MG in NS 0.9% 250 ML* 250 ML IVPB ONE (11:14)
[2019-06-10] MEDS ORDERED: Piperacillin/Tazobac ADVAN(*) 3.375 GM in NS 0.9% 100 ML* 100 ML IVPB ONE (11:14)
[2019-06-10] MEDS ORDERED: Zosyn per Pharmacy* NOTE FOLLOW UP SCH (12:00)
[2019-06-10] MEDS ORDERED: Vancomycin per Pharmacy* NOTE FOLLOW UP SCH (12:00)
[2019-06-10] MEDS ORDERED: Vancomycin(*) 500 MG in NS 0.9% 250 ML* 250 ML IVPB ONE (13:00)
[2019-06-10 15:56] LABS: Body Fluid Source Pleural Fluid
--- NOTE | 2019-06-10 15:59 | BRIEFOPN ---
Brief Operative/Procedure Note - Operation Details Pre-Op Diagnosis: Left sided Pleural Effusion Post-Op Diagnosis: Left sided pleural effusion Procedures: Left thoracentesis Surgeon(s)/Proceduralists: Amy Will Anesthesia: Local Anesthesia-1% lidocaine Estimated Blood Loss: None Findings: Light yellow clear fluid drained; 200 ml Specimen(s)/Culture(s) Description: Light yellow; clear Complications: None
[2019-06-10 16:49] LABS: Body Fluid Mono 59 %
[2019-06-10] MEDS ORDERED: fentaNYL* 50 MCG/ML 2 ML VIAL (100 MCG VIAL) IV ONE (17:30)
[2019-06-10] MEDS: Atorvastatin* 20 MG TAB PO SCH (21:00)
[2019-06-10] MEDS: ZOSYN 3.375 GM Q12H per EXTENDED INFUSION IVPB SCH ×2 (22:07)
[2019-06-11] MEDS: Chlorhexidine MOUTHWASH 0.12%* 15 ML UDC TOPICAL SCH ×4 (02:45→14:22)
[2019-06-11] MEDS: Propofol* 100 ML IV SCH (03:49)
[2019-06-11 05:07] LABS: BUN/Creatinine Ratio 5.7 (8-20); EGFR African American 18.2 (>60); Phosphorus 2.4 mg/dL (2.5-5.0)
[2019-06-11 05:19] LABS: Potassium 3.5 mmol/L (3.5-5.0)
[2019-06-11] MEDS: Heparin VIAL(*) 5000 UNITS/ML VIAL (FIVE THOUSAND) SUBCUT SCH ×3 (05:33→21:30)
[2019-06-11] MEDS: Nystatin OINT* 15 GM TOPICAL PRN (08:30)
--- NOTE | 2019-06-11 09:48 | PN ---
Date of Service: 06/11/19 - HD 16 Critical Care Services: 58 yo F presents to ED from [facility] on 05/27 with shortness of breath , cough and weakness x 1 week. Not improved with outpatient abx therapy. On evaluation in ED tachypneic to 24. Sats 100%. Physical exam notable for moderate respiratory distress. Bibasilar crackes and rhonchi in RUL present. 2 + edema in lower extremities. WBC 9.0, BUN 28 and Cr 5.08. CXR with increased interstitial markings consistent with fluid overload. EKG NSR. Started on Duonebs. ABG with CO2 retention. Started on BiPAP and admitted to hospitalist/ ICU. Tolerated HD (was scheduled for outpatient that day) without hypotension. Weaned off BiPAP 05/28: Encephalopathy resolved after BiPAP. Repeat ABG shows resolution of CO2 retention. Edema and respiratory status improved after HD. Quinn cultured for fever. Continued on Zosyn and Vancomycin. Hypertension resolved after HD. Pt requested change in code status from DNR/DNI to FULL CODE with trial of intubation. Downgraded from ICU to telemetry floor. 05/29: Noted to have excessive upper airway secretions. HD again with 1L removal. Blood cultures NGTD; antibiotics discontinued. 05/30: Feeling worse. More short of breath and cough. Tachypnea and crackles now noted. ABX restarted (Ceftriaxone and Azithromycin). Pulmonary edema recurred. 05/31: More fatigued. Refusing food today. ABX changed back to Vancomycin and Zosyn 06/01: HD. 06/03: couldn't sleep because of cough. 06/04: Appears worse. Sleepy and short of breath. ABG with hypercarbia. Difficulty tolerating BiPAP due to anxiety. 06/05: Nephrology recommending diagnostic and therapeutic thoracentesis of left pleural cavity. 06/06: Transferred to ICU for increasing hypercarbia and hypoxia. Amlodipine discontinued for hypotension. Benzodiazepines held as it was felt that they might be contributing to encephalopathy. CXR with obstruction of left mainstem bronchus by mucus plug. 06/07: Intubated for acute on chronic hypoxic and hypercarbic respiratory failure. Postintubation RICKEY reexpanded but LLL with postobstructive infiltrate presumed pneumonia. Difficult intubation, airway anterior 06/08: failed SBT. HD done. 06/09: ABX stopped as >10d course. Failed SBT. Family considering tracheostomy. 06/10: Thoracentesis for therapeutic and diagnostic effect done on left pleural effusion. Failed SBT. Further discussions with patient's son regarding issues surrounding tracheostomy. He is appropriately hesitant as he feels that her ability to talk and eat are two of her few remaining pleasures in life. He also would like to be sure it is absolutely necessary before proceeding. He is aware that we have approximately 7-10 days on the ETT before we need to decide. 06/11: No overnight events. Vital Signs: Temp Pulse Resp BP SpO2 FiO2 98.8 F 75 20 86/51 99 50 06/11/19 07:23 06/11/19 08:00 06/11/19 07:00 06/11/19 08:00 06/11/19 08:00 06/11 03:17 Physical Exam: Gen: resting comfortably HEENT: ETT in place Lungs: inspiratory crackles Cardiac: RRR Abdomen: soft, NTND Extremities: warm, dry, no edema Neuro: awakens to voice Fluid Balance (Past 24 Hours): I= O= Net Intake & Output 06/09/19 06/10/19 06/11/19 06/12/19 06:59 06:59 06:59 06:59 Intake Total 3959 490 5577 Output Total 0 0 200 Balance 6601 378 7477 Weight 121 lb 11.123 oz 116 lb 13.52 oz 115 lb 13.89 oz Intake: IV Fluids 465 100 781 ABX - ZOSYN 100 100 NS (0.9%) 365 781 IVPB 388 379 289 ABX - VANCOMYCIN 273 176 ABX - ZOSYN 115 100 113 Antibiotics 169 NS (0.9%) 110 Medicated IV 268 110 114 CC - Propofol/Diprivan 268 110 114 IV Narcotic Infusion 31 56 Fentanyl 31 56 Oral 0 0 Tube Feeding 458 223 841 Tube Feeding Flush Amount 90 370 NG Tube Irrigate Amount 0 0 Output: Urine 0 0 Other 200 Irrigation 0 0 Other: Date of Last Bowel 06/08/19 06/09/19 Movement # Bowel Movements 1 1 Estimated Stool Amount Small Small Small Other Amount Description PLEURAL FLUID Labs: Laboratory Results - last 24 hr 06/10/19 06/10/19 06/11/19 10:52 15:15 04:31 Patient Temperature Not Reportable ABG pH 7.40 ABG pCO2 49 H ABG pO2 47 L* ABG HCO3 28.1 ABG O2 Saturation 86.6 L ABG Base Excess 4.5 H Respiration Rate Not Reportable O2 Delivery Device vent Ventilator Type Not Reportable Vent Mode Not Reportable FiO2 25 Inspiratory Time Not Reportable PEEP Not Reportable Pressure Support Not Reportable Pressure Control Not Reportable EPAP Not Reportable IPAP Not Reportable BiPAP Not Reportable Sodium 135 Potassium 3.5 Chloride 101 Carbon Dioxide 23 Anion Gap 11 BUN 18 Creatinine 3.17 H Est GFR ( Amer) 18.2 Est GFR (Non-Af Amer) 15.0 BUN/Creatinine Ratio 5.7 L Glucose 98 Calcium 9.0 Phosphorus 2.4 L Lactate Dehydrogenase 141 Fluid Source Pleural fluid Fluid Volume 9.0 Fluid Color Yellow Fluid Appearance Clear Fluid WBC 156 Fluid RBC 32 Fluid Tot Cell Count 100 Fluid Neutrophils 7 Fluid Lymphocytes 34 Fluid Monocytes 59 Fluid Comment Studies: 06/10 CXR - congestive heart failure vs pneumonia, unchanged. no PTX. 06/09 CXR - mixed interstitial and alveolar pulmonar edema with decreased aeration of RLL. Small bilateral pleural effusions. Cardiomegaly. 06/07 CXR - pulmonary edema likely with a small to moderate left lower lung pleural effusion vs consolidation. unchanged from prior. 06/06 CXR - Pulmonary edema likely with left lung base pleural effusion. 06/06 CXR - interval placement of ETT> Vascular congestion likely with left lower lobe pleural effusion. Improved aeration compared to 06/05 CXR 06/05 CT chest- bilateral infiltrates and small bilateral pleural effusions. Mucus plug in distal left mainstem bronchus and lower lobe and lingular bronchi. 06/05 CXR - Cardiomegaly with intersitial edema. LLL airspace disease and likely left pleural effusion. 05/31 CXR - pulmonary interstitial edema. Bilateral pleural effusions iwth bibasilar atelectasis vs consolidation. Nutrition: TF Impression: 58 yo F with PMH including COPD and recent pulmonary infection admitted on with RLL pneumonia. Initially managed on floor however developed mucus plugging of L main bronchus with post obstructive pneumonia in LLL. Transferred to ICU and intubated for acute respiratory failure on 06/06. Difficult intubation. Plan: Plan: Hospital Diagnoses: #1: Acute on chronic hypoxic and hypercapneic respiratory failure #2: Sepsis #3: Bilateral lower lobe pneumonia #4: Pulmonary edema Cardiovascular: (1) Chronic HTN;(2) CAD with hx of prior [place], (3) chronic systolic CHF; (4) hx of cardiomegaly; (5) Hypercholesterolemia; (6) hx of murmur ; (7) hx of bradycardia -- HR 59-77 -- SBP 84-129 -- Telemetry -- ASA and Plavix -- Atorvastatin Home meds: Atorvastatin, Aliskiren, Carvedilol, Plavix, ASA, Amlodipine, Nitroglycerine Pulmonary: (1) Acute on chronic hypoxic and hypercapneic respiratory failure; ( 2) Bilateral lower lobe pneumonia; (3) Pulmonary edema, bilateral; (4) COPD; (5 ) Recent respiratory infection prior to admission; (6) hx of pleural effusions -- RR 16-26 -- sats 93-100 -- vent: PCV P 30 PEEP 5 FiO2 25% RR 20 -- SBT today, if fails will consider attempt to upsize ETT (over bougie) to allow for bronchoscopy to try and clear secretions from LLL -- CXR: CHF vs pneumonia -- PRN Duonebs -- Family considering patient's desires regarding tracheostomy. Home meds: Albuterol, 3L home O2 Gastrointestinal: (1) hx of dysphagia; (2) hx of diverticulosis; (3) GERD; (4) hx of PUD -- diet: TF -- bowel regimen: none -- ulcer prophylaxis: Protonix -- Lactobacillus -- plan for swallow eval once extubated given history of dysphagia Home meds: Zofran, Prilosec, Immodium, Lactobacillus, Simethicone Endocrine: No acute issues -- monitor BGs Home meds: None Renal: (1) ESRD on dialysis; (2) Hypomagnesemia; (3) Polycystic kidney disease -- UOP: anuric -- Cr 3.17 from 2.27 -- Lytes Na 135 from 140 K 3.5 Ca 9.0 Mag pending Phos 2.4 -- Phoslo -- Nephrology following, planning for next HD /3 Home meds: Phoslo, Dialyvite Infectious disease: (1) Sepsis, improving; (2) Bilateral lower lobe pneumonia; (3) past hx of VRE -- Tmax 99.8 -- WBC 10.7 from 12.4 -- Micro 06/10 Pleural in progress 06/06 sputum yeast 05/27 blood negative MRSA negative -- ABX Zosyn Vancomycin Home meds: topical nystatin, Augmentin Neurologic: (1) Chronic depression and anxiety; (2) Chronic pain syndrome; (3) hx of prior CVA; (4) hx of seizures; (5) hx of brain aneurysm x 5 -- PRN Tylenol -- Fentanyl gtt for pain contorl -- Propofol gtt for sedation -- Zoloft Home meds: Tylenol, Zoloft, Atarax, Melatonin, Buspar Hematological: (1) Anemia, chronic -- Hgb 9.3 from 9.5, follow trend -- Plt 192 from 196 -- DVT prophylaxis: SQ Heparin -- ASA and Plavix -- Epogen Home meds: Plavix, ASA Metabolic: No acute issues Home meds: None Other: (1) Rheumatoid arthritis; (2) hx of osteoporosis Home meds: None Deep vein thrombosis prophylaxis: SQ Heparin Dietary: Protonix Condition: critical Prognosis: guarded Code status: full Disposition: continue ICU Care Family updated at bedside regarding interval events and plan of care Cumulative time spent in the care of this patient (excluding any procedure time) : at least 60 minutes. Patient care included clinical interview (with patient and/or family), bedside exam of the patient, review of labs, x-rays, and other ancillary data, coordination of (respiratory, nursing care, review of patient's records, discussion regarding patients management with involved consultants, primary physician, pharmacists, and other healthcare personnel (dietary, case management , physical/occupational therapy etc.) Critical Care Time: 60 min
[2019-06-11] MEDS: fentaNYL INFUSION 50 MCG/ML* 2,500 MCG/50 ML BAG IV SCH ×2 (09:51→19:14)
[2019-06-11] MEDS: Calcium Acetate CAP* 667 MG PO SCH ×2 (09:56→12:56)
[2019-06-11] MEDS: Lactobacillus Acidophilus* 1 TAB PO SCH (09:56)
[2019-06-11] MEDS: Sertraline* 50 MG TAB PO SCH (09:56)
[2019-06-11] MEDS: Clopidogrel TAB* 75 MG PO SCH (09:56)
[2019-06-11] MEDS: Pantoprazole IV* 40 MG IV SCH (09:57)
[2019-06-11] MEDS: Aspirin 81 mg CHEW TAB* 81 MG TAB.CHEW PO SCH (09:57)
[2019-06-11] MEDS: ZOSYN 3.375 GM Q12H per EXTENDED INFUSION IVPB SCH ×4 (11:19→22:37)
--- NOTE | 2019-06-11 13:01 | ECHO ---
*[facility]* [place] [address] Fax #: [phone] Transthoracic Echocardiogram Patient: Beth Charles : 1960 Study Date: 06/11/2019 Age: 58 Gender: F HR: 76 bpm Height: 67 in /170.2 cm BSA: 1.6 m^2 Weight: 115.8 lb /52.6 kg BMI: 18.2 kg/m^2 *[employer] Developer: Shamika Rankin *Referring Physician: * Penny NolandReading Physician: * Jimena Matias MD Indications: Congestive Heart Failure. History: Coronary artery disease. Cerebrovascular accident. Risk factors: Hypertension. Conclusions Summary: - Left ventricle: The cavity size is normal. Wall thickness is normal. Systolic function is normal. The estimated ejection fraction is 55-60%. Wall motion is normal; there are no regional wall motion abnormalities. - Left atrium: The atrium is mildly dilated. - Mitral valve: There is trace regurgitation. - Aortic valve: There is trace regurgitation. - Tricuspid valve: There is mild regurgitation. - Pulmonary arteries: Systolic pressure is moderately increased, estimated to be 50 mm Hg. - C/t 11/27/2017, mitral regurgitation was mild then. PASP was 30 mmHg then. is new. Study data: Transthoracic echocardiogram. Procedure: Transthoracic echocardiography was performed. Image quality was good. Complete 2D, spectral Doppler, and color flow Doppler. Location: ICU Patient status: Inpatient. Patient room number: 5. Rhythm: Normal sinus rhythm with PVC's. Findings Left ventricle: The cavity size is normal. Wall thickness is normal. Systolic function is normal. The estimated ejection fraction is 55-60%. Wall motion is normal; there are no regional wall motion abnormalities. Left ventricular diastolic function parameters are normal. Right ventricle: The cavity size is normal. Wall thickness is normal. Systolic function is mildly reduced. Ventricular septum: The ventricular septum is normal. Left atrium: The atrium is mildly dilated. Right atrium: The atrium is normal in size. Atrial septum: No defect or patent foramen ovale is identified. Mitral valve: Appears calcified. The leaflets are mildly thickened. There is no evidence of stenosis. There is trace regurgitation. Aortic valve: The valve is trileaflet. The leaflets are mildly calcified. The findings are consistent with mild stenosis. There is trace regurgitation. Tricuspid valve: The leaflets are normal thickness. There is no evidence of stenosis. There is mild regurgitation. Pulmonic valve: The valve is structurally normal. There is no evidence of stenosis. There is no regurgitation. Aorta: The aortic root appears normal. Pericardium: There is no significant pericardial effusion. Pulmonary arteries: Systolic pressure is moderately increased, estimated to be 50 mm Hg. Systemic veins: Inferior vena cava: The vessel is normal in size. There is (< 50%) respiratory change in the IVC dimension. Pulmonary veins: The Pulmonary veins appear normal. Measurements Left ventricle Value Ref Aortic valve Value Ref ELINOR, LAX (L) 3.6 cm 3.8 - Peak v, S 2.37 m/sec ----- 5.2 VTI, S 34.7 cm ----- ESD, LAX 2.5 cm 2.2 - Mean grad, S 11.0 mm Hg ----- 3.5 Peak grad, S 22.0 mm Hg ----- FS, LAX 30 % 27 - 45 JOCELYNN, VTI 1.56 cm^2 ----- PW, ED, LAX (H) 1.1 cm 0.6 - JOCELYNN, Vmax 1.33 cm^2 ----- 0.9 FS 30 % 27 - 45 Mitral valve Value Ref Mid-wall FS 10 % -------- Peak E 1.09 m/sec ----- PW, ED (H) 1.1 cm 0.6 - Peak A 1.12 m/sec ----- 0.9 Decel time 239 ms ----- PW/ID, ED 0.32 -------- Peak grad, D 4.8 mm Hg ----- E', avg, TDI 4.7 cm/sec -------- Peak E/A ratio 1 --- -- E/e', avg, TDI (H) 23 <=14 Pulmonic valve Value Ref LVOT Value Ref Peak v, S 0.87 m/sec ----- Diam, S 1.90 cm -------- Peak grad, S 3.0 mm Hg ----- Area 2.8 cm^2 -------- Peak tigre, S 1.11 m/sec -------- Tricuspid valve Value Ref Mean grad, S 3 mm Hg -------- TR peak v (H) 3.17 m/sec <=2.8 SV 54 ml -------- Peak RV-RA grad, S 40 mm Hg ----- Max TR tigre 3.18 m/sec ----- Ventricular septum Value Ref IVS, ED (H) 1.3 cm 0.6 - Aortic root Value Ref 0.9 Root diam 2.8 cm <3.8 Right ventricle Value Ref Ascending aorta Value Ref ELINOR, LAX 2.9 cm -------- AAo AP diam, S 3.0 cm ----- ELINOR minor ax, A4C 3.2 cm 1.9 - mid 3.5 Decending aorta Value Ref Jacque peak tigre 0.66 m/sec ----- Left atrium Value Ref ML dim, A4C 5.3 cm -------- Inferior vena cava Value Ref SI dim, A4C 5.4 cm -------- Diam 1.5 cm ----- Vol/bsa, ES, 1-p 39 ml/m^2 11 - 40 A4C Vol/bsa, ES, A/L (H) 47 ml/m^2 16 - 34 Right atrium Value Ref SI dim, ES 5.1 cm 3.4 - 5.3 ML dim, ES, A4C 3.9 cm 2.6 - 4.4 SI dim, ES, A4C 5.1 cm 3.4 - 5.3 Legend: (L) and (H) jayleen values outside specified reference range. Prepared and electronically signed by Jimena Matias MD 06/11/2019 13:00
[2019-06-11] MEDS ORDERED: methylPREDNISolone 125 MG* 2 ML VIAL IV ONE (15:00)
[2019-06-11] MEDS ORDERED: fentaNYL INFUSION 50 MCG/ML* 2,500 MCG/50 ML BAG IV SCH (16:44)
[2019-06-11] MEDS: Morphine INJ* 2 MG/ML 1 ML SYRINGE (TWO MG - NEW SYRINGE VERSION) IV PRN ×2 (18:04→23:51)
--- NOTE | 2019-06-11 19:06 | PN ---
Progress Note - Progress Note Date of Service: 06/11/18 Note: Chief complaint end-stage kidney disease, volume overload Interval history: Mrs. Charles is in critical condition, intubated and sedated in ICU. She requires mechanical ventilation and her oxygen saturation is 100% on 50% FiO2. She is unresponsive due to sedation, so cannot give history or review of systems. Labs: Sodium 135, potassium 3.5, total CO2 23, creatinine 3.17, BUN 18 Physical exam: Temp Pulse Resp BP SpO2 FiO2 97.8 F 100 23 136/105 80 40 06/11/19 16:00 06/11/19 18:00 06/11/19 18:04 06/11/19 18:00 06/11/19 18:00 06/11 12:00 Constitutional: Lying in bed, intubated, sedated, unresponsive Chest: Diffuse rhonchi Heart: S1-S2, regular rate and rhythm, trace of blood with swollen lower extremities edema Abdomen: Soft with positive bowel sounds Neuro: Sedated, unresponsive Abnormal Lab Results 06/10/19 06/11/19 15:15 04:31 Sodium 135 Potassium 3.5 Chloride 101 Carbon Dioxide 23 Anion Gap 11 BUN 18 Creatinine 3.17 H Est GFR ( Amer) 18.2 Est GFR (Non-Af Amer) 15.0 BUN/Creatinine Ratio 5.7 L Glucose 98 Calcium 9.0 Phosphorus 2.4 L Lactate Dehydrogenase 141 Fluid Cell Count Rvw By Albuterol/Ipratropium (Duoneb (Albuterol 2.5 Mg/Ipratropium 0.5 Mg)) 1 neb INH Q4H PRN PRN Reason: SOB/WHEEZING Last Admin: 06/04/19 14:49 Dose: 1 neb Aspirin (Aspirin 81 Mg Chew Tab*) 81 mg PO DAILY [facility] Last Admin: 06/11/19 09:57 Dose: 81 mg Atorvastatin Calcium (Lipitor*) 20 mg PO BEDTIME [facility] Last Admin: 06/10/19 21:00 Dose: 20 mg Calcium Acetate (Phoslo Cap*) 1,334 mg PO 0800,1200,2000 [facility] Last Admin: 06/11/19 12:56 Dose: Not Given Clopidogrel Bisulfate (Plavix Tab*) 75 mg PO DAILY [facility] Last Admin: 06/11/19 09:56 Dose: 75 mg Heparin Sodium (Porcine) (Heparin Vial(*)) 5,000 units SUBCUT Q8HR [facility] Last Admin: 06/11/19 14:21 Dose: 5,000 units Propofol (Diprivan*) 100 mls @ 0 mls/hr IV .PER PROTOCOL [facility]; Protocol Last Admin: 06/11/19 03:49 Dose: 4.8 mls/hr Piperacillin Sod/Tazobactam (Sod 3.375 gm/ Sodium Chloride) 100 mls @ 25 mls/ hr IVPB Q12H [facility] Last Admin: 06/11/19 11:19 Dose: 25 mls/hr Fentanyl Citrate (Fentanyl Infusion Bag 50 Mcg/Ml 50 Ml) 2,500 mcg in 50 mls @ 0 mls/hr IV Q72H [facility]; Protocol Last Admin: 06/11/19 16:50 Dose: Not Given Lactobacillus Rhamnosus (Lactobacillus Acidophilus*) 1 tab PO DAILY [facility] Last Admin: 06/11/19 09:56 Dose: 1 tab Morphine Sulfate (Morphine Inj (Syringe))*) 2 mg IV Q2H PRN PRN Reason: PAIN - SEVERE Last Admin: 06/11/19 18:04 Dose: 2 mg Nystatin (Nystatin Oint*) 1 applic TOPICAL DAILY PRN PRN Reason: GROIN RASH Last Admin: 06/11/19 08:30 Dose: 1 applic Pantoprazole Sodium (Protonix Iv*) 40 mg IV DAILY [facility] Last Admin: 06/11/19 09:57 Dose: 40 mg Pharmacy Consult (Zosyn Per Pharmacy*) 1 note FOLLOW UP .ZOSYN PER PHARMACY [facility] Pharmacy Consult (Vancomycin Per Pharmacy*) 1 note FOLLOW UP .VANC PER PHARMACY [facility]; Protocol Sertraline HCl (Zoloft*) 50 mg PO DAILY [facility] Last Admin: 06/11/19 09:56 Dose: 50 mg Assessment and plan: 1. End-stage kidney disease - no need for dialysis today. Acid base and electrolytes are within normal limits and her oxygenation is stable on mechanical ventilation. Plan for dialysis tomorrow 2. Respiratory failure related to pneumonia. Requiring mechanical ventilation. Management per ICU team 3. Anemia of chronic kidney disease last hemoglobin yesterday was 9.3 g/dL. She is going to be unresponsive to a boy this time because of her acute infection. Hemoglobin is reasonable at this time. No need for blood transfusions. 4. Hypophosphatemia: I will stop Sevelamer
[2019-06-11] MEDS: Atorvastatin* 20 MG TAB PO SCH (19:15)
[2019-06-12] MEDS: Albuterol/Ipratropium NEB.SOL* Albuterol 2.5 MG/Ipratropium 0.5 MG 3 ML INH PRN (02:26)
[2019-06-12] MEDS ORDERED: diPHENhydraMINE IV* 50 MG/ML 1 ml VIAL (BENADRYL) IV ONE (03:27)
[2019-06-12] MEDS: Heparin VIAL(*) 5000 UNITS/ML VIAL (FIVE THOUSAND) SUBCUT SCH ×3 (05:01→21:53)
[2019-06-12 05:03] LABS: Hematocrit 30 % (35-47); Hemoglobin 9.6 g/dL (12.0-16.0); Mean Corpuscular HGB Conc 32 g/dL (31-36); Mean Corpuscular Hemoglobin 31 pg (27-31); Mean Corpuscular Volume 98 fL (80-97); Mean Platelet Volume 8.2 fL (7.4-10.4); Platelet Count 190 10^3/uL (150-450); Red Blood Count 3.08 10^6 /uL (3.70-4.87); Red Cell Distribution Width 16 % (10-15)
[2019-06-12 05:14] LABS: Albumin 3.2 g/dL (3.2-5.2); Albumin/Globulin Ratio 1.1 (1-3); Calcium 9.8 mg/dL (8.6-10.3); EGFR African American 11.4 (>60); EGFR Non-African American 9.5 (>60); Globulin 2.8 g/dL (2-4); Magnesium 2.5 mg/dL (1.9-2.7); Phosphorus 4.4 mg/dL (2.5-5.0); Potassium 4.5 mmol/L (3.5-5.0); Total Bilirubin 0.4 mg/dL (0.2-1.0)
[2019-06-12 05:17] LABS: Vancomycin Random 21.8 mcg/mL
[2019-06-12] MEDS: Pantoprazole IV* 40 MG IV SCH (08:04)
--- NOTE | 2019-06-12 09:27 | PN ---
Date of Service: 06/12/19 - HD 17 Critical Care Services: 58 yo F presents to ED from [facility] on 05/27 with shortness of breath , cough and weakness x 1 week. Not improved with outpatient abx therapy. On evaluation in ED tachypneic to 24. Sats 100%. Physical exam notable for moderate respiratory distress. Bibasilar crackes and rhonchi in RUL present. 2 + edema in lower extremities. WBC 9.0, BUN 28 and Cr 5.08. CXR with increased interstitial markings consistent with fluid overload. EKG NSR. Started on Duonebs. ABG with CO2 retention. Started on BiPAP and admitted to hospitalist/ ICU. Tolerated HD (was scheduled for outpatient that day) without hypotension. Weaned off BiPAP 05/28: Encephalopathy resolved after BiPAP. Repeat ABG shows resolution of CO2 retention. Edema and respiratory status improved after HD. Quinn cultured for fever. Continued on Zosyn and Vancomycin. Hypertension resolved after HD. Pt requested change in code status from DNR/DNI to FULL CODE with trial of intubation. Downgraded from ICU to telemetry floor. 05/29: Noted to have excessive upper airway secretions. HD again with 1L removal. Blood cultures NGTD; antibiotics discontinued. 05/30: Feeling worse. More short of breath and cough. Tachypnea and crackles now noted. ABX restarted (Ceftriaxone and Azithromycin). Pulmonary edema recurred. 05/31: More fatigued. Refusing food today. ABX changed back to Vancomycin and Zosyn 06/01: HD. 06/03: couldn't sleep because of cough. 06/04: Appears worse. Sleepy and short of breath. ABG with hypercarbia. Difficulty tolerating BiPAP due to anxiety. 06/05: Nephrology recommending diagnostic and therapeutic thoracentesis of left pleural cavity. 06/06: Transferred to ICU for increasing hypercarbia and hypoxia. Amlodipine discontinued for hypotension. Benzodiazepines held as it was felt that they might be contributing to encephalopathy. CXR with obstruction of left mainstem bronchus by mucus plug. 06/07: Intubated for acute on chronic hypoxic and hypercarbic respiratory failure. Postintubation RICKEY reexpanded but LLL with postobstructive infiltrate presumed pneumonia. Difficult intubation, airway anterior 06/08: failed SBT. HD done. 06/09: ABX stopped as >10d course. Failed SBT. Family considering tracheostomy. 06/10: Thoracentesis for therapeutic and diagnostic effect done on left pleural effusion. Failed SBT. Further discussions with patient's son regarding issues surrounding tracheostomy. He is appropriately hesitant as he feels that her ability to talk and eat are two of her few remaining pleasures in life. He also would like to be sure it is absolutely necessary before proceeding. He is aware that we have approximately 7-10 days on the ETT before we need to decide. 06/11: Passed SBT and successfully extubated. Son and patient discussed and decided on DNR/DNI. 06/12: No overnight events Vital Signs: Temp Pulse Resp BP SpO2 FiO2 98.9 F 78 13 130/74 100 40 06/12/19 07:43 06/12/19 09:00 06/12/19 09:12 06/12/19 09:00 06/12/19 09:00 06/11 12:00 Physical Exam: Gen: resting in bed, appears fatigued HEENT: oxygen mask in place Lungs: nonlabored breathing Cardiac: RRR Abdomen: nondistended Extremities: dry, no edema Neuro: alert, conversant but fatigued Fluid Balance (Past 24 Hours): I= O= Net Intake & Output 06/10/19 06/11/19 06/12/19 06/13/19 06:59 06:59 06:59 06:59 Intake Total 868 2395 524 0 Output Total 0 200 0 Balance 868 2195 524 0 Weight 116 lb 13.52 oz 115 lb 13.89 oz 117 lb 11 oz Intake: IV Fluids 100 781 154 ABX - ZOSYN 100 NS (0.9%) 781 154 IVPB 379 289 ABX - VANCOMYCIN 176 ABX - ZOSYN 100 113 Antibiotics 169 NS (0.9%) 110 Medicated IV 110 114 28 CC - Propofol/Diprivan 110 114 28 IV Narcotic Infusion 56 Fentanyl 56 Oral 0 0 Tube Feeding 223 841 242 Tube Feeding Flush Amount 370 100 NG Tube Irrigate Amount 0 Output: Urine 0 0 Other 200 Irrigation 0 Other: Estimated Void Medium Date of Last Bowel 06/09/19 Movement # Bowel Movements 1 Estimated Stool Amount Small Small Other Amount Description PLEURAL FLUID Labs: Laboratory Results - last 24 hr 06/10/19 06/12/19 06/12/19 15:15 04:20 04:20 WBC 11.0 H RBC 3.08 L Hgb 9.6 L Hct 30 L MCV 98 H MCH 31 MCHC 32 RDW 16 H Plt Count 190 MPV 8.2 Sodium 141 Potassium 4.5 Chloride 101 Carbon Dioxide 28 Anion Gap 12 H BUN 33 H Creatinine 4.74 H Est GFR ( Amer) 11.4 Est GFR (Non-Af Amer) 9.5 BUN/Creatinine Ratio 7.0 L Glucose 115 H Calcium 9.8 Phosphorus 4.4 Magnesium 2.5 Total Bilirubin 0.40 AST 10 L ALT 7 Alkaline Phosphatase 134 H Total Protein 6.0 L Albumin 3.2 Globulin 2.8 Albumin/Globulin Ratio 1.1 Fluid Cell Count Rvw By Random Vancomycin 21.8 Studies: 06/10 CXR - congestive heart failure vs pneumonia, unchanged. no PTX. 06/09 CXR - mixed interstitial and alveolar pulmonar edema with decreased aeration of RLL. Small bilateral pleural effusions. Cardiomegaly. 06/07 CXR - pulmonary edema likely with a small to moderate left lower lung pleural effusion vs consolidation. unchanged from prior. 06/06 CXR - Pulmonary edema likely with left lung base pleural effusion. 06/06 CXR - interval placement of ETT> Vascular congestion likely with left lower lobe pleural effusion. Improved aeration compared to 06/05 CXR 06/05 CT chest- bilateral infiltrates and small bilateral pleural effusions. Mucus plug in distal left mainstem bronchus and lower lobe and lingular bronchi. 06/05 CXR - Cardiomegaly with intersitial edema. LLL airspace disease and likely left pleural effusion. 05/31 CXR - pulmonary interstitial edema. Bilateral pleural effusions iwth bibasilar atelectasis vs consolidation. Nutrition: NPO until swallow eval Impression: 58 yo F with PMH including COPD and recent pulmonary infection admitted on with RLL pneumonia. Initially managed on floor however developed mucus plugging of L main bronchus with post obstructive pneumonia in LLL. Transferred to ICU and intubated for acute respiratory failure on 06/06. Difficult intubation. Extubated 06/11. Plan: Hospital Diagnoses: #1: Acute on chronic hypoxic and hypercapneic respiratory failure #2: Sepsis #3: Bilateral lower lobe pneumonia #4: Pulmonary edema Cardiovascular: (1) Chronic HTN;(2) CAD with hx of prior NV, (3) chronic systolic CHF; (4) hx of cardiomegaly; (5) Hypercholesterolemia; (6) hx of murmur ; (7) hx of bradycardia -- HR 66-100 -- SBP 84-151 -- Telemetry -- ASA and Plavix -- Atorvastatin Home meds: Atorvastatin, Aliskiren, Carvedilol, Plavix, ASA, Amlodipine, Nitroglycerine Pulmonary: (1) Acute on chronic hypoxic and hypercapneic respiratory failure; ( 2) Bilateral lower lobe pneumonia; (3) Pulmonary edema, bilateral; (4) COPD; (5 ) Recent respiratory infection prior to admission; (6) hx of pleural effusions -- RR 7-24 -- sats 88-100 on 5L NC -- PRN Duonebs -- Pulmonary toilet Home meds: Albuterol, 3L home O2 Gastrointestinal: (1) hx of dysphagia; (2) hx of diverticulosis; (3) GERD; (4) hx of PUD -- diet: NPO. Bedside swallow eval/dysphagia screen ordered -- bowel regimen: none -- ulcer prophylaxis: Protonix -- Lactobacillus Home meds: Zofran, Prilosec, Immodium, Lactobacillus, Simethicone Endocrine: No acute issues -- monitor BGs Home meds: None Renal: (1) ESRD on dialysis; (2) Hypomagnesemia; (3) Polycystic kidney disease -- UOP: anuric at baseline -- Cr 4.74 from 3.17 -- Lytes Na 141 from 135 K 4.5 Ca 9.8 Mag 2.5 Phos 4.4 -- Phoslo -- Nephrology following, planning for next HD today, 06/12 Home meds: Phoslo, Dialyvite Infectious disease: (1) Sepsis, resolving (2) Bilateral lower lobe pneumonia; ( 3) past hx of VRE -- Tmax 100.1 -- WBC 11.0 from 10.7 -- Micro 06/10 Pleural NGTD 06/06 sputum yeast 05/27 blood negative MRSA negative -- ABX Zosyn Vancomycin Home meds: topical nystatin, Augmentin Neurologic: (1) Chronic depression and anxiety; (2) Chronic pain syndrome; (3) hx of prior CVA; (4) hx of seizures; (5) hx of brain aneurysm x 5 -- PRN Tylenol -- Fentanyl gtt for pain control, wean off as able -- PRN Morphine -- Zoloft Home meds: Tylenol, Zoloft, Atarax, Melatonin, Buspar Hematological: (1) Anemia, chronic -- Hgb 9.6 from 9.3, follow trend -- Plt 190 from 192 -- DVT prophylaxis: SQ Heparin -- ASA and Plavix -- Epogen Home meds: Plavix, ASA Metabolic: No acute issues Home meds: None Other: (1) Rheumatoid arthritis; (2) hx of osteoporosis Home meds: None Deep vein thrombosis prophylaxis: SQ Heparin Dietary: Protonix Condition: critical Prognosis: guarded Code status: full Disposition: continue ICU Care Family updated at bedside regarding interval events and plan of care Cumulative time spent in the care of this patient (excluding any procedure time) : at least 45 minutes. Patient care included clinical interview (with patient and/or family), bedside exam of the patient, review of labs, x-rays, and other ancillary data, coordination of (respiratory, nursing care, review of patient's records, discussion regarding patients management with involved consultants, primary physician, pharmacists, and other healthcare personnel (dietary, case management , physical/occupational therapy etc.) Critical Care Time: 45 min
[2019-06-12] MEDS ORDERED: Heparin DIALYSIS ONLY(*) 1,000 UNITS/ML VIAL DIALYSIS ONE (10:00)
[2019-06-12] MEDS ORDERED: EPOETIN ALFA-EPBX * 4,000 UNIT/ML VIAL IV ONE (10:00)
--- NOTE | 2019-06-12 11:02 | PN ---
Progress Note - Progress Note Date of Service: 06/12/19 Note: Inpatient acute HD Note for ESRD Performed by Dr. Arnoldo Tirado, [facility] Nephrology 06/12/2018 She was seen and examined on HD. She was successfully extubated yesterday and she and her son signed DNR/DNI per ICU attending's note! Shes still in MICU, awake & alert but disoriented to time. HD Routine: MWF HD Duration: 3 Hr UF Goal: 3 L/Rx Vitals: BP: 120-130/70 HR: 75/m Blood Flow: 400 cc/min Dialysate Flow: 600 cc/min Bath: K: 2K Ca: 2.5Ca Na: 138 Hco3: 35 Temp: 36 C Dialyzer: Revaclear 300 Access: Rt IJ TDC No Access Related Issues Meds with HD: EPO 8,000 U MWF Heparin Free Tolerates UF well. No Intradialytic Hypotension.
[2019-06-12 12:12] LABS: Lactate Dehydrogenase, BF 82 U/L
[2019-06-12] MEDS: ZOSYN 3.375 GM Q12H per EXTENDED INFUSION IVPB SCH ×4 (13:00→23:02)
[2019-06-12] MEDS: Lactobacillus Acidophilus* 1 TAB PO SCH (13:01)
[2019-06-12] MEDS: Clopidogrel TAB* 75 MG PO SCH (13:01)
[2019-06-12] MEDS: Aspirin 81 mg CHEW TAB* 81 MG TAB.CHEW PO SCH (13:01)
[2019-06-12] MEDS: Sertraline* 50 MG TAB PO SCH (13:01)
[2019-06-12 13:11] LABS: Fluid Type, Glucose PLEURAL
[2019-06-12 13:24] LABS: Fluid Type, Protein, Total PLEURAL
[2019-06-12] MEDS ORDERED: Petrolatum 5 GM* 5 GM PACKET TOPICAL PRN (13:46)
[2019-06-12] MEDS: Nystatin OINT* 15 GM TOPICAL PRN (14:35)
[2019-06-12] MEDS ORDERED: Vancomycin(*) 500 MG in NS 0.9% 250 ML* 250 ML IVPB ONE (16:00)
[2019-06-12] MEDS: Atorvastatin* 20 MG TAB PO SCH (21:53)
[2019-06-13] MEDS: Heparin VIAL(*) 5000 UNITS/ML VIAL (FIVE THOUSAND) SUBCUT SCH ×3 (06:05→21:11)
[2019-06-13 06:39] LABS: Hematocrit 29 % (35-47); Hemoglobin 9.4 g/dL (12.0-16.0); Mean Corpuscular HGB Conc 32 g/dL (31-36); Mean Corpuscular Hemoglobin 31 pg (27-31); Mean Corpuscular Volume 98 fL (80-97); Mean Platelet Volume 8.3 fL (7.4-10.4); Platelet Count 203 10^3/uL (150-450); Red Blood Count 3.01 10^6 /uL (3.70-4.87); Red Cell Distribution Width 16 % (10-15); White Blood Count 8.6 10^3/uL (3.5-10.8)
[2019-06-13 06:47] LABS: Albumin 2.9 g/dL (3.2-5.2); BUN/Creatinine Ratio 6.1 (8-20); Calcium 9.4 mg/dL (8.6-10.3); EGFR African American 18.5 (>60); EGFR Non-African American 15.3 (>60); Globulin 2.9 g/dL (2-4); Magnesium 2.3 mg/dL (1.9-2.7); Phosphorus 3.8 mg/dL (2.5-5.0); Potassium 3.2 mmol/L (3.5-5.0); Total Bilirubin 0.4 mg/dL (0.2-1.0); Total Protein 5.8 g/dL (6.4-8.9)
[2019-06-13] MEDS: Pantoprazole IV* 40 MG IV SCH (08:13)
[2019-06-13] MEDS: Sertraline* 50 MG TAB PO SCH (08:13)
[2019-06-13] MEDS: Aspirin 81 mg CHEW TAB* 81 MG TAB.CHEW PO SCH (08:13)
[2019-06-13] MEDS: Lactobacillus Acidophilus* 1 TAB PO SCH (08:13)
[2019-06-13] MEDS: Clopidogrel TAB* 75 MG PO SCH (08:13)
[2019-06-13] MEDS: Acetaminophen TAB* 325 MG PO PRN (09:08)
--- NOTE | 2019-06-13 10:03 | PN ---
Date of Service: 06/13/19 - HD 18 Critical Care Services: 58 yo F presents to ED from [facility] on 05/27 with shortness of breath , cough and weakness x 1 week. Not improved with outpatient abx therapy. On evaluation in ED tachypneic to 24. Sats 100%. Physical exam notable for moderate respiratory distress. Bibasilar crackes and rhonchi in RUL present. 2 + edema in lower extremities. WBC 9.0, BUN 28 and Cr 5.08. CXR with increased interstitial markings consistent with fluid overload. EKG NSR. Started on Duonebs. ABG with CO2 retention. Started on BiPAP and admitted to hospitalist/ ICU. Tolerated HD (was scheduled for outpatient that day) without hypotension. Weaned off BiPAP 05/28: Encephalopathy resolved after BiPAP. Repeat ABG shows resolution of CO2 retention. Edema and respiratory status improved after HD. Quinn cultured for fever. Continued on Zosyn and Vancomycin. Hypertension resolved after HD. Pt requested change in code status from DNR/DNI to FULL CODE with trial of intubation. Downgraded from ICU to telemetry floor. 05/29: Noted to have excessive upper airway secretions. HD again with 1L removal. Blood cultures NGTD; antibiotics discontinued. 05/30: Feeling worse. More short of breath and cough. Tachypnea and crackles now noted. ABX restarted (Ceftriaxone and Azithromycin). Pulmonary edema recurred. 05/31: More fatigued. Refusing food today. ABX changed back to Vancomycin and Zosyn 06/01: HD. 06/03: couldn't sleep because of cough. 06/04: Appears worse. Sleepy and short of breath. ABG with hypercarbia. Difficulty tolerating BiPAP due to anxiety. 06/05: Nephrology recommending diagnostic and therapeutic thoracentesis of left pleural cavity. 06/06: Transferred to ICU for increasing hypercarbia and hypoxia. Amlodipine discontinued for hypotension. Benzodiazepines held as it was felt that they might be contributing to encephalopathy. CXR with obstruction of left mainstem bronchus by mucus plug. 06/07: Intubated for acute on chronic hypoxic and hypercarbic respiratory failure. Postintubation RICKEY reexpanded but LLL with postobstructive infiltrate presumed pneumonia. Difficult intubation, airway anterior 06/08: failed SBT. HD done. 06/09: ABX stopped as >10d course. Failed SBT. Family considering tracheostomy. 06/10: Thoracentesis for therapeutic and diagnostic effect done on left pleural effusion. Failed SBT. Further discussions with patient's son regarding issues surrounding tracheostomy. He is appropriately hesitant as he feels that her ability to talk and eat are two of her few remaining pleasures in life. He also would like to be sure it is absolutely necessary before proceeding. He is aware that we have approximately 7-10 days on the ETT before we need to decide. 06/11: Passed SBT and successfully extubated. Son and patient discussed and decided on DNR/DNI. 06/12: Passed swallow eval and started on diet. Working with PT. 06/13: No overnight events Vital Signs: Temp Pulse Resp BP SpO2 FiO2 97.6 F 77 21 155/106 100 40 06/13/19 07:55 06/13/19 09:45 06/13/19 09:45 06/13/19 09:30 06/13/19 09:45 06/11 12:00 Physical Exam: Gen: awake, resting in bed HEENT: NC in place Lungs: CTAB. Voice stronger today Cardiac: RRR Abdomen: soft, NTND Extremities: warm, dry, no edema Neuro: alert, oriented. Fluid Balance (Past 24 Hours): I= O= Net Intake & Output 06/11/19 06/12/19 06/13/19 06/14/19 06:59 06:59 06:59 06:59 Intake Total 2395 524 250.1 0 Output Total 200 0 0 Balance 2195 524 250.1 0 Weight 115 lb 13.89 oz 117 lb 11 oz 119 lb 0.794 oz Intake: IV Fluids 781 154 230.1 ABX - ZOSYN 188.2 NS (0.9%) 781 154 41.9 IVPB 289 20 ABX - VANCOMYCIN 176 ABX - ZOSYN 113 20 Medicated IV 114 28 CC - Propofol/Diprivan 114 28 Oral 0 0 Tube Feeding 841 242 Tube Feeding Flush Amount 370 100 Output: Urine 0 0 Other 200 Other: Estimated Void Medium Estimated Stool Amount Small Small Other Amount Description PLEURAL FLUID Labs: Laboratory Results - last 24 hr 06/10/19 06/10/19 06/10/19 15:15 15:15 15:15 WBC RBC Hgb Hct MCV MCH MCHC RDW Plt Count MPV Sodium Potassium Chloride Carbon Dioxide Anion Gap BUN Creatinine Est GFR ( Amer) Est GFR (Non-Af Amer) BUN/Creatinine Ratio Glucose Calcium Phosphorus Magnesium Total Bilirubin AST ALT Alkaline Phosphatase Total Protein Albumin Globulin Albumin/Globulin Ratio Fluid Source Pleural Pleural Pleural Fluid Glucose 110 Fluid Total Protein 2.8 Fluid LDH 82 06/13/19 06/13/19 06:00 06:00 WBC 8.6 RBC 3.01 L Hgb 9.4 L Hct 29 L MCV 98 H MCH 31 MCHC 32 RDW 16 H Plt Count 203 MPV 8.3 Sodium 141 Potassium 3.2 L Chloride 99 L Carbon Dioxide 32 Anion Gap 10 BUN 19 Creatinine 3.13 H Est GFR ( Amer) 18.5 Est GFR (Non-Af Amer) 15.3 BUN/Creatinine Ratio 6.1 L Glucose 78 Calcium 9.4 Phosphorus 3.8 Magnesium 2.3 Total Bilirubin 0.40 AST 11 L ALT 6 L Alkaline Phosphatase 120 H Total Protein 5.8 L Albumin 2.9 L Globulin 2.9 Albumin/Globulin Ratio 1.0 Fluid Source Fluid Glucose Fluid Total Protein Fluid LDH Studies: 06/10 CXR - congestive heart failure vs pneumonia, unchanged. no PTX. 06/09 CXR - mixed interstitial and alveolar pulmonar edema with decreased aeration of RLL. Small bilateral pleural effusions. Cardiomegaly. 06/07 CXR - pulmonary edema likely with a small to moderate left lower lung pleural effusion vs consolidation. unchanged from prior. 06/06 CXR - Pulmonary edema likely with left lung base pleural effusion. 06/06 CXR - interval placement of ETT> Vascular congestion likely with left lower lobe pleural effusion. Improved aeration compared to 06/05 CXR 06/05 CT chest- bilateral infiltrates and small bilateral pleural effusions. Mucus plug in distal left mainstem bronchus and lower lobe and lingular bronchi. 06/05 CXR - Cardiomegaly with intersitial edema. LLL airspace disease and likely left pleural effusion. 05/31 CXR - pulmonary interstitial edema. Bilateral pleural effusions iwth bibasilar atelectasis vs consolidation. Nutrition: soft diet Impression: 58 yo F with PMH including COPD and recent pulmonary infection admitted on with RLL pneumonia. Initially managed on floor however developed mucus plugging of L main bronchus with post obstructive pneumonia in LLL. Transferred to ICU and intubated for acute respiratory failure on 06/06. Difficult intubation. Extubated 06/11. Plan: Plan: Hospital Diagnoses: #1: Acute on chronic hypoxic and hypercapneic respiratory failure #2: Sepsis #3: Bilateral lower lobe pneumonia #4: Pulmonary edema Cardiovascular: (1) Chronic HTN;(2) CAD with hx of prior [place], (3) chronic systolic CHF; (4) hx of cardiomegaly; (5) Hypercholesterolemia; (6) hx of murmur ; (7) hx of bradycardia -- HR 65-93 -- SBP 99-165 -- Telemetry -- ASA and Plavix -- Atorvastatin -- resume home carvedilol, start at low dose and titrate up as able Home meds: Atorvastatin, Aliskiren, Carvedilol, Plavix, ASA, Amlodipine, Nitroglycerine Pulmonary: (1) Acute on chronic hypoxic and hypercapneic respiratory failure, improving; (2) Bilateral lower lobe pneumonia, resolving; (3) Pulmonary edema, bilateral; (4) COPD; (5) Recent respiratory infection prior to admission; (6) hx of pleural effusions -- RR - -- sats 88-100 on 5L NC -- PRN Duonebs -- Pulmonary toilet Home meds: Albuterol, 3L home O2 Gastrointestinal: (1) hx of dysphagia; (2) hx of diverticulosis; (3) GERD; (4) hx of PUD -- diet: regular diet with soft texture -- bowel regimen: none -- ulcer prophylaxis: Protonix -- Lactobacillus Home meds: Zofran, Prilosec, Immodium, Lactobacillus, Simethicone Endocrine: No acute issues -- monitor BGs Home meds: None Renal: (1) ESRD on dialysis; (2) Hypomagnesemia, resolved; (3) Hypokalemia; (4 ) Polycystic kidney disease -- UOP: anuric at baseline -- Cr 4.74 from 3.17 -- Lytes Na 141 from 141 K 3.2, monitor, HD patient Ca 9.4 Mag 2.3 Phos 3.8 -- Phoslo -- Nephrology following Home meds: Phoslo, Dialyvite Infectious disease: (1) Sepsis, resolving (2) Bilateral lower lobe pneumonia, resolving; (3) past hx of VRE -- Tmax 100.2 -- WBC 8.6 from 11.0 -- Micro 06/10 Pleural NGTD 06/06 sputum yeast, normal victoriano 05/27 blood negative MRSA negative -- ABX Zosyn Vancomycin Home meds: topical nystatin, Augmentin Neurologic: (1) Chronic depression and anxiety; (2) Chronic pain syndrome; (3) hx of prior CVA; (4) hx of seizures; (5) hx of brain aneurysm x 5 -- PRN Tylenol -- PRN Morphine -- Zoloft -- PT Home meds: Tylenol, Zoloft, Atarax, Melatonin, Buspar Hematological: (1) Anemia, chronic -- Hgb 9.4 form 9.6, follow trend -- Plt 203 from 190 -- DVT prophylaxis: SQ Heparin -- ASA and Plavix -- Epogen Home meds: Plavix, ASA Metabolic: No acute issues Home meds: None Other: (1) Rheumatoid arthritis; (2) hx of osteoporosis Home meds: None Deep vein thrombosis prophylaxis: SQ Heparin Dietary: Protonix Condition: serious Prognosis: guarded Code status: full Disposition: continue ICU Care Family updated at bedside regarding interval events and plan of care Cumulative time spent in the care of this patient (excluding any procedure time) : at least 30 minutes. Patient care included clinical interview (with patient and/or family), bedside exam of the patient, review of labs, x-rays, and other ancillary data, coordination of (respiratory, nursing care, review of patient's records, discussion regarding patients management with involved consultants, primary physician, pharmacists, and other healthcare personnel (dietary, case management , physical/occupational therapy etc.) Critical Care Time: none
[2019-06-13] MEDS: Carvedilol TAB* 6.25 MG PO SCH ×2 (10:26→20:49)
[2019-06-13] MEDS: ZOSYN 3.375 GM Q12H per EXTENDED INFUSION IVPB SCH ×4 (10:26→23:02)
[2019-06-13] MEDS: Atorvastatin* 20 MG TAB PO SCH (20:49)
[2019-06-13] MEDS: Morphine INJ* 2 MG/ML 1 ML SYRINGE (TWO MG - NEW SYRINGE VERSION) IV PRN (21:11)
[2019-06-14 04:19] LABS: Hematocrit 29 % (35-47); Hemoglobin 9.3 g/dL (12.0-16.0); Mean Corpuscular HGB Conc 33 g/dL (31-36); Mean Corpuscular Hemoglobin 32 pg (27-31); Mean Corpuscular Volume 97 fL (80-97); Mean Platelet Volume 7.6 fL (7.4-10.4); Platelet Count 217 10^3/uL (150-450); Red Blood Count 2.93 10^6 /uL (3.70-4.87); Red Cell Distribution Width 16 % (10-15); White Blood Count 8.2 10^3/uL (3.5-10.8)
[2019-06-14 04:37] LABS: Albumin/Globulin Ratio 1.2 (1-3); BUN/Creatinine Ratio 6.7 (8-20); Calcium 9.2 mg/dL (8.6-10.3); EGFR African American 13.2 (>60); EGFR Non-African American 10.9 (>60); Globulin 2.6 g/dL (2-4); Magnesium 2.3 mg/dL (1.9-2.7); Phosphorus 4.5 mg/dL (2.5-5.0); Potassium 3.3 mmol/L (3.5-5.0); Total Bilirubin 0.4 mg/dL (0.2-1.0); Total Protein 5.6 g/dL (6.4-8.9)
[2019-06-14] MEDS: Heparin VIAL(*) 5000 UNITS/ML VIAL (FIVE THOUSAND) SUBCUT SCH ×4 (06:04→21:35)
[2019-06-14] MEDS ORDERED: Potassium Chloride* LIQUID 20 MEQ/15 ML UDC PO ONE (09:02)
[2019-06-14] MEDS: Lactobacillus Acidophilus* 1 TAB PO SCH (09:28)
[2019-06-14] MEDS: Carvedilol TAB* 6.25 MG PO SCH ×2 (09:28→21:26)
[2019-06-14] MEDS: Aspirin 81 mg CHEW TAB* 81 MG TAB.CHEW PO SCH (09:28)
[2019-06-14] MEDS: Pantoprazole IV* 40 MG IV SCH (09:29)
[2019-06-14] MEDS: Acetaminophen TAB* 325 MG PO PRN ×2 (09:29→21:29)
[2019-06-14] MEDS: Sertraline* 50 MG TAB PO SCH (09:29)
[2019-06-14] MEDS: Clopidogrel TAB* 75 MG PO SCH (09:29)
[2019-06-14] MEDS ORDERED: Labetalol IV* 5 MG/ML 20 ML VIAL IV PUSH PRN (10:55)
[2019-06-14] MEDS: ZOSYN 3.375 GM Q12H per EXTENDED INFUSION IVPB SCH ×4 (10:59→21:30)
--- NOTE | 2019-06-14 10:59 | PN ---
Date of Service: 06/14/19 - HD 19 Critical Care Services: 58 yo F presents to ED from [facility] on 05/27 with shortness of breath , cough and weakness x 1 week. Not improved with outpatient abx therapy. On evaluation in ED tachypneic to 24. Sats 100%. Physical exam notable for moderate respiratory distress. Bibasilar crackes and rhonchi in RUL present. 2 + edema in lower extremities. WBC 9.0, BUN 28 and Cr 5.08. CXR with increased interstitial markings consistent with fluid overload. EKG NSR. Started on Duonebs. ABG with CO2 retention. Started on BiPAP and admitted to hospitalist/ ICU. Tolerated HD (was scheduled for outpatient that day) without hypotension. Weaned off BiPAP 05/28: Encephalopathy resolved after BiPAP. Repeat ABG shows resolution of CO2 retention. Edema and respiratory status improved after HD. Quinn cultured for fever. Continued on Zosyn and Vancomycin. Hypertension resolved after HD. Pt requested change in code status from DNR/DNI to FULL CODE with trial of intubation. Downgraded from ICU to telemetry floor. 05/29: Noted to have excessive upper airway secretions. HD again with 1L removal. Blood cultures NGTD; antibiotics discontinued. 05/30: Feeling worse. More short of breath and cough. Tachypnea and crackles now noted. ABX restarted (Ceftriaxone and Azithromycin). Pulmonary edema recurred. 05/31: More fatigued. Refusing food today. ABX changed back to Vancomycin and Zosyn 06/01: HD. 06/03: couldn't sleep because of cough. 06/04: Appears worse. Sleepy and short of breath. ABG with hypercarbia. Difficulty tolerating BiPAP due to anxiety. 06/05: Nephrology recommending diagnostic and therapeutic thoracentesis of left pleural cavity. 06/06: Transferred to ICU for increasing hypercarbia and hypoxia. Amlodipine discontinued for hypotension. Benzodiazepines held as it was felt that they might be contributing to encephalopathy. CXR with obstruction of left mainstem bronchus by mucus plug. 06/07: Intubated for acute on chronic hypoxic and hypercarbic respiratory failure. Postintubation RICKEY reexpanded but LLL with postobstructive infiltrate presumed pneumonia. Difficult intubation, airway anterior 06/08: failed SBT. HD done. 06/09: ABX stopped as >10d course. Failed SBT. Family considering tracheostomy. 06/10: Thoracentesis for therapeutic and diagnostic effect done on left pleural effusion. Failed SBT. Further discussions with patient's son regarding issues surrounding tracheostomy. He is appropriately hesitant as he feels that her ability to talk and eat are two of her few remaining pleasures in life. He also would like to be sure it is absolutely necessary before proceeding. He is aware that we have approximately 7-10 days on the ETT before we need to decide. 06/11: Passed SBT and successfully extubated. Son and patient discussed and decided on DNR/DNI. 06/12: Required NT suctioning several times overnight. Passed swallow eval and started on diet. Working with PT. 06/13: Voice stronger. Coughing up secretions well. 06/14: No overnight events. Vital Signs: Temp Pulse Resp BP SpO2 FiO2 97.4 F 80 16 143/77 100 40 06/14/19 07:45 06/14/19 09:15 06/14/19 09:15 06/14/19 09:00 06/14/19 09:15 06/11 12:00 Physical Exam: Gen: resting comfortably HEENT: NC in place Lungs: nonlabored breathing Cardiac: RRR Abdomen: nondistended Extremities: dry, no edema. moving equally Neuro: sleeping Fluid Balance (Past 24 Hours): I= O= Net Intake & Output 06/12/19 06/13/19 06/14/19 06/15/19 06:59 06:59 06:59 06:59 Intake Total 524 250.1 276 120 Output Total 0 0 Balance 524 250.1 276 120 Weight 117 lb 11 oz 119 lb 0.794 oz 116 lb 9.992 oz Intake: IV Fluids 154 230.1 100 ABX - ZOSYN 188.2 100 NS (0.9%) 154 41.9 IVPB 20 111 ABX - ZOSYN 20 111 Medicated IV 28 CC - Propofol/Diprivan 28 Oral 0 65 120 Tube Feeding 242 Tube Feeding Flush Amount 100 Output: Urine 0 0 Other: Estimated Void Medium Date of Last Bowel 06/13/2019 Movement # Bowel Movements 1 Estimated Stool Amount Small Small Small Labs: Laboratory Results - last 24 hr 06/14/19 06/14/19 04:15 04:15 WBC 8.2 RBC 2.93 L Hgb 9.3 L Hct 29 L MCV 97 MCH 32 H MCHC 33 RDW 16 H Plt Count 217 MPV 7.6 Sodium 139 Potassium 3.3 L Chloride 99 L Carbon Dioxide 31 Anion Gap 9 BUN 28 H Creatinine 4.20 H Est GFR ( Amer) 13.2 Est GFR (Non-Af Amer) 10.9 BUN/Creatinine Ratio 6.7 L Glucose 92 Calcium 9.2 Phosphorus 4.5 Magnesium 2.3 Total Bilirubin 0.40 AST 11 L ALT 7 Alkaline Phosphatase 103 Total Protein 5.6 L Albumin 3.0 L Globulin 2.6 Albumin/Globulin Ratio 1.2 Studies: 06/10 CXR - congestive heart failure vs pneumonia, unchanged. no PTX. 06/09 CXR - mixed interstitial and alveolar pulmonar edema with decreased aeration of RLL. Small bilateral pleural effusions. Cardiomegaly. 06/07 CXR - pulmonary edema likely with a small to moderate left lower lung pleural effusion vs consolidation. unchanged from prior. 06/06 CXR - Pulmonary edema likely with left lung base pleural effusion. 06/06 CXR - interval placement of ETT> Vascular congestion likely with left lower lobe pleural effusion. Improved aeration compared to 06/05 CXR 06/05 CT chest- bilateral infiltrates and small bilateral pleural effusions. Mucus plug in distal left mainstem bronchus and lower lobe and lingular bronchi. 06/05 CXR - Cardiomegaly with intersitial edema. LLL airspace disease and likely left pleural effusion. 05/31 CXR - pulmonary interstitial edema. Bilateral pleural effusions iwth bibasilar atelectasis vs consolidation. Nutrition: soft diet Impression: 58 yo F with PMH including COPD and recent pulmonary infection admitted on with RLL pneumonia. Initially managed on floor however developed mucus plugging of L main bronchus with post obstructive pneumonia in LLL. Transferred to ICU and intubated for acute respiratory failure on 06/06. Difficult intubation. Extubated 1/2. Now with increasing strength. Plan: Hospital Diagnoses: #1: Acute on chronic hypoxic and hypercapneic respiratory failure #2: Bilateral lower lobe pneumonia #3: Essential HTN #4: Pulmonary edema Cardiovascular: (1) Chronic essential HTN;(2) CAD with hx of prior [place], (3) chronic systolic CHF; (4) hx of cardiomegaly; (5) Hypercholesterolemia; (6) hx of murmur; (7) hx of bradycardia -- HR 68-90 -- SBP 129-176 -- Telemetry -- ASA and Plavix -- Atorvastatin -- Carvedilol increased, titrate up as able to home dose Home meds: Atorvastatin, Aliskiren, Carvedilol, Plavix, ASA, Amlodipine, Nitroglycerine Pulmonary: (1) Acute on chronic hypoxic and hypercapneic respiratory failure, improving; (2) Bilateral lower lobe pneumonia, resolving; (3) Pulmonary edema, bilateral; (4) COPD; (5) Recent respiratory infection prior to admission; (6) hx of pleural effusions -- RR 10-34 -- sats 98-100 on 5L NC -- PRN Duonebs -- Pulmonary toilet Home meds: Albuterol, 3L home O2 Gastrointestinal: (1) hx of dysphagia; (2) hx of diverticulosis; (3) GERD; (4) hx of PUD -- diet: regular diet with soft texture -- bowel regimen: none -- ulcer prophylaxis: Protonix -- Lactobacillus Home meds: Zofran, Prilosec, Imodium, Lactobacillus, Simethicone Endocrine: No acute issues -- monitor BGs Home meds: None Renal: (1) ESRD on dialysis; (2) Hypomagnesemia, resolved; (3) Hypokalemia; (4 ) Polycystic kidney disease -- UOP: anuric at baseline -- Cr 4.2 from 3.13 -- Lytes Na 139 from 141 K 3.3, monitor, HD patient Ca 9.2 Mag 2.3 Phos 4.5 -- Phoslo -- Nephrology following Home meds: Phoslo, Dialyvite Infectious disease: (1) Sepsis, resolving (2) Bilateral lower lobe pneumonia, resolving; (3) past hx of VRE -- Tmax 97.9 -- WBC 8.2 from 8.6 -- Micro 06/10 Pleural Negative 06/06 sputum yeast, normal victoriano 05/27 blood negative MRSA negative -- ABX Zosyn Vancomycin Home meds: topical nystatin, Augmentin Neurologic: (1) Chronic depression and anxiety; (2) Chronic pain syndrome; (3) hx of prior CVA; (4) hx of seizures; (5) hx of brain aneurysm x 5 -- PRN Tylenol -- PRN Morphine -- Zoloft -- PT Home meds: Tylenol, Zoloft, Atarax, Melatonin, Buspar Hematological: (1) Anemia, chronic -- Hgb 9.3 from 9.4 -- Plt 217 from 203 -- DVT prophylaxis: SQ Heparin -- ASA and Plavix -- Epogen Home meds: Plavix, ASA Metabolic: No acute issues Home meds: None Other: (1) Rheumatoid arthritis; (2) hx of osteoporosis Home meds: None Deep vein thrombosis prophylaxis: SQ Heparin Dietary: Protonix Condition: serious Prognosis: good Code status: full Disposition: transfer to floor Son updated via phone regarding interval events and plan of care Cumulative time spent in the care of this patient (excluding any procedure time) : at least 30 minutes. Patient care included clinical interview (with patient and/or family), bedside exam of the patient, review of labs, x-rays, and other ancillary data, coordination of (respiratory, nursing care, review of patient's records, discussion regarding patients management with involved consultants, primary physician, pharmacists, and other healthcare personnel (dietary, case management , physical/occupational therapy etc.) Critical Care Time: none
[2019-06-14] MEDS: Zinc Oxide 16% PASTE* (Butt Paste) 1 TUBE TOPICAL SCH ×2 (12:27→21:26)
[2019-06-14] MEDS: Atorvastatin* 20 MG TAB PO SCH (21:25)
[2019-06-15] MEDS: Morphine INJ* 2 MG/ML 1 ML SYRINGE (TWO MG - NEW SYRINGE VERSION) IV PRN ×4 (02:35→20:19)
--- NOTE | 2019-06-15 04:07 | PN ---
Progress Note - Progress Note Date of Service: 06/15/19 Note: Cross cover Called to evaluate pain in lower abdomen Received heparin and developed progressively bigger area of tenderness in periumbilical region Area is tender and indurated. Suspect represents underlying hematoma US abd with instructions for SOFT tissue ordered Pt refusing heparin - discontinued and SCDs ordered
[2019-06-15 05:35] LABS: Hematocrit 27 % (35-47); Hemoglobin 8.7 g/dL (12.0-16.0); Mean Corpuscular HGB Conc 32 g/dL (31-36); Mean Corpuscular Hemoglobin 32 pg (27-31); Mean Corpuscular Volume 98 fL (80-97); Platelet Count 226 10^3/uL (150-450); Red Blood Count 2.74 10^6 /uL (3.70-4.87); Red Cell Distribution Width 16 % (10-15); White Blood Count 7.4 10^3/uL (3.5-10.8)
[2019-06-15 05:49] LABS: Albumin 2.8 g/dL (3.2-5.2); BUN/Creatinine Ratio 6.7 (8-20); Calcium 9.2 mg/dL (8.6-10.3); EGFR African American 9.5 (>60); EGFR Non-African American 7.9 (>60); Globulin 2.7 g/dL (2-4); Magnesium 2.3 mg/dL (1.9-2.7); Phosphorus 4.3 mg/dL (2.5-5.0); Potassium 3.8 mmol/L (3.5-5.0); Total Bilirubin 0.3 mg/dL (0.2-1.0); Total Protein 5.5 g/dL (6.4-8.9)
[2019-06-15] MEDS ORDERED: Vancomycin Random Level* NOTE FOLLOW UP ONE (06:00)
[2019-06-15 06:11] LABS: Vancomycin Random 19.9 mcg/mL
--- NOTE | 2019-06-15 08:46 | PN ---
Progress Note - Progress Note Date of Service: 06/15/18 Note: Chief complaint end-stage kidney disease, volume overload Interval history: Mrs. Charles has improved. She was extubated and transferred to the regular medical floor. Breathing is improved and she still requires supplemental 02. She c/o cough, raspy voice and abdominal pain. No SOB at rest. She can get up in the chair, without losing balance. Appetite is improving. She denies n/v/c/d. ROS: as above Meds: Acetaminophen (Tylenol Tab*) 650 mg PO Q6H PRN PRN Reason: PAIN - MILD Last Admin: 06/14/19 21:29 Dose: 650 mg Albuterol/Ipratropium (Duoneb (Albuterol 2.5 Mg/Ipratropium 0.5 Mg)) 1 neb INH Q4H PRN PRN Reason: SOB/WHEEZING Last Admin: 06/12/19 02:26 Dose: 1 neb Aspirin (Aspirin 81 Mg Chew Tab*) 81 mg PO DAILY [facility] Last Admin: 06/14/19 09:28 Dose: 81 mg Atorvastatin Calcium (Lipitor*) 20 mg PO BEDTIME [facility] Last Admin: 06/14/19 21:25 Dose: 20 mg Carvedilol (Coreg Tab*) 12.5 mg PO BID [facility] Last Admin: 06/14/19 21:26 Dose: 12.5 mg Clopidogrel Bisulfate (Plavix Tab*) 75 mg PO DAILY [facility] Last Admin: 06/14/19 09:29 Dose: 75 mg Piperacillin Sod/Tazobactam (Sod 3.375 gm/ Sodium Chloride) 100 mls @ 25 mls/ hr IVPB Q12H [facility] Stop: 06/16/19 23:00 Last Admin: 06/14/19 21:30 Dose: 25 mls/hr Labetalol HCl (Trandate Iv*) 5 mg IV PUSH Q6H PRN PRN Reason: BLOOD PRESSURE Lactobacillus Rhamnosus (Lactobacillus Acidophilus*) 1 tab PO DAILY [facility] Last Admin: 06/14/19 09:28 Dose: 1 tab Morphine Sulfate (Morphine Inj (Syringe))*) 2 mg IV Q2H PRN PRN Reason: PAIN - SEVERE Last Admin: 06/15/19 04:35 Dose: 2 mg Nystatin (Nystatin Oint*) 1 applic TOPICAL DAILY PRN PRN Reason: GROIN RASH Last Admin: 06/12/19 14:35 Dose: 1 applic Pantoprazole Sodium (Protonix Tab*) 40 mg PO DAILY [facility] Petrolatum (Vaseline*) 5 gm TOPICAL .PRN PRN PRN Reason: DRY SKIN Pharmacy Consult (Zosyn Per Pharmacy*) 1 note FOLLOW UP .ZOSYN PER PHARMACY [facility] Pharmacy Consult (Vancomycin Per Pharmacy*) 1 note FOLLOW UP .VANC PER PHARMACY [facility]; Protocol Sertraline HCl (Zoloft*) 50 mg PO DAILY [facility] Last Admin: 06/14/19 09:29 Dose: 50 mg Zinc Oxide (Nemesio's Butt Paste) 1 applic TOPICAL TID [facility] Last Admin: 06/14/19 21:26 Dose: 1 applic Physical exam: Temp Pulse Resp BP Pulse Ox 98.2 F 77 16 144/69 100 06/15/19 04:00 06/15/19 04:00 06/15/19 05:35 06/15/19 04:00 06/15/19 04:00 Constitutional: Lying in bed, looking ill but in no apparent distress Chest: Diffuse rhonchi Heart: S1-S2, regular rate and rhythm, harsh 2/6 systolic murmur, trace to +1 LE edema . Abdomen: Soft but tender especially in the epigastrium Neuro: speech is fluent Psychiatric: AAOx3, mood is appropriate Labs: Abnormal Lab Results 06/15/19 06/15/19 05:02 05:02 WBC 7.4 RBC 2.74 L Hgb 8.7 L Hct 27 L MCV 98 H MCH 32 H MCHC 32 RDW 16 H Plt Count 226 MPV 8.0 Sodium 142 Potassium 3.8 Chloride 102 Carbon Dioxide 31 Anion Gap 9 BUN 37 H Creatinine 5.55 H Est GFR ( Amer) 9.5 Est GFR (Non-Af Amer) 7.9 BUN/Creatinine Ratio 6.7 L Glucose 91 Calcium 9.2 Phosphorus 4.3 Magnesium 2.3 Total Bilirubin 0.30 AST 9 L ALT 6 L Alkaline Phosphatase 97 Total Protein 5.5 L Albumin 2.8 L Globulin 2.7 Albumin/Globulin Ratio 1.0 Random Vancomycin 19.9 Assessment and plan: 1. End-stage kidney disease - last dialysis on Saturday - plan for HD today Rx: 3K, 2.5 Ca, 32 HCO3, 3 hrs, 3L UF. Meds : Epogen 10, 000 units and heparin 2. Respiratory failure markedly improved. 3. Anemia of chronic kidney disease - No need for blood transfusions. - Epo with dialysis 4. Hypophosphatemia: - resolved off Sevelamer
[2019-06-15] MEDS: Clopidogrel TAB* 75 MG PO SCH (09:00)
[2019-06-15] MEDS: Aspirin 81 mg CHEW TAB* 81 MG TAB.CHEW PO SCH (09:01)
[2019-06-15] MEDS: Pantoprazole TAB * 40 MG TAB PO SCH (09:01)
[2019-06-15] MEDS: Carvedilol TAB* 6.25 MG PO SCH ×2 (09:01→20:12)
[2019-06-15] MEDS: Zinc Oxide 16% PASTE* (Butt Paste) 1 TUBE TOPICAL SCH ×4 (09:01→22:00)
[2019-06-15] MEDS: Sertraline* 50 MG TAB PO SCH (09:01)
[2019-06-15] MEDS: Lactobacillus Acidophilus* 1 TAB PO SCH (09:01)
[2019-06-15] MEDS ORDERED: EPOETIN ALFA-EPBX * 10,000 UNIT/ML VIAL IV ONE (11:00)
[2019-06-15] MEDS ORDERED: Heparin DIALYSIS ONLY(*) 1,000 UNITS/ML VIAL DIALYSIS ONE (11:00)
[2019-06-15] MEDS: ZOSYN 3.375 GM Q12H per EXTENDED INFUSION IVPB SCH ×4 (13:55→22:45)
--- NOTE | 2019-06-15 14:44 | PN ---
Subjective Date of Service: 06/15/19 Interval History: abdominal pain continued overnight and an US suggestive of large hematoma in a band suprapubically. She woke up with the pain on Saturday AM. BP dropped (81/56) after the first 686 cc removed during HD and they ultimately took off less fluid then wanted ( net 826 ml ), she developed a headache. loose dark BM reported in HD barky cough. 5L. feeling "infinetly better" overall. Objective Active Medications: Acetaminophen (Tylenol Tab*) 650 mg PO Q6H PRN PRN Reason: PAIN - MILD Last Admin: 06/14/19 21:29 Dose: 650 mg Albuterol/Ipratropium (Duoneb (Albuterol 2.5 Mg/Ipratropium 0.5 Mg)) 1 neb INH Q4H PRN PRN Reason: SOB/WHEEZING Last Admin: 06/12/19 02:26 Dose: 1 neb Aspirin (Aspirin 81 Mg Chew Tab*) 81 mg PO DAILY [facility] Last Admin: 06/15/19 09:01 Dose: 81 mg Atorvastatin Calcium (Lipitor*) 20 mg PO BEDTIME [facility] Last Admin: 06/14/19 21:25 Dose: 20 mg Carvedilol (Coreg Tab*) 12.5 mg PO BID [facility] Last Admin: 06/15/19 09:01 Dose: 12.5 mg Clopidogrel Bisulfate (Plavix Tab*) 75 mg PO DAILY [facility] Last Admin: 06/15/19 09:00 Dose: 75 mg Hydroxyzine HCl (Atarax Tab*) 10 mg PO Q6H PRN PRN Reason: ANXIETY Piperacillin Sod/Tazobactam (Sod 3.375 gm/ Sodium Chloride) 100 mls @ 25 mls/ hr IVPB Q12H [facility] Stop: 06/16/19 23:00 Last Admin: 06/15/19 13:55 Dose: 25 mls/hr Vancomycin HCl 500 mg/ Sodium (Chloride) 250 mls @ 166.667 mls/hr IVPB ONCE ONE Stop: 06/15/19 18:29 Labetalol HCl (Trandate Iv*) 5 mg IV PUSH Q6H PRN PRN Reason: BLOOD PRESSURE Lactobacillus Rhamnosus (Lactobacillus Acidophilus*) 1 tab PO DAILY [facility] Last Admin: 06/15/19 09:01 Dose: 1 tab Morphine Sulfate (Morphine Inj (Syringe))*) 2 mg IV Q2H PRN PRN Reason: PAIN - SEVERE Last Admin: 06/15/19 14:09 Dose: 2 mg Nft: Folic Acid/B Cplx/C/Selen/Zinc [ Dialyvite 3,000 Tablet] 1 Each) 1 each PO DAILY [facility] Nystatin (Nystatin Oint*) 1 applic TOPICAL DAILY PRN PRN Reason: GROIN RASH Last Admin: 06/12/19 14:35 Dose: 1 applic Pantoprazole Sodium (Protonix Tab*) 40 mg PO DAILY [facility] Last Admin: 06/15/19 09:01 Dose: 40 mg Petrolatum (Vaseline*) 5 gm TOPICAL .PRN PRN PRN Reason: DRY SKIN Pharmacy Consult (Zosyn Per Pharmacy*) 1 note FOLLOW UP .ZOSYN PER PHARMACY [facility] Pharmacy Consult (Vancomycin Per Pharmacy*) 1 note FOLLOW UP .VANC PER PHARMACY [facility]; Protocol Sertraline HCl (Zoloft*) 50 mg PO DAILY [facility] Last Admin: 06/15/19 09:01 Dose: 50 mg Zinc Oxide (Nemesio's Butt Paste) 1 applic TOPICAL TID [facility] Last Admin: 06/15/19 14:04 Dose: Not Given Vital Signs - 8 hr 06/15/19 06/15/19 06/15/19 07:23 09:24 14:09 Temperature 98.3 F Pulse Rate 77 Respiratory 18 18 12 Rate Blood Pressure 140/61 (mmHg) O2 Sat by Pulse 100 Oximetry Oxygen Devices in Use Now: Nasal Cannula Appearance: NAD, chronically ill appearing. Eyes: No Scleral Icterus Respiratory: - - coarse breath sounds b/l Cardiovascular: NL Sounds; No Murmurs; No JVD Abdominal: - - large hematoma in band across lower abdomen. Extremities: No Edema Skin: No Rash or Ulcers Neurological: Alert and Oriented x 3 Nutrition: Taking PO's Result Diagrams: 06/15/19 05:02 06/15/19 05:02 Additional Lab and Data: Laboratory Results - last 24 hr 06/10/19 06/15/19 06/15/19 15:15 05:02 05:02 WBC 7.4 RBC 2.74 L Hgb 8.7 L Hct 27 L MCV 98 H MCH 32 H MCHC 32 RDW 16 H Plt Count 226 MPV 8.0 Sodium 142 Potassium 3.8 Chloride 102 Carbon Dioxide 31 Anion Gap 9 BUN 37 H Creatinine 5.55 H Est GFR ( Amer) 9.5 Est GFR (Non-Af Amer) 7.9 BUN/Creatinine Ratio 6.7 L Glucose 91 Calcium 9.2 Phosphorus 4.3 Magnesium 2.3 Total Bilirubin 0.30 AST 9 L ALT 6 L Alkaline Phosphatase 97 Total Protein 5.5 L Albumin 2.8 L Globulin 2.7 Albumin/Globulin Ratio 1.0 Fluid Source None given Fluid pH 8.0 Random Vancomycin 19.9 Microbiology and Other Data: Microbiology 06/15/19 18:46 Stool Stool Occult Blood (HANNAH) - Final 06/10/19 15:15 Pleural Fluid Gram Stain - Final 06/10/19 15:15 Pleural Fluid Body Fluid Culture - Final No Growth Day 4 06/06/19 19:45 Sputum Trach Gram Stain - Final 06/06/19 19:45 Sputum Trach Sputum Culture - Final YEAST Normal Bridgette 05/27/19 16:56 Blood Venous Aerobic Blood Culture - Final No Growth Day 5 05/27/19 16:56 Blood Venous Anaerobic Blood Culture - Final No Growth Day 5 05/27/19 08:22 Nasal Nasal Screen MRSA (PCR) - Final Mrsa Not Detected Assess/Plan/Problems-Billing Assessment: 58 yo female PMH of PCKD and ESRD on hemodialysis MWF, HTN, HFpEf, depression presented to the ED with increasing SOB found with hypercarbic/hypoxic respiratory failure requiring ICU and BiPAP with stay notable for PNA; worsening hypoxia requiring intubation and ICU transfer. On IV abx-vanc and zosyn; - Patient Problems (1) Acute hypercapnic respiratory failure Current Visit: Yes Status: Acute Code(s): J96.02 - ACUTE RESPIRATORY FAILURE WITH HYPERCAPNIA SNOMED Code(s): 294425382 Comment: -secondary to pneumonia-bilateral; some component of volume overload -s/p intubated-difficult intubation-mulitple attempts; ETT #6.5 - completed 14 days of iv vanc and zosyn on 06/09 but got worse off and is back on. (2) (HFpEF) heart failure with preserved ejection fraction Current Visit: Yes Status: Acute Code(s): I50.30 - UNSPECIFIED DIASTOLIC ( CONGESTIVE) HEART FAILURE SNOMED Code(s): 199321640 Comment: -euvolemic at present -last echo in 1/1/20- EF 55-60% (3) Pneumonia Current Visit: Yes Status: Acute Code(s): J18.9 - PNEUMONIA, UNSPECIFIED ORGANISM SNOMED Code(s): 117328260 Comment: CT chest on 06/05 revealing for multifocal PNA -course c/b plugging of left mainstem bronchus - pulmonary constult to discuss bronch Now continues on vanco/zosyn (4) Rheumatoid arthritis Current Visit: Yes Status: Acute Code(s): M06.9 - RHEUMATOID ARTHRITIS, UNSPECIFIED SNOMED Code(s): 38547980 Comment: - Longstanding chronic pain 2/2 RA - Currently controlled (5) Anemia Current Visit: Yes Status: Chronic Code(s): D64.9 - ANEMIA, UNSPECIFIED SNOMED Code(s): 005092664 Comment: - H/H slightly lower than baseline likely due to critical illness, ESRD and multiple blood draws - dark stool today and stool occult blood positive. - also Secondary to Chronic disease/ESRD - Continue supportive care (6) ESRD (end stage renal disease) Current Visit: Yes Status: Chronic Priority: Medium Code(s): N18.6 - END STAGE RENAL DISEASE SNOMED Code(s): 85759532 Comment: -HD sat/sat/sat -HD today- removed <1L (7) CAD (coronary artery disease) Current Visit: No Status: Acute Code(s): I25.10 - ATHSCL HEART DISEASE OF [place] CORONARY ARTERY W/O ANG PCTRS SNOMED Code(s): 65052802 Comment: - Continue statin, carvedilol - continue asa, plavix (8) DNR (do not resuscitate) Current Visit: No Status: Acute (9) Abdominal hematoma Current Visit: Yes Status: Acute Code(s): S30.1XXA - CONTUSION OF ABDOMINAL WALL, INITIAL ENCOUNTER SNOMED Code(s): 114689228 Comment: monitor Status and Disposition: Inpatient. from [facility]
[2019-06-15] MEDS: FOLIC ACID PO SCH (16:23)
[2019-06-15] MEDS: ZINC PO SCH (16:23)
[2019-06-15] MEDS: ASCORBIC ACID PO SCH (16:23)
[2019-06-15] MEDS: SELENIUM PO SCH (16:23)
[2019-06-15] MEDS: VITAMIN B COMPLEX PO SCH (16:23)
[2019-06-15] MEDS ORDERED: Vancomycin(*) 500 MG in NS 0.9% 250 ML* 250 ML IVPB ONE (17:00)
[2019-06-15] MEDS: Atorvastatin* 20 MG TAB PO SCH (20:09)
[2019-06-15] MEDS: Acetaminophen TAB* 325 MG PO PRN (21:53)
[2019-06-16] MEDS: hydrOXYzine HCL TAB* 10 MG PO PRN (00:46)
[2019-06-16] MEDS: Aspirin 81 mg CHEW TAB* 81 MG TAB.CHEW PO SCH (10:37)
[2019-06-16] MEDS: Pantoprazole TAB * 40 MG TAB PO SCH (10:37)
[2019-06-16] MEDS: VITAMIN B COMPLEX PO SCH (10:37)
[2019-06-16] MEDS: Clopidogrel TAB* 75 MG PO SCH (10:37)
[2019-06-16] MEDS: Lactobacillus Acidophilus* 1 TAB PO SCH (10:37)
[2019-06-16] MEDS: FOLIC ACID PO SCH (10:37)
[2019-06-16] MEDS: ASCORBIC ACID PO SCH (10:37)
[2019-06-16] MEDS: ZINC PO SCH (10:37)
[2019-06-16] MEDS: SELENIUM PO SCH (10:37)
[2019-06-16] MEDS: Carvedilol TAB* 6.25 MG PO SCH ×2 (10:37→20:28)
[2019-06-16 10:38] LABS: ABS Eosinophils 0.7 10^3/ul (0-0.6); ABS Lymphocytes 1.2 10^3/ul (1.0-4.8); ABS Monocytes 0.5 10^3/ul (0-0.8); ABS Neutrophils 4.7 10^3/ul (1.5-7.7); Hematocrit 28 % (35-47); Lymphocyte % 16.5 %; Mean Corpuscular HGB Conc 32 g/dL (31-36); Mean Corpuscular Hemoglobin 31 pg (27-31); Mean Corpuscular Volume 98 fL (80-97); Mean Platelet Volume 7.6 fL (7.4-10.4); Platelet Count 263 10^3/uL (150-450); Red Blood Count 2.88 10^6 /uL (3.70-4.87); Red Cell Distribution Width 16 % (10-15); White Blood Count 7.1 10^3/uL (3.5-10.8)
[2019-06-16] MEDS: Sertraline* 50 MG TAB PO SCH (10:41)
[2019-06-16] MEDS: Zinc Oxide 16% PASTE* (Butt Paste) 1 TUBE TOPICAL SCH ×3 (10:42→20:44)
[2019-06-16 10:59] LABS: BUN/Creatinine Ratio 5.1 (8-20); EGFR African American 17.1 (>60); EGFR Non-African American 14.1 (>60); Potassium 3.9 mmol/L (3.5-5.0)
--- NOTE | 2019-06-16 11:39 | PN ---
Progress Note - Progress Note Date of Service: 06/16/19 Note: Chief complaint: End-stage kidney disease on hemodialysis History of present illness: I saw Mrs. Charles in her room today. She was sitting in chair in no acute distress. She still requires oxygen 5 L per nasal cannula. She is a mouth breather though not consistently use 5 L. She denies shortness of breath at rest. Denies chest pain as well. Still has abdominal pain and she was diagnosed with an abdominal wall hematoma. Apparently she dropped her blood pressure during dialysis yesterday which made fluid removal difficult. The net UF on dialysis was only 900 cc. ROS: as above and Constitutional: no fevers or chills. Appetite improving. CVS: no cp or palpitations. no leg swelling Respiratory: Respiratory is, cough with sputum production. Medications: Acetaminophen (Tylenol Tab*) 650 mg PO Q6H PRN PRN Reason: PAIN - MILD Last Admin: 06/15/19 21:53 Dose: 650 mg Albuterol/Ipratropium (Duoneb (Albuterol 2.5 Mg/Ipratropium 0.5 Mg)) 1 neb INH Q4H PRN PRN Reason: SOB/WHEEZING Last Admin: 06/12/19 02:26 Dose: 1 neb Aspirin (Aspirin 81 Mg Chew Tab*) 81 mg PO DAILY [facility] Last Admin: 06/16/19 10:37 Dose: 81 mg Atorvastatin Calcium (Lipitor*) 20 mg PO BEDTIME [facility] Last Admin: 06/15/19 20:09 Dose: 20 mg Carvedilol (Coreg Tab*) 12.5 mg PO BID [facility] Last Admin: 06/16/19 10:37 Dose: 12.5 mg Clopidogrel Bisulfate (Plavix Tab*) 75 mg PO DAILY [facility] Last Admin: 06/16/19 10:37 Dose: 75 mg Hydroxyzine HCl (Atarax Tab*) 10 mg PO Q6H PRN PRN Reason: ANXIETY Last Admin: 06/16/19 00:46 Dose: 10 mg Piperacillin Sod/Tazobactam (Sod 3.375 gm/ Sodium Chloride) 100 mls @ 25 mls/ hr IVPB Q12H [facility] Stop: 06/16/19 23:00 Last Admin: 06/15/19 22:45 Dose: 25 mls/hr Labetalol HCl (Trandate Iv*) 5 mg IV PUSH Q6H PRN PRN Reason: BLOOD PRESSURE Lactobacillus Rhamnosus (Lactobacillus Acidophilus*) 1 tab PO DAILY [facility] Last Admin: 06/16/19 10:37 Dose: 1 tab Morphine Sulfate (Morphine Inj (Syringe))*) 2 mg IV Q2H PRN PRN Reason: PAIN - SEVERE Last Admin: 06/15/19 20:19 Dose: 2 mg Nft: Folic Acid/B Cplx/C/Selen/Zinc [ Dialyvite 3,000 Tablet] 1 Each) 1 each PO DAILY [facility] Last Admin: 06/16/19 10:37 Dose: Not Given Nystatin (Nystatin Oint*) 1 applic TOPICAL DAILY PRN PRN Reason: GROIN RASH Last Admin: 06/12/19 14:35 Dose: 1 applic Pantoprazole Sodium (Protonix Tab*) 40 mg PO DAILY [facility] Last Admin: 06/16/19 10:37 Dose: 40 mg Petrolatum (Vaseline*) 5 gm TOPICAL .PRN PRN PRN Reason: DRY SKIN Pharmacy Consult (Zosyn Per Pharmacy*) 1 note FOLLOW UP .ZOSYN PER PHARMACY [facility] Pharmacy Consult (Vancomycin Per Pharmacy*) 1 note FOLLOW UP .VANC PER PHARMACY [facility]; Protocol Sertraline HCl (Zoloft*) 50 mg PO DAILY [facility] Last Admin: 06/16/19 10:41 Dose: 50 mg Zinc Oxide (Nemesio's Butt Paste) 1 applic TOPICAL TID [facility] Last Admin: 06/16/19 10:42 Dose: 1 applic Physical exam: Temp Pulse Resp BP Pulse Ox 99.3 F 76 19 143/63 100 06/15/19 23:11 06/15/19 23:11 06/16/19 08:00 06/15/19 23:11 06/15/19 23:11 Constitutional: 58-year-old woman looking older than her stated age, sitting in chair in no apparent distress. Respiratory: Barrel chest, decreased air entry in both lung curry and crackles at the right base. No wheezes or rhonchi bilaterally. Cardiovascular: S1-S2 normal, regular rate and rhythm, harsh 2/6 systolic murmur , no rubs or gallops appreciated Neurological: Speech fluent, Psychiatric: Alert and oriented 3, mood appropriate, judgment and insight seem to be normal. Labs Abnormal Lab Results 06/10/19 06/16/19 06/16/19 15:15 10:32 10:32 WBC 7.1 RBC 2.88 L Hgb 9.0 L Hct 28 L MCV 98 H MCH 31 MCHC 32 RDW 16 H Plt Count 263 MPV 7.6 Neut % (Auto) 65.7 Lymph % (Auto) 16.5 [place] % (Auto) 7.6 Eos % (Auto) 10.0 Baso % (Auto) 0.2 Absolute Neuts (auto) 4.7 Absolute Lymphs (auto) 1.2 Absolute Monos (auto) 0.5 Absolute Eos (auto) 0.7 H Absolute Basos (auto) 0.0 Absolute Nucleated RBC 0.0 Nucleated RBC % 0.0 Sodium 137 Potassium 3.9 Chloride 101 Carbon Dioxide 29 Anion Gap 7 BUN 17 Creatinine 3.35 H Est GFR ( Amer) 17.1 Est GFR (Non-Af Amer) 14.1 BUN/Creatinine Ratio 5.1 L Glucose 111 H Calcium 9.0 Fluid Source None given Fluid pH 8.0 Assessment and plan : 1. ESRD on HD MWF - Limited volume removal yesterday due to hypotension during dialysis. - Dialysis nurse will communicate with the floor nurse to hold off blood pressure medications before dialysis tomorrow. She can take her blood pressure medications after dialysis. - Plan for dialysis tomorrow. 2. Hypoxemic respiratory failure. It is unclear if at this point this is due to pneumonia versus volume overload. Please get a chest x-ray today. This was already communicated with Dr. Doug Reyes. 3. Anemia of end-stage kidney disease on Epogen with Dialysis.
[2019-06-16] MEDS: ZOSYN 3.375 GM Q12H per EXTENDED INFUSION IVPB SCH ×4 (13:40→22:12)
--- NOTE | 2019-06-16 15:09 | PN ---
Subjective Date of Service: 06/16/19 Interval History: No acute events overnight. Afebrile on 5-> 6-> 4.5L. Coughing is less frequent pain in her sacral area. no BM today. CXR repeated today, similar to 06/10 with e/o pleural effusion, atelectasis and interstitial edema. Objective Active Medications: Acetaminophen (Tylenol Tab*) 650 mg PO Q6H PRN PRN Reason: PAIN - MILD Last Admin: 06/15/19 21:53 Dose: 650 mg Albuterol/Ipratropium (Duoneb (Albuterol 2.5 Mg/Ipratropium 0.5 Mg)) 1 neb INH Q4H PRN PRN Reason: SOB/WHEEZING Last Admin: 06/12/19 02:26 Dose: 1 neb Aspirin (Aspirin 81 Mg Chew Tab*) 81 mg PO DAILY [facility] Last Admin: 06/16/19 10:37 Dose: 81 mg Atorvastatin Calcium (Lipitor*) 20 mg PO BEDTIME [facility] Last Admin: 06/15/19 20:09 Dose: 20 mg Carvedilol (Coreg Tab*) 12.5 mg PO BID [facility] Last Admin: 06/16/19 10:37 Dose: 12.5 mg Clopidogrel Bisulfate (Plavix Tab*) 75 mg PO DAILY [facility] Last Admin: 06/16/19 10:37 Dose: 75 mg Hydroxyzine HCl (Atarax Tab*) 10 mg PO Q6H PRN PRN Reason: ANXIETY Last Admin: 06/16/19 00:46 Dose: 10 mg Piperacillin Sod/Tazobactam (Sod 3.375 gm/ Sodium Chloride) 100 mls @ 25 mls/ hr IVPB Q12H [facility] Stop: 06/16/19 23:00 Last Admin: 06/16/19 13:40 Dose: 25 mls/hr Labetalol HCl (Trandate Iv*) 5 mg IV PUSH Q6H PRN PRN Reason: BLOOD PRESSURE Lactobacillus Rhamnosus (Lactobacillus Acidophilus*) 1 tab PO DAILY [facility] Last Admin: 06/16/19 10:37 Dose: 1 tab Morphine Sulfate (Morphine Inj (Syringe))*) 2 mg IV Q2H PRN PRN Reason: PAIN - SEVERE Last Admin: 06/15/19 20:19 Dose: 2 mg Nft: Folic Acid/B Cplx/C/Selen/Zinc [ Dialyvite 3,000 Tablet] 1 Each) 1 each PO DAILY [facility] Last Admin: 06/16/19 10:37 Dose: Not Given Nystatin (Nystatin Oint*) 1 applic TOPICAL DAILY PRN PRN Reason: GROIN RASH Last Admin: 06/12/19 14:35 Dose: 1 applic Pantoprazole Sodium (Protonix Tab*) 40 mg PO DAILY [facility] Last Admin: 06/16/19 10:37 Dose: 40 mg Petrolatum (Vaseline*) 5 gm TOPICAL .PRN PRN PRN Reason: DRY SKIN Pharmacy Consult (Zosyn Per Pharmacy*) 1 note FOLLOW UP .ZOSYN PER PHARMACY [facility] Sertraline HCl (Zoloft*) 50 mg PO DAILY [facility] Last Admin: 06/16/19 10:41 Dose: 50 mg Zinc Oxide (Nemesio's Butt Paste) 1 applic TOPICAL TID [facility] Last Admin: 06/16/19 13:41 Dose: Not Given Vital Signs - 8 hr 06/16/19 08:00 Respiratory 19 Rate Oxygen Devices in Use Now: Nasal Cannula Appearance: NAD, sitting in chair Neck: NL Appearance and Movements; NL JVP, Trachea Midline Respiratory: - - rhonchi b/l, no wheezing or rales. Abdominal: - - tender along large hematoma across inferior band, otherwise soft Extremities: No Edema Skin: No Rash or Ulcers Neurological: Alert and Oriented x 3 Nutrition: Taking PO's Result Diagrams: 06/16/19 10:32 06/16/19 10:32 Additional Lab and Data: Laboratory Results - last 24 hr 06/16/19 06/16/19 10:32 10:32 WBC 7.1 RBC 2.88 L Hgb 9.0 L Hct 28 L MCV 98 H MCH 31 MCHC 32 RDW 16 H Plt Count 263 MPV 7.6 Neut % (Auto) 65.7 Lymph % (Auto) 16.5 [place] % (Auto) 7.6 Eos % (Auto) 10.0 Baso % (Auto) 0.2 Absolute Neuts (auto) 4.7 Absolute Lymphs (auto) 1.2 Absolute Monos (auto) 0.5 Absolute Eos (auto) 0.7 H Absolute Basos (auto) 0.0 Absolute Nucleated RBC 0.0 Nucleated RBC % 0.0 Sodium 137 Potassium 3.9 Chloride 101 Carbon Dioxide 29 Anion Gap 7 BUN 17 Creatinine 3.35 H Est GFR ( Amer) 17.1 Est GFR (Non-Af Amer) 14.1 BUN/Creatinine Ratio 5.1 L Glucose 111 H Calcium 9.0 Microbiology and Other Data: Microbiology 06/15/19 18:46 Stool Stool Occult Blood (HANNAH) - Final 06/10/19 15:15 Pleural Fluid Gram Stain - Final 06/10/19 15:15 Pleural Fluid Body Fluid Culture - Final No Growth Day 4 06/06/19 19:45 Sputum Trach Gram Stain - Final 06/06/19 19:45 Sputum Trach Sputum Culture - Final YEAST Normal Bridgette 05/27/19 16:56 Blood Venous Aerobic Blood Culture - Final No Growth Day 5 05/27/19 16:56 Blood Venous Anaerobic Blood Culture - Final No Growth Day 5 05/27/19 08:22 Nasal Nasal Screen MRSA (PCR) - Final Mrsa Not Detected Diagnostic Imaging: Patient Name: EDWARDO GUILLEN Medical Record#: [id number] Ordering Physician: Danya Pizarro MD Acct.#: [id number] : 1960 Age: 58 Sex: F Location: EMERGENCY DEPARTMENT Exam Date: 05/27/19437 ADM Status: REG ER Order Information: CHEST AP OR PORT Accession Number: [id number] CPT: 03537 INDICATION: Shortness of breath. COMPARISON: Comparison is made with a prior chest x-ray study from April. TECHNIQUE: A portable view of the chest was obtained. FINDINGS: There is a central venous catheter entering on the right side. The catheter tip projects over the region of the right atrium. The heart is moderately enlarged. There are diffuse prominence of the interstitial markings and small to moderate size bilateral pleural effusions which appear unchanged most consistent with congestive heart failure. IMPRESSION: FINDINGS MOST CONSISTENT WITH CONGESTIVE HEART FAILURE, UNCHANGED. R0 Preliminary Imaging Read R0 <Electronically signed by Rell Baeza MD in OV> 05/27/19 6375 Assess/Plan/Problems-Billing Assessment: 58 yo female PMH of PCKD and ESRD on hemodialysis MWF, HTN, HFpEf, chronic hypoxic respiratory failure (2-3L) depression presented to the ED with increasing SOB found with hypercarbic/hypoxic respiratory failure requiring ICU and BiPAP with stay notable for PNA; worsening hypoxia requiring intubation 05/18 and extubated 06/11. To floor 06/14. Just finishing a second course of abx-vanc and zosyn. - Patient Problems (1) Acute hypercapnic respiratory failure Current Visit: Yes Status: Acute Code(s): J96.02 - ACUTE RESPIRATORY FAILURE WITH HYPERCAPNIA SNOMED Code(s): 803973035 Comment: - thought secondary to pneumonia-bilateral and volume overload -s/p intubated-difficult intubation-mulitple attempts; ETT #6.5 - completed 14 days of iv vanc and zosyn on 06/09 but got worse off and is back on until today which will be last. (2) (HFpEF) heart failure with preserved ejection fraction Current Visit: Yes Status: Acute Code(s): I50.30 - UNSPECIFIED DIASTOLIC ( CONGESTIVE) HEART FAILURE SNOMED Code(s): 761415231 Comment: -repeat CXR with continued evidence of intersitial edema, pleural effusion. - volume removal as tolerated - hold coreg in AM on HD days. -last echo in 06/10/19- EF 55-60% (3) Pneumonia Current Visit: Yes Status: Acute Code(s): J18.9 - PNEUMONIA, UNSPECIFIED ORGANISM SNOMED Code(s): 648989148 Comment: CT chest on 06/05 revealing for multifocal PNA -course c/b plugging of left mainstem bronchus Now continues on vanco/zosyn, completing 7 day course today (had already done 14 days previous in this admission. (4) Rheumatoid arthritis Current Visit: Yes Status: Acute Code(s): M06.9 - RHEUMATOID ARTHRITIS, UNSPECIFIED SNOMED Code(s): 35599136 Comment: - Longstanding chronic pain 2/2 RA - Currently controlled (5) Anemia Current Visit: Yes Status: Chronic Code(s): D64.9 - ANEMIA, UNSPECIFIED SNOMED Code(s): 815479028 Comment: - H/H slightly lower than baseline likely due to abdominal hematoma, critical illness, ESRD and multiple blood draws - dark stool reported 06/15 and stool occult blood positive. No BM today. Never had a colonoscopy and not that eager to get one. - Continue supportive care (6) ESRD (end stage renal disease) Current Visit: Yes Status: Chronic Priority: Medium Code(s): N18.6 - END STAGE RENAL DISEASE SNOMED Code(s): 69556511 Comment: -HD mon/wed/fri -HD tomorrow - hold coreg prior. (7) CAD (coronary artery disease) Current Visit: No Status: Acute Code(s): I25.10 - ATHSCL HEART DISEASE OF [place] CORONARY ARTERY W/O ANG PCTRS SNOMED Code(s): 21652734 Comment: - Continue statin, carvedilol - continue asa, plavix (8) DNR (do not resuscitate) Current Visit: No Status: Acute (9) Abdominal hematoma Current Visit: Yes Status: Acute Code(s): S30.1XXA - CONTUSION OF ABDOMINAL WALL, INITIAL ENCOUNTER SNOMED Code(s): 719300294 Comment: monitor Status and Disposition: Inpatient. from [facility]
[2019-06-16 16:12] LABS: C Reactive Protein 25.2 mg/L (<8.01)
[2019-06-16] MEDS: Atorvastatin* 20 MG TAB PO SCH (20:28)
[2019-06-16] MEDS ORDERED: Melatonin 3 MG TAB PO ONE (21:44)
[2019-06-16] MEDS: Acetaminophen TAB* 325 MG PO PRN (22:11)
[2019-06-17] MEDS: hydrOXYzine HCL TAB* 10 MG PO PRN (09:49)
[2019-06-17] MEDS ORDERED: EPOETIN ALFA-EPBX * 10,000 UNIT/ML VIAL IV ONE (10:30)
[2019-06-17] MEDS ORDERED: Heparin DIALYSIS ONLY(*) 1,000 UNITS/ML VIAL DIALYSIS ONE (11:00)
[2019-06-17] MEDS: Pantoprazole TAB * 40 MG TAB PO SCH (13:51)
[2019-06-17] MEDS: Clopidogrel TAB* 75 MG PO SCH (13:51)
[2019-06-17] MEDS: Aspirin 81 mg CHEW TAB* 81 MG TAB.CHEW PO SCH (13:51)
[2019-06-17] MEDS: Sertraline* 50 MG TAB PO SCH (13:51)
[2019-06-17] MEDS: Carvedilol TAB* 6.25 MG PO SCH ×2 (13:51→22:42)
[2019-06-17] MEDS: Acetaminophen TAB* 325 MG PO PRN ×2 (13:52→23:34)
[2019-06-17] MEDS: Lactobacillus Acidophilus* 1 TAB PO SCH (13:52)
[2019-06-17] MEDS: SELENIUM PO SCH (13:53)
[2019-06-17] MEDS: FOLIC ACID PO SCH (13:53)
[2019-06-17] MEDS: ASCORBIC ACID PO SCH (13:53)
[2019-06-17] MEDS: VITAMIN B COMPLEX PO SCH (13:53)
[2019-06-17] MEDS: ZINC PO SCH (13:53)
[2019-06-17] MEDS: Zinc Oxide 16% PASTE* (Butt Paste) 1 TUBE TOPICAL SCH ×3 (13:53→22:42)
--- NOTE | 2019-06-17 14:44 | PN ---
Progress Note - Progress Note Date of Service: 06/17/19 Note: Inpatient acute HD Note for ESRD Performed by Dr. Arnoldo Tirado, [facility] Nephrology 06/17/2018 ESRD on HD She was seen and examined on HD. Doing well, getting prepared for discharge! HD Routine: MWF HD Duration: 3 Hr UF Goal: 3 L/Rx Vitals: BP: 150-170/70 HR: 75/m Blood Flow: 400 cc/min Dialysate Flow: 600 cc/min Bath: K: 3K Ca: 2.5Ca Na: 138 Hco3: 35 Temp: 36 C Dialyzer: Revaclear 300 Access: Rt IJ TDC No Access Related Issues Meds with HD: EPO 10,000 U MWF Heparin 1,500 u loading Tolerates UF well. No Intradialytic Hypotension
[2019-06-17] MEDS ORDERED: Benzonatate CAP* 100 MG PO PRN (14:57)
[2019-06-17] MEDS ORDERED: guaiFENesin 100 mg/5 ml LIQ unit dose cup PO PRN (14:57)
--- NOTE | 2019-06-17 16:39 | PN ---
Subjective Date of Service: 06/17/19 Interval History: Patient is feeling exhausted after dialysis. Patient still has harsh cough which is bothersome to her. Patient denies SOB, CP, N/V, abdominal pain, diarrhea, dysuria, or other pain. Family History: Unchanged from Admission Social History: Unchanged from Admission Past Medical History: Unchanged from Admission Objective Active Medications: Acetaminophen (Tylenol Tab*) 650 mg PO Q6H PRN PRN Reason: PAIN - MILD Last Admin: 06/17/19 13:52 Dose: 650 mg Albuterol/Ipratropium (Duoneb (Albuterol 2.5 Mg/Ipratropium 0.5 Mg)) 1 neb INH Q4H PRN PRN Reason: SOB/WHEEZING Last Admin: 06/12/19 02:26 Dose: 1 neb Aspirin (Aspirin 81 Mg Chew Tab*) 81 mg PO DAILY [facility] Last Admin: 06/17/19 13:51 Dose: 81 mg Atorvastatin Calcium (Lipitor*) 20 mg PO BEDTIME [facility] Last Admin: 06/16/19 20:28 Dose: 20 mg Benzonatate (Tessalon Cap*) 100 mg PO BID PRN PRN Reason: COUGH Carvedilol (Coreg Tab*) 12.5 mg PO BID [facility] Last Admin: 06/17/19 13:51 Dose: 12.5 mg Clopidogrel Bisulfate (Plavix Tab*) 75 mg PO DAILY [facility] Last Admin: 06/17/19 13:51 Dose: 75 mg Guaifenesin (Robitussin 100 Mg/5ml Liq) 5 ml PO Q4H PRN PRN Reason: COUGH Hydroxyzine HCl (Atarax Tab*) 10 mg PO Q6H PRN PRN Reason: ANXIETY Last Admin: 06/17/19 09:49 Dose: 10 mg Labetalol HCl (Trandate Iv*) 5 mg IV PUSH Q6H PRN PRN Reason: BLOOD PRESSURE Lactobacillus Rhamnosus (Lactobacillus Acidophilus*) 1 tab PO DAILY [facility] Last Admin: 06/17/19 13:52 Dose: 1 tab Morphine Sulfate (Morphine Inj (Syringe))*) 2 mg IV Q2H PRN PRN Reason: PAIN - SEVERE Last Admin: 06/15/19 20:19 Dose: 2 mg Nft: Folic Acid/B Cplx/C/Selen/Zinc [ Dialyvite 3,000 Tablet] 1 Each) 1 each PO DAILY [facility] Last Admin: 06/17/19 13:53 Dose: Not Given Nystatin (Nystatin Oint*) 1 applic TOPICAL DAILY PRN PRN Reason: GROIN RASH Last Admin: 06/12/19 14:35 Dose: 1 applic Pantoprazole Sodium (Protonix Tab*) 40 mg PO DAILY [facility] Last Admin: 06/17/19 13:51 Dose: 40 mg Petrolatum (Vaseline*) 5 gm TOPICAL .PRN PRN PRN Reason: DRY SKIN Pharmacy Consult (Zosyn Per Pharmacy*) 1 note FOLLOW UP .ZOSYN PER PHARMACY [facility] Sertraline HCl (Zoloft*) 50 mg PO DAILY [facility] Last Admin: 06/17/19 13:51 Dose: 50 mg Zinc Oxide (Nemesio's Butt Paste) 1 applic TOPICAL TID [facility] Last Admin: 06/17/19 13:55 Dose: Not Given Vital Signs - 8 hr 06/17/19 06/17/19 09:49 15:47 Respiratory 17 20 Rate Oxygen Devices in Use Now: Nasal Cannula Appearance: Patient is a 58yo female who appears much older than stated age and is sitting in the bed in NAD Eyes: No Scleral Icterus, PERRLA Ears/Nose/Mouth/Throat: NL Teeth, Lips, Gums, - - Ecchymosis in Posterior pharynx. Neck: NL Appearance and Movements; NL JVP, Trachea Midline Respiratory: Symmetrical Chest Expansion and Respiratory Effort, Clear to Auscultation Cardiovascular: NL Sounds; No Murmurs; No JVD, RRR, No Edema Abdominal: No Hepatosplenomegaly, - - Tender in RLQ at site of hematoma. Lymphatic: No Cervical Adenopathy Extremities: No Edema, No Clubbing, Cyanosis Skin: No Nodules or Sclerosis Neurological: Alert and Oriented x 3, NL Sensation, NL Muscle Strength and Tone , - - CN II-XII intact. Result Diagrams: 06/16/19 10:32 06/16/19 10:32 Additional Lab and Data: Laboratory Results - last 24 hr Microbiology and Other Data: Microbiology 06/15/19 18:46 Stool Stool Occult Blood (HANNAH) - Final 06/10/19 15:15 Pleural Fluid Gram Stain - Final 06/10/19 15:15 Pleural Fluid Body Fluid Culture - Final No Growth Day 4 06/06/19 19:45 Sputum Trach Gram Stain - Final 06/06/19 19:45 Sputum Trach Sputum Culture - Final YEAST Normal [place] 05/27/19 16:56 Blood Venous Aerobic Blood Culture - Final No Growth Day 5 05/27/19 16:56 Blood Venous Anaerobic Blood Culture - Final No Growth Day 5 05/27/19 08:22 Nasal Nasal Screen MRSA (PCR) - Final Mrsa Not Detected Assess/Plan/Problems-Billing Assessment: 58 yo female PMH of PCKD and ESRD on hemodialysis MWF, HTN, HFpEf, chronic hypoxic respiratory failure (2-3L) depression presented to the ED with increasing SOB found with hypercarbic/hypoxic respiratory failure requiring ICU and BiPAP with stay notable for PNA; worsening hypoxia requiring intubation 05/18 and extubated 06/11. To floor 06/14. Just finishing a second course of abx-vanc and zosyn. - Patient Problems (1) (HFpEF) heart failure with preserved ejection fraction Current Visit: Yes Status: Acute Code(s): I50.30 - UNSPECIFIED DIASTOLIC ( CONGESTIVE) HEART FAILURE SNOMED Code(s): 589928278 Comment: - Repeat CXR with continued evidence of intersitial edema, pleural effusion. - Volume removal as tolerated - hold coreg in AM on HD days. - Last echo in 06/10/19- EF 55-60% - Continue hyperfiltration per Nephrology on dialysis days as tolerated. (2) Abdominal hematoma Current Visit: Yes Status: Acute Code(s): S30.1XXA - CONTUSION OF ABDOMINAL WALL, INITIAL ENCOUNTER SNOMED Code(s): 541350081 Comment: - Monitor, hold anticoagulants as able. (3) Acute hypercapnic respiratory failure Current Visit: Yes Status: Acute Code(s): J96.02 - ACUTE RESPIRATORY FAILURE WITH HYPERCAPNIA SNOMED Code(s): 238851108 Comment: - Thought secondary to pneumonia-bilateral and volume overload - S/P intubated-difficult intubation-mulitple attempts; ETT #6.5 - Completed 14 days of IV vanc and zosyn on 06/09 but got worse off and finished additional 7 days course. (4) Pneumonia Current Visit: Yes Status: Acute Code(s): J18.9 - PNEUMONIA, UNSPECIFIED ORGANISM SNOMED Code(s): 034228661 Comment: - CT chest on 06/05 revealing for multifocal PNA - Course c/b plugging of left mainstem bronchus - Now continues on vanco/zosyn, completed 7 day course today (had already done 14 days previous in this admission. - Intermittent cough, treat symptomatically. (5) Anemia Current Visit: Yes Status: Chronic Code(s): D64.9 - ANEMIA, UNSPECIFIED SNOMED Code(s): 174408016 Comment: - H/H slightly lower than baseline likely due to abdominal hematoma, critical illness, ESRD and multiple blood draws - dark stool reported 1/6 and stool occult blood positive. No BM today. Never had a colonoscopy and not that eager to get one. - Continue supportive care - Erythropoetin on HD days. (6) Rheumatoid arthritis Current Visit: Yes Status: Acute Code(s): M06.9 - RHEUMATOID ARTHRITIS, UNSPECIFIED SNOMED Code(s): 86252456 Comment: - Longstanding chronic pain 2/2 RA - Currently controlled (7) Anxiety Current Visit: Yes Status: Chronic Priority: High Onset Date: 01/26/14 Code(s): F41.9 - ANXIETY DISORDER, UNSPECIFIED SNOMED Code(s): 36497666 Comment: - Controlled - Continue Atarax PRN (8) ESRD (end stage renal disease) Current Visit: Yes Status: Chronic Priority: Medium Code(s): N18.6 - END STAGE RENAL DISEASE SNOMED Code(s): 23378547 Comment: -HD mon/sat/fri (9) CAD (coronary artery disease) Current Visit: No Status: Acute Code(s): I25.10 - ATHSCL HEART DISEASE OF [place] CORONARY ARTERY W/O ANG PCTRS SNOMED Code(s): 09273430 Comment: - Continue statin, carvedilol - continue asa, plavix (10) DNR (do not resuscitate) Current Visit: No Status: Acute (11) DVT prophylaxis Current Visit: Yes Status: Acute Code(s): WRP2570 - SNOMED Code(s): 827551453 Comment: - Heparin HD days - No SubQ due to Hemtoma - SCDs Status and Disposition: Inpatient. from [facility] D/C in next 1-2 days.
[2019-06-17] MEDS ORDERED: Ondansetron INJ* 2 MG/ML VIAL IV PRN (20:29)
[2019-06-17] MEDS: Atorvastatin* 20 MG TAB PO SCH (22:42)
[2019-06-18 05:49] LABS: ABS Basophils 0.1 10^3/ul (0-0.2); ABS Eosinophils 0.7 10^3/ul (0-0.6); ABS Lymphocytes 1.5 10^3/ul (1.0-4.8); ABS Monocytes 0.5 10^3/ul (0-0.8); ABS Neutrophils 4.7 10^3/ul (1.5-7.7); Eosinophil % 9.7 %; Hematocrit 28 % (35-47); Hemoglobin 9.1 g/dL (12.0-16.0); Lymphocyte % 19.7 %; Mean Corpuscular HGB Conc 33 g/dL (31-36); Mean Corpuscular Hemoglobin 32 pg (27-31); Mean Corpuscular Volume 98 fL (80-97); Mean Platelet Volume 7.5 fL (7.4-10.4); Platelet Count 260 10^3/uL (150-450); Red Blood Count 2.86 10^6 /uL (3.70-4.87); Red Cell Distribution Width 17 % (10-15); White Blood Count 7.6 10^3/uL (3.5-10.8)
[2019-06-18 06:05] LABS: BUN/Creatinine Ratio 4.7 (8-20); Calcium 8.9 mg/dL (8.6-10.3); EGFR African American 18.2 (>60)
[2019-06-18 07:44] VITALS: BP 150/71
[2019-06-18] MEDS: Sertraline* 50 MG TAB PO SCH (09:06)
[2019-06-18] MEDS: Carvedilol TAB* 6.25 MG PO SCH (09:06)
[2019-06-18] MEDS: Lactobacillus Acidophilus* 1 TAB PO SCH (09:06)
[2019-06-18] MEDS: Aspirin 81 mg CHEW TAB* 81 MG TAB.CHEW PO SCH (09:06)
[2019-06-18] MEDS: hydrOXYzine HCL TAB* 10 MG PO PRN (09:06)
[2019-06-18] MEDS: Pantoprazole TAB * 40 MG TAB PO SCH (09:06)
[2019-06-18] MEDS: Clopidogrel TAB* 75 MG PO SCH (09:06)
[2019-06-18] MEDS: FOLIC ACID PO SCH (09:07)
[2019-06-18] MEDS: Acetaminophen TAB* 325 MG PO PRN (09:07)
[2019-06-18] MEDS: ASCORBIC ACID PO SCH (09:07)
[2019-06-18] MEDS: VITAMIN B COMPLEX PO SCH (09:07)
[2019-06-18] MEDS: SELENIUM PO SCH (09:07)
[2019-06-18] MEDS: ZINC PO SCH (09:07)
[2019-06-18] MEDS: Zinc Oxide 16% PASTE* (Butt Paste) 1 TUBE TOPICAL SCH (09:11)
--- NOTE | 2019-06-18 11:57 | DS ---
CC: [facility]; Dr. Tirado, Nephrology * DATE OF ADMISSION: 05/27/2019. DATE OF DISCHARGE: 06/18/2019. ATTENDING PHYSICIAN: Dr. Emilie Hammond * (dictated by CHRISSY Sorensen). PRIMARY DISCHARGE DIAGNOSIS: Community-acquired pneumonia, acute on chronic hypoxic and hypercarbic respiratory failure requiring intubation, now resolved, mucus plugging, possible hospital-acquired pneumonia, sepsis resolved. SECONDARY DISCHARGE DIAGNOSES: End-stage renal disease, on hemodialysis Saturday , Saturday, and Saturday, anxiety, anemia, hypertension, dominant polycystic kidney disease, history of CVA, history of rheumatoid arthritis, history of depression. STUDIES DONE WHILE IN THE HOSPITAL: 1. Chest x-ray on admission showed findings most consistent with congestive heart failure, unchanged. 2. Chest x-ray from 05/31/2019, read as: Pulmonary interstitial edema. Bilateral pleural effusions with bibasilar atelectasis versus consolidation. 3. Chest CT from 06/05/2019, read as: Bilateral infiltrates and small bilateral pleural effusions. Recommend follow-up chest x-rays to resolution. There is an obstructing material present in the distal left mainstem bronchus and lower lobe and lingular bronchi likely with secretions, although nonspecific. Recommend follow-up to resolution. 4. Repeat chest x-ray from 06/06/2019, read as: Gastric tube tip terminating over the air-filled gastric fundus. Chest x-ray findings consistent with pulmonary edema likely with left lung base pleural effusion. 5. Chest x-ray from 06/07/2019, read as: Chest x-ray findings are again consistent with pulmonary edema. Endotracheal tube in place. 6. Transthoracic echocardiogram from 06/10/2019, read as: Left ventricle chamber size is normal. Wall thickness is normal. Systolic function is normal. The estimated ejection fraction is 55 to 60 percent. Left atrium is mildly dilated. Mitral valve with trace regurgitation. Aortic valve with trace regurgitation. Tricuspid valve with mild regurgitation. Pulmonary artery systolic pressure is moderately increased, estimated to be 50 mmHg. 7. Abdomen ultrasound from 06/15/2019 read as: In this context, the nonspecific collection in the anterior abdominal wall, measuring up to 12.8 cm, is favored to be c s s representative of a hematoma. Follow-up imaging in one month is recommended to document expected partial resorption. MEDICATIONS AT DISCHARGE: 1. Lipitor 20 mg p.o. daily. 2. Zofran 4 mg p.o. q.4 hours as needed. 3. Tylenol 500 mg p.o. q.8 hours as needed. 4. Tekturna 300 mg p.o. daily. 5. Sertraline 50 mg p.o. daily. 6. Hydroxyzine 10 mg p.o. q.8 hours as needed. 7. Prilosec 20 mg p.o. daily. 8. Clopidogrel 75 mg p.o. daily. 9. Aspirin 81 mg p.o. daily. 10. Amlodipine 5 mg p.o. daily. 11. Saline one spray both nares q.2 hours as needed. 12. Melatonin 3 mg p.o. daily as needed. 13. Zfm2qylldqf 2 mg p.o. q.4 hours as needed. 14. Minerin cream one application topical at bedtime. 15. Calcium Acetate 1,334 mg p.o. t.i.d. with meals. 16. Buspirone 5 mg p.o. b.i.d. 17. Albuterol 3 ml inhalation q.4 hours as needed. 18. Dialyvite 3,000 one tab p.o. daily. 19. Lactobacillus Acidophilus one tab p.o. daily. 20. Simethicone 80 mg p.o. q.6 hours as needed. 21. Nystatin one application topical b.i.d. 22. Nitroglycerin 0.2 mg transdermal daily. 23. Benzonatate 100 mg p.o. b.i.d. as needed. 24. Carvedilol 12.5 mg p.o. b.i.d., held on the mornings of dialysis. 25. Guaifenesin 5 ml p.o. q.4 hours as needed. New medications at discharge: Benzonatate, Carvedilol, Guaifenesin. Medications discontinued at discharge: Augmentin 500 mg p.o. daily, Carvedilol 50 mg p.o. b.i.d. HOSPITAL COURSE: This is a brief summary of the patient's presentation and extended hospitalization. For more details, please see the history and physical from Annette Mooney NP from 05/28/2019, as well as the extended medical record. In brief, the patient is a 58-year-old female with a past medical history stated above who presented to the emergency department from [facility] with one week of shortness of breath which was thought to be related to a viral infection, though she was placed on Augmentin. The patient had pulmonary edema and fluid overload which was addressed with her hemodialysis ; however, the patient was started on Zosyn and Vancomycin. The patient initially was markedly hypercapnic requiring BiPAP in the ICU. On 05/30/2019, the patient was started on Ceftriaxone and Azithromycin for presumed pneumonia given her lack of improvement of her respiratory status. The patient again had worsening mental status on 05/31/2019. She had a repeat chest x-ray read as above showing possible consolidation. The patient's antibiotics were broadened back to Vancomycin and Zosyn. The patient was able to be transferred out of the ICU for several days while she was continued on Vancomycin and Zosyn; however, despite this, the patient continued to decline with regards to her respiratory status. The patient was found to have recurrent hypercarbia and had difficulty tolerating BiPAP. On 06/07/2019, she was intubated due to failure of BiPAP. It was a difficult intubation with several attempts and concern for aspiration. The patient had a negative flu. The patient remained intubated and was continued on antibiotics. The patient had a thoracentesis for the small pleural effusion seen on her x-ray which revealed likely a transudative effusion. The patient remained intubated until 06/11/2019. The patient was able to be on a diet and have her diet advanced. The patient was found at that time to have abdominal pain with an abdominal ultrasound as above showing a hematoma. The patient continued to improve after her transition to the floor. The patient's oxygen was able to be weaned down. The patient continued to complain of a cough and this was treated symptomatically. The patient had some hypotension with dialysis and her Coreg was held on the mornings of her dialysis. The patient had no other concerns and felt essentially back to her baseline and was stable and amendable for discharge back to [facility] on 06/18/2019. PHYSICAL EXAMINATION: General: The patient is a 58-year-old female who appears older than stated age and is sitting comfortably in bed, in no acute distress. Vital Signs at the time of evaluation: Temperature 97.4, pulse rate 72, respiratory rate 16, oxygen saturation 100 percent on 3.5 liters of oxygen, blood pressure 150/71. HEENT: Head normocephalic, atraumatic. Sclerae anicteric. No conjunctival injection. Nasal mucosa moist. Oral mucosa moist. No pharyngeal erythema, discharge, or exudate. Bilateral posterior pharynx ecchymosis. Neck: Supple, nontender. No lymphadenopathy. No carotid bruits auscultated. No JVD. Cardiac: Regular rate and rhythm. No clicks, murmurs, gallops, or rubs. Pulses are 2+ in the bilateral dorsalis pedis, posterior tibialis, and radial areas. Respiratory: Slight crackles in the left lower lobe. No other adventitious lung sounds. Good air exchange bilaterally. Abdomen: Soft, tender to palpation throughout, large presumed hematoma primarily in the right lower quadrant. Bowel sounds present. Normoactive in all four quadrants. No hepatosplenomegaly. No abdominal bruits auscultated. Genitourinary: No suprapubic or CVA tenderness. Skin: Ecchymosis diffusely. No other rashes or ulcers. Neuro: Cranial nerves II through XII intact. No focal deficits. Alert and oriented times three. Psychiatric: Pleasant and cooperative. DISCHARGE PLAN BY PROBLEM: 1. Pneumonia requiring intubation and 21 total days antibiotics with acute on chronic hypoxic and acute hypercarbic respiratory failure. The patient had a prolonged hospital course as above with presumed pneumonia for which she received a total of 21 days of Vancomycin and Zosyn. The patient's infection seems to have cleared at this time and she is back to her baseline oxygen with only a slight residual cough. The patient was treated symptomatically for this cough. The patient needs no additional inhalers or antibiotics at this time. 2. End-stage renal disease: Hold the patient's Coreg on the mornings of dialysis. 3. Heart failure with preserved ejection fraction. When the patient initially started, the patient appeared to be fluid overloaded. The patient should have her fluid status managed by her vendor manager via hemodialysis. The patient currently appears euvolemic. 4. Hypertension: Continue the patient's Aliskiren. Reduce dose Metoprolol and Amlodipine. 5. Anxiety: Continue the patient's BuSpar and Hydroxyzine. 6. History of CVA: Continue the patient's statin, aspirin, and Plavix. DISPOSITION: To [facility]. CONDITION ON DISCHARGE: Stable. TIME SPENT: Approximately 60 minutes were spent on the discharge of this patient, 30 of which was spent [id number] with the patient obtaining history and physical and discussing treatment plan. CHRISSY SORENSEN [id number]/ANANTH #: [id number] EL
== END 2019-06-18 12:15 | DRG 207 ==
LOC: ED 04:36 → ICU 07:56 → INTOOBSV 07:56 → OBSVTOIN 05-28 11:00 → MEDTELE 05-28 11:06 → ICU 06-06 15:02 → MEDTELE 06-14 17:37
PROVIDERS: ADMIT Internal Medicine; ATTEND Internal Medicine
PROC: 5A09357 Assistance with Respiratory Ventilation, Less than 24 Consecutive Hours, Continuous Positive Airway Pressure (ICD-10-PCS; 2019-05-27)
PROC: 5A1D70Z Performance of Urinary Filtration, Intermittent, Less than 6 Hours Per Day (ICD-10-PCS; 2019-05-27)
PROC: 5A1955Z Respiratory Ventilation, Greater than 96 Consecutive Hours (ICD-10-PCS; 2019-06-06)
PROC: 0BH17EZ Insertion of Endotracheal Airway into Trachea, Via Natural or Artificial Opening (ICD-10-PCS; 2019-06-06)
PROC: 0W9B3ZZ Drainage of Left Pleural Cavity, Percutaneous Approach (ICD-10-PCS; principal; 2019-06-10)
DX: J96.21 Acute and chronic respiratory failure with hypoxia (principal); N18.6 End stage renal disease; J18.9 Pneumonia, unspecified organism; 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 disease with heart failure and with stage 5 chronic kidney disease, or end stage renal disease; I50.32 Chronic diastolic (congestive) heart failure; J91.8 Pleural effusion in other conditions classified elsewhere; G93.40 Encephalopathy, unspecified; J44.0 Chronic obstructive pulmonary disease with (acute) lower respiratory infection; J96.22 Acute and chronic respiratory failure with hypercapnia; E78.5 Hyperlipidemia, unspecified; I25.10 Atherosclerotic heart disease of native coronary artery without angina pectoris; E87.70 Fluid overload, unspecified; M06.9 Rheumatoid arthritis, unspecified; F32.9 Major depressive disorder, single episode, unspecified; Z66 Do not resuscitate; E78.00 Pure hypercholesterolemia, unspecified; M19.90 Unspecified osteoarthritis, unspecified site; F41.9 Anxiety disorder, unspecified; D63.1 Anemia in chronic kidney disease; E83.39 Other disorders of phosphorus metabolism; S30.1XXA Contusion of abdominal wall, initial encounter; T17.990A Other foreign object in respiratory tract, part unspecified in causing asphyxiation, initial encounter; Q61.3 Polycystic kidney, unspecified; Z99.2 Dependence on renal dialysis; Z88.5 Allergy status to narcotic agent; Z91.048 Other nonmedicinal substance allergy status; Z86.73 Personal history of transient ischemic attack (TIA), and cerebral infarction without residual deficits; I25.2 Old myocardial infarction; Z87.891 Personal history of nicotine dependence; Z79.899 Other long term (current) drug therapy; Z79.82 Long term (current) use of aspirin; Z79.02 Long term (current) use of antithrombotics/antiplatelets
CPT/HCPCS: 36415; 36600; 71045; 71046; 71250; 76705; 80048; 80053; 80202; 82270; 82565; 82803; 82945; 83605; 83615; 83735; 83880; 83986; 84100; 84157; 84484; 84520; 85025; 85027; 85610; 86140; 86706; 87040; 87070; 87205; 87340; 87641; 89051; 90935; 93005; 93306; 94002; 94003; 94640; 94660; 94667; 94668; 99284; A9270-GY; G0257; J0330; J0360; J0456; J0696; J1200; J1644; J2060; J2270; J2405; J2543; J2704; J2930; J3010; J3370; J3475; Q5106

== ENCOUNTER 2019-08-14 14:43 | Emergency (ER) | payer MEDICARE, MEDICAID ==
--- OUTSIDE RECORDS SUMMARY | 2019-08-14 15:22 | XMS REPORT | Continuity of Care Document ---
:1960 External Reference #:[id number] Author Name Timi Vega (transmitted by agent of provider Annette Mancilla) Address [address] [address] Care Team Providers Name Role Phone Jet Bianchi M.D. - Nephrology Care Team Information [employer] Person Problems Description No Information Available Social History Type Date Description Comments Sex Unknown Tobacco Use Start: Unknown Patient has never smoked Smoking Status Reviewed: 09/02/18 Patient has never smoked Allergies, Adverse Reactions, Alerts Active Allergies Reaction Severity Comments Date Codeine 04/01/2018 Adhesives skin tear 04/01/2018 Lorazepam patient states can not tolerae 05/08/2018 Medications Active Medications SIG Qnty Indications Ordering Provider Date Guiatuss po prn Timi Vega 06/23/2019 100mg/5ML Syrup Zofran 1 tab by mouth Unknown 4mg Tablets every 6 hours Tessalon Perles take one Unknown 100mg tablet/capsule by Capsules mouth at bedtime. as needed for cough Carvedilol 1 tab po qd and 1 Unknown 12.5mg Tablets tab po qtues,thurs,sat,s un Tylenol Extra Strength 500 mg po prn Unknown 500mg Tablets Eucerin apply daily as Unknown Cream directed Albuterol Sulfate every 4 hours prn Unknown sob (2.5mg/3ML) 0.083% Nebulizer Saline Nasal [place] q 2 hrs prn Unknown 0.65% Solution Melatonin 1 po q hs Unknown 3mg Capsules Dialyvite po qd Unknown Calcium Acetate (Phos 2 po before meals Unknown Binder) 667mg Tablets Buspirone HCL 15 mg po bid Unknown 5mg Tablets Amlodipine Besylate 1/2 by mouth Unknown 5mg every day Tablets Tekturna po qd Unknown 300mg Tablets Sertraline HCL po qd Unknown 50mg Tablets Omeprazole po qd Unknown 20mg Capsules DR Clopidogrel Bisulfate po qd Unknown 75mg Tablets [...] type Z99.2 Dependence on renal dialysis Z79.01 rn long term care (current) use of anticoagulants Z79.82 rn long term care (current) use of aspirin Z86.73 Prsnl hx of TIA (TIA), and cereb infrc w/o resid deficits Z68.1 Body mass index (BMI) 19.9 or less, adult Assessments Date Code Description Provider 06/23/2019 N18.6 End stage renal disease Timi Vega 06/23/2019 Q61.2 Polycystic kidney, adult type Timi Vega 06/23/2019 Z99.2 Dependence on renal dialysis Timi Vega 04/30/2019 N18.6 End stage renal disease RAUL Gallardo 04/30/2019 Q61.2 Polycystic kidney, adult type Latisha Barahona, [facility] 04/30/2019 Z99.2 Dependence on renal dialysis Latisha Barahona, [facility] 04/30/2019 Z68.20 Body mass index (BMI) 20.0-20.9, adult Latisha Barahona, [facility] 04/16/2019 N18.6 End stage renal disease Vega Timi 04/16/2019 Q61.2 Polycystic kidney, adult type Gary, Timi 04/16/2019 Z99.2 Dependence on renal dialysis Vega, Timi 04/16/2019 Z79.01 rn long term care (current) use of anticoagulants VegaRadha baileyTimi 04/16/2019 Z79.82 rn long term care (current) use of aspirin VegaTerri baileymo 04/16/2019 Z86.73 Personal history of transient ischemic [...] M.D. Scheduled 03/12/2019 [address] [facility] [place] [facility] [address] [phone]
--- OUTSIDE RECORDS SUMMARY | 2019-08-14 15:22 | XMS REPORT | Continuity of Care Document ---
:1960 External Reference #:[id number] Author Name Jet Coronel M.D. (transmitted by agent of provider Kimberly Henry) Address [address] [place] [id number] Care Team Providers Name Role Phone Letty Duffy MD - Family Care Team Information Information Management Specialist [phone] Medicine Problems Active Problems Provider Date Congestive heart failure Flori Pleitez D.O. 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 Difficulty breathing Carmela Jo N.PMartin Onset: 08/28/2011 Benign essential hypertension Carmela Jo NXiomara Onset: 09/18/2011 Multiple congenital cysts of kidney Kate Verduzco M.D. Onset: 05/17/2014 End-stage renal disease Kate Verduzco M.D. Onset: 05/17/2014 Essential hypertension Kate Verduzco M.D. Onset: 06/14/2014 Chronic pulmonary heart disease Kate Verduzco M.D. Onset: 05/10/2015 Mitral valve disorder Kate Verduzco M.D. Onset: 05/10/2015 Tricuspid valve disorder, non-rheumatic Kate Verduzco M.D. Onset: 05/10/2015 Late effects of cerebrovascular disease Karen Lugo MD Onset: 08/31/2015 Nonruptured cerebral aneurysm Karen Lugo MD Onset: 08/31/2015 Major depressive disorder, single episode, Karen Lugo MD Onset: 08/31/2015 unspecified Cerebral artery occlusion Kate Verduzco M.D. Onset: 12/06/2015 Cardiomyopathy, unspecified Kate Verduzco M.D. Onset: 12/06/2015 Abnormal gait Karen Lugo MD Onset: 03/07/2016 Chronic combined systolic and diastolic Kate Verduzco M.D. Onset: 04/26/2016 heart failure Brachial neuritis Karen Lugo MD Onset: 09/19/2016 Patent foramen ovale Karen Lugo MD Onset: 10/19/2016 Carpal tunnel syndrome of right wrist Karen Lugo MD Onset: 01/09/2017 Muscle atrophy Karen Lugo MD Onset: 09/09/2017 Other symptoms and signs involving Karen Lugo MD Onset: 09/09/2017 cognitive functions and awareness Disorder of pericardium Kate Verduzco M.D. Onset: 02/03/2019 Cardiomyopathy Kate Verduzco M.D. Onset: 02/03/2019 Social History Type Date Description Comments Sex Unknown Tobacco Use Start: Unknown End: Unknown Former Cigarette Smoker ETOH Use Rarely consumes alcohol Recreational Drug Use Denies Drug Use Tobacco Use Start: Unknown Patient has never smoked Smoking Status Reviewed: 07/23/19 Patient has never smoked Exercise Type/Frequency Exercises regularly Allergies, Adverse Reactions, Alerts Active Allergies Reaction Severity Comments Date Codeine gi distress 03/20/2011 Tape sensitvity to skin ok to use Silk tape 01/28/2015 Nitro Patch - Adhesive (adhesive part) - skin 05/10/2015 irritation Adhesive per patient 12/06/2015 Isosorbide Dinitrate hypertension 05/09/2017 Medications Active Medications SIG Qnty Indications Ordering Provider Date Aspirin 1 by mouth daily Karen Lugo MD 08/31/2015 81mg Tablets Tessalon Perles take one capsule Unknown 100mg every 8 hours as Capsules needed Simethicone 1 tab every 6 hours Unknown 80mg as needed bloating Chewtabs Melatonin ER 1-2 tab at bedtime Unknown 5mg for sleep Tablets ER Dronabinol at bedtime daily Unknown 2.5mg Capsules Dialyvite 3000 Unknown 3mg Tablets Tylenol Extra 1-2 tabs by mouth Unknown Strength every 6 hours as 500mg Tablets needed Saline Nasal [place] 1-2 sprays to each Unknown nare every 2 hours 0.65% Solution as needed for nasal congestion Hydroxyzine HCL 1-2 tablets by Unknown 10mg mouth 6 times a day Tablets as needed for anxiety Buspirone HCL 1 by mouth three Unknown 5mg times a day Tablets Calcium Acetate (Phos Unknown Binder) 667mg Capsules Amlodipine Besylate 1 by mouth every Unknown 5mg day Tablets Albuterol Sulfate 1 unit dose via Unknown nebulizer every 4 (2.5mg/3ML) 0.083% hours as needed Nebulizer Omeprazole 1 by mouth every Unknown 20mg day Capsules DR Plavix 1 by mouth every Unknown 75mg Tablets day Lipitor one tab by mouth Unknown 20mg Tablets every night at bedtime Carvedilol 1 tab by mouth Unknown 25mg Tablets twice a day Sertraline HCL 1 by mouth every Unknown 50mg day Tablets Tekturna 1/2 tablet by mouth Unknown 300mg Tablets every day Medications Administered in Office Medication SIG Qnty Indications Ordering Provider Date Triamcinolone (Kenalog) Jet Coronel M.D. 07/23/2017 Injection Triamcinolone (Kenalog) Jet Coronel M.D. 10/23/2016 Injection Triamcinolone (Kenalog) Jet Coronel M.D. 07/25/2016 Injection Immunizations Description No Information Available Vital Signs Date Vital Result Comment 07/23/2019 9:29am Height 67 inches 5'7" Weight 121.00 lb per pt Heart Rate 69 /min BP Systolic Sitting 128 mmHg BP Diastolic Sitting 78 mmHg Body Temperature 96.9 F Pain Level 2 O2 % BldC Oximetry 99 % BMI (Body Mass Index) 18.9 kg/m2 02/10/2019 1:18pm Height 67 inches 5'7" Weight 133.00 lb per pt Heart Rate 60 /min BP Systolic Sitting 140 mmHg BP Diastolic Sitting 70 mmHg Respiratory Rate 14 /min Body Temperature 97.7 F Pain Level 5 BMI (Body Mass Index) 20.8 kg/m2 Results Test Acquired Date Facility Test Result H/L Range Note Laboratory test 05/08/2019 [facility] C Difficile PCR SEE RESULT [address] [place] [address] [phone] E.Coli 0157:H7 SEE RESULT BELOW 2 Potassium 03/31/2019 N2N/CCD Import Potassium 5.0 3.5 - 5.5 Weight (KG) 03/24/2019 N2N/CCD Import Weight (KG) 58.5 # Days/WK Treated 03/24/2019 N2N/CCD Import # Days/WK Treated 3 2 - 3 VT (KT/V TX Vol) 03/24/2019 N2N/CCD Import VT (KT/V TX Vol) 26.6 VM (KT/V Mean Vol) 03/24/2019 N2N/CCD Import VM (KT/V Mean 29.7 Vol) KT/V Prescribed 03/24/2019 N2N/CCD Import KT/V Prescribed 2.01 SPKT/V Total 03/24/2019 N2N/CCD Import SPKT/V Total 1.90 NPCR HD Ukm 03/24/2019 N2N/CCD Import NPCR HD Ukm 1.47 Gender 03/24/2019 N2N/CCD Import Gender F Race 03/24/2019 N2N/CCD Import Race C Amputation Factor 03/24/2019 N2N/CCD Import Amputation Factor 0.000 TBW (Rousseau) 03/24/2019 N2N/CCD Import TBW (Rousseau) 30.23 STDKRT/V Renal 03/24/2019 N2N/CCD Import STDKRT/V Renal N/A STDKT/V Total 03/24/2019 N2N/CCD Import STDKT/V Total N/A HRS/Week Treated 03/24/2019 N2N/CCD Import HRS/Week Treated 9.0 Blood Flow-QWB 03/24/2019 N2N/CCD Import Blood Flow-QWB 400 Hemoglobin 03/24/2019 N2N/CCD Import Hemoglobin 10.7 Low 12.0 - 16.0 HCT Calc (HGBX3) 03/24/2019 N2N/CCD Import HCT Calc (HGBX3) 32.1 Low 37.0 - 47.0 PTH Intact 03/24/2019 N2N/CCD Import PTH Intact 356 High 18 - 80 CA/Phos W/Products 03/24/2019 N2N/CCD Import Calcium 9.1 8.7 - 10.4 Phosphorus 6.7 High 2.4 - 5.1 Caxphos Product 61.0 High 21 - 53 Caxphos Corrected 61.0 High 21 - 53 KT/V By Ukm Panel 03/24/2019 N2N/CCD Import Urr 79 65 - 100 BUN 90 High 9 - 23 BUN - Post 19 9 - 23 Potassium 03/24/2019 N2N/CCD Import Potassium 4.7 3.5 - 5.5 Dialyzer Series 03/24/2019 N2N/CCD Import Dialyzer Series Revaclr Dialyzer Model 03/24/2019 N2N/CCD Import Dialyzer Model 300 Dialyzer 03/24/2019 N2N/CCD Import Dialyzer Gambro Make(MFG) Make(MFG) Dialyzer Flow-qd 03/24/2019 N2N/CCD Import Dialyzer Flow-qd 600 Dialyzer Grayson 03/24/2019 N2N/CCD Import Dialyzer Grayson 1209 Minutes Dialyzed 03/24/2019 N2N/CCD Import Minutes Dialyzed 180 Calcium Corrected 03/24/2019 N2N/CCD Import Calcium Corrected 9.1 8.7 - 10.4 SPKDT/V Dialysis 03/24/2019 N2N/CCD Import SPKDT/V Dialysis 1.90 Ekdt/V Dialysis 03/24/2019 N2N/CCD Import Ekdt/V Dialysis 1.56 STDKDT/V Dialysis 03/24/2019 N2N/CCD Import STDKDT/V Dialysis N/A Age Of Patient 03/24/2019 N2N/CCD Import Age Of Patient 58 Bsa (Evans) 03/24/2019 N2N/CCD Import Bsa (Evans) 1.65 Weight-Post (KG) 03/24/2019 N2N/CCD Import Weight-Post (KG) 59.1 Weight-Pre (KG) 03/24/2019 N2N/CCD Import Weight-Pre (KG) 62.6 Height (Inches) 03/24/2019 N2N/CCD Import Height (Inches) 65 HCT Calc (HGBX3) 03/18/2019 N2N/CCD Import HCT Calc (HGBX3) 33.3 Low 37.0 - 47.0 Hemoglobin 03/18/2019 N2N/CCD Import Hemoglobin 11.1 Low 12.0 - 16.0 Potassium 03/18/2019 N2N/CCD Import Potassium 5.0 3.5 - 5.5 Potassium 03/10/2019 N2N/CCD Import Potassium 5.9 High 3.5 - 5.5 Hemoglobin 03/10/2019 N2N/CCD Import Hemoglobin 11.8 Low 12.0 - 16.0 HCT Calc (HGBX3) 03/10/2019 N2N/CCD Import HCT Calc (HGBX3) 35.4 Low 37.0 - 47.0 Iron Panel 03/05/2019 N2N/CCD Import Iron 138 50 - 170 Iron Saturation 73 High 16 - 46 Tibc 189 Low 250 - 450 Uibc 51 Low 80 - 375 LDH 03/05/2019 N2N/CCD Import LDH, Total 203 120 - 246 Potassium 03/05/2019 N2N/CCD Import Potassium 4.7 3.5 - 5.5 Ast/Sgot 03/05/2019 N2N/CCD Import Ast/Sgot 24 0 - 34 Hep B Surfce Ag 03/03/2019 N2N/CCD Import Hep B Surfce Ag Neg Neg Calcium Corrected 03/03/2019 N2N/CCD Import Calcium Corrected 9.2 8.7 - 10.4 Sodium 03/03/2019 N2N/CCD Import Sodium 136 132 - 146 Alt/SGPT 03/03/2019 N2N/CCD Import Alt/SGPT 33 10 - 49 Glucose 03/03/2019 N2N/CCD Import Glucose 109 High 70 - 99 Creatinine 03/03/2019 N2N/CCD Import Creatinine 7.65 High 0.50 - 1.10 CBC With Autodiff 03/03/2019 N2N/CCD Import Basophils 1.9 Neutrophils 58.8 Lymphocytes 22.0 Monocytes 5.1 Eosinophils 12.2 RDW 15.0 11.0 - 15.0 WBC 6.2 4.5 - 11.0 RBC 4.15 Low 4.20 - 5.40 Hematocrit 39.8 37.0 - 47.0 Hemoglobin 12.8 12.0 - 16.0 MCV 95.9 80.0 - 100.0 MCH 30.7 27.0 - 31.0 MCHC 32.1 32.0 - 36.0 Platelet-CT 153 150 - 400 Neuts-Abs 3627.96 2000 - 8800 Lymphs-Abs 1357.40 1100 - 4800 Monos-Abs 314.67 0 - 1100 Basos-Abs 117.23 0 - 400 Eosins-Abs 752.74 High 0 - 700 HCT Calc (HGBX3) 38.4 37.0 - 47.0 Chem I HD 03/03/2019 N2N/CCD Import Alk Phos 143 High 46 - 116 Albumin 4.0 3.2 - 4.8 Calcium 9.2 8.7 - 10.4 Chloride 96 Low 99 - 109 Co2 27 20 - 31 Phosphorus 8.0 High 2.4 - 5.1 Protein - Total 5.9 5.7 - 8.2 A/G Ratio 2.1 1 - 2.5 Globulin 1.9 0.9 - 5 Caxphos Product 73.6 High 21 - 53 Caxphos Corrected 73.6 High 21 - 53 Hemoglobin 02/24/2019 N2N/CCD Import Hemoglobin 12.5 12.0 - 16.0 HCT Calc (HGBX3) 02/24/2019 N2N/CCD Import HCT Calc (HGBX3) 37.5 37.0 - 47.0 Weight (KG) 02/18/2019 N2N/CCD Import Weight (KG) 58.0 # Days/WK Treated 02/18/2019 N2N/CCD Import # Days/WK Treated 3 2 - 3 VT (KT/V TX Vol) 02/18/2019 N2N/CCD Import VT (KT/V TX Vol) 29.4 VM (KT/V Mean Vol) 02/18/2019 N2N/CCD Import VM (KT/V Mean Vol) 30.8 KT/V Prescribed 02/18/2019 N2N/CCD Import KT/V Prescribed 2.03 SPKT/V Total 02/18/2019 N2N/CCD Import SPKT/V Total 1.72 NPCR HD Ukm 02/18/2019 N2N/CCD Import NPCR HD [facility] 1.35 Gender 02/18/2019 N2N/CCD Import Gender F Race 02/18/2019 N2N/CCD Import Race C Amputation Factor 02/18/2019 N2N/CCD Import Amputation Factor 0.000 TBW (Rousseau) 02/18/2019 N2N/CCD Import TBW (Rousseau) 29.91 STDKRT/V Renal 02/18/2019 N2N/CCD Import STDKRT/V Renal N/A STDKT/V Total 02/18/2019 N2N/CCD Import STDKT/V Total N/A HRS/Week Treated 02/18/2019 N2N/CCD Import HRS/Week Treated 8.0 Blood Flow-QWB 02/18/2019 N2N/CCD Import Blood Flow-QWB 400 Hemoglobin 02/18/2019 N2N/CCD Import Hemoglobin 12.7 12.0 - 16.0 HCT Calc (HGBX3) 02/18/2019 N2N/CCD Import HCT Calc (HGBX3) 38.1 37.0 - 47.0 CA/Phos W/Products 02/18/2019 N2N/CCD Import Calcium 9.4 8.7 - 10.4 Phosphorus 7.0 High 2.4 - 5.1 Caxphos Product 65.8 High 21 - 53 Caxphos Corrected 65.8 High 21 - 53 KT/V By Ukm Panel 02/18/2019 N2N/CCD Import Urr 77 65 - 100 BUN 87 High 9 - 23 BUN - Post 20 9 - 23 Dialyzer Series 02/18/2019 N2N/CCD Import Dialyzer Series Revaclr Dialyzer Model 02/18/2019 N2N/CCD Import Dialyzer Model 300 Dialyzer 02/18/2019 N2N/CCD Import Dialyzer Gambro Make(MFG) Make(MFG) Dialyzer Flow-qd 02/18/2019 N2N/CCD Import Dialyzer Flow-qd 600 Dialyzer Grayson 02/18/2019 N2N/CCD Import Dialyzer Grayson 1209 Minutes Dialyzed 02/18/2019 N2N/CCD Import Minutes Dialyzed 181 Calcium Corrected 02/18/2019 N2N/CCD Import Calcium Corrected 9.4 8.7 - 10.4 SPKDT/V Dialysis 02/18/2019 N2N/CCD Import SPKDT/V Dialysis 1.72 Ekdt/V Dialysis 02/18/2019 N2N/CCD Import Ekdt/V Dialysis 1.42 STDKDT/V Dialysis 02/18/2019 N2N/CCD Import STDKDT/V Dialysis N/A Age Of Patient 02/18/2019 N2N/CCD Import Age Of Patient 58 Bsa (Evans) 02/18/2019 N2N/CCD Import Bsa (Bee) 1.64 Weight-Post (KG) 02/18/2019 N2N/CCD Import Weight-Post (KG) 57.8 Weight-Pre (KG) 02/18/2019 N2N/CCD Import Weight-Pre (KG) 60.4 Height (Inches) 02/18/2019 N2N/CCD Import Height (Inches) 65 Hep B Surfce Ag 02/03/2019 N2N/CCD Import Hep B Surfce Ag Neg Neg Calcium Corrected 02/03/2019 N2N/CCD Import Calcium Corrected 9.2 8.7 - 10.4 Alt/SGPT 02/03/2019 N2N/CCD Import Alt/SGPT 25 10 - 49 Glucose 02/03/2019 N2N/CCD Import Glucose 91 70 - 99 Creatinine 02/03/2019 N2N/CCD Import Creatinine 6.60 High 0.50 - 1.10 CBC With Autodiff 02/03/2019 N2N/CCD Import Basophils 0.5 Neutrophils 63.9 Lymphocytes 13.2 Monocytes 14.9 Eosinophils 7.5 RDW 15.8 High 11.0 - 15.0 WBC 4.6 4.5 - 11.0 RBC 3.99 Low 4.20 - 5.40 Hematocrit 38.6 37.0 - 47.0 Hemoglobin 12.2 12.0 - 16.0 MCV 96.7 80.0 - 100.0 MCH 30.6 27.0 - 31.0 MCHC 31.7 Low 32.0 - 36.0 Platelet-CT 153 150 - 400 Neuts-Abs 2920.23 2000 - 8800 Lymphs-Abs 603.24 Low 1100 - 4800 Monos-Abs 680.93 0 - 1100 Basos-Abs 22.85 0 - 400 Eosins-Abs 342.75 0 - 700 HCT Calc (HGBX3) 36.6 Low 37.0 - 47.0 Chem I HD 02/03/2019 N2N/CCD Import Alk Phos 119 High 46 - 116 Albumin 4.0 3.2 - 4.8 Calcium 9.2 8.7 - 10.4 Chloride 95 Low 99 - 109 Co2 31 20 - 31 LDH, Total 207 120 - 246 Phosphorus 8.2 High 2.4 - 5.1 Potassium 6.6 High 3.5 - 5.5 Ast/Sgot 21 0 - 34 Protein - Total 5.8 5.7 - 8.2 A/G Ratio 2.2 1 - 2.5 Globulin 1.8 0.9 - 5 Caxphos Product 75.4 High 21 - 53 Caxphos Corrected 75.4 High 21 - 53 Iron Panel 02/03/2019 N2N/CCD Import Iron 47 Low 50 - 170 Iron Saturation 20 16 - 46 Tibc 236 Low 250 - 450 Uibc 189 80 - 375 1 SEE RESULT BELOW Name: BETH GUILLEN : [address]: Jessa Lowe MD Acct: [id number] Unit: [id number] AGE: 58 Location: ED Re05/08/19 SEX: F Status: REG ER SPEC: [id number] SUZY: 05/08/[address] [facility] [address]: Cande Alcala ENT PHYSICIAN REQ: [id number] RECD: 05/08/19 STATUS: RES OTHR DR: Jessa Patel DO _ SOURCE: STOOL SPDESC: ORDERED: C. diff PCR, Stool Culture Procedure Result Reported Site Stool Culture PENDING Stool Specimen Description Final 05/08/19- 1513 ML Stool Color Reddish Brown Stool Form Nonformed Stool Consistency Liquid Shiga Toxin 1 2 PENDING C. difficile PCR PENDING * - Main Lab . END OF REPORT DEPARTMENT OF PATHOLOGY, [address] [place] [address] Shalom Higgins M.D. Director [facility] # [id number] 2 SEE RESULT BELOW Name: BETH GUILLEN : [address]: Emilie Hilton MD Acct: [id number] Unit: [id number] AGE: 58 Location: [place] [address] Re05/08/19 SEX: F Status: ADM IN SPEC: [id number] SUZY: 05/08/[address] [facility] [address]: Cande Alcala NP REQ: [id number] RECD: 05/08/19150 STATUS: CAROLYNE TONEY DR: Jessa Patel DO _ SOURCE: STOOL SPDESC: ORDERED: E.coli O157:H7, C. diff PCR, Stool Culture Procedure Result Reported Site E.coli O157:H7 Culture Final 05/10/19- 1031 ML E. coli 0157 Culture Negative Stool Culture Final 05/10/19- 1031 ML Result No enteric pathogens isolated Testing for Salmonella, Shigella, Aeromonas, Plesiomonas, Yersinia and Campylobacter are included in a Stool Culture. Vibrio spp not routinely tested for in a stool culture. If testing is desired, please request specifically when placing test order. Sensitivities not routinely performed on stool isolates, as antibiotics may prolong the carriage rate of bacteria. Please contact the microbiology lab if sensitivities are required. Stool Specimen Description Final 05/08/19- 1513 ML Stool Color Reddish Brown Stool Form Nonformed Stool Consistency Liquid Shiga Toxin 1 2 Final 05/11/19- 1420 ML CONTINUED ON NEXT PAGE DEPARTMENT OF PATHOLOGY, [address] [place] [address] Shalom Higgins M.D. Director [facility] # [id number] Specimen: [id number] Collected: 05/08/19 Received: 05/08/19 (Continued) Procedure Result Reported Site Shiga Toxin 1 2 Final (continued) 05/11/19- 1420 Organism 1 Negative Shiga Toxin 1 2 Immunochromatographic Assay. As with all diagnostic procedures, the laboratory results obtained should be used in conjunction with other clinical information available to the physician, including confirmation by another method, as applicable. C. difficile PCR Final 05/08/19- 1554 ML Organism 1 027 Presumptive NEGATIVE Organism 2 Toxigenic C.diff NEGATIVE As with all diagnostic procedures, the laboratory results obtained should be used in conjunction with other clinical information available to the physician, including confirmation by another method, as applicable. * ML - Main Lab . END OF REPORT DEPARTMENT OF PATHOLOGY, [address] [place] [address] Shalom Higgins M.D. Director [facility] # [id number] Procedures Date Code Description Status 07/10/2019 83314 [facility] 20Yrs 4/More Ehfq-Sy-Odka Visits Per Completed Month 06/17/2019 81552 Hemodialysis, One Evaluation Completed 06/15/2019 70070 Hemodialysis, One Evaluation Completed 06/12/2019 62812 Hemodialysis, One Evaluation Completed 06/11/2019 86708 ECHO Transthorasic Realtime 2D W Doppler & Color Flow Completed Hosp 06/10/2019 07239 Thoracentesis W/ Img Guidance Completed 06/09/2019 13312 [facility] 20 Yrs 2-3 Aclt-Oo-Ljkn Visits By DR Per Completed Month 06/09/2019 92116 [facility] 20 Yrs 2-3 Vyhc-Xg-Qnjy Visits By DR Per Completed Month 06/08/2019 45616 Hemodialysis, One Evaluation Completed 06/05/2019 23511 Hemodialysis, One Evaluation Completed 06/04/2019 01844 Hemodialysis, One Evaluation Completed 06/01/2019 06871 Hemodialysis, One Evaluation Completed 05/29/2019 39754 Hemodialysis, One Evaluation Completed 05/15/2019 57555 Hemodialysis, One Evaluation Completed 05/13/2019 43797 Hemodialysis, One Evaluation Completed 05/06/2019 76171 Hemodialysis, One Evaluation Completed 01/29/2019 45341 ECHO Transthoracic, Real-Time 2D With Doppler And Completed Color Flow 01/29/2019 23606 ECHO Transthoracic, Real-Time 2D With Doppler And Completed Color Flow 11/30/2016 [id number] Bone Mineral Density Test Completed Medical Devices Description No Information Available Encounters Type Date Location Provider Dx Diagnosis Office Visit 06/18/2019 [facility] Rohith Maher, J96.22 Acute and chronic 1:56p Assoc,pc [place] respiratory Hospitalists failure with hypercapnia J96.21 Acute and chronic respiratory failure with hypoxia A41.9 Sepsis, unspecified organism J18.9 Pneumonia, unspecified organism S30.1xxA Contusion of abdominal wall, initial encounter I50.9 Heart failure, unspecified 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 N18.6 End stage renal disease Z99.2 Dependence on renal dialysis Office Visit 06/17/2019 1:55p [facility] Rohith J96.02 Acute respiratory Assoc,pc CHRISSY Maher failure with Hospitalists hypercapnia I50.31 Acute diastolic (congestive) heart failure S30.1xxA Contusion of abdominal wall, initial encounter J18.9 Pneumonia, unspecified organism D64.9 Anemia, unspecified Office Visit 06/16/2019 12:11p [facility] Nephrology Lynda Jimenez MD N18.6 End stage renal disease Z99.2 Dependence on renal dialysis Office Visit 06/16/2019 1:53p [facility] Doug Reyes J96.02 Acute respiratory Assoc,pc failure with Hospitalists hypercapnia I50.31 Acute diastolic (congestive) heart failure J18.9 Pneumonia, unspecified organism D64.9 Anemia, unspecified S30.1xxA Contusion of abdominal wall, initial encounter 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 Office Visit 06/15/2019 1:52p [facility] Doug Reyes J96.02 Acute respiratory Assoc,freda GILES failure with Hospitalists hypercapnia J18.9 Pneumonia, unspecified organism S30.1xxA Contusion of abdominal wall, initial encounter D64.9 Anemia, unspecified Office Visit 06/14/2019 1:52p Intensivists Penny Monaco.Arelis Acute and chronic MD Ludin respiratory failure with hypoxia J96.22 Acute and chronic respiratory failure with hypercapnia J18.9 Pneumonia, unspecified organism I10 Essential (primary) hypertension J81.1 Chronic pulmonary edema Office Visit 06/13/2019 1:52p Intensivists Penny Monaco.Arelis Acute and chronic MD Ludin respiratory failure with hypoxia J96.22 Acute and chronic respiratory failure with hypercapnia J18.9 Pneumonia, unspecified organism A41.9 Sepsis, unspecified organism J81.1 Chronic pulmonary edema I50.22 Chronic systolic (congestive) heart failure I11.0 Hypertensive heart disease with heart failure Office Visit 06/12/2019 1:51p [facility]ensivists Penny Love Acute and chronic MD Ludin respiratory failure with hypoxia J96.22 Acute and chronic respiratory failure with hypercapnia A41.9 Sepsis, unspecified organism J18.9 Pneumonia, unspecified organism J81.1 Chronic pulmonary edema Office Visit 06/11/2019 1:51p [facility] Penny Monaco.21 Acute and chronic MD Ludin respiratory failure with hypoxia J96.22 Acute and chronic respiratory failure with hypercapnia A41.9 Sepsis, unspecified organism J18.9 Pneumonia, unspecified organism J81.1 Chronic pulmonary edema Office Visit 06/11/2019 12:27p [facility] Nephrology Lynda Jimenez MD D63.1 Anemia in chronic kidney disease E83.39 Other disorders of phosphorus metabolism N18.6 End stage renal disease Office Visit 06/10/2019 1:50p Intensivists Penny Monaco.21 Acute and chronic MD Ludin respiratory failure with hypoxia J96.22 Acute and chronic respiratory failure with hypercapnia A41.9 Sepsis, unspecified organism J18.9 Pneumonia, unspecified organism J81.1 Chronic pulmonary edema J90 Pleural effusion, not elsewhere classified Office Visit 06/09/2019 1:50p Intensivists Santo Payne96.02 Acute respiratory M.D. failure with hypercapnia J18.9 Pneumonia, unspecified organism I50.9 Heart failure, unspecified N18.6 End stage renal disease Z99.2 Dependence on renal dialysis Office Visit 06/08/2019 1:49p Intensivists Santo Payne96.02 Acute respiratory M.D. failure with hypercapnia J18.9 Pneumonia, unspecified organism E87.6 Hypokalemia N18.6 End stage renal disease Z99.2 Dependence on renal dialysis I50.9 Heart failure, unspecified Office Visit 06/07/2019 1:48p Intensivists Santo Payne96.02 Acute respiratory M.D. failure with hypercapnia J96.01 Acute respiratory failure with hypoxia J18.9 Pneumonia, unspecified organism Office Visit 06/06/2019 1:48p Intensivists Santo Payne96.02 Acute respiratory M.D. failure with hypercapnia J96.01 Acute respiratory failure with hypoxia J18.9 Pneumonia, unspecified organism N18.6 End stage renal disease Office Visit 06/06/2019 1:46p [place] Lazarus Blanchard96.02 Acute respiratory Assoc, Gabrielle Duffy failure with Hospitalists hypercapnia J96.01 Acute respiratory failure with hypoxia J18.9 Pneumonia, unspecified organism D63.1 Anemia in chronic kidney disease N18.6 End stage renal disease Z99.2 Dependence on renal dialysis I50.9 Heart failure, unspecified Office Visit 06/04/2019 1:46p [place] Lazarus Fernández J96.02 Acute respiratory Assoc,ferda Duffy M.D. failure with Hospitalists hypercapnia R05 Cough I50.9 Heart failure, unspecified D63.1 Anemia in chronic kidney disease N18.6 End stage renal disease Z99.2 Dependence on renal dialysis Office Visit 06/03/2019 1:45p [place] Lazarus Blanchard96.02 Acute respiratory Assoc, Gabrielle Duffy failure with Hospitalists hypercapnia I50.9 Heart failure, unspecified D63.1 Anemia in chronic kidney disease N18.6 End stage renal disease Z99.2 Dependence on renal dialysis Office Visit 06/02/2019 1:41p [place] Lazarus Blanchard96.02 Acute respiratory Assoc, Gabrielle Duffy failure with Hospitalists hypercapnia I50.9 Heart failure, unspecified N18.6 End stage renal disease Z99.2 Dependence on renal dialysis D63.1 Anemia in chronic kidney disease Office Visit 06/01/2019 [facility] Santo Solano96.02 Acute respiratory 1:41p Assoc,pc M.D. failure with Hospitalists hypercapnia 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 I50.9 Heart failure, unspecified N18.6 End stage renal disease Z99.2 Dependence on renal dialysis D63.1 Anemia in chronic kidney disease Office Visit 05/31/2019 [facility] Miriam Vizcarra, J96.02 Acute respiratory 1:41p freda Shah M.D. failure with Hospitalists hypercapnia 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 I50.9 Heart failure, unspecified N18.6 End stage renal disease D63.1 Anemia in chronic kidney disease Z99.2 Dependence on renal dialysis Office Visit 05/30/2019 [facility] Miriam Vizcarra J96.22 Acute and chronic 1:39p freda Shah M.D. respiratory Hospitalists failure with hypercapnia D64.9 Anemia, unspecified 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 I50.9 Heart failure, unspecified N18.6 End stage renal disease Z99.2 Dependence on renal dialysis Office Visit 05/29/2019 [facility] Miriam Vizcarra J96.12 Chronic 1:39p freda Shah M.D. 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 Office Visit 05/27/2019 1:38p [facility] Annette Moran J96.00 Acute respiratory Doto, ENT PHYSICIAN failure, unsp w hypoxia or hypercapnia 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 Assoc,freda Cornell NP (chronic) Hospitalists pancolitis without complications R06.02 Shortness of breath Office 05/14/2019 [facility] K52.9 Noninfective Visit 11:35a Assoc,CHRISSY Parsons gastroenteritis and Hospitalists colitis, unspecified Office 05/13/2019 [facility] K52.9 Noninfective Visit 11:35a Assoc,CHRISSY Parsons gastroenteritis and Hospitalists colitis, unspecified Office 05/12/2019 [facility] K52.9 Noninfective Visit 11:34a Assoc,CHRISSY Parsons gastroenteritis and Hospitalists colitis, unspecified 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 N18.6 End stage renal disease Z99.2 Dependence on renal dialysis I50.30 Unspecified diastolic (congestive) heart failure Office Visit 05/11/2019 [facility] K52.9 Noninfective 11:34a Assocfreda PA gastroenteritis and Hospitalists colitis, unspecified 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 N18.6 End stage renal disease Z99.2 Dependence on renal dialysis I50.30 Unspecified diastolic (congestive) heart failure Office Visit 05/10/2019 [facility] K52.9 Noninfective 11:34a Assoc,CHRISSY Bardales gastroenteritis and Hospitalists colitis, unspecified 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 I95.9 Hypotension, unspecified 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 N18.6 End stage renal disease I50.30 Unspecified diastolic (congestive) heart failure Z99.2 Dependence on renal dialysis Office Visit 05/09/2019 [facility] K52.9 Noninfective 11:33a Assoc,CHRISSY Bardales gastroenteritis and Hospitalists colitis, unspecified 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 K92.1 [facility] Hospitalists R19.7 Diarrhea, unspecified N18.6 End stage renal disease Z99.2 Dependence on renal dialysis Office Visit 05/08/2019 9:30a [facility] Collette Whitaker, K62.5 Hemorrhage of anus ENT PHYSICIAN and rectum R11.2 Nausea with vomiting, unspecified R10.9 Unspecified abdominal pain Office Visit 04/21/2019 10:15a [facility] Brigitte Patel D.O. 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 disease M06.9 Rheumatoid arthritis, unspecified F41.9 Anxiety disorder, unspecified D63.1 Anemia in chronic kidney disease Z66 Do not resuscitate Office Visit 02/03/2019 11:15a [facility] Kate Verduzco, N18.6 End stage Of Artur Anthony renal disease M06.9 Rheumatoid arthritis, unspecified I42.8 Other cardiomyopathies I27.20 Pulmonary hypertension, unspecified I31.3 Pericardial effusion (noninflammatory) Z01.810 Encounter for preprocedural cardiovascular examination I36.1 Nonrheumatic tricuspid (valve) insufficiency Z86.73 Prsnl hx of TIA (TIA), and cereb infrc w/o resid deficits Assessments Date Code Description Provider 07/23/2019 M06.09 Rheumatoid arthritis without Jet Coronel M.D. 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 failure and with stage 5 chronic kidney disease, or end stage renal disease 06/18/2019 N18.6 End stage renal disease CHRISSY Wright 06/18/2019 Z99.2 Dependence on renal dialysis CHRISSY Wright 06/17/2019 J96.02 Acute respiratory failure with CHRISSY Wright hypercapnia 06/17/2019 N18.6 End stage renal disease Briana Tirado MD 06/17/2019 I50.31 Acute diastolic (congestive) heart CHRISSY Wright failure 06/17/2019 S30.1xxA Contusion of abdominal wall, initial CHRISSY Wright encounter 06/17/2019 J18.9 Pneumonia, unspecified organism CHRISSY Wright 06/17/2019 D64.9 Anemia, unspecified CHRISSY Wright 06/16/2019 J96.02 Acute respiratory failure with Doug Reyes MD hypercapnia 06/16/2019 N18.6 End stage renal disease Lynda Jimenez MD 06/16/2019 I50.31 Acute diastolic (congestive) heart Doug Reyes MD failure 06/16/2019 Z99.2 Dependence on renal dialysis Lynda Jimenez MD 06/16/2019 J18.9 Pneumonia, unspecified organism Doug Reyes MD 06/16/2019 D64.9 Anemia, unspecified Doug Reyes MD 06/16/2019 S30.1xxA Contusion of abdominal wall, initial Doug Reyes MD encounter 06/16/2019 I25.10 Atherosclerotic heart disease of Doug Reyes MD lummi coronary artery without angina pectoris 06/15/2019 J96.02 Acute respiratory failure with Doug Reyes MD hypercapnia 06/15/2019 N18.6 End stage renal disease Lynda Jimenez MD 06/15/2019 J18.9 Pneumonia, unspecified organism Doug Reyes MD 06/15/2019 S30.1xxA Contusion of abdominal wall, initial Doug Reyes MD encounter 06/15/2019 D64.9 Anemia, unspecified Doug Reyes MD 06/14/2019 J96.21 Acute and chronic respiratory failure Penny Noland MD with hypoxia 06/14/2019 J96.22 Acute and chronic respiratory failure Penny Noland MD with hypercapnia 06/14/2019 J18.9 Pneumonia, unspecified organism Penny Noland MD 06/14/2019 I10 Essential (primary) hypertension Penny Noland MD 06/14/2019 J81.1 Chronic pulmonary edema Penny Noland MD 06/13/2019 J96.21 Acute and chronic respiratory failure Penny Noland MD with hypoxia 06/13/2019 J96.22 Acute and chronic respiratory failure Penny Noland MD with hypercapnia 06/13/2019 J18.9 Pneumonia, unspecified organism Penny Noland MD 06/13/2019 A41.9 Sepsis, unspecified organism Penny Noland MD 06/13/2019 J81.1 Chronic pulmonary edema Penny Noland MD 06/13/2019 I50.22 Chronic systolic (congestive) heart Penny Noland MD failure 06/13/2019 I11.0 Hypertensive heart disease with heart Penny Noland MD failure 06/12/2019 J96.21 Acute and chronic respiratory failure Penny Noland MD with hypoxia 06/12/2019 N18.6 End stage renal disease Briana Tirado MD 06/12/2019 J96.22 Acute and chronic respiratory failure Penny Noland MD with hypercapnia 06/12/2019 A41.9 Sepsis, unspecified organism Penny Noland MD 06/12/2019 J18.9 Pneumonia, unspecified organism Penny Noland MD 06/12/2019 J81.1 Chronic pulmonary edema Penny Noland MD 06/11/2019 I50.9 Heart failure, unspecified Jimena Matias M.D. 06/11/2019 J96.21 Acute and chronic respiratory failure Penny Noland MD with hypoxia 06/11/2019 D63.1 Anemia in chronic kidney disease Lynda Jimenez MD 06/11/2019 J96.22 Acute and chronic respiratory failure Penny Noland MD with hypercapnia 06/11/2019 E83.39 Other disorders of phosphorus Lynda Jimenez MD metabolism 06/11/2019 A41.9 Sepsis, unspecified organism Penny Noland MD 06/11/2019 N18.6 End stage renal disease Lynda Jimenez MD 06/11/2019 J18.9 Pneumonia, unspecified organism Penny Noland MD 06/11/2019 J81.1 Chronic pulmonary edema Penny Noland MD 06/10/2019 J96.21 Acute and chronic respiratory failure Penny Noland MD with hypoxia 06/10/2019 J96.22 Acute and chronic respiratory failure Penny Noland MD with hypercapnia 06/10/2019 A41.9 Sepsis, unspecified organism Penny Noland MD 06/10/2019 J18.9 Pneumonia, unspecified organism Penny Noland MD 06/10/2019 J81.1 Chronic pulmonary edema Penny Noland MD 06/10/2019 J90 Pleural effusion, not elsewhere Penny Noland MD classified 06/09/2019 J96.02 Acute respiratory failure with Rolando Arevalo M.D. hypercapnia 06/09/2019 N18.6 End stage renal disease Briana Tirado MD 06/09/2019 J18.9 Pneumonia, unspecified organism Rolando Arevalo M.D. 06/09/2019 I50.9 Heart failure, unspecified Rolando Arevalo M.D. 06/09/2019 N18.6 End stage renal disease Rolando Arevalo M.D. 06/09/2019 Z99.2 Dependence on renal dialysis Rolando Arevalo M.D. 06/08/2019 J96.02 Acute respiratory failure with Rolando Arevalo M.D. hypercapnia 06/08/2019 N18.6 End stage renal disease Briana Tirado MD 06/08/2019 J18.9 Pneumonia, unspecified organism Rolando Arevalo M.D. 06/08/2019 E87.6 Hypokalemia Rolando Arevalo M.D. 06/08/2019 N18.6 End stage renal disease Rolando Arevalo M.D. 06/08/2019 Z99.2 Dependence on renal dialysis Rolando Arevalo M.D. 06/08/2019 I50.9 Heart failure, unspecified Rolando Arevalo M.D. 06/07/2019 J96.02 Acute respiratory failure with Rolando Arevalo M.D. hypercapnia 06/07/2019 J96.01 Acute respiratory failure with Rolando Arevalo M.D. hypoxia 06/07/2019 J18.9 Pneumonia, unspecified organism Rolando Arevalo M.D. 06/06/2019 J96.02 Acute respiratory failure with Rolando Arevalo M.D. hypercapnia 06/06/2019 J96.02 Acute respiratory failure with Pradeep Duffy M.D. hypercapnia 06/06/2019 J96.01 Acute respiratory failure with Rolando Arevalo M.D. hypoxia 06/06/2019 J96.01 Acute respiratory failure with Pradeep Duffy M.D. hypoxia 06/06/2019 J18.9 Pneumonia, unspecified organism Rolando Arevalo M.D. 06/06/2019 J18.9 Pneumonia, unspecified organism Pradeep Duffy M.D. 06/06/2019 N18.6 End stage renal disease Rolando Arevalo M.D. 06/06/2019 D63.1 Anemia in chronic kidney disease Pradeep Duffy M.D. 06/06/2019 N18.6 End stage renal disease Pradeep Duffy M.D. 06/06/2019 Z99.2 Dependence on renal dialysis Pradeep Duffy M.D. 06/06/2019 I50.9 Heart failure, unspecified Pradeep Duffy M.D. 06/05/2019 N18.6 End stage renal disease Lynda Jimenez MD 06/04/2019 J96.02 Acute respiratory failure with Pradeep Duffy M.D. hypercapnia 06/04/2019 N18.6 End stage renal disease Lynda Jimeenz MD 06/04/2019 R05 Cough Pradeep Duffy M.D. 06/04/2019 I50.9 Heart failure, unspecified Pradeep Duffy M.D. 06/04/2019 D63.1 Anemia in chronic kidney disease Pradeep Duffy M.D. 06/04/2019 N18.6 End stage renal disease Pradeep Duffy M.D. 06/04/2019 Z99.2 Dependence on renal dialysis Pradeep Duffy M.D. 06/03/2019 J96.02 Acute respiratory failure with Pradeep Duffy M.D. hypercapnia 06/03/2019 I50.9 Heart failure, unspecified Pradeep Duffy M.D. 06/03/2019 D63.1 Anemia in chronic kidney disease Pradeep Duffy M.D. 06/03/2019 N18.6 End stage renal disease Pradeep Duffy M.D. 06/03/2019 Z99.2 Dependence on renal dialysis Pradeep Duffy M.D. 06/02/2019 J96.02 Acute respiratory failure with Pradeep Duffy M.D. hypercapnia 06/02/2019 I50.9 Heart failure, unspecified Pradeep Duffy M.D. 06/02/2019 N18.6 End stage renal disease Pradeep Duffy M.D. 06/02/2019 Z99.2 Dependence on renal dialysis Pradeep Duffy M.D. 06/02/2019 D63.1 Anemia in chronic kidney disease Pradeep Duffy M.D. 06/01/2019 J96.02 Acute respiratory failure with Miriam Vizcarra M.D. 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 disease with heart failure and with stage 5 chronic kidney disease, or end stage renal disease 06/01/2019 D63.1 Anemia in chronic kidney disease Lynda Jimenez MD 06/01/2019 I50.9 Heart failure, unspecified Miriam Vizcarra M.D. 06/01/2019 N18.6 End stage renal disease Miriam Vizcarra M.D. 06/01/2019 Z99.2 Dependence on renal dialysis Miriam Vizcarra M.D. 06/01/2019 D63.1 Anemia in chronic kidney disease Miriam Vizcarra M.D. 05/31/2019 J96.02 Acute respiratory failure with Miriam Vizcarra M.D. 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 disease with heart failure and with stage 5 chronic kidney disease, or end stage renal disease 05/31/2019 I50.9 Heart failure, unspecified Miriam Vizcarra M.D. 05/31/2019 N18.6 End stage renal disease Miriam Vizcarra M.D. 05/31/2019 D63.1 Anemia in chronic kidney disease Miriam Vizcarra M.D. 05/31/2019 Z99.2 Dependence on renal dialysis Miriam Vizcarra M.D. 05/30/2019 J96.22 Acute and chronic respiratory failure Miriam Vizcarra M.D. with hypercapnia 05/30/2019 D64.9 Anemia, unspecified Miriam Vizcarra M.D. 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 disease with heart failure and with stage 5 chronic kidney disease, or end stage renal disease 05/30/2019 I50.9 Heart failure, unspecified Miriam Vizcarra M.D. 05/30/2019 N18.6 End stage renal disease Miriam Vizcarra M.D. 05/30/2019 Z99.2 Dependence on renal dialysis Miriam Vizcarra M.D. 05/29/2019 J96.12 Chronic respiratory failure with Miriam Vizcarra M.D. hypercapnia 05/29/2019 N18.6 End stage renal disease Briana Tirado MD 05/29/2019 Z99.81 Dependence on supplemental oxygen Miriam Vizcarra M.D. 05/29/2019 R50.9 Fever, unspecified Miriam Vizcarra M.D. 05/29/2019 I50.9 Heart failure, unspecified Miriam Vizcarra M.D. 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 disease with heart failure and with stage 5 chronic kidney disease, or end stage renal disease 05/29/2019 N18.6 End stage renal disease Miriam Vizcarra M.D. 05/29/2019 Z99.2 Dependence on renal dialysis Miriam Vizcarra M.D. 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 Annette Mooney NP disease with heart failure and with stage 5 chronic kidney disease, or end stage renal disease 05/27/2019 J96.00 Acute respiratory failure, Annette Mooney SNEHA unspecified whether with hypoxia or hypercapnia 05/27/2019 N17.9 Acute kidney failure, unspecified Briana Tirado MD 05/27/2019 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 unspecified 05/20/2019 I25.10 Atherosclerotic heart disease of Brigitte Patel D.O. lummi coronary artery without angina pectoris 05/20/2019 I12.0 Hypertensive chronic kidney disease Brigitte Patle, D.O. with stage 5 chronic kidney disease or end stage renal disease 05/20/2019 Z99.2 Dependence on renal dialysis Brigitte Patel D.O. 05/20/2019 N18.6 End stage renal disease Brigitte Patel D.O. 05/20/2019 F41.9 Anxiety disorder, unspecified Brigitte Jorge, D.O. 05/15/2019 K51.00 Ulcerative (chronic) pancolitis Elvia SNEHA Cornell without complications 05/15/2019 R06.02 Shortness of breath Elvia Cornell, SNEHA 05/15/2019 N18.6 End stage renal disease Briana Tirado MD 05/14/2019 K52.9 Noninfective gastroenteritis and CHRISSY Zavala colitis, unspecified 05/13/2019 K52.9 Noninfective gastroenteritis and CHRISSY Zavala colitis, unspecified 05/13/2019 N18.6 End stage renal disease Briana Tirado MD 05/12/2019 K52.9 Noninfective gastroenteritis and CHRISSY Zavala colitis, unspecified 05/12/2019 I25.10 Atherosclerotic heart disease of CHRISSY Zavala lummi coronary artery without angina pectoris 05/12/2019 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 CHRISSY Zavala disease with heart failure and with stage 5 chronic kidney disease, or end stage renal disease 05/12/2019 N18.6 End stage renal disease CHRISSY Zavala 05/12/2019 Z99.2 Dependence on renal dialysis CHRISSY Zavala 05/12/2019 I50.30 Unspecified diastolic (congestive) CHRISSY Zavala heart failure 05/11/2019 K52.9 Noninfective gastroenteritis and CHRISSY Wright colitis, unspecified 05/11/2019 I25.10 Atherosclerotic heart disease of CHRISSY Wright lummi coronary artery without angina pectoris 05/11/2019 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 CHRISSY Wright disease with heart failure and with stage 5 chronic kidney disease, or end stage renal disease 05/11/2019 N18.6 End stage renal disease CHRISSY Wright 05/11/2019 Z99.2 Dependence on renal dialysis CHRISSY Wright 05/11/2019 I50.30 Unspecified diastolic (congestive) CHRISSY Wright heart failure 05/10/2019 K52.9 Noninfective gastroenteritis and CHRISSY Wright colitis, unspecified 05/10/2019 I25.10 Atherosclerotic heart disease of CHRISSY Wright lummi coronary artery without angina pectoris 05/10/2019 I95.9 Hypotension, unspecified CHRISSY Wright 05/10/2019 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 CHRISSY Wright disease with heart failure and with stage 5 chronic kidney disease, or end stage renal disease 05/10/2019 N18.6 End stage renal disease CHRISSY Wright 05/10/2019 I50.30 Unspecified diastolic (congestive) CHRISSY Wright heart failure 05/10/2019 Z99.2 Dependence on renal dialysis CHRISSY Wright 05/09/2019 K52.9 Noninfective gastroenteritis and CHRISSY Wright colitis, unspecified 05/09/2019 I25.10 Atherosclerotic heart disease of CHRISSY Wright lummi coronary artery without angina pectoris 05/09/2019 I95.9 Hypotension, unspecified CHRISSY Wright 05/09/2019 N18.6 End stage renal disease CHRISSY Wright 05/09/2019 Z99.2 Dependence on renal dialysis CHRISSY Wright 05/09/2019 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 05/08/2019 K62.5 Hemorrhage of anus and rectum Collette Whitaker NP 05/08/2019 R19.7 Diarrhea, unspecified Cande Alcala, N.P. 05/08/2019 R11.2 Nausea with vomiting, unspecified Collette Whitaker NP 05/08/2019 N18.6 End stage renal disease Cande Alcala N.P. 05/08/2019 Z99.2 Dependence on renal dialysis Cande Alcala, N.P. 05/08/2019 R10.9 Unspecified abdominal pain Collette Whitaker NP 05/06/2019 N18.6 End stage renal disease Osiris Bustillos MD 04/21/2019 R30.0 Dysuria Brigitte Patel, D.O. 04/21/2019 R31.9 Hematuria, unspecified Brigitte Patel, D.O. 04/07/2019 I12.0 Hypertensive chronic kidney disease Collette Whitaker NP with stage 5 chronic kidney disease or end stage renal disease 04/07/2019 N18.6 End stage renal disease Collette Whitaker NP 04/07/2019 Z99.2 Dependence on renal dialysis Collette Whitaker NP 04/07/2019 I25.10 Atherosclerotic heart disease of oCllette Whitaker NP lummi coronary artery without angina pectoris 04/07/2019 F41.9 Anxiety disorder, unspecified Collette Whitaker NP 04/07/2019 M06.9 Rheumatoid arthritis, unspecified Collette Whitaker NP 02/10/2019 M06.9 Rheumatoid arthritis, unspecified Jet Coronel M.D. 02/10/2019 M19.049 Primary osteoarthritis, unspecified Jet Coronel M.D. hand 02/10/2019 Z79.899 Other molder feeder (current) drug Jet Coronel M.D. therapy 02/10/2019 R29.6 Repeated falls Jet Coronel M.D. 02/05/2019 L89.891 Pressure ulcer of other site, stage 1 CHRISSY Zamora 02/03/2019 N18.6 End stage renal disease Brigitte Patel D.O. 02/03/2019 N18.6 End stage renal disease Kate Verduzco M.D. 02/03/2019 M06.9 Rheumatoid arthritis, unspecified Brigitte Patel D.O. 02/03/2019 M06.9 Rheumatoid arthritis, unspecified Kate Verduzco M.D. 02/03/2019 F41.9 Anxiety disorder, unspecified Red BooOMartin 02/03/2019 I42.8 Other cardiomyopathies Kate Verduzco M.D. 02/03/2019 D63.1 Anemia in chronic kidney disease Brigitte Patel D.O. 02/03/2019 I27.20 Pulmonary hypertension, tenaified Kate Verduzco M.D. 02/03/2019 Z66 Do not resuscitate Brigitte Patel D.O. 02/03/2019 I31.3 Pericardial effusion Kate Verduzco M.D. (noninflammatory) 02/03/2019 Z01.810 Encounter for preprocedural Kate Verduzco M.D. cardiovascular examination 02/03/2019 I36.1 Nonrheumatic tricuspid (valve) Kate Verduzco M.D. insufficiency 02/03/2019 Z86.73 Personal history of transient Kate Verduzco M.D. ischemic attack (TIA), and cerebral infarction without residual deficits 01/29/2019 N18.6 End stage renal disease Ica ECHO Schedule 01/29/2019 I50.9 Heart failure, tenaified Kate Verduzco M.D. 01/29/2019 I50.9 Heart failure, unspecified Ica ECHO Schedule 01/29/2019 Z01.810 Encounter for preprocedural Ica ECHO Schedule cardiovascular examination Plan of Treatment Future Appointment(s):01/21/2020 10:00 am - Jet Coronel M.D. at [facility]08/04/2019 2:00 pm - Olesya Niño N.P. at [facility]07/23/2019 - Jet Coronel M.D.M06.09 Rheumatoid arthritis without rheumatoid factor, multiple sitesFollow up:Follow up in 6 to 8 months or sooner if needed Functional Status Description No Information Available Mental Status Description No Information Available Referrals Description No Information Available
--- OUTSIDE RECORDS SUMMARY | 2019-08-14 15:22 | XMS REPORT | Continuity of Care Document ---
:1960 External Reference #:[id number] Author Name Olesya Niño N.P. 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 Difficulty breathing Carmela Jo N.P. Onset: 08/28/2011 Benign essential hypertension Carmela Jo N.P. Onset: 09/18/2011 Multiple congenital cysts of kidney [...] Patient has never smoked Smoking Status Reviewed: 08/04/19 Patient has never smoked Exercise Type/Frequency Exercises regularly Allergies, Adverse Reactions, Alerts Active Allergies Reaction Severity Comments Date Codeine gi distress 03/20/2011 Tape sensitvity to skin ok to use Silk tape 01/28/2015 Nitro Patch - Adhesive (adhesive part) - skin 05/10/2015 irritation Adhesive per patient 12/06/2015 Isosorbide Dinitrate hypertension 05/09/2017 Medications Active Medications SIG Qnty Indications Ordering Date Provider Aspirin 1 by mouth daily Karen Lugo MD 08/31/2015 81mg Tablets Eucerin Cream apply twice daily Unknown Cream to affected area Coreg take 1 tab by mouth Unknown 12.5mg Tablets twice daily Aliskiren Fumarate 1 tab daily Unknown 300mg Tablets Acetaminophen 2 every 6 hours as Unknown 500mg needed Tablets Tessalon Perles take one capsule Unknown 100mg every 8 hours as Capsules needed Simethicone 1 tab every 6 hours Unknown 80mg Chewtabs as needed bloating Melatonin ER 1-2 tab at bedtime Unknown 5mg Tablets for sleep ER Dronabinol at bedtime daily Unknown 2.5mg Capsules Dialyvite 3000 Unknown 3mg Tablets Tylenol Extra Strength 1-2 tabs by mouth Unknown every 6 hours as 500mg Tablets needed Saline Nasal [place] 1-2 sprays to each Unknown 0.65% nare every 2 hours Solution as needed for nasal congestion Hydroxyzine HCL 1-2 tablets by Unknown 10mg mouth 6 times a day Tablets as needed for anxiety Buspirone HCL 1 by mouth three Unknown 5mg Tablets times a day Calcium Acetate (Phos Unknown Binder) 667mg Capsules Amlodipine Besylate 1 by mouth every Unknown 5mg day Tablets Albuterol Sulfate 1 unit dose via Unknown nebulizer every 4 (2.5mg/3ML) 0.083% hours as needed Nebulizer Omeprazole 1 by mouth every Unknown 20mg Capsules day DR Plavix 1 by mouth every Unknown [...] Available Vital Signs Date Vital Result Comment 08/04/2019 1:48pm Height 67 inches 5'7" Weight 121.25 lb 08/03/2019 @[facility] Heart Rate 71 /min BP Systolic Sitting 124 mmHg LA, pt. in wheelchair BP Diastolic Sitting 82 mmHg LA, pt. in wheelchair BMI (Body Mass Index) 19.0 kg/m2 Ejection Fraction 55-60% Echo 06/11/2019 07/23/2019 9:29am Height 67 inches 5'7" Weight 121.00 lb per pt Heart Rate 69 /min BP Systolic Sitting 128 mmHg BP Diastolic Sitting 78 mmHg Body Temperature 96.9 F Pain Level 2 O2 % BldC Oximetry 99 % BMI (Body Mass Index) 18.9 kg/m2 Results Test Acquired Date Facility Test Result H/L Range Note Laboratory test 05/08/2019 [facility] C Difficile PCR SEE RESULT [address] [place] [address] [phone] E.Coli 0157:H7 SEE RESULT BELOW 2 Potassium 03/31/2019 N2N/CCD Import Potassium 5.0 3.5 - 5.5 # Days/WK Treated 03/24/2019 N2N/CCD Import # [...] Dialyzed 03/24/2019 N2N/CCD Import Minutes Dialyzed 180 Weight (KG) 03/24/2019 N2N/CCD Import Weight (KG) 58.5 Height (Inches) 03/24/2019 N2N/CCD Import Height (Inches) 65 Weight-Pre (KG) 03/24/2019 N2N/CCD Import Weight-Pre (KG) 62.6 Weight-Post (KG) 03/24/2019 N2N/CCD Import Weight-Post (KG) 59.1 Bsa ([place]) 03/24/2019 N2N/CCD Import Bsa ([place]) 1.65 Calcium Corrected 03/24/2019 N2N/CCD Import Calcium Corrected 9.1 8.7 - 10.4 SPKDT/V Dialysis 03/24/2019 N2N/CCD Import SPKDT/V Dialysis 1.90 Age Of Patient 03/24/2019 N2N/CCD Import Age Of Patient 58 Ekdt/V Dialysis 03/24/2019 N2N/CCD Import Ekdt/V Dialysis 1.56 STDKDT/V Dialysis 03/24/2019 N2N/CCD Import STDKDT/V Dialysis N/A HCT Calc (HGBX3) 03/18/2019 N2N/CCD Import HCT Calc (HGBX3) 33.3 Low 37.0 - 47.0 Potassium 03/18/2019 N2N/CCD Import Potassium 5.0 3.5 - 5.5 Hemoglobin 03/18/2019 N2N/CCD Import Hemoglobin 11.1 Low 12.0 - 16.0 HCT Calc (HGBX3) 03/10/2019 N2N/CCD Import HCT Calc (HGBX3) 35.4 Low 37.0 - 47.0 Potassium 03/10/2019 N2N/CCD Import Potassium 5.9 High 3.5 - 5.5 Hemoglobin 03/10/2019 N2N/CCD Import Hemoglobin 11.8 Low 12.0 - 16.0 LDH 03/05/2019 N2N/CCD Import LDH, Total 203 120 - 246 Ast/Sgot 03/05/2019 N2N/CCD Import Ast/Sgot 24 0 - 34 Iron Panel 03/05/2019 N2N/CCD Import Iron 138 50 - 170 Iron Saturation 73 High 16 - 46 Tibc 189 Low 250 - 450 Uibc 51 Low 80 - 375 Potassium 03/05/2019 N2N/CCD Import Potassium 4.7 3.5 - 5.5 Alt/SGPT 03/03/2019 N2N/CCD Import Alt/SGPT 33 10 - 49 Glucose 03/03/2019 N2N/CCD Import Glucose 109 High 70 - 99 Chem I HD 03/03/2019 N2N/CCD Import Alk [...] Caxphos Corrected 73.6 High 21 - 53 Calcium Corrected 03/03/2019 N2N/CCD Import Calcium Corrected 9.2 8.7 - 10.4 CBC With Autodiff 03/03/2019 N2N/CCD Import Basophils [...] HCT Calc (HGBX3) 38.4 37.0 - 47.0 Sodium 03/03/2019 N2N/CCD Import Sodium 136 132 - 146 Creatinine 03/03/2019 N2N/CCD Import Creatinine 7.65 High 0.50 - 1.10 Hep B Surfce Ag 03/03/2019 N2N/CCD Import Hep B Surfce Ag Neg Neg Hemoglobin 02/24/2019 N2N/CCD Import Hemoglobin 12.5 12.0 - 16.0 HCT Calc (HGBX3) 02/24/2019 N2N/CCD Import HCT Calc (HGBX3) 37.5 37.0 - 47.0 # Days/WK Treated 02/18/2019 N2N/CCD Import # Days/WK Treated 3 2 - 3 Dialyzer Series 02/18/2019 N2N/CCD Import Dialyzer Series Revaclr VM (KT/V Mean 02/18/2019 N2N/CCD Import VM (KT/V Mean 30.8 Vol) Vol) SPKT/V Total 02/18/2019 N2N/CCD Import SPKT/V Total 1.72 NPCR HD Ukm 02/18/2019 N2N/CCD Import NPCR HD Ukm 1.35 Dialyzer 02/18/2019 N2N/CCD Import Dialyzer Gambro Make(MFG) Make(MFG) Gender 02/18/2019 N2N/CCD Import Gender F Amputation Factor 02/18/2019 N2N/CCD Import Amputation Factor 0.000 Dialyzer Grayson 02/18/2019 N2N/CCD Import Dialyzer Grayson 1209 STDKRT/V Renal 02/18/2019 N2N/CCD Import STDKRT/V Renal N/A HRS/Week Treated 02/18/2019 N2N/CCD Import HRS/Week Treated 8.0 Blood Flow-QWB 02/18/2019 N2N/CCD Import Blood Flow-QWB 400 Calcium Corrected 02/18/2019 N2N/CCD Import Calcium Corrected 9.4 8.7 - 10.4 Hemoglobin 02/18/2019 N2N/CCD Import Hemoglobin 12.7 12.0 - 16.0 Weight (KG) 02/18/2019 N2N/CCD Import Weight (KG) 58.0 KT/V By Ukm Panel 02/18/2019 N2N/CCD Import Urr 77 65 - 100 BUN 87 High 9 BUN - Post 20 - VT (KT/V TX Vol) 02/18/2019 N2N/CCD Import VT (KT/V TX Vol) 29.4 KT/V Prescribed 02/18/2019 N2N/CCD Import KT/V Prescribed 2.03 Dialyzer Model 02/18/2019 N2N/CCD Import Dialyzer Model 300 Race 02/18/2019 N2N/CCD Import Race C Dialyzer Flow-qd 02/18/2019 N2N/CCD Import Dialyzer Flow-qd 600 TBW (Rousseau) 02/18/2019 N2N/CCD Import TBW (Rousseau) 29.91 SPKDT/V Dialysis 02/18/2019 N2N/CCD Import SPKDT/V Dialysis 1.72 Ekdt/V Dialysis 02/18/2019 N2N/CCD Import Ekdt/V Dialysis 1.42 STDKT/V Total 02/18/2019 N2N/CCD Import STDKT/V Total N/A Minutes Dialyzed 02/18/2019 N2N/CCD Import Minutes Dialyzed 181 STDKDT/V Dialysis 02/18/2019 N2N/CCD Import STDKDT/V Dialysis N/A Age Of Patient 02/18/2019 N2N/CCD Import Age Of Patient 58 HCT Calc (HGBX3) 02/18/2019 N2N/CCD Import HCT Calc (HGBX3) 38.1 37.0 - 47.0 Bsa (Bee) 02/18/2019 N2N/CCD Import Bsa ([place]) 1.64 Weight-Post (KG) 02/18/2019 N2N/CCD Import Weight-Post (KG) 57.8 Weight-Pre (KG) 02/18/2019 N2N/CCD Import Weight-Pre (KG) 60.4 CA/Phos W/Products 02/18/2019 N2N/CCD Import Calcium 9.4 8.7 - 10.4 Phosphorus 7.0 High 2.4 - 5.1 Caxphos Product 65.8 High 21 - 53 C[place]os Corrected 65.8 High 21 - 53 Height (Inches) 02/18/2019 N2N/CCD Import Height (Inches) 65 Iron Panel 02/03/2019 N2N/CCD Import Iron 47 Low 50 - 170 Iron Saturation 20 16 - 46 Tibc 236 Low 250 - 450 Uibc 189 80 - 375 Chem I HD 02/03/2019 N2N/CCD Import Alk [...] [place] Corrected 75.4 High 21 - 53 CBC With Autodiff 02/03/2019 N2N/CCD Import Basophils [...] Calc (HGBX3) 36.6 Low 37.0 - 47.0 Creatinine 02/03/2019 N2N/CCD Import Creatinine 6.60 High 0.50 - 1.10 Glucose 02/03/2019 N2N/CCD Import Glucose 91 70 - 99 Alt/SGPT 02/03/2019 N2N/CCD Import Alt/SGPT 25 10 - 49 Calcium Corrected 02/03/2019 N2N/CCD Import Calcium Corrected 9.2 8.7 - 10.4 Hep B Surfce Ag 02/03/2019 N2N/CCD Import Hep B Surfce Ag Neg Neg 1 SEE RESULT BELOW Name: BETH GUILLEN : [address]: Jessa Lowe MD Acct: [id number] Unit: [id number] AGE: 58 Location: ED Re05/08/19 SEX: F Status: REG ER SPEC: [id number] SUZY: 05/08/19-14[address] [facility] DR: Cande Alcala FRESH WORK INSPECTOR REQ: [id number] RECD: 05/08/19 STATUS: RES DAWNA DR: Jessa Patel DO _ SOURCE: STOOL SPDESC: ORDERED: Maile STRAUSS, Stool Culture Procedure Result Reported Site Stool Culture PENDING Stool Specimen Description Final 05/08/19- 1513 ML Stool Color Reddish Brown Stool Form Nonformed Stool Consistency Liquid Shiga Toxin 1 2 PENDING C. difficile PCR PENDING * ML - Main Lab . END OF REPORT DEPARTMENT OF PATHOLOGY, [address] [place] [address] Shalom Higgins M.D. Director [facility] # [id number] 2 SEE RESULT BELOW Name: WILMERBEHT Parrish : [address]: Emilie Hilton MD Acct: [id number] Unit: [id number] AGE: 58 Location: [place] [address] Re05/08/19 SEX: F Status: ADM IN SPEC: [id number] SUZY: 05/08/19-7 [facility] DR: Cande Alcala FR[employer] WORK INSPECTOR REQ: [id number] RECD: 05/08/19 STATUS: CAROLYNE TONEY DR: Jessa Patel DO _ SOURCE: STOOL SPDESC: ORDERED: E.coli O157:H7, C. diff PCR, Stool Culture Procedure Result Reported Site E.coli O157:H7 Culture Final 05/10/19- 1031 ML E. coli 0157 Culture Negative Stool Culture Final 05/10/19- 103 ML Result No enteric pathogens isolated Testing [...] CONTINUED ON NEXT PAGE DEPARTMENT OF PATHOLOGY, [address] [place] [address] Shalom Higgins M.D. Director [facility] # [id number] Specimen: [id number] Collected: 05/08/19 Received: 05/08/19 (Continued) Procedure Result [...] . END OF REPORT DEPARTMENT OF PATHOLOGY, [address] [place] [address] Shalom Higgins M.D. Director [facility] # [id number] Procedures Date Code Description Status 08/04/2019 34844 EKG Tracing & Interpretation Completed 07/10/2019 61783 Esrd Services 20Yrs 4/More Zdmf-Tb-Bodt Visits Per Completed Month 06/17/2019 27827 Hemodialysis, One Evaluation Completed 06/15/2019 51148 Hemodialysis, One Evaluation Completed 06/12/2019 03184 Hemodialysis, One Evaluation Completed 06/11/2019 75932 ECHO Transthorasic Realtime 2D W Doppler & Color Flow Completed Hosp 06/10/2019 04396 Thoracentesis W/ Img Guidance Completed 06/09/2019 16976 [facility] 20 Yrs 2-3 Vuvj-Ty-Qknw Visits By Per Completed Month 06/09/2019 18425 [facility] 20 Yrs 2-3 Txng-Cb-Qjrd Visits By Per Completed Month 06/08/2019 68582 Hemodialysis, One Evaluation Completed 06/05/2019 51736 Hemodialysis, One Evaluation Completed 06/04/2019 71107 Hemodialysis, One Evaluation Completed 06/01/2019 51533 Hemodialysis, One Evaluation Completed 05/29/2019 48302 Hemodialysis, One Evaluation Completed 05/15/2019 49775 Hemodialysis, One Evaluation Completed 05/13/2019 79226 Hemodialysis, One Evaluation Completed 05/06/2019 93739 Hemodialysis, One Evaluation Completed 11/30/2016 [id number] Bone Mineral Density Test Completed Medical Devices Description No Information Available Encounters Type Date Location Provider Dx Diagnosis Office Visit 08/04/2019 [facility] Olesya Niño, I13.2 Hyp hrt & chr 2:00p Of Artur Feliz kdny dis w hrt fail and w stg 5 chr kdny/Esrd I10 Essential (primary) hypertension I25.10 Athscl heart disease of [place] coronary artery w/o ang pctrs I50.30 Unspecified diastolic (congestive) heart failure Office Visit 07/23/2019 9:40a Rheumatology Jet M06.09 Rheumatoid Services Of Artur Coronel M.D. arthritis w/o rheumatoid factor, multiple sites Office Visit 06/18/2019 1:56p Gladwin Lazarus [place] J96.22 Acute and chronic Assoc,CHRSISY Bardales respiratory Hospitalists failure with hypercapnia J96.21 Acute and chronic respiratory failure with hypoxia A41.9 Sepsis, unspecified organism J18.9 Pneumonia, unspecified organism S30.1xxA Contusion of abdominal wall, initial encounter I50.9 Heart failure, unspecified 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 N18.6 End stage renal disease Z99.2 Dependence on renal dialysis Office Visit 06/17/2019 1:55p Gladwin Lazarus [place] J96.02 Acute respiratory Assoc,CHRISSY Bardales failure with Hospitalists hypercapnia I50.31 Acute diastolic (congestive) heart failure S30.1xxA Contusion of abdominal wall, initial encounter J18.9 Pneumonia, unspecified organism D64.9 Anemia, unspecified Office Visit 06/16/2019 12:11p [facility] Nephrology Lynda Jimenez MD N18.6 End stage renal disease Z99.2 Dependence on renal dialysis Office Visit 06/16/2019 1:53p [facility] Doug Reyes, J96.02 Acute respiratory Assoc,pc MD failure with Hospitalists hypercapnia I50.31 Acute diastolic (congestive) heart failure J18.9 Pneumonia, unspecified organism D64.9 Anemia, unspecified S30.1xxA Contusion of abdominal wall, initial encounter I25.10 Athscl heart disease of [place] coronary artery w/o ang pctrs Office Visit 06/15/2019 1:52p [facility] Doug Reyes, J96.02 Acute respiratory Assoc,pc MD failure with Hospitalists hypercapnia J18.9 Pneumonia, unspecified organism S30.1xxA Contusion of abdominal wall, initial encounter D64.9 Anemia, unspecified Office Visit 06/14/2019 1:52p Intensivists Penny Monaco.21 Acute and chronic MD [...] failure Office Visit 06/12/2019 1:51p Intensivists Penny Monaco.Arelis Acute and chronic MD Ludin respiratory failure with hypoxia J96.22 Acute and chronic respiratory failure with hypercapnia A41.9 Sepsis, unspecified organism J18.9 Pneumonia, unspecified organism J81.1 Chronic pulmonary edema Office Visit 06/11/2019 1:51p Intensivists Penny Monaco.Arelis Acute and chronic MD Ludin respiratory failure with hypoxia J96.22 Acute and chronic respiratory failure with hypercapnia A41.9 Sepsis, unspecified organism J18.9 Pneumonia, unspecified organism J81.1 Chronic pulmonary edema Office Visit 06/11/2019 12:27p [facility] Nephrology Lynda Jimenez MD D63.1 Anemia [...] stage renal disease Office Visit 06/06/2019 1:46p Baldo Fernández J96.02 Acute respiratory Assoc, Eve Duffy. failure with Hospitalists hypercapnia J96.01 Acute respiratory failure with hypoxia J18.9 Pneumonia, unspecified organism D63.1 Anemia in chronic kidney disease N18.6 End stage renal disease Z99.2 Dependence on renal dialysis I50.9 Heart failure, unspecified Office Visit 06/04/2019 1:46p Baldo Fernández J96.02 Acute respiratory Assoc, Angel DuffyD. failure with Hospitalists hypercapnia R05 Cough I50.9 Heart failure, unspecified D63.1 Anemia in chronic kidney disease N18.6 End stage renal disease Z99.2 Dependence on renal dialysis Office Visit 06/03/2019 1:45p [facility] Pradeep J96.02 Acute respiratory Assoc,freda Duffy M.D. failure with Hospitalists hypercapnia I50.9 Heart failure, unspecified D63.1 Anemia in chronic kidney disease N18.6 End stage renal disease Z99.2 Dependence on renal dialysis Office Visit 06/02/2019 1:41p [facility] Pradeep J96.02 Acute respiratory Assoc,freda Duffy M.D. failure with Hospitalists hypercapnia I50.9 Heart failure, unspecified N18.6 End stage renal disease Z99.2 Dependence on renal dialysis D63.1 Anemia in chronic kidney disease Office Visit 06/01/2019 [facility] Miriam Vizcarra J96.02 Acute respiratory 1:41p freda Shah M.D. failure with Hospitalists hypercapnia 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 I50.9 Heart failure, unspecified N18.6 End stage renal disease Z99.2 Dependence on renal dialysis D63.1 Anemia in chronic kidney disease Office Visit 05/31/2019 [facility] Miriam Vizcarra J96.02 Acute respiratory 1:41p freda Shah M.D. failure with Hospitalists hypercapnia 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 I50.9 Heart failure, unspecified N18.6 End stage renal disease D63.1 Anemia in chronic kidney disease Z99.2 Dependence on renal dialysis Office Visit 05/30/2019 [facility] Miriam Vizcarra J96.22 Acute and chronic 1:39p freda Shah M.D. respiratory Hospitalists failure with hypercapnia D64.9 Anemia, unspecified 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 I50.9 Heart failure, unspecified N18.6 End stage renal disease Z99.2 Dependence on renal dialysis [facility] Vizcarra J96.12 Chronic 1:39p freda Shah M.D. 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 N18.6 End stage renal disease Z99.2 Dependence on renal dialysis Office Visit 05/28/2019 1:38p Intensivists Annette Moran J96.02 Acute respiratory Doto, FR[employer] WORK INSPECTOR failure with hypercapnia R50.9 Fever, unspecified Z99.2 Dependence on renal dialysis N18.6 End stage renal disease I50.30 Unspecified diastolic (congestive) heart failure 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 Office Visit 05/27/2019 1:38p Intensivists Annette Moran J96.00 Acute respiratory Doto, FR[employer] WORK INSPECTOR failure, unsp w hypoxia or hypercapnia 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 I50.30 Unspecified diastolic (congestive) heart failure N18.6 End stage renal disease Z99.2 Dependence on renal dialysis Office Visit 05/27/2019 9:56a [facility]phrology Briana Sanford N17.9 Acute kidney MD Candida failure, unspecified E87.70 Fluid overload, unspecified N18.6 End stage renal disease Office Visit 05/20/2019 9:45a [facility] Brigitte Patel, J06.9 Acute upper D.O. 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 R06.02 Shortness of breath Office 05/14/2019 [facility] K52.9 Noninfective Visit 11:35a Assocfreda PA gastroenteritis and Hospitalists colitis, unspecified Office 05/13/2019 [facility] K52.9 Noninfective Visit 11:35a Assoc,CHRISSY Parsons gastroenteritis and Hospitalists colitis, unspecified Office 05/12/2019 [facility] Marie K52.9 Noninfective Visit 11:34a Assoc,CHRISSY Parsons gastroenteritis and Hospitalists colitis, unspecified I25.10 Athscl heart disease of [place] coronary artery w/o ang pctrs 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 N18.6 End stage renal disease Z99.2 Dependence on renal dialysis I50.30 Unspecified diastolic (congestive) heart failure Office Visit 05/11/2019 [facility] Rohith K52.9 Noninfective 11:34a Assoc,CHRISSY Bardales gastroenteritis and Hospitalists colitis, unspecified I25.10 Athscl heart disease of [place] coronary artery w/o ang pctrs 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 N18.6 End stage renal disease Z99.2 Dependence on renal dialysis I50.30 Unspecified diastolic (congestive) heart failure Office Visit 05/10/2019 [facility] Rohith K52.9 Noninfective 11:34a Assoc,CHRISSY Bardales gastroenteritis and Hospitalists colitis, unspecified I25.10 Athscl heart disease of [place] coronary artery w/o ang pctrs I95.9 Hypotension, unspecified 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 N18.6 End stage renal disease I50.30 Unspecified diastolic (congestive) heart failure Z99.2 Dependence on renal dialysis Office Visit 05/09/2019 [facility] Rohith K52.9 Noninfective 11:33a Assoc,CHRISSY Bardales gastroenteritis and Hospitalists colitis, unspecified I25.10 Athscl heart disease of [place] coronary artery w/o ang pctrs I95.9 Hypotension, unspecified Z99.2 Dependence on renal dialysis N18.6 End stage renal disease 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 I50.30 Unspecified diastolic (congestive) heart failure Office Visit 05/08/2019 11:33a [facility] Assoc,pc Cande Alcala, N.P. K92.1 [facility] Hospitalists R19.7 Diarrhea, unspecified N18.6 End stage renal disease Z99.2 Dependence on renal dialysis Office Visit 05/08/2019 9:30a [facility] Collette Whitaker, K62.5 Hemorrhage of anus [employer] WORK INSPECTOR and rectum R11.2 Nausea with vomiting, unspecified R10.9 Unspecified abdominal pain Office Visit 04/21/2019 10:15a [facility] Brigitte Patel D.OMartin R30.0 Dysuria R31.9 Hematuria, unspecified Office Visit 04/07/2019 8:30a [facility] Collette Whitaker, Z99.2 Dependence on [employer] WORK INSPECTOR renal dialysis N18.6 End stage renal disease 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 disease M06.9 Rheumatoid arthritis, unspecified F41.9 Anxiety disorder, unspecified D63.1 Anemia in chronic kidney disease Z66 Do not resuscitate Office Visit 02/03/2019 11:15a [facility] Kate Verduzco, N18.6 End stage Of Artur Anthony renal disease M06.9 Rheumatoid arthritis, unspecified I42.8 Other cardiomyopathies I27.20 Pulmonary hypertension, unspecified I31.3 Pericardial effusion (noninflammatory) Z01.810 Encounter for preprocedural cardiovascular examination I36.1 Nonrheumatic tricuspid (valve) insufficiency Z86.73 Prsnl hx of TIA (TIA), and cereb infrc w/o resid deficits Assessments Date Code Description Provider 08/04/2019 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 Olesya S. Foster, N.P. disease with heart failure and with stage 5 chronic kidney disease, or end stage renal disease 08/04/2019 I10 Essential (primary) hypertension Olesya Niño N.P. 08/04/2019 I25.10 Atherosclerotic heart disease of Ronnie Gabriel.P. [place] coronary artery without angina pectoris 08/04/2019 I50.30 Unspecified diastolic (congestive) Ronnie Gabriel.P. heart failure 07/28/2019 N18.6 End stage renal disease Briana Tirado MD 07/23/2019 M06.09 Rheumatoid arthritis without Jet Coronel [...] 06/16/2019 J96.02 Acute respiratory failure with Doug Reyes, MD hypercapnia 06/16/2019 N18.6 End stage renal disease Lynda Jimenez MD 06/16/2019 I50.31 Acute diastolic (congestive) heart Doug Reyes MD failure 06/16/2019 Z99.2 Dependence on renal dialysis Lynad Jimenez MD 06/16/2019 J18.9 Pneumonia, unspecified organism Doug Reyes MD 06/16/2019 D64.9 Anemia, unspecified Doug Reyes MD 06/16/2019 S30.1xxA Contusion of abdominal wall, initial Doug Reyes MD encounter 06/16/2019 I25.10 Atherosclerotic heart disease of Doug Reyes MD [place] coronary artery without angina pectoris 06/15/2019 J96.02 [...] 06/06/2019 J96.01 Acute respiratory failure with Rolando Areavlo M.D. hypoxia 06/06/2019 J96.01 Acute respiratory failure [...] 06/04/2019 N18.6 End stage renal disease Lynda Jimenez MD 06/04/2019 R05 Cough Pradeep Duffy M.D. [...] 05/28/2019 J96.02 Acute respiratory failure with Annette Olivafield Elliotto [employer] WORK INSPECTOR hypercapnia 05/28/2019 R50.9 Fever, unspecified Annette Olivafield Mooney, [employer] WORK INSPECTOR 05/28/2019 I50.30 Unspecified diastolic (congestive) Annette Olivafield Mooney, [employer] WORK INSPECTOR heart failure 05/28/2019 N18.6 End stage renal disease Annette Olivafield Mooney, FR[employer] WORK INSPECTOR 05/28/2019 Z99.2 Dependence on renal dialysis Annette Olivafield Mooney, FR[employer] WORK INSPECTOR 05/28/2019 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 Annette Olivafield Mooney , [employer] WORK INSPECTOR disease with heart failure and with stage 5 chronic kidney disease, or end stage renal disease 05/27/2019 J96.00 Acute respiratory failure, Annette Olivafield Mooney, FR[employer] WORK INSPECTOR unspecified whether with hypoxia or hypercapnia 05/27/2019 N17.9 Acute kidney failure, unspecified Briana Tirado MD 05/27/2019 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 Annette Olivafield Mooney , [employer] WORK INSPECTOR disease with heart failure and with stage 5 chronic kidney disease, or end stage renal disease 05/27/2019 E87.70 Fluid overload, unspecified Briana Tirado MD 05/27/2019 I50.30 Unspecified diastolic (congestive) Annette Luisafield Mooney, FR[employer] WORK INSPECTOR heart failure 05/27/2019 N18.6 End stage renal disease Briana Tirado MD 05/27/2019 N18.6 End stage renal disease Annette Mooney NP 05/27/2019 Z99.2 Dependence on renal dialysis Annette Moran Jesica, SNEHA 05/20/2019 J06.9 Acute upper respiratory infection, Brigitte Patel D.O. unspecified 05/20/2019 I25.10 Atherosclerotic heart disease of Brigitte Patel D.O. [place] coronary artery without angina pectoris 05/20/2019 I12.0 Hypertensive chronic kidney disease Brigitte Patel D.O. with stage 5 chronic kidney disease or end stage renal disease 05/20/2019 Z99.2 Dependence on renal dialysis Brigitte Patel D.O. 05/20/2019 N18.6 End stage renal disease Brigitte Patel D.O. 05/20/2019 F41.9 Anxiety disorder, unspecified Brigitte Patel D.O. 05/15/2019 K51.00 Ulcerative (chronic) pancolitis Elvia Cornell, SNEHA without complications 05/15/2019 R06.02 Shortness of breath Elvia Cornell NP 05/15/2019 N18.6 End stage renal disease Briana Tirado MD 05/14/2019 K52.9 Noninfective gastroenteritis and CHRISSY Zavala colitis, unspecified 05/13/2019 K52.9 Noninfective gastroenteritis and CHRISSY Zavala colitis, unspecified 05/13/2019 N18.6 End stage renal disease Briana Tirado MD 05/12/2019 K52.9 Noninfective gastroenteritis and CHRISSY Zavala colitis, unspecified 05/12/2019 I25.10 Atherosclerotic heart disease of CHRISSY Zavala [place] coronary artery without angina pectoris 05/12/2019 I13.2 [...] I25.10 Atherosclerotic heart disease of CHRISSY Wright [place] coronary artery without angina pectoris 05/11/2019 I13.2 [...] I25.10 Atherosclerotic heart disease of CHRISSY Wright [place] coronary artery without angina pectoris 05/10/2019 I95.9 [...] I25.10 Atherosclerotic heart disease of CHRISSY Wright [place] coronary artery without angina pectoris 05/09/2019 I95.9 Hypotension, unspecified CHRISSY Wright 05/09/2019 N18.6 End stage renal disease CHRISSY Wrigth 05/09/2019 Z99.2 Dependence on renal dialysis CHRISSY Wright 05/09/2019 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 CHRISSY Wright disease with heart failure and with stage 5 chronic kidney disease, or end stage renal disease 05/09/2019 I50.30 Unspecified diastolic (congestive) CHRISSY Wright heart failure 05/08/2019 K92.1 Janine Alcala, N.P. 05/08/2019 K62.5 Hemorrhage of anus and rectum Collette Whitaker, [employer] WORK INSPECTOR 05/08/2019 R19.7 Diarrhea, unspecified Cande Alcala, N.P. 05/08/2019 R11.2 Nausea with vomiting, unspecified Collette Whitaker, SNEHA 05/08/2019 N18.6 End stage renal disease Cande Alcala, N.P. 05/08/2019 Z99.2 Dependence on renal dialysis Cande Alcala, N.P. 05/08/2019 R10.9 Unspecified abdominal pain Collette Whitaker NP 05/06/2019 N18.6 End stage renal disease Osiris Bustillos MD 04/21/2019 R30.0 Dysuria Renee Boo.O. 04/21/2019 R31.9 Hematuria, unspecified Renee Boo.O. 04/07/2019 I12.0 Hypertensive chronic kidney disease Collette Whitaker NP with stage 5 chronic kidney disease or end stage renal disease 04/07/2019 N18.6 End stage renal disease Collette Whitaker NP 04/07/2019 Z99.2 Dependence on renal dialysis Collette Whitaker NP 04/07/2019 I25.10 Atherosclerotic heart disease of Collette Whitaker NP [place] coronary artery without angina pectoris 04/07/2019 F41.9 Anxiety disorder, unspecified Collette Whitaker NP 04/07/2019 M06.9 Rheumatoid arthritis, unspecified Collette Whitaker NP 02/10/2019 M06.9 Rheumatoid arthritis, unspecified Jet Coronel M.D. 02/10/2019 M19.049 Primary osteoarthritis, unspecified Jet Coronel M.D. hand 02/10/2019 Z79.899 Other correction (current) drug Jet Coronel M.D. therapy 02/10/2019 R29.6 Repeated falls Jet Coronel M.D. 02/05/2019 L89.891 Pressure ulcer of other site, stage 1 CHRISSY Zamora 02/03/2019 N18.6 End stage renal disease Red BooO. 02/03/2019 N18.6 End stage renal disease Kate Verduzco M.D. 02/03/2019 M06.9 Rheumatoid arthritis, unspecified Red BooO. 02/03/2019 M06.9 Rheumatoid arthritis, unspecified Kate Verduzco M.D. 02/03/2019 F41.9 Anxiety disorder, unspecified Brigitte Patel D.O. 02/03/2019 I42.8 Other cardiomyopathies Kate Verduzco M.D. 02/03/2019 D63.1 Anemia in chronic kidney disease Brigitte Patel D.O. 02/03/2019 I27.20 Pulmonary hypertension, unspecified Kate Verduzco M.D. 02/03/2019 Z66 Do not resuscitate Brigitte Patel D.O. 02/03/2019 I31.3 Pericardial effusion Kate Verduzco M.D. (noninflammatory) 02/03/2019 Z01.810 Encounter for preprocedural Kate Verduzco M.D. cardiovascular examination 02/03/2019 I36.1 Nonrheumatic tricuspid (valve) Kate Verduzco M.D. insufficiency 02/03/2019 Z86.73 Personal history of transient Kate Verduzco M.D. ischemic attack (TIA), and cerebral infarction without residual deficits Plan of Treatment Future Appointment(s):01/21/2020 10:00 am - Jet Coronel M.D. at [facility]08/04/2019 - Olesya Niño, N.P.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 disease with heart failure and with stage 5 chronic kidney disease, or end stage renal audpefcV05 Essential (primary) yotujlqcfiwmG70.10 Atherosclerotic heart disease of [place] coronary artery without angina pectorisFollow up:OV LS w/ EKGRecommendations:Suggest working with lead programmer to see about decreasing cholesterol in diet Would suggest repeating cholesterol labs in 3-4 months as lipids were better when you were living at home.I50.30 Unspecified diastolic (congestive) heart failureRecommendations: Pump function good 55-60% (up from 01/2019) 45-50% Mitral regurgitation is now only trace Pulmonary pressures are the same. Functional Status Description No Information Available Mental Status Description No Information Available Referrals Description No Information Available
--- OUTSIDE RECORDS SUMMARY | 2019-08-14 15:22 | XMS REPORT | Continuity of Care Document ---
:1960 External Reference #:[id number] Author Name Timi Vega Address [address] [facility], [facility] [place] [address] Care Team Providers Name Role Phone Jet Bianchi M.D. - Nephrology Care Team Information Marketing Communications Associate Problems Active Problems Provider Date End stage renal failure on dialysis Timi Vega Onset: 06/23/2019 Autosomal dominant polycystic kidney disease Timi Vega Onset: 2019 End-stage renal disease Timi Vega Onset: 06/23/2019 Social History Type Date Description Comments Sex [...] Unknown sob (2.5mg/3ML) 0.083% Nebulizer Saline Nasal [place] q 2 hrs prn Unknown 0.65% Solution [...] type Z99.2 Dependence on renal dialysis Z79.01 residential (current) use of anticoagulants Z79.82 residential (current) use of aspirin Z86.73 Prsnl hx of TIA (TIA), and cereb infrc w/o resid deficits Z68.1 Body mass index (BMI) 19.9 or less, adult Assessments Date Code Description Provider 06/23/2019 N18.6 End stage renal disease Timi Vega 06/23/2019 Q61.2 Polycystic kidney, adult type Timi Vega 06/23/2019 Z99.2 Dependence on renal dialysis Vega, Timi 04/30/2019 N18.6 End stage renal disease Latisha Barahona, [facility] 04/30/2019 Q61.2 Polycystic kidney, adult type Latisha Barahona, [facility] 04/30/2019 Z99.2 Dependence on renal dialysis Latisha Barahona, [facility] 04/30/2019 Z68.20 Body mass index (BMI) 20.0-20.9, adult Latisha Barahona, [facility] 04/16/2019 N18.6 End stage renal disease Vega, Timi 04/16/2019 Q61.2 Polycystic kidney, adult type Vega, Timi 04/16/2019 Z99.2 Dependence on renal dialysis Vega, Timi 04/16/2019 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 Scheduled 03/12/[address] [place] [address] [address] [facility] [place] [address] [phone]
[2019-08-14] MEDS ORDERED: HYDROcodone/ACETAMIN 5-325 MG* 1 TAB PO ONE ×2 (15:35→18:25)
[2019-08-14] MEDS ORDERED: Tranexamic Acid 1,000 MG/10 ML SDV TOPICAL ONE (17:19)
--- NOTE | 2019-08-14 17:57 | ED ---
Discharge ED - Discharge Plan Condition: Stable Disposition: HOME Prescriptions: HYDROcodone/ACETAMIN 5-325 MG* [[place] 5-325 TAB*] 1 tab PO Q4H PRN #18 tab MDD 6 PRN Reason: Pain Patient Education Materials: Care For Your Stitches (ED), Laceration (ED), Hematoma (ED) Referrals: Des Hidalgo MD [Medical Doctor] - Keri Bejarano NP [Primary Care Provider] - Additional Instructions: Please have bandage changed daily Keep jayden wrap bandage and gauze bandage wrapped Keep arm elevated as much as possible Please return to the ED for worsening bleeding Follow up with wound clinic Suture removal in 7-10 days - Billing Disposition and Condition Condition: STABLE Disposition: Home
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
[2019-08-14 19:17] VITALS: BP 166/106
== END 2019-08-14 19:16 | disposition home or self-care (01) ==
LOC: ED 14:43
DX: S61.512A Laceration without foreign body of left wrist, initial encounter (principal); S60.222A Contusion of left hand, initial encounter; R07.9 Chest pain, unspecified; R06.02 Shortness of breath; 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 disease with heart failure and with stage 5 chronic kidney disease, or end stage renal disease; M25.512 Pain in left shoulder; W23.0XXA Caught, crushed, jammed, or pinched between moving objects, initial encounter; Y92.9 Unspecified place or not applicable; J44.9 Chronic obstructive pulmonary disease, unspecified; F41.9 Anxiety disorder, unspecified; I50.9 Heart failure, unspecified; N18.6 End stage renal disease; Z87.891 Personal history of nicotine dependence; Z86.73 Personal history of transient ischemic attack (TIA), and cerebral infarction without residual deficits; Z79.82 Long term (current) use of aspirin; Z99.2 Dependence on renal dialysis; Z79.01 Long term (current) use of anticoagulants
CPT/HCPCS: 12001; 99283

== ENCOUNTER 2019-08-21 13:36 | Inpatient (IN) | payer MEDICARE, MEDICAID ==
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
[2019-08-21] MEDS ORDERED: Vancomycin(*) 1,000 MG in NS 0.9% 250 ML* 250 ML IV ONE (14:14)
[2019-08-21] MEDS ORDERED: Piperacillin/Tazobac ADVAN(*) 3.375 GM in NS 0.9% 100 ML* 100 ML IVPB ONE (14:14)
[2019-08-21] MEDS ORDERED: Ondansetron INJ* 2 MG/ML VIAL IV ONE (14:18)
[2019-08-21 14:33] LABS: ABS Eosinophils 0.4 10^3/ul (0-0.6); ABS Lymphocytes 0.9 10^3/ul (1.0-4.8); ABS Monocytes 0.8 10^3/ul (0-0.8); ABS Neutrophils 7.3 10^3/ul (1.5-7.7); Eosinophil % 4.1 %; Hematocrit 22 % (35-47); Hemoglobin 7.3 g/dL (12.0-16.0); Lymphocyte % 9.5 %; Mean Corpuscular HGB Conc 33 g/dL (31-36); Mean Corpuscular Hemoglobin 31 pg (27-31); Mean Corpuscular Volume 95 fL (80-97); Mean Platelet Volume 8.2 fL (7.4-10.4); Platelet Count 168 10^3/uL (150-450); Red Blood Count 2.33 10^6 /uL (3.70-4.87); Red Cell Distribution Width 15 % (10-15); White Blood Count 9.4 10^3/uL (3.5-10.8)
[2019-08-21 14:41] LABS: Activated Partial Thrombo Time 37.3 seconds (26.0-38.0); INR 0.98 (0.82-1.09)
[2019-08-21 14:49] LABS: ALT 21 U/L (7-52); AST 22 U/L (13-39); Albumin 3.6 g/dL (3.2-5.2); Albumin/Globulin Ratio 1.5 (1-3); Alkaline Phosphatase 131 U/L (34-104); Anion Gap 7 mmol/L (2-11); Blood Urea Nitrogen 17 mg/dL (6-24); CO2 Carbon Dioxide 30 mmol/L (22-32); Calcium 9.1 mg/dL (8.6-10.3); Chloride 98 mmol/L (101-111); EGFR African American 20.7 (>60); EGFR Non-African American 17.1 (>60); Globulin 2.4 g/dL (2-4); Glucose 99 mg/dL (70-100); Potassium 3.7 mmol/L (3.5-5.0); Sodium 135 mmol/L (135-145)
[2019-08-21 14:57] LABS: Troponin I 0.04 ng/mL (<0.03)
--- OUTSIDE RECORDS SUMMARY | 2019-08-21 15:11 | XMS REPORT | Continuity of Care Document ---
:1960 External Reference #:[id number] Author Name Kate Verduzco M.D. (transmitted by agent of provider Dede Kaye) Address [address] [place] [address] Care Team Providers Name Role Phone Letty Duffy MD - Family Care Team Information Senior Counsel Commercial [phone] Medicine Problems Active Problems Provider Date Congestive heart failure Flori Pleitez D.O. 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 Difficulty breathing Carmela Jo N.Kevyn Onset: 08/28/2011 Benign essential hypertension Carmela Jo [...] twice daily Unknown Cream to affected area Aliskiren Fumarate 1 tab daily Unknown 300mg [...] hours as 500mg Tablets needed Saline Nasal Webster 1-2 sprays to each Unknown 0.65% nare [...] 67 inches 5'7" Weight 121.25 lb 08/03/2019 @[facility] Heart Rate 71 /min BP Systolic [...] Result H/L Range Note Laboratory test 05/08/2019 [facility] C Difficile PCR SEE RESULT [address] [place] [address] [phone] E.Coli 0157:H7 SEE RESULT BELOW 2 Potassium [...] 03/24/2019 N2N/CCD Import Weight-Post (KG) 59.1 Bsa (Bee) 03/24/2019 N2N/CCD Import Bsa (Codington) 1.65 Calcium Corrected 03/24/2019 N2N/CCD Import Calcium [...] N2N/CCD Import Potassium 4.7 3.5 - 5.5 CBC With Autodiff 03/03/2019 N2N/CCD Import Basophils [...] HCT Calc (HGBX3) 38.4 37.0 - 47.0 Alt/SGPT 03/03/2019 N2N/CCD Import Alt/SGPT 33 10 - 49 Glucose 03/03/2019 N2N/CCD Import Glucose 109 High 70 - 99 Calcium Corrected 03/03/2019 N2N/CCD Import Calcium Corrected 9.2 8.7 - 10.4 Hep B Surfce Ag 03/03/2019 N2N/CCD Import Hep B Surfce Ag Neg Neg Sodium 03/03/2019 N2N/CCD Import Sodium 136 132 - 146 Chem I HD 03/03/2019 N2N/CCD Import Alk [...] Caxphos Corrected 73.6 High 21 - 53 Creatinine 03/03/2019 N2N/CCD Import Creatinine 7.65 High 0.50 - 1.10 Hemoglobin 02/24/2019 N2N/CCD Import Hemoglobin 12.5 12.0 [...] BUN - Post 20 9 - 23 VT (KT/V TX Vol) 02/18/2019 N2N/CCD Import VT (KT/V TX Vol) 29.4 KT/V Prescribed 02/18/2019 N2N/CCD Import KT/V Prescribed 2.03 Dialyzer Model 02/18/2019 N2N/CCD Import Dialyzer Model 300 Race 02/18/2019 N2N/CCD Import Race C Dialyzer Flow-qd 02/18/2019 N2N/CCD Import Dialyzer Flow-qd 600 TBW (Rousseau) 02/18/2019 N2N/CCD Import TBW (Rousseau) 29.91 HCT Calc (HGBX3) 02/18/2019 N2N/CCD Import HCT Calc (HGBX3) 38.1 37.0 - 47.0 Ekdt/V Dialysis 02/18/2019 N2N/CCD Import Ekdt/V Dialysis 1.42 STDKT/V Total 02/18/2019 N2N/CCD Import STDKT/V Total N/A Minutes Dialyzed 02/18/2019 N2N/CCD Import Minutes Dialyzed 181 STDKDT/V Dialysis 02/18/2019 N2N/CCD Import STDKDT/V Dialysis N/A Age Of Patient 02/18/2019 N2N/CCD Import Age Of Patient 58 SPKDT/V Dialysis 02/18/2019 N2N/CCD Import SPKDT/V Dialysis 1.72 Bsa (Codington) 02/18/2019 N2N/CCD Import Bsa (Codington) 1.64 Weight-Post (KG) 02/18/2019 N2N/CCD Import Weight-Post (KG) 57.8 Weight-Pre (KG) 02/18/2019 N2N/CCD Import Weight-Pre (KG) 60.4 CA/Phos W/Products 02/18/2019 N2N/CCD Import Calcium 9.4 8.7 - 10.4 Phosphorus 7.0 High 2.4 - 5.1 Caxphos Product 65.8 High 21 - 53 Caxphos Corrected 65.8 High 21 - 53 Height (Inches) 02/18/2019 N2N/CCD Import Height (Inches) 65 1 SEE RESULT BELOW Name: BETH GUILLEN : [address]: Jessa Lowe MD Acct: [id number] Unit: [id number] AGE: 58 Location: ED Re05/08/19 SEX: F Status: REG ER SPEC: [id number] SUZY: 05/08/19-[address] [facility] [address]: Cande Alcala [employer] REQ: [id number] RECD: 05/08/19 STATUS: RES KISHOREHR DR: Jessa Patel DO _ SOURCE: STOOL SPDESC: ORDERED: Maile STRAUSS, Stool Culture Procedure Result Reported Site Stool Culture PENDING Stool Specimen Description Final 05/08/19- 1513 ML Stool Color Reddish Brown Stool Form Nonformed Stool Consistency Liquid Shiga Toxin 1 2 PENDING C. difficile PCR PENDING * ML - Main Lab . END OF REPORT DEPARTMENT OF PATHOLOGY, [address] [place] [address] Shalom Higgins M.D. Director [facility] # [id number] 2 SEE RESULT BELOW Name: BETH GUILLEN : [address]: Emilie Hilton MD Acct: [id number] Unit: [id number] AGE: 58 Location: [place] [address] Re05/08/19 SEX: F Status: ADM IN SPEC: [id number] SUZY: 05/08/[address] [facility] [address]: Cande Alcala [employer] REQ: [id number] RECD: 05/08/19 STATUS: COMP KISHORE DR: Jessa Patel DO _ SOURCE: STOOL [...] CONTINUED ON NEXT PAGE DEPARTMENT OF PATHOLOGY, [address] [place] [address] Shalom Higgins M.D. Director [facility] # [id number] Specimen: [id number] Collected: 05/08/19 Received: 05/08/19 (Continued) Procedure Result [...] . END OF REPORT DEPARTMENT OF PATHOLOGY, [address] [place] [address] Shalom Higgins M.D. Director [facility] # [id number] Procedures Date Code Description Status 08/08/2019 19242 [facility] 20Yrs 4/More Eyvs-Mn-Mhgd Visits Per Completed Month 08/04/2019 48246 EKG Tracing & Interpretation Completed 07/10/2019 65136 [facility] 20Yrs 4/More Dwfq-Zr-Yabc Visits Per Completed Month 06/17/2019 85850 Hemodialysis, One Evaluation Completed 06/15/2019 38514 Hemodialysis, One Evaluation Completed 06/12/2019 43707 Hemodialysis, One Evaluation Completed 06/11/2019 86858 ECHO Transthorasic Realtime 2D W Doppler & Color Flow Completed Hosp 06/10/2019 92997 Thoracentesis W/ Img Guidance Completed 06/09/2019 43962 [facility] 20 Yrs 2-3 Dhsl-Tu-Zgtc Visits By Per Completed Month 06/09/201963912 [facility] 20 Yrs 2-3 Zebo-Tx-Zsua Visits By Per Completed Month 06/08/2019 Hemodialysis, One Evaluation Completed 06/05/201974996 Hemodialysis, One Evaluation Completed 06/04/201927334 Hemodialysis, One Evaluation Completed 06/01/201941369 Hemodialysis, One Evaluation Completed 05/29/201948477 Hemodialysis, One Evaluation Completed 05/15/201907258 Hemodialysis, One Evaluation Completed 05/13/201969248 Hemodialysis, One Evaluation Completed 05/06/2019 Hemodialysis, One Evaluation Completed 11/30/2016 420005423 Bone Mineral Density Test Completed Medical Devices Description No Information Available Encounters Type Date Location Provider Dx Diagnosis Office Visit 08/04/2019 [facility] Olesya Niño, I13.2 Hyp hrt & chr 2:00p Of Performance 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 coronary artery w/o ang pctrs I50.30 Unspecified diastolic (congestive) heart failure Q61.3 Polycystic kidney, unspecified Z86.73 Prsnl hx of TIA (TIA), and cereb infrc w/o resid deficits Office Visit 07/23/2019 9:40a Rheumatology Jet M06.09 [facility] Artur Coronel M.D. arthritis w/o rheumatoid factor, multiple sites Office Visit 06/18/2019 1:56p Baldo Newberry J96.22 Acute and chronic Assoc,CHRISSY Bardales respiratory Hospitalists failure with hypercapnia J96.21 Acute and chronic respiratory failure with hypoxia A41.9 Sepsis, unspecified organism J18.9 Pneumonia, unspecified organism S30.1xxA Contusion of abdominal wall, initial encounter I50.9 Heart failure, unspecified 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 N18.6 End stage renal disease Z99.2 Dependence on renal dialysis Office Visit 06/17/2019 1:55p Baldo Newberry J96.02 Acute respiratory Assoc,CRHISSY Bardales failure with Hospitalists hypercapnia I50.31 Acute diastolic (congestive) heart failure S30.1xxA Contusion of abdominal wall, initial encounter J18.9 Pneumonia, unspecified organism D64.9 Anemia, unspecified Office Visit 06/16/2019 12:11p [facility]phrology Lynda Jimenez MD N18.6 End stage renal disease Z99.2 Dependence on renal dialysis Office Visit 06/16/2019 1:53p [facility] Doug Reyes, J96.02 Acute respiratory Assoc,pc MD failure with Hospitalists hypercapnia I50.31 Acute diastolic (congestive) heart failure J18.9 Pneumonia, unspecified organism D64.9 Anemia, unspecified S30.1xxA Contusion of abdominal wall, initial encounter I25.10 Athscl heart disease of [facility] [place] coronary artery w/o ang pctrs Office Visit 06/15/2019 1:52p [facility] Doug Reyes, J96.02 Acute respiratory Assoc,pc [...] edema Office Visit 06/13/2019 1:52p Intensivists Penny Monaco.21 Acute and chronic MD Ludin respiratory failure with hypoxia J96.22 Acute and chronic respiratory failure with hypercapnia J18.9 Pneumonia, unspecified organism A41.9 Sepsis, unspecified organism J81.1 Chronic pulmonary edema I50.22 Chronic systolic (congestive) heart failure I11.0 Hypertensive heart disease with heart failure Office Visit 06/12/2019 1:51p [facility] Penny Monaco.21 Acute and chronic [...] Chronic pulmonary edema Office Visit 06/11/2019 12:27p [facility] Nephrology Lynda Jimenez MD D63.1 Anemia in chronic kidney disease E83.39 Other disorders of phosphorus metabolism N18.6 End stage renal disease Office Visit 06/10/2019 1:50p [facility] Penny Blanchard96.21 Acute and chronic MD Ludin respiratory failure with hypoxia J96.22 Acute and chronic respiratory failure with hypercapnia A41.9 Sepsis, unspecified organism J18.9 Pneumonia, unspecified organism J81.1 Chronic pulmonary edema J90 Pleural effusion, not elsewhere classified Office Visit 06/09/2019 1:50p [facility] Jacinda Payne.02 Acute respiratory M.D. failure with hypercapnia J18.9 [...] 06/06/2019 1:46p Baldo Fernández J96.02 Acute respiratory Assoc,Arnoldo Shetty.D. failure with Hospitalists hypercapnia J96.01 Acute respiratory failure with hypoxia J18.9 Pneumonia, unspecified organism D63.1 Anemia in chronic kidney disease N18.6 End stage renal disease Z99.2 Dependence on renal dialysis I50.9 Heart failure, unspecified Office Visit 06/04/2019 1:46p Baldo Fernández J96.02 Acute respiratory Assoc,freda Duffy M.D. failure with Hospitalists hypercapnia R05 Cough I50.9 Heart failure, unspecified D63.1 Anemia in chronic kidney disease N18.6 End stage renal disease Z99.2 Dependence on renal dialysis Office Visit 06/03/2019 1:45p [facility] Pradeep J96.02 Acute respiratory Assoc,freda Duffy M.D. failure with Hospitalists hypercapnia I50.9 Heart failure, unspecified D63.1 Anemia in chronic kidney disease N18.6 End stage renal disease Z99.2 Dependence on renal dialysis Office Visit 06/02/2019 1:41p [facility] Pradeep J96.02 Acute respiratory Assoc,freda Duffy M.D. failure with Hospitalists hypercapnia I50.9 Heart failure, unspecified N18.6 End stage renal disease Z99.2 Dependence on renal dialysis D63.1 Anemia in chronic kidney disease Office Visit 06/01/2019 [facility] Miriam Vizcarra J96.02 Acute respiratory 1:41p Assfreda de souza M.D. failure with Hospitalists hypercapnia 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 I50.9 Heart failure, unspecified N18.6 End stage renal disease Z99.2 Dependence on renal dialysis D63.1 Anemia in chronic kidney disease Office Visit 05/31/2019 [facility] Miriam Vizcarra J96.02 Acute respiratory 1:41p freda Shah M.D. failure with Hospitalists hypercapnia 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 I50.9 Heart failure, unspecified N18.6 End stage renal disease D63.1 Anemia in chronic kidney disease Z99.2 Dependence on renal dialysis Office Visit 05/30/2019 [facility] Miriam Vizcarra J96.22 Acute and chronic 1:39p Assfreda de souza M.D. respiratory Hospitalists failure with hypercapnia D64.9 Anemia, unspecified 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 I50.9 Heart failure, unspecified N18.6 End stage renal disease Z99.2 Dependence on renal dialysis Office Visit 05/29/2019 [facility] Miriam Vizcarra, J96.12 Chronic 1:39p Assoc,freda Anthony 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 N18.6 End stage renal disease Z99.2 Dependence on renal dialysis Office Visit 05/28/2019 1:38p Intensivists Annette Moran J96.02 Acute respiratory Doto, [employer] failure with hypercapnia R50.9 Fever, unspecified Z99.2 Dependence on renal dialysis N18.6 End stage renal disease I50.30 Unspecified diastolic (congestive) heart failure 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 Office Visit 05/27/2019 1:38p Intensivists Annette Moran J96.00 Acute respiratory Doto, [employer] failure, unsp w hypoxia or hypercapnia 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 I50.30 Unspecified diastolic (congestive) heart failure N18.6 End stage renal disease Z99.2 Dependence on renal dialysis Office Visit 05/27/2019 9:56a [facility] Nephrology Briana Sanford N17.9 Acute kidney MD Candida failure, unspecified E87.70 Fluid overload, unspecified N18.6 End stage renal disease Office Visit 05/20/2019 9:45a [facility] Brigitte Patel, J06.9 Acute upper D.O. 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 K92.1 [facility] Hospitalists R19.7 Diarrhea, unspecified N18.6 End stage renal disease Z99.2 Dependence on renal dialysis Office Visit 05/08/2019 9:30a [facility] Collette Whitaker, K62.5 Hemorrhage of anus [employer] and rectum R11.2 Nausea with vomiting, unspecified R10.9 Unspecified abdominal pain Office Visit 04/21/2019 10:15a [facility] Brigitte Patel D.O. 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 08/04/2019 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 Olesya S. Salinas, N.P. disease with heart failure and with stage 5 chronic kidney disease, or end stage renal disease 08/04/2019 R94.31 Abnormal electrocardiogram [ECG] Kate Verduzco M.D. [EKG] 08/04/2019 I10 Essential (primary) hypertension Olesya S. Foster, N.P. 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 Foster, N.P. [facility] coronary artery without angina pectoris 08/04/2019 I50.30 Unspecified diastolic (congestive) Olesya S. Foster, N.P. heart failure 08/04/2019 Q61.3 Polycystic kidney, unspecified Olesya S. Foster, N.P. 08/04/2019 Z86.73 Personal history of transient Olesya S. Foster, N.P. ischemic attack (TIA), and cerebral infarction without residual deficits 07/28/2019 N18.6 End stage renal disease Briana Tirado MD 07/23/2019 M06.09 Rheumatoid arthritis without Jet Coronel M.D. rheumatoid factor, multiple sites 07/10/2019 N18.6 End stage renal disease Lynda Jimenez MD 06/18/2019 J96.22 Acute and chronic respiratory failure CHRISSY Wright with hypercapnia 06/18/2019 J96.21 Acute and chronic respiratory failure CHRISSY Wright with hypoxia 06/18/2019 A41.9 Sepsis, unspecified organism Rohith Maher PA 06/18/2019 J18.9 Pneumonia, unspecified organism Rohith Maher PA 06/18/2019 S30.1xxA Contusion of abdominal wall, initial CHRISSY Wright encounter 06/18/2019 I50.9 Heart failure, unspecified Rohith Maher PA 06/18/2019 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 CHRISSY Wright disease with heart failure and with stage 5 chronic kidney disease, or end stage renal disease 06/18/2019 N18.6 End stage renal disease CHRISSY Wright 06/18/2019 Z99.2 Dependence on renal dialysis CHRISSY Wright 06/17/2019 J96.02 Acute respiratory failure with HCRISSY Wright hypercapnia 06/17/2019 N18.6 End stage renal disease Briana Tirado MD 06/17/2019 I50.31 Acute diastolic (congestive) heart CHRISSY Wright failure 06/17/2019 S30.1xxA Contusion of abdominal wall, initial CHRISSY Wright encounter 06/17/2019 J18.9 Pneumonia, unspecified organism Rohith Maher PA 06/17/2019 D64.9 Anemia, unspecified Rohith Maher, PA 06/16/2019 J96.02 Acute respiratory failure with Doug [...] Atherosclerotic heart disease of Doug Reyes MD [facility] [facility] coronary artery without angina pectoris 06/15/2019 J96.02 [...] J96.21 Acute and chronic respiratory failure Penny Noalnd MD with hypoxia 06/11/2019 D63.1 Anemia in [...] M.D. 06/06/2019 J96.02 Acute respiratory failure with Roalndo Arevalo M.D. hypercapnia 06/06/2019 J96.02 Acute respiratory [...] 05/28/2019 J96.02 Acute respiratory failure with Annette Mooney, [employer] hypercapnia 05/28/2019 R50.9 Fever, unspecified Annette Mooney, [employer] 05/28/2019 I50.30 Unspecified diastolic (congestive) Annette Mooney, [employer] heart failure 05/28/2019 N18.6 End stage renal disease Annette Mooney, [employer] 05/28/2019 Z99.2 Dependence on renal dialysis Annette Mooney, [employer]F 05/28/2019 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 Annette Mooney , [employer] disease with heart failure and with stage 5 chronic kidney disease, or end stage renal disease 05/27/2019 J96.00 Acute respiratory failure, Annette Mooney, [employer] unspecified whether with hypoxia or hypercapnia 05/27/2019 N17.9 Acute kidney failure, unspecified Briana Tirado MD 05/27/2019 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 Annette Elliottdarwin , [employer] disease with heart failure and with stage 5 chronic kidney disease, or end stage renal disease 05/27/2019 E87.70 Fluid overload, unspecified Briana Tirado MD 05/27/2019 I50.30 Unspecified diastolic (congestive) Annette Mooney, [employer] heart failure 05/27/2019 N18.6 End stage renal disease Briana Tirado MD 05/27/2019 N18.6 End stage renal disease Annette Elliottdarwin, [employer]F 05/27/2019 Z99.2 Dependence on renal dialysis Annette Olivafield Jesica NP 05/20/2019 J06.9 Acute upper respiratory infection, Brigitte Patel D.O. unspecified 05/20/2019 I25.10 Atherosclerotic heart disease of Brigitte Patel D.O. [facility] coronary artery without angina pectoris 05/20/2019 I12.0 Hypertensive chronic kidney disease Brigitte Patel D.O. with stage 5 chronic kidney disease or end stage renal disease 05/20/2019 Z99.2 Dependence on renal dialysis Red BooO. 05/20/2019 N18.6 End stage renal disease Renee Boo.O. 05/20/2019 F41.9 Anxiety disorder, unspecified Brigitte Patel D.O. 05/15/2019 K51.00 Ulcerative (chronic) pancolitis Elvia Raphaelckney, [employer] without complications 05/15/2019 R06.02 Shortness of breath Elvia aRphaelckney, [employer] 05/15/2019 N18.6 End stage renal disease Briana Tirado MD 05/14/2019 K52.9 Noninfective gastroenteritis and CHRISSY Zavala colitis, unspecified 05/13/2019 K52.9 Noninfective gastroenteritis and CHRISSY Zavala colitis, unspecified 05/13/2019 N18.6 End stage renal disease Briana Tirado MD 05/12/2019 K52.9 Noninfective gastroenteritis and CHRISSY Zavala colitis, unspecified 05/12/2019 I25.10 Atherosclerotic heart disease of CHRISSY Zavala [facility] coronary artery without angina pectoris 05/12/2019 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 CHRISSY Zavala disease with heart failure and with stage 5 chronic kidney disease, or end stage renal disease 05/12/2019 N18.6 End stage renal disease CHRSISY Zavala 05/12/2019 Z99.2 Dependence on renal dialysis CHRISSY Zavala 05/12/2019 I50.30 Unspecified diastolic (congestive) CHRISSY Zavala heart failure 05/11/2019 K52.9 Noninfective gastroenteritis and CHRISSY Wright colitis, unspecified 05/11/2019 I25.10 Atherosclerotic heart disease of CHRISSY Wright [facility] coronary artery without angina pectoris 05/11/2019 I13.2 [...] I25.10 Atherosclerotic heart disease of CHRISSY Wright [facility] coronary artery without angina pectoris 05/10/2019 I95.9 [...] I25.10 Atherosclerotic heart disease of CHRISSY Wright [facility] coronary artery without angina pectoris 05/09/2019 I95.9 [...] Hemorrhage of anus and rectum Collette Whitaker, SNEHA 05/08/2019 R19.7 Diarrhea, unspecified Cande Alcala, N.P. 05/08/2019 R11.2 Nausea with vomiting, unspecified Collette Whitaker NP 05/08/2019 N18.6 End stage renal disease Cande Alcala, N.P. 05/08/2019 Z99.2 Dependence on renal dialysis Cande Alcala, N.P. 05/08/2019 R10.9 Unspecified abdominal pain Collette Whitaker, SNEHA 05/06/2019 N18.6 End stage renal disease Osiris Bustillos MD 04/21/2019 R30.0 Dysuria Brigitte Jorge, D.O. 04/21/2019 R31.9 Hematuria, unspecified Brigitte Patel, D.O. 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 coronary artery without angina pectoris 04/07/2019 F41.9 Anxiety disorder, unspecified Collette Whitaker NP 04/07/2019 M06.9 Rheumatoid arthritis, unspecified Collette Whitaker NP Plan of Treatment Future Appointment(s):01/21/2020 10:00 am - Jet Coronel M.D. at [facility]08/04/2019 - Olesya Niño N.P.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 disease with heart failure and with stage 5 chronic kidney disease, or end stage renal uvwnuotN34 Essential (primary) rlxnvilhcuznF55.10 Atherosclerotic heart disease of [place] coronary artery without angina pectorisFollow up:OV LS w/ EKGRecommendations:Suggest working with bean snapper to see about decreasing cholesterol in diet Would suggest repeating cholesterol labs in 3-4 months as lipids were better when you were living at home.I50.30 Unspecified diastolic (congestive) heart failureRecommendations: Pump function good 55-60% (up from 01/2019) 45-50% Mitral regurgitation is now only trace Pulmonary pressures are the same.Q61.3 Polycystic kidney, wttobshcbphT40.73 Personal history of transient ischemic attack (TIA), and cerebral infarction without residualdeficits Functional Status Description No Information Available Mental Status Description No Information Available Referrals Description No Information Available
[2019-08-21] MEDS ORDERED: Morphine 4 MG/ML VIAL (1 ml) 4 MG/ML VIAL IV ONE ×2 (15:17→17:30)
[2019-08-21] MEDS ORDERED: Melatonin 3 MG TAB PO PRN (20:09)
[2019-08-21] MEDS ORDERED: Saline NASAL SPRAY 0.65%* BTL BOTH NARES PRN (20:09)
[2019-08-21] MEDS ORDERED: Albuterol 2.5 MG/3 ML NEB.SOL* (0.083%) INH PRN (20:09)
[2019-08-21 21:25] LABS: C Reactive Protein 110.31 mg/L (<8.01)
[2019-08-21] MEDS ORDERED: ZOSYN 3.375 GM x ONE DOSE over 30 miuntes IVPB ×2 (22:00)
[2019-08-21 22:01] LABS: Troponin I 0.04 ng/mL (<0.03)
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
[2019-08-21] MEDS: HYDROcodone/ACETAMIN 5-325 MG* 1 TAB PO PRN (22:15)
[2019-08-21] MEDS ORDERED: hydrOXYzine HCL TAB* 25 MG PO SCH (23:00)
[2019-08-21] MEDS ORDERED: Dronabinol CAP* 2.5 MG PO SCH (23:00)
[2019-08-21] MEDS: Heparin VIAL(*) 5000 UNITS/ML VIAL (FIVE THOUSAND) SUBCUT SCH (23:00)
[2019-08-22] MEDS: Piperacillin/Tazobac ADVAN(*) 3.375 GM in NS 0.9% 100 ML* 100 ML IVPB SCH ×2 (00:10→12:29)
[2019-08-22] MEDS: busPIRone TAB* 10 MG PO SCH ×2 (00:10→10:41)
[2019-08-22 03:16] LABS: Anion Gap 6 mmol/L (2-11); BUN/Creatinine Ratio 5.9 (8-20); Blood Urea Nitrogen 23 mg/dL (6-24); CO2 Carbon Dioxide 30 mmol/L (22-32); Chloride 100 mmol/L (101-111); EGFR African American 14.4 (>60); EGFR Non-African American 11.9 (>60); Glucose 136 mg/dL (70-100); Magnesium 2.1 mg/dL (1.9-2.7); Potassium 3.6 mmol/L (3.5-5.0); Sodium 136 mmol/L (135-145)
[2019-08-22 03:20] LABS: Troponin I 0.03 ng/mL (<0.03)
[2019-08-22 05:52] LABS: Hematocrit 19 % (35-47); Hemoglobin 6.4 g/dL (12.0-16.0); Mean Corpuscular HGB Conc 33 g/dL (31-36); Mean Corpuscular Hemoglobin 32 pg (27-31); Mean Corpuscular Volume 96 fL (80-97); Mean Platelet Volume 8.5 fL (7.4-10.4); Platelet Count 141 10^3/uL (150-450); Red Cell Distribution Width 15 % (10-15); White Blood Count 5.5 10^3/uL (3.5-10.8)
[2019-08-22 05:53] LABS: ABS Eosinophils 0.4 10^3/ul (0-0.6); ABS Lymphocytes 0.8 10^3/ul (1.0-4.8); ABS Monocytes 0.8 10^3/ul (0-0.8); ABS Neutrophils 3.5 10^3/ul (1.5-7.7); Eosinophil % 7.8 %
[2019-08-22 06:44] LABS: Polychromasia 1+
[2019-08-22 08:49] LABS: Troponin I 0.03 ng/mL (<0.03)
[2019-08-22] MEDS ORDERED: ASCORBIC ACID PO SCH (09:00)
[2019-08-22] MEDS ORDERED: SELENIUM PO SCH (09:00)
[2019-08-22] MEDS ORDERED: FOLIC ACID PO SCH (09:00)
[2019-08-22] MEDS ORDERED: Pantoprazole TAB * 40 MG TAB PO SCH (09:00)
[2019-08-22] MEDS ORDERED: Aspirin 81 mg CHEW TAB* 81 MG TAB.CHEW PO SCH (09:00)
[2019-08-22] MEDS ORDERED: Atorvastatin* 20 MG TAB PO SCH (09:00)
[2019-08-22] MEDS ORDERED: Aliskiren TAB* 300 MG PO SCH (09:00)
[2019-08-22] MEDS ORDERED: Clopidogrel TAB* 75 MG PO SCH (09:00)
[2019-08-22] MEDS ORDERED: Carvedilol TAB* 25 MG PO SCH ×2 (09:00→18:00)
[2019-08-22] MEDS ORDERED: amLODIPine TAB* 5 MG PO SCH (09:00)
[2019-08-22] MEDS ORDERED: ZINC PO SCH (09:00)
[2019-08-22] MEDS ORDERED: Sertraline* 50 MG TAB PO SCH (09:00)
[2019-08-22] MEDS ORDERED: VITAMIN B COMPLEX PO SCH (09:00)
[2019-08-22] MEDS: Calcium Acetate CAP* 667 MG PO SCH ×2 (09:44→12:30)
--- NOTE | 2019-08-22 10:19 | PN ---
Progress Note - Progress Note Date of Service: 08/22/19 SOAP: Subjective: Patient complains of pain in the left upper extremity. She is unsure if it is better or worse than yesterday. Objective: AAO x [address] Clive PELAEZ: - I was able to start the examine with the patient asleep or groggy. She did have pain with full passive extension of the fingers. But she tolerated at least 50% PROM fingers without significant pain. - Bruising left forearm, wrist, hand. More swelling and bruising volar than was present yesterday. Quite significant. Some area of swelling, possible fluid deep to the laceration site and more proximal about the mid dorsal forearm. General tenderness about the forearm, wrist, hand. - CR < 2 seconds - No LAD, no erythematous skin or streaking erythema Selected Entries 08/21/19 08/21/19 08/22/19 13:56 23:27 03:42 Temperature 97.4 F 98.7 F 97.5 F Pulse Rate Respiratory Rate Blood Pressure (mmHg) O2 Sat by Pulse Oximetry 08/22/19 07:05 Temperature 98.3 F Pulse Rate 82 Respiratory 18 Rate Blood Pressure 127/59 (mmHg) O2 Sat by Pulse 100 Oximetry Laboratory Tests 08/21/19 08/21/19 08/22/19 14:22 14:22 05:40 WBC 9.4 5.5 Hct 22 L 19 L Neut % (Auto) 77.6 63.3 C-Reactive Protein 110.31 H Assessment: Laceration dorsum L hand Ecchymosis L forearm, wrist, hand with likely hematomas Possible infection- cellulitis or abscess ESRD in very poor health with admission for syncope Plan: - No sign of urgent need for surgery- compartment syndrome, infected joint, significant infected tenosynovitis - Discussed with patient aspiration of area of possible fluid collection on dorsal forearm- for decompression of hematoma for some symptom relief or detection of possible abscess. She was not eager to have this. I opted to hold off until tomorrow. - Patient can eat. - No clear sign of infection on exam, vitals, labs. Though given the amount of swelling and discomfort, this should be kept in the differential. - MRI hand and forearm to evaluate for fluid collection - Ortho will continue to follow - I placed a DSD, but held off on reapplying splint for comfort.
[2019-08-22] MEDS: Heparin VIAL(*) 5000 UNITS/ML VIAL (FIVE THOUSAND) SUBCUT SCH (10:49)
[2019-08-22] MEDS: HYDROcodone/ACETAMIN 5-325 MG* 1 TAB PO PRN (10:49)
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
[2019-08-22 13:30] VITALS: BP 103/59
--- NOTE | 2019-08-22 16:03 | TRS ---
TRANSFER SUMMARY: DATE OF ADMISSION: 08/21/19 DATE OF TRANSFER: 08/22/19 ATTENDING PHYSICIAN: Dr. Teixeira * (dictated by Claudy Akers NP). PRIMARY DIAGNOSES: 1. Respiratory failure. 2. Hypercapnia. 3. End-stage renal disease. 4. Anemia. 5. Left upper extremity cellulitis. HISTORY OF PRESENT ILLNESS/HOSPITAL COURSE: Mrs. Charles is a 58-year-old female with a past medical history significant for CHF, end-stage renal disease requiring dialysis, anxiety, depression, hypertension, GERD, polycystic kidney, brain aneurysm; who presented to the emergency room after she had a syncopal episode during dialysis. While in the emergency department, it was noted that the patient was significantly anemic with a hemoglobin and hematocrit of 7.3 and 22. In addition, she was requiring supplemental oxygen to maintain her O2 saturations. Given her syncopal episode and anemia, she was admitted to the hospital. Overnight, the patient receives BiPAP and this morning was lethargic and noting to be retaining CO2 with a pCO2 of 62. The patient's case was discussed with assistant cook, Dr. Tirado, who reports that yesterday the patient was due for dialysis and they were only able to remove a liter. He reports the patient is 4 to 5 L above baseline. He reports the patient also received fluid shortly after her syncopal episode. Given the patient's hypercapnia, she was placed on BiPAP and agreeable. Labs were repeated and H and H were 6.4 and 19 respectively. We discussed giving blood, but we ultimately decided to hold off given the patient's fluid volume overload. Given that we cannot provide dialysis here at [facility] on the weekend, we will be transferring the patient to [place] under the care of Dr. France. It should also be noted that the patient was admitted due to left upper extremity cellulitis and was started on Zosyn. Ortho was consulted, who recommended broad-spectrum antibiotics and MRI. He placed a nonadherent dressing over the patient's laceration. The patient did not have the MRI, but did receive Zosyn. She did not receive MRI as her other medical conditions became more severe. REVIEW OF SYSTEMS: The patient reports shortness of breath. The patient denies chest pain, fever, cough, nausea, vomiting, diarrhea, dysuria. PHYSICAL EXAMINATION: Vital Signs: Temp 98.6, HR 73, RR 24, O2 saturation 100 % on BiPAP, BP is 103/59. General: Mrs. Charles is lying on the ICU bed. She appears to be in no acute distress. Appears stated age. BiPAP is in place. HEENT: Sclerae without icterus. Oral mucosa is moist without lesion. Posterior pharynx is clear. Neck: Supple. Respiratory: The patient has significantly decreased airflow throughout. CV: Regular rate and rhythm. S1, S2 present. Extremities: Skin is warm and smooth bilaterally. No edema. Musculoskeletal: No pain or deformities. Abdomen: Abdomen is soft and nontender. Bowel sounds are normoactive. Neuro: The patient is alert and oriented x4. Muscle strength is 5/5 in the upper and lower extremities. Skin: The patient has an Eddie wrap to her left upper extremity due to a skin tear. LABORATORY DATA: WBC 5.5, hemoglobin 6.4, hematocrit 19, platelets 141. Sodium 136, potassium 3.6, chloride 100, carbon dioxide 30, BUN 23, creatinine 3.88. Troponin 0.03, this is down from 0.04. TRANSFER PLAN: Once again, the patient is being transferred by ambulance ALS with BiPAP for dialysis at [facility] under the care of Dr. France. This plan has been discussed with my attending, Dr. Teixeira, who is in agreement with my plan of care. CLAUDY AKERS, SNEHA [id number]/[facility] #: [id number] [facility] CENTERRenee
== END 2019-08-22 16:40 | disposition short-term general hospital (02) | DRG 189 ==
LOC: ED 13:36 → MEDTELE 20:16 → ICU 08-22 12:56
PROVIDERS: ADMIT Family Medicine; ATTEND Internal Medicine
PROC: 5A09357 Assistance with Respiratory Ventilation, Less than 24 Consecutive Hours, Continuous Positive Airway Pressure (ICD-10-PCS; principal; 2019-08-22)
DX: J96.92 Respiratory failure, unspecified with hypercapnia (principal); N18.6 End stage renal disease; 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 disease with heart failure and with stage 5 chronic kidney disease, or end stage renal disease; Q61.3 Polycystic kidney, unspecified; L03.114 Cellulitis of left upper limb; I67.1 Cerebral aneurysm, nonruptured; I50.9 Heart failure, unspecified; F41.9 Anxiety disorder, unspecified; D63.1 Anemia in chronic kidney disease; F32.9 Major depressive disorder, single episode, unspecified; K21.9 Gastro-esophageal reflux disease without esophagitis; J44.9 Chronic obstructive pulmonary disease, unspecified; S61.412A Laceration without foreign body of left hand, initial encounter; S60.222A Contusion of left hand, initial encounter; W22.03XA Walked into furniture, initial encounter; M85.832 Other specified disorders of bone density and structure, left forearm; Y92.129 Unspecified place in nursing home as the place of occurrence of the external cause; Z99.2 Dependence on renal dialysis; Z79.02 Long term (current) use of antithrombotics/antiplatelets; Z79.82 Long term (current) use of aspirin; Z79.899 Other long term (current) drug therapy; Z88.5 Allergy status to narcotic agent; Z91.048 Other nonmedicinal substance allergy status; Z84.1 Family history of disorders of kidney and ureter; Z82.61 Family history of arthritis; Z87.891 Personal history of nicotine dependence; Y92.9 Unspecified place or not applicable; Z86.73 Personal history of transient ischemic attack (TIA), and cerebral infarction without residual deficits; I25.2 Old myocardial infarction
CPT/HCPCS: 36415; 36600; 71045; 80048; 80053; 82803; 83605; 83735; 84484; 85025; 85610; 85730; 86140; 86850; 86900; 86901; 86922; 87040; 87641; 93005; 96365; 96375; 96376; 99285; A9270-GY; J1644; J2270; J2405; J2543; J3370